=== PATIENT | male | born 1950 | race Caucasian/White ===

== ENCOUNTER 2017-12-12 15:02 | Inpatient (IN) | payer MEDICARE, OTHER ==
[2017-12-12] VITALS (9 sets, daily range): BP systolic 92–197; BP diastolic 57–114
[~2017-12-12] VITALS: Ht 180.3 cm; Wt 79.9 kg
[~2017-12-12 15:02] MED LIST: ASP325T; ATN50T; ENLP5T; FLC1T; MULT1TAB63; POTASSIUM; RNT150T
[2017-12-12] MEDS ORDERED: fentaNYL INJECTION 100 MCG/2 ML AMP IVP STA ×3 (15:20→17:08)
--- OUTSIDE RECORDS SUMMARY | 2017-12-12 15:23 | XMS REPORT | Continuity of Care Document ---
Author Author [facility] Organization [facility] Address Unknown Phone Unavailable Allergies There is no data. Medications There is no data. Problems There is no data. Procedures There is no data. Results There is no data. Encounters ACCT No. Visit Date/Time Discharge Status Pt. Type Provider Facility Loc./Unit Complaint [id number] 01/02/2014 08:42:00 01/02/2014 23:59:59 CLS Outpatient
[2017-12-12] MEDS ORDERED: IOHEXOL 350 MG/ML 100 ML (OMNIPAQUE 350) VIAL IV ONE (16:00)
[2017-12-12] MEDS ORDERED: NS 250 ML (IVPB) BAG IV ONE (16:00)
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
[2017-12-12 16:35] LABS: HEMOGLOBIN 11.6 G/DL (13.3-17.7); MEAN PLATELET VOLUME 8.4 FL (7.4-10.4); RED BLOOD COUNT 3.5 10^6/uL (4.35-5.85); RED CELL DISTRIBUTION WIDTH 12.8 % (10.0-14.5); WHITE BLOOD COUNT 8.7 10^3/uL (4.3-11.0)
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
[2017-12-12] MEDS ORDERED: TETANUS,DIPTH,PERTUSS P/F (BOOSTRIX) 0.5 ML VIAL IM ONE (16:45)
[2017-12-12 16:52] LABS: FIBRIN DEGRADATION PRODUCTS 6.09 UG/ML (0.00-0.49); PROTHROMBIN TIME PATIENT 13.4 SEC (12.2-14.7)
[2017-12-12 16:54] LABS: ALANINE AMINOTRANSFERASE 18 U/L (0-55); ALBUMIN 3.8 GM/DL (3.2-4.5); ALKALINE PHOSPHATASE 48 U/L (40-136); BILIRUBIN,DIRECT 0.2 MG/DL (0.0-0.3); BILIRUBIN,INDIRECT 0.3 MG/DL; BILIRUBIN,TOTAL 0.5 MG/DL (0.1-1.0); BUN/CREATININE RATIO 8; CARBON DIOXIDE 25 MMOL/L (21-32); CHLORIDE 105 MMOL/L (98-107); CREATINE KINASE 195 U/L (30-200); CREATININE SERUM 1.32 MG/DL (0.60-1.30); GFR ESTIMATED 54; GLUCOSE 133 MG/DL (70-105); MAGNESIUM 2.2 MG/DL (1.8-2.4); PHOSPHORUS 3.8 MG/DL (2.3-4.7); POTASSIUM 4.6 MMOL/L (3.6-5.0); SODIUM 138 MMOL/L (135-145); TOTAL PROTEIN 6.1 GM/DL (6.4-8.2)
[2017-12-12] MEDS ORDERED: NS IV 1000 ML 1,000 ML ONE (17:44)
[2017-12-12] MEDS ORDERED: NS IV 1000 ML 1,000 ML IV ONE (17:47)
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
[2017-12-12] MEDS ORDERED: SUFENTA 0.6MCG/ML BUPIVA 0.125 100 ML ONE (18:13)
[2017-12-12] MEDS ORDERED: LACTATED RINGERS 1,000 ML IV ONE (18:36)
[2017-12-12] MEDS ORDERED: LIDOCAINE PF 2% 5 ML (XYLOCAINE) VIAL ONE ×2 (18:42)
[2017-12-12] MEDS ORDERED: METOCLOPRAMIDE INJ 10 MG/2 ML (REGLAN) IV PRN (18:45)
[2017-12-12] MEDS ORDERED: diphenhydrAMINE 50 MG/ML INJ (BENADRYL) IV PRN (18:45)
[2017-12-12] MEDS ORDERED: NALOXONE 0.4 MG/ML 1 ML (NARCAN) VIAL IV PRN ×2 (18:45)
[2017-12-12] MEDS: D5 1/2 NS W/KCL 20 MEQ/L 1,000 ML IV SCH (18:54)
[2017-12-12] MEDS ORDERED: CATHETER FLUSH 10 ML SYR IV PRN (19:00)
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
[2017-12-12] MEDS ORDERED: LIDOCAINE UROJET 2% GEL 10 ML PKG ONE (21:04)
[2017-12-12] MEDS: RT-ALBUTEROL SULF 2.5 MG/3 ML PRE-MIX VIAL INH SCH (21:15)
[2017-12-12] MEDS: MUPIROCIN 2% OINT 22 GM (BACTROBAN) TUBE TOP SCH (21:15)
[2017-12-12] MEDS ORDERED: NS IV 1000 ML 1,000 ML IV SCH (22:00)
[2017-12-13] VITALS (15 sets, daily range): BP systolic 128–176; BP diastolic 68–103
[2017-12-13] MEDS: RT-ALBUTEROL SULF 2.5 MG/3 ML PRE-MIX VIAL INH SCH ×6 (01:44→21:37)
[2017-12-13] MEDS ORDERED: HYDROcodone/APAP 5 MG/325 MG (LORTAB) TAB ONE (01:59)
[2017-12-13] MEDS: D5 1/2 NS W/KCL 20 MEQ/L 1,000 ML IV SCH ×2 (02:06→15:35)
[2017-12-13] MEDS: fentaNYL INJECTION 100 MCG/2 ML AMP IV PRN ×3 (02:08→21:49)
[2017-12-13] MEDS: HYDROcodone/APAP 5 MG/325 MG (LORTAB) TAB PO PRN ×4 (02:08→21:44)
[2017-12-13] MEDS: EPIDURAL (SUFENTA 0.6MCG/ML BUPIVA 0.125%) 100 ML BAG EPI PRN ×3 (04:02→21:22)
[2017-12-13 04:12] LABS: BASOPHILS % (AUTO) 0 % (0-10); EOSINOPHILS # (AUTO) 0.1 10^3/uL (0.0-0.3); EOSINOPHILS % (AUTO) 1 % (0-10); HEMATOCRIT 33 % (40-54); HEMOGLOBIN 11.1 G/DL (13.3-17.7); LYMPHOCYTES # (AUTO) 2.1 X 10^3 (1.0-4.0); LYMPHOCYTES % (AUTO) 22 % (12-44); MEAN CORPUSCULAR HEMOGLOBIN 33 PG (25-34); MEAN CORPUSCULAR HGB CONC 34 G/DL (32-36); MEAN CORPUSCULAR VOLUME 97 FL (80-99); MEAN PLATELET VOLUME 7.5 FL (7.4-10.4); MONOCYTES # (AUTO) 0.9 X 10^3 (0.0-1.0); MONOCYTES % (AUTO) 10 % (0-12); NEUTROPHILS # (AUTO) 6.3 X 10^3 (1.8-7.8); NEUTROPHILS % (AUTO) 67 % (42-75); PLATELET COUNT 272 10^3/uL (130-400); RED CELL DISTRIBUTION WIDTH 13.1 % (10.0-14.5); WHITE BLOOD COUNT 9.5 10^3/uL (4.3-11.0)
[2017-12-13 04:38] LABS: BUN/CREATININE RATIO 10; CALCIUM 8.5 MG/DL (8.5-10.1); CARBON DIOXIDE 22 MMOL/L (21-32); CHLORIDE 110 MMOL/L (98-107); CREATININE SERUM 0.79 MG/DL (0.60-1.30); GFR ESTIMATED > 60; GLUCOSE 116 MG/DL (70-105); MAGNESIUM 2.2 MG/DL (1.8-2.4); PHOSPHORUS 2.7 MG/DL (2.3-4.7); SODIUM 139 MMOL/L (135-145)
[2017-12-13] MEDS: KCL 20 MEQ TAB (K-DUR) PO SCH (05:30)
[2017-12-13] MEDS: POTASSIUM CL 10MEQ/50ML IVPB 50 ML IV SCH (05:30)
[2017-12-13] MEDS: MAGNESIUM 1 GM/100 ML IVPB 100 ML IV SCH (05:30)
[2017-12-13] MEDS ORDERED: FLU QUADRIvalent (5+ YOA) 2018-2019 (AFLURIA) 0.5 ML IM ONE (07:15)
--- NOTE | 2017-12-13 07:58 | Diagnostic Imaging Report ---
INDICATION: Followup rib fractures. COMPARISON: CT chest from 12/12/2017. FINDINGS: The left fourth through ninth rib fractures reported on CT scan are not visualized on the current portable chest. Both lungs are well-aerated. No pneumothorax or pleural effusions have developed. Heart is mildly enlarged. Median sternotomy changes are noted. No evidence of pulmonary edema. IMPRESSION: Noted left rib fractures on CT scan not visualized on the current portable chest. No evidence of associated complication with lungs well-aerated and clear. Dictated by: Dictated on workstation # [id number]
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
[2017-12-13] MEDS: MUPIROCIN 2% OINT 22 GM (BACTROBAN) TUBE TOP SCH ×2 (09:18→21:23)
[2017-12-13] MEDS ORDERED: CYCL10TA9 PO (10:52)
[2017-12-13] MEDS ORDERED: MULT1TAB69 PO (10:52)
[2017-12-13] MEDS ORDERED: ASPI-983 PO (10:52)
[2017-12-13] MEDS ORDERED: LOSA50TA7 PO (10:52)
[2017-12-13] MEDS ORDERED: SIMV40TA4 PO (11:28)
[2017-12-13] MEDS ORDERED: TAMS0.4C98 PO (11:28)
[2017-12-13] MEDS ORDERED: GABA-488 PO (11:28)
[2017-12-13] MEDS ORDERED: RT-ALBUINH IH (11:28)
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
[2017-12-13] MEDS: ONDANSETRON 4 MG/2 ML (SDV) Z0FRAN IV PRN (19:56)
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
[2017-12-14] VITALS (24 sets, daily range): BP systolic 87–177; BP diastolic 63–106
[2017-12-14] MEDS: RT-ALBUTEROL SULF 2.5 MG/3 ML PRE-MIX VIAL INH SCH ×6 (02:34→22:09)
[2017-12-14] MEDS: HYDROcodone/APAP 5 MG/325 MG (LORTAB) TAB PO PRN ×5 (02:49→23:56)
[2017-12-14] MEDS: fentaNYL INJECTION 100 MCG/2 ML AMP IV PRN ×10 (02:50→23:56)
[2017-12-14 04:16] LABS: BASOPHILS % (AUTO) 0 % (0-10); EOSINOPHILS # (AUTO) 0.4 10^3/uL (0.0-0.3); EOSINOPHILS % (AUTO) 4 % (0-10); HEMATOCRIT 32 % (40-54); HEMOGLOBIN 10.9 G/DL (13.3-17.7); LYMPHOCYTES # (AUTO) 2.2 X 10^3 (1.0-4.0); LYMPHOCYTES % (AUTO) 22 % (12-44); MEAN CORPUSCULAR HEMOGLOBIN 33 PG (25-34); MEAN CORPUSCULAR HGB CONC 34 G/DL (32-36); MEAN CORPUSCULAR VOLUME 98 FL (80-99); MEAN PLATELET VOLUME 8.1 FL (7.4-10.4); MONOCYTES % (AUTO) 10 % (0-12); NEUTROPHILS # (AUTO) 6.5 X 10^3 (1.8-7.8); NEUTROPHILS % (AUTO) 64 % (42-75); PLATELET COUNT 243 10^3/uL (130-400); RED BLOOD COUNT 3.26 10^6/uL (4.35-5.85); WHITE BLOOD COUNT 10.3 10^3/uL (4.3-11.0)
[2017-12-14 04:35] LABS: BUN/CREATININE RATIO 9; CALCIUM 8.3 MG/DL (8.5-10.1); CARBON DIOXIDE 22 MMOL/L (21-32); CHLORIDE 106 MMOL/L (98-107); GFR ESTIMATED > 60; GLUCOSE 108 MG/DL (70-105); MAGNESIUM 1.9 MG/DL (1.8-2.4); PHOSPHORUS 2.7 MG/DL (2.3-4.7); POTASSIUM 3.8 MMOL/L (3.6-5.0); SODIUM 136 MMOL/L (135-145)
[2017-12-14] MEDS: D5 1/2 NS W/KCL 20 MEQ/L 1,000 ML IV SCH (05:06)
[2017-12-14] MEDS: EPIDURAL (SUFENTA 0.6MCG/ML BUPIVA 0.125%) 100 ML BAG EPI PRN ×3 (06:27→23:57)
[2017-12-14] MEDS: MAGNESIUM 1 GM/100 ML IVPB 100 ML IV SCH (06:35)
[2017-12-14] MEDS: POTASSIUM CL 10MEQ/50ML IVPB 50 ML IV SCH (06:35)
[2017-12-14] MEDS: KCL 20 MEQ TAB (K-DUR) PO SCH (06:36)
--- NOTE | 2017-12-14 07:52 | Diagnostic Imaging Report ---
INDICATION: Rib fractures. FINDINGS: The lungs are clear. The heart and vascularity are normal. Sternal wires midline. Old deformity to the right clavicle, chronic. No effusion or pneumothorax. No free air beneath the diaphragm. IMPRESSION: No acute appearing abnormality. Dictated by: Dictated on workstation # [id number]
[2017-12-14] MEDS: MUPIROCIN 2% OINT 22 GM (BACTROBAN) TUBE TOP SCH ×2 (08:08→22:28)
--- NOTE | 2017-12-14 08:35 | Anesthesia Pain Mgmt-Epidural ---
Anesthesia-Pain Mgmnt Epidural Pre-Procedure Indication: Analgesia Chart Review and Risk/Benefits/Options Discussed Procedure Epidural: Continuous Block: Continuous Conditon: Good pain control Catheter Removed: Site clean Date of Service: Dec 14, 2017 Time of Service: 08:35 TIMA ZAMORA CRNA Dec 14, 2017 08:35
--- NOTE | 2017-12-14 09:41 | Physical Therapy Daily Note ---
PT Daily Note-Current Subjective Per RN, patient is not to perform OOB activity due to epidural. Patient agrees to exercises. Pain Numeric Pain Scale: 5-Moderate Pain Location: Right, Left Location Body Site: Side Pain Description: Pressure, Acute Mental Status Patient Orientation: Normal For Age Attachments: Oxygen, IV Transfers Functional [place] Measure 0=Not Assessed/NA 4=Minimal Assistance 1=Total Assistance 5=Supervision or Setup 2=Maximal Assistance 6=Modified [place] 3=Moderate Assistance 7=Complete IndependenceIRFPAI Quality Coding Scale 6 Independent with activity with or without an assistive device 5 Patient requires set up or clean up by helper. Patient completes activity by themselves 4 Supervision or touching assist (CGA). Dike provide cues , steadying assist 3 The helper provides less than half the effort to complete the activity 2 The helper provides more than half the effort to complete the activity 1 Dependent. The helper does all the effort to complete an activity 7 Patient refused to complete or attempt activity 9 The patient did not perform the activity before the current illness or injury 88 Not attempted due to Medical conditions or safety concerns Transfers (B, C, W/C) (FIM): 2 Scootin patient did assist with bed mobility to reposition. Exercises Supine Ex: Ankle pumps, Quad Set, Glut sets, Heel Slides, Straight leg raise, Hip abd/add Supine Reps: 15 (bilaterally) Assessment Patient was on RA upon PT arrival. SAO2 decreased to 85% on RA with exercises. PT placed O2 3L NC on patient with recovery to 95% after 1.5 min. RN notified. PT Short Term Goals Short Term Goals Time Frame: Dec 20, 2017 Transfers (B,C,W/C) (FIM): 5 Gait (FIM): 5 Gait Distance Comment: 150' Gait Level of Assist: 5 Gait Assistive Device: None PT Plan Treatment/Plan Treatment Plan: Continue Plan of Care Treatment Plan: Bed Mobility, Education, Functional Activity Yoanna, Functional Strength, Gait, Safety, Therapeutic Exercise, Transfers Treatment Duration: Dec 20, 2017 Frequency: 6 times per week Estimated Hrs Per Day: .25 hour per day (15-30') Patient and/or Family Agrees t: Yes Time/GCodes Time In: 841 Time Out: 906 Total Billed Treatment Time: 15 Total Billed Treatment 1 visit EX x 2 25 min KALLIE TOMLINSON PT Dec 14, 2017 09:40
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
[2017-12-14] MEDS ORDERED: LIDOCAINE PF 2% 5 ML (XYLOCAINE) VIAL ONE (14:24)
--- NOTE | 2017-12-14 14:54 | Progress Note-Standard ---
Standard Progress Note Progress Notes/Assess & Plan Date Seen by a Provider: Dec 14, 2017 Time Seen by a Provider: 14:42 Final Diagnosis Pt complaining of break thru pain. Dosed TEA cath with 10ml of 2% lidocaine. Parrish well. Report to RN. Focused Exam Lactate Level 12/12/17 15:10: Lactic Acid Level 0.86 TIMA ZAMORA CRNA Dec 14, 2017 14:54
[2017-12-14] MEDS ORDERED: NS IV 500 ML 500 ML ONE (14:56)
[2017-12-14] MEDS ORDERED: NS IV 1000 ML 500 ML IV ONE (15:00)
[2017-12-14] MEDS: ONDANSETRON 4 MG/2 ML (SDV) Z0FRAN IV PRN (15:03)
[2017-12-14] MEDS: CALCIUM CARBONATE 500 MG (TUMS) TAB.CHEW PO PRN (19:30)
[2017-12-14] MEDS ORDERED: HYDROmorphone 2 MG/ML VIAL (DILAUDID) IV PRN (21:45)
[2017-12-14] MEDS ORDERED: ALPRAZolam 0.5 MG (XANAX) TAB PO ONE (21:45)
[2017-12-14] MEDS: CYCLOBENZAPRINE 10 MG (FLEXERIL) TAB PO SCH (22:27)
[2017-12-15] VITALS (18 sets, daily range): BP systolic 104–182; BP diastolic 63–102
[2017-12-15] MEDS: CALCIUM CARBONATE 500 MG (TUMS) TAB.CHEW PO PRN (00:21)
[2017-12-15] MEDS ORDERED: PANTOPRAZOLE 40 MG (PROTONIX) TAB PO ONE (00:55)
[2017-12-15] MEDS: fentaNYL INJECTION 100 MCG/2 ML AMP IV PRN ×8 (01:04→23:52)
[2017-12-15] MEDS: RT-ALBUTEROL SULF 2.5 MG/3 ML PRE-MIX VIAL INH SCH ×6 (02:22→20:52)
[2017-12-15 03:24] LABS: BASOPHILS % (AUTO) 0 % (0-10); EOSINOPHILS # (AUTO) 0.5 10^3/uL (0.0-0.3); EOSINOPHILS % (AUTO) 6 % (0-10); HEMATOCRIT 33 % (40-54); LYMPHOCYTES # (AUTO) 2.1 X 10^3 (1.0-4.0); LYMPHOCYTES % (AUTO) 22 % (12-44); MEAN CORPUSCULAR HEMOGLOBIN 33 PG (25-34); MEAN CORPUSCULAR HGB CONC 33 G/DL (32-36); MEAN CORPUSCULAR VOLUME 99 FL (80-99); MONOCYTES % (AUTO) 11 % (0-12); NEUTROPHILS # (AUTO) 5.7 X 10^3 (1.8-7.8); NEUTROPHILS % (AUTO) 61 % (42-75); PLATELET COUNT 244 10^3/uL (130-400); RED BLOOD COUNT 3.38 10^6/uL (4.35-5.85); RED CELL DISTRIBUTION WIDTH 13.2 % (10.0-14.5); WHITE BLOOD COUNT 9.3 10^3/uL (4.3-11.0)
[2017-12-15] MEDS: HYDROcodone/APAP 5 MG/325 MG (LORTAB) TAB PO PRN ×2 (03:24→19:44)
[2017-12-15] MEDS: PANTOPRAZOLE 40 MG (PROTONIX) TAB PO SCH ×2 (03:25→21:47)
[2017-12-15 04:00] LABS: BUN/CREATININE RATIO 9; CALCIUM 8.8 MG/DL (8.5-10.1); CARBON DIOXIDE 26 MMOL/L (21-32); CHLORIDE 101 MMOL/L (98-107); CREATININE SERUM 0.68 MG/DL (0.60-1.30); GFR ESTIMATED > 60; GLUCOSE 117 MG/DL (70-105); MAGNESIUM 1.9 MG/DL (1.8-2.4); PHOSPHORUS 2.7 MG/DL (2.3-4.7); POTASSIUM 4.4 MMOL/L (3.6-5.0); SODIUM 133 MMOL/L (135-145)
[2017-12-15] MEDS: CYCLOBENZAPRINE 10 MG (FLEXERIL) TAB PO SCH ×3 (06:17→21:47)
[2017-12-15] MEDS: D5 1/2 NS W/KCL 20 MEQ/L 1,000 ML IV SCH ×3 (06:18→21:54)
[2017-12-15] MEDS: POTASSIUM CL 10MEQ/50ML IVPB 50 ML IV SCH ×2 (06:27→23:45)
[2017-12-15] MEDS: MAGNESIUM 1 GM/100 ML IVPB 100 ML IV SCH ×2 (06:28→23:45)
[2017-12-15] MEDS: KCL 20 MEQ TAB (K-DUR) PO SCH (06:28)
--- NOTE | 2017-12-15 07:08 | Diagnostic Imaging Report ---
INDICATION: Dyspnea. COMPARISON: 12/14/2017 FINDINGS: Single frontal view of the chest demonstrates normal heart size and pulmonary vascularity. The lungs are well aerated and clear. No large pleural effusion or pneumothorax is seen. The visualized osseous structures show no acute abnormalities. Sternotomy wires are again noted. IMPRESSION: 1. No acute cardiopulmonary process. Dictated by: Dictated on workstation # [id number]
[2017-12-15] MEDS: MUPIROCIN 2% OINT 22 GM (BACTROBAN) TUBE TOP SCH ×2 (08:00→21:48)
[2017-12-15] MEDS: EPIDURAL (SUFENTA 0.6MCG/ML BUPIVA 0.125%) 100 ML BAG EPI PRN (08:39)
--- NOTE | 2017-12-15 09:27 | Physical Therapy Daily Note ---
PT Daily Note-Current Subjective Patient agrees to PT. Continues to c/o acid reflux. PT issued a Coke which, per patient, helped. Pain Numeric Pain Scale: 5-Moderate Pain Location: Left Location Body Site: Side Pain Description: Acute Mental Status Patient Orientation: Normal For Age Attachments: Oxygen, Myers Catheter, IV Transfers Functional [place] Measure 0=Not Assessed/NA 4=Minimal Assistance 1=Total Assistance 5=Supervision or Setup 2=Maximal Assistance 6=Modified [place] 3=Moderate Assistance 7=Complete IndependenceIRFPAI Quality Coding Scale 6 Independent with activity with or without an assistive device 5 Patient requires set up or clean up by helper. Patient completes activity by themselves 4 Supervision or touching assist (CGA). Steger provide cues , steadying assist 3 The helper provides less than half the effort to complete the activity 2 The helper provides more than half the effort to complete the activity 1 Dependent. The helper does all the effort to complete an activity 7 Patient refused to complete or attempt activity 9 The patient did not perform the activity before the current illness or injury 88 Not attempted due to Medical conditions or safety concerns Transfers (B, C, W/C) (FIM): 5 Scootin Rollin Supine to/from Sit: 5 Sit to/from Stand: 5 Bed to/from Chair: 5 sit to stand x 4 sets all SBA with mobility Gait Training Gait (FIM): 1 Distance (FIM): 1=up to 49 ft Distance: 10' Gait Level of Assist: 5 Gait Assistive Device: FWW slow, steady, functional Exercises Seated Therapy Exercises: Ankle pumps, Long arc quads Seated Reps: 15 Assessment PT educated patient on utilizing a pillow hug to cough to increase SAO2 . PT did have to increase O2 to 3L to maintain 90% SAO2 with activity. PT Short Term Goals Short Term Goals Time Frame: Dec 20, 2017 Transfers (B,C,W/C) (FIM): 5 Gait (FIM): 5 Gait Distance Comment: 150' Gait Level of Assist: 5 Gait Assistive Device: None PT Plan Treatment/Plan Treatment Plan: Continue Plan of Care Treatment Plan: Bed Mobility, Education, Functional Activity Yoanna, Functional Strength, Gait, Safety, Therapeutic Exercise, Transfers Treatment Duration: Dec 20, 2017 Frequency: 6 times per week Estimated Hrs Per Day: .25 hour per day (15-30') Patient and/or Family Agrees t: Yes Time/GCodes Time In: 825 Time Out: 853 Total Billed Treatment Time: 28 Total Billed Treatment 1 visit FA x 2 28 min KALLIE TOMLINSON PT Dec 15, 2017 09:27
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
[2017-12-15] MEDS ORDERED: RT-ALBUTEROL SULF 2.5 MG/3 ML PRE-MIX VIAL INH PRN (12:00)
[2017-12-15] MEDS: DOCUSATE SODIUM 100 MG (COLACE) CAP PO SCH ×2 (12:39→21:47)
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
--- NOTE | 2017-12-15 16:27 | Progress Note-Standard ---
Standard Progress Note Progress Notes/Assess & Plan Date Seen by a Provider: Dec 15, 2017 Time Seen by a Provider: 15:05 Progress/Assessment & Plan Epidural Catheter removed without difficulty, Tip intact. DARIUS BENITEZ CRNA Dec 15, 2017 16:27
[2017-12-15] MEDS: POLYETHYLENE GLYCOL 17 GM (MIRALAX) PACK PO SCH (21:48)
[2017-12-16] VITALS (7 sets, daily range): BP systolic 145–196; BP diastolic 83–94
[2017-12-16] MEDS: RT-ALBUTEROL SULF 2.5 MG/3 ML PRE-MIX VIAL INH SCH ×6 (01:03→22:28)
[2017-12-16] MEDS ORDERED: morphine INJ 4 MG/ML 1 ML (VIAL/SYRINGE) ONE (01:27)
[2017-12-16] MEDS: morphine INJ 4 MG/ML 1 ML (VIAL/SYRINGE) IVP PRN ×3 (01:34→09:19)
[2017-12-16] MEDS: HYDROcodone/APAP 5 MG/325 MG (LORTAB) TAB PO PRN ×4 (03:45→20:36)
[2017-12-16 03:56] LABS: BASOPHILS % (AUTO) 0 % (0-10); EOSINOPHILS # (AUTO) 0.5 10^3/uL (0.0-0.3); EOSINOPHILS % (AUTO) 5 % (0-10); HEMATOCRIT 32 % (40-54); HEMOGLOBIN 11.2 G/DL (13.3-17.7); LYMPHOCYTES # (AUTO) 1.4 X 10^3 (1.0-4.0); LYMPHOCYTES % (AUTO) 17 % (12-44); MEAN CORPUSCULAR HEMOGLOBIN 34 PG (25-34); MEAN CORPUSCULAR HGB CONC 35 G/DL (32-36); MEAN CORPUSCULAR VOLUME 97 FL (80-99); MEAN PLATELET VOLUME 8.6 FL (7.4-10.4); MONOCYTES # (AUTO) 0.9 X 10^3 (0.0-1.0); MONOCYTES % (AUTO) 10 % (0-12); NEUTROPHILS # (AUTO) 5.6 X 10^3 (1.8-7.8); NEUTROPHILS % (AUTO) 67 % (42-75); PLATELET COUNT 234 10^3/uL (130-400); RED CELL DISTRIBUTION WIDTH 12.7 % (10.0-14.5); WHITE BLOOD COUNT 8.4 10^3/uL (4.3-11.0)
[2017-12-16 04:19] LABS: BUN/CREATININE RATIO 11; CALCIUM 8.7 MG/DL (8.5-10.1); CARBON DIOXIDE 25 MMOL/L (21-32); CHLORIDE 98 MMOL/L (98-107); CREATININE SERUM 0.63 MG/DL (0.60-1.30); GFR ESTIMATED > 60; GLUCOSE 116 MG/DL (70-105); MAGNESIUM 1.8 MG/DL (1.8-2.4); PHOSPHORUS 3.4 MG/DL (2.3-4.7); POTASSIUM 4.3 MMOL/L (3.6-5.0); SODIUM 132 MMOL/L (135-145)
[2017-12-16] MEDS: KCL 20 MEQ TAB (K-DUR) PO SCH (06:35)
[2017-12-16] MEDS: CYCLOBENZAPRINE 10 MG (FLEXERIL) TAB PO SCH ×3 (06:44→20:35)
--- NOTE | 2017-12-16 08:06 | Diagnostic Imaging Report ---
EXAM: CHEST 1 VIEW, AP/PA ONLY INDICATION: Dyspnea. COMPARISON: Chest radiograph 12/15/2017. FINDINGS: Normal heart size and central pulmonary vascularity. No dense consolidation, pleural effusion or pneumothorax. Calcified aorta. Sternotomy. No acute osseous findings. IMPRESSION: No acute cardiopulmonary findings. Dictated by: Dictated on workstation # [id number]
--- NOTE | 2017-12-16 08:57 | Physical Therapy Daily Note ---
PT Daily Note-Current Subjective States that he is feeling okay. Pain Numeric Pain Scale: 1 Transfers Functional [place] Measure 0=Not Assessed/NA 4=Minimal Assistance 1=Total Assistance 5=Supervision or Setup 2=Maximal Assistance 6=Modified [place] 3=Moderate Assistance 7=Complete IndependenceIRFPAI Quality Coding Scale 6 Independent with activity with or without an assistive device 5 Patient requires set up or clean up by helper. Patient completes activity by themselves 4 Supervision or touching assist (CGA). [place] provide cues , steadying assist 3 The helper provides less than half the effort to complete the activity 2 The helper provides more than half the effort to complete the activity 1 Dependent. The helper does all the effort to complete an activity 7 Patient refused to complete or attempt activity 9 The patient did not perform the activity before the current illness or injury 88 Not attempted due to Medical conditions or safety concerns Transfers (B, C, W/C) (FIM): 5 Scootin Rollin Supine to/from Sit: 5 Sit to/from Stand: 5 Gait Training Gait (FIM): 5 Distance (FIM): 6=296-84 ft Distance: 50' Gait Level of Assist: 5 Gait Persons Needed: 1 Gait Assistive Device: FWW Assessment Current Status: Good Progress Patient had increased pain and increased SOB during gait. PT Short Term Goals Short Term Goals Time Frame: Dec 20, 2017 Transfers (B,C,W/C) (FIM): 5 Gait (FIM): 5 Gait Distance Comment: 150' Gait Level of Assist: 5 Gait Assistive Device: None PT Plan Treatment/Plan Treatment Plan: Continue Plan of Care Treatment Plan: Bed Mobility, Education, Functional Activity Yoanna, Functional Strength, Gait, Safety, Therapeutic Exercise, Transfers Treatment Duration: Dec 20, 2017 Frequency: 6 times per week Estimated Hrs Per Day: .25 hour per day (15-30') Patient and/or Family Agrees t: Yes Time/GCodes Time In: 0825 Time Out: 0850 Total Billed Treatment Time: 25 Total Billed Treatment 1, GT x 15', FA x 10' G Codes Necessary: JONATHON Huertas PT Dec 16, 2017 08:57
[2017-12-16] MEDS: MUPIROCIN 2% OINT 22 GM (BACTROBAN) TUBE TOP SCH ×2 (09:15→20:38)
[2017-12-16] MEDS: POLYETHYLENE GLYCOL 17 GM (MIRALAX) PACK PO SCH ×2 (09:16→20:37)
[2017-12-16] MEDS: PANTOPRAZOLE 40 MG (PROTONIX) TAB PO SCH ×2 (09:16→20:35)
[2017-12-16] MEDS: DOCUSATE SODIUM 100 MG (COLACE) CAP PO SCH ×2 (09:16→20:35)
[2017-12-16] MEDS: D5 1/2 NS W/KCL 20 MEQ/L 1,000 ML IV SCH (11:10)
[2017-12-16] MEDS ORDERED: CYCLOBENZAPRINE 10 MG (FLEXERIL) TAB PO PRN (11:15)
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
[2017-12-16] MEDS: CALCIUM CARBONATE 500 MG (TUMS) TAB.CHEW PO PRN (11:29)
[2017-12-16] MEDS: ALPRAZolam 0.25 MG (XANAX) TAB PO PRN (12:58)
[2017-12-16] MEDS ORDERED: KETOROLAC 30 MG/ML VIAL IVP ONE (17:00)
[2017-12-17] MEDS: D5 1/2 NS W/KCL 20 MEQ/L 1,000 ML IV SCH (00:39)
[2017-12-17 00:59] VITALS: BP 144/91
[2017-12-17] MEDS: HYDROcodone/APAP 5 MG/325 MG (LORTAB) TAB PO PRN ×2 (02:40→09:34)
[2017-12-17] MEDS: RT-ALBUTEROL SULF 2.5 MG/3 ML PRE-MIX VIAL INH SCH ×3 (02:43→10:55)
[2017-12-17 04:17] VITALS: BP 164/88
[2017-12-17] MEDS: ALPRAZolam 0.25 MG (XANAX) TAB PO PRN (05:23)
[2017-12-17] MEDS: CYCLOBENZAPRINE 10 MG (FLEXERIL) TAB PO SCH (05:23)
--- NOTE | 2017-12-17 06:52 | Diagnostic Imaging Report ---
INDICATION: Dyspnea. COMPARISON: 12/16/2017 FINDINGS: Single frontal radiographic view of the chest was obtained and shows normal cardiac silhouette and pulmonary vasculature. There is calcified aortic atherosclerosis. Sternotomy wires are noted. Lateral right lung base is not entirely included on this exam, but included portions of the lungs are clear. There is no focal consolidation, large effusion, nor pneumothorax. Bony structures show no gross abnormalities. IMPRESSION: 1. No acute cardiopulmonary process. Dictated by: Dictated on workstation # [id number]
[2017-12-17 08:00] VITALS: BP 169/92
[2017-12-17] MEDS: DOCUSATE SODIUM 100 MG (COLACE) CAP PO SCH (08:34)
[2017-12-17] MEDS: PANTOPRAZOLE 40 MG (PROTONIX) TAB PO SCH (08:35)
[2017-12-17] MEDS: POLYETHYLENE GLYCOL 17 GM (MIRALAX) PACK PO SCH (08:35)
[2017-12-17] MEDS: MUPIROCIN 2% OINT 22 GM (BACTROBAN) TUBE TOP SCH (08:40)
[2017-12-17] MEDS ORDERED: ACHD5005 PO (10:13)
[2017-12-17] MEDS ORDERED: DOCU-143 PO (10:13)
[2017-12-17] MEDS ORDERED: CYCL10TA9 PO (10:13)
--- NOTE | 2017-12-17 10:16 | Discharge Inst-Simple/Standard ---
Discharge Inst-Standard Discharge Medications New, Converted or Re-Newed RX: RX on Chart Patient Instructions/Follow Up Plan of Care/Instructions/FU: 2 weeks Nohemi Activity as Tolerated: No Discharge Diet: Regular Diet Other Inst to Patient Follow up Appt: Make appointment for 2 week. Instructions: No lifting greater than 10 pounds. No strenuous activity. May shower. Use incentive spirometer at home as directed. No Smoking Symptoms to Report: Appetite Changes, Extremity Discoloration, Numbness/Tingling, Swelling Increased , Bleeding Excessive, Eyesight Changes, Pain Increased, Urine Color Change, Constipation(Persistent), Fever over 101 degree F, Pain/Pressure in chest, Urinating Difficulty, Cough Up/Vomit Blood, Heart Beat Irreg/Pounding, Pain/ Pressure in jaw, Vaginal Bleeding Increase, Cramps in feet or legs, Lightheadedness, Pain/Pressure in shoulder, Diarrhea(Persistent), Memory Changes Suddenly, Questions/Concerns, Weight gain consecutive days, Dizziness/ Fainting, Nausea/Vomiting, Shortness of Breath, Weight gain over 2 pounds If questions or concerns contact your physician Or seek help at emergency department. Planned Outpatient Orders/Ref. Pneu Vac Indicated: Yes PEPITO PIERRE DO Dec 17, 2017 10:16
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
[2017-12-17 12:00] VITALS: BP 174/98
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
== END 2017-12-17 12:15 | disposition home or self-care (01) | DRG 185 ==
LOC: ER 15:03 → EDUNIT# 15:18 → ER 15:20 → ICU 17:00 → 4TH 12-15 15:10
PROVIDERS: ADMIT Surgery; ATTEND Surgery
PROC: 00HU33Z Insertion of Infusion Device into Spinal Canal, Percutaneous Approach (ICD-10-PCS; principal; 2017-12-14)
DX: S22.42XA Multiple fractures of ribs, left side, initial encounter for closed fracture (principal); S01.312A Laceration without foreign body of left ear, initial encounter; S00.81XA Abrasion of other part of head, initial encounter; S39.012A Strain of muscle, fascia and tendon of lower back, initial encounter; S16.1XXA Strain of muscle, fascia and tendon at neck level, initial encounter; S29.002A Unspecified injury of muscle and tendon of back wall of thorax, initial encounter; S00.83XA Contusion of other part of head, initial encounter; Z23 Encounter for immunization; J43.9 Emphysema, unspecified; R40.2412 Glasgow coma scale score 13-15, at arrival to emergency department; I25.10 Atherosclerotic heart disease of native coronary artery without angina pectoris; I10 Essential (primary) hypertension; E78.00 Pure hypercholesterolemia, unspecified; M54.2 Cervicalgia; K21.9 Gastro-esophageal reflux disease without esophagitis; K58.9 Irritable bowel syndrome, unspecified; F41.9 Anxiety disorder, unspecified; F32.9 Major depressive disorder, single episode, unspecified; V44.5XXA Car driver injured in collision with heavy transport vehicle or bus in traffic accident, initial encounter; Z87.891 Personal history of nicotine dependence; Z95.1 Presence of aortocoronary bypass graft
CPT/HCPCS: 36415; 70450; 70486; 71045; 71260; 72125; 72128; 72131; 72170; 74177; 80048; 80076; 80320; 82550; 83605; 83735; 84100; 84484; 85025; 85027; 85379; 85384; 85610; 85730; 86850; 86900; 86901; 86920; 90471; 90715; 93005; 93041; 94640; 94664; 94760; 96361; 96374; 96376

== ENCOUNTER → 2018-08-01 | Outpatient (CLI) | payer MEDICARE, OTHER ==
[~2018-08-01] MED LIST changes: +ACHD5005 PO; +ASPI-983 PO; +CYCL10TA9 PO; +DOCU-143 PO; +GABA-488 PO; +LOSA50TA63 PO; +MULT1TAB69 PO; +RT-ALBUINH IH; +SIMV40TA4 PO; +TAMS0.4C98 PO
== END ==
LOC: ORTHO 10:19
PROVIDERS: ATTEND Orthopaedic Surgery
DX: M50.31 Other cervical disc degeneration, high cervical region (principal)
CPT/HCPCS: 99203

== ENCOUNTER 2019-08-16 02:35 | Inpatient (IN) | payer MEDICARE ==
[~2019-08-16] VITALS: Ht 180.3 cm; Wt 79.1 kg
[2019-08-16] VITALS (13 sets, daily range): BP systolic 138–200; BP diastolic 85–104
[~2019-08-16 02:35] MED LIST changes: +SIMV40TA25 PO; -SIMV40TA4 PO; -TAMS0.4C98 PO; +TMSL.4C PO
--- NOTE | 2019-08-16 02:35 | NUR ---
pt brought in by [facility] ems c/o chest pain waking him up from sleep. pt reports taking 3 sl ntg prior to ems arrival without improvement. ems gave pt 3 doses sl ntg en route with pain decreasing from 8 to 3. asa administered by ems.
--- NOTE | 2019-08-16 02:40 | NUR ---
pt reports intermittant chest pain x1 week resolving with ntg. denies seeking care for episodes prior to tonight.
[2019-08-16] MEDS ORDERED: SILD20TA14 PO (02:47)
[2019-08-16] MEDS ORDERED: SILD25TA9 PO (02:47)
[2019-08-16 02:53] LABS: BASOPHILS # (AUTO) 0.1 10^3/uL (0.0-0.1); BASOPHILS % (AUTO) 1 % (0-10); EOSINOPHILS # (AUTO) 0.3 10^3/uL (0.0-0.3); EOSINOPHILS % (AUTO) 5 % (0-10); HEMATOCRIT 34 % (40-54); HEMOGLOBIN 11.6 G/DL (13.3-17.7); LYMPHOCYTES # (AUTO) 3.2 X 10^3 (1.0-4.0); LYMPHOCYTES % (AUTO) 48 % (12-44); MEAN CORPUSCULAR HEMOGLOBIN 33 PG (25-34); MEAN CORPUSCULAR HGB CONC 34 G/DL (32-36); MEAN CORPUSCULAR VOLUME 97 FL (80-99); MONOCYTES # (AUTO) 0.7 X 10^3 (0.0-1.0); MONOCYTES % (AUTO) 11 % (0-12); NEUTROPHILS # (AUTO) 2.4 X 10^3 (1.8-7.8); NEUTROPHILS % (AUTO) 36 % (42-75); PLATELET COUNT 297 10^3/uL (130-400); RED CELL DISTRIBUTION WIDTH 12.4 % (10.0-14.5); WHITE BLOOD COUNT 6.8 10^3/uL (4.3-11.0)
[2019-08-16 03:00] LABS: ALBUMIN 3.9 GM/DL (3.2-4.5); CHLORIDE 103 MMOL/L (98-107); POTASSIUM 3.8 MMOL/L (3.6-5.0); PROTHROMBIN TIME PATIENT 13.4 SEC (12.2-14.7); SODIUM 137 MMOL/L (135-145)
[2019-08-16 03:01] LABS: CALCIUM 8.7 MG/DL (8.5-10.1)
[2019-08-16 03:02] LABS: GLUCOSE 108 MG/DL (70-105)
[2019-08-16 03:03] LABS: CARBON DIOXIDE 24 MMOL/L (21-32)
[2019-08-16 03:04] LABS: BILIRUBIN,TOTAL 0.4 MG/DL (0.1-1.0)
[2019-08-16 03:06] LABS: ALKALINE PHOSPHATASE 51 U/L (40-136); CREATININE SERUM 0.81 MG/DL (0.60-1.30); GFR ESTIMATED > 60
[2019-08-16 03:07] LABS: BUN/CREATININE RATIO 11
--- NOTE | 2019-08-16 03:07 | ED Chest Pain ---
General Chief Complaint: Chest Pain Stated Complaint: CP Nursing Triage Note: BROUGHT IN BY [facility] C/O CHEST PAIN. PT REPORTS INTERMITTANT CHEST PAIN X 7 DAYS. STATES PAIN WOKE HIM UP FROM SLEEP TONIGHT. Nursing Sepsis Screen: No Definite Risk Source: patient Exam Limitations: no limitations History of Present Illness Date Seen by Provider: Aug 16, 2019 Time Seen by Provider: 02:38 Initial Comments This 68-year-old gentleman presents to the emergency room with pain in his shoulders, upper back, and neck that woke him from sleep. He took 3 nitroglycerin at home with minimal improvement. Does nitroglycerin were several years old. EMS administered nitroglycerin which dropped his pain from 8/10 down to 3/10. Aspirin 324 mg was also administered. Patient reports intermittent chest pain in recent days for which he has been taking nitroglycerin without benefit. He has history of coronary artery disease status post CABG in 2005. His primary care providers Dr. Orr in [place]. He does not follow with a informatics pharmacist. He presents from home via [facility]. Allergies and Home Medications Allergies Coded Allergies: No Known Drug Allergies (Unverified , 12/12/17) Home Medications Albuterol Sulfate 1 Puff Puff, 2 PUFF IH BID PRN for SHORTNESS OF BREATH, (Reported) 1 PUFF = 90 MCG Aspirin 81 Mg Tablet.dr, 81 MG PO DAILY, (Reported) Cyclobenzaprine HCl 10 Mg Tablet, 10 MG PO Q8HR Prescribed by: PEPITO PIERRE on 12/17/17 1013 Docusate Sodium 100 Mg Capsule, 100 MG PO BID Prescribed by: PEPITO PIERRE on 12/17/17 1013 Gabapentin 300 Mg Capsule, 1,500 MG PO HS, (Reported) TAKES 5 (300MG) CAPSULES Hydrocodone Bit/Acetaminophen 1 Tab Tab, 1-2 TAB PO Q6HR PRN for PAIN-MODERATE Prescribed by: PEPITO PIERRE on 12/17/17 1013 Losartan Potassium 50 Mg Tablet, 50 MG PO DAILY, (Reported) Multivitamin 1 Each Tablet, 1 TAB PO DAILY, (Reported) Simvastatin 40 Mg Tablet, 20 MG PO HS, (Reported) TAKES 1/2 (40MG) TABLET Tamsulosin HCl 0.4 Mg Cap, 0.4 MG PO HS, (Reported) Patient Home Medication List Home Medication List Reviewed: Yes Review of Systems Review of Systems Constitutional: no symptoms reported EENTM: No Symptoms Reported Respiratory: No Symptoms Reported Cardiovascular: See HPI Gastrointestinal: No Symptoms Reported Genitourinary: No Symptoms Reported Musculoskeletal: see HPI Skin: no symptoms reported Psychiatric/Neurological: No Symptoms Reported Endocrine: No Symptoms Reported Hematologic/Lymphatic: No Symptoms Reported Past Dtlkydo-Emvrue-Ypwuow Hx Past Med/Social Hx: Reviewed Nursing Past Med/Soc Hx Patient Social History Alcohol Use: Denies Use Recreational Drug Use: No Drug of Choice: denies Smoking Status: Former Smoker Type Used: Cigarettes Former Smoker, Quit: Dec 13, 2016 2nd Hand Smoke Exposure: No Recent Foreign Travel: No Contact w/Someone Who Travel: No Recent Infectious Disease Expo: No Recent Hopitalizations: No Physical Abuse: No Sexual Abuse: No Mistreated: No Fear: No Immunizations Up To Date Tetanus Booster (TDap): Unknown Seasonal Allergies Seasonal Allergies: No Past Medical History Surgeries: Yes (CABG,PANCREAS SURGERY,VASECTOMY, STENTS) Abdominal, Cardiac, CABG, Vasectomy Respiratory: Yes COPD, Emphysema Currently Using CPAP: No Currently Using BIPAP: No Cardiac: Yes Coronary Artery Disease, Heart Attack, High Cholesterol, Hypertension Neurological: No Reproductive Disorders: No Genitourinary: No Gastrointestinal: Yes Gastroesophageal Reflux, Esophageal Varices, Irritable Bowel Musculoskeletal: Yes (CHRONIC NECK AND BACK PAIN ) Degenerate Disk Disease, Chronic Back Pain, Fractures Endocrine: No HEENT: Yes Loss of Vision: Denies Hearing Impairment: Denies Cancer: No Psychosocial: Yes Anxiety, Depression Integumentary: No Blood Disorders: No Family Medical History Reviewed Nursing Family Hx No Pertinent Family Hx Physical Exam Vital Signs Vital Signs - First Documented Capillary Refill : Less Than 3 Seconds Height, Weight, BMI Height: 5'11.00" Weight: 176lbs. 1.6oz. [id number]; 24.00 BMI Method: General Appearance: No Apparent Distress, WD/WN HEENT: PERRL/EOMI, Normal ENT Inspection Neck: Normal Inspection Respiratory: Chest Non Tender, Lungs Clear, Normal Breath Sounds, No Accessory Muscle Use, No Respiratory Distress, Other (CABG scar across the chest) Cardiovascular: Regular Rate, Rhythm, No Edema, No Murmur, Normal Peripheral Pulses Gastrointestinal: Normal Bowel Sounds, Non Tender, Soft Extremity: Normal Inspection, Non Tender, No Calf Tenderness, No Pedal Edema Neurologic/Psychiatric: Alert, Oriented x3, No Motor/Sensory Deficits, Normal Mood/Affect, 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 Norm as Tested Skin: Normal Color, Warm/Dry Progress/Results/Core Measures Results/Orders Lab Results Laboratory Tests Test 08/16/19 02:43 Range/Units White Blood Count 6.8 4.3-11.0 10^3/uL Red Blood Count 3.47 L 4.35-5.85 10^6/uL Hemoglobin 11.6 L 13.3-17.7 G/DL Hematocrit 34 L 40-54 % Mean Corpuscular Volume 97 80-99 FL Mean Corpuscular Hemoglobin 33 25-34 PG Mean Corpuscular Hemoglobin Concent 34 32-36 G/DL Red Cell Distribution Width 12.4 10.0-14.5 % Platelet Count 297 130-400 10^3/uL Mean Platelet Volume 8.0 7.4-10.4 FL Neutrophils (%) (Auto) 36 L 42-75 % Lymphocytes (%) (Auto) 48 H 12-44 % Monocytes (%) (Auto) 11 0-12 % Eosinophils (%) (Auto) 5 0-10 % Basophils (%) (Auto) 1 0-10 % Neutrophils # (Auto) 2.4 1.8-7.8 X 10^3 Lymphocytes # (Auto) 3.2 1.0-4.0 X 10^3 Monocytes # (Auto) 0.7 0.0-1.0 X 10^3 Eosinophils # (Auto) 0.3 0.0-0.3 10^3/uL Basophils # (Auto) 0.1 0.0-0.1 10^3/uL Prothrombin Time 13.4 12.2-14.7 SEC INR Comment 1.0 0.8-1.4 Activated Partial Thromboplast Time 23 L 24-35 SEC Sodium Level 137 135-145 MMOL/L Potassium Level 3.8 3.6-5.0 MMOL/L Chloride Level 103 98-107 MMOL/L Carbon Dioxide Level 24 21-32 MMOL/L Anion Gap 10 5-14 MMOL/L Blood Urea Nitrogen 9 7-18 MG/DL Creatinine 0.81 0.60-1.30 MG/DL Estimat Glomerular Filtration Rate > 60 BUN/Creatinine Ratio 11 Glucose Level 108 H 70-105 MG/DL Calcium Level 8.7 8.5-10.1 MG/DL Corrected Calcium 8.8 8.5-10.1 MG/DL Magnesium Level 1.9 1.6-2.4 MG/DL Total Bilirubin 0.4 0.1-1.0 MG/DL Aspartate Amino Transf (AST/SGOT) 15 5-34 U/L Alanine Aminotransferase (ALT/SGPT) 10 0-55 U/L Alkaline Phosphatase 51 40-136 U/L Myoglobin 63.5 10.0-92.0 NG/ML Troponin I 0.067 H <0.028 NG/ML Total Protein 6.0 L 6.4-8.2 GM/DL Albumin 3.9 3.2-4.5 GM/DL My Orders Orders - DIPESH MARCANO MD Cbc With Automated Diff (08/16/19 02:47) Magnesium (08/16/19 02:47) Chest 1 View, Ap/Pa Only (08/16/19 02:47) Ekg Tracing (08/16/19 02:47) Comprehensive Metabolic Panel (08/16/19 02:47) Myoglobin Serum (08/16/19 02:47) Protime With Inr (08/16/19 02:47) Partial Thromboplastin Time (08/16/19 02:47) O2 (08/16/19 02:47) Monitor-Rhythm Ecg Trace Only (08/16/19 02:47) Lipid Panel (08/17/19 06:00) Ed Iv/Invasive Line Start (08/16/19 02:47) Troponin I (08/16/19 02:47) Nitroglycerin Ointment (Nitrobid Ointme (08/16/19 03:30) Morphine Injection (Morphine Injection (08/16/19 03:29) Medications Given in ED Current Medications Medications Dose Ordered Sig/[place] Route Start Time Stop Time Status Last Admin Dose Admin Nitroglycerin 1 inch ONCE ONCE TOP 08/16/19 03:30 08/16/19 03:31 DC 08/16/19 03:35 1 INCH Vital Signs/I&O 08/16/19 08/16/19 08/16/19 02:35 02:35 02:35 Temp 36.5 Pulse 64 Resp 16 B/P (MAP) 154/96 (115) Pulse Ox 100 100 O2 Delivery Nasal Cannula Nasal Cannula Nasal Cannula O2 Flow Rate 3.0 3.0 3.00 Blood Pressure Mean: 115 Progress Progress Note #1: Time: 03:08 Progress Note Patient seen and examined. EKG unremarkable. Chest x-ray unchanged from prior. Pain minimal at this time. Progress Note #2: Time: 03:37 Progress Note Troponin returned slightly elevated. Patient is still having some mild pain rated as 2/10. Blood pressure is still significantly elevated. Nitro paste was ordered along with morphine [address] De La Garza accepts admission to the ICU. Dr. York notified. Initial ECG Impression Date: Aug 16, 2019 Initial ECG Impression Time: 02:36 Initial ECG Rate: 55 Initial ECG Rhythm: Normal Sinus Initial ECG Intervals: Normal Initial ECG Impression: Normal Comment Normal sinus rhythm with no ST elevation or depression. No abnormal intervals or axis deviation. Low voltage and extremity leads. Diagnostic Imaging Diagonstic Imaging: Xray Plain Films/CT/US/NM/MRI: chest Comments Chest x-ray viewed by me and compared with prior. No acute changes appreciated. Report not yet available. Departure Communication (Admissions) Time/Spoke to Admitting Phy: 03:30 Dr. De La Garza Time/Spoke to Consulting Phy: 03:25 Dr. York Impression Primary Impression: NSTEMI (non-ST elevated myocardial infarction) Additional Impression: CAD (coronary artery disease) Qualified Codes: I25.10 - Atherosclerotic heart disease of [place] coronary artery without angina pectoris Disposition: 09 ADMITTED INPATIENT Condition: Improved Admissions Decision to Admit Reason: Admit from ER (General) Decision to Admit/Date: Aug 16, 2019 Time/Decision to Admit Time: 03:20 Departure-Patient Inst. Referrals: NO,LOCAL PHYSICIAN (PCP/Family) Primary Care Physician DIPESH MARCANO MD Aug 16, 2019 03:07
[2019-08-16 03:09] LABS: ALANINE AMINOTRANSFERASE 10 U/L (0-55); MAGNESIUM 1.9 MG/DL (1.6-2.4)
[2019-08-16] MEDS ORDERED: morphine INJ 10 MG/ML 1ML (SYR OR VIAL) IVP STA ×2 (03:29→05:04)
[2019-08-16] MEDS ORDERED: NITROGLYCERIN 2% OINT 1 GM UNIT DOSE PACKET TOP ONE (03:30)
--- NOTE | 2019-08-16 03:39 | NUR ---
agricultural chemist unable to take report at this time.
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
--- OUTSIDE RECORDS SUMMARY | 2019-08-16 03:52 | XMS REPORT | Encounter Summary ---
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 This section includes the names of all active insurance providers for the jagruti infante Insurance Provider Type of Coverage Plan Name Start of Policy Co verage End of Policy Coverage Group Number Member ID Insurance Provider's Telephone N umber Policy Hernandez's Name Patient's Relationship to Policy Hernandez MEDICARE (WNR) MEDICARE (M) PART B Apr 13, 2007 PART B [id number] [phone] JUAN MANUEL MARTIN PATIENT MEDICARE (WNR) MEDICARE (M) PART B Apr 13, 2007 PART B [id number] [phone] JUAN MANUEL MARTIN PATIENT MEDICARE (WNR) MEDICARE (M) PART A Sep 10, 2005 PART A [id number] [phone] JUAN MANUEL MARTIN PATIENT MEDICARE (WNR) MEDICARE (M) PART A Sep 10, 2005 PART A [id number] JUAN MANUEL MARTIN PATIENT MEDICARE (WNR) MEDICARE (M) PART A Sep 10, 2005 PART A [id number] MARTINJUAN MANUEL PATIENT Selected Encounter This section includes the information on record at NE for the Encounter. Date/Time Encounter Type Encounter Description Reason Provider Source Feb 08, 2019 10:43 AM Outpatient Encounter PRIMARY CARE/MEDICINE [facility] IHE Encounter Template Text not used by VA Assessments - Encounter Diagnoses No Data Provided for This Section Plan of Treatment: Future Appointments (+ 6 months) and Future Tests (+/- 45 day s) No Data Provided for This Section Surgical Procedures: All associated to the encounter No Data Provided for This Section Lab Results: +/- 30 days of the encounter This section includes the Chemistry and Hematology Lab R esults on record with VA for the patient. Radiology Reports and Pathology Report s are provided separately, in subsequent sections. Lab Results This section contains the Chemistry/Hematology Results kenyatta t were resulted 30 days before or 30 days after the date of the Encounter. Date/Time Source Result Type Result - Unit Interpretation Reference Range Comment Jan 23, 2019 09:15 AM [facility] IRON/TIBC Specimen Type: SERUM No comment entered. TOTAL IRON BINDING CAPACITY 285 ug/dL 25 0-450 TRANSFERRIN 228 mg/dL 163-344 IRON SAT.CALC 60 % IRON-TOTAL 172 ug/dL 65-175 Jan 23, 2019 09:15 AM [facility] FERRITIN Specimen Type: SERUM No comment entered. FERRITIN 182.4 ng/mL 22-275 Jan 23, 2019 09:15 AM [facility] VITAMIN B12 Specimen Type: SERUM No comment entered. VITAMIN B12 310 pg/mL 213-816 Jan 23, 2019 09:15 AM [facility] FOLATE Specimen Type: SERUM No comment entered. FOLATE 18.5 ng/mL 7.0-20.0 Jan 15, 2019 09:32 AM [facility] OCCULT BLOOD FIT X1 SCREEN Specimen Type: FECES No comment entered. OCCULT BLOOD (FIT) #1 OF 1 POSITIVE HH Neg ative Vital Signs: All taken on the encounter date No Data Provided for This Section Immunizations: All administered on the encounter date No Data Provided for This Section Social History: Smoking Status (Most current) and Tobacco Use (All prior to enco unter date) This section includes the most current, and the historical, smoking and tobacco- related health factors from the NE facility where the Encounter took place. Current Smoking Status This section includes the most current smoking, or tobacco -related health factor, from the NE facility where the Encounter took place. Date/Time Current Smoking Status Comment Facility Jan 02, 2019 08:20 AM NON-TOBACCO USER [facility] Tobacco Use History This section includes a history of the smoking, or tobacco -related health factors, that were collected on or before the date of the Encoun ter. The data comes from the NE facility where the Encounter took place. Date/Time Smoking Status/Tobacco Use Comment Leanna barbosa May 28, 2018 11:45 AM VA-TOBACCO FORMER USER [facility] May 28, 2018 11:45 AM VA-TOBACCO QUIT 15 YRS OR MORE JEVON NS [facility] Dec 25, 2017 02:23 PM NON-TOBACCO USER [facility] Jan 25, 2017 09:53 AM NON-TOBACCO USER [facility] Dec 22, 2015 09:45 AM NON-TOBACCO USER KO [facility] Advance Directives: All historical and current Section Date Range: From patient's date of to the date document was create d. This section includes ALL of a patient's completed or amen ded VA Advance and Rescinded Directives. The entries below indicate that a direc tive exists for the patient, but an actual copy is not included with this docume nt. The data comes from all [place] facilities. Date Advance Directives Provider Source Jan 02, 2018 ADVANCE DIRECTIVE DISCUSSION FLO KRUEGER [facility] Oct 17, 2000 ADVANCE DIRECTIVE EUNICE RODRIGUEZ [facility], VISN 15 Allergies and Adverse Reactions (ADRs): All historical and current Section Date Range: From patient's date of to the date document was create d. This section includes Allergies and Adverse Reactions (ADR s) on record with VA for the patient. The data comes from a ll NE treatment facilities. It does not list Allergies/ADRs that were removed or entered in error. Some allergies/ADRs may be reported in t he Immunization section. Allergen Event Date Event Type Reaction(s) Severity Source No Known Allergies [facility] No Allergy Assessment on File [facility] Medications: VA dispensed (-15 months) and Non-VA Documented (Obtained Outside V A) Section Date Range: 1) prescriptions processed by a VA pharmacy in the last 15 m ont, and 2) all medications recorded in the NE medical record as "non-VA medic ations". Pharmacy terms refer to NE pharmacy's work on prescriptions. VA patient s are advised to take their medications as instructed by their health care team. The data comes from all NE treatment facilities. Glossary of Pharmacy Terms:Active = A prescription that can be filled at the local NE pharmacy.Active: On Hold = An active prescription that will not be filled until pharmacy resolves the issue.Active: Susp = An active prescription that is not scheduled to be filled yet.Clinic Order = A medication received during a visit to a NE clinic or emergency department (currently not available).Discontinued = A prescription stopped by a NE provider. It is no longer available to be filled. = A prescription which is too old to fill. This does not refer to the expiration date of the medication in the container. Non-VA = A medication that came from someplace other than a VA pharmacy. This may be a prescription from either the NE or other providers that was filled outside the NE. Or, it may be an over the counter (OTC), herbal, dietary supplement or sample medication.Pending = This prescription order has been sent to the Pharmacy for review and is not ready yet. Medication Name and Strength Pharmacy Term Instructions Quantity Or dered Prescription Expires Prescription Number Last Dispense Date Ordering Provider Facility ALBUTEROL SO4 0.083% INHL,3ML Active USE 3 MLS IN NEBULIZER FOR INHALATION TWO TIMES A DAY NEEDED 180 Jan 09, 2020 [id number] Apr 10, 2019 MAK VILLEDA [facility] ALBUTEROL SO4 0.083% INHL,3ML Discontinued USE 3 MLS IN NEBULIZER FOR INHALATION TWO TIMES A DAY NEEDED 180 Jan 27, 2019 [id number] Nov 01, 2018 BRITTANEY VENEGAS [facility] ALBUTEROL SO4 90MCG/ACTUAT (CFC-F) INHL,ORAL,6.7GM Active INHALE 2 PUFFS BY ORAL INHALATION TWO TIMES A DAY NEEDED - RINSE MOUTHPIECE FREQUENTLY TO PREVENT CLOGGING 2 Aug 30, 2019 [id number] Mar 18, 2019 BRITTANEY VILLEDA [facility] ALBUTEROL SO4 90MCG/ACTUAT (CFC-F) INHL,ORAL,6.7GM Discontin ued INHALE 2 PUFFS BY ORAL INHALATION TWO TIMES A DAY NEEDED - RINSE MOUTHPIECE FREQUENTLY TO PREVENT CLOGGING 2 Mar 27, 2019 [id number] Aug 30, 2018 BRITTANEY VILLEDA BUDESONIDE 80MCG/FORMOTEROL FUM 4.5MCG/SPRAY INHL,ORAL,10.2G M Active INHALE 2 PUFFS BY ORAL INHALATION TWO TIMES A DAY FOR BREATHING. SHAKE WELL. RINSE MOUTH AND SPIT AFTER EACH USE. 3 Jun 24, 2020 [id number] Jun 24, 2019 BRITTANEY VILLEDA BUDESONIDE 80MCG/FORMOTEROL FUM 4.5MCG/SPRAY INHL,ORAL,10.2G M Discontinued INHALE 2 PUFFS BY ORAL INHALATION TWO TIMES A DAY FOR BREATHING. SHAKE WELL. RINSE MOUTH AND SPIT AFTER EACH USE. 3 Dec 07, 2019 [id number] Mar 18, 2019 BRITTANEY VILLEAD FERROUS SO4 324MG TAB,EC Active TAKE ONE TABLET BY MOUTH TWO TIMES A DAY FOR IRON SUPPLEMENTATION. MAY TAKE WITH FOOD IF NOT TOLERATED ON EMPTY STOMACH 200 Jan 09, 2020 [id number] Apr 23, 2019 BRITTANEY VILLEDA FERROUS SO4 324MG TAB,EC Discontinued TAKE ONE TABLET BY MOUTH TWO TIMES A DAY FOR IRON SUPPLEMENTATION. MAY TAKE WITH FOOD IF NOT TOLERATED ON EMPTY STOMACH 200 May 02, 2019 [id number] Nov 14, 2018 BRITTANEY VILLEDA C FOLIC ACID 1MG TAB Active TAKE ONE TABLET BY MOUTH ONCE A DAY 90 Nov 22, 2019 [id number] Mar 18, 2019 BRITTANEY VILLEDA FOLIC ACID 1MG TAB Discontinued TAKE ONE TABLET BY MOUTH ONCE A DAY 90 May 02, 2019 [id number] Sep 26, 2018 BRITTANEY VILLEDA GABAPENTIN 300MG CAP Discontinued TAKE 2 CAPSULES BY MOUTH FOUR TITO ES A DAY 720 Jan 27, 2019 [id number] Nov 14, 2018 BRITTANEY VILLEDA GABAPENTIN 400MG CAP Active TAKE 1 CAPSULE BY MOUTH THREE TITO ES A DAY 270 Dec 07, 2019 [id number] Mar 18, 2019 BRITTANEY VILLEDA HYDROCODONE 10MG/ACETAMINOPHEN 325MG TAB Non-VA TAKE ONE TABLET BY MOUTH FOUR TIMES A DAY Non-VA Documented by: RAMY TRENT nted at: STEFANI SPAIN LISINOPRIL 10MG TAB Discontinued TAKE ONE-HALF TABLET BY MOUTH EVERY MORNING FOR HEART OR HIGH BLOOD PRESSURE 15 Jun 01, 2019 [id number] Jun 02, 2018 BRITTANEY VILLEDA [facility] LOSARTAN 25MG TAB Active TAKE ONE TABLET BY MOUTH ONCE A DAY FOR BLOOD PRESSURE 90 Jan 09, 2020 [id number] Apr 23, 2019 BRITTANEY VILLEDA C LOSARTAN 25MG TAB Discontinued TAKE ONE TABLET BY M OUTH ONCE A DAY FOR BLOOD PRESSURE 90 July 13, 2019 [id number] Nov 14, 2018 TIERRA KWONG [facility] MELOXICAM 15MG TAB TAKE ONE TABLET BY M OUTH ONCE A DAY FOR PAIN OR INFLAMMATION. 90 Jun 01, 2019 [id number] Mar 18, 2019 BRITTANEY VILLEDA METOPROLOL TARTRATE 25MG TAB Active TAKE ONE-SMITH LF TABLET BY MOUTH TWO TIMES A DAY FOR HEART/BLOOD PRESSURE. TAKE WITH OR IMMEDIATELY FOLLOWING FOOD. 90 Jan 09, 2020 [id number] Apr 23, 2019 BRITTANEY VILLEDA METOPROLOL TARTRATE 25MG TAB Discontinued TAKE ONE-SMITH LF TABLET BY MOUTH TWO TIMES A DAY FOR HEART/BLOOD PRESSURE. TAKE WITH OR IMMEDIATELY FOLLOWING FOOD. 90 July 13, 2019 [id number] Nov 14, 2018 [facility] SIMVASTATIN 40MG TAB Active TAKE ONE-HALF TABLE T BY MOUTH AT BEDTIME FOR CHOLESTEROL - REPORT ANY UNEXPLAINED MUSCLE PAIN OR WEAKNESS TO YOUR PROVIDER 45 Sep 27, 2019 [id number] Jun 24, 2019 BRITTANEY VILLEDA C SIMVASTATIN 40MG TAB Discontinued TAKE ONE-HALF TABLE T BY MOUTH AT BEDTIME FOR CHOLESTEROL - REPORT ANY UNEXPLAINED MUSCLE PAIN OR WEAKNESS TO YOUR PROVIDER 45 Sep 23, 2018 [id number] Jul 05, 2018 BRITTANEY VILLEDA C TAMSULOSIN HCL 0.4MG CAP Discontinued TAKE ONE CAPSUL E BY MOUTH ONCE A DAY FOR PROSTATE. TAKE AT THE SAME TIME EACH DAY WITH FOOD. Jun 17 9 [id number] Jun 14, 2018 BRITTANEY VILLEDA TAMSULOSIN HCL 0.4MG CAP TAKE ONE CAPSUL E BY MOUTH ONCE A DAY FOR PROSTATE. TAKE AT THE SAME TIME EACH DAY WITH FOOD. August 01 0 [id number] Jun 24, 2019 BRITTANEY VILLEDA TIOTROPIUM 2.5MCG/ACTUAT INHL,ORAL,60D,4GM Active INHALE 2 PUFFS BY ORAL INHALATION ONCE A DAY FOR BREATHING. DON'T USE WITH IPRATROPIUM - REPLACES ADVAIR. 3 Jun 24, 2020 [id number] Jun 24, 2019 BRITTANEY VILLEDA ONS CB TIOTROPIUM 2.5MCG/ACTUAT INHL,ORAL,60D,4GM Discontinued INHALE 2 PUFFS BY ORAL INHALATION ONCE A DAY FOR BREATHING. DON'T USE WITH IPRATROPIUM - REPLACES ADVAIR. 3 Oct 13, 2019 [id number] Mar 18, 2019 BRITTANEY VILLEDA [facility] Problems (Conditions): All historical and current Section Date Range: From patient's date of to the date document was create d. This section includes a list of Problems (Conditions) know n to [facility] for the patient. It includes both active and inacti ve problems (conditions). The data comes from all [place] treatment facilities. Problem Status Problem Code Date of Onset Date of Resolution Comm ent(s) Provider Source Actinic keratosis (SNOMED CT 342523720) Active 702.0 BRITTANEY VILLEDA [facility] Alcohol Dependence * (ICD-9-CM 303.90/303.91) Active 303.90 ALEXANDRA KWONG [facility] Anemia Active 285.9 [facility] ANGINA PECTORIS NEC/NOS 413.9 Active 413.9 W ALEXANDRA DE JESUS [facility] Anxiety Disorder Active 300.00 AURELIANO LINCOLN MD [facility] Benign Neoplasm Skin Head, Neck, Scalp Active 216.4 RENALDO DACOSTA [facility] CABG Active 799.9 Oct 05, 2006 E ntered By: SATHISH SCOTT Comment: feb, 4-vessel [facility] Chest discomfort (SNOMED CT 077666121) Active 786.59 [address] [address] [facility] Chronic airway obstruction, Not Elsewhere Classified Active 496. AURELIANO LINCOLN MD [facility] Chronic Low Back Pain Active 724.2 AURELIANO LINCOLN MD [facility] COPD * (ICD-9-CM 496.) Active 496. Robin SCOTT [facility] Coronary Artery Disease * (ICD-9-CM 414.9) Active 414.9 [facility]DRA KWONG [facility] Coronary Atherosclerosis of Lime Coronary Vessel Active 414.01 August 03, 2010 Entered By: AURELIANO LINCOLN MD Comment: Bypass surgery AURELIANO LINCOLN MD [facility] Disorder of shoulder (SNOMED CT 012655600) Active 719.91 [facility]ILLED[facility] Essential Hypertension Active 401.9 AURELIANO LINCOLN MD [facility] Hyperlipidemia Active 272.4 [facility]ISH SCOTT [facility] HYPERTENSION NOS 401.9 Active 401.9 ALEXANDRA KWONG [facility] Impotence (SNOMED CT 616950756) Active 302.72 [facility] VILLEDA 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 AURELIANO LIU MD [facility] Marijuana Dependence unspecified Active 304.30 AURELIANO LINCOLN MD [facility] Microscopic Hematuria (ICD-9-CM 599.72) Active 599.72 [facility] Other and unspecified hyperlipidemia Active 272.4 AURELIANO LINCOLN MD [facility] Other, mixed, or unspecified drug abuse, continuous use Active 30 5.91 Jan 30, 2009 Entered By: SATHISH SCOTT Comment: urine drug screen positive for opitates and marijuannaMay 2009 Entered By: SATHISH SCOTT Comment: buying hydrocodone "off the street" SATHISH SCOTT [facility] Pain in joint involving ankle and foot (ICD-9-CM 719.47) Active 719 .47 [facility] SCOTT [facility] Papular eruption (SNOMED CT 717945553) Active 709.8 [facility]ILLED[facility] Personal History of Noncompliance with M edical Treatment, Presenting Hazards to Active V15.81 SATHISH SCOTT [facility] Tobacco dependence syndrome (SNOMED CT 48177491) Active [id number] July 24, 2009 Entered By: SATHISH SCOTT Comment: one ppd AVILA,YUMI H YUMI [facility] Transient Ischemic Attack * (ICD-9-CM 435.9) Active 435.9 SATHISH SCOTT [facility] ANIETY STAT NOS 300.00 Inactive 300.00 Jan 05, 2005 ALEXANDRA FLOREZ [facility] Bronchitis * (ICD-9-CM 490.) Inactive 490. Jan 05, 2005 [facility] Postsurgical Aortocoronary Bypass Status (ICD-9-CM V45.81) Inactive V45.81 Oct 05, 2006 SATHISH SCOTT [facility] Radiology Reports: +/- 30 days of the encounter No Data Provided for This Section Pathology Reports: +/- 30 days of the encounter No Data Provided for This Section Encounter Notes: All associated encounter notes This section contains the clinical notes associated to the Encounter. Date/Time Encounter Note(s) Provider Source Feb 08, 2019 10:44 AM ADMINISTRATIVE NOTE: LOCAL TITLE: ND-ADMINISTRATIVE NOTE (BP,O) STANDARD TITLE: ADMINISTRATIVE NOTE DATE OF NOTE: FEB 08, 2019@10:44 ENTRY DATE: FEB 08, 2019@10:44:06 AUTHOR: BRITTANEY VILLEDA EXP COSIGNER: URGENCY: STATUS: COMPLETED reviewed recent lab- lab done for GI clinic prior to colonoscopy is normal, please call or send letter, thank you /nuno/ BRITTANEY VILLEDA [facility]3] Signed: 02/08/2019 10:45 Receipt Acknowledged By: * AWAITING SIGNATURE * RAMY TRENT MICHAEL B [facility]
--- OUTSIDE RECORDS SUMMARY | 2019-08-16 03:52 | XMS REPORT | Encounter Summary ---
Author [facility] Organization [facility] Address [address] [place] [id number] Phone Unavailable Care Team Providers Care Dispatch Supervisor Name Role Phone BRITTANEY VILLEDA PCP Unavailable [...] PART B Apr 13, 2007 PART B [id number] [phone] JUAN MANUEL MARTIN PATIENT MEDICARE (WNR) MEDICARE (M) PART B Apr 13, 2007 PART B [id number] [phone] JUAN MANUEL MARTIN PATIENT MEDICARE (WNR) MEDICARE (M) PART A Sep 10, 2005 PART A [id number] [phone] JUAN MANUEL MARTIN PATIENT MEDICARE (WNR) MEDICARE (M) PART A Sep 10, 2005 PART A [id number] [phone] JUAN MANUEL MARTIN PATIENT MEDICARE (WNR) MEDICARE (M) PART A Sep 10, 2005 PART A [id number] VERONICAJUAN MANUEL PATIENT Selected Encounter This section includes the information on record at [place] for the Encounter. Date/Time Encounter Type Encounter Description Reason Provider Source Dec 06, 2018 11:02 AM Outpatient Encounter ADMIN PAT ACTIVTIES (MELANIE CUADRA) [facility] IHE Encounter Template Text not used by [facility] Assessments - Encounter Diagnoses No Data Provided for This Section Plan of Treatment: Future Appointments (+ 6 months) and Future Tests (+/- 45 day s) The Plan of Treatment section includes future care activities for the patient fr om all [place] treatment facilities. This section includes future appointments and fu ture orders which are active, pending or scheduled. Future Appointments This section includes appointments that were scheduled t o occur 6 months from the date of the Encounter, up to a maximum of 20 appointme nts. The data comes from all [place] treatment facilities. Appointment Date/Time Appointment Type Appointment Facili ty Name Jan 02, 2019 08:30 AM AMBULATORY - NONE [facility] Jan 08, 2019 09:00 AM AMBULATORY - MEDICINE [facility] Jan 23, 2019 09:15 AM AMBULATORY - NONE [facility] Surgical Procedures: All associated to the encounter No Data Provided for This Section Lab Results: +/- 30 days of the encounter This section includes the Chemistry and Hematology Lab R esults on record with [place] for the patient. Radiology Reports and Pathology Report s are provided separately, in subsequent sections. Lab Results This section contains the Chemistry/Hematology Results kenyatta t were resulted 30 days before or 30 days after the date of the Encounter. Date/Time Source Result Type Result - Unit Interpretation Reference Range Comment Jan 02, 2019 08:29 AM [facility] CBC & DIFF Specimen Type: BLOOD No comment entered. WBC 6.7 K/cmm 3.60-11.20 RBC 3.85 M/ul L 4.1-5.7 HGB 12.7 g/dl L 13.1-16.8 HCT 37.5 % L 38.2-48.4 MCV 97.4 fl 80.1-98.5 MCH 33.0 pg 27.0-34.0 MCHC 33.9 g/dl 33.0-36.0 PLATELET COUNT 282 K/cmm 150-400 MPV 9.0 fl 7.5-11.2 RDW 12.2 % 11.8-15.1 LYMPHOCYTES, AUTO% 29.7 % NEUTROPHILS, AUTO % 54.0 % MONOCYTES, AUTO% 10.3 % MONOCYTES, ABSOLUTE 0.7 K/cmm 0.19-0.80 NEUTROPHILS, ABSOLUTE 3.6 K/cmm 2.10-8.0 0 EOSINOPHILS, ABSOLUTE 0.3 K/cmm 0.00-0.6 0 BASOPHILS, ABSOLUTE 0.0 K/cmm 0.00-0.20 EOSINOPHILS, AUTO% 4.8 % BASOPHILS, AUTO% 0.6 % LYMPHOCYTES, ABSOLUTE 2.0 K/cmm 0.77-4.5 0 IMMATURE GRANS, ABSOLUTE 0.04 K/cmm 0.00 -0.05 IMMATURE GRANS, AUTO % 0.6 % Vital Signs: All taken on the encounter date No Data Provided for This Section Immunizations: All administered on the encounter date No Data Provided for This Section Social History: Smoking Status (Most current) and Tobacco Use (All prior to enco unter date) This section includes the most current, and the historical, smoking and tobacco- related health factors from the [place] facility where the Encounter took place. Current Smoking Status This section includes the most current smoking, or tobacco -related health factor, from the [place] facility where the Encounter took place. Date/Time Current Smoking Status Comment Facility May 28, 2018 11:45 AM [place]-TOBACCO FORMER USER [facility] Tobacco Use History This section includes a history of the smoking, or tobacco -related health factors, that were collected on or before the date of the Encoun ter. The data comes from the [place] facility where the Encounter took place. Date/Time Smoking Status/Tobacco Use Comment [facility] May 28, 2018 11:45 AM VA-TOBACCO QUIT 15 YRS OR MORE [place] [facility] Dec 25, 2017 02:23 PM NON-TOBACCO USER KO [facility] Jan 25, 2017 09:53 AM NON-TOBACCO USER KO [facility] Dec 22, 2015 09:45 AM NON-TOBACCO USER [facility] Advance Directives: All historical and [...] docume nt. The data comes from all [place] facilities. Date Advance Directives Provider Source Jan 02, 2018 ADVANCE DIRECTIVE DISCUSSION FLO KRUEGER [facility] Oct 17, 2000 ADVANCE DIRECTIVE EUNICE RODRIGUEZ [facility] 15 Allergies and Adverse Reactions (ADRs): All historical and current Section Date Range: From patient's date of to the date document was create d. This section includes Allergies and Adverse Reactions (ADR s) on record with [place] for the patient. The data comes from a ll [place] treatment facilities. It does not list Allergies/ADRs that were removed or entered in error. Some allergies/ADRs may be reported in t he Immunization section. Allergen Event Date Event Type Reaction(s) Severity Source No Known Allergies [facility] No Allergy Assessment on File TAVOVALENTINO MORGAN Medications: VA dispensed (-15 months) and Non-VA Documented (Obtained Outside V A) Section Date Range: 1) prescriptions processed by a VA pharmacy in the last 15 m ont, and 2) all medications recorded in the [place] medical record as "non-VA medic ations". Pharmacy terms refer to [place] pharmacy's work on prescriptions. VA patient s are advised to take their medications as instructed by their health care team. The data comes from all [place] treatment facilities. Glossary of Pharmacy Terms:Active = A prescription that can be filled at the local [place] pharmacy.Active: On Hold = An active prescription that will not be filled until pharmacy resolves the issue.Active: Susp = An active prescription that is not scheduled to be filled yet.Clinic Order = A medication received during a visit to a [place] clinic or emergency department (currently not available).Discontinued = A prescription stopped by a VA provider. It is no longer available to be filled. = A prescription which is too old to fill. This does not refer to the expiration date of the medication in the container. Non-VA = A medication that came from someplace other than a VA pharmacy. This may be a prescription from either the VA or other providers that was filled outside the VA. Or, it may be an over the [...] A DAY NEEDED 180 Jan 09, 2020 [id number] Apr 10, 2019 MAK VILLEDA ALBUTEROL SO4 0.083% INHL,3ML Discontinued USE 3 MLS IN NEBULIZER FOR INHALATION TWO TIMES A DAY NEEDED 180 Jan 27, 2019 [id number] Nov 01, 2018 BRITTANEY VENEGAS ALBUTEROL SO4 90MCG/ACTUAT (CFC-F) INHL,ORAL,6.7GM Active INHALE 2 PUFFS BY ORAL INHALATION TWO TIMES A DAY NEEDED - RINSE MOUTHPIECE FREQUENTLY TO PREVENT CLOGGING 2 Aug 30, 2019 [id number] Mar 18, 2019 BRITTANEY VILLEDA ALBUTEROL SO4 90MCG/ACTUAT (CFC-F) INHL,ORAL,6.7GM Discontin ued INHALE 2 PUFFS BY ORAL INHALATION TWO TIMES A DAY NEEDED - RINSE MOUTHPIECE FREQUENTLY TO PREVENT CLOGGING 2 Mar 27, 2019 [id number] Aug 30, 2018 BRITTANEY VILLEDA BUDESONIDE 80MCG/FORMOTEROL FUM 4.5MCG/SPRAY INHL,ORAL,10.2G M Active INHALE 2 PUFFS BY ORAL INHALATION TWO TIMES A DAY FOR BREATHING. SHAKE WELL. RINSE MOUTH AND SPIT AFTER EACH USE. 3 Jun 24, 2020 [id number] Jun 24, 2019 BRITTANEY VILLEDA BUDESONIDE 80MCG/FORMOTEROL FUM 4.5MCG/SPRAY INHL,ORAL,10.2G M Discontinued INHALE 2 PUFFS BY ORAL INHALATION TWO TIMES A DAY FOR BREATHING. SHAKE WELL. RINSE MOUTH AND SPIT AFTER EACH USE. 3 Dec 07, 2019 [id number] Mar 18, 2019 BRITTANEY VILLEDA [facility] FERROUS SO4 324MG TAB,EC Active TAKE ONE TABLET BY MOUTH TWO TIMES A DAY FOR IRON SUPPLEMENTATION. MAY TAKE WITH FOOD IF NOT TOLERATED ON EMPTY STOMACH 200 Jan 09, 2020 [id number] Apr 23, 2019 BRITTANEY VILLEDA [facility] FERROUS SO4 324MG TAB,EC Discontinued TAKE ONE TABLET BY MOUTH TWO TIMES A DAY FOR IRON SUPPLEMENTATION. MAY TAKE WITH FOOD IF NOT TOLERATED ON EMPTY STOMACH 200 May 02, 2019 [id number] Nov 14, 2018 BRITTANEY VILLEDA [facility] FOLIC ACID 1MG TAB Active TAKE ONE TABLET BY MOUTH ONCE A DAY 90 Nov 22, 2019 [id number] Mar 18, 2019 BRITTANEY VILLEDA FOLIC ACID 1MG TAB Discontinued TAKE ONE TABLET BY MOUTH ONCE A DAY 90 May 02, 2019 [id number] Sep 26, 2018 BRITTANEY VILLEDA GABAPENTIN 300MG CAP Discontinued TAKE 2 CAPSULES BY MOUTH FOUR TITO ES A DAY 720 Jan 27, 2019 [id number] Nov 14, 2018 BRITTANEY VILLEDA GABAPENTIN 400MG CAP Active TAKE 1 CAPSULE BY MOUTH THREE TITO ES A DAY 270 Dec 07, 2019 [id number] Mar 18, 2019 BRITTANEY VILLEDA HYDROCODONE 10MG/ACETAMINOPHEN 325MG TAB Non-VA TAKE ONE TABLET BY MOUTH FOUR TIMES A DAY Non-VA Documented by: RAMY TRENT nted at: STEFANI SPAIN LISINOPRIL 10MG TAB Discontinued TAKE ONE-HALF TABLET BY MOUTH EVERY MORNING FOR HEART OR HIGH BLOOD PRESSURE 15 Jun 01, 2019 [id number] Jun 02, 2018 BRITTANEY VILLEDA [facility] LOSARTAN 25MG TAB Active TAKE ONE TABLET BY MOUTH ONCE A DAY FOR BLOOD PRESSURE 90 Jan 09, 2020 [id number] Apr 23, 2019 BRITTANEY VILLEDA CBO C LOSARTAN 25MG TAB Discontinued TAKE ONE TABLET BY M OUTH ONCE A DAY FOR BLOOD PRESSURE July 13, 2019 [id number] Nov 14, 2018 TIERRA KWONG [facility] MELOXICAM 15MG TAB TAKE ONE TABLET BY M OUTH ONCE A DAY FOR PAIN OR INFLAMMATION. 90 Jun 01, 2019 [id number] Mar 18, 2019 BRITTANEY VILLEDA METOPROLOL TARTRATE 25MG TAB Active TAKE ONE-SMITH LF TABLET BY MOUTH TWO TIMES A DAY FOR HEART/BLOOD PRESSURE. TAKE WITH OR IMMEDIATELY FOLLOWING FOOD. 90 Jan 09, 2020 [id number] Apr 23, 2019 BRITTANEY VILLEDA METOPROLOL TARTRATE 25MG TAB Discontinued TAKE ONE-SMITH LF TABLET BY MOUTH TWO TIMES A DAY FOR HEART/BLOOD PRESSURE. TAKE WITH OR IMMEDIATELY FOLLOWING FOOD. 90 July 13, 2019 [id number] Nov 14, 2018 TIERRA KWONG [facility] SIMVASTATIN 40MG TAB Active TAKE ONE-HALF TABLE T BY MOUTH AT BEDTIME FOR CHOLESTEROL - REPORT ANY UNEXPLAINED MUSCLE PAIN OR WEAKNESS TO YOUR PROVIDER 45 Sep 27, 2019 [id number] Jun 24, 2019 BRITTANEY VILLEDA [facility] SIMVASTATIN 40MG TAB Discontinued TAKE ONE-HALF TABLE T BY MOUTH AT BEDTIME FOR CHOLESTEROL - REPORT ANY UNEXPLAINED MUSCLE PAIN OR WEAKNESS TO YOUR PROVIDER 45 Sep 23, 2018 [id number] Jul 05, 2018 BRITTANEY VILLEDA [facility] TAMSULOSIN HCL 0.4MG CAP Discontinued TAKE ONE CAPSUL E BY MOUTH ONCE A DAY FOR PROSTATE. TAKE AT THE SAME TIME EACH DAY WITH FOOD. 90 Jun 17 9 [id number] Jun 14, 2018 BRITTANEY VILLEDA [facility] TAMSULOSIN HCL 0.4MG CAP TAKE ONE CAPSUL E BY MOUTH ONCE A DAY FOR PROSTATE. TAKE AT THE SAME TIME EACH DAY WITH FOOD. 90 August 01 0 [id number] Jun 24, 2019 BRITTANEY VILLEDA TIOTROPIUM 2.5MCG/ACTUAT INHL,ORAL,60D,4GM Active INHALE 2 PUFFS BY ORAL INHALATION ONCE A DAY FOR BREATHING. DON'T USE WITH IPRATROPIUM - REPLACES ADVAIR. 3 Jun 24, 2020 [id number] Jun 24, 2019 BRITTANEY VILLEDA [facility] TIOTROPIUM 2.5MCG/ACTUAT INHL,ORAL,60D,4GM Discontinued INHALE 2 PUFFS BY ORAL INHALATION ONCE A DAY FOR BREATHING. DON'T USE WITH IPRATROPIUM - REPLACES ADVAIR. 3 Oct 13, 2019 [id number] Mar 18, 2019 BRITTANEY VILLEDA [facility] Problems (Conditions): All historical and current Section Date Range: From patient's date of to the date document was create d. This section includes a list of Problems (Conditions) know n to [place] for the patient. It includes both active and inacti ve problems (conditions). The data comes from all [place] treatment facilities. Problem Status Problem Code Date of Onset Date of Resolution Comm ent(s) Provider Source Actinic keratosis (SNOMED CT 830925116) Active 702.0 BRITTANEY VILLEDA [facility] Alcohol Dependence * (ICD-9-CM 303.90/303.91) Active 303.90 ALEXANDRA KWONG [facility] Anemia Active 285.9 SATHISH SCOTT [facility] ANGINA PECTORIS NEC/NOS 413.9 Active 413.9 [facility] Anxiety Disorder Active 300.00 AURELIANO LINCOLN MD [facility] Benign Neoplasm Skin Head, Neck, Scalp Active 216.4 RENALDO DACOSTA YUMI [facility] CABG Active 799.9 Oct 05, 2006 E ntered By: SATHISH SCOTT Comment: feb, 4-vessel SATHISH SCOTT [facility] Chest discomfort (SNOMED CT 896495451) Active 786.59 BRITTANEY VILLEDA [facility] Chronic airway obstruction, Not Elsewhere Classified Active 496. AURELIANO LINCOLN MD [facility] Chronic Low Back Pain Active 724.2 AURELIANO LINCOLN MD [facility] COPD * (ICD-9-CM 496.) Active 496. Robin SCOTT [facility] Coronary Artery Disease * (ICD-9-CM 414.9) Active 414.9 ALEXANDRA KWONG [facility] Coronary Atherosclerosis of [place] Coronary Vessel Active 414.01 August 03, 2010 Entered By: AURELIANO LINCOLN MD Comment: Bypass surgery AURELIANO LINCOLN MD [facility] Disorder of shoulder (SNOMED CT 214668461) Active 719.91 [facility]ILLEDA [facility] Essential Hypertension Active 401.9 AURELIANO LINCOLN MD [facility] Hyperlipidemia Active 272.4 SATHISH SCOTT [facility] HYPERTENSION NOS 401.9 Active 401.9 ALEXANDRA KWONG [facility] Impotence (SNOMED CT 291454685) Active 302.72 [facility] 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 AURELIANO LIU MD [facility] Marijuana Dependence unspecified Active 304.30 AURELIANO LINCOLN MD [facility] Microscopic Hematuria (ICD-9-CM 599.72) Active 599.72 BEVERLY SALINAS [facility] Other and unspecified hyperlipidemia Active 272.4 AURELIANO LINCOLN MD [facility] Other, mixed, or unspecified drug abuse, continuous use Active 30 5.91 Jan 30, 2009 Entered By: SATHISH SCOTT Comment: urine drug screen positive for opitates and marijuannaMay 2009 Entered By: SATHISH SCOTT Comment: buying hydrocodone "off the street" SATHISH SCOTT [facility] Pain in joint involving ankle and foot (ICD-9-CM 719.47) Active 719 .47 SATHISH SCOTT [facility] Papular eruption (SNOMED CT 598976253) Active 709.8 BRITTANEY VILLEDA [facility] Personal History of Noncompliance with M edical Treatment, Presenting Hazards to Active V15.81 SATHISH SCOTT [facility] Tobacco dependence syndrome (SNOMED CT 47329168) Active [id number] July 24, 2009 Entered By: SATHISH SCOTT Comment: one ppd YUMI AVILA [facility] Transient Ischemic Attack * (ICD-9-CM 435.9) Active 435.9 SATHISH SCOTT [facility] ANIETY STAT NOS 300.00 Inactive 300.00 Jan 05, 2005 ALEXANDRA FLOREZ [facility] Bronchitis * (ICD-9-CM 490.) Inactive 490. Jan 05, 2005 BRITTANEY VILLEDA [facility] Postsurgical Aortocoronary Bypass Status (ICD-9-CM V45.81) Inactive V45.81 Oct 05, 2006 SATHISH SCOTT [facility] Radiology Reports: +/- 30 days of the encounter No Data Provided for This Section Pathology Reports: +/- 30 days of the encounter No Data Provided for This Section Encounter Notes: All associated encounter notes This section contains the clinical notes associated to the Encounter. Date/Time Encounter Note(s) Provider Source Dec 06, 2018 11:02 AM ADMINISTRATIVE NOTE: LOCAL TITLE: [place]-ADMIN MSA STANDARD TITLE: ADMINISTRATIVE NOTE DATE OF NOTE: DEC 06, 2018@11:02 ENTRY DATE: DEC 06, 2018@11:02:52 AUTHOR: WEN,DARCY J EXP COSIGNER: URGENCY: STATUS: COMPLETED MSA Administrative Note: RECORDS RECEIVED TODAY by: Fax Nature of report:rx for fluticasone and gabapentin Date(s) of record(s):12/06/2018 Sending republican:[facility] /nuno/ DARCY KO Signed: 12/06/2018 11:03 DARCY WEN [facility]
--- OUTSIDE RECORDS SUMMARY | 2019-08-16 03:52 | XMS REPORT | Continuity of Care Document ---
Author [facility] Organization [facility] Address Unknown Phone Unavailable Care Team Providers Care Biology Professor Name Role Phone [facility] Unavailable Unavailable Problems Combined list of all problems from all Department of Defense and [facility] facilities. It does not include entries that were removed or entered in error. Problem Status Onset Date Problem Type Date of Resolution Comments Source Actinic keratosis (SNOMED CT 081941066) Active Condition [facility] Alcohol Dependence * (ICD-9-CM 303.90/303.91) Active Condition [facility] Anemia Active Condition [facility] ANGINA PECTORIS NEC/NOS 413.9 Active Condition [facility] Anxiety Disorder Active Condition [facility] Benign Neoplasm Skin Head, Neck, Scalp Active Condition [facility] CABG Active Condition Oct 05, 2006 Entered By: SATHISH SCOTT Comment: feb, 4-vessel [facility] Chest discomfort (SNOMED CT 087816065) Active Condition [facility] Chronic airway obstruction, Not Elsewhere Classified Active Condition [facility] Chronic Low Back Pain Active Condition [facility] COPD * (ICD-9-CM 496.) Active Condition [facility] Coronary Artery Disease * (ICD-9-CM 414.9) Active Condition [facility] Coronary Atherosclerosis of [place] Coronary Vessel Active Condition August 03, 2010 Entered By: AURELIANO LINCOLN MD Comment: Bypass surgery [facility] Disorder of shoulder (SNOMED CT 067683885) Active Condition [facility] Essential Hypertension Active Condition [facility] Hyperlipidemia Active Condition [facility] HYPERTENSION NOS 401.9 Active Condition [facility] Impotence (SNOMED CT 527927891) Active Condition [facility] Impotence of organic origin Active Condition [facility] Marijuana Dependence unspecified Active Condition [facility] Microscopic Hematuria (ICD-9-CM 599.72) Active Condition [facility] Other and unspecified hyperlipidemia Active Condition [facility] Other, mixed, or unspecified drug abuse, continuous us e Active Condition Jan 30, 2009 Entered By: SATHISH SCOTT Comment: urine drug screen positive for opitates and marijuanna July 24, 2009 Entered By: SATHISH SCOTT Comment: buying hydrocodone "off the street" [facility] Pain in joint involving ankle and foot (ICD-9-CM 719.4 7) Active Condition [facility] Papular eruption (SNOMED CT 832674431) Active Condition [facility] Personal History of Noncompliance with M edical Treatment, Presenting Hazards to Active Condition [facility] Tobacco dependence syndrome (SNOMED CT 11707091) Active Condition July 24, 2009 Entered By: SATHISH SCOTT Comment: one ppd [facility] Transient Ischemic Attack * (ICD-9-CM 435.9) Active Condition [facility] ANIETY STAT NOS 300.00 Inactive Condition 01/05/2005 [facility] Bronchitis * (ICD-9-CM 490.) Inactive Condition 01/05/2005 [facility] Postsurgical Aortocoronary Bypass Status (ICD-9-CM V45 .81) Inactive Condition 10/05/2006 [facility] ICD-10-CM I10. Essential (primary) hyper tension with Provider Comments: Essential (Primary) Hypertension active Diagnosis [facility] ICD-10-CM Z71.2 Person consulting for ex planation of exam or test findings with Provider Comments: Explanation of Exam or Test Finding active Diagnosis [facility] ICD-10-CM M54.5 Low back pain with Provi burton Comments: Low Back Pain active Diagnosis [facility] Medications Combined list of all outpatient medications recorded within the last 15 months b y all Department of Defense and Veterans Affairs facilities, and also all patien t-reported medications. Medication Details Route Status Patient Instructions Prescription Expires Prescript ion Number Last Dispense Date Ordering Pr ovider Order Date Source ALBUTEROL SO4 0.083% INHL,3ML USE 3 MLS IN NEBULIZER FOR INHALATION TWO TIMES A DAY NEEDED ACTIVE 12/12 [id number] 04/10/2019 BRITTANEY VILLEDA 01/20/2019 STEFANI SPAIN ALBUTEROL SO4 0.083% INHL,3ML USE 3 MLS IN NEBULIZER FOR INHALATION TWO TIMES A DAY NEEDED DISCONTINUE 01/27/2019 [id number] 11/01/2018 BRITTANEY VILLEDA 01/28/2018 STEFANI SPAIN ALBUTEROL SO4 90MCG/ACTUAT (CFC-F) INHL,ORAL,6.7GM INHALE 2 PUFFS BY ORAL INHALATION TWO TIMES A DAY NEEDED - RINSE MOUTHPIECE FREQUENTLY TO PREVENT CLOGGING ACTIVE 08/30/2019 [id number] 03/18/2019 BRITTANEY VILLEDA 11/28/2018 STEFANI SPAIN ALBUTEROL SO4 90MCG/ACTUAT (CFC-F) INHL,ORAL,6.7GM INHALE 2 PUFFS BY ORAL INHALATION TWO TIMES A DAY NEEDED - RINSE MOUTHPIECE FREQUENTLY TO PREVENT CLOGGING DISCONTINUE 03/27/2019 [id number] 08/30/2018 BRITTANEY VILLEDA 06/11/2018 STEFANI SPAIN BUDESONIDE 80MCG/FORMOTEROL FUM 4.5MCG/S PRAY INHL,ORAL,10.2GM INHALE 2 PUFFS BY ORAL INHALATION TWO TI MES A DAY FOR BREATHING. SHAKE WELL. RINSE MOUTH AND SPIT AFTER EACH USE. ACTIVE 06/11 [id number] 06/24/2019 BRITTANEY VILLEDA 06/24/2019 [facility] BUDESONIDE 80MCG/FORMOTEROL FUM 4.5MCG/S PRAY INHL,ORAL,10.2GM INHALE 2 PUFFS BY ORAL INHALATION TWO TI MES A DAY FOR BREATHING. SHAKE WELL. RINSE MOUTH AND SPIT AFTER EACH USE. DISCONTINUE 12/07/2019 [id number] 03/18/2019 BRITTANEY VILLEDA 12/11/2018 STEFANI SPAIN FERROUS SO4 324MG TAB,EC TAKE ONE TABLET BY MOUTH TWO TIMES A DAY FOR IRON SUPPLEMENTATION. MAY TAKE WITH FOOD IF NOT TOLERATED ON EMPTY STOMACH ACTIVE 01/09/2020 [id number] 04/23/2019 BRITTANEY VILLEDA 02/02/2019 [facility] FERROUS SO4 324MG TAB,EC TAKE ONE TABLET BY MOUTH TWO TIMES A DAY FOR IRON SUPPLEMENTATION. MAY TAKE WITH FOOD IF NOT TOLERATED ON EMPTY STOMACH DISCONTINUE 05/02/2019 [id number] 11/14/2018 BRITTANEY VILLEDA 05/06/2018 [facility] FOLIC ACID 1MG TAB TAKE ONE TA BLET BY MOUTH ONCE A DAY ACTIVE 11/22/2019 [id number] 03/18/2019 BRITTANEY VILLEDA 12/15/2018 [facility] FOLIC ACID 1MG TAB TAKE ONE TA BLET BY MOUTH ONCE A DAY DISCONTINUE 05/02/2019 [id number] 09/26/2018 BRITTANEY VILLEDA 05/06/2018 [facility] GABAPENTIN 300MG CAP TAKE 2 CA PSULES BY MOUTH FOUR TIMES A DAY DISCONTINUED 01/27/2019 [id number] 11/14/2018 BRITTANEY VILLEDA 01/28/2018 [facility] GABAPENTIN 400MG CAP TAKE 1 CA PSULE BY MOUTH THREE TIMES A DAY ACTIVE 12/07/2019 [id number] 03/18/2019 BRITTANEY VILLEDA 12/11/2018 [facility] HYDROCODONE 10MG/ACETAMINOPHEN 325MG TAB TAKE ONE TABLET BY MOUTH FOUR TIMES A DAY ACTIVE OSTERAMY DON S 09/30/2013 [facility] LISINOPRIL 10MG TAB TAKE ONE-H FCI TABLET BY MOUTH EVERY MORNING FOR HEART OR HIGH BLOOD PRESSURE DISCONTINUED 06/01/2019 [id number] 06/02/2018 BRITTANEY VILLEDA 06/02/2018 [facility] LOSARTAN 25MG TAB TAKE ONE TAB LET BY MOUTH ONCE A DAY FOR BLOOD PRESSURE ACTIVE 01/09/2020 [id number] 04/23/2019 BRITTANEY VILLEDA 02/02/2019 [facility] LOSARTAN 25MG TAB TAKE ONE TAB LET BY MOUTH ONCE A DAY FOR BLOOD PRESSURE DISCONTINUE 07/13/2019 [id number] 11/14/2018 TIERRA KWONG 07/13/2018 YUMI BROWN [facility] MELOXICAM 15MG TAB TAKE ONE TA BLET BY MOUTH ONCE A DAY FOR PAIN OR INFLAMMATION. 06/01/2019 [id number] 03/18/2019 BRITTANEY VILLEDA 06/02/2018 [facility] METOPROLOL TARTRATE 25MG TAB T CRESENCIO ONE-HALF TABLET BY MOUTH TWO TIMES A DAY FOR HEART/BLOOD PRESSURE. TAKE WITH OR IMMEDIATELY FOLLOWING FOOD. ACTIVE 01/09/2020 [id number] 04/23/2019 BRITTANEY VILLEDA 02/02/2019 STEFANI SPAIN METOPROLOL TARTRATE 25MG TAB T CRESENCIO ONE-HALF TABLET BY MOUTH TWO TIMES A DAY FOR HEART/BLOOD PRESSURE. TAKE WITH OR IMMEDIATELY FOLLOWING FOOD. DISCONTINUE 07/13/2019 [id number] 11/14/2018 TIERRA KWONG 07/13/2018 YUMI BROWN [facility] SIMVASTATIN 40MG TAB TAKE ONE- HALF TABLET BY MOUTH AT BEDTIME FOR CHOLESTEROL - REPORT ANY UNEXPLAINED MUSCLE PAIN OR WEAKNESS TO YOUR PROVIDER ACTIVE 09/27/2019 [id number] 06/24/2019 BRITTANEY VILLEDA 09/26/2018 STEFANI SPAIN SIMVASTATIN 40MG TAB TAKE ONE- HALF TABLET BY MOUTH AT BEDTIME FOR CHOLESTEROL - REPORT ANY UNEXPLAINED MUSCLE PAIN OR WEAKNESS TO YOUR PROVIDER DISCONTINUE 09/23/2018 [id number] 07/05/2018 BRITTANEY VILLEDA 10/07/2017 STEFANI SPAIN TAMSULOSIN HCL 0.4MG CAP TAKE ONE CAPSULE BY MOUTH ONCE A DAY FOR PROSTATE. TAKE AT THE SAME TIME EACH DAY WITH FOOD. DISCONTINUE 06/17/2018 [id number] 06/14/2018 BRITTANEY VILLEDA 08/19/2017 STEFANI SPAIN TAMSULOSIN HCL 0.4MG CAP TAKE ONE CAPSULE BY MOUTH ONCE A DAY FOR PROSTATE. TAKE AT THE SAME TIME EACH DAY WITH FOOD. 08/02/2019 [id number] 06/24/2019 BRITTANEY VILLEDA 09/02/2018 STEFANI SPAIN TIOTROPIUM 2.5MCG/ACTUAT INHL,ORAL,60D,4GM INHALE 2 PUFFS BY ORAL INHALATION ONCE A DAY FOR BREATHING. DON'T USE WITH IPRATROPIUM - REPLACES ADVAIR. ACTIVE 06/24/2020 [id number] 06/24/2019 BRITTANEY VILLEDA 06/24/2019 STEFANI SPAIN TIOTROPIUM 2.5MCG/ACTUAT INHL,ORAL,60D,4GM INHALE 2 PUFFS BY ORAL INHALATION ONCE A DAY FOR BREATHING. DON'T USE WITH IPRATROPIUM - REPLACES ADVAIR. DISCONTINUE 10/13/2019 [id number] 03/18/2019 BRITTANEY VILLEDA 10/13/2018 STEFANI SPAIN Allergies, Adverse Reactions, Alerts No Known Medication Allergies Immunizations Combined list of: 1) all immunizations on record at all [facility] ies, and 2) all available immunizations on record at Department of Defense (Do D) facilities. Some immunizations on record at [facility] may not be included. Immunization Series Date Given Administered By Site Reaction Lot Number CVX Code [facility] [place] Department Manager Status Comments Source INFLUENZA, TRIVALENT, ADJUVANTED 01/08/2019 168 completed [facility] INFLUENZA, TRIVALENT, ADJUVANTED 01/02/2018 168 completed [facility] INFLUENZA, INJECTABLE, QUADRIVALENT, PRESERVATIVE FREE 01/25/2017 150 completed [facility] INFLUENZA, HIGH DOSE SEASONAL 12/22/2015 135 completed [facility] PNEUMOCOCCAL CONJUGATE PCV 13 12/22/2015 133 completed [facility] PNEUMOCOCCAL POLYSACCHARIDE [id number] 11/20/2014 33 completed [facility] INFLUENZA (HISTORICAL) 01/29/2014 88 completed [facility] INFLUENZA, SEASONAL, INJECTABLE, PRESERVATIVE FREE 01/29/2014 140 completed [facility] INFLUENZA (HISTORICAL) 12/06/2012 88 completed [facility] PNEUMOCOCCAL, UNSPECIFIED FORMULATION 03/13/2010 109 completed [facility] TDAP 2009 115 completed [facility] INFLUENZA, UNSPECIFIED FORMULATION 01/28/2009 88 completed [facility] NOVEL [id number], ALL FORMULATIONS 01/28/2009 128 completed [facility] INFLUENZA, UNSPECIFIED FORMULATION 01/28/2008 88 completed [facility] PNEUM[facility], UNSPECIFIED FORMULATION 01/28/2008 109 completed [facility] INFLUEN[facility], UNSPECIFIED FORMULATION 02/28/2006 88 completed [facility] [place]NEUMOC[place]CCAL, UNSPECIFIED FORMULATION 02/17/2006 109 completed [facility] [place] INFLUENZA, UNSPECIFIED FORMULATION 01/05/2005 88 completed [facility] Results Combined list of recent chemistry, hematology and other laboratory results going back no more than 15 months from the Department of Defense and Veterans Affairs facilities. Order Name Results Value Reference Range Date Interpretation Specimen Comments Source IRON/TIBC IRON BINDING CAPACIT Y [MASS/VOLUME] IN SERUM OR PLASMA 285 ug/dL 250 - 450 01/23/2019 Specimen Type: SERUM No comment entered. [facility] IRON/TIBC TRANSFERRIN [MASS/VOLUME] IN SERUM OR PLASMA 228 mg/dL 163 - 344 01/23/2019 Specimen Type: SERUM No comment entered. [facility] IRON/TIBC IRON SATURATION [MAS S FRACTION] IN SERUM OR PLASMA 60 % 2018 Specimen T ype: SERUM No comment entered. [facility] IRON/TIBC IRON [MASS/VOLUME] IN SERU M OR PLASMA 172 ug/dL 65 - 175 01/23/2019 Specimen Type: SERUM No comment entered. [facility] FERRITIN FERRITIN [MASS/VOLUME] IN S ERNIE OR PLASMA 182.4 ng/mL 22 - 275 01/23/2019 Specimen Type: SERUM No comment entered. [facility] VITAMIN B12 COBALAMIN (VITAMIN B12) [MASS/VOLUME] IN SERUM OR PLASMA 310 pg/mL 213 - 816 01/23/2019 Specimen Type: SERUM No comment entered. [facility] FOLATE FOLATE [MASS/VOLUME] IN SERUM OR PLASMA 18.5 ng/mL 7.0 - 20.0 01/23/2019 Specimen Type: SERUM No comment entered. [facility] OCCULT BLOOD FIT X1 SCREEN HEMOGLOBIN.GASTROINTESTINAL.LOWER [PRESENCE] IN STOOL BY IMMUNOASSAY --1ST SPECIMEN POSITIVE 1 03/17/2018 HH Specimen Type: FECES No comment entered. [facility] CBC & DIFF LEUKOCYTES [#/VOLUM E] IN BLOOD BY AUTOMATED COUNT 8.3 K/cmm 3.60 - 11.20 01/08/2019 Specimen Type: BLOOD No comment entered. [facility] CBC & DIFF ERYTHROCYTES [#/VOL UME] IN BLOOD BY AUTOMATED COUNT 3.94 M/ul 4.1 - 5.7 01/08/2019 L Specimen Type: BLOOD No comment entered. [facility] CBC & DIFF HEMOGLOBIN [MASS/VOLUME] IN BLOOD 13.1 g/dl 13.1 - 16.8 01/08/2019 Specimen T ype: BLOOD No comment entered. [facility] CBC & DIFF HEMATOCRIT [VOLUME FRACTION] OF BLOOD BY AUTOMATED COUNT 38.6 % 38.2 - 48.4 01/08/2019 Specimen Type: BLOOD No comment entered. [facility] CBC & DIFF MCV [ENTITIC VOLUME] BY A UTOMATED COUNT 98.0 fl 80.1 - 98.5 01/08/2019 Specimen Type: BLOOD No comment entered. [facility] CBC & DIFF MCH [ENTITIC MASS] BY AUT OMATED COUNT 33.2 pg 27.0 - 34.0 01/08/2019 Specimen T ype: BLOOD No comment entered. [facility] CBC & DIFF MCHC [MASS/VOLUME] BY AUT OMATED COUNT 33.9 g/dl 33.0 - 36.0 01/08/2019 Specimen Type: BLOOD No comment entered. [facility] CBC & DIFF PLATELETS [#/VOLUME ] IN BLOOD BY AUTOMATED COUNT 329 K/cmm 150 - 400 01/08/2019 Specimen Type: BLOOD No comment entered. [facility] CBC & DIFF PLATELET MEAN VOLUM E [ENTITIC VOLUME] IN BLOOD BY AUTOMATED COUNT 9.0 fl 7.5 - 11.2 01/08/2019 Specimen Type: BLOOD No comment entered. [facility] CBC & DIFF ERYTHROCYTE DISTRIB UTION WIDTH [RATIO] BY AUTOMATED COUNT 12.5 % 11.8 - 15.1 01/08/2019 Specimen Type: BLOOD No comment entered. [facility] CBC & DIFF LYMPHOCYTES/100 MARCELINA KOCYTES IN BLOOD BY AUTOMATED COUNT 31.9 % 01/08/2019 Specimen Type: BLOOD No comment entered. [facility] CBC & DIFF NEUTROPHILS/100 MARCELINA KOCYTES IN BLOOD BY AUTOMATED COUNT 52.2 % 01/08/2019 Specimen Type: BLOOD No comment entered. [facility] CBC & DIFF MONOCYTES/100 LEUKO CYTES IN BLOOD BY AUTOMATED COUNT 10.2 % 01/08/2019 Specimen Type: BLOOD No comment entered. [facility] CBC & DIFF MONOCYTES [#/VOLUME ] IN BLOOD BY AUTOMATED COUNT 0.9 K/cmm 0.19 - 0.80 01/08/2019 H Specimen Type: BLOOD No comment entered. [facility] CBC & DIFF NEUTROPHILS [#/VOLU ME] IN BLOOD BY AUTOMATED COUNT 4.3 K/cmm 2.10 - 8.00 01/08/2019 Specimen Type: BLOOD No comment entered. [facility] CBC & DIFF EOSINOPHILS [#/VOLU ME] IN BLOOD BY AUTOMATED COUNT 0.4 K/cmm 0.00 - 0.60 01/08/2019 Specimen Type: BLOOD No comment entered. [facility] CBC & DIFF BASOPHILS [#/VOLUME ] IN BLOOD BY AUTOMATED COUNT 0.1 K/cmm 0.00 - 0.20 01/08/2019 Specimen Type: BLOOD No comment entered. [facility] CBC & DIFF EOSINOPHILS/100 MARCELINA KOCYTES IN BLOOD BY AUTOMATED COUNT 4.3 % 01/08/2019 Specimen Type: BLOOD No comment entered. [facility] CBC & DIFF BASOPHILS/100 LEUKO CYTES IN BLOOD BY AUTOMATED COUNT 0.7 % 01/08/2019 Specimen Type: BLOOD No comment entered. [facility] CBC & DIFF LYMPHOCYTES [#/VOLU ME] IN BLOOD BY AUTOMATED COUNT 2.7 K/cmm 0.77 - 4.50 01/08/2019 Specimen Type: BLOOD No comment entered. [facility] CBC & DIFF IMMATURE GRANULOCYT ES [#/VOLUME] IN BLOOD BY AUTOMATED COUNT 0.06 K/cmm 0.00 - 0.05 01/08/2019 H Specimen Type: BLOOD No comment entered. [facility] CBC & DIFF IMMATURE GRANULOCYT ES/100 LEUKOCYTES IN BLOOD BY AUTOMATED COUNT 0.7 % 01/08/2019 Specimen Type: BLOOD No comment entered. [employer] COMPREHENSIVE METABOLIC PANEL CREATININE [MASS/VOLUME] IN SERUM OR PLASMA 0.83 mg/dL 0.7 - 1.3 01/08/2019 Specimen Type: PLASMA Comment: For eGFR: eGFR results >60 are imprecise. Many variables affect the calculated result. Interpretation of eGFR results >60 must be monitored over time. [employer] COMPREHENSIVE METABOLIC PANEL UREA NITROGEN [MASS/VOLUME] IN SERUM OR PLASMA 7 mg/dL 9 - 25 01/08/2019 L Specimen Type: PLASMA Comment: For eGFR: eGFR results >60 are imprecise. Many variables affect the calculated result. Interpretation of eGFR results >60 must be monitored over time. [employer] COMPREHENSIVE METABOLIC PANEL GLUCOSE [MASS/VOLUME] IN SERUM OR PLASMA 99 mg/dL 72 - 99 01/08/2019 Specimen Type: PLASMA Comment: For eGFR: eGFR results >60 are imprecise. Many variables affect the calculated result. Interpretation of eGFR results >60 must be monitored over time. [employer] COMPREHENSIVE METABOLIC PANEL SODIUM [MOLES/VOLUME] IN SERUM OR PLASMA 138 mEq/L 136 - 145 01/08/2019 Specimen Type: PLASMA Comment: For eGFR: eGFR results >60 are imprecise. Many variables affect the calculated result. Interpretation of eGFR results >60 must be monitored over time. [employer] COMPREHENSIVE METABOLIC PANEL POTASSIUM [MOLES/VOLUME] IN SERUM OR PLASMA 4.5 mEq/L 3.5 - 5.0 01/08/2019 Specimen Type: PLASMA Comment: For eGFR: eGFR results >60 are imprecise. Many variables affect the calculated result. Interpretation of eGFR results >60 must be monitored over time. [employer] COMPREHENSIVE METABOLIC PANEL CALCIUM [MASS/VOLUME] IN SERUM OR PLASMA 8.8 mg/dL 8.4 - 10.4 01/08/2019 Specimen Type: PLASMA Comment: For eGFR: eGFR results >60 are imprecise. Many variables affect the calculated result. Interpretation of eGFR results >60 must be monitored over time. [employer] COMPREHENSIVE METABOLIC PANEL PROTEIN [MASS/VOLUME] IN SERUM OR PLASMA 6.8 g/dL 6.0 - 8.6 01/08/2019 Specimen Type: PLASMA Comment: For eGFR: eGFR results >60 are imprecise. Many variables affect the calculated result. Interpretation of eGFR results >60 must be monitored over time. [employer] COMPREHENSIVE METABOLIC PANEL ALBUMIN [MASS/VOLUME] IN SERUM OR PLASMA 4.3 g/dl 3.4 - 5.0 01/08/2019 Specimen Type: PLASMA Comment: For eGFR: eGFR results >60 are imprecise. Many variables affect the calculated result. Interpretation of eGFR results >60 must be monitored over time. [employer] COMPREHENSIVE METABOLIC PANEL BILIRUBIN.TOTAL [MASS/VOLUME] IN SERUM OR PLASMA 0.5 mg/dL 0.2 - 1.2 01/08/2019 Specimen Type: PLASMA Comment: For eGFR: eGFR results >60 are imprecise. Many variables affect the calculated result. Interpretation of eGFR results >60 must be monitored over time. [employer] COMPREHENSIVE METABOLIC PANEL ASPARTATE AMINOTRANSFERASE [ENZYMATIC ACTIVITY/VOLUME] IN SERUM OR PLASMA 15 U/L 5 - 34 01/08/2019 Specimen Type: PLASMA Comment: For eGFR: eGFR results >60 are imprecise. Many variables affect the calculated result. Interpretation of eGFR results >60 must be monitored over time. [employer] COMPREHENSIVE METABOLIC PANEL ALANINE AMINOTRANSFERASE [ENZYMATIC ACTIVITY/VOLUME] IN SERUM OR PLASMA 12 U/L 8 - 40 01/08/2019 Specimen Type: PLASMA Comment: For eGFR: eGFR results >60 are imprecise. Many variables affect the calculated result. Interpretation of eGFR results >60 must be monitored over time. [employer] COMPREHENSIVE METABOLIC PANEL ANION GAP IN SERUM OR PLASMA 8.2 2018 Specimen T ype: PLASMA Comment: For eGFR: eGFR results >60 are imprecise. Many variables affect the calculated result. Interpretation of eGFR results >60 must be monitored over time. [facility] COMPREHENSIVE METABOLIC PANEL CHLORIDE [MOLES/VOLUME] IN SERUM OR PLASMA 102 mEq/L 98 - 107 01/08/2019 Specimen Type: PLASMA Comment: For eGFR: eGFR results >60 are imprecise. Many variables affect the calculated result. Interpretation of eGFR results >60 must be monitored over time. [facility] COMPREHENSIVE METABOLIC PANEL "CARBON DIOXIDE, TOTAL [MOLES/VOLUME] IN SERUM OR PLASMA" 27.8 mEq/L 22 - 31 01/08/2019 Specimen Type: PLASMA Comment: For eGFR: eGFR results >60 are imprecise. Many variables affect the calculated result. Interpretation of eGFR results >60 must be monitored over time. [facility] COMPREHENSIVE METABOLIC PANEL ALKALINE PHOSPHATASE [ENZYMATIC ACTIVITY/VOLUME] IN SERUM OR PLASMA 63 U/L 40 - 150 01/08/2019 Specimen Type: PLASMA Comment: For eGFR: eGFR results >60 are imprecise. Many variables affect the calculated result. Interpretation of eGFR results >60 must be monitored over time. [facility] COMPREHENSIVE METABOLIC PANEL GLOMERULAR FILTRATION RATE/1.73 SQ M.PREDICTED [VOLUME RATE/AREA] IN SERUM OR PLASMA BY CREATININE- BASED FORMULA (MDRD) >60 01/08/2019 Specimen Type: PLASMA Comment: For eGFR: eGFR results >60 are imprecise. Many variables affect the calculated result. Interpretation of eGFR results >60 must be monitored over time. [facility] LIPID PROFILE(HDL,TRIG,CHOL,LDL) CHOLESTEROL [MASS/VOLUME] IN SERUM OR PLASMA 145 mg/dL 0 - 200 01/08/2019 Specimen Type: PLASMA Comment: For eGFR: eGFR results >60 are imprecise. Many variables affect the calculated result. Interpretation of eGFR results >60 must be monitored over time. [facility] LIPID PROFILE(HDL,TRIG,CHOL,LDL) TRIGLYCERIDE [MASS/VOLUME] IN SERUM OR PLASMA 74 mg/dL 0 - 150 01/08/2019 Specimen Type: PLASMA Comment: For eGFR: eGFR results >60 are imprecise. Many variables affect the calculated result. Interpretation of eGFR results >60 must be monitored over time. [facility] LIPID PROFILE(HDL,TRIG,CHOL,LDL) CHOLESTEROL IN HDL [MASS/VOLUME] IN SERUM OR PLASMA 62 mg/dL 01/08/2019 Specimen Type: PLASMA Comment: For eGFR: eGFR results >60 are imprecise. Many variables affect the calculated result. Interpretation of eGFR results >60 must be monitored over time. [facility] LIPID PROFILE(HDL,TRIG,CHOL,LDL) CHOLESTEROL IN LDL [MASS/VOLUME] IN SERUM OR PLASMA BY CALCULATION 68 mg/dL 0 - 99.9 01/08/2019 Specimen Type: PLASMA Comment: For eGFR: eGFR results >60 are imprecise. Many variables affect the calculated result. Interpretation of eGFR results >60 must be monitored over time. [facility] TSH THYROTROPIN [UNITS/VOLUME] IN SE RUM OR PLASMA 1.90 uIU/mL 0.47 - 5.00 01/08/2019 Specimen Type: SERUM No comment entered. [facility] PROSTATIC SPECIFIC ANTIGEN(TOTAL) PROSTATE SPECIFIC AG [MASS/VOLUME] IN SERUM OR PLASMA 1.1 ng/mL 0 - 4 01/08/2019 Specimen Type: SERUM No comment entered. [facility] Vital Signs Combined list of inpatient and outpatient Vital Signs from all Department of [facility] and/or Veterans Affairs medical facilities within the last 15 months. The included entries comply with the patient's data sharing authorizations. Vital Sign Value Date Comments Source PAIN 0 01/08 08:55:00 [facility] Encounters Combined list of encounters at Department of Defense and/or Veterans Affairs ([place] ) for the last 15 months. Not all VA inpatient encounters are included. The incl uded entries comply with the patient's data sharing authorizations. Location Location Details Encounter Type Encounter Number Reason For Visit Attending Provider ADM Date DC Date Status Disposition Source Outpatient Encounter [id number] _MAPID:[id number] 05/01/2018 [facility] Outpatient Encounter [id number] _MAPID:[id number] 05/02/2018 [facility] OFFICE/OUT PAT[place] VIS[place] EST [id number] ICD-10 -CM M54.5 Low back pain with Provider Comments: Low Back Pain CHOUDHURYBELLA 05/31/2018 [facility] Outpatient Encounter [id number] _MAPID:[id number] 06/05/2018 [place] [address] Outpatient Encounter [id number] _MAPID:[id number] 07/02/2018 [facility] Outpatient Encounter [id number] _MAPID:[id number] 07/02/2018 [place] Out[place] Encounter [id number] _MAPID:[id number] 07/02/2018 [facility] Outpatient Encounter [id number] _MAPID:[id number] 07/12/2018 [facility] Outpatient Encounter [id number] _MAPID:[id number] 07/18/2018 [facility] Outpatient Encounter [id number] _MAPID:[id number] 07/25/2018 [facility] Outpatient Encounter [id number] _MAPID:e [id number] 08/01/2018 [facility] 15 Outpatient Encounter [id number] _MAPID:e [id number] 08/07/2018 [facility] 15 Outpatient Encounter [id number] _MAPID:[id number] 08/07/2018 [facility] Outpatient Encounter [id number] _MAPID:[id number] 08/10/2018 [facility] Out[facility] Encounter [id number] ICD-10 -CM Z71.2 Person consulting for explanation of exam or test findings with Provider Comments: Explanation of Exam or Test Finding BELLA CHOUDHURY 08/15/2018 [facility] Outpatient Encounter [id number] _MAPID:e [id number] 08/28/2018 [facility] 15 Outpatient Encounter [id number] _MAPID:e [id number] 09/07/2018 [facility] 15 Outpatient Encounter [id number] _MAPID:[id number] 10/03/2018 [facility] Outpatient Encounter [id number] _MAPID:[id number] 10/04/2018 [facility] Outpatient Encounter [id number] _MAPID:[id number] 10/10/2018 [facility] Outpatient Encounter [id number] _MAPID:[id number] 10/16/2018 [facility] Outpatient Encounter [id number] _MAPID:e [id number] 10/22/2018 [facility] 15 Outpatient Encounter [id number] _MAPID:e [id number] 10/29/2018 [facility] 15 Outpatient Encounter [id number] _MAPID:e [id number] 11/02/[facility] En[facility] [id number] _MAPID:[id number] 11/02/2018 YUMI BROWN [facility] Outpatient Encounter [id number] _MAPID:e [id number] 11/09/2018 [facility] 15 Outpatient Encounter [id number] _MAPID:e [id number] 11/23/2018 [facility] 15 Outpatient Encounter [id number] _MAPID:[id number] 12/06/2018 [facility] Outpatient Encounter [id number] _MAPID:e [id number] 01/08/2019 [facility] 15 OFFICE/OUT PATIENT VISIT EST [id number] ICD-10 -CM I10. Essential (primary) hypertension with Provider Comments: Essential (Primary) Hypertension RAMY TRENT 01/08/2019 [facility] Outpatient Encounter [id number] _MAPID:e [id number] 01/25/2019 [facility] 15 Outpatient Encounter [id number] _MAPID:e ndReason9 01/27/2019 [facility] 15 Outpatient Encounter [id number] _MAPID:e ndReason7 01/28/2019 [facility] 15 Outpatient Encounter [id number] _MAPID:e ndReason8 01/28/2019 [facility] 15 Outpatient Encounter [id number] _MAPID:e ndReason6 02/04/2019 [facility] 15 Outpatient Encounter [id number] _MAPID :endReason5 02/08/2019 [facility] Outpatient Encounter [id number] _MAPID :endReason4 02/08/2019 [facility] Outpatient Encounter [id number] _MAPID :endReason3 02/11/2019 [facility] Outpatient Encounter [id number] _MAPID:e ndReason2 05/08/2019 [facility] 15 Outpatient Encounter [id number] _MAPID :endReason1 05/08/2019 YUMI BROWN [facility] Procedures No Data Provided for This Section Social History Combined list of available smoking, tobacco, and other social history on record at Department of Defense and/or Veterans Affairs facilities. The included entrie s comply with the patient's data sharing authorizations. Social History Type Response Date Comment Source Tobacco smoking status NHIS NON-TOBACCO USER 01/02/2019 [facility] History of tobacco use VA-TO BACCO FORMER USER 05/28/2018 [facility] History of tobacco use VA-TO BACCO QUIT 15 YRS OR MORE 05/28/2018 [facility] History of tobacco use NON-T OBACCO USER 12/25/2017 [facility] History of tobacco use NON-T OBACCO USER 01/25/2017 [facility] History of tobacco use NON-T OBACCO USER 12/22/2015 [facility] History of tobacco use TOBAC CO SCREEN COMPLETED 09/22/2011 [facility] History of tobacco use QUIT TOBACCO IN THE LAST 12 MONTHS 09/22/2011 [facility] History of tobacco use TOBAC CO MEDICATION INTERVENTION 10/28/2010 [facility] History of tobacco use TOBAC CO MEDICATION REFERRAL 08/03/2010 Dr. Lincoln [facility] History of tobacco use CURRE NT TOBACCO USER 08/03/2010 [facility] Assessment and Plan No Data Provided for This Section Plan of Care Date/Time Care Activity Care Activity Detail Facility 01/09/2020 AMBULATORY - MEDICI NE AMBULATORY - MEDICINE [facility] Family History No Data Provided for This Section Advance Directives List of completed, amended, or rescinded Advance Directives on record at [facility]. An actual copy of the Directive is not included. Date Advance Directive Provider Source 01/02/2018 ADVANCE DIRECTIVE D ISCFLO LYNN [facility] 10/17/2000 ADVANCE DIRECTIVE EUNICE RODRIGUEZ [facility], [place] 15 Functional Status No Data Provided for This Section
--- OUTSIDE RECORDS SUMMARY | 2019-08-16 03:53 | XMS REPORT | Encounter Summary ---
Author Author Department [facility] Organization [facility] Address [address] [place] [phone] Phone Unavailable Care Team Providers Care Surveyor Instrument Assistant Name Role Phone BRITTANEY VILLEDA PCP Unavailable [...] PART B Apr 13, 2007 PART B [id number] [phone] JUAN MANUEL MARTIN PATIENT MEDICARE (WNR) MEDICARE (M) PART B Apr 13, 2007 PART B [id number] JUAN MANUEL MARTIN PATIENT MEDICARE (WNR) MEDICARE (M) PART A Sep 10, 2005 PART A [id number] JUAN MANUEL MARTIN PATIENT MEDICARE (WNR) MEDICARE (M) PART A Sep 10, 2005 PART A [id number] JUAN MANUEL MARTIN PATIENT MEDICARE (WNR) MEDICARE (M) PART A Sep 10, 2005 PART A [id number] VERONICAJUAN MANUEL PATIENT Selected Encounter This section includes the information on record at [place] for the Encounter. Date/Time Encounter Type Encounter Description Reason Provider Source Feb 11, 2019 11:36 AM Outpatient Encounter ADMIN PAT ACTIVTIES (MELANIE CUADRA) [facility] IHE Encounter Template Text not [...] Hematology Lab R esults on record with [place] for the patient. Radiology Reports and Pathology [...] and tobacco- related health factors from the [place] facility where the Encounter took place. Current Smoking Status This section includes the most current smoking, or tobacco -related health factor, from the [place] facility where the Encounter took place. Date/Time Current Smoking Status Comment Facility Jan 02, 2019 08:20 AM NON-TOBACCO USER [facility] Tobacco Use History This section includes a history of the smoking, or tobacco -related health factors, that were collected on or before the date of the Encoun ter. The data comes from the [place] facility where the Encounter took place. Date/Time Smoking Status/Tobacco Use Comment Leanna barbosa May 28, 2018 11:45 AM VA-TOBACCO FORMER USER [facility] May 28, 2018 11:45 AM VA-TOBACCO QUIT 15 YRS OR MORE [facility] Dec 25, 2017 02:23 PM NON-TOBACCO USER [facility] Jan 25, 2017 09:53 AM NON-TOBACCO USER [facility] Dec 22, 2015 09:45 AM NON-TOBACCO USER [facility] Advance Directives: All historical and current Section [...] docume nt. The data comes from all [place] facilities. Date Advance Directives Provider Source Jan 02, 2018 ADVANCE DIRECTIVE DISCUSSION FLO KRUEGER [facility] Oct 17, 2000 ADVANCE DIRECTIVE EUNICE RODRGIUEZ [facility], [facility] 15 Allergies and Adverse Reactions (ADRs): All historical and current Section Date Range: From patient's date of to the date document was create d. This section includes Allergies and Adverse Reactions (ADR s) on record with VA for the patient. The data comes from a ll [place] treatment facilities. It does not list Allergies/ADRs that were removed or entered in error. Some allergies/ADRs may be reported in t he Immunization section. Allergen Event Date Event Type Reaction(s) Severity Source No Known Allergies [facility] No Allergy Assessment on File [facility] Medications: VA dispensed (-15 months) and Non-VA Documented (Obtained Outside V A) Section Date Range: 1) prescriptions processed by a [place] pharmacy in the last 15 m ont, and 2) all medications recorded in the [place] medical record as "non-VA medic ations". Pharmacy terms refer to [place] pharmacy's work on prescriptions. VA patient s are advised to take their medications as instructed by their health care team. The data comes from all [place] treatment facilities. Glossary of Pharmacy Terms:Active = A prescription that can be filled at the local [place] pharmacy.Active: On Hold = An active prescription that will not be filled until pharmacy resolves the issue.Active: Susp = An active prescription that is not scheduled to be filled yet.Clinic Order = A medication received during a visit to a [place] clinic or emergency department (currently not available).Discontinued [...] may be a prescription from either the [place] or other providers that was filled outside the [place]. Or, it may be an over the [...] A DAY NEEDED 180 Jan 09, 2020 [id number] Apr 10, 2019 MAK VILLEDA [facility] ALBUTEROL SO4 0.083% INHL,3ML Discontinued USE 3 MLS IN NEBULIZER FOR INHALATION TWO TIMES A DAY NEEDED 180 Jan 27, 2019 [id number] Nov 01, 2018 BRITTANEY VENEGAS ALBUTEROL SO4 90MCG/ACTUAT (CFC-F) INHL,ORAL,6.7GM Active INHALE 2 PUFFS BY ORAL INHALATION TWO TIMES A DAY NEEDED - RINSE MOUTHPIECE FREQUENTLY TO PREVENT CLOGGING 2 Aug 30, 2019 [id number] Mar 18, 2019 BRITTANEY VILLEDA ALBUTEROL SO4 90MCG/ACTUAT (CFC-F) INHL,ORAL,6.7GM Discontin ued INHALE 2 PUFFS BY ORAL INHALATION TWO TIMES A DAY NEEDED - RINSE MOUTHPIECE FREQUENTLY TO PREVENT CLOGGING 2 Mar 27, 2019 [id number] Aug 30, 2018 BRITTANEY VILLEDA CBTER[facility]ENCE BUDESONIDE 80MCG/FORMOTEROL FUM 4.5MCG/SPRAY INHL,ORAL,10.2G M Active INHALE 2 PUFFS BY ORAL INHALATION TWO TIMES A DAY FOR BREATHING. SHAKE WELL. RINSE MOUTH AND SPIT AFTER EACH USE. 3 Jun 24, 2020 [id number] Jun 24, 2019 BRITTANEY VILLEDA BUDESONIDE 80MCG/FORMOTEROL FUM 4.5MCG/SPRAY INHL,ORAL,10.2G M Discontinued INHALE 2 PUFFS BY ORAL INHALATION TWO TIMES A DAY FOR BREATHING. SHAKE WELL. RINSE MOUTH AND SPIT AFTER EACH USE. 3 Dec 07, 2019 [id number] Mar 18, 2019 BRITTANEY VILLEDA FERROUS SO4 324MG TAB,EC Active TAKE ONE TABLET BY MOUTH TWO TIMES A DAY FOR IRON SUPPLEMENTATION. MAY TAKE WITH FOOD IF NOT TOLERATED ON EMPTY STOMACH 200 Jan 09, 2020 [id number] Apr 23, 2019 BRITTANEY VILLEDA FERROUS SO4 324MG TAB,EC Discontinued TAKE ONE TABLET BY MOUTH TWO TIMES A DAY FOR IRON SUPPLEMENTATION. MAY TAKE WITH FOOD IF NOT TOLERATED ON EMPTY STOMACH 200 May 02, 2019 [id number] Nov 14, 2018 BRITTANEY VILLEDA C FOLIC ACID 1MG TAB Active TAKE ONE TABLET BY MOUTH ONCE A DAY 90 Nov 22, 2019 [id number] Mar 18, 2019 BRITTANEY VILLEDA FOLIC ACID 1MG TAB Discontinued TAKE ONE TABLET BY MOUTH ONCE A DAY 90 May 02, 2019 [id number] Sep 26, 2018 BRITTANEY VILLEDA GABAPENTIN 300MG CAP Discontinued TAKE 2 CAPSULES BY MOUTH FOUR TITO ES A DAY 720 Jan 27, 2019 [id number] Nov 14, 2018 BRITTANEY VILLEDA GABAPENTIN 400MG CAP Active TAKE 1 CAPSULE BY MOUTH THREE TITO ES A DAY 270 Dec 07, 2019 [id number] Mar 18, 2019 BRITTANEY VILLEDA HYDROCODONE 10MG/ACETAMINOPHEN 325MG TAB Non-VA TAKE ONE TABLET BY MOUTH FOUR TIMES A DAY Non-VA Documented by: RAMY TRENT nted at: [facility] LISINOPRIL 10MG TAB Discontinued TAKE ONE-HALF TABLET BY MOUTH EVERY MORNING FOR HEART OR HIGH BLOOD PRESSURE 15 Jun 01, 2019 [id number] Jun 02, 2018 BRITTANEY VILLEDA LOSARTAN 25MG TAB Active TAKE ONE TABLET BY MOUTH ONCE A DAY FOR BLOOD PRESSURE 90 Jan 09, 2020 [id number] Apr 23, 2019 BRITTANEY VILLEDA C LOSARTAN 25MG TAB Discontinued TAKE ONE TABLET BY M OUTH ONCE A DAY FOR BLOOD PRESSURE 90 July 13, 2019 [id number] Nov 14, 2018 TIERRA KWONG [facility] MELOXICAM 15MG TAB TAKE ONE TABLET BY M OUTH ONCE A DAY FOR PAIN OR INFLAMMATION. 90 Jun 01, 2019 [id number] Mar 18, 2019 BRITTANEY VILLEDA METOPROLOL TARTRATE 25MG TAB Active TAKE ONE-SMITH LF TABLET BY MOUTH TWO TIMES A DAY FOR HEART/BLOOD PRESSURE. TAKE WITH OR IMMEDIATELY FOLLOWING FOOD. 90 Jan 09, 2020 [id number] Apr 23, 2019 BRITTANEY VILLEDA METOPROLOL TARTRATE 25MG TAB Discontinued TAKE ONE-SMITH LF TABLET BY MOUTH TWO TIMES A DAY FOR HEART/BLOOD PRESSURE. TAKE WITH OR IMMEDIATELY FOLLOWING FOOD. July 13, 2019 [id number] Nov 14, 2018 [facility] SIMVASTATIN 40MG TAB Active TAKE ONE-HALF TABLE T BY MOUTH AT BEDTIME FOR CHOLESTEROL - REPORT ANY UNEXPLAINED MUSCLE PAIN OR WEAKNESS TO YOUR PROVIDER 45 Sep 27, 2019 [id number] Jun 24, 2019 BRITTANEY VILLEDA C SIMVASTATIN 40MG TAB Discontinued TAKE ONE-HALF TABLE T BY MOUTH AT BEDTIME FOR CHOLESTEROL - REPORT ANY UNEXPLAINED MUSCLE PAIN OR WEAKNESS TO YOUR PROVIDER 45 Sep 23, 2018 [id number] Jul 05, 2018 BRITTANEY VILLEDA C TAMSULOSIN HCL 0.4MG CAP Discontinued TAKE ONE CAPSUL E BY MOUTH ONCE A DAY FOR PROSTATE. TAKE AT THE SAME TIME EACH DAY WITH FOOD. 90 Jun 17 9 [id number] Jun 14, 2018 BRITTANEY VILLEDA TAMSULOSIN HCL 0.4MG CAP TAKE ONE CAPSUL E BY MOUTH ONCE A DAY FOR PROSTATE. TAKE AT THE SAME TIME EACH DAY WITH FOOD. 90 August 01 0 [id number] Jun 24, 2019 BRITTANEY VILLDEA TIOTROPIUM 2.5MCG/ACTUAT INHL,ORAL,60D,4GM Active INHALE 2 PUFFS BY ORAL INHALATION ONCE A DAY FOR BREATHING. DON'T USE WITH IPRATROPIUM - REPLACES ADVAIR. 3 Jun 24, 2020 [id number] Jun 24, 2019 BRITTANEY VILLEDA [facility] TIOTROPIUM 2.5MCG/ACTUAT INHL,ORAL,60D,4GM Discontinued INHALE 2 PUFFS BY ORAL INHALATION ONCE A DAY FOR BREATHING. DON'T USE WITH IPRATROPIUM - REPLACES ADVAIR. 3 Oct 13, 2019 [id number] Mar 18, 2019 BRITTANEY VILLEDA [facility] Problems (Conditions): All historical and current Section Date Range: From patient's date of to the date document was create d. This section includes a list of Problems (Conditions) know n to [place] for the patient. It includes both active and inacti ve problems (conditions). The data comes from all [place] treatment facilities. Problem Status Problem Code Date of Onset Date of Resolution Comm ent(s) Provider Source Actinic keratosis (SNOMED CT 604453674) Active 702.0 BRITTANEY VILLEDA [facility] Alcohol Dependence * (ICD-9-CM 303.90/303.91) Active 303.90 ALEXANDRA KWONG [facility] Anemia Active 285.9 SATHISH SCOTT [facility] ANGINA PECTORIS NEC/NOS 413.9 Active 413.9 [facility] Anxiety Disorder Active 300.[address] [facility] Benign Neoplasm Skin Head, Neck, Scalp Active 216.4 RENALDO DACOSTA [facility] CABG Active 799.9 Oct 05, 2006 E ntered By: SATHISH SCOTT Comment: feb, 4-vessel SATHISH SCOTT [facility] Chest discomfort (SNOMED CT 873145694) Active 786.59 BRITTANEY VILLEDA [facility] Chronic airway obstruction, Not Elsewhere Classified Active 496. AURELIANO LINCOLN MD [facility] Chronic Low Back Pain Active 724.[address] [facility] COPD * (ICD-9-CM 496.) Active 496. SCOTT,[facility] Coronary Artery Disease * (ICD-9-CM 414.9) Active 414.9 ALEXANDRA KWONG [facility] Coronary Atherosclerosis of [place] Coronary Vessel Active 414.01 August 03, 2010 Entered By: AURELIANO LINCOLN MD Comment: Bypass surgery AURELIANO LINCOLN MD [facility] Disorder of shoulder (SNOMED CT 088718614) Active 719.91 [facility]ED[facility] Essential Hypertension Active 401.[address] [facility] Hyperlipidemia Active 272.4 [facility]ISH SCOTT [facility] HYPERTENSION NOS 401.9 Active 401.9 ALEXANDRA KWONG [facility] Impotence (SNOMED CT 706506512) Active 302.72 [facility] 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 [facility] Marijuana Dependence unspecified Active 304.[address] [facility] Microscopic Hematuria (ICD-9-CM 599.72) Active 599.72 [facility] Other and unspecified hyperlipidemia Active 272.[address] [facility] Other, mixed, or unspecified drug abuse, continuous use Active 30 5.91 Jan 30, 2009 Entered By: SATHISH SCOTT Comment: urine drug screen positive for opitates and marijuannaMay 2009 Entered By: SATHISH SCOTT Comment: buying hydrocodone "off the street" [facility]ATHISH SCOTT [facility] Pain in joint involving ankle and foot (ICD-9-CM 719.47) Active 719 .47 SATHISH SCOTT [facility] Papular eruption (SNOMED CT 086986365) Active 709.8 [facility]ITTANEY VILLEDA [facility] Personal History of Noncompliance with M edical Treatment, Presenting Hazards to Active V15.81 SATHISH SCOTT [facility] Tobacco dependence syndrome (SNOMED CT 23603501) Active [id number] July 24, 2009 Entered By: SATHISH SCOTT Comment: one ppd AUSTINYUMI Aleta YUMI Osuna [facility] Transient Ischemic Attack * (ICD-9-CM 435.9) Active 435.9 SATHISH SCOTT [facility] ANIETY STAT NOS 300.00 Inactive 300.00 Jan 05, 2005 [facility]DR[facility] FLOREZ [facility] Bronchitis * (ICD-9-CM 490.) Inactive 490. Jan 05, 2005 BRITTANEY VILLEDA [facility] Postsurgical Aortocoronary Bypass Status (ICD-9-CM V45.81) Inactive V45.81 Oct 05, 2006 SATHISH SCOTT Can [facility] Radiology Reports: +/- 30 days of the encounter No Data Provided for This Section Pathology Reports: +/- 30 days of the encounter No Data Provided for This Section Encounter Notes: All associated encounter notes This section contains the clinical notes associated to the Encounter. Date/Time Encounter Note(s) Provider Source Feb 11, 2019 11:36 AM ADMINISTRATIVE NOTE: LOCAL TITLE: [place]-ADMIN [facility] STANDARD TITLE: ADMINISTRATIVE NOTE DATE OF NOTE: FEB 11, 2019@11:36 ENTRY DATE: FEB 11, 2019@11:36:18 AUTHOR: DARCY WEN EXP COSIGNER: URGENCY: STATUS: COMPLETED [facility] Administrative Note: RECORDS RECEIVED TODAY by: Fax Nature of report:History & Physical/Operation report Date(s) of record(s):01/28/2019 & 02/01/2019 Sending constitution party:[facility]/Brittaney Cody MD FACS /es/ DARCY KO Signed: 02/11/2019 11:37 DARCY WEN OC
--- OUTSIDE RECORDS SUMMARY | 2019-08-16 03:53 | XMS REPORT | Encounter Summary ---
Author Author Department [facility] Address [address] [place] [address] Phone Unavailable Care Team Providers Care Test Operator Name Role Phone BRITTANEY VILLEDA PCP Unavailable [...] PART B Apr 13, 2007 PART B [id number] [phone] JUAN MANUEL MARTIN PATIENT MEDICARE (WNR) MEDICARE (M) PART B Apr 13, 2007 PART B [id number] JUAN MANUEL MARTIN PATIENT MEDICARE (WNR) MEDICARE (M) PART A Sep 10, 2005 PART A [id number] MARTIN,GARY PATIENT MEDICARE (WNR) MEDICARE (M) PART A Sep 10, 2005 PART A [id number] [phone] JUAN MANUEL MARTIN PATIENT MEDICARE (WNR) MEDICARE (M) PART A Sep 10, 2005 PART A [id number] JUAN MANUEL MARTIN PATIENT Selected Encounter This section includes the information on record at [place] for the Encounter. Date/Time Encounter Type Encounter Description Reason Provider Source Feb 08, 2019 01:08 PM Outpatient Encounter ADMIN PAT ACTIVTIES (MELANIE CAUDRA) [facility] IHE Encounter Template Text not [...] Hematology Lab R esults on record with [place] for the patient. Radiology Reports and Pathology [...] and tobacco- related health factors from the [place] facility where the Encounter took place. Current Smoking Status This section includes the most current smoking, or tobacco -related health factor, from the [place] facility where the Encounter took place. Date/Time Current Smoking Status Comment Facility Jan 02, 2019 08:20 AM NON-TOBACCO USER [facility] Tobacco Use History This section includes a history of the smoking, or tobacco -related health factors, that were collected on or before the date of the Encoun ter. The data comes from the [place] facility where the Encounter took place. Date/Time [...] docume nt. The data comes from all [place] facilities. Date Advance Directives Provider Source Jan 02, 2018 ADVANCE DIRECTIVE DISCUSSION FLO KRUEGER [facility] Oct 17, 2000 ADVANCE DIRECTIVE EUNICE RODRIGUEZ [facility], [facility] 15 Allergies and Adverse Reactions (ADRs): All historical and current Section Date Range: From patient's date of to the date document was create d. This section includes Allergies and Adverse Reactions (ADR s) [facility] record with [facility] for [facility]. The data comes from a ll [place] treatment facilities. It does not list Allergies/ADRs that were removed or entered in error. Some allergies/ADRs may be reported in t he Immunization section. Allergen Event Date Event Type Reaction(s) Severity Source No Known Allergies [facility] No Allergy Assessment on File [facility] Medications: VA dispensed (-15 months) and Non-VA Documented (Obtained Outside V A) Section Date Range: 1) prescriptions processed by a [place] pharmacy in the last 15 m ont, and 2) all medications recorded in the [place] medical record as "non-VA medic ations". Pharmacy terms refer to [place] pharmacy's work on prescriptions. [facility] patient s are advised to take their medications as instructed by their health care team. The data comes from all [place] treatment facilities. Glossary of Pharmacy Terms:Active = A prescription that can be filled at the local [place] pharmacy.Active: On Hold = An active prescription that will not be filled until pharmacy resolves the issue.Active: Susp = An active prescription that is not scheduled to be filled yet.Clinic Order = A medication received during a visit to a [place] clinic or emergency department (currently not available).Discontinued [...] may be a prescription from either the [place] or other providers that was filled outside the [place]. Or, it may be an over the [...] A DAY NEEDED 180 Jan 09, 2020 [id number] Apr 10, 2019 MAK VILLEDA CBTERRENCE ALBUTEROL SO4 0.083% INHL,3ML Discontinued USE 3 MLS IN NEBULIZER FOR INHALATION TWO TIMES A DAY NEEDED 180 Jan 27, 2019 [id number] Nov 01, 2018 BRITTANEY VENEGAS ALBUTEROL SO4 90MCG/ACTUAT (CFC-F) INHL,ORAL,6.7GM Active INHALE 2 PUFFS BY ORAL INHALATION TWO TIMES A DAY NEEDED - RINSE MOUTHPIECE FREQUENTLY TO PREVENT CLOGGING 2 Aug 30, 2019 [id number] Mar 18, 2019 BRITTANEY VILLEDA ALBUTEROL SO4 90MCG/ACTUAT (CFC-F) INHL,ORAL,6.7GM Discontin ued INHALE 2 PUFFS BY ORAL INHALATION TWO TIMES A DAY NEEDED - RINSE MOUTHPIECE FREQUENTLY TO PREVENT CLOGGING 2 Mar 27, 2019 [id number] Aug 30, 2018 BRITTANEY VILLEDA CBTERRENCE BUDESONIDE 80MCG/FORMOTEROL FUM 4.5MCG/SPRAY INHL,ORAL,10.2G M Active INHALE 2 PUFFS BY ORAL INHALATION TWO TIMES A DAY FOR BREATHING. SHAKE WELL. RINSE MOUTH AND SPIT AFTER EACH USE. 3 Jun 24, 2020 [id number] Jun 24, 2019 BRITTANEY VILLEDA BUDESONIDE 80MCG/FORMOTEROL FUM 4.5MCG/SPRAY INHL,ORAL,10.2G M Discontinued INHALE 2 PUFFS BY ORAL INHALATION TWO TIMES A DAY FOR BREATHING. SHAKE WELL. RINSE MOUTH AND SPIT AFTER EACH USE. 3 Dec 07, 2019 [id number] Mar 18, 2019 BRITTANEY VILLEDA FERROUS SO4 324MG TAB,EC Active TAKE ONE TABLET BY MOUTH TWO TIMES A DAY FOR IRON SUPPLEMENTATION. MAY TAKE WITH FOOD IF NOT TOLERATED ON EMPTY STOMACH 200 Jan 09, 2020 [id number] Apr 23, 2019 BRITTANEY VILLEDA FERROUS SO4 324MG TAB,EC Discontinued TAKE ONE TABLET BY MOUTH TWO TIMES A DAY FOR IRON SUPPLEMENTATION. MAY TAKE WITH FOOD IF NOT TOLERATED ON EMPTY STOMACH 200 May 02, 2019 [id number] Nov 14, 2018 BRITTANEY VILLEDA C FOLIC ACID 1MG TAB Active TAKE ONE TABLET BY MOUTH ONCE A DAY 90 Nov 22, 2019 [id number] Mar 18, 2019 BRITTANEY VILLEDA FOLIC ACID 1MG TAB Discontinued TAKE ONE TABLET BY MOUTH ONCE A DAY 90 May 02, 2019 [id number] Sep 26, 2018 BRITTANEY VILLEDA GABAPENTIN 300MG CAP Discontinued TAKE 2 CAPSULES BY MOUTH FOUR TITO ES A DAY 720 Jan 27, 2019 [id number] Nov 14, 2018 BRITTANEY VILLEDA GABAPENTIN 400MG CAP Active TAKE 1 CAPSULE BY MOUTH THREE TITO ES A DAY 270 Dec 07, 2019 [id number] Mar 18, 2019 BRITTANEY VILLEDA HYDROCODONE 10MG/ACETAMINOPHEN 325MG TAB Non-VA TAKE ONE TABLET BY MOUTH FOUR TIMES A DAY Non-VA Documented by: RAMY TRENT nted at: STEF[facility] SPAIN LISINOPRIL 10MG TAB Discontinued TAKE ONE-HALF TABLET BY MOUTH EVERY MORNING FOR HEART OR HIGH BLOOD PRESSURE 15 Jun 01, 2019 [id number] Jun 02, 2018 BRITTANEY VILLEDA [place]ARTAN 25MG TAB Active TAKE ONE TABLET BY MOUTH ONCE A DAY FOR BLOOD PRESSURE 90 Jan 09, 2020 [id number] Apr 23, 2019 BRITTANEY VILLEDA C LOSARTAN 25MG TAB Discontinued TAKE ONE TABLET BY M OUTH ONCE A DAY FOR BLOOD PRESSURE 90 July 13, 2019 [id number] Nov 14, 2018 TIERRA KWONG [facility] MELOXICAM 15MG TAB TAKE ONE TABLET BY M OUTH ONCE A DAY FOR PAIN OR INFLAMMATION. 90 Jun 01, 2019 [id number] Mar 18, 2019 BRITTANEY VILLEDA METOPROLOL TARTRATE 25MG TAB Active TAKE ONE-SMITH LF TABLET BY MOUTH TWO TIMES A DAY FOR HEART/BLOOD PRESSURE. TAKE WITH OR IMMEDIATELY FOLLOWING FOOD. 90 Jan 09, 2020 [id number] Apr 23, 2019 BRITTANEY VILLEDA METOPROLOL TARTRATE 25MG TAB Discontinued TAKE ONE-SMITH LF TABLET BY MOUTH TWO TIMES A DAY FOR HEART/BLOOD PRESSURE. TAKE WITH OR IMMEDIATELY FOLLOWING FOOD. July 13, 2019 [id number] Nov 14, 2018 [facility] SIMVASTAT[facility] 40MG TAB Active TAKE ONE-HALF TABLE T BY MOUTH AT BEDTIME FOR CHOLESTEROL - REPORT ANY UNEXPLAINED MUSCLE PAIN OR WEAKNESS TO YOUR PROVIDER 45 Sep 27, 2019 [id number] Jun 24, 2019 BRITTANEY VILLEDA C SIMVASTATIN 40MG TAB Discontinued TAKE ONE-HALF TABLE T BY MOUTH AT BEDTIME FOR CHOLESTEROL - REPORT ANY UNEXPLAINED MUSCLE PAIN OR WEAKNESS TO YOUR PROVIDER 45 Sep 23, 2018 [id number] Jul 05, 2018 BRITTANEY VILLEDA C TAMSULOSIN HCL 0.4MG CAP Discontinued TAKE ONE CAPSUL E BY MOUTH ONCE A DAY FOR PROSTATE. TAKE AT THE SAME TIME EACH DAY WITH FOOD. 90 Jun 17 9 [id number] Jun 14, 2018 BRITTANEY VILLEDA TAMSULOSIN HCL 0.4MG CAP TAKE ONE CAPSUL E BY MOUTH ONCE A DAY FOR PROSTATE. TAKE AT THE SAME TIME EACH DAY WITH FOOD. 90 August 01 0 [id number] Jun 24, 2019 BRITTANEY VILLEDA TIOTROPIUM 2.5MCG/ACTUAT INHL,ORAL,60D,4GM Active INHALE 2 PUFFS BY ORAL INHALATION ONCE A DAY FOR BREATHING. DON'T USE WITH IPRATROPIUM - REPLACES ADVAIR. 3 Jun 24, 2020 [id number] Jun 24, 2019 BRITTANEY VILLEDA [facility] TIOTROPIUM 2.5MCG/ACTUAT INHL,ORAL,60D,4GM Discontinued INHALE 2 PUFFS BY ORAL INHALATION ONCE A DAY FOR BREATHING. DON'T USE WITH IPRATROPIUM - REPLACES ADVAIR. 3 Oct 13, 2019 [id number] Mar 18, 2019 BRITTANEY VILLEDA [facility] Problems (Conditions): All historical and current Section Date Range: From patient's date of to the date document was create d. This section includes a list of Problems (Conditions) know n to [place] for the patient. It includes both active and inacti ve problems (conditions). The data comes from all [place] treatment facilities. Problem Status Problem Code Date of Onset Date of Resolution Comm ent(s) Provider Source Actinic keratosis (SNOMED CT 872811142) Active 702.0 BRITTANEY VILLEDA [facility] Alcohol Dependence * (ICD-9-CM 303.90/303.91) Active 303.90 ALEXANDRA KWONG [facility] Anemia Active 285.9 SATHISH SCOTT [facility] ANGINA PECTORIS NEC/NOS 413.9 [facility] 413.9 [facility] Anxiety Disorder Active 300.00 AURELIANO LINCOLN MD [facility] Benign Neoplasm Skin Head, Neck, Scalp Active 216.4 RENALDO DACOSTA [facility] CABG Active 799.9 Oct 05, 2006 E ntered By: SATHISH SCOTT Comment: feb, 4-vessel SATHISH SCOTT [facility] Chest discomfort (SNOMED CT 170834918) Active 786.59 BRITTANEY VILLEDA [facility] Chronic airway obstruction, Not Elsewhere Classified Active 496. AURELIANO LINCOLN MD [facility] Chronic Low Back Pain Active 724.2 AURELIANO LINCOLN MD [facility] COPD * (ICD-9-CM 496.) Active 496. [facility] Coron[facility] Artery Disease * (ICD-9-CM 414.9) Active 414.9 ALEXANDRA KWONG [facility] Coronary Atherosclerosis of [place] Coronary Vessel Active 414.01 August 03, 2010 Entered By: AURELIANO LINCOLN MD Comment: Bypass surgery AURELIANO LINCOLN MD [facility] Disorder of shoulder (SNOMED CT 662515742) Active 719.91 [facility]ILLED[facility] Essential Hypertension Active 401.9 AURELIANO LINCOLN MD [facility] Hyperlipidemia Active 272.4 [facility]ISH SCOTT [facility] HYPERTENSION NOS 401.9 Active 401.9 ALEXANDRA KWONG [facility] Impotence (SNOMED CT 199019881) Active 302.72 [facility] 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 AURELIANO LIU MD [facility] Marijuana Dependence unspecified Active 304.30 AURELIANO LINCOLN MD [facility] Microscopic Hematuria (ICD-9-CM 599.72) Active 599.72 [facility] Other and unspecified hyperlipidemia Active 272.4 AURELIANO LINCOLN MD [facility] Other, mixed, or unspecified drug abuse, continuous use Active 30 5.91 Jan 30, 2009 Entered By: SATHISH SCOTT Comment: urine drug screen positive for opitates and marijuannaMay 2009 Entered By: SATHISH SCOTT Comment: buying hydrocodone "off the street" [facility]ATHISH SCOTT [facility] Pain in joint involving ankle and foot (ICD-9-CM 719.47) Active 719 .47 SATHISH SCOTT [facility] Papular eruption (SNOMED CT 840023756) Active 709.8 [facility]ITTANEY VILLEDA [facility] Personal History of Noncompliance with M edical Treatment, Presenting Hazards to Active V15.81 SATHISH SCOTT [facility] Tobacco dependence syndrome (SNOMED CT 89106551) Active [id number] July 24, 2009 Entered By: SATHISH SCOTT Comment: one ppd YUMI AVILA [facility] Transient Ischemic Attack * (ICD-9-CM 435.9) Active 435.9 SATHISH SCOTT [facility] ANIETY STAT NOS 300.00 Inactive 300.00 Jan 05, 2005 ALEXANDRA FLOREZ [facility] Bronchitis * (ICD-9-CM 490.) Inactive 490. Jan 05, 2005 BRITTANEY VILLEDA [facility] Postsurgical Aortocoronary Bypass Status (ICD-9-CM V45.81) Inactive V45.81 Oct 05, 2006 SATHISH SCOTT [facility] Radiology Reports: +/- 30 days of the encounter No Data Provided for This Section Pathology Reports: +/- 30 days of the encounter No Data Provided for This Section Encounter Notes: All associated encounter notes This section contains the clinical notes associated to the Encounter. Date/Time Encounter Note(s) Provider Source Feb 08, 2019 01:08 PM DIAGNOSTIC STUDY REPORT: LOCAL TITLE: WI-FORM LETTER DIAGNOSTIC RESULTS STANDARD TITLE: DIAGNOSTIC STUDY REPORT DATE OF NOTE: FEB 08, 2019@13:08 ENTRY DATE: FEB 08, 2019@13:09:06 AUTHOR: RAMY TRENT EXP COSIGNER: URGENCY: STATUS: COMPLETED Department [facility] Yumi Osuna [facility] [address] [place] [address] JUAN MANUEL MARTIN [address] [place] [address], [address] Jan Dear JUAN MANUEL MARTIN, The purpose of this letter is to inform you of your test results done recently at the [facility],[place], [place]. LABORATORY Comments: Your iron levels and folate level is normal. LILLY Carrillo [facility] RAMY TRENT [facility]
--- OUTSIDE RECORDS SUMMARY | 2019-08-16 03:53 | XMS REPORT | Encounter Summary ---
Author Author Department [facility] JUAN MANUEL posey Organization Department of [facility] Address [address] [place] [id number] Phone Unavailable Care Team Providers Care Director Of Physical Security Name Role Phone BRITTANEY VILLEDA PCP Unavailable [...] PART B Apr 13, 2007 PART B [id number] [phone] JUAN MANUEL MARTIN PATIENT MEDICARE (WNR) MEDICARE (M) PART B Apr 13, 2007 PART B [id number] JUAN MANUEL MARTIN PATIENT MEDICARE (WNR) MEDICARE (M) PART A Sep 10, 2005 PART A [id number] [phone] JUAN MANUEL MARTIN PATIENT MEDICARE (WNR) MEDICARE (M) PART A Sep 10, 2005 PART A [id number] [phone] JUAN MANUEL MARTIN PATIENT MEDICARE (WNR) MEDICARE (M) PART A Sep 10, 2005 PART A [id number] [phone] JUAN MANUEL MARTIN PATIENT Selected Encounter This section includes the information on record at [place] for the Encounter. Date/Time Encounter Type Encounter Description Reason Provider Source May 08, 2019 03:27 PM Outpatient Encounter ADMIN PAT ACTIVTIES (MELANIE CUADRA) YUMI BROWN [facility] IHE Encounter Template Text not used by VA Assessments - Encounter Diagnoses No Data Provided for This Section Plan of Treatment: Future Appointments (+ 6 months) and Future Tests (+/- 45 day s) No Data Provided for This Section Surgical Procedures: All associated to the encounter No Data Provided for This Section Lab Results: +/- 30 days of the encounter No Data Provided for This Section Vital Signs: All taken on the encounter date No Data Provided for This Section Immunizations: All administered on the encounter date No Data Provided for This Section Social History: Smoking Status (Most current) and Tobacco Use (All prior to enco unter date) No Data Provided for This Section Advance Directives: All historical and current Section [...] docume nt. The data comes from all [place] facilities. Date Advance Directives Provider Source Jan 02, 2018 ADVANCE DIRECTIVE DISCUSSION FLO KRUEGER CB Oct 17, 2000 ADVANCE DIRECTIVE EUNICE RODRIGUEZ [facility], VISN 15 Allergies and Adverse Reactions (ADRs): All historical and current Section Date Range: From patient's date of to the date document was create d. This section includes Allergies and Adverse Reactions (ADR s) on record with VA for the patient. The data comes from a ll [place] treatment facilities. It does not list Allergies/ADRs that were removed or entered in error. Some allergies/ADRs may be reported in t he Immunization section. Allergen Event Date Event Type Reaction(s) Severity Source No Known Allergies [facility] No Allergy Assessment on File JEOVANNY MORGAN Medications: VA dispensed (-15 months) and Non-VA Documented (Obtained Outside A) Section Date Range: 1) prescriptions processed by a [place] pharmacy in the last 15 m ont, and 2) all medications recorded in the [place] medical record as "non-VA medic ations". Pharmacy terms refer to [place] pharmacy's work on prescriptions. VA patient s are advised to take their medications as instructed by their health care team. The data comes from all [place] treatment facilities. Glossary of Pharmacy Terms:Active = A prescription that can be filled at the local [place] pharmacy.Active: On Hold = An active prescription that will not be filled until pharmacy resolves the issue.Active: Susp = An active prescription that is not scheduled to be filled yet.Clinic Order = A medication received during a visit to a [place] clinic or emergency department (currently not available).Discontinued [...] may be a prescription from either the [place] or other providers that was filled outside the [place]. Or, it may be an over the [...] A DAY NEEDED 180 Jan 09, 2020 [id number] Apr 10, 2019 [facility] ALBUTEROL SO4 0.083% INHL,3ML Discontinued USE 3 MLS IN NEBULIZER FOR INHALATION TWO TIMES A DAY NEEDED 180 Jan 27, 2019 [id number] Nov 01, 2018 BRITTANEY VENEGAS [facility] ALBUTEROL SO4 90MCG/ACTUAT (CFC-F) INHL,ORAL,6.7GM Active INHALE 2 PUFFS BY ORAL INHALATION TWO TIMES A DAY NEEDED - RINSE MOUTHPIECE FREQUENTLY TO PREVENT CLOGGING 2 Aug 30, 2019 [id number] Mar 18, 2019 BRITTANEY VILLEDA [facility] ALBUTEROL SO4 90MCG/ACTUAT (CFC-F) INHL,ORAL,6.7GM Discontin ued INHALE 2 PUFFS BY ORAL INHALATION TWO TIMES A DAY NEEDED - RINSE MOUTHPIECE FREQUENTLY TO PREVENT CLOGGING 2 Mar 27, 2019 [id number] Aug 30, 2018 BRITTANEY VILLEDA BUDESONIDE 80MCG/FORMOTEROL FUM 4.5MCG/SPRAY INHL,ORAL,10.2G M Active INHALE 2 PUFFS BY ORAL INHALATION TWO TIMES A DAY FOR BREATHING. SHAKE WELL. RINSE MOUTH AND SPIT AFTER EACH USE. 3 Jun 24, 2020 [id number] Jun 24, 2019 BRITTANEY VILLEDA BUDESONIDE 80MCG/FORMOTEROL FUM 4.5MCG/SPRAY INHL,ORAL,10.2G M Discontinued INHALE 2 PUFFS BY ORAL INHALATION TWO TIMES A DAY FOR BREATHING. SHAKE WELL. RINSE MOUTH AND SPIT AFTER EACH USE. 3 Dec 07, 2019 [id number] Mar 18, 2019 BRITTANEY VILLEDA [facility] FERROUS SO4 324MG TAB,EC Active TAKE ONE TABLET BY MOUTH TWO TIMES A DAY FOR IRON SUPPLEMENTATION. MAY TAKE WITH FOOD IF NOT TOLERATED ON EMPTY STOMACH 200 Jan 09, 2020 [id number] Apr 23, 2019 BRITTANEY VILLEDA FERROUS SO4 324MG TAB,EC Discontinued TAKE ONE TABLET BY MOUTH TWO TIMES A DAY FOR IRON SUPPLEMENTATION. MAY TAKE WITH FOOD IF NOT TOLERATED ON EMPTY STOMACH 200 May 02, 2019 [id number] Nov 14, 2018 BRITTANEY VILLEDA [facility] FOLIC ACID 1MG TAB Active TAKE ONE TABLET BY MOUTH ONCE A DAY 90 Nov 22, 2019 [id number] Mar 18, 2019 BRITTANEY VILLEDA FOLIC ACID 1MG TAB Discontinued TAKE ONE TABLET BY MOUTH ONCE A DAY 90 May 02, 2019 [id number] Sep 26, 2018 BRITTANEY VILLEDA GABAPENTIN 300MG CAP Discontinued TAKE 2 CAPSULES BY MOUTH FOUR TITO ES A DAY 720 Jan 27, 2019 [id number] Nov 14, 2018 BRITTANEY VILLEDA CBTERRENCE GABAPENTIN 400MG CAP Active TAKE 1 CAPSULE BY MOUTH THREE TITO ES A DAY 270 Dec 07, 2019 [id number] Mar 18, 2019 BRITTANEY VILLEDA HYDROCODONE 10MG/ACETAMINOPHEN 325MG TAB Non-VA TAKE ONE TABLET BY MOUTH FOUR TIMES A DAY Non-VA Documented by: RAMY TRENT nted at: STEFANI SPAIN LISINOPRIL 10MG TAB Discontinued TAKE ONE-HALF TABLET BY MOUTH EVERY MORNING FOR HEART OR HIGH BLOOD PRESSURE 15 Jun 01, 2019 [id number] Jun 02, 2018 BRITTANEY VILLEDA LOSARTAN 25MG TAB Active TAKE ONE TABLET BY MOUTH ONCE A DAY FOR BLOOD PRESSURE 90 Jan 09, 2020 [id number] Apr 23, 2019 BRITTANEY VILLEDA CBO C LOSARTAN 25MG TAB Discontinued TAKE ONE TABLET BY M OUTH ONCE A DAY FOR BLOOD PRESSURE 90 July 13, 2019 [id number] Nov 14, 2018 [facility] MELOXICAM 15MG TAB TAKE ONE TABLET BY M OUTH ONCE A DAY FOR PAIN OR INFLAMMATION. 90 Jun 01, 2019 [id number] Mar 18, 2019 BRITTANEY VILLEDA METOPROLOL TARTRATE 25MG TAB Active TAKE ONE-SMITH LF TABLET BY MOUTH TWO TIMES A DAY FOR HEART/BLOOD PRESSURE. TAKE WITH OR IMMEDIATELY FOLLOWING FOOD. 90 Jan 09, 2020 [id number] Apr 23, 2019 BRITTANEY VILLEDA METOPROLOL TARTRATE 25MG TAB Discontinued TAKE ONE-SMITH LF TABLET BY MOUTH TWO TIMES A DAY FOR HEART/BLOOD PRESSURE. TAKE WITH OR IMMEDIATELY FOLLOWING FOOD. 90 July 13, 2019 [id number] Nov 14, 2018 TI[facility]RA KWONG [facility] SIMVASTATIN 40MG TAB Active TAKE ONE-HALF TABLE T BY MOUTH AT BEDTIME FOR CHOLESTEROL - REPORT ANY UNEXPLAINED MUSCLE PAIN OR WEAKNESS TO YOUR PROVIDER 45 Sep 27, 2019 [id number] Jun 24, 2019 BRITTANEY VILLEDA [facility] SIMVASTATIN 40MG TAB Discontinued TAKE ONE-HALF TABLE T BY MOUTH AT BEDTIME FOR CHOLESTEROL - REPORT ANY UNEXPLAINED MUSCLE PAIN OR WEAKNESS TO YOUR PROVIDER 45 Sep 23, 2018 [id number] Jul 05, 2018 BRITTANEY VILLEDA [facility] TAMSULOSIN HCL 0.4MG CAP Discontinued TAKE ONE CAPSUL E BY MOUTH ONCE A DAY FOR PROSTATE. TAKE AT THE SAME TIME EACH DAY WITH FOOD. 90 Jun 17 9 [id number] Jun 14, 2018 BRITTANEY VILLEDA TAMSULOSIN HCL 0.4MG CAP TAKE ONE CAPSUL E BY MOUTH ONCE A DAY FOR PROSTATE. TAKE AT THE SAME TIME EACH DAY WITH FOOD. 90 August 01 0 [id number] Jun 24, 2019 BRITTANEY VILLEDA TIOTROPIUM 2.5MCG/ACTUAT INHL,ORAL,60D,4GM Active INHALE 2 PUFFS BY ORAL INHALATION ONCE A DAY FOR BREATHING. DON'T USE WITH IPRATROPIUM - REPLACES ADVAIR. 3 Jun 24, 2020 [id number] Jun 24, 2019 BRITTANEY VILLEDA [facility] TIOTROPIUM 2.5MCG/ACTUAT INHL,ORAL,60D,4GM Discontinued INHALE 2 PUFFS BY ORAL INHALATION ONCE A DAY FOR BREATHING. DON'T USE WITH IPRATROPIUM - REPLACES ADVAIR. 3 Oct 13, 2019 [id number] Mar 18, 2019 BRITTANEY VILLEDA [facility] Problems (Conditions): All historical and current Section Date Range: From patient's date of to the date document was create d. This section includes a list of Problems (Conditions) know n to [facility] for the patient. It includes both active and inacti ve problems (conditions). The data comes from all [place] treatment facilities. Problem Status Problem Code Date of Onset Date of Resolution Comm ent(s) Provider Source Actinic keratosis (SNOMED CT 856714386) Active 702.0 BRITTANEY VILLEDA [facility] Alcohol Dependence * (ICD-9-CM 303.90/303.91) Active 303.90 ALEXANDRA KWONG [facility] Anemia Active 285.9 SATHISH SCOTT [facility] ANGINA PECTORIS NEC/NOS 413.9 Active 413.9 W ALEXANDRA DE JESUS [facility] Anxiety Disorder Active 300.00 AURELIANO LINCOLN MD [facility] Benign Neoplasm Skin Head, Neck, Scalp Active 216.4 RENALDO DACOSTA [facility] CABG Active 799.9 Oct 05, 2006 E ntered By: SATHISH SCOTT Comment: feb, 4-vessel SATHISH SCOTT [facility] Chest discomfort (SNOMED CT 242749430) Active 786.59 BRITTANEY VILLEDA [facility] Chronic airway obstruction, Not Elsewhere Classified Active 496. AURELIANO LINCOLN MD [facility] Chronic Low Back Pain Active 724.2 AURELIANO LINCOLN MD [facility] COPD * (ICD-9-CM 496.) Active 496. Robin SCOTT [facility] Coronary Artery Disease * (ICD-9-CM 414.9) Active 414.9 ALEXANDRA KWONG [facility] Coronary Atherosclerosis of [place] Coronary Vessel Active 414.01 August 03, 2010 Entered By: AURELIANO LINCOLN MD Comment: Bypass surgery AURELIANO LINCOLN MD [facility] Disorder of shoulder (SNOMED CT 355266552) Active 719.91 [facility]ITT[facility]Y [facility]ILLED[facility] Essential Hypertension Active 401.9 AURELIANO LINCOLN MD [facility] Hyperlipidemia Active 272.4 SATHISH SCOTT [facility] HYPERTENSION NOS 401.9 Active 401.9 ALEXANDRA KWONG Can [facility] Impotence (SNOMED CT 873005066) Active 302.72 [facility] 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 AURELIANO LIU MD [facility] Marijuana Dependence unspecified Active 304.30 AURELIANO LINCOLN MD [facility] Microscopic Hematuria (ICD-9-CM 599.72) Active 599.72 BEVERLY SALINAS [facility] Other and unspecified hyperlipidemia Active 272.4 AURELIANO LINCOLN MD [facility] Other, mixed, or unspecified drug abuse, continuous use Active 30 5.91 Jan 30, 2009 Entered By: SATHISH SCOTT Comment: urine drug screen positive for opitates and marijuannaMay 2009 Entered By: SATHISH SCOTT Comment: buying hydrocodone "off the street" SATHISH SCOTT [facility] Pain in joint involving ankle and foot (ICD-9-CM 719.47) Active 719 .47 SATHISH SCTOT [facility] Papular eruption (SNOMED CT 573987945) Active 709.8 BRITTANEY VILLEDA [facility] Personal History of Noncompliance with M edical Treatment, Presenting Hazards to Active V15.81 SATHISH SCOTT [facility] Tobacco dependence syndrome (SNOMED CT 13996057) Active [id number] July 24, 2009 Entered By: SATHISH SCOTT Comment: one YUMI Gibbons [facility] Transient Ischemic Attack * (ICD-9-CM 435.9) Active 435.9 [facility] ANIETY STAT NOS 300.00 Inactive 300.00 Jan 05, 2005 ALEXANDRA FLOREZ [facility] Bronchitis * (ICD-9-CM 490.) Inactive 490. Jan 05, 2005 RONALBRITTANEY [facility] Postsurgical Aortocoronary Bypass Status (ICD-9-CM V45.81) Inactive V45.81 Oct 05, 2006 SATHISH SCOTT [facility] Radiology Reports: +/- 30 days of the encounter No Data Provided for This Section Pathology Reports: +/- 30 days of the encounter No Data Provided for This Section Encounter Notes: All associated encounter notes This section contains the clinical notes associated to the Encounter. Date/Time Encounter Note(s) Provider Source May 08, 2019 03:28 PM ADMINISTRATIVE NOTE: LOCAL TITLE: WI-ADMINISTRATIVE NOTE (BP,O) STANDARD TITLE: ADMINISTRATIVE NOTE DATE OF NOTE: MAY 08, 2019@15:28 ENTRY DATE: MAY 08, 2019@15:28:20 AUTHOR: LOVE FRYE EXP COSIGNER: URGENCY: STATUS: COMPLETED noted to be due for diagnostic colonoscopy. Community Care consult DC'd, [place] used private insurance to go out in the community to f/u on +FIT. Colonoscopy consult date was 02/01/2019, colonoscopy procedure on 02/04/2019 and follow-up visit on 02/13/[address] Cody. Per there were no specimens and was instructed by Dr. Cody to follow-up in 10 years. Diagnostic Colonoscopy: (+) FIT/FOBT identified. A diagnostic Colonoscopy is due based on information available to this reminder. Prior/outside colonoscopy results: Normal colonoscopy done by Dr. Cody-recommendations to f/u in 10 years. Date: February 04, 2019 Colonoscopy reminder set 10 years from MAY 08, 2019. /nuno/ LOVE FRYE MSN, RN Signed: 05/08/2019 15:31 LOVE FRYE [facility]
--- OUTSIDE RECORDS SUMMARY | 2019-08-16 03:54 | XMS REPORT | Encounter Summary ---
Author Author Department [facility] JUAN MANUEL posey Organization Department of [facility] Address [address] [place] [phone] Phone Unavailable Care Team Providers Care Business Center Manager Name Role Phone BRITTANEY VILLEDA PCP Unavailable [...] PART B Apr 13, 2007 PART B [id number] [phone] MARTIN,GARY PATIENT MEDICARE (WNR) MEDICARE (M) PART B Apr 13, 2007 PART B [id number] JUAN MANUEL MARTIN PATIENT MEDICARE (WNR) MEDICARE (M) PART A Sep 10, 2005 PART A [id number] MARTIN,JUAN MANUEL PATIENT MEDICARE (WNR) MEDICARE (M) PART A Sep 10, 2005 PART A [id number] [phone] JUAN MANUEL MARTIN PATIENT MEDICARE (WNR) MEDICARE (M) PART A Sep 10, 2005 PART A [id number] JUAN MANUEL MARTIN PATIENT Selected Encounter This section includes the information on record at [place] for the Encounter. Date/Time Encounter Type Encounter Description Reason Provider Source Feb 04, 2019 12:00 AM Outpatient Encounter EVENT (HISTORICAL) [facility], [facility] 15 IHE Encounter Template Text not used by [place] Assessments - Encounter Diagnoses No Data Provided [...] Hematology Lab R esults on record with [place] for the patient. Radiology Reports and Pathology [...] #1 OF 1 POSITIVE HH Neg ative Jan 08, 2019 08:20 AM KO [facility] CBC & DIFF Specimen Type: BLOOD No comment entered. WBC 8.3 K/cmm 3.60-11.20 RBC 3.94 M/ul L 4.1-5.7 HGB 13.1 g/dl 13.1-16.8 HCT 38.6 % 38.2-48.4 MCV 98.0 fl 80.1-98.5 MCH 33.2 pg 27.0-34.0 MCHC 33.9 g/dl 33.0-36.0 PLATELET COUNT 329 K/cmm 150-400 MPV 9.0 fl 7.5-11.2 RDW 12.5 % 11.8-15.1 LYMPHOCYTES, AUTO% 31.9 % NEUTROPHILS, AUTO % 52.2 % MONOCYTES, AUTO% 10.2 % MONOCYTES, ABSOLUTE 0.9 K/cmm H 0.19-0.80 NEUTROPHILS, ABSOLUTE 4.3 K/cmm 2.10-8.0 0 EOSINOPHILS, ABSOLUTE 0.4 K/cmm 0.00-0.6 0 BASOPHILS, ABSOLUTE 0.1 K/cmm 0.00-0.20 EOSINOPHILS, AUTO% 4.3 % BASOPHILS, AUTO% 0.7 % LYMPHOCYTES, ABSOLUTE 2.7 K/cmm 0.77-4.5 0 IMMATURE GRANS, ABSOLUTE 0.06 K/cmm H 0.00 -0.05 IMMATURE GRANS, AUTO % 0.7 % Jan 08, 2019 08:20 AM KO [facility] COMPREHENSIVE METABOLIC PA SUNI Specimen Type: PLASMA Comment: For eGFR: eGFR results >60 are imprecise. Many variables affect the calculated result. Interpretation of eGFR results >60 must be monitored over time. *CREATININE 0.83 mg/dL 0.7-1.3 UREA NITROGEN mg/dL 7 mg/dL L 9-25 GLUCOSE 99 mg/dL 72-99 SODIUM 138 mEq/L 136-145 POTASSIUM 4.5 mEq/L 3.5-5.0 CALCIUM (mg/dL) 8.8 mg/dL 8.4-10.4 PROTEIN,TOTAL 6.8 g/dL 6.0-8.6 ALBUMIN 4.3 g/dl 3.4-5.0 TOTAL BILIRUBIN 0.5 mg/dL 0.2-1.2 ASPARTATE TRANSAMINASE 15 U/L 5-34 ALANINE AMINOTRANSFERASE 12 U/L 8-40 ANION GAP 8.2 8-16 CHLORIDE 102 mEq/L 98-107 CO2 27.8 mEq/L 22-31 ALKALINE PHOSPHATASE 63 U/L 40-150 EGFR >60 Jan 08, 2019 08:20 AM [facility] LIPID PROFILE(HDL,TRIG,CHO L,LDL) Specimen Type: PLASMA Comment: For eGFR: eGFR results >60 are imprecise. Many variables affect the calculated result. Interpretation of eGFR results >60 must be monitored over time. CHOLESTEROL 145 mg/dL 0-200 TRIGS 74 mg/dL 0-150 HDL-CHOLESTEROL 62 mg/dL >40 LDL (CALC) 68 mg/dL 0-99.9 Jan 08, 2019 08:20 AM [facility] TSH Specimen Type: SERUM No comment entered. TSH 1.90 uIU/mL 0.47-5.00 Jan 08, 2019 08:20 AM KO CB PROSTATIC SPECIFIC ANTIGEN (TOTAL) Specimen Type: SERUM No comment entered. PROSTATIC SPECIFIC ANTIGEN(TOTAL) 1.1 ng/mL 0-4 Vital Signs: All taken on the encounter [...] docume nt. The data comes from all [place] facilities. Date Advance Directives Provider Source Jan 02, 2018 ADVANCE DIRECTIVE DISCUSSION FLO KRUEGER [facility] Oct 17, 2000 ADVANCE DIRECTIVE EUNICE RODRIGUEZ [facility], [facility] 15 Allergies and Adverse Reactions (ADRs): All historical and current Section Date Range: From patient's date of to the date document was create d. This section includes Allergies and Adverse Reactions (ADR s) on record with [facility] for the [facility]. The data comes from a ll [place] treatment facilities. It does not list Allergies/ADRs that were removed or entered in error. Some allergies/ADRs may be reported in t Immunization section. Allergen Event Date Event Type Reaction(s) Severity Source No Known Allergies [facility] No Allergy Assessment on File JEOVANNY MORGAN Medications: [facility] dispensed (-15 months) and Non-VA Documented (Obtained Outside [facility] Hospital) Section Date Range: 1) prescriptions processed by a VA pharmacy in the last 15 m ont, and 2) all medications recorded in the [place] medical record as "non-VA medic ations". Pharmacy terms refer to [place] pharmacy's work on prescriptions. [facility] patient s are advised to take their medications as instructed by their health care team. The data comes from all [place] treatment facilities. Glossary of Pharmacy Terms:Active = A prescription that can be filled at the local [place] pharmacy.Active: On Hold = An active prescription that will not be filled until pharmacy resolves the issue.Active: Susp = An active prescription that is not scheduled to be filled yet.Clinic Order = A medication received during a visit to a [place] clinic or emergency department (currently not available).Discontinued [...] may be a prescription from either the [place] or other providers that was filled outside the [place]. Or, it may be an over the [...] A DAY NEEDED 180 Jan 09, 2020 [id number] Apr 10, 2019 MAK VILLEDA CBTERRENCE ALBUTEROL SO4 0.083% INHL,3ML Discontinued USE 3 MLS IN NEBULIZER FOR INHALATION TWO TIMES A DAY NEEDED 180 Jan 27, 2019 [id number] Nov 01, 2018 BRITTANEY VENEGAS ALBUTEROL SO4 90MCG/ACTUAT (CFC-F) INHL,ORAL,6.7GM Active INHALE 2 PUFFS BY ORAL INHALATION TWO TIMES A DAY NEEDED - RINSE MOUTHPIECE FREQUENTLY TO PREVENT CLOGGING 2 Aug 30, 2019 [id number] Mar 18, 2019 BRITTANEY VILLEDA ALBUTEROL SO4 90MCG/ACTUAT (CFC-F) INHL,ORAL,6.7GM Discontin ued INHALE 2 PUFFS BY ORAL INHALATION TWO TIMES A DAY NEEDED - RINSE MOUTHPIECE FREQUENTLY TO PREVENT CLOGGING 2 Mar 27, 2019 [id number] Aug 30, 2018 BRITTANEY VILLEDA CBTERRENCE BUDESONIDE 80MCG/FORMOTEROL FUM 4.5MCG/SPRAY INHL,ORAL,10.2G M Active INHALE 2 PUFFS BY ORAL INHALATION TWO TIMES A DAY FOR BREATHING. SHAKE WELL. RINSE MOUTH AND SPIT AFTER EACH USE. 3 Jun 24, 2020 [id number] Jun 24, 2019 BRITTANEY VILLEDA BUDESONIDE 80MCG/FORMOTEROL FUM 4.5MCG/SPRAY INHL,ORAL,10.2G M Discontinued INHALE 2 PUFFS BY ORAL INHALATION TWO TIMES A DAY FOR BREATHING. SHAKE WELL. RINSE MOUTH AND SPIT AFTER EACH USE. 3 Dec 07, 2019 [id number] Mar 18, 2019 BRITTANEY VILLEDA FERROUS SO4 324MG TAB,EC Active TAKE ONE TABLET BY MOUTH TWO TIMES A DAY FOR IRON SUPPLEMENTATION. MAY TAKE WITH FOOD IF NOT TOLERATED ON EMPTY STOMACH 200 Jan 09, 2020 [id number] Apr 23, 2019 BRITTANEY VILLEDA FERROUS SO4 324MG TAB,EC Discontinued TAKE ONE TABLET BY MOUTH TWO TIMES A DAY FOR IRON SUPPLEMENTATION. MAY TAKE WITH FOOD IF NOT TOLERATED ON EMPTY STOMACH 200 May 02, 2019 [id number] Nov 14, 2018 BRITTANEY VILLEDA C FOLIC ACID 1MG TAB Active TAKE ONE TABLET BY MOUTH ONCE A DAY 90 Nov 22, 2019 [id number] Mar 18, 2019 BRITTANEY VILLEDA FOLIC ACID 1MG TAB Discontinued TAKE ONE TABLET BY MOUTH ONCE A DAY 90 May 02, 2019 [id number] Sep 26, 2018 BRITTANEY VILLEDA GABAPENTIN 300MG CAP Discontinued TAKE 2 CAPSULES BY MOUTH FOUR TITO ES A DAY 720 Jan 27, 2019 [id number] Nov 14, 2018 BRITTANEY VILLEDA GABAPENTIN 400MG CAP Active TAKE 1 CAPSULE BY MOUTH THREE TITO ES A DAY 270 Dec 07, 2019 [id number] Mar 18, 2019 BRITTANEY VILLEDA HYDROCODONE 10MG/ACETAMINOPHEN 325MG TAB Non-VA TAKE ONE TABLET BY MOUTH FOUR TIMES A DAY Non-VA Documented by: RAMY TRENT nted at: STEFANI SPAIN LISINOPRIL 10MG TAB Discontinued TAKE ONE-HALF TABLET BY MOUTH EVERY MORNING FOR HEART OR HIGH BLOOD PRESSURE 15 Jun 01, 2019 [id number] Jun 02, 2018 BRITTANEY VILLEDA LOSARTAN 25MG TAB Active TAKE ONE TABLET BY MOUTH ONCE A DAY FOR BLOOD PRESSURE 90 Jan 09, 2020 [id number] Apr 23, 2019 BRITTANEY VILLEDA C LOSARTAN 25MG TAB Discontinued TAKE ONE TABLET BY M OUTH ONCE A DAY FOR BLOOD PRESSURE 90 July 13, 2019 [id number] Nov 14, 2018 TIERRA KWONG [facility] MELOXICAM 15MG TAB TAKE ONE TABLET BY M OUTH ONCE A DAY FOR PAIN OR INFLAMMATION. 90 Jun 01, 2019 [id number] Mar 18, 2019 BRITTANEY VILLEDA METOPROLOL TARTRATE 25MG TAB Active TAKE ONE-SMITH LF TABLET BY MOUTH TWO TIMES A DAY FOR HEART/BLOOD PRESSURE. TAKE WITH OR IMMEDIATELY FOLLOWING FOOD. 90 Jan 09, 2020 [id number] Apr 23, 2019 BRITTANEY VILLEDA METOPROLOL TARTRATE 25MG TAB Discontinued TAKE ONE-SMITH LF TABLET BY MOUTH TWO TIMES A DAY FOR HEART/BLOOD PRESSURE. TAKE WITH OR IMMEDIATELY FOLLOWING FOOD. July 13, 2019 [id number] Nov 14, 2018 TIERRA KOWNG [facility] SIMVASTATIN 40MG TAB Active TAKE ONE-HALF TABLE T BY MOUTH AT BEDTIME FOR CHOLESTEROL - REPORT ANY UNEXPLAINED MUSCLE PAIN OR WEAKNESS TO YOUR PROVIDER 45 Sep 27, 2019 [id number] Jun 24, 2019 BRITTANEY VILLEDA C SIMVASTATIN 40MG TAB Discontinued TAKE ONE-HALF TABLE T BY MOUTH AT BEDTIME FOR CHOLESTEROL - REPORT ANY UNEXPLAINED MUSCLE PAIN OR WEAKNESS TO YOUR PROVIDER 45 Sep 23, 2018 [id number] Jul 05, 2018 BRITTANEY VILLEDA C TAMSULOSIN HCL 0.4MG CAP Discontinued TAKE ONE CAPSUL E BY MOUTH ONCE A DAY FOR PROSTATE. TAKE AT THE SAME TIME EACH DAY WITH FOOD. Jun 17 9 [id number] Jun 14, 2018 BRITTANEY VILLEDA TAMSULOSIN HCL 0.4MG CAP TAKE ONE CAPSUL E BY MOUTH ONCE A DAY FOR PROSTATE. TAKE AT THE SAME TIME EACH DAY WITH FOOD. August 01 0 [id number] Jun 24, 2019 BRITTANEY VILLEDA TIOTROPIUM 2.5MCG/ACTUAT INHL,ORAL,60D,4GM Active INHALE 2 PUFFS BY ORAL INHALATION ONCE A DAY FOR BREATHING. DON'T USE WITH IPRATROPIUM - REPLACES ADVAIR. 3 Jun 24, 2020 [id number] Jun 24, 2019 BRITTANEY VILLEDA [facility] TIOTROPIUM 2.5MCG/ACTUAT INHL,ORAL,60D,4GM Discontinued INHALE 2 PUFFS BY ORAL INHALATION ONCE A DAY FOR BREATHING. DON'T USE WITH IPRATROPIUM - REPLACES ADVAIR. 3 Oct 13, 2019 [id number] Mar 18, 2019 BRITTANEY VILLEDA [facility] Problems (Conditions): All historical and current Section Date Range: From patient's date of to the date document was create d. This section includes a list of Problems (Conditions) know n to [facility] for the patient. It includes both active and inacti ve problems (conditions). The data comes from all [place] treatment facilities. Problem Status Problem Code Date of Onset Date of Resolution Comm ent(s) Provider Source Actinic keratosis (SNOMED CT 532572830) Active 702.0 BRITTANEY VILLEDA [facility] Alcohol Dependence * (ICD-9-CM 303.90/303.91) Active 303.90 ALEXANDRA KWONG [facility] Anemia Active 285.9 SATHISH SCOTT [facility] ANGINA PECTORIS NEC/NOS 413.9 Active 413.9 W ALEXANDRA DE JESUS [facility] Anxiety Disorder Active 300.00 AURELIANO LINCOLN MD [facility] Benign Neoplasm Skin Head, Neck, Scalp Active 216.4 RENALDO DACOSTA [facility] CABG Active 799.9 Oct 05, 2006 E ntered By: SATHISH SCOTT Comment: feb, 4-vessel SATHISH SCOTT [facility] Chest discomfort (SNOMED CT 716366532) Active 786.59 BRITTANEY VILLEDA [facility] Chronic airway obstruction, Not Elsewhere Classified Active 496. AURELIANO LINCOLN MD [facility] Chronic Low Back Pain Active 724.2 AURELIANO LINCOLN MD [facility] COPD * (ICD-9-CM 496.) Active 496. SCOTTRobin [facility] Coronary Artery Disease * (ICD-9-CM 414.9) Active 414.9 ALEXANDRA KWONG [facility] Coronary Atherosclerosis of [place] Coronary Vessel Active 414.01 August 03, 2010 Entered By: AURELIANO LINCOLN MD Comment: Bypass surgery AURELIANO LINCOLN MD [facility] Disorder of shoulder (SNOMED CT [id number]) Active 719.91 BRITTANEY VILLEDA [facility] Essential Hypertension Active 401.9 AURELIANO LINCOLN MD [facility] Hyperlipidemia Active 272.4 SATHISH SCOTT [facility] HYPERTENSION NOS 401.9 Active 401.9 ALEXANDRA KWONG Can [facility] Impotence (SNOMED CT 381046516) Active 302.72 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 AURELIANO LIU MD [facility] Marijuana Dependence unspecified Active 304.30 AURELIANO LINCOLN MD [facility] Microscopic Hematuria (ICD-9-CM 599.72) Active 599.72 [facility] Other and unspecified hyperlipidemia Active 272.4 AURELIANO LINCOLN MD [facility] Other, mixed, or unspecified drug abuse, continuous use Active 30 5.91 Jan 30, 2009 Entered By: SATHISH SCOTT Comment: urine drug screen positive for opitates and marijuannaMay 2009 Entered By: SATHISH SCOTT Comment: buying hydrocodone "off the street" SATHISH SCOTT [facility] Pain in joint involving ankle and foot (ICD-9-CM 719.47) Active 719 .47 SATHISH SCOTT [facility] Papular eruption (SNOMED CT 807282745) Active 709.8 BRITTANEY VILLEDA [facility] Personal History of Noncompliance with M edical Treatment, Presenting Hazards to Active V15.81 SATHISH SCOTT [facility] Tobacco dependence syndrome (SNOMED CT 53376141) Active [id number] July 24, 2009 Entered By: SATHISH SCOTT Comment: one ppd YUMI AVILA [facility] Transient Ischemic Attack * (ICD-9-CM 435.9) Active 435.9 SATHISH SCOTT [facility] ANIETY STAT NOS 300.00 Inactive 300.00 Jan 05, 2005 ALEXANDRA FLOREZ [facility] Bronchitis * (ICD-9-CM 490.) Inactive 490. Jan 05, 2005 BRITTANEY VILLEDA [facility] Postsurgical Aortocoronary Bypass Status (ICD-9-CM V45.81) Inactive V45.81 Oct 05, 2006 SATHISH SCOTT [facility] Radiology Reports: +/- 30 days of the encounter No Data Provided for This Section Pathology Reports: +/- 30 days of the encounter No Data Provided for This Section Encounter Notes: All associated encounter notes No Data Provided for This Section
--- OUTSIDE RECORDS SUMMARY | 2019-08-16 03:54 | XMS REPORT | Encounter Summary ---
Author Author [facility] JUAN MANUEL posey Organization [facility] Address [address] [place] [phone] Phone Unavailable Care Team Providers Care Floor Refinisher Name Role Phone BRITTANEY VILLEDA PCP Unavailable [...] PART B Apr 13, 2007 PART B [id number] [phone] MARTIN,GARY PATIENT MEDICARE (WNR) MEDICARE (M) PART B Apr 13, 2007 PART B [id number] JUAN MANUEL MARTIN PATIENT MEDICARE (WNR) MEDICARE (M) PART A Sep 10, 2005 PART A [id number] [phone] MARTINJUAN MANUEL PATIENT MEDICARE (WNR) MEDICARE (M) PART A Sep 10, 2005 PART A [id number] MARTIN,GARY PATIENT MEDICARE (WNR) MEDICARE (M) PART A Sep 10, 2005 PART A [id number] JUAN MANUEL MARTIN PATIENT Selected Encounter This section includes the information on record at [place] for the Encounter. Date/Time Encounter Type Encounter Description Reason Provider Source May 08, 2019 12:00 AM Outpatient Encounter EVENT (HISTORICAL) [facility], [facility] 15 IHE Encounter Template Text not used by [place] Assessments - Encounter Diagnoses No Data Provided [...] docume nt. The data comes from all [place] facilities. Date Advance Directives Provider Source Jan 02, 2018 ADVANCE DIRECTIVE DISCUSSION FLO KRUEGER [facility] Oct 17, 2000 ADVANCE DIRECTIVE EUNICE RODRIGUEZ [facility], [facility] 15 Allergies and Adverse Reactions (ADRs): All historical and current Section Date Range: From patient's date of to the date document was create d. This section includes Allergies and Adverse Reactions (ADR s) on record with [facility] for the patient. The data comes from a ll [place] treatment facilities. It does not list Allergies/ADRs that were removed or entered in error. Some allergies/ADRs may be reported in t he Immunization section. Allergen Event Date Event Type Reaction(s) Severity Source No Known Allergies [facility] No Allergy Assessment on File [facility] Medications: VA dispensed (-15 months) and Non-VA Documented (Obtained Outside V A) Section Date Range: 1) prescriptions processed by a [place] pharmacy in the last 15 m ont, and 2) all medications recorded in the [place] medical record as "non-VA medic ations". Pharmacy terms refer to [place] pharmacy's work on prescriptions. [facility] patient s are advised to take their medications as instructed by their health care team. The data comes from all [place] treatment facilities. Glossary of Pharmacy Terms:Active = A prescription that can be filled at the local [place] pharmacy.Active: On Hold = An active prescription that will not be filled until pharmacy resolves the issue.Active: Susp = An active prescription that is not scheduled to be filled yet.Clinic Order = A medication received during a visit to a [place] clinic or emergency department (currently not available).Discontinued [...] may be a prescription from either the [place] or other providers that was filled outside the [place]. Or, it may be an over the [...] A DAY NEEDED 180 Jan 09, 2020 [id number] Apr 10, 2019 MAK VILLEDA ALBUTEROL SO4 0.083% INHL,3ML Discontinued USE 3 MLS IN NEBULIZER FOR INHALATION TWO TIMES A DAY NEEDED 180 Jan 27, 2019 [id number] Nov 01, 2018 BRITTANEY VENEGAS [facility] ALBUTEROL SO4 90MCG/ACTUAT (CFC-F) INHL,ORAL,6.7GM Active INHALE 2 PUFFS BY ORAL INHALATION TWO TIMES A DAY NEEDED - RINSE MOUTHPIECE FREQUENTLY TO PREVENT CLOGGING 2 Aug 30, 2019 [id number] Mar 18, 2019 BRITTANEY VILLEDA ALBUTEROL SO4 90MCG/ACTUAT (CFC-F) INHL,ORAL,6.7GM Discontin ued INHALE 2 PUFFS BY ORAL INHALATION TWO TIMES A DAY NEEDED - RINSE MOUTHPIECE FREQUENTLY TO PREVENT CLOGGING 2 Mar 27, 2019 [id number] Aug 30, 2018 BRITTANEY VILLEDA BUDESONIDE 80MCG/FORMOTEROL FUM 4.5MCG/SPRAY INHL,ORAL,10.2G M Active INHALE 2 PUFFS BY ORAL INHALATION TWO TIMES A DAY FOR BREATHING. SHAKE WELL. RINSE MOUTH AND SPIT AFTER EACH USE. 3 Jun 24, 2020 [id number] Jun 24, 2019 BRITTANEY VILLEDA BUDESONIDE 80MCG/FORMOTEROL FUM 4.5MCG/SPRAY INHL,ORAL,10.2G M Discontinued INHALE 2 PUFFS BY ORAL INHALATION TWO TIMES A DAY FOR BREATHING. SHAKE WELL. RINSE MOUTH AND SPIT AFTER EACH USE. 3 Dec 07, 2019 [id number] Mar 18, 2019 BRITTANEY VILLEDA [facility] FERROUS SO4 324MG TAB,EC Active TAKE ONE TABLET BY MOUTH TWO TIMES A DAY FOR IRON SUPPLEMENTATION. MAY TAKE WITH FOOD IF NOT TOLERATED ON EMPTY STOMACH 200 Jan 09, 2020 [id number] Apr 23, 2019 BRITTANEY VILLEDA [facility] FERROUS SO4 324MG TAB,EC Discontinued TAKE ONE TABLET BY MOUTH TWO TIMES A DAY FOR IRON SUPPLEMENTATION. MAY TAKE WITH FOOD IF NOT TOLERATED ON EMPTY STOMACH 200 May 02, 2019 [id number] Nov 14, 2018 BRITTANEY VILLEDA C FOLIC ACID 1MG TAB Active TAKE ONE TABLET BY MOUTH ONCE A DAY 90 Nov 22, 2019 [id number] Mar 18, 2019 BRITTANEY VILLEDA FOLIC ACID 1MG TAB Discontinued TAKE ONE TABLET BY MOUTH ONCE A DAY 90 May 02, 2019 [id number] Sep 26, 2018 BRITTANEY VILLEDA GABAPENTIN 300MG CAP Discontinued TAKE 2 CAPSULES BY MOUTH FOUR TITO ES A DAY 720 Jan 27, 2019 [id number] Nov 14, 2018 BRITTANEY VILLEDA [facility] GABAPENTIN 400MG CAP Active TAKE 1 CAPSULE BY MOUTH THREE TITO ES A DAY 270 Dec 07, 2019 [id number] Mar 18, 2019 BRITTANEY VILLEDA HYDROCODONE 10MG/ACETAMINOPHEN 325MG TAB Non-VA TAKE ONE TABLET BY MOUTH FOUR TIMES A DAY Non-VA Documented by: RAMY TRENT nted at: STEF[facility] SPAIN LISINOPRIL 10MG TAB Discontinued TAKE ONE-HALF TABLET BY MOUTH EVERY MORNING FOR HEART OR HIGH BLOOD PRESSURE 15 Jun 01, 2019 [id number] Jun 02, 2018 BRITTANEY VILLEDA [facility] LOSARTAN 25MG TAB Active TAKE ONE TABLET BY MOUTH ONCE A DAY FOR BLOOD PRESSURE 90 Jan 09, 2020 [id number] Apr 23, 2019 BRITTANEY VILLEDA CBO C LOSARTAN 25MG TAB Discontinued TAKE ONE TABLET BY M OUTH ONCE A DAY FOR BLOOD PRESSURE 90 July 13, 2019 [id number] Nov 14, 2018 TIERRA KWONG [facility] MELOXICAM 15MG TAB TAKE ONE TABLET BY M OUTH ONCE A DAY FOR PAIN OR INFLAMMATION. 90 Jun 01, 2019 [id number] Mar 18, 2019 BRITTANEY VILLEDA CBTERRENCE METOPROLOL TARTRATE 25MG TAB Active TAKE ONE-SMITH LF TABLET BY MOUTH TWO TIMES A DAY FOR HEART/BLOOD PRESSURE. TAKE WITH OR IMMEDIATELY FOLLOWING FOOD. 90 Jan 09, 2020 [id number] Apr 23, 2019 BRITTANEY VILLEDA [facility] METOPROLOL TARTRATE 25MG TAB Discontinued TAKE ONE-SMITH LF TABLET BY MOUTH TWO TIMES A DAY FOR HEART/BLOOD PRESSURE. TAKE WITH OR IMMEDIATELY FOLLOWING FOOD. 90 July 13, 2019 [id number] Nov 14, 2018 TIERRA KWONG [facility] SIMVASTATIN 40MG TAB Active TAKE ONE-HALF TABLE T BY MOUTH AT BEDTIME FOR CHOLESTEROL - REPORT ANY UNEXPLAINED MUSCLE PAIN OR WEAKNESS TO YOUR PROVIDER 45 Sep 27, 2019 [id number] Jun 24, 2019 BRITTANEY VILLEDA CBO C SIMVASTATIN 40MG TAB Discontinued TAKE ONE-HALF TABLE T BY MOUTH AT BEDTIME FOR CHOLESTEROL - REPORT ANY UNEXPLAINED MUSCLE PAIN OR WEAKNESS TO YOUR PROVIDER 45 Sep 23, 2018 [id number] Jul 05, 2018 BRITTANEY VILLEDA [facility] TAMSULOSIN HCL 0.4MG CAP Discontinued TAKE ONE CAPSUL E BY MOUTH ONCE A DAY FOR PROSTATE. TAKE AT THE SAME TIME EACH DAY WITH FOOD. 90 Jun 17 9 [id number] Jun 14, 2018 BRITTANEY VILLEDA TAMSULOSIN HCL 0.4MG CAP TAKE ONE CAPSUL E BY MOUTH ONCE A DAY FOR PROSTATE. TAKE AT THE SAME TIME EACH DAY WITH FOOD. 90 August 01 0 [id number] Jun 24, 2019 BRITTANEY VILLEDA TIOTROPIUM 2.5MCG/ACTUAT INHL,ORAL,60D,4GM Active INHALE 2 PUFFS BY ORAL INHALATION ONCE A DAY FOR BREATHING. DON'T USE WITH IPRATROPIUM - REPLACES ADVAIR. 3 Jun 24, 2020 [id number] Jun 24, 2019 BRITTANEY VILLEDA ONS CB TIOTROPIUM 2.5MCG/ACTUAT INHL,ORAL,60D,4GM Discontinued INHALE 2 PUFFS BY ORAL INHALATION ONCE A DAY FOR BREATHING. DON'T USE WITH IPRATROPIUM - REPLACES ADVAIR. 3 Oct 13, 2019 [id number] Mar 18, 2019 BRITTANEY VILLEDA CB Problems (Conditions): All historical and current Section Date Range: From patient's date of to the date document was create d. This section includes a list of Problems (Conditions) know n to [facility] for the patient. It includes both active and inacti ve problems (conditions). The data comes from all [place] treatment facilities. Problem Status Problem Code Date of Onset Date of Resolution Comm ent(s) Provider Source Actinic keratosis (SNOMED CT 774066183) Active 702.0 BRITTANEY VILLEDA [facility] Alcohol Dependence * (ICD-9-CM 303.90/303.91) Active 303.90 ALEXANDRA KWONG [facility] Anemia Active 285.9 SATHISH SCOTT [facility] ANGINA PECTORIS NEC/NOS 413.9 Active 413.9 W ALEXANDRA DE JESUS [facility] Anxiety Disorder Active 300.00 AURELIANO LINCOLN MD [facility] Benign Neoplasm Skin Head, Neck, Scalp Active 216.4 RENALDO DACOSTA [facility] CABG Active 799.9 Oct 05, 2006 E ntered By: SATHISH SCOTT Comment: feb, 4-vessel SATHISH SCOTT [facility] Chest discomfort (SNOMED CT 343738697) Active 786.59 BRITTANEY VILLEDA [facility] Chronic airway obstruction, Not Elsewhere Classified Active 496. AURELIANO LINCOLN MD [facility] Chronic Low Back Pain Active 724.2 AURELIANO LINCOLN MD [facility] COPD * (ICD-9-CM 496.) Active 496. [facility] Coronary Artery Disease * (ICD-9-CM 414.9) Active 414.9 ALEXANDRA KWONG [facility] Coronary Atherosclerosis of Hoh Coronary Vessel Active 414.01 August 03, 2010 Entered By: AURELIANO LINCOLN MD Comment: Bypass surgery AURELIANO LINCOLN MD [facility] Disorder of shoulder (SNOMED CT 246440504) Active 719.91 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 AURELIANO LIU MD [facility] Marijuana Dependence unspecified Active 304.30 AURELIANO LINCOLN MD [facility] Microscopic Hematuria (ICD-9-CM 599.72) Active 599.72 BEVERLY SALINAS [facility] Other and unspecified hyperlipidemia Active 272.4 AURELIANO LINCOLN MD [facility] Other, mixed, or unspecified drug abuse, continuous use Active 30 5.91 Jan 30, 2009 Entered By: SATHISH SCOTT Comment: urine drug screen positive for opitates and marijuannaMay 2009 Entered By: SATHISH SCOTT Comment: buying hydrocodone "off the street" SATHISH SCOTT [facility] Pain in joint involving ankle and foot (ICD-9-CM 719.47) Active 719 .47 SATHISH SCOTT [facility] Papular eruption (SNOMED CT 061552763) Active 709.8 [facility] Personal History of Noncompliance with M edical Treatment, Presenting Hazards to Active V15.81 SATHISH SCOTT [facility] Tobacco dependence syndrome (SNOMED CT 35051012) Active [id number] July 24, 2009 Entered By: SATHISH SCOTT Comment: one ppd YUMI AVILA [facility] Transient Ischemic Attack * (ICD-9-CM 435.9) Active 435.9 [facility] ANIETY STAT NOS 300.00 Inactive 300.00 Jan 05, 2005 ALEXANDRA FLOREZ [facility] Bronchitis * (ICD-9-CM 490.) Inactive 490. Jan 05, 2005 BRITTANEY VILLEDA [facility] Postsurgical Aortocoronary Bypass Status (ICD-9-CM V45.81) Inactive V45.81 Oct 05, 2006 SATHISH SCOTT [facility] Radiology Reports: +/- 30 days of the encounter No Data Provided for This Section Pathology Reports: +/- 30 days of the encounter No Data Provided for This Section Encounter Notes: All associated encounter notes No Data Provided for This Section
--- OUTSIDE RECORDS SUMMARY | 2019-08-16 03:54 | XMS REPORT | Encounter Summary ---
Author Author Department [facility] JUAN MANUEL posey Organization Department of [facility] Address [address] [place] [id number] Phone Unavailable Care Team Providers Care Derrick Boat Operator Name Role Phone BRITTANEY VILLEDA PCP [...] PART B Apr 13, 2007 PART B [id number] [phone] JUAN MANUEL MARTIN PATIENT MEDICARE (WNR) MEDICARE (M) PART B Apr 13, 2007 PART B [id number] [phone] JUAN MANUEL MARTIN PATIENT MEDICARE (WNR) MEDICARE (M) PART A Sep 10, 2005 PART A [id number] [phone] JUAN MANUEL MARTIN PATIENT MEDICARE (WNR) MEDICARE (M) PART A Sep 10, 2005 PART A [id number] [phone] JUAN MANUEL MARTIN PATIENT MEDICARE (WNR) MEDICARE (M) PART A Sep 10, 2005 PART A [id number] JUAN MANUEL MARTIN PATIENT Selected Encounter This section includes the information on record at NH for the Encounter. Date/Time Encounter Type Encounter Description Reason Provider Source Jan 28, 2019 12:00 AM Outpatient Encounter EVENT (HISTORICAL) [facility], [facility] 15 IHE Encounter Template Text not used by NH Assessments - Encounter Diagnoses No Data Provided [...] Hematology Lab R esults on record with NH for the patient. Radiology Reports and Pathology Report s are provided separately, in subsequent sections. Lab Results This section contains the Chemistry/Hematology Results kenyatta t were resulted 30 days before or 30 days after the date of the Encounter. Date/Time Source Result Type Result - Unit Interpretation Reference Range Comment Jan 23, 2019 09:15 AM [facility] IRON/TIBC Specimen Type: SERUM No comment [...] % Jan 08, 2019 08:20 AM [facility] COMPREHENSIVE METABOLIC PA SUNI Specimen Type: PLASMA [...] EGFR >60 Jan 08, 2019 08:20 AM [facility] LIPID PROFILE(HDL,TRIG,CHO L,LDL) Specimen Type: PLASMA Comment: For eGFR: eGFR results >60 are imprecise. Many variables affect the calculated result. Interpretation of eGFR results >60 must be monitored over time. CHOLESTEROL 145 mg/dL 0-200 TRIGS 74 mg/dL 0-150 HDL-CHOLESTEROL 62 mg/dL >40 LDL (CALC) 68 mg/dL 0-99.9 Jan 08, 2019 08:20 AM [facility] TSH Specimen Type: SERUM No comment entered. TSH 1.90 uIU/mL 0.47-5.00 Jan 08, 2019 08:20 AM [facility] PROSTATIC SPECIFIC ANTIGEN (TOTAL) Specimen Type: SERUM No comment entered. PROSTATIC SPECIFIC ANTIGEN(TOTAL) 1.1 ng/mL 0-4 Jan 02, 2019 08:29 AM [facility] CBC & DIFF Specimen [...] docume nt. The data comes from all [place] facilities. Date Advance Directives Provider Source Jan 02, 2018 ADVANCE DIRECTIVE DISCUSSION FLO KRUEGER CB Oct 17, 2000 ADVANCE DIRECTIVE EUNICE RODRIGUEZ [facility], [facility] 15 Allergies and Adverse Reactions (ADRs): All historical and current Section Date Range: From patient's date of to the date document was create d. This section includes Allergies and Adverse Reactions (ADR s) on record with [facility] for the patient. The data comes from a ll [place] treatment facilities. It does not list Allergies/ADRs that were removed or entered in error. Some allergies/ADRs may be reported in t he Immunization section. Allergen Event Date Event Type Reaction(s) Severity Source No Known Allergies [facility] No Allergy Assessment on File JEOVANNY MORGAN Medications: [facility] dispensed (-15 months) and Non-VA Documented (Obtained Outside A) Section Date Range: 1) prescriptions processed by a [facility] pharmacy in the last 15 m [facility], and 2) all medications recorded in the [place] medical record as "non-VA medic ations". Pharmacy terms refer to NH pharmacy's work on prescriptions. [facility] patient s are advised to take their medications as instructed by their health care team. The data comes from all [place] treatment facilities. Glossary of Pharmacy Terms:Active = A prescription that can be filled at the local [place] pharmacy.Active: On Hold = An active prescription that will not be filled until pharmacy resolves the issue.Active: Susp = An active prescription that is not scheduled to be filled yet.Clinic Order = A medication received during a visit to a [place] clinic or emergency department (currently not available).Discontinued [...] A DAY NEEDED 180 Jan 09, 2020 [id number] Apr 10, 2019 MAK VILLEDA [facility] ALBUTEROL SO4 0.083% INHL,3ML Discontinued USE 3 MLS IN NEBULIZER FOR INHALATION TWO TIMES A DAY NEEDED 180 Jan 27, 2019 [id number] Nov 01, 2018 BRITTANEY VENEGAS ALBUTEROL SO4 90MCG/ACTUAT (CFC-F) INHL,ORAL,6.7GM Active INHALE 2 PUFFS BY ORAL INHALATION TWO TIMES A DAY NEEDED - RINSE MOUTHPIECE FREQUENTLY TO PREVENT CLOGGING 2 Aug 30, 2019 [id number] Mar 18, 2019 BRITTANEY VILLEDA CBTERRENCE ALBUTEROL SO4 90MCG/ACTUAT (CFC-F) INHL,ORAL,6.7GM Discontin ued INHALE 2 PUFFS BY ORAL INHALATION TWO TIMES A DAY NEEDED - RINSE MOUTHPIECE FREQUENTLY TO PREVENT CLOGGING 2 Mar 27, 2019 [id number] Aug 30, 2018 BRITTANEY VILLEDA BUDESONIDE 80MCG/FORMOTEROL FUM 4.5MCG/SPRAY INHL,ORAL,10.2G M Active INHALE 2 PUFFS BY ORAL INHALATION TWO TIMES A DAY FOR BREATHING. SHAKE WELL. RINSE MOUTH AND SPIT AFTER EACH USE. 3 Jun 24, 2020 [id number] Jun 24, 2019 BRITTANEY VILLEDA BUDESONIDE 80MCG/FORMOTEROL FUM 4.5MCG/SPRAY INHL,ORAL,10.2G M Discontinued INHALE 2 PUFFS BY ORAL INHALATION TWO TIMES A DAY FOR BREATHING. SHAKE WELL. RINSE MOUTH AND SPIT AFTER EACH USE. 3 Dec 07, 2019 [id number] Mar 18, 2019 BRITTANEY VILLEDA FERROUS SO4 324MG TAB,EC Active TAKE ONE TABLET BY MOUTH TWO TIMES A DAY FOR IRON SUPPLEMENTATION. MAY TAKE WITH FOOD IF NOT TOLERATED ON EMPTY STOMACH 200 Jan 09, 2020 [id number] Apr 23, 2019 BRITTANEY VILLEDA FERROUS SO4 324MG TAB,EC Discontinued TAKE ONE TABLET BY MOUTH TWO TIMES A DAY FOR IRON SUPPLEMENTATION. MAY TAKE WITH FOOD IF NOT TOLERATED ON EMPTY STOMACH 200 May 02, 2019 [id number] Nov 14, 2018 BRITTANEY VILLEDA C FOLIC ACID 1MG TAB Active TAKE ONE TABLET BY MOUTH ONCE A DAY 90 Nov 22, 2019 [id number] Mar 18, 2019 BRITTANEY VILLEDA FOLIC ACID 1MG TAB Discontinued TAKE ONE TABLET BY MOUTH ONCE A DAY 90 May 02, 2019 [id number] Sep 26, 2018 BRITTANEY VILLEDA GABAPENTIN 300MG CAP Discontinued TAKE 2 CAPSULES BY MOUTH FOUR TITO ES A DAY 720 Jan 27, 2019 [id number] Nov 14, 2018 BRITTANEY VILLEDA GABAPENTIN 400MG CAP Active TAKE 1 CAPSULE BY MOUTH THREE TITO ES A DAY 270 Dec 07, 2019 [id number] Mar 18, 2019 BRITTANEY VILLEDA HYDROCODONE 10MG/ACETAMINOPHEN 325MG TAB Non-VA TAKE ONE TABLET BY MOUTH FOUR TIMES A DAY Non-VA Documented by: RAMY TRENT nted at: STEFANI SPAIN LISINOPRIL 10MG TAB Discontinued TAKE ONE-HALF TABLET BY MOUTH EVERY MORNING FOR HEART OR HIGH BLOOD PRESSURE 15 Jun 01, 2019 [id number] Jun 02, 2018 BRITTANEY VILLEDA [facility] LOSARTAN 25MG TAB Active TAKE ONE TABLET BY MOUTH ONCE A DAY FOR BLOOD PRESSURE 90 Jan 09, 2020 [id number] Apr 23, 2019 BRITTANEY VILLEDA C LOSARTAN 25MG TAB Discontinued TAKE ONE TABLET BY M OUTH ONCE A DAY FOR BLOOD PRESSURE 90 July 13, 2019 [id number] Nov 14, 2018 TIERRA KWONG [facility] MELOXICAM 15MG TAB TAKE ONE TABLET BY M OUTH ONCE A DAY FOR PAIN OR INFLAMMATION. 90 Jun 01, 2019 [id number] Mar 18, 2019 BRITTANEY VILLEDA METOPROLOL TARTRATE 25MG TAB Active TAKE ONE-SMITH LF TABLET BY MOUTH TWO TIMES A DAY FOR HEART/BLOOD PRESSURE. TAKE WITH OR IMMEDIATELY FOLLOWING FOOD. 90 Jan 09, 2020 [id number] Apr 23, 2019 BRITTANEY VILLEDA METOPROLOL TARTRATE 25MG TAB Discontinued TAKE ONE-SMITH LF TABLET BY MOUTH TWO TIMES A DAY FOR HEART/BLOOD PRESSURE. TAKE WITH OR IMMEDIATELY FOLLOWING FOOD. 90 July 13, 2019 [id number] Nov 14, 2018 TIERRA KWONG Enrrique BROWN [facility] SIMVASTATIN 40MG TAB Active TAKE ONE-HALF TABLE T BY MOUTH AT BEDTIME FOR CHOLESTEROL - REPORT ANY UNEXPLAINED MUSCLE PAIN OR WEAKNESS TO YOUR PROVIDER 45 Sep 27, 2019 [id number] Jun 24, 2019 BRITTANEY VILLEDA C SIMVASTATIN 40MG TAB Discontinued TAKE ONE-HALF TABLE T BY MOUTH AT BEDTIME FOR CHOLESTEROL - REPORT ANY UNEXPLAINED MUSCLE PAIN OR WEAKNESS TO YOUR PROVIDER 45 Sep 23, 2018 [id number] Jul 05, 2018 BRITTANEY VILLEDA CBO C TAMSULOSIN HCL 0.4MG CAP Discontinued TAKE ONE CAPSUL E BY MOUTH ONCE A DAY FOR PROSTATE. TAKE AT THE SAME TIME EACH DAY WITH FOOD. 90 Jun 17 9 [id number] Jun 14, 2018 BRITTANEY VILLEDA TAMSULOSIN HCL 0.4MG CAP TAKE ONE CAPSUL E BY MOUTH ONCE A DAY FOR PROSTATE. TAKE AT THE SAME TIME EACH DAY WITH FOOD. 90 August 01 0 [id number] Jun 24, 2019 BRITTANEY VILLEDA TIOTROPIUM 2.5MCG/ACTUAT INHL,ORAL,60D,4GM Active INHALE 2 PUFFS BY ORAL INHALATION ONCE A DAY FOR BREATHING. DON'T USE WITH IPRATROPIUM - REPLACES ADVAIR. 3 Jun 24, 2020 [id number] Jun 24, 2019 BRITTANEY VILLEDA TIOTROPIUM 2.5MCG/ACTUAT INHL,ORAL,60D,4GM Discontinued INHALE 2 PUFFS BY ORAL INHALATION ONCE A DAY FOR BREATHING. DON'T USE WITH IPRATROPIUM - REPLACES ADVAIR. 3 Oct 13, 2019 [id number] Mar 18, 2019 BRITTANEY VILLEDA Problems (Conditions): All historical and current Section Date Range: From patient's date of to the date document was create d. This section includes a list of Problems (Conditions) know n to NH for the patient. It includes both active and inacti ve problems (conditions). The data comes from all [place] treatment facilities. Problem Status Problem Code Date of Onset Date of Resolution Comm ent(s) Provider Source Actinic keratosis (SNOMED CT 639084071) Active 702.0 [facility]Y [facility] Alcohol Dependence * (ICD-9-CM 303.90/303.91) Active 303.90 [facility] Anemia Active 285.9 SATHISH SCOTT [facility] ANGINA PECTORIS NEC/NOS 413.9 Active 413.9 W [facility]ARD[facility] Anxiety Disorder Active 300.00 AURELIANO LINCOLN MD [facility] Benign Neoplasm Skin Head, Neck, Scalp Active 216.4 RENALDO DACOSTA [facility] CABG Active 799.9 Oct 05, 2006 E ntered By: SATHISH SCOTT Comment: feb, 4-vessel SATHISH SCOTT [facility] Chest discomfort (SNOMED CT 489863414) Active 786.59 BRITTANEY VILLEDA [facility] Chronic airway obstruction, Not Elsewhere Classified Active 496. AURELIANO LINCOLN MD [facility] Chronic Low Back Pain Active 724.2 AURELIANO LINCOLN MD [facility] COPD * (ICD-9-CM 496.) Active 496. Robin SCOTT [facility] Coronary Artery Disease * (ICD-9-CM 414.9) Active 414.9 ALEXANDRA KWNOG [facility] Coronary Atherosclerosis of [place] Coronary Vessel Active 414.01 August 03, 2010 Entered By: AURELIANO LINCOLN MD Comment: Bypass surgery AURELIANO LINCOLN MD [facility] Disorder of shoulder (SNOMED CT 363713047) Active 719.91 [facility] Essential Hypertension Active 401.9 AURELIANO LINCOLN MD [facility] Hyperlipidemia Active 272.4 SATHISH SCOTT [facility] HYPERTENSION NOS 401.9 Active 401.9 ALEXANDRA [facility] Impotence (SNOMED CT 436827887) Active 302.72 BRITTANEY VILLEDA [facility] 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 Other and unspecified hyperlipidemia Active 272.4 AURELIANO LINCOLN MD [facility] Other, mixed, or unspecified drug abuse, continuous use Active 30 5.91 Jan 30, 2009 Entered By: SATHISH SCOTT Comment: urine drug screen positive for opitates and marijuannaMay 2009 Entered By: SATHISH SCOTT Comment: buying hydrocodone "off the street" SATHISH SCOTT [facility] Pain in joint involving ankle and foot (ICD-9-CM 719.47) Active 719 .47 [facility] Papular eruption (SNOMED CT 629019581) Active 709.8 [facility] Personal History of Noncompliance with M edical Treatment, Presenting Hazards to Active V15.81 [facility]ISH [facility]OTT [facility] Tobacco dependence syndrome (SNOMED CT 19149762) Active [id number] July 24, 2009 Entered By: SATHISH SCOTT Comment: one YUMI Gibbons [facility] Transient Ischemic Attack * (ICD-9-CM 435.9) Active 435.9 SATHISH SCOTT [facility] ANIETY STAT NOS 300.00 Inactive 300.00 Jan 05, 2005 [facility] FL[facility] Bronchitis * (ICD-9-CM 490.) Inactive 490. Jan 05, 2005 [facility] Postsurgical Aortocoronary Bypass Status (ICD-9-CM V45.81) Inactive V45.81 Oct 05, 2006 [facility]OTT [facility] Radiology Reports: +/- 30 days of the encounter No Data Provided for This Section Pathology Reports: +/- 30 days of the encounter No Data Provided for This Section Encounter Notes: All associated encounter notes No Data Provided for This Section
--- OUTSIDE RECORDS SUMMARY | 2019-08-16 03:55 | XMS REPORT | Encounter Summary ---
Author Author [facility] JUAN MANUEL posey Organization Department of [facility] Address [address] [place] [id number] Phone Unavailable Care Team Providers Care Dance Hall Hostess Name Role Phone BRITTANEY VILLEDA PCP Unavailable [...] PART B Apr 13, 2007 PART B [id number] [phone] MARTIN,GARY PATIENT MEDICARE (WNR) MEDICARE (M) PART B Apr 13, 2007 PART B [id number] JUAN MANUEL MARTIN PATIENT MEDICARE (WNR) MEDICARE (M) PART A Sep 10, 2005 PART A [id number] [phone] MARTINJUAN MANUEL PATIENT MEDICARE (WNR) MEDICARE (M) PART A Sep 10, 2005 PART A [id number] [phone] MARTIN,GARY PATIENT MEDICARE (WNR) MEDICARE (M) PART A Sep 10, 2005 PART A [id number] JUAN MANUEL MARTIN PATIENT Selected Encounter This section includes the information on record at [place] for the Encounter. Date/Time Encounter Type Encounter Description Reason Provider Source Jan 27, 2019 12:00 AM Outpatient Encounter EVENT (HISTORICAL) [facility], [facility] 15 IHE Encounter Template Text not used by [place] Assessments - Encounter Diagnoses No Data Provided [...] % Jan 08, 2019 08:20 AM [facility] COMPREHENSIVE METABOLIC PA SUNI Specimen [...] EGFR >60 Jan 08, 2019 08:20 AM KO [facility] LIPID PROFILE(HDL,TRIG,CHO L,LDL) Specimen Type: [...] of a patient's completed or amen ded [place] Advance and Rescinded Directives. The entries below indicate that a direc tive exists for the patient, but an actual copy is not included with this docume nt. The data comes from all [place] facilities. Date Advance Directives Provider Source Jan 02, 2018 ADVANCE DIRECTIVE DISCUSSION FLO KRUEGER [facility] Oct 17, 2000 ADVANCE DIRECTIVE EUNICE RODRIGUEZ [facility], [facility] 15 Allergies and Adverse Reactions (ADRs): All historical and current Section Date Range: From patient's date of to the date document was create d. This section includes Allergies and Adverse Reactions (ADR s) on record with [facility] for the patient. The data comes from a ll [place] treatment facilities. It does not list Allergies/ADRs that were removed or entered in error. Some allergies/ADRs may be reported in t he Immunization section. Allergen Event Date Event Type Reaction(s) Severity Source No Known Allergies [facility] No Allergy Assessment on File [facility] Medications: [facility] dispensed (-15 months) and Non-VA Documented (Obtained Outside V A) Section Date Range: 1) prescriptions processed by a [facility] pharmacy in the last 15 m ont, and 2) all medications recorded in the [place] medical record as "non-VA medic ations". Pharmacy terms refer to [place] pharmacy's work on prescriptions. [facility] patient s are advised to take their medications as instructed by their health care team. The data comes from all [place] treatment facilities. Glossary of Pharmacy Terms:Active = A prescription that can be filled at the local [place] pharmacy.Active: On Hold = An active prescription that will not be filled until pharmacy resolves the issue.Active: Susp = An active prescription that is not scheduled to be filled yet.Clinic Order = A medication received during a visit to a [place] clinic or emergency department (currently not available).Discontinued [...] A DAY NEEDED 180 Jan 09, 2020 [id number] Apr 10, 2019 MAK VILLEDA CBTERRENCE ALBUTEROL SO4 0.083% INHL,3ML Discontinued USE 3 MLS IN NEBULIZER FOR INHALATION TWO TIMES A DAY NEEDED 180 Jan 27, 2019 [id number] Nov 01, 2018 BRITTANEY VENEGAS ALBUTEROL SO4 90MCG/ACTUAT (CFC-F) INHL,ORAL,6.7GM Active INHALE 2 PUFFS BY ORAL INHALATION TWO TIMES A DAY NEEDED - RINSE MOUTHPIECE FREQUENTLY TO PREVENT CLOGGING 2 Aug 30, 2019 [id number] Mar 18, 2019 BRITTANEY VILLEDA ALBUTEROL SO4 90MCG/ACTUAT (CFC-F) INHL,ORAL,6.7GM Discontin ued INHALE 2 PUFFS BY ORAL INHALATION TWO TIMES A DAY NEEDED - RINSE MOUTHPIECE FREQUENTLY TO PREVENT CLOGGING 2 Mar 27, 2019 [id number] Aug 30, 2018 BRITTANEY VILLEDA BUDESONIDE 80MCG/FORMOTEROL FUM 4.5MCG/SPRAY INHL,ORAL,10.2G M Active INHALE 2 PUFFS BY ORAL INHALATION TWO TIMES A DAY FOR BREATHING. SHAKE WELL. RINSE MOUTH AND SPIT AFTER EACH USE. 3 Jun 24, 2020 [id number] Jun 24, 2019 BRITTANEY VILLEDA BUDESONIDE 80MCG/FORMOTEROL FUM 4.5MCG/SPRAY INHL,ORAL,10.2G M Discontinued INHALE 2 PUFFS BY ORAL INHALATION TWO TIMES A DAY FOR BREATHING. SHAKE WELL. RINSE MOUTH AND SPIT AFTER EACH USE. 3 Dec 07, 2019 [id number] Mar 18, 2019 BRITTANEY VILLEDA FERROUS SO4 324MG TAB,EC Active TAKE ONE TABLET BY MOUTH TWO TIMES A DAY FOR IRON SUPPLEMENTATION. MAY TAKE WITH FOOD IF NOT TOLERATED ON EMPTY STOMACH 200 Jan 09, 2020 [id number] Apr 23, 2019 BRITTANEY VILLEDA FERROUS SO4 324MG TAB,EC Discontinued TAKE ONE TABLET BY MOUTH TWO TIMES A DAY FOR IRON SUPPLEMENTATION. MAY TAKE WITH FOOD IF NOT TOLERATED ON EMPTY STOMACH 200 May 02, 2019 [id number] Nov 14, 2018 BIRTTANEY VILLEDA C FOLIC ACID 1MG TAB Active TAKE ONE TABLET BY MOUTH ONCE A DAY 90 Nov 22, 2019 [id number] Mar 18, 2019 BRITTANEY VILLEDA FOLIC ACID 1MG TAB Discontinued TAKE ONE TABLET BY MOUTH ONCE A DAY 90 May 02, 2019 [id number] Sep 26, 2018 BRITTANEY VILLEDA GABAPENTIN 300MG CAP Discontinued TAKE 2 CAPSULES BY MOUTH FOUR TITO ES A DAY 720 Jan 27, 2019 [id number] Nov 14, 2018 BRITTANEY VILLEDA GABAPENTIN 400MG CAP Active TAKE 1 CAPSULE BY MOUTH THREE TITO ES A DAY 270 Dec 07, 2019 [id number] Mar 18, 2019 BRITTANEY VILLEDA HYDROCODONE 10MG/ACETAMINOPHEN 325MG TAB Non-VA TAKE ONE TABLET BY MOUTH FOUR TIMES A DAY Non-VA Documented by: RAMY TRENT nted at: STEFANI SPAIN LISINOPRIL 10MG TAB Discontinued TAKE ONE-HALF TABLET BY MOUTH EVERY MORNING FOR HEART OR HIGH BLOOD PRESSURE 15 Jun 01, 2019 [id number] Jun 02, 2018 BRITTANEY VILLEDA LOSARTAN 25MG TAB Active TAKE ONE TABLET BY MOUTH ONCE A DAY FOR BLOOD PRESSURE 90 Jan 09, 2020 [id number] Apr 23, 2019 BRITTANEY VILLEDA C LOSARTAN 25MG TAB Discontinued TAKE ONE TABLET BY M OUTH ONCE A DAY FOR BLOOD PRESSURE 90 July 13, 2019 [id number] Nov 14, 2018 TIERRA KWONG [facility] MELOXICAM 15MG TAB TAKE ONE TABLET BY M OUTH ONCE A DAY FOR PAIN OR INFLAMMATION. 90 Jun 01, 2019 [id number] Mar 18, 2019 BRITTANEY VILLEDA METOPROLOL TARTRATE 25MG TAB Active TAKE ONE-SMITH LF TABLET BY MOUTH TWO TIMES A DAY FOR HEART/BLOOD PRESSURE. TAKE WITH OR IMMEDIATELY FOLLOWING FOOD. 90 Jan 09, 2020 [id number] Apr 23, 2019 BRITTANEY VILLEDA METOPROLOL TARTRATE 25MG TAB Discontinued TAKE ONE-SMITH LF TABLET BY MOUTH TWO TIMES A DAY FOR HEART/BLOOD PRESSURE. TAKE WITH OR IMMEDIATELY FOLLOWING FOOD. 90 July 13, 2019 [id number] Nov 14, 2018 TIERRA KWONG PREETHI BROWN [facility] SIMVASTATIN 40MG TAB Active TAKE ONE-HALF TABLE T BY MOUTH AT BEDTIME FOR CHOLESTEROL - REPORT ANY UNEXPLAINED MUSCLE PAIN OR WEAKNESS TO YOUR PROVIDER 45 Sep 27, 2019 [id number] Jun 24, 2019 BRITTANEY VILLEDA C SIMVASTATIN 40MG TAB Discontinued TAKE ONE-HALF TABLE T BY MOUTH AT BEDTIME FOR CHOLESTEROL - REPORT ANY UNEXPLAINED MUSCLE PAIN OR WEAKNESS TO YOUR PROVIDER 45 Sep 23, 2018 [id number] Jul 05, 2018 BRITTANEY VILLEDA C TAMSULOSIN HCL 0.4MG CAP Discontinued TAKE ONE CAPSUL E BY MOUTH ONCE A DAY FOR PROSTATE. TAKE AT THE SAME TIME EACH DAY WITH FOOD. 90 Jun 17 9 [id number] Jun 14, 2018 BRITTANEY VILLEDA TAMSULOSIN HCL 0.4MG CAP TAKE ONE CAPSUL E BY MOUTH ONCE A DAY FOR PROSTATE. TAKE AT THE SAME TIME EACH DAY WITH FOOD. 90 August 01 0 [id number] Jun 24, 2019 BRITTANEY VILLEDA TIOTROPIUM 2.5MCG/ACTUAT INHL,ORAL,60D,4GM Active INHALE 2 PUFFS BY ORAL INHALATION ONCE A DAY FOR BREATHING. DON'T USE WITH IPRATROPIUM - REPLACES ADVAIR. 3 Jun 24, 2020 [id number] Jun 24, 2019 BRITTANEY VILLEDA TIOTROPIUM 2.5MCG/ACTUAT INHL,ORAL,60D,4GM Discontinued INHALE 2 PUFFS BY ORAL INHALATION ONCE A DAY FOR BREATHING. DON'T USE WITH IPRATROPIUM - REPLACES ADVAIR. 3 Oct 13, 2019 [id number] Mar 18, 2019 BRITTANEY VILLEDA Problems (Conditions): All historical and current Section Date Range: From patient's date of to the date document was create d. This section includes a list of Problems (Conditions) know n to [place] for the patient. It includes both active and inacti ve problems (conditions). The data comes from all [place] treatment facilities. Problem Status Problem Code Date of Onset Date of Resolution Comm ent(s) Provider Source Actinic keratosis (SNOMED CT 778448997) Active 702.0 BRITTANEY VILLEDA [facility] Alcohol Dependence * (ICD-9-CM 303.90/303.91) Active 303.90 ALEXANDRA KWONG [facility] Anemia Active 285.9 SATHISH SCOTT [facility] ANGINA PECTORIS NEC/NOS 413.9 Active 413.9 W ALEXANDRA DE JESUS [facility] Anxiety Disorder Active 300.00 AURELIANO LINCOLN MD [facility] Benign Neoplasm Skin Head, Neck, Scalp Active 216.4 RENALDO DACOSTA [facility] CABG Active 799.9 Oct 05, 2006 E ntered By: SATHISH SCOTT Comment: feb, 4-vessel SATHISH SCOTT [facility] Chest discomfort (SNOMED CT 078027793) Active 786.59 BRITTANEY VILLEDA [facility] Chronic airway obstruction, Not Elsewhere Classified Active 496. AURELIANO LINCOLN MD [facility] Chronic Low Back Pain Active 724.2 AURELIANO LINCOLN MD [facility] COPD * (ICD-9-CM 496.) Active 496. Robin SCOTT [facility] Coronary Artery Disease * (ICD-9-CM 414.9) Active 414.9 ALEXANDRA KWONG [facility] Coronary Atherosclerosis of [place] Coronary Vessel Active 414.01 August 03, 2010 Entered By: AURELIANO LINCOLN MD Comment: Bypass surgery AURELIANO LINCOLN MD [facility] Disorder of shoulder (SNOMED CT 731565656) [facility] 719.91 [facility] Essential Hypertension Active 401.9 AURELIANO LINCOLN MD [facility] Hyperlipidemia Active 272.4 SATHISH SCOTT [facility] HYPERTENSION NOS 401.9 Active 401.9 ALEXANDRA KWONG [facility] Impotence (SNOMED CT 940338266) Active 302.72 BRITTANEY VILLEDA [facility] 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 AURELIANO LIU MD [facility] Marijuana Dependence unspecified Active 304.30 AURELIANO LINCOLN MD [facility] Microscopic Hematuria (ICD-9-CM 599.72) Active 599.72 BEVERLY SALINAS [facility] Other and unspecified hyperlipidemia Active 272.4 AURELIANO LINCOLN MD [facility] Other, mixed, or unspecified drug abuse, continuous use Active 30 5.91 Jan 30, 2009 Entered By: SATHISH SCOTT Comment: urine drug screen positive for opitates and marijuannaMay 2009 Entered By: SATHISH SCOTT Comment: buying hydrocodone "off the street" SATHISH SCOTT [facility] Pain in joint involving ankle and foot (ICD-9-CM 719.47) Active 719 .[address] Papular eruption (SNOMED CT 217393286) Active 709.[address] [facility] Personal History of Noncompliance with M edical Treatment, Presenting Hazards to Active V15.81 SATHISH SCOTT [facility] Tobacco dependence syndrome (SNOMED CT 41038927) Active [id number] July 24, 2009 Entered By: SATHISH SCOTT Comment: one ppd YUMI AVILA [facility] Transient Ischemic Attack * (ICD-9-CM 435.9) Active 435.9 STAHISH SCOTT [facility] ANIETY STAT NOS 300.00 Inactive 300.00 Jan 05, [address] [facility] Bronchitis * (ICD-9-CM 490.) Inactive 490. Jan 05, [address] [facility] Postsurgical Aortocoronary Bypass Status (ICD-9-CM V45.81) Inactive V45.81 Oct 05, 2006 SATHISH SCOTT [facility] Radiology Reports: +/- 30 days of the encounter No Data Provided for This Section Pathology Reports: +/- 30 days of the encounter No Data Provided for This Section Encounter Notes: All associated encounter notes No Data Provided for This Section
--- OUTSIDE RECORDS SUMMARY | 2019-08-16 03:55 | XMS REPORT ---
Author Author [facility] JUAN MANUEL posey Organization Department of [facility] Address [address] [place] [id number] Phone Unavailable Care Team Providers Care School Inspector Name Role Phone BIRTTANEY VILLEDA PCP Unavailable Insurance Providers: All historical [...] PART B Apr 13, 2007 PART B [id number] [phone] MARTIN,GARY PATIENT MEDICARE (WNR) MEDICARE (M) PART B Apr 13, 2007 PART B [id number] [phone] JUAN MANUEL MARTIN PATIENT MEDICARE (WNR) MEDICARE (M) PART A Sep 10, 2005 PART A [id number] [id number] MARTIN,JUAN MANUEL PATIENT MEDICARE (WNR) MEDICARE (M) PART A Sep 10, 2005 PART A [id number] [phone] JUAN MANUEL MARTIN PATIENT MEDICARE (WNR) MEDICARE (M) PART A Sep 10, 2005 PART A [id number] JUAN MANUEL MARTIN PATIENT Selected Encounter This section includes the information on record at AL for the Encounter. Date/Time Encounter Type Encounter Description Reason Provider Source Jan 28, 2019 12:00 AM Outpatient Encounter ADMIN PAT ACTIVTIES (MELANIE CUADRA) [facility] Encounter Template Text not used by AL Assessments - Encounter Diagnoses No Data Provided [...] Hematology Lab R esults on record with AL for the patient. Radiology Reports and Pathology [...] % Jan 08, 2019 08:20 AM KO [facility] COMPREHENSIVE METABOLIC PA SUNI Specimen Type: [...] EGFR >60 Jan 08, 2019 08:20 AM [employer] LIPID PROFILE(HDL,TRIG,CHO L,LDL) Specimen Type: PLASMA Comment: [...] docume nt. The data comes from all AL facilities. Date Advance Directives Provider Source Jan 02, 2018 ADVANCE DIRECTIVE DISCUSSION FLO KRUEGER CB Oct 17, 2000 ADVANCE DIRECTIVE EUNICE RODRIGUEZ [facility], [facility] 15 Allergies and Adverse Reactions (ADRs): All historical and current Section Date Range: From patient's date of to the date document was create d. This section includes Allergies and Adverse Reactions (ADR s) on record with [facility] for the patient. The data comes from a ll AL treatment facilities. It does not list Allergies/ADRs that were removed or entered in error. Some allergies/ADRs may be reported in t he Immunization section. Allergen Event Date Event Type Reaction(s) Severity Source No Known Allergies [facility] No Allergy Assessment on File [facility] Medications: VA dispensed (-15 months) and Non-VA Documented (Obtained Outside A) Section Date Range: 1) prescriptions processed by a VA pharmacy in the last 15 m ont, and 2) all medications recorded in the AL medical record as "non-VA medic ations". Pharmacy terms refer to AL pharmacy's work on prescriptions. VA patient s are advised to take their medications as instructed by their health care team. The data comes from all AL treatment facilities. Glossary of Pharmacy Terms:Active = A prescription that can be filled at the local AL pharmacy.Active: On Hold = An active prescription that will not be filled until pharmacy resolves the issue.Active: Susp = An active prescription that is not scheduled to be filled yet.Clinic Order = A medication received during a visit to a AL clinic or emergency department (currently not available).Discontinued [...] A DAY NEEDED 180 Jan 09, 2020 [id number] Apr 10, 2019 MAK VILLEDA CBTERRENCE ALBUTEROL SO4 0.083% INHL,3ML Discontinued USE 3 MLS IN NEBULIZER FOR INHALATION TWO TIMES A DAY NEEDED 180 Jan 27, 2019 [id number] Nov 01, 2018 BRITTANEY VENEGAS ALBUTEROL SO4 90MCG/ACTUAT (CFC-F) INHL,ORAL,6.7GM Active INHALE 2 PUFFS BY ORAL INHALATION TWO TIMES A DAY NEEDED - RINSE MOUTHPIECE FREQUENTLY TO PREVENT CLOGGING 2 Aug 30, 2019 [id number] Mar 18, 2019 BRITTANEY VILLEDA ALBUTEROL SO4 90MCG/ACTUAT (CFC-F) INHL,ORAL,6.7GM Discontin ued INHALE 2 PUFFS BY ORAL INHALATION TWO TIMES A DAY NEEDED - RINSE MOUTHPIECE FREQUENTLY TO PREVENT CLOGGING 2 Mar 27, 2019 [id number] Aug 30, 2018 BRITTANEY VILLEDA BUDESONIDE 80MCG/FORMOTEROL FUM 4.5MCG/SPRAY INHL,ORAL,10.2G M Active INHALE 2 PUFFS BY ORAL INHALATION TWO TIMES A DAY FOR BREATHING. SHAKE WELL. RINSE MOUTH AND SPIT AFTER EACH USE. 3 Jun 24, 2020 [id number] Jun 24, 2019 BRITTANEY VILLEDA BUDESONIDE 80MCG/FORMOTEROL FUM 4.5MCG/SPRAY INHL,ORAL,10.2G M Discontinued INHALE 2 PUFFS BY ORAL INHALATION TWO TIMES A DAY FOR BREATHING. SHAKE WELL. RINSE MOUTH AND SPIT AFTER EACH USE. 3 Dec 07, 2019 [id number] Mar 18, 2019 BRITTANEY VILLEDA FERROUS SO4 324MG TAB,EC Active TAKE ONE TABLET BY MOUTH TWO TIMES A DAY FOR IRON SUPPLEMENTATION. MAY TAKE WITH FOOD IF NOT TOLERATED ON EMPTY STOMACH 200 Jan 09, 2020 [id number] Apr 23, 2019 BRITTANEY VILLEDA FERROUS SO4 324MG TAB,EC Discontinued TAKE ONE TABLET BY MOUTH TWO TIMES A DAY FOR IRON SUPPLEMENTATION. MAY TAKE WITH FOOD IF NOT TOLERATED ON EMPTY STOMACH 200 May 02, 2019 [id number] Nov 14, 2018 BRITTANEY VILLEDA C FOLIC ACID 1MG TAB Active TAKE ONE TABLET BY MOUTH ONCE A DAY 90 Nov 22, 2019 [id number] Mar 18, 2019 BRITTANEY VILLEDA FOLIC ACID 1MG TAB Discontinued TAKE ONE TABLET BY MOUTH ONCE A DAY 90 May 02, 2019 [id number] Sep 26, 2018 BRITTANEY VILLEDA GABAPENTIN 300MG CAP Discontinued TAKE 2 CAPSULES BY MOUTH FOUR TITO ES A DAY 720 Jan 27, 2019 [id number] Nov 14, 2018 BRITTANEY VILLEDA GABAPENTIN 400MG CAP Active TAKE 1 CAPSULE BY MOUTH THREE TITO ES A DAY 270 Dec 07, 2019 [id number] Mar 18, 2019 BRITTANEY VILLEDA HYDROCODONE 10MG/ACETAMINOPHEN 325MG TAB Non-VA TAKE ONE TABLET BY MOUTH FOUR TIMES A DAY Non-VA Documented by: RAMY TRENT nted at: STEFANI SPAIN LISINOPRIL 10MG TAB Discontinued TAKE ONE-HALF TABLET BY MOUTH EVERY MORNING FOR HEART OR HIGH BLOOD PRESSURE 15 Jun 01, 2019 [id number] Jun 02, 2018 BRITTANEY VILLEDA LOSARTAN 25MG TAB Active TAKE ONE TABLET BY MOUTH ONCE A DAY FOR BLOOD PRESSURE 90 Jan 09, 2020 [id number] Apr 23, 2019 BRITTANEY VILLEDA C LOSARTAN 25MG TAB Discontinued TAKE ONE TABLET BY M OUTH ONCE A DAY FOR BLOOD PRESSURE 90 July 13, 2019 [id number] Nov 14, 2018 TIERRA KWONG [facility] MELOXICAM 15MG TAB TAKE ONE TABLET BY M OUTH ONCE A DAY FOR PAIN OR INFLAMMATION. 90 Jun 01, 2019 [id number] Mar 18, 2019 BRITTANEY VILLEDA METOPROLOL TARTRATE 25MG TAB Active TAKE ONE-SMITH LF TABLET BY MOUTH TWO TIMES A DAY FOR HEART/BLOOD PRESSURE. TAKE WITH OR IMMEDIATELY FOLLOWING FOOD. 90 Jan 09, 2020 [id number] Apr 23, 2019 BRITTANEY VILLEDA METOPROLOL TARTRATE 25MG TAB Discontinued TAKE ONE-SMITH LF TABLET BY MOUTH TWO TIMES A DAY FOR HEART/BLOOD PRESSURE. TAKE WITH OR IMMEDIATELY FOLLOWING FOOD. 90 July 13, 2019 [id number] Nov 14, 2018 TIERRA KWONG ROSA BROWN [facility] SIMVASTATIN 40MG TAB Active TAKE ONE-HALF TABLE T BY MOUTH AT BEDTIME FOR CHOLESTEROL - REPORT ANY UNEXPLAINED MUSCLE PAIN OR WEAKNESS TO YOUR PROVIDER 45 Sep 27, 2019 [id number] Jun 24, 2019 BRITTANEY VILLEDA CBO C SIMVASTATIN 40MG TAB Discontinued TAKE ONE-HALF TABLE T BY MOUTH AT BEDTIME FOR CHOLESTEROL - REPORT ANY UNEXPLAINED MUSCLE PAIN OR WEAKNESS TO YOUR PROVIDER 45 Sep 23, 2018 [id number] Jul 05, 2018 BRITTANEY VILLEDA CBO C TAMSULOSIN HCL 0.4MG CAP Discontinued TAKE ONE CAPSUL E BY MOUTH ONCE A DAY FOR PROSTATE. TAKE AT THE SAME TIME EACH DAY WITH FOOD. 90 Jun 17 9 [id number] Jun 14, 2018 BRITTANEY VILLEDA TAMSULOSIN HCL 0.4MG CAP TAKE ONE CAPSUL E BY MOUTH ONCE A DAY FOR PROSTATE. TAKE AT THE SAME TIME EACH DAY WITH FOOD. 90 August 01 0 [id number] Jun 24, 2019 BRITTANEY VILLEDA TIOTROPIUM 2.5MCG/ACTUAT INHL,ORAL,60D,4GM Active INHALE 2 PUFFS BY ORAL INHALATION ONCE A DAY FOR BREATHING. DON'T USE WITH IPRATROPIUM - REPLACES ADVAIR. 3 Jun 24, 2020 [id number] Jun 24, 2019 BRITTANEY VILLEDA TIOTROPIUM 2.5MCG/ACTUAT INHL,ORAL,60D,4GM Discontinued INHALE 2 PUFFS BY ORAL INHALATION ONCE A DAY FOR BREATHING. DON'T USE WITH IPRATROPIUM - REPLACES ADVAIR. 3 Oct 13, 2019 [id number] Mar 18, 2019 BRITTANEY VILLEDA [facility] Problems (Conditions): All historical and current Section Date Range: From patient's date of to the date document was create d. This section includes a list of Problems (Conditions) know n to AL for the patient. It includes both active and inacti ve problems (conditions). The data comes from all [place] treatment facilities. Problem Status Problem Code Date of Onset Date of Resolution Comm ent(s) Provider Source Actinic keratosis (SNOMED CT 222745937) Active 702.0 BRITTANEY VILLEDA [facility] Alcohol Dependence * (ICD-9-CM 303.90/303.91) Active 303.90 ALEXANDRA KWONG [facility] Anemia Active 285.9 [facility] ANGINA PECTORIS NEC/NOS 413.9 Active 413.9 W ALEXANDRA DE JESUS [facility] Anxiety Disorder Active 300.00 AURELIANO LINCOLN MD [facility] Benign Neoplasm Skin Head, Neck, Scalp Active 216.4 RENALDO DACOSTA [facility] CABG Active 799.9 Oct 05, 2006 E ntered By: SATHISH SCOTT Comment: feb, 4-vessel SATHISH SCOTT [facility] Chest discomfort (SNOMED CT 098936174) Active 786.59 BRITTANEY VILLEDA [facility] Chronic airway obstruction, Not Elsewhere Classified Active 496. AURELIANO LINCOLN MD [facility] Chronic Low Back Pain Active 724.2 AURELIANO LINCOLN MD [facility] COPD * (ICD-9-CM 496.) Active 496. Robin [facility] Coronary Artery Disease * (ICD-9-CM 414.9) Active 414.9 ALEXANDRA KWONG [facility] Coronary Atherosclerosis of [place] Coronary Vessel Active 414.01 August 03, 2010 Entered By: AURELIANO LINCOLN MD Comment: Bypass surgery AURELIANO LINCOLN MD [facility] Disorder of shoulder (SNOMED CT 252539418) Active 719.91 [facility] Essential Hypertension Active 401.9 AURELIANO LINCOLN MD [facility] Hyperlipidemia Active 272.[address] 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 AURELIANO LIU MD [facility] Marijuana Dependence unspecified Active 304.30 AURELIANO LINCOLN MD [facility] Microscopic Hematuria (ICD-9-CM 599.72) Active 599.72 BEVERLY SALINAS [facility] Other and unspecified hyperlipidemia Active 272.4 AURELIANO LINCOLN MD [facility] Other, mixed, or unspecified drug abuse, continuous use Active 30 5.91 Jan 30, 2009 Entered By: SATHISH SCOTT Comment: urine drug screen positive for opitates and marijuannaMay 2009 Entered By: SATHISH SCOTT Comment: buying hydrocodone "off the street" SATHISH SCOTT [facility] Pain in joint involving ankle and foot (ICD-9-CM 719.47) Active 719 .47 SATHISH SCOTT [facility] Papular eruption (SNOMED CT 618548484) Active 709.8 BRITTANEY VILLEDA [facility] Personal History of Noncompliance with M edical Treatment, Presenting Hazards to Active V15.81 SATHISH SCOTT [facility] Tobacco dependence syndrome (SNOMED CT 79346279) Active [id number] July 24, 2009 Entered By: SATHISH SCOTT Comment: one ppd YUMI AVILA [facility] Transient Ischemic Attack * (ICD-9-CM 435.9) Active 435.9 SATHISH SCOTT [facility] ANIETY STAT NOS 300.00 Inactive 300.00 Jan 05, 2005 ALEXANDRA FLOREZ [facility] Bronchitis * (ICD-9-CM 490.) Inactive 490. Jan 05, 2005 BRITTANEY VILLEDA [facility] Postsurgical Aortocoronary Bypass Status (ICD-9-CM V45.81) Inactive V45.81 Oct 05, 2006 SATHISH SCOTT [facility] Radiology Reports: +/- 30 days of the encounter No Data Provided for This Section Pathology Reports: +/- 30 days of the encounter No Data Provided for This Section Encounter Notes: All associated encounter notes This section contains the clinical notes associated to the Encounter. Date/Time Encounter Note(s) Provider Source Jan 28, 2019 12:00 AM NONVA NOTE: LOCAL TITLE: CT-NON-VA CARE (IDP) STANDARD TITLE: NONVA NOTE DATE OF NOTE: JAN 28, 2019 ENTRY DATE: FEB 27, 2019@14:05:06 AUTHOR: LEILANI MENDEZ EXP COSIGNER: URGENCY: STATUS: COMPLETED VistA Imaging - Scanned Document /es/ LEILANI MENDEZ [employer] TRAVEL COUNSELOR Signed: 02/27/2019 14:[address] [facility]
--- OUTSIDE RECORDS SUMMARY | 2019-08-16 03:56 | XMS REPORT | Encounter Summary ---
Author Author Department [facility] JUAN MANUEL posey Organization Department of [facility] Address [address] [place] [phone] Phone Unavailable Care Team Providers Care Dental Technician Name Role Phone BRITTANEY VILLEDA PCP Unavailable [...] PART B Apr 13, 2007 PART B [id number] [id number] JUAN MANUEL MARTIN PATIENT MEDICARE (WNR) MEDICARE (M) PART B Apr 13, 2007 PART B [id number] JUAN MANUEL MARTIN PATIENT MEDICARE (WNR) MEDICARE (M) PART A Sep 10, 2005 PART A [id number] JUAN MANUEL MARTIN PATIENT MEDICARE (WNR) MEDICARE (M) PART A Sep 10, 2005 PART A [id number] [phone] JUAN MANUEL MARTIN PATIENT MEDICARE (WNR) MEDICARE (M) PART A Sep 10, 2005 PART A [id number] MARTINJUAN MANUEL PATIENT Selected Encounter This section includes the information on record at [place] for the Encounter. Date/Time Encounter Type Encounter Description Reason Provider Source Jan 08, 2019 09:00 AM OFFICE/OUTPATIENT VISIT EST PRIMARY CARE/M EDICINE ICD-10-CM I10. Essential (primary) hypertension with Provider Comments: Essential (Primary) Hypertension RAMY TRENT [facility] IHE Encounter Template Text not used by VA Assessments - Encounter Diagnoses This section includes the primary and secondary diag noses documented for the Encounter. Date/Time Primary/Secondary Diagnosis Diagnosis Name Provider Source Jan 17, 2019 12:35 PM PRIMARY Essential (primary) hypertension [facility] Jan 17, 2019 12:35 PM SECONDARY Anemia, unspecified [facility]ATEO [facility] Jan 17, 2019 12:35 PM SECONDARY Encounter for immunization GRIFFIN ANDREW [facility] Plan of Treatment: Future Appointments (+ 6 months) and Future Tests (+/- 45 day s) The Plan of Treatment section includes future care activities for the patient fr om all [place] treatment facilities. This section includes future appointments and fu ture orders which are active, pending or scheduled. Future Appointments This section includes appointments that were scheduled t o occur 6 months from the date of the Encounter, up to a maximum of 20 appointme nts. The data comes from all [place] treatment facilities. Appointment Date/Time Appointment Type Appointment Facili ty Name Jan 23, 2019 09:15 AM AMBULATORY - NONE [facility] Surgical Procedures: All associated to the encounter [...] pg/mL [id number] Jan 23, 2019 09:15 AM [facility] [employer] FOLATE Specimen Type: SERUM No comment entered. FOLATE 18.5 ng/mL 7.0-20.0 Jan 15, 2019 09:32 AM [facility] [employer] OCCULT BLOOD FIT X1 SCREEN Specimen Type: FECES No comment entered. OCCULT BLOOD (FIT) #1 OF 1 POSITIVE HH Neg ative Jan 08, 2019 08:20 AM [facility] CBC & DIFF Specimen Type: BLOOD No [...] 0.7 % Jan 08, 2019 08:20 AM [employer] [facility] COMPREHENSIVE METABOLIC PA SUNI Specimen Type: [...] EGFR >60 Jan 08, 2019 08:20 AM [facility] LIPID PROFILE(HDL,TRIG,CHO L,LDL) Specimen Type: PLASMA Comment: [...] Signs: All taken on the encounter date This section contains inpatient and outpatient Vital Signs collected on the date of the Encounter. Date/Time Temperature Pulse Blood Pressure Respiratory Rate SP02 Pa in Height Weight Body Mass Index Source Jan 08, 2019 08:55 AM 0 [facility] Jan 08, 2019 08:36 AM 188/94 mm[Hg] [facility] Jan 08, 2019 08:30 AM 3 [facility] Jan 08, 2019 08:26 AM 98 F 58 /min 195/104 mm[Hg] 18 /min 98 % 181.5 lb 25 [facility] Immunizations: All administered on the encounter date This section contains immunizations associated to the Encounter. Immunization Series Date Issued Reaction Comments INFLUENZA, TRIVALENT, ADJUVANTED Jan 08, 2019 Social History: Smoking Status (Most current) and Tobacco Use (All prior to enco unter date) This section includes the most current, and the historical, smoking and tobacco- related health factors from the [place] facility where the Encounter took place. Current Smoking Status This section includes the most current smoking, or tobacco -related health factor, from the [place] facility where the Encounter took place. Date/Time Current Smoking Status Comment [facility] Jan 02, 2019 08:20 AM NON-TOBACCO USER [facility] Tobacco Use History This section includes a history of the smoking, or tobacco -related health factors, that were collected on or before the date of the Encoun ter. The data comes from the [place] facility where the Encounter took place. Date/Time Smoking Status/Tobacco Use Comment [facility] May 28, 2018 11:45 AM VA-TOBACCO FORMER USER [facility] May 28, 2018 11:45 AM VA-TOBACCO QUIT 15 YRS OR MORE [facility] Dec 25, 2017 02:23 PM NON-TOBACCO USER [facility] Jan 25, 2017 09:53 AM NON-TOBACCO USER [facility] Dec 22, 2015 09:45 AM NON-TOBACCO USER [facility] Advance Directives: All historical and current Section [...] docume nt. The data comes from all [place] facilities. Date Advance Directives Provider Source Jan 02, 2018 ADVANCE DIRECTIVE DISCUSSION FLO [facility] Oct 17, 2000 ADVANCE DIRECTIVE EUNICE RODRIGUEZ [facility], VISN 15 Allergies and Adverse Reactions (ADRs): All historical and current Section Date Range: From patient's date of to the date document was create d. This section includes Allergies and Adverse Reactions (ADR s) on record with VA for the patient. The data comes from a ll [place] treatment facilities. It does not list Allergies/ADRs that were removed or entered in error. Some allergies/ADRs may be reported in t he Immunization section. Allergen Event Date Event Type Reaction(s) Severity Source No Known Allergies [facility] No Allergy Assessment on File [facility] Medications: VA dispensed (-15 months) and Non-VA Documented (Obtained Outside V A) Section Date Range: 1) prescriptions processed by a [place] pharmacy in the last 15 m ont, and 2) all medications recorded in the [place] medical record as "non-VA medic ations". Pharmacy terms refer to [place] pharmacy's work on prescriptions. VA patient s are advised to take their medications as instructed by their health care team. The data comes from all [place] treatment facilities. Glossary of Pharmacy Terms:Active = A prescription that can be filled at the local [place] pharmacy.Active: On Hold = An active prescription that will not be filled until pharmacy resolves the issue.Active: Susp = An active prescription that is not scheduled to be filled yet.Clinic Order = A medication received during a visit to a [place] clinic or emergency department (currently not available).Discontinued [...] may be a prescription from either the [place] or other providers that was filled outside the [place]. Or, it may be an over the [...] A DAY NEEDED 180 Jan 09, 2020 [id number] Apr 10, 2019 MAK VILLEDA CBTERRENCE ALBUTEROL SO4 0.083% INHL,3ML Discontinued USE 3 MLS IN NEBULIZER FOR INHALATION TWO TIMES A DAY NEEDED 180 Jan 27, 2019 [id number] Nov 01, 2018 BRITTANEY VILLEDA ALBUTEROL SO4 90MCG/ACTUAT (CFC-F) INHL,ORAL,6.7GM Active INHALE 2 PUFFS BY ORAL INHALATION TWO TIMES A DAY NEEDED - RINSE MOUTHPIECE FREQUENTLY TO PREVENT CLOGGING 2 Aug 30, 2019 [id number] Mar 18, 2019 BRITTANEY VILLEDA ALBUTEROL SO4 90MCG/ACTUAT (CFC-F) INHL,ORAL,6.7GM Discontin ued INHALE 2 PUFFS BY ORAL INHALATION TWO TIMES A DAY NEEDED - RINSE MOUTHPIECE FREQUENTLY TO PREVENT CLOGGING 2 Mar 27, 2019 [id number] Aug 30, 2018 BRITTANEY VILLEDA BUDESONIDE 80MCG/FORMOTEROL FUM 4.5MCG/SPRAY INHL,ORAL,10.2G M Active INHALE 2 PUFFS BY ORAL INHALATION TWO TIMES A DAY FOR BREATHING. SHAKE WELL. RINSE MOUTH AND SPIT AFTER EACH USE. 3 Jun 24, 2020 [id number] Jun 24, 2019 BRITTANEY VILLEDA BUDESONIDE 80MCG/FORMOTEROL FUM 4.5MCG/SPRAY INHL,ORAL,10.2G M Discontinued INHALE 2 PUFFS BY ORAL INHALATION TWO TIMES A DAY FOR BREATHING. SHAKE WELL. RINSE MOUTH AND SPIT AFTER EACH USE. 3 Dec 07, 2019 [id number] Mar 18, 2019 BRITTANEY VILLEDA [facility] FERROUS SO4 324MG TAB,EC Active TAKE ONE TABLET BY MOUTH TWO TIMES A DAY FOR IRON SUPPLEMENTATION. MAY TAKE WITH FOOD IF NOT TOLERATED ON EMPTY STOMACH 200 Jan 09, 2020 [id number] Apr 23, 2019 BRITTANEY VILLEDA [facility] FERROUS SO4 324MG TAB,EC Discontinued TAKE ONE TABLET BY MOUTH TWO TIMES A DAY FOR IRON SUPPLEMENTATION. MAY TAKE WITH FOOD IF NOT TOLERATED ON EMPTY STOMACH 200 May 02, 2019 [id number] Nov 14, 2018 BRITTANEY VILLEDA [facility] FOLIC ACID 1MG TAB Active TAKE ONE TABLET BY MOUTH ONCE A DAY 90 Nov 22, 2019 [id number] Mar 18, 2019 BRITTANEY VILLEDA FOLIC ACID 1MG TAB Discontinued TAKE ONE TABLET BY MOUTH ONCE A DAY 90 May 02, 2019 [id number] Sep 26, 2018 BRITTANEY VILLEDA [facility] GABAPENTIN 300MG CAP Discontinued TAKE 2 CAPSULES BY MOUTH FOUR TITO ES A DAY 720 Jan 27, 2019 [id number] Nov 14, 2018 BRITTANEY VILLEDA [facility] GABAPENTIN 400MG CAP Active TAKE 1 CAPSULE BY MOUTH THREE TITO ES A DAY 270 Dec 07, 2019 [id number] Mar 18, 2019 BRITTANEY VILLEDA [facility] HYDROCODONE 10MG/ACETAMINOPHEN 325MG TAB Non-VA TAKE ONE TABLET BY MOUTH FOUR TIMES A DAY Non-VA Documented by: RAMY TRENT nted at: [facility] LISINOPRIL 10MG TAB Discontinued TAKE ONE-HALF TABLET BY MOUTH EVERY MORNING FOR HEART OR HIGH BLOOD PRESSURE 15 Jun 01, 2019 [id number] Jun 02 9 BRITTANEY VILLEDA [facility] LOSARTAN 25MG TAB Active TAKE ONE TABLET BY MOUTH ONCE A DAY FOR BLOOD PRESSURE 90 Jan 09, 2020 [id number] Apr 23, 2019 BRITTANEY VILLEDA CBO C LOSARTAN 25MG TAB Discontinued TAKE ONE TABLET BY M OUTH ONCE A DAY FOR BLOOD PRESSURE 90 July 13, 2019 [id number] Nov 14, 2018 TIERRA KWONG [facility] MELOXICAM 15MG TAB TAKE ONE TABLET BY M OUTH ONCE A DAY FOR PAIN OR INFLAMMATION. 90 Jun 01, 2019 [id number] Mar 18, 2019 BRITTANEY VILLEDA METOPROLOL TARTRATE 25MG TAB Active TAKE ONE-SMITH LF TABLET BY MOUTH TWO TIMES A DAY FOR HEART/BLOOD PRESSURE. TAKE WITH OR IMMEDIATELY FOLLOWING FOOD. 90 Jan 09, 2020 [id number] Apr 23, 2019 BRITTANEY VILLEDA METOPROLOL TARTRATE 25MG TAB Discontinued TAKE ONE-SMITH LF TABLET BY MOUTH TWO TIMES A DAY FOR HEART/BLOOD PRESSURE. TAKE WITH OR IMMEDIATELY FOLLOWING FOOD. 90 July 13, 2019 [id number] Nov 14, 2018 TIERRA KWONG [facility] SIMVASTATIN 40MG TAB Active TAKE ONE-HALF TABLE T BY MOUTH AT BEDTIME FOR CHOLESTEROL - REPORT ANY UNEXPLAINED MUSCLE PAIN OR WEAKNESS TO YOUR PROVIDER 45 Sep 27, 2019 [id number] Jun 24, 2019 BRITTANEY VILLEDA C[facility] C SIMVASTATIN 40MG TAB Discontinued TAKE ONE-HALF TABLE T BY MOUTH AT BEDTIME FOR CHOLESTEROL - REPORT ANY UNEXPLAINED MUSCLE PAIN OR WEAKNESS TO YOUR PROVIDER 45 Sep 23, 2018 [id number] Jul 05, 2018 BRITTANEY VILLEDA C TAMSULOSIN HCL 0.4MG CAP Discontinued TAKE ONE CAPSUL E BY MOUTH ONCE A DAY FOR PROSTATE. TAKE AT THE SAME TIME EACH DAY WITH FOOD. 90 Jun 17 9 [id number] Jun 14, 2018 BRITTANEY VILLEDA TAMSULOSIN HCL 0.4MG CAP TAKE ONE CAPSUL E BY MOUTH ONCE A DAY FOR PROSTATE. TAKE AT THE SAME TIME EACH DAY WITH FOOD. 90 August 01 0 [id number] Jun 24, 2019 BRITTANEY VILLEDA TIOTROPIUM 2.5MCG/ACTUAT INHL,ORAL,60D,4GM Active INHALE 2 PUFFS BY ORAL INHALATION ONCE A DAY FOR BREATHING. DON'T USE WITH IPRATROPIUM - REPLACES ADVAIR. 3 Jun 24, 2020 [id number] Jun 24, 2019 BRITTANEY VILLEDA TIOTROPIUM 2.5MCG/ACTUAT INHL,ORAL,60D,4GM Discontinued INHALE 2 PUFFS BY ORAL INHALATION ONCE A DAY FOR BREATHING. DON'T USE WITH IPRATROPIUM - REPLACES ADVAIR. 3 Oct 13, 2019 [id number] Mar 18, 2019 RONAL,BRITTANEY B [facility] Problems (Conditions): All historical and current Section Date Range: From patient's date of to the date document was create d. This section includes a list of Problems (Conditions) know n to VA for the patient. It includes both active and inacti ve problems (conditions). The data comes from all [place] treatment facilities. Problem Status Problem Code Date of Onset Date of Resolution Comm ent(s) Provider Source Actinic keratosis (SNOMED CT 277232028) Active 702.0 BRITTANEY VILLEDA [facility] Alcohol Dependence * (ICD-9-CM 303.90/303.91) Active 303.90 ALEXANDRA KWONG [facility] Anemia Active 285.9 SATHISH SCOTT [facility] ANGINA PECTORIS NEC/NOS 413.9 Active 413.9 [facility] Anxiety Disorder Active 300.00 AURELIANO LINCOLN MD [facility] Benign Neoplasm Skin Head, Neck, Scalp Active 216.4 RENALDO DACOSTA [facility] CABG Active 799.9 Oct 05, 2006 E ntered By: SATHISH SCOTT Comment: feb, 4-vessel SATHISH SCOTT [facility] Chest discomfort (SNOMED CT 501756379) Active 786.59 BRITTANEY VILLEDA [facility] Chronic airway obstruction, Not Elsewhere Classified Active 496. AURELIANO LINCOLN MD [facility] Chronic Low Back Pain Active 724.2 AURELIANO LINCOLN MD [facility] COPD * (ICD-9-CM 496.) Active 496. Robin SCOTT [facility] Coronary Artery Disease * (ICD-9-CM 414.9) Active 414.9 ALEXANDRA KWONG [facility] Coronary Atherosclerosis of [place] Coronary Vessel Active 414.01 August 03, 2010 Entered By: AURELIANO LINCOLN MD Comment: Bypass surgery AURELIANO LINCOLN MD [facility] Disorder of shoulder (SNOMED CT 299074093) Active 719.91 [facility]ANEY [facility]ED[facility] Essential Hypertension Active 401.9 AURELIANO LINCOLN MD [facility] Hyperlipidemia Active 272.4 SATHISH SCOTT [facility] HYPERTENSION NOS 401.9 Active 401.9 ALEXANDRA KWONG [facility] Impotence (SNOMED CT 829482581) Active 302.72 BRITTANEY VILLEDA [facility] 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 AURELIANO LIU MD [facility] Marijuana Dependence unspecified Active 304.30 AURELIANO LINCOLN MD [facility] Microscopic Hematuria (ICD-9-CM 599.72) [facility] 599.72 [facility] Other and unspecified hyperlipidemia Active 272.4 AURELIANO LINCOLN MD [facility] Other, mixed, or unspecified drug [...] [facility] Papular eruption (SNOMED CT 643923914) Active 709.8 BRITTANEY VILLEDA [facility] Personal History of Noncompliance with M edical Treatment, Presenting Hazards to Active V15.81 SATHISH SCOTT [facility] Tobacco dependence syndrome (SNOMED CT 89550261) Active [id number] July 24, 2009 Entered By: SATHISH SCOTT [...] Encounter. Date/Time Encounter Note(s) Provider Source Jan 17, 2019 09:35 AM ADMINISTRATIVE NOTE: LOCAL TITLE: WI-ADMINISTRATIVE NOTE (BP,O) STANDARD TITLE: ADMINISTRATIVE NOTE DATE OF NOTE: JAN 17, 2019@09:35 ENTRY DATE: JAN 17, 2019@09:35:47 AUTHOR: BRITTANEY VILLEDA EXP COSIGNER: URGENCY: STATUS: COMPLETED WI-ADMINISTRATIVE NOTE (BP,O) Has ADDENDA reviewed recent lab- FIT is positive, pt. will need a colonoscopy and probable additional lab, will order additional lab for iron studies, cbc is normal, cont. with folic acid and ferrous sulfte as directed chem 19 is normal, please call and inform pt., thank you /nuno/ BRITTANEY OAKLEY Signed: 01/17/2019 09:39 Receipt Acknowledged By: 01/17/2019 12:32 /nuno/ BELLA MURPHY ACE, LPN 01/17/2019 ADDENDUM STATUS: COMPLETED WI-DIAG RESULT (PERSON OR PHONE): LABORATORY Other results were abnormal. Comments: Results were communicated by phone to patient. Patient verbalized understanding. FIT is positive, Vet will need a colonoscopy and probably additional lab, will order additional lab for iron studies, cbc is normal, continue with folic acid and ferrous sulfate as directed. chem 19 is normal, Vet said that he would like non VA colonoscopy but was worried about the $200 up front. Staff suggested he speak with billing about any outside charges. /nuno/ BELLA CHOUDHURY LPN Signed: 01/17/2019 12:35 Receipt Acknowledged By: 01/22/2019 12:28 /nuno/ BRITTANEY OAKLEY 01/26/2019 ADDENDUM STATUS: COMPLETED Diagnostic Colonoscopy reminder will need to be completed reflecting patient choice for nonva colonoscopy noted above. /nuno/ Charisse Watkins Physician [employer] Head Signed: 01/26/2019 19:04 Receipt Acknowledged By: 01/28/2019 14:07 /nuno/ BRITTANEY SCHILLING [facility]- 01/28/2019 14:21 /es/ RAMY LAI STAFF NURSE 01/28/2019 ADDENDUM STATUS: COMPLETED Diagnostic Colonoscopy: (+) FIT/FOBT identified. A diagnostic Colonoscopy is due based on information available to this reminder. A colonoscopy is currently scheduled or in process of being scheduled. /nuno/ RAMY TRENT STAFF NURSE Signed: 01/28/2019 14:20 BRITTANEY VILLEDA [facility] Jan 08, 2019 09:06 AM MEDICATION MGT NOTE: LOCAL TITLE: WI-MEDICATION RECONCILIATION (BP,O) STANDARD TITLE: MEDICATION MGT NOTE DATE OF NOTE: JAN 08, 2019@09:06 ENTRY DATE: JAN 08, 2019@09:06:19 AUTHOR: BRITTANEY VILLEDA EXP COSIGNER: URGENCY: STATUS: COMPLETED MEDICATION RECONCILIATION Allergies: Patient has answered NKA Allergies reviewed, edited in CPRS as appropriate and confirmed by patient: Yes Active Outpatient Medications (including Supplies): Outpatient Medications Status = 1) ALBUTEROL 90MCG (CFC-F) 200D ORAL INHL INHALE 2 PUFFS ACTIVE BY ORAL INHALATION TWO TIMES A DAY NEEDED - RINSE MOUTHPIECE FREQUENTLY TO PREVENT CLOGGING 2) ALBUTEROL SO4 0.083% INHL 3ML USE 3 MLS IN NEBULIZER ACTIVE FOR INHALATION TWO TIMES A DAY NEEDED 3) BUDESONIDE 80/FORMOTER 4.5MCG 120D INH INHALE 2 PUFFS ACTIVE BY ORAL INHALATION TWO TIMES A DAY FOR BREATHING. SHAKE WELL. RINSE MOUTH AND SPIT AFTER EACH USE. 4) FERROUS SULFATE 324MG EC TAB TAKE ONE TABLET BY MOUTH ACTIVE TWO TIMES A DAY FOR IRON SUPPLEMENTATION. MAY TAKE WITH FOOD IF NOT TOLERATED ON EMPTY STOMACH 5) FOLIC ACID 1MG TAB TAKE ONE TABLET BY MOUTH ONCE A ACTIVE DAY 6) GABAPENTIN 400MG CAP TAKE ONE CAPSULE BY MOUTH THREE ACTIVE TIMES A DAY 7) LISINOPRIL 10MG TAB TAKE ONE-HALF TABLET BY MOUTH ACTIVE EVERY MORNING FOR HEART OR HIGH BLOOD PRESSURE 8) LOSARTAN 25MG TAB TAKE ONE TABLET BY MOUTH ONCE A DAY ACTIVE FOR BLOOD PRESSURE 9) MELOXICAM 15MG TAB TAKE ONE TABLET BY MOUTH ONCE A ACTIVE DAY FOR PAIN OR INFLAMMATION. 10) METOPROLOL TARTRATE 25MG TAB TAKE ONE-HALF TABLET BY ACTIVE MOUTH TWO TIMES A DAY FOR HEART/BLOOD PRESSURE. TAKE WITH OR IMMEDIATELY FOLLOWING FOOD. 11) SIMVASTATIN 40MG TAB TAKE ONE-HALF TABLET BY MOUTH AT ACTIVE BEDTIME FOR CHOLESTEROL - REPORT ANY UNEXPLAINED MUSCLE PAIN OR WEAKNESS TO YOUR PROVIDER 12) TAMSULOSIN HCL 0.4MG CAP TAKE ONE CAPSULE BY MOUTH ACTIVE ONCE A DAY FOR PROSTATE. TAKE AT THE SAME TIME EACH DAY WITH FOOD. 13) TIOTROPIUM 2.5MCG/ACTUAT 60D ORAL INHL INHALE 2 PUFFS ACTIVE BY ORAL INHALATION ONCE A DAY FOR BREATHING. DON'T USE WITH IPRATROPIUM - REPLACES ADVAIR. Non-VA Medications Status = 1) Non-VA HYDROCODONE 10/ACETAMINOPHEN 325MG TAB 1 ACTIVE TABLET MOUTH FOUR TIMES A DAY 14 Total Medications Compared newly ordered medications and medication changes to active medications and non-VA medications, and then reviewed medications with patient and/or caregiver. All discrepancies noted and reconciled. Patients, or caregivers, was provided with reconciled medications list and advised to provide to all non VA providers. Potential adverse reactions of new medications were discussed with the patient. Patient/family/caregiver educated and evaluated for understanding on Medications. The list was reviewed with and given to the patient/family/caregiver who were also educated on importance of sharing medication list with all VA providers and non-VA providers. For questions, please call your team nurse. Pertinent lab reviewed: Yes. Level of Understanding: Good Comments: /nuno/ BRITTANEY GRACEP-BC Signed: 01/08/2019 09:06 BRITTANEY VILLEDA [facility] Jan 08, 2019 08:44 AM PRIMARY CARE PHYSICIAN OUTPA RANJAN NOTE: LOCAL TITLE: WI-GENERAL/PRIMARY CARE STANDARD TITLE: PRIMARY CARE PHYSICIAN OUTPATIENT NOTE DATE OF NOTE: JAN 08, 2019@08:44 ENTRY DATE: JAN 08, 2019@08:44:53 AUTHOR: BRITTANEY VILLEDA EXP COSIGNER: URGENCY: STATUS: COMPLETED WI-GENERAL/PRIMARY CARE Has ADDENDA WI-P: HTN BP > 139/89: the above measurement was obtained manually The patient is being evaluated for resistant or secondary causes for hypertension. WI-PAIN: Pain Reassessment-Patient's updated pain score after intervention is: PAIN Score 0 Pain Documentation: Pain level 3 or less. Avg Risk Colorectal Cancer Screen: AVERAGE RISK colorectal cancer screening is due based on information available to this clinical reminder FOBT/FIT (Fecal Immunochemical Testing) has been ordered. See order tab for details. Depression Screening: The patient declines to answer any of the questions for depression screening. s. pt. [facility] cont[facility] medical care, he voices no c/o, BP sl. elevated today in clinic, pt. states his BP is normal when he takes it at home and he is taking BP meds. as directed, vs stable, BP sl. elevated today in clinic, hx. change with sl. elevated BP, pt. denies any symptoms, fasting lab today, to review and update meds. o. affect=pleasant skin=w/d, afebrile general appearance is good, no acute distress no edema noted lower ext. bilat. neuro grossly intact assessment/plan: htn, cont. with losartan and toprol as directed anemia, cont. with folic acid and ferrous sulfate as directed fasting lab today, meds. reviwed, updated rtc 12 months for annual exam and fasting lab /nuno/ BRITTANEY VILLEDA [facility] Signed: 01/08/2019 09:06 01/28/2019 ADDENDUM STATUS: COMPLETED Diagnostic Colonoscopy: (+) FIT/FOBT identified. A diagnostic Colonoscopy is due based on information available to this reminder. Colonoscopy consult has been ordered. See orders tab for details. /nuno/ BRITTANEY VILLEDA [facility] Signed: 01/28/2019 14:08 BRITTANEY VILLEDA [facility] Jan 08, 2019 08:28 AM NURSING OUTPATIENT NOTE: LOCAL TITLE: [place]-NURSE/[facility] STANDARD TITLE: NURSING OUTPATIENT NOTE DATE OF NOTE: JAN 08, 2019@08:28 ENTRY DATE: JAN 08, 2019@08:28:51 AUTHOR: RAMY TRENT COSIGNER: URGENCY: STATUS: COMPLETED WI-NURSE/[facility] Has ADDENDA Reason for appointment: PCP Appointment Reason for appointment: Other: annual Is the patient diabetic? No - patient is not a diabetic What is your goal for today's visit? *Required Is there anything in your life that worries or stresses you that we may assist you with today? *Required No Are you registered for [employer] ([place])? No - Are you interested in registering? No If 'yes' please hand [place] [employer] brochure. WI-LATEX REVIEW: Latex review for allergy: ...Patient denies latex allergy. WI-TOBACCO SCREENING/COUNSELING: Tobacco Screening/Counseling: Prior screening history- --STATUS-- --DUE DATE-- --LAST DONE-- P:Tobacco Cessation Intervention DUE NOW DUE NOW unknown Frequency: Due every 1 year for all ages. Patient states he/she is a non-user of tobacco products for the last 30 days and advised to continue with abstinence. Tobacco Cessation Consult Offered:*(Required) Patient has not used tobacco products in the last 12 months. WI-DIAG RESULT (PERSON OR PHONE): Results will be mailed or phoned to patient when available. WI-LEARNING ASSESSMENT: Patient Learning Assessment Learning Needs Assessment ...Patient Readiness to Learn (Check if individual ready to learn): ...Patient is ready to learn. Will Patient Have Difficulty Understanding Information: ...No Educational Needs: Do you need further information with: Safe & effective use of medications? ...No Safe & effective use of equipment? (Home O2, prosthetics, Rehab Medicine) ...No Potential food/drug interaction? ...No Modified diet? (If referral -- to Dietitian) ...No Rehabilitation techniques or help with independent function? (If referral -- to Rehab Medicine) ...No Patient taught on rehabilitation techniques today. Community resources (If referral -- to [facility] ...No When/how to obtain further treatment? ...No Patient responsibilities in the treatment process? (Booklet) ...No Hygiene? (If taught - Handout/PHE given that includes grooming, bathing, oral health, hair and nail care and use of toilet.) ...No Information about disease process? (If taught - appropriate handout given) ...No Advanced directives? (Booklet) ...No WI-PAIN: Pain Reassessment-Patient's updated pain score after intervention is: PAIN Score 3 Pain Documentation: Pain level 3 or less. WI-FALL RISK OP: BLANCAS FALL SCALE The Blancas Fall scale was performed and score was 0. This is indicative of low risk of falls. History of falling in past 3 months? No Secondary diagnosis: No Ambulatory aid: None/bedrest/nurse assist Intravenous therapy/Heparin lock: No Gait/Transferring: Normal/bed rest/immobile Mental Status: Oriented to own ability/knows own limitations OTHER RISK FACTORS No history of falls and no secondary diagnosis. Patient risk for falling: Low Risk pamphlet given to patient/family Is patient at risk for falling? Patient is NOT at risk for falling Is the patient 75 years of age or older? No Depression Screening: PHQ-2+I9 Depression Screening Score: 0 The score on this administration is 0, which indicates a negative screen on the Depression Scale over the past two weeks. Suicide Screening Score: 0 The results of this administration indicates a NEGATIVE primary screen for Risk of Suicide over the last 2 weeks. Over the past two weeks, how often have you been bothered by the following problems? 1. Little interest or pleasure in doing things Not at all 2. Feeling down, depressed, or hopeless Not at all 3. Thoughts that you would be better off or of hurting yourself in some way Not at all PTSD Screening: PC-PTSD-5+I9 PTSD Screening Score: 0 The score for this administration is 0, which indicates a NEGATIVE screen for PTSD in the past month. Suicide Screening Score: 0 The results of this administration revealed no suicidal ideation over the last 2 weeks, which indicates a NEGATIVE primary screen for Risk of Suicide. Questions 1-5 reference a time frame of the past month Sometimes things happen to people that are unusually or especially frightening, horrible or traumatic. Have you ever experienced this kind of event? YES 1. Had nightmares about the event(s) or thought about the event(s) when you did not want to? NO 2. Tried hard not to think about the event(s) or went out of your way to avoid situations that reminded you of the event(s)? NO 3. Been constantly on guard, watchful, or easily startled? NO 4. [place] numb or detached from people, activities, or your surroundings? NO 5. [place] guilty or unable to stop blaming yourself or others for the event(s) or any problems the event(s) may have caused? NO 6. Over the last 2 weeks, how often have you been bothered by thoughts that you would be better off or of hurting yourself in some way? Not at All Alcohol Use Screen (AUDIT-C): Alcohol Screen: SCREEN FOR ALCOHOL (AUDIT-C) An alcohol screening test (AUDIT-C) was negative (score=0). 1. How often did you have a drink containing alcohol in the past year? Never 2. How many drinks containing alcohol did you have on a typical day when you were drinking in the past year? Response not required due to responses to other questions. 3. How often did you have six or more drinks on one occasion in the past year? Response not required due to responses to other questions. VISN 15-INFLUENZA IMMUNIZATION : [id number] INFLUENZA IMMUNIZATION V1.0 Fluad (Adjuvanted) >/= 65 yrs Influenza Vaccine given Patient given Influenza Vaccination 0.5 cc I.M. during this visit. 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: [address]-20 Left Deltoid Patient tolerated injection well during this visit with no adverse effects. [facility] Vaccination Information Sheet (VIS) dated October 25, 2018 was given to patient. The patient's verbal consent was obtained prior to vaccination. The patient denies having a fever or is afebrile. The patient denies allergy to flu vaccine, Thimerosal, Neomycin, Polymyxin, eggs or any other component of Flu vaccine. The patient denies history of Guillain [place] Syndrome The patient denies moderate/severe illness. /nuno/ RAMY CHRISTIANSONVero STAFF NURSE Signed: 01/08/2019 08:34 01/08/2019 ADDENDUM STATUS: COMPLETED Avg Risk Colorectal Cancer Screen: AVERAGE RISK colorectal cancer screening is due based on information available to this clinical reminder FOBT/FIT (Fecal Immunochemical Testing) has been ordered. See order tab for details. /nuno/ RAMY TRENT STAFF NURSE Signed: 01/08/2019 08:35 RAMY TRENT CBOC
--- OUTSIDE RECORDS SUMMARY | 2019-08-16 03:56 | XMS REPORT | Encounter Summary ---
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 Name Role Phone BRITTANEY VILLEDA PCP Unavailable [...] PART B Apr 13, 2007 PART B [id number] [phone] MARTIN,GARY PATIENT MEDICARE (WNR) MEDICARE (M) PART B Apr 13, 2007 PART B [id number] JUAN MANUEL MARTIN PATIENT MEDICARE (WNR) MEDICARE (M) PART A Sep 10, 2005 PART A [id number] MARTINJUAN MANUEL PATIENT MEDICARE (WNR) MEDICARE (M) PART A Sep 10, 2005 PART A [id number] [phone] JUAN MANUEL MARTIN PATIENT MEDICARE (WNR) MEDICARE (M) PART A Sep 10, 2005 PART A [id number] JUAN MANUEL MARTIN PATIENT Selected Encounter This section includes the information on record at OR for the Encounter. Date/Time Encounter Type Encounter Description Reason Provider Source Jan 25, 2019 08:12 AM Outpatient Encounter COMMUNITY CARE CONSULT [facility], [facility] 15 IHE Encounter Template Text not [...] % Jan 08, 2019 08:20 AM KO [facility] COMPREHENSIVE METABOLIC PA SUNI Specimen Type: [...] >60 Jan 08, 2019 08:20 AM KO [facility] LIPID PROFILE(HDL,TRIG,CHO L,LDL) Specimen Type: PLASMA [...] docume nt. The data comes from all OR facilities. Date Advance Directives Provider Source Jan 02, 2018 ADVANCE DIRECTIVE DISCUSSION FLO KRUEGER [facility] Oct 17, 2000 ADVANCE DIRECTIVE EUNICE RODRIGUEZ [facility], V[facility] 15 Allergies and Adverse Reactions (ADRs): All historical and current Section Date Range: From patient's date of to the date document was create d. This section includes Allergies and Adverse Reactions (ADR s) on record with VA for the patient. The data comes from a ll OR treatment facilities. It does not list Allergies/ADRs that were removed or entered in error. Some allergies/ADRs may be reported in t he Immunization section. Allergen Event Date Event Type Reaction(s) Severity Source No Known Allergies [facility] No Allergy Assessment on File JEOVANNY MORGAN Medications: VA dispensed (-15 months) and Non-VA Documented (Obtained Outside [facility]) Section Date Range: 1) prescriptions processed by a VA pharmacy in the last 15 m [facility], and 2) all medications recorded in the OR medical record as "non-VA medic ations". Pharmacy terms refer to VA pharmacy's work on prescriptions. VA patient s are advised to take their medications as instructed by their health care team. The data comes from all [place] treatment facilities. Glossary of Pharmacy Terms:Active = A prescription that can be filled at the local [place] pharmacy.Active: On Hold = An active prescription that will not be filled until pharmacy resolves the issue.Active: Susp = An active prescription that is not scheduled to be filled yet.Clinic Order = A medication received during a visit to a OR clinic or emergency department (currently not available).Discontinued [...] A DAY NEEDED 180 Jan 09, 2020 [id number] Apr 10, 2019 MAK VILLEDA CBTERRENCE ALBUTEROL SO4 0.083% INHL,3ML Discontinued USE 3 MLS IN NEBULIZER FOR INHALATION TWO TIMES A DAY NEEDED 180 Jan 27, 2019 [id number] Nov 01, 2018 BRITTANEY VENEGAS ALBUTEROL SO4 90MCG/ACTUAT (CFC-F) INHL,ORAL,6.7GM Active INHALE 2 PUFFS BY ORAL INHALATION TWO TIMES A DAY NEEDED - RINSE MOUTHPIECE FREQUENTLY TO PREVENT CLOGGING 2 Aug 30, 2019 [id number] Mar 18, 2019 BRITTANEY VILLEDA ALBUTEROL SO4 90MCG/ACTUAT (CFC-F) INHL,ORAL,6.7GM Discontin ued INHALE 2 PUFFS BY ORAL INHALATION TWO TIMES A DAY NEEDED - RINSE MOUTHPIECE FREQUENTLY TO PREVENT CLOGGING 2 Mar 27, 2019 [id number] Aug 30, 2018 BRITTANEY VILLEDA BUDESONIDE 80MCG/FORMOTEROL FUM 4.5MCG/SPRAY INHL,ORAL,10.2G M Active INHALE 2 PUFFS BY ORAL INHALATION TWO TIMES A DAY FOR BREATHING. SHAKE WELL. RINSE MOUTH AND SPIT AFTER EACH USE. 3 Jun 24, 2020 [id number] Jun 24, 2019 BRITTANEY VILLEDA BUDESONIDE 80MCG/FORMOTEROL FUM 4.5MCG/SPRAY INHL,ORAL,10.2G M Discontinued INHALE 2 PUFFS BY ORAL INHALATION TWO TIMES A DAY FOR BREATHING. SHAKE WELL. RINSE MOUTH AND SPIT AFTER EACH USE. 3 Dec 07, 2019 [id number] Mar 18, 2019 BRITTANEY VILLEDA FERROUS SO4 324MG TAB,EC Active TAKE ONE TABLET BY MOUTH TWO TIMES A DAY FOR IRON SUPPLEMENTATION. MAY TAKE WITH FOOD IF NOT TOLERATED ON EMPTY STOMACH 200 Jan 09, 2020 [id number] Apr 23, 2019 BRITTANEY VILLEDA FERROUS SO4 324MG TAB,EC Discontinued TAKE ONE TABLET BY MOUTH TWO TIMES A DAY FOR IRON SUPPLEMENTATION. MAY TAKE WITH FOOD IF NOT TOLERATED ON EMPTY STOMACH 200 May 02, 2019 [id number] Nov 14, 2018 BRITTANEY VILLEDA C FOLIC ACID 1MG TAB Active TAKE ONE TABLET BY MOUTH ONCE A DAY 90 Nov 22, 2019 [id number] Mar 18, 2019 BRITTANEY VILLEDA FOLIC ACID 1MG TAB Discontinued TAKE ONE TABLET BY MOUTH ONCE A DAY 90 May 02, 2019 [id number] Sep 26, 2018 BRITTANEY VILLEDA GABAPENTIN 300MG CAP Discontinued TAKE 2 CAPSULES BY MOUTH FOUR TITO ES A DAY 720 Jan 27, 2019 [id number] Nov 14, 2018 BRITTANEY VILLEDA GABAPENTIN 400MG CAP Active TAKE 1 CAPSULE BY MOUTH THREE TITO ES A DAY 270 Dec 07, 2019 [id number] Mar 18, 2019 BRITTANEY VILLEDA HYDROCODONE 10MG/ACETAMINOPHEN 325MG TAB Non-VA TAKE ONE TABLET BY MOUTH FOUR TIMES A DAY Non-VA Documented by: RAMY TRENT nted at: STEFANI SPAIN LISINOPRIL 10MG TAB Discontinued TAKE ONE-HALF TABLET BY MOUTH EVERY MORNING FOR HEART OR HIGH BLOOD PRESSURE 15 Jun 01, 2019 [id number] Jun 02, 2018 BRITTANEY VILLEDA [facility] [place]AN 25MG TAB Active TAKE ONE TABLET BY MOUTH ONCE A DAY FOR BLOOD PRESSURE 90 Jan 09, 2020 [id number] Apr 23, 2019 BRITTANEY VILLEDA C LOSARTAN 25MG TAB Discontinued TAKE ONE TABLET BY M OUTH ONCE A DAY FOR BLOOD PRESSURE 90 July 13, 2019 [id number] Nov 14, 2018 TIERRA KWONG [facility] MELOXICAM 15MG TAB TAKE ONE TABLET BY M OUTH ONCE A DAY FOR PAIN OR INFLAMMATION. 90 Jun 01, 2019 [id number] Mar 18, 2019 BRITTANEY VILLEDA METOPROLOL TARTRATE 25MG TAB Active TAKE ONE-SMITH LF TABLET BY MOUTH TWO TIMES A DAY FOR HEART/BLOOD PRESSURE. TAKE WITH OR IMMEDIATELY FOLLOWING FOOD. 90 Jan 09, 2020 [id number] Apr 23, 2019 BRITTANEY VILLEDA METOPROLOL TARTRATE 25MG TAB Discontinued TAKE ONE-SMITH LF TABLET BY MOUTH TWO TIMES A DAY FOR HEART/BLOOD PRESSURE. TAKE WITH OR IMMEDIATELY FOLLOWING FOOD. 90 July 13, 2019 [id number] Nov 14, 2018 TIERRA KWONG Enrrique BROWN [facility] SIMVASTATIN 40MG TAB Active TAKE ONE-HALF TABLE T BY MOUTH AT BEDTIME FOR CHOLESTEROL - REPORT ANY UNEXPLAINED MUSCLE PAIN OR WEAKNESS TO YOUR PROVIDER 45 Sep 27, 2019 [id number] Jun 24, 2019 BRITTANEY VILLEDA CBO C SIMVASTATIN 40MG TAB Discontinued TAKE ONE-HALF TABLE T BY MOUTH AT BEDTIME FOR CHOLESTEROL - REPORT ANY UNEXPLAINED MUSCLE PAIN OR WEAKNESS TO YOUR PROVIDER 45 Sep 23, 2018 [id number] Jul 05, 2018 BRITTANEY VILLEDA CBO C TAMSULOSIN HCL 0.4MG CAP Discontinued TAKE ONE CAPSUL E BY MOUTH ONCE A DAY FOR PROSTATE. TAKE AT THE SAME TIME EACH DAY WITH FOOD. 90 Jun 17 9 [id number] Jun 14, 2018 BRITTANEY VILLEDA TAMSULOSIN HCL 0.4MG CAP TAKE ONE CAPSUL E BY MOUTH ONCE A DAY FOR PROSTATE. TAKE AT THE SAME TIME EACH DAY WITH FOOD. 90 August 01 0 [id number] Jun 24, 2019 BRITTANEY VILLEDA TIOTROPIUM 2.5MCG/ACTUAT INHL,ORAL,60D,4GM Active INHALE 2 PUFFS BY ORAL INHALATION ONCE A DAY FOR BREATHING. DON'T USE WITH IPRATROPIUM - REPLACES ADVAIR. 3 Jun 24, 2020 [id number] Jun 24, 2019 BRITTANEY VILLEDA TIOTROPIUM 2.5MCG/ACTUAT INHL,ORAL,60D,4GM Discontinued INHALE 2 PUFFS BY ORAL INHALATION ONCE A DAY FOR BREATHING. DON'T USE WITH IPRATROPIUM - REPLACES ADVAIR. 3 Oct 13, 2019 [id number] Mar 18, 2019 BRITTANEY VILLEDA Problems (Conditions): All historical and current Section Date Range: From patient's date of to the date document was create d. This section includes a list of Problems (Conditions) know n to OR for the patient. It includes both active and inacti ve problems (conditions). The data comes from all [place] treatment facilities. Problem Status Problem Code Date of Onset Date of Resolution Comm ent(s) Provider Source Actinic keratosis (SNOMED CT 793609968) Active 702.0 BRITTANEY VILLEDA [facility] Alcohol Dependence * (ICD-9-CM 303.90/303.91) Active 303.90 [facility] Anemia Active 285.9 SATHISH SCOTT [facility] ANGINA PECTORIS NEC/NOS 413.9 Active 413.9 W ALEXANDRA DE JESUS [facility] Anxiety Disorder Active 300.[address] [facility] Benign Neoplasm Skin Head, Neck, Scalp Active 216.4 RENALDO DACOSTA [facility] CABG Active 799.9 Oct 05, 2006 E ntered By: SATHISH SCOTT Comment: feb, 4-vessel SATHISH SCOTT [facility] Chest discomfort (SNOMED CT 698786226) Active 786.59 BRITTANEY VILLEDA [facility] Chronic airway obstruction, Not Elsewhere Classified Active 496. AURELIANO LINCOLN MD [facility] Chronic Low Back Pain Active 724.[address] [facility] COPD * (ICD-9-CM 496.) Active 496. Robin SOCTT [facility] Coronary Artery Disease * (ICD-9-CM 414.9) Active 414.9 ALEXANDRA KWONG [facility] Coronary Atherosclerosis of [place] Coronary Vessel Active 414.01 August 03, 2010 Entered By: AURELIANO LINCOLN MD Comment: Bypass surgery AURELIANO LINCOLN MD [facility] Disorder of shoulder (SNOMED CT 316393062) Active 719.91 [facility] Essential Hypertension Active 401.[address] [facility] Hyperlipidemia Active 272.4 [facility] SCOTT [facility] HYPERTENSION NOS 401.9 Active 401.9 ALEXANDRA KWONG [facility] Impotence (SNOMED CT 182835798) Active 302.72 BRITTANEY VILLEDA [facility] 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 [facility] Marijuana Dependence unspecified Active 304.[address] [facility] Microscopic Hematuria (ICD-9-CM 599.72) Active 599.72 BEVERLY SALINAS [facility] Other and unspecified hyperlipidemia Active 272.[address] [facility] Other, mixed, or unspecified drug abuse, continuous use Active 30 5.91 Jan 30, 2009 Entered By: SATHISH SCOTT Comment: urine drug screen positive for opitates and marijuannaMay 2009 Entered By: SATHISH SCOTT Comment: buying hydrocodone "off the street" [facility]ISH SCOTT [facility] Pain in joint involving ankle and foot (ICD-9-CM 719.47) Active 719 .47 [facility] Papular eruption (SNOMED CT 615979729) Active 709.8 [facility]ILLEDA [facility] Personal History of Noncompliance with M edical Treatment, Presenting Hazards to Active V15.81 [facility]ISH SCOTT [facility] Tobacco dependence syndrome (SNOMED CT 27695024) Active [id number] July 24, 2009 Entered By: SATHISH SCOTT Comment: one ppd [facility]UMI AVILA [facility] Transient Ischemic Attack * (ICD-9-CM 435.9) Active 435.9 SATHISH SCOTT [facility] ANIETY STAT NOS 300.00 Inactive 300.00 Jan 05, 2005 [facility]DRA [facility] Bronchitis * (ICD-9-CM 490.) Inactive 490. Jan 05, 2005 [facility]ILLEDA [facility] Postsurgical Aortocoronary Bypass Status (ICD-9-CM V45.81) Inactive V45.81 Oct 05, 2006 [facility]ISH SCOTT [facility] Radiology Reports: +/- 30 days of the encounter No Data Provided for This Section Pathology Reports: +/- 30 days of the encounter No Data Provided for This Section Encounter Notes: All associated encounter notes This section contains the clinical notes associated to the Encounter. Date/Time Encounter Note(s) Provider Source Jan 25, 2019 08:12 AM NONVA CONSULT: LOCAL TITLE: COMMUNITY CARE CONSULT RESULTS NOTE WI STANDARD TITLE: NONVA CONSULT DATE OF NOTE: JAN 25, 2019@08:12 ENTRY DATE: JAN 25, 2019@08:12:45 AUTHOR: STEPHAN ROBLES EXP COSIGNER: URGENCY: STATUS: COMPLETED COMMUNITY CARE-[facility]/11/02/18 /es/ STEPHAN ROBLES MSA Signed: 01/25/2019 08:12 [facility]PHAN ROBLES [facility]
--- OUTSIDE RECORDS SUMMARY | 2019-08-16 03:56 | XMS REPORT | Encounter Summary ---
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 Phone BRITTANEY VILLEDA PCP Unavailable [...] PART B Apr 13, 2007 PART B [id number] [phone] MARTINJUAN MANUEL PATIENT MEDICARE (WNR) MEDICARE (M) PART B Apr 13, 2007 PART B [id number] [phone] JUAN MANUEL MARTIN PATIENT MEDICARE (WNR) MEDICARE (M) PART A Sep 10, 2005 PART A [id number] MARTIN,JUAN MANUEL PATIENT MEDICARE (WNR) MEDICARE (M) PART A Sep 10, 2005 PART A [id number] [phone] JUAN MANUEL MARTIN PATIENT MEDICARE (WNR) MEDICARE (M) PART A Sep 10, 2005 PART A [id number] [phone] JUAN MANUEL MARTIN PATIENT Selected Encounter This section includes the information on record at [place] for the Encounter. Date/Time Encounter Type Encounter Description Reason Provider Source Nov 23, 2018 12:47 PM Outpatient Encounter COMMUNITY CARE CONSULT [facility], [facility] IHE Encounter Template Text not used by [place] Assessments - Encounter Diagnoses No Data Provided for This Section Plan of Treatment: Future Appointments (+ 6 months) and Future Tests (+/- 45 day s) The Plan of Treatment section includes future care activities for the patient fr om all [place] treatment facilities. This section includes future appointments and fu ture orders which are active, pending or scheduled. Future Appointments This section includes appointments that were scheduled t o occur 6 months from the date of the Encounter, up to a maximum of 20 appointme nts. The data comes from all [facility] facilities. Appointment Date/Time Appointment Type Appointment Facili ty Name Jan 02, 2019 08:30 AM AMBULATORY - NONE [facility] Jan 08, 2019 09:00 AM AMBULATORY - MEDICINE [facility] Jan 23, 2019 09:15 AM AMBULATORY - NONE [facility] Surgical Procedures: All associated to the [...] of a patient's completed or amen ded [place] Advance and Rescinded Directives. The entries below indicate that a direc tive exists for the patient, but an actual copy is not included with this docume nt. The data comes from all [place] facilities. Date Advance Directives Provider Source Jan 02, 2018 ADVANCE DIRECTIVE DISCUSSION FLO KRUEGER [facility] Oct 17, 2000 ADVANCE DIRECTIVE EUNICE RODRIGUEZ [facility], [facility] 15 Allergies and Adverse Reactions (ADRs): All historical and current Section Date Range: From patient's date of to the date document was create d. This section includes Allergies and Adverse Reactions (ADR s) on record with [facility] for the patient. The data comes from a ll [place] treatment facilities. It does not list Allergies/ADRs that were removed or entered in error. Some allergies/ADRs may be reported in t he Immunization section. Allergen Event Date Event Type Reaction(s) Severity Source No Known Allergies [facility] No Allergy Assessment on File [facility] Medications: VA dispensed (-15 months) and Non-VA Documented (Obtained Outside V A) Section Date Range: 1) prescriptions processed by a [place] pharmacy in the last 15 m ont, and 2) all medications recorded in the [place] medical record as "non-VA medic ations". Pharmacy terms refer to [place] pharmacy's work on prescriptions. [facility] patient s are advised to take their medications as instructed by their health care team. The data comes from all [place] treatment facilities. Glossary of Pharmacy Terms:Active = A prescription that can be filled at the local [place] pharmacy.Active: On Hold = An active prescription that will not be filled until pharmacy resolves the issue.Active: Susp = An active prescription that is not scheduled to be filled yet.Clinic Order = A medication received during a visit to a [place] clinic or emergency department (currently not available).Discontinued [...] may be a prescription from either the [place] or other providers that was filled outside the [place]. Or, it may be an over the [...] A DAY NEEDED 180 Jan 09, 2020 [id number] Apr 10, 2019 MAK VILLEDA ALBUTEROL SO4 0.083% INHL,3ML Discontinued USE 3 MLS IN NEBULIZER FOR INHALATION TWO TIMES A DAY NEEDED 180 Jan 27, 2019 [id number] Nov 01, 2018 BRITTANEY VENEGAS ALBUTEROL SO4 90MCG/ACTUAT (CFC-F) INHL,ORAL,6.7GM Active INHALE 2 PUFFS BY ORAL INHALATION TWO TIMES A DAY NEEDED - RINSE MOUTHPIECE FREQUENTLY TO PREVENT CLOGGING 2 Aug 30, 2019 [id number] Mar 18, 2019 BRITTANEY VILLEDA ALBUTEROL SO4 90MCG/ACTUAT (CFC-F) INHL,ORAL,6.7GM Discontin ued INHALE 2 PUFFS BY ORAL INHALATION TWO TIMES A DAY NEEDED - RINSE MOUTHPIECE FREQUENTLY TO PREVENT CLOGGING 2 Mar 27, 2019 [id number] Aug 30, 2018 BRITTANEY VILLEDA BUDESONIDE 80MCG/FORMOTEROL FUM 4.5MCG/SPRAY INHL,ORAL,10.2G M Active INHALE 2 PUFFS BY ORAL INHALATION TWO TIMES A DAY FOR BREATHING. SHAKE WELL. RINSE MOUTH AND SPIT AFTER EACH USE. 3 Jun 24, 2020 [id number] Jun 24, 2019 BRITTANEY VILLEDA BUDESONIDE 80MCG/FORMOTEROL FUM 4.5MCG/SPRAY INHL,ORAL,10.2G M Discontinued INHALE 2 PUFFS BY ORAL INHALATION TWO TIMES A DAY FOR BREATHING. SHAKE WELL. RINSE MOUTH AND SPIT AFTER EACH USE. 3 Dec 07, 2019 [id number] Mar 18, 2019 BRITTANEY VILLEDA FERROUS SO4 324MG TAB,EC Active TAKE ONE TABLET BY MOUTH TWO TIMES A DAY FOR IRON SUPPLEMENTATION. MAY TAKE WITH FOOD IF NOT TOLERATED ON EMPTY STOMACH 200 Jan 09, 2020 [id number] Apr 23, 2019 BRITTANEY VILLEDA FERROUS SO4 324MG TAB,EC Discontinued TAKE ONE TABLET BY MOUTH TWO TIMES A DAY FOR IRON SUPPLEMENTATION. MAY TAKE WITH FOOD IF NOT TOLERATED ON EMPTY STOMACH 200 May 02, 2019 [id number] Nov 14, 2018 BRITTANEY VILLEDA CBO C FOLIC ACID 1MG TAB Active TAKE ONE TABLET BY MOUTH ONCE A DAY 90 Nov 22, 2019 [id number] Mar 18, 2019 BRITTANEY VILLEDA FOLIC ACID 1MG TAB Discontinued TAKE ONE TABLET BY MOUTH ONCE A DAY 90 May 02, 2019 [id number] Sep 26, 2018 BRITTANEY VILLEDA GABAPENTIN 300MG CAP Discontinued TAKE 2 CAPSULES BY MOUTH FOUR TITO ES A DAY 720 Jan 27, 2019 [id number] Nov 14, 2018 BRITTANEY VILLEDA GABAPENTIN 400MG CAP Active TAKE 1 CAPSULE BY MOUTH THREE TITO ES A DAY 270 Dec 07, 2019 [id number] Mar 18, 2019 BRITTANEY VILLEDA HYDROCODONE 10MG/ACETAMINOPHEN 325MG TAB Non-VA TAKE ONE TABLET BY MOUTH FOUR TIMES A DAY Non-VA Documented by: RAMY TRENT nted at: STEF[facility] SPAIN LISINOPRIL 10MG TAB Discontinued TAKE ONE-HALF TABLET BY MOUTH EVERY MORNING FOR HEART OR HIGH BLOOD PRESSURE 15 Jun 01, 2019 [id number] Jun 02, 2018 BRITTANEY VILLEDA [facility] [place]AN 25MG TAB Active TAKE ONE TABLET BY MOUTH ONCE A DAY FOR BLOOD PRESSURE 90 Jan 09, 2020 [id number] Apr 23, 2019 BRITTANEY VILLEDA C LOSARTAN 25MG TAB Discontinued TAKE ONE TABLET BY M OUTH ONCE A DAY FOR BLOOD PRESSURE 90 July 13, 2019 [id number] Nov 14, 2018 [facility] MELOXICAM 15MG TAB TAKE ONE TABLET BY M OUTH ONCE A DAY FOR PAIN OR INFLAMMATION. 90 Jun 01, 2019 [id number] Mar 18, 2019 BRITTANEY VILLEDA METOPROLOL TARTRATE 25MG TAB Active TAKE ONE-SMITH LF TABLET BY MOUTH TWO TIMES A DAY FOR HEART/BLOOD PRESSURE. TAKE WITH OR IMMEDIATELY FOLLOWING FOOD. 90 Jan 09, 2020 [id number] Apr 23, 2019 BRITTANEY VILLEDA METOPROLOL TARTRATE 25MG TAB Discontinued TAKE ONE-SMITH LF TABLET BY MOUTH TWO TIMES A DAY FOR HEART/BLOOD PRESSURE. TAKE WITH OR IMMEDIATELY FOLLOWING FOOD. 90 July 13, 2019 [id number] Nov 14, 2018 TIERRA KWONG [facility] SIMVASTATIN 40MG TAB Active TAKE ONE-HALF TABLE T BY MOUTH AT BEDTIME FOR CHOLESTEROL - REPORT ANY UNEXPLAINED MUSCLE PAIN OR WEAKNESS TO YOUR PROVIDER 45 Sep 27, 2019 [id number] Jun 24, 2019 BRITTANEY VILLEDA C SIMVASTATIN 40MG TAB Discontinued TAKE ONE-HALF TABLE T BY MOUTH AT BEDTIME FOR CHOLESTEROL - REPORT ANY UNEXPLAINED MUSCLE PAIN OR WEAKNESS TO YOUR PROVIDER 45 Sep 23, 2018 [id number] Jul 05, 2018 RONAL,BRITTANEY B KO CBO C TAMSULOSIN HCL 0.4MG CAP Discontinued TAKE ONE CAPSUL E BY MOUTH ONCE A DAY FOR PROSTATE. TAKE AT THE SAME TIME EACH DAY WITH FOOD. 90 Jun 17, 9 [id number] Jun 14, 2018 BRITTANEY VILLEDA TAMSULOSIN HCL 0.4MG CAP TAKE ONE CAPSUL E BY MOUTH ONCE A DAY FOR PROSTATE. TAKE AT THE SAME TIME EACH DAY WITH FOOD. 90 August 01 0 [id number] Jun 24, 2019 BRITTANEY VILLEDA TIOTROPIUM 2.5MCG/ACTUAT INHL,ORAL,60D,4GM Active INHALE 2 PUFFS BY ORAL INHALATION ONCE A DAY FOR BREATHING. DON'T USE WITH IPRATROPIUM - REPLACES ADVAIR. 3 Jun 24, 2020 [id number] Jun 24, 2019 BRITTANEY VILLEDA CBTERRENCE TIOTROPIUM 2.5MCG/ACTUAT INHL,ORAL,60D,4GM Discontinued INHALE 2 PUFFS BY ORAL INHALATION ONCE A DAY FOR BREATHING. DON'T USE WITH IPRATROPIUM - REPLACES ADVAIR. 3 Oct 13, 2019 [id number] Mar 18, 2019 BRITTANEY VILLEDA [facility] Problems (Conditions): All historical and current Section Date Range: From patient's date of to the date document was create d. This section includes a list of Problems (Conditions) know n to [facility] for the patient. It includes both active and inacti ve problems (conditions). The data comes from all [place] treatment facilities. Problem Status Problem Code Date of Onset Date of Resolution Comm ent(s) Provider Source Actinic keratosis (SNOMED CT 416752284) Active 702.0 BRITTANEY VILLEDA [facility] Alcohol Dependence * (ICD-9-CM 303.90/303.91) Active 303.90 ALEXANDRA KWONG [facility] Anemia Active 285.9 SATHISH SCOTT [facility] ANGINA PECTORIS NEC/NOS 413.9 Active 413.9 ALEXANDRA RUELAS [facility] Anxiety Disorder Active 300.00 AURELIANO LINCOLN MD [facility] Benign Neoplasm Skin Head, Neck, Scalp Active 216.4 RENALDO DACOSTA [facility] CABG Active 799.9 Oct 05, 2006 E ntered By: SATHISH SCOTT Comment: feb, 4-vessel [facility]ISH [facility]OTT [facility] Chest discomfort (SNOMED CT 924991608) Active 786.59 BRITTANEY VILLEDA [facility] Chronic airway obstruction, Not Elsewhere Classified Active 496. AURELIANO LINCOLN MD [facility] Chronic Low Back Pain Active 724.2 AURELIANO LINCOLN MD [facility] COPD * (ICD-9-CM 496.) Active 496. Robin SCOTT [facility] Coronary Artery Disease * (ICD-9-CM 414.9) Active 414.9 ALEXANDRA KWONG [facility] Coronary Atherosclerosis of [place] Coronary Vessel Active 414.01 August 03, 2010 Entered By: AURELIANO LINCOLN MD Comment: Bypass surgery AURELIANO LINCOLN MD [facility] Disorder of shoulder (SNOMED CT 646265631) Active 719.91 BRITTANEY VILLEDA [facility] Essential Hypertension Active 401.9 AURELIANO LINCOLN MD [facility] Hyperlipidemia Active 272.4 SATHISH SCOTT PREETHI ROSA [facility] HYPERTENSION NOS 401.9 Active 401.9 ALEXANDRA KWONG [facility] Impotence (SNOMED CT 267346646) Active 302.72 BRITTANEY VILLEDA [facility] 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 AURELIANO LIU MD [facility] Marijuana Dependence unspecified Active 304.30 AURELIANO LINCOLN MD [facility] Microscopic Hematuria (ICD-9-CM 599.72) Active 599.72 BEVERLY SALINAS [facility] Other and unspecified hyperlipidemia Active 272.4 AURELIANO LINCOLN MD [facility] Other, mixed, or unspecified drug abuse, continuous use Active 30 5.91 Jan 30, 2009 Entered By: SATHISH SCOTT Comment: urine drug screen positive for opitates and marijuannaMay 2009 Entered By: SATHISH SCOTT Comment: buying hydrocodone "off the street" SATHISH SCOTT [facility] Pain in joint involving ankle and foot (ICD-9-CM 719.47) Active 719 .47 [facility] SC[facility] Papular eruption (SNOMED CT 182379484) Active 709.8 BRITTANEY VILLEDA [facility] Personal History of Noncompliance with M edical Treatment, Presenting Hazards to Active V15.81 [facility]ISH SCOTT [facility] Tobacco dependence syndrome (SNOMED CT 28138812) Active [id number] July 24, 2009 Entered By: SATHISH SCOTT Comment: one ppd YUMI AVILA [facility] Transient Ischemic Attack * (ICD-9-CM 435.9) Active 435.9 [facility]ATHISH SCOTT [facility] ANIETY STAT NOS 300.00 Inactive 300.00 Jan 05, 2005 ALEXANDRA FLOREZ [facility] Bronchitis * (ICD-9-CM 490.) Inactive 490. Jan 05, 2005 BRITTANEY VILLEDA [facility] Postsurgical Aortocoronary Bypass Status (ICD-9-CM V45.81) Inactive V45.81 Oct 05, 2006 SATHISH SCOTT [facility] Radiology Reports: +/- 30 days of the encounter No Data Provided for This Section Pathology Reports: +/- 30 days of the encounter No Data Provided for This Section Encounter Notes: All associated encounter notes This section contains the clinical notes associated to the Encounter. Date/Time Encounter Note(s) Provider Source Nov 23, 2018 12:47 PM NONVA CONSULT: LOCAL TITLE: COMMUNITY CARE CONSULT RESULTS NOTE WI STANDARD TITLE: NONVA CONSULT DATE OF NOTE: NOV 23, 2018@12:47 ENTRY DATE: NOV 23, 2018@12:48:01 AUTHOR: SULMA PLEITEZ EXP COSIGNER: URGENCY: STATUS: COMPLETED COMMUNITY CARE-PULMONARY REHAB/[facility]/11/02/18 /nuno/ SULMA PLEITEZ Signed: 11/23/2018 12:48 SULMA PLEITEZ [facility]
--- OUTSIDE RECORDS SUMMARY | 2019-08-16 03:56 | XMS REPORT | Encounter Summary ---
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 Role Phone BRITTANEY VILLEDA PCP Unavailable [...] PART B Apr 13, 2007 PART B [id number] [phone] MARTIN,GARY PATIENT MEDICARE (WNR) MEDICARE (M) PART B Apr 13, 2007 PART B [id number] JUAN MANUEL MARTIN PATIENT MEDICARE (WNR) MEDICARE (M) PART A Sep 10, 2005 PART A [id number] [phone] MARTINJUAN MANUEL PATIENT MEDICARE (WNR) MEDICARE (M) PART A Sep 10, 2005 PART A [id number] MARTIN,GARY PATIENT MEDICARE (WNR) MEDICARE (M) PART A Sep 10, 2005 PART A [id number] JUAN MANUEL MARTIN PATIENT Selected Encounter This section includes the information on record at [place] for the Encounter. Date/Time Encounter Type Encounter Description Reason Provider Source Jan 08, 2019 12:00 AM Outpatient En[facility] IHE Encounter Template Text not used by [place] Assessments - Encounter Diagnoses No Data Provided [...] 2019 09:15 AM AMBULATORY - NONE [facility] Surgical Procedures: All associated to the encounter No Data Provided for This Section Lab Results: +/- 30 days of the encounter This section includes the Chemistry and Hematology Lab R esults on record with [place] for the patient. Radiology Reports and Pathology Report s are provided separately, in subsequent sections. Lab Results This section contains the Chemistry/Hematology Results kneyatta t were resulted 30 days before or [...] 0.7 % Jan 08, 2019 08:20 AM STEFANI [facility] SUNI Specimen Type: PLASMA [...] >60 Jan 08, 2019 08:20 AM [facility] LIPID PROFILE(HDL,TRIG,CHO L,LDL) Specimen Type: PLASMA Comment: [...] Oct 17, 2000 ADVANCE DIRECTIVE EUNICE RODRIGUEZ [facility] Allergies and Adverse Reactions [...] Type Reaction(s) Severity Source No Known Allergies [facility] No Allergy Assessment on File [facility] Medications: [facility] dispensed (-15 [...] A DAY NEEDED 180 Jan 09, 2020 [id number] Apr 10, 2019 MAK VILLEDA CBTERRENCE ALBUTEROL SO4 0.083% INHL,3ML Discontinued USE 3 MLS IN NEBULIZER FOR INHALATION TWO TIMES A DAY NEEDED 180 Jan 27, 2019 [id number] Nov 01, 2018 BRITTANEY VENEGAS ALBUTEROL SO4 90MCG/ACTUAT (CFC-F) INHL,ORAL,6.7GM Active INHALE 2 PUFFS BY ORAL INHALATION TWO TIMES A DAY NEEDED - RINSE MOUTHPIECE FREQUENTLY TO PREVENT CLOGGING 2 Aug 30, 2019 [id number] Mar 18, 2019 BRITTANEY VILLEDA [facility] ALBUTEROL SO4 90MCG/ACTUAT (CFC-F) INHL,ORAL,6.7GM Discontin ued INHALE 2 PUFFS BY ORAL INHALATION TWO TIMES A DAY NEEDED - RINSE MOUTHPIECE FREQUENTLY TO PREVENT CLOGGING 2 Mar 27, 2019 [id number] Aug 30, 2018 BRITTANEY VILLEDA BUDESONIDE 80MCG/FORMOTEROL FUM 4.5MCG/SPRAY INHL,ORAL,10.2G M Active INHALE 2 PUFFS BY ORAL INHALATION TWO TIMES A DAY FOR BREATHING. SHAKE WELL. RINSE MOUTH AND SPIT AFTER EACH USE. 3 Jun 24, 2020 [id number] Jun 24, 2019 BRITTANEY VILLEDA [facility] BUDESONIDE 80MCG/FORMOTEROL FUM 4.5MCG/SPRAY INHL,ORAL,10.2G M Discontinued INHALE 2 PUFFS BY ORAL INHALATION TWO TIMES A DAY FOR BREATHING. SHAKE WELL. RINSE MOUTH AND SPIT AFTER EACH USE. 3 Dec 07, 2019 [id number] Mar 18, 2019 BRITTANEY VILLEDA [facility] FERROUS SO4 324MG TAB,EC Active TAKE ONE TABLET BY MOUTH TWO TIMES A DAY FOR IRON SUPPLEMENTATION. MAY TAKE WITH FOOD IF NOT TOLERATED ON EMPTY STOMACH 200 Jan 09, 2020 [id number] Apr 23, 2019 BRITTANEY VILLEDA [facility] FERROUS SO4 324MG TAB,EC Discontinued TAKE ONE TABLET BY MOUTH TWO TIMES A DAY FOR IRON SUPPLEMENTATION. MAY TAKE WITH FOOD IF NOT TOLERATED ON EMPTY STOMACH 200 May 02, 2019 [id number] Nov 14, 2018 BRITTANEY VILLEDA C FOLIC ACID 1MG TAB Active TAKE ONE TABLET BY MOUTH ONCE A DAY 90 Nov 22, 2019 [id number] Mar 18, 2019 BRITTANEY VILLEDA FOLIC ACID 1MG TAB Discontinued TAKE ONE TABLET BY MOUTH ONCE A DAY 90 May 02, 2019 [id number] Sep 26, 2018 BRITTANEY VILLEDA GABAPENTIN 300MG CAP Discontinued TAKE 2 CAPSULES BY MOUTH FOUR TITO ES A DAY 720 Jan 27, 2019 [id number] Nov 14, 2018 BRITTANEY VILLEDA GABAPENTIN 400MG CAP Active TAKE 1 CAPSULE BY MOUTH THREE TITO ES A DAY 270 Dec 07, 2019 [id number] Mar 18, 2019 BRITTANEY VILLEDA HYDROCODONE 10MG/ACETAMINOPHEN 325MG TAB Non-VA TAKE ONE TABLET BY MOUTH FOUR TIMES A DAY Non-VA Documented by: RAMY TRENT nted at: STEFANI SPAIN LISINOPRIL 10MG TAB Discontinued TAKE ONE-HALF TABLET BY MOUTH EVERY MORNING FOR HEART OR HIGH BLOOD PRESSURE 15 Jun 01, 2019 [id number] Jun 02, 2018 BRITTANEY VILLEDA [facility] LOSARTAN 25MG TAB Active TAKE ONE TABLET BY MOUTH ONCE A DAY FOR BLOOD PRESSURE 90 Jan 09, 2020 [id number] Apr 23, 2019 BRITTANEY VILLEDA CBO C LOSARTAN 25MG TAB Discontinued TAKE ONE TABLET BY M OUTH ONCE A DAY FOR BLOOD PRESSURE 90 July 13, 2019 [id number] Nov 14, 2018 TIERRA KWONG [facility] MELOXICAM 15MG TAB TAKE ONE TABLET BY M OUTH ONCE A DAY FOR PAIN OR INFLAMMATION. 90 Jun 01, 2019 [id number] Mar 18, 2019 BRITTANEY VILLEDA CBTERRENCE METOPROLOL TARTRATE 25MG TAB Active TAKE ONE-SMITH LF TABLET BY MOUTH TWO TIMES A DAY FOR HEART/BLOOD PRESSURE. TAKE WITH OR IMMEDIATELY FOLLOWING FOOD. 90 Jan 09, 2020 [id number] Apr 23, 2019 BRITTANEY VILLEDA [facility] METOPROLOL TARTRATE 25MG TAB Discontinued TAKE ONE-SMITH LF TABLET BY MOUTH TWO TIMES A DAY FOR HEART/BLOOD PRESSURE. TAKE WITH OR IMMEDIATELY FOLLOWING FOOD. 90 July 13, 2019 [id number] Nov 14, 2018 TIERRA KWONG [facility] SIMVASTATIN 40MG TAB Active TAKE ONE-HALF TABLE T BY MOUTH AT BEDTIME FOR CHOLESTEROL - REPORT ANY UNEXPLAINED MUSCLE PAIN OR WEAKNESS TO YOUR PROVIDER 45 Sep 27, 2019 [id number] Jun 24, 2019 BRITTANEY VILLEDA CBO C SIMVASTATIN 40MG TAB Discontinued TAKE ONE-HALF TABLE T BY MOUTH AT BEDTIME FOR CHOLESTEROL - REPORT ANY UNEXPLAINED MUSCLE PAIN OR WEAKNESS TO YOUR PROVIDER 45 Sep 23, 2018 [id number] Jul 05, 2018 BRITTANEY VILLEDA CBO C TAMSULOSIN HCL 0.4MG CAP Discontinued TAKE ONE CAPSUL E BY MOUTH ONCE A DAY FOR PROSTATE. TAKE AT THE SAME TIME EACH DAY WITH FOOD. 90 Jun 17 9 [id number] Jun 14, 2018 BRITTANEY VILLEDA CBTERRENCE TAMSULOSIN HCL 0.4MG CAP TAKE ONE CAPSUL E BY MOUTH ONCE A DAY FOR PROSTATE. TAKE AT THE SAME TIME EACH DAY WITH FOOD. 90 August 01 0 [id number] Jun 24, 2019 BRITTANEY VILLEDA TIOTROPIUM 2.5MCG/ACTUAT INHL,ORAL,60D,4GM Active INHALE 2 PUFFS BY ORAL INHALATION ONCE A DAY FOR BREATHING. DON'T USE WITH IPRATROPIUM - REPLACES ADVAIR. 3 Jun 24, 2020 [id number] Jun 24, 2019 BRITTANEY VILLEDA [facility] TIOTROPIUM 2.5MCG/ACTUAT INHL,ORAL,60D,4GM Discontinued INHALE 2 PUFFS BY ORAL INHALATION ONCE A DAY FOR BREATHING. DON'T USE WITH IPRATROPIUM - REPLACES ADVAIR. 3 Oct 13, 2019 [id number] Mar 18, 2019 BRITTANEY VILLEDA PARS [facility]NS [facility] Problems (Conditions): All historical [...] ent(s) Provider Source Actinic keratosis (SNOMED CT 688578826) Active 702.0 BRITTANEY VILLEDA [facility] Alcohol Dependence * (ICD-9-CM 303.90/303.91) Active 303.90 ALEXANDRA KWONG [facility] Anemia Active 285.9 SATHISH SCOTT [facility] ANGINA PECTORIS NEC/NOS 413.9 Active 413.9 W ALEXANDRA DE JESUS [facility] Anxiety Disorder Active 300.00 AURELIANO LINCOLN MD [facility] Benign Neoplasm Skin Head, Neck, Scalp Active 216.4 RENALDO DACOSTA [facility] CABG Active 799.9 Oct 05, 2006 E ntered By: SATHISH SCOTT Comment: feb, 4-vessel SATHISH SCOTT [facility] Chest discomfort (SNOMED CT 026538964) Active 786.59 BRITTANEY VILLEDA [facility] Chronic airway obstruction, Not Elsewhere Classified Active 496. AURELIANO LINCOLN MD [facility] Chronic Low Back Pain Active 724.2 AURELIANO LINCOLN MD [facility] COPD * (ICD-9-CM 496.) Active 496. Robin SCOTT [facility] Coronary Artery Disease * (ICD-9-CM 414.9) Active 414.9 ALEXANDRA KWONG [facility] Coronary Atherosclerosis of [place] Coronary Vessel Active 414.01 August 03, 2010 Entered By: AURELIANO LINCOLN MD Comment: Bypass surgery AURELIANO LINCOLN MD [facility] Disorder of shoulder (SNOMED CT 872784397) Active 719.91 BRITTANEY VILLEDA [facility] Essential Hypertension Active 401.9 AURELIANO LINCOLN MD [facility] Hyperlipidemia Active 272.4 SATHISH SCOTT [facility] HYPERTENSION NOS 401.9 Active 401.9 ALEXANDRA KWOGN [facility] Impotence (SNOMED CT 072432362) Active 302.72 BRITTANEY VILLEDA [facility] 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 Other and unspecified hyperlipidemia Active 272.4 AURELIANO LINCOLN MD [facility] Other, mixed, or unspecified drug abuse, continuous use Active 30 5.91 Jan 30, 2009 Entered By: SATHISH SCOTT Comment: urine drug screen positive for opitates and marijuannaMay 2009 Entered By: SATHISH SCOTT Comment: buying hydrocodone "off the street" SATHISH SCOTT [facility] Pain in joint involving ankle and foot (ICD-9-CM 719.47) Active 719 .47 SATHISH SCOTT [facility] Papular eruption (SNOMED CT 441481919) Active 709.8 BRITTANEY VILLEDA [facility] Personal History of Noncompliance with M edical Treatment, Presenting Hazards to Active V15.81 SATHISH SCOTT [facility] Tobacco dependence syndrome (SNOMED CT 57133325) Active [id number] July 24, 2009 Entered By: SATHISH SCOTT Comment: one YUMI Gibbons [facility] Transient Ischemic Attack * (ICD-9-CM 435.9) Active 435.9 SATHISH SCOTT [facility] ANIETY STAT NOS 300.00 Inactive 300.00 Jan 05, 2005 ALEXANDRA FLOREZ STEPHANIE [facility] Bronchitis * (ICD-9-CM 490.) Inactive 490. Jan 05, 2005 BRITTANEY VILLEDA [facility] Postsurgical Aortocoronary Bypass Status (ICD-9-CM V45.81) Inactive V45.81 Oct 05, 2006 SATHISH SCOTT [facility] Radiology Reports: +/- 30 days of the encounter No Data Provided for This Section Pathology Reports: +/- 30 days of the encounter No Data Provided for This Section Encounter Notes: All associated encounter notes No Data Provided for This Section
--- OUTSIDE RECORDS SUMMARY | 2019-08-16 03:57 | XMS REPORT | Encounter Summary ---
Author Author [facility] JUAN MANUEL posey Organization Department of [facility] Address [address] [place] [phone] Phone Unavailable Care Team Providers Care [employer] Applier Name Role Phone BRITTANEY VILLEDA PCP Unavailable [...] PART B Apr 13, 2007 PART B [id number] [phone] MARTINJUAN MANUEL PATIENT MEDICARE (WNR) MEDICARE (M) PART B Apr 13, 2007 PART B [id number] JUAN MANUEL MARTIN PATIENT MEDICARE (WNR) MEDICARE (M) PART A Sep 10, 2005 PART A [id number] MARTIN,JUAN MANUEL PATIENT MEDICARE (WNR) MEDICARE (M) PART A Sep 10, 2005 PART A [id number] [phone] JUAN MANUEL MARTIN PATIENT MEDICARE (WNR) MEDICARE (M) PART A Sep 10, 2005 PART A [id number] JUAN MANUEL MARTIN PATIENT Selected Encounter This section includes the information on record at [place] for the Encounter. Date/Time Encounter Type Encounter Description Reason Provider Source Nov 09, 2018 03:38 PM Outpatient Encounter COMMUNITY CARE CONSULT [facility], [facility] IHE Encounter Template Text not used by [place] Assessments - Encounter Diagnoses No Data Provided for This Section Plan of Treatment: Future Appointments (+ 6 months) and Future Tests (+/- 45 day s) The Plan of Treatment section includes future care activities for the patient fr om all [place] treatment facilities. This section includes future appointments and fu ture orders which are active, pending or scheduled. Future Appointments This section includes appointments that were scheduled t o occur 6 months from the date of the Encounter, up to a maximum of 20 appointme nts. The data comes from all [facility] facilities. Appointment Date/Time Appointment Type Appointment Facili ty Name Jan 02, 2019 08:30 AM AMBULATORY - NONE [facility] Jan 08, 2019 09:00 AM AMBULATORY - MEDICINE [facility] Jan 23, 2019 09:15 AM AMBULATORY - NONE [facility] Surgical Procedures: All associated to the [...] of a patient's completed or amen ded [place] Advance and Rescinded Directives. The entries below indicate that a direc tive exists for the patient, but an actual copy is not included with this docume nt. The data comes from all [place] facilities. Date Advance Directives Provider Source Jan 02, 2018 ADVANCE DIRECTIVE DISCUSSION FLO KRUEGER [facility] Oct 17, 2000 ADVANCE DIRECTIVE EUNICE RODRIGUEZ [facility], [facility] 15 Allergies and Adverse Reactions (ADRs): All historical and current Section Date Range: From patient's date of to the date document was create d. This section includes Allergies and Adverse Reactions (ADR s) on record with [facility] for the patient. The data comes from a ll [place] treatment facilities. It does not list Allergies/ADRs that were removed or entered in error. Some allergies/ADRs may be reported in t he Immunization section. Allergen Event Date Event Type Reaction(s) Severity Source No Known Allergies [facility] No Allergy Assessment on File [facility] Medications: VA dispensed (-15 months) and Non-VA Documented (Obtained Outside V A) Section Date Range: 1) prescriptions processed by a [place] pharmacy in the last 15 m ont, and 2) all medications recorded in the [place] medical record as "non-VA medic ations". Pharmacy terms refer to [place] pharmacy's work on prescriptions. VA patient s are advised to take their medications as instructed by their health care team. The data comes from all [place] treatment facilities. Glossary of Pharmacy Terms:Active = A prescription that can be filled at the local [place] pharmacy.Active: On Hold = An active prescription that will not be filled until pharmacy resolves the issue.Active: Susp = An active prescription that is not scheduled to be filled yet.Clinic Order = A medication received during a visit to a [place] clinic or emergency department (currently not available).Discontinued [...] may be a prescription from either the [place] or other providers that was filled outside the [place]. Or, it may be an over the [...] A DAY NEEDED 180 Jan 09, 2020 [id number] Apr 10, 2019 MAK VILLEDA ALBUTEROL SO4 0.083% INHL,3ML Discontinued USE 3 MLS IN NEBULIZER FOR INHALATION TWO TIMES A DAY NEEDED 180 Jan 27, 2019 [id number] Nov 01, 2018 BRITTANEY VENEGAS ALBUTEROL SO4 90MCG/ACTUAT (CFC-F) INHL,ORAL,6.7GM Active INHALE 2 PUFFS BY ORAL INHALATION TWO TIMES A DAY NEEDED - RINSE MOUTHPIECE FREQUENTLY TO PREVENT CLOGGING 2 Aug 30, 2019 [id number] Mar 18, 2019 BRITTANEY VILLEDA ALBUTEROL SO4 90MCG/ACTUAT (CFC-F) INHL,ORAL,6.7GM Discontin ued INHALE 2 PUFFS BY ORAL INHALATION TWO TIMES A DAY NEEDED - RINSE MOUTHPIECE FREQUENTLY TO PREVENT CLOGGING 2 Mar 27, 2019 [id number] Aug 30, 2018 BRITTANEY VILLEDA BUDESONIDE 80MCG/FORMOTEROL FUM 4.5MCG/SPRAY INHL,ORAL,10.2G M Active INHALE 2 PUFFS BY ORAL INHALATION TWO TIMES A DAY FOR BREATHING. SHAKE WELL. RINSE MOUTH AND SPIT AFTER EACH USE. 3 Jun 24, 2020 [id number] Jun 24, 2019 BRITTANEY VILLEDA BUDESONIDE 80MCG/FORMOTEROL FUM 4.5MCG/SPRAY INHL,ORAL,10.2G M Discontinued INHALE 2 PUFFS BY ORAL INHALATION TWO TIMES A DAY FOR BREATHING. SHAKE WELL. RINSE MOUTH AND SPIT AFTER EACH USE. 3 Dec 07, 2019 [id number] Mar 18, 2019 BRITTANEY VILLEDA FERROUS SO4 324MG TAB,EC Active TAKE ONE TABLET BY MOUTH TWO TIMES A DAY FOR IRON SUPPLEMENTATION. MAY TAKE WITH FOOD IF NOT TOLERATED ON EMPTY STOMACH 200 Jan 09, 2020 [id number] Apr 23, 2019 BRITTANEY VILLEDA FERROUS SO4 324MG TAB,EC Discontinued TAKE ONE TABLET BY MOUTH TWO TIMES A DAY FOR IRON SUPPLEMENTATION. MAY TAKE WITH FOOD IF NOT TOLERATED ON EMPTY STOMACH 200 May 02, 2019 [id number] Nov 14, 2018 BRITTANEY VILLEDA CBO C FOLIC ACID 1MG TAB Active TAKE ONE TABLET BY MOUTH ONCE A DAY 90 Nov 22, 2019 [id number] Mar 18, 2019 BRITTANEY VILLEDA FOLIC ACID 1MG TAB Discontinued TAKE ONE TABLET BY MOUTH ONCE A DAY 90 May 02, 2019 [id number] Sep 26, 2018 BRITTANEY VILLEDA GABAPENTIN 300MG CAP Discontinued TAKE 2 CAPSULES BY MOUTH FOUR TITO ES A DAY 720 Jan 27, 2019 [id number] Nov 14, 2018 BRITTANEY VILLEDA GABAPENTIN 400MG CAP Active TAKE 1 CAPSULE BY MOUTH THREE TITO ES A DAY 270 Dec 07, 2019 [id number] Mar 18, 2019 BRITTANEY VILLEDA HYDROCODONE 10MG/ACETAMINOPHEN 325MG TAB Non-VA TAKE ONE TABLET BY MOUTH FOUR TIMES A DAY Non-VA Documented by: RAMY TRENT nted at: STEFANI SPAIN LISINOPRIL 10MG TAB Discontinued TAKE ONE-HALF TABLET BY MOUTH EVERY MORNING FOR HEART OR HIGH BLOOD PRESSURE 15 Jun 01, 2019 [id number] Jun 02, 2018 BRITTANEY VILLEDA [facility]OC [place]AN 25MG TAB Active TAKE ONE TABLET BY MOUTH ONCE A DAY FOR BLOOD PRESSURE 90 Jan 09, 2020 [id number] Apr 23, 2019 BRITTANEY VILLEDA C LOSARTAN 25MG TAB Discontinued TAKE ONE TABLET BY M OUTH ONCE A DAY FOR BLOOD PRESSURE 90 July 13, 2019 [id number] Nov 14, 2018 [facility] MELOXICAM 15MG TAB TAKE ONE TABLET BY M OUTH ONCE A DAY FOR PAIN OR INFLAMMATION. 90 Jun 01, 2019 [id number] Mar 18, 2019 BRITTANEY VILLEDA METOPROLOL TARTRATE 25MG TAB Active TAKE ONE-SMITH LF TABLET BY MOUTH TWO TIMES A DAY FOR HEART/BLOOD PRESSURE. TAKE WITH OR IMMEDIATELY FOLLOWING FOOD. 90 Jan 09, 2020 [id number] Apr 23, 2019 BRITTANEY VILLEDA METOPROLOL TARTRATE 25MG TAB Discontinued TAKE ONE-SMITH LF TABLET BY MOUTH TWO TIMES A DAY FOR HEART/BLOOD PRESSURE. TAKE WITH OR IMMEDIATELY FOLLOWING FOOD. 90 July 13, 2019 [id number] Nov 14, 2018 TIERRA KWONG [facility] SIMVASTATIN 40MG TAB Active TAKE ONE-HALF TABLE T BY MOUTH AT BEDTIME FOR CHOLESTEROL - REPORT ANY UNEXPLAINED MUSCLE PAIN OR WEAKNESS TO YOUR PROVIDER 45 Sep 27, 2019 [id number] Jun 24, 2019 BRITTANEY VILLEDA C SIMVASTATIN 40MG TAB Discontinued TAKE ONE-HALF TABLE T BY MOUTH AT BEDTIME FOR CHOLESTEROL - REPORT ANY UNEXPLAINED MUSCLE PAIN OR WEAKNESS TO YOUR PROVIDER 45 Sep 23, 2018 [id number] Jul 05, 2018 RONAL,BRITTANEY B KO CBO C TAMSULOSIN HCL 0.4MG CAP Discontinued TAKE ONE CAPSUL E BY MOUTH ONCE A DAY FOR PROSTATE. TAKE AT THE SAME TIME EACH DAY WITH FOOD. 90 Jun 17, 9 [id number] Jun 14, 2018 BRITTANEY VILLEDA TAMSULOSIN HCL 0.4MG CAP TAKE ONE CAPSUL E BY MOUTH ONCE A DAY FOR PROSTATE. TAKE AT THE SAME TIME EACH DAY WITH FOOD. 90 August 01 0 [id number] Jun 24, 2019 BRITTANEY VILLEDA TIOTROPIUM 2.5MCG/ACTUAT INHL,ORAL,60D,4GM Active INHALE 2 PUFFS BY ORAL INHALATION ONCE A DAY FOR BREATHING. DON'T USE WITH IPRATROPIUM - REPLACES ADVAIR. 3 Jun 24, 2020 [id number] Jun 24, 2019 BRITTANEY VILLEDA CBTERRENCE TIOTROPIUM 2.5MCG/ACTUAT INHL,ORAL,60D,4GM Discontinued INHALE 2 PUFFS BY ORAL INHALATION ONCE A DAY FOR BREATHING. DON'T USE WITH IPRATROPIUM - REPLACES ADVAIR. 3 Oct 13, 2019 [id number] Mar 18, 2019 BRITTANEY VILLEDA [facility] Problems (Conditions): All historical and current Section Date Range: From patient's date of to the date document was create d. This section includes a list of Problems (Conditions) know n to [facility] for the patient. It includes both active and inacti ve problems (conditions). The data comes from all [place] treatment facilities. Problem Status Problem Code Date of Onset Date of Resolution Comm ent(s) Provider Source Actinic keratosis (SNOMED CT 560999992) Active 702.0 BRITTANEY VILLEDA [facility] Alcohol Dependence * (ICD-9-CM 303.90/303.91) Active 303.90 ALEXANDRA KWONG [facility] Anemia Active 285.9 SATHISH SCOTT [facility] ANGINA PECTORIS NEC/NOS 413.9 Active 413.9 ALEXANDRA RUELAS [facility] Anxiety Disorder Active 300.00 AURELIANO LINCOLN MD [facility] Benign Neoplasm Skin Head, Neck, Scalp Active 216.4 RE[facility]O [facility]OST[facility] CABG Active 799.9 Oct 05, 2006 E ntered By: SATHISH SCOTT Comment: feb, 4-vessel [facility] Chest discomfort (SNOMED CT 336825617) Active 786.59 BRITTANEY VILLEDA [facility] Chronic airway obstruction, Not Elsewhere Classified Active 496. AURELIANO LINCOLN MD [facility] Chronic Low Back Pain Active 724.2 AURELIANO LINCOLN MD [facility] COPD * (ICD-9-CM 496.) Active 496. Robin SCOTT [facility] Coronary Artery Disease * (ICD-9-CM 414.9) Active 414.9 ALEXANDRA KWONG [facility] Coronary Atherosclerosis of [place] Coronary Vessel Active 414.01 August 03, 2010 Entered By: AURELIANO LINCOLN MD Comment: Bypass surgery AURELIANO LINCOLN MD [facility] Disorder of shoulder (SNOMED CT 819204024) Active 719.91 BRITTANEY VILLEDA [facility] Essential Hypertension Active 401.9 AURELIANO LINCOLN MD [facility] Hyperlipidemia Active 272.4 SATHISH SCOTT PREETHI ROSA [facility] HYPERTENSION NOS 401.9 Active 401.9 ALEXANDRA KWONG [facility] Impotence (SNOMED CT 047958818) Active 302.72 BRITTANEY VILLEDA [facility] 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 AURELIANO LIU MD [facility] Marijuana Dependence unspecified Active 304.30 AURELIANO LINCOLN MD [facility] Microscopic Hematuria (ICD-9-CM 599.72) Active 599.72 [facility] Other and unspecified hyperlipidemia Active 272.4 AURELIANO LINCOLN MD [facility] Other, mixed, or unspecified drug abuse, continuous use Active 30 5.91 Jan 30, 2009 Entered By: SATHISH SCOTT Comment: urine drug screen positive for opitates and marijuannaMay 2009 Entered By: SATHISH SCOTT Comment: buying hydrocodone "off the street" SATHISH SCOTT [facility] Pain in joint involving ankle and foot (ICD-9-CM 719.47) Active 719 .47 [facility] Papular eruption (SNOMED CT 251328621) Active 709.8 BRITTANEY VILLEDA [facility] Personal History of Noncompliance with M edical Treatment, Presenting Hazards to Active V15.[address] Tobacco dependence syndrome (SNOMED CT 31608618) Active [id number] July 24, 2009 Entered By: SATHISH SCOTT Comment: one ppd YUMI AVILA [facility] Transient Ischemic Attack * (ICD-9-CM 435.9) Active 435.[address] [facility] ANIETY STAT NOS 300.00 Inactive 300.00 Jan 05, 2005 ALEXANDRA FLOREZ [facility] Bronchitis * (ICD-9-CM 490.) Inactive 490. Jan 05, 2005 BRITTANEY VILLEDA [facility] Postsurgical Aortocoronary Bypass Status (ICD-9-CM V45.81) Inactive V45.81 Oct 05, 2006 SATHISH SCOTT [facility] Radiology Reports: +/- 30 days of the encounter No Data Provided for This Section Pathology Reports: +/- 30 days of the encounter No Data Provided for This Section Encounter Notes: All associated encounter notes This section contains the clinical notes associated to the Encounter. Date/Time Encounter Note(s) Provider Source Nov 09, 2018 03:38 PM NONVA CONSULT: LOCAL TITLE: COMMUNITY CARE CONSULT RESULTS NOTE WI STANDARD TITLE: NONVA CONSULT DATE OF NOTE: NOV 09, 2018@15:38 ENTRY DATE: NOV 09, 2018@15:38:28 AUTHOR: ANAMARIA CEVALLOS EXP COSIGNER: URGENCY: STATUS: COMPLETED The following Non VA Care consult has been completed. See scanned document for report. NON VA Care Consult Results Orthopedics Comment: COMMUNITY CARE-ORTHO GENERAL/VIA HERIBERTO/08/01/2018 /nuno/ ANAMARIA CEVALLOS AMSA Signed: 11/09/2018 15:38 ANAMARIA CEVALLOS [facility]
--- OUTSIDE RECORDS SUMMARY | 2019-08-16 03:57 | XMS REPORT | Encounter Summary ---
Author Author Department [facility] JUAN MANUEL posey Organization Department of [facility] Address [address] [place] [id number] Phone Unavailable Care Team Providers Care Distribution Center Supervisor Name Role Phone BRITTANEY VILLEDA PCP [...] PART B Apr 13, 2007 PART B [id number] [phone] JUAN MANUEL MARTIN PATIENT MEDICARE (WNR) MEDICARE (M) PART B Apr 13, 2007 PART B [id number] [phone] JUAN MANUEL MARTIN PATIENT MEDICARE (WNR) MEDICARE (M) PART A Sep 10, 2005 PART A [id number] [id number] JUAN MANUEL MARTIN PATIENT MEDICARE (WNR) MEDICARE (M) PART A Sep 10, 2005 PART A [id number] JUAN MANUEL MARTIN PATIENT MEDICARE (WNR) MEDICARE (M) PART A Sep 10, 2005 PART A [id number] MARTIN,JUAN MANUEL PATIENT Selected Encounter This section includes the information on record at [place] for the Encounter. Date/Time Encounter Type Encounter Description Reason Provider Source Nov 02, 2018 09:00 AM Outpatient Encounter COMMUNITY CARE CONSULT [facility] IHE Encounter Template Text not used by [facility] Assessments - Encounter Diagnoses No Data Provided for This Section Plan of Treatment: Future Appointments (+ 6 months) and Future Tests (+/- 45 day s) The Plan of Treatment section includes future care activities for the patient fr om all [place] treatment facilities. This section includes future appointments and fu ture orders which are active, pending or scheduled. Future Appointments This section includes appointments that were scheduled t o occur 6 months from the date of the Encounter, up to a maximum of 20 appointme nts. The data comes from all [place] treatment facilities. Appointment Date/Time Appointment Type Appointment Facili ty Name Jan 02, 2019 08:30 AM AMBULATORY - NONE [facility] Jan 08, 2019 09:00 AM AMBULATORY - MEDICINE [facility] Jan 23, 2019 09:15 AM AMBULATORY - NONE [facility] Surgical Procedures: All associated to the [...] 02, 2018 ADVANCE DIRECTIVE DISCUSSION FLO KRUEGER [facility] Oct 17, 2000 ADVANCE DIRECTIVE EUNICE RODRIGUEZ [facility] VISN 15 Allergies and Adverse Reactions (ADRs): [...] Type Reaction(s) Severity Source No Known Allergies [facility] No Allergy Assessment on File [facility] Medications: VA dispensed (-15 months) and Non-VA Documented (Obtained Outside V A) Section Date Range: 1) prescriptions processed by a [place] pharmacy in the last 15 m ont, [...] may be a prescription from either the [place] or other providers that was filled outside the [place]. Or, it may be an over the [...] A DAY NEEDED 180 Jan 09, 2020 [id number] Apr 10, 2019 MAK VILLEDA ALBUTEROL SO4 0.083% INHL,3ML Discontinued USE 3 MLS IN NEBULIZER FOR INHALATION TWO TIMES A DAY NEEDED 180 Jan 27, 2019 [id number] Nov 01, 2018 BRITTANEY VENEGAS ALBUTEROL SO4 90MCG/ACTUAT (CFC-F) INHL,ORAL,6.7GM Active INHALE 2 PUFFS BY ORAL INHALATION TWO TIMES A DAY NEEDED - RINSE MOUTHPIECE FREQUENTLY TO PREVENT CLOGGING 2 Aug 30, 2019 [id number] Mar 18, 2019 BRITTANEY VILLEDA ALBUTEROL SO4 90MCG/ACTUAT (CFC-F) INHL,ORAL,6.7GM Discontin ued INHALE 2 PUFFS BY ORAL INHALATION TWO TIMES A DAY NEEDED - RINSE MOUTHPIECE FREQUENTLY TO PREVENT CLOGGING 2 Mar 27, 2019 [id number] Aug 30, 2018 BRITTANEY VILLEDA BUDESONIDE 80MCG/FORMOTEROL FUM 4.5MCG/SPRAY INHL,ORAL,10.2G M Active INHALE 2 PUFFS BY ORAL INHALATION TWO TIMES A DAY FOR BREATHING. SHAKE WELL. RINSE MOUTH AND SPIT AFTER EACH USE. 3 Jun 24, 2020 [id number] Jun 24, 2019 BRITTANEY VILLEDA BUDESONIDE 80MCG/FORMOTEROL FUM 4.5MCG/SPRAY INHL,ORAL,10.2G M Discontinued INHALE 2 PUFFS BY ORAL INHALATION TWO TIMES A DAY FOR BREATHING. SHAKE WELL. RINSE MOUTH AND SPIT AFTER EACH USE. 3 Dec 07, 2019 [id number] Mar 18, 2019 BRITTANEY VILLEDA FERROUS SO4 324MG TAB,EC Active TAKE ONE TABLET BY MOUTH TWO TIMES A DAY FOR IRON SUPPLEMENTATION. MAY TAKE WITH FOOD IF NOT TOLERATED ON EMPTY STOMACH 200 Jan 09, 2020 [id number] Apr 23, 2019 BRITTANEY VILLEDA FERROUS SO4 324MG TAB,EC Discontinued TAKE ONE TABLET BY MOUTH TWO TIMES A DAY FOR IRON SUPPLEMENTATION. MAY TAKE WITH FOOD IF NOT TOLERATED ON EMPTY STOMACH 200 May 02, 2019 [id number] Nov 14, 2018 BRITTANEY VILLEDA CBO C FOLIC ACID 1MG TAB Active TAKE ONE TABLET BY MOUTH ONCE A DAY 90 Nov 22, 2019 [id number] Mar 18, 2019 BRITTANEY VILLEDA FOLIC ACID 1MG TAB Discontinued TAKE ONE TABLET BY MOUTH ONCE A DAY 90 May 02, 2019 [id number] Sep 26, 2018 BRITTANEY VILLEDA [facility] GABAPENTIN 300MG CAP Discontinued TAKE 2 CAPSULES BY MOUTH FOUR TITO ES A DAY 720 Jan 27, 2019 [id number] Nov 14, 2018 BRITTANEY VILLEDA GABAPENTIN 400MG CAP Active TAKE 1 CAPSULE BY MOUTH THREE TITO ES A DAY 270 Dec 07, 2019 [id number] Mar 18, 2019 BRITTANEY VILLEDA HYDROCODONE 10MG/ACETAMINOPHEN 325MG TAB Non-VA TAKE ONE TABLET BY MOUTH FOUR TIMES A DAY Non-VA Documented by: RAMY TRENT nted at: STEFANI SPAIN LISINOPRIL 10MG TAB Discontinued TAKE ONE-HALF TABLET BY MOUTH EVERY MORNING FOR HEART OR HIGH BLOOD PRESSURE 15 Jun 01, 2019 [id number] Jun 02, 2018 BRITTANEY VILLEDA LOSARTAN 25MG TAB Active TAKE ONE TABLET BY MOUTH ONCE A DAY FOR BLOOD PRESSURE 90 Jan 09, 2020 [id number] Apr 23, 2019 BRITTANEY VILLEDA C LOSARTAN 25MG TAB Discontinued TAKE ONE TABLET BY M OUTH ONCE A DAY FOR BLOOD PRESSURE 90 July 13, 2019 [id number] Nov 14, 2018 TIERRA KWONG [facility] MELOXICAM 15MG TAB TAKE ONE TABLET BY M OUTH ONCE A DAY FOR PAIN OR INFLAMMATION. 90 Jun 01, 2019 [id number] Mar 18, 2019 BRITTANEY VILLEDA METOPROLOL TARTRATE 25MG TAB Active TAKE ONE-SMITH LF TABLET BY MOUTH TWO TIMES A DAY FOR HEART/BLOOD PRESSURE. TAKE WITH OR IMMEDIATELY FOLLOWING FOOD. 90 Jan 09, 2020 [id number] Apr 23, 2019 BRITTANEY VILLEDA METOPROLOL TARTRATE 25MG TAB Discontinued TAKE ONE-SMITH LF TABLET BY MOUTH TWO TIMES A DAY FOR HEART/BLOOD PRESSURE. TAKE WITH OR IMMEDIATELY FOLLOWING FOOD. 90 July 13, 2019 [id number] Nov 14, 2018 TIERRA KWONG [facility] SIMVASTATIN 40MG TAB Active TAKE ONE-HALF TABLE T BY MOUTH AT BEDTIME FOR CHOLESTEROL - REPORT ANY UNEXPLAINED MUSCLE PAIN OR WEAKNESS TO YOUR PROVIDER 45 Sep 27, 2019 [id number] Jun 24, 2019 BRITTANEY VILLEDA SIMVASTATIN 40MG TAB Discontinued TAKE ONE-HALF TABLE T BY MOUTH AT BEDTIME FOR CHOLESTEROL - REPORT ANY UNEXPLAINED MUSCLE PAIN OR WEAKNESS TO YOUR PROVIDER 45 Sep 23, 2018 [id number] Jul 05, 2018 RONAL,BRITTANEY B KO CBO C TAMSULOSIN HCL 0.4MG CAP Discontinued TAKE ONE CAPSUL E BY MOUTH ONCE A DAY FOR PROSTATE. TAKE AT THE SAME TIME EACH DAY WITH FOOD. 90 Jun 17 9 [id number] Jun 14, 2018 BRITTANEY VILLEDA TAMSULOSIN HCL 0.4MG CAP TAKE ONE CAPSUL E BY MOUTH ONCE A DAY FOR PROSTATE. TAKE AT THE SAME TIME EACH DAY WITH FOOD. 90 August 01 0 [id number] Jun 24, 2019 BRITTANEY VILLEDA TIOTROPIUM 2.5MCG/ACTUAT INHL,ORAL,60D,4GM Active INHALE 2 PUFFS BY ORAL INHALATION ONCE A DAY FOR BREATHING. DON'T USE WITH IPRATROPIUM - REPLACES ADVAIR. 3 Jun 24, 2020 [id number] Jun 24, 2019 BRITTANEY VILLEDA [facility] TIOTROPIUM 2.5MCG/ACTUAT INHL,ORAL,60D,4GM Discontinued INHALE 2 PUFFS BY ORAL INHALATION ONCE A DAY FOR BREATHING. DON'T USE WITH IPRATROPIUM - REPLACES ADVAIR. 3 Oct 13, 2019 [id number] Mar 18, 2019 BRITTANEY VILLEDA [facility] Problems [...] ent(s) Provider Source Actinic keratosis (SNOMED CT 271322674) Active 702.0 BRITTANEY VILLEDA [facility] Alcohol Dependence * (ICD-9-CM 303.90/303.91) Active 303.[address] [facility] Anemia Active 285.[address] [facility] ANGINA PECTORIS NEC/NOS 413.9 Active 413.9 ALEXANDRA RUELAS [facility] Anxiety Disorder Active 300.00 AURELIANO LINCOLN MD [facility] Benign Neoplasm Skin Head, Neck, Scalp Active 216.[address] [facility] CABG Active 799.9 Oct 05, 2006 E ntered By: SATHISH SCOTT Comment: feb, 4-vessel [facility] Chest discomfort (SNOMED CT 850926721) Active 786.59 BRITTANEY VILLEDA [facility] Chronic airway obstruction, Not Elsewhere Classified Active 496. AURELIANO LINCOLN MD [facility] Chronic Low Back Pain Active 724.2 AURELIANO LINCOLN MD [facility] COPD * (ICD-9-CM 496.) Active 496. Robin SCOTT [facility] Coronary Artery Disease * (ICD-9-CM 414.9) Active 414.9 ALEXANDRA KWONG [facility] Coronary Atherosclerosis of [place] Coronary Vessel Active 414.01 August 03, 2010 Entered By: AURELIANO LINCOLN MD Comment: Bypass surgery AURELIANO LINCOLN MD [facility] Disorder of shoulder (SNOMED CT 397577877) Active 719.91 BRITTANEY VILLEDA [facility] Essential Hypertension Active 401.9 AURELIANO LINCOLN MD [facility] Hyperlipidemia Active 272.4 SATHISH SCOTT [facility] HYPERTENSION NOS 401.9 Active 401.9 ALEXANDRA KWONG [facility] Impotence (SNOMED CT 976592511) Active 302.72 BRITTANEY VILLEDA [facility] 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 AURELIANO LIU MD [facility] Marijuana Dependence unspecified Active 304.30 AURELIANO LINCOLN MD [facility] Microscopic Hematuria (ICD-9-CM 599.72) Active 599.72 B[facility]LY SALINAS [facility] Other and unspecified hyperlipidemia Active 272.4 AURELIANO LINCOLN MD [facility] Other, mixed, or unspecified drug abuse, continuous use Active 30 5.91 Jan 30, 2009 Entered By: SATHISH SCOTT Comment: urine drug screen positive for opitates and marijuannaMay 2009 Entered By: SATHISH SCOTT Comment: buying hydrocodone "off the street" [facility] Pain in joint involving ankle and foot (ICD-9-CM 719.47) Active 719 .47 [facility] Papular eruption (SNOMED CT 319317169) Active 709.8 BRITTANEY VILLEDA [facility] Personal History of Noncompliance with M edical Treatment, Presenting Hazards to Active V15.81 SATHISH SCOTT [facility] Tobacco dependence syndrome (SNOMED CT 42532294) Active [id number] July 24, 2009 Entered By: SATHISH SCOTT Comment: one ppd YUMI AVILA [facility] Transient Ischemic Attack * (ICD-9-CM 435.9) Active 435.9 SATHISH SCOTT [facility] ANIETY STAT NOS 300.00 Inactive 300.00 Jan 05, 2005 ALEXANDRA FLOREZ [facility] Bronchitis * (ICD-9-CM 490.) Inactive 490. Jan 05, 2005 BRITTANEY VILLEDA [facility] Postsurgical Aortocoronary Bypass Status (ICD-9-CM V45.81) Inactive V45.81 Oct 05, 2006 SATHISH SCOTT [facility] Radiology Reports: +/- 30 days of the encounter No Data Provided for This Section Pathology Reports: +/- 30 days of the encounter No Data Provided for This Section Encounter Notes: All associated encounter notes No Data Provided for This Section
--- OUTSIDE RECORDS SUMMARY | 2019-08-16 03:57 | XMS REPORT | Encounter Summary ---
Author Author [facility] JUAN MANUEL posey Organization Department of [facility] Address [address] [place] [id number] Phone Unavailable Care Team Providers Care Funeral Director/Embalmer Name Role Phone BRITTANEY VILLEDA PCP Unavailable [...] PART B Apr 13, 2007 PART B [id number] [phone] MARTIN,GARY PATIENT MEDICARE (WNR) MEDICARE (M) PART B Apr 13, 2007 PART B [id number] JUAN MANUEL MARTIN PATIENT MEDICARE (WNR) MEDICARE (M) PART A Sep 10, 2005 PART A [id number] [phone] MARTIN,JUAN MANUEL PATIENT MEDICARE (WNR) MEDICARE (M) PART A Sep 10, 2005 PART A [id number] MARTIN,GARY PATIENT MEDICARE (WNR) MEDICARE (M) PART A Sep 10, 2005 PART A [id number] [phone] JUAN MANUEL MARTIN PATIENT Selected Encounter This section includes the information on record at [place] for the Encounter. Date/Time Encounter Type Encounter Description Reason Provider Source Nov 02, 2018 12:00 AM Outpatient Encounter COMMUNITY CARE CONSULT [facility], VISN 15 IHE Encounter Template Text [...] 02, 2019 08:30 AM AMBULATORY [facility] NONE [facility] Jan 08, 2019 09:00 AM AMBULATORY - MEDICINE [facility] Jan 23, 2019 09:15 AM AMBULATORY - NONE [facility] Surgical Procedures: All associated to the [...] 02, 2018 ADVANCE DIRECTIVE DISCUSSION FLO KRUEGER [facility] Oct 17, 2000 ADVANCE DIRECTIVE EUNICE RODRIGUEZ [facility], VISN 15 Allergies and Adverse Reactions [...] Type Reaction(s) Severity Source No Known Allergies [facility] No Allergy Assessment on File [facility] Medications: VA dispensed (-15 months) [...] A DAY NEEDED 180 Jan 09, 2020 [id number] Apr 10, 2019 MAK VILLEDA ALBUTEROL SO4 0.083% INHL,3ML Discontinued USE 3 MLS IN NEBULIZER FOR INHALATION TWO TIMES A DAY NEEDED 180 Jan 27, 2019 [id number] Nov 01, 2018 BRITTANEY VENEGAS ALBUTEROL SO4 90MCG/ACTUAT (CFC-F) INHL,ORAL,6.7GM Active INHALE 2 PUFFS BY ORAL INHALATION TWO TIMES A DAY NEEDED - RINSE MOUTHPIECE FREQUENTLY TO PREVENT CLOGGING 2 Aug 30, 2019 [id number] Mar 18, 2019 BRITTANEY VILLEDA ALBUTEROL SO4 90MCG/ACTUAT (CFC-F) INHL,ORAL,6.7GM Discontin ued INHALE 2 PUFFS BY ORAL INHALATION TWO TIMES A DAY NEEDED - RINSE MOUTHPIECE FREQUENTLY TO PREVENT CLOGGING 2 Mar 27, 2019 [id number] Aug 30, 2018 BRITTANEY VILLEDA BUDESONIDE 80MCG/FORMOTEROL FUM 4.5MCG/SPRAY INHL,ORAL,10.2G M Active INHALE 2 PUFFS BY ORAL INHALATION TWO TIMES A DAY FOR BREATHING. SHAKE WELL. RINSE MOUTH AND SPIT AFTER EACH USE. 3 Jun 24, 2020 [id number] Jun 24, 2019 BRITTANEY VILLEDA BUDESONIDE 80MCG/FORMOTEROL FUM 4.5MCG/SPRAY INHL,ORAL,10.2G M Discontinued INHALE 2 PUFFS BY ORAL INHALATION TWO TIMES A DAY FOR BREATHING. SHAKE WELL. RINSE MOUTH AND SPIT AFTER EACH USE. 3 Dec 07, 2019 [id number] Mar 18, 2019 BRITTANEY VILLEDA FERROUS SO4 324MG TAB,EC Active TAKE ONE TABLET BY MOUTH TWO TIMES A DAY FOR IRON SUPPLEMENTATION. MAY TAKE WITH FOOD IF NOT TOLERATED ON EMPTY STOMACH 200 Jan 09, 2020 [id number] Apr 23, 2019 BRITTANEY VILLEDA FERROUS SO4 324MG TAB,EC Discontinued TAKE ONE TABLET BY MOUTH TWO TIMES A DAY FOR IRON SUPPLEMENTATION. MAY TAKE WITH FOOD IF NOT TOLERATED ON EMPTY STOMACH 200 May 02, 2019 [id number] Nov 14, 2018 BRITTANEY VILLEDA CBO C FOLIC ACID 1MG TAB Active TAKE ONE TABLET BY MOUTH ONCE A DAY 90 Nov 22, 2019 [id number] Mar 18, 2019 BRITTANEY VILLEDA FOLIC ACID 1MG TAB Discontinued TAKE ONE TABLET BY MOUTH ONCE A DAY 90 May 02, 2019 [id number] Sep 26, 2018 BRITTANEY VILLEDA GABAPENTIN 300MG CAP Discontinued TAKE 2 CAPSULES BY MOUTH FOUR TITO ES A DAY 720 Jan 27, 2019 [id number] Nov 14, 2018 BRITTANEY VILLEDA GABAPENTIN 400MG CAP Active TAKE 1 CAPSULE BY MOUTH THREE TITO ES A DAY 270 Dec 07, 2019 [id number] Mar 18, 2019 BRITTANEY VILLEDA HYDROCODONE 10MG/ACETAMINOPHEN 325MG TAB Non-VA TAKE ONE TABLET BY MOUTH FOUR TIMES A DAY Non-VA Documented by: RAMY TRENT nted at: STEFANI SPAIN LISINOPRIL 10MG TAB Discontinued TAKE ONE-HALF TABLET BY MOUTH EVERY MORNING FOR HEART OR HIGH BLOOD PRESSURE 15 Jun 01, 2019 [id number] Jun 02, 2018 BRITTANEY VILLEDA [facility] LOSARTAN 25MG TAB Active TAKE ONE TABLET BY MOUTH ONCE A DAY FOR BLOOD PRESSURE 90 Jan 09, 2020 [id number] Apr 23, 2019 BRITTANEY VILLEDA C LOSARTAN 25MG TAB Discontinued TAKE ONE TABLET BY M OUTH ONCE A DAY FOR BLOOD PRESSURE 90 July 13, 2019 [id number] Nov 14, 2018 [facility] MELOXICAM 15MG TAB TAKE ONE TABLET BY M OUTH ONCE A DAY FOR PAIN OR INFLAMMATION. 90 Jun 01, 2019 [id number] Mar 18, 2019 BRITTANEY VILLEDA METOPROLOL TARTRATE 25MG TAB Active TAKE ONE-SMITH LF TABLET BY MOUTH TWO TIMES A DAY FOR HEART/BLOOD PRESSURE. TAKE WITH OR IMMEDIATELY FOLLOWING FOOD. 90 Jan 09, 2020 [id number] Apr 23, 2019 BRITTANEY VILLEDA METOPROLOL TARTRATE 25MG TAB Discontinued TAKE ONE-SMITH LF TABLET BY MOUTH TWO TIMES A DAY FOR HEART/BLOOD PRESSURE. TAKE WITH OR IMMEDIATELY FOLLOWING FOOD. 90 July 13, 2019 [id number] Nov 14, 2018 TIERRA KWONG [facility] SIMVASTATIN 40MG TAB Active TAKE ONE-HALF TABLE T BY MOUTH AT BEDTIME FOR CHOLESTEROL - REPORT ANY UNEXPLAINED MUSCLE PAIN OR WEAKNESS TO YOUR PROVIDER 45 Sep 27, 2019 [id number] Jun 24, 2019 BRITTANEY VILLEDA C SIMVASTATIN 40MG TAB Discontinued TAKE ONE-HALF TABLE T BY MOUTH AT BEDTIME FOR CHOLESTEROL - REPORT ANY UNEXPLAINED MUSCLE PAIN OR WEAKNESS TO YOUR PROVIDER 45 Sep 23, 2018 [id number] Jul 05, 2018 RONAL,BRITTANEY B KO CBO C TAMSULOSIN HCL 0.4MG CAP Discontinued TAKE ONE CAPSUL E BY MOUTH ONCE A DAY FOR PROSTATE. TAKE AT THE SAME TIME EACH DAY WITH FOOD. 90 Jun 17, 9 [id number] Jun 14, 2018 BRITTANEY VILLEDA TAMSULOSIN HCL 0.4MG CAP TAKE ONE CAPSUL E BY MOUTH ONCE A DAY FOR PROSTATE. TAKE AT THE SAME TIME EACH DAY WITH FOOD. 90 August 01 0 [id number] Jun 24, 2019 BRITTANEY VILLEDA TIOTROPIUM 2.5MCG/ACTUAT INHL,ORAL,60D,4GM Active INHALE 2 PUFFS BY ORAL INHALATION ONCE A DAY FOR BREATHING. DON'T USE WITH IPRATROPIUM - REPLACES ADVAIR. 3 Jun 24, 2020 [id number] Jun 24, 2019 BRITTANEY VILLEDA CBTERRENCE TIOTROPIUM 2.5MCG/ACTUAT INHL,ORAL,60D,4GM Discontinued INHALE 2 PUFFS BY ORAL INHALATION ONCE A DAY FOR BREATHING. DON'T USE WITH IPRATROPIUM - REPLACES ADVAIR. 3 Oct 13, 2019 [id number] Mar 18, 2019 BRITTANEY VILLEDA [facility] Problems [...] ent(s) Provider Source Actinic keratosis (SNOMED CT 905000019) Active 702.0 BRITTANEY VILLEDA [facility] Alcohol Dependence * (ICD-9-CM 303.90/303.91) Active 303.90 ALEXANDRA KWONG [facility] Anemia Active 285.9 SATHISH SCOTT [facility] ANGINA PECTORIS NEC/NOS 413.9 Active 413.9 ALEXANDRA RUELAS [facility] Anxiety Disorder Active 300.00 AURELIANO LINCOLN MD [facility] Benign Neoplasm Skin Head, Neck, Scalp Active 216.4 RENALDO DACOSTA [facility] CABG Active 799.9 Oct 05, 2006 E ntered By: SATHISH SCOTT Comment: feb, 4-vessel SATHISH SCOTT [facility] Chest discomfort (SNOMED CT 997834858) Active 786.59 BRITTANEY VILLEDA [facility] Chronic airway obstruction, Not Elsewhere Classified Active 496. AURELIANO LINCOLN MD [facility] Chronic Low Back Pain Active 724.2 AURELIANO LINCOLN MD [facility] COPD * (ICD-9-CM 496.) Active 496. Robin SCOTT [facility] Coronary Artery Disease * (ICD-9-CM 414.9) Active 414.9 ALEXANDRA KWONG [facility] Coronary Atherosclerosis of [place] Coronary Vessel Active 414.01 August 03, 2010 Entered By: AURELIANO LINCOLN MD Comment: Bypass surgery AURELIANO LINCOLN MD [facility] Disorder of shoulder (SNOMED CT 599270307) Active 719.91 BRITTANEY VILLEDA [facility] Essential Hypertension Active 401.9 AURELIANO LINCOLN MD [facility] Hyperlipidemia Active 272.4 SATHISH SCOTT PREETHI ROSA [facility] HYPERTENSION NOS 401.9 Active 401.9 ALEXANDRA KWONG [facility] Impotence (SNOMED CT 156969740) Active 302.72 BRITTANEY VILLEDA [facility] 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 AURELIANO LIU MD [facility] Marijuana Dependence unspecified Active 304.30 AURELIANO LINCOLN MD [facility] Microscopic Hematuria (ICD-9-CM 599.72) Active 599.72 BEVERLY SALINAS [facility] Other and unspecified hyperlipidemia Active 272.4 AURELIANO LINCOLN MD [facility] Other, mixed, or unspecified drug abuse, continuous use Active 30 5.91 Jan 30, 2009 Entered By: SATHISH SCOTT Comment: urine drug screen positive for opitates and marijuannaMay 2009 Entered By: SATHISH SCOTT Comment: buying hydrocodone "off the street" SATHISH SCOTT [facility] Pain in joint involving ankle and foot (ICD-9-CM 719.47) Active 719 .47 [facility] Papular eruption (SNOMED CT 301513135) Active 709.8 BRITTANEY VILLEDA [facility] Personal History of Noncompliance with M edical Treatment, Presenting Hazards to Active V15.81 [facility]ISH SCOTT [facility] Tobacco dependence syndrome (SNOMED CT 36396553) Active [id number] July 24, 2009 Entered By: SATHISH SCOTT Comment: one YUMI Gibbons [facility] Transient Ischemic Attack * (ICD-9-CM 435.9) Active 435.9 SATHISH SCOTT [facility] ANIETY STAT NOS 300.00 Inactive 300.00 Jan 05, 2005 ALEXANDRA FLOREZ [facility] Bronchitis * (ICD-9-CM 490.) Inactive 490. Jan 05, 2005 BRITTANEY VILLEDA [facility] Postsurgical Aortocoronary Bypass Status (ICD-9-CM V45.81) Inactive V45.81 Oct 05, 2006 SATHISH SCOTT [facility] Radiology Reports: +/- 30 days of the encounter No Data Provided for This Section Pathology Reports: +/- 30 days of the encounter No Data Provided for This Section Encounter Notes: All associated encounter notes This section contains the clinical notes associated to the Encounter. Date/Time Encounter Note(s) Provider Source Nov 02, 2018 12:00 AM SCANNED REPORT: LOCAL TITLE: [place]-SCANNED FEE CONSULT STANDARD TITLE: SCANNED REPORT DATE OF NOTE: NOV 02, 2018 ENTRY DATE: NOV 23, 2018@12:47:24 AUTHOR: SULMA PLEITEZ EXP COSIGNER: URGENCY: STATUS: COMPLETED COMMUNITY CARE-[facility]UL[facility] REHAB/[facility]/11/02/18 Scanned document attached to this note /nuno/ SULMA PLEITEZ Signed: 11/23/2018 12:47 SULMA PLEITEZ [facility] Nov 02, 2018 12:00 AM SCANNED REPORT: LOCAL TITLE: [place]-SCANNED FEE CONSULT STANDARD TITLE: SCANNED REPORT DATE OF NOTE: NOV 02, 2018 ENTRY DATE: JAN 25, 2019@08:12:08 AUTHOR: STEPHAN ROBLES EXP COSIGNER: URGENCY: STATUS: [facility]/11/02/18 Scanned document attached to this note /es/ STEPHAN ROBLES [facility] Signed: 01/25/2019 08:12 STEPHAN ROBLES [facility]
--- OUTSIDE RECORDS SUMMARY | 2019-08-16 03:58 | XMS REPORT | Encounter Summary ---
Author Author [facility] JUAN MANUEL posey Organization Department of [facility] Address [address] [place] [phone] Phone Unavailable Care Team Providers Care Chief Substation Operator Name Role Phone BRITTANEY VILLEDA PCP [...] PART B Apr 13, 2007 PART B [id number] [phone] MARTIN,GARY PATIENT MEDICARE (WNR) MEDICARE (M) PART B Apr 13, 2007 PART B [id number] [phone] JUAN MANUEL MARTIN PATIENT MEDICARE (WNR) MEDICARE (M) PART A Sep 10, 2005 PART A [id number] [phone] MARTINJUAN MANUEL PATIENT MEDICARE (WNR) MEDICARE (M) PART A Sep 10, 2005 PART A [id number] JUAN MANUEL MARTIN PATIENT MEDICARE (WNR) MEDICARE (M) PART A Sep 10, 2005 PART A [id number] JUAN MANUEL MARTIN PATIENT Selected Encounter This section includes the information on record at [place] for the Encounter. Date/Time Encounter Type Encounter Description Reason Provider Source Oct 22, 2018 02:32 PM Outpatient Encounter COMMUNITY CARE CONSULT [facility] 15 IHE Encounter Template Text not used by [place] Assessments - Encounter Diagnoses No Data Provided for This Section Plan of Treatment: Future Appointments (+ 6 months) and Future Tests (+/- 45 day s) The Plan of Treatment section includes future care activities for the patient fr om all [place] treatment facilities. This section includes future appointments and fu ture orders which are active, pending or scheduled. Future Appointments This section includes appointments that were scheduled t o occur 6 months from the date of the Encounter, up to a maximum of 20 appointme nts. The data comes from all [place] treatment facilities. Appointment Date/Time Appointment Type Appointment Facili ty Name Nov 02, 2018 09:00 AM AMBULATORY - MEDICINE [facility] Jan 02, 2019 08:30 AM AMBULATORY - NONE [facility] Jan 08, 2019 09:00 AM AMBULATORY - MEDICINE [facility] Jan 23, 2019 09:15 AM AMBULATORY - NONE [facility] Surgical Procedures: All associated to the [...] of a patient's completed or amen ded [place] Advance and Rescinded Directives. The entries below indicate that a direc tive exists for the patient, but an actual copy is not included with this docume nt. The data comes from all [place] facilities. Date Advance Directives Provider Source Jan 02, 2018 ADVANCE DIRECTIVE DISCUSSION FLO KRUEGER [facility] Oct 17, 2000 ADVANCE DIRECTIVE EUNICE RODRIGUEZ [facility] 15 Allergies and Adverse Reactions (ADRs): All historical and current Section Date Range: From patient's date of to the date document was create d. This section includes Allergies and Adverse Reactions (ADR s) on record with [facility] for the patient. The data comes from a ll [place] treatment facilities. It does not list Allergies/ADRs that were removed or entered in error. Some allergies/ADRs may be reported in t he Immunization section. Allergen Event Date Event Type Reaction(s) Severity Source No Known Allergies [facility] No Allergy Assessment on File JEOVANNY MORGAN Medications: VA dispensed (-15 months) and Non-VA Documented (Obtained Outside V A) Section Date Range: 1) prescriptions processed by a VA pharmacy in the last 15 m ont, and 2) all medications recorded in the [place] medical record as "non-VA medic ations". Pharmacy terms refer to [place] pharmacy's work on prescriptions. [place] patient s are advised to take their medications as instructed by their health care team. The data comes from all [place] treatment facilities. Glossary of Pharmacy Terms:Active = A prescription that can be filled at the local [place] pharmacy.Active: On Hold = An active prescription that will not be filled until pharmacy resolves the issue.Active: Susp = An active prescription that is not scheduled to be filled yet.Clinic Order = A medication received during a visit to a [place] clinic or emergency department (currently not available).Discontinued [...] may be a prescription from either the [place] or other providers that was filled outside the [place]. Or, it may be an over the [...] A DAY NEEDED 180 Jan 09, 2020 [id number] Apr 10, 2019 MAK VILLEDA ALBUTEROL SO4 0.083% INHL,3ML Discontinued USE 3 MLS IN NEBULIZER FOR INHALATION TWO TIMES A DAY NEEDED 180 Jan 27, 2019 [id number] Nov 01, 2018 BRITTANEY VENEGAS ALBUTEROL SO4 90MCG/ACTUAT (CFC-F) INHL,ORAL,6.7GM Active INHALE 2 PUFFS BY ORAL INHALATION TWO TIMES A DAY NEEDED - RINSE MOUTHPIECE FREQUENTLY TO PREVENT CLOGGING 2 Aug 30, 2019 [id number] Mar 18, 2019 BRITTANEY VILLEDA ALBUTEROL SO4 90MCG/ACTUAT (CFC-F) INHL,ORAL,6.7GM Discontin ued INHALE 2 PUFFS BY ORAL INHALATION TWO TIMES A DAY NEEDED - RINSE MOUTHPIECE FREQUENTLY TO PREVENT CLOGGING 2 Mar 27, 2019 [id number] Aug 30, 2018 BRITTANEY VILLEDA BUDESONIDE 80MCG/FORMOTEROL FUM 4.5MCG/SPRAY INHL,ORAL,10.2G M Active INHALE 2 PUFFS BY ORAL INHALATION TWO TIMES A DAY FOR BREATHING. SHAKE WELL. RINSE MOUTH AND SPIT AFTER EACH USE. 3 Jun 24, 2020 [id number] Jun 24, 2019 BRITTANEY VILLEDA BUDESONIDE 80MCG/FORMOTEROL FUM 4.5MCG/SPRAY INHL,ORAL,10.2G M Discontinued INHALE 2 PUFFS BY ORAL INHALATION TWO TIMES A DAY FOR BREATHING. SHAKE WELL. RINSE MOUTH AND SPIT AFTER EACH USE. 3 Dec 07, 2019 [id number] Mar 18, 2019 BRITTANEY VILLEDA FERROUS SO4 324MG TAB,EC Active TAKE ONE TABLET BY MOUTH TWO TIMES A DAY FOR IRON SUPPLEMENTATION. MAY TAKE WITH FOOD IF NOT TOLERATED ON EMPTY STOMACH 200 Jan 09, 2020 [id number] Apr 23, 2019 BRITTANEY VILLEDA FERROUS SO4 324MG TAB,EC Discontinued TAKE ONE TABLET BY MOUTH TWO TIMES A DAY FOR IRON SUPPLEMENTATION. MAY TAKE WITH FOOD IF NOT TOLERATED ON EMPTY STOMACH 200 May 02, 2019 [id number] Nov 14, 2018 BRITTANEY VILLEDA CBO C FOLIC ACID 1MG TAB Active TAKE ONE TABLET BY MOUTH ONCE A DAY 90 Nov 22, 2019 [id number] Mar 18, 2019 BRITTANEY VILLEDA FOLIC ACID 1MG TAB Discontinued TAKE ONE TABLET BY MOUTH ONCE A DAY 90 May 02, 2019 [id number] Sep 26, 2018 BRITTANEY VILLEDA GABAPENTIN 300MG CAP Discontinued TAKE 2 CAPSULES BY MOUTH FOUR TITO ES A DAY 720 Jan 27, 2019 [id number] Nov 14, 2018 BRITTANEY VILLEDA GABAPENTIN 400MG CAP Active TAKE 1 CAPSULE BY MOUTH THREE TITO ES A DAY 270 Dec 07, 2019 [id number] Mar 18, 2019 BRITTANEY VILLEDA HYDROCODONE 10MG/ACETAMINOPHEN 325MG TAB Non-VA TAKE ONE TABLET BY MOUTH FOUR TIMES A DAY Non-VA Documented by: RAMY TRENT nted at: STEFANI SPAIN LISINOPRIL 10MG TAB Discontinued TAKE ONE-HALF TABLET BY MOUTH EVERY MORNING FOR HEART OR HIGH BLOOD PRESSURE 15 Jun 01, 2019 [id number] Jun 02, 2018 BRITTANEY VILLEDA LOSARTAN 25MG TAB Active TAKE ONE TABLET BY MOUTH ONCE A DAY FOR BLOOD PRESSURE 90 Jan 09, 2020 [id number] Apr 23, 2019 BRITTANEY VILLEDA C LOSARTAN 25MG TAB Discontinued TAKE ONE TABLET BY M OUTH ONCE A DAY FOR BLOOD PRESSURE 90 July 13, 2019 [id number] Nov 14, 2018 TIERRA KWONG [facility] MELOXICAM 15MG TAB TAKE ONE TABLET BY M OUTH ONCE A DAY FOR PAIN OR INFLAMMATION. 90 Jun 01, 2019 [id number] Mar 18, 2019 BRITTANEY VILLEDA METOPROLOL TARTRATE 25MG TAB Active TAKE ONE-SMITH LF TABLET BY MOUTH TWO TIMES A DAY FOR HEART/BLOOD PRESSURE. TAKE WITH OR IMMEDIATELY FOLLOWING FOOD. 90 Jan 09, 2020 [id number] Apr 23, 2019 BRITTANEY VILLEDA METOPROLOL TARTRATE 25MG TAB Discontinued TAKE ONE-SMITH LF TABLET BY MOUTH TWO TIMES A DAY FOR HEART/BLOOD PRESSURE. TAKE WITH OR IMMEDIATELY FOLLOWING FOOD. 90 July 13, 2019 [id number] Nov 14, 2018 TIERRA KWONG [facility] SIMVASTATIN 40MG TAB Active TAKE ONE-HALF TABLE T BY MOUTH AT BEDTIME FOR CHOLESTEROL - REPORT ANY UNEXPLAINED MUSCLE PAIN OR WEAKNESS TO YOUR PROVIDER 45 Sep 27, 2019 [id number] Jun 24, 2019 BRITTANEY VILLEDA C SIMVASTATIN 40MG TAB Discontinued TAKE ONE-HALF TABLE T BY MOUTH AT BEDTIME FOR CHOLESTEROL - REPORT ANY UNEXPLAINED MUSCLE PAIN OR WEAKNESS TO YOUR PROVIDER 45 Sep 23, 2018 [id number] Jul 05, 2018 BRITTANEY VILLEDAONS [facility] TAMSULOSIN HCL 0.4MG CAP Discontinued TAKE ONE CAPSUL E BY MOUTH ONCE A DAY FOR PROSTATE. TAKE AT THE SAME TIME EACH DAY WITH FOOD. 90 Jun 17 9 [id number] Jun 14, 2018 [facility] TAMSULOSIN HCL 0.4MG CAP TAKE ONE CAPSUL E BY MOUTH ONCE A DAY FOR PROSTATE. TAKE AT THE SAME TIME EACH DAY WITH FOOD. 90 August 01 0 [id number] Jun 24, 2019 BRITTANEY VILLEDA [facility] TIOTROPIUM 2.5MCG/ACTUAT INHL,ORAL,60D,4GM Active INHALE 2 PUFFS BY ORAL INHALATION ONCE A DAY FOR BREATHING. DON'T USE WITH IPRATROPIUM - REPLACES ADVAIR. 3 Jun 24, 2020 [id number] Jun 24, 2019 BRITTANEY VILLEDA [facility] TIOTROPIUM 2.5MCG/ACTUAT INHL,ORAL,60D,4GM Discontinued INHALE 2 PUFFS BY ORAL INHALATION ONCE A DAY FOR BREATHING. DON'T USE WITH IPRATROPIUM - REPLACES ADVAIR. 3 Oct 13, 2019 [id number] Mar 18, 2019 BRITTANEY VILLEDA PARS [facility] Problems (Conditions): All historical and current Section Date Range: From patient's date of to the date document was create d. This section includes a list of Problems (Conditions) know n to [place] for the patient. It includes both active and inacti ve problems (conditions). The data comes from all [place] treatment facilities. Problem Status Problem Code Date of Onset Date of Resolution Comm ent(s) Provider Source Actinic keratosis (SNOMED CT 547451078) Active 702.0 BRITTANEY VILLEDA [facility] Alcohol Dependence * (ICD-9-CM 303.90/303.91) Active 303.90 ALEXANDRA KWONG [facility] Anemia Active 285.9 [facility] ANGINA PECTORIS NEC/NOS 413.9 Active 413.9 ALEXANDRA RUELAS [facility] Anxiety Disorder Active 300.00 AURELIANO LINCOLN MD [facility] Benign Neoplasm Skin Head, Neck, Scalp Active 216.4 [facility] CABG Active 799.9 Oct 05, 2006 E ntered By: SATHISH SCOTT Comment: feb, 4-vessel [facility] Chest discomfort (SNOMED CT 277036812) Active 786.59 BRITTANEY VILLEDA [facility] Chronic airway obstruction, Not Elsewhere Classified Active 496. AURELIANO LINCOLN MD [facility] Chronic Low Back Pain Active 724.2 AURELIANO LINCOLN MD [facility] COPD * (ICD-9-CM 496.) Active 496. Robin [facility] Coronary Artery Disease * (ICD-9-CM 414.9) Active 414.9 ALEXANDRA KWONG [facility] Coronary Atherosclerosis of [place] Coronary Vessel Active 414.01 August 03, 2010 Entered By: AURELIANO LINCOLN MD Comment: Bypass surgery AURELIANO LINCOLN MD [facility] Disorder of shoulder (SNOMED CT 217042111) Active 719.91 BRITTANEY VILLEDA [facility] Essential Hypertension Active 401.9 AURELIANO LINCOLN MD [facility] Hyperlipidemia Active 272.4 SATHISH SCOTT [facility] HYPERTENSION NOS 401.9 Active 401.9 ALEXANDRA KWONG [facility] Impotence (SNOMED CT 573769057) Active 302.72 BRITTANEY VILLEDA [facility] 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 AURELIANO LIU MD [facility] Marijuana Dependence unspecified Active 304.30 AURELIANO LINCOLN MD [facility] Microscopic Hematuria (ICD-9-CM 599.72) Active 599.72 [facility] Other and unspecified hyperlipidemia Active 272.4 AURELIANO LINCOLN MD [facility] Other, mixed, or unspecified drug abuse, continuous use Active 30 5.91 Jan 30, 2009 Entered By: SATHISH SCOTT Comment: urine drug screen positive for opitates and marijuannaMay 2009 Entered By: SATHISH SCOTT Comment: buying hydrocodone "off the street" [facility] Pain in joint involving ankle and foot (ICD-9-CM 719.47) Active 719 .47 [facility] Papular eruption (SNOMED CT 926440273) Active 709.8 BRITTANEY VILLEDA [facility] Personal History of Noncompliance with M edical Treatment, Presenting Hazards to Active V15.81 [facility]ISH SCOTT [facility] Tobacco dependence syndrome (SNOMED CT 62294758) Active [id number] July 24, 2009 Entered By: SATHISH SCOTT Comment: [facility] YUMI AVILA [facility] Transient Ischemic Attack * (ICD-9-CM 435.9) Active 435.9 [facility]ISH SCOTT [facility] ANIETY STAT NOS 300.00 Inactive 300.00 Jan 05, 2005 ALEXANDRA FLOREZ [facility] Bronchitis * (ICD-9-CM 490.) Inactive 490. Jan 05, 2005 BRITTANEY VILLEDA [facility] Postsurgical Aortocoronary Bypass Status (ICD-9-CM V45.81) Inactive V45.81 Oct 05, 2006 SATHISH SCOTT [facility] Radiology Reports: +/- 30 days of the encounter No Data Provided for This Section Pathology Reports: +/- 30 days of the encounter No Data Provided for This Section Encounter Notes: All associated encounter notes This section contains the clinical notes associated to the Encounter. Date/Time Encounter Note(s) Provider Source Oct 22, 2018 02:32 PM NONVA NOTE: LOCAL TITLE: COMMUNITY CARE-SCHEDULING STANDARD TITLE: NONVA NOTE DATE OF NOTE: OCT 22, 2018@14:32 ENTRY DATE: OCT 22, 2018@14:32:24 AUTHOR: SULMA PLEITEZ EXP COSIGNER: URGENCY: STATUS: COMPLETED [facility] Community Care ([facility]) Program Department of [facility] Choice Approval for Medical Care VA-Form [phone] Certain protected health information (PHI) may be enclosed; specifically information related to Drug Abuse, Alcoholism or Alcohol Abuse, Sickle Cell Anemia, and Human Immunodeficiency Virus (HIV). This specific PHI may NOT be re-disclosed or used by the recipient person or office for any purpose other than that for which the disclosure was made. [Ref. 38 [facility] 7332(b)(2)(H)(ii)] The information is b eing disclosed by [place] only for the treatment and care of the named patient in the health record. Accounting of disclosure must be maintained when required. Referral Urgency: Routine Indicate time frame for appointment: Clinically Indicated Date (DEBORA): Oct Category of Care/Type of Specialty: PULMONARY REHAB Type of Specialist: PULMONARY REHAB Type of Service/Procedure: Chronic Obstructive Pulmonary Disease, unspecified(ICD-10-CM J44.9) Type of Service: Evaluation and Treatment Chief Complaint: yo request for pulmonary rehab., dx. copd. Number of Visits, Frequency, and Duration: Duration: 180 days or [facility] Preferred Provider Name and Contact Information: Eligibility Verification: As the authorized [place] herbicide service sales representative, I hereby confirm that the is eligible for Community Care services. The 's basic eligibility was verified on . Contact the Facility Community Care Office first to provide information to the [place] or to reach a [place] ordering provider. All contact from the contractor will be documented in the [place]'s record by the [facility] community Care and the VA provider will be notified for awareness. Report all Critical Findings related to this authorization to the issuing office below. All other questions regarding this authorization should be directed to: [facility] [phone] Facility: [facility] Office of Community Care (OCC) Contact: Local [place] Office of Community Care (OCC) Pest Management Supervisor or Equivalent: Name: Paul Manning Title: Nurse Pest Management Supervisor [facility] Contact Number (Normal Business Hours): [phone] AOD/Emergency Contact After Hours Number: [phone] From Station Number: [id number] Facility Name: Yumi Taylor [facility] Street Address: [address] [place] [address] City: [place] State: [place] Zip: [address] Information: Name: JUAN MANUEL MARTIN : Nov SSN: [id number] Address: [address] [place] [address] In accordance with 38 CFR 17.7913-8216, [place] will pay for non-VA hospital care and medical services that are authorized by [place] for Veterans who are determined by [place] to meet the Veterans Choice Program eligibility criteria set forth by section 101 of the Act and 38 CFR 17.1510 and any other eligibility standards that may apply to particular services (such as health care for newborns of Veterans under 38 CFR 17.38(a)(xiv) and dental benefits under 17.160-17.169). /nuno/ SULMA PLEITEZ Signed: 10/22/2018 14:34 SULMA PLEITEZ [facility]
--- OUTSIDE RECORDS SUMMARY | 2019-08-16 03:58 | XMS REPORT | Encounter Summary ---
Author Author [facility] JUAN MANUEL posey Organization Department of [facility] Address [address] [place] [phone] Phone Unavailable Care Team Providers Care Tenter Name Role Phone BRITTANEY VILLEDA PCP Unavailable [...] PART B Apr 13, 2007 PART B [id number] [phone] MARTINJUAN MANUEL PATIENT MEDICARE (WNR) MEDICARE (M) PART B Apr 13, 2007 PART B [id number] [phone] JUAN MANUEL MARTIN PATIENT MEDICARE (WNR) MEDICARE (M) PART A Sep 10, 2005 PART A [id number] MARTIN,JUAN MANUEL PATIENT MEDICARE (WNR) MEDICARE (M) PART A Sep 10, 2005 PART A [id number] [phone] JUAN MANUEL MARTIN PATIENT MEDICARE (WNR) MEDICARE (M) PART A Sep 10, 2005 PART A [id number] [phone] JUAN MANUEL MARTIN PATIENT Selected Encounter This section includes the information on record at DC for the Encounter. Date/Time Encounter Type Encounter Description Reason Provider Source Oct 29, 2018 03:38 PM Outpatient Encounter COMMUNITY CARE CONSULT [facility], [facility] IHE Encounter Template Text not used by DC Assessments - Encounter Diagnoses No Data Provided for This Section Plan of Treatment: Future Appointments (+ 6 months) and Future Tests (+/- 45 day s) The Plan of Treatment section includes future care activities for the patient fr om all DC treatment facilities. This section includes future appointments and fu ture orders which are active, pending or scheduled. Future Appointments This section includes appointments that were scheduled t o occur 6 months from the date of the Encounter, up to a maximum of 20 appointme nts. The data comes from all DC treatment facilities. Appointment Date/Time Appointment Type Appointment Facili ty Name Nov 02, 2018 09:00 AM AMBULATORY - MEDICINE [facility] Jan 02, 2019 08:30 AM AMBULATORY - NONE [facility] Jan 08, 2019 09:00 AM AMBUL[facility]ORY - MEDICINE [facility] Jan 23, 2019 09:15 AM AMBULATORY - NONE [facility] Surgical Procedures: All associated to the encounter [...] of a patient's completed or amen ded DC Advance and Rescinded Directives. The entries below indicate that a direc tive exists for the patient, but an actual copy is not included with this docume nt. The data comes from all [place] facilities. Date Advance Directives Provider Source Jan 02, 2018 ADVANCE DIRECTIVE DISCUSSION FLO KRUEGER [facility] Oct 17, 2000 ADVANCE DIRECTIVE EUNICE RODRIGUEZ [facility], [facility] 15 Allergies and Adverse Reactions (ADRs): All historical and current Section Date Range: From patient's date of to the date document was create d. This section includes Allergies and Adverse Reactions (ADR s) on record with DC for the patient. The data comes from a ll DC treatment facilities. It does not list Allergies/ADRs that were removed or entered in error. Some allergies/ADRs may be reported in t he Immunization section. Allergen Event Date Event Type Reaction(s) Severity Source No Known Allergies [facility] No Allergy Assessment on File [facility] Medications: VA dispensed (-15 months) and Non-VA Documented (Obtained Outside V A) Section Date Range: 1) prescriptions processed by a DC pharmacy in the last 15 m ont, and 2) all medications recorded in the DC medical record as "non-VA medic ations". Pharmacy terms refer to DC pharmacy's work on prescriptions. VA patient s are advised to take their medications as instructed by their health care team. The data comes from all [place] treatment facilities. Glossary of Pharmacy Terms:Active = A prescription that can be filled at the local DC pharmacy.Active: On Hold = An active prescription that will not be filled until pharmacy resolves the issue.Active: Susp = An active prescription that is not scheduled to be filled yet.Clinic Order = A medication received during a visit to a DC clinic or emergency department (currently not available).Discontinued [...] may be a prescription from either the DC or other providers that was filled outside the DC. Or, it may be an over the [...] A DAY NEEDED 180 Jan 09, 2020 [id number] Apr 10, 2019 MAK VILLEDA ALBUTEROL SO4 0.083% INHL,3ML Discontinued USE 3 MLS IN NEBULIZER FOR INHALATION TWO TIMES A DAY NEEDED 180 Jan 27, 2019 [id number] Nov 01, 2018 BRITTANEY VENEGAS ALBUTEROL SO4 90MCG/ACTUAT (CFC-F) INHL,ORAL,6.7GM Active INHALE 2 PUFFS BY ORAL INHALATION TWO TIMES A DAY NEEDED - RINSE MOUTHPIECE FREQUENTLY TO PREVENT CLOGGING 2 Aug 30, 2019 [id number] Mar 18, 2019 BRITTANEY VILLEDA ALBUTEROL SO4 90MCG/ACTUAT (CFC-F) INHL,ORAL,6.7GM Discontin ued INHALE 2 PUFFS BY ORAL INHALATION TWO TIMES A DAY NEEDED - RINSE MOUTHPIECE FREQUENTLY TO PREVENT CLOGGING 2 Mar 27, 2019 [id number] Aug 30, 2018 BRITTANEY VILLEDA BUDESONIDE 80MCG/FORMOTEROL FUM 4.5MCG/SPRAY INHL,ORAL,10.2G M Active INHALE 2 PUFFS BY ORAL INHALATION TWO TIMES A DAY FOR BREATHING. SHAKE WELL. RINSE MOUTH AND SPIT AFTER EACH USE. 3 Jun 24, 2020 [id number] Jun 24, 2019 BRITTANEY VLILEDA BUDESONIDE 80MCG/FORMOTEROL FUM 4.5MCG/SPRAY INHL,ORAL,10.2G M Discontinued INHALE 2 PUFFS BY ORAL INHALATION TWO TIMES A DAY FOR BREATHING. SHAKE WELL. RINSE MOUTH AND SPIT AFTER EACH USE. 3 Dec 07, 2019 [id number] Mar 18, 2019 BRITTANEY VILLEDA FERROUS SO4 324MG TAB,EC Active TAKE ONE TABLET BY MOUTH TWO TIMES A DAY FOR IRON SUPPLEMENTATION. MAY TAKE WITH FOOD IF NOT TOLERATED ON EMPTY STOMACH 200 Jan 09, 2020 [id number] Apr 23, 2019 BRITTANEY VILLEDA FERROUS SO4 324MG TAB,EC Discontinued TAKE ONE TABLET BY MOUTH TWO TIMES A DAY FOR IRON SUPPLEMENTATION. MAY TAKE WITH FOOD IF NOT TOLERATED ON EMPTY STOMACH 200 May 02, 2019 [id number] Nov 14, 2018 BRITTANEY VILLEDA CBO C FOLIC ACID 1MG TAB Active TAKE ONE TABLET BY MOUTH ONCE A DAY 90 Nov 22, 2019 [id number] Mar 18, 2019 BRITTANEY VILLEDA FOLIC ACID 1MG TAB Discontinued TAKE ONE TABLET BY MOUTH ONCE A DAY 90 May 02, 2019 [id number] Sep 26, 2018 BRITTANEY VILLEDA [facility] GABAPENTIN 300MG CAP Discontinued TAKE 2 CAPSULES BY MOUTH FOUR TITO ES A DAY 720 Jan 27, 2019 [id number] Nov 14, 2018 BRITTANEY VILLEDA GABAPENTIN 400MG CAP Active TAKE 1 CAPSULE BY MOUTH THREE TITO ES A DAY 270 Dec 07, 2019 [id number] Mar 18, 2019 BRITTANEY VILLEDA HYDROCODONE 10MG/ACETAMINOPHEN 325MG TAB Non-VA TAKE ONE TABLET BY MOUTH FOUR TIMES A DAY Non-VA Documented by: RAMY TRENT nted at: STEFANI SPAIN LISINOPRIL 10MG TAB Discontinued TAKE ONE-HALF TABLET BY MOUTH EVERY MORNING FOR HEART OR HIGH BLOOD PRESSURE 15 Jun 01, 2019 [id number] Jun 02, 2018 BRITTANEY VILLEDA [facility] LOSARTAN 25MG TAB Active TAKE ONE TABLET BY MOUTH ONCE A DAY FOR BLOOD PRESSURE 90 Jan 09, 2020 [id number] Apr 23, 2019 BRITTANEY VILLEDA C LOSARTAN 25MG TAB Discontinued TAKE ONE TABLET BY M OUTH ONCE A DAY FOR BLOOD PRESSURE 90 July 13, 2019 [id number] Nov 14, 2018 [facility] MELOX[facility] 15MG TAB TAKE ONE TABLET BY M OUTH ONCE A DAY FOR PAIN OR INFLAMMATION. 90 Jun 01, 2019 [id number] Mar 18, 2019 BRITTANEY VILLEDA METOPROLOL TARTRATE 25MG TAB Active TAKE ONE-SMITH LF TABLET BY MOUTH TWO TIMES A DAY FOR HEART/BLOOD PRESSURE. TAKE WITH OR IMMEDIATELY FOLLOWING FOOD. 90 Jan 09, 2020 [id number] Apr 23, 2019 BRITTANEY VILLEDA METOPROLOL TARTRATE 25MG TAB Discontinued TAKE ONE-SMITH LF TABLET BY MOUTH TWO TIMES A DAY FOR HEART/BLOOD PRESSURE. TAKE WITH OR IMMEDIATELY FOLLOWING FOOD. 90 July 13, 2019 [id number] Nov 14, 2018 [facility] SIMVASTATIN 40MG TAB Active TAKE ONE-HALF TABLE T BY MOUTH AT BEDTIME FOR CHOLESTEROL - REPORT ANY UNEXPLAINED MUSCLE PAIN OR WEAKNESS TO YOUR PROVIDER 45 Sep 27, 2019 [id number] Jun 24, 2019 BRITTANEY VILLEDA CBO C SIMVASTATIN 40MG TAB Discontinued TAKE ONE-HALF TABLE T BY MOUTH AT BEDTIME FOR CHOLESTEROL - REPORT ANY UNEXPLAINED MUSCLE PAIN OR WEAKNESS TO YOUR PROVIDER 45 Sep 23, 2018 [id number] Jul 05, 2018 BRITTANEY VILLEDA CBO C TAMSULOSIN HCL 0.4MG CAP Discontinued TAKE ONE CAPSUL E BY MOUTH ONCE A DAY FOR PROSTATE. TAKE AT THE SAME TIME EACH DAY WITH FOOD. 90 Jun 17, 9 [id number] Jun 14, 2018 BRITTANEY VILLEDA [facility] TAMSULOSIN HCL 0.4MG CAP TAKE ONE CAPSUL E BY MOUTH ONCE A DAY FOR PROSTATE. TAKE AT THE SAME TIME EACH DAY WITH FOOD. 90 August 01 0 [id number] Jun 24, 2019 BRITTANEY VILLEDA [facility] TIOTROPIUM 2.5MCG/ACTUAT INHL,ORAL,60D,4GM Active INHALE 2 PUFFS BY ORAL INHALATION ONCE A DAY FOR BREATHING. DON'T USE WITH IPRATROPIUM - REPLACES ADVAIR. 3 Jun 24, 2020 [id number] Jun 24, 2019 BRITTANEY VILLEDA [facility] TIOTROPIUM 2.5MCG/ACTUAT INHL,ORAL,60D,4GM Discontinued INHALE 2 PUFFS BY ORAL INHALATION ONCE A DAY FOR BREATHING. DON'T USE WITH IPRATROPIUM - REPLACES ADVAIR. 3 Oct 13, 2019 [id number] Mar 18, 2019 BRITTANEY VILLEDA [facility] Problems (Conditions): All historical and current Section Date Range: From patient's date of to the date document was create d. This section includes a list of Problems (Conditions) know n to [facility] for the patient. It includes both active and inacti ve problems (conditions). The data comes from all [place] treatment facilities. Problem Status Problem Code Date of Onset Date of Resolution Comm ent(s) Provider Source Actinic keratosis (SNOMED CT 133747785) Active 702.0 BRITTANEY VILLEDA [facility] Alcohol Dependence * (ICD-9-CM 303.90/303.91) Active 303.90 ALEXANDRA KWONG [facility] Anemia Active 285.9 [facility] ANGINA PECTORIS NEC/NOS 413.9 Active 413.9 ALEXANDRA RUELAS [facility] Anxiety Disorder Active 300.00 AURELIANO LINCOLN MD [facility] Benign Neoplasm Skin Head, Neck, Scalp Active 216.4 SANTOSCOY,RENALDO Marcel [facility] CABG Active 799.9 Oct 05, 2006 E ntered By: SATHISH SCOTT Comment: feb, 4-vessel [facility] Chest discomfort (SNOMED CT 855305324) Active 786.59 BRITTANEY VILLEDA [facility] Chronic airway obstruction, Not Elsewhere Classified Active 496. AURELIANO LINOCLN MD [facility] Chronic Low Back Pain Active 724.2 AURELIANO LINCOLN MD [facility] COPD * (ICD-9-CM 496.) Active 496. Robin [facility] Coronary Artery Disease * (ICD-9-CM 414.9) Active 414.9 ALEXANDRA KWONG [facility] Coronary Atherosclerosis of [place] Coronary Vessel Active 414.01 August 03, 2010 Entered By: AURELIANO LINCOLN MD Comment: Bypass surgery AURELIANO LINCOLN MD [facility] Disorder of shoulder (SNOMED CT 459944457) Active 719.91 BRITTANEY VILLEDA [facility] Essential Hypertension Active 401.9 AURELIANO LINCOLN MD [facility] Hyperlipidemia Active 272.4 SATHISH SCOTT [facility] HYPERTENSION NOS 401.9 Active 401.9 ALEXANDRA KWONG [facility] Impotence (SNOMED CT 851244230) Active 302.72 BRITTANEY VILLEDA [facility] 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 AURELIANO LIU MD [facility] Marijuana Dependence unspecified Active 304.30 AURELIANO LINCOLN MD [facility] Microscopic Hematuria (ICD-9-CM 599.72) Active 599.72 [facility] Other and unspecified hyperlipidemia Active 272.4 AURELIANO LINCOLN MD [facility] Other, mixed, or unspecified drug abuse, continuous use Active 30 5.91 Jan 30, 2009 Entered By: SATHISH SCOTT Comment: urine drug screen positive for opitates and marijuannaMay 14, 2010 Entered By: SATHISH SCOTT Comment: buying hydrocodone "off the street" SATHISH SCOTT [facility] Pain in joint involving ankle and foot (ICD-9-CM 719.47) Active 719 .47 [facility] Papular eruption (SNOMED CT 890328236) Active 709.8 BRITTANEY VILLEDA [facility] Personal History of Noncompliance with M edical Treatment, Presenting Hazards to Active V15.81 SATHISH SCOTT [facility] Tobacco dependence syndrome (SNOMED CT 46548727) Active [id number] July 24, 2009 Entered By: SATHISH SCOTT Comment: one YUMI Gibbons [facility] Transient Ischemic Attack * (ICD-9-CM 435.9) Active 435.9 SATHISH SCOTT [facility] ANIETY STAT NOS 300.00 Inactive 300.00 Jan 05, 2005 ALEXANDRA FLOREZ [facility] Bronchitis * (ICD-9-CM 490.) Inactive 490. Jan 05, 2005 BRITTANEY VILLEDA [facility] Postsurgical Aortocoronary Bypass Status (ICD-9-CM V45.81) Inactive V45.81 Oct 05, 2006 SATHISH SCOTT [facility] Radiology Reports: +/- 30 days of the encounter No Data Provided for This Section Pathology Reports: +/- 30 days of the encounter No Data Provided for This Section Encounter Notes: All associated encounter notes This section contains the clinical notes associated to the Encounter. Date/Time Encounter Note(s) Provider Source Oct 29, 2018 03:38 PM NONVA CONSULT: LOCAL TITLE: COMMUNITY CARE CONSULT RESULTS NOTE WI STANDARD TITLE: NONVA CONSULT DATE OF NOTE: OCT 29, 2018@15:38 ENTRY DATE: OCT 29, 2018@15:39 AUTHOR: ANAMARIA CEVALLOS EXP COSIGNER: URGENCY: STATUS: COMPLETED The following Non VA Care consult has been completed. See scanned document for report. NON VA Care Consult Results Orthopedics Comment: COMMUNITY CARE-ORTHO GEN/[facility] [place]/08/01-08/03/2018 /nuno/ ANAMARIA CH Signed: 10/29/2018 15:39 ANAMARIA CEVALLOS [facility]
--- OUTSIDE RECORDS SUMMARY | 2019-08-16 03:59 | XMS REPORT | Encounter Summary ---
Author Author Department [facility] Organization [facility] Address [address] [place] [id number] Phone Unavailable Care Team Providers Care Manager Recovery Name Role Phone BRITTANEY VILLEDA PCP Unavailable [...] PART B Apr 13, 2007 PART B [id number] [phone] JUAN MANUEL MARTIN PATIENT MEDICARE (WNR) MEDICARE (M) PART B Apr 13, 2007 PART B [id number] [phone] JUAN MANUEL MARTIN PATIENT MEDICARE (WNR) MEDICARE (M) PART A Sep 10, 2005 PART A [id number] [id number] JUAN MANUEL MARTIN PATIENT MEDICARE (WNR) MEDICARE (M) PART A Sep 10, 2005 PART A [id number] [phone] JUAN MANUEL MARTIN PATIENT MEDICARE (WNR) MEDICARE (M) PART A Sep 10, 2005 PART A [id number] VERONICAJUAN MANUEL PATIENT Selected Encounter This section includes the information on record at [place] for the Encounter. Date/Time Encounter Type Encounter Description Reason Provider Source Oct 10, 2018 03:22 PM Outpatient Encounter ADMIN PAT ACTIVTIES (MELANIE CUADRA) [facility] IHE Encounter Template Text not used by [place] Assessments - Encounter Diagnoses No Data Provided for This Section Plan of Treatment: Future Appointments (+ 6 months) and Future Tests (+/- 45 day s) The Plan of Treatment section includes future care activities for the patient fr om all [place] treatment facilities. This section includes future appointments and fu ture orders which are active, pending or scheduled. Future Appointments This section includes appointments that were scheduled t o occur 6 months from the date of the Encounter, up to a maximum of 20 appointme nts. The data comes from all [place] treatment facilities. Appointment Date/Time Appointment Type Appointment Facili ty Name Nov 02, 2018 09:00 AM AMBULATORY - MEDICINE [facility] Jan 02, 2019 08:30 AM AMBULATORY - NONE [facility] Jan 08, 2019 09:00 AM AMBULATORY - MEDICINE [facility] Jan 23, 2019 09:15 AM AMBULATORY - NONE [facility] Surgical Procedures: All associated to [...] and tobacco- related health factors from the [place] facility where the Encounter took place. Current Smoking Status This section includes the most current smoking, or tobacco -related health factor, from the SD facility where the Encounter took place. Date/Time Current Smoking Status Comment Facility May 28, 2018 11:45 AM VA-TOBACCO FORMER USER [facility] Tobacco Use History This section includes a history of the smoking, or tobacco -related health factors, that were collected on or before the date of the Encoun ter. The data comes from the [place] facility where the Encounter took place. Date/Time Smoking Status/Tobacco Use Comment [facility] May 28, 2018 11:45 AM VA-TOBACCO QUIT 15 YRS OR MORE [facility] Dec 25, 2017 02:23 PM NON-TOBACCO USER KO [facility] Jan 25, 2017 09:53 AM NON-TOBACCO USER KO [facility] Dec 22, 2015 09:45 AM NON-TOBACCO USER STEFANI [facility] Advance Directives: All historical and current Section [...] docume nt. The data comes from all [place] facilities. Date Advance Directives Provider Source Jan 02, 2018 ADVANCE DIRECTIVE DISCUSSION FLO KRUEGER [facility] Oct 17, 2000 ADVANCE DIRECTIVE EUNICE RODRIGUEZ [facility], [facility] 15 Allergies and Adverse Reactions (ADRs): All historical and current Section Date Range: From patient's date of to the date document was create d. This section includes Allergies and Adverse Reactions (ADR s) on record with [facility] for the patient. The data comes from a ll [place] treatment facilities. It does not list Allergies/ADRs that were removed or entered in error. Some allergies/ADRs may be reported in t he Immunization section. Allergen Event Date Event Type Reaction(s) Severity Source No Known Allergies [facility] No Allergy Assessment on File [facility] Medications: VA dispensed (-15 months) and Non-VA Documented (Obtained Outside V A) Section Date Range: 1) prescriptions processed by a SD pharmacy in the last 15 m ont, and 2) all medications recorded in the [place] medical record as "non-VA medic ations". Pharmacy terms refer to SD pharmacy's work on prescriptions. VA patient s are advised to take their medications as instructed by their health care team. The data comes from all [place] treatment facilities. Glossary of Pharmacy Terms:Active = A prescription that can be filled at the local [place] pharmacy.Active: On Hold = An active prescription that will not be filled until pharmacy resolves the issue.Active: Susp = An active prescription that is not scheduled to be filled yet.Clinic Order = A medication received during a visit to a [place] clinic or emergency department (currently not available).Discontinued [...] may be a prescription from either the [place] or other providers that was filled outside the [place]. Or, it may be an over the [...] A DAY NEEDED 180 Jan 09, 2020 [id number] Apr 10, 2019 MAK VILLEDA CBTERRENCE ALBUTEROL SO4 0.083% INHL,3ML Discontinued USE 3 MLS IN NEBULIZER FOR INHALATION TWO TIMES A DAY NEEDED 180 Jan 27, 2019 [id number] Nov 01, 2018 BRITTANEY VENEGAS ALBUTEROL SO4 90MCG/ACTUAT (CFC-F) INHL,ORAL,6.7GM Active INHALE 2 PUFFS BY ORAL INHALATION TWO TIMES A DAY NEEDED - RINSE MOUTHPIECE FREQUENTLY TO PREVENT CLOGGING 2 Aug 30, 2019 [id number] Mar 18, 2019 BRITTANEY VILLEDA ALBUTEROL SO4 90MCG/ACTUAT (CFC-F) INHL,ORAL,6.7GM Discontin ued INHALE 2 PUFFS BY ORAL INHALATION TWO TIMES A DAY NEEDED - RINSE MOUTHPIECE FREQUENTLY TO PREVENT CLOGGING 2 Mar 27, 2019 [id number] Aug 30, 2018 BRITTANEY VILLEDA BUDESONIDE 80MCG/FORMOTEROL FUM 4.5MCG/SPRAY INHL,ORAL,10.2G M Active INHALE 2 PUFFS BY ORAL INHALATION TWO TIMES A DAY FOR BREATHING. SHAKE WELL. RINSE MOUTH AND SPIT AFTER EACH USE. 3 Jun 24, 2020 [id number] Jun 24, 2019 BRITTANYE VILLEDA BUDESONIDE 80MCG/FORMOTEROL FUM 4.5MCG/SPRAY INHL,ORAL,10.2G M Discontinued INHALE 2 PUFFS BY ORAL INHALATION TWO TIMES A DAY FOR BREATHING. SHAKE WELL. RINSE MOUTH AND SPIT AFTER EACH USE. 3 Dec 07, 2019 [id number] Mar 18, 2019 BRITTANEY VILLEDA FERROUS SO4 324MG TAB,EC Active TAKE ONE TABLET BY MOUTH TWO TIMES A DAY FOR IRON SUPPLEMENTATION. MAY TAKE WITH FOOD IF NOT TOLERATED ON EMPTY STOMACH 200 Jan 09, 2020 [id number] Apr 23, 2019 BRITTANEY VILLEDA FERROUS SO4 324MG TAB,EC Discontinued TAKE ONE TABLET BY MOUTH TWO TIMES A DAY FOR IRON SUPPLEMENTATION. MAY TAKE WITH FOOD IF NOT TOLERATED ON EMPTY STOMACH 200 May 02, 2019 [id number] Nov 14, 2018 BRITTANEY VILLEDA C FOLIC ACID 1MG TAB Active TAKE ONE TABLET BY MOUTH ONCE A DAY 90 Nov 22, 2019 [id number] Mar 18, 2019 BRITTANEY VILLEDA FOLIC ACID 1MG TAB Discontinued TAKE ONE TABLET BY MOUTH ONCE A DAY 90 May 02, 2019 [id number] Sep 26, 2018 BRITTANEY VILLEDA GABAPENTIN 300MG CAP Discontinued TAKE 2 CAPSULES BY MOUTH FOUR TITO ES A DAY 720 Jan 27, 2019 [id number] Nov 14, 2018 BRITTANEY VILLEDA GABAPENTIN 400MG CAP Active TAKE 1 CAPSULE BY MOUTH THREE TITO ES A DAY 270 Dec 07, 2019 [id number] Mar 18, 2019 BRITTANEY VILLEDA HYDROCODONE 10MG/ACETAMINOPHEN 325MG TAB Non-VA TAKE ONE TABLET BY MOUTH FOUR TIMES A DAY Non-VA Documented by: RAMY TRENT nted at: STEF[facility] LISINOPRIL 10MG TAB Discontinued TAKE ONE-HALF TABLET BY MOUTH EVERY MORNING FOR HEART OR HIGH BLOOD PRESSURE 15 Jun 01, 2019 [id number] Jun 02, 2018 BRITTANEY VILLEDA [facility] [place] 25MG TAB Active TAKE ONE TABLET BY MOUTH ONCE A DAY FOR BLOOD PRESSURE 90 Jan 09, 2020 [id number] Apr 23, 2019 BRITTANEY VILLEDA C [place]AN 25MG TAB Discontinued TAKE ONE TABLET BY M OUTH ONCE A DAY FOR BLOOD PRESSURE 90 July 13, 2019 [id number] Nov 14, 2018 TIERRA KWONG [facility] MELOXICAM 15MG TAB TAKE ONE TABLET BY M OUTH ONCE A DAY FOR PAIN OR INFLAMMATION. 90 Jun 01, 2019 [id number] Mar 18, 2019 BRITTANEY VILLEDA METOPROLOL TARTRATE 25MG TAB Active TAKE ONE-SMITH LF TABLET BY MOUTH TWO TIMES A DAY FOR HEART/BLOOD PRESSURE. TAKE WITH OR IMMEDIATELY FOLLOWING FOOD. 90 Jan 09, 2020 [id number] Apr 23, 2019 BRITTANEY VILLEDA METOPROLOL TARTRATE 25MG TAB Discontinued TAKE ONE-SMITH LF TABLET BY MOUTH TWO TIMES A DAY FOR HEART/BLOOD PRESSURE. TAKE WITH OR IMMEDIATELY FOLLOWING FOOD. 90 July 13, 2019 [id number] Nov 14, 2018 TIERRA KWONG [facility] SIMVASTATIN 40MG TAB Active TAKE ONE-HALF TABLE T BY MOUTH AT BEDTIME FOR CHOLESTEROL - REPORT ANY UNEXPLAINED MUSCLE PAIN OR WEAKNESS TO YOUR PROVIDER 45 Sep 27, 2019 [id number] Jun 24, 2019 BRITTANEY VILLEDA CBO C SIMVASTATIN 40MG TAB Discontinued TAKE ONE-HALF TABLE T BY MOUTH AT BEDTIME FOR CHOLESTEROL - REPORT ANY UNEXPLAINED MUSCLE PAIN OR WEAKNESS TO YOUR PROVIDER 45 Sep 23, 2018 [id number] Jul 05, 2018 BRITTANEY VILLEDA CBO C TAMSULOSIN HCL 0.4MG CAP Discontinued TAKE ONE CAPSUL E BY MOUTH ONCE A DAY FOR PROSTATE. TAKE AT THE SAME TIME EACH DAY WITH FOOD. 90 Jun 17, 9 [id number] Jun 14, 2018 BRITTANEY VILLEDA TAMSULOSIN HCL 0.4MG CAP TAKE ONE CAPSUL E BY MOUTH ONCE A DAY FOR PROSTATE. TAKE AT THE SAME TIME EACH DAY WITH FOOD. 90 August 01 0 [id number] Jun 24, 2019 BRITTANEY VILLEDA TIOTROPIUM 2.5MCG/ACTUAT INHL,ORAL,60D,4GM Active INHALE 2 PUFFS BY ORAL INHALATION ONCE A DAY FOR BREATHING. DON'T USE WITH IPRATROPIUM - REPLACES ADVAIR. 3 Jun 24, 2020 [id number] Jun 24, 2019 BRITTANEY VILLEDA TIOTROPIUM 2.5MCG/ACTUAT INHL,ORAL,60D,4GM Discontinued INHALE 2 PUFFS BY ORAL INHALATION ONCE A DAY FOR BREATHING. DON'T USE WITH IPRATROPIUM - REPLACES ADVAIR. 3 Oct 13, 2019 [id number] Mar 18, 2019 BRITTANEY VILLEDA [facility] Problems (Conditions): All historical and current Section Date Range: From patient's date of to the date document was create d. This section includes a list of Problems (Conditions) know n to [place] for the patient. It includes both active and inacti ve problems (conditions). The data comes from all [place] treatment facilities. Problem Status Problem Code Date of Onset Date of Resolution Comm ent(s) Provider Source Actinic keratosis (SNOMED CT 342606293) Active 702.0 BRITTANEY VILLEDA [facility] Alcohol Dependence * (ICD-9-CM 303.90/303.91) Active 303.90 ALEXANDRA KWONG [facility] Anemia Active 285.9 [facility] ANGINA PECTORIS NEC/NOS 413.9 Active 413.9 W ALEXANDRA DE JESUS [facility] Anxiety Disorder Active 300.00 AURELIANO LINCOLN MD [facility] Benign Neoplasm Skin Head, Neck, Scalp Active 216.4 RENALDO DACOSTA [facility] CABG Active 799.9 Oct 05, 2006 E ntered By: SATHISH SCOTT Comment: feb, 4-vessel SATHISH SCOTT [facility] Chest discomfort (SNOMED CT 892998736) Active 786.59 BRITTANEY VILLEDA [facility] Chronic airway obstruction, Not Elsewhere Classified Active 496. AURELIANO LINCOLN MD [facility] Chronic Low Back Pain Active 724.2 AURELIANO LINOCLN MD [facility] COPD * (ICD-9-CM 496.) Active 496. Robin SCOTT [facility] Coronary Artery Disease * (ICD-9-CM 414.9) Active 414.9 ALEXANDRA KWONG [facility] Coronary Atherosclerosis of [place] Coronary Vessel Active 414.01 August 03, 2010 Entered By: AURELIANO LINCOLN MD Comment: Bypass surgery AURELIANO LINCOLN MD [facility] Disorder of shoulder (SNOMED CT 418210997) Active 719.91 BRITTANEY VILLEDA [facility] Essential Hypertension Active 401.9 AURELIANO LINCOLN MD [facility] Hyperlipidemia Active 272.4 SATHISH SCOTT [facility] HYPERTENSION NOS 401.9 Active 401.9 ALEXANDRA KWONG [facility] Impotence (SNOMED CT 564730567) Active 302.72 BRITTANEY VILLEDA [facility] 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 AURELIANO LIU MD [facility] Marijuana Dependence unspecified Active 304.30 AURELIANO LINCOLN MD [facility] Microscopic Hematuria (ICD-9-CM 599.72) Active 599.72 BEVERLY SALINAS [facility] Other and unspecified hyperlipidemia Active 272.4 AURELIANO LINCOLN MD [facility] Other, mixed, or unspecified drug abuse, continuous use Active 30 5.91 Jan 30, 2009 Entered By: SATHISH SCOTT Comment: urine drug screen positive for opitates and marijuannaMay 2009 Entered By: SATHISH SCOTT Comment: buying hydrocodone "off the street" [facility] Pain in joint involving ankle and foot (ICD-9-CM 719.47) Active 719 .47 [facility]ISH SCOTT [facility] Papular eruption (SNOMED CT 434183866) Active 709.8 [facility]ILLEDA [facility] Personal History of Noncompliance with M edical Treatment, Presenting Hazards to Active V15.81 [facility]ISH SCOTT [facility] Tobacco dependence syndrome (SNOMED CT 00057552) Active [id number] July 24, 2009 Entered By: SATHISH SCOTT Comment: one ppd YUMI AVILA [facility] Transient Ischemic Attack * (ICD-9-CM 435.9) Active 435.9 [facility]ISH SCOTT [facility] ANIETY STAT NOS 300.00 Inactive 300.00 Jan 05, 2005 [facility]DRA [facility] Bronchitis * (ICD-9-CM 490.) Inactive 490. Jan 05, 2005 [facility]ANEY [facility]ILLEDA [facility] Postsurgical Aortocoronary Bypass Status (ICD-9-CM V45.81) Inactive V45.81 Oct 05, 2006 SATHISH SCOTT [facility] Radiology Reports: +/- 30 days of the encounter No Data Provided for This Section Pathology Reports: +/- 30 days of the encounter No Data Provided for This Section Encounter Notes: All associated encounter notes This section contains the clinical notes associated to the Encounter. Date/Time Encounter Note(s) Provider Source Oct 10, 2018 03:22 PM ADMINISTRATIVE NOTE: LOCAL TITLE: WI-ADMIN MSA STANDARD TITLE: ADMINISTRATIVE NOTE DATE OF NOTE: OCT 10, 2018@15:22 ENTRY DATE: OCT 10, 2018@15:22:19 AUTHOR: DARCY WEN EXP COSIGNER: URGENCY: STATUS: COMPLETED MSA Administrative Note: RECORDS RECEIVED TODAY by: Fax Nature of report:rx for fluticasone propion Date(s) of record(s):10/10/2018 Sending constitution party:[facility] /nuno/ DARCY KO Signed: 10/10/2018 15:23 DARCY WEN OC
--- OUTSIDE RECORDS SUMMARY | 2019-08-16 03:59 | XMS REPORT | Encounter Summary ---
Author Author Department [facility] Organization Department of [facility] Address [address] [place] [id number] Phone Unavailable Care Team Providers Care Talent Assistant Name Role Phone BRITTANEY VILLEDA PCP [...] PART B Apr 13, 2007 PART B [id number] [phone] JUAN MANUEL MARTIN PATIENT MEDICARE (WNR) MEDICARE (M) PART B Apr 13, 2007 PART B [id number] [phone] JUAN MANUEL MARTIN PATIENT MEDICARE (WNR) MEDICARE (M) PART A Sep 10, 2005 PART A [id number] [phone] JUAN MANUEL MARTIN PATIENT MEDICARE (WNR) MEDICARE (M) PART A Sep 10, 2005 PART A [id number] JUAN MANUEL MARTIN PATIENT MEDICARE (WNR) MEDICARE (M) PART A Sep 10, 2005 PART A [id number] MARTINJUAN MANUEL PATIENT Selected Encounter This section includes the information on record at [place] for the Encounter. Date/Time Encounter Type Encounter Description Reason Provider Source Oct 16, 2018 01:03 PM Outpatient Encounter ADMIN PAT ACTIVTIES (MELANIE CUADRA) [facility] IHE Encounter Template Text not used by [place] Assessments - Encounter Diagnoses No Data Provided for This Section Plan of Treatment: Future Appointments (+ 6 months) and Future Tests (+/- 45 day s) The Plan of Treatment section includes future care activities for the patient fr om all [place] treatment facilities. This section includes future appointments and fu ture orders which are active, pending or scheduled. Future Appointments This section includes appointments that were scheduled t o occur 6 months from the date of the Encounter, up to a maximum of 20 appointme nts. The data comes from all [place] treatment facilities. Appointment Date/Time Appointment Type Appointment Facili ty Name Nov 02, 2018 09:00 AM AMBULATORY - MEDICINE [facility] Jan 02, 2019 08:30 AM AMBULATORY - NONE [facility] Jan 08, 2019 09:00 AM AMBULATORY - MEDICINE [facility] Jan 23, 2019 09:15 AM AMBULATORY - NONE [facility] Surgical Procedures: All associated to the [...] and tobacco- related health factors from the [place] facility where the Encounter took place. Current Smoking Status This section includes the most current smoking, or tobacco -related health factor, from the [place] facility where the Encounter took place. Date/Time Current Smoking Status Comment Facility May 28, 2018 11:45 AM VA-TOBACCO FORMER USER [facility] Tobacco Use History This section includes a history of the smoking, or tobacco -related health factors, that were collected on or before the date of the Encoun ter. The data comes from the [place] facility where the Encounter took place. Date/Time Smoking Status/Tobacco Use Comment [facility] May 28, 2018 11:45 AM VA-TOBACCO QUIT 15 YRS OR MORE [place] [facility] Dec 25, 2017 02:23 PM NON-TOBACCO USER KO [facility] Jan 25, 2017 09:53 AM NON-TOBACCO USER KO [facility] Dec 22, 2015 09:45 AM NON-TOBACCO USER KO [facility] Advance Directives: All historical and current Section [...] docume nt. The data comes from all [place] facilities. Date Advance Directives Provider Source Jan 02, 2018 ADVANCE DIRECTIVE DISCUSSION FLO KRUEGER CB Oct 17, 2000 ADVANCE DIRECTIVE EUNICE RODRIGUEZ [facility], VISN 15 Allergies and Adverse Reactions (ADRs): All historical and current Section Date Range: From patient's date of to the date document was create d. This section includes Allergies and Adverse Reactions (ADR s) on record with [facility] for the patient. The data comes from a ll [place] treatment facilities. It does not list Allergies/ADRs that were removed or entered in error. Some allergies/ADRs may be reported in t he Immunization section. Allergen Event Date Event Type Reaction(s) Severity Source No Known Allergies KIT [facility] No Allergy Assessment on File JEOVANNY MORGAN Medications: VA dispensed (-15 months) and Non-VA Documented (Obtained Outside V A) Section Date Range: 1) prescriptions processed by a VA pharmacy in the last 15 m ont, and 2) all medications recorded in the [place] medical record as "non-VA medic ations". Pharmacy terms refer to [place] pharmacy's work on prescriptions. [facility] patient s are advised to take their medications as instructed by their health care team. The data comes from all [place] treatment facilities. Glossary of Pharmacy Terms:Active = A prescription that can be filled at the local [place] pharmacy.Active: On Hold = An active prescription that will not be filled until pharmacy resolves the issue.Active: Susp = An active prescription that is not scheduled to be filled yet.Clinic Order = A medication received during a visit to a [place] clinic or emergency department (currently not available).Discontinued [...] may be a prescription from either the [place] or other providers that was filled outside the [place]. Or, it may be an over the [...] A DAY NEEDED 180 Jan 09, 2020 [id number] Apr 10, 2019 MAK VILLEDA CBTERRENCE ALBUTEROL SO4 0.083% INHL,3ML Discontinued USE 3 MLS IN NEBULIZER FOR INHALATION TWO TIMES A DAY NEEDED 180 Jan 27, 2019 [id number] Nov 01, 2018 BRITTANEY VENEGAS ALBUTEROL SO4 90MCG/ACTUAT (CFC-F) INHL,ORAL,6.7GM Active INHALE 2 PUFFS BY ORAL INHALATION TWO TIMES A DAY NEEDED - RINSE MOUTHPIECE FREQUENTLY TO PREVENT CLOGGING 2 Aug 30, 2019 [id number] Mar 18, 2019 BRITTANEY VILLEDA CBTERRENCE ALBUTEROL SO4 90MCG/ACTUAT (CFC-F) INHL,ORAL,6.7GM Discontin ued INHALE 2 PUFFS BY ORAL INHALATION TWO TIMES A DAY NEEDED - RINSE MOUTHPIECE FREQUENTLY TO PREVENT CLOGGING 2 Mar 27, 2019 [id number] Aug 30, 2018 BRITTANEY VILLEDA BUDESONIDE 80MCG/FORMOTEROL FUM 4.5MCG/SPRAY INHL,ORAL,10.2G M Active INHALE 2 PUFFS BY ORAL INHALATION TWO TIMES A DAY FOR BREATHING. SHAKE WELL. RINSE MOUTH AND SPIT AFTER EACH USE. 3 Jun 24, 2020 [id number] Jun 24, 2019 BRITTANEY VILLEDA BUDESONIDE 80MCG/FORMOTEROL FUM 4.5MCG/SPRAY INHL,ORAL,10.2G M Discontinued INHALE 2 PUFFS BY ORAL INHALATION TWO TIMES A DAY FOR BREATHING. SHAKE WELL. RINSE MOUTH AND SPIT AFTER EACH USE. 3 Dec 07, 2019 [id number] Mar 18, 2019 BRITTANEY VILLEDA FERROUS SO4 324MG TAB,EC Active TAKE ONE TABLET BY MOUTH TWO TIMES A DAY FOR IRON SUPPLEMENTATION. MAY TAKE WITH FOOD IF NOT TOLERATED ON EMPTY STOMACH 200 Jan 09, 2020 [id number] Apr 23, 2019 BRITTANEY VILLEDA [facility] FERROUS SO4 324MG TAB,EC Discontinued TAKE ONE TABLET BY MOUTH TWO TIMES A DAY FOR IRON SUPPLEMENTATION. MAY TAKE WITH FOOD IF NOT TOLERATED ON EMPTY STOMACH 200 May 02, 2019 [id number] Nov 14, 2018 BRITTANEY VILLEDA C FOLIC ACID 1MG TAB Active TAKE ONE TABLET BY MOUTH ONCE A DAY 90 Nov 22, 2019 [id number] Mar 18, 2019 BRITTANEY VILLEDA FOLIC ACID 1MG TAB Discontinued TAKE ONE TABLET BY MOUTH ONCE A DAY 90 May 02, 2019 [id number] Sep 26, 2018 BRITTANEY VILLEDA GABAPENTIN 300MG CAP Discontinued TAKE 2 CAPSULES BY MOUTH FOUR TITO ES A DAY 720 Jan 27, 2019 [id number] Nov 14, 2018 BRITTANEY VILLEDA GABAPENTIN 400MG CAP Active TAKE 1 CAPSULE BY MOUTH THREE TITO ES A DAY 270 Dec 07, 2019 [id number] Mar 18, 2019 BRITTANEY VILLEDA HYDROCODONE 10MG/ACETAMINOPHEN 325MG TAB Non-VA TAKE ONE TABLET BY MOUTH FOUR TIMES A DAY Non-VA Documented by: RAMY TRENT nted at: STEFANI SPAIN LISINOPRIL 10MG TAB Discontinued TAKE ONE-HALF TABLET BY MOUTH EVERY MORNING FOR HEART OR HIGH BLOOD PRESSURE 15 Jun 01, 2019 [id number] Jun 02, 2018 BRITTANEY VILLEDA [facility] LOSARTAN 25MG TAB Active TAKE ONE TABLET BY MOUTH ONCE A DAY FOR BLOOD PRESSURE 90 Jan 09, 2020 [id number] Apr 23, 2019 BRITTANEY VILLEDA C LOSARTAN 25MG TAB Discontinued TAKE ONE TABLET BY M OUTH ONCE A DAY FOR BLOOD PRESSURE 90 July 13, 2019 [id number] Nov 14, 2018 TIERRA KWONG [facility] MELOXICAM 15MG TAB TAKE ONE TABLET BY M OUTH ONCE A DAY FOR PAIN OR INFLAMMATION. 90 Jun 01, 2019 [id number] Mar 18, 2019 RONAL,BRITTANEY B P [facility] METOPROLOL TARTRATE 25MG TAB Active TAKE ONE-SMITH LF TABLET BY MOUTH TWO TIMES A DAY FOR HEART/BLOOD PRESSURE. TAKE WITH OR IMMEDIATELY FOLLOWING FOOD. 90 Jan 09, 2020 [id number] Apr 23, 2019 BRITTANEY VILLEDA METOPROLOL TARTRATE 25MG TAB Discontinued TAKE ONE-SMITH LF TABLET BY MOUTH TWO TIMES A DAY FOR HEART/BLOOD PRESSURE. TAKE WITH OR IMMEDIATELY FOLLOWING FOOD. 90 July 13, 2019 [id number] Nov 14, 2018 TIERRA KWONG [facility] SIMVASTATIN 40MG TAB Active TAKE ONE-HALF TABLE T BY MOUTH AT BEDTIME FOR CHOLESTEROL - REPORT ANY UNEXPLAINED MUSCLE PAIN OR WEAKNESS TO YOUR PROVIDER 45 Sep 27, 2019 [id number] Jun 24, 2019 BRITTANEY VILLEDA CBO C SIMVASTATIN 40MG TAB Discontinued TAKE ONE-HALF TABLE T BY MOUTH AT BEDTIME FOR CHOLESTEROL - REPORT ANY UNEXPLAINED MUSCLE PAIN OR WEAKNESS TO YOUR PROVIDER 45 Sep 23, 2018 [id number] Jul 05, 2018 BRITTANEY VILLEDA [facility] TAMSULOSIN HCL 0.4MG CAP Discontinued TAKE ONE CAPSUL E BY MOUTH ONCE A DAY FOR PROSTATE. TAKE AT THE SAME TIME EACH DAY WITH FOOD. 90 Jun 17 9 [id number] Jun 14, 2018 BRITTANEY VILLEDA TAMSULOSIN HCL 0.4MG CAP TAKE ONE CAPSUL E BY MOUTH ONCE A DAY FOR PROSTATE. TAKE AT THE SAME TIME EACH DAY WITH FOOD. 90 August 01 0 [id number] Jun 24, 2019 BRITTANEY VILLEDA [facility] TIOTROPIUM 2.5MCG/ACTUAT INHL,ORAL,60D,4GM Active INHALE 2 PUFFS BY ORAL INHALATION ONCE A DAY FOR BREATHING. DON'T USE WITH IPRATROPIUM - REPLACES ADVAIR. 3 Jun 24, 2020 [id number] Jun 24, 2019 BRITTANEY VILLEDA TIOTROPIUM 2.5MCG/ACTUAT INHL,ORAL,60D,4GM Discontinued INHALE 2 PUFFS BY ORAL INHALATION ONCE A DAY FOR BREATHING. DON'T USE WITH IPRATROPIUM - REPLACES ADVAIR. 3 Oct 13, 2019 [id number] Mar 18, 2019 BRITTANEY VILLEDA [facility] Problems (Conditions): All historical and current Section Date Range: From patient's date of to the date document was create d. This section includes a list of Problems (Conditions) know n to [place] for the patient. It includes both active and inacti ve problems (conditions). The data comes from all [place] treatment facilities. Problem Status Problem Code Date of Onset Date of Resolution Comm ent(s) Provider Source Actinic keratosis (SNOMED CT 077362841) Active 702.0 BRITTANEY VILLEDA [facility] Alcohol Dependence * (ICD-9-CM 303.90/303.91) Active 303.90 ALEXANDRA KWONG [facility] Anemia Active 285.9 SATHISH SCOTT [facility] ANGINA PECTORIS NEC/NOS 413.9 Active 413.9 W ALEXANDRA DE JESUS [facility] Anxiety Disorder Active 300.00 AURELIANO LINCOLN MD [facility] Benign Neoplasm Skin Head, Neck, Scalp Active 216.4 RENALDO DACOSTA [facility] CABG Active 799.9 Oct 05, 2006 E ntered By: SATHISH SCOTT Comment: feb, 4-vessel SATHISH SCOTT [facility] Chest discomfort (SNOMED CT 172782390) Active 786.59 BRITTANEY VILLEDA [facility] Chronic airway obstruction, Not Elsewhere Classified Active 496. AURELIANO LINCOLN MD [facility] Chronic Low Back Pain Active 724.2 AUREILANO LINCOLN MD [facility] COPD * (ICD-9-CM 496.) Active 496. Robin SCOTT [facility] Coronary Artery Disease * (ICD-9-CM 414.9) Active 414.9 ALEXANDRA KWONG [facility] Coronary Atherosclerosis of [place] Coronary Vessel Active 414.01 August 03, 2010 Entered By: AURELIANO LINCOLN MD Comment: Bypass surgery AURELIANO LINCOLN MD [facility] Disorder of shoulder (SNOMED CT 339834655) Active 719.91 BRITTANEY VILLEDA [facility] Essential Hypertension Active 401.9 AURELIANO LINCOLN MD [facility] Hyperlipidemia Active 272.4 SATHISH SCOTT [facility] HYPERTENSION NOS 401.9 Active 401.9 ALEXANDRA KWONG [facility] Impotence (SNOMED CT 074772108) Active 302.72 BRITTANEY VILLEDA [facility] 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 AURELIANO LIU MD [facility] Marijuana Dependence unspecified Active 304.30 AURELIANO LINCOLN MD [facility] Microscopic Hematuria (ICD-9-CM 599.72) Active 599.72 BEVERLY SALINAS KIT [facility] Other and unspecified hyperlipidemia Active 272.4 AURELIANO LINCOLN MD [facility] Other, mixed, or unspecified drug abuse, continuous use Active 30 5.91 Jan 30, 2009 Entered By: SATHISH SCOTT Comment: urine drug screen positive for opitates and marijuannaMay 2009 Entered By: SATHISH SCOTT Comment: buying hydrocodone "off the street" [facility] SCOTT [facility] Pain in joint involving ankle and foot (ICD-9-CM 719.47) Active 719 .47 SATHISH SCOTT [facility] Papular eruption (SNOMED CT 975924819) Active 709.8 [facility]ITTANEY VILLEDA [facility] Personal History of Noncompliance with M edical Treatment, Presenting Hazards to Active V15.81 SATHISH SCOTT [facility] Tobacco dependence syndrome (SNOMED CT 42632449) Active [id number] July 24, 2009 Entered By: SATHISH SCOTT Comment: one ppd YUMI AVILA [facility] Transient Ischemic Attack * (ICD-9-CM 435.9) Active 435.9 SATHISH SCOTT [facility] ANIETY STAT NOS 300.00 Inactive 300.00 Jan 05, 2005 [facility]DRA FLOREZ [facility] Bronchitis * (ICD-9-CM 490.) Inactive 490. Jan 05, 2005 [facility]ANE[facility]ILLEDA [facility] Postsurgical Aortocoronary Bypass Status (ICD-9-CM V45.81) Inactive V45.81 Oct 05, 2006 SATHISH SCOTT [facility] Radiology Reports: +/- 30 days of the encounter No Data Provided for This Section Pathology Reports: +/- 30 days of the encounter No Data Provided for This Section Encounter Notes: All associated encounter notes This section contains the clinical notes associated to the Encounter. Date/Time Encounter Note(s) Provider Source Oct 16, 2018 01:03 PM ADMINISTRATIVE NOTE: LOCAL TITLE: [place] STANDARD TITLE: ADMINISTRATIVE NOTE DATE OF NOTE: OCT 16, 2018@13:03 ENTRY DATE: OCT 16, 2018@13:03:13 AUTHOR: GRIFFIN WELLS EXP COSIGNER: URGENCY: STATUS: COMPLETED MSA Administrative Note: RECORDS RECEIVED TODAY by: Fax Nature of report:Secondary Authorization Req for Pulmonary Rehab Date(s) of record(s):10/16/28 Sending libertarian:BRANDON Nazario /nuno/ GRIFFIN WELLS MSA Signed: 10/16/2018 13:04 GRIFFIN WELLS [facility]
--- OUTSIDE RECORDS SUMMARY | 2019-08-16 03:59 | XMS REPORT | Encounter Summary ---
Author [facility] Organization [facility] Address [address] [place] [phone] Phone Unavailable Care Team Providers Care Insurance Sales Executive Name Role Phone BRITTANEY VILLEDA PCP [...] PART B Apr 13, 2007 PART B [id number] [phone] JUAN MANUEL MARTIN PATIENT MEDICARE (WNR) MEDICARE (M) PART B Apr 13, 2007 PART B [id number] [phone] JUAN MANUEL MARTIN PATIENT MEDICARE (WNR) MEDICARE (M) PART A Sep 10, 2005 PART A [id number] JUAN MANUEL MARTIN PATIENT MEDICARE (WNR) MEDICARE (M) PART A Sep 10, 2005 PART A [id number] JUAN MANUEL MARTIN PATIENT MEDICARE (WNR) MEDICARE (M) PART A Sep 10, 2005 PART A [id number] VERONICAJUAN MANUEL PATIENT Selected Encounter This section includes the information on record at DC for the Encounter. Date/Time Encounter Type Encounter Description Reason Provider Source Oct 04, 2018 10:01 AM Outpatient Encounter ADMIN PAT ACTIVTIES (MELANIE CUADRA) [facility] IHE Encounter Template Text not used [...] 02, 2019 08:30 AM AMBULATORY - NONE [facility] Jan 08, 2019 09:00 AM AMBULATORY - MEDICINE [facility] Jan 23, 2019 09:15 AM AMBULATORY - NONE [facility] Surgical Procedures: All associated to the [...] and tobacco- related health factors from the [place] facility where the Encounter took place. Current Smoking Status This section includes the most current smoking, or tobacco -related health factor, from the [place] facility where the Encounter took place. Date/Time Current Smoking Status Comment Facility May 28, 2018 11:45 AM VA-TOBACCO FORMER USER [facility] Tobacco Use History This section includes a history of the smoking, or tobacco -related health factors, that were collected on or before the date of the Encoun ter. The data comes from the [place] facility where the Encounter took place. Date/Time Smoking Status/Tobacco Use Comment [facility] May 28, 2018 11:45 AM VA-TOBACCO QUIT 15 YRS OR MORE [place] [facility] Dec 25, 2017 02:23 PM NON-TOBACCO USER [facility] Jan 25, 2017 09:53 AM NON-TOBACCO USER [facility] Dec 22, 2015 09:45 AM NON-TOBACCO USER [facility] Advance Directives: All historical and current Section [...] Oct 17, 2000 ADVANCE DIRECTIVE EUNICE RODRIGUEZ [facility], [facility] 15 Allergies and Adverse [...] [facility] No Allergy Assessment on File JEOVANNY [...] A DAY NEEDED 180 Jan 09, 2020 [id number] Apr 10, 2019 MAK VILLEDA CBTERRENCE ALBUTEROL SO4 0.083% INHL,3ML Discontinued USE 3 MLS IN NEBULIZER FOR INHALATION TWO TIMES A DAY NEEDED 180 Jan 27, 2019 [id number] Nov 01, 2018 BRITTANEY VENEGAS ALBUTEROL SO4 90MCG/ACTUAT (CFC-F) INHL,ORAL,6.7GM Active INHALE 2 PUFFS BY ORAL INHALATION TWO TIMES A DAY NEEDED - RINSE MOUTHPIECE FREQUENTLY TO PREVENT CLOGGING 2 Aug 30, 2019 [id number] Mar 18, 2019 BRITTANEY VILLEDA CBTERRENCE ALBUTEROL SO4 90MCG/ACTUAT (CFC-F) INHL,ORAL,6.7GM Discontin ued INHALE 2 PUFFS BY ORAL INHALATION TWO TIMES A DAY NEEDED - RINSE MOUTHPIECE FREQUENTLY TO PREVENT CLOGGING 2 Mar 27, 2019 [id number] Aug 30, 2018 BRITTANEY VILLEDA BUDESONIDE 80MCG/FORMOTEROL FUM 4.5MCG/SPRAY INHL,ORAL,10.2G M Active INHALE 2 PUFFS BY ORAL INHALATION TWO TIMES A DAY FOR BREATHING. SHAKE WELL. RINSE MOUTH AND SPIT AFTER EACH USE. 3 Jun 24, 2020 [id number] Jun 24, 2019 BRITTANEY VILLEDA BUDESONIDE 80MCG/FORMOTEROL FUM 4.5MCG/SPRAY INHL,ORAL,10.2G M Discontinued INHALE 2 PUFFS BY ORAL INHALATION TWO TIMES A DAY FOR BREATHING. SHAKE WELL. RINSE MOUTH AND SPIT AFTER EACH USE. 3 Dec 07, 2019 [id number] Mar 18, 2019 BRITTANEY VILLEDA FERROUS SO4 324MG TAB,EC Active TAKE ONE TABLET BY MOUTH TWO TIMES A DAY FOR IRON SUPPLEMENTATION. MAY TAKE WITH FOOD IF NOT TOLERATED ON EMPTY STOMACH 200 Jan 09, 2020 [id number] Apr 23, 2019 BRITTANEY VILLEDA [facility] FERROUS SO4 324MG TAB,EC Discontinued TAKE ONE TABLET BY MOUTH TWO TIMES A DAY FOR IRON SUPPLEMENTATION. MAY TAKE WITH FOOD IF NOT TOLERATED ON EMPTY STOMACH 200 May 02, 2019 [id number] Nov 14, 2018 BRITTANEY VILLEDA C FOLIC ACID 1MG TAB Active TAKE ONE TABLET BY MOUTH ONCE A DAY 90 Nov 22, 2019 [id number] Mar 18, 2019 BRITTANEY VILLEDA FOLIC ACID 1MG TAB Discontinued TAKE ONE TABLET BY MOUTH ONCE A DAY 90 May 02, 2019 [id number] Sep 26, 2018 BRITTANEY VILLEDA GABAPENTIN 300MG CAP Discontinued TAKE 2 CAPSULES BY MOUTH FOUR TITO ES A DAY 720 Jan 27, 2019 [id number] Nov 14, 2018 BRITTANEY VILLEDA GABAPENTIN 400MG CAP Active TAKE 1 CAPSULE BY MOUTH THREE TITO ES A DAY 270 Dec 07, 2019 [id number] Mar 18, 2019 BRITTANEY VILLEDA HYDROCODONE 10MG/ACETAMINOPHEN 325MG TAB Non-VA TAKE ONE TABLET BY MOUTH FOUR TIMES A DAY Non-VA Documented by: RAMY TRENT nted at: [facility]EF[facility] SPAIN LISINOPRIL 10MG TAB Discontinued TAKE ONE-HALF TABLET BY MOUTH EVERY MORNING FOR HEART OR HIGH BLOOD PRESSURE 15 Jun 01, 2019 [id number] Jun 02, 2018 BRITTANEY VILLEDA [facility] LOSARTAN 25MG TAB Active TAKE ONE TABLET BY MOUTH ONCE A DAY FOR BLOOD PRESSURE 90 Jan 09, 2020 [id number] Apr 23, 2019 BRITTANEY VILLEDA C LOSARTAN 25MG TAB Discontinued TAKE ONE TABLET BY M OUTH ONCE A DAY FOR BLOOD PRESSURE 90 July 13, 2019 [id number] Nov 14, 2018 TIERRA KWONG [facility] MELOXICAM 15MG TAB TAKE ONE TABLET BY M OUTH ONCE A DAY FOR PAIN OR INFLAMMATION. 90 Jun 01, 2019 [id number] Mar 18, 2019 RONAL,BRITTANEY B P [facility] METOPROLOL TARTRATE 25MG TAB Active TAKE ONE-SMITH LF TABLET BY MOUTH TWO TIMES A DAY FOR HEART/BLOOD PRESSURE. TAKE WITH OR IMMEDIATELY FOLLOWING FOOD. 90 Jan 09, 2020 [id number] Apr 23, 2019 BRITTANEY VILLEDA METOPROLOL TARTRATE 25MG TAB Discontinued TAKE ONE-SMITH LF TABLET BY MOUTH TWO TIMES A DAY FOR HEART/BLOOD PRESSURE. TAKE WITH OR IMMEDIATELY FOLLOWING FOOD. 90 July 13, 2019 [id number] Nov 14, 2018 TIERRA KWONG [facility] SIMVASTATIN 40MG TAB Active TAKE ONE-HALF TABLE T BY MOUTH AT BEDTIME FOR CHOLESTEROL - REPORT ANY UNEXPLAINED MUSCLE PAIN OR WEAKNESS TO YOUR PROVIDER 45 Sep 27, 2019 [id number] Jun 24, 2019 BRITTANEY VILLEDA C[facility] C SIMVASTATIN 40MG TAB Discontinued TAKE ONE-HALF TABLE T BY MOUTH AT BEDTIME FOR CHOLESTEROL - REPORT ANY UNEXPLAINED MUSCLE PAIN OR WEAKNESS TO YOUR PROVIDER 45 Sep 23, 2018 [id number] Jul 05, 2018 BRITTANEY VILLEDA [facility] TAMSULOSIN HCL 0.4MG CAP Discontinued TAKE ONE CAPSUL E BY MOUTH ONCE A DAY FOR PROSTATE. TAKE AT THE SAME TIME EACH DAY WITH FOOD. 90 Jun 17 9 [id number] Jun 14, 2018 BRITTANEY VILLEDA TAMSULOSIN HCL 0.4MG CAP TAKE ONE CAPSUL E BY MOUTH ONCE A DAY FOR PROSTATE. TAKE AT THE SAME TIME EACH DAY WITH FOOD. 90 August 01 0 [id number] Jun 24, 2019 BRITTANEY VILLEDA [facility] TIOTROPIUM 2.5MCG/ACTUAT INHL,ORAL,60D,4GM Active INHALE 2 PUFFS BY ORAL INHALATION ONCE A DAY FOR BREATHING. DON'T USE WITH IPRATROPIUM - REPLACES ADVAIR. 3 Jun 24, 2020 [id number] Jun 24, 2019 BRITTANEY VILLEDA TIOTROPIUM 2.5MCG/ACTUAT INHL,ORAL,60D,4GM Discontinued INHALE 2 PUFFS BY ORAL INHALATION ONCE A DAY FOR BREATHING. DON'T USE WITH IPRATROPIUM - REPLACES ADVAIR. 3 Oct 13, 2019 [id number] Mar 18, 2019 BRITTANEY VILLEDA [facility] Problems (Conditions): All historical and current Section Date Range: From patient's date of to the date document was create d. This section includes a list of Problems (Conditions) know n to DC for the patient. It includes both active and inacti ve problems (conditions). The data comes from all [place] treatment facilities. 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 AURELIANO LINCOLN MD [facility] Chronic Low Back Pain Active 724.2 AURELIANO LINCOLN MD [facility] COPD * (ICD-9-CM 496.) Active 496. Robin SCOTT [facility] Coronary Artery Disease * (ICD-9-CM 414.9) Active 414.9 ALEXANDRA KWONG [facility] Coronary Atherosclerosis of [place] Coronary Vessel Active 414.01 August 03, 2010 Entered By: AURELIANO LINCOLN MD Comment: Bypass surgery AURELIANO LINCOLN MD [facility] Disorder of shoulder (SNOMED CT 213185084) Active 719.91 BRITTANEY VILLEDA [facility] Essential Hypertension Active 401.9 AURELIANO LINCOLN MD [facility] Hyperlipidemia Active 272.4 SATHISH SCOTT [facility] HYPERTENSION NOS 401.9 Active 401.9 ALEXANDRA KWONG [facility] Impotence (SNOMED CT 675632692) Active 302.72 BRITTANEY VILLEDA [facility] 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 [...] buying hydrocodone "off the street" [facility] Pain in joint involving ankle and foot (ICD-9-CM 719.47) Active 719 .47 [facility] Papular eruption (SNOMED CT 320760821) Active 709.8 [facility] Personal History of Noncompliance with M edical Treatment, Presenting Hazards to Active V15.81 [facility] Tobacco dependence syndrome (SNOMED CT 89241105) Active [id number] July 24, 2009 Entered By: SATHISH SCOTT Comment: one ppd YUMI AVILA [facility] Transient Ischemic Attack * (ICD-9-CM 435.9) Active 435.9 SAHTISH SCOTT [facility] ANIETY STAT NOS 300.00 Inactive 300.00 Jan 05, 2005 [facility]DRA FLORE[facility] Bronchitis * (ICD-9-CM 490.) Inactive 490. Jan 05, 2005 [facility]ED[facility] Postsurgical Aortocoronary Bypass Status (ICD-9-CM V45.81) Inactive V45.81 Oct 05, 2006 SATHISH SCOTT [facility] Radiology Reports: +/- 30 days of the encounter No Data Provided for This Section Pathology Reports: +/- 30 days of the encounter No Data Provided for This Section Encounter Notes: All associated encounter notes This section contains the clinical notes associated to the Encounter. Date/Time Encounter Note(s) Provider Source Oct 04, 2018 10:04 AM DIAGNOSTIC STUDY REPORT: LOCAL TITLE: WI-FORM LETTER DIAGNOSTIC RESULTS STANDARD TITLE: DIAGNOSTIC STUDY REPORT DATE OF NOTE: OCT 04, 2018@10:04 ENTRY DATE: OCT 04, 2018@10:04:50 AUTHOR: BELLA CHOUDHURY COSIGNER: URGENCY: STATUS: COMPLETED [facility] [address] [place] [address] JUAN MANUEL MARTIN [address] [place] [address], [id number] Sep Dear JUAN MANUEL MARTIN, The purpose of this letter is to inform you of your test results done recently at the [facility],[place], [place]. LABORATORY results were abnormal Comments: Hemoglobin slightly low at 12.3, stable RTC slightly low at 3.76 stable no change since mar 2018 Continue with folic acid and ferrous sulfate as directed. Return to clinic in 3 mos for cbc with differential These test results are reported to you to keep you informed and involved in your health care. If you have any question about these results, please contact your health care provider at or . Option #2. Thank you! Your Primary Care Team. BELLA CHOUDHURY OC
--- OUTSIDE RECORDS SUMMARY | 2019-08-16 04:00 | XMS REPORT | Encounter Summary ---
Author Author Department [facility] Organization Department of [facility] Address [address] [place] [phone] Phone Unavailable Care Team Providers Care Software Manager Name Role Phone BRITTANEY VILLEDA PCP [...] PART B Apr 13, 2007 PART B [id number] [phone] JUAN MANUEL MARTIN PATIENT MEDICARE (WNR) MEDICARE (M) PART B Apr 13, 2007 PART B [id number] [phone] JUAN MANUEL MARTIN PATIENT MEDICARE (WNR) MEDICARE (M) PART A Sep 10, 2005 PART A [id number] [phone] JUAN MANUEL MARTIN PATIENT MEDICARE (WNR) MEDICARE (M) PART A Sep 10, 2005 PART A [id number] [phone] JUAN MANUEL MARTIN PATIENT MEDICARE (WNR) MEDICARE (M) PART A Sep 10, 2005 PART A [id number] [phone] MARTINJUAN MANUEL PATIENT Selected Encounter This section includes the information on record at [place] for the Encounter. Date/Time Encounter Type Encounter Description Reason Provider Source Aug 15, 2018 02:31 PM Outpatient Encounter TELEPHONE PRIMARY CAR E ICD-10-CM Z71.2 Person consulting for explanation of exam or test findings with Provider Comments: Explanation of Exam or Test Finding BELLA CHOUDHURY [facility] IHE Encounter Template Text not used by [place] Assessments - Encounter Diagnoses This section includes the primary and secondary diag noses documented for the Encounter. Date/Time Primary/Secondary Diagnosis Diagnosis Name Provider Source Aug 15, 2018 02:31 PM PRIMARY Person consulting for explanation of exam or test findings BELLA CHOUDHURY [facility] Plan of Treatment: Future Appointments (+ [...] appointme nts. The data comes from all [facility]. Appointment Date/Time Appointment Type Appointment Facili ty Name Nov 02, 2018 09:00 AM AMBULATORY - MEDICINE [facility] Jan 02, 2019 08:30 AM AMBULATORY - NONE [facility] Jan 08, 2019 09:00 AM AMBULATORY - MEDICINE [facility] Jan 23, 2019 09:15 AM AMBULATORY - NONE [facility] Active, Pending, and Scheduled Orders This section includes a listing of several types of activ e, pending, and scheduled orders, including clinic medications orders, diagnosti c test orders, procedure orders and consult orders; where the start date of th e order is 45 days before the date of the Encounter or 45 days after the date o f the Encounter. The data comes from all [facility]. Test Date/Time Test Type Test Details Facility Name Jul 02, 2018 02:42 PM Consult Order REPLACED BY [id number] Cons In Room Dining Server's Choice KO [facility] Surgical Procedures: All associated to the encounter No Data Provided for This Section Lab Results: +/- 30 days of the encounter This section includes the Chemistry and Hematology Lab R esults on record with [place] for the patient. Radiology Reports and Pathology Report s are provided separately, in subsequent sections. Lab Results This section contains the Chemistry/Hematology Results kenyatta t were resulted 30 days before or 30 days after the date of the Encounter. Date/Time Source Result Type Result - Unit Interpretation Reference Range Comment Aug 15, 2018 08:45 AM [facility] CBC & DIFF Specimen Type: BLOOD No comment entered. WBC 8.5 K/cmm 3.60-11.20 RBC 3.76 M/ul L 4.1-5.7 HGB 12.3 g/dl L 13.1-16.8 HCT 36.7 % L 38.2-48.4 MCV 97.6 fl 80.1-98.5 MCH 32.7 pg 27.0-34.0 MCHC 33.5 g/dl 33.0-36.0 PLATELET COUNT 304 K/cmm 150-400 MPV 9.3 fl 7.5-11.2 RDW 12.3 % 11.8-15.1 LYMPHOCYTES, AUTO% 26.0 % NEUTROPHILS, AUTO % 63.7 % MONOCYTES, AUTO% 6.7 % MONOCYTES, ABSOLUTE 0.6 K/cmm 0.19-0.80 NEUTROPHILS, ABSOLUTE 5.4 K/cmm 2.10-8.0 0 EOSINOPHILS, ABSOLUTE 0.2 K/cmm 0.00-0.6 0 BASOPHILS, ABSOLUTE 0.1 K/cmm 0.00-0.20 EOSINOPHILS, AUTO% 2.5 % BASOPHILS, AUTO% 0.6 % LYMPHOCYTES, ABSOLUTE 2.2 K/cmm 0.77-4.5 0 IMMATURE GRANS, ABSOLUTE 0.04 K/cmm 0.00 -0.05 IMMATURE GRANS, AUTO % 0.5 % Vital Signs: All taken on the encounter date No Data Provided for This Section Immunizations: All administered on the encounter date No Data Provided for This Section Social History: Smoking Status (Most current) and Tobacco Use (All prior to enco unter date) This section includes the most current, and the historical, smoking and tobacco- related health factors from the [place] facility where the Encounter took place. Current Smoking Status This section includes the most current smoking, or tobacco -related health factor, from the [place] facility where the Encounter took place. Date/Time Current Smoking Status Comment Facility May 28, 2018 11:45 AM [place]-TOBACCO FORMER USER [facility] Tobacco Use History This section includes a history of the smoking, or tobacco -related health factors, that were collected on or before the date of the Encoun ter. The data comes from the [place] facility where the Encounter took place. Date/Time Smoking Status/Tobacco Use Comment Leanna barbosa May 28, 2018 11:45 AM [facility]-TOBACCO QUIT 15 YRS OR MORE [facility] Dec 25, 2017 02:23 PM NON-TOBACCO [...] ADVANCE DIRECTIVE DISCUSSION FLO KRUEGER [facility] Oct 17, 2000 ADVANCE DIRECTIVE EUNICE RODRIGUEZ [facility], [facility] 15 Allergies and Adverse Reactions [...] Type Reaction(s) Severity Source No Known Allergies [facility] No Allergy Assessment on File [facility] Medications: VA dispensed (-15 months) and Non-VA Documented (Obtained Outside A) Section Date Range: 1) prescriptions processed by a VA pharmacy in the last 15 m [facility], and 2) all medications recorded in [...] medication received during a visit to a VA clinic or emergency department (currently not available).Discontinued = A prescription stopped by a VA provider. It is no longer available to be filled. = A prescription which is too old to fill. This does not refer to the expiration date of the medication in the container. Non-VA = A medication that came from someplace other than a [place] pharmacy. This may be a prescription from [...] A DAY NEEDED 180 Jan 09, 2020 [id number] Apr 10, 2019 MAK VILLEDA CBTERRENCE ALBUTEROL SO4 0.083% INHL,3ML Discontinued USE 3 MLS IN NEBULIZER FOR INHALATION TWO TIMES A DAY NEEDED 180 Jan 27, 2019 [id number] Nov 01, 2018 BRITTANEY VENEGAS ALBUTEROL SO4 90MCG/ACTUAT (CFC-F) INHL,ORAL,6.7GM Active INHALE 2 PUFFS BY ORAL INHALATION TWO TIMES A DAY NEEDED - RINSE MOUTHPIECE FREQUENTLY TO PREVENT CLOGGING 2 Aug 30, 2019 [id number] Mar 18, 2019 BRITTANEY VILLEDA CBOC ALBUTEROL SO4 90MCG/ACTUAT (CFC-F) INHL,ORAL,6.7GM Discontin ued INHALE 2 PUFFS BY ORAL INHALATION TWO TIMES A DAY NEEDED - RINSE MOUTHPIECE FREQUENTLY TO PREVENT CLOGGING 2 Mar 27, 2019 [id number] Aug 30, 2018 BRITTANEY VILLEDA BUDESONIDE 80MCG/FORMOTEROL FUM 4.5MCG/SPRAY INHL,ORAL,10.2G M Active INHALE 2 PUFFS BY ORAL INHALATION TWO TIMES A DAY FOR BREATHING. SHAKE WELL. RINSE MOUTH AND SPIT AFTER EACH USE. 3 Jun 24, 2020 [id number] Jun 24, 2019 BRITTANEY VILLEDA BUDESONIDE 80MCG/FORMOTEROL FUM 4.5MCG/SPRAY INHL,ORAL,10.2G M Discontinued INHALE 2 PUFFS BY ORAL INHALATION TWO TIMES A DAY FOR BREATHING. SHAKE WELL. RINSE MOUTH AND SPIT AFTER EACH USE. 3 Dec 07, 2019 [id number] Mar 18, 2019 BRITTANEY VILLEDA FERROUS SO4 324MG TAB,EC Active TAKE ONE TABLET BY MOUTH TWO TIMES A DAY FOR IRON SUPPLEMENTATION. MAY TAKE WITH FOOD IF NOT TOLERATED ON EMPTY STOMACH 200 Jan 09, 2020 [id number] Apr 23, 2019 BRITTANEY VILLEDA FERROUS SO4 324MG TAB,EC Discontinued TAKE ONE TABLET BY MOUTH TWO TIMES A DAY FOR IRON SUPPLEMENTATION. MAY TAKE WITH FOOD IF NOT TOLERATED ON EMPTY STOMACH 200 May 02, 2019 [id number] Nov 14, 2018 BRITTANEY VILLEDA C FOLIC ACID 1MG TAB Active TAKE ONE TABLET BY MOUTH ONCE A DAY 90 Nov 22, 2019 [id number] Mar 18, 2019 BRITTANEY VILLEDA FOLIC ACID 1MG TAB Discontinued TAKE ONE TABLET BY MOUTH ONCE A DAY 90 May 02, 2019 [id number] Sep 26, 2018 BRITTANEY VILLEDA GABAPENTIN 300MG CAP Discontinued TAKE 2 CAPSULES BY MOUTH FOUR TITO ES A DAY 720 Jan 27, 2019 [id number] Nov 14, 2018 BRITTANEY VILLEDA GABAPENTIN 400MG CAP Active TAKE 1 CAPSULE BY MOUTH THREE TITO ES A DAY 270 Dec 07, 2019 [id number] Mar 18, 2019 BRITTANEY VILLEDA HYDROCODONE 10MG/ACETAMINOPHEN 325MG TAB Non-VA TAKE ONE TABLET BY MOUTH FOUR TIMES A DAY Non-VA Documented by: RAMY TRENT nted at: STEFANI SPAIN LISINOPRIL 10MG TAB Discontinued TAKE ONE-HALF TABLET BY MOUTH EVERY MORNING FOR HEART OR HIGH BLOOD PRESSURE 15 Jun 01, 2019 [id number] Jun 02, 2018 BRITTANEY VILLEDA LOSARTAN 25MG TAB Active TAKE ONE TABLET BY MOUTH ONCE A DAY FOR BLOOD PRESSURE 90 Jan 09, 2020 [id number] Apr 23, 2019 BRITTANEY VILLEDA C LOSARTAN 25MG TAB Discontinued TAKE ONE TABLET BY M OUTH ONCE A DAY FOR BLOOD PRESSURE 90 July 13, 2019 [id number] Nov 14, 2018 TIERRA KWONG [facility] MELOXICAM 15MG TAB TAKE ONE TABLET BY M OUTH ONCE A DAY FOR PAIN OR INFLAMMATION. 90 Jun 01, 2019 [id number] Mar 18, 2019 BRITTANEY VILLEDA CBTERRENCE METOPROLOL TARTRATE 25MG TAB Active TAKE ONE-SMITH LF TABLET BY MOUTH TWO TIMES A DAY FOR HEART/BLOOD PRESSURE. TAKE WITH OR IMMEDIATELY FOLLOWING FOOD. 90 Jan 09, 2020 [id number] Apr 23, 2019 BRITTANEY VILLEDA CBOC METOPROLOL TARTRATE 25MG TAB Discontinued TAKE ONE-SMITH LF TABLET BY MOUTH TWO TIMES A DAY FOR HEART/BLOOD PRESSURE. TAKE WITH OR IMMEDIATELY FOLLOWING FOOD. 90 July 13, 2019 [id number] Nov 14, 2018 TIERRA KWONG [facility] SIMVASTATIN 40MG TAB Active TAKE ONE-HALF TABLE T BY MOUTH AT BEDTIME FOR CHOLESTEROL - REPORT ANY UNEXPLAINED MUSCLE PAIN OR WEAKNESS TO YOUR PROVIDER 45 Sep 27, 2019 [id number] Jun 24, 2019 BRITTANEY VILLEDA CBO C SIMVASTATIN 40MG TAB Discontinued TAKE ONE-HALF TABLE T BY MOUTH AT BEDTIME FOR CHOLESTEROL - REPORT ANY UNEXPLAINED MUSCLE PAIN OR WEAKNESS TO YOUR PROVIDER 45 Sep 23, 2018 [id number] Jul 05, 2018 BRITTANEY VILLEDA CBO C TAMSULOSIN HCL 0.4MG CAP Discontinued TAKE ONE CAPSUL E BY MOUTH ONCE A DAY FOR PROSTATE. TAKE AT THE SAME TIME EACH DAY WITH FOOD. 90 Jun 17 9 [id number] Jun 14, 2018 BRITTANEY VILLEDA TAMSULOSIN HCL 0.4MG CAP TAKE ONE CAPSUL E BY MOUTH ONCE A DAY FOR PROSTATE. TAKE AT THE SAME TIME EACH DAY WITH FOOD. 90 August 01 0 [id number] Jun 24, 2019 BRITTANEY VILLEDA TIOTROPIUM 2.5MCG/ACTUAT INHL,ORAL,60D,4GM Active INHALE 2 PUFFS BY ORAL INHALATION ONCE A DAY FOR BREATHING. DON'T USE WITH IPRATROPIUM - REPLACES ADVAIR. 3 Jun 24, 2020 [id number] Jun 24, 2019 BRITTANEY VILLEDA TIOTROPIUM 2.5MCG/ACTUAT INHL,ORAL,60D,4GM Discontinued INHALE 2 PUFFS BY ORAL INHALATION ONCE A DAY FOR BREATHING. DON'T USE WITH IPRATROPIUM - REPLACES ADVAIR. 3 Oct 13, 2019 [id number] Mar 18, 2019 BRITTANEY VILLEDA PARS ONS [facility] Problems (Conditions): All historical and current [...] ent(s) Provider Source Actinic keratosis (SNOMED CT 398000172) Active 702.0 BRITTANEY VILLEDA [facility] Alcohol Dependence * (ICD-9-CM 303.90/303.91) Active 303.90 ALEXANDRA KWONG [facility] Anemia Active 285.9 SATHISH SCOTT [facility] ANGINA PECTORIS NEC/NOS 413.9 Active 413.9 [facility] Anxiety Disorder Active 300.00 AURELIANO LINCOLN MD [facility] Benign Neoplasm Skin Head, Neck, Scalp Active 216.4 RENALDO DACOSTA [facility] CABG Active 799.9 Oct 05, 2006 E ntered By: SATHISH SCOTT Comment: feb, 4-vessel SATHISH SCOTT [facility] Chest discomfort (SNOMED CT 459317756) Active 786.59 BRITTANEY VILLEDA [facility] Chronic airway obstruction, Not Elsewhere Classified Active 496. AURELIANO LINCOLN MD [facility] Chronic Low Back Pain Active 724.2 AURELIANO LINCOLN MD [facility] COPD * (ICD-9-CM 496.) Active 496. Robin SCOTT [facility] Coronary Artery Disease * (ICD-9-CM 414.9) Active 414.9 ALEXANDRA KWONG [facility] Coronary Atherosclerosis of [place] Coronary Vessel Active 414.01 August 03, 2010 Entered By: AURELIANO LINCOLN MD Comment: Bypass surgery AURELIANO LINCOLN MD [facility] Disorder of shoulder (SNOMED CT [id number]) Active 719.91 [facility] Essential Hypertension Active 401.9 AURELIANO LINCOLN MD [facility] Hyperlipidemia Active 272.4 SATHISH SCOTT [facility] HYPERTENSION NOS 401.9 Active 401.9 ALEXANDRA KWONG [facility] Impotence (SNOMED CT 047556928) Active 302.72 [facility] 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 AURELIANO LIU MD [facility] Marijuana Dependence unspecified Active 304.30 AURELIANO LINCOLN MD [facility] Microscopic Hematuria (ICD-9-CM 599.72) Active 599.72 [facility] Other and unspecified hyperlipidemia Active 272.4 AURELIANO LINCOLN MD [facility] Other, mixed, or unspecified drug abuse, continuous use Active 30 5.91 Jan 30, 2009 Entered By: SATHISH SCOTT Comment: urine drug screen positive for opitates and marijuannaMay 2009 Entered By: SATHISH SCOTT Comment: buying hydrocodone "off the street" SATHISH SCOTT [facility] Pain in joint involving ankle and foot (ICD-9-CM 719.47) Active 719 .47 SATHISH SCOTT [facility] Papular eruption (SNOMED CT 231982324) Active 709.8 BRITTANEY VILLEDA [facility] Personal History of Noncompliance with M edical Treatment, Presenting Hazards to Active V15.81 SATHISH SCOTT [facility] Tobacco dependence syndrome (SNOMED CT 09981000) Active [id number] July 24, 2009 Entered By: SATHISH SCOTT Comment: one ppd YUMI AVILA [facility] Transient Ischemic Attack * (ICD-9-CM 435.9) Active 435.9 SATHISH SCOTT [facility] ANIETY STAT NOS 300.00 Inactive 300.00 Jan 05, 2005 ALEXANDRA FLOREZ YUMI Osuna [facility] Bronchitis * (ICD-9-CM 490.) Inactive 490. Jan 05, 2005 BRITTANEY VILLEDA [facility] Postsurgical Aortocoronary Bypass Status (ICD-9-CM V45.81) Inactive V45.81 Oct 05, 2006 SATHISH SCOTT [facility] Radiology Reports: +/- 30 days of the encounter Radiology Reports For cases when an order for radiology services may have bee n completed prior to the date of the Encounter, the report list includes the Rad iology Reports that were completed up to 30 days before date of the Encounter. F or cases when an order for radiology services may have been completed after the date of the Encounter, the report list also includes the Radiology Reports that were completed up to 30 days after date of the Encounter. The data comes from [facility] treatment facilities. Date/Time Radiology Report Provider Source August 07, 2018 02:11 PM MRI CERVICAL SPINE W/O: JUAN MANUEL MARTIN [id number] -[id number] Ex Date: AUGUST 07, 2018@14:11 Req Phys: BRITTANEY VILLEDA Pat Loc: [place] MRI-X (Req'g Loc) Img Loc: OUTSIDE [place]-MRI Service: Unknown (Case [id number] COMPLETE) MRI CERVICAL SPINE W/O (MRI Detailed) CPT:91993 Contrast Media : unspecified contrast media Reason for Study: Outside images/exam. Clinical History: Outside images/exam. Report Status: Electronically Filed Date Reported: Report: Impression: Scanned Document/Radiology Procedure: This verification is for administrative purposes only. This exam was not performed or interpreted by a [place] Physician. MRI report dated 08/07/18 is located in Imaging Display in [employer]. (Go to tools, click imaging display, click on date of report, click on report.) MRI images are available in [employer] and [employer]. VERIFIED BY: / *ELECTRONICALLY FILED* [facility] Pathology Reports: +/- 30 days of the encounter No Data Provided for This Section Encounter Notes: All associated encounter notes No Data Provided for This Section
--- OUTSIDE RECORDS SUMMARY | 2019-08-16 04:00 | XMS REPORT | Encounter Summary ---
Author Author Department 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 Role Phone BRITTANEY VILLEDA PCP [...] PART B Apr 13, 2007 PART B [id number] [phone] JUAN MANUEL MARTIN PATIENT MEDICARE (WNR) MEDICARE (M) PART B Apr 13, 2007 PART B [id number] JUAN MANUEL MARTIN PATIENT MEDICARE (WNR) MEDICARE (M) PART A Sep 10, 2005 PART A [id number] JUAN MANUEL MARTIN PATIENT MEDICARE (WNR) MEDICARE (M) PART A Sep 10, 2005 PART A [id number] [phone] JUAN MANUEL MARTIN PATIENT MEDICARE (WNR) MEDICARE (M) PART A Sep 10, 2005 PART A [id number] MARTINJUAN MANUEL PATIENT Selected Encounter This section includes the information on record at [place] for the Encounter. Date/Time Encounter Type Encounter Description Reason Provider Source Oct 03, 2018 03:43 PM Outpatient Encounter PRIMARY CARE/MEDICINE [facility] IHE Encounter Template Text not used by [place] Assessments - Encounter Diagnoses No Data Provided for This Section Plan of Treatment: Future Appointments (+ 6 months) and Future Tests (+/- 45 day s) The Plan of Treatment section includes future care activities for the patient fr om all [place] treatment facilities. This section includes future appointments and fu ture orders which are active, pending or scheduled. Future Appointments This section includes appointments that were scheduled t o occur 6 months from the date of the Encounter, up to a maximum of 20 appointme nts. The data comes from all [place] treatment facilities. Appointment Date/Time Appointment Type Appointment Facili ty Name Nov 02, 2018 09:00 AM AMBULATORY - MEDICINE [facility] Jan 02, 2019 08:30 AM AMBULATORY - NONE [facility] Jan 08, 2019 09:00 AM AMBULATORY - MEDICINE [facility] Jan 23, 2019 09:15 AM AMBULATORY - NONE [facility] Surgical Procedures: All associated to the [...] and tobacco- related health factors from the [place] facility where the Encounter took place. Current Smoking Status This section includes the most current smoking, or tobacco -related health factor, from the [place] facility where the Encounter took place. Date/Time Current Smoking Status Comment Facility May 28, 2018 11:45 AM VA-TOBACCO FORMER USER [facility] Tobacco Use History This section includes a history of the smoking, or tobacco -related health factors, that were collected on or before the date of the Encoun ter. The data comes from the [place] facility where the Encounter took place. Date/Time Smoking Status/Tobacco Use Comment Facil it May 28, 2018 11:45 AM VA-TOBACCO QUIT 15 YRS OR MORE [place] [facility] Dec 25, 2017 02:23 PM NON-TOBACCO USER [facility] Jan 25, 2017 09:53 AM NON-TOBACCO USER [facility] Dec 22, 2015 09:45 AM NON-TOBACCO USER [facility] Advance Directives: All historical and current [...] docume nt. The data comes from all [place] facilities. Date Advance Directives Provider Source Jan 02, 2018 ADVANCE DIRECTIVE DISCUSSION FLO KRUEGER [facility] Oct 17, 2000 ADVANCE DIRECTIVE EUNICE RODRIGUEZ [facility], [facility] 15 Allergies and Adverse Reactions (ADRs): All historical and current Section Date Range: From patient's date of to the date document was create d. This section includes Allergies and Adverse Reactions (ADR s) on record with [facility] for the patient. The data comes from a ll [place] treatment facilities. It does not list Allergies/ADRs that were removed or entered in error. Some allergies/ADRs may be reported in t he Immunization section. Allergen Event Date Event Type Reaction(s) Severity Source No Known Allergies [facility] No Allergy Assessment on File JEOVANNY MORGAN Medications: VA dispensed (-15 months) and Non-VA Documented (Obtained Outside A) Section Date Range: 1) prescriptions processed by a VA pharmacy in the last 15 m ont, and 2) all medications recorded in the [place] medical record as "non-VA medic ations". Pharmacy terms refer to [place] pharmacy's work on prescriptions. VA patient s are advised to take their medications as instructed by their health care team. The data comes from all [place] treatment facilities. Glossary of Pharmacy Terms:Active = A prescription that can be filled at the local [place] pharmacy.Active: On Hold = An active prescription that will not be filled until pharmacy resolves the issue.Active: Susp = An active prescription that is not scheduled to be filled yet.Clinic Order = A medication received during a visit to a [place] clinic or emergency department (currently not available).Discontinued [...] may be a prescription from either the [place] or other providers that was filled outside the [place]. Or, it may be an over the [...] A DAY NEEDED 180 Jan 09, 2020 [id number] Apr 10, 2019 MAK VILLEDA CBTERRENCE ALBUTEROL SO4 0.083% INHL,3ML Discontinued USE 3 MLS IN NEBULIZER FOR INHALATION TWO TIMES A DAY NEEDED 180 Jan 27, 2019 [id number] Nov 01, 2018 BRITTANEY VENEGAS ALBUTEROL SO4 90MCG/ACTUAT (CFC-F) INHL,ORAL,6.7GM Active INHALE 2 PUFFS BY ORAL INHALATION TWO TIMES A DAY NEEDED - RINSE MOUTHPIECE FREQUENTLY TO PREVENT CLOGGING 2 Aug 30, 2019 [id number] Mar 18, 2019 BRITTANEY VILLEDA ALBUTEROL SO4 90MCG/ACTUAT (CFC-F) INHL,ORAL,6.7GM Discontin ued INHALE 2 PUFFS BY ORAL INHALATION TWO TIMES A DAY NEEDED - RINSE MOUTHPIECE FREQUENTLY TO PREVENT CLOGGING 2 Mar 27, 2019 [id number] Aug 30, 2018 BRITTANEY VILLEDA BUDESONIDE 80MCG/FORMOTEROL FUM 4.5MCG/SPRAY INHL,ORAL,10.2G M Active INHALE 2 PUFFS BY ORAL INHALATION TWO TIMES A DAY FOR BREATHING. SHAKE WELL. RINSE MOUTH AND SPIT AFTER EACH USE. 3 Jun 24, 2020 [id number] Jun 24, 2019 BRITTANEY VLILEDA BUDESONIDE 80MCG/FORMOTEROL FUM 4.5MCG/SPRAY INHL,ORAL,10.2G M Discontinued INHALE 2 PUFFS BY ORAL INHALATION TWO TIMES A DAY FOR BREATHING. SHAKE WELL. RINSE MOUTH AND SPIT AFTER EACH USE. 3 Dec 07, 2019 [id number] Mar 18, 2019 BRITTANEY VILLEDA FERROUS SO4 324MG TAB,EC Active TAKE ONE TABLET BY MOUTH TWO TIMES A DAY FOR IRON SUPPLEMENTATION. MAY TAKE WITH FOOD IF NOT TOLERATED ON EMPTY STOMACH 200 Jan 09, 2020 [id number] Apr 23, 2019 BRITTANEY VILLEDA FERROUS SO4 324MG TAB,EC Discontinued TAKE ONE TABLET BY MOUTH TWO TIMES A DAY FOR IRON SUPPLEMENTATION. MAY TAKE WITH FOOD IF NOT TOLERATED ON EMPTY STOMACH 200 May 02, 2019 [id number] Nov 14, 2018 BRITTANEY VILLEDA C FOLIC ACID 1MG TAB Active TAKE ONE TABLET BY MOUTH ONCE A DAY 90 Nov 22, 2019 [id number] Mar 18, 2019 BRITTANEY VILLEDA FOLIC ACID 1MG TAB Discontinued TAKE ONE TABLET BY MOUTH ONCE A DAY 90 May 02, 2019 [id number] Sep 26, 2018 BRITTANEY VILLEDA [facility] GABAPENTIN 300MG CAP Discontinued TAKE 2 CAPSULES BY MOUTH FOUR TITO ES A DAY 720 Jan 27, 2019 [id number] Nov 14, 2018 BRITTANEY VILLEDA GABAPENTIN 400MG CAP Active TAKE 1 CAPSULE BY MOUTH THREE TITO ES A DAY 270 Dec 07, 2019 [id number] Mar 18, 2019 BRITTANEY VILLEDA HYDROCODONE 10MG/ACETAMINOPHEN 325MG TAB Non-VA TAKE ONE TABLET BY MOUTH FOUR TIMES A DAY Non-VA Documented by: RAMY TRENT nted at: STEFANI BRANCHOC LISINOPRIL 10MG TAB Discontinued TAKE ONE-HALF TABLET BY MOUTH EVERY MORNING FOR HEART OR HIGH BLOOD PRESSURE 15 Jun 01, 2019 [id number] Jun 02, 2018 BRITTAENY VILLEDA [facility] LOSARTAN 25MG TAB Active TAKE ONE TABLET BY MOUTH ONCE A DAY FOR BLOOD PRESSURE 90 Jan 09, 2020 [id number] Apr 23, 2019 BRITTANEY VILLEDA CBO C LOSARTAN 25MG TAB Discontinued TAKE ONE TABLET BY M OUTH ONCE A DAY FOR BLOOD PRESSURE 90 July 13, 2019 [id number] Nov 14, 2018 TIERRA KWONG [facility] MELOXICAM 15MG TAB TAKE ONE TABLET BY M OUTH ONCE A DAY FOR PAIN OR INFLAMMATION. 90 Jun 01, 2019 [id number] Mar 18, 2019 BRITTANEY VILLEDA METOPROLOL TARTRATE 25MG TAB Active TAKE ONE-SMITH LF TABLET BY MOUTH TWO TIMES A DAY FOR HEART/BLOOD PRESSURE. TAKE WITH OR IMMEDIATELY FOLLOWING FOOD. 90 Jan 09, 2020 [id number] Apr 23, 2019 BRITTANEY VILLEDA [facility] METOPROLOL TARTRATE 25MG TAB Discontinued TAKE ONE-SMITH LF TABLET BY MOUTH TWO TIMES A DAY FOR HEART/BLOOD PRESSURE. TAKE WITH OR IMMEDIATELY FOLLOWING FOOD. 90 July 13, 2019 [id number] Nov 14, 2018 TIERRA KWONG [facility] SIMVASTATIN 40MG TAB Active TAKE ONE-HALF TABLE T BY MOUTH AT BEDTIME FOR CHOLESTEROL - REPORT ANY UNEXPLAINED MUSCLE PAIN OR WEAKNESS TO YOUR PROVIDER 45 Sep 27, 2019 [id number] Jun 24, 2019 BRITTANEY VILLEDA CBO C SIMVASTATIN 40MG TAB Discontinued TAKE ONE-HALF TABLE T BY MOUTH AT BEDTIME FOR CHOLESTEROL - REPORT ANY UNEXPLAINED MUSCLE PAIN OR WEAKNESS TO YOUR PROVIDER 45 Sep 23, 2018 [id number] Jul 05, 2018 BRITTANEY VILLEDA [facility]BO C TAMSULOSIN HCL 0.4MG CAP Discontinued TAKE ONE CAPSUL E BY MOUTH ONCE A DAY FOR PROSTATE. TAKE AT THE SAME TIME EACH DAY WITH FOOD. 90 Jun 17 9 [id number] Jun 14, 2018 BRITTANEY VILLEDA TAMSULOSIN HCL 0.4MG CAP TAKE ONE CAPSUL E BY MOUTH ONCE A DAY FOR PROSTATE. TAKE AT THE SAME TIME EACH DAY WITH FOOD. 90 August 01 0 [id number] Jun 24, 2019 BRITTANEY VILLEDA TIOTROPIUM 2.5MCG/ACTUAT INHL,ORAL,60D,4GM Active INHALE 2 PUFFS BY ORAL INHALATION ONCE A DAY FOR BREATHING. DON'T USE WITH IPRATROPIUM - REPLACES ADVAIR. 3 Jun 24, 2020 [id number] Jun 24, 2019 BRITTANEY VILLEDA [facility] TIOTROPIUM 2.5MCG/ACTUAT INHL,ORAL,60D,4GM Discontinued INHALE 2 PUFFS BY ORAL INHALATION ONCE A DAY FOR BREATHING. DON'T USE WITH IPRATROPIUM - REPLACES ADVAIR. 3 Oct 13, 2019 [id number] Mar 18, 2019 BRITTANEY VILLEDA [facility] Problems (Conditions): All historical and current Section Date Range: From patient's date of to the date document was create d. This section includes a list of Problems (Conditions) know n to [place] for the patient. It includes both active and inacti ve problems (conditions). The data comes from all [place] treatment facilities. Problem Status Problem Code Date of Onset Date of Resolution Comm ent(s) Provider Source Actinic keratosis (SNOMED CT 761098684) Active 702.0 BRITTANEY VILLEDA [facility] Alcohol Dependence * (ICD-9-CM 303.90/303.91) Active 303.90 ALEXANDRA KWONG [facility] Anemia Active 285.9 [facility] ANGINA PECTORIS NEC/NOS 413.9 Active 413.9 W ALEXANDRA DE JESUS [facility] Anxiety Disorder Active 300.00 AURELIANO LINCOLN MD [facility] Benign Neoplasm Skin Head, Neck, Scalp Active 216.4 RENALDO DACOSTA [facility] CABG Active 799.9 Oct 05, 2006 E ntered By: SATHISH SCOTT Comment: feb, 4-vessel SATHISH SCOTT [facility] Chest discomfort (SNOMED CT 880455041) Active 786.59 BRITTANEY VILLEDA [facility] Chronic airway obstruction, Not Elsewhere Classified Active 496. AURELIANO [facility] Chronic Low Back Pain Active 724.2 AURELIANO LINCOLN MD [facility] COPD * (ICD-9-CM 496.) Active 496. Robin SCOTT [facility] Coronary Artery Disease * (ICD-9-CM 414.9) Active 414.9 ALEXANDRA KWONG [facility] Coronary Atherosclerosis of [place] Coronary Vessel Active 414.01 August 03, 2010 Entered By: AURELIANO LINCOLN MD Comment: Bypass surgery AURELIANO LINCOLN MD [facility] Disorder of shoulder (SNOMED CT 021519053) Active 719.91 [facility] Essential Hypertension Active 401.9 AURELIANO LINCOLN [facility] Hyperlipidemia Active 272.4 SATHISH SCOTT [facility] HYPERTENSION NOS 401.9 Active 401.9 [facility] Impotence (SNOMED CT 202863064) Active 302.72 [facility] 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 AURELIANO LIU [facility] Marijuana Dependence unspecified Active 304.30 AURELIANO LINCOLN MD [facility] Microscopic Hematuria (ICD-9-CM 599.72) Active 599.72 [facility] Other and unspecified hyperlipidemia Active 272.4 AURELIANO LINCOLN MD [facility] Other, mixed, or unspecified drug abuse, continuous use Active 30 5.91 Jan 30, 2009 Entered By: SATHISH SCOTT Comment: urine drug screen positive for opitates and marijuannaMay 2009 Entered By: SATHISH SCOTT Comment: buying hydrocodone "off the street" [facility] Pain in joint involving ankle and foot (ICD-9-CM 719.47) Active 719 .47 SATHISH SCOTT Can [facility] Papular eruption (SNOMED CT 210806523) Active 709.8 [facility] Personal History of Noncompliance with M edical Treatment, Presenting Hazards to Active V15.81 SATHISH SCOTT [facility] Tobacco dependence syndrome (SNOMED CT 61648207) Active [id number] July 24, 2009 Entered By: SATHISH SCOTT Comment: one ppd [facility]I [facility] Transient Ischemic Attack * (ICD-9-CM 435.9) Active 435.9 SATHISH SCOTT [facility] ANIETY STAT NOS 300.00 Inactive 300.00 Jan 05, 2005 [facility]DRA [facility] Bronchitis * (ICD-9-CM 490.) Inactive 490. Jan 05, 2005 [facility]ED[facility] Postsurgical Aortocoronary Bypass Status (ICD-9-CM V45.81) Inactive V45.81 Oct 05, 2006 SATHISH SCOTT [facility] Radiology Reports: +/- 30 days of the encounter No Data Provided for This Section Pathology Reports: +/- 30 days of the encounter No Data Provided for This Section Encounter Notes: All associated encounter notes This section contains the clinical notes associated to the Encounter. Date/Time Encounter Note(s) Provider Source Oct 03, 2018 03:43 PM ADMINISTRATIVE NOTE: LOCAL TITLE: WI-ADMINISTRATIVE NOTE (BP,O) STANDARD TITLE: ADMINISTRATIVE NOTE DATE OF NOTE: OCT 03, 2018@15:43 ENTRY DATE: OCT 03, 2018@15:43:33 AUTHOR: BRITTANEY VILLEDA EXP COSIGNER: URGENCY: STATUS: COMPLETED reviewed recent lab- hgb sl. low at 12.3, stable, rtc sl. low at 3.76, stable, no change since 2018, cont. with folic acid and ferrous sulfate as directed, rtc 3 months for cbc with diff., please call and inform pt., thank you /nuno/ BRITTANEY VILLEDA [employer]FRASTRUCTURE TECH-BC Signed: 10/03/2018 15:45 Receipt Acknowledged By: 10/04/2018 10:01 /nuno/ BRITTANEY MILIAN ACE, LPN [facility]
--- OUTSIDE RECORDS SUMMARY | 2019-08-16 04:00 | XMS REPORT | Encounter Summary ---
Author Author [facility] JUAN MANUEL posey Organization Department of [facility] Address [address] [place] [phone] Phone Unavailable Care Team Providers Care Dehydrator Tender Name Role Phone BRITTANEY VILLEDA PCP Unavailable [...] PART B Apr 13, 2007 PART B [id number] [phone] MARTIN,JUAN MANUEL PATIENT MEDICARE (WNR) MEDICARE (M) PART B Apr 13, 2007 PART B [id number] JUAN MANUEL MARTIN PATIENT MEDICARE (WNR) MEDICARE (M) PART A Sep 10, 2005 PART A [id number] [phone] VERONICAJUAN MANUEL PATIENT MEDICARE (WNR) MEDICARE (M) PART A Sep 10, 2005 PART A [id number] [phone] JUAN MANUEL MARTIN PATIENT MEDICARE (WNR) MEDICARE (M) PART A Sep 10, 2005 PART A [id number] [phone] JUAN MANUEL MARTIN PATIENT Selected Encounter This section includes the information on record at PA for the Encounter. Date/Time Encounter Type Encounter Description Reason Provider Source Aug 28, 2018 03:17 PM Outpatient Encounter COMMUNITY CARE CONSULT [facility] IHE Encounter Template Text not used by VA Assessments - Encounter Diagnoses No Data Provided for This Section Plan of Treatment: Future Appointments (+ 6 months) and Future Tests (+/- 45 day s) The Plan of Treatment section includes future care activities for the patient fr om all PA treatment facilities. This section includes future appointments and fu ture orders which are active, pending or scheduled. Future Appointments This section includes appointments that were scheduled t o occur 6 months from the date of the Encounter, up to a maximum of 20 appointme nts. The data comes from all PA treatment facilities. Appointment Date/Time Appointment Type Appointment Facili ty Name Nov 02, 2018 09:00 AM AMBULATORY - MEDICINE [facility] Jan 02, 2019 08:30 AM AMBULATORY - NONE [facility] Jan 08, 2019 09:00 AM [facility]ORY [facility] MEDICINE [facility] Jan 23, 2019 09:15 AM AMBULATORY - NONE [facility] Surgical Procedures: All associated to the encounter No Data Provided for This Section Lab Results: +/- 30 days of the encounter This section includes the Chemistry and Hematology Lab R esults on record with PA for the patient. Radiology Reports and Pathology Report s are provided separately, in subsequent sections. Lab Results This section contains the Chemistry/Hematology Results kenyatta t were resulted 30 days before or 30 days after the date of the Encounter. Date/Time Source Result Type Result - Unit Interpretation Reference Range Comment Aug 15, 2018 08:45 AM KO [facility] CBC & DIFF Specimen Type: BLOOD No [...] docume nt. The data comes from all PA facilities. Date Advance Directives Provider Source Jan 02, 2018 ADVANCE DIRECTIVE DISCUSSION FLO KRUEGER [facility] Oct 17, 2000 ADVANCE DIRECTIVE EUNICE RODRIGUEZ [facility] Allergies and Adverse Reactions (ADRs): All historical and current Section Date Range: From patient's date of to the date document was create d. This section includes Allergies and Adverse Reactions (ADR s) on record with VA for the patient. The data comes from a ll PA treatment facilities. It does not list Allergies/ADRs that were removed or entered in error. Some allergies/ADRs may be reported in t he Immunization section. Allergen Event Date Event Type Reaction(s) Severity Source No Known Allergies [facility] No Allergy Assessment on File [facility] Medications: VA dispensed (-15 months) and Non-VA Documented (Obtained Outside A) Section Date Range: 1) prescriptions processed by a PA pharmacy in the last 15 m ont, and 2) all medications recorded in the PA medical record as "non-VA medic ations". Pharmacy terms refer to VA pharmacy's work on prescriptions. VA patient s are advised to take their medications as instructed by their health care team. The data comes from all PA treatment facilities. Glossary of Pharmacy Terms:Active = A prescription that can be filled at the local VA pharmacy.Active: On Hold = An active prescription that will not be filled until pharmacy resolves the issue.Active: Susp = An active prescription that is not scheduled to be filled yet.Clinic Order = A medication received during a visit to a PA clinic or emergency department (currently not available).Discontinued [...] may be a prescription from either the PA or other providers that was filled outside the PA. Or, it may be an over the [...] A DAY NEEDED 180 Jan 09, 2020 [id number] Apr 10, 2019 MAK VILLEDA [facility] ALBUTEROL SO4 0.083% INHL,3ML Discontinued USE 3 MLS IN NEBULIZER FOR INHALATION TWO TIMES A DAY NEEDED 180 Jan 27, 2019 [id number] Nov 01, 2018 BRITTANEY VENEGAS [facility] ALBUTEROL SO4 90MCG/ACTUAT (CFC-F) INHL,ORAL,6.7GM Active INHALE 2 PUFFS BY ORAL INHALATION TWO TIMES A DAY NEEDED - RINSE MOUTHPIECE FREQUENTLY TO PREVENT CLOGGING 2 Aug 30, 2019 [id number] Mar 18, 2019 BRITTANEY VILLEDA [facility] ALBUTEROL SO4 90MCG/ACTUAT (CFC-F) INHL,ORAL,6.7GM Discontin ued INHALE 2 PUFFS BY ORAL INHALATION TWO TIMES A DAY NEEDED - RINSE MOUTHPIECE FREQUENTLY TO PREVENT CLOGGING 2 Mar 27, 2019 [id number] Aug 30, 2018 BRITTANEY VILLEDA BUDESONIDE 80MCG/FORMOTEROL FUM 4.5MCG/SPRAY INHL,ORAL,10.2G M Active INHALE 2 PUFFS BY ORAL INHALATION TWO TIMES A DAY FOR BREATHING. SHAKE WELL. RINSE MOUTH AND SPIT AFTER EACH USE. 3 Jun 24, 2020 [id number] Jun 24, 2019 BRITTANEY VILLEDA BUDESONIDE 80MCG/FORMOTEROL FUM 4.5MCG/SPRAY INHL,ORAL,10.2G M Discontinued INHALE 2 PUFFS BY ORAL INHALATION TWO TIMES A DAY FOR BREATHING. SHAKE WELL. RINSE MOUTH AND SPIT AFTER EACH USE. 3 Dec 07, 2019 [id number] Mar 18, 2019 BRITTANEY VILLEDA FERROUS SO4 324MG TAB,EC Active TAKE ONE TABLET BY MOUTH TWO TIMES A DAY FOR IRON SUPPLEMENTATION. MAY TAKE WITH FOOD IF NOT TOLERATED ON EMPTY STOMACH 200 Jan 09, 2020 [id number] Apr 23, 2019 BRITTANEY VILLEDA FERROUS SO4 324MG TAB,EC Discontinued TAKE ONE TABLET BY MOUTH TWO TIMES A DAY FOR IRON SUPPLEMENTATION. MAY TAKE WITH FOOD IF NOT TOLERATED ON EMPTY STOMACH 200 May 02, 2019 [id number] Nov 14, 2018 BRITTANEY VILLEDA C FOLIC ACID 1MG TAB Active TAKE ONE TABLET BY MOUTH ONCE A DAY 90 Nov 22, 2019 [id number] Mar 18, 2019 BRITTANEY VILLEDA FOLIC ACID 1MG TAB Discontinued TAKE ONE TABLET BY MOUTH ONCE A DAY 90 May 02, 2019 [id number] Sep 26, 2018 BRITTANEY VILLEDA GABAPENTIN 300MG CAP Discontinued TAKE 2 CAPSULES BY MOUTH FOUR TITO ES A DAY 720 Jan 27, 2019 [id number] Nov 14, 2018 BRITTANEY VILLEDA GABAPENTIN 400MG CAP Active TAKE 1 CAPSULE BY MOUTH THREE TITO ES A DAY 270 Dec 07, 2019 [id number] Mar 18, 2019 BRITTANEY VILLEDA HYDROCODONE 10MG/ACETAMINOPHEN 325MG TAB Non-VA TAKE ONE TABLET BY MOUTH FOUR TIMES A DAY Non-VA Documented by: RAMY TRENTume nted at: [facility] LISINOPRIL 10MG TAB Discontinued TAKE ONE-HALF TABLET BY MOUTH EVERY MORNING FOR HEART OR HIGH BLOOD PRESSURE 15 Jun 01, 2019 [id number] Jun 02, 2018 BRITTANEY VILLEDA [facility] LOSARTAN 25MG TAB Active TAKE ONE TABLET BY MOUTH ONCE A DAY FOR BLOOD PRESSURE 90 Jan 09, 2020 [id number] Apr 23, 2019 BRITTANEY VILLEDA CBO C LOSARTAN 25MG TAB Discontinued TAKE ONE TABLET BY M OUTH ONCE A DAY FOR BLOOD PRESSURE 90 July 13, 2019 [id number] Nov 14, 2018 TIERRA KWONG [facility] MELOXICAM 15MG TAB TAKE ONE TABLET BY M OUTH ONCE A DAY FOR PAIN OR INFLAMMATION. 90 Jun 01, 2019 [id number] Mar 18, 2019 BRITTANEY VILLEDA METOPROLOL TARTRATE 25MG TAB Active TAKE ONE-SMITH LF TABLET BY MOUTH TWO TIMES A DAY FOR HEART/BLOOD PRESSURE. TAKE WITH OR IMMEDIATELY FOLLOWING FOOD. 90 Jan 09, 2020 [id number] Apr 23, 2019 BRITTANEY VILLEDA METOPROLOL TARTRATE 25MG TAB Discontinued TAKE ONE-SMITH LF TABLET BY MOUTH TWO TIMES A DAY FOR HEART/BLOOD PRESSURE. TAKE WITH OR IMMEDIATELY FOLLOWING FOOD. 90 July 13, 2019 [id number] Nov 14, 2018 TIERRA KWONG [facility] SIMVASTATIN 40MG TAB Active TAKE ONE-HALF TABLE T BY MOUTH AT BEDTIME FOR CHOLESTEROL - REPORT ANY UNEXPLAINED MUSCLE PAIN OR WEAKNESS TO YOUR PROVIDER 45 Sep 27, 2019 [id number] Jun 24, 2019 BRITTANEY VILLEDA C SIMVASTATIN 40MG TAB Discontinued TAKE ONE-HALF TABLE T BY MOUTH AT BEDTIME FOR CHOLESTEROL - REPORT ANY UNEXPLAINED MUSCLE PAIN OR WEAKNESS TO YOUR PROVIDER 45 Sep 23, 2018 [id number] Jul 05, 2018 BRITTANEY VILLEDA CBO C TAMSULOSIN HCL 0.4MG CAP Discontinued TAKE ONE CAPSUL E BY MOUTH ONCE A DAY FOR PROSTATE. TAKE AT THE SAME TIME EACH DAY WITH FOOD. 90 Jun 17 9 [id number] Jun 14, 2018 BRITTANEY VILLEDA TAMSULOSIN HCL 0.4MG CAP TAKE ONE CAPSUL E BY MOUTH ONCE A DAY FOR PROSTATE. TAKE AT THE SAME TIME EACH DAY WITH FOOD. 90 August 01 0 [id number] Jun 24, 2019 BRITTANEY VILLEDAONS [facility] TIOTROPIUM 2.5MCG/ACTUAT INHL,ORAL,60D,4GM Active INHALE 2 PUFFS BY ORAL INHALATION ONCE A DAY FOR BREATHING. DON'T USE WITH IPRATROPIUM - REPLACES ADVAIR. 3 Jun 24, 2020 [id number] Jun 24, 2019 BRITTANEY VILLEDA [facility] TIOTROPIUM 2.5MCG/ACTUAT INHL,ORAL,60D,4GM Discontinued INHALE 2 PUFFS BY ORAL INHALATION ONCE A DAY FOR BREATHING. DON'T USE WITH IPRATROPIUM - REPLACES ADVAIR. 3 Oct 13, 2019 [id number] Mar 18, 2019 BRITTANEY VILLEDA [facility] Problems (Conditions): All historical and current Section Date Range: From patient's date of to the date document was create d. This section includes a list of Problems (Conditions) know n to VA for the patient. It includes both active and inacti ve problems (conditions). The data comes from all PA treatment facilities. Problem Status Problem Code Date of Onset Date of Resolution Comm ent(s) Provider Source Actinic keratosis (SNOMED CT 076696958) Active 702.0 BRITTANEY VILLEDA [facility] Alcohol Dependence * (ICD-9-CM 303.90/303.91) Active 303.90 ALEXANDRA KWONG [facility] Anemia Active 285.9 SATHISH SCOTT [facility] ANGINA PECTORIS NEC/NOS 413.9 Active 413.9 W ALEXANDRA DE JESUS [facility] Anxiety Disorder Active 300.00 AURELIANO LINCOLN MD [facility] Benign Neoplasm Skin Head, Neck, Scalp Active 216.4 CRISTINAOSCRENALDO [facility] CABG Active 799.9 Oct 05, 2006 E ntered By: SATHISH SCOTT Comment: feb, 4-vessel SATHISH SCOTT [facility] Chest discomfort (SNOMED CT 121542655) Active 786.59 BRITTANEY VILLEDA [facility] Chronic airway obstruction, Not Elsewhere Classified Active 496. AURELIANO LINCOLN MD [facility] Chronic Low Back Pain Active 724.2 AURELIANO LINCOLN MD [facility] COPD * (ICD-9-CM 496.) Active 496. [facility] Coronary Artery Disease * (ICD-9-CM 414.9) Active 414.9 [facility] Coronary Atherosclerosis of [place] Coronary Vessel Active 414.01 August 03, 2010 Entered By: AURELIANO LINCOLN MD Comment: Bypass surgery AURELIANO LINCOLN MD [facility] Disorder of shoulder (SNOMED CT 236775707) Active 719.91 [facility] Essential Hypertension Active 401.9 AURELIANO LINCOLN MD [facility] Hyperlipidemia Active 272.4 [facility] HYPERTENSION NOS 401.9 Active 401.9 ALEX[facility]DRA KWONG [facility] Impotence (SNOMED CT 355094665) Active 302.72 [facility] 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 AURELIANO LIU MD [facility] Marijuana Dependence unspecified Active 304.30 AURELIANO LINCOLN MD [facility] Microscopic Hematuria (ICD-9-CM 599.72) Active 599.72 [facility] Other and unspecified hyperlipidemia Active 272.4 AURELIANO LINCOLN MD [facility] Other, mixed, or unspecified drug abuse, continuous use Active 30 5.91 Jan 30, 2009 Entered By: SATHISH SCOTT Comment: urine drug screen positive for opitates and marijuannaMay 2009 Entered By: SATHISH SCOTT Comment: buying hydrocodone "off the street" SATHISH SCOTT [facility] Pain in joint involving ankle and foot (ICD-9-CM 719.47) Active 719 .47 SATHISH SCOTT [facility] Papular eruption (SNOMED CT 312966647) Active 709.8 [facility] Personal History of Noncompliance with M edical Treatment, Presenting Hazards to Active V15.81 SATHISH SCOTT [facility] Tobacco dependence syndrome (SNOMED CT 21407900) Active [id number] July 24, 2009 Entered By: SATHISH SCOTT Comment: one ramona [facility]UMI AVILA [facility]I [facility] Transient Ischemic Attack * (ICD-9-CM 435.9) Active 435.9 [facility] ANIETY STAT NOS 300.00 Inactive 300.00 Jan 05, 2005 ALEXANDRA FLOREZ [facility] Bronchitis * (ICD-9-CM 490.) Inactive 490. Jan 05, 2005 BRITTANEY VILLEDA [facility] Postsurgical Aortocoronary Bypass Status (ICD-9-CM V45.81) Inactive V45.81 Oct 05, 2006 SATHISH SCOTT [facility] Radiology Reports: +/- 30 days of [...] of the Encounter. The data comes from [facility] treatment facilities. Date/Time Radiology Report Provider Source August 07, 2018 02:11 PM MRI CERVICAL SPINE W/O: JUAN MANUEL MARTIN [id number] -[id number] M Ex Date: AUGUST 07, 2018@14:11 Req Phys: BRITTANEY VILLEDA Pat Loc: [place]-ADMIN MRI-X (Req'g Loc) Img Loc: OUTSIDE [place]-MRI Service: Unknown (Case [id number] COMPLETE) MRI CERVICAL SPINE W/O (MRI Detailed) CPT:85038 Contrast Media : unspecified contrast media Reason for Study: Outside images/exam. Clinical History: Outside images/exam. Report Status: Electronically Filed Date Reported: Report: Impression: Scanned Document/Radiology Procedure: This verification is for administrative purposes only. This exam was not performed or interpreted by a PA Physician. MRI report dated 05/28/19 is located in Imaging Display in [employer]. (Go to tools, click imaging display, click on date of report, click on report.) MRI images are available in [employer] [facility] Display and [employer]. VERIFIED BY: / *ELECTRONICALLY FILED* [facility] Pathology Reports: +/- 30 days of the encounter No Data Provided for This Section Encounter Notes: All associated encounter notes This section contains the clinical notes associated to the Encounter. Date/Time Encounter Note(s) Provider Source Aug 28, 2018 03:17 PM NONVA CONSULT: LOCAL TITLE: COMMUNITY CARE CONSULT RESULTS NOTE WI STANDARD TITLE: NONVA CONSULT DATE OF NOTE: AUG 28, 2018@15:17 ENTRY DATE: AUG 28, 2018@15:18:01 AUTHOR: ROCKY MONDRAGON EXP COSIGNER: URGENCY: STATUS: COMPLETED The following Non VA Care consult has been completed. See scanned document for report. NON VA Care Consult Results Radiology Comment: COMMUNITY CARE-MRI/[facility] MIGUEL AIN/07-02-2018 /nuno/ ROCKY MONDRAGON MSA Signed: 08/28/2018 15:18 ROCKY MONDRAGON [facility]
--- OUTSIDE RECORDS SUMMARY | 2019-08-16 04:00 | XMS REPORT | Encounter Summary ---
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 Railroad Name Role Phone BRITTANEY VILLEDA PCP Unavailable [...] PART B Apr 13, 2007 PART B [id number] [phone] MARTIN,GARY PATIENT MEDICARE (WNR) MEDICARE (M) PART B Apr 13, 2007 PART B [id number] JUAN MANUEL MARTIN PATIENT MEDICARE (WNR) MEDICARE (M) PART A Sep 10, 2005 PART A [id number] [phone] MARTIN,JUAN MANUEL PATIENT MEDICARE (WNR) MEDICARE (M) PART A Sep 10, 2005 PART A [id number] MARTINJUAN MANUEL PATIENT MEDICARE (WNR) MEDICARE (M) PART A Sep 10, 2005 PART A [id number] JUAN MANUEL MARTIN PATIENT Selected Encounter This section includes the information on record at [place] for the Encounter. Date/Time Encounter Type Encounter Description Reason Provider Source Sep 07, 2018 04:23 PM Outpatient Encounter COMMUNITY CARE CONSULT [facility] 15 IHE Encounter Template Text not used by VA Assessments - Encounter Diagnoses No Data Provided for This Section Plan of Treatment: Future Appointments (+ 6 months) and Future Tests (+/- 45 day s) The Plan of Treatment section includes future care activities for the patient fr om all [place] treatment facilities. This section includes future appointments and fu ture orders which are active, pending or scheduled. Future Appointments This section includes appointments that were scheduled t o occur 6 months from the date of the Encounter, up to a maximum of 20 appointme nts. The data comes from all [place] treatment facilities. Appointment Date/Time Appointment Type Appointment Facili ty Name Nov 02, 2018 09:00 AM AMBULATORY - MEDICINE [facility] Jan 02, 2019 08:30 AM AMBULATORY - NONE [facility] Jan 08, 2019 09:00 AM AMBULATORY - MEDICINE [facility] Jan 23, 2019 09:15 AM AMBULATORY - NONE KO [facility] Surgical Procedures: All associated to the encounter No Data Provided for This Section Lab Results: +/- 30 days of the encounter This section includes the Chemistry and Hematology Lab R esults on record with [place] for the patient. Radiology Reports and Pathology Report s are provided separately, in subsequent sections. Lab Results This section contains the Chemistry/Hematology Results kenyatta t were resulted 30 days before or 30 days after the date of the Encounter. Date/Time Source Result Type Result - Unit Interpretation Reference Range Comment Aug 15, 2018 08:45 AM [facility] CBC & DIFF Specimen Type: BLOOD [...] docume nt. The data comes from all [place] facilities. Date Advance Directives Provider Source Jan 02, 2018 ADVANCE DIRECTIVE DISCUSSION FLO KRUEGER [facility] Oct 17, 2000 ADVANCE DIRECTIVE EUNICE RODRIGUEZ [facility], [facility] 15 Allergies and Adverse Reactions (ADRs): All historical and current Section Date Range: From patient's date of to the date document was create d. This section includes Allergies and Adverse Reactions (ADR s) on record with VA for the patient. The data comes from a ll [place] treatment facilities. It does not list Allergies/ADRs that were removed or entered in error. Some allergies/ADRs may be reported in t he Immunization section. Allergen Event Date Event Type Reaction(s) Severity Source No Known Allergies [facility] No Allergy Assessment on File [facility] Medications: VA dispensed (-15 months) and Non-VA Documented (Obtained Outside V A) Section Date Range: 1) prescriptions processed by a [place] pharmacy in the last 15 m ont, and 2) all medications recorded in the [place] medical record as "non-VA medic ations". Pharmacy terms refer to VA pharmacy's work on prescriptions. VA patient s are advised to take their medications as instructed by their health care team. The data comes from all [place] treatment facilities. Glossary of Pharmacy Terms:Active = A prescription that can be filled at the local VA pharmacy.Active: On Hold = An active prescription that will not be filled until pharmacy resolves the issue.Active: Susp = An active prescription that is not scheduled to be filled yet.Clinic Order = A medication received during a visit to a [place] clinic or emergency department (currently not available).Discontinued [...] may be a prescription from either the [place] or other providers that was filled outside the [place]. Or, it may be an over the [...] A DAY NEEDED 180 Jan 09, 2020 [id number] Apr 10, 2019 MAK VILLEDA CBTERRENCE ALBUTEROL SO4 0.083% INHL,3ML Discontinued USE 3 MLS IN NEBULIZER FOR INHALATION TWO TIMES A DAY NEEDED 180 Jan 27, 2019 [id number] Nov 01, 2018 BRITTANEY VENEGAS ALBUTEROL SO4 90MCG/ACTUAT (CFC-F) INHL,ORAL,6.7GM Active INHALE 2 PUFFS BY ORAL INHALATION TWO TIMES A DAY NEEDED - RINSE MOUTHPIECE FREQUENTLY TO PREVENT CLOGGING 2 Aug 30, 2019 [id number] Mar 18, 2019 BRITTANEY VILLEDA [facility] ALBUTEROL SO4 90MCG/ACTUAT (CFC-F) INHL,ORAL,6.7GM Discontin ued INHALE 2 PUFFS BY ORAL INHALATION TWO TIMES A DAY NEEDED - RINSE MOUTHPIECE FREQUENTLY TO PREVENT CLOGGING 2 Mar 27, 2019 [id number] Aug 30, 2018 BRITTANEY VILLEDA BUDESONIDE 80MCG/FORMOTEROL FUM 4.5MCG/SPRAY INHL,ORAL,10.2G M Active INHALE 2 PUFFS BY ORAL INHALATION TWO TIMES A DAY FOR BREATHING. SHAKE WELL. RINSE MOUTH AND SPIT AFTER EACH USE. 3 Jun 24, 2020 [id number] Jun 24, 2019 BRITTANEY VILLEDA BUDESONIDE 80MCG/FORMOTEROL FUM 4.5MCG/SPRAY INHL,ORAL,10.2G M Discontinued INHALE 2 PUFFS BY ORAL INHALATION TWO TIMES A DAY FOR BREATHING. SHAKE WELL. RINSE MOUTH AND SPIT AFTER EACH USE. 3 Dec 07, 2019 [id number] Mar 18, 2019 BRITTANEY VILLEDA FERROUS SO4 324MG TAB,EC Active TAKE ONE TABLET BY MOUTH TWO TIMES A DAY FOR IRON SUPPLEMENTATION. MAY TAKE WITH FOOD IF NOT TOLERATED ON EMPTY STOMACH 200 Jan 09, 2020 [id number] Apr 23, 2019 BRITTANEY VILLEDA FERROUS SO4 324MG TAB,EC Discontinued TAKE ONE TABLET BY MOUTH TWO TIMES A DAY FOR IRON SUPPLEMENTATION. MAY TAKE WITH FOOD IF NOT TOLERATED ON EMPTY STOMACH 200 May 02, 2019 [id number] Nov 14, 2018 BRITTANEY VILLEDA C FOLIC ACID 1MG TAB Active TAKE ONE TABLET BY MOUTH ONCE A DAY 90 Nov 22, 2019 [id number] Mar 18, 2019 BRITTANEY VILLEDA FOLIC ACID 1MG TAB Discontinued TAKE ONE TABLET BY MOUTH ONCE A DAY 90 May 02, 2019 [id number] Sep 26, 2018 BRITTANEY VILLEDA GABAPENTIN 300MG CAP Discontinued TAKE 2 CAPSULES BY MOUTH FOUR TITO ES A DAY 720 Jan 27, 2019 [id number] Nov 14, 2018 BRITTANEY VILLEDA GABAPENTIN 400MG CAP Active TAKE 1 CAPSULE BY MOUTH THREE TITO ES A DAY 270 Dec 07, 2019 [id number] Mar 18, 2019 BRITTANEY VILLEDA HYDROCODONE 10MG/ACETAMINOPHEN 325MG TAB Non-VA TAKE ONE TABLET BY MOUTH FOUR TIMES A DAY Non-VA Documented by: RAMY TRENT nted at: STEFANI SPAIN LISINOPRIL 10MG TAB Discontinued TAKE ONE-HALF TABLET BY MOUTH EVERY MORNING FOR HEART OR HIGH BLOOD PRESSURE 15 Jun 01, 2019 [id number] Jun 02, 2018 BRITTANEY VILLEDA LOSARTAN 25MG TAB Active TAKE ONE TABLET BY MOUTH ONCE A DAY FOR BLOOD PRESSURE 90 Jan 09, 2020 [id number] Apr 23, 2019 BRITTANEY VILLEDA CBO C LOSARTAN 25MG TAB Discontinued TAKE ONE TABLET BY M OUTH ONCE A DAY FOR BLOOD PRESSURE 90 July 13, 2019 [id number] Nov 14, 2018 TIERRA KWONG [facility] MELOXICAM 15MG TAB TAKE ONE TABLET BY M OUTH ONCE A DAY FOR PAIN OR INFLAMMATION. 90 Jun 01, 2019 [id number] Mar 18, 2019 BRITTANEY VILLEDA METOPROLOL TARTRATE 25MG TAB Active TAKE ONE-SMITH LF TABLET BY MOUTH TWO TIMES A DAY FOR HEART/BLOOD PRESSURE. TAKE WITH OR IMMEDIATELY FOLLOWING FOOD. 90 Jan 09, 2020 [id number] Apr 23, 2019 BRITTANEY VILLEDA METOPROLOL TARTRATE 25MG TAB Discontinued TAKE ONE-SMITH LF TABLET BY MOUTH TWO TIMES A DAY FOR HEART/BLOOD PRESSURE. TAKE WITH OR IMMEDIATELY FOLLOWING FOOD. 90 July 13, 2019 [id number] Nov 14, 2018 TIERRA KWONG [facility] SIMVASTATIN 40MG TAB Active TAKE ONE-HALF TABLE T BY MOUTH AT BEDTIME FOR CHOLESTEROL - REPORT ANY UNEXPLAINED MUSCLE PAIN OR WEAKNESS TO YOUR PROVIDER 45 Sep 27, 2019 [id number] Jun 24, 2019 BRITTANEY VILLEDA CBO C SIMVASTATIN 40MG TAB Discontinued TAKE ONE-HALF TABLE T BY MOUTH AT BEDTIME FOR CHOLESTEROL - REPORT ANY UNEXPLAINED MUSCLE PAIN OR WEAKNESS TO YOUR PROVIDER 45 Sep 23, 2018 [id number] Jul 05, 2018 BRITTANEY VILLEDA CBO C TAMSULOSIN HCL 0.4MG CAP Discontinued TAKE ONE CAPSUL E BY MOUTH ONCE A DAY FOR PROSTATE. TAKE AT THE SAME TIME EACH DAY WITH FOOD. 90 Jun 17 9 [id number] Jun 14, 2018 BRITTANEY VILLEDA TAMSULOSIN HCL 0.4MG CAP TAKE ONE CAPSUL E BY MOUTH ONCE A DAY FOR PROSTATE. TAKE AT THE SAME TIME EACH DAY WITH FOOD. 90 August 01 0 [id number] Jun 24, 2019 BRITTANEY VILLEDA [facility] TIOTROPIUM 2.5MCG/ACTUAT INHL,ORAL,60D,4GM Active INHALE 2 PUFFS BY ORAL INHALATION ONCE A DAY FOR BREATHING. DON'T USE WITH IPRATROPIUM - REPLACES ADVAIR. 3 Jun 24, 2020 [id number] Jun 24, 2019 BRITTANEY VILLEDA MARCELLO [facility] TIOTROPIUM 2.5MCG/ACTUAT INHL,ORAL,60D,4GM Discontinued INHALE 2 PUFFS BY ORAL INHALATION ONCE A DAY FOR BREATHING. DON'T USE WITH IPRATROPIUM - REPLACES ADVAIR. 3 Oct 13, 2019 [id number] Mar 18, 2019 BRITTANEY VILLEDA [facility] Problems (Conditions): All historical and current Section Date Range: From patient's date of to the date document was create d. This section includes a list of Problems (Conditions) know n to [facility] for the patient. It includes both active and inacti ve problems (conditions). The data comes from all [place] treatment facilities. Problem Status Problem Code Date of Onset Date of Resolution Comm ent(s) Provider Source Actinic keratosis (SNOMED CT 425389360) Active 702.0 BRITTANEY VILLEDA [facility] Alcohol Dependence * (ICD-9-CM 303.90/303.91) Active 303.90 ALEXANDRA KWONG [facility] Anemia Active 285.9 SATHISH SCOTT [facility] ANGINA PECTORIS NEC/NOS 413.9 Active 413.9 W ALEXANDRA DE JESUS [facility] Anxiety Disorder Active 300.[address] [facility] Benign Neoplasm Skin Head, Neck, Scalp Active 216.4 CRISTINAOSCRENALDO HUNT [facility] CABG Active 799.9 Oct 05, 2006 E ntered By: SATHISH SCOTT Comment: feb, 4-vessel SATHISH SCOTT [facility] Chest discomfort (SNOMED CT 630328914) Active 786.59 BRITTANEY VILLEDA [facility] Chronic airway obstruction, Not Elsewhere Classified Active 496. AURELIANO LINCOLN MD [facility] Chronic Low Back Pain Active 724.[address] [facility] COPD * (ICD-9-CM 496.) Active 496. Robin [facility] Coronary Artery Disease * (ICD-9-CM 414.9) Active 414.9 ALEXANDRA KWONG [facility] Coronary Atherosclerosis of [place] Coronary Vessel Active 414.01 August 03, 2010 Entered By: AURELIANO LINCOLN MD Comment: Bypass surgery AURELIANO LINCOLN MD [facility] Disorder of shoulder (SNOMED CT 556486389) Active 719.91 [facility]ANEY [facility]ILLEDA [facility] Essential Hypertension Active 401.[address] [facility] Hyperlipidemia Active 272.4 [facility]ATHISH SCOTT [facility] HYPERTENSION NOS 401.9 Active 401.9 ALEXANDRA KWONG [facility] Impotence (SNOMED CT 444981535) Active 302.72 [facility] 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 [facility] Marijuana Dependence unspecified Active 304.[address] [facility] Microscopic Hematuria (ICD-9-CM 599.72) Active 599.72 [facility] Other and unspecified hyperlipidemia Active 272.[address] [facility] Other, mixed, or unspecified drug abuse, continuous use Active 30 5.91 Jan 30, 2009 Entered By: SATHISH SCOTT Comment: urine drug screen positive for opitates and marijuannaMay 2009 Entered By: SATHISH SCOTT Comment: buying hydrocodone "off the street" [facility] Pain in joint involving ankle and foot (ICD-9-CM 719.47) Active 719 .47 SATHISH SCOTT [facility] Papular eruption (SNOMED CT 783473172) Active 709.8 BRITTANEY VILLEDA [facility] Personal History of Noncompliance with M edical Treatment, Presenting Hazards to Active V15.81 [facility]ATHISH SCOTT [facility] Tobacco dependence syndrome (SNOMED CT 26428849) Active [id number] July 24, 2009 Entered By: SATHISH SCOTT Comment: one YUMI Gibbons Aleta YUMI Osuna [facility] Transient Ischemic Attack * (ICD-9-CM 435.9) Active 435.9 SATHISH SCOTT [facility] ANIETY STAT NOS 300.00 Inactive 300.00 Jan 05, 2005 MOSHE ALEXANDRA RITTER [facility] Bronchitis * (ICD-9-CM 490.) Inactive 490. Jan 05, 2005 [facility] Postsurgical Aortocoronary Bypass Status (ICD-9-CM V45.81) Inactive V45.81 Oct 05, 2006 SATHISH SCOTT [facility] Radiology Reports: +/- 30 days of the encounter No Data Provided for This Section Pathology Reports: +/- 30 days of the encounter No Data Provided for This Section Encounter Notes: All associated encounter notes This section contains the clinical notes associated to the Encounter. Date/Time Encounter Note(s) Provider Source Sep 07, 2018 04:23 PM NONVA CONSULT: LOCAL TITLE: COMMUNITY CARE CONSULT RESULTS NOTE WI STANDARD TITLE: NONVA CONSULT DATE OF NOTE: SEP 07, 2018@16:23 ENTRY DATE: SEP 07, 2018@16:23:24 AUTHOR: ANDREW QUESADA EXP COSIGNER: URGENCY: STATUS: COMPLETED The following Non VA Care consult has been completed. See scanned document for report. NON VA Care Consult Results Radiology Comment: COMMUNITY CARE - MRI, [facility], 08/07/18 /nuno/ ANDREW QUESADA [facility] Signed: 09/07/2018 16:23 ANDREW QUESADA [facility]
--- OUTSIDE RECORDS SUMMARY | 2019-08-16 04:06 | XMS REPORT ---
Author Author Luis Armando Cody Organization [facility] Address [address] [place], [place] [address] Care Team Providers Care [employer] Sales Consultant Name Role Phone Dong Cody PCP Allergies and Adverse Reactions Name Reaction Notes ibuprofen Plan of Treatment Not available. Medications Active Name Start Date Estimated Completion Date SIG Co mments amlodipine 5 mg oral tablet take 2 tablet s (10 mg) by oral route once daily gabapentin 300 mg oral capsule take 2 cap sules by oral route 4 times a day hydrocodone-acetaminophen 10-325 mg oral tablet take 1 tablet by oral route every 6 hours as needed for pain sildenafil 100 mg oral tablet ta ke 1 tablet (100 mg) by oral route once daily as needed approximately 1 hour before sexual activity simvastatin 40 mg oral tablet ta ke 1 tablet (40 mg) by oral route once daily in the evening tamsulosin 0.4 mg oral capsule t valentino 1 capsule (0.4 mg) by oral route once daily 1/2 hour following the same meal each day Symbicort 160-4.5 mcg/actuation inhalation HFA aerosol inhaler inhale 2 puffs by inhalation route 2 times per day in the morning and evening albuterol sulfate 90 mcg/actuation inhalation HFA aerosol inhale r inhale 1 - 2 puffs (90 - 180 mcg) by inhalation route every 4-6 hours as needed Problem List Description Status Onset Anemia Active Hypertension Active Coronary Artery Disease Active COPD Active Hypercholesteremia Active Vital Signs Date Time BP-Sys(mm[Hg] BP-Eliza(mm[Hg]) HR(bpm) RR(rpm) Temp WT HT HC BMI BSA BMI Percentile O2 Sat(%) 02/11/2019 11:22:00 AM 150 mm[Hg] 70 mm[Hg] 84 {beats}/min 20 rpm 97.9 F 184 lbs 71 in 25.6625 kg/m2 2.0447 m2 97 % 01/28/2019 10:50:00 AM 182 mm[Hg] 90 mm[Hg] 69 {beats}/min 24 rpm 98.1 F 186 lbs 71 in 25.94 kg/m2 2.06 m2 95 % Social History Name Description Comments Tobacco Former smoker History of Procedures Not available. Results Summary Not available. History Of Immunizations Not available. History of Past Illness Name Date of Onset Comments Hypertension Coronary Artery Disease Anemia COPD Hypercholesteremia Colon Cancer Screening Jan 28 2019 11:14AM Slow transit constipation Jan 28 2019 11:14AM Colon, diverticulosis Feb 11 2019 11:23AM Payers Insurance Name Company Name Plan Name Plan Number Policy Number [place] Group Number Start Date Medicare Part B Medicare Of [place] [id number] N/A History of Encounters Visit Date Visit Type Provider 02/11/2019 Office visit Dong Cody MD 02/01/2019 Surgery Dong Cody MD 01/28/2019 Office visit Dong Cody MD
--- OUTSIDE RECORDS SUMMARY | 2019-08-16 04:07 | XMS REPORT ---
Author Author Luis Armando Cody Organization [facility] Address [address] [place], [place] [id number] Care Team Providers Care Director Channel Name Role Phone Dong Cody PCP Allergies [...] Date Medicare Part B Medicare Of [place] [id number] N/A History of Encounters Visit Date Visit Type Provider 02/11/2019 Office visit Dong Cody MD 02/01/2019 Surgery Dong Cody MD 01/28/2019 Office visit Dong Cody MD
--- OUTSIDE RECORDS SUMMARY | 2019-08-16 04:07 | XMS REPORT | Continuity of Care Document ---
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 Ravindra Craft [id number] 11/02/2018 08:50:00 11/02/2018 23:59: 00 DIS Outpatient Ravindra Craft
--- NOTE | 2019-08-16 04:50 | NUR ---
report called, informed admission room dirty. pt updated on anticipated wait time for transfer to icu.
--- NOTE | 2019-08-16 05:48 | Diagnostic Imaging Report ---
EXAMINATION: Portable erect AP chest at 2:58 AM INDICATION: Chest pain The heart size is within normal limits and stable when compared to 12/17/2017. The sternotomy wires and surgical clips noted previously are again evident and no different. There are chronic pulmonary changes evident. These findings seem similar to the prior exam. There is no evidence for failure, pneumonia or for pleural effusion to indicate an acute abnormality. The mediastinum is not widened. The osseous structures are intact. The deformity of the right clavicle seen previously is again evident. IMPRESSION: There is evidence of prior cardiac surgery and chronic pulmonary disease but there is no sign of an acute abnormality. Dictated by: Dictated on workstation # [id number]
[2019-08-16] MEDS ORDERED: NS IV 1000 ML 1,000 ML ONE ×2 (06:12→09:23)
[2019-08-16] MEDS: NS IV 1000 ML 1,000 ML IV SCH ×2 (06:35→09:52)
[2019-08-16] MEDS ORDERED: NITROGLYCERIN 2% OINT 1 GM UNIT DOSE PACKET TOP SCH (06:42)
[2019-08-16] MEDS ORDERED: ONDANSETRON 4 MG/2 ML (SDV) Z0FRAN IV PRN (06:45)
[2019-08-16] MEDS ORDERED: morphine INJ 4 MG/ML 1 ML (VIAL/SYRINGE) IV PRN (06:45)
[2019-08-16] MEDS ORDERED: CATHETER FLUSH 10 ML SYR IV PRN (06:45)
--- NOTE | 2019-08-16 08:47 | History & Physical-Hospitalist ---
History of Present Illness HPI/Chief Complaint Pt is a 68yoCM with a PMH of CAD s/p CABG, and HTN who presented to the ER due to chest pain he states that he was asleep and woke up with chest pain. He at first thought it was form sleeping on his shoulder incorrectly as it was mostly in his left shoulder. He then became clammy, SOB, nauseated, and the pain moved to his back as well. He took three nitro form home without relief so he called EMS. They gave him another nitro which brought his pain from 8/10 to 3/10. He currently has a nitro patch on but states he still has mild chest pain. He is no longer SOB or nauseated though. Source: patient Date Seen 08/16/19 Time Seen by a Provider: 08:43 Attending Physician Leela De La Garza MD PCP No,Local Physician Referring Physician Date of Admission Aug 16, 2019 at 03:31 Home Medications & Allergies Home Medications Reviewed patient Home Medication Reconciliation performed by pharmacy medication reconciliations health information systems technician and/or nursing. Patients Allergies have been reviewed. Allergies Allergies Coded Allergies No Known Drug Allergies (Oylvfnqbwh30/2/18) Past Vcdtxne-Vgcbdj-Btykpu Hx Past Med/Social Hx: Reviewed Nursing Past Med/Soc Hx Patient Social History Alcohol Use: Denies Use Recreational Drug Use: No Drug of Choice: denies Smoking Status: Former Smoker Former Smoker, Quit: Dec 13, 2016 Type Used: Cigarettes 2nd Hand Smoke Exposure: No Recent Foreign Travel: No Contact w/other who traveled: No Recent Hopitalizations: No Recent Infectious Disease Expo: No Immunizations Up To Date Tetanus Booster (TDap): Unknown Date of Pneumonia Vaccine: Aug 15, 2016 Seasonal Allergies Seasonal Allergies: No Past Medical History Surgeries: Abdominal, Cardiac, CABG, Vasectomy Currently Using CPAP: No Currently Using BIPAP: No Cardiac: Coronary Artery Disease, Heart Attack, High Cholesterol, Hypertension Reproductive: No Gastrointestinal: Gastroesophageal Reflux, Esophageal Varices, Irritable Bowel Musculoskeletal: Degenerate Disk Disease, Chronic Back Pain, Fractures Loss of Vision: Denies Hearing Impairment: Denies Psychosocial: Anxiety, Depression History of Blood Disorders: No Family History Reviewed Nursing Family Hx No Pertinent Family Hx Review of Systems Constitutional: No chills; diaphoresis; No fever EENTM: no symptoms reported Respiratory: see HPI, short of breath Cardiovascular: see HPI, chest pain; No edema; Hx of Intervention; No palpitations, No syncope Gastrointestinal: No abdominal pain; nausea; No vomiting Genitourinary: no symptoms reported Musculoskeletal: joint pain (left shoulder pain) Skin: no symptoms reported Psychiatric/Neurological: No Symptoms Reported Physical Exam Physical Exam Vital Signs Vital Signs - First Documented Capillary Refill : Less Than 3 Seconds Height, Weight, BMI Height: 5'11.00" Weight: 176lbs. 1.6oz. [id number]; 24.33 BMI Method: General Appearance: No Apparent Distress, WD/WN HEENT: PERRL/EOMI, Moist Mucous Membranes; No Scleral Icterus (L), No Scleral Icterus (R) Neck: Normal Inspection, Supple Respiratory: Lungs Clear, No Accessory Muscle Use, No Respiratory Distress Cardiovascular: Regular Rate, Rhythm, No Murmur Gastrointestinal: Normal Bowel Sounds, Non Tender, Soft Extremity: Normal Inspection, No Calf Tenderness, No Pedal Edema Neurologic/Psychiatric: Alert, Oriented x3, Normal Mood/Affect Skin: Normal Color, Warm/Dry Results Results/Procedures Labs Laboratory Tests 08/16/19 02:43 Patient resulted labs reviewed. Imaging: Reviewed Imaging Report Imaging Date of Exam:08/16/19 CHEST 1 VIEW, AP/PA ONLY EXAMINATION: Portable erect AP chest at 2:58 AM INDICATION: Chest pain The heart size is within normal limits and stable when compared to 12/17/2017. The sternotomy wires and surgical clips noted previously are again evident and no different. There are chronic pulmonary changes evident. These findings seem similar to the prior exam. There is no evidence for failure, pneumonia or for pleural effusion to indicate an acute abnormality. The mediastinum is not widened. The osseous structures are intact. The deformity of the right clavicle seen previously is again evident. IMPRESSION: There is evidence of prior cardiac surgery and chronic pulmonary disease but there is no sign of an acute abnormality. Assessment/Plan Admission Diagnosis Unstable angina Admission Status: Inpatient Order (span 2 midnights) Reason for Inpatient Admission: NSTEMI Assessment and Plan Unstable angina CAD s/p CABG HTN troponin elevated on arrival Symptoms improved with morphine and nitro Cardiology consulted, plan for cath today Echo ordered neuropathy Continue gabapentin HLD Continue statin Clinical Quality Measures AMI/AHF: ASA po Prior to arrival: Yes (324) DVT/VTE Risk/Contraindication: Risk Factor Score Per Nursin RFS Level Per Nursing on Admit: 4+=Very High ANTONI SHERMAN MD Aug 16, 2019 08:47
--- NOTE | 2019-08-16 09:01 | Consultation-Cardiology ---
HPI-Cardiology Cardiology Consultation Date of Consultation 08/16/19 Date of Admission Time Seen by Provider: 08:58 Indication: chest pain HPI 68-year-old gentleman with history of coronary artery disease, CABG 3 done in 2003, hypertension hyperlipidemia. Was in his usual state of health until the last week when she noticed some chest tightness on exertion waxing and waning. Woke up last night with stabbing pain in his back radiating to his chest. Took some nitroglycerin at home which helped his pain, came into the emergency room for evaluation. Noted to have mild elevation in troponin, currently laying down in bed, no active chest pain. Denied any palpitation. No syncope. Home Medications & Allergies Allergies: Coded Allergies: No Known Drug Allergies (Unverified , 12/12/17) Home Medication List Reviewed: Yes BKZ-Xvsnkh-Xriecs Hx Patient Social History Alcohol Use: Denies Use Recreational Drug Use: No Drug of Choice: denies Smoking Status: Former Smoker Type Used: Cigarettes 2nd Hand Smoke Exposure: No Recent Foreign Travel: No Recent Infectious Disease Expo: No Recent Hopitalizations: No Immunizations Up To Date Tetanus Booster (TDap): Unknown Date of Pneumonia Vaccine: Aug 15, 2016 Past Medical History Discussed below Family Medical History Significant Family History: No Pertinent Family Hx Family Medical Hx Noncontributory Review of Systems-General Review of Systems Constitutional: see HPI; No chills; diaphoresis; No fever EENTM: see HPI, no symptoms reported Respiratory: see HPI; No cough, No dyspnea on exertion, No hemoptysis, No orthopnea, No phlegm; short of breath; No stridor, No wheezing, No other Cardiovascular: see HPI, chest pain; No edema; Hx of Intervention; No palpitations, No syncope, No vascular heart diseas, No other Gastrointestinal: see HPI; No abdominal pain; nausea; No vomiting Genitourinary: no symptoms reported, see HPI Musculoskeletal: see HPI, joint pain (left shoulder pain) Skin: no symptoms reported, see HPI Psychiatric/Neurological: No Symptoms Reported Reviewed Test Results Reviewed Test Results Lab Laboratory Tests Test 08/16/19 02:43 08/16/19 05:00 Range/Units White Blood Count 6.8 4.3-11.0 10^3/uL Red Blood Count 3.47 L 4.35-5.85 10^6/uL Hemoglobin 11.6 L 13.3-17.7 G/DL Hematocrit 34 L 40-54 % Mean Corpuscular Volume 97 80-99 FL Mean Corpuscular Hemoglobin 33 25-34 PG Mean Corpuscular Hemoglobin Concent 34 32-36 G/DL Red Cell Distribution Width 12.4 10.0-14.5 % Platelet Count 297 130-400 10^3/uL Mean Platelet Volume 8.0 7.4-10.4 FL Neutrophils (%) (Auto) 36 L 42-75 % Lymphocytes (%) (Auto) 48 H 12-44 % Monocytes (%) (Auto) 11 0-12 % Eosinophils (%) (Auto) 5 0-10 % Basophils (%) (Auto) 1 0-10 % Neutrophils # (Auto) 2.4 1.8-7.8 X 10^3 Lymphocytes # (Auto) 3.2 1.0-4.0 X 10^3 Monocytes # (Auto) 0.7 0.0-1.0 X 10^3 Eosinophils # (Auto) 0.3 0.0-0.3 10^3/uL Basophils # (Auto) 0.1 0.0-0.1 10^3/uL Prothrombin Time 13.4 12.2-14.7 SEC INR Comment 1.0 0.8-1.4 Activated Partial Thromboplast Time 23 L 24-35 SEC Sodium Level 137 135-145 MMOL/L Potassium Level 3.8 3.6-5.0 MMOL/L Chloride Level 103 98-107 MMOL/L Carbon Dioxide Level 24 21-32 MMOL/L Anion Gap 10 5-14 MMOL/L Blood Urea Nitrogen 9 7-18 MG/DL Creatinine 0.81 0.60-1.30 MG/DL Estimat Glomerular Filtration Rate > 60 BUN/Creatinine Ratio 11 Glucose Level 108 H 70-105 MG/DL Calcium Level 8.7 8.5-10.1 MG/DL Corrected Calcium 8.8 8.5-10.1 MG/DL Magnesium Level 1.9 1.6-2.4 MG/DL Total Bilirubin 0.4 0.1-1.0 MG/DL Aspartate Amino Transf (AST/SGOT) 15 5-34 U/L Alanine Aminotransferase (ALT/SGPT) 10 0-55 U/L Alkaline Phosphatase 51 40-136 U/L Myoglobin 63.5 10.0-92.0 NG/ML Troponin I 0.067 H 0.090 H <0.028 NG/ML Total Protein 6.0 L 6.4-8.2 GM/DL Albumin 3.9 3.2-4.5 GM/DL Triglycerides Level 57 <150 MG/DL Cholesterol Level 135 < 200 MG/DL LDL Cholesterol Direct 79 1-129 MG/DL VLDL Cholesterol 11 5-40 MG/DL HDL Cholesterol 50 40-60 MG/DL Physical Exam Physical Exam Vital Signs Vital Signs - First Documented Capillary Refill : Less Than 3 Seconds Height, Weight, BMI Height: 5'11.00" Weight: 176lbs. 1.6oz. 79.739305en; 24.33 BMI Method: General Appearance: No Apparent Distress, WD/WN HEENT: PERRL/EOMI, Moist Mucous Membranes; No Scleral Icterus (L), No Scleral Icterus (R) Neck: Normal Inspection, Supple Respiratory: Lungs Clear, No Accessory Muscle Use, No Respiratory Distress Cardiovascular: Regular Rate, Rhythm, Systolic Murmur Gastrointestinal: Normal Bowel Sounds, Non Tender, Soft Extremity: Normal Inspection, No Calf Tenderness, No Pedal Edema Neurologic/Psychiatric: Alert, Oriented x3, Normal Mood/Affect Skin: Normal Color, Warm/Dry A/P-Cardiology Admission Diagnosis Non-ST elevation myocardial infarction Coronary artery disease Hypertension Hyperlipidemia Assessment/Plan Non-ST elevation myocardial infarction, mild elevation in troponin, no acute EKG changes, chest pain responded to nitroglycerin, planning to proceed with cardiac catheterization possible PTCA. Coronary artery disease, history of CABG 3 done in 2003 in [place]. No recent cardiac workup, planning to proceed with cardiac catheterization Hypertension, restart home medication monitor blood pressure Hyperlipidemia, evaluate lipids. Tobaccoism, chewing tobacco, educated on avoiding tobacco products. Clinical Quality Measures AMI/AHF: ASA po Prior to arrival: Yes (324) DVT/VTE Risk/Contraindication: Risk Factor Score Per Nursin RFS Level Per Nursing on Admit: 4+=Very High TOM BULL MD Aug 16, 2019 09:01
--- NOTE | 2019-08-16 09:01 | Cardiac Procedure Note-CS/ASA ---
Pre-Procedure Note Pre-Op Procedure Note H&P Reviewed The H&P was reviewed, patient examined and no changes noted. Date H&P Reviewed: Aug 16, 2019 Time H&P Reviewed: 09:01 Conscious Sedation Pre-Proced Time 09:01 ASA Score 3 For ASA 3 and 4: Consider anesthesia and medical clearance. Also, for patients with a history of failed moderate sedation consider anesthesia. Airway Lungs Heart ASA score ASA 1: a normal healthy patient ASA 2: a patient with a mild systemic disease (mid diabetes, controlled hypertension, obesity x ASA 3: a patient with a severe systemic disease that limits activity (angina, COPD, prior Myocardial infarction) ASA 4: a patient with an incapacitating disease that is a constant threat to life (CHF, renal failure) ASA 5: a moribund patient not expected to survive 24 hrs. (ruptured aneurysm) ASA 6: a declared brain- patient whose organs are being harvested. For emergent operations, add the letter E after the classification Mallampati Classification Grade 3 Sedation Plan Analgesia, Amnesia, Plan communicated to team members, Discussed options with patient/fam, Discussed risks with patient/fam The patient is an appropriate candidate to undergo the planned procedure, sedation, and anesthesia. The patient immediately re-assessed prior to indication. TOM BULL MD Aug 16, 2019 09:01
--- NOTE | 2019-08-16 09:25 | NUR ---
PT TO [facility] AT 0915.
[2019-08-16] MEDS ORDERED: LIDOCAINE 1% INJ 20 ML 20 ML VIAL ONE (09:53)
[2019-08-16] MEDS: ASPIRIN E.C. 81 MG (ECOTRIN) TAB PO SCH ×2 (10:23→11:46)
[2019-08-16] MEDS ORDERED: NS IV 1000 ML 1,000 ML IV SCH (10:26)
[2019-08-16] MEDS ORDERED: HEParin (CATH LAB) 2,000 ML IV ONE (10:27)
[2019-08-16] MEDS ORDERED: CLOPIDOGREL 75 MG (PLAVIX) TABLET PO SCH (10:30)
[2019-08-16] MEDS ORDERED: PATIENT MAY USE OWN MEDS, ALL PO SCH (10:30)
--- NOTE | 2019-08-16 10:36 | Cardiac Cath Report ---
Cardiac Cath Report Physician (s)/Elementary School Teacher (s) Physician TOM BULL MD Pre-Procedure Diagnosis Pre-Procedure Diagnosis: non-ST TN Post-Procedure Note Procedure Start Date: Aug 16, 2019 Name of Procedure: Left heart catheterization Vein graft angiogram Left subclavian angiogram Abdominal aortogram Findings/Procedure Note PROCEDURE NOTE: 68-year-old gentleman with history of coronary artery disease, CABG done in 2003, admitted with one episode of chest pain and mild elevation in troponin, decided to proceed with cardiac catheterization. After explaining the procedure to the patient, all pros and cons were explained, all questions were answered. The patient signed the consent and then he was placed on the cardiac catheterization laboratory. Groin was prepped SL fashion local anesthesia was used. Sheath placed in the right femoral artery. Albert right and left catheter were used to access the coronary system.Vein Graft evaluated. I try to advance JR catheter to the subclavian artery, noticed some atherosclerotic plaque I did angiogram then exchanged the catheter into pigtail catheter placed in the abdominal aorta and abdominal aortogram was done due to difficulty advancing the wire during the procedure Left ventriculogram was not done At the end of the procedure the sheath was removed. Closure device was used FINDINGS: Hemodynamics LV 135/10, end-diastolic pressure of 10 Aorta 122/54 mean of 81 ANATOMY: Left Main has severe distal stenosis Left Anterior Descending is occluded proximally, vein graft to the mid LAD is patent filling D1 and D2 then the distal LAD is occluded Left Circumflex has severe ostial stenosis, the vein graft to the circumflex is occluded Right Coronory Artery is dominant artery, occluded proximally with patent vein graft HANCOCK was not evaluated directly, subclavian angiogram showed atherosclerotic plaque in the subclavian artery, no HANCCOK was not identified Vein Graft evaluation done, markers of 3 vein grafts were noted Vein graft to the right coronary artery is patent with good flow distally Vein graft to the mid LAD is patent, D1 and D2 are patent and the LAD is occluded distally Vein graft to the circumflex artery is occluded Abdominal aortogram was done showed atherosclerotic plaques in the abdominal aorta, right renal artery appeared to have moderate to severe stenosis, left renal artery has mild to moderate stenosis, diffuse plaque were noted in the iliac artery. Superior and inferior mesenteric arteries were normal CONCLUSION: 1. Occlusion of the vein graft to the circumflex artery with severe ostial circumflex artery and severe distal left main artery 2. Patent vein graft to the mid LAD with occluded distal LAD 3. Patent vein graft to the right coronary artery 4. Severe three affiliated coronary artery disease 5. Moderate stenosis in the left subclavian artery, HANCOCK was not visualized 6. Moderate to severe stenosis in the right renal artery 7. Mild to moderate stenosis in the left renal artery 8. Atherosclerotic plaques in the abdominal aorta and iliac arteries DISCUSSION AND RECOMMENDATION: Maximizing medical therapy, consideration for high risk intervention to the left main and circumflex artery with the assistance of Rotablator Anesthesia Type: Conscious Sedation Estimated blood loss (mL): 30 ml Contrast Amount: 90 ml Total Radiation Dose: 247 mGy Post-Procedure Diagnosis Post-operative diagnosis: Non-ST elevation myocardial infarction Coronary artery disease Hypertension Hyperlipidemia TOM BULL MD Aug 16, 2019 10:36 am
[2019-08-16] MEDS ORDERED: fentaNYL INJECTION 100 MCG/2 ML AMP ONE (11:47)
[2019-08-16] MEDS ORDERED: MIDAZOLAM 5 MG/5 ML (VERSED) VIAL ONE (11:47)
[2019-08-16] MEDS ORDERED: meTOprolol 5 MG/5 ML (LOPRESSOR) VIAL IV ONE (12:15)
[2019-08-16] MEDS ORDERED: amLODIPine 10 MG (NORVASC) TAB PO ONE (12:15)
--- NOTE | 2019-08-16 12:26 | NUR ---
PT REPORT CALLED TO [facility]. [phone]. PT GOING TO ROOM 212.
[2019-08-16] MEDS ORDERED: CATHETER FLUSH 10 ML SYR IV SCH (14:00)
== END 2019-08-16 12:45 | disposition short-term general hospital (02) | DRG 282 ==
LOC: EDUNIT# 02:35 → ER 02:38 → ICU 03:31
PROVIDERS: ADMIT Internal Medicine; ATTEND Internal Medicine
PROC: 4A023N7 Measurement of Cardiac Sampling and Pressure, Left Heart, Percutaneous Approach (ICD-10-PCS; principal; 2019-08-16)
PROC: B2111ZZ Fluoroscopy of Multiple Coronary Arteries using Low Osmolar Contrast (ICD-10-PCS; 2019-08-16)
PROC: B2131ZZ Fluoroscopy of Multiple Coronary Artery Bypass Grafts using Low Osmolar Contrast (ICD-10-PCS; 2019-08-16)
PROC: B3121ZZ Fluoroscopy of Left Subclavian Artery using Low Osmolar Contrast (ICD-10-PCS; 2019-08-16)
PROC: B4101ZZ Fluoroscopy of Abdominal Aorta using Low Osmolar Contrast (ICD-10-PCS; 2019-08-16)
PROC: B4181ZZ Fluoroscopy of Bilateral Renal Arteries using Low Osmolar Contrast (ICD-10-PCS; 2019-08-16)
PROC: B41B1ZZ Fluoroscopy of Other Intra-Abdominal Arteries using Low Osmolar Contrast (ICD-10-PCS; 2019-08-16)
DX: I21.4 Non-ST elevation (NSTEMI) myocardial infarction (principal); I25.710 Atherosclerosis of autologous vein coronary artery bypass graft(s) with unstable angina pectoris; I25.110 Atherosclerotic heart disease of native coronary artery with unstable angina pectoris; I70.0 Atherosclerosis of aorta; I70.1 Atherosclerosis of renal artery; I70.8 Atherosclerosis of other arteries; J43.9 Emphysema, unspecified; G62.9 Polyneuropathy, unspecified; E78.5 Hyperlipidemia, unspecified; I10 Essential (primary) hypertension; K21.9 Gastro-esophageal reflux disease without esophagitis; F41.9 Anxiety disorder, unspecified; F32.9 Major depressive disorder, single episode, unspecified; Z95.1 Presence of aortocoronary bypass graft
CPT/HCPCS: 36415; 71045; 75625; 80053; 80061; 83735; 83874; 84484; 85025; 85610; 85730; 87081; 93005; 93041; 93306; 93459; 96374; 96376

== ENCOUNTER 2019-08-19 20:55 | Emergency (ER) | payer MEDICARE ==
[~2019-08-19] VITALS: Ht 180.3 cm; Wt 77.1 kg
[~2019-08-19 20:55] MED LIST changes: +SILD20TA14 PO; +SILD25TA9 PO
--- NOTE | 2019-08-19 21:09 | ED Cardiac General ---
History of Present Illness General Stated Complaint: SKIN ISSUES Source: patient Exam Limitations: no limitations History of Present Illness Date Seen by Provider: Aug 19, 2019 Time Seen by Provider: 20:52 Initial Comments Patient presents ER by EMS from [facility] with chief complaint that he noticed some increased swelling in his right thigh were 2 days ago he had Angiocath at [place] by unknown cleaning handyman. He was seen here by Dr. York and had a cardiac catheterization but he was told he had transfer back to [place] for intervention. They put 2 stents in his heart Monday morning, 2 days ago. We put him on Brilinta and carvedilol which are new drugs to him. He took his first dose yesterday morning and he said when he took the carvedilol it made him very lightheaded when he would stand up so he has not taken it again today. He knows the swelling this evening and his right thigh and increasing shortness of breath so he decided to come to the ER but when he stood up to walk he said he nearly passed out. He said his blood pressure measured 70 systolic so he called an ambulance instead. He denies any chest pain. He has chronic emphysema and relies on 3 L by nasal cannula. No fevers chills cough. History of coronary disease with CABG in 2003. Coronary angiogram 08/16/[address] York: 1. Occlusion of the vein graft to the circumflex artery with severe ostial circumflex artery and severe distal left main artery 2. Patent vein graft to the mid LAD with occluded distal LAD 3. Patent vein graft to the right coronary artery 4. Severe [place] coronary artery disease 5. Moderate stenosis in the left subclavian artery, HANC[place] was not visualized 6. Moderate to severe stenosis in the right renal artery 7. Mild to moderate stenosis in the left renal artery 8. Atherosclerotic plaques in the abdominal aorta and iliac arteries Recommended maximizing medical therapy and considering high risk intervention to the left main and circumflex artery with the assistance of a Rotablator. Echocardiogram by Dr. York 08/16/2019: EF 55-65% with grade 2 diastolic dysfunction. Allergies and Home Medications Allergies Coded Allergies: No Known Drug Allergies (Unverified , 12/12/17) Home Medications Albuterol Sulfate 1 Puff Puff, 2 PUFF IH BID PRN for SHORTNESS OF BREATH, (Reported) 1 PUFF = 90 MCG Aspirin 81 Mg Tablet., 81 MG PO DAILY, (Reported) Cyclobenzaprine HCl 10 Mg Tablet, 10 MG PO Q8HR Prescribed by: PEPITO PIERRE on 12/17/17 1013 Docusate Sodium 100 Mg Capsule, 100 MG PO BID Prescribed by: PEPITO PIERRE on 12/17/17 1013 Gabapentin 300 Mg Capsule, 1,500 MG PO HS, (Reported) TAKES 5 (300MG) CAPSULES Hydrocodone Bit/Acetaminophen 1 Tab Tab, 1-2 TAB PO Q6HR PRN for PAIN-MODERATE Prescribed by: PEPITO PIERRE on 12/17/17 1013 Losartan Potassium 50 Mg Tablet, 50 MG PO DAILY, (Reported) Multivitamin 1 Each Tablet, 1 TAB PO DAILY, (Reported) Simvastatin 40 Mg Tablet, 20 MG PO HS, (Reported) TAKES 1/2 (40MG) TABLET Tamsulosin HCl 0.4 Mg Cap, 0.4 MG PO HS, (Reported) Patient Home Medication List Home Medication List Reviewed: Yes Review of Systems Review of Systems Constitutional: No chills, No diaphoresis EENTM: No Blurred Vision, No Double Vision Respiratory: Denies Cough; Shortness of Air, SOA With Exertion Cardiovascular: Denies Chest Pain, Denies Edema Gastrointestinal: Denies Constipated, Denies Diarrhea, Denies Nausea Genitourinary: Denies Burning, Denies Discharge, Denies Drainage Musculoskeletal: No back pain, No joint pain Skin: see HPI, change in color Psychiatric/Neurological: Denies Anxiety, Denies Depressed All Other Systems Reviewed Negative Unless Noted: Yes Past Eprueds-Afjuqp-Irprac Hx Patient Social History Alcohol Use: Denies Use Recreational Drug Use: No Drug of Choice: denies Smoking Status: Former Smoker Type Used: Cigarettes Former Smoker, Quit: Dec 13, 2016 2nd Hand Smoke Exposure: No Recent Hopitalizations: No Immunizations Up To Date Tetanus Booster (TDap): Unknown Date of Pneumonia Vaccine: Aug 15, 2016 Seasonal Allergies Seasonal Allergies: No Past Medical History Surgeries: Yes (CABG,PANCREAS SURGERY,VASECTOMY, STENTS) Abdominal, Cardiac, CABG, Vasectomy Respiratory: Yes COPD, Emphysema Currently Using CPAP: No Currently Using BIPAP: No Cardiac: Yes Coronary Artery Disease, Heart Attack, High Cholesterol, Hypertension Neurological: No Reproductive Disorders: No Genitourinary: No Gastrointestinal: Yes Gastroesophageal Reflux, Esophageal Varices, Irritable Bowel Musculoskeletal: Yes (CHRONIC NECK AND BACK PAIN ) Degenerate Disk Disease, Chronic Back Pain, Fractures Endocrine: No HEENT: Yes Loss of Vision: Denies Hearing Impairment: Denies Cancer: No Psychosocial: Yes Anxiety, Depression Integumentary: No Blood Disorders: No Family Medical History No Pertinent Family Hx Physical Exam Vital Signs Vital Signs - First Documented 08/19/19 20:55 Temp 37.2 Pulse 74 Resp 18 B/P (MAP) 213/98 (136) Pulse Ox 99 O2 Delivery Nasal Cannula O2 Flow Rate 3.00 Capillary Refill : Height, Weight, BMI Height: 5'11.00" Weight: 176lbs. 1.6oz. [id number]; 24.33 BMI Method: General Appearance: No Apparent Distress, WD/WN HEENT: PERRL/EOMI, Normal ENT Inspection, Pharynx Normal, Moist Mucous Membranes Neck: Full Range of Motion, Normal Inspection, Non Tender Respiratory: Chest Non Tender, No Accessory Muscle Use, No Respiratory Distress, Expiration, Wheezing, Other (96% on 2 L by nasal cannula) Cardiovascular: Regular Rate, Rhythm, No Edema, Normal Peripheral Pulses Gastrointestinal: Normal Bowel Sounds, Non Tender, Soft Extremity: Normal Capillary Refill, Other (right groin has increased swelling and ecchymoses and mild erythema. No induration or pointing.) Neurologic/Psychiatric: Alert, Oriented x3, No Motor/Sensory Deficits Skin: Warm/Dry, Ecchymosis (right groin) Progress/Results/Core Measures Results/Orders Lab Results Laboratory Tests Test 08/19/19 21:00 Range/Units White Blood Count 8.5 4.3-11.0 10^3/uL Red Blood Count 3.64 L 4.35-5.85 10^6/uL Hemoglobin 12.1 L 13.3-17.7 G/DL Hematocrit 36 L 40-54 % Mean Corpuscular Volume 99 80-99 FL Mean Corpuscular Hemoglobin 33 25-34 PG Mean Corpuscular Hemoglobin Concent 34 32-36 G/DL Red Cell Distribution Width 12.4 10.0-14.5 % Platelet Count 285 130-400 10^3/uL Mean Platelet Volume 8.2 7.4-10.4 FL Neutrophils (%) (Auto) 48 42-75 % Lymphocytes (%) (Auto) 34 12-44 % Monocytes (%) (Auto) 12 0-12 % Eosinophils (%) (Auto) 5 0-10 % Basophils (%) (Auto) 1 0-10 % Neutrophils # (Auto) 4.1 1.8-7.8 X 10^3 Lymphocytes # (Auto) 2.9 1.0-4.0 X 10^3 Monocytes # (Auto) 1.0 0.0-1.0 X 10^3 Eosinophils # (Auto) 0.5 H 0.0-0.3 10^3/uL Basophils # (Auto) 0.1 0.0-0.1 10^3/uL Prothrombin Time 12.6 12.2-14.7 SEC INR Comment 0.9 0.8-1.4 Activated Partial Thromboplast Time 27 24-35 SEC Sodium Level 137 135-145 MMOL/L Potassium Level 3.4 L 3.6-5.0 MMOL/L Chloride Level 103 98-107 MMOL/L Carbon Dioxide Level 23 21-32 MMOL/L Anion Gap 11 5-14 MMOL/L Blood Urea Nitrogen 8 7-18 MG/DL Creatinine 0.82 0.60-1.30 MG/DL Estimat Glomerular Filtration Rate > 60 BUN/Creatinine Ratio 10 Glucose Level 133 H 70-105 MG/DL Calcium Level 8.8 8.5-10.1 MG/DL Corrected Calcium 8.8 8.5-10.1 MG/DL Total Bilirubin 0.4 0.1-1.0 MG/DL Aspartate Amino Transf (AST/SGOT) 16 5-34 U/L Alanine Aminotransferase (ALT/SGPT) 12 0-55 U/L Alkaline Phosphatase 59 40-136 U/L Total Protein 6.7 6.4-8.2 GM/DL Albumin 4.0 3.2-4.5 GM/DL My Orders Orders - FARHAT,GRZEGORZ J Chest 1 View, Ap/Pa Only (08/19/19 21:02) Cbc With Automated Diff (08/19/19 21:02) Comprehensive Metabolic Panel (08/19/19 21:02) Continuous Ekg Monitoring (08/19/19 21:02) Ekg Tracing (08/19/19 21:02) Albuterol/Ipra Inhalation Soln (Duoneb I (08/19/19 21:30) Svn Small Volume Nebulizer (08/19/19 21:27) Protime With Inr (08/19/19 21:29) Partial Thromboplastin Time (08/19/19 21:29) Ed Iv/Invasive Line Start (08/19/19 21:33) Ns Iv 1000 Ml (Sodium Chloride 0.9%) (08/19/19 21:33) Medications Given in ED Current Medications Medications Dose Ordered Sig/Talon Route Start Time Stop Time Status Last Admin Dose Admin Albuterol/ Ipratropium 3 ml ONCE ONCE INH 08/19/19 21:30 08/19/19 21:31 DC 08/19/19 21:31 3 ML Vital Signs/I&O 08/19/19 08/19/19 20:55 21:32 Temp 37.2 Pulse 74 Resp 18 B/P (MAP) 213/98 (136) Pulse Ox 99 96 O2 Delivery Nasal Cannula Nasal Cannula O2 Flow Rate 3.00 3.00 Progress Progress Note #1: Time: 21:08 Progress Note Suspect an insertional site bleed/hematoma. We'll get labs, EKG chest x-ray. He is only on 2 L per cannula and satting well. We will give him a DuoNeb for his wheezing. Ultrasound is not available tonight. We'll talk to cardiology. Progress Note #2: Time: 22:02 Progress Note Patient has declined to complete his IV fluids. We'll allow him to follow-up with Dr. York in the morning. Initial ECG Impression Date: Aug 19, 2019 Initial ECG Impression Time: 21:01 Initial ECG Rate: 75 Initial ECG Rhythm: Normal Sinus Initial ECG Intervals: Normal Initial ECG Impression: Normal, Nonspecific Changes Initial ECG Comparisson: Unchanged Comment Normal sinus rhythm with one half box ST depression in the anterior lateral leads V3, V4, V5 and V6. No ST elevation TX. Unchanged from previous EKG. Diagnostic Imaging Diagonstic Imaging: Xray Plain Films/CT/US/NM/MRI: chest (1 view) Reviewed: Reviewed by Me Consults : Consulting Physician: TOM YORK MD Consults Notes Discussed the case, orthostasis, medications and he says it's okay to hold the carvedilol for now and give him some fluids for his orthostasis. He will be happy to see the patient in the clinic and do an ultrasound of his leg in the morning if the patient will give a call ahead of time. We discussed the hemoglobin being normal 12 and he would highly recommend the patient continue taking the Brilinta. Departure Impression Primary Impression: Hematoma of groin Qualified Codes: S30.1XXA - Contusion of abdominal wall, initial encounter Additional Impression: Orthostasis Disposition: 01 HOME, SELF-CARE Condition: Stable Departure-Patient Inst. Decision time for Depature: 22:02 Referrals: TOM YORK MD NO,LOCAL PHYSICIAN (PCP) Primary Care Physician Patient Instructions: HEMATOMA, Orthostatic Hypotension (DC) Add. Discharge Instructions: Please return to the ER promptly. Experience chest pain or worsening shortness of air. Continue taking the Brilinta. Discontinue taking the carvedilol/Coreg. Tomorrow morning call Dr. York at his clinic and request follow-up same day for your hematoma of the leg. GRZEGORZ DOUGHERTY Aug 19, 2019 21:09
[2019-08-19 21:25] LABS: BASOPHILS # (AUTO) 0.1 10^3/uL (0.0-0.1); BASOPHILS % (AUTO) 1 % (0-10); EOSINOPHILS # (AUTO) 0.5 10^3/uL (0.0-0.3); EOSINOPHILS % (AUTO) 5 % (0-10); HEMATOCRIT 36 % (40-54); HEMOGLOBIN 12.1 G/DL (13.3-17.7); LYMPHOCYTES # (AUTO) 2.9 X 10^3 (1.0-4.0); LYMPHOCYTES % (AUTO) 34 % (12-44); MEAN CORPUSCULAR HEMOGLOBIN 33 PG (25-34); MEAN CORPUSCULAR HGB CONC 34 G/DL (32-36); MEAN CORPUSCULAR VOLUME 99 FL (80-99); MEAN PLATELET VOLUME 8.2 FL (7.4-10.4); MONOCYTES % (AUTO) 12 % (0-12); NEUTROPHILS # (AUTO) 4.1 X 10^3 (1.8-7.8); NEUTROPHILS % (AUTO) 48 % (42-75); PLATELET COUNT 285 10^3/uL (130-400); RED CELL DISTRIBUTION WIDTH 12.4 % (10.0-14.5); WHITE BLOOD COUNT 8.5 10^3/uL (4.3-11.0)
[2019-08-19] MEDS ORDERED: RT-ALBUTEROL/IPRATROPIUM 3 ML (DUONEB) VIAL INH ONE (21:30)
[2019-08-19 21:33] LABS: ALANINE AMINOTRANSFERASE 12 U/L (0-55); ALKALINE PHOSPHATASE 59 U/L (40-136); BILIRUBIN,TOTAL 0.4 MG/DL (0.1-1.0); BUN/CREATININE RATIO 10; CALCIUM 8.8 MG/DL (8.5-10.1); CARBON DIOXIDE 23 MMOL/L (21-32); CHLORIDE 103 MMOL/L (98-107); CREATININE SERUM 0.82 MG/DL (0.60-1.30); GFR ESTIMATED > 60; GLUCOSE 133 MG/DL (70-105); POTASSIUM 3.4 MMOL/L (3.6-5.0); SODIUM 137 MMOL/L (135-145); TOTAL PROTEIN 6.7 GM/DL (6.4-8.2)
[2019-08-19] MEDS ORDERED: NS IV 1000 ML 1,000 ML IV SCH (21:33)
[2019-08-19 21:40] LABS: INR 0.9 (0.8-1.4); PROTHROMBIN TIME PATIENT 12.6 SEC (12.2-14.7)
--- NOTE | 2019-08-19 22:00 | Diagnostic Imaging Report ---
INDICATION: Short of air and cough. A single view of the chest shows normal heart size and vascularity. The lungs are clear. There is no effusion or pneumothorax. There are changes of prior median sternotomy. IMPRESSION: No acute abnormality is seen with no change from 08/16/2019. Dictated by: Dictated on workstation # [id number]
[2019-08-19 23:00] VITALS: BP 182/96
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
--- OUTSIDE RECORDS SUMMARY | 2019-08-20 00:51 | XMS REPORT | Encounter Summary ---
Author Author Department [facility]UEL Organization Department of [facility] Address [address] [place] [address] Phone Unavailable Care Team Providers Care [place] Management Professor Name Role Phone BRITTANEY VILLEDA PCP Unavailable [...] PART B Apr 13, 2007 PART B [id number] [phone] JUAN MANUEL MARTIN PATIENT MEDICARE (WNR) MEDICARE (M) PART B Apr 13, 2007 PART B [id number] [phone] JUAN MANUEL MARTIN PATIENT MEDICARE (WNR) MEDICARE (M) PART A Sep 10, 2005 PART A [id number] MARTIN,GARY PATIENT MEDICARE (WNR) MEDICARE (M) PART A Sep 10, 2005 PART A [id number] [phone] JUAN MANUEL MARTIN PATIENT MEDICARE (WNR) MEDICARE (M) PART A Sep 10, 2005 PART A [id number] VERONICAJUAN MANUEL PATIENT Selected Encounter This section includes the information on record at [place] for the Encounter. Date/Time Encounter Type Encounter Description Reason Provider Source Dec 06, 2018 11:02 AM Outpatient Encounter ADMIN PAT ACTIVTIES (MELANIE CUADRA) [facility] IHE Encounter Template Text [...] 02, 2019 08:30 AM AMBULATORY - NONE [facility] Jan 08, 2019 09:00 AM AMBULATORY - MEDICINE [facility] Jan 23, 2019 09:15 AM AMBULATORY - NONE [facility] Surgical Procedures: All associated [...] Range Comment Jan 02, 2019 08:29 AM [facility] CBC & DIFF Specimen [...] Comment Facility May 28, 2018 11:45 AM [place]-TOBACCO FORMER USER [facility] Tobacco Use History This section includes a history of the smoking, or tobacco -related health factors, that were collected on or before the date of the Encoun ter. The data comes from the [place] facility where the Encounter took place. Date/Time Smoking Status/Tobacco Use Comment [facility] May 28, 2018 11:45 AM VA-TOBACCO QUIT 15 YRS OR MORE [place] [facility] Dec 25, 2017 02:23 PM NON-TOBACCO USER KO [facility] Jan 25, 2017 09:53 AM NON-TOBACCO USER KO [facility] Dec 22, 2015 09:45 AM NON-TOBACCO USER [facility] Advance Directives: All historical [...] 02, 2018 ADVANCE DIRECTIVE DISCUSSION FLO KRUEGER [facility] Oct 17, 2000 ADVANCE DIRECTIVE EUNICE RODRIGUEZ [facility], VISN 15 Allergies and Adverse Reactions (ADRs): All historical and current Section Date Range: From patient's date of to the date document was create d. This section includes Allergies and Adverse Reactions (ADR s) on record with [place] for the patient. The data comes from a ll [place] treatment facilities. It does not list Allergies/ADRs that were removed or entered in error. Some allergies/ADRs may be reported in t he Immunization section. Allergen Event Date Event Type Reaction(s) Severity Source No Known Allergies [facility] No Allergy Assessment on File [facility] Medications: VA dispensed (-15 months) and Non-VA Documented (Obtained Outside A) Section Date Range: 1) prescriptions processed by a [place] pharmacy in the last 15 m ont, and 2) all medications recorded in the [place] medical record as "non-VA medic ations". Pharmacy terms refer to [place] pharmacy's work on prescriptions. [place] patient s are advised to take their [...] A DAY NEEDED 180 Jan 09, 2020 [id number] Apr 10, 2019 MAK VILLEDA ALBUTEROL SO4 0.083% INHL,3ML Discontinued USE 3 MLS IN NEBULIZER FOR INHALATION TWO TIMES A DAY NEEDED 180 Jan 27, 2019 [id number] Nov 01, 2018 BRITTANEY VENEGAS ALBUTEROL SO4 90MCG/ACTUAT (CFC-F) INHL,ORAL,6.7GM Active INHALE 2 PUFFS BY ORAL INHALATION TWO TIMES A DAY NEEDED - RINSE MOUTHPIECE FREQUENTLY TO PREVENT CLOGGING 2 Aug 30, 2019 [id number] Mar 18, 2019 BRITTANEY VILLEDA [facility] ALBUTEROL SO4 90MCG/ACTUAT (CFC-F) INHL,ORAL,6.7GM Discontin ued INHALE 2 PUFFS BY ORAL INHALATION TWO TIMES A DAY NEEDED - RINSE MOUTHPIECE FREQUENTLY TO PREVENT CLOGGING 2 Mar 27, 2019 [id number] Aug 30, 2018 BRITTANEY VILLEDA [facility] BUDESONIDE 80MCG/FORMOTEROL FUM 4.5MCG/SPRAY INHL,ORAL,10.2G M Active INHALE 2 PUFFS BY ORAL INHALATION TWO TIMES A DAY FOR BREATHING. SHAKE WELL. RINSE MOUTH AND SPIT AFTER EACH USE. 3 Jun 24, 2020 [id number] Jun 24, 2019 BRITTANEY VILLEDA BUDESONIDE 80MCG/FORMOTEROL FUM 4.5MCG/SPRAY INHL,ORAL,10.2G M Discontinued INHALE 2 PUFFS BY ORAL INHALATION TWO TIMES A DAY FOR BREATHING. SHAKE WELL. RINSE MOUTH AND SPIT AFTER EACH USE. 3 Dec 07, 2019 [id number] Mar 18, 2019 BRITTANEY VILLEDA [facility] FERROUS SO4 324MG TAB,EC Active TAKE ONE TABLET BY MOUTH TWO TIMES A DAY FOR IRON SUPPLEMENTATION. MAY TAKE WITH FOOD IF NOT TOLERATED ON EMPTY STOMACH 200 Jan 09, 2020 [id number] Apr 23, 2019 BRITTANEY VILLEDA [facility] FERROUS SO4 324MG TAB,EC Discontinued TAKE ONE TABLET BY MOUTH TWO TIMES A DAY FOR IRON SUPPLEMENTATION. MAY TAKE WITH FOOD IF NOT TOLERATED ON EMPTY STOMACH 200 May 02, 2019 [id number] Nov 14, 2018 BRITTANEY VILLEDA [facility] FOLIC ACID 1MG TAB Active TAKE ONE TABLET BY MOUTH ONCE A DAY 90 Nov 22, 2019 [id number] Mar 18, 2019 BRITTANEY VILLEDA FOLIC ACID 1MG TAB Discontinued TAKE ONE TABLET BY MOUTH ONCE A DAY 90 May 02, 2019 [id number] Sep 26, 2018 BRITTANEY VILLEDA GABAPENTIN 300MG CAP Discontinued TAKE 2 CAPSULES BY MOUTH FOUR TITO ES A DAY 720 Jan 27, 2019 [id number] Nov 14, 2018 BRITTANEY VILLEDA GABAPENTIN 400MG CAP Active TAKE 1 CAPSULE BY MOUTH THREE TITO ES A DAY 270 Dec 07, 2019 [id number] Mar 18, 2019 BRITTANEY VILLEDA HYDROCODONE 10MG/ACETAMINOPHEN 325MG TAB Non-VA TAKE ONE TABLET BY MOUTH FOUR TIMES A DAY Non-VA Documented by: RAMY TRENT nted at: STEFANI SPAIN LISINOPRIL 10MG TAB Discontinued TAKE ONE-HALF TABLET BY MOUTH EVERY MORNING FOR HEART OR HIGH BLOOD PRESSURE 15 Jun 01, 2019 [id number] Jun 02, 2018 BRITTANEY VILLEDA [facility] LOSARTAN 25MG TAB Active TAKE ONE TABLET BY MOUTH ONCE A DAY FOR BLOOD PRESSURE 90 Jan 09, 2020 [id number] Apr 23, 2019 BRITTANEY VILLEDA CBO C LOSARTAN 25MG TAB Discontinued TAKE ONE TABLET BY M OUTH ONCE A DAY FOR BLOOD PRESSURE 90 July 13, 2019 [id number] Nov 14, 2018 [facility] MELOX[facility] 15MG TAB TAKE ONE TABLET BY M OUTH ONCE A DAY FOR PAIN OR INFLAMMATION. 90 Jun 01, 2019 [id number] Mar 18, 2019 BRITTANEY VILLEDA METOPROLOL TARTRATE 25MG TAB Active TAKE ONE-SMITH LF TABLET BY MOUTH TWO TIMES A DAY FOR HEART/BLOOD PRESSURE. TAKE WITH OR IMMEDIATELY FOLLOWING FOOD. 90 Jan 09, 2020 [id number] Apr 23, 2019 BRITTANEY VILLEDA METOPROLOL TARTRATE 25MG TAB Discontinued TAKE ONE-SMITH LF TABLET BY MOUTH TWO TIMES A DAY FOR HEART/BLOOD PRESSURE. TAKE WITH OR IMMEDIATELY FOLLOWING FOOD. 90 July 13, 2019 [id number] Nov 14, 2018 TIERRA KWONG [facility] [address] SIMVASTATIN 40MG TAB Active TAKE ONE-HALF TABLE T BY MOUTH AT BEDTIME FOR CHOLESTEROL - REPORT ANY UNEXPLAINED MUSCLE PAIN OR WEAKNESS TO YOUR PROVIDER 45 Sep 27, 2019 [id number] Jun 24, 2019 BRITTANEY VILLEDA SIMVASTATIN 40MG TAB Discontinued TAKE ONE-HALF TABLE T BY MOUTH AT BEDTIME FOR CHOLESTEROL - REPORT ANY UNEXPLAINED MUSCLE PAIN OR WEAKNESS TO YOUR PROVIDER 45 Sep 23, 2018 [id number] Jul 05, 2018 BRITTANEY VILLEDA [facility] TAMSULOSIN HCL 0.4MG CAP Discontinued TAKE ONE CAPSUL E BY MOUTH ONCE A DAY FOR PROSTATE. TAKE AT THE SAME TIME EACH DAY WITH FOOD. 90 Jun 17 9 [id number] Jun 14, 2018 BRITTANEY VILLEDA [facility] TAMSULOSIN HCL 0.4MG CAP TAKE ONE CAPSUL E BY MOUTH ONCE A DAY FOR PROSTATE. TAKE AT THE SAME TIME EACH DAY WITH FOOD. 90 August 01 0 [id number] Jun 24, 2019 BRITTANEY VILLEDA TIOTROPIUM 2.5MCG/ACTUAT INHL,ORAL,60D,4GM Active INHALE 2 PUFFS BY ORAL INHALATION ONCE A DAY FOR BREATHING. DON'T USE WITH IPRATROPIUM - REPLACES ADVAIR. 3 Jun 24, 2020 [id number] Jun 24, 2019 BRITTANEY VILLEDA [facility] TIOTROPIUM 2.5MCG/ACTUAT INHL,ORAL,60D,4GM Discontinued INHALE 2 PUFFS BY ORAL INHALATION ONCE A DAY FOR BREATHING. DON'T USE WITH IPRATROPIUM - REPLACES ADVAIR. 3 Oct 13, 2019 [id number] Mar 18, 2019 BRITTANEY VILLEDA [facility] Problems [...] ent(s) Provider Source Actinic keratosis (SNOMED CT 713000451) Active 702.0 BRITTANEY VILLEDA [facility] Alcohol Dependence * (ICD-9-CM 303.90/303.91) Active 303.90 ALEXANDRA KWONG [facility] Anemia Active 285.9 [facility]ISH SCOTT [facility] ANGINA PECTORIS NEC/NOS 413.9 Active 413.9 W [facility] Anxiety Disorder Active 300.00 AURELIANO LINCOLN MD [facility] Benign Neoplasm Skin Head, Neck, Scalp Active 216.4 RENALDO DACOSTA YUMI [facility] CABG Active 799.9 Oct 05, 2006 E ntered By: SATHISH SCOTT Comment: feb, 4-vessel [facility]ISH SCOTT [facility] Chest discomfort (SNOMED CT 968444217) Active 786.59 BRITTANEY VILLEDA [facility] Chronic airway obstruction, Not Elsewhere Classified Active 496. AURELIANO LINCOLN MD [facility] Chronic Low Back Pain Active 724.2 AURELIANO LINCOLN MD [facility] COPD * (ICD-9-CM 496.) Active 496. Robin [facility] Coronary Artery Disease * (ICD-9-CM 414.9) Active 414.9 ALEXANDRA KWONG [facility] Coronary Atherosclerosis of [place] Coronary Vessel Active 414.01 August 03, 2010 Entered By: AURELIANO LINCOLN MD Comment: Bypass surgery AURELIANO LINCOLN MD [facility] Disorder of shoulder (SNOMED CT 957629989) Active 719.91 [facility]ITTANEY VILLEDA [facility] Essential Hypertension Active 401.9 AURELIANO LINCOLN MD [facility] Hyperlipidemia Active 272.4 SATHISH SCOTT [facility] [address] HYPERTENSION NOS 401.9 Active 401.9 ALEXANDRA KWONG [facility] Impotence (SNOMED CT 837062060) Active 302.72 [facility]ITTANEY VILLEDA [facility] 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 AURELIANO LIU MD [facility] Marijuana Dependence unspecified Active 304.30 AURELIANO LINCOLN MD [facility] Microscopic Hematuria (ICD-9-CM 599.72) Active 599.72 BEVERLY SALINAS [facility] Other and unspecified hyperlipidemia Active 272.4 AURELIANO LINCOLN MD [facility] Other, mixed, or unspecified drug abuse, continuous use Active 30 5.91 Jan 30, 2009 Entered By: SATHISH SCOTT Comment: urine drug screen positive for opitates and marijuannaMay 2009 Entered By: SATHISH SCOTT Comment: buying hydrocodone "off the street" SATHISH SCOTT [facility] Pain in joint involving ankle and foot (ICD-9-CM 719.47) Active 719 .47 [facility] SCOTT [facility] Papular eruption (SNOMED CT 978334597) Active 709.8 BRITTANEY VILLEDA [facility] Personal History of Noncompliance with M edical Treatment, Presenting Hazards to Active V15.81 [facility]ISH SCOTT [facility] Tobacco dependence syndrome (SNOMED CT 62159592) Active [id number] July 24, 2009 Entered By: SATHISH SCOTT Comment: one ppd YUMI AVILA [facility] Transient Ischemic Attack * (ICD-9-CM 435.9) Active 435.9 SATHISH SCOTT [facility] ANIETY STAT NOS 300.00 Inactive 300.00 Jan 05, 2005 ALEXANDRA FLOREZ [facility] Bronchitis * (ICD-9-CM 490.) Inactive 490. Jan 05, 2005 BRITTANEY VILLEDA [facility] Postsurgical Aortocoronary Bypass Status (ICD-9-CM V45.81) Inactive V45.81 Oct 05, 2006 SATHISH SCOTT [facility] Radiology Reports: +/- 30 days [...] 2018@11:02 ENTRY DATE: DEC 06, 2018@11:02:52 AUTHOR: DARCY WEN EXP COSIGNER: URGENCY: STATUS: COMPLETED MSA Administrative Note: RECORDS RECEIVED TODAY by: Fax Nature of report:rx for fluticasone and gabapentin Date(s) of record(s):12/06/2018 Sending republican:[facility] /es/ DARCY KO Signed: 12/06/2018 11:03 DARCY WEN [facility]
--- OUTSIDE RECORDS SUMMARY | 2019-08-20 00:51 | XMS REPORT | Encounter Summary ---
Author Author Department [facility] Organization Department of [facility] Address [address] [place] [address] Phone Unavailable Care Team Providers Care Logistic Specialist Name Role Phone BRITTANEY VILLEDA PCP Unavailable [...] PART B Apr 13, 2007 PART B [id number] [phone] JUAN MANUEL MARTIN PATIENT MEDICARE (WNR) MEDICARE (M) PART B Apr 13, 2007 PART B [id number] JUAN MANUEL MARTIN PATIENT MEDICARE (WNR) MEDICARE (M) PART A Sep 10, 2005 PART A [id number] [phone] MARTIN,GARY PATIENT MEDICARE (WNR) MEDICARE (M) PART A Sep 10, 2005 PART A [id number] [phone] JUAN MANUEL MARTIN PATIENT MEDICARE (WNR) MEDICARE (M) PART A Sep 10, 2005 PART A [id number] VERONICAJUAN MANUEL PATIENT Selected Encounter This section [...] Hematology Lab R esults on record with [place] for the patient. Radiology Reports and Pathology [...] Oct 17, 2000 ADVANCE DIRECTIVE EUNICE RODRIGUEZ [facility], VISN 15 Allergies and Adverse [...] Reaction(s) Severity Source No Known Allergies [facility] No Allergy Assessment on File [facility] Medications: [place] dispensed [...] A DAY NEEDED 180 Jan 09, 2020 [id number] Apr 10, 2019 MAK VILLEDA CBTERRENCE ALBUTEROL SO4 0.083% INHL,3ML Discontinued USE 3 MLS IN NEBULIZER FOR INHALATION TWO TIMES A DAY NEEDED 180 Jan 27, 2019 [id number] Nov 01, 2018 BRITTANEY VENEGAS ALBUTEROL SO4 90MCG/ACTUAT (CFC-F) INHL,ORAL,6.7GM Active INHALE 2 PUFFS BY ORAL INHALATION TWO TIMES A DAY NEEDED - RINSE MOUTHPIECE FREQUENTLY TO PREVENT CLOGGING 2 Aug 30, 2019 [id number] Mar 18, 2019 BRITTANEY VILLEDA ALBUTEROL SO4 90MCG/ACTUAT (CFC-F) INHL,ORAL,6.7GM Discontin ued INHALE 2 PUFFS BY ORAL INHALATION TWO TIMES A DAY NEEDED - RINSE MOUTHPIECE FREQUENTLY TO PREVENT CLOGGING 2 Mar 27, 2019 [id number] Aug 30, 2018 BRITTANEY VILLEDA CBTERRENCE BUDESONIDE 80MCG/FORMOTEROL FUM 4.5MCG/SPRAY INHL,ORAL,10.2G M Active INHALE 2 PUFFS BY ORAL INHALATION TWO TIMES A DAY FOR BREATHING. SHAKE WELL. RINSE MOUTH AND SPIT AFTER EACH USE. 3 Jun 24, 2020 [id number] Jun 24, 2019 BRITTANEY VILLEDA BUDESONIDE 80MCG/FORMOTEROL FUM 4.5MCG/SPRAY INHL,ORAL,10.2G M Discontinued INHALE 2 PUFFS BY ORAL INHALATION TWO TIMES A DAY FOR BREATHING. SHAKE WELL. RINSE MOUTH AND SPIT AFTER EACH USE. 3 Dec 07, 2019 [id number] Mar 18, 2019 BRITTANEY VILLEDA FERROUS SO4 324MG TAB,EC Active TAKE ONE TABLET BY MOUTH TWO TIMES A DAY FOR IRON SUPPLEMENTATION. MAY TAKE WITH FOOD IF NOT TOLERATED ON EMPTY STOMACH 200 Jan 09, 2020 [id number] Apr 23, 2019 BRITTANEY VILLEDA FERROUS SO4 324MG TAB,EC Discontinued TAKE ONE TABLET BY MOUTH TWO TIMES A DAY FOR IRON SUPPLEMENTATION. MAY TAKE WITH FOOD IF NOT TOLERATED ON EMPTY STOMACH 200 May 02, 2019 [id number] Nov 14, 2018 BRITTANEY VILLEDA C FOLIC ACID 1MG TAB Active TAKE ONE TABLET BY MOUTH ONCE A DAY 90 Nov 22, 2019 [id number] Mar 18, 2019 BRITTANEY VILLEDA FOLIC ACID 1MG TAB Discontinued TAKE ONE TABLET BY MOUTH ONCE A DAY 90 May 02, 2019 [id number] Sep 26, 2018 BRITTANEY VILLEDA GABAPENTIN 300MG CAP Discontinued TAKE 2 CAPSULES BY MOUTH FOUR TITO ES A DAY 720 Jan 27, 2019 [id number] Nov 14, 2018 BRITTANEY VILLEDA GABAPENTIN 400MG CAP Active TAKE 1 CAPSULE BY MOUTH THREE TITO ES A DAY 270 Dec 07, 2019 [id number] Mar 18, 2019 BRITTANEY VILLEDA HYDROCODONE 10MG/ACETAMINOPHEN 325MG TAB Non-VA TAKE ONE TABLET BY MOUTH FOUR TIMES A DAY Non-VA Documented by: RAMY TRENT nted at: STEFANI SPAIN LISINOPRIL 10MG TAB Discontinued TAKE ONE-HALF TABLET BY MOUTH EVERY MORNING FOR HEART OR HIGH BLOOD PRESSURE 15 Jun 01, 2019 [id number] Jun 02, 2018 BRITTANEY VILLEDA LOSARTAN 25MG TAB Active TAKE ONE TABLET BY MOUTH ONCE A DAY FOR BLOOD PRESSURE 90 Jan 09, 2020 [id number] Apr 23, 2019 BRITTANEY VILLEDA C LOSARTAN 25MG TAB Discontinued TAKE ONE TABLET BY M OUTH ONCE A DAY FOR BLOOD PRESSURE 90 July 13, 2019 [id number] Nov 14, 2018 TIERRA KWONG [facility] MELOXICAM 15MG TAB TAKE ONE TABLET BY M OUTH ONCE A DAY FOR PAIN OR INFLAMMATION. 90 Jun 01, 2019 [id number] Mar 18, 2019 BRITTANEY VILLEDA METOPROLOL TARTRATE 25MG TAB Active TAKE ONE-SMITH LF TABLET BY MOUTH TWO TIMES A DAY FOR HEART/BLOOD PRESSURE. TAKE WITH OR IMMEDIATELY FOLLOWING FOOD. 90 Jan 09, 2020 [id number] Apr 23, 2019 BRITTANEY VILLEDA METOPROLOL TARTRATE 25MG TAB Discontinued TAKE ONE-SMITH LF TABLET BY MOUTH TWO TIMES A DAY FOR HEART/BLOOD PRESSURE. TAKE WITH OR IMMEDIATELY FOLLOWING FOOD. July 13, 2019 [id number] Nov 14, 2018 [facility] SIMVASTATIN 40MG TAB Active TAKE ONE-HALF TABLE T BY MOUTH AT BEDTIME FOR CHOLESTEROL - REPORT ANY UNEXPLAINED MUSCLE PAIN OR WEAKNESS TO YOUR PROVIDER 45 Sep 27, 2019 [id number] Jun 24, 2019 BRITTANEY VILLEDA C SIMVASTATIN 40MG TAB Discontinued TAKE ONE-HALF TABLE T BY MOUTH AT BEDTIME FOR CHOLESTEROL - REPORT ANY UNEXPLAINED MUSCLE PAIN OR WEAKNESS TO YOUR PROVIDER 45 Sep 23, 2018 [id number] Jul 05, 2018 BRITTANEY VILLEDA C TAMSULOSIN HCL 0.4MG CAP Discontinued TAKE ONE CAPSUL E BY MOUTH ONCE A DAY FOR PROSTATE. TAKE AT THE SAME TIME EACH DAY WITH FOOD. 90 Jun 17 9 [id number] Jun 14, 2018 BRITTANEY VILLEDA TAMSULOSIN HCL 0.4MG CAP TAKE ONE CAPSUL E BY MOUTH ONCE A DAY FOR PROSTATE. TAKE AT THE SAME TIME EACH DAY WITH FOOD. 90 August 01 0 [id number] Jun 24, 2019 BRITTANEY VILLEDA TIOTROPIUM 2.5MCG/ACTUAT INHL,ORAL,60D,4GM Active INHALE 2 PUFFS BY ORAL INHALATION ONCE A DAY FOR BREATHING. DON'T USE WITH IPRATROPIUM - REPLACES ADVAIR. 3 Jun 24, 2020 [id number] Jun 24, 2019 BRITTANEY VILLEDA [facility] TIOTROPIUM 2.5MCG/ACTUAT INHL,ORAL,60D,4GM Discontinued INHALE 2 PUFFS BY ORAL INHALATION ONCE A DAY FOR BREATHING. DON'T USE WITH IPRATROPIUM - REPLACES ADVAIR. 3 Oct 13, 2019 [id number] Mar 18, 2019 BRITTANEY VILLEDA [facility] Problems (Conditions): All historical and current Section [...] ent(s) Provider Source Actinic keratosis (SNOMED CT 815308283) Active 702.0 BRITTANEY VILLEDA [facility] Alcohol Dependence * (ICD-9-CM 303.90/303.91) Active 303.90 ALEXANDRA KWONG [facility] Anemia Active 285.9 SATHISH SCOTT [facility] ANGINA PECTORIS NEC/NOS 413.9 Active 413.9 [facility] Anxiety Disorder Active 300.00 AURELIANO LINCOLN MD [facility] Benign Neoplasm Skin Head, Neck, Scalp Active 216.4 RENALDO DACOSTA [facility] CABG Active 799.9 Oct 05, 2006 E ntered By: SATHISH SCOTT Comment: feb, 4-vessel SATHISH SCOTT [facility] Chest discomfort (SNOMED CT 264019450) Active 786.59 BRITTANEY VILLEDA [facility] Chronic airway obstruction, Not Elsewhere Classified Active 496. AURELIANO LINCOLN MD [facility] Chronic Low Back Pain Active 724.2 AURELIANO LINCOLN MD [facility] COPD * (ICD-9-CM 496.) Active 496. SCOTT,J AY J [facility] Coronary Artery Disease * (ICD-9-CM 414.9) Active 414.9 ALEXANDRA KWONG [facility] Coronary Atherosclerosis of [place] Coronary Vessel Active 414.01 August 03, 2010 Entered By: AURELIANO LINCOLN MD Comment: Bypass surgery AURELIANO LINCOLN MD [facility] Disorder of shoulder (SNOMED CT 139836697) Active 719.91 BRITTANEY VILLEDA [facility] Essential Hypertension Active 401.9 AURELIANO LINCOLN MD [facility] Hyperlipidemia Active 272.4 SATHISH SCOTT [facility] HYPERTENSION NOS 401.9 Active 401.9 ALEXANDRA KWONG [facility] Impotence (SNOMED CT 767372498) Active 302.72 BRITTANEY VILLEDAST. 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 AURELIANO LIU MD [facility] Marijuana Dependence unspecified Active 304.30 AURELIANO LINCOLN MD [facility] Microscopic Hematuria (ICD-9-CM 599.72) Active 599.72 [facility] Other and unspecified hyperlipidemia Active 272.4 AURELIANO LINCOLN MD [facility] Other, mixed, or unspecified drug abuse, continuous use Active 30 5.91 Jan 30, 2009 Entered By: SATHISH SCOTT Comment: urine drug screen positive for opitates and marijuannaMay 2009 Entered By: SATHISH SCOTT Comment: buying hydrocodone "off the street" SATHISH SCOTT [facility] Pain in joint involving ankle and foot (ICD-9-CM 719.47) Active 719 .47 SATHISH SCOTT [facility] Papular eruption (SNOMED CT 777652341) Active 709.8 BRITTANEY VILLEDA [facility] Personal History of Noncompliance with M edical Treatment, Presenting Hazards to Active V15.81 SATHISH SCOTT [facility] Tobacco dependence syndrome (SNOMED CT 28637025) Active [id number] July 24, 2009 Entered By: SATHISH SCOTT Comment: one ppd YUMI AVILA [facility] Transient Ischemic Attack * (ICD-9-CM 435.9) Active 435.9 SATHISH SCOTT [facility] ANIETY STAT NOS 300.00 Inactive 300.00 Jan 05, 2005 ALEXANDRA FLOREZ [facility] Bronchitis * (ICD-9-CM 490.) Inactive 490. Jan 05, 2005 BRITTANEY VILLEDA [facility] Postsurgical Aortocoronary Bypass Status (ICD-9-CM V45.81) Inactive V45.81 Oct 05, 2006 SATHISH SCOTT [facility] Radiology Reports: +/- 30 days of the [...] TRENT EXP COSIGNER: URGENCY: STATUS: COMPLETED Department [facility] Yumi Osuna [facility] [address] [place] [address] JUAN MANUEL MARTIN [address] [place] [address], [id number] Jan Dear JUAN MANUEL MARTIN, The purpose of this letter is to inform you of your test results done recently at the [facility],[place], [place]. LABORATORY Comments: Your iron levels and folate level is normal. LILLY Carrillo [facility] RAMY TRENT [facility]
--- OUTSIDE RECORDS SUMMARY | 2019-08-20 00:51 | XMS REPORT | Encounter Summary ---
Author Author Department [facility] Organization Department of [facility] Address [address] [place] [address] Phone Unavailable Care Team Providers Care Vise Hand Name Role Phone BRITTANEY VILLEDA PCP Unavailable [...] PART B Apr 13, 2007 PART B [id number] [phone] JUAN MANUEL MARTIN PATIENT MEDICARE (WNR) MEDICARE (M) PART B Apr 13, 2007 PART B [id number] JUAN MANUEL MARTIN PATIENT MEDICARE (WNR) MEDICARE (M) PART A Sep 10, 2005 PART A [id number] MARTIN,GARY PATIENT MEDICARE (WNR) MEDICARE (M) PART A Sep 10, 2005 PART A [id number] [phone] JUAN MANUEL MARTIN PATIENT MEDICARE (WNR) MEDICARE (M) PART A Sep 10, 2005 PART A [id number] [phone] VERONICAJUAN MANUEL PATIENT Selected Encounter This section [...] Hematology Lab R [place] with [place] for [place] patient. Radiology Reports and Pathology [...] and tobacco- related health factors from the [place] facility where the Encounter took place. Current Smoking Status This section includes the most current smoking, or tobacco -related health factor, from the [place] facility where the Encounter took place. Date/Time Current Smoking Status Comment Facility Jan 02, 2019 08:20 AM NON-TOBACCO USER KO [facility] Tobacco Use History This section includes a history of the smoking, or tobacco -related health factors, that were collected on or before the date of the Encoun ter. The data comes from the [place] facility where the Encounter took place. Date/Time [...] 02, 2018 ADVANCE DIRECTIVE DISCUSSION FLO KRUEGER [facility] Oct 17, 2000 ADVANCE DIRECTIVE EUNICE RODRIGUEZ [facility], [place]ISN 15 Allergies [...] Type Reaction(s) Severity Source No Known Allergies [facility] No Allergy Assessment on File [facility] Medications: [place] dispensed (-15 [...] A DAY NEEDED 180 Jan 09, 2020 [id number] Apr 10, 2019 MAK VILLEDA CBTERRENCE ALBUTEROL SO4 0.083% INHL,3ML Discontinued USE 3 MLS IN NEBULIZER FOR INHALATION TWO TIMES A DAY NEEDED 180 Jan 27, 2019 [id number] Nov 01, 2018 BRITTANEY VENEGAS ALBUTEROL SO4 90MCG/ACTUAT (CFC-F) INHL,ORAL,6.7GM Active INHALE 2 PUFFS BY ORAL INHALATION TWO TIMES A DAY NEEDED - RINSE MOUTHPIECE FREQUENTLY TO PREVENT CLOGGING 2 Aug 30, 2019 [id number] Mar 18, 2019 BRITTANEY VILLEDA ALBUTEROL SO4 90MCG/ACTUAT (CFC-F) INHL,ORAL,6.7GM Discontin ued INHALE 2 PUFFS BY ORAL INHALATION TWO TIMES A DAY NEEDED - RINSE MOUTHPIECE FREQUENTLY TO PREVENT CLOGGING 2 Mar 27, 2019 [id number] Aug 30, 2018 BRITTANEY VILLEDA CBTERRENCE BUDESONIDE 80MCG/FORMOTEROL FUM 4.5MCG/SPRAY INHL,ORAL,10.2G M Active INHALE 2 PUFFS BY ORAL INHALATION TWO TIMES A DAY FOR BREATHING. SHAKE WELL. RINSE MOUTH AND SPIT AFTER EACH USE. 3 Jun 24, 2020 [id number] Jun 24, 2019 BRITTANEY VILLEDA BUDESONIDE 80MCG/FORMOTEROL FUM 4.5MCG/SPRAY INHL,ORAL,10.2G M Discontinued INHALE 2 PUFFS BY ORAL INHALATION TWO TIMES A DAY FOR BREATHING. SHAKE WELL. RINSE MOUTH AND SPIT AFTER EACH USE. 3 Dec 07, 2019 [id number] Mar 18, 2019 BRITTANEY VILLEDA FERROUS SO4 324MG TAB,EC Active TAKE ONE TABLET BY MOUTH TWO TIMES A DAY FOR IRON SUPPLEMENTATION. MAY TAKE WITH FOOD IF NOT TOLERATED ON EMPTY STOMACH 200 Jan 09, 2020 [id number] Apr 23, 2019 BRITTANEY VILLEDA FERROUS SO4 324MG TAB,EC Discontinued TAKE ONE TABLET BY MOUTH TWO TIMES A DAY FOR IRON SUPPLEMENTATION. MAY TAKE WITH FOOD IF NOT TOLERATED ON EMPTY STOMACH 200 May 02, 2019 [id number] Nov 14, 2018 BRITTANEY VILLEDA C FOLIC ACID 1MG TAB Active TAKE ONE TABLET BY MOUTH ONCE A DAY 90 Nov 22, 2019 [id number] Mar 18, 2019 BRITTANEY VILLEDA FOLIC ACID 1MG TAB Discontinued TAKE ONE TABLET BY MOUTH ONCE A DAY 90 May 02, 2019 [id number] Sep 26, 2018 BRITTANEY VILLEDA GABAPENTIN 300MG CAP Discontinued TAKE 2 CAPSULES BY MOUTH FOUR TITO ES A DAY 720 Jan 27, 2019 [id number] Nov 14, 2018 BRITTANEY VILLEDA GABAPENTIN 400MG CAP Active TAKE 1 CAPSULE BY MOUTH THREE TITO ES A DAY 270 Dec 07, 2019 [id number] Mar 18, 2019 BRITTANEY VILLEDA HYDROCODONE 10MG/ACETAMINOPHEN 325MG TAB Non-VA TAKE ONE TABLET BY MOUTH FOUR TIMES A DAY Non-VA Documented by: RAMY TRENT nted at: STEFANI SPAIN LISINOPRIL 10MG TAB Discontinued TAKE ONE-HALF TABLET BY MOUTH EVERY MORNING FOR HEART OR HIGH BLOOD PRESSURE 15 Jun 01, 2019 [id number] Jun 02, 2018 BRITTANEY VILLEDA LOSARTAN 25MG TAB Active TAKE ONE TABLET BY MOUTH ONCE A DAY FOR BLOOD PRESSURE 90 Jan 09, 2020 [id number] Apr 23, 2019 BRITTANEY VILLEDA C LOSARTAN 25MG TAB Discontinued TAKE ONE TABLET BY M OUTH ONCE A DAY FOR BLOOD PRESSURE 90 July 13, 2019 [id number] Nov 14, 2018 TIERRA KWONG [facility] MELOXICAM 15MG TAB TAKE ONE TABLET BY M OUTH ONCE A DAY FOR PAIN OR INFLAMMATION. 90 Jun 01, 2019 [id number] Mar 18, 2019 BRITTANEY VILLEDA METOPROLOL TARTRATE 25MG TAB Active TAKE ONE-SMITH LF TABLET BY MOUTH TWO TIMES A DAY FOR HEART/BLOOD PRESSURE. TAKE WITH OR IMMEDIATELY FOLLOWING FOOD. 90 Jan 09, 2020 [id number] Apr 23, 2019 BRITTANEY VILLEDA METOPROLOL TARTRATE 25MG TAB Discontinued TAKE ONE-SMITH LF TABLET BY MOUTH TWO TIMES A DAY FOR HEART/BLOOD PRESSURE. TAKE WITH OR IMMEDIATELY FOLLOWING FOOD. July 13, 2019 [id number] Nov 14, 2018 [facility] SIMVA[facility]IN 40MG TAB Active TAKE ONE-HALF TABLE T BY MOUTH AT BEDTIME FOR CHOLESTEROL - REPORT ANY UNEXPLAINED MUSCLE PAIN OR WEAKNESS TO YOUR PROVIDER 45 Sep 27, 2019 [id number] Jun 24, 2019 BRITTANEY VILLEDA C SIMVASTATIN 40MG TAB Discontinued TAKE ONE-HALF TABLE T BY MOUTH AT BEDTIME FOR CHOLESTEROL - REPORT ANY UNEXPLAINED MUSCLE PAIN OR WEAKNESS TO YOUR PROVIDER 45 Sep 23, 2018 [id number] Jul 05, 2018 BRITTANEY VILLEDA C TAMSULOSIN HCL 0.4MG CAP Discontinued TAKE ONE CAPSUL E BY MOUTH ONCE A DAY FOR PROSTATE. TAKE AT THE SAME TIME EACH DAY WITH FOOD. 90 Jun 17 9 [id number] Jun 14, 2018 BRITTANEY VILLEDA TAMSULOSIN HCL 0.4MG CAP TAKE ONE CAPSUL E BY MOUTH ONCE A DAY FOR PROSTATE. TAKE AT THE SAME TIME EACH DAY WITH FOOD. 90 August 01 0 [id number] Jun 24, 2019 BRITTANEY VILLEDA TIOTROPIUM 2.5MCG/ACTUAT INHL,ORAL,60D,4GM Active INHALE 2 PUFFS BY ORAL INHALATION ONCE A DAY FOR BREATHING. DON'T USE WITH IPRATROPIUM - REPLACES ADVAIR. 3 Jun 24, 2020 [id number] Jun 24, 2019 BRITTANEY VILLEDA [facility] TIOTROPIUM 2.5MCG/ACTUAT INHL,ORAL,60D,4GM Discontinued INHALE 2 PUFFS BY ORAL INHALATION ONCE A DAY FOR BREATHING. DON'T USE WITH IPRATROPIUM - REPLACES ADVAIR. 3 Oct 13, 2019 [id number] Mar 18, 2019 BRITTANEY VILLEDA [facility] Problems (Conditions): All historical and current Section Date Range: From patient's date of to the date document was create d. This section includes a list of Problems (Conditions) know n to [place] for the patient. It includes both active and inacti ve problems (conditions). The data comes from all [place] treatment facilities. Problem Status Problem Code Date of Onset Date of Resolution Comm ent(s) Provider Source Actinic keratosis (SNOMED CT 053873018) Active 702.0 BRITTANEY VILLEDA [facility] Alcohol Dependence * (ICD-9-CM 303.90/303.91) Active 303.90 ALEXANDRA KWONG [facility] Anemia Active 285.9 SATHISH SCOTT [facility] ANGINA PECTORIS NEC/NOS 413.9 Active 413.9 [facility] Anxiety Disorder Active 300.00 AURELIANO LINCOLN MD [facility] Benign Neoplasm Skin Head, Neck, Scalp Active 216.4 RENALDO DACOSTA [facility] CABG Active 799.9 Oct 05, 2006 E ntered By: SATHISH SCOTT Comment: feb, 4-vessel SATHISH SCOTT [facility] Chest discomfort (SNOMED CT 508743913) Active 786.59 BRITTANEY VILLEDA [facility] Chronic airway obstruction, Not Elsewhere Classified Active 496. AURELIANO LINCOLN MD [facility] Chronic Low Back Pain Active 724.2 AURELIANO LINCOLN MD [facility] COPD * (ICD-9-CM 496.) Active 496. SCOTT,J [facility] J [facility] Coronary Artery Disease * (ICD-9-CM 414.9) Active 414.[address] [facility] Coronary Atherosclerosis of [place] Coronary Vessel Active 414.01 August 03, 2010 Entered By: AURELIANO LINCOLN MD Comment: Bypass surgery AURELIANO LINCOLN MD [facility] Disorder of shoulder (SNOMED CT 825722746) Active 719.91 BRITTANEY VILLEDA [facility] Essential Hypertension Active 401.9 AURELIANO LINCOLN MD [facility] Hyperlipidemia Active 272.4 SATHISH SCOTT [facility] HYPERTENSION NOS 401.9 Active 401.[address] 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 AURELIANO LIU MD [facility] Marijuana Dependence unspecified Active 304.30 AURELIANO LINCOLN MD [facility] Microscopic Hematuria (ICD-9-CM 599.72) Active 599.72 [facility] Other and unspecified hyperlipidemia Active 272.4 AURELIANO LINCOLN MD [facility] Other, mixed, or unspecified drug abuse, continuous use Active 30 5.91 Jan 30, 2009 Entered By: SATHISH SCOTT Comment: urine drug screen positive for opitates and marijuannaMay 2009 Entered By: SATHISH SCOTT Comment: buying hydrocodone "off the street" SATHISH SCOTT [facility] Pain in joint involving ankle and foot (ICD-9-CM 719.47) Active 719 .47 SATHISH SCOTT [facility] Papular eruption (SNOMED CT 787144216) Active 709.8 BRITTANEY VILLEDA [facility] Personal History of Noncompliance with M edical Treatment, Presenting Hazards to Active V15.81 SATHISH SCOTT [facility] Tobacco dependence syndrome (SNOMED CT 10681798) Active [id number] July 24, 2009 Entered By: SATHISH SCOTT Comment: one ppd AUSTINYUMI Aleta YUMI Osuna [facility] Transient Ischemic Attack * (ICD-9-CM 435.9) Active 435.9 SATHISH SCOTT [facility] ANIETY STAT NOS 300.00 Inactive 300.00 Jan 05, 2005 [facility]LEXANDRA FLOREZ [facility] Bronchitis * (ICD-9-CM 490.) Inactive 490. Jan 05, 2005 BRITTANEY VILLEDA [facility] Postsurgical Aortocoronary Bypass Status (ICD-9-CM V45.81) Inactive V45.81 Oct 05, 2006 SATHISH SCOTT Can [facility] Radiology Reports: +/- 30 days of the encounter No Data Provided for This Section Pathology Reports: +/- 30 days of the encounter No Data Provided for This Section Encounter Notes: All associated encounter notes This section contains the clinical notes associated to the Encounter. Date/Time Encounter Note(s) Provider Source Feb 11, 2019 11:36 AM ADMINISTRATIVE NOTE: LOCAL TITLE: [place] STANDARD TITLE: ADMINISTRATIVE NOTE DATE OF NOTE: FEB 11, 2019@11:36 ENTRY DATE: FEB 11, 2019@11:36:18 AUTHOR: DARCY WEN EXP COSIGNER: URGENCY: STATUS: COMPLETED [facility] Administrative Note: RECORDS RECEIVED TODAY by: Fax Nature of report:History & Physical/Operation report Date(s) of record(s):01/28/2019 & 02/01/2019 Sending libertarian:[facility]/Brittaney Cody MD FACS /es/ DARCY KO Signed: 02/11/2019 11:37 DARCY WEN OC
--- OUTSIDE RECORDS SUMMARY | 2019-08-20 00:51 | XMS REPORT | Encounter Summary ---
Author Author Department [facility] Organization Department of [facility] Address [address] [place] [phone] Phone Unavailable Care Team Providers Care Butt Maker Name Role Phone BRITTANEY VILLEDA PCP Unavailable [...] PART B Apr 13, 2007 PART B [id number] [phone] JUAN MANUEL MARTIN PATIENT MEDICARE (WNR) MEDICARE (M) PART B Apr 13, 2007 PART B [id number] JUAN MANUEL MARTIN PATIENT MEDICARE (WNR) MEDICARE (M) PART A Sep 10, 2005 PART A [id number] JUAN MANUEL MARTIN PATIENT MEDICARE (WNR) MEDICARE (M) PART A Sep 10, 2005 PART A [id number] [phone] JUAN MANUEL MARTIN PATIENT MEDICARE (WNR) MEDICARE (M) PART A Sep 10, 2005 PART A [id number] MARTIN,GARY PATIENT Selected Encounter This section includes the [...] and tobacco- related health factors from the [place] facility where the Encounter took place. Current Smoking Status This section includes the most current smoking, or tobacco -related health factor, from the [place] facility where the Encounter took place. Date/Time Current Smoking Status Comment Facility Jan 02, 2019 08:20 AM NON-TOBACCO USER [facility] Tobacco Use History This section includes a history of the smoking, or tobacco -related health factors, that were collected on or before the date of the Encoun ter. The data comes from the [place] facility where the Encounter took place. Date/Time Smoking Status/Tobacco Use Comment Leanna barbosa May 28, 2018 11:45 AM VA-TOBACCO FORMER USER [facility] May 28, 2018 11:45 AM VA-TOBACCO QUIT 15 YRS OR MORE JEVON NS [facility] Dec 25, 2017 02:23 PM NON-TOBACCO USER KO CB Jan 25, 2017 09:53 AM NON-TOBACCO USER KO CB Dec 22, 2015 09:45 AM NON-TOBACCO USER KO [facility] Advance Directives: All historical and current Section [...] 02, 2018 ADVANCE DIRECTIVE DISCUSSION FLO KRUEGER [facility] Oct 17, 2000 ADVANCE DIRECTIVE EUNICE ORDRIGUEZ [facility], [facility] 15 Allergies and Adverse Reactions [...] Type Reaction(s) Severity Source No Known Allergies [facility] No Allergy Assessment on File [facility] Medications: [facility] dispensed (-15 [...] available).Discontinued = A prescription stopped by a [place] provider. It is no longer available to [...] A DAY NEEDED 180 Jan 09, 2020 [id number] Apr 10, 2019 MAK VILLEDA [facility] ALBUTEROL SO4 0.083% INHL,3ML Discontinued USE 3 MLS IN NEBULIZER FOR INHALATION TWO TIMES A DAY NEEDED 180 Jan 27, 2019 [id number] Nov 01, 2018 BRITTANEY VENEGAS [facility] ALBUTEROL SO4 90MCG/ACTUAT (CFC-F) INHL,ORAL,6.7GM Active INHALE 2 PUFFS BY ORAL INHALATION TWO TIMES A DAY NEEDED - RINSE MOUTHPIECE FREQUENTLY TO PREVENT CLOGGING 2 Aug 30, 2019 [id number] Mar 18, 2019 BRITTANEY VILLEDA CBTERRENCE ALBUTEROL SO4 90MCG/ACTUAT (CFC-F) INHL,ORAL,6.7GM Discontin ued INHALE 2 PUFFS BY ORAL INHALATION TWO TIMES A DAY NEEDED - RINSE MOUTHPIECE FREQUENTLY TO PREVENT CLOGGING 2 Mar 27, 2019 [id number] Aug 30, 2018 BRITTANEY VILLEDA BUDESONIDE 80MCG/FORMOTEROL FUM 4.5MCG/SPRAY INHL,ORAL,10.2G M Active INHALE 2 PUFFS BY ORAL INHALATION TWO TIMES A DAY FOR BREATHING. SHAKE WELL. RINSE MOUTH AND SPIT AFTER EACH USE. 3 Jun 24, 2020 [id number] Jun 24, 2019 BRITTANEY VILLEDA BUDESONIDE 80MCG/FORMOTEROL FUM 4.5MCG/SPRAY INHL,ORAL,10.2G M Discontinued INHALE 2 PUFFS BY ORAL INHALATION TWO TIMES A DAY FOR BREATHING. SHAKE WELL. RINSE MOUTH AND SPIT AFTER EACH USE. 3 Dec 07, 2019 [id number] Mar 18, 2019 BRITTANEY VILLEDA FERROUS SO4 324MG TAB,EC Active TAKE ONE TABLET BY MOUTH TWO TIMES A DAY FOR IRON SUPPLEMENTATION. MAY TAKE WITH FOOD IF NOT TOLERATED ON EMPTY STOMACH 200 Jan 09, 2020 [id number] Apr 23, 2019 BRITTANEY VILLEDA FERROUS SO4 324MG TAB,EC Discontinued TAKE ONE TABLET BY MOUTH TWO TIMES A DAY FOR IRON SUPPLEMENTATION. MAY TAKE WITH FOOD IF NOT TOLERATED ON EMPTY STOMACH 200 May 02, 2019 [id number] Nov 14, 2018 BRITTANEY VILLEDA C FOLIC ACID 1MG TAB Active TAKE ONE TABLET BY MOUTH ONCE A DAY 90 Nov 22, 2019 [id number] Mar 18, 2019 BRITTANEY VILLEDA FOLIC ACID 1MG TAB Discontinued TAKE ONE TABLET BY MOUTH ONCE A DAY 90 May 02, 2019 [id number] Sep 26, 2018 BRITTANEY VILLEDA GABAPENTIN 300MG CAP Discontinued TAKE 2 CAPSULES BY MOUTH FOUR TITO ES A DAY 720 Jan 27, 2019 [id number] Nov 14, 2018 BRITTANEY VILLEDA GABAPENTIN 400MG CAP Active TAKE 1 CAPSULE BY MOUTH THREE TITO ES A DAY 270 Dec 07, 2019 [id number] Mar 18, 2019 BRITTANEY VILLEDA HYDROCODONE 10MG/ACETAMINOPHEN 325MG TAB Non-VA TAKE ONE TABLET BY MOUTH FOUR TIMES A DAY Non-VA Documented by: RAMY TRENT nted at: STEFANI SPAIN LISINOPRIL 10MG TAB Discontinued TAKE ONE-HALF TABLET BY MOUTH EVERY MORNING FOR HEART OR HIGH BLOOD PRESSURE 15 Jun 01, 2019 [id number] Jun 02, 2018 BRITTANEY VILLEDA [facility] [place]ARTAN 25MG TAB Active TAKE ONE TABLET BY MOUTH ONCE A DAY FOR BLOOD PRESSURE 90 Jan 09, 2020 [id number] Apr 23, 2019 BRITTANEY VILLEDA C LOSARTAN 25MG TAB Discontinued TAKE ONE TABLET BY M OUTH ONCE A DAY FOR BLOOD PRESSURE 90 July 13, 2019 [id number] Nov 14, 2018 TIERRA KWONG Can [facility] MELOXICAM 15MG TAB TAKE ONE TABLET BY M OUTH ONCE A DAY FOR PAIN OR INFLAMMATION. 90 Jun 01, 2019 [id number] Mar 18, 2019 BRITTANEY VILLEDA METOPROLOL TARTRATE 25MG TAB Active TAKE ONE-SMITH LF TABLET BY MOUTH TWO TIMES A DAY FOR HEART/BLOOD PRESSURE. TAKE WITH OR IMMEDIATELY FOLLOWING FOOD. 90 Jan 09, 2020 [id number] Apr 23, 2019 BRITTANEY VILLEDA METOPROLOL TARTRATE 25MG TAB Discontinued TAKE ONE-SMITH LF TABLET BY MOUTH TWO TIMES A DAY FOR HEART/BLOOD PRESSURE. TAKE WITH OR IMMEDIATELY FOLLOWING FOOD. 90 July 13, 2019 [id number] Nov 14, 2018 [facility] KW[facility] SIMVASTATIN 40MG TAB Active TAKE ONE-HALF TABLE T BY MOUTH AT BEDTIME FOR CHOLESTEROL - REPORT ANY UNEXPLAINED MUSCLE PAIN OR WEAKNESS TO YOUR PROVIDER 45 Sep 27, 2019 [id number] Jun 24, 2019 BRITTANEY VILLEDA C SIMVASTATIN 40MG TAB Discontinued TAKE ONE-HALF TABLE T BY MOUTH AT BEDTIME FOR CHOLESTEROL - REPORT ANY UNEXPLAINED MUSCLE PAIN OR WEAKNESS TO YOUR PROVIDER 45 Sep 23, 2018 [id number] Jul 05, 2018 BRITTANEY VILLEDA C TAMSULOSIN HCL 0.4MG CAP Discontinued TAKE ONE CAPSUL E BY MOUTH ONCE A DAY FOR PROSTATE. TAKE AT THE SAME TIME EACH DAY WITH FOOD. Jun 17 9 [id number] Jun 14, 2018 BRITTANEY VILLEDA TAMSULOSIN HCL 0.4MG CAP TAKE ONE CAPSUL E BY MOUTH ONCE A DAY FOR PROSTATE. TAKE AT THE SAME TIME EACH DAY WITH FOOD. August 01 0 [id number] Jun 24, 2019 BRITTANEY VILLEDA TIOTROPIUM 2.5MCG/ACTUAT INHL,ORAL,60D,4GM Active INHALE 2 PUFFS BY ORAL INHALATION ONCE A DAY FOR BREATHING. DON'T USE WITH IPRATROPIUM - REPLACES ADVAIR. 3 Jun 24, 2020 [id number] Jun 24, 2019 BRITTANEY VILLEDA ONS CB TIOTROPIUM 2.5MCG/ACTUAT INHL,ORAL,60D,4GM Discontinued INHALE 2 PUFFS BY ORAL INHALATION ONCE A DAY FOR BREATHING. DON'T USE WITH IPRATROPIUM - REPLACES ADVAIR. 3 Oct 13, 2019 [id number] Mar 18, 2019 BRITTANEY VILLEDA ONS CBOC [...] ent(s) Provider Source Actinic keratosis (SNOMED CT 323317815) Active 702.0 BRITTANEY VILLEDA [facility] Alcohol Dependence * (ICD-9-CM 303.90/303.91) Active 303.90 ALEXANDRA KWONG [facility] Anemia Active 285.9 SATHISH SCOTT [facility] ANGINA PECTORIS NEC/NOS 413.9 Active 413.9 W ALEXANDRA DE JESUS [facility] Anxiety Disorder Active 300.00 AURELIANO LINCOLN MD [facility] Benign Neoplasm Skin Head, Neck, Scalp Active 216.4 RENALDO DACOSTA [facility] CABG Active 799.9 Oct 05, 2006 E ntered By: SATHISH SCOTT Comment: feb, 4-vessel [facility]ATHISH SCOTT [facility] Chest discomfort (SNOMED CT 923637000) Active 786.59 BRITTANEY VILLEDA [facility] Chronic airway obstruction, Not Elsewhere Classified Active 496. AURELIANO LINCOLN MD [facility] Chronic Low Back Pain Active 724.2 AURELIANO LINCOLN MD [facility] COPD * (ICD-9-CM 496.) Active 496. Robin SCOTT [facility] Coronary Artery Disease * (ICD-9-CM 414.9) Active 414.9 ALEXANDRA KWONG [facility] Coronary Atherosclerosis of [place] Coronary Vessel Active 414.01 August 03, 2010 Entered By: AURELIANO LINCOLN MD Comment: Bypass surgery AURELIANO LINCOLN MD [facility] Disorder of shoulder (SNOMED CT 267466539) Active 719.91 BRITTANEY VILLEDA [facility] Essential Hypertension Active 401.9 AURELIANO LINCOLN MD [facility] Hyperlipidemia Active 272.4 SATHISH SCOTT [facility] HYPERTENSION NOS 401.9 Active 401.9 ALEXANDRA KWONG Can [facility] Impotence (SNOMED CT 938826065) Active 302.72 BRITTANEY VILLEDA [facility] 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 AURELIANO LIU MD [facility] Marijuana Dependence unspecified Active 304.30 AURELIANO LINCOLN MD [facility] Microscopic Hematuria (ICD-9-CM 599.72) Active 599.72 [facility] Other and unspecified hyperlipidemia Active 272.4 AURELIANO LINCOLN MD [facility] Other, mixed, or unspecified drug abuse, continuous use Active 30 5.91 Jan 30, 2009 Entered By: SATHISH SCOTT Comment: urine drug screen positive for opitates and marijuannaMay 2009 Entered By: SATHISH SCOTT Comment: buying hydrocodone "off the street" SATHISH SCOTT [facility] Pain in joint involving ankle and foot (ICD-9-CM 719.47) Active 719 .47 SATHISH SCOTT [facility] Papular eruption (SNOMED CT 817667485) Active 709.8 BRITTANEY VILLEDA [facility] Personal History of Noncompliance with M edical Treatment, Presenting Hazards to Active V15.81 SATHISH SCOTT [facility] Tobacco dependence syndrome (SNOMED CT 29012413) Active [id number] July 24, 2009 Entered By: SATHISH SCOTT Comment: one ppd AVILA,YUMI H YUMI [facility] Transient Ischemic Attack * (ICD-9-CM 435.9) Active 435.9 SATHISH SCOTT [facility] ANIETY STAT NOS 300.00 Inactive 300.00 Jan 05, 2005 ALEXANDRA FLOREZ [facility] Bronchitis * (ICD-9-CM 490.) Inactive 490. Jan 05, 2005 [facility] Postsurgical Aortocoronary Bypass Status (ICD-9-CM V45.81) Inactive V45.81 Oct 05, 2006 SATHISH SCOTT [facility] Radiology Reports: +/- 30 days of the encounter No Data Provided for This Section Pathology Reports: +/- 30 days of the encounter No Data Provided for This Section Encounter Notes: All associated encounter notes This section contains the clinical notes associated to the Encounter. Date/Time Encounter Note(s) Provider Source Feb 08, 2019 10:44 AM ADMINISTRATIVE NOTE: LOCAL TITLE: IN-ADMINISTRATIVE NOTE (BP,O) STANDARD TITLE: ADMINISTRATIVE NOTE DATE OF NOTE: FEB 08, 2019@10:44 ENTRY DATE: FEB 08, 2019@10:44:06 AUTHOR: BRITTANEY VILLEDA EXP COSIGNER: URGENCY: STATUS: COMPLETED reviewed recent lab- lab done for GI clinic prior to colonoscopy is normal, please call or send letter, thank you /nuno/ BRITTANEY VILLEDA [facility] Signed: 02/08/2019 10:45 Receipt Acknowledged By: * AWAITING SIGNATURE * RAMY TRENT [facility]HAEL [facility]
--- OUTSIDE RECORDS SUMMARY | 2019-08-20 00:51 | XMS REPORT | Continuity of Care Document ---
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 It does not include entries that were removed or entered in error. Problem Status Onset Date Problem Type Date of Resolution Comments Source Actinic keratosis (SNOMED CT 164917444) Active Condition [facility] Alcohol Dependence * (ICD-9-CM 303.90/303.91) Active Condition [facility] Anemia Active Condition [facility] ANGINA PECTORIS NEC/NOS 413.9 Active Condition [facility] Anxiety Disorder Active Condition [facility] Benign Neoplasm Skin Head, Neck, Scalp Active Condition [facility] CABG Active Condition Oct 05, 2006 Entered By: SATHISH SCOTT Comment: feb, 4-vessel [facility] Chest discomfort (SNOMED CT 477379307) Active Condition [facility] Chronic airway obstruction, Not Elsewhere Classified Active Condition [facility] Chronic Low Back Pain Active Condition [facility] COPD * (ICD-9-CM 496.) Active Condition [facility] Coronary Artery Disease * (ICD-9-CM 414.9) Active Condition [facility] Coronary Atherosclerosis of [place] Coronary Vessel Active Condition August 03, 2010 Entered By: AURELIANO LINCOLN MD Comment: Bypass surgery [facility] Disorder of shoulder (SNOMED CT 536434192) Active Condition [facility] Essential Hypertension Active Condition [facility] Hyperlipidemia Active Condition [facility] HYPERTENSION NOS 401.9 Active Condition [facility] Impotence (SNOMED CT 346983403) Active Condition [facility] Impotence of organic origin Active Condition [facility] Marijuana Dependence unspecified Active Condition [facility] Microscopic Hematuria (ICD-9-CM 599.72) Active Condition [facility] Other and unspecified hyperlipidemia Active Condition [facility] Other, mixed, or unspecified drug abuse, continuous us e Active Condition Jan 30, 2009 Entered By: SATHISH SCOTT Comment: urine drug screen positive for opitates and marijuanna July 24, 2009 Entered By: SATHISH SCOTT Comment: buying hydrocodone "off the street" [facility] Pain in joint involving ankle and foot (ICD-9-CM 719.4 7) Active Condition [facility] Papular eruption (SNOMED CT 300644418) Active Condition [facility] Personal History of Noncompliance with M edical Treatment, Presenting Hazards to Active Condition [facility] Tobacco dependence syndrome (SNOMED CT 09163583) Active Condition July 24, 2009 Entered By: SATHISH SOCTT Comment: one ppd [facility] Transient Ischemic Attack * (ICD-9-CM 435.9) Active Condition [facility] ANIETY STAT NOS 300.00 Inactive Condition 01/05/2005 [facility] Bronchitis * (ICD-9-CM 490.) Inactive Condition 01/05/2005 [facility] Postsurgical Aortocoronary Bypass Status (ICD-9-CM V45 .81) Inactive Condition 10/05/2006 [facility] ICD-10-CM I10. Essential (primary) hyper tension with [...] TWO TIMES A DAY NEEDED ACTIVE 12/12 [id number] 04/10/2019 BRITTANEY VILLEDA 01/20/2019 STEFANI SPAIN ALBUTEROL SO4 0.083% INHL,3ML USE 3 MLS IN NEBULIZER FOR INHALATION TWO TIMES A DAY NEEDED DISCONTINUE 01/27/2019 [id number] 11/01/2018 BRITTANEY VILLEDA 01/28/2018 STEFANI SPAIN ALBUTEROL SO4 90MCG/ACTUAT (CFC-F) INHL,ORAL,6.7GM INHALE 2 PUFFS BY ORAL INHALATION TWO TIMES A DAY NEEDED - RINSE MOUTHPIECE FREQUENTLY TO PREVENT CLOGGING ACTIVE 08/30/2019 [id number] 03/18/2019 BRITTANEY VILLEDA 11/28/2018 STEFANI SPAIN ALBUTEROL SO4 90MCG/ACTUAT (CFC-F) INHL,ORAL,6.7GM INHALE 2 PUFFS BY ORAL INHALATION TWO TIMES A DAY NEEDED - RINSE MOUTHPIECE FREQUENTLY TO PREVENT CLOGGING DISCONTINUE 03/27/2019 [id number] 08/30/2018 BRITTANEY VILLEDA 06/11/2018 STEFANI SPAIN BUDESONIDE 80MCG/FORMOTEROL FUM 4.5MCG/S PRAY INHL,ORAL,10.2GM INHALE 2 PUFFS BY ORAL INHALATION TWO TI MES A DAY FOR BREATHING. SHAKE WELL. RINSE MOUTH AND SPIT AFTER EACH USE. ACTIVE 06/11 [id number] 06/24/2019 BRITTANEY VILLEDA 06/24/2019 [facility] BUDESONIDE 80MCG/FORMOTEROL FUM 4.5MCG/S PRAY INHL,ORAL,10.2GM INHALE 2 PUFFS BY ORAL INHALATION TWO TI MES A DAY FOR BREATHING. SHAKE WELL. RINSE MOUTH AND SPIT AFTER EACH USE. DISCONTINUE 12/07/2019 [id number] 03/18/2019 BRITTANEY VILLEDA 12/11/2018 STEFANI SPAIN FERROUS SO4 324MG TAB,EC TAKE ONE TABLET BY MOUTH TWO TIMES A DAY FOR IRON SUPPLEMENTATION. MAY TAKE WITH FOOD IF NOT TOLERATED ON EMPTY STOMACH ACTIVE 01/09/2020 [id number] 04/23/2019 BRITTANEY VILLEDA 02/02/2019 [facility] FERROUS SO4 324MG TAB,EC TAKE ONE TABLET BY MOUTH TWO TIMES A DAY FOR IRON SUPPLEMENTATION. MAY TAKE WITH FOOD IF NOT TOLERATED ON EMPTY STOMACH DISCONTINUE 05/02/2019 [id number] 11/14/2018 BRITTANEY VILLEDA 05/06/2018 [facility] FOLIC ACID 1MG TAB TAKE ONE TA BLET BY MOUTH ONCE A DAY ACTIVE 11/22/2019 [id number] 03/18/2019 BRITTANEY VILLEDA 12/15/2018 [facility] FOLIC ACID 1MG TAB TAKE ONE TA BLET BY MOUTH ONCE A DAY DISCONTINUE 05/02/2019 [id number] 09/26/2018 BRITTANEY VILLEDA 05/06/2018 [facility] GABAPENTIN 300MG CAP TAKE 2 CA PSULES BY MOUTH FOUR TIMES A DAY DISCONTINUED 01/27/2019 [id number] 11/14/2018 BRITTANEY VILLEDA 01/28/2018 [facility] GABAPENTIN 400MG CAP TAKE 1 CA PSULE BY MOUTH THREE TIMES A DAY ACTIVE 12/07/2019 [id number] 03/18/2019 BRITTANEY VILLEDA 12/11/2018 [facility] HYDROCODONE 10MG/ACETAMINOPHEN 325MG TAB TAKE ONE TABLET BY MOUTH FOUR TIMES A DAY ACTIVE OSTERAMY DON S 09/30/2013 [facility] LISINOPRIL 10MG TAB TAKE ONE-H LONG-TERM TABLET BY MOUTH EVERY MORNING FOR HEART OR HIGH BLOOD PRESSURE DISCONTINUED 06/01/2019 [id number] 06/02/2018 BRITTANEY VILLEDA 06/02/2018 [facility] LOSARTAN 25MG TAB TAKE ONE TAB LET BY MOUTH ONCE A DAY FOR BLOOD PRESSURE ACTIVE 01/09/2020 [id number] 04/23/2019 BRITTANEY VILLEDA 02/02/2019 [facility] LOSARTAN 25MG TAB TAKE ONE TAB LET BY MOUTH ONCE A DAY FOR BLOOD PRESSURE DISCONTINUE 07/13/2019 [id number] 11/14/2018 TIERRA KWONG 07/13/2018 [facility] MELOXICAM 15MG TAB TAKE ONE TA BLET BY MOUTH ONCE A DAY FOR PAIN OR INFLAMMATION. 06/01/2019 [id number] 03/18/2019 BRITTANEY VILLEDA 06/02/2018 [facility] METOPROLOL TARTRATE 25MG TAB T CRESENCIO ONE-HALF TABLET BY MOUTH TWO TIMES A DAY FOR HEART/BLOOD PRESSURE. TAKE WITH OR IMMEDIATELY FOLLOWING FOOD. ACTIVE 01/09/2020 [id number] 04/23/2019 BRITTANEY VILLEDA 02/02/2019 STEFANI SPAIN METOPROLOL TARTRATE 25MG TAB T CRESENCIO ONE-HALF TABLET BY MOUTH TWO TIMES A DAY FOR HEART/BLOOD PRESSURE. TAKE WITH OR IMMEDIATELY FOLLOWING FOOD. DISCONTINUE 07/13/2019 [id number] 11/14/2018 TIERRA KWONG 07/13/2018 YUM[facility] SIMVASTATIN 40MG TAB TAKE ONE- HALF TABLET BY MOUTH AT BEDTIME FOR CHOLESTEROL - REPORT ANY UNEXPLAINED MUSCLE PAIN OR WEAKNESS TO YOUR PROVIDER ACTIVE 09/27/2019 [id number] 06/24/2019 BRITTANEY VILLEDA 09/26/2018 STEFANI SPAIN SIMVASTATIN 40MG TAB TAKE ONE- HALF TABLET BY MOUTH AT BEDTIME FOR CHOLESTEROL - REPORT ANY UNEXPLAINED MUSCLE PAIN OR WEAKNESS TO YOUR PROVIDER DISCONTINUE 09/23/2018 [id number] 07/05/2018 BRITTANEY VILLEDA 10/07/2017 STEFANI SPAIN TAMSULOSIN HCL 0.4MG CAP TAKE ONE CAPSULE BY MOUTH ONCE A DAY FOR PROSTATE. TAKE AT THE SAME TIME EACH DAY WITH FOOD. DISCONTINUE 06/17/2018 [id number] 06/14/2018 BRITTANEY VILLEDA 08/19/2017 STEFANI SPAIN TAMSULOSIN HCL 0.4MG CAP TAKE ONE CAPSULE BY MOUTH ONCE A DAY FOR PROSTATE. TAKE AT THE SAME TIME EACH DAY WITH FOOD. 08/02/2019 [id number] 06/24/2019 BRITTANEY VILLEDA 09/02/2018 STEFANI SPAIN TIOTROPIUM 2.5MCG/ACTUAT INHL,ORAL,60D,4GM INHALE 2 PUFFS BY ORAL INHALATION ONCE A DAY FOR BREATHING. DON'T USE WITH IPRATROPIUM - REPLACES ADVAIR. ACTIVE 06/24/2020 [id number] 06/24/2019 BRITTANEY VILLEDA 06/24/2019 STEFANI SPAIN TIOTROPIUM 2.5MCG/ACTUAT INHL,ORAL,60D,4GM INHALE 2 PUFFS BY ORAL INHALATION ONCE A DAY FOR BREATHING. DON'T USE WITH IPRATROPIUM - REPLACES ADVAIR. DISCONTINUE 10/13/2019 [id number] 03/18/2019 BRITTANEY VILLEDA 10/13/2018 [facility] Allergies, Adverse Reactions, Alerts No Known Medication Allergies Immunizations Combined list of: 1) all immunizations on record at all [facility] ies, and 2) all available immunizations on record at Department of Defense (Do D) facilities. Some immunizations on record at [facility] may not be included. Immunization Series Date Given Administered By Site Reaction Lot Number CVX Code Drug Ed Tech Status Comments Source INFLUENZA, TRIVALENT, ADJUVANTED 01/08/2019 168 completed [facility] INFLUENZA, TRIVALENT, ADJUVANTED 01/02/2018 168 completed [facility] INFLUENZA, INJECTABLE, QUADRIVALENT, PRESERVATIVE FREE 01/25/2017 150 completed [facility] INFLUENZA, HIGH DOSE SEASONAL 12/22/2015 135 completed [facility] PNEUMOCOCCAL CONJUGATE PCV 13 12/22/2015 133 completed [facility] PNEUMOCOCCAL POLYSACCHARIDE [id number] 11/20/2014 33 completed [facility] INFLUENZA (HISTORICAL) 01/29/2014 88 completed [facility] INFLUENZA, SEASONAL, INJECTABLE, PRESERVATIVE FREE 01/29/2014 140 completed [facility] INFLUENZA (HISTORICAL) 12/06/2012 88 completed [facility] PNEUMOCOCCAL, UNSPECIFIED FORMULATION 03/13/2010 109 completed [facility] TDAP 2009 115 completed [facility] INFLUENZA, UNSPECIFIED FORMULATION 01/28/2009 88 completed [facility] NOVEL [id number], ALL FORMULATIONS 01/28/2009 128 completed [facility] INFLUENZA, UNSPECIFIED FORMULATION 01/28/2008 88 completed [facility] PNEUMOCOCCAL, UNSPECIFIED FORMULATION 01/28/2008 109 completed [facility] INFLUENZA, UNSPECIFIED FORMULATION 02/28/2006 88 completed [facility] PNEUMOCOCCAL, UNSPECIFIED FORMULATION 02/17/2006 109 completed [facility] INFLUENZA, UNSPECIFIED FORMULATION 01/05/2005 88 completed [facility] Results Combined list of recent chemistry, hematology and other laboratory results going back no more than 15 months from the Department of Defense and Veterans Affairs facilities. Order Name Results Value Reference Range Date Interpretation Specimen Comments Source FERRITIN FERRITIN [MASS/VOLUME] IN S ERNIE OR PLASMA 182.4 ng/mL 22 - 275 01/23/2019 Specimen Type: SERUM No comment entered. [facility] FOLATE FOLATE [MASS/VOLUME] IN SERUM OR PLASMA 18.5 ng/mL 7.0 - 20.0 01/23/2019 Specimen Type: SERUM No comment entered. [facility] IRON/TIBC IRON BINDING CAPACIT Y [MASS/VOLUME] IN [...] BY IMMUNOASSAY --1ST SPECIMEN POSITIVE 1 03/17/2018 Specimen Type: FECES No comment entered. KO [...] 01/08/2019 Specimen Type: BLOOD No comment entered. [facility] CBC & DIFF MONOCYTES/100 LEUKO CYTES [...] 01/08/2019 Specimen Type: BLOOD No comment entered. [employer] COMPREHENSIVE METABOLIC PANEL CREATININE [MASS/VOLUME] IN SERUM OR PLASMA 0.83 mg/dL 0.7 - 1.3 01/08/2019 Specimen Type: PLASMA Comment: For eGFR: eGFR results >60 are imprecise. Many variables affect the calculated result. Interpretation of eGFR results >60 must be monitored over time. [employer] COMPREHENSIVE METABOLIC PANEL UREA NITROGEN [MASS/VOLUME] IN SERUM OR PLASMA 7 mg/dL 9 - 25 01/08/2019 L Specimen Type: PLASMA Comment: For eGFR: eGFR results >60 are imprecise. Many variables affect the calculated result. Interpretation of eGFR results >60 must be monitored over time. [employer] COMPREHENSIVE METABOLIC PANEL GLUCOSE [MASS/VOLUME] IN SERUM OR PLASMA 99 mg/dL 72 - 99 01/08/2019 Specimen Type: PLASMA Comment: For eGFR: eGFR results >60 are imprecise. Many variables affect the calculated result. Interpretation of eGFR results >60 must be monitored over time. [employer] COMPREHENSIVE METABOLIC PANEL SODIUM [MOLES/VOLUME] IN SERUM OR PLASMA 138 mEq/L 136 - 145 01/08/2019 Specimen Type: PLASMA Comment: For eGFR: eGFR results >60 are imprecise. Many variables affect the calculated result. Interpretation of eGFR results >60 must be monitored over time. [employer] COMPREHENSIVE METABOLIC PANEL POTASSIUM [MOLES/VOLUME] IN SERUM OR PLASMA 4.5 mEq/L 3.5 - 5.0 01/08/2019 Specimen Type: PLASMA Comment: For eGFR: eGFR results >60 are imprecise. Many variables affect the calculated result. Interpretation of eGFR results >60 must be monitored over time. [employer] COMPREHENSIVE METABOLIC PANEL CALCIUM [MASS/VOLUME] IN SERUM OR PLASMA 8.8 mg/dL 8.4 - 10.4 01/08/2019 Specimen Type: PLASMA Comment: For eGFR: eGFR results >60 are imprecise. Many variables affect the calculated result. Interpretation of eGFR results >60 must be monitored over time. [employer] COMPREHENSIVE METABOLIC PANEL PROTEIN [MASS/VOLUME] IN SERUM OR PLASMA 6.8 g/dL 6.0 - 8.6 01/08/2019 Specimen Type: PLASMA Comment: For eGFR: eGFR results >60 are imprecise. Many variables affect the calculated result. Interpretation of eGFR results >60 must be monitored over time. [employer] COMPREHENSIVE METABOLIC PANEL ALBUMIN [MASS/VOLUME] IN SERUM OR PLASMA 4.3 g/dl 3.4 - 5.0 01/08/2019 Specimen Type: PLASMA Comment: For eGFR: eGFR results >60 are imprecise. Many variables affect the calculated result. Interpretation of eGFR results >60 must be monitored over time. [employer] COMPREHENSIVE METABOLIC PANEL BILIRUBIN.TOTAL [MASS/VOLUME] IN SERUM OR PLASMA 0.5 mg/dL 0.2 - 1.2 01/08/2019 Specimen Type: PLASMA Comment: For eGFR: eGFR results >60 are imprecise. Many variables affect the calculated result. Interpretation of eGFR results >60 must be monitored over time. [employer] COMPREHENSIVE METABOLIC PANEL ASPARTATE AMINOTRANSFERASE [ENZYMATIC ACTIVITY/VOLUME] IN SERUM OR PLASMA 15 U/L 5 - 34 01/08/2019 Specimen Type: PLASMA Comment: For eGFR: eGFR results >60 are imprecise. Many variables affect the calculated result. Interpretation of eGFR results >60 must be monitored over time. [employer] COMPREHENSIVE METABOLIC PANEL ALANINE AMINOTRANSFERASE [ENZYMATIC ACTIVITY/VOLUME] IN SERUM OR PLASMA 12 U/L 8 - 40 01/08/2019 Specimen Type: PLASMA Comment: For eGFR: eGFR results >60 are imprecise. Many variables affect the calculated result. Interpretation of eGFR results >60 must be monitored over time. [employer] COMPREHENSIVE METABOLIC PANEL ANION GAP IN SERUM OR PLASMA 8.2 2018 Specimen T ype: PLASMA Comment: For eGFR: eGFR results >60 are imprecise. Many variables affect the calculated result. Interpretation of eGFR results >60 must be monitored over time. [facility] COMPREHENSIVE METABOLIC PANEL CHLORIDE [MOLES/VOLUME] IN SERUM OR PLASMA 102 mEq/L 98 - 107 01/08/2019 Specimen Type: PLASMA Comment: For eGFR: eGFR results >60 are imprecise. Many variables affect the calculated result. Interpretation of eGFR results >60 must be monitored over time. [facility] COMPREHENSIVE METABOLIC PANEL "CARBON DIOXIDE, TOTAL [MOLES/VOLUME] IN SERUM OR PLASMA" 27.8 mEq/L 22 - 31 01/08/2019 Specimen Type: PLASMA Comment: For eGFR: eGFR results >60 are imprecise. Many variables affect the calculated result. Interpretation of eGFR results >60 must be monitored over time. [facility] COMPREHENSIVE METABOLIC PANEL ALKALINE PHOSPHATASE [ENZYMATIC ACTIVITY/VOLUME] IN SERUM OR PLASMA 63 U/L 40 - 150 01/08/2019 Specimen Type: PLASMA Comment: For eGFR: eGFR results >60 are imprecise. Many variables affect the calculated result. Interpretation of eGFR results >60 must be monitored over time. [facility] COMPREHENSIVE METABOLIC PANEL GLOMERULAR FILTRATION RATE/1.73 SQ M.PREDICTED [VOLUME RATE/AREA] IN SERUM OR PLASMA BY CREATININE- BASED FORMULA (MDRD) >60 01/08/2019 Specimen Type: PLASMA Comment: For eGFR: eGFR results >60 are imprecise. Many variables affect the calculated result. Interpretation of eGFR results >60 must be monitored over time. [facility] LIPID PROFILE(HDL,TRIG,CHOL,LDL) CHOLESTEROL [MASS/VOLUME] IN SERUM OR PLASMA 145 mg/dL 0 - 200 01/08/2019 Specimen Type: PLASMA Comment: For eGFR: eGFR results >60 are imprecise. Many variables affect the calculated result. Interpretation of eGFR results >60 must be monitored over time. [facility] LIPID PROFILE(HDL,TRIG,CHOL,LDL) TRIGLYCERIDE [MASS/VOLUME] IN SERUM OR PLASMA 74 mg/dL 0 - 150 01/08/2019 Specimen Type: PLASMA Comment: For eGFR: eGFR results >60 are imprecise. Many variables affect the calculated result. Interpretation of eGFR results >60 must be monitored over time. [facility] LIPID PROFILE(HDL,TRIG,CHOL,LDL) CHOLESTEROL IN HDL [MASS/VOLUME] IN SERUM OR PLASMA 62 mg/dL 01/08/2019 Specimen Type: PLASMA Comment: For eGFR: eGFR results >60 are imprecise. Many variables affect the calculated result. Interpretation of eGFR results >60 must be monitored over time. [facility] LIPID PROFILE(HDL,TRIG,CHOL,LDL) CHOLESTEROL IN LDL [MASS/VOLUME] IN SERUM OR PLASMA BY CALCULATION 68 mg/dL 0 - 99.9 01/08/2019 Specimen Type: PLASMA Comment: For eGFR: eGFR results >60 are imprecise. Many variables affect the calculated result. Interpretation of eGFR results >60 must be monitored over time. [facility] PROSTATIC SPECIFIC ANTIGEN(TOTAL) PROSTATE SPECIFIC AG [MASS/VOLUME] IN SERUM OR PLASMA 1.1 ng/mL 0 - 4 01/08/2019 Specimen Type: SERUM No comment entered. [facility] TSH THYROTROPIN [UNITS/VOLUME] IN SE RUM OR PLASMA 1.90 uIU/mL 0.47 - 5.00 01/08/2019 Specimen Type: SERUM No comment entered. [facility] Vital Signs Combined list of inpatient and outpatient Vital Signs from all Department of [facility] and/or Veterans Affairs medical facilities within the last 15 months. The included entries comply with the patient's data sharing authorizations. Vital Sign Value Date Comments Source PAIN 0 01/08 08:55:00 [facility] Encounters Combined list of encounters at Department of Defense and/or [facility] Affairs ([place] ) for the last 15 months. Not all VA inpatient encounters are included. The incl uded entries comply with the patient's data sharing authorizations. Location Location Details Encounter Type Encounter Number Reason For Visit Attending Provider ADM Date DC Date Status Disposition Source Outpatient Encounter [id number] _MAPID:[id number] 05/01/2018 [facility] Outpatient Encounter [id number] _MAPID:[id number] 05/02/2018 [facility] OFFICE/OUT PATIENT VISIT EST [id number] ICD-10 -CM M54.5 Low back pain with Provider Comments: Low Back Pain CHOUDHURYBELLA 05/31/2018 [facility] Outpatient Encounter [id number] _MAPID:e [id number] 06/05/2018 [place] [address] Outpatient Encounter [id number] _MAPID:e [id number] 07/02/2018 [facility] Outpatient Encounter [id number] _MAPID:en [id number] 07/02/2018 [facility] Outpatient Encounter [id number] _MAPID:[id number] 07/02/2018 [facility] Outpatient Encounter [id number] _MAPID:e [id number] 07/12/2018 [facility] Outpatient Encounter [id number] _MAPID:[id number] 07/18/2018 [facility] Outpatient Encounter [id number] _MAPID:e amZuomuh94 07/25/2018 [facility] En[facility] [id number] _MAPID:e [id number] 08/01/2018 [facility] En[facility] [id number] _MAPID:e sdZgyoat36 08/07/2018 [facility] Outpatient Encounter [id number] _MAPID:[id number] 08/07/2018 [facility] Outpatient Encounter [id number] _MAPID:[id number] 08/10/2018 [facility] Outpatient Encounter [id number] ICD-10 -CM Z71.2 Person consulting for explanation of exam or test findings with Provider Comments: Explanation of Exam or Test Finding BELLA CHOUDHURY 08/15/2018 [facility] Outpatient Encounter [id number] _MAPID:e [id number] 08/28/2018 [facility] Encounter [id number] _MAPID:e [id number] 09/07/2018 [facility] Encounter [id number] _MAPID:[id number] 10/03/2018 [facility] Outpatient Encounter [id number] _MAPID:[id number] 10/04/2018 [facility] Outpatient Encounter [id number] _MAPID:tovYeukmr13 10/10/2018 [facility] Outpatient Encounter [id number] _MAPID:[id number] 10/16/2018 [facility] Outpatient Encounter [id number] _MAPID:e ngSyopuk79 10/22/2018 [facility] Outpatient Encounter [id number] _MAPID:e qyEwgzdo60 10/29/2018 [facility] Encounter [id number] _MAPID:e arVuodgu31 11/02/2018 [facility] Encounter [id number] _MAPID:[id number] 11/02/2018 [facility]UMI [facility] Outpatient Encounter [id number] _MAPID:e wyWnqlqk85 11/09/2018 [facility] Out[facility] Encounter [id number] _MAPID:e nyCblqqr43 11/23/2018 [facility] Out[facility] Encounter [id number] _MAPID:[id number] 12/06/2018 [facility] Outpatient Encounter [id number] _MAPID:e [id number] 01/08/2019 [facility] OFFICE/OUT PATIENT VISIT EST [id number] ICD-10 -CM I10. Essential (primary) hypertension with Provider Comments: Essential (Primary) Hypertension RAMY TRENT 01/08/2019 [facility] Outpatient Encounter [id number] _MAPID:e [id number] 01/25/2019 [facility] Outpatient Encounter [id number] _MAPID:e wyZtnsif13 01/27/2019 [facility] Outpatient Encounter [id number] _MAPID:e ndReason8 01/28/2019 [facility] Outpatient Encounter [id number] _MAPID:e ndReason9 01/28/2019 [facility] Outpatient Encounter [id number] _MAPID:e ndReason7 02/04/2019 [facility] Outpatient Encounter [id number] _MAPID :endReason6 02/08/2019 [facility] Outpatient Encounter [id number] _MAPID :endReason5 02/08/2019 [facility] Outpatient Encounter [id number] _MAPID :endReason4 02/11/2019 [facility] Outpatient Encounter [id number] _MAPID:e ndReason3 05/08/2019 [facility] Outpatient Encounter [id number] _MAPID :endReason2 05/08/2019 [facility] Outpatient Encounter [id number] _MAPID:en dRekenroy1 BAR KWONG 08/19/2019 JEOVANNY [facility] Procedures No Data Provided for This [...] of tobacco use NON-T OBACCO USER 12/25/2017 [facility] History of tobacco use NON-T OBACCO USER 01/25/2017 [facility] History of tobacco use NON-T OBACCO USER 12/22/2015 [facility] History of tobacco use TOBAC CO SCREEN COMPLETED 09/22/2011 [facility] History of tobacco use QUIT TOBACCO IN THE LAST 12 MONTHS 09/22/2011 [facility] History of tobacco use TOBAC CO MEDICATION INTERVENTION 10/28/2010 [facility] History of tobacco use TOBAC CO MEDICATION REFERRAL 08/03/2010 Dr. Lincoln [facility] History of tobacco use CURRE NT TOBACCO USER 08/03/2010 [facility] Assessment and Plan No Data Provided for This Section Plan of Care Date/Time Care Activity Care Activity Detail Facility 01/09/2020 AMBULATORY - MEDICI NE AMBULATORY - MEDICINE [facility] 08/19/2019 Consult Order COMMUNITY CARE-EMERGENCY TREATMENT APPROVED Cons Bedside [facility] [facility] Family History No Data Provided for This Section Advance Directives List of completed, amended, or rescinded Advance Directives on record at [facility]. An actual copy of the Directive is not included. Date Advance Directive Provider Source 01/02/2018 ADVANCE DIRECTIVE D FLO H[facility] 10/17/2000 ADVANCE DIRECTIVE EUNICE RODRIGUEZ [facility], [place] 15 Functional Status No Data Provided for This Section
--- OUTSIDE RECORDS SUMMARY | 2019-08-20 00:52 | XMS REPORT | Encounter Summary ---
Author Author Department [facility] JUAN MANUEL posey Organization Department of [facility] Address [address] [place] [phone] Phone Unavailable Care Team Providers Care Informatics Pharmacist Name Role Phone BRITTANEY VILLEDA PCP Unavailable [...] PART B Apr 13, 2007 PART B [id number] [phone] JUAN MANUEL MARTIN PATIENT MEDICARE (WNR) MEDICARE (M) PART B Apr 13, 2007 PART B [id number] JUAN MANUEL MARTIN PATIENT MEDICARE (WNR) MEDICARE (M) PART A Sep 10, 2005 PART A [id number] MARTIN,GARY PATIENT MEDICARE (WNR) MEDICARE (M) PART A Sep 10, 2005 PART A [id number] JUAN MANUEL MARTIN PATIENT MEDICARE (WNR) MEDICARE (M) PART A Sep 10, 2005 PART A [id number] JUAN MANUEL MARTIN PATIENT Selected Encounter This section includes the information on record at [place] for the Encounter. Date/Time Encounter Type Encounter Description Reason Provider Source May 08, 2019 03:27 PM Outpatient Encounter ADMIN PAT ACTIVTIES (MELANIE CUADRA) YUMI BROWN [facility] IHE Encounter Template Text not used [...] docume nt. The data comes from all [place] facilities. Date Advance Directives Provider Source Jan 02, 2018 ADVANCE DIRECTIVE DISCUSSION FLO KRUEGER [facility] Oct 17, 2000 ADVANCE DIRECTIVE EUNICE RODRIGUEZ [facility], [place] 15 Allergies and Adverse Reactions (ADRs): All historical and current Section Date Range: From patient's date of to the date document was create d. This section includes Allergies and Adverse Reactions (ADR s) on record with VA for the patient. The data comes from a ll [place] treatment facilities. It does not list Allergies/ADRs that were removed or entered in error. Some allergies/ADRs may be reported in t he Immunization section. Allergen Event Date Event Type Reaction(s) Severity Source No Known Allergies [facility] No Allergy Assessment on File JEOVANNY MORGAN Medications: VA dispensed (-15 months) and Non-VA Documented (Obtained Outside A) Section Date Range: 1) prescriptions processed by a [place] pharmacy in the last 15 m ont, and 2) all medications recorded in the [place] medical record as "non-VA medic ations". Pharmacy terms refer to [place] pharmacy's work on prescriptions. VA patient s are advised to take their medications as instructed by their health care team. The data comes from all [place] treatment facilities. Glossary of Pharmacy Terms:Active = A prescription that can be filled at the local [place] pharmacy.Active: On Hold = An active prescription that will not be filled until pharmacy resolves the issue.Active: Susp = An active prescription that is not scheduled to be filled yet.Clinic Order = A medication received during a visit to a [place] clinic or emergency department (currently not available).Discontinued [...] may be a prescription from either the CO or other providers that was filled outside the [place]. Or, it may be an over the [...] A DAY NEEDED 180 Jan 09, 2020 [id number] Apr 10, 2019 MAK VILLEDA [facility] ALBUTEROL SO4 0.083% INHL,3ML Discontinued USE 3 MLS IN NEBULIZER FOR INHALATION TWO TIMES A DAY NEEDED 180 Jan 27, 2019 [id number] Nov 01, 2018 BRITTANEY VENEGAS [facility] ALBUTEROL SO4 90MCG/ACTUAT (CFC-F) INHL,ORAL,6.7GM Active INHALE 2 PUFFS BY ORAL INHALATION TWO TIMES A DAY NEEDED - RINSE MOUTHPIECE FREQUENTLY TO PREVENT CLOGGING 2 Aug 30, 2019 [id number] Mar 18, 2019 BRITTANEY VILLEDA [facility] ALBUTEROL SO4 90MCG/ACTUAT (CFC-F) INHL,ORAL,6.7GM Discontin ued INHALE 2 PUFFS BY ORAL INHALATION TWO TIMES A DAY NEEDED - RINSE MOUTHPIECE FREQUENTLY TO PREVENT CLOGGING 2 Mar 27, 2019 [id number] Aug 30, 2018 BRITTANEY VILLEDA BUDESONIDE 80MCG/FORMOTEROL FUM 4.5MCG/SPRAY INHL,ORAL,10.2G M Active INHALE 2 PUFFS BY ORAL INHALATION TWO TIMES A DAY FOR BREATHING. SHAKE WELL. RINSE MOUTH AND SPIT AFTER EACH USE. 3 Jun 24, 2020 [id number] Jun 24, 2019 BRITTANEY VILLEDA BUDESONIDE 80MCG/FORMOTEROL FUM 4.5MCG/SPRAY INHL,ORAL,10.2G M Discontinued INHALE 2 PUFFS BY ORAL INHALATION TWO TIMES A DAY FOR BREATHING. SHAKE WELL. RINSE MOUTH AND SPIT AFTER EACH USE. 3 Dec 07, 2019 [id number] Mar 18, 2019 BRITTANEY VILLEDA [facility] FERROUS SO4 324MG TAB,EC Active TAKE ONE TABLET BY MOUTH TWO TIMES A DAY FOR IRON SUPPLEMENTATION. MAY TAKE WITH FOOD IF NOT TOLERATED ON EMPTY STOMACH 200 Jan 09, 2020 [id number] Apr 23, 2019 BRITTANEY VILLEDA FERROUS SO4 324MG TAB,EC Discontinued TAKE ONE TABLET BY MOUTH TWO TIMES A DAY FOR IRON SUPPLEMENTATION. MAY TAKE WITH FOOD IF NOT TOLERATED ON EMPTY STOMACH 200 May 02, 2019 [id number] Nov 14, 2018 BRITTANEY VILLEDA CBO C FOLIC ACID 1MG TAB Active TAKE ONE TABLET BY MOUTH ONCE A DAY 90 Nov 22, 2019 [id number] Mar 18, 2019 BRITTANEY VILLEDA FOLIC ACID 1MG TAB Discontinued TAKE ONE TABLET BY MOUTH ONCE A DAY 90 May 02, 2019 [id number] Sep 26, 2018 BRITTANEY VILLEDA GABAPENTIN 300MG CAP Discontinued TAKE 2 CAPSULES BY MOUTH FOUR TITO ES A DAY 720 Jan 27, 2019 [id number] Nov 14, 2018 BRITTANEY VILLEDA CBTERRENCE GABAPENTIN 400MG CAP Active TAKE 1 CAPSULE BY MOUTH THREE TITO ES A DAY 270 Dec 07, 2019 [id number] Mar 18, 2019 BRITTANEY VILLEDA HYDROCODONE 10MG/ACETAMINOPHEN 325MG TAB Non-VA TAKE ONE TABLET BY MOUTH FOUR TIMES A DAY Non-VA Documented by: RAMY TRENT nted at: STEFANI SPAIN LISINOPRIL 10MG TAB Discontinued TAKE ONE-HALF TABLET BY MOUTH EVERY MORNING FOR HEART OR HIGH BLOOD PRESSURE 15 Jun 01, 2019 [id number] Jun 02, 2018 BRITTANEY VILLEDA LOSARTAN 25MG TAB Active TAKE ONE TABLET BY MOUTH ONCE A DAY FOR BLOOD PRESSURE 90 Jan 09, 2020 [id number] Apr 23, 2019 BRITTANEY VILLEDA CBO C LOSARTAN 25MG TAB Discontinued TAKE ONE TABLET BY M OUTH ONCE A DAY FOR BLOOD PRESSURE 90 July 13, 2019 [id number] Nov 14, 2018 [facility] MELOXICAM 15MG TAB TAKE ONE TABLET BY M OUTH ONCE A DAY FOR PAIN OR INFLAMMATION. 90 Jun 01, 2019 [id number] Mar 18, 2019 BRITTANEY VILLEDA METOPROLOL TARTRATE 25MG TAB Active TAKE ONE-SMITH LF TABLET BY MOUTH TWO TIMES A DAY FOR HEART/BLOOD PRESSURE. TAKE WITH OR IMMEDIATELY FOLLOWING FOOD. 90 Jan 09, 2020 [id number] Apr 23, 2019 BRITTANEY VILLEDA METOPROLOL TARTRATE 25MG TAB Discontinued TAKE ONE-SMITH LF TABLET BY MOUTH TWO TIMES A DAY FOR HEART/BLOOD PRESSURE. TAKE WITH OR IMMEDIATELY FOLLOWING FOOD. 90 July 13, 2019 [id number] Nov 14, 2018 [facility] SIMVASTATIN 40MG TAB Active TAKE ONE-HALF TABLE T BY MOUTH AT BEDTIME FOR CHOLESTEROL - REPORT ANY UNEXPLAINED MUSCLE PAIN OR WEAKNESS TO YOUR PROVIDER 45 Sep 27, 2019 [id number] Jun 24, 2019 BRITTANEY VILLEDA CBO C SIMVASTATIN 40MG TAB Discontinued TAKE ONE-HALF TABLE T BY MOUTH AT BEDTIME FOR CHOLESTEROL - REPORT ANY UNEXPLAINED MUSCLE PAIN OR WEAKNESS TO YOUR PROVIDER 45 Sep 23, 2018 [id number] Jul 05, 2018 BRITTANEY VILLEDA [facility] TAMSULOSIN HCL 0.4MG CAP Discontinued TAKE ONE CAPSUL E BY MOUTH ONCE A DAY FOR PROSTATE. TAKE AT THE SAME TIME EACH DAY WITH FOOD. 90 Jun 17 9 [id number] Jun 14, 2018 BRITTANEY VILLEDA TAMSULOSIN HCL 0.4MG CAP TAKE ONE CAPSUL E BY MOUTH ONCE A DAY FOR PROSTATE. TAKE AT THE SAME TIME EACH DAY WITH FOOD. 90 August 01 0 [id number] Jun 24, 2019 BRITTANEY VILLEDA TIOTROPIUM 2.5MCG/ACTUAT INHL,ORAL,60D,4GM Active INHALE 2 PUFFS BY ORAL INHALATION ONCE A DAY FOR BREATHING. DON'T USE WITH IPRATROPIUM - REPLACES ADVAIR. 3 Jun 24, 2020 [id number] Jun 24, 2019 BRITTANEY VILLEDA [facility] TIOTROPIUM 2.5MCG/ACTUAT INHL,ORAL,60D,4GM Discontinued INHALE 2 PUFFS BY ORAL INHALATION ONCE A DAY FOR BREATHING. DON'T USE WITH IPRATROPIUM - REPLACES ADVAIR. 3 Oct 13, 2019 [id number] Mar 18, 2019 BRITTANEY VILLEDA [facility] Problems (Conditions): All historical and current Section Date Range: From patient's date of to the date document was create d. This section includes a list of Problems (Conditions) know n to [facility] for the patient. It includes both active and inacti ve problems (conditions). The data comes from all [place] treatment facilities. Problem Status Problem Code Date of Onset Date of Resolution Comm ent(s) Provider Source Actinic keratosis (SNOMED CT 993273589) Active 702.0 BRITTANEY VILLEDA [facility] Alcohol Dependence * (ICD-9-CM 303.90/303.91) Active 303.90 ALEXANDRA KWONG [facility] Anemia Active 285.9 SATHISH SCOTT [facility] ANGINA PECTORIS NEC/NOS 413.9 Active 413.9 W ALEXANDRA DE JESUS [facility] Anxiety Disorder Active 300.00 AURELIANO LINCOLN MD [facility] Benign Neoplasm Skin Head, Neck, Scalp Active 216.4 RENALDO DACOSTA [facility] CABG Active 799.9 Oct 05, 2006 E ntered By: SATHISH SCOTT Comment: feb, 4-vessel SATHISH SCOTT [facility] Chest discomfort (SNOMED CT 338690331) Active 786.59 BRITTANEY VILLEDA [facility] Chronic airway obstruction, Not Elsewhere Classified Active 496. AURELIANO LINCOLN MD [facility] Chronic Low Back Pain Active 724.2 AURELIANO LINCOLN MD [facility] COPD * (ICD-9-CM 496.) Active 496. Robin [facility] Coronary Artery Disease * (ICD-9-CM 414.9) Active 414.9 ALEXANDRA KWONG [facility] Coronary Atherosclerosis of [place] Coronary Vessel Active 414.01 August 03, 2010 Entered By: AURELIANO LINCOLN MD Comment: Bypass surgery AURELIANO LINCOLN MD [facility] Disorder of shoulder (SNOMED CT 922137980) Active 719.91 [facility]ITTANEY [facility]ILLEDA [facility] Essential Hypertension Active 401.9 AURELIANO LINCOLN MD [facility] Hyperlipidemia Active 272.4 SATHISH SCOTT [facility] HYPERTENSION NOS 401.9 Active 401.9 ALEXANDRA KWONG Can [facility] Impotence (SNOMED CT 222624954) Active 302.72 [facility] 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 AURELIANO LIU MD [facility] Marijuana Dependence unspecified Active 304.30 AURELIANO LINCOLN MD [facility] Microscopic Hematuria (ICD-9-CM 599.72) Active 599.72 BEVERLY SALINAS [facility] Other and unspecified hyperlipidemia Active 272.4 AURELIANO LINCOLN MD [facility] Other, mixed, or unspecified drug abuse, continuous use Active 30 5.91 Jan 30, 2009 Entered By: SATHISH SCOTT Comment: urine drug screen positive for opitates and marijuannaMay 2009 Entered By: SATHISH SCOTT Comment: buying hydrocodone "off the street" SATHISH SCOTT [facility] Pain in joint involving ankle and foot (ICD-9-CM 719.47) Active 719 .47 SATHISH SCOTT [facility] Papular eruption (SNOMED CT 205462920) Active 709.8 BRITTANEY [facility]ILLEDA [facility] Personal History of Noncompliance with M edical Treatment, Presenting Hazards to Active V15.81 SATHISH SCOTT [facility] Tobacco dependence syndrome (SNOMED CT 49953139) Active [id number] July 24, 2009 Entered By: SATHISH SCOTT Comment: one YUMI Gibbons [facility] Transient Ischemic Attack * (ICD-9-CM 435.9) Active 435.9 [facility] ANIETY STAT NOS 300.00 Inactive 300.00 Jan 05, 2005 ALEXANDRA FLOREZ [facility] Bronchitis * (ICD-9-CM 490.) Inactive 490. Jan 05, 2005 RONALBRITTANEY [facility] Postsurgical Aortocoronary Bypass Status (ICD-9-CM V45.81) Inactive V45.81 Oct 05, 2006 [facility]ISH SCOTT [facility] Radiology Reports: +/- 30 days of [...] for diagnostic colonoscopy. Community [facility] consult DC'd, [place] used private insurance to go out in [...] MSN, RN Signed: 05/08/2019 15:31 LOVE FRYE [facility]
--- OUTSIDE RECORDS SUMMARY | 2019-08-20 00:52 | XMS REPORT | Encounter Summary ---
Author Author Department [facility] JUAN MANUEL posey Organization Department of [facility] Address [address] [place] [phone] Phone Unavailable Care Team Providers Care Boiler Shop Supervisor Name Role Phone BRITTANEY VILLEDA PCP [...] PART B Apr 13, 2007 PART B [id number] [phone] MARTIN,GARY PATIENT MEDICARE (WNR) MEDICARE (M) PART B Apr 13, 2007 PART B [id number] JUAN MANUEL MARTIN PATIENT MEDICARE (WNR) MEDICARE (M) PART A Sep 10, 2005 PART A [id number] MARTIN,JUAN MANUEL PATIENT MEDICARE (WNR) MEDICARE (M) PART A Sep 10, 2005 PART A [id number] [phone] JUAN MANUEL MARTIN PATIENT MEDICARE (WNR) MEDICARE (M) PART A Sep 10, 2005 PART A [id number] JUAN MANUEL MARTIN PATIENT Selected Encounter This section includes the information on record at [place] for the Encounter. Date/Time Encounter Type Encounter Description Reason Provider Source May 08, 2019 12:00 AM Outpatient Encounter EVENT (HISTORICAL) [facility] 15 IHE Encounter Template Text not [...] 2018 ADVANCE DIRECTIVE DISCUSSION FLO KRUEGER [facility] Oct 17, 2000 ADVANCE DIRECTIVE EUNICE RODRIGUEZ [facility], [facility] 15 Allergies and Adverse Reactions (ADRs): [...] Reaction(s) Severity Source No Known Allergies [facility] No Allergy Assessment on File JEOVANNY [...] A DAY NEEDED 180 Jan 09, 2020 [id number] Apr 10, 2019 MAK VILLEDA ALBUTEROL SO4 0.083% INHL,3ML Discontinued USE 3 MLS IN NEBULIZER FOR INHALATION TWO TIMES A DAY NEEDED 180 Jan 27, 2019 [id number] Nov 01, 2018 BRITTANEY VENEGAS [facility] ALBUTEROL SO4 90MCG/ACTUAT (CFC-F) INHL,ORAL,6.7GM Active INHALE 2 PUFFS BY ORAL INHALATION TWO TIMES A DAY NEEDED - RINSE MOUTHPIECE FREQUENTLY TO PREVENT CLOGGING 2 Aug 30, 2019 [id number] Mar 18, 2019 BRITTANEY VILLEDA CBTERRENCE ALBUTEROL SO4 90MCG/ACTUAT (CFC-F) INHL,ORAL,6.7GM Discontin ued INHALE 2 PUFFS BY ORAL INHALATION TWO TIMES A DAY NEEDED - RINSE MOUTHPIECE FREQUENTLY TO PREVENT CLOGGING 2 Mar 27, 2019 [id number] Aug 30, 2018 BRITTANEY VILLEDA BUDESONIDE 80MCG/FORMOTEROL FUM 4.5MCG/SPRAY INHL,ORAL,10.2G M Active INHALE 2 PUFFS BY ORAL INHALATION TWO TIMES A DAY FOR BREATHING. SHAKE WELL. RINSE MOUTH AND SPIT AFTER EACH USE. 3 Jun 24, 2020 [id number] Jun 24, 2019 BRITTANEY VILLEDA BUDESONIDE 80MCG/FORMOTEROL FUM 4.5MCG/SPRAY INHL,ORAL,10.2G M Discontinued INHALE 2 PUFFS BY ORAL INHALATION TWO TIMES A DAY FOR BREATHING. SHAKE WELL. RINSE MOUTH AND SPIT AFTER EACH USE. 3 Dec 07, 2019 [id number] Mar 18, 2019 BRITTANEY VILLEDA [facility] FERROUS SO4 324MG TAB,EC Active TAKE ONE TABLET BY MOUTH TWO TIMES A DAY FOR IRON SUPPLEMENTATION. MAY TAKE WITH FOOD IF NOT TOLERATED ON EMPTY STOMACH 200 Jan 09, 2020 [id number] Apr 23, 2019 BRITTANEY VILLEDA FERROUS SO4 324MG TAB,EC Discontinued TAKE ONE TABLET BY MOUTH TWO TIMES A DAY FOR IRON SUPPLEMENTATION. MAY TAKE WITH FOOD IF NOT TOLERATED ON EMPTY STOMACH 200 May 02, 2019 [id number] Nov 14, 2018 BRITTANEY VILLEDA C FOLIC ACID 1MG TAB Active TAKE ONE TABLET BY MOUTH ONCE A DAY 90 Nov 22, 2019 [id number] Mar 18, 2019 BRITTANEY VILLEDA FOLIC ACID 1MG TAB Discontinued TAKE ONE TABLET BY MOUTH ONCE A DAY 90 May 02, 2019 [id number] Sep 26, 2018 BRITTANEY VILLEDA GABAPENTIN 300MG CAP Discontinued TAKE 2 CAPSULES BY MOUTH FOUR TITO ES A DAY 720 Jan 27, 2019 [id number] Nov 14, 2018 BRITTANEY VILLEDA GABAPENTIN 400MG CAP Active TAKE 1 CAPSULE BY MOUTH THREE TITO ES A DAY 270 Dec 07, 2019 [id number] Mar 18, 2019 BRITTANEY VILLEDA HYDROCODONE 10MG/ACETAMINOPHEN 325MG TAB Non-VA TAKE ONE TABLET BY MOUTH FOUR TIMES A DAY Non-VA Documented by: RAMY TRENTed at: STEFANI SPAIN LISINOPRIL 10MG TAB Discontinued TAKE ONE-HALF TABLET BY MOUTH EVERY MORNING FOR HEART OR HIGH BLOOD PRESSURE 15 Jun 01, 2019 [id number] Jun 02, 2018 BRITTANEY VILLEDA LOSARTAN 25MG TAB Active TAKE ONE TABLET BY MOUTH ONCE A DAY FOR BLOOD PRESSURE 90 Jan 09, 2020 [id number] Apr 23, 2019 BRITTANEY VILLEDA CBO C LOSARTAN 25MG TAB Discontinued TAKE ONE TABLET BY M OUTH ONCE A DAY FOR BLOOD PRESSURE 90 July 13, 2019 [id number] Nov 14, 2018 [facility] MELOXICAM 15MG TAB TAKE ONE TABLET BY M OUTH ONCE A DAY FOR PAIN OR INFLAMMATION. 90 Jun 01, 2019 [id number] Mar 18, 2019 BRITTANEY VILLEDA CBTERRENCE METOPROLOL TARTRATE 25MG TAB Active TAKE ONE-SMITH LF TABLET BY MOUTH TWO TIMES A DAY FOR HEART/BLOOD PRESSURE. TAKE WITH OR IMMEDIATELY FOLLOWING FOOD. 90 Jan 09, 2020 [id number] Apr 23, 2019 BRITTANEY VILLEDA [facility] METOPROLOL TARTRATE 25MG TAB Discontinued TAKE ONE-SMITH LF TABLET BY MOUTH TWO TIMES A DAY FOR HEART/BLOOD PRESSURE. TAKE WITH OR IMMEDIATELY FOLLOWING FOOD. 90 July 13, 2019 [id number] Nov 14, 2018 TIERRA KWONG [facility] SIMVASTATIN 40MG TAB Active TAKE ONE-HALF TABLE T BY MOUTH AT BEDTIME FOR CHOLESTEROL - REPORT ANY UNEXPLAINED MUSCLE PAIN OR WEAKNESS TO YOUR PROVIDER 45 Sep 27, 2019 [id number] Jun 24, 2019 BRITTANEY VILLEDA CBO C SIMVASTATIN 40MG TAB Discontinued TAKE ONE-HALF TABLE T BY MOUTH AT BEDTIME FOR CHOLESTEROL - REPORT ANY UNEXPLAINED MUSCLE PAIN OR WEAKNESS TO YOUR PROVIDER 45 Sep 23, 2018 [id number] Jul 05, 2018 BRITTANEY VILLEDA CBO C TAMSULOSIN HCL 0.4MG CAP Discontinued TAKE ONE CAPSUL E BY MOUTH ONCE A DAY FOR PROSTATE. TAKE AT THE SAME TIME EACH DAY WITH FOOD. 90 Jun 17 9 [id number] Jun 14, 2018 BRITTANEY VILLEDA TAMSULOSIN HCL 0.4MG CAP TAKE ONE CAPSUL E BY MOUTH ONCE A DAY FOR PROSTATE. TAKE AT THE SAME TIME EACH DAY WITH FOOD. 90 August 01 0 [id number] Jun 24, 2019 BRITTANEY VILLEDA TIOTROPIUM 2.5MCG/ACTUAT INHL,ORAL,60D,4GM Active INHALE 2 PUFFS BY ORAL INHALATION ONCE A DAY FOR BREATHING. DON'T USE WITH IPRATROPIUM - REPLACES ADVAIR. 3 Jun 24, 2020 [id number] Jun 24, 2019 BRITTANEY VILLEDA CB TIOTROPIUM 2.5MCG/ACTUAT INHL,ORAL,60D,4GM Discontinued INHALE 2 PUFFS BY ORAL INHALATION ONCE A DAY FOR BREATHING. DON'T USE WITH IPRATROPIUM - REPLACES ADVAIR. 3 Oct 13, 2019 [id number] Mar 18, 2019 BRITTANEY VILLEDA CB Problems [...] ent(s) Provider Source Actinic keratosis (SNOMED CT 886402477) Active 702.0 BRITTANEY VILLEDA [facility] Alcohol Dependence * (ICD-9-CM 303.90/303.91) Active 303.90 ALEXANDRA KWONG [facility] Anemia Active 285.9 SATHIHS SCOTT [facility] ANGINA PECTORIS NEC/NOS 413.9 Active 413.9 W ALEXANDRA DE JESUS [facility] Anxiety Disorder Active 300.00 AURELIANO LINCOLN MD [facility] Benign Neoplasm Skin Head, Neck, Scalp Active 216.4 RENALDO DACOSTA [facility] CABG Active 799.9 Oct 05, 2006 E ntered By: SATHISH SCOTT Comment: feb, 4-vessel SATHISH SCOTT [facility] Chest discomfort (SNOMED CT 486130986) Active 786.59 BRITTANEY VILLEDA [facility] Chronic airway obstruction, Not Elsewhere Classified Active 496. AURELIANO LINCOLN MD [facility] Chronic Low Back Pain Active 724.2 AURELIANO LINCOLN MD [facility] COPD * (ICD-9-CM 496.) Active 496. Robin [facility] Coronary Artery Disease * (ICD-9-CM 414.9) Active 414.9 [facility] K[facility] Coronary Atherosclerosis of [place] Coronary Vessel Active 414.01 August 03, 2010 Entered By: AURELIANO LINCOLN MD Comment: Bypass surgery AURELIANO LINCOLN MD [facility] Disorder of shoulder (SNOMED CT 570932205) Active 719.91 [facility]ITTANEY [facility]ILLEDA [facility] Essential Hypertension Active 401.9 AURELIANO LINCOLN MD [facility] Hyperlipidemia Active 272.4 SATHISH SCOTT [facility] HYPERTENSION NOS 401.9 Active 401.9 ALEX[facility]DRA KWONG [facility] Impotence (SNOMED CT 853445917) Active 302.72 [facility] 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 Other and unspecified hyperlipidemia Active 272.4 AURELIANO LINCOLN MD [facility] Other, mixed, or unspecified drug abuse, continuous use Active 30 5.91 Jan 30, 2009 Entered By: SATHISH SCOTT Comment: urine drug screen positive for opitates and marijuannaMay 2009 Entered By: SATHISH SCOTT Comment: buying hydrocodone "off the street" SATHISH SCOTT [facility] Pain in joint involving ankle and foot (ICD-9-CM 719.47) Active 719 .47 SATHISH SCOTT [facility] Papular eruption (SNOMED CT 679404717) Active 709.8 BRITTANEY VILLEDA [facility] Personal History of Noncompliance with M edical Treatment, Presenting Hazards to Active V15.81 SATHISH SCOTT [facility] Tobacco dependence syndrome (SNOMED CT 68334280) Active 82029735 July 24, 2009 Entered By: SATHISH SCOTT Comment: [facility] pp[facility] Transient Ischemic Attack * (ICD-9-CM 435.9) Active 435.9 [facility]ISH SCOTT [facility] ANIETY STAT NOS 300.00 Inactive 300.00 Jan 05, 2005 ALEXANDRA FLOREZ [facility] Bronchitis * (ICD-9-CM 490.) Inactive 490. Jan 05, 2005 [facility] Postsurgical Aortocoronary Bypass Status (ICD-9-CM V45.81) Inactive V45.81 Oct 05, 2006 SATHISH SCOTT [facility] Radiology Reports: +/- 30 days of the encounter No Data Provided for This Section Pathology Reports: +/- 30 days of the encounter No Data Provided for This Section Encounter Notes: All associated encounter notes No Data Provided for This Section
--- OUTSIDE RECORDS SUMMARY | 2019-08-20 00:52 | XMS REPORT | Encounter Summary ---
Author Author [facility] JUAN MANUEL posey Organization Department of [facility] Address [address] [place] [id number] Phone Unavailable Care Team Providers Care Rug Dyer Helper Name Role Phone BRITTANEY VILLEDA PCP Unavailable [...] PART B Apr 13, 2007 PART B [id number] [phone] MARTIN,GARY PATIENT MEDICARE (WNR) MEDICARE (M) PART B Apr 13, 2007 PART B [id number] JUAN MANUEL MARTIN PATIENT MEDICARE (WNR) MEDICARE (M) PART A Sep 10, 2005 PART A [id number] MARTIN,JUAN MANUEL PATIENT MEDICARE (WNR) MEDICARE (M) PART A Sep 10, 2005 PART A [id number] [phone] JUAN MANUEL MARTIN PATIENT MEDICARE (WNR) MEDICARE (M) PART A Sep 10, 2005 PART A [id number] JUAN MANUEL MARTIN PATIENT Selected Encounter This section includes the information on record at [place] for the Encounter. Date/Time Encounter Type Encounter Description Reason Provider Source Jan 28, 2019 12:00 AM Outpatient Encounter ADMIN PAT ACTIVTIES (MELANIE CUADRA) [facility] 15 [facility] Encounter Template Text not used by [place] Assessments - Encounter Diagnoses No Data Provided [...] Hematology Lab R esults on record with [place] for the patient. Radiology Reports and Pathology [...] % Jan 08, 2019 08:20 AM KO [facility] COMPREHENSIVE METABOLIC PA SUNI Specimen Type: [...] EGFR >60 Jan 08, 2019 08:20 AM [facility] LIPID PROFILE(HDL,TRIG,CHO L,LDL) Specimen Type: PLASMA Comment: [...] docume nt. The data comes from all [place] facilities. Date Advance Directives Provider Source Jan 02, 2018 ADVANCE DIRECTIVE DISCUSSION FLO KRUEGER CB Oct 17, 2000 ADVANCE DIRECTIVE EUNICE RODRIGUEZ [facility], [facility] 15 Allergies and Adverse Reactions (ADRs): All historical and current Section Date Range: From patient's date of to the date document was create d. This section includes Allergies and Adverse Reactions (ADR s) [facility] record with [facility] for the patient. The data comes from a ll [place] treatment facilities. It does not list Allergies/ADRs that were removed or entered in error. Some allergies/ADRs may be reported in t he Immunization section. Allergen Event Date Event Type Reaction(s) Severity Source No Known Allergies [facility] No Allergy Assessment on File [facility] Medications: [facility] dispensed (-15 months) and Non-VA Documented (Obtained Outside A) Section Date Range: 1) prescriptions processed by a VA pharmacy in the last 15 m ont, and 2) all medications recorded in the [place] medical record as "non-VA medic ations". Pharmacy terms refer to [place] pharmacy's work on prescriptions. [facility] patient s are advised to take their medications as instructed by their health care team. The data comes from all [place] treatment facilities. Glossary of Pharmacy Terms:Active = A prescription that can be filled at the local [place] pharmacy.Active: On Hold = An active prescription that will not be filled until pharmacy resolves the issue.Active: Susp = An active prescription that is not scheduled to be filled yet.Clinic Order = A medication received during a visit to a [place] clinic or emergency department (currently not available).Discontinued [...] A DAY NEEDED 180 Jan 09, 2020 [id number] Apr 10, 2019 MAK VILLEDA CBTERRENCE ALBUTEROL SO4 0.083% INHL,3ML Discontinued USE 3 MLS IN NEBULIZER FOR INHALATION TWO TIMES A DAY NEEDED 180 Jan 27, 2019 [id number] Nov 01, 2018 BRITTANEY VENEGAS ALBUTEROL SO4 90MCG/ACTUAT (CFC-F) INHL,ORAL,6.7GM Active INHALE 2 PUFFS BY ORAL INHALATION TWO TIMES A DAY NEEDED - RINSE MOUTHPIECE FREQUENTLY TO PREVENT CLOGGING 2 Aug 30, 2019 [id number] Mar 18, 2019 BRITTANEY VILLEDA ALBUTEROL SO4 90MCG/ACTUAT (CFC-F) INHL,ORAL,6.7GM Discontin ued INHALE 2 PUFFS BY ORAL INHALATION TWO TIMES A DAY NEEDED - RINSE MOUTHPIECE FREQUENTLY TO PREVENT CLOGGING 2 Mar 27, 2019 [id number] Aug 30, 2018 BRITTANEY VILLEDA BUDESONIDE 80MCG/FORMOTEROL FUM 4.5MCG/SPRAY INHL,ORAL,10.2G M Active INHALE 2 PUFFS BY ORAL INHALATION TWO TIMES A DAY FOR BREATHING. SHAKE WELL. RINSE MOUTH AND SPIT AFTER EACH USE. 3 Jun 24, 2020 [id number] Jun 24, 2019 BRITTANEY VILLEDA BUDESONIDE 80MCG/FORMOTEROL FUM 4.5MCG/SPRAY INHL,ORAL,10.2G M Discontinued INHALE 2 PUFFS BY ORAL INHALATION TWO TIMES A DAY FOR BREATHING. SHAKE WELL. RINSE MOUTH AND SPIT AFTER EACH USE. 3 Dec 07, 2019 [id number] Mar 18, 2019 BRITTANEY VILLEDA FERROUS SO4 324MG TAB,EC Active TAKE ONE TABLET BY MOUTH TWO TIMES A DAY FOR IRON SUPPLEMENTATION. MAY TAKE WITH FOOD IF NOT TOLERATED ON EMPTY STOMACH 200 Jan 09, 2020 [id number] Apr 23, 2019 BRITTANEY VILLEDA FERROUS SO4 324MG TAB,EC Discontinued TAKE ONE TABLET BY MOUTH TWO TIMES A DAY FOR IRON SUPPLEMENTATION. MAY TAKE WITH FOOD IF NOT TOLERATED ON EMPTY STOMACH 200 May 02, 2019 [id number] Nov 14, 2018 BRITTANEY VILLEDA C FOLIC ACID 1MG TAB Active TAKE ONE TABLET BY MOUTH ONCE A DAY 90 Nov 22, 2019 [id number] Mar 18, 2019 BRITTANEY VILLEDA FOLIC ACID 1MG TAB Discontinued TAKE ONE TABLET BY MOUTH ONCE A DAY 90 May 02, 2019 [id number] Sep 26, 2018 BRITTANEY VILLEDA GABAPENTIN 300MG CAP Discontinued TAKE 2 CAPSULES BY MOUTH FOUR TITO ES A DAY 720 Jan 27, 2019 [id number] Nov 14, 2018 BRITTANEY VILLEDA GABAPENTIN 400MG CAP Active TAKE 1 CAPSULE BY MOUTH THREE TITO ES A DAY 270 Dec 07, 2019 [id number] Mar 18, 2019 BRITTANEY VILLEDA HYDROCODONE 10MG/ACETAMINOPHEN 325MG TAB Non-VA TAKE ONE TABLET BY MOUTH FOUR TIMES A DAY Non-VA Documented by: RAMY TRENT nted at: STEFANI SPAIN LISINOPRIL 10MG TAB Discontinued TAKE ONE-HALF TABLET BY MOUTH EVERY MORNING FOR HEART OR HIGH BLOOD PRESSURE 15 Jun 01, 2019 [id number] Jun 02, 2018 BRITTANEY VILLEDA LOSARTAN 25MG TAB Active TAKE ONE TABLET BY MOUTH ONCE A DAY FOR BLOOD PRESSURE 90 Jan 09, 2020 [id number] Apr 23, 2019 BRITTANEY VILLEDA C LOSARTAN 25MG TAB Discontinued TAKE ONE TABLET BY M OUTH ONCE A DAY FOR BLOOD PRESSURE 90 July 13, 2019 [id number] Nov 14, 2018 TIERRA KWONG [facility] MELOXICAM 15MG TAB TAKE ONE TABLET BY M OUTH ONCE A DAY FOR PAIN OR INFLAMMATION. 90 Jun 01, 2019 [id number] Mar 18, 2019 BRITTANEY VILLEDA METOPROLOL TARTRATE 25MG TAB Active TAKE ONE-SMITH LF TABLET BY MOUTH TWO TIMES A DAY FOR HEART/BLOOD PRESSURE. TAKE WITH OR IMMEDIATELY FOLLOWING FOOD. 90 Jan 09, 2020 [id number] Apr 23, 2019 BRITTANEY VILLEDA METOPROLOL TARTRATE 25MG TAB Discontinued TAKE ONE-SMITH LF TABLET BY MOUTH TWO TIMES A DAY FOR HEART/BLOOD PRESSURE. TAKE WITH OR IMMEDIATELY FOLLOWING FOOD. 90 July 13, 2019 [id number] Nov 14, 2018 TIERRA KWONG ROSA BROWN [facility] SIMVASTATIN 40MG TAB Active TAKE ONE-HALF TABLE T BY MOUTH AT BEDTIME FOR CHOLESTEROL - REPORT ANY UNEXPLAINED MUSCLE PAIN OR WEAKNESS TO YOUR PROVIDER 45 Sep 27, 2019 [id number] Jun 24, 2019 BRITTANEY VILLEDA CBO C SIMVASTATIN 40MG TAB Discontinued TAKE ONE-HALF TABLE T BY MOUTH AT BEDTIME FOR CHOLESTEROL - REPORT ANY UNEXPLAINED MUSCLE PAIN OR WEAKNESS TO YOUR PROVIDER 45 Sep 23, 2018 [id number] Jul 05, 2018 BRITTANEY VILLEDA CBO C TAMSULOSIN HCL 0.4MG CAP Discontinued TAKE ONE CAPSUL E BY MOUTH ONCE A DAY FOR PROSTATE. TAKE AT THE SAME TIME EACH DAY WITH FOOD. 90 Jun 17 9 [id number] Jun 14, 2018 BRITTANEY VILLEDA TAMSULOSIN HCL 0.4MG CAP TAKE ONE CAPSUL E BY MOUTH ONCE A DAY FOR PROSTATE. TAKE AT THE SAME TIME EACH DAY WITH FOOD. 90 August 01 0 [id number] Jun 24, 2019 BRITTANEY VILLEDA TIOTROPIUM 2.5MCG/ACTUAT INHL,ORAL,60D,4GM Active INHALE 2 PUFFS BY ORAL INHALATION ONCE A DAY FOR BREATHING. DON'T USE WITH IPRATROPIUM - REPLACES ADVAIR. 3 Jun 24, 2020 [id number] Jun 24, 2019 BRITTANEY VILLEDA TIOTROPIUM 2.5MCG/ACTUAT INHL,ORAL,60D,4GM Discontinued INHALE 2 PUFFS BY ORAL INHALATION ONCE A DAY FOR BREATHING. DON'T USE WITH IPRATROPIUM - REPLACES ADVAIR. 3 Oct 13, 2019 [id number] Mar 18, 2019 BRITTANEY VILLEDA [facility] Problems (Conditions): All historical and current Section Date Range: From patient's date of to the date document was create d. This section includes a list of Problems (Conditions) know n to [place] for the patient. It includes both active and inacti ve problems (conditions). The data comes from all [place] treatment facilities. Problem Status Problem Code Date of Onset Date of Resolution Comm ent(s) Provider Source Actinic keratosis (SNOMED CT 350334804) Active 702.0 [facility] Alcohol Dependence * (ICD-9-CM 303.90/303.91) Active 303.90 ALEXANDRA KWONG [facility] Anemia Active 285.9 [facility] ANGINA PECTORIS NEC/NOS 413.9 Active 413.9 W ALEXANDRA DE JESUS [facility] Anxiety Disorder Active 300.00 AURELIANO LINCOLN MD [facility] Benign Neoplasm Skin Head, Neck, Scalp Active 216.4 RENALDO DACOSTA [facility] CABG Active 799.9 Oct 05, 2006 E ntered By: SATHISH SCOTT Comment: feb, 4-vessel SATHISH SCOTT [facility] Chest discomfort (SNOMED CT 105133107) Active 786.59 BRITTANEY VILLEDA [facility] Chronic airway obstruction, Not Elsewhere Classified Active 496. AURELIANO LINCOLN MD [facility] Chronic Low Back Pain Active 724.2 AURELIANO LINCOLN MD [facility] COPD * (ICD-9-CM 496.) Active 496. Robin SCOTT [facility] Coronary Artery Disease * (ICD-9-CM 414.9) Active 414.9 ALEXANDRA KWONG [facility] Coronary Atherosclerosis of [place] Coronary Vessel Active 414.01 August 03, 2010 Entered By: AURELIANO LINCOLN MD Comment: Bypass surgery AURELIANO LINCOLN MD [facility] Disorder of shoulder (SNOMED CT 584687394) Active 719.91 [facility] Essential Hypertension Active 401.9 AURELIANO LINCOLN MD [facility] Hyperlipidemia Active 272.4 SATHISH SCOTT [facility] HYPERTENSION NOS 401.9 Active 401.9 ALEXANDRA KWONG [facility] Impotence (SNOMED CT 216463585) Active 302.72 BRITTANEY VILLEDA [facility] 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 AURELIANO LIU MD [facility] Marijuana Dependence unspecified Active 304.30 AURELIANO LINCOLN MD [facility] Microscopic Hematuria (ICD-9-CM 599.72) Active 599.72 BEVERLY SALINAS [facility] Other and unspecified hyperlipidemia Active 272.4 AURELIANO LINCOLN MD [facility] Other, mixed, or unspecified drug abuse, continuous use Active 30 5.91 Jan 30, 2009 Entered By: SATHISH SCOTT Comment: urine drug screen positive for opitates and marijuannaMay 2009 Entered By: SATHISH SCOTT Comment: buying hydrocodone "off the street" SATHISH SCOTT [facility] Pain in joint involving ankle and foot (ICD-9-CM 719.47) Active 719 .47 SATHISH SCOTT [facility] Papular eruption (SNOMED CT 865130871) Active 709.8 BRITTANEY VILLEDA [facility] Personal History of Noncompliance with M edical Treatment, Presenting Hazards to Active V15.81 SATHISH SCOTT [facility] Tobacco dependence syndrome (SNOMED CT 57413217) Active [id number] July 24, 2009 Entered By: SATHISH SCOTT Comment: one ppd YUMI AVILA [facility] Transient Ischemic Attack * (ICD-9-CM 435.9) Active 435.9 SATHISH SCOTT [facility] ANIETY STAT NOS 300.00 Inactive 300.00 Jan 05, 2005 ALEXANDRA FLOREZ [facility] Bronchitis * (ICD-9-CM 490.) Inactive 490. Jan 05, 2005 BRITTANEY VILLEDA [facility] Postsurgical Aortocoronary Bypass Status (ICD-9-CM V45.81) Inactive V45.81 Oct 05, 2006 SATHISH SCOTT [facility] Radiology Reports: +/- 30 days of the encounter No Data Provided for This Section Pathology Reports: +/- 30 days of the encounter No Data Provided for This Section Encounter Notes: All associated encounter notes This section contains the clinical notes associated to the Encounter. Date/Time Encounter Note(s) Provider Source Jan 28, 2019 12:00 AM NONVA NOTE: LOCAL TITLE: [place]-NON-VA CARE (IDP) STANDARD TITLE: NONVA NOTE DATE OF NOTE: JAN 28, 2019 ENTRY DATE: FEB 27, 2019@14:05:06 AUTHOR: LEILANI MENDEZ EXP COSIGNER: URGENCY: STATUS: COMPLETED VistA Imaging - Scanned Document /es/ LEILANI MENDEZ [employer] Signed: 02/27/2019 14:05 LEILANI MENDEZ [facility]
--- OUTSIDE RECORDS SUMMARY | 2019-08-20 00:52 | XMS REPORT | Encounter Summary ---
Author Author Department [facility] JUAN MANUEL posey Organization [facility] Address [address] [place] [phone] Phone Unavailable Care Team Providers Care Warp Spooler Name Role Phone BRITTANEY VILLEDA PCP Unavailable [...] PART B Apr 13, 2007 PART B [id number] [phone] MARTIN,GARY PATIENT MEDICARE (WNR) MEDICARE (M) PART B Apr 13, 2007 PART B [id number] [phone] JUAN MANUEL MARTIN PATIENT MEDICARE (WNR) MEDICARE (M) PART A Sep 10, 2005 PART A [id number] MARTIN,JUAN MANUEL PATIENT MEDICARE (WNR) MEDICARE (M) PART A Sep 10, 2005 PART A [id number] [phone] JUAN MANUEL MARTIN PATIENT MEDICARE (WNR) MEDICARE (M) PART A Sep 10, 2005 PART A [id number] [phone] JUAN MANUEL MARTIN PATIENT Selected Encounter This section includes the information on record at [place] for the Encounter. Date/Time Encounter Type Encounter Description Reason Provider Source Jan 28, 2019 12:00 AM Outpatient Encounter EVENT (HISTORICAL) [facility], [facility] 15 IHE Encounter Template Text not used by [place] Assessments - Encounter Diagnoses No Data Provided [...] Hematology Lab R esults on record with [place] for the patient. Radiology Reports and Pathology [...] % Jan 08, 2019 08:20 AM KO [facility] COMPREHENSIVE METABOLIC PA SUNI Specimen Type: PLASMA [...] EGFR >60 Jan 08, 2019 08:20 AM [facility] LIPID PROFILE(HDL,TRIG,CHO L,LDL) Specimen Type: PLASMA Comment: [...] docume nt. The data comes from all [place] facilities. Date Advance Directives Provider Source Jan 02, 2018 ADVANCE DIRECTIVE DISCUSSION FLO KRUEGER CB Oct 17, 2000 ADVANCE DIRECTIVE EUNICE RODRIGUEZ [facility], [facility] 15 Allergies and Adverse Reactions (ADRs): All historical and current Section Date Range: From patient's date of to the date document was create d. This section includes Allergies and Adverse Reactions (ADR s) on record with [facility] for the patient. The data comes from a ll [place] treatment facilities. It does not list Allergies/ADRs that were removed or entered in error. Some allergies/ADRs may be reported in t he Immunization section. Allergen Event Date Event Type Reaction(s) Severity Source No Known Allergies [facility] No Allergy Assessment on File JEOVANNY MORGAN Medications: VA dispensed (-15 months) and Non-VA Documented (Obtained Outside A) Section Date Range: 1) prescriptions processed by a VA pharmacy in the last 15 m [facility], and 2) all medications recorded in the [place] medical record as "non-VA medic ations". Pharmacy terms refer to [place] pharmacy's work on prescriptions. [facility] patient s are advised to take their medications as instructed by their health care team. The data comes from all [place] treatment facilities. Glossary of Pharmacy Terms:Active = A prescription that can be filled at the local [place] pharmacy.Active: On Hold = An active prescription that will not be filled until pharmacy resolves the issue.Active: Susp = An active prescription that is not scheduled to be filled yet.Clinic Order = A medication received during a visit to a [place] clinic or emergency department (currently not available).Discontinued [...] A DAY NEEDED 180 Jan 09, 2020 [id number] Apr 10, 2019 MAK VILLEDA [facility] ALBUTEROL SO4 0.083% INHL,3ML Discontinued USE 3 MLS IN NEBULIZER FOR INHALATION TWO TIMES A DAY NEEDED 180 Jan 27, 2019 [id number] Nov 01, 2018 BRITTANEY VENEGAS ALBUTEROL SO4 90MCG/ACTUAT (CFC-F) INHL,ORAL,6.7GM Active INHALE 2 PUFFS BY ORAL INHALATION TWO TIMES A DAY NEEDED - RINSE MOUTHPIECE FREQUENTLY TO PREVENT CLOGGING 2 Aug 30, 2019 [id number] Mar 18, 2019 BRITTANEY VILLEDA CBTERRENCE ALBUTEROL SO4 90MCG/ACTUAT (CFC-F) INHL,ORAL,6.7GM Discontin ued INHALE 2 PUFFS BY ORAL INHALATION TWO TIMES A DAY NEEDED - RINSE MOUTHPIECE FREQUENTLY TO PREVENT CLOGGING 2 Mar 27, 2019 [id number] Aug 30, 2018 BRITTANEY VILLEDA BUDESONIDE 80MCG/FORMOTEROL FUM 4.5MCG/SPRAY INHL,ORAL,10.2G M Active INHALE 2 PUFFS BY ORAL INHALATION TWO TIMES A DAY FOR BREATHING. SHAKE WELL. RINSE MOUTH AND SPIT AFTER EACH USE. 3 Jun 24, 2020 [id number] Jun 24, 2019 BRITTANEY VILLEDA BUDESONIDE 80MCG/FORMOTEROL FUM 4.5MCG/SPRAY INHL,ORAL,10.2G M Discontinued INHALE 2 PUFFS BY ORAL INHALATION TWO TIMES A DAY FOR BREATHING. SHAKE WELL. RINSE MOUTH AND SPIT AFTER EACH USE. 3 Dec 07, 2019 [id number] Mar 18, 2019 BRITTANEY VILLEDA FERROUS SO4 324MG TAB,EC Active TAKE ONE TABLET BY MOUTH TWO TIMES A DAY FOR IRON SUPPLEMENTATION. MAY TAKE WITH FOOD IF NOT TOLERATED ON EMPTY STOMACH 200 Jan 09, 2020 [id number] Apr 23, 2019 BRITTANEY VILLEDA FERROUS SO4 324MG TAB,EC Discontinued TAKE ONE TABLET BY MOUTH TWO TIMES A DAY FOR IRON SUPPLEMENTATION. MAY TAKE WITH FOOD IF NOT TOLERATED ON EMPTY STOMACH 200 May 02, 2019 [id number] Nov 14, 2018 BRITTANEY VILLEDA C FOLIC ACID 1MG TAB Active TAKE ONE TABLET BY MOUTH ONCE A DAY 90 Nov 22, 2019 [id number] Mar 18, 2019 BRITTANEY VILLEDA FOLIC ACID 1MG TAB Discontinued TAKE ONE TABLET BY MOUTH ONCE A DAY 90 May 02, 2019 [id number] Sep 26, 2018 BRITTANEY VILLEDA GABAPENTIN 300MG CAP Discontinued TAKE 2 CAPSULES BY MOUTH FOUR TITO ES A DAY 720 Jan 27, 2019 [id number] Nov 14, 2018 BRITTANEY VILLEDA GABAPENTIN 400MG CAP Active TAKE 1 CAPSULE BY MOUTH THREE TITO ES A DAY 270 Dec 07, 2019 [id number] Mar 18, 2019 BRITTANEY VILLEDA HYDROCODONE 10MG/ACETAMINOPHEN 325MG TAB Non-VA TAKE ONE TABLET BY MOUTH FOUR TIMES A DAY Non-VA Documented by: RAMY TRENT nted at: STEFANI SPAIN LISINOPRIL 10MG TAB Discontinued TAKE ONE-HALF TABLET BY MOUTH EVERY MORNING FOR HEART OR HIGH BLOOD PRESSURE 15 Jun 01, 2019 [id number] Jun 02, 2018 BRITTANEY VILLEDA CBOC LOSARTAN 25MG TAB Active TAKE ONE TABLET BY MOUTH ONCE A DAY FOR BLOOD PRESSURE 90 Jan 09, 2020 [id number] Apr 23, 2019 BRITTANEY VILLEDA C LOSARTAN 25MG TAB Discontinued TAKE ONE TABLET BY M OUTH ONCE A DAY FOR BLOOD PRESSURE 90 July 13, 2019 [id number] Nov 14, 2018 TIERRA KWONG [facility] MELOXICAM 15MG TAB TAKE ONE TABLET BY M OUTH ONCE A DAY FOR PAIN OR INFLAMMATION. 90 Jun 01, 2019 [id number] Mar 18, 2019 BRITTANEY VILLEDA METOPROLOL TARTRATE 25MG TAB Active TAKE ONE-SMITH LF TABLET BY MOUTH TWO TIMES A DAY FOR HEART/BLOOD PRESSURE. TAKE WITH OR IMMEDIATELY FOLLOWING FOOD. 90 Jan 09, 2020 [id number] Apr 23, 2019 BRITTANEY VILLEDA METOPROLOL TARTRATE 25MG TAB Discontinued TAKE ONE-SMITH LF TABLET BY MOUTH TWO TIMES A DAY FOR HEART/BLOOD PRESSURE. TAKE WITH OR IMMEDIATELY FOLLOWING FOOD. 90 July 13, 2019 [id number] Nov 14, 2018 TIERRA KWONG Enrrique BROWN [facility] SIMVASTATIN 40MG TAB Active TAKE ONE-HALF TABLE T BY MOUTH AT BEDTIME FOR CHOLESTEROL - REPORT ANY UNEXPLAINED MUSCLE PAIN OR WEAKNESS TO YOUR PROVIDER 45 Sep 27, 2019 [id number] Jun 24, 2019 BRITTANEY VILLEDA C SIMVASTATIN 40MG TAB Discontinued TAKE ONE-HALF TABLE T BY MOUTH AT BEDTIME FOR CHOLESTEROL - REPORT ANY UNEXPLAINED MUSCLE PAIN OR WEAKNESS TO YOUR PROVIDER 45 Sep 23, 2018 [id number] Jul 05, 2018 BRITTANEY VILLEDA CBO C TAMSULOSIN HCL 0.4MG CAP Discontinued TAKE ONE CAPSUL E BY MOUTH ONCE A DAY FOR PROSTATE. TAKE AT THE SAME TIME EACH DAY WITH FOOD. 90 Jun 17 9 [id number] Jun 14, 2018 BRITTANEY VILLEDA TAMSULOSIN HCL 0.4MG CAP TAKE ONE CAPSUL E BY MOUTH ONCE A DAY FOR PROSTATE. TAKE AT THE SAME TIME EACH DAY WITH FOOD. 90 August 01 0 [id number] Jun 24, 2019 BRITTANEY VILLEDA TIOTROPIUM 2.5MCG/ACTUAT INHL,ORAL,60D,4GM Active INHALE 2 PUFFS BY ORAL INHALATION ONCE A DAY FOR BREATHING. DON'T USE WITH IPRATROPIUM - REPLACES ADVAIR. 3 Jun 24, 2020 [id number] Jun 24, 2019 BRITTANEY VILLEDA TIOTROPIUM 2.5MCG/ACTUAT INHL,ORAL,60D,4GM Discontinued INHALE 2 PUFFS BY ORAL INHALATION ONCE A DAY FOR BREATHING. DON'T USE WITH IPRATROPIUM - REPLACES ADVAIR. 3 Oct 13, 2019 [id number] Mar 18, 2019 BRITTANEY VILLEDA Problems (Conditions): All historical and current Section Date Range: From patient's date of to the date document was create d. This section includes a list of Problems (Conditions) know n to [place] for the patient. It includes both active and inacti ve problems (conditions). The data comes from all [place] treatment facilities. Problem Status Problem Code Date of Onset Date of Resolution Comm ent(s) Provider Source Actinic keratosis (SNOMED CT 280946527) Active 702.0 BRITTANEY VILLEDA [facility] Alcohol Dependence * (ICD-9-CM 303.90/303.91) Active 303.90 [facility] Anemia Active 285.9 SATHISH SCOTT [facility] ANGINA PECTORIS NEC/NOS 413.9 Active 413.9 W SOHEILABERNARDALEXANDRA DESOUZA [facility] Anxiety Disorder Active 300.00 AURELIANO LINCOLN MD [facility] Benign Neoplasm Skin Head, Neck, Scalp Active 216.4 RENALDO DACOSTA [facility] CABG Active 799.9 Oct 05, 2006 E ntered By: SATHISH SCOTT Comment: feb, 4-vessel SATHISH SCOTT [facility] Chest discomfort (SNOMED CT 968310910) Active 786.59 BRITTANEY VILLEDA [facility] Chronic airway obstruction, Not Elsewhere Classified Active 496. AURELIANO LINCOLN MD [facility] Chronic Low Back Pain Active 724.2 AUERLIANO LINCOLN MD [facility] COPD * (ICD-9-CM 496.) Active 496. Robin SCOTT [facility] Coronary Artery Disease * (ICD-9-CM 414.9) Active 414.9 ALEXANDRA KWONG [facility] Coronary Atherosclerosis of [place] Coronary Vessel Active 414.01 August 03, 2010 Entered By: AURELIANO LINCOLN MD Comment: Bypass surgery AURELIANO LINCOLN MD [facility] Disorder of shoulder (SNOMED CT 240269778) Active 719.91 [facility] Essential Hypertension Active 401.9 AURELIANO LINCOLN MD [facility] Hyperlipidemia Active 272.4 SATHISH SCOTT [facility] HYPERTENSION NOS 401.9 Active 401.9 ALEXANDRA KWONG [facility] Impotence (SNOMED CT 032213034) Active 302.72 BRITTANEY VILLEDA [facility] 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 AURELIANO LIU MD [facility] Marijuana Dependence unspecified Active 304.30 AURELIANO LINCOLN MD [facility] Microscopic Hematuria (ICD-9-CM 599.72) Active 599.72 BEVERLY SALINAS [facility] Other and unspecified hyperlipidemia Active 272.4 AURELIANO LINCOLN MD [facility] Other, mixed, or unspecified drug abuse, continuous use Active 30 5.91 Jan 30, 2009 Entered By: SATHISH SCOTT Comment: urine drug screen positive for opitates and marijuannaMay 2009 Entered By: SATHISH SCOTT Comment: buying hydrocodone "off the street" SATHISH SCOTT [facility] Pain in joint involving ankle and foot (ICD-9-CM 719.47) Active 719 .47 [facility]OTT [facility] Papular eruption (SNOMED CT 765516125) Active 709.8 BRITTANEY [facility]ILLEDA [facility] Personal History of Noncompliance with M edical Treatment, Presenting Hazards to Active V15.81 SATHISH SCOTT [facility] Tobacco dependence syndrome (SNOMED CT 36002610) Active [id number] July 24, 2009 Entered By: SATHISH SCOTT Comment: one YUMI Gibbons [facility] Transient Ischemic Attack * (ICD-9-CM 435.9) Active 435.9 SATHISH SCOTT [facility] ANIETY STAT NOS 300.00 Inactive 300.00 Jan 05, 2005 ALEXANDRA FLOREZ [facility] Bronchitis * (ICD-9-CM 490.) Inactive 490. Jan 05, 2005 BRITTANEY [facility]ILLEDA [facility] Postsurgical Aortocoronary Bypass Status (ICD-9-CM V45.81) Inactive V45.81 Oct 05, 2006 SATHISH SCOTT [facility] Radiology Reports: +/- 30 days of the encounter No Data Provided for This Section Pathology Reports: +/- 30 days of the encounter No Data Provided for This Section Encounter Notes: All associated encounter notes No Data Provided for This Section
--- OUTSIDE RECORDS SUMMARY | 2019-08-20 00:52 | XMS REPORT | Encounter Summary ---
Author Author [facility] JUAN MANUEL posey Organization [facility] Address [address] [place] [phone] Phone Unavailable Care Team Providers Care Retail Wireless Sales Consultant Name Role Phone BRITTANEY VILLEDA PCP Unavailable [...] PART B Apr 13, 2007 PART B [id number] [phone] MARTINJUAN MANUEL PATIENT MEDICARE (WNR) MEDICARE (M) PART B Apr 13, 2007 PART B [id number] JUAN MANUEL MARTIN PATIENT MEDICARE (WNR) MEDICARE (M) PART A Sep 10, 2005 PART A [id number] MARTIN,JUAN MANUEL PATIENT MEDICARE (WNR) MEDICARE (M) PART A Sep 10, 2005 PART A [id number] [phone] JUAN MANUEL MARTIN PATIENT MEDICARE (WNR) MEDICARE (M) PART A Sep 10, 2005 PART A [id number] JUAN MANUEL MARTIN PATIENT Selected Encounter This section includes the information on record at [place] for the Encounter. Date/Time Encounter Type Encounter Description Reason Provider Source Feb 04, 2019 12:00 AM Outpatient Encounter EVENT (HISTORICAL) [facility], [facility] 15 IHE Encounter Template Text not [...] % Jan 08, 2019 08:20 AM KO [facility] COMPREHENSIVE METABOLIC PA SUNI Specimen Type: [...] >60 Jan 08, 2019 08:20 AM KO [facility] LIPID PROFILE(HDL,TRIG,CHO L,LDL) Specimen Type: PLASMA Comment: For eGFR: eGFR results >60 are imprecise. Many variables affect the calculated result. Interpretation of eGFR results >60 must be monitored over time. CHOLESTEROL 145 mg/dL 0-200 TRIGS 74 mg/dL 0-150 HDL-CHOLESTEROL 62 mg/dL >40 LDL (CALC) 68 mg/dL 0-99.9 Jan 08, 2019 08:[address] [facility] TSH Specimen Type: SERUM No comment entered. TSH 1.90 uIU/mL 0.47-5.00 Jan 08, 2019 08:[address] [facility] PROSTATIC SPECIFIC ANTIGEN (TOTAL) Specimen Type: SERUM [...] ADVANCE DIRECTIVE DISCUSSION FLO KRUEGER [facility] Oct 17, 2000 ADVANCE DIRECTIVE EUNICE RODRIGUEZ [facility], [facility] 15 Allergies and Adverse [...] Type Reaction(s) Severity Source No Known Allergies [facility] No Allergy Assessment on File [facility] Medications: VA dispensed [...] A DAY NEEDED 180 Jan 09, 2020 [id number] Apr 10, 2019 MAK VILLEDA CBTERRENCE ALBUTEROL SO4 0.083% INHL,3ML Discontinued USE 3 MLS IN NEBULIZER FOR INHALATION TWO TIMES A DAY NEEDED 180 Jan 27, 2019 [id number] Nov 01, 2018 BRITTANEY VENEGAS CBTERRENCE ALBUTEROL SO4 90MCG/ACTUAT (CFC-F) INHL,ORAL,6.7GM Active INHALE 2 PUFFS BY ORAL INHALATION TWO TIMES A DAY NEEDED - RINSE MOUTHPIECE FREQUENTLY TO PREVENT CLOGGING 2 Aug 30, 2019 [id number] Mar 18, 2019 BRITTANEY VILLEDA ALBUTEROL SO4 90MCG/ACTUAT (CFC-F) INHL,ORAL,6.7GM Discontin ued INHALE 2 PUFFS BY ORAL INHALATION TWO TIMES A DAY NEEDED - RINSE MOUTHPIECE FREQUENTLY TO PREVENT CLOGGING 2 Mar 27, 2019 [id number] Aug 30, 2018 BRITTANEY VILLEDA CBTERRENCE BUDESONIDE 80MCG/FORMOTEROL FUM 4.5MCG/SPRAY INHL,ORAL,10.2G M Active INHALE 2 PUFFS BY ORAL INHALATION TWO TIMES A DAY FOR BREATHING. SHAKE WELL. RINSE MOUTH AND SPIT AFTER EACH USE. 3 Jun 24, 2020 [id number] Jun 24, 2019 BRITTANEY VILLEDA BUDESONIDE 80MCG/FORMOTEROL FUM 4.5MCG/SPRAY INHL,ORAL,10.2G M Discontinued INHALE 2 PUFFS BY ORAL INHALATION TWO TIMES A DAY FOR BREATHING. SHAKE WELL. RINSE MOUTH AND SPIT AFTER EACH USE. 3 Dec 07, 2019 [id number] Mar 18, 2019 BRITTANEY VILLEDA FERROUS SO4 324MG TAB,EC Active TAKE ONE TABLET BY MOUTH TWO TIMES A DAY FOR IRON SUPPLEMENTATION. MAY TAKE WITH FOOD IF NOT TOLERATED ON EMPTY STOMACH 200 Jan 09, 2020 [id number] Apr 23, 2019 BRITTANEY VILLEDA FERROUS SO4 324MG TAB,EC Discontinued TAKE ONE TABLET BY MOUTH TWO TIMES A DAY FOR IRON SUPPLEMENTATION. MAY TAKE WITH FOOD IF NOT TOLERATED ON EMPTY STOMACH 200 May 02, 2019 [id number] Nov 14, 2018 BRITTANEY VILLEDA CBO C FOLIC ACID 1MG TAB Active TAKE ONE TABLET BY MOUTH ONCE A DAY 90 Nov 22, 2019 [id number] Mar 18, 2019 BRITTANEY VILLEDA FOLIC ACID 1MG TAB Discontinued TAKE ONE TABLET BY MOUTH ONCE A DAY 90 May 02, 2019 [id number] Sep 26, 2018 BRITTANEY VILLEDA GABAPENTIN 300MG CAP Discontinued TAKE 2 CAPSULES BY MOUTH FOUR TITO ES A DAY 720 Jan 27, 2019 [id number] Nov 14, 2018 BRITTANEY VILLEDA [facility] GABAPENTIN 400MG CAP Active TAKE 1 CAPSULE BY MOUTH THREE TITO ES A DAY 270 Dec 07, 2019 [id number] Mar 18, 2019 BRITTANEY VILLEDA HYDROCODONE 10MG/ACETAMINOPHEN 325MG TAB Non-VA TAKE ONE TABLET BY MOUTH FOUR TIMES A DAY Non-VA Documented by: RAMY TRENT nted at: STEFANI SPAIN LISINOPRIL 10MG TAB Discontinued TAKE ONE-HALF TABLET BY MOUTH EVERY MORNING FOR HEART OR HIGH BLOOD PRESSURE 15 Jun 01, 2019 [id number] Jun 02, 2018 BRITTANEY VILLEDA LOSARTAN 25MG TAB Active TAKE ONE TABLET BY MOUTH ONCE A DAY FOR BLOOD PRESSURE 90 Jan 09, 2020 [id number] Apr 23, 2019 BRITTANEY VILLEDA CBO C LOSARTAN 25MG TAB Discontinued TAKE ONE TABLET BY M OUTH ONCE A DAY FOR BLOOD PRESSURE 90 July 13, 2019 [id number] Nov 14, 2018 TIERRA KWONG [facility] MELOXICAM 15MG TAB TAKE ONE TABLET BY M OUTH ONCE A DAY FOR PAIN OR INFLAMMATION. 90 Jun 01, 2019 [id number] Mar 18, 2019 BRITTANEY VILLEDA METOPROLOL TARTRATE 25MG TAB Active TAKE ONE-SMITH LF TABLET BY MOUTH TWO TIMES A DAY FOR HEART/BLOOD PRESSURE. TAKE WITH OR IMMEDIATELY FOLLOWING FOOD. 90 Jan 09, 2020 [id number] Apr 23, 2019 BRITTANEY VILLEDA METOPROLOL TARTRATE 25MG TAB Discontinued TAKE ONE-SMIHT LF TABLET BY MOUTH TWO TIMES A DAY FOR HEART/BLOOD PRESSURE. TAKE WITH OR IMMEDIATELY FOLLOWING FOOD. 90 July 13, 2019 [id number] Nov 14, 2018 [facility] SIMVA[facility] 40MG TAB Active TAKE ONE-HALF TABLE T BY MOUTH AT BEDTIME FOR CHOLESTEROL - REPORT ANY UNEXPLAINED MUSCLE PAIN OR WEAKNESS TO YOUR PROVIDER 45 Sep 27, 2019 [id number] Jun 24, 2019 BRITTANEY VILLEDA CBO C SIMVASTATIN 40MG TAB Discontinued TAKE ONE-HALF TABLE T BY MOUTH AT BEDTIME FOR CHOLESTEROL - REPORT ANY UNEXPLAINED MUSCLE PAIN OR WEAKNESS TO YOUR PROVIDER 45 Sep 23, 2018 [id number] Jul 05, 2018 BRITTANEY VILLEDA C TAMSULOSIN HCL 0.4MG CAP Discontinued TAKE ONE CAPSUL E BY MOUTH ONCE A DAY FOR PROSTATE. TAKE AT THE SAME TIME EACH DAY WITH FOOD. 90 Jun 17 9 [id number] Jun 14, 2018 BRITTANEY VILLEDA TAMSULOSIN HCL 0.4MG CAP TAKE ONE CAPSUL E BY MOUTH ONCE A DAY FOR PROSTATE. TAKE AT THE SAME TIME EACH DAY WITH FOOD. 90 August 01 0 [id number] Jun 24, 2019 BRITTANEY VILLEDA TIOTROPIUM 2.5MCG/ACTUAT INHL,ORAL,60D,4GM Active INHALE 2 PUFFS BY ORAL INHALATION ONCE A DAY FOR BREATHING. DON'T USE WITH IPRATROPIUM - REPLACES ADVAIR. 3 Jun 24, 2020 [id number] Jun 24, 2019 BRITTANEY VILLEDA [facility] TIOTROPIUM 2.5MCG/ACTUAT INHL,ORAL,60D,4GM Discontinued INHALE 2 PUFFS BY ORAL INHALATION ONCE A DAY FOR BREATHING. DON'T USE WITH IPRATROPIUM - REPLACES ADVAIR. 3 Oct 13, 2019 [id number] Mar 18, 2019 BRITTANEY VILLEDA [facility] Problems (Conditions): All historical and current [...] ent(s) Provider Source Actinic keratosis (SNOMED CT 084241511) Active 702.0 BRITTANEY VILLEDA [facility] Alcohol Dependence * (ICD-9-CM 303.90/303.91) Active 303.90 ALEXANDRA KWONG [facility] Anemia Active 285.9 [facility] ANGINA PECTORIS NEC/NOS 413.9 Active 413.9 [facility] Anxiety Disorder Active 300.00 AURELIANO LINCOLN MD [facility] Benign Neoplasm Skin Head, Neck, Scalp Active 216.4 RENALDO DACOSTA [facility] CABG Active 799.9 Oct 05, 2006 E ntered By: SATHISH SCOTT Comment: feb, 4-vessel SATHISH SCOTT [facility] Chest discomfort (SNOMED CT 958948392) Active 786.59 BRITTANEY VILLEDA [facility] Chronic airway obstruction, Not Elsewhere Classified Active 496. AURELIANO LINCOLN MD [facility] Chronic Low Back Pain Active 724.2 AURELIANO LINCOLN MD [facility] COPD * (ICD-9-CM 496.) Active 496. Robin SC[facility] Coronary Artery Disease * (ICD-9-CM 414.9) Active 414.9 [facility]DRA KWONG [facility] Coronary Atherosclerosis of [place] Coronary Vessel Active 414.01 August 03, 2010 Entered By: AURELIANO LINCOLN MD Comment: Bypass surgery AURELIANO LINCOLN MD [facility] Disorder of shoulder (SNOMED CT 579758017) Active 719.91 BRITTANEY VILLEDA [facility] Essential Hypertension Active 401.9 AURELIANO LINCOLN MD 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 Marijuana Dependence unspecified Active 304.30 AURELIANO LINCOLN MD [facility] Microscopic Hematuria (ICD-9-CM 599.72) Active 599.72 [facility] Other and unspecified hyperlipidemia Active 272.4 AURELIANO LINCOLN MD [facility] Other, mixed, or unspecified drug abuse, continuous use Active 30 5.91 Jan 30, 2009 Entered By: SATHISH SCOTT Comment: urine drug screen positive for opitates and marijuannaMay 2009 Entered By: SATHISH SCOTT Comment: buying hydrocodone "off the street" SATHISH SCOTT [facility] Pain in joint involving ankle and foot (ICD-9-CM 719.47) Active 719 .47 SATHISH SCOTT [facility] Papular eruption (SNOMED CT 793934780) Active 709.8 BRITTANEY VILLEDA [facility] Personal History of Noncompliance with M edical Treatment, Presenting Hazards to Active V15.81 SATHISH SCOTT [facility] Tobacco dependence syndrome (SNOMED CT 06971914) Active [id number] July 24, 2009 Entered By: SATHISH SCOTT Comment: one ppd YUMI AVILA [facility] Transient Ischemic Attack * (ICD-9-CM 435.9) Active 435.9 SATHISH SCOTT [facility] ANIETY STAT NOS 300.00 Inactive 300.00 Jan 05, 2005 ALEXANDRA FLOREZ [facility] Bronchitis * (ICD-9-CM 490.) Inactive 490. Jan 05, 2005 BRITTANEY VILLEDA [facility] Postsurgical Aortocoronary Bypass Status (ICD-9-CM V45.81) Inactive V45.81 Oct 05, 2006 SATHISH SCOTT Can [facility] Radiology Reports: +/- 30 days of the encounter No Data Provided for This Section Pathology Reports: +/- 30 days of the encounter No Data Provided for This Section Encounter Notes: All associated encounter notes No Data Provided for This Section
--- OUTSIDE RECORDS SUMMARY | 2019-08-20 00:52 | XMS REPORT | Encounter Summary ---
Author Author [facility] JUAN MANUEL posey Organization Department of [facility] Address [address] [place] [id number] Phone Unavailable Care Team Providers Care Checkman Name Role Phone BRITTANEY VILLEDA PCP Unavailable [...] PART B Apr 13, 2007 PART B [id number] [phone] MARTINJUAN MANUEL PATIENT MEDICARE (WNR) MEDICARE (M) PART B Apr 13, 2007 PART B [id number] JUAN MANUEL MARTIN PATIENT MEDICARE (WNR) MEDICARE (M) PART A Sep 10, 2005 PART A [id number] MARTIN,JUAN MANUEL PATIENT MEDICARE (WNR) MEDICARE (M) PART A Sep 10, 2005 PART A [id number] [phone] JUAN MANUEL MARTIN PATIENT MEDICARE (WNR) MEDICARE (M) PART A Sep 10, 2005 PART A [id number] JUAN MANUEL MARTIN PATIENT Selected Encounter This section includes the information on record at [place] for the Encounter. Date/Time Encounter Type Encounter Description Reason Provider Source Jan 27, 2019 12:00 AM Outpatient Encounter EVENT (HISTORICAL) [facility] 15 IHE Encounter Template Text not used by [place] Assessments - Encounter Diagnoses No Data Provided [...] Jan 08, 2019 08:20 AM KO [facility] COMPREHENSIVE METABOLIC PA SUNI Specimen Type: [...] >60 Jan 08, 2019 08:20 AM KO [facility] LIPID PROFILE(HDL,TRIG,CHO L,LDL) Specimen Type: PLASMA [...] of a patient's completed or amen ded [place] Advance and Rescinded Directives. The entries below indicate that a direc tive exists for the patient, but an actual copy is not included with this docume nt. The data comes from all [place] facilities. Date Advance Directives Provider Source Jan 02, 2018 ADVANCE DIRECTIVE DISCUSSION FLO KRUEGER [facility] Oct 17, 2000 ADVANCE DIRECTIVE EUNICE RODRIGUEZ [facility], [facility] 15 Allergies and Adverse Reactions (ADRs): All historical and current Section Date Range: From patient's date of to the date document was create d. This section includes Allergies and Adverse Reactions (ADR s) on record with VA for the patient. The data comes from a ll [place] treatment facilities. It does not list Allergies/ADRs that were removed or entered in error. Some allergies/ADRs may be reported in t he Immunization section. Allergen Event Date Event Type Reaction(s) Severity Source No Known Allergies [facility] No Allergy Assessment on File [facility] Medications: VA dispensed (-15 months) and Non-VA Documented (Obtained Outside V A) Section Date Range: 1) prescriptions processed by a VA pharmacy in the last 15 m ont, and 2) all medications recorded in the [place] medical record as "non-VA medic ations". Pharmacy terms refer to [place] pharmacy's work on prescriptions. VA patient s are advised to take their medications as instructed by their health care team. The data comes from all [place] treatment facilities. Glossary of Pharmacy Terms:Active = A prescription that can be filled at the local [place] pharmacy.Active: On Hold = An active prescription that will not be filled until pharmacy resolves the issue.Active: Susp = An active prescription that is not scheduled to be filled yet.Clinic Order = A medication received during a visit to a [place] clinic or emergency department (currently not available).Discontinued [...] A DAY NEEDED 180 Jan 09, 2020 [id number] Apr 10, 2019 MAK VILLEDA CBTERRENCE ALBUTEROL SO4 0.083% INHL,3ML Discontinued USE 3 MLS IN NEBULIZER FOR INHALATION TWO TIMES A DAY NEEDED 180 Jan 27, 2019 [id number] Nov 01, 2018 BRITTANEY VENEGAS ALBUTEROL SO4 90MCG/ACTUAT (CFC-F) INHL,ORAL,6.7GM Active INHALE 2 PUFFS BY ORAL INHALATION TWO TIMES A DAY NEEDED - RINSE MOUTHPIECE FREQUENTLY TO PREVENT CLOGGING 2 Aug 30, 2019 [id number] Mar 18, 2019 BRITTANEY VILLEDA ALBUTEROL SO4 90MCG/ACTUAT (CFC-F) INHL,ORAL,6.7GM Discontin ued INHALE 2 PUFFS BY ORAL INHALATION TWO TIMES A DAY NEEDED - RINSE MOUTHPIECE FREQUENTLY TO PREVENT CLOGGING 2 Mar 27, 2019 [id number] Aug 30, 2018 BRITTANEY VILLEDA BUDESONIDE 80MCG/FORMOTEROL FUM 4.5MCG/SPRAY INHL,ORAL,10.2G M Active INHALE 2 PUFFS BY ORAL INHALATION TWO TIMES A DAY FOR BREATHING. SHAKE WELL. RINSE MOUTH AND SPIT AFTER EACH USE. 3 Jun 24, 2020 [id number] Jun 24, 2019 BRITTANEY VILLEDA BUDESONIDE 80MCG/FORMOTEROL FUM 4.5MCG/SPRAY INHL,ORAL,10.2G M Discontinued INHALE 2 PUFFS BY ORAL INHALATION TWO TIMES A DAY FOR BREATHING. SHAKE WELL. RINSE MOUTH AND SPIT AFTER EACH USE. 3 Dec 07, 2019 [id number] Mar 18, 2019 BRITTANEY VILLEDA FERROUS SO4 324MG TAB,EC Active TAKE ONE TABLET BY MOUTH TWO TIMES A DAY FOR IRON SUPPLEMENTATION. MAY TAKE WITH FOOD IF NOT TOLERATED ON EMPTY STOMACH 200 Jan 09, 2020 [id number] Apr 23, 2019 BRITTANEY VILLEDA FERROUS SO4 324MG TAB,EC Discontinued TAKE ONE TABLET BY MOUTH TWO TIMES A DAY FOR IRON SUPPLEMENTATION. MAY TAKE WITH FOOD IF NOT TOLERATED ON EMPTY STOMACH 200 May 02, 2019 [id number] Nov 14, 2018 BRITTANEY VILLEDA C FOLIC ACID 1MG TAB Active TAKE ONE TABLET BY MOUTH ONCE A DAY 90 Nov 22, 2019 [id number] Mar 18, 2019 BRITTANEY VILLEDA FOLIC ACID 1MG TAB Discontinued TAKE ONE TABLET BY MOUTH ONCE A DAY 90 May 02, 2019 [id number] Sep 26, 2018 BRITTANEY VILLEDA GABAPENTIN 300MG CAP Discontinued TAKE 2 CAPSULES BY MOUTH FOUR TITO ES A DAY 720 Jan 27, 2019 [id number] Nov 14, 2018 BRITTANEY VILLEDA GABAPENTIN 400MG CAP Active TAKE 1 CAPSULE BY MOUTH THREE TITO ES A DAY 270 Dec 07, 2019 [id number] Mar 18, 2019 BRITTANEY VILLEDA HYDROCODONE 10MG/ACETAMINOPHEN 325MG TAB Non-VA TAKE ONE TABLET BY MOUTH FOUR TIMES A DAY Non-VA Documented by: RAMY TRENT nted at: STEFANI SPAIN LISINOPRIL 10MG TAB Discontinued TAKE ONE-HALF TABLET BY MOUTH EVERY MORNING FOR HEART OR HIGH BLOOD PRESSURE 15 Jun 01, 2019 [id number] Jun 02, 2018 BRITTANEY VILLEDA LOSARTAN 25MG TAB Active TAKE ONE TABLET BY MOUTH ONCE A DAY FOR BLOOD PRESSURE 90 Jan 09, 2020 [id number] Apr 23, 2019 BRITTANEY VILLEDA C LOSARTAN 25MG TAB Discontinued TAKE ONE TABLET BY M OUTH ONCE A DAY FOR BLOOD PRESSURE 90 July 13, 2019 [id number] Nov 14, 2018 TIERRA KWONG [facility] MELOXICAM 15MG TAB TAKE ONE TABLET BY M OUTH ONCE A DAY FOR PAIN OR INFLAMMATION. 90 Jun 01, 2019 [id number] Mar 18, 2019 BRITTANEY VILLEDA METOPROLOL TARTRATE 25MG TAB Active TAKE ONE-SMITH LF TABLET BY MOUTH TWO TIMES A DAY FOR HEART/BLOOD PRESSURE. TAKE WITH OR IMMEDIATELY FOLLOWING FOOD. 90 Jan 09, 2020 [id number] Apr 23, 2019 BRITTANEY VILLEDA METOPROLOL TARTRATE 25MG TAB Discontinued TAKE ONE-SMITH LF TABLET BY MOUTH TWO TIMES A DAY FOR HEART/BLOOD PRESSURE. TAKE WITH OR IMMEDIATELY FOLLOWING FOOD. 90 July 13, 2019 [id number] Nov 14, 2018 TIERRA KWONG PREETHI BROWN [facility] SIMVASTATIN 40MG TAB Active TAKE ONE-HALF TABLE T BY MOUTH AT BEDTIME FOR CHOLESTEROL - REPORT ANY UNEXPLAINED MUSCLE PAIN OR WEAKNESS TO YOUR PROVIDER 45 Sep 27, 2019 [id number] Jun 24, 2019 BRITTANEY VILLEDA C SIMVASTATIN 40MG TAB Discontinued TAKE ONE-HALF TABLE T BY MOUTH AT BEDTIME FOR CHOLESTEROL - REPORT ANY UNEXPLAINED MUSCLE PAIN OR WEAKNESS TO YOUR PROVIDER 45 Sep 23, 2018 [id number] Jul 05, 2018 BRITTANEY VILLEDA C TAMSULOSIN HCL 0.4MG CAP Discontinued TAKE ONE CAPSUL E BY MOUTH ONCE A DAY FOR PROSTATE. TAKE AT THE SAME TIME EACH DAY WITH FOOD. 90 Jun 17 9 [id number] Jun 14, 2018 BRITTANEY VILLEDA TAMSULOSIN HCL 0.4MG CAP TAKE ONE CAPSUL E BY MOUTH ONCE A DAY FOR PROSTATE. TAKE AT THE SAME TIME EACH DAY WITH FOOD. 90 August 01 0 [id number] Jun 24, 2019 BRITTANEY VILLEDA TIOTROPIUM 2.5MCG/ACTUAT INHL,ORAL,60D,4GM Active INHALE 2 PUFFS BY ORAL INHALATION ONCE A DAY FOR BREATHING. DON'T USE WITH IPRATROPIUM - REPLACES ADVAIR. 3 Jun 24, 2020 [id number] Jun 24, 2019 BRITTANEY VILLEDA TIOTROPIUM 2.5MCG/ACTUAT INHL,ORAL,60D,4GM Discontinued INHALE 2 PUFFS BY ORAL INHALATION ONCE A DAY FOR BREATHING. DON'T USE WITH IPRATROPIUM - REPLACES ADVAIR. 3 Oct 13, 2019 [id number] Mar 18, 2019 BRITTANEY VILLEDA Problems (Conditions): All historical and current Section Date Range: From patient's date of to the date document was create d. This section includes a list of Problems (Conditions) know n to [place] for the patient. It includes both active and inacti ve problems (conditions). The data comes from all [place] treatment facilities. Problem Status Problem Code Date of Onset Date of Resolution Comm ent(s) Provider Source Actinic keratosis (SNOMED CT 367201209) Active 702.0 BRITTANEY VILLEDA [facility] Alcohol Dependence * (ICD-9-CM 303.90/303.91) Active 303.90 ALEXANDRA KWONG [facility] Anemia Active 285.9 [facility] ANGINA PECTORIS NEC/NOS 413.9 Active 413.9 W ALEXANDRA DE JESUS [facility] Anxiety Disorder Active 300.00 AURELIANO LINCOLN MD [facility] Benign Neoplasm Skin Head, Neck, Scalp Active 216.4 RENALDO DACOSTA [facility] CABG Active 799.9 Oct 05, 2006 E ntered By: SATHISH SCOTT Comment: feb, 4-vessel SATHISH SCOTT [facility] Chest discomfort (SNOMED CT 845585994) Active 786.59 BRITTANEY VILLEDA [facility] Chronic airway obstruction, Not Elsewhere Classified Active 496. AURELIANO LINCOLN MD [facility] Chronic Low Back Pain Active 724.2 AURELIANO LINCOLN MD [facility] COPD * (ICD-9-CM 496.) Active 496. Robin SCOTT [facility] Coronary Artery Disease * (ICD-9-CM 414.9) Active 414.9 ALEXANDRA KWONG [facility] Coronary Atherosclerosis of [place] Coronary Vessel Active 414.01 August 03, 2010 Entered By: AURELIANO LINCOLN MD Comment: Bypass surgery AURELIANO LINCOLN MD [facility] Disorder of shoulder (SNOMED CT 502552252) Active 719.91 [facility] Essential Hypertension Active 401.9 AURELIANO LINCOLN MD [facility] Hyperlipidemia Active 272.4 SATHISH SCOTT [facility] HYPERTENSION NOS 401.9 Active 401.9 ALEXANDRA KWONG [facility] Impotence (SNOMED CT 561985354) Active 302.72 BRITTANEY VILLEDA [facility] 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 Other and unspecified hyperlipidemia Active 272.4 AURELIANO LINCOLN MD [facility] Other, mixed, or unspecified drug abuse, continuous use Active 30 5.91 Jan 30, 2009 Entered By: SATHISH SCOTT Comment: urine drug screen positive for opitates and marijuannaMay 2009 Entered By: SATHISH SCOTT Comment: buying hydrocodone "off the street" SATHISH SCOTT [facility] Pain in joint involving ankle and foot (ICD-9-CM 719.47) Active 719 .[address] Papular eruption (SNOMED CT 719155771) Active 709.[address] Personal History of Noncompliance with M edical Treatment, Presenting Hazards to Active V15.81 SATHISH SCOTT [facility] Tobacco dependence syndrome (SNOMED CT 31872500) Active [id number] July 24, 2009 Entered By: SATHISH SCOTT Comment: one ppd YUMI AVILA [facility] Transient Ischemic Attack * (ICD-9-CM 435.9) Active 435.9 SATHISH SCOTT [facility] ANIETY STAT NOS 300.00 Inactive 300.00 Jan 05, [address] [facility] Bronchitis * (ICD-9-CM 490.) Inactive 490. Jan 05, [address] [facility] Postsurgical Aortocoronary Bypass Status (ICD-9-CM V45.81) Inactive V45.81 Oct 05, 2006 SATHISH SCOTT [facility] Radiology Reports: +/- 30 days of the encounter No Data Provided for This Section Pathology Reports: +/- 30 days of the encounter No Data Provided for This Section Encounter Notes: All associated encounter notes No Data Provided for This Section
--- OUTSIDE RECORDS SUMMARY | 2019-08-20 00:53 | XMS REPORT | Encounter Summary ---
Author Author [facility] JUAN MANUEL posey Organization Department of [facility] Address [address] [place] [phone] Phone Unavailable Care Team Providers Care Astrobiologist Name Role Phone BRITTANEY VILLEDA PCP Unavailable [...] PART B Apr 13, 2007 PART B [id number] [phone] MARTIN,JUAN MANUEL PATIENT MEDICARE (WNR) MEDICARE (M) PART B Apr 13, 2007 PART B [id number] JUAN MANUEL MARTIN PATIENT MEDICARE (WNR) MEDICARE (M) PART A Sep 10, 2005 PART A [id number] VERONICAJUAN MANUEL PATIENT MEDICARE (WNR) MEDICARE (M) PART A Sep 10, 2005 PART A [id number] [phone] JUAN MANUEL MARTIN PATIENT MEDICARE (WNR) MEDICARE (M) PART A Sep 10, 2005 PART A [id number] [phone] JUAN MANUEL MARITN PATIENT Selected Encounter This section includes the information on record at [place] for the Encounter. Date/Time Encounter Type Encounter Description Reason Provider Source Jan 25, 2019 08:12 AM Outpatient Encounter COMMUNITY CARE CONSULT [facility] 15 IHE Encounter Template Text [...] % Jan 08, 2019 08:20 AM KO [facility] COMPREHENSIVE METABOLIC PA SUNI Specimen Type: [...] >60 Jan 08, 2019 08:20 AM KO [facility] LIPID PROFILE(HDL,TRIG,CHO L,LDL) Specimen Type: PLASMA [...] docume nt. The data comes from all [place] facilities. Date Advance Directives Provider Source Jan 02, 2018 ADVANCE DIRECTIVE DISCUSSION FLO KRUEGER [facility] Oct 17, 2000 ADVANCE DIRECTIVE EUNICE RODRIGUEZ [facility], [facility] 15 Allergies and Adverse Reactions (ADRs): All historical and current Section Date Range: From patient's date of to the date document was create d. This section includes Allergies and Adverse Reactions (ADR s) on record with VA for the patient. The data comes from a ll [place] treatment facilities. It does not list Allergies/ADRs that were removed or entered in error. Some allergies/ADRs may be reported in t he Immunization section. Allergen Event Date Event Type Reaction(s) Severity Source No Known Allergies [facility] No Allergy Assessment on File [facility] Medications: VA dispensed (-15 months) and Non-VA Documented (Obtained Outside A) Section Date Range: 1) prescriptions processed by a VA pharmacy in the last 15 m [facility], and 2) all medications recorded in the [place] medical record as "non-VA medic ations". Pharmacy terms refer to [place] pharmacy's work on prescriptions. VA patient s are advised to take their medications as instructed by their health care team. The data comes from all [place] treatment facilities. Glossary of Pharmacy Terms:Active = A prescription that can be filled at the local [place] pharmacy.Active: On Hold = An active prescription that will not be filled until pharmacy resolves the issue.Active: Susp = An active prescription that is not scheduled to be filled yet.Clinic Order = A medication received during a visit to a [place] clinic or emergency department (currently not available).Discontinued [...] A DAY NEEDED 180 Jan 09, 2020 [id number] Apr 10, 2019 MAK VILLEDA CBTERRENCE ALBUTEROL SO4 0.083% INHL,3ML Discontinued USE 3 MLS IN NEBULIZER FOR INHALATION TWO TIMES A DAY NEEDED 180 Jan 27, 2019 [id number] Nov 01, 2018 BRITTANEY VENEGAS ALBUTEROL SO4 90MCG/ACTUAT (CFC-F) INHL,ORAL,6.7GM Active INHALE 2 PUFFS BY ORAL INHALATION TWO TIMES A DAY NEEDED - RINSE MOUTHPIECE FREQUENTLY TO PREVENT CLOGGING 2 Aug 30, 2019 [id number] Mar 18, 2019 BRITTANEY VILLEDA ALBUTEROL SO4 90MCG/ACTUAT (CFC-F) INHL,ORAL,6.7GM Discontin ued INHALE 2 PUFFS BY ORAL INHALATION TWO TIMES A DAY NEEDED - RINSE MOUTHPIECE FREQUENTLY TO PREVENT CLOGGING 2 Mar 27, 2019 [id number] Aug 30, 2018 BRITTANEY VILLEDA BUDESONIDE 80MCG/FORMOTEROL FUM 4.5MCG/SPRAY INHL,ORAL,10.2G M Active INHALE 2 PUFFS BY ORAL INHALATION TWO TIMES A DAY FOR BREATHING. SHAKE WELL. RINSE MOUTH AND SPIT AFTER EACH USE. 3 Jun 24, 2020 [id number] Jun 24, 2019 BRITTANEY VILLEDA BUDESONIDE 80MCG/FORMOTEROL FUM 4.5MCG/SPRAY INHL,ORAL,10.2G M Discontinued INHALE 2 PUFFS BY ORAL INHALATION TWO TIMES A DAY FOR BREATHING. SHAKE WELL. RINSE MOUTH AND SPIT AFTER EACH USE. 3 Dec 07, 2019 [id number] Mar 18, 2019 BRITTANEY VILLEDA FERROUS SO4 324MG TAB,EC Active TAKE ONE TABLET BY MOUTH TWO TIMES A DAY FOR IRON SUPPLEMENTATION. MAY TAKE WITH FOOD IF NOT TOLERATED ON EMPTY STOMACH 200 Jan 09, 2020 [id number] Apr 23, 2019 BRITTANEY VILLEDA FERROUS SO4 324MG TAB,EC Discontinued TAKE ONE TABLET BY MOUTH TWO TIMES A DAY FOR IRON SUPPLEMENTATION. MAY TAKE WITH FOOD IF NOT TOLERATED ON EMPTY STOMACH 200 May 02, 2019 [id number] Nov 14, 2018 BRITTANEY VILLEDA C FOLIC ACID 1MG TAB Active TAKE ONE TABLET BY MOUTH ONCE A DAY 90 Nov 22, 2019 [id number] Mar 18, 2019 BRITTANEY VILLEDA FOLIC ACID 1MG TAB Discontinued TAKE ONE TABLET BY MOUTH ONCE A DAY 90 May 02, 2019 [id number] Sep 26, 2018 BRITTANEY VILLEDA GABAPENTIN 300MG CAP Discontinued TAKE 2 CAPSULES BY MOUTH FOUR TITO ES A DAY 720 Jan 27, 2019 [id number] Nov 14, 2018 BRITTANEY VILLEDA CBTERRENCE GABAPENTIN 400MG CAP Active TAKE 1 CAPSULE BY MOUTH THREE TITO ES A DAY 270 Dec 07, 2019 [id number] Mar 18, 2019 BRITTANEY VILLEDA HYDROCODONE 10MG/ACETAMINOPHEN 325MG TAB Non-VA TAKE ONE TABLET BY MOUTH FOUR TIMES A DAY Non-VA Documented by: RAMY TRENT nted at: STEFANI SPAIN LISINOPRIL 10MG TAB Discontinued TAKE ONE-HALF TABLET BY MOUTH EVERY MORNING FOR HEART OR HIGH BLOOD PRESSURE 15 Jun 01, 2019 [id number] Jun 02, 2018 BRITTANEY VILLEDA [facility] LOSARTAN 25MG TAB Active TAKE ONE TABLET BY MOUTH ONCE A DAY FOR BLOOD PRESSURE 90 Jan 09, 2020 [id number] Apr 23, 2019 BRITTANEY VILLEDA C LOSARTAN 25MG TAB Discontinued TAKE ONE TABLET BY M OUTH ONCE A DAY FOR BLOOD PRESSURE 90 July 13, 2019 [id number] Nov 14, 2018 TIERRA KWONG [facility] MELOXICAM 15MG TAB TAKE ONE TABLET BY M OUTH ONCE A DAY FOR PAIN OR INFLAMMATION. 90 Jun 01, 2019 [id number] Mar 18, 2019 BRITTANEY VILLEDA METOPROLOL TARTRATE 25MG TAB Active TAKE ONE-SMITH LF TABLET BY MOUTH TWO TIMES A DAY FOR HEART/BLOOD PRESSURE. TAKE WITH OR IMMEDIATELY FOLLOWING FOOD. 90 Jan 09, 2020 [id number] Apr 23, 2019 BRITTANEY VILLEDA METOPROLOL TARTRATE 25MG TAB Discontinued TAKE ONE-SMITH LF TABLET BY MOUTH TWO TIMES A DAY FOR HEART/BLOOD PRESSURE. TAKE WITH OR IMMEDIATELY FOLLOWING FOOD. 90 July 13, 2019 [id number] Nov 14, 2018 TIERRA KWONG ROSA BROWN [facility] SIMVASTATIN 40MG TAB Active TAKE ONE-HALF TABLE T BY MOUTH AT BEDTIME FOR CHOLESTEROL - REPORT ANY UNEXPLAINED MUSCLE PAIN OR WEAKNESS TO YOUR PROVIDER 45 Sep 27, 2019 [id number] Jun 24, 2019 BRITTANEY VILLEDA C SIMVASTATIN 40MG TAB Discontinued TAKE ONE-HALF TABLE T BY MOUTH AT BEDTIME FOR CHOLESTEROL - REPORT ANY UNEXPLAINED MUSCLE PAIN OR WEAKNESS TO YOUR PROVIDER 45 Sep 23, 2018 [id number] Jul 05, 2018 BRITTANEY VILLEDA C TAMSULOSIN HCL 0.4MG CAP Discontinued TAKE ONE CAPSUL E BY MOUTH ONCE A DAY FOR PROSTATE. TAKE AT THE SAME TIME EACH DAY WITH FOOD. 90 Jun 17 9 [id number] Jun 14, 2018 BRITTANEY VILLEDA TAMSULOSIN HCL 0.4MG CAP TAKE ONE CAPSUL E BY MOUTH ONCE A DAY FOR PROSTATE. TAKE AT THE SAME TIME EACH DAY WITH FOOD. 90 August 01 0 [id number] Jun 24, 2019 BRITTANEY VILLEDA TIOTROPIUM 2.5MCG/ACTUAT INHL,ORAL,60D,4GM Active INHALE 2 PUFFS BY ORAL INHALATION ONCE A DAY FOR BREATHING. DON'T USE WITH IPRATROPIUM - REPLACES ADVAIR. 3 Jun 24, 2020 [id number] Jun 24, 2019 BRITTANEY VILLEDA TIOTROPIUM 2.5MCG/ACTUAT INHL,ORAL,60D,4GM Discontinued INHALE 2 PUFFS BY ORAL INHALATION ONCE A DAY FOR BREATHING. DON'T USE WITH IPRATROPIUM - REPLACES ADVAIR. 3 Oct 13, 2019 [id number] Mar 18, 2019 BRITTANEY VILLEDA Problems (Conditions): All historical and current Section Date Range: From patient's date of to the date document was create d. This section includes a list of Problems (Conditions) know n to [place] for the patient. It includes both active and inacti ve problems (conditions). The data comes from all [place] treatment facilities. Problem Status Problem Code Date of Onset Date of Resolution Comm ent(s) Provider Source Actinic keratosis (SNOMED CT 436138200) Active 702.0 BRITTANEY VILLEDA [facility] Alcohol Dependence * (ICD-9-CM 303.90/303.91) Active 303.90 ALEXANDRA KWONG [facility] Anemia Active 285.9 [facility]ISH [facility]OTT [facility] ANGINA PECTORIS NEC/NOS 413.9 Active 413.9 W ALEXANDRA DE JESUS [facility] Anxiety Disorder Active 300.00 AURELIANO LINCOLN MD [facility] Benign Neoplasm Skin Head, Neck, Scalp Active 216.4 RENALDO DACOSTA [facility] CABG Active 799.9 Oct 05, 2006 E ntered By: SATHISH SCOTT Comment: feb, 4-vessel SATHISH SCOTT [facility] Chest discomfort (SNOMED CT 787807735) Active 786.59 BRITTANEY VILLEDA [facility] Chronic airway obstruction, Not Elsewhere Classified Active 496. AURELIANO LINCOLN MD [facility] Chronic Low Back Pain Active 724.2 AURELIANO LINCOLN MD [facility] COPD * (ICD-9-CM 496.) Active 496. Robin SCOTT [facility] Coronary Artery Disease * (ICD-9-CM 414.9) Active 414.9 ALEXANDRA KWONG [facility] Coronary Atherosclerosis of [place] Coronary Vessel Active 414.01 August 03, 2010 Entered By: AURELIANO LINCOLN MD Comment: Bypass surgery AURELIANO LINCOLN MD [facility] Disorder of shoulder (SNOMED CT 170040993) Active 719.91 BRITTANEY VILLEDA [facility] Essential Hypertension Active 401.9 AURELIANO LINCOLN MD [facility] Hyperlipidemia Active 272.4 SATHISH SCOTT [facility] HYPERTENSION NOS 401.9 Active 401.9 ALEXANDRA KWONG [facility] Impotence (SNOMED CT 148401402) Active 302.72 BRITTANEY VILLEDA [facility] 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 AURELIANO LIU MD [facility] Marijuana Dependence unspecified Active 304.30 AURELIANO LINCOLN MD [facility] Microscopic Hematuria (ICD-9-CM 599.72) Active 599.72 BEVERLY SALINAS [facility] Other and unspecified hyperlipidemia Active 272.4 AURELIANO LINCOLN MD [facility] Other, mixed, or unspecified drug abuse, continuous use Active 30 5.91 Jan 30, 2009 Entered By: SATHISH SCOTT Comment: urine drug screen positive for opitates and marijuannaMay 2009 Entered By: SATHISH SCOTT Comment: buying hydrocodone "off the street" SATHISH SCOTT [facility] Pain in joint involving ankle and foot (ICD-9-CM 719.47) Active 719 .47 SATHISH SCOTT [facility] Papular eruption (SNOMED CT 624998860) Active 709.8 [facility]ED[facility] Personal History of Noncompliance with M edical Treatment, Presenting Hazards to Active V15.81 SATHISH SCOTT [facility] Tobacco dependence syndrome (SNOMED CT 49719177) Active 11979866 July 24, 2009 Entered By: SATHISH SCOTT Comment: one ppd YUMI AVILA [facility] Transient Ischemic Attack * (ICD-9-CM 435.9) Active 435.9 SATHISH SCOTT [facility] ANIETY STAT NOS 300.00 Inactive 300.00 Jan 05, 2005 ALEXANDRA FLOREZ [facility] Bronchitis * (ICD-9-CM 490.) Inactive 490. Jan 05, 2005 BRITT[facility]Y [facility]ILLED[facility] Postsurgical Aortocoronary Bypass Status (ICD-9-CM V45.81) Inactive V45.81 Oct 05, 2006 SATHISH SCOTT [facility] Radiology Reports: +/- 30 days of [...] EXP COSIGNER: URGENCY: STATUS: COMPLETED COMMUNITY CARE-[facility]/11/02/18 /nuno/ STEPHAN ROBLES MSA Signed: 01/25/2019 08:12 STEPHAN ROBLES [facility]
--- OUTSIDE RECORDS SUMMARY | 2019-08-20 00:53 | XMS REPORT | Encounter Summary ---
Author Author [facility] JUAN MANUEL posey Organization Department of [facility] Address [address] [place] [address] Phone Unavailable Care Team Providers Care Manager Net Name Role Phone BRITTANEY VILLEDA PCP Unavailable [...] PART B Apr 13, 2007 PART B [id number] [phone] MARTINJUAN MANUEL PATIENT MEDICARE (WNR) MEDICARE (M) PART B Apr 13, 2007 PART B [id number] JUAN MANUEL MARTIN PATIENT MEDICARE (WNR) MEDICARE (M) PART A Sep 10, 2005 PART A [id number] MARTIN,JUAN MANUEL PATIENT MEDICARE (WNR) MEDICARE (M) PART A Sep 10, 2005 PART A [id number] [phone] JUAN MANUEL MARTIN PATIENT MEDICARE (WNR) MEDICARE (M) PART A Sep 10, 2005 PART A [id number] [phone] JUAN MANUEL MARTIN PATIENT Selected Encounter This section includes the information on record at [place] for the Encounter. Date/Time Encounter Type Encounter Description Reason Provider Source Nov 23, 2018 12:47 PM Outpatient Encounter COMMUNITY CARE CONSULT [facility], [facility] IHE Encounter Template Text not used by [place] Assessments - Encounter Diagnoses No Data Provided for This Section Plan of Treatment: Future Appointments (+ 6 months) and Future Tests (+/- 45 day s) The Plan of Treatment section includes future care activities for the patient fr om all [place] treatment facilities. This section includes future appointments and fu ture orders which are active, pending or scheduled. Future Appointments This section includes appointments that were scheduled t o occur 6 months from the date of the Encounter, up to a maximum of 20 appointme nts. The data comes from all [facility] facilities. Appointment Date/Time Appointment Type [...] of a patient's completed or amen ded [place] Advance and Rescinded Directives. The entries below indicate that a direc tive exists for the patient, but an actual copy is not included with this docume nt. The data comes from all [place] facilities. Date Advance Directives Provider Source Jan 02, 2018 ADVANCE DIRECTIVE DISCUSSION FLO KRUEGER [facility] Oct 17, 2000 ADVANCE DIRECTIVE EUNICE RODRIGUEZ [facility], [facility] Allergies and Adverse Reactions (ADRs): All historical and current Section Date Range: From patient's date of to the date document was create d. This section includes Allergies and Adverse Reactions (ADR s) on record with [facility] for the patient. The data comes from a ll [place] treatment facilities. It does not list Allergies/ADRs that were removed or entered in error. Some allergies/ADRs may be reported in t he Immunization section. Allergen Event Date Event Type Reaction(s) Severity Source No Known Allergies [facility] No Allergy Assessment on File [facility] Medications: VA dispensed (-15 months) and Non-VA Documented (Obtained Outside V A) Section Date Range: 1) prescriptions processed by a [place] pharmacy in the last 15 m ont, and 2) all medications recorded in the [place] medical record as "non-VA medic ations". Pharmacy terms refer to [place] pharmacy's work on prescriptions. VA patient s are advised to take their medications as instructed by their health care team. The data comes from all [place] treatment facilities. Glossary of Pharmacy Terms:Active = A prescription that can be filled at the local [place] pharmacy.Active: On Hold = An active prescription that will not be filled until pharmacy resolves the issue.Active: Susp = An active prescription that is not scheduled to be filled yet.Clinic Order = A medication received during a visit to a [place] clinic or emergency department (currently not available).Discontinued [...] may be a prescription from either the [place] or other providers that was filled outside the [place]. Or, it may be an over the [...] A DAY NEEDED 180 Jan 09, 2020 [id number] Apr 10, 2019 MAK VILLEDA ALBUTEROL SO4 0.083% INHL,3ML Discontinued USE 3 MLS IN NEBULIZER FOR INHALATION TWO TIMES A DAY NEEDED 180 Jan 27, 2019 [id number] Nov 01, 2018 BRITTANEY VENEGAS ALBUTEROL SO4 90MCG/ACTUAT (CFC-F) INHL,ORAL,6.7GM Active INHALE 2 PUFFS BY ORAL INHALATION TWO TIMES A DAY NEEDED - RINSE MOUTHPIECE FREQUENTLY TO PREVENT CLOGGING 2 Aug 30, 2019 [id number] Mar 18, 2019 BRITTANEY VILLEDA ALBUTEROL SO4 90MCG/ACTUAT (CFC-F) INHL,ORAL,6.7GM Discontin ued INHALE 2 PUFFS BY ORAL INHALATION TWO TIMES A DAY NEEDED - RINSE MOUTHPIECE FREQUENTLY TO PREVENT CLOGGING 2 Mar 27, 2019 [id number] Aug 30, 2018 BRITTANEY VILLEDA BUDESONIDE 80MCG/FORMOTEROL FUM 4.5MCG/SPRAY INHL,ORAL,10.2G M Active INHALE 2 PUFFS BY ORAL INHALATION TWO TIMES A DAY FOR BREATHING. SHAKE WELL. RINSE MOUTH AND SPIT AFTER EACH USE. 3 Jun 24, 2020 [id number] Jun 24, 2019 BRITTANEY VILLEDA BUDESONIDE 80MCG/FORMOTEROL FUM 4.5MCG/SPRAY INHL,ORAL,10.2G M Discontinued INHALE 2 PUFFS BY ORAL INHALATION TWO TIMES A DAY FOR BREATHING. SHAKE WELL. RINSE MOUTH AND SPIT AFTER EACH USE. 3 Dec 07, 2019 [id number] Mar 18, 2019 BRITTANEY VILLEDA FERROUS SO4 324MG TAB,EC Active TAKE ONE TABLET BY MOUTH TWO TIMES A DAY FOR IRON SUPPLEMENTATION. MAY TAKE WITH FOOD IF NOT TOLERATED ON EMPTY STOMACH 200 Jan 09, 2020 [id number] Apr 23, 2019 BRITTANEY VILLEDA FERROUS SO4 324MG TAB,EC Discontinued TAKE ONE TABLET BY MOUTH TWO TIMES A DAY FOR IRON SUPPLEMENTATION. MAY TAKE WITH FOOD IF NOT TOLERATED ON EMPTY STOMACH 200 May 02, 2019 [id number] Nov 14, 2018 BRITTANEY VILLEDA CBO C FOLIC ACID 1MG TAB Active TAKE ONE TABLET BY MOUTH ONCE A DAY 90 Nov 22, 2019 [id number] Mar 18, 2019 BRITTANEY VILLEDA FOLIC ACID 1MG TAB Discontinued TAKE ONE TABLET BY MOUTH ONCE A DAY 90 May 02, 2019 [id number] Sep 26, 2018 BRITTANEY VILLEDA GABAPENTIN 300MG CAP Discontinued TAKE 2 CAPSULES BY MOUTH FOUR TITO ES A DAY 720 Jan 27, 2019 [id number] Nov 14, 2018 BRITTANEY VILLEDA GABAPENTIN 400MG CAP Active TAKE 1 CAPSULE BY MOUTH THREE TITO ES A DAY 270 Dec 07, 2019 [id number] Mar 18, 2019 BRITTANEY VILLEDA HYDROCODONE 10MG/ACETAMINOPHEN 325MG TAB Non-VA TAKE ONE TABLET BY MOUTH FOUR TIMES A DAY Non-VA Documented by: RAMY TRENT nted at: STEFANI SPAIN LISINOPRIL 10MG TAB Discontinued TAKE ONE-HALF TABLET BY MOUTH EVERY MORNING FOR HEART OR HIGH BLOOD PRESSURE 15 Jun 01, 2019 [id number] Jun 02, 2018 BRITTANEY VILLEDA [facility]OC LOSARTAN 25MG TAB Active TAKE ONE TABLET BY MOUTH ONCE A DAY FOR BLOOD PRESSURE 90 Jan 09, 2020 [id number] Apr 23, 2019 BRITTANEY VILLEDA C LOSARTAN 25MG TAB Discontinued TAKE ONE TABLET BY M OUTH ONCE A DAY FOR BLOOD PRESSURE 90 July 13, 2019 [id number] Nov 14, 2018 [facility] MELOXICAM 15MG TAB TAKE ONE TABLET BY M OUTH ONCE A DAY FOR PAIN OR INFLAMMATION. 90 Jun 01, 2019 [id number] Mar 18, 2019 BRITTANEY VILLEDA METOPROLOL TARTRATE 25MG TAB Active TAKE ONE-SMITH LF TABLET BY MOUTH TWO TIMES A DAY FOR HEART/BLOOD PRESSURE. TAKE WITH OR IMMEDIATELY FOLLOWING FOOD. 90 Jan 09, 2020 [id number] Apr 23, 2019 BRITTANEY VILLEDA METOPROLOL TARTRATE 25MG TAB Discontinued TAKE ONE-SMITH LF TABLET BY MOUTH TWO TIMES A DAY FOR HEART/BLOOD PRESSURE. TAKE WITH OR IMMEDIATELY FOLLOWING FOOD. 90 July 13, 2019 [id number] Nov 14, 2018 TIERRA KWONG [facility] SIMVASTATIN 40MG TAB Active TAKE ONE-HALF TABLE T BY MOUTH AT BEDTIME FOR CHOLESTEROL - REPORT ANY UNEXPLAINED MUSCLE PAIN OR WEAKNESS TO YOUR PROVIDER 45 Sep 27, 2019 [id number] Jun 24, 2019 BRITTANEY VILLEDA C SIMVASTATIN 40MG TAB Discontinued TAKE ONE-HALF TABLE T BY MOUTH AT BEDTIME FOR CHOLESTEROL - REPORT ANY UNEXPLAINED MUSCLE PAIN OR WEAKNESS TO YOUR PROVIDER 45 Sep 23, 2018 [id number] Jul 05, 2018 RONAL,BRITTANEY B KO CBO C TAMSULOSIN HCL 0.4MG CAP Discontinued TAKE ONE CAPSUL E BY MOUTH ONCE A DAY FOR PROSTATE. TAKE AT THE SAME TIME EACH DAY WITH FOOD. 90 Jun 17, 9 [id number] Jun 14, 2018 BRITTANEY VILLEDA TAMSULOSIN HCL 0.4MG CAP TAKE ONE CAPSUL E BY MOUTH ONCE A DAY FOR PROSTATE. TAKE AT THE SAME TIME EACH DAY WITH FOOD. 90 August 01 0 [id number] Jun 24, 2019 BRITTANEY VILLEDA TIOTROPIUM 2.5MCG/ACTUAT INHL,ORAL,60D,4GM Active INHALE 2 PUFFS BY ORAL INHALATION ONCE A DAY FOR BREATHING. DON'T USE WITH IPRATROPIUM - REPLACES ADVAIR. 3 Jun 24, 2020 [id number] Jun 24, 2019 BRITTANEY VILLEDA CBTERRENCE TIOTROPIUM 2.5MCG/ACTUAT INHL,ORAL,60D,4GM Discontinued INHALE 2 PUFFS BY ORAL INHALATION ONCE A DAY FOR BREATHING. DON'T USE WITH IPRATROPIUM - REPLACES ADVAIR. 3 Oct 13, 2019 [id number] Mar 18, 2019 BRITTANEY VILLEDA [facility] Problems (Conditions): All historical and current Section Date Range: From patient's date of to the date document was create d. This section includes a list of Problems (Conditions) know n to [facility] for the patient. It includes both active and inacti ve problems (conditions). The data comes from all [place] treatment facilities. Problem Status Problem Code Date of Onset Date of Resolution Comm ent(s) Provider Source Actinic keratosis (SNOMED CT 532093426) Active 702.0 BRITTANEY VILLEDA [facility] Alcohol Dependence * (ICD-9-CM 303.90/303.91) Active 303.90 ALEXANDRA KWONG [facility] Anemia Active 285.9 SATHISH SCOTT [facility] ANGINA PECTORIS NEC/NOS 413.9 Active 413.9 ALEXANDRA RUELAS [facility] Anxiety Disorder Active 300.00 AURELIANO LINCOLN MD [facility] Benign Neoplasm Skin Head, Neck, Scalp Active 216.4 [facility] CABG Active 799.9 Oct 05, 2006 E ntered By: SATHISH SCOTT Comment: feb, 4-vessel SATHISH SCOTT [facility] Chest discomfort (SNOMED CT 926728549) Active 786.59 BRITTANEY VILLEDA [facility] Chronic airway obstruction, Not Elsewhere Classified Active 496. AURELIANO LINCOLN MD [facility] Chronic Low Back Pain Active 724.2 AURELIANO LINCOLN MD [facility] COPD * (ICD-9-CM 496.) Active 496. Robin SCOTT [facility] Coronary Artery Disease * (ICD-9-CM 414.9) Active 414.9 ALEXANDRA KWONG [facility] Coronary Atherosclerosis of [place] Coronary Vessel Active 414.01 August 03, 2010 Entered By: AURELIANO LINCOLN MD Comment: Bypass surgery AURELIANO LINCOLN MD [facility] Disorder of shoulder (SNOMED CT 631820946) Active 719.91 BRITTANEY VILLEDA [facility] Essential Hypertension Active 401.9 AURELIANO LINCOLN MD [facility] Hyperlipidemia Active 272.4 SATHISH SCOTT PREETHI ROSA [facility] HYPERTENSION NOS 401.9 Active 401.9 ALEXANDRA KWONG [facility] Impotence (SNOMED CT 156229805) Active 302.72 BRITTANEY VILLEDA [facility] 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 AURELIANO LIU MD [facility] Marijuana Dependence unspecified Active 304.30 AURELIANO LINCOLN MD [facility] Microscopic Hematuria (ICD-9-CM 599.72) Active 599.72 BEVERLY SALINAS [facility] Other and unspecified hyperlipidemia Active 272.4 AURELIANO LINCOLN MD [facility] Other, mixed, or unspecified drug abuse, continuous use Active 30 5.91 Jan 30, 2009 Entered By: SATHISH SCOTT Comment: urine drug screen positive for opitates and marijuannaMay 2009 Entered By: SATHISH SCOTT Comment: buying hydrocodone "off the street" SATHISH SCOTT [facility] Pain in joint involving ankle and foot (ICD-9-CM 719.47) Active 719 .47 [facility]ISH SCOTT [facility] Papular eruption (SNOMED CT 080201013) Active 709.8 BRITTANEY VILLEDA [facility] Personal History of Noncompliance with M edical Treatment, Presenting Hazards to Active V15.81 SATHISH SCOTT [facility] Tobacco dependence syndrome (SNOMED CT 18127738) Active [id number] July 24, 2009 Entered By: SATHISH SCOTT Comment: one ppd YUMI AVILA [facility] Transient Ischemic Attack * (ICD-9-CM 435.9) Active 435.9 SATHISH SCOTT [facility] ANIETY STAT NOS 300.00 Inactive 300.00 Jan 05, 2005 ALEXANDRA FLOREZ [facility] Bronchitis * (ICD-9-CM 490.) Inactive 490. Jan 05, 2005 BRITTANEY VILLEDA [facility] Postsurgical Aortocoronary Bypass Status (ICD-9-CM V45.81) Inactive V45.81 Oct 05, 2006 SATHISH SCOTT [facility] Radiology Reports: +/- 30 days [...] EXP COSIGNER: URGENCY: STATUS: COMPLETED COMMUNITY CARE-PULMONARY REHAB/[facility]/11/02/18 /nuno/ SULMA PLEITEZ Signed: 11/23/2018 12:48 SULMA PLEITEZ [facility]
--- OUTSIDE RECORDS SUMMARY | 2019-08-20 00:53 | XMS REPORT | Encounter Summary ---
Author Author [facility] JUAN MANUEL posey Organization Department of [facility] Address [address] [place] [address] Phone Unavailable Care Team Providers Care Network Admin Name Role Phone BRITTANEY VILLEDA PCP Unavailable [...] PART B Apr 13, 2007 PART B [id number] [phone] MARTINJUAN MANUEL PATIENT MEDICARE (WNR) MEDICARE (M) PART B Apr 13, 2007 PART B [id number] [phone] JUAN MANUEL MARTIN PATIENT MEDICARE (WNR) MEDICARE (M) PART A Sep 10, 2005 PART A [id number] MARTIN,JUAN MANUEL PATIENT MEDICARE (WNR) MEDICARE (M) PART A Sep 10, 2005 PART A [id number] [phone] JUAN MANUEL MARTIN PATIENT MEDICARE (WNR) MEDICARE (M) PART A Sep 10, 2005 PART A [id number] JUAN MANUEL MARTIN PATIENT Selected Encounter This section includes the information on record at [place] for the Encounter. Date/Time Encounter Type Encounter Description Reason Provider Source Jan 08, 2019 12:00 AM Outpatient Encounter EVENT (HISTORICAL) [facility] 15 IHE Encounter Template Text not [...] % Jan 08, 2019 08:20 AM STEFANI [facility] COMPREHENSIVE METABOLIC PA SUNI Specimen Type: [...] Oct 17, 2000 ADVANCE DIRECTIVE EUNICE RODRIGUEZ [facility], [facility] 15 Allergies and Adverse [...] Severity Source No Known Allergies [facility] No Allergy Assessment on File [facility] Medications: VA dispensed (-15 months) and Non-VA Documented (Obtained Outside V A) Section Date Range: 1) prescriptions processed by a [place] pharmacy in the last 15 m ont, [...] A DAY NEEDED 180 Jan 09, 2020 [id number] Apr 10, 2019 MAK VILLEDA CBTERRENCE ALBUTEROL SO4 0.083% INHL,3ML Discontinued USE 3 MLS IN NEBULIZER FOR INHALATION TWO TIMES A DAY NEEDED 180 Jan 27, 2019 [id number] Nov 01, 2018 BRITTANEY VENEGAS ALBUTEROL SO4 90MCG/ACTUAT (CFC-F) INHL,ORAL,6.7GM Active INHALE 2 PUFFS BY ORAL INHALATION TWO TIMES A DAY NEEDED - RINSE MOUTHPIECE FREQUENTLY TO PREVENT CLOGGING 2 Aug 30, 2019 [id number] Mar 18, 2019 BRITTANEY VILLEDA CBOC ALBUTEROL SO4 90MCG/ACTUAT (CFC-F) INHL,ORAL,6.7GM Discontin ued INHALE 2 PUFFS BY ORAL INHALATION TWO TIMES A DAY NEEDED - RINSE MOUTHPIECE FREQUENTLY TO PREVENT CLOGGING 2 Mar 27, 2019 [id number] Aug 30, 2018 BRITTANEY VILLEDA BUDESONIDE 80MCG/FORMOTEROL FUM 4.5MCG/SPRAY INHL,ORAL,10.2G M Active INHALE 2 PUFFS BY ORAL INHALATION TWO TIMES A DAY FOR BREATHING. SHAKE WELL. RINSE MOUTH AND SPIT AFTER EACH USE. 3 Jun 24, 2020 [id number] Jun 24, 2019 BRITTANEY VILLEDA [facility] BUDESONIDE 80MCG/FORMOTEROL FUM 4.5MCG/SPRAY INHL,ORAL,10.2G M Discontinued INHALE 2 PUFFS BY ORAL INHALATION TWO TIMES A DAY FOR BREATHING. SHAKE WELL. RINSE MOUTH AND SPIT AFTER EACH USE. 3 Dec 07, 2019 [id number] Mar 18, 2019 BRITTANEY VILLEDA [facility] FERROUS SO4 324MG TAB,EC Active TAKE ONE TABLET BY MOUTH TWO TIMES A DAY FOR IRON SUPPLEMENTATION. MAY TAKE WITH FOOD IF NOT TOLERATED ON EMPTY STOMACH 200 Jan 09, 2020 [id number] Apr 23, 2019 BRITTANEY VILLEDA [facility] FERROUS SO4 324MG TAB,EC Discontinued TAKE ONE TABLET BY MOUTH TWO TIMES A DAY FOR IRON SUPPLEMENTATION. MAY TAKE WITH FOOD IF NOT TOLERATED ON EMPTY STOMACH 200 May 02, 2019 [id number] Nov 14, 2018 BRITTANEY VILLEDA C FOLIC ACID 1MG TAB Active TAKE ONE TABLET BY MOUTH ONCE A DAY 90 Nov 22, 2019 [id number] Mar 18, 2019 BRITTANEY VILLEDA FOLIC ACID 1MG TAB Discontinued TAKE ONE TABLET BY MOUTH ONCE A DAY 90 May 02, 2019 [id number] Sep 26, 2018 BRITTANEY VILLEDA GABAPENTIN 300MG CAP Discontinued TAKE 2 CAPSULES BY MOUTH FOUR TTIO ES A DAY 720 Jan 27, 2019 [id number] Nov 14, 2018 BRITTANEY VILLEDA GABAPENTIN 400MG CAP Active TAKE 1 CAPSULE BY MOUTH THREE TITO ES A DAY 270 Dec 07, 2019 [id number] Mar 18, 2019 BRITTANEY VILLEDA HYDROCODONE 10MG/ACETAMINOPHEN 325MG TAB Non-VA TAKE ONE TABLET BY MOUTH FOUR TIMES A DAY Non-VA Documented by: RAMY TRENT nted at: STEFANI SPAIN LISINOPRIL 10MG TAB Discontinued TAKE ONE-HALF TABLET BY MOUTH EVERY MORNING FOR HEART OR HIGH BLOOD PRESSURE 15 Jun 01, 2019 [id number] Jun 02, 2018 BRITTANEY VILLEDA CBOC LOSARTAN 25MG TAB Active TAKE ONE TABLET BY MOUTH ONCE A DAY FOR BLOOD PRESSURE 90 Jan 09, 2020 [id number] Apr 23, 2019 BRITTANEY VILLEDA CBO C LOSARTAN 25MG TAB Discontinued TAKE ONE TABLET BY M OUTH ONCE A DAY FOR BLOOD PRESSURE 90 July 13, 2019 [id number] Nov 14, 2018 TIERRA KWONG [facility] MELOXICAM 15MG TAB TAKE ONE TABLET BY M OUTH ONCE A DAY FOR PAIN OR INFLAMMATION. 90 Jun 01, 2019 [id number] Mar 18, 2019 BRITTANEY VILLEDA CBTERRENCE METOPROLOL TARTRATE 25MG TAB Active TAKE ONE-SMITH LF TABLET BY MOUTH TWO TIMES A DAY FOR HEART/BLOOD PRESSURE. TAKE WITH OR IMMEDIATELY FOLLOWING FOOD. 90 Jan 09, 2020 [id number] Apr 23, 2019 BRITTANEY VILLEDA [facility] METOPROLOL TARTRATE 25MG TAB Discontinued TAKE ONE-SMITH LF TABLET BY MOUTH TWO TIMES A DAY FOR HEART/BLOOD PRESSURE. TAKE WITH OR IMMEDIATELY FOLLOWING FOOD. 90 July 13, 2019 [id number] Nov 14, 2018 TIERRA KWONG [facility] SIMVASTATIN 40MG TAB Active TAKE ONE-HALF TABLE T BY MOUTH AT BEDTIME FOR CHOLESTEROL - REPORT ANY UNEXPLAINED MUSCLE PAIN OR WEAKNESS TO YOUR PROVIDER 45 Sep 27, 2019 [id number] Jun 24, 2019 BRITTANEY VILLEDA CBO C SIMVASTATIN 40MG TAB Discontinued TAKE ONE-HALF TABLE T BY MOUTH AT BEDTIME FOR CHOLESTEROL - REPORT ANY UNEXPLAINED MUSCLE PAIN OR WEAKNESS TO YOUR PROVIDER 45 Sep 23, 2018 [id number] Jul 05, 2018 BRITTANEY VILLEDA CBO C TAMSULOSIN HCL 0.4MG CAP Discontinued TAKE ONE CAPSUL E BY MOUTH ONCE A DAY FOR PROSTATE. TAKE AT THE SAME TIME EACH DAY WITH FOOD. 90 Jun 17 9 [id number] Jun 14, 2018 BRITTANEY VILLEDA CBTERRENCE TAMSULOSIN HCL 0.4MG CAP TAKE ONE CAPSUL E BY MOUTH ONCE A DAY FOR PROSTATE. TAKE AT THE SAME TIME EACH DAY WITH FOOD. 90 August 01 0 [id number] Jun 24, 2019 BRITTANEY VILLEDA TIOTROPIUM 2.5MCG/ACTUAT INHL,ORAL,60D,4GM Active INHALE 2 PUFFS BY ORAL INHALATION ONCE A DAY FOR BREATHING. DON'T USE WITH IPRATROPIUM - REPLACES ADVAIR. 3 Jun 24, 2020 [id number] Jun 24, 2019 BRITTANEY VILLEDA CBOC TIOTROPIUM 2.5MCG/ACTUAT INHL,ORAL,60D,4GM Discontinued INHALE 2 PUFFS BY ORAL INHALATION ONCE A DAY FOR BREATHING. DON'T USE WITH IPRATROPIUM - REPLACES ADVAIR. 3 Oct 13, 2019 [id number] Mar 18, 2019 BRITTANEY VILLEDA PARS ONS [...] ent(s) Provider Source Actinic keratosis (SNOMED CT 612817807) Active 702.0 BRITTANEY VILLEDA [facility] Alcohol Dependence * (ICD-9-CM 303.90/303.91) Active 303.90 ALEXANDRA KWONG [facility] Anemia Active 285.9 SATHISH SCOTT [facility] ANGINA PECTORIS NEC/NOS 413.9 Active 413.9 W ALEXANDRA DE JESUS [facility] Anxiety Disorder Active 300.00 AURELIANO LINCOLN MD [facility] Benign Neoplasm Skin Head, Neck, Scalp Active 216.4 RENALDO DACOSTA [facility] CABG Active 799.9 Oct 05, 2006 E ntered By: SATHISH SCOTT Comment: feb, 4-vessel SATHISH SCOTT [facility] Chest discomfort (SNOMED CT 802658099) Active 786.59 BRITTANEY VILLEDA [facility] Chronic airway obstruction, Not Elsewhere Classified Active 496. AURELIANO LINCOLN MD [facility] Chronic Low Back Pain Active 724.2 AURELIANO LINCOLN MD [facility] COPD * (ICD-9-CM 496.) Active 496. Robin SCOTT [facility] Coronary Artery Disease * (ICD-9-CM 414.9) Active 414.9 ALEXANDRA KWONG [facility] Coronary Atherosclerosis of [place] Coronary Vessel Active 414.01 August 03, 2010 Entered By: AURELIANO LINCOLN MD Comment: Bypass surgery AURELIANO LINCOLN MD [facility] Disorder of shoulder (SNOMED CT 590570237) Active 719.91 BRITTANEY VILLEDA [facility] Essential Hypertension Active 401.9 AURELIANO LINCOLN MD [facility] Hyperlipidemia Active 272.4 SATHISH SCOTT [facility] HYPERTENSION NOS 401.9 Active 401.9 ALEXANDRA KWONG [facility] Impotence (SNOMED CT 070648866) Active 302.72 [facility] 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 AURELIANO LIU MD [facility] Marijuana Dependence unspecified Active 304.30 AURELIANO LINCOLN MD [facility] Microscopic Hematuria (ICD-9-CM 599.72) Active 599.72 BEVERLY SALINAS [facility] Other and unspecified hyperlipidemia Active 272.4 AURELIANO LINCOLN MD [facility] Other, mixed, or unspecified drug abuse, continuous use Active 30 5.91 Jan 30, 2009 Entered By: SATHISH SCOTT Comment: urine drug screen positive for opitates and marijuannaMay 2009 Entered By: SATHISH SCOTT Comment: buying hydrocodone "off the street" SATHISH SCOTT [facility] Pain in joint involving ankle and foot (ICD-9-CM 719.47) Active 719 .47 SATHISH SCOTT [facility] Papular eruption (SNOMED CT 873744690) Active 709.8 [facility] Personal History of Noncompliance with M edical Treatment, Presenting Hazards to Active V15.81 SATHISH SCOTT [facility] Tobacco dependence syndrome (SNOMED CT 95234662) Active [id number] July 24, 2009 Entered By: SATHISH SCOTT Comment: one YUMI Gibbons [facility] Transient Ischemic Attack * (ICD-9-CM 435.9) Active 435.9 SATHISH SCOTT [facility] ANIETY STAT NOS 300.00 Inactive 300.00 Jan 05, 2005 ALEXANDRA FLOREZ STEPHANIE [facility] Bronchitis * (ICD-9-CM 490.) Inactive 490. Jan 05, 2005 BRITTANEY VILLEDA [facility] Postsurgical Aortocoronary Bypass Status (ICD-9-CM V45.81) Inactive V45.81 Oct 05, 2006 SATHISH SCOTT [facility] Radiology Reports: +/- 30 days of the encounter No Data Provided for This Section Pathology Reports: +/- 30 days of the encounter No Data Provided for This Section Encounter Notes: All associated encounter notes No Data Provided for This Section
--- OUTSIDE RECORDS SUMMARY | 2019-08-20 00:53 | XMS REPORT | Encounter Summary ---
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 Name Role Phone BRITTANEY VILLEDA PCP Unavailable [...] PART B Apr 13, 2007 PART B [id number] [phone] JUAN MANUEL MARTIN PATIENT MEDICARE (WNR) MEDICARE (M) PART B Apr 13, 2007 PART B [id number] JUAN MANUEL MARTIN PATIENT MEDICARE (WNR) MEDICARE (M) PART A Sep 10, 2005 PART A [id number] JUAN MANUEL MARTIN PATIENT MEDICARE (WNR) MEDICARE (M) PART A Sep 10, 2005 PART A [id number] [phone] JUAN MANUEL MARTIN PATIENT MEDICARE (WNR) MEDICARE (M) PART A Sep 10, 2005 PART A [id number] MARTINJUAN MANUEL PATIENT Selected Encounter This section includes the information on record at [place] for the Encounter. Date/Time Encounter Type Encounter Description Reason Provider Source Jan 08, 2019 09:00 AM OFFICE/OUTPATIENT VISIT EST PRIMARY CARE/M EDICINE ICD-10-CM I10. Essential (primary) hypertension with Provider Comments: Essential (Primary) Hypertension RAMY TRENT KO [facility] IHE Encounter Template Text not used by [facility] Assessments - Encounter Diagnoses This section includes the primary and secondary diag noses documented for the Encounter. Date/Time Primary/Secondary Diagnosis Diagnosis Name Provider Source Jan 17, 2019 12:35 PM PRIMARY Essential (primary) hypertension [facility]IN WE[facility]S [facility] Jan 17, 2019 12:35 PM SECONDARY Anemia, unspecified MATEO WELLS [facility] Jan 17, 2019 12:35 PM SECONDARY Encounter for immunization GRIFFIN ANDREW KO [facility] Plan of Treatment: Future Appointments (+ 6 months) and Future Tests (+/- 45 day s) The Plan of Treatment section includes future care activities for the patient fr om all [place] treatment facilities. This section includes future appointments and fu ture orders which are active, pending or scheduled. Future Appointments This section includes appointments that were scheduled t o occur 6 months from the date of the Encounter, up to a maximum of 20 appointme nts. The data comes from all [place] treatment facilities. Appointment Date/Time Appointment Type Appointment Facili ty Name Jan 23, 2019 09:15 AM AMBULATORY - NONE KO [facility] Surgical Procedures: All associated to the encounter [...] pg/mL [id number] Jan 23, 2019 09:15 AM [facility] FOLATE Specimen Type: SERUM No comment entered. FOLATE 18.5 ng/mL 7.0-20.0 Jan 15, 2019 09:32 AM [facility] OCCULT BLOOD FIT X1 SCREEN Specimen Type: FECES No comment entered. OCCULT BLOOD (FIT) #1 OF 1 POSITIVE HH Neg ative Jan 08, 2019 08:20 AM [facility] CBC & DIFF Specimen Type: BLOOD No [...] 0.7 % Jan 08, 2019 08:20 AM [employer] [facility] COMPREHENSIVE METABOLIC PA SUNI Specimen Type: PLASMA [...] EGFR >60 Jan 08, 2019 08:20 AM [facility] ([facility])OC LIPID PROFILE(HDL,TRIG,CHO L,LDL) Specimen Type: PLASMA Comment: [...] ng/mL 0-4 Jan 02, 2019 08:29 AM [facility]OC CBC & DIFF Specimen Type: BLOOD No [...] Source Jan 08, 2019 08:55 AM 0 [facility] Jan 08, 2019 08:36 AM 188/94 mm[Hg] [facility] Jan 08, 2019 08:30 AM 3 [facility] Jan 08, 2019 08:26 AM 98 F 58 /min 195/104 mm[Hg] 18 /min 98 % 181.5 lb 25 [facility] Immunizations: All administered on the encounter date This section contains immunizations associated to the Encounter. Immunization Series Date Issued Reaction Comments INFLUENZA, TRIVALENT, ADJUVANTED Jan 08, 2019 Social History: Smoking Status (Most current) and Tobacco Use (All prior to enco unter date) This section includes the most current, and the historical, smoking and tobacco- related health factors from the [place] facility where the Encounter took place. Current Smoking Status This section includes the most current smoking, or tobacco -related health factor, from the [place] facility where the Encounter took place. Date/Time Current Smoking Status Comment [facility] Jan 02, 2019 08:20 AM NON-TOBACCO USER [facility] Tobacco Use History This section includes a history of the smoking, or tobacco -related health factors, that were collected on or before the date of the Encoun ter. The data comes from the [place] facility where the Encounter took place. Date/Time Smoking Status/Tobacco Use Comment [facility] May 28, 2018 11:45 AM VA-TOBACCO FORMER USER [facility] May 28, 2018 11:45 AM VA-TOBACCO QUIT 15 YRS OR MORE [facility] Dec 25, 2017 02:23 PM NON-TOBACCO USER KO [facility] Jan 25, 2017 09:53 AM NON-TOBACCO USER [...] docume nt. The data comes from all [place] facilities. Date Advance Directives Provider Source Jan 02, 2018 ADVANCE DIRECTIVE DISCUSSION FLO [facility] Oct 17, 2000 ADVANCE DIRECTIVE EUNICE RODRIGUEZ [facility], VISN 15 Allergies and Adverse Reactions (ADRs): All historical and current Section Date Range: From patient's date of to the date document was create d. This section includes Allergies and Adverse Reactions (ADR s) on record with [facility] for the patient. The data comes from a ll [place] treatment facilities. It does not list Allergies/ADRs that were removed or entered in error. Some allergies/ADRs may be reported in t he Immunization section. Allergen Event Date Event Type Reaction(s) Severity Source No Known Allergies [facility] No Allergy Assessment on File JEOVANNY MORGAN Medications: VA dispensed (-15 months) and Non-VA Documented (Obtained Outside A) Section Date Range: 1) prescriptions processed by a [place] pharmacy in the last 15 m ont, and 2) all medications recorded in the [place] medical record as "non-VA medic ations". Pharmacy terms refer to [place] pharmacy's work on prescriptions. VA patient s are advised to take their medications as instructed by their health care team. The data comes from all [place] treatment facilities. Glossary of Pharmacy Terms:Active = A prescription that can be filled at the local [place] pharmacy.Active: On Hold = An active prescription that will not be filled until pharmacy resolves the issue.Active: Susp = An active prescription that is not scheduled to be filled yet.Clinic Order = A medication received during a visit to a [place] clinic or emergency department (currently not available).Discontinued = A prescription stopped by a [place] provider. It is no longer available to be filled. = A prescription which is too old to fill. This does not refer to the expiration date of the medication in the container. Non-VA = A medication that came from someplace other than a [facility] pharmacy. This may be a prescription from either the [place] or other providers that was filled outside the [place]. Or, it may be an over the [...] A DAY NEEDED 180 Jan 09, 2020 [id number] Apr 10, 2019 MAK VILLEDA ALBUTEROL SO4 0.083% INHL,3ML Discontinued USE 3 MLS IN NEBULIZER FOR INHALATION TWO TIMES A DAY NEEDED 180 Jan 27, 2019 [id number] Nov 01, 2018 BRITTANEY VILLEDA ALBUTEROL SO4 90MCG/ACTUAT (CFC-F) INHL,ORAL,6.7GM Active INHALE 2 PUFFS BY ORAL INHALATION TWO TIMES A DAY NEEDED - RINSE MOUTHPIECE FREQUENTLY TO PREVENT CLOGGING 2 Aug 30, 2019 [id number] Mar 18, 2019 BRITTANEY VILLEDA ALBUTEROL SO4 90MCG/ACTUAT (CFC-F) INHL,ORAL,6.7GM Discontin ued INHALE 2 PUFFS BY ORAL INHALATION TWO TIMES A DAY NEEDED - RINSE MOUTHPIECE FREQUENTLY TO PREVENT CLOGGING 2 Mar 27, 2019 [id number] Aug 30, 2018 BRITTANEY VILLEDA BUDESONIDE 80MCG/FORMOTEROL FUM 4.5MCG/SPRAY INHL,ORAL,10.2G M Active INHALE 2 PUFFS BY ORAL INHALATION TWO TIMES A DAY FOR BREATHING. SHAKE WELL. RINSE MOUTH AND SPIT AFTER EACH USE. 3 Jun 24, 2020 [id number] Jun 24, 2019 BRITTANEY VILLEDA BUDESONIDE 80MCG/FORMOTEROL FUM 4.5MCG/SPRAY INHL,ORAL,10.2G M Discontinued INHALE 2 PUFFS BY ORAL INHALATION TWO TIMES A DAY FOR BREATHING. SHAKE WELL. RINSE MOUTH AND SPIT AFTER EACH USE. 3 Dec 07, 2019 [id number] Mar 18, 2019 BRITTANEY VILLEDA [facility] FERROUS SO4 324MG TAB,EC Active TAKE ONE TABLET BY MOUTH TWO TIMES A DAY FOR IRON SUPPLEMENTATION. MAY TAKE WITH FOOD IF NOT TOLERATED ON EMPTY STOMACH 200 Jan 09, 2020 [id number] Apr 23, 2019 BRITTANEY VILLEDA [facility] FERROUS SO4 324MG TAB,EC Discontinued TAKE ONE TABLET BY MOUTH TWO TIMES A DAY FOR IRON SUPPLEMENTATION. MAY TAKE WITH FOOD IF NOT TOLERATED ON EMPTY STOMACH 200 May 02, 2019 [id number] Nov 14, 2018 BRITTANEY VILLEDA C FOLIC ACID 1MG TAB Active TAKE ONE TABLET BY MOUTH ONCE A DAY 90 Nov 22, 2019 [id number] Mar 18, 2019 BRITTANEY VILLEDA FOLIC ACID 1MG TAB Discontinued TAKE ONE TABLET BY MOUTH ONCE A DAY 90 May 02, 2019 [id number] Sep 26, 2018 BRITTANEY VILLEDA [facility] GABAPENTIN 300MG CAP Discontinued TAKE 2 CAPSULES BY MOUTH FOUR TITO ES A DAY 720 Jan 27, 2019 [id number] Nov 14, 2018 BRITTANEY VILLEDA [facility] GABAPENTIN 400MG CAP Active TAKE 1 CAPSULE BY MOUTH THREE TITO ES A DAY 270 Dec 07, 2019 [id number] Mar 18, 2019 BRITTANEY VILLEDA [facility] HYDROCODONE 10MG/ACETAMINOPHEN 325MG TAB Non-VA TAKE ONE TABLET BY MOUTH FOUR TIMES A DAY Non-VA Documented by: RAMY TRENT nted at: [facility] LISINOPRIL 10MG TAB Discontinued TAKE ONE-HALF TABLET BY MOUTH EVERY MORNING FOR HEART OR HIGH BLOOD PRESSURE Jun 01, 2019 [id number] Jun 02 9 BRITTANEY VILLEDA [facility] LOSARTAN 25MG TAB Active TAKE ONE TABLET BY MOUTH ONCE A DAY FOR BLOOD PRESSURE 90 Jan 09, 2020 [id number] Apr 23, 2019 BRITTANEY VILLEDA CBO C LOSARTAN 25MG TAB Discontinued TAKE ONE TABLET BY M OUTH ONCE A DAY FOR BLOOD PRESSURE 90 July 13, 2019 [id number] Nov 14, 2018 TIERRA KWONG [facility] MELOXICAM 15MG TAB TAKE ONE TABLET BY M OUTH ONCE A DAY FOR PAIN OR INFLAMMATION. 90 Jun 01, 2019 [id number] Mar 18, 2019 BRITTANEY VILLEDA METOPROLOL TARTRATE 25MG TAB Active TAKE ONE-SMITH LF TABLET BY MOUTH TWO TIMES A DAY FOR HEART/BLOOD PRESSURE. TAKE WITH OR IMMEDIATELY FOLLOWING FOOD. 90 Jan 09, 2020 [id number] Apr 23, 2019 BRITTANEY VILLEDA METOPROLOL TARTRATE 25MG TAB Discontinued TAKE ONE-SMITH LF TABLET BY MOUTH TWO TIMES A DAY FOR HEART/BLOOD PRESSURE. TAKE WITH OR IMMEDIATELY FOLLOWING FOOD. 90 July 13, 2019 [id number] Nov 14, 2018 TIERRA KWONG [facility] SIMVASTATIN 40MG TAB Active TAKE ONE-HALF TABLE T BY MOUTH AT BEDTIME FOR CHOLESTEROL - REPORT ANY UNEXPLAINED MUSCLE PAIN OR WEAKNESS TO YOUR PROVIDER 45 Sep 27, 2019 [id number] Jun 24, 2019 BRITTANEY VILLEDA CBO C SIMVASTATIN 40MG TAB Discontinued TAKE ONE-HALF TABLE T BY MOUTH AT BEDTIME FOR CHOLESTEROL - REPORT ANY UNEXPLAINED MUSCLE PAIN OR WEAKNESS TO YOUR PROVIDER 45 Sep 23, 2018 [id number] Jul 05, 2018 BRITTANEY VILLEDA C TAMSULOSIN HCL 0.4MG CAP Discontinued TAKE ONE CAPSUL E BY MOUTH ONCE A DAY FOR PROSTATE. TAKE AT THE SAME TIME EACH DAY WITH FOOD. 90 Jun 17 9 [id number] Jun 14, 2018 BRITTANEY VILLEDA TAMSULOSIN HCL 0.4MG CAP TAKE ONE CAPSUL E BY MOUTH ONCE A DAY FOR PROSTATE. TAKE AT THE SAME TIME EACH DAY WITH FOOD. 90 August 01 0 [id number] Jun 24, 2019 BRITTANEY VILLEDA TIOTROPIUM 2.5MCG/ACTUAT INHL,ORAL,60D,4GM Active INHALE 2 PUFFS BY ORAL INHALATION ONCE A DAY FOR BREATHING. DON'T USE WITH IPRATROPIUM - REPLACES ADVAIR. 3 Jun 24, 2020 [id number] Jun 24, 2019 BRITTANEY VILLEDA TIOTROPIUM 2.5MCG/ACTUAT INHL,ORAL,60D,4GM Discontinued INHALE 2 PUFFS BY ORAL INHALATION ONCE A DAY FOR BREATHING. DON'T USE WITH IPRATROPIUM - REPLACES ADVAIR. 3 Oct 13, 2019 [id number] Mar 18, 2019 RONAL,BRITTANEY B [facility] Problems (Conditions): All historical and current Section Date Range: From patient's date of to the date document was create d. This section includes a list of Problems (Conditions) know n to [place] for the patient. It includes both active and inacti ve problems (conditions). The data comes from all [place] treatment facilities. Problem Status Problem Code Date of Onset Date of Resolution Comm ent(s) Provider Source Actinic keratosis (SNOMED CT 413076450) Active 702.0 BRITTANEY VILLEDA [facility] Alcohol Dependence * (ICD-9-CM 303.90/303.91) Active 303.90 ALEXANDRA KWONG [facility] Anemia Active 285.9 [facility] ANGINA PECTORIS NEC/NOS 413.9 Active 413.9 W ALEXANDRA DE JESUS [facility] Anxiety Disorder Active 300.00 AURELIANO LINCOLN MD [facility] Benign Neoplasm Skin Head, Neck, Scalp Active 216.4 RENALDO DACOSTA [facility] CABG Active 799.9 Oct 05, 2006 E ntered By: SATHISH SCOTT Comment: feb, 4-vessel SATHISH SCOTT [facility] Chest discomfort (SNOMED CT 382722688) Active 786.59 BRITTANEY VILLEDA [facility] Chronic airway obstruction, Not Elsewhere Classified Active 496. AURELIANO LINCOLN MD [facility] Chronic Low Back Pain Active 724.2 AURELIANO LINCOLN MD [facility] COPD * (ICD-9-CM 496.) Active 496. Robin SCOTT [facility] Coronary Artery Disease * (ICD-9-CM 414.9) Active 414.9 ALEXANDRA KWONG [facility] Coronary Atherosclerosis of [place] Coronary Vessel Active 414.01 August 03, 2010 Entered By: AURELIANO LINCOLN MD Comment: Bypass surgery AURELIANO LINCOLN MD [facility] Disorder of shoulder (SNOMED CT 051165467) Active 719.91 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 AURELIANO LIU MD [facility] Marijuana Dependence unspecified Active 304.30 AURELIANO LINCOLN MD [facility] Microscopic Hematuria (ICD-9-CM 599.72) Active 599.72 BRAD[facility]EVERLY [facility] Other and unspecified hyperlipidemia Active 272.4 AURELIANO LINCOLN MD [facility] Other, mixed, or unspecified drug abuse, continuous use Active 30 5.91 Jan 30, 2009 Entered By: SATHISH SCOTT Comment: urine drug screen positive for opitates and marijuannaMay 2009 Entered By: SATHISH SCOTT Comment: buying hydrocodone "off the street" SATHISH SCOTT [facility] Pain in joint involving ankle and foot (ICD-9-CM 719.47) Active 719 .47 SATHISH SCOTT [facility] Papular eruption (SNOMED CT 657218207) Active 709.8 BRITTANEY VILLEDA [facility] Personal History of Noncompliance with M edical Treatment, Presenting Hazards to Active V15.81 SATHISH SCOTT [facility] Tobacco dependence syndrome (SNOMED CT 27659622) Active [id number] July 24, 2009 Entered By: SATHISH SCOTT Comment: one ppd YUMI AVILA [facility] Transient Ischemic Attack * (ICD-9-CM 435.9) Active 435.9 SATHISH SCOTT [facility] ANIETY STAT NOS 300.00 Inactive 300.00 Jan 05, 2005 ALEXANDRA FLOREZ [facility] Bronchitis * (ICD-9-CM 490.) Inactive 490. Jan 05, 2005 BRITTANEY VILLEDA [facility] Postsurgical Aortocoronary Bypass Status (ICD-9-CM V45.81) Inactive V45.81 Oct 05, 2006 SATHISH SCOTT [facility] Radiology Reports: +/- 30 days of [...] inform pt., thank you /nuno/ BRITTANEY VILLEDA [facility] Signed: 01/17/2019 09:39 Receipt Acknowledged By: 01/17/2019 [...] colonoscopy noted above. /nuno/ Charisse Watkins Physician [employer] Pol[employer] Signed: 01/26/2019 19:04 Receipt Acknowledged By: 01/28/2019 14:07 /es [facility] 01/28/2019 14:21 /es/ RAMY LAI STAFF NURSE 01/28/2019 ADDENDUM STATUS: COMPLETED Diagnostic Colonoscopy: (+) FIT/FOBT identified. A diagnostic Colonoscopy is due based on information available to this reminder. A colonoscopy is currently scheduled or in process of being scheduled. /nuno/ RAMY TRENT STAFF NURSE Signed: 01/28/2019 14:20 BRITTANEY VILLEDA [facility] Jan 08, 2019 09:06 AM MEDICATION MGT [...] Level of Understanding: Good Comments: /nuno/ BRITTANEY CARR-BC Signed: 01/08/2019 09:06 BRITTANEY VILLEDA [facility] Jan 08, 2019 08:44 AM PRIMARY CARE PHYSICIAN OUTPA RANJAN NOTE: LOCAL TITLE: [place]-GENERAL/PRIMARY CARE STANDARD TITLE: PRIMARY CARE PHYSICIAN OUTPATIENT [...] for depression screening. s. pt. presents to [facility] for cont. medical care, he voices no [...] exam and fasting lab /nuno/ BRITTANEY VILLEDA [facility] Signed: 01/08/2019 09:06 01/28/2019 ADDENDUM STATUS: COMPLETED Diagnostic Colonoscopy: (+) FIT/FOBT identified. A diagnostic Colonoscopy is due based on information available to this reminder. Colonoscopy consult has been ordered. See orders tab for details. /nuno/ BRITTANEY OAKLEY Signed: 01/28/2019 14:08 BRITTANEY VILLEDA [facility] Jan 08, 2019 08:28 AM NURSING OUTPATIENT NOTE: LOCAL TITLE: [place]-NURSE/[facility] STANDARD TITLE: NURSING OUTPATIENT NOTE DATE OF [...] today? *Required No Are you registered for [employer])? No - Are you interested in registering? No If 'yes' please hand [employer] brochure. [place]-LATEX REVIEW: Latex review for allergy: [...] today. Community resources (If referral -- to [facility]/) ...No When/how to obtain further treatment? [...] guard, watchful, or easily startled? NO 4. [place] numb or detached from people, activities, or your surroundings? NO 5. [place] guilty or unable to stop blaming yourself [...] to other questions. VISN 15-INFLUENZA IMMUNIZATION : [id number] INFLUENZA IMMUNIZATION V1.0 Fluad (Adjuvanted) >/= 65 yrs Influenza Vaccine given Patient given Influenza Vaccination 0.5 cc I.M. during this visit. Influenza Lot and Emission Specialist: Lot#: [id number], Expiration Date: August 11, 2019, FLUAD (Seqirus) PFS 0.5ml 15mcg, [facility]: [address]-59 Left Deltoid Patient tolerated injection well during this visit with no adverse effects. [facility] Vaccination Information Sheet (VIS) dated October 25, 2018 was given to patient. The patient's verbal consent was obtained prior to vaccination. The patient denies having a fever or is afebrile. The patient denies allergy to flu vaccine, Thimerosal, Neomycin, Polymyxin, eggs or any other component of Flu vaccine. The patient denies history of Guillain [place] Syndrome The patient denies moderate/severe illness. /nuno/ [...]
--- OUTSIDE RECORDS SUMMARY | 2019-08-20 00:54 | XMS REPORT | Encounter Summary ---
Author Author Department [facility] JUAN MANUEL posey Organization Department of [facility] Address [address] [place] [address] Phone Unavailable Care Team Providers Care Millstone Cleaner Name Role Phone BRITTANEY VILLEDA PCP Unavailable [...] PART B Apr 13, 2007 PART B [id number] [phone] JUAN MANUEL MARTIN PATIENT MEDICARE (WNR) MEDICARE (M) PART B Apr 13, 2007 PART B [id number] JUAN MANUEL MARTIN PATIENT MEDICARE (WNR) MEDICARE (M) PART A Sep 10, 2005 PART A [id number] JUAN MANUEL MARTIN PATIENT MEDICARE (WNR) MEDICARE (M) PART A Sep 10, 2005 PART A [id number] [phone] JUAN MANUEL MARTIN PATIENT MEDICARE (WNR) MEDICARE (M) PART A Sep 10, 2005 PART A [id number] MARTIN,JUAN MANUEL PATIENT Selected Encounter This section includes the information on record at [place] for the Encounter. Date/Time Encounter Type Encounter Description Reason Provider Source Nov 02, 2018 09:00 AM Outpatient Encounter COMMUNITY CARE CONSULT YUMI BROWN [facility] IHE Encounter Template Text not used by [...] 02, 2019 08:30 AM [facility] Jan 08, 2019 09:00 AM AMBULATORY - MEDICINE [facility] Jan 23, 2019 09:15 AM AMBULATORY - NONE [facility] Surgical Procedures: All associated to [...] 02, 2018 ADVANCE DIRECTIVE DISCUSSION FLO KRUEGER [facility] Oct 17, 2000 ADVANCE DIRECTIVE EUNICE RODRIGUEZ [facility], [facility]IS[facility] 15 Allergies and Adverse [...] Type Reaction(s) Severity Source No Known Allergies [facility] No Allergy Assessment on File JEOVANNY CATHY Medications: VA dispensed (-15 months) and Non-VA [...] A DAY NEEDED 180 Jan 09, 2020 [id number] Apr 10, 2019 MAK VILLEDA ALBUTEROL SO4 0.083% INHL,3ML Discontinued USE 3 MLS IN NEBULIZER FOR INHALATION TWO TIMES A DAY NEEDED 180 Jan 27, 2019 [id number] Nov 01, 2018 BRITTANEY VENEGAS ALBUTEROL SO4 90MCG/ACTUAT (CFC-F) INHL,ORAL,6.7GM Active INHALE 2 PUFFS BY ORAL INHALATION TWO TIMES A DAY NEEDED - RINSE MOUTHPIECE FREQUENTLY TO PREVENT CLOGGING 2 Aug 30, 2019 [id number] Mar 18, 2019 BRITTANEY VILLEDA ALBUTEROL SO4 90MCG/ACTUAT (CFC-F) INHL,ORAL,6.7GM Discontin ued INHALE 2 PUFFS BY ORAL INHALATION TWO TIMES A DAY NEEDED - RINSE MOUTHPIECE FREQUENTLY TO PREVENT CLOGGING 2 Mar 27, 2019 [id number] Aug 30, 2018 BRITTANEY VILLEDA BUDESONIDE 80MCG/FORMOTEROL FUM 4.5MCG/SPRAY INHL,ORAL,10.2G M Active INHALE 2 PUFFS BY ORAL INHALATION TWO TIMES A DAY FOR BREATHING. SHAKE WELL. RINSE MOUTH AND SPIT AFTER EACH USE. 3 Jun 24, 2020 [id number] Jun 24, 2019 BRITTANEY VILLEDA BUDESONIDE 80MCG/FORMOTEROL FUM 4.5MCG/SPRAY INHL,ORAL,10.2G M Discontinued INHALE 2 PUFFS BY ORAL INHALATION TWO TIMES A DAY FOR BREATHING. SHAKE WELL. RINSE MOUTH AND SPIT AFTER EACH USE. 3 Dec 07, 2019 [id number] Mar 18, 2019 BRITTANEY VILLEDA FERROUS SO4 324MG TAB,EC Active TAKE ONE TABLET BY MOUTH TWO TIMES A DAY FOR IRON SUPPLEMENTATION. MAY TAKE WITH FOOD IF NOT TOLERATED ON EMPTY STOMACH 200 Jan 09, 2020 [id number] Apr 23, 2019 BRITTANEY VILLEDA FERROUS SO4 324MG TAB,EC Discontinued TAKE ONE TABLET BY MOUTH TWO TIMES A DAY FOR IRON SUPPLEMENTATION. MAY TAKE WITH FOOD IF NOT TOLERATED ON EMPTY STOMACH 200 May 02, 2019 [id number] Nov 14, 2018 BRITTANEY VILLEDA CBO C FOLIC ACID 1MG TAB Active TAKE ONE TABLET BY MOUTH ONCE A DAY 90 Nov 22, 2019 [id number] Mar 18, 2019 BRITTANEY VILLEDA FOLIC ACID 1MG TAB Discontinued TAKE ONE TABLET BY MOUTH ONCE A DAY 90 May 02, 2019 [id number] Sep 26, 2018 BRITTANEY VILLEDA GABAPENTIN 300MG CAP Discontinued TAKE 2 CAPSULES BY MOUTH FOUR TITO ES A DAY 720 Jan 27, 2019 [id number] Nov 14, 2018 BRITTANEY VILLEDA GABAPENTIN 400MG CAP Active TAKE 1 CAPSULE BY MOUTH THREE TITO ES A DAY 270 Dec 07, 2019 [id number] Mar 18, 2019 BRITTANEY VILLEDA HYDROCODONE 10MG/ACETAMINOPHEN 325MG TAB Non-VA TAKE ONE TABLET BY MOUTH FOUR TIMES A DAY Non-VA Documented by: RAMY TRENT nted at: STEFANI SPAIN LISINOPRIL 10MG TAB Discontinued TAKE ONE-HALF TABLET BY MOUTH EVERY MORNING FOR HEART OR HIGH BLOOD PRESSURE 15 Jun 01, 2019 [id number] Jun 02, 2018 BRITTANEY VILLEDA LOSARTAN 25MG TAB Active TAKE ONE TABLET BY MOUTH ONCE A DAY FOR BLOOD PRESSURE 90 Jan 09, 2020 [id number] Apr 23, 2019 BRITTANEY VILLEDA C LOSARTAN 25MG TAB Discontinued TAKE ONE TABLET BY M OUTH ONCE A DAY FOR BLOOD PRESSURE 90 July 13, 2019 [id number] Nov 14, 2018 TIERRA KWONG [facility] MELOXICAM 15MG TAB TAKE ONE TABLET BY M OUTH ONCE A DAY FOR PAIN OR INFLAMMATION. 90 Jun 01, 2019 [id number] Mar 18, 2019 BRITTANEY VILLEDA METOPROLOL TARTRATE 25MG TAB Active TAKE ONE-SMITH LF TABLET BY MOUTH TWO TIMES A DAY FOR HEART/BLOOD PRESSURE. TAKE WITH OR IMMEDIATELY FOLLOWING FOOD. 90 Jan 09, 2020 [id number] Apr 23, 2019 BRITTANEY VILLEDA METOPROLOL TARTRATE 25MG TAB Discontinued TAKE ONE-SMITH LF TABLET BY MOUTH TWO TIMES A DAY FOR HEART/BLOOD PRESSURE. TAKE WITH OR IMMEDIATELY FOLLOWING FOOD. 90 July 13, 2019 [id number] Nov 14, 2018 TIERRA KWONG [facility] SIMVASTATIN 40MG TAB Active TAKE ONE-HALF TABLE T BY MOUTH AT BEDTIME FOR CHOLESTEROL - REPORT ANY UNEXPLAINED MUSCLE PAIN OR WEAKNESS TO YOUR PROVIDER 45 Sep 27, 2019 [id number] Jun 24, 2019 BRITTANEY VILLEDA SIMVASTATIN 40MG TAB Discontinued TAKE ONE-HALF TABLE T BY MOUTH AT BEDTIME FOR CHOLESTEROL - REPORT ANY UNEXPLAINED MUSCLE PAIN OR WEAKNESS TO YOUR PROVIDER 45 Sep 23, 2018 [id number] Jul 05, 2018 BRITTANEY VILLEDA C TAMSULOSIN HCL 0.4MG CAP Discontinued TAKE ONE CAPSUL E BY MOUTH ONCE A DAY FOR PROSTATE. TAKE AT THE SAME TIME EACH DAY WITH FOOD. 90 Jun 17 9 [id number] Jun 14, 2018 BRITTANEY VILLEDA TAMSULOSIN HCL 0.4MG CAP TAKE ONE CAPSUL E BY MOUTH ONCE A DAY FOR PROSTATE. TAKE AT THE SAME TIME EACH DAY WITH FOOD. 90 August 01 0 [id number] Jun 24, 2019 BRITTANEY VILLEDA TIOTROPIUM 2.5MCG/ACTUAT INHL,ORAL,60D,4GM Active INHALE 2 PUFFS BY ORAL INHALATION ONCE A DAY FOR BREATHING. DON'T USE WITH IPRATROPIUM - REPLACES ADVAIR. 3 Jun 24, 2020 [id number] Jun 24, 2019 BRITTANEY VILLEDA TIOTROPIUM 2.5MCG/ACTUAT INHL,ORAL,60D,4GM Discontinued INHALE 2 PUFFS BY ORAL INHALATION ONCE A DAY FOR BREATHING. DON'T USE WITH IPRATROPIUM - REPLACES ADVAIR. 3 Oct 13, 2019 [id number] Mar 18, 2019 BRITTANEY VILLEDA [facility] Problems [...] ent(s) Provider Source Actinic keratosis (SNOMED CT 153515204) Active 702.[address] [facility] Alcohol Dependence * (ICD-9-CM 303.90/303.91) Active 303.[address] [facility] Anemia Active 285.9 SATHISH SCOTT [facility] ANGINA PECTORIS NEC/NOS 413.9 Active 413[address] [facility] Anxiety Disorder Active 300.00 AURELIANO LINCOLN MD [facility] Benign Neoplasm Skin Head, Neck, Scalp Active 216.4 RENALDO DACOSTA Can [facility] CABG Active 799.9 Oct 05, 2006 E ntered By: SATHISH SCOTT Comment: feb, 4-vessel [facility] Chest discomfort (SNOMED CT 292626950) Active 786.59 BRITTANEY VILLEDA [facility] Chronic airway obstruction, Not Elsewhere Classified Active 496. AURELIANO LINCOLN MD [facility] Chronic Low Back Pain Active 724.2 AURELIANO LINCOLN MD [facility] COPD * (ICD-9-CM 496.) Active 496. Robin SCOTT [facility] Coronary Artery Disease * (ICD-9-CM 414.9) Active 414.9 ALEXANDRA KWONG [facility] Coronary Atherosclerosis of [place] Coronary Vessel Active 414.01 August 03, 2010 Entered By: AURELIANO LINCOLN MD Comment: Bypass surgery AURELIANO LINCOLN MD [facility] Disorder of shoulder (SNOMED CT 268618161) Active 719.91 BRITTANEY VILLEDA [facility] Essential Hypertension Active 401.9 AURELIANO LINCOLN MD [facility] Hyperlipidemia Active 272.4 [facility] H[facility] NOS 401.9 Active 401.9 ALEXANDRA KWONG [facility] Impotence (SNOMED CT 342677028) Active 302.72 BRITTANEY VILLEDA [facility] 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 AURELIANO LIU MD [facility] Marijuana Dependence unspecified Active 304.30 AURELIANO LINCOLN MD [facility] Microscopic Hematuria (ICD-9-CM 599.72) Active 599.72 BEVERLY SALINAS [facility] Other and unspecified hyperlipidemia Active 272.4 AURELIANO LINCOLN MD [facility] Other, mixed, or unspecified drug abuse, continuous use Active 30 5.91 Jan 30, 2009 Entered By: SATHISH SCOTT Comment: urine drug screen positive for opitates and marijuannaMay 2009 Entered By: SATHISH SCOTT Comment: buying hydrocodone "off the street" [facility] Pain in joint involving ankle and foot (ICD-9-CM 719.47) Active 719 .47 [facility] Papular eruption (SNOMED CT 380260691) Active 709.8 BRITTANEY VILLEDA [facility] Personal History of Noncompliance with M edical Treatment, Presenting Hazards to Active V15.81 [facility]ISH SCOTT [facility] Tobacco dependence syndrome (SNOMED CT 83810973) Active [id number] July 24, 2009 Entered By: SATHISH SCOTT Comment: one ppd YUMI AVILA [facility] Transient Ischemic Attack * (ICD-9-CM 435.9) Active 435.[address] [facility] ANIETY STAT NOS 300.00 Inactive 300.00 Jan 05, 2005 ALEXANDRA FLOREZ [facility] Bronchitis * (ICD-9-CM 490.) Inactive 490. Jan 05, 2005 BRITTANEY VILLEDA [facility] Postsurgical Aortocoronary Bypass Status (ICD-9-CM V45.81) Inactive V45.81 Oct 05, 2006 SATHISH SCOTT [facility] Radiology Reports: +/- 30 days of the encounter No Data Provided for This Section Pathology Reports: +/- 30 days of the encounter No Data Provided for This Section Encounter Notes: All associated encounter notes No Data Provided for This Section
--- OUTSIDE RECORDS SUMMARY | 2019-08-20 00:54 | XMS REPORT | Encounter Summary ---
Author Author [facility] JUAN MANUEL posey Organization Department of [facility] Address [address] [place] [id number] Phone Unavailable Care Team Providers Care Assistant Director Of Public Works Name Role Phone BRITTANEY VILLEDA PCP Unavailable [...] PART B Apr 13, 2007 PART B [id number] [phone] MARTINJUAN MANUEL PATIENT MEDICARE (WNR) MEDICARE (M) PART B Apr 13, 2007 PART B [id number] JUAN MANUEL MARTIN PATIENT MEDICARE (WNR) MEDICARE (M) PART A Sep 10, 2005 PART A [id number] MARTIN,JUAN MANUEL PATIENT MEDICARE (WNR) MEDICARE (M) PART A Sep 10, 2005 PART A [id number] [phone] JUAN MANUEL MARTIN PATIENT MEDICARE (WNR) MEDICARE (M) PART A Sep 10, 2005 PART A [id number] [phone] JUAN MANUEL MARTIN PATIENT Selected Encounter This section includes the information on record at [place] for the Encounter. Date/Time Encounter Type Encounter Description Reason Provider Source Nov 09, 2018 03:38 PM Outpatient Encounter COMMUNITY CARE CONSULT [facility], [place] 15 IHE Encounter Template Text not used by [place] Assessments - Encounter Diagnoses No Data Provided for This Section Plan of Treatment: Future Appointments (+ 6 months) and Future Tests (+/- 45 day s) The Plan of Treatment section includes future care activities for the patient fr om all [place] treatment facilities. This section includes future appointments and fu ture orders which are active, pending or scheduled. Future Appointments This section includes appointments that were scheduled t o occur 6 months from the date of the Encounter, up to a maximum of 20 appointme nts. The data comes from all [facility] facilities. Appointment Date/Time Appointment Type Appointment Facili [...] of a patient's completed or amen ded [place] Advance and Rescinded Directives. The entries below indicate that a direc tive exists for the patient, but an actual copy is not included with this docume nt. The data comes from all [place] facilities. Date Advance Directives Provider Source Jan 02, 2018 ADVANCE DIRECTIVE DISCUSSION FLO KRUEGER [facility] Oct 17, 2000 ADVANCE DIRECTIVE EUNICE RODRIGUEZ [facility], [place] 15 Allergies and Adverse Reactions [...] Reaction(s) Severity Source No Known Allergies [facility] No Allergy Assessment on File [facility] Medications: VA dispensed (-15 months) and Non-VA Documented (Obtained Outside [place] A) Section Date Range: 1) prescriptions processed by a [place] pharmacy in the last 15 m ont, [...] may be a prescription from either the [place] or other providers that was filled outside the [place]. Or, it may be an over the [...] A DAY NEEDED 180 Jan 09, 2020 [id number] Apr 10, 2019 MAK VILLEDA ALBUTEROL SO4 0.083% INHL,3ML Discontinued USE 3 MLS IN NEBULIZER FOR INHALATION TWO TIMES A DAY NEEDED 180 Jan 27, 2019 [id number] Nov 01, 2018 BRITTANEY VENEGAS ALBUTEROL SO4 90MCG/ACTUAT (CFC-F) INHL,ORAL,6.7GM Active INHALE 2 PUFFS BY ORAL INHALATION TWO TIMES A DAY NEEDED - RINSE MOUTHPIECE FREQUENTLY TO PREVENT CLOGGING 2 Aug 30, 2019 [id number] Mar 18, 2019 BRITTANEY VILLEDA ALBUTEROL SO4 90MCG/ACTUAT (CFC-F) INHL,ORAL,6.7GM Discontin ued INHALE 2 PUFFS BY ORAL INHALATION TWO TIMES A DAY NEEDED - RINSE MOUTHPIECE FREQUENTLY TO PREVENT CLOGGING 2 Mar 27, 2019 [id number] Aug 30, 2018 BRITTANEY VILLEDA BUDESONIDE 80MCG/FORMOTEROL FUM 4.5MCG/SPRAY INHL,ORAL,10.2G M Active INHALE 2 PUFFS BY ORAL INHALATION TWO TIMES A DAY FOR BREATHING. SHAKE WELL. RINSE MOUTH AND SPIT AFTER EACH USE. 3 Jun 24, 2020 [id number] Jun 24, 2019 BRITTANEY VILLEDA BUDESONIDE 80MCG/FORMOTEROL FUM 4.5MCG/SPRAY INHL,ORAL,10.2G M Discontinued INHALE 2 PUFFS BY ORAL INHALATION TWO TIMES A DAY FOR BREATHING. SHAKE WELL. RINSE MOUTH AND SPIT AFTER EACH USE. 3 Dec 07, 2019 [id number] Mar 18, 2019 BRITTANEY VILLEDA FERROUS SO4 324MG TAB,EC Active TAKE ONE TABLET BY MOUTH TWO TIMES A DAY FOR IRON SUPPLEMENTATION. MAY TAKE WITH FOOD IF NOT TOLERATED ON EMPTY STOMACH 200 Jan 09, 2020 [id number] Apr 23, 2019 BRITTANEY VILLEDA FERROUS SO4 324MG TAB,EC Discontinued TAKE ONE TABLET BY MOUTH TWO TIMES A DAY FOR IRON SUPPLEMENTATION. MAY TAKE WITH FOOD IF NOT TOLERATED ON EMPTY STOMACH 200 May 02, 2019 [id number] Nov 14, 2018 BRITTANEY VILLEDA CBO C FOLIC ACID 1MG TAB Active TAKE ONE TABLET BY MOUTH ONCE A DAY 90 Nov 22, 2019 [id number] Mar 18, 2019 BRITTANEY VILLEDA FOLIC ACID 1MG TAB Discontinued TAKE ONE TABLET BY MOUTH ONCE A DAY 90 May 02, 2019 [id number] Sep 26, 2018 BRITTANEY VILLEDA GABAPENTIN 300MG CAP Discontinued TAKE 2 CAPSULES BY MOUTH FOUR TITO ES A DAY 720 Jan 27, 2019 [id number] Nov 14, 2018 BRITTANEY VILLEDA GABAPENTIN 400MG CAP Active TAKE 1 CAPSULE BY MOUTH THREE TITO ES A DAY 270 Dec 07, 2019 [id number] Mar 18, 2019 BRITTANEY VILLEDA HYDROCODONE 10MG/ACETAMINOPHEN 325MG TAB Non-VA TAKE ONE TABLET BY MOUTH FOUR TIMES A DAY Non-VA Documented by: RAMY TRENT nted at: STEFANI SPAIN LISINOPRIL 10MG TAB Discontinued TAKE ONE-HALF TABLET BY MOUTH EVERY MORNING FOR HEART OR HIGH BLOOD PRESSURE 15 Jun 01, 2019 [id number] Jun 02, 2018 BRITTANEY VILLEDA [facility] LOSARTAN 25MG TAB Active TAKE ONE TABLET BY MOUTH ONCE A DAY FOR BLOOD PRESSURE 90 Jan 09, 2020 [id number] Apr 23, 2019 BRITTANEY VILLEDA C LOSARTAN 25MG TAB Discontinued TAKE ONE TABLET BY M OUTH ONCE A DAY FOR BLOOD PRESSURE 90 July 13, 2019 [id number] Nov 14, 2018 [facility] MELOXICAM 15MG TAB TAKE ONE TABLET BY M OUTH ONCE A DAY FOR PAIN OR INFLAMMATION. 90 Jun 01, 2019 [id number] Mar 18, 2019 BRITTANEY VILLEDA METOPROLOL TARTRATE 25MG TAB Active TAKE ONE-SMITH LF TABLET BY MOUTH TWO TIMES A DAY FOR HEART/BLOOD PRESSURE. TAKE WITH OR IMMEDIATELY FOLLOWING FOOD. 90 Jan 09, 2020 [id number] Apr 23, 2019 BRITTANEY VILLEDA METOPROLOL TARTRATE 25MG TAB Discontinued TAKE ONE-SMITH LF TABLET BY MOUTH TWO TIMES A DAY FOR HEART/BLOOD PRESSURE. TAKE WITH OR IMMEDIATELY FOLLOWING FOOD. 90 July 13, 2019 [id number] Nov 14, 2018 TIERRA KWONG [facility] SIMVASTATIN 40MG TAB Active TAKE ONE-HALF TABLE T BY MOUTH AT BEDTIME FOR CHOLESTEROL - REPORT ANY UNEXPLAINED MUSCLE PAIN OR WEAKNESS TO YOUR PROVIDER 45 Sep 27, 2019 [id number] Jun 24, 2019 BRITTANEY VILLEDA C SIMVASTATIN 40MG TAB Discontinued TAKE ONE-HALF TABLE T BY MOUTH AT BEDTIME FOR CHOLESTEROL - REPORT ANY UNEXPLAINED MUSCLE PAIN OR WEAKNESS TO YOUR PROVIDER 45 Sep 23, 2018 [id number] Jul 05, 2018 RONAL,BRITTANEY B KO CBO C TAMSULOSIN HCL 0.4MG CAP Discontinued TAKE ONE CAPSUL E BY MOUTH ONCE A DAY FOR PROSTATE. TAKE AT THE SAME TIME EACH DAY WITH FOOD. 90 Jun 17, 9 [id number] Jun 14, 2018 BRITTANEY VILLEDA TAMSULOSIN HCL 0.4MG CAP TAKE ONE CAPSUL E BY MOUTH ONCE A DAY FOR PROSTATE. TAKE AT THE SAME TIME EACH DAY WITH FOOD. 90 August 01 0 [id number] Jun 24, 2019 BRITTANEY VILLEDA TIOTROPIUM 2.5MCG/ACTUAT INHL,ORAL,60D,4GM Active INHALE 2 PUFFS BY ORAL INHALATION ONCE A DAY FOR BREATHING. DON'T USE WITH IPRATROPIUM - REPLACES ADVAIR. 3 Jun 24, 2020 [id number] Jun 24, 2019 BRITTANEY VILLEDA CBTER[facility] TIOTROPIUM 2.5MCG/ACTUAT INHL,ORAL,60D,4GM Discontinued INHALE 2 PUFFS BY ORAL INHALATION ONCE A DAY FOR BREATHING. DON'T USE WITH IPRATROPIUM - REPLACES ADVAIR. 3 Oct 13, 2019 [id number] Mar 18, 2019 BRITTANEY VILLEDA [facility] Problems [...] ent(s) Provider Source Actinic keratosis (SNOMED CT 236666540) Active 702.0 BRITTANEY VILLEDA [facility] Alcohol Dependence * (ICD-9-CM 303.90/303.91) Active 303.90 ALEXANDRA KWONG [facility] Anemia Active 285.9 SATHISH SCOTT [facility] ANGINA PECTORIS NEC/NOS 413.9 Active 413.9 ALEXANDRA RUELAS [facility] Anxiety Disorder Active 300.00 AURELIANO LINCOLN MD [facility] Benign Neoplasm Skin Head, Neck, Scalp Active 216.4 RENALDO DACOSTA [facility] CABG Active 799.9 Oct 05, 2006 E ntered By: SATHISH SCOTT Comment: feb, 4-vessel SATHISH SCOTT [facility] Chest discomfort (SNOMED CT 164502043) Active 786.59 BRITTANEY VILLEDA [facility] Chronic airway obstruction, Not Elsewhere Classified Active 496. AURELIANO LINCOLN MD [facility] Chronic Low Back Pain Active 724.2 AURELIANO LINCOLN MD [facility] COPD * (ICD-9-CM 496.) Active 496. Robin SCOTT [facility] Coronary Artery Disease * (ICD-9-CM 414.9) Active 414.9 ALEXANDRA KWONG [facility] Coronary Atherosclerosis of [place] Coronary Vessel Active 414.01 August 03, 2010 Entered By: AURELIANO LINCOLN MD Comment: Bypass surgery AURELIANO LINCOLN MD [facility] Disorder of shoulder (SNOMED CT 512586847) Active 719.91 BRITTANEY VILLEDA [facility] Essential Hypertension Active 401.9 AURELIANO LINCOLN MD 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 Marijuana Dependence unspecified Active 304.30 AURELIANO LINCOLN MD [facility] Microscopic Hematuria (ICD-9-CM 599.72) Active 599.[address] [facility] Other and unspecified hyperlipidemia Active 272.4 AURELIANO LINCOLN MD [facility] Other, mixed, or unspecified drug abuse, continuous use Active 30 5.91 Jan 30, 2009 Entered By: SATHISH SCOTT Comment: urine drug screen positive for opitates and marijuannaMay 2009 Entered By: SATHISH SCOTT Comment: buying hydrocodone "off the street" SATHISH SCOTT [facility] Pain in joint involving ankle and foot (ICD-9-CM 719.47) Active 719 .47 [facility] Papular eruption (SNOMED CT 681581039) Active 709.8 BRITTANEY VILLEDA [facility] Personal History of Noncompliance with M edical Treatment, Presenting Hazards to Active V15.81 SATHISH SCOTT [facility] Tobacco dependence syndrome (SNOMED CT 01068755) Active 20186192 July 24, 2009 Entered By: SATHISH SCOTT Comment: one ppd YUMI AVILA [facility] Transient Ischemic Attack * (ICD-9-CM 435.9) Active 435.9 SATHISH SCOTT [facility] ANIETY STAT NOS 300.00 Inactive 300.00 Jan 05, 2005 ALEXANDRA FLOREZ [facility] Bronchitis * (ICD-9-CM 490.) Inactive 490. Jan 05, 2005 BRITTANEY VILLEDA [facility] Postsurgical Aortocoronary Bypass Status (ICD-9-CM V45.81) Inactive V45.81 Oct 05, 2006 SATHISH SCOTT [facility] Radiology Reports: +/- 30 days [...] CEVALLOS AMSA Signed: 11/09/2018 15:38 ANAMARIA CEVALLOS [facility]
--- OUTSIDE RECORDS SUMMARY | 2019-08-20 00:54 | XMS REPORT | Encounter Summary ---
Author Author Department [facility] Organization [facility] Address [address] [place] [address] Phone Unavailable Care Team Providers Care Insulator Apprentice Name Role Phone BRITTANEY VILLEDA PCP Unavailable [...] PART B Apr 13, 2007 PART B [id number] [phone] JUAN MANUEL MARTIN PATIENT MEDICARE (WNR) MEDICARE (M) PART B Apr 13, 2007 PART B [id number] JUAN MANUEL MARTIN PATIENT MEDICARE (WNR) MEDICARE (M) PART A Sep 10, 2005 PART A [id number] MARTIN,GARY PATIENT MEDICARE (WNR) MEDICARE (M) PART A Sep 10, 2005 PART A [id number] [phone] JUAN MANUEL MARTIN PATIENT MEDICARE (WNR) MEDICARE (M) PART A Sep 10, 2005 PART A [id number] VERONICAJUAN MANUEL PATIENT Selected Encounter This section includes the information on record at [place] for the Encounter. Date/Time Encounter Type Encounter Description Reason Provider Source Oct 10, 2018 03:22 PM Outpatient Encounter ADMIN PAT ACTIVTIES (MELANIE CUADRA) [facility] IHE Encounter Template Text not used by AR Assessments - Encounter Diagnoses No Data Provided for This Section Plan of Treatment: Future Appointments (+ 6 months) and Future Tests (+/- 45 day s) The Plan of Treatment section includes future care activities for the patient fr om all AR treatment facilities. This section includes future appointments and fu ture orders which are active, pending or scheduled. Future Appointments This section includes appointments that were scheduled t o occur 6 months from the date of the Encounter, up to a maximum of 20 appointme nts. The data comes from all AR treatment facilities. Appointment Date/Time Appointment Type Appointment Facili ty Name Nov 02, 2018 09:00 AM AMBULATORY - MEDICINE [facility] Jan 02, 2019 08:30 AM AMBULATORY - NONE [facility] Jan 08, 2019 09:00 AM AMBULATORY - MEDICINE [facility] Jan 23, 2019 09:15 AM AMBULATORY - NONE [facility] Surgical Procedures: All associated to [...] and tobacco- related health factors from the AR facility where the Encounter took place. Current Smoking Status This section includes the most current smoking, or tobacco -related health factor, from the AR facility where the Encounter took place. Date/Time Current Smoking Status Comment Facility May 28, 2018 11:45 AM VA-TOBACCO FORMER USER [facility] Tobacco Use History This section includes a history of the smoking, or tobacco -related health factors, that were collected on or before the date of the Encoun ter. The data comes from the AR facility where the Encounter took place. Date/Time Smoking Status/Tobacco Use Comment [facility] May 28, 2018 11:45 AM VA-TOBACCO QUIT 15 YRS OR MORE [place] [facility] Dec 25, 2017 02:23 PM NON-TOBACCO USER KO [facility] Jan 25, 2017 09:53 AM NON-TOBACCO USER KO [facility] Dec 22, 2015 09:45 AM NON-TOBACCO USER STEFANI [facility] Advance Directives: All historical and current [...] docume nt. The data comes from all AR facilities. Date Advance Directives Provider Source Jan 02, 2018 ADVANCE DIRECTIVE DISCUSSION FLO KRUEGER [facility] Oct 17, 2000 ADVANCE DIRECTIVE EUNICE RODRIGUEZ [facility], [place] 15 Allergies and Adverse Reactions (ADRs): All historical and current Section Date Range: From patient's date of to the date document was create d. This section includes Allergies and Adverse Reactions (ADR s) on record with VA for the patient. The data comes from a ll AR treatment facilities. It does not list Allergies/ADRs that were removed or entered in error. Some allergies/ADRs may be reported in t he Immunization section. Allergen Event Date Event Type Reaction(s) Severity Source No Known Allergies [facility] No Allergy Assessment on File [facility] Medications: VA dispensed (-15 months) and Non-VA Documented (Obtained Outside V A) Section Date Range: 1) prescriptions processed by a AR pharmacy in the last 15 m ont, and 2) all medications recorded in the AR medical record as "non-VA medic ations". Pharmacy terms refer to AR pharmacy's work on prescriptions. VA patient s are advised to take their medications as instructed by their health care team. The data comes from all AR treatment facilities. Glossary of Pharmacy Terms:Active = A prescription that can be filled at the local AR pharmacy.Active: On Hold = An active prescription that will not be filled until pharmacy resolves the issue.Active: Susp = An active prescription that is not scheduled to be filled yet.Clinic Order = A medication received during a visit to a AR clinic or emergency department (currently not available).Discontinued [...] may be a prescription from either the AR or other providers that was filled outside the AR. Or, it may be an over the [...] A DAY NEEDED 180 Jan 09, 2020 [id number] Apr 10, 2019 MAK VILLEDA CBTERRENCE ALBUTEROL SO4 0.083% INHL,3ML Discontinued USE 3 MLS IN NEBULIZER FOR INHALATION TWO TIMES A DAY NEEDED 180 Jan 27, 2019 [id number] Nov 01, 2018 BRITTANEY VENEGAS ALBUTEROL SO4 90MCG/ACTUAT (CFC-F) INHL,ORAL,6.7GM Active INHALE 2 PUFFS BY ORAL INHALATION TWO TIMES A DAY NEEDED - RINSE MOUTHPIECE FREQUENTLY TO PREVENT CLOGGING 2 Aug 30, 2019 [id number] Mar 18, 2019 BRITTANEY VILLEDA ALBUTEROL SO4 90MCG/ACTUAT (CFC-F) INHL,ORAL,6.7GM Discontin ued INHALE 2 PUFFS BY ORAL INHALATION TWO TIMES A DAY NEEDED - RINSE MOUTHPIECE FREQUENTLY TO PREVENT CLOGGING 2 Mar 27, 2019 [id number] Aug 30, 2018 BRITTANEY VILLEDA BUDESONIDE 80MCG/FORMOTEROL FUM 4.5MCG/SPRAY INHL,ORAL,10.2G M Active INHALE 2 PUFFS BY ORAL INHALATION TWO TIMES A DAY FOR BREATHING. SHAKE WELL. RINSE MOUTH AND SPIT AFTER EACH USE. 3 Jun 24, 2020 [id number] Jun 24, 2019 BRITTANEY VILLEDA BUDESONIDE 80MCG/FORMOTEROL FUM 4.5MCG/SPRAY INHL,ORAL,10.2G M Discontinued INHALE 2 PUFFS BY ORAL INHALATION TWO TIMES A DAY FOR BREATHING. SHAKE WELL. RINSE MOUTH AND SPIT AFTER EACH USE. 3 Dec 07, 2019 [id number] Mar 18, 2019 BRITTANEY VILLEDA FERROUS SO4 324MG TAB,EC Active TAKE ONE TABLET BY MOUTH TWO TIMES A DAY FOR IRON SUPPLEMENTATION. MAY TAKE WITH FOOD IF NOT TOLERATED ON EMPTY STOMACH 200 Jan 09, 2020 [id number] Apr 23, 2019 BRITTANEY VILLEDA FERROUS SO4 324MG TAB,EC Discontinued TAKE ONE TABLET BY MOUTH TWO TIMES A DAY FOR IRON SUPPLEMENTATION. MAY TAKE WITH FOOD IF NOT TOLERATED ON EMPTY STOMACH 200 May 02, 2019 [id number] Nov 14, 2018 BRITTANEY VILLEDA C FOLIC ACID 1MG TAB Active TAKE ONE TABLET BY MOUTH ONCE A DAY 90 Nov 22, 2019 [id number] Mar 18, 2019 BRITTANEY VILLEDA FOLIC ACID 1MG TAB Discontinued TAKE ONE TABLET BY MOUTH ONCE A DAY 90 May 02, 2019 [id number] Sep 26, 2018 BRITTANEY VILLEDA GABAPENTIN 300MG CAP Discontinued TAKE 2 CAPSULES BY MOUTH FOUR TITO ES A DAY 720 Jan 27, 2019 [id number] Nov 14, 2018 BRITTANEY VILLEDA GABAPENTIN 400MG CAP Active TAKE 1 CAPSULE BY MOUTH THREE TITO ES A DAY 270 Dec 07, 2019 [id number] Mar 18, 2019 BRITTANEY VILLEDA HYDROCODONE 10MG/ACETAMINOPHEN 325MG TAB Non-VA TAKE ONE TABLET BY MOUTH FOUR TIMES A DAY Non-VA Documented by: RAMY TRENT nted at: STEFANI [facility] LISINOPRIL 10MG TAB Discontinued TAKE ONE-HALF TABLET BY MOUTH EVERY MORNING FOR HEART OR HIGH BLOOD PRESSURE 15 Jun 01, 2019 [id number] Jun 02, 2018 BRITTANEY VILLEDA [facility] [place] 25MG TAB Active TAKE ONE TABLET BY MOUTH ONCE A DAY FOR BLOOD PRESSURE 90 Jan 09, 2020 [id number] Apr 23, 2019 BRITTANEY VILLEDA C [place]ARTAN 25MG TAB Discontinued TAKE ONE TABLET BY M OUTH ONCE A DAY FOR BLOOD PRESSURE 90 July 13, 2019 [id number] Nov 14, 2018 TIERRA KWONG [facility] MELOXICAM 15MG TAB TAKE ONE TABLET BY M OUTH ONCE A DAY FOR PAIN OR INFLAMMATION. 90 Jun 01, 2019 [id number] Mar 18, 2019 BRITTANEY VLILEDA METOPROLOL TARTRATE 25MG TAB Active TAKE ONE-SMITH LF TABLET BY MOUTH TWO TIMES A DAY FOR HEART/BLOOD PRESSURE. TAKE WITH OR IMMEDIATELY FOLLOWING FOOD. 90 Jan 09, 2020 [id number] Apr 23, 2019 BRITTANEY VILLEDA METOPROLOL TARTRATE 25MG TAB Discontinued TAKE ONE-SMITH LF TABLET BY MOUTH TWO TIMES A DAY FOR HEART/BLOOD PRESSURE. TAKE WITH OR IMMEDIATELY FOLLOWING FOOD. 90 July 13, 2019 [id number] Nov 14, 2018 TIERRA KWONG [facility] SIMVASTATIN 40MG TAB Active TAKE ONE-HALF TABLE T BY MOUTH AT BEDTIME FOR CHOLESTEROL - REPORT ANY UNEXPLAINED MUSCLE PAIN OR WEAKNESS TO YOUR PROVIDER 45 Sep 27, 2019 [id number] Jun 24, 2019 BRITTANEY VILLEDA CBO C SIMVASTATIN 40MG TAB Discontinued TAKE ONE-HALF TABLE T BY MOUTH AT BEDTIME FOR CHOLESTEROL - REPORT ANY UNEXPLAINED MUSCLE PAIN OR WEAKNESS TO YOUR PROVIDER 45 Sep 23, 2018 [id number] Jul 05, 2018 BRITTANEY VILLEDA CBO C TAMSULOSIN HCL 0.4MG CAP Discontinued TAKE ONE CAPSUL E BY MOUTH ONCE A DAY FOR PROSTATE. TAKE AT THE SAME TIME EACH DAY WITH FOOD. 90 Jun 17, 9 [id number] Jun 14, 2018 BRITTANEY VILLEDA TAMSULOSIN HCL 0.4MG CAP TAKE ONE CAPSUL E BY MOUTH ONCE A DAY FOR PROSTATE. TAKE AT THE SAME TIME EACH DAY WITH FOOD. 90 August 01 0 [id number] Jun 24, 2019 BRITTANEY VILLEDA TIOTROPIUM 2.5MCG/ACTUAT INHL,ORAL,60D,4GM Active INHALE 2 PUFFS BY ORAL INHALATION ONCE A DAY FOR BREATHING. DON'T USE WITH IPRATROPIUM - REPLACES ADVAIR. 3 Jun 24, 2020 [id number] Jun 24, 2019 BRITTANEY VILLEDA TIOTROPIUM 2.5MCG/ACTUAT INHL,ORAL,60D,4GM Discontinued INHALE 2 PUFFS BY ORAL INHALATION ONCE A DAY FOR BREATHING. DON'T USE WITH IPRATROPIUM - REPLACES ADVAIR. 3 Oct 13, 2019 [id number] Mar 18, 2019 BRITTANEY VILLEDA [facility] Problems (Conditions): All historical and current Section Date Range: From patient's date of to the date document was create d. This section includes a list of Problems (Conditions) know n to AR for the patient. It includes both active and inacti ve problems (conditions). The data comes from all [place] treatment facilities. Problem Status Problem Code Date of Onset Date of Resolution Comm ent(s) Provider Source Actinic keratosis (SNOMED CT 868940127) Active 702.0 BRITTANEY VILLDEA [facility] Alcohol Dependence * (ICD-9-CM 303.90/303.91) Active 303.90 ALEXANDRA KWONG [facility] Anemia Active 285.9 [facility] ANGINA PECTORIS NEC/NOS 413.9 Active 413.9 W ALEXANDRA DE JESUS [facility] Anxiety Disorder Active 300.00 AURELIANO LINCOLN MD [facility] Benign Neoplasm Skin Head, Neck, Scalp Active 216.4 RENALDO DACOSTA [facility] CABG Active 799.9 Oct 05, 2006 E ntered By: SATHISH SCOTT Comment: feb, 4-vessel SATHISH SCOTT [facility] Chest discomfort (SNOMED CT 947887088) Active 786.59 BRITTANEY VILLEDA [facility] Chronic airway obstruction, Not Elsewhere Classified Active 496. AURELIANO LINCOLN MD [facility] Chronic Low Back Pain Active 724.2 AURELIANO LINCOLN MD [facility] COPD * (ICD-9-CM 496.) Active 496. Robin SCOTT [facility] Coronary Artery Disease * (ICD-9-CM 414.9) Active 414.9 ALEXANDRA KWONG [facility] Coronary Atherosclerosis of [place] Coronary Vessel Active 414.01 August 03, 2010 Entered By: AURELIANO LINCOLN MD Comment: Bypass surgery AURELIANO LINCOLN MD [facility] Disorder of shoulder (SNOMED CT 905363477) Active 719.91 BRITTANEY VILLEDA [facility] Essential Hypertension Active 401.9 AURELIANO LINCOLN MD [facility] Hyperlipidemia Active 272.4 SATHISH SCOTT [facility] HYPERTENSION NOS 401.9 Active 401.9 ALEXANDRA KWONG [facility] Impotence (SNOMED CT 608745356) Active 302.72 BRITTANEY VILLEDA [facility] 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 AURELIANO LIU MD [facility] Marijuana Dependence unspecified Active 304.30 AURELIANO LINCOLN MD [facility] Microscopic Hematuria (ICD-9-CM 599.72) Active 599.72 BEVERLY SALINAS [facility] Other and unspecified hyperlipidemia Active 272.4 AURELIANO LINCOLN MD [facility] Other, mixed, or unspecified drug abuse, continuous use Active 30 5.91 Jan 30, 2009 Entered By: SATHISH SCOTT Comment: urine drug screen positive for opitates and marijuannaMay 2009 Entered By: SATHISH SCOTT Comment: buying hydrocodone "off the street" [facility] Pain in joint involving ankle and foot (ICD-9-CM 719.47) Active 719 .47 [facility] Papular eruption (SNOMED CT 746371821) Active 709.8 [facility] Personal History of Noncompliance with M edical Treatment, Presenting Hazards to Active V15.81 [facility]ISH SCOTT [facility] Tobacco dependence syndrome (SNOMED CT 87131466) Active [id number] July 24, 2009 Entered By: SATHISH SCOTT Comment: one ppd YUMI AVILA [facility] Transient Ischemic Attack * (ICD-9-CM 435.9) Active 435.9 [facility] ANIETY STAT NOS 300.00 Inactive 300.00 Jan 05, 2005 [facility] Bronchitis * (ICD-9-CM 490.) Inactive 490. Jan 05, 2005 [facility] Postsurgical Aortocoronary Bypass Status (ICD-9-CM V45.81) Inactive V45.81 Oct 05, 2006 SATHISH SCOTT [facility] Radiology Reports: +/- 30 days of [...] for fluticasone propion Date(s) of record(s):10/10/2018 Sending democrat:[facility] /nuno/ DARCY KO Signed: 10/10/2018 15:23 DARCY WEN OC
--- OUTSIDE RECORDS SUMMARY | 2019-08-20 00:54 | XMS REPORT | Encounter Summary ---
Author Author [facility] JUAN MANUEL posey Organization Department of [facility] Address [address] [place] [phone] Phone Unavailable Care Team Providers Care Locomotive Engineer Name Role Phone BRITTANEY VILLEDA PCP Unavailable [...] PART B Apr 13, 2007 PART B [id number] [phone] MARTINJUAN MANUEL PATIENT MEDICARE (WNR) MEDICARE (M) PART B Apr 13, 2007 PART B [id number] [id number] JUAN MANUEL MARTIN PATIENT MEDICARE (WNR) MEDICARE (M) PART A Sep 10, 2005 PART A [id number] MARTIN,JUAN MANUEL PATIENT MEDICARE (WNR) MEDICARE (M) PART A Sep 10, 2005 PART A [id number] [phone] JUAN MANUEL MARTIN PATIENT MEDICARE (WNR) MEDICARE (M) PART A Sep 10, 2005 PART A [id number] JUAN MANUEL MARTIN PATIENT Selected Encounter This section includes the information on record at [place] for the Encounter. Date/Time Encounter Type Encounter Description Reason Provider Source Oct 22, 2018 02:32 PM Outpatient Encounter COMMUNITY CARE CONSULT [facility], VISN 15 IHE Encounter Template Text not used by [place] Assessments - Encounter Diagnoses No Data Provided [...] 2019 08:30 AM AMBULATORY - NONE [facility] Jan 08, 2019 09:00 AM AMBULATORY - MEDICINE [facility] Jan 23, 2019 09:15 AM AMBULATORY - NONE [facility] Surgical Procedures: All associated to the encounter [...] of a patient's completed or amen ded [place] Advance and Rescinded Directives. The entries below indicate that a direc tive exists for the patient, but an actual copy is not included with this docume nt. The data comes from all [place] facilities. Date Advance Directives Provider Source Jan 02, 2018 ADVANCE DIRECTIVE DISCUSSION FLO KRUEGER [facility] Oct 17, 2000 ADVANCE DIRECTIVE [...] MEDICAL CENTER No Allergy Assessment on File JEOVANNY MORGAN [...] may be a prescription from either the [place] or other providers that was filled outside the [place]. Or, it may be an over the [...] A DAY NEEDED 180 Jan 09, 2020 [id number] Apr 10, 2019 MAK VILLEDA ALBUTEROL SO4 0.083% INHL,3ML Discontinued USE 3 MLS IN NEBULIZER FOR INHALATION TWO TIMES A DAY NEEDED 180 Jan 27, 2019 [id number] Nov 01, 2018 BRITTANEY VENEGAS ALBUTEROL SO4 90MCG/ACTUAT (CFC-F) INHL,ORAL,6.7GM Active INHALE 2 PUFFS BY ORAL INHALATION TWO TIMES A DAY NEEDED - RINSE MOUTHPIECE FREQUENTLY TO PREVENT CLOGGING 2 Aug 30, 2019 [id number] Mar 18, 2019 BRITTANEY VILLEDA ALBUTEROL SO4 90MCG/ACTUAT (CFC-F) INHL,ORAL,6.7GM Discontin ued INHALE 2 PUFFS BY ORAL INHALATION TWO TIMES A DAY NEEDED - RINSE MOUTHPIECE FREQUENTLY TO PREVENT CLOGGING 2 Mar 27, 2019 [id number] Aug 30, 2018 BRITTANEY VILLEDA BUDESONIDE 80MCG/FORMOTEROL FUM 4.5MCG/SPRAY INHL,ORAL,10.2G M Active INHALE 2 PUFFS BY ORAL INHALATION TWO TIMES A DAY FOR BREATHING. SHAKE WELL. RINSE MOUTH AND SPIT AFTER EACH USE. 3 Jun 24, 2020 [id number] Jun 24, 2019 BRITTANEY VILLEDA BUDESONIDE 80MCG/FORMOTEROL FUM 4.5MCG/SPRAY INHL,ORAL,10.2G M Discontinued INHALE 2 PUFFS BY ORAL INHALATION TWO TIMES A DAY FOR BREATHING. SHAKE WELL. RINSE MOUTH AND SPIT AFTER EACH USE. 3 Dec 07, 2019 [id number] Mar 18, 2019 BRITTANEY VILLEDA FERROUS SO4 324MG TAB,EC Active TAKE ONE TABLET BY MOUTH TWO TIMES A DAY FOR IRON SUPPLEMENTATION. MAY TAKE WITH FOOD IF NOT TOLERATED ON EMPTY STOMACH 200 Jan 09, 2020 [id number] Apr 23, 2019 BRITTANEY VILLEDA FERROUS SO4 324MG TAB,EC Discontinued TAKE ONE TABLET BY MOUTH TWO TIMES A DAY FOR IRON SUPPLEMENTATION. MAY TAKE WITH FOOD IF NOT TOLERATED ON EMPTY STOMACH 200 May 02, 2019 [id number] Nov 14, 2018 BRITTANEY VILLEDA CBO C FOLIC ACID 1MG TAB Active TAKE ONE TABLET BY MOUTH ONCE A DAY 90 Nov 22, 2019 [id number] Mar 18, 2019 BRITTANEY VILLEDA FOLIC ACID 1MG TAB Discontinued TAKE ONE TABLET BY MOUTH ONCE A DAY 90 May 02, 2019 [id number] Sep 26, 2018 BRITTANEY VILLEDA GABAPENTIN 300MG CAP Discontinued TAKE 2 CAPSULES BY MOUTH FOUR TITO ES A DAY 720 Jan 27, 2019 [id number] Nov 14, 2018 BRITTANEY VILLEDA GABAPENTIN 400MG CAP Active TAKE 1 CAPSULE BY MOUTH THREE TITO ES A DAY 270 Dec 07, 2019 [id number] Mar 18, 2019 BRITTANEY VILLEDA HYDROCODONE 10MG/ACETAMINOPHEN 325MG TAB Non-VA TAKE ONE TABLET BY MOUTH FOUR TIMES A DAY Non-[place] Documented by: RAMY TRENT nted at: STEFANI SPAIN LISINOPRIL 10MG TAB Discontinued TAKE ONE-HALF TABLET BY MOUTH EVERY MORNING FOR HEART OR HIGH BLOOD PRESSURE 15 Jun 01, 2019 [id number] Jun 02, 2018 BRITTANEY VILLEDA LOSARTAN 25MG TAB Active TAKE ONE TABLET BY MOUTH ONCE A DAY FOR BLOOD PRESSURE 90 Jan 09, 2020 [id number] Apr 23, 2019 BRITTANEY VILLEDA C LOSARTAN 25MG TAB Discontinued TAKE ONE TABLET BY M OUTH ONCE A DAY FOR BLOOD PRESSURE 90 July 13, 2019 [id number] Nov 14, 2018 TIERRA KWONG [facility] MELOXICAM 15MG TAB TAKE ONE TABLET BY M OUTH ONCE A DAY FOR PAIN OR INFLAMMATION. 90 Jun 01, 2019 [id number] Mar 18, 2019 BRITTANEY VILLEDA METOPROLOL TARTRATE 25MG TAB Active TAKE ONE-SMITH LF TABLET BY MOUTH TWO TIMES A DAY FOR HEART/BLOOD PRESSURE. TAKE WITH OR IMMEDIATELY FOLLOWING FOOD. 90 Jan 09, 2020 [id number] Apr 23, 2019 BRITTANEY VILLEDA METOPROLOL TARTRATE 25MG TAB Discontinued TAKE ONE-SMITH LF TABLET BY MOUTH TWO TIMES A DAY FOR HEART/BLOOD PRESSURE. TAKE WITH OR IMMEDIATELY FOLLOWING FOOD. 90 July 13, 2019 [id number] Nov 14, 2018 TIERRA KWONG [facility] SIMVASTATIN 40MG TAB Active TAKE ONE-HALF TABLE T BY MOUTH AT BEDTIME FOR CHOLESTEROL - REPORT ANY UNEXPLAINED MUSCLE PAIN OR WEAKNESS TO YOUR PROVIDER 45 Sep 27, 2019 [id number] Jun 24, 2019 BRITTANEY VILLEDA C SIMVASTATIN 40MG TAB Discontinued TAKE ONE-HALF TABLE T BY MOUTH AT BEDTIME FOR CHOLESTEROL - REPORT ANY UNEXPLAINED MUSCLE PAIN OR WEAKNESS TO YOUR PROVIDER 45 Sep 23, 2018 [id number] Jul 05, 2018 BRITTANEY VILLEDAONS CBO C TAMSULOSIN HCL 0.4MG CAP Discontinued TAKE ONE CAPSUL E BY MOUTH ONCE A DAY FOR PROSTATE. TAKE AT THE SAME TIME EACH DAY WITH FOOD. 90 Jun 17 9 [id number] Jun 14, 2018 BRITTANEY VILLEDAONS [facility] TAMSULOSIN HCL 0.4MG CAP TAKE ONE CAPSUL E BY MOUTH ONCE A DAY FOR PROSTATE. TAKE AT THE SAME TIME EACH DAY WITH FOOD. 90 August 01 0 [id number] Jun 24, 2019 BRITTANEY VILLEDA [facility] TIOTROPIUM 2.5MCG/ACTUAT INHL,ORAL,60D,4GM Active INHALE 2 PUFFS BY ORAL INHALATION ONCE A DAY FOR BREATHING. DON'T USE WITH IPRATROPIUM - REPLACES ADVAIR. 3 Jun 24, 2020 [id number] Jun 24, 2019 BRITTANEY VILLEDA ONS [facility] TIOTROPIUM 2.5MCG/ACTUAT INHL,ORAL,60D,4GM Discontinued INHALE 2 PUFFS BY ORAL INHALATION ONCE A DAY FOR BREATHING. DON'T USE WITH IPRATROPIUM - REPLACES ADVAIR. 3 Oct 13, 2019 [id number] Mar 18, 2019 BRITTANEY VILLEDA PARS ONS [...] ent(s) Provider Source Actinic keratosis (SNOMED CT 271695778) Active 702.0 BRITTANEY VILLEDA [facility] Alcohol Dependence * (ICD-9-CM 303.90/303.91) Active 303.90 ALEXANDRA KWONG [facility] Anemia Active 285.[address] [facility] ANGINA PECTORIS NEC/NOS 413.9 Active 413.9 ALEXANDRA RUELAS [facility] Anxiety Disorder Active 300.00 AURELIANO LINCOLN MD [facility] Benign Neoplasm Skin Head, Neck, Scalp Active 216.4 SANTOSCRENALDO HUNT YUMI [facility] CABG Active 799.9 Oct 05, 2006 E ntered By: SATHISH SCOTT Comment: feb, 4-vessel [facility] Chest discomfort (SNOMED CT 374853160) Active 786.59 BRITTANEY VILLEDA [facility] Chronic airway obstruction, Not Elsewhere Classified Active 496. AURELIANO LINCOLN MD [facility] Chronic Low Back Pain Active 724.2 AURELIANO LINCOLN MD [facility] COPD * (ICD-9-CM 496.) Active 496. Robin SCOTT [facility] Coronary Artery Disease * (ICD-9-CM 414.9) Active 414.9 ALEXANDRA KWONG [facility] Coronary Atherosclerosis of [place] Coronary Vessel Active 414.01 August 03, 2010 Entered By: AURELIANO LINCOLN MD Comment: Bypass surgery AURELIANO LINCOLN MD [facility] Disorder of shoulder (SNOMED CT 912501024) Active 719.91 BRITTANEY VILLEDA [facility] Essential Hypertension Active 401.9 AURELIANO LINCOLN MD [facility] Hyperlipidemia Active 272.4 SATHISH SCOTT [facility] HYPERTENSION NOS 401.9 Active 401.9 ALEXANDRA KWONG [facility] Impotence (SNOMED CT 306473196) Active 302.72 BRITTANEY VILLEDA [facility] 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 AURELIANO LIU MD [facility] Marijuana Dependence unspecified Active 304.30 AURELIANO LINCOLN MD [facility] Microscopic Hematuria (ICD-9-CM 599.72) Active 599.72 [facility] Other and unspecified hyperlipidemia Active 272.4 AURELIANO LINCOLN MD [facility] Other, mixed, or unspecified drug abuse, continuous use Active 30 5.91 Jan 30, 2009 Entered By: SATHISH SCOTT Comment: urine drug screen positive for opitates and marijuannaMay 2009 Entered By: SATHISH SCOTT Comment: buying hydrocodone "off the street" [facility] Pain in joint involving ankle and foot (ICD-9-CM 719.47) Active 719 .47 SATHISH SCOTT [facility] Papular eruption (SNOMED CT 889691470) Active 709.8 BRITTANEY VILLEDA [facility] Personal History of Noncompliance with M edical Treatment, Presenting Hazards to Active V15.81 SATHISH SCOTT [facility] Tobacco dependence syndrome (SNOMED CT 90624948) Active [id number] July 24, 2009 Entered By: SATHISH SCOTT Comment: [facility] YUMI AVILA [facility] Transient Ischemic Attack * (ICD-9-CM 435.9) Active 435.9 SATHISH SCOTT [facility] ANIETY STAT NOS 300.00 Inactive 300.00 Jan 05, 2005 ALEXANDRA FLOREZ [facility] Bronchitis * (ICD-9-CM 490.) Inactive 490. Jan 05, 2005 BRITTANEY VILLEDA [facility] Postsurgical Aortocoronary Bypass Status (ICD-9-CM V45.81) Inactive V45.81 Oct 05, 2006 SATHISH SCOTT [facility] Radiology Reports: +/- 30 days [...] SULMA PLEITEZ EXP COSIGNER: URGENCY: STATUS: COMPLETED [facility] Community Care ([facility]) Program Department of [facility] Choice Approval for Medical Care VA-Form [id number] Certain protected health information (PHI) may be enclosed; specifically information related to Drug Abuse, Alcoholism or Alcohol Abuse, Sickle Cell Anemia, and Human Immunodeficiency Virus (HIV). This specific PHI may NOT be re-disclosed or used by the recipient person or office for any purpose other than that for which the disclosure was made. [Ref. 38 [facility] 7332(b)(2)(H)(ii)] The information is b eing disclosed by [place] only for the treatment and care of [...] Frequency, and Duration: Duration: 180 days or [facility] Preferred Provider Name and Contact Information: Eligibility Verification: As the authorized [place] apprenticeship training representative, I hereby confirm that the is eligible for Community Care services. The 's basic eligibility was verified on . Contact the Facility Community Care Office first to provide information to the VA or to reach a [place] ordering provider. All contact from the contractor will be documented in the [place]'s record by the [facility] community Care and the VA provider will be notified for awareness. Report all Critical Findings related to this authorization to the issuing office below. All other questions regarding this authorization should be directed to: [facility] [phone] Facility: [facility] Office of Community Care (OCC) Contact: Local [place] Office of Community Care (OCC) Transportation Dispatch Manager or Equivalent: Name: Paul Manning Title: Nurse Transportation Dispatch Manager [facility] Contact Number (Normal Business Hours): [phone] AOD/Emergency Contact After Hours Number: [phone] From Station Number: [id number] Facility Name: Yumi Taylor [facility] [address] Address: [address] [place] [address] City: [place] State: [place] Zip: [address] Information: Name: JUAN MANUEL MARTIN : Nov SSN: [id number] Address: [address] [place] [address] In accordance with 38 CFR 17.5638-2815, [place] will pay for non-VA hospital care and medical services that are authorized by [place] for Veterans who are determined by [place] to meet the Veterans Choice Program eligibility criteria set forth by section 101 of the Act and 38 CFR 17.1510 and any other eligibility standards that may apply to particular services (such as health care for newborns of Veterans under 38 CFR 17.38(a)(xiv) and dental benefits under 17.160-17.169). /nuno/ SULMA PLEITEZ Signed: 10/22/2018 14:34 SULMA PLEITEZ [facility]
--- OUTSIDE RECORDS SUMMARY | 2019-08-20 00:54 | XMS REPORT | Encounter Summary ---
Author Author [facility] JUAN MANUEL posey Organization Department of [facility] Address [address] [place] [id number] Phone Unavailable Care Team Providers Care Farm Operator Name Role Phone BRITTANEY VILLEDA PCP [...] PART B Apr 13, 2007 PART B [id number] [phone] MARTIN,JUAN MANUEL PATIENT MEDICARE (WNR) MEDICARE (M) PART B Apr 13, 2007 PART B [id number] JUAN MANUEL MARTIN PATIENT MEDICARE (WNR) MEDICARE (M) PART A Sep 10, 2005 PART A [id number] [phone] VERONICAJUAN MANUEL PATIENT MEDICARE (WNR) MEDICARE (M) PART A Sep 10, 2005 PART A [id number] [phone] JUAN MANUEL MARTIN PATIENT MEDICARE (WNR) MEDICARE (M) PART A Sep 10, 2005 PART A [id number] [phone] JUAN MANUEL MARTIN PATIENT Selected Encounter This section includes the information on record at [place] for the Encounter. Date/Time Encounter Type Encounter Description Reason Provider Source Oct 29, 2018 03:38 PM Outpatient Encounter COMMUNITY CARE CONSULT [facility] 15 IHE Encounter Template Text not used by [place] Assessments - Encounter Diagnoses No Data Provided for This Section Plan of Treatment: Future Appointments (+ 6 months) and Future Tests (+/- 45 day s) The Plan of Treatment section includes future care activities for the patient fr om all [place] treatment facilities. This section includes future appointments and fu ture orders which are active, pending or scheduled. Future Appointments This section includes appointments that were scheduled t o occur 6 months from the date of the Encounter, up to a maximum of 20 appointme nts. The data comes from all [place] treatment facilities. Appointment Date/Time Appointment Type Appointment Facili ty Name Nov 02, 2018 09:00 AM [facility]ATORY - MEDICINE [facility] Jan 02, 2019 08:30 AM AMBULATORY - NONE [facility] Jan 08, 2019 09:00 AM AMBULATORY - MEDICINE [facility] Jan 23, 2019 09:15 AM AMBULATORY - NONE [facility] Surgical Procedures: All associated to the [...] of a patient's completed or amen ded [place] Advance and Rescinded Directives. The entries below indicate that a direc tive exists for the patient, but an actual copy is not included with this docume nt. The data comes from all [place] facilities. Date Advance Directives Provider Source Jan 02, 2018 ADVANCE DIRECTIVE DISCUSSION FLO KRUEGER [facility] Oct 17, 2000 ADVANCE DIRECTIVE EUNICE RODRIGUEZ [...] [facility] No Allergy Assessment on File JEOVANNY MORGAN [...] A DAY NEEDED 180 Jan 09, 2020 [id number] Apr 10, 2019 MAK VILLEDA ALBUTEROL SO4 0.083% INHL,3ML Discontinued USE 3 MLS IN NEBULIZER FOR INHALATION TWO TIMES A DAY NEEDED 180 Jan 27, 2019 [id number] Nov 01, 2018 BRITTANEY VENEGAS ALBUTEROL SO4 90MCG/ACTUAT (CFC-F) INHL,ORAL,6.7GM Active INHALE 2 PUFFS BY ORAL INHALATION TWO TIMES A DAY NEEDED - RINSE MOUTHPIECE FREQUENTLY TO PREVENT CLOGGING 2 Aug 30, 2019 [id number] Mar 18, 2019 BRITTANEY VILLEDA ALBUTEROL SO4 90MCG/ACTUAT (CFC-F) INHL,ORAL,6.7GM Discontin ued INHALE 2 PUFFS BY ORAL INHALATION TWO TIMES A DAY NEEDED - RINSE MOUTHPIECE FREQUENTLY TO PREVENT CLOGGING 2 Mar 27, 2019 [id number] Aug 30, 2018 BRITTANEY VILLEDA BUDESONIDE 80MCG/FORMOTEROL FUM 4.5MCG/SPRAY INHL,ORAL,10.2G M Active INHALE 2 PUFFS BY ORAL INHALATION TWO TIMES A DAY FOR BREATHING. SHAKE WELL. RINSE MOUTH AND SPIT AFTER EACH USE. 3 Jun 24, 2020 [id number] Jun 24, 2019 BRITTANEY VILLEDA BUDESONIDE 80MCG/FORMOTEROL FUM 4.5MCG/SPRAY INHL,ORAL,10.2G M Discontinued INHALE 2 PUFFS BY ORAL INHALATION TWO TIMES A DAY FOR BREATHING. SHAKE WELL. RINSE MOUTH AND SPIT AFTER EACH USE. 3 Dec 07, 2019 [id number] Mar 18, 2019 BRITTANEY VILLEDA FERROUS SO4 324MG TAB,EC Active TAKE ONE TABLET BY MOUTH TWO TIMES A DAY FOR IRON SUPPLEMENTATION. MAY TAKE WITH FOOD IF NOT TOLERATED ON EMPTY STOMACH 200 Jan 09, 2020 [id number] Apr 23, 2019 BRITTANEY VILLEDA FERROUS SO4 324MG TAB,EC Discontinued TAKE ONE TABLET BY MOUTH TWO TIMES A DAY FOR IRON SUPPLEMENTATION. MAY TAKE WITH FOOD IF NOT TOLERATED ON EMPTY STOMACH 200 May 02, 2019 [id number] Nov 14, 2018 BRITTANEY VILLEDA CBO C FOLIC ACID 1MG TAB Active TAKE ONE TABLET BY MOUTH ONCE A DAY 90 Nov 22, 2019 [id number] Mar 18, 2019 BRITTANEY VILLEDA FOLIC ACID 1MG TAB Discontinued TAKE ONE TABLET BY MOUTH ONCE A DAY 90 May 02, 2019 [id number] Sep 26, 2018 BRITTANEY VILLEDA GABAPENTIN 300MG CAP Discontinued TAKE 2 CAPSULES BY MOUTH FOUR TITO ES A DAY 720 Jan 27, 2019 [id number] Nov 14, 2018 BRITTANEY VILLEDA GABAPENTIN 400MG CAP Active TAKE 1 CAPSULE BY MOUTH THREE TITO ES A DAY 270 Dec 07, 2019 [id number] Mar 18, 2019 BRITTANEY VILLEDA HYDROCODONE 10MG/ACETAMINOPHEN 325MG TAB Non-VA TAKE ONE TABLET BY MOUTH FOUR TIMES A DAY Non-VA Documented by: RAMY TRENT nted at: STEF[facility] SPAIN LISINOPRIL 10MG TAB Discontinued TAKE ONE-HALF TABLET BY MOUTH EVERY MORNING FOR HEART OR HIGH BLOOD PRESSURE 15 Jun 01, 2019 [id number] Jun 02, 2018 BRITTANEY VILLEDA LOSARTAN 25MG TAB Active TAKE ONE TABLET BY MOUTH ONCE A DAY FOR BLOOD PRESSURE 90 Jan 09, 2020 [id number] Apr 23, 2019 BRITTANEY VILLEDA C LOSARTAN 25MG TAB Discontinued TAKE ONE TABLET BY M OUTH ONCE A DAY FOR BLOOD PRESSURE 90 July 13, 2019 [id number] Nov 14, 2018 TIERRA KWONG [facility] MELOXICAM 15MG TAB TAKE ONE TABLET BY M OUTH ONCE A DAY FOR PAIN OR INFLAMMATION. 90 Jun 01, 2019 [id number] Mar 18, 2019 BRITTANEY VILLEDA METOPROLOL TARTRATE 25MG TAB Active TAKE ONE-SMITH LF TABLET BY MOUTH TWO TIMES A DAY FOR HEART/BLOOD PRESSURE. TAKE WITH OR IMMEDIATELY FOLLOWING FOOD. 90 Jan 09, 2020 [id number] Apr 23, 2019 BRITTANEY VILLEDA METOPROLOL TARTRATE 25MG TAB Discontinued TAKE ONE-SMITH LF TABLET BY MOUTH TWO TIMES A DAY FOR HEART/BLOOD PRESSURE. TAKE WITH OR IMMEDIATELY FOLLOWING FOOD. 90 July 13, 2019 [id number] Nov 14, 2018 TIERRA KWONG [facility] SIMVASTATIN 40MG TAB Active TAKE ONE-HALF TABLE T BY MOUTH AT BEDTIME FOR CHOLESTEROL - REPORT ANY UNEXPLAINED MUSCLE PAIN OR WEAKNESS TO YOUR PROVIDER 45 Sep 27, 2019 [id number] Jun 24, 2019 BRITTANEY VILLEDA C SIMVASTATIN 40MG TAB Discontinued TAKE ONE-HALF TABLE T BY MOUTH AT BEDTIME FOR CHOLESTEROL - REPORT ANY UNEXPLAINED MUSCLE PAIN OR WEAKNESS TO YOUR PROVIDER 45 Sep 23, 2018 [id number] Jul 05, 2018 BRITTANEY VILLEDAONS [facility] TAMSULOSIN HCL 0.4MG CAP Discontinued TAKE ONE CAPSUL E BY MOUTH ONCE A DAY FOR PROSTATE. TAKE AT THE SAME TIME EACH DAY WITH FOOD. 90 Jun 17 9 [id number] Jun 14, 2018 [facility]ANEY [facility]EDA[facility] TAMSULOSIN HCL 0.4MG CAP TAKE ONE CAPSUL E BY MOUTH ONCE A DAY FOR PROSTATE. TAKE AT THE SAME TIME EACH DAY WITH FOOD. 90 August 01 0 [id number] Jun 24, 2019 BRITTANEY VILLEDA [facility] TIOTROPIUM 2.5MCG/ACTUAT INHL,ORAL,60D,4GM Active INHALE 2 PUFFS BY ORAL INHALATION ONCE A DAY FOR BREATHING. DON'T USE WITH IPRATROPIUM - REPLACES ADVAIR. 3 Jun 24, 2020 [id number] Jun 24, 2019 BRITTANEY VILLEDA [facility] TIOTROPIUM 2.5MCG/ACTUAT INHL,ORAL,60D,4GM Discontinued INHALE 2 PUFFS BY ORAL INHALATION ONCE A DAY FOR BREATHING. DON'T USE WITH IPRATROPIUM - REPLACES ADVAIR. 3 Oct 13, 2019 [id number] Mar 18, 2019 BRITTANEY VILLEDA PARS ONS [...] ent(s) Provider Source Actinic keratosis (SNOMED CT 530676741) Active 702.0 BRITTANEY VILLEDA [facility] Alcohol Dependence * (ICD-9-CM 303.90/303.91) Active 303.90 ALEXANDRA KWONG [facility] Anemia Active 285.9 [facility] ANGINA PECTORIS NEC/NOS 413.9 Active 413.9 ALEXANDRA RUELAS [facility] Anxiety Disorder Active 300.00 AURELIANO LINCOLN MD [facility] Benign Neoplasm Skin Head, Neck, Scalp Active 216.4 [facility] CABG Active 799.9 Oct 05, 2006 E ntered By: SATHISH SCOTT Comment: feb, 4-vessel [facility] Chest discomfort (SNOMED CT 750770627) Active 786.59 BRITTANEY VILLEDA [facility] Chronic airway obstruction, Not Elsewhere Classified Active 496. AURELIANO LINCOLN MD [facility] Chronic Low Back Pain Active 724.2 AURELIANO LINCOLN MD [facility] COPD * (ICD-9-CM 496.) Active 496. Robin SCOTT [facility] Coronary Artery Disease * (ICD-9-CM 414.9) Active 414.9 ALEXANDRA KWONG [facility] Coronary Atherosclerosis of [place] Coronary Vessel Active 414.01 August 03, 2010 Entered By: AURELIANO LINCOLN MD Comment: Bypass surgery AURELIANO LINCOLN MD [facility] Disorder of shoulder (SNOMED CT 039150694) Active 719.91 BRITTANEY VILLEDA [facility] Essential Hypertension Active 401.9 AURELIANO LINCOLN MD [facility] Hyperlipidemia Active 272.4 SATHISH SCOTT [facility] HYPERTENSION NOS 401.9 Active 401.9 ALEXANDRA KWONG [facility] Impotence (SNOMED CT 120942327) Active 302.72 BRITTANEY VILLEDA [facility] 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 AURELIANO LIU MD [facility] Marijuana Dependence unspecified Active 304.30 AURELIANO LINCOLN MD [facility] Microscopic Hematuria (ICD-9-CM 599.72) [facility] 599.72 [facility] Other and unspecified hyperlipidemia Active 272.4 AURELIANO LINCOLN MD [facility] Other, mixed, or unspecified drug abuse, continuous use Active 30 5.91 Jan 30, 2009 Entered By: SATHISH SCOTT Comment: urine drug screen positive for opitates and marijuannaMay 2009 Entered By: SATHISH SCOTT Comment: buying hydrocodone "off the street" SATHISH SCOTT [facility] Pain in joint involving ankle and foot (ICD-9-CM 719.47) Active 719 .47 [facility] Papular eruption (SNOMED CT 615648287) Active 709.8 BRITTANEY VILLEDA [facility] Personal History of Noncompliance with M edical Treatment, Presenting Hazards to Active V15.81 [facility]ISH [facility]OTT [facility] Tobacco dependence syndrome (SNOMED CT 37030703) Active [id number] July 24, 2009 Entered By: SATHISH SCOTT Comment: one [facility] Transient Ischemic Attack * (ICD-9-CM 435.9) Active 435.9 SATHISH SCOTT [facility] ANIETY STAT NOS 300.00 Inactive 300.00 Jan 05, 2005 ALEXANDRA FLOREZ [facility] Bronchitis * (ICD-9-CM 490.) Inactive 490. Jan 05, 2005 BRITTANEY VILLEDA [facility] Postsurgical Aortocoronary Bypass Status (ICD-9-CM V45.81) Inactive V45.81 Oct 05, 2006 SATHISH SCOTT [facility] Radiology Reports: +/- 30 days of the [...] Consult Results Orthopedics Comment: COMMUNITY CARE-ORTHO GEN/VC RANDOLPH/08/01-08/03/2018 /nuno/ ANAMARIA CEVALLOS AMSA Signed: 10/29/2018 15:39 ANAMARIA CEVALLOS [facility]
--- OUTSIDE RECORDS SUMMARY | 2019-08-20 00:54 | XMS REPORT | Encounter Summary ---
Author Author Department [facility] Organization Department of [facility] Address [address] [place] [address] Phone Unavailable Care Team Providers Care Child Daycare Worker Name Role Phone BRITTANEY VILLEDA PCP Unavailable [...] PART B Apr 13, 2007 PART B [id number] [phone] JUAN MANUEL MARTIN PATIENT MEDICARE (WNR) MEDICARE (M) PART B Apr 13, 2007 PART B [id number] JUAN MANUEL MARTIN PATIENT MEDICARE (WNR) MEDICARE (M) PART A Sep 10, 2005 PART A [id number] MARTIN,GARY PATIENT MEDICARE (WNR) MEDICARE (M) PART A Sep 10, 2005 PART A [id number] [phone] JUAN MANUEL MARTIN PATIENT MEDICARE (WNR) MEDICARE (M) PART A Sep 10, 2005 PART A [id number] VERONICAJUAN MANUEL PATIENT Selected Encounter This section includes the information on record at [place] for the Encounter. Date/Time Encounter Type Encounter Description Reason Provider Source Oct 16, 2018 01:03 PM Outpatient Encounter ADMIN PAT ACTIVTIES (MELANIE CUADRA) [facility] IHE Encounter Template Text not used by PR Assessments - Encounter Diagnoses No Data Provided for This Section Plan of Treatment: Future Appointments (+ 6 months) and Future Tests (+/- 45 day s) The Plan of Treatment section includes future care activities for the patient fr om all [place] treatment facilities. This section includes future appointments and fu ture orders which are active, pending or scheduled. Future Appointments This section includes appointments that were scheduled t o occur 6 months from the date of the Encounter, up to a maximum of 20 appointme nts. The data comes from all [place] treatment facilities. Appointment Date/Time Appointment Type Appointment Facili ty Name Nov 02, 2018 09:00 AM AMBULATORY - MEDICINE [facility] Jan 02, 2019 08:30 AM AMBULATORY - NONE [facility] Jan 08, 2019 09:00 AM AMBULATORY - MEDICINE [facility] Jan 23, 2019 09:15 AM AMBULATORY - NONE [facility] Surgical Procedures: All associated [...] and tobacco- related health factors from the PR facility where the Encounter took place. Current Smoking Status This section includes the most current smoking, or tobacco -related health factor, from the PR facility where the Encounter took place. Date/Time Current Smoking Status Comment Facility May 28, 2018 11:45 AM VA-TOBACCO FORMER USER [facility] Tobacco Use History This section includes a history of the smoking, or tobacco -related health factors, that were collected on or before the date of the Encoun ter. The data comes from the PR facility where the Encounter took place. Date/Time Smoking Status/Tobacco Use Comment [facility] May 28, 2018 11:45 AM VA-TOBACCO QUIT 15 YRS OR MORE [facility] Dec 25, 2017 02:23 PM NON-TOBACCO USER [facility] Jan 25, 2017 09:53 AM NON-TOBACCO USER [facility] Dec 22, 2015 09:45 AM NON-TOBACCO USER [facility] Advance Directives: All historical and current [...] docume nt. The data comes from all [place] facilities. Date Advance Directives Provider Source Jan [...] patient. The data comes from a ll [place] treatment facilities. It does not list Allergies/ADRs that were removed or entered in error. Some allergies/ADRs may be reported in t he Immunization section. Allergen Event Date Event Type Reaction(s) Severity Source No Known Allergies [facility] No Allergy Assessment on File [facility] Medications: VA dispensed (-15 months) and Non-VA Documented (Obtained Outside V A) Section Date Range: 1) prescriptions processed by a PR pharmacy in the last 15 m ont, and 2) all medications recorded in the PR medical record as "non-VA medic ations". Pharmacy terms refer to PR pharmacy's work on prescriptions. VA patient s are advised to take their medications as instructed by their health care team. The data comes from all [place] treatment facilities. Glossary of Pharmacy Terms:Active = A prescription that can be filled at the local [place] pharmacy.Active: On Hold = An active prescription that will not be filled until pharmacy resolves the issue.Active: Susp = An active prescription that is not scheduled to be filled yet.Clinic Order = A medication received during a visit to a PR clinic or emergency department (currently not available).Discontinued [...] may be a prescription from either the [place] or other providers that was filled outside the [place]. Or, it may be an over the [...] A DAY NEEDED 180 Jan 09, 2020 [id number] Apr 10, 2019 MAK VILLEDA CBTERRENCE ALBUTEROL SO4 0.083% INHL,3ML Discontinued USE 3 MLS IN NEBULIZER FOR INHALATION TWO TIMES A DAY NEEDED 180 Jan 27, 2019 [id number] Nov 01, 2018 BRITTANEY VENEGAS ALBUTEROL SO4 90MCG/ACTUAT (CFC-F) INHL,ORAL,6.7GM Active INHALE 2 PUFFS BY ORAL INHALATION TWO TIMES A DAY NEEDED - RINSE MOUTHPIECE FREQUENTLY TO PREVENT CLOGGING 2 Aug 30, 2019 [id number] Mar 18, 2019 BRITTANEY VILLEDA ALBUTEROL SO4 90MCG/ACTUAT (CFC-F) INHL,ORAL,6.7GM Discontin ued INHALE 2 PUFFS BY ORAL INHALATION TWO TIMES A DAY NEEDED - RINSE MOUTHPIECE FREQUENTLY TO PREVENT CLOGGING 2 Mar 27, 2019 [id number] Aug 30, 2018 BRITTANEY VILLEDA BUDESONIDE 80MCG/FORMOTEROL FUM 4.5MCG/SPRAY INHL,ORAL,10.2G M Active INHALE 2 PUFFS BY ORAL INHALATION TWO TIMES A DAY FOR BREATHING. SHAKE WELL. RINSE MOUTH AND SPIT AFTER EACH USE. 3 Jun 24, 2020 [id number] Jun 24, 2019 BRITTANEY VILLEDA BUDESONIDE 80MCG/FORMOTEROL FUM 4.5MCG/SPRAY INHL,ORAL,10.2G M Discontinued INHALE 2 PUFFS BY ORAL INHALATION TWO TIMES A DAY FOR BREATHING. SHAKE WELL. RINSE MOUTH AND SPIT AFTER EACH USE. 3 Dec 07, 2019 [id number] Mar 18, 2019 BRITTANEY VILLEDA FERROUS SO4 324MG TAB,EC Active TAKE ONE TABLET BY MOUTH TWO TIMES A DAY FOR IRON SUPPLEMENTATION. MAY TAKE WITH FOOD IF NOT TOLERATED ON EMPTY STOMACH 200 Jan 09, 2020 [id number] Apr 23, 2019 BRITTANEY VILLEDA FERROUS SO4 324MG TAB,EC Discontinued TAKE ONE TABLET BY MOUTH TWO TIMES A DAY FOR IRON SUPPLEMENTATION. MAY TAKE WITH FOOD IF NOT TOLERATED ON EMPTY STOMACH 200 May 02, 2019 [id number] Nov 14, 2018 BRITTANEY VILLEDA C FOLIC ACID 1MG TAB Active TAKE ONE TABLET BY MOUTH ONCE A DAY 90 Nov 22, 2019 [id number] Mar 18, 2019 BRITTANEY VILLEDA FOLIC ACID 1MG TAB Discontinued TAKE ONE TABLET BY MOUTH ONCE A DAY 90 May 02, 2019 [id number] Sep 26, 2018 BRITTANEY VILLEDA GABAPENTIN 300MG CAP Discontinued TAKE 2 CAPSULES BY MOUTH FOUR TITO ES A DAY 720 Jan 27, 2019 [id number] Nov 14, 2018 BRITTANEY VILLEDA GABAPENTIN 400MG CAP Active TAKE 1 CAPSULE BY MOUTH THREE TITO ES A DAY 270 Dec 07, 2019 [id number] Mar 18, 2019 BRITTANEY VILLEDA HYDROCODONE 10MG/ACETAMINOPHEN 325MG TAB Non-VA TAKE ONE TABLET BY MOUTH FOUR TIMES A DAY Non-VA Documented by: RAMY TRENT nted at: [facility] LISINOPRIL 10MG TAB Discontinued TAKE ONE-HALF TABLET BY MOUTH EVERY MORNING FOR HEART OR HIGH BLOOD PRESSURE 15 Jun 01, 2019 [id number] Jun 02, 2018 BRITTANEY VILLEDA [facility] [place] 25MG TAB Active TAKE ONE TABLET BY MOUTH ONCE A DAY FOR BLOOD PRESSURE 90 Jan 09, 2020 [id number] Apr 23, 2019 BRITTANEY VILLEDA C LOSARTAN 25MG TAB Discontinued TAKE ONE TABLET BY M OUTH ONCE A DAY FOR BLOOD PRESSURE 90 July 13, 2019 [id number] Nov 14, 2018 TIERRA KWONG [facility] MELOXICAM 15MG TAB TAKE ONE TABLET BY M OUTH ONCE A DAY FOR PAIN OR INFLAMMATION. 90 Jun 01, 2019 [id number] Mar 18, 2019 BRITTANEY VILLEDA METOPROLOL TARTRATE 25MG TAB Active TAKE ONE-SMITH LF TABLET BY MOUTH TWO TIMES A DAY FOR HEART/BLOOD PRESSURE. TAKE WITH OR IMMEDIATELY FOLLOWING FOOD. 90 Jan 09, 2020 [id number] Apr 23, 2019 BRITTANEY VILLEDA METOPROLOL TARTRATE 25MG TAB Discontinued TAKE ONE-SMITH LF TABLET BY MOUTH TWO TIMES A DAY FOR HEART/BLOOD PRESSURE. TAKE WITH OR IMMEDIATELY FOLLOWING FOOD. 90 July 13, 2019 [id number] Nov 14, 2018 TIERRA KWOGN [facility] SIMVASTATIN 40MG TAB Active TAKE ONE-HALF TABLE T BY MOUTH AT BEDTIME FOR CHOLESTEROL - REPORT ANY UNEXPLAINED MUSCLE PAIN OR WEAKNESS TO YOUR PROVIDER 45 Sep 27, 2019 [id number] Jun 24, 2019 BRITTANEY VILLEDA CBO C SIMVASTATIN 40MG TAB Discontinued TAKE ONE-HALF TABLE T BY MOUTH AT BEDTIME FOR CHOLESTEROL - REPORT ANY UNEXPLAINED MUSCLE PAIN OR WEAKNESS TO YOUR PROVIDER 45 Sep 23, 2018 [id number] Jul 05, 2018 BRITTANEY VILLEDA CBO C TAMSULOSIN HCL 0.4MG CAP Discontinued TAKE ONE CAPSUL E BY MOUTH ONCE A DAY FOR PROSTATE. TAKE AT THE SAME TIME EACH DAY WITH FOOD. 90 Jun 17, 9 [id number] Jun 14, 2018 BRITTANEY VILLEDA TAMSULOSIN HCL 0.4MG CAP TAKE ONE CAPSUL E BY MOUTH ONCE A DAY FOR PROSTATE. TAKE AT THE SAME TIME EACH DAY WITH FOOD. 90 August 01 0 [id number] Jun 24, 2019 BRITTANEY VILLEDA TIOTROPIUM 2.5MCG/ACTUAT INHL,ORAL,60D,4GM Active INHALE 2 PUFFS BY ORAL INHALATION ONCE A DAY FOR BREATHING. DON'T USE WITH IPRATROPIUM - REPLACES ADVAIR. 3 Jun 24, 2020 [id number] Jun 24, 2019 BRITTANEY VILLEDA TIOTROPIUM 2.5MCG/ACTUAT INHL,ORAL,60D,4GM Discontinued INHALE 2 PUFFS BY ORAL INHALATION ONCE A DAY FOR BREATHING. DON'T USE WITH IPRATROPIUM - REPLACES ADVAIR. 3 Oct 13, 2019 [id number] Mar 18, 2019 BRITTANEY VILLEDA [facility] Problems (Conditions): All historical and current Section Date Range: From patient's date of to the date document was create d. This section includes a list of Problems (Conditions) know n to [place] for the patient. It includes both active and inacti ve problems (conditions). The data comes from all [place] treatment facilities. Problem Status Problem Code Date of Onset Date of Resolution Comm ent(s) Provider Source Actinic keratosis (SNOMED CT 554821001) Active 702.0 BRITTANEY VILLEDA [facility] Alcohol Dependence * (ICD-9-CM 303.90/303.91) Active 303.90 ALEXANDRA KWONG [facility] Anemia Active 285.9 [facility] ANGINA PECTORIS NEC/NOS 413.9 Active 413.9 W ALEXANDRA DE JESUS [facility] Anxiety Disorder Active 300.00 AURELIANO LNICOLN MD [facility] Benign Neoplasm Skin Head, Neck, Scalp Active 216.4 RENALDO DACOSTA [facility] CABG Active 799.9 Oct 05, 2006 E ntered By: SATHISH SCOTT Comment: feb, 4-vessel SATHISH SCOTT [facility] Chest discomfort (SNOMED CT 971305817) Active 786.59 BRITTANEY VILLEDA [facility] Chronic airway obstruction, Not Elsewhere Classified Active 496. AURELIANO LINCOLN MD [facility] Chronic Low Back Pain Active 724.2 AURELIANO LINCOLN MD [facility] COPD * (ICD-9-CM 496.) Active 496. Robin SCOTT [facility] Coronary Artery Disease * (ICD-9-CM 414.9) Active 414.9 ALEXANDRA KWONG [facility] Coronary Atherosclerosis of [facility] Coronary Vessel Active 414.01 August 03, 2010 Entered By: AURELIANO LINCOLN MD Comment: Bypass surgery AURELIANO LINCOLN MD [facility] Disorder of shoulder (SNOMED CT 596098324) Active 719.91 BRITTANEY VILLEDA [facility] Essential Hypertension Active 401.9 AURELIANO LINCOLN MD [facility] Hyperlipidemia Active 272.4 SATHISH SCOTT [facility] HYPERTENSION NOS 401.9 Active 401.9 ALEXANDRA KWONG [facility] Impotence (SNOMED CT 679681758) Active 302.72 BRITTANEY VILLEDA [facility] 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 AURELIANO LIU MD [facility] Marijuana Dependence unspecified Active 304.30 AURELIANO LINCOLN MD [facility] Microscopic Hematuria (ICD-9-CM 599.72) Active 599.72 [facility] SAL[facility] Other and unspecified hyperlipidemia Active 272.4 AURELIANO LINCOLN MD [facility] Other, mixed, or unspecified drug abuse, continuous use Active 30 5.91 Jan 30, 2009 Entered By: SATHISH SCOTT Comment: urine drug screen positive for opitates and marijuannaMay 2009 Entered By: SATHISH SCOTT Comment: buying hydrocodone "off the street" [facility] Pain in joint involving ankle and foot (ICD-9-CM 719.47) Active 719 .47 [facility] Papular eruption (SNOMED CT 555116550) Active 709.8 [facility] Personal History of Noncompliance with M edical Treatment, Presenting Hazards to Active V15.81 [facility]OTT [facility] Tobacco dependence syndrome (SNOMED CT 93527434) Active [id number] July 24, 2009 Entered By: SATHISH SCOTT Comment: one ppd YUMI AVILA [facility] Transient Ischemic Attack * (ICD-9-CM 435.9) Active 435.9 [facility] ANIETY STAT NOS 300.00 Inactive 300.00 Jan 05, 2005 [facility] Bronchitis * (ICD-9-CM 490.) Inactive 490. Jan 05, 2005 [facility] Postsurgical Aortocoronary Bypass Status (ICD-9-CM V45.81) Inactive V45.81 Oct 05, 2006 SATHISH SCOTT [facility] Radiology Reports: +/- 30 days of the encounter No Data Provided for This Section Pathology Reports: +/- 30 days of the encounter No Data Provided for This Section Encounter Notes: All associated encounter notes This section contains the clinical notes associated to the Encounter. Date/Time Encounter Note(s) Provider Source Oct 16, 2018 01:03 PM ADMINISTRATIVE NOTE: LOCAL TITLE: [place] STANDARD TITLE: ADMINISTRATIVE NOTE DATE OF NOTE: OCT 16, 2018@13:03 ENTRY DATE: OCT 16, 2018@13:03:13 AUTHOR: GRIFFIN WELLS EXP COSIGNER: URGENCY: STATUS: COMPLETED MSA Administrative Note: RECORDS RECEIVED TODAY by: Fax Nature of report:Secondary Authorization Req for Pulmonary Rehab Date(s) of record(s):10/16/28 Sending alliance party:BRANDON Nazario /nuno/ GRIFFIN WELLS MSA Signed: 10/16/2018 13:04 GRIFFIN WELLS [facility]
--- OUTSIDE RECORDS SUMMARY | 2019-08-20 00:54 | XMS REPORT | Encounter Summary ---
Author [facility] JUAN MANUEL posey Organization Department of [facility] Address [address] [place] [id number] Phone Unavailable Care Team Providers Care Legal Recruiter Name Role Phone BRITTANEY VILLEDA PCP Unavailable [...] ID Insurance Provider's Telephone N umber Policy Hernnadez's Name Patient's Relationship to Policy Hernandez MEDICARE (WNR) MEDICARE (M) PART B Apr 13, 2007 PART B [id number] [phone] MARTINJUAN MANUEL PATIENT MEDICARE (WNR) MEDICARE (M) PART B Apr 13, 2007 PART B [id number] JUAN MANUEL MARTIN PATIENT MEDICARE (WNR) MEDICARE (M) PART A Sep 10, 2005 PART A [id number] MARTIN,JUAN MANUEL PATIENT MEDICARE (WNR) MEDICARE (M) PART A Sep 10, 2005 PART A [id number] [phone] JUAN MANUEL MARTIN PATIENT MEDICARE (WNR) MEDICARE (M) PART A Sep 10, 2005 PART A [id number] JUAN MANUEL MARTIN PATIENT Selected Encounter This section includes the information on record at PA for the Encounter. Date/Time Encounter Type Encounter Description Reason Provider Source Nov 02, 2018 12:00 AM Outpatient Encounter COMMUNITY CARE CONSULT [facility] 15 IHE Encounter Template Text not used by PA Assessments - Encounter Diagnoses No Data Provided [...] 02, 2019 08:30 AM AMBULATORY - NONE [facility] Jan 08, 2019 09:00 AM AMBULATORY - MEDICINE [facility] Jan 23, 2019 09:15 AM AMBULATORY - NONE [facility] Surgical Procedures: All associated to the [...] of a patient's completed or amen ded PA Advance and Rescinded Directives. The entries below indicate that a direc tive exists for the patient, but an actual copy is not included with this docume nt. The data comes from all PA facilities. Date Advance Directives Provider Source Jan 02, 2018 ADVANCE DIRECTIVE DISCUSSION FLO KRUEGER [facility] Oct 17, 2000 ADVANCE DIRECTIVE [...] [facility] No Allergy Assessment on File [facility] Medications: VA dispensed (-15 months) and Non-VA Documented (Obtained Outside V A) Section Date Range: 1) prescriptions processed by a PA pharmacy in the last 15 m ont, and 2) all medications recorded in the PA medical record as "non-VA medic ations". Pharmacy terms refer to PA pharmacy's work on prescriptions. VA patient s are advised to take their medications as instructed by their health care team. The data comes from all PA treatment facilities. Glossary of Pharmacy Terms:Active = A prescription that can be filled at the local PA pharmacy.Active: On Hold = An active prescription [...] A DAY NEEDED 180 Jan 09, 2020 [id number] Apr 10, 2019 MAK VILLEDA ALBUTEROL SO4 0.083% INHL,3ML Discontinued USE 3 MLS IN NEBULIZER FOR INHALATION TWO TIMES A DAY NEEDED 180 Jan 27, 2019 [id number] Nov 01, 2018 BRITTANEY VENEGAS ALBUTEROL SO4 90MCG/ACTUAT (CFC-F) INHL,ORAL,6.7GM Active INHALE 2 PUFFS BY ORAL INHALATION TWO TIMES A DAY NEEDED - RINSE MOUTHPIECE FREQUENTLY TO PREVENT CLOGGING 2 Aug 30, 2019 [id number] Mar 18, 2019 BRITTANEY VILLEDA ALBUTEROL SO4 90MCG/ACTUAT (CFC-F) INHL,ORAL,6.7GM Discontin ued INHALE 2 PUFFS BY ORAL INHALATION TWO TIMES A DAY NEEDED - RINSE MOUTHPIECE FREQUENTLY TO PREVENT CLOGGING 2 Mar 27, 2019 [id number] Aug 30, 2018 BRITTANEY VILLEDA BUDESONIDE 80MCG/FORMOTEROL FUM 4.5MCG/SPRAY INHL,ORAL,10.2G M Active INHALE 2 PUFFS BY ORAL INHALATION TWO TIMES A DAY FOR BREATHING. SHAKE WELL. RINSE MOUTH AND SPIT AFTER EACH USE. 3 Jun 24, 2020 [id number] Jun 24, 2019 BRITTANEY VILLEDA BUDESONIDE 80MCG/FORMOTEROL FUM 4.5MCG/SPRAY INHL,ORAL,10.2G M Discontinued INHALE 2 PUFFS BY ORAL INHALATION TWO TIMES A DAY FOR BREATHING. SHAKE WELL. RINSE MOUTH AND SPIT AFTER EACH USE. 3 Dec 07, 2019 [id number] Mar 18, 2019 BRITTANEY VILLEDA FERROUS SO4 324MG TAB,EC Active TAKE ONE TABLET BY MOUTH TWO TIMES A DAY FOR IRON SUPPLEMENTATION. MAY TAKE WITH FOOD IF NOT TOLERATED ON EMPTY STOMACH 200 Jan 09, 2020 [id number] Apr 23, 2019 BRITTANEY VILLEDA FERROUS SO4 324MG TAB,EC Discontinued TAKE ONE TABLET BY MOUTH TWO TIMES A DAY FOR IRON SUPPLEMENTATION. MAY TAKE WITH FOOD IF NOT TOLERATED ON EMPTY STOMACH 200 May 02, 2019 [id number] Nov 14, 2018 BRITTANEY VILLEDA CBO C FOLIC ACID 1MG TAB Active TAKE ONE TABLET BY MOUTH ONCE A DAY 90 Nov 22, 2019 [id number] Mar 18, 2019 BRITTANEY VILLEDA FOLIC ACID 1MG TAB Discontinued TAKE ONE TABLET BY MOUTH ONCE A DAY 90 May 02, 2019 [id number] Sep 26, 2018 BRITTANEY VILLEDA GABAPENTIN 300MG CAP Discontinued TAKE 2 CAPSULES BY MOUTH FOUR TITO ES A DAY 720 Jan 27, 2019 [id number] Nov 14, 2018 BRITTANEY VILLEDA GABAPENTIN 400MG CAP Active TAKE 1 CAPSULE BY MOUTH THREE TITO ES A DAY 270 Dec 07, 2019 [id number] Mar 18, 2019 BRITTANEY VILLEDA HYDROCODONE 10MG/ACETAMINOPHEN 325MG TAB Non-VA TAKE ONE TABLET BY MOUTH FOUR TIMES A DAY Non-VA Documented by: RAMY TRENT nted at: STEFANI SPAIN LISINOPRIL 10MG TAB Discontinued TAKE ONE-HALF TABLET BY MOUTH EVERY MORNING FOR HEART OR HIGH BLOOD PRESSURE 15 Jun 01, 2019 [id number] Jun 02, 2018 BRITTANEY VILLEDA [facility] [place]AN 25MG TAB Active TAKE ONE TABLET BY MOUTH ONCE A DAY FOR BLOOD PRESSURE 90 Jan 09, 2020 [id number] Apr 23, 2019 BRITTANEY VILLEDA C LOSARTAN 25MG TAB Discontinued TAKE ONE TABLET BY M OUTH ONCE A DAY FOR BLOOD PRESSURE 90 July 13, 2019 [id number] Nov 14, 2018 [facility] MELOXICAM 15MG TAB TAKE ONE TABLET BY M OUTH ONCE A DAY FOR PAIN OR INFLAMMATION. 90 Jun 01, 2019 [id number] Mar 18, 2019 BRITTANEY VILLEDA METOPROLOL TARTRATE 25MG TAB Active TAKE ONE-SMITH LF TABLET BY MOUTH TWO TIMES A DAY FOR HEART/BLOOD PRESSURE. TAKE WITH OR IMMEDIATELY FOLLOWING FOOD. 90 Jan 09, 2020 [id number] Apr 23, 2019 BRITTANEY VILLEDA METOPROLOL TARTRATE 25MG TAB Discontinued TAKE ONE-SMITH LF TABLET BY MOUTH TWO TIMES A DAY FOR HEART/BLOOD PRESSURE. TAKE WITH OR IMMEDIATELY FOLLOWING FOOD. 90 July 13, 2019 [id number] Nov 14, 2018 TIERRA KWONG [facility] SIMVASTATIN 40MG TAB Active TAKE ONE-HALF TABLE T BY MOUTH AT BEDTIME FOR CHOLESTEROL - REPORT ANY UNEXPLAINED MUSCLE PAIN OR WEAKNESS TO YOUR PROVIDER 45 Sep 27, 2019 [id number] Jun 24, 2019 BRITTANEY VILLEDA C SIMVASTATIN 40MG TAB Discontinued TAKE ONE-HALF TABLE T BY MOUTH AT BEDTIME FOR CHOLESTEROL - REPORT ANY UNEXPLAINED MUSCLE PAIN OR WEAKNESS TO YOUR PROVIDER 45 Sep 23, 2018 [id number] Jul 05, 2018 RONAL,BRITTANEY B KO CBO C TAMSULOSIN HCL 0.4MG CAP Discontinued TAKE ONE CAPSUL E BY MOUTH ONCE A DAY FOR PROSTATE. TAKE AT THE SAME TIME EACH DAY WITH FOOD. 90 Jun 17, 9 [id number] Jun 14, 2018 BRITTANEY VILLEDA TAMSULOSIN HCL 0.4MG CAP TAKE ONE CAPSUL E BY MOUTH ONCE A DAY FOR PROSTATE. TAKE AT THE SAME TIME EACH DAY WITH FOOD. 90 August 01 0 [id number] Jun 24, 2019 BRITTANEY VILLEDA TIOTROPIUM 2.5MCG/ACTUAT INHL,ORAL,60D,4GM Active INHALE 2 PUFFS BY ORAL INHALATION ONCE A DAY FOR BREATHING. DON'T USE WITH IPRATROPIUM - REPLACES ADVAIR. 3 Jun 24, 2020 [id number] Jun 24, 2019 BRITTANEY VILLEDA CBTERRENCE TIOTROPIUM 2.5MCG/ACTUAT INHL,ORAL,60D,4GM Discontinued INHALE 2 PUFFS BY ORAL INHALATION ONCE A DAY FOR BREATHING. DON'T USE WITH IPRATROPIUM - REPLACES ADVAIR. 3 Oct 13, 2019 [id number] Mar 18, 2019 BRITTANEY VILLEDA [facility] Problems [...] ent(s) Provider Source Actinic keratosis (SNOMED CT 509801897) Active 702.0 BRITTANEY VILLEDA [facility] Alcohol Dependence * (ICD-9-CM 303.90/303.91) Active 303.90 ALEXANDRA KWONG [facility] Anemia Active 285.9 SATHISH SCOTT [facility] ANGINA PECTORIS NEC/NOS 413.9 Active 413.9 ALEXANDRA RUELAS [facility] Anxiety Disorder Active 300.00 AURELIANO LINCOLN MD [facility] Benign Neoplasm Skin Head, Neck, Scalp Active 216.4 RENALDO DACOSTA [facility] CABG Active 799.9 Oct 05, 2006 E ntered By: SATHISH SCOTT Comment: feb, 4-vessel [facility] Chest discomfort (SNOMED CT 799184936) Active 786.59 BRITTANEY VILLEDA [facility] Chronic airway obstruction, Not Elsewhere Classified Active 496. AURELIANO LINCOLN MD [facility] Chronic Low Back Pain Active 724.2 AURELIANO LINCOLN MD [facility] COPD * (ICD-9-CM 496.) Active 496. Robin SCOTT [facility] Coronary Artery Disease * (ICD-9-CM 414.9) Active 414.9 ALEXANDRA KWONG [facility] Coronary Atherosclerosis of [place] Coronary Vessel Active 414.01 August 03, 2010 Entered By: AURELIANO LINCOLN MD Comment: Bypass surgery AURELIANO LINCOLN MD [facility] Disorder of shoulder (SNOMED CT 348419441) Active 719.91 BRITTANEY VILLEDA [facility] Essential Hypertension Active 401.9 AURELIANO LINCOLN MD [facility] Hyperlipidemia Active 272.4 SATHISH SCOTT PREETHI ROSA [facility] HYPERTENSION NOS 401.9 Active 401.9 ALEXANDRA KWONG [facility] Impotence (SNOMED CT 484230028) Active 302.72 BRITTANEY VILLEDA [facility] 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 AURELIANO LIU MD [facility] Marijuana Dependence unspecified Active 304.30 AURELIANO LINCOLN MD [facility] Microscopic Hematuria (ICD-9-CM 599.72) Active 599.72 BEVERLY SALINAS [facility] Other and unspecified hyperlipidemia Active 272.4 AURELIANO LINCOLN MD [facility] Other, mixed, or unspecified drug abuse, continuous use Active 30 5.91 Jan 30, 2009 Entered By: SATHISH SCOTT Comment: urine drug screen positive for opitates and marijuannaMay 2009 Entered By: SATHISH SCOTT Comment: buying hydrocodone "off the street" SATHISH SCOTT [facility] Pain in joint involving ankle and foot (ICD-9-CM 719.47) Active 719 .47 [facility]ISH SC[facility] Papular eruption (SNOMED CT 756718278) Active 709.8 BRITTANEY VILLEDA [facility] Personal History of Noncompliance with M edical Treatment, Presenting Hazards to Active V15.81 SATHISH SCOTT [facility] Tobacco dependence syndrome (SNOMED CT 03201604) Active [id number] July 24, 2009 Entered By: SATHISH SCOTT Comment: one YUMI Gibbons [facility] Transient Ischemic Attack * (ICD-9-CM 435.9) Active 435.9 SATHISH SCOTT [facility] ANIETY STAT NOS 300.00 Inactive 300.00 Jan 05, 2005 ALEXANDRA FLOREZ [facility] Bronchitis * (ICD-9-CM 490.) Inactive 490. Jan 05, 2005 BRITTANEY VILLEDA [facility] Postsurgical Aortocoronary Bypass Status (ICD-9-CM V45.81) Inactive V45.81 Oct 05, 2006 SATHISH SCOTT [facility] Radiology Reports: +/- 30 days of [...] EXP COSIGNER: URGENCY: STATUS: COMPLETED COMMUNITY CARE-PULMONARY REHAB/[facility]/11/02/18 Scanned document attached to this note /nuno/ SULMA PLEITEZ Signed: 11/23/2018 12:47 SULMA PLEITEZ [facility] Nov 02, 2018 12:00 AM SCANNED REPORT: LOCAL TITLE: [place]-SCANNED FEE CONSULT STANDARD TITLE: SCANNED REPORT DATE OF NOTE: NOV 02, 2018 ENTRY DATE: JAN 25, 2019@08:12:08 AUTHOR: STEPHAN ROBLES EXP COSIGNER: URGENCY: STATUS: [facility]/11/02/18 Scanned document attached to this note /es/ STEPHAN ROBLES [facility] Signed: 01/25/2019 08:12 STEPHAN ROBLES [facility]
--- OUTSIDE RECORDS SUMMARY | 2019-08-20 00:55 | XMS REPORT | Encounter Summary ---
Author Author Department [facility] Organization [facility] of 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 Name Role Phone BRITTANEY VILLEDA PCP Unavailable [...] PART B Apr 13, 2007 PART B [id number] [phone] JUAN MANUEL MARTIN PATIENT MEDICARE (WNR) MEDICARE (M) PART B Apr 13, 2007 PART B [id number] JUAN MANUEL MARTIN PATIENT MEDICARE (WNR) MEDICARE (M) PART A Sep 10, 2005 PART A [id number] JUAN MANUEL MARTIN PATIENT MEDICARE (WNR) MEDICARE (M) PART A Sep 10, 2005 PART A [id number] [phone] JUAN MANUEL MARTIN PATIENT MEDICARE (WNR) MEDICARE (M) PART A Sep 10, 2005 PART A [id number] MARTINJUAN MANUEL PATIENT Selected Encounter This section includes the information on record at [place] for the Encounter. Date/Time Encounter Type Encounter Description Reason Provider Source Oct 03, 2018 03:43 PM Outpatient Encounter PRIMARY CARE/MEDICINE [facility] IHE Encounter Template Text not used by [place] Assessments - Encounter Diagnoses No Data Provided for This Section Plan of Treatment: Future Appointments (+ 6 months) and Future Tests (+/- 45 day s) The Plan of Treatment section includes future care activities for the patient fr om all [place] treatment facilities. This section includes future appointments and fu ture orders which are active, pending or scheduled. Future Appointments This section includes appointments that were scheduled t o occur 6 months from the date of the Encounter, up to a maximum of 20 appointme nts. The data comes from all [place] treatment facilities. Appointment Date/Time Appointment Type Appointment Facili ty Name Nov 02, 2018 09:00 AM AMBULATORY - MEDICINE [facility] Jan 02, 2019 08:30 AM AMBULATORY - NONE [facility] Jan 08, 2019 09:00 AM AMBULATORY - MEDICINE [facility] Jan 23, 2019 09:15 AM AMBULATORY - NONE [facility] Surgical Procedures: All associated to [...] and tobacco- related health factors from the [place] facility where the Encounter took place. Current Smoking Status This section includes the most current smoking, or tobacco -related health factor, from the [place] facility where the Encounter took place. Date/Time Current Smoking Status Comment Facility May 28, 2018 11:45 AM VA-TOBACCO FORMER USER [facility] Tobacco Use History This section includes a history of the smoking, or tobacco -related health factors, that were collected on or before the date of the Encoun ter. The data comes from the [place] facility where the Encounter took place. Date/Time Smoking Status/Tobacco Use Comment [facility] May 28, 2018 11:45 AM VA-TOBACCO QUIT 15 YRS OR MORE [place] [facility] Dec 25, 2017 02:23 PM NON-TOBACCO USER KO [facility] Jan 25, 2017 09:53 AM NON-TOBACCO USER KO [facility] Dec 22, 2015 09:45 AM NON-TOBACCO USER [facility] Advance Directives: All historical and current [...] docume nt. The data comes from all [place] facilities. Date Advance Directives Provider Source Jan 02, 2018 ADVANCE DIRECTIVE DISCUSSION FLO KRUEGER [facility] Oct 17, 2000 ADVANCE DIRECTIVE EUNICE RODRIGUEZ [facility], VISN 15 Allergies and Adverse Reactions (ADRs): All historical and current Section Date Range: From patient's date of to the date document was create d. This section includes Allergies and Adverse Reactions (ADR s) on record with VA for the patient. The data comes from a ll [place] treatment facilities. It does not list Allergies/ADRs that were removed or entered in error. Some allergies/ADRs may be reported in t he Immunization section. Allergen Event Date Event Type Reaction(s) Severity Source No Known Allergies [facility] No Allergy Assessment on File [facility] Medications: VA dispensed (-15 months) and Non-VA Documented (Obtained Outside V A) Section Date Range: 1) prescriptions processed by a [place] pharmacy in the last 15 m ont, and 2) all medications recorded in the [place] medical record as "non-VA medic ations". Pharmacy terms refer to [place] pharmacy's work on prescriptions. VA patient s are advised to take their medications as instructed by their health care team. The data comes from all [place] treatment facilities. Glossary of Pharmacy Terms:Active = A prescription that can be filled at the local [place] pharmacy.Active: On Hold = An active prescription that will not be filled until pharmacy resolves the issue.Active: Susp = An active prescription that is not scheduled to be filled yet.Clinic Order = A medication received during a visit to a [place] clinic or emergency department (currently not available).Discontinued [...] may be a prescription from either the [place] or other providers that was filled outside the [place]. Or, it may be an over the [...] A DAY NEEDED 180 Jan 09, 2020 [id number] Apr 10, 2019 MAK VILLEDA CBTERRENCE ALBUTEROL SO4 0.083% INHL,3ML Discontinued USE 3 MLS IN NEBULIZER FOR INHALATION TWO TIMES A DAY NEEDED 180 Jan 27, 2019 [id number] Nov 01, 2018 BRITTANEY VENEGAS ALBUTEROL SO4 90MCG/ACTUAT (CFC-F) INHL,ORAL,6.7GM Active INHALE 2 PUFFS BY ORAL INHALATION TWO TIMES A DAY NEEDED - RINSE MOUTHPIECE FREQUENTLY TO PREVENT CLOGGING 2 Aug 30, 2019 [id number] Mar 18, 2019 BRITTANEY VILLEDA ALBUTEROL SO4 90MCG/ACTUAT (CFC-F) INHL,ORAL,6.7GM Discontin ued INHALE 2 PUFFS BY ORAL INHALATION TWO TIMES A DAY NEEDED - RINSE MOUTHPIECE FREQUENTLY TO PREVENT CLOGGING 2 Mar 27, 2019 [id number] Aug 30, 2018 BRITTANEY VILLEDA BUDESONIDE 80MCG/FORMOTEROL FUM 4.5MCG/SPRAY INHL,ORAL,10.2G M Active INHALE 2 PUFFS BY ORAL INHALATION TWO TIMES A DAY FOR BREATHING. SHAKE WELL. RINSE MOUTH AND SPIT AFTER EACH USE. 3 Jun 24, 2020 [id number] Jun 24, 2019 BRITTANEY VILLEDA BUDESONIDE 80MCG/FORMOTEROL FUM 4.5MCG/SPRAY INHL,ORAL,10.2G M Discontinued INHALE 2 PUFFS BY ORAL INHALATION TWO TIMES A DAY FOR BREATHING. SHAKE WELL. RINSE MOUTH AND SPIT AFTER EACH USE. 3 Dec 07, 2019 [id number] Mar 18, 2019 RONAL,BRITTNAEY B KO [facility] FERROUS SO4 324MG TAB,EC Active TAKE ONE TABLET BY MOUTH TWO TIMES A DAY FOR IRON SUPPLEMENTATION. MAY TAKE WITH FOOD IF NOT TOLERATED ON EMPTY STOMACH 200 Jan 09, 2020 [id number] Apr 23, 2019 BRITTANEY VILLEDA [facility] FERROUS SO4 324MG TAB,EC Discontinued TAKE ONE TABLET BY MOUTH TWO TIMES A DAY FOR IRON SUPPLEMENTATION. MAY TAKE WITH FOOD IF NOT TOLERATED ON EMPTY STOMACH 200 May 02, 2019 [id number] Nov 14, 2018 BRITTANEY VILLEDA [facility] FOLIC ACID 1MG TAB Active TAKE ONE TABLET BY MOUTH ONCE A DAY 90 Nov 22, 2019 [id number] Mar 18, 2019 BRITTANEY VILLEDA FOLIC ACID 1MG TAB Discontinued TAKE ONE TABLET BY MOUTH ONCE A DAY 90 May 02, 2019 [id number] Sep 26, 2018 BRITTANEY VILLEDA GABAPENTIN 300MG CAP Discontinued TAKE 2 CAPSULES BY MOUTH FOUR TITO ES A DAY 720 Jan 27, 2019 [id number] Nov 14, 2018 BRITTANEY VILLEDA GABAPENTIN 400MG CAP Active TAKE 1 CAPSULE BY MOUTH THREE TITO ES A DAY 270 Dec 07, 2019 [id number] Mar 18, 2019 BRITTANEY VILLEDA [facility] HYDROCODONE 10MG/ACETAMINOPHEN 325MG TAB Non-VA TAKE ONE TABLET BY MOUTH FOUR TIMES A DAY Non-VA Documented by: RAMY TRENT nted at: [facility] LISINOPRIL 10MG TAB Discontinued TAKE ONE-HALF TABLET BY MOUTH EVERY MORNING FOR HEART OR HIGH BLOOD PRESSURE 15 Jun 01, 2019 [id number] Jun 02, 2018 BRITTANEY VILLEDA [facility] LOSARTAN 25MG TAB Active TAKE ONE TABLET BY MOUTH ONCE A DAY FOR BLOOD PRESSURE 90 Jan 09, 2020 [id number] Apr 23, 2019 BRITTANEY VILLEDA CBO C LOSARTAN 25MG TAB Discontinued TAKE ONE TABLET BY M OUTH ONCE A DAY FOR BLOOD PRESSURE 90 July 13, 2019 [id number] Nov 14, 2018 TIERRA KWONG [facility] MELOXICAM 15MG TAB TAKE ONE TABLET BY M OUTH ONCE A DAY FOR PAIN OR INFLAMMATION. 90 Jun 01, 2019 [id number] Mar 18, 2019 BRITTANEY VILLEDA CBTRERENCE METOPROLOL TARTRATE 25MG TAB Active TAKE ONE-SMITH LF TABLET BY MOUTH TWO TIMES A DAY FOR HEART/BLOOD PRESSURE. TAKE WITH OR IMMEDIATELY FOLLOWING FOOD. 90 Jan 09, 2020 [id number] Apr 23, 2019 BRITTANEY VILLEDA METOPROLOL TARTRATE 25MG TAB Discontinued TAKE ONE-SMITH LF TABLET BY MOUTH TWO TIMES A DAY FOR HEART/BLOOD PRESSURE. TAKE WITH OR IMMEDIATELY FOLLOWING FOOD. 90 July 13, 2019 [id number] Nov 14, 2018 TIERRA KWONG [facility] SIMVASTATIN 40MG TAB Active TAKE ONE-HALF TABLE T BY MOUTH AT BEDTIME FOR CHOLESTEROL - REPORT ANY UNEXPLAINED MUSCLE PAIN OR WEAKNESS TO YOUR PROVIDER 45 Sep 27, 2019 [id number] Jun 24, 2019 BRITTANEY VILLEDA [facility] SIMVASTATIN 40MG TAB Discontinued TAKE ONE-HALF TABLE T BY MOUTH AT BEDTIME FOR CHOLESTEROL - REPORT ANY UNEXPLAINED MUSCLE PAIN OR WEAKNESS TO YOUR PROVIDER 45 Sep 23, 2018 [id number] Jul 05, 2018 BRITTANEY VILLEDA [facility] TAMSULOSIN HCL 0.4MG CAP Discontinued TAKE ONE CAPSUL E BY MOUTH ONCE A DAY FOR PROSTATE. TAKE AT THE SAME TIME EACH DAY WITH FOOD. 90 Jun 17 9 [id number] Jun 14, 2018 BRITTANEY VILLEDA TAMSULOSIN HCL 0.4MG CAP TAKE ONE CAPSUL E BY MOUTH ONCE A DAY FOR PROSTATE. TAKE AT THE SAME TIME EACH DAY WITH FOOD. 90 August 01 0 [id number] Jun 24, 2019 BRITTANEY VILLEDA TIOTROPIUM 2.5MCG/ACTUAT INHL,ORAL,60D,4GM Active INHALE 2 PUFFS BY ORAL INHALATION ONCE A DAY FOR BREATHING. DON'T USE WITH IPRATROPIUM - REPLACES ADVAIR. 3 Jun 24, 2020 [id number] Jun 24, 2019 BRITTANEY VILLEDA [facility] TIOTROPIUM 2.5MCG/ACTUAT INHL,ORAL,60D,4GM Discontinued INHALE 2 PUFFS BY ORAL INHALATION ONCE A DAY FOR BREATHING. DON'T USE WITH IPRATROPIUM - REPLACES ADVAIR. 3 Oct 13, 2019 [id number] Mar 18, 2019 BRITTANEY VILLEDA [facility] Problems (Conditions): All historical and current Section Date Range: From patient's date of to the date document was create d. This section includes a list of Problems (Conditions) know n to [place] for the patient. It includes both active and inacti ve problems (conditions). The data comes from all [place] treatment facilities. Problem Status Problem Code Date of Onset Date of Resolution Comm ent(s) Provider Source Actinic keratosis (SNOMED CT 291878182) Active 702.0 BRITTANEY VILLEDA [facility] Alcohol Dependence * (ICD-9-CM 303.90/303.91) Active 303.90 ALEXANDRA KWONG [facility] Anemia Active 285.9 [facility] ANGINA PECTORIS NEC/NOS 413.9 Active 413.9 W ALEXANDRA DE JESUS [facility] Anxiety Disorder Active 300.00 AURELIANO LINCOLN [facility] Benign Neoplasm Skin Head, Neck, Scalp Active 216.4 RENALDO DACOSTA [facility] CABG Active 799.9 Oct 05, 2006 E ntered By: SATHISH SCOTT Comment: feb, 4-vessel SATHISH SCOTT [facility] Chest discomfort (SNOMED CT 832133965) Active 786.59 BRITTANEY VILLEDA [facility] Chronic airway obstruction, Not Elsewhere Classified Active 496. AURELIANO LINCOLN MD [facility] Chronic Low Back Pain Active 724.2 AURELIANO LINCOLN MD [facility] COPD * (ICD-9-CM 496.) Active 496. Robin SCOTT [facility] Coronary Artery Disease * (ICD-9-CM 414.9) Active 414.9 ALEXANDRA KWONG [facility] Coronary Atherosclerosis of [place] Coronary Vessel Active 414.01 August 03, 2010 Entered By: AURELIANO LINCOLN MD Comment: Bypass surgery AURELIANO LINCOLN [facility] Disorder of shoulder (SNOMED CT 924297778) Active 719.91 BRITTANEY VILLEDA [facility] Essential Hypertension Active 401.9 AURELIANO LINCOLN [facility] Hyperlipidemia Active 272.4 SATHISH SCOTT [facility] HYPERTENSION NOS 401.9 Active 401.9 [facility] Impotence (SNOMED CT 232756461) Active 302.72 BRITTANEY VILLEDA [facility] 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 AURELIANO LIU MD [facility] Marijuana Dependence unspecified Active 304.30 AURELIANO LINCOLN MD [facility] Microscopic Hematuria (ICD-9-CM 599.72) Active 599.72 [facility] SALINAS [facility] Other and unspecified hyperlipidemia Active 272.4 AURELIANO LINCOLN MD [facility] Other, mixed, or unspecified drug abuse, continuous use Active 30 5.91 Jan 30, 2009 Entered By: SATHISH SCOTT Comment: urine drug screen positive for opitates and marijuannaMay 2009 Entered By: SATHISH SCOTT Comment: buying hydrocodone "off the street" [facility]ISH SCOTT [facility] Pain in joint involving ankle and foot (ICD-9-CM 719.47) Active 719 .47 SATHISH SCOTT [facility] Papular eruption (SNOMED CT 841607798) Active 709.8 [facility]ILLEDA [facility] Personal History of Noncompliance with M edical Treatment, Presenting Hazards to Active V15.81 [facility]ATHISH SCOTT [facility] Tobacco dependence syndrome (SNOMED CT 57045753) Active [id number] July 24, 2009 Entered By: SATHISH SCOTT Comment: one ppd [facility]I AVILA [facility] Transient Ischemic Attack * (ICD-9-CM 435.9) Active 435.9 SATHISH SCOTT [facility] ANIETY STAT NOS 300.00 Inactive 300.00 Jan 05, 2005 [facility]DR[facility] FLOREZ [facility] Bronchitis * (ICD-9-CM 490.) Inactive 490. Jan 05, 2005 [facility]ILLED[facility] Postsurgical Aortocoronary Bypass Status (ICD-9-CM V45.81) Inactive V45.81 Oct 05, 2006 SATHISH SCOTT [facility] Radiology Reports: +/- 30 days of [...] inform pt., thank you /nuno/ BRITTANEY VILLEDA [employer] Signed: 10/03/2018 15:45 Receipt Acknowledged By: 10/04/2018 10:01 /nuno/ BRITTANEY MILIAN ACE, LPN [facility]
--- OUTSIDE RECORDS SUMMARY | 2019-08-20 00:55 | XMS REPORT | Encounter Summary ---
Author Author Department 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 Role Phone BRITTANEY VILLEDA PCP Unavailable [...] PART B Apr 13, 2007 PART B [id number] [phone] JUAN MANUEL MARTIN PATIENT MEDICARE (WNR) MEDICARE (M) PART B Apr 13, 2007 PART B [id number] [phone] JUAN MANUEL MARTIN PATIENT MEDICARE (WNR) MEDICARE (M) PART A Sep 10, 2005 PART A [id number] MARTIN,GARY PATIENT MEDICARE (WNR) MEDICARE (M) PART A Sep 10, 2005 PART A [id number] [phone] JUAN MANUEL MARTIN PATIENT MEDICARE (WNR) MEDICARE (M) PART A Sep 10, 2005 PART A [id number] VERONICAJUAN MANUEL PATIENT Selected Encounter This section includes the information on record at [place] for the Encounter. Date/Time Encounter Type Encounter Description Reason Provider Source Oct 04, 2018 10:01 AM Outpatient Encounter ADMIN PAT ACTIVTIES (MELANIE CUADRA) [facility] I[facility] Encounter Template Text not used by CO Assessments - Encounter Diagnoses No Data Provided for This Section Plan of Treatment: Future Appointments (+ 6 months) and Future Tests (+/- 45 day s) The Plan of Treatment section includes future care activities for the patient fr om all [place] treatment facilities. This section includes future appointments and fu ture orders which are active, pending or scheduled. Future Appointments This section includes appointments that were scheduled t o occur 6 months from the date of the Encounter, up to a maximum of 20 appointme nts. The data comes from all [place] treatment facilities. Appointment Date/Time Appointment Type Appointment Facili ty Name Nov 02, 2018 09:00 AM AMBULATORY - MEDICINE [facility] Jan 02, 2019 08:30 AM AMBULATORY - NONE [facility] Jan 08, 2019 09:00 AM AMBULATORY - MEDICINE [facility] Jan 23, 2019 09:15 AM AMBULATORY - NONE [facility] Surgical Procedures: All associated to [...] and tobacco- related health factors from the CO facility where the Encounter took place. Current Smoking Status This section includes the most current smoking, or tobacco -related health factor, from the CO facility where the Encounter took place. Date/Time Current Smoking Status Comment Facility May 28, 2018 11:45 AM VA-TOBACCO FORMER USER [facility] Tobacco Use History This section includes a history of the smoking, or tobacco -related health factors, that were collected on or before the date of the Encoun ter. The data comes from the CO facility where the Encounter took place. Date/Time Smoking Status/Tobacco Use Comment [facility] May 28, 2018 11:45 AM VA-TOBACCO QUIT 15 YRS OR MORE [place] [facility] Dec 25, 2017 02:23 PM NON-TOBACCO USER KO [facility] Jan 25, 2017 09:53 AM NON-TOBACCO USER KO [facility] Dec 22, 2015 09:45 AM NON-TOBACCO USER KO [facility] Advance Directives: All historical and current [...] Oct 17, 2000 ADVANCE DIRECTIVE EUNICE RODRIGUEZ [facility], [place] 15 Allergies and Adverse Reactions [...] Reaction(s) Severity Source No Known Allergies [facility] ([place], [place]) No Allergy Assessment on File JEOVANNY MORGAN [...] A DAY NEEDED 180 Jan 09, 2020 [id number] Apr 10, 2019 MAK VILLEDA CBTERRENCE ALBUTEROL SO4 0.083% INHL,3ML Discontinued USE 3 MLS IN NEBULIZER FOR INHALATION TWO TIMES A DAY NEEDED 180 Jan 27, 2019 [id number] Nov 01, 2018 BRITTANEY VENEGAS ALBUTEROL SO4 90MCG/ACTUAT (CFC-F) INHL,ORAL,6.7GM Active INHALE 2 PUFFS BY ORAL INHALATION TWO TIMES A DAY NEEDED - RINSE MOUTHPIECE FREQUENTLY TO PREVENT CLOGGING 2 Aug 30, 2019 [id number] Mar 18, 2019 BRITTANEY VILLEDA CBTERRENCE ALBUTEROL SO4 90MCG/ACTUAT (CFC-F) INHL,ORAL,6.7GM Discontin ued INHALE 2 PUFFS BY ORAL INHALATION TWO TIMES A DAY NEEDED - RINSE MOUTHPIECE FREQUENTLY TO PREVENT CLOGGING 2 Mar 27, 2019 [id number] Aug 30, 2018 BRITTANEY VILLEDA BUDESONIDE 80MCG/FORMOTEROL FUM 4.5MCG/SPRAY INHL,ORAL,10.2G M Active INHALE 2 PUFFS BY ORAL INHALATION TWO TIMES A DAY FOR BREATHING. SHAKE WELL. RINSE MOUTH AND SPIT AFTER EACH USE. 3 Jun 24, 2020 [id number] Jun 24, 2019 BRITTANEY VILLEDA BUDESONIDE 80MCG/FORMOTEROL FUM 4.5MCG/SPRAY INHL,ORAL,10.2G M Discontinued INHALE 2 PUFFS BY ORAL INHALATION TWO TIMES A DAY FOR BREATHING. SHAKE WELL. RINSE MOUTH AND SPIT AFTER EACH USE. 3 Dec 07, 2019 [id number] Mar 18, 2019 BRITTANEY VILLEDA FERROUS SO4 324MG TAB,EC Active TAKE ONE TABLET BY MOUTH TWO TIMES A DAY FOR IRON SUPPLEMENTATION. MAY TAKE WITH FOOD IF NOT TOLERATED ON EMPTY STOMACH 200 Jan 09, 2020 [id number] Apr 23, 2019 BRITTANEY VILLEDA [facility] FERROUS SO4 324MG TAB,EC Discontinued TAKE ONE TABLET BY MOUTH TWO TIMES A DAY FOR IRON SUPPLEMENTATION. MAY TAKE WITH FOOD IF NOT TOLERATED ON EMPTY STOMACH 200 May 02, 2019 [id number] Nov 14, 2018 BRITTANEY VILLEDA C FOLIC ACID 1MG TAB Active TAKE ONE TABLET BY MOUTH ONCE A DAY 90 Nov 22, 2019 [id number] Mar 18, 2019 BRITTANEY VILLEDA FOLIC ACID 1MG TAB Discontinued TAKE ONE TABLET BY MOUTH ONCE A DAY 90 May 02, 2019 [id number] Sep 26, 2018 BRITTANEY VILLEDA GABAPENTIN 300MG CAP Discontinued TAKE 2 CAPSULES BY MOUTH FOUR TITO ES A DAY 720 Jan 27, 2019 [id number] Nov 14, 2018 BRITTANEY VILLEDA GABAPENTIN 400MG CAP Active TAKE 1 CAPSULE BY MOUTH THREE TITO ES A DAY 270 Dec 07, 2019 [id number] Mar 18, 2019 BRITTANEY VILLEDA HYDROCODONE 10MG/ACETAMINOPHEN 325MG TAB Non-VA TAKE ONE TABLET BY MOUTH FOUR TIMES A DAY Non-VA Documented by: RAMY TRENT nted at: STEFANI SPAIN LISINOPRIL 10MG TAB Discontinued TAKE ONE-HALF TABLET BY MOUTH EVERY MORNING FOR HEART OR HIGH BLOOD PRESSURE 15 Jun 01, 2019 [id number] Jun 02, 2018 BRITTANEY VILLEDA [facility] LOSARTAN 25MG TAB Active TAKE ONE TABLET BY MOUTH ONCE A DAY FOR BLOOD PRESSURE 90 Jan 09, 2020 [id number] Apr 23, 2019 BRITTANEY VILLEDA C LOSARTAN 25MG TAB Discontinued TAKE ONE TABLET BY M OUTH ONCE A DAY FOR BLOOD PRESSURE 90 July 13, 2019 [id number] Nov 14, 2018 TIERRA KWONG [facility] MELOXICAM 15MG TAB TAKE ONE TABLET BY M OUTH ONCE A DAY FOR PAIN OR INFLAMMATION. 90 Jun 01, 2019 [id number] Mar 18, 2019 RONAL,BRITTANEY B P [facility] METOPROLOL TARTRATE 25MG TAB Active TAKE ONE-SMITH LF TABLET BY MOUTH TWO TIMES A DAY FOR HEART/BLOOD PRESSURE. TAKE WITH OR IMMEDIATELY FOLLOWING FOOD. 90 Jan 09, 2020 [id number] Apr 23, 2019 BRITTANEY VILLEDA METOPROLOL TARTRATE 25MG TAB Discontinued TAKE ONE-SMITH LF TABLET BY MOUTH TWO TIMES A DAY FOR HEART/BLOOD PRESSURE. TAKE WITH OR IMMEDIATELY FOLLOWING FOOD. 90 July 13, 2019 [id number] Nov 14, 2018 TIERRA KWONG [facility] SIMVASTATIN 40MG TAB Active TAKE ONE-HALF TABLE T BY MOUTH AT BEDTIME FOR CHOLESTEROL - REPORT ANY UNEXPLAINED MUSCLE PAIN OR WEAKNESS TO YOUR PROVIDER 45 Sep 27, 2019 [id number] Jun 24, 2019 BRITTANEY VILLEDA [facility] SIMVASTATIN 40MG TAB Discontinued TAKE ONE-HALF TABLE T BY MOUTH AT BEDTIME FOR CHOLESTEROL - REPORT ANY UNEXPLAINED MUSCLE PAIN OR WEAKNESS TO YOUR PROVIDER 45 Sep 23, 2018 [id number] Jul 05, 2018 BRITTANEY VILLEDA [facility] TAMSULOSIN HCL 0.4MG CAP Discontinued TAKE ONE CAPSUL E BY MOUTH ONCE A DAY FOR PROSTATE. TAKE AT THE SAME TIME EACH DAY WITH FOOD. 90 Jun 17 9 [id number] Jun 14, 2018 BRITTANEY VILLEDA TAMSULOSIN HCL 0.4MG CAP TAKE ONE CAPSUL E BY MOUTH ONCE A DAY FOR PROSTATE. TAKE AT THE SAME TIME EACH DAY WITH FOOD. 90 August 01 0 [id number] Jun 24, 2019 BRITTANEY VILLEDA [facility] TIOTROPIUM 2.5MCG/ACTUAT INHL,ORAL,60D,4GM Active INHALE 2 PUFFS BY ORAL INHALATION ONCE A DAY FOR BREATHING. DON'T USE WITH IPRATROPIUM - REPLACES ADVAIR. 3 Jun 24, 2020 [id number] Jun 24, 2019 BRITTANEY VILLEDA TIOTROPIUM 2.5MCG/ACTUAT INHL,ORAL,60D,4GM Discontinued INHALE 2 PUFFS BY ORAL INHALATION ONCE A DAY FOR BREATHING. DON'T USE WITH IPRATROPIUM - REPLACES ADVAIR. 3 Oct 13, 2019 [id number] Mar 18, 2019 BRITTANEY VILLEDA [facility] Problems (Conditions): All historical and current Section Date Range: From patient's date of to the date document was create d. This section includes a list of Problems (Conditions) know n to CO for the patient. It includes both active and inacti ve problems (conditions). The data comes from all [place] treatment facilities. Problem Status Problem Code Date of Onset Date of Resolution Comm ent(s) Provider Source Actinic keratosis (SNOMED CT 333431970) Active 702.0 BRITTANEY VILLEDA [facility] Alcohol Dependence * (ICD-9-CM 303.90/303.91) Active 303.90 ALEXANDRA KWONG [facility] Anemia Active 285.9 [facility] ANGINA PECTORIS NEC/NOS 413.9 Active 413.9 W ALEXANDRA DE JESUS [facility] Anxiety Disorder Active 300.00 AURELIANO LINCOLN MD [facility] Benign Neoplasm Skin Head, Neck, Scalp Active 216.4 RENALDO DACOSTA [facility] CABG Active 799.9 Oct 05, 2006 E ntered By: SATHISH SCTOT Comment: feb, 4-vessel SATHISH SCOTT [facility] Chest discomfort (SNOMED CT 526249268) Active 786.59 BRITTANEY VILLEDA [facility] Chronic airway obstruction, Not Elsewhere Classified Active 496. AURELIANO LINCOLN MD [facility] Chronic Low Back Pain Active 724.2 AURELIANO LINCOLN MD [facility] COPD * (ICD-9-CM 496.) Active 496. Robin SCOTT [facility] Coronary Artery Disease * (ICD-9-CM 414.9) Active 414.9 ALEXANDRA KWONG [facility] Coronary Atherosclerosis of [place] Coronary Vessel Active 414.01 August 03, 2010 Entered By: AURELIANO LINCOLN MD Comment: Bypass surgery AURELIANO LINCOLN MD [facility] Disorder of shoulder (SNOMED CT 803114273) Active 719.91 BRITTANEY VILELDA [facility] Essential Hypertension Active 401.9 AURELIANO LINCOLN MD [facility] Hyperlipidemia Active 272.4 SATHISH SCOTT [facility] HYPERTENSION NOS 401.9 Active 401.9 ALEXANDRA KWONG [facility] Impotence (SNOMED CT 099110436) Active 302.72 BRITTANEY VILLEDA [facility] 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 AURELIANO LIU MD [facility] Marijuana Dependence unspecified Active 304.30 AURELIANO LINCOLN MD [facility] Microscopic Hematuria (ICD-9-CM 599.72) Active 599.[address] [facility] ([place] [place]) Other and unspecified hyperlipidemia Active 272.4 AURELIANO LINCOLN MD [facility] Other, mixed, or unspecified drug abuse, continuous use Active 30 5.91 Jan 30, 2009 Entered By: SATHISH SCOTT Comment: urine drug screen positive for opitates and marijuannaMay 2009 Entered By: SATHISH SCOTT Comment: buying hydrocodone "off the street" [facility] Pain in joint involving ankle and foot (ICD-9-CM 719.47) Active 719 .47 [facility] Papular eruption (SNOMED CT 280138419) Active 709.8 [facility] Personal History of Noncompliance with M edical Treatment, Presenting Hazards to Active V15.81 [facility] Tobacco dependence syndrome (SNOMED CT 35362206) Active [id number] July 24, 2009 Entered By: SATHISH SCOTT Comment: one ppd YUMI AVILA [facility] Transient Ischemic Attack * (ICD-9-CM 435.9) Active 435.9 SATHISH SCOTT [facility] ANIETY STAT NOS 300.00 Inactive 300.00 Jan 05, 2005 [facility]DR[facility] Bronchitis * (ICD-9-CM 490.) Inactive 490. Jan 05, 2005 [facility] Postsurgical Aortocoronary Bypass Status (ICD-9-CM V45.81) Inactive V45.81 Oct 05, 2006 SATHISH SCOTT [facility] Radiology Reports: +/- 30 days [...] AUTHOR: BELLA CHOUDHURY COSIGNER: URGENCY: STATUS: COMPLETED [facility] [address] [place] [address] JUAN MANUEL MARTIN [address] [place] [address], [id number] Sep Dear JUAN MANUEL MARTIN, The purpose of this letter is to inform you of your test results done recently at the [facility],[place], [place]. LABORATORY results were abnormal Comments: Hemoglobin [...]
--- OUTSIDE RECORDS SUMMARY | 2019-08-20 00:55 | XMS REPORT | Encounter Summary ---
Author Author [facility] JUAN MANUEL posey Organization Department of [facility] Address [address] [place] [id number] Phone Unavailable Care Team Providers Care Tassel Maker Name Role Phone BRITTANEY VILLEDA PCP [...] PART B Apr 13, 2007 PART B [id number] [phone] MARTINJUAN MANUEL PATIENT MEDICARE (WNR) MEDICARE (M) PART B Apr 13, 2007 PART B [id number] [phone] JUAN MANUEL MARTIN PATIENT MEDICARE (WNR) MEDICARE (M) PART A Sep 10, 2005 PART A [id number] [phone] MARTIN,JUAN MANUEL PATIENT MEDICARE (WNR) MEDICARE (M) PART A Sep 10, 2005 PART A [id number] [phone] JUAN MANUEL MARTIN PATIENT MEDICARE (WNR) MEDICARE (M) PART A Sep 10, 2005 PART A [id number] JUAN MANUEL MARTIN PATIENT Selected Encounter This section includes the information on record at [place] for the Encounter. Date/Time Encounter Type Encounter Description Reason Provider Source Aug 28, 2018 03:17 PM Outpatient Encounter COMMUNITY CARE CONSULT [facility] I[facility] Encounter Template Text not used by VA Assessments - Encounter Diagnoses No Data Provided for This Section Plan of Treatment: Future Appointments (+ 6 months) and Future Tests (+/- 45 day s) The Plan of Treatment section includes future care activities for the patient fr om all [place] treatment facilities. This section includes future appointments and fu ture orders which are active, pending or scheduled. Future Appointments This section includes appointments that were scheduled t o occur 6 months from the date of the Encounter, up to a maximum of 20 appointme nts. The data comes from all [place] treatment facilities. Appointment Date/Time Appointment Type Appointment Facili ty Name Nov 02, 2018 09:00 AM AMBULATORY - MEDICINE [facility] Jan 02, 2019 08:30 AM AMBULATORY - NONE [facility] Jan 08, 2019 09:00 AM [facility]INE [facility] Jan 23, 2019 09:15 AM AMBULATORY - NONE [facility] Surgical Procedures: All associated to the encounter No Data Provided for This Section Lab Results: +/- 30 days of the encounter This section includes the Chemistry and Hematology Lab R esults on record with [place] for the patient. Radiology Reports and Pathology Report s are provided separately, in subsequent sections. Lab Results This section contains the Chemistry/Hematology Results kenyatta t were resulted 30 days before or 30 days after the date of the Encounter. Date/Time Source Result Type Result - Unit Interpretation Reference Range Comment Aug 15, 2018 08:45 AM [facility] CBC & DIFF Specimen Type: BLOOD [...] docume nt. The data comes from all [place] facilities. Date Advance Directives Provider Source Jan 02, 2018 ADVANCE DIRECTIVE DISCUSSION FLO KRUEGER [facility] Oct 17, 2000 ADVANCE DIRECTIVE EUNICE RODRIGUEZ [facility] Allergies and Adverse Reactions (ADRs): All historical and current Section Date Range: From patient's date of to the date document was create d. This section includes Allergies and Adverse Reactions (ADR s) on record with [facility] for the patient. The data comes from a ll [place] treatment facilities. It does not list Allergies/ADRs that were removed or entered in error. Some allergies/ADRs may be reported in t he Immunization section. Allergen Event Date Event Type Reaction(s) Severity Source No Known Allergies [facility] No Allergy Assessment on File JEOVANNY MORGAN Medications: VA dispensed (-15 months) and Non-VA Documented (Obtained Outside V A) Section Date Range: 1) prescriptions processed by a VA pharmacy in the last 15 m ont, and 2) all medications recorded in the [place] medical record as "non-VA medic ations". Pharmacy terms refer to VA pharmacy's work on prescriptions. VA patient s are advised to take their medications as instructed by their health care team. The data comes from all [place] treatment facilities. Glossary of Pharmacy Terms:Active = A prescription that can be filled at the local [place] pharmacy.Active: On Hold = An active prescription that will not be filled until pharmacy resolves the issue.Active: Susp = An active prescription that is not scheduled to be filled yet.Clinic Order = A medication received during a visit to a [place] clinic or emergency department (currently not available).Discontinued [...] may be a prescription from either the [place] or other providers that was filled outside the [place]. Or, it may be an over the [...] A DAY NEEDED 180 Jan 09, 2020 [id number] Apr 10, 2019 MAK VILLEDA [facility] ALBUTEROL SO4 0.083% INHL,3ML Discontinued USE 3 MLS IN NEBULIZER FOR INHALATION TWO TIMES A DAY NEEDED 180 Jan 27, 2019 [id number] Nov 01, 2018 BRITTANEY VENEGAS [facility] ALBUTEROL SO4 90MCG/ACTUAT (CFC-F) INHL,ORAL,6.7GM Active INHALE 2 PUFFS BY ORAL INHALATION TWO TIMES A DAY NEEDED - RINSE MOUTHPIECE FREQUENTLY TO PREVENT CLOGGING 2 Aug 30, 2019 [id number] Mar 18, 2019 BRITTANEY VILLEDA [facility] ALBUTEROL SO4 90MCG/ACTUAT (CFC-F) INHL,ORAL,6.7GM Discontin ued INHALE 2 PUFFS BY ORAL INHALATION TWO TIMES A DAY NEEDED - RINSE MOUTHPIECE FREQUENTLY TO PREVENT CLOGGING 2 Mar 27, 2019 [id number] Aug 30, 2018 BRITTANEY VILLEDA BUDESONIDE 80MCG/FORMOTEROL FUM 4.5MCG/SPRAY INHL,ORAL,10.2G M Active INHALE 2 PUFFS BY ORAL INHALATION TWO TIMES A DAY FOR BREATHING. SHAKE WELL. RINSE MOUTH AND SPIT AFTER EACH USE. 3 Jun 24, 2020 [id number] Jun 24, 2019 BRITTANEY VILLEDA BUDESONIDE 80MCG/FORMOTEROL FUM 4.5MCG/SPRAY INHL,ORAL,10.2G M Discontinued INHALE 2 PUFFS BY ORAL INHALATION TWO TIMES A DAY FOR BREATHING. SHAKE WELL. RINSE MOUTH AND SPIT AFTER EACH USE. 3 Dec 07, 2019 [id number] Mar 18, 2019 BRITTANEY VILLEDA FERROUS SO4 324MG TAB,EC Active TAKE ONE TABLET BY MOUTH TWO TIMES A DAY FOR IRON SUPPLEMENTATION. MAY TAKE WITH FOOD IF NOT TOLERATED ON EMPTY STOMACH 200 Jan 09, 2020 [id number] Apr 23, 2019 BRITTANEY VILLEDA FERROUS SO4 324MG TAB,EC Discontinued TAKE ONE TABLET BY MOUTH TWO TIMES A DAY FOR IRON SUPPLEMENTATION. MAY TAKE WITH FOOD IF NOT TOLERATED ON EMPTY STOMACH 200 May 02, 2019 [id number] Nov 14, 2018 BRITTANEY VILLEDA C FOLIC ACID 1MG TAB Active TAKE ONE TABLET BY MOUTH ONCE A DAY 90 Nov 22, 2019 [id number] Mar 18, 2019 BRITTANEY VILLEDA FOLIC ACID 1MG TAB Discontinued TAKE ONE TABLET BY MOUTH ONCE A DAY 90 May 02, 2019 [id number] Sep 26, 2018 BRITTANEY VILLEDA GABAPENTIN 300MG CAP Discontinued TAKE 2 CAPSULES BY MOUTH FOUR TITO ES A DAY 720 Jan 27, 2019 [id number] Nov 14, 2018 BRITTANEY VILLEDA GABAPENTIN 400MG CAP Active TAKE 1 CAPSULE BY MOUTH THREE TITO ES A DAY 270 Dec 07, 2019 [id number] Mar 18, 2019 BRITTANEY VILLEDA HYDROCODONE 10MG/ACETAMINOPHEN 325MG TAB Non-VA TAKE ONE TABLET BY MOUTH FOUR TIMES A DAY Non-VA Documented by: RAMY TRENT nted at: STEFANI SPAIN LISINOPRIL 10MG TAB Discontinued TAKE ONE-HALF TABLET BY MOUTH EVERY MORNING FOR HEART OR HIGH BLOOD PRESSURE 15 Jun 01, 2019 [id number] Jun 02, 2018 BRITTANEY VILLEDA LOSARTAN 25MG TAB Active TAKE ONE TABLET BY MOUTH ONCE A DAY FOR BLOOD PRESSURE 90 Jan 09, 2020 [id number] Apr 23, 2019 BRITTANEY VILLEDA CBO C LOSARTAN 25MG TAB Discontinued TAKE ONE TABLET BY M OUTH ONCE A DAY FOR BLOOD PRESSURE 90 July 13, 2019 [id number] Nov 14, 2018 TIERRA KWONG [facility] MELOXICAM 15MG TAB TAKE ONE TABLET BY M OUTH ONCE A DAY FOR PAIN OR INFLAMMATION. 90 Jun 01, 2019 [id number] Mar 18, 2019 BRITTANEY VILLEDA [facility] METOPROLOL TARTRATE 25MG TAB Active TAKE ONE-SMITH LF TABLET BY MOUTH TWO TIMES A DAY FOR HEART/BLOOD PRESSURE. TAKE WITH OR IMMEDIATELY FOLLOWING FOOD. 90 Jan 09, 2020 [id number] Apr 23, 2019 BRITTANEY VILLEDA [facility] METOPROLOL TARTRATE 25MG TAB Discontinued TAKE ONE-SMITH LF TABLET BY MOUTH TWO TIMES A DAY FOR HEART/BLOOD PRESSURE. TAKE WITH OR IMMEDIATELY FOLLOWING FOOD. 90 July 13, 2019 [id number] Nov 14, 2018 [facility] SIMVASTATIN 40MG TAB Active TAKE ONE-HALF TABLE T BY MOUTH AT BEDTIME FOR CHOLESTEROL - REPORT ANY UNEXPLAINED MUSCLE PAIN OR WEAKNESS TO YOUR PROVIDER 45 Sep 27, 2019 [id number] Jun 24, 2019 BRITTANEY VILLEDA C SIMVASTATIN 40MG TAB Discontinued TAKE ONE-HALF TABLE T BY MOUTH AT BEDTIME FOR CHOLESTEROL - REPORT ANY UNEXPLAINED MUSCLE PAIN OR WEAKNESS TO YOUR PROVIDER 45 Sep 23, 2018 [id number] Jul 05, 2018 BRITTANEY VILLEDA CBO C TAMSULOSIN HCL 0.4MG CAP Discontinued TAKE ONE CAPSUL E BY MOUTH ONCE A DAY FOR PROSTATE. TAKE AT THE SAME TIME EACH DAY WITH FOOD. 90 Jun 17 9 [id number] Jun 14, 2018 BRITTANEY VILLEDA TAMSULOSIN HCL 0.4MG CAP TAKE ONE CAPSUL E BY MOUTH ONCE A DAY FOR PROSTATE. TAKE AT THE SAME TIME EACH DAY WITH FOOD. 90 August 01 0 [id number] Jun 24, 2019 BRITTANEY VILLEDA [facility] TIOTROPIUM 2.5MCG/ACTUAT INHL,ORAL,60D,4GM Active INHALE 2 PUFFS BY ORAL INHALATION ONCE A DAY FOR BREATHING. DON'T USE WITH IPRATROPIUM - REPLACES ADVAIR. 3 Jun 24, 2020 [id number] Jun 24, 2019 RONALBRITTANEY Pura [facility] TIOTROPIUM 2.5MCG/ACTUAT INHL,ORAL,60D,4GM Discontinued INHALE 2 PUFFS BY ORAL INHALATION ONCE A DAY FOR BREATHING. DON'T USE WITH IPRATROPIUM - REPLACES ADVAIR. 3 Oct 13, 2019 [id number] Mar 18, 2019 BRITTANEY VILLEDA [facility] Problems (Conditions): All historical and current Section Date Range: From patient's date of to the date document was create d. This section includes a list of Problems (Conditions) know n to [facility] for the patient. It includes both active and inacti ve problems (conditions). The data comes from all [place] treatment facilities. Problem Status Problem Code Date of Onset Date of Resolution Comm ent(s) Provider Source Actinic keratosis (SNOMED CT 788044279) Active 702.0 BRITTANEY VILLEDA [facility] Alcohol Dependence * (ICD-9-CM 303.90/303.91) Active 303.90 [facility]LEXANDRA KWONG [facility] Anemia Active 285.9 SATHISH SCOTT [facility] ANGINA PECTORIS NEC/NOS 413.9 Active 413.9 W ALEXANDRA DE JESUS [facility] Anxiety Disorder Active 300.00 AURELIANO LINCOLN MD [facility] Benign Neoplasm Skin Head, Neck, Scalp Active 216.4 SANTOSCRENALDO HUNT [facility] CABG Active 799.9 Oct 05, 2006 E ntered By: SATHISH SCOTT Comment: feb, 4-vessel SATHISH SCOTT [facility] Chest discomfort (SNOMED CT 544080710) Active 786.59 BRITTANEY VILLEDA [facility] Chronic airway obstruction, Not Elsewhere Classified Active 496. AURELIANO LINCOLN MD [facility] Chronic Low Back Pain Active 724.2 AURELIANO LINCOLN MD [facility] COPD * (ICD-9-CM 496.) Active 496. [facility] Coronary Artery Disease * (ICD-9-CM 414.9) Active 414.9 [facility] Coronary Atherosclerosis of [place] Coronary Vessel Active 414.01 August 03, 2010 Entered By: AURELIANO LINCOLN MD Comment: Bypass surgery AURELIANO LINCOLN MD [facility] Disorder of shoulder (SNOMED CT 595282171) Active 719.91 [facility] Essential Hypertension Active 401.9 AURELIANO LINCOLN MD [facility] Hyperlipidemia Active 272.4 [facility]ISH SCOTT [facility] HYPERTENSION NOS 401.9 Active 401.9 ALEXANDRA KWONG [facility] Impotence (SNOMED CT 883470403) Active 302.72 [facility] 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 AURELIANO LIU MD [facility] Marijuana Dependence unspecified Active 304.30 AURELIANO LINCOLN MD [facility] Microscopic Hematuria (ICD-9-CM 599.72) Active 599.72 [facility] Other and unspecified hyperlipidemia Active 272.4 AURELIANO LINCOLN MD [facility] Other, mixed, or unspecified drug abuse, continuous use Active 30 5.91 Jan 30, 2009 Entered By: SATHISH SCOTT Comment: urine drug screen positive for opitates and marijuannaMay 2009 Entered By: SATHISH SCOTT Comment: buying hydrocodone "off the street" [facility] Pain in joint involving ankle and foot (ICD-9-CM 719.47) Active 719 .47 SATHISH SCOTT [facility] Papular eruption (SNOMED CT 328679709) Active 709.8 BRITTANEY VILLEDA [facility] Personal History of Noncompliance with M edical Treatment, Presenting Hazards to Active V15.81 SATHISH SCOTT [facility] Tobacco dependence syndrome (SNOMED CT 50142895) Active [id number] July 24, 2009 Entered By: SATHISH SCOTT Comment: one ramona [facility] Transient Ischemic Attack * (ICD-9-CM 435.9) Active 435.9 SATHISH SCOTT [facility] ANIETY STAT NOS 300.00 Inactive 300.00 Jan 05, 2005 ALEXANDRA FLOREZ [facility]I [facility] Bronchitis * (ICD-9-CM 490.) Inactive 490. Jan 05, 2005 BR[facility]ILLEDA [facility] Postsurgical Aortocoronary Bypass Status (ICD-9-CM V45.81) Inactive V45.81 Oct 05, 2006 SATHISH SCOTT [facility] Radiology Reports: +/- 30 days [...] of the Encounter. The data comes from [facility] treatment facilities. Date/Time Radiology Report Provider Source August 07, 2018 02:11 PM MRI CERVICAL SPINE W/O: JUAN MANUEL MARTIN [id number] -[id number] M Ex Date: AUGUST 07, 2018@14:11 Req Phys: BRITTANEY VILLEDA Pat Loc: [place] MRI-X (Req'g Loc) Img Loc: OUTSIDE [place]-[facility] Service: Unknown (Case [id number] COMPLETE) MRI CERVICAL SPINE W/O (MRI Detailed) CPT:76342 Contrast Media : unspecified contrast media Reason for Study: Outside images/exam. Clinical History: Outside images/exam. Report Status: Electronically Filed Date Reported: Report: Impression: Scanned Document/Radiology Procedure: This verification is for administrative purposes only. This exam was not performed or interpreted by a [place] Physician. MRI report dated 08/07/18 is located in Imaging Display in [employer]. (Go to tools, click imaging display, click on date of report, click on report.) MRI images are available in [employer] Imaging Display and [employer]. VERIFIED BY: / *ELECTRONICALLY FILED* [facility] Pathology Reports: +/- 30 days [...] [facility] Care Consult Results Radiology Comment: [facility] PEREZ/07-02-2018 /nuno/ ROCKY MONDRAGON MSA Signed: 08/28/2018 15:18 ROCKY MONDRAGON [facility]
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
--- OUTSIDE RECORDS SUMMARY | 2019-08-20 00:58 | XMS REPORT | Encounter Summary ---
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 Role Phone BRITTANEY VILLEDA PCP Unavailable [...] PART B Apr 13, 2007 PART B [id number] [phone] MARTIN,GARY PATIENT MEDICARE (WNR) MEDICARE (M) PART B Apr 13, 2007 PART B [id number] JUAN MANUEL MARTIN PATIENT MEDICARE (WNR) MEDICARE (M) PART A Sep 10, 2005 PART A [id number] MARTIN,GARY PATIENT MEDICARE (WNR) MEDICARE (M) PART A Sep 10, 2005 PART A [id number] [phone] JUAN MANUEL MARTIN PATIENT MEDICARE (WNR) MEDICARE (M) PART A Sep 10, 2005 PART A [id number] JUAN MANUEL MARTIN PATIENT Selected Encounter This section includes the information on record at MD for the Encounter. Date/Time Encounter Type Encounter Description Reason Provider Source Aug 19, 2019 01:01 PM Outpatient Encounter COMMUNITY CARE CONSULT BAR KOWNG [facility] IHE Encounter Template Text not used by MD Assessments - Encounter Diagnoses No Data Provided [...] Appointment Type Appointment Facili ty Name Jan 09, 2020 09:00 AM AMBULATORY - MEDICINE [facility] Active, Pending, and Scheduled Orders This section [...] the Encounter. The data comes from all [facility]. Test Date/Time Test Type Test Details Facility Name Aug 19, 2019 01:06 PM Consult Order COMMUNITY CARE-CATHLEEN RGENCY TREATMENT APPROVED Cons Bedside JEOVANNY [facility] Surgical Procedures: All associated to [...] 02, 2018 ADVANCE DIRECTIVE DISCUSSION FLO KRUEGER Oct 17, 2000 ADVANCE DIRECTIVE EUNICE RODRIGUEZ [facility], VISN 15 Allergies and Adverse Reactions (ADRs): All historical and current Section Date Range: From patient's date of to the date document was create d. This section includes Allergies and Adverse Reactions (ADR s) on record with MD for the patient. The data comes from [...] "non-VA medic ations". Pharmacy terms refer to MD pharmacy's work on prescriptions. VA patient s [...] A DAY NEEDED 180 Jan 09, 2020 [id number] Apr 10, 2019 MAK VILLEDAGRACIA Pura [place] ALBUTEROL SO4 0.083% INHL,3ML Discontinued USE 3 MLS IN NEBULIZER FOR INHALATION TWO TIMES A DAY NEEDED 180 Jan 27, 2019 [id number] Nov 01, 2018 BRITTANEY VENEGAS ALBUTEROL SO4 90MCG/ACTUAT (CFC-F) INHL,ORAL,6.7GM Active INHALE 2 PUFFS BY ORAL INHALATION TWO TIMES A DAY NEEDED - RINSE MOUTHPIECE FREQUENTLY TO PREVENT CLOGGING 2 Aug 30, 2019 [id number] Mar 18, 2019 BRITTANEY VILLEDA [facility] ALBUTEROL SO4 90MCG/ACTUAT (CFC-F) INHL,ORAL,6.7GM Discontin ued INHALE 2 PUFFS BY ORAL INHALATION TWO TIMES A DAY NEEDED - RINSE MOUTHPIECE FREQUENTLY TO PREVENT CLOGGING 2 Mar 27, 2019 [id number] Aug 30, 2018 BRITTANEY VILLEDA [facility] BUDESONIDE 80MCG/FORMOTEROL FUM 4.5MCG/SPRAY INHL,ORAL,10.2G M Active INHALE 2 PUFFS BY ORAL INHALATION TWO TIMES A DAY FOR BREATHING. SHAKE WELL. RINSE MOUTH AND SPIT AFTER EACH USE. 3 Jun 24, 2020 [id number] Jun 24, 2019 BRITTANEY VILLEDA BUDESONIDE 80MCG/FORMOTEROL FUM 4.5MCG/SPRAY INHL,ORAL,10.2G M Discontinued INHALE 2 PUFFS BY ORAL INHALATION TWO TIMES A DAY FOR BREATHING. SHAKE WELL. RINSE MOUTH AND SPIT AFTER EACH USE. 3 Dec 07, 2019 [id number] Mar 18, 2019 BRITTANEY VILLEDA [facility] FERROUS SO4 324MG TAB,EC Active TAKE ONE TABLET BY MOUTH TWO TIMES A DAY FOR IRON SUPPLEMENTATION. MAY TAKE WITH FOOD IF NOT TOLERATED ON EMPTY STOMACH 200 Jan 09, 2020 [id number] Apr 23, 2019 BRITTANEY VILLEDA [facility] FERROUS SO4 324MG TAB,EC Discontinued TAKE ONE TABLET BY MOUTH TWO TIMES A DAY FOR IRON SUPPLEMENTATION. MAY TAKE WITH FOOD IF NOT TOLERATED ON EMPTY STOMACH 200 May 02, 2019 [id number] Nov 14, 2018 BRITTANEY VILLEDA [facility] C FOLIC ACID 1MG TAB Active TAKE ONE TABLET BY MOUTH ONCE A DAY 90 Nov 22, 2019 [id number] Mar 18, 2019 BRITTANEY VILLEDA FOLIC ACID 1MG TAB Discontinued TAKE ONE TABLET BY MOUTH ONCE A DAY 90 May 02, 2019 [id number] Sep 26, 2018 BRITTANEY VILLEDA [facility] GABAPENTIN 300MG CAP Discontinued TAKE 2 CAPSULES BY MOUTH FOUR TITO ES A DAY 720 Jan 27, 2019 [id number] Nov 14, 2018 BRITTANEY VILLEDA [facility] GABAPENTIN 400MG CAP Active TAKE 1 CAPSULE BY MOUTH THREE TITO ES A DAY 270 Dec 07, 2019 [id number] Mar 18, 2019 BRITTANEY VILLEDA [facility] HYDROCODONE 10MG/ACETAMINOPHEN 325MG TAB Non-VA TAKE ONE TABLET BY MOUTH FOUR TIMES A DAY Non-VA Documented by: RAMY TRENT nted at: STEFANI SPAIN LISINOPRIL 10MG TAB Discontinued TAKE ONE-HALF TABLET BY MOUTH EVERY MORNING FOR HEART OR HIGH BLOOD PRESSURE 15 Jun 01, 2019 [id number] Jun 02, 2018 BRITTANEY VILLEDA [facility] LOSARTAN 25MG TAB Active TAKE ONE TABLET BY MOUTH ONCE A DAY FOR BLOOD PRESSURE 90 Jan 09, 2020 [id number] Apr 23, 2019 BRITTANEY VILLEDA CBO C LOSARTAN 25MG TAB Discontinued TAKE ONE TABLET BY M OUTH ONCE A DAY FOR BLOOD PRESSURE July 13, 2019 [id number] Nov 14, 2018 TIERRA KWONG [facility] MELOXICAM 15MG TAB TAKE ONE TABLET BY M OUTH ONCE A DAY FOR PAIN OR INFLAMMATION. 90 Jun 01, 2019 [id number] Mar 18, 2019 BRITTANEY VILLEDA METOPROLOL TARTRATE 25MG TAB Active TAKE ONE-SMITH LF TABLET BY MOUTH TWO TIMES A DAY FOR HEART/BLOOD PRESSURE. TAKE WITH OR IMMEDIATELY FOLLOWING FOOD. 90 Jan 09, 2020 [id number] Apr 23, 2019 BRITTANEY VILLEDA [facility] METOPROLOL TARTRATE 25MG TAB Discontinued TAKE ONE-SMITH LF TABLET BY MOUTH TWO TIMES A DAY FOR HEART/BLOOD PRESSURE. TAKE WITH OR IMMEDIATELY FOLLOWING FOOD. 90 July 13, 2019 [id number] Nov 14, 2018 TIERRA KWONG [facility] SIMVASTATIN 40MG TAB Active TAKE ONE-HALF TABLE T BY MOUTH AT BEDTIME FOR CHOLESTEROL - REPORT ANY UNEXPLAINED MUSCLE PAIN OR WEAKNESS TO YOUR PROVIDER 45 Sep 27, 2019 [id number] Jun 24, 2019 BRITTANEY VILLEDA CBO C SIMVASTATIN 40MG TAB Discontinued TAKE ONE-HALF TABLE T BY MOUTH AT BEDTIME FOR CHOLESTEROL - REPORT ANY UNEXPLAINED MUSCLE PAIN OR WEAKNESS TO YOUR PROVIDER 45 Sep 23, 2018 [id number] Jul 05, 2018 BRITTANEY VILLEDA [facility] TAMSULOSIN HCL 0.4MG CAP Discontinued TAKE ONE CAPSUL E BY MOUTH ONCE A DAY FOR PROSTATE. TAKE AT THE SAME TIME EACH DAY WITH FOOD. 90 Jun 17 9 [id number] Jun 14, 2018 BRITTANEY VILLEDA [facility] TAMSULOSIN HCL 0.4MG CAP TAKE ONE CAPSUL E BY MOUTH ONCE A DAY FOR PROSTATE. TAKE AT THE SAME TIME EACH DAY WITH FOOD. 90 August 01 0 [id number] Jun 24, 2019 BRITTANEY VILLEDA TIOTROPIUM 2.5MCG/ACTUAT INHL,ORAL,60D,4GM Active INHALE 2 PUFFS BY ORAL INHALATION ONCE A DAY FOR BREATHING. DON'T USE WITH IPRATROPIUM - REPLACES ADVAIR. 3 Jun 24, 2020 [id number] Jun 24, 2019 BRITTANEY VILLEDA CBTERRENCE TIOTROPIUM 2.5MCG/ACTUAT INHL,ORAL,60D,4GM Discontinued INHALE 2 PUFFS BY ORAL INHALATION ONCE A DAY FOR BREATHING. DON'T USE WITH IPRATROPIUM - REPLACES ADVAIR. 3 Oct 13, 2019 [id number] Mar 18, 2019 BRITTANEY VILLEDA [facility] Problems [...] ent(s) Provider Source Actinic keratosis (SNOMED CT 379219800) Active 702.0 BRITTANEY VILLEDA [facility] Alcohol Dependence * (ICD-9-CM 303.90/303.91) Active 303.90 ALEXANDRA KWONG [facility] Anemia Active 285.9 [facility]ISH SCOTT [facility] ANGINA PECTORIS NEC/NOS 413.9 Active 413.9 ALEXANDRA RUELAS [facility] Anxiety Disorder Active 300.[address] [facility] Benign Neoplasm Skin Head, Neck, Scalp Active 216.4 RENALDO DACOSTA YUMI Osuna [facility] CABG Active 799.9 Oct 05, 2006 E ntered By: SATHISH SCOTT Comment: feb, 4-vessel [facility] Chest discomfort (SNOMED CT 453616275) Active 786.59 [facility]ITTANE[facility]ILLEDA [facility] Chronic airway obstruction, Not Elsewhere Classified Active 496. AURELIANO LINCOLN [facility] Chronic Low Back Pain Active 724.[address] [facility] COPD * (ICD-9-CM 496.) Active 496. [facility] Coronary Artery Disease * (ICD-9-CM 414.9) Active 414.9 ALEXANDRA KWONG [facility] Coronary Atherosclerosis of [place] Coronary Vessel Active 414.01 August 03, 2010 Entered By: AURELIANO LINCOLN MD Comment: Bypass surgery AURELIANO LINCOLN [facility] Disorder of shoulder (SNOMED CT 150629722) Active 719.91 BRITTANEY VILLEDA [facility] Essential Hypertension Active 401.[address] [facility] Hyperlipidemia Active 272.4 SATHISH SCOTT [facility] HYPERTENSION NOS 401.9 Active 401.9 ALEXANDRA KWONG [facility] Impotence (SNOMED CT 450850110) Active 302.72 BRITTANEY VILLEDA [facility] 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 [facility] Marijuana Dependence unspecified Active 304.[address] [facility] Microscopic Hematuria (ICD-9-CM 599.72) Active 599.72 BRAD,[facility] Other and unspecified hyperlipidemia Active 272.[address] [facility] Other, mixed, or unspecified drug abuse, continuous use Active 30 5.91 Jan 30, 2009 Entered By: SATHISH SCOTT Comment: urine drug screen positive for opitates and marijuannaMay 2009 Entered By: SATHISH SCOTT Comment: buying hydrocodone "off the street" SATHISH SCOTT [facility] Pain in joint involving ankle and foot (ICD-9-CM 719.47) Active 719 .47 SATHISH SCOTT [facility] Papular eruption (SNOMED CT 474455660) Active 709.8 BRITTANEY VILLEDA [facility] Personal History of Noncompliance with M edical Treatment, Presenting Hazards to Active V15.81 [facility]ISH SCOTT [facility] Tobacco dependence syndrome (SNOMED CT 92943111) Active [id number] July 24, 2009 Entered By: SATHISH SCOTT Comment: one ppd YUMI AVILA [facility] Transient Ischemic Attack * (ICD-9-CM 435.9) Active 435.9 SATHISH SCOTT [facility] ANIETY STAT NOS 300.00 Inactive 300.00 Jan 05, 2005 ALEXANDRA FLOREZ [facility] Bronchitis * (ICD-9-CM 490.) Inactive 490. Jan 05, 2005 BRITTANEY VILLEDA [facility] Postsurgical Aortocoronary Bypass Status (ICD-9-CM [...] Encounter. Date/Time Encounter Note(s) Provider Source Aug 19, 2019 01:01 PM NONVA NOTE: LOCAL TITLE: COMMUNITY CARE EMERGENCY TREATMENT STANDARD TITLE: NONVA NOTE DATE OF NOTE: AUG 19, 2019@13:01 ENTRY DATE: AUG 19, 2019@13:01:10 AUTHOR: BAR KWONG EXP COSIGNER: URGENCY: STATUS: COMPLETED COMMUNITY CARE FACILITY - INTAKE SECTION: Facility: Hospital Notification Date: Aug@15:50 Method of Contact: Fax Point of Contact Name: Noman Samaniego Point of Contact Dept: Point of Contact Phone #: [phone] Point of Contact Fax #: [facility] Name: Hospital: [place] Address: City: [place] State: [place] Zip Code: Phone : Date Presenting to the Facility: Aug Chief Complaint: Non-Stemi Patient Admitted? Yes Date/Time: Admission Diagnosis: Attending-Treating MD: Type of Bed: requesting transfer? Unknown [facility] HE[facility] CARE ELIGIBILITY WITH DETERMINATION Date/Time of Review: Aug@13:03 Service Connected Disabilities: DS - Disabilities Eligibility: NSC, VA PENSION VERIFIED [facility] Health Care Eligibility: Were services rendered in your local geographical area? Care was rendered within local geographical area. Clinical Review Was the VA timely notified within 72 hours of treatment? Yes Is care provided by an in-network provider? Yes Is enrolled or exempt from enrollment? Yes Meets Prudent Layperson definition of an emergency: Yes VA feasibly available: No Approved for 38 CFR 17.4020(c). Date/Time Approved: Aug@13:03 Communicate decision and send approval letter with authorization. Continue following the [place] during inpatient stay until transferred, discharge or refuses. IP stay, OCC UR RN doesn't issue approval/disapproval or send letters (UR AMSA responsibility), [facility] UR RN to follow stay, faxed request for ED notes/signed H&P/progress & procedure notes/DC plan/signed DC summary when DCd to OS UR/CM. Also notified OS UR that DAILY clinical updates were required and [place] may be placed at point of stability by [facility] if clinicals not received timely. Per supervisor mails, documentation of daily clinical requests is not required. Determined to be low risk for readmission. OCC UR RN interventions include: Notification of PCP of admit (if assigned)and need for hospital f/u and consults as needed when DCd. Request signed H&P and DC summary. Daily clinical requests will not be requested/documented unless become aware of change in clinical condition or anticipated LOS is exceeded. /nuno/ STEVE CRAVEN, RN OCC Utilization Review Nurse Signed: 08/19/2019 13:11 BAR KWONG [facility]
== END 2019-08-19 23:08 | disposition home or self-care (01) ==
LOC: EDUNIT# 20:55 → ER 20:56
DX: S30.1XXA Contusion of abdominal wall, initial encounter (principal); I95.1 Orthostatic hypotension; I10 Essential (primary) hypertension; I25.2 Old myocardial infarction; J43.9 Emphysema, unspecified; E78.00 Pure hypercholesterolemia, unspecified; I25.10 Atherosclerotic heart disease of native coronary artery without angina pectoris; Z95.5 Presence of coronary angioplasty implant and graft; Z99.81 Dependence on supplemental oxygen; Z79.82 Long term (current) use of aspirin; Z87.891 Personal history of nicotine dependence; Z95.1 Presence of aortocoronary bypass graft; X58.XXXA Exposure to other specified factors, initial encounter
CPT/HCPCS: 36415; 71045; 80053; 85025; 85610; 85730; 93005; 94640

== ENCOUNTER → 2019-10-17 | Outpatient (CLI) | payer MEDICARE ==
[~2019-10-17] MED LIST changes: +HOLD METFORMIN - RECEIVED CONTRAST 20 ML VIAL IV SCH; +IOHEXOL 350 MG/ML 100 ML (OMNIPAQUE 350) VIAL IV ONE; +MULT-567 PO; -MULT1TAB69 PO; +NS 100 ML (IVPB) BAG IV ONE; +RT-ALBUTEROL SULF 2.5 MG/3 ML PRE-MIX VIAL INH ONE
[2019-10-17 08:05] LABS: BUN/CREATININE RATIO 8; CREATININE SERUM 0.83 MG/DL (0.60-1.30); GFR ESTIMATED > 60
--- NOTE | 2019-10-17 08:30 | NUR ---
PT DECLINED 6 MIN WALK TEST AT THIS TIME; DUE TO COVID PROTOCOLS, ALL PTS ARE REQUIRED TO KAUFFMAN FACE MASK IN [facility] [place]. PT STATED HE COULD NOT PERFORM WALK AT THIS TIME, IN HOSPITAL, DUE TO FACE MASK. HE STATES IT IS TOO DIFFICULT FOR HIM TO TRY TO TAKE DEEP BREATHS WITH MASK ON WHILE WALKING. PT HAD TO BE ESCORTED TO TEST TODAY WITH WHEEL CHAIR DUE TO SOA. PT DIRECTED TO FOLLOW UP WITH PHYSICIAN ABOUT WALK TEST, HE STATED HE WOULD. HE DID PERFORM PFT AND ESCORTED TO CT AFTER TEST TO COMPLETE CT TESTING.
--- NOTE | 2019-10-17 09:40 | Diagnostic Imaging Report ---
PROCEDURE: CT chest with contrast only. TECHNIQUE: Multiple contiguous axial images were obtained through the chest after administration of intravenous contrast. Auto Exposure Controls were utilized during the CT exam to meet ALARA standards for radiation dose reduction. INDICATION: Cough, COPD. COMPARISON: 12/12/2017 FINDINGS: Postsurgical changes of a CABG. No significant adenopathy within the chest. Moderate narrowing of the origin and proximal aspect of the left subclavian artery. No aneurysmal dilatation of the thoracic aorta. The heart is within normal limits in size. No pericardial effusion. No pleural effusion. No pneumothorax. Mild background centrilobular emphysematous changes. The lungs are clear of focal pulmonary nodule or opacity. The trachea is clear. No saddle pulmonary embolus. Calcified lymph nodes are noted within the partially visualized upper abdomen. Narrowing of the origins of the celiac artery and superior mesenteric artery with narrowing of the origins of the bilateral renal arteries. Chronic left-sided rib fractures. No acute osseous abnormality with scattered osseous degenerative changes. IMPRESSION: Mild background emphysematous changes without suspicious pulmonary opacity. Scattered vascular calcifications with resulting stenosis involving the origin of the left subclavian artery, celiac artery, and superior mesenteric artery, and bilateral renal arteries. Additional postsurgical and chronic findings as above. Dictated by: Dictated on workstation # [id number]
== END ==
LOC: RT 07:30
PROVIDERS: ATTEND Nurse Practitioner Family
DX: J44.9 Chronic obstructive pulmonary disease, unspecified (principal); F17.211 Nicotine dependence, cigarettes, in remission
CPT/HCPCS: 36415; 71260; 82565; 84520; 94060; 94726; 94729

== ENCOUNTER 2020-08-19 07:55 | Emergency (ER) | payer MEDICARE ==
[~2020-08-19] VITALS: Ht 180 cm; Wt 77.0 kg
[~2020-08-19 07:55] MED LIST changes: +ASPI-1238 PO; -ASPI-983 PO; -HOLD METFORMIN - RECEIVED CONTRAST 20 ML VIAL IV SCH; -IOHEXOL 350 MG/ML 100 ML (OMNIPAQUE 350) VIAL IV ONE; -NS 100 ML (IVPB) BAG IV ONE; -RT-ALBUTEROL SULF 2.5 MG/3 ML PRE-MIX VIAL INH ONE
--- NOTE | 2020-08-19 08:15 | ED Respiratory ---
General Chief Complaint: Respiratory Problems Stated Complaint: CONGESTION,COUGH, Nursing Triage Note: ARRIVED VIA AMB TO ROOM 05 WITH INCREASED SOA OVER LAST COUPLE OF DAYS. PT IS SOA AND HAVING DIFFICULTY BREATHING AT THIS TIME. Source: patient Exam Limitations: no limitations History of Present Illness Date Seen by Provider: Aug 19, 2020 Time Seen by Provider: 07:55 Initial Comments Patient is a 69-year-old male who presents to the emergency department with a chief complaint of shortness of breath over the last 24 hours. Patient states he has been using his albuterol inhaler as well as his nebulizer at home and cannot get the shortness of breath to improve. Patient states he has a history of COPD. He is on oxygen on presentation at 5 L per nasal cannula. Patient is actively struggling. He is not wheezing. Patient states that he has had a cough over the last 24 hours that is nonproductive. No reported fevers or chills. He does complain of "congestion". He denies any pain, chest pain abdominal pain, nausea, vomiting. All other review of systems reviewed and negative except as stated above. Timing/Duration: yesterday Severity: moderate Prior Episodes/Possible Cause: occasional episodes Modifying Factors: Improves With Albuterol Inhaler, Improves With Albuterol Nebulizer Associated Symptoms: cough Allergies and Home Medications Allergies Coded Allergies: No Known Drug Allergies (Unverified , 12/12/17) Home Medications Albuterol Sulfate 1 Puff Puff, 2 PUFF IH BID PRN for SHORTNESS OF BREATH, (Reported) 1 PUFF = 90 MCG Aspirin 81 Mg Tablet.dr, 81 MG PO DAILY, (Reported) Cyclobenzaprine HCl 10 Mg Tablet, 10 MG PO Q8HR Prescribed by: PEPITO PIERRE on 12/17/17 1013 Docusate Sodium 100 Mg Capsule, 100 MG PO BID Prescribed by: PEPITO PIERRE on 12/17/17 1013 Gabapentin 300 Mg Capsule, 1,500 MG PO HS, (Reported) TAKES 5 (300MG) CAPSULES Hydrocodone Bit/Acetaminophen 1 Tab Tab, 1-2 TAB PO Q6HR PRN for PAIN-MODERATE Prescribed by: PEPITO PIERRE on 12/17/17 1013 Losartan Potassium 50 Mg Tablet, 50 MG PO DAILY, (Reported) Multivitamin 1 Each Tablet, 1 TAB PO DAILY, (Reported) Prednisone 50 Mg Tab, 50 MG PO DAILY Prescribed by: CRISTO HARVEY on 08/19/20 0933 Simvastatin 40 Mg Tablet, 20 MG PO HS, (Reported) TAKES 1/2 (40MG) TABLET Tamsulosin HCl 0.4 Mg Cap, 0.4 MG PO HS, (Reported) Patient Home Medication List Home Medication List Reviewed: Yes Review of Systems Review of Systems Constitutional: see HPI EENTM: no symptoms reported Respiratory: cough, dyspnea on exertion; No phlegm; short of breath Cardiovascular: see HPI Gastrointestinal: no symptoms reported Genitourinary: no symptoms reported Musculoskeletal: no symptoms reported Skin: no symptoms reported All Other Systems Reviewed Negative Unless Noted: Yes Past Qtikmio-Desfzd-Alpdmz Hx Patient Social History Drug of Choice: denies Type Used: Cigarettes Former Smoker, Quit: Dec 13, 2016 2nd Hand Smoke Exposure: No Recent Infectious Disease Expo: No Recent Hopitalizations: No Immunizations Up To Date Tetanus Booster (TDap): Unknown Date of Pneumonia Vaccine: Aug 15, 2016 Seasonal Allergies Seasonal Allergies: No Past Medical History Surgeries: Yes (CABG,PANCREAS SURGERY,VASECTOMY, STENTS) Abdominal, Cardiac, CABG, Coronary Stent, Vasectomy Respiratory: Yes COPD, Emphysema Currently Using CPAP: No Currently Using BIPAP: No Cardiac: Yes Coronary Artery Disease, Heart Attack, High Cholesterol, Hypertension Neurological: No Reproductive Disorders: No Genitourinary: No Gastrointestinal: Yes Gastroesophageal Reflux, Esophageal Varices, Irritable Bowel Musculoskeletal: Yes (CHRONIC NECK AND BACK PAIN ) Degenerate Disk Disease, Chronic Back Pain, Fractures Endocrine: No HEENT: Yes Loss of Vision: Denies Hearing Impairment: Denies Cancer: No Psychosocial: Yes Anxiety, Depression Integumentary: No Blood Disorders: No Family Medical History No Pertinent Family Hx Physical Exam Vital Signs - First Documented 08/19/20 07:58 Temp 36.2 Pulse 85 Resp 16 B/P (MAP) 164/143 (150) Pulse Ox 98 O2 Delivery Nasal Cannula O2 Flow Rate 5.00 Capillary Refill : Less Than 3 Seconds Height: 5'11.00" Weight: 176lbs. 1.6oz. [id number]; 23.00 BMI Method: General Appearance: WD/WN, mild distress Eyes: Bilateral Eye Normal Inspection, Bilateral Eye PERRL, Bilateral Eye EOMI Neck: normal inspection Respiratory: decreased breath sounds, accessory muscle use, other (Very tight chest, poor overall air movement. No active wheezing is noted) Cardiovascular: regular rate, rhythm Gastrointestinal: non tender, soft Progress/Results/Core Measures Suspected Sepsis Recent Fever Within 48 Hours: No Infection Criteria Present: Suspected New Infection New/Unexplained Altered Menta: No Sepsis Screen: No Definite Risk SIRS Temperature: Pulse: 85 Respiratory Rate: 16 Laboratory Tests 08/19/20 08:07: White Blood Count 6.9 Blood Pressure 164 /143 Mean: 150 Laboratory Tests 08/19/20 08:07: Creatinine 0.71, Platelet Count 246 Results/Orders Lab Results Laboratory Tests Test 08/19/20 08:07 Range/Units White Blood Count 6.9 4.3-11.0 10^3/uL Red Blood Count 3.88 L 4.30-5.52 10^6/uL Hemoglobin 13.8 13.3-17.7 g/dL Hematocrit 41 40-54 % Mean Corpuscular Volume 105 H 80-99 fL Mean Corpuscular Hemoglobin 36 H 25-34 pg Mean Corpuscular Hemoglobin Concent 34 32-36 g/dL Red Cell Distribution Width 12.5 10.0-14.5 % Platelet Count 246 130-400 10^3/uL Mean Platelet Volume 8.4 L 9.0-12.2 fL Immature Granulocyte % (Auto) 0 % Neutrophils (%) (Auto) 59 42-75 % Lymphocytes (%) (Auto) 21 12-44 % Monocytes (%) (Auto) 14 H 0-12 % Eosinophils (%) (Auto) 5 0-10 % Basophils (%) (Auto) 1 0-10 % Neutrophils # (Auto) 4.0 1.8-7.8 10^3/uL Lymphocytes # (Auto) 1.5 1.0-4.0 10^3/uL Monocytes # (Auto) 1.0 0.0-1.0 10^3/uL Eosinophils # (Auto) 0.3 0.0-0.3 10^3/uL Basophils # (Auto) 0.1 0.0-0.1 10^3/uL Immature Granulocyte # (Auto) 0.0 0.0-0.1 10^3/uL Sodium Level 138 135-145 MMOL/L Potassium Level 4.5 3.6-5.0 MMOL/L Chloride Level 96 L 98-107 MMOL/L Carbon Dioxide Level 29 21-32 MMOL/L Anion Gap 13 5-14 MMOL/L Blood Urea Nitrogen 9 7-18 MG/DL Creatinine 0.71 0.60-1.30 MG/DL Estimat Glomerular Filtration Rate > 60 BUN/Creatinine Ratio 13 Glucose Level 105 70-105 MG/DL Calcium Level 9.8 8.5-10.1 MG/DL My Orders Orders - CRISTO HARVEY MD Albuterol/Ipra Inhalation Soln (Duoneb I (08/19/20 08:30) Svn Small Volume Nebulizer (08/19/20 08:24) Methylprednisolone Sod Succ (Solu-Medrol (08/19/20 08:30) Cbc With Automated Diff (08/19/20 08:24) Basic Metabolic Panel (08/19/20 08:24) Chest 1 View, Ap/Pa Only (08/19/20 08:24) Ekg Tracing (08/19/20 08:24) Medications Given in ED Current Medications Medications Dose Ordered Sig/Talon Route Start Time Stop Time Status Last Admin Dose Admin Albuterol/ Ipratropium 3 ml ONCE ONCE INH 08/19/20 08:30 08/19/20 08:35 DC 08/19/20 08:33 3 ML Methylprednisolone Sodium Succinate 125 mg ONCE ONCE IVP 08/19/20 08:30 08/19/20 08:35 DC 08/19/20 08:46 125 MG Vital Signs/I&O 08/19/20 08/19/20 07:58 09:43 Temp 36.2 Pulse 85 Resp 16 B/P (MAP) 164/143 (150) Pulse Ox 98 100 O2 Delivery Nasal Cannula Nasal Cannula O2 Flow Rate 5.00 2.00 Capillary Refill : Less Than 3 Seconds Blood Pressure Mean: 150 Progress Note : Time: 09:31 Progress Note Reevaluated patient and his labs look good. He states he is feeling better he is down to his 3 L per nasal cannula which he normally wears. He is satting in the mid 90s. He states that he feels better. He still has diminished breath sounds throughout, a very slight wheeze noted on the right. Patient will be started on prednisone 50 mg x 5 days. He will be advised to take Mucinex [id number] to help loosen up his congestion. His chest x-ray is normal, no evidence of pneumonia. I anticipate will discharge him within the hour. 1018 Patient is feeling much better and desirous of discharge. ECG Initial ECG Impression Date: Aug 19, 2020 Initial ECG Impression Time: 08:45 Initial ECG Rate: 79 Initial ECG Rhythm: Normal Sinus Initial ECG Intervals GA 143 QRS 103 QTC 433 Initial ECG Impression: Normal Diagnostic Imaging Diagonstic Imaging: Xray Plain Films/CT/US/NM/MRI: chest Comments [facility] [place], [place] NAME: JUAN MANUEL [facility] REC#: [id number] PT STATUS: REG ER : 1950 PHYSICIAN: CRISTO HARVEY MD ADMIT DATE: 08/19/20/ER Signed Date of Exam:08/19/20 CHEST 1 VIEW, AP/PA ONLY INDICATION: Shortness of breath. Comparison is made with prior examination from 08/19/2019. FINDINGS: The heart size is normal. There has been a previous median sternotomy and coronary artery bypass graft. There is air trapping compatible with COPD. There is no pleural effusion or pneumothorax. The mediastinum is unremarkable. IMPRESSION: No acute cardiopulmonary abnormality COPD Dictated by: Dictated on workstation # [id number] Dict: 08/19/20 0842 Trans: 08/19/20 0847 DEANNE [id number] Interpreted by: KEISHA HAQ MD Electronically signed by: KEISHA HAQ MD 08/19/20 0847 Departure Impression Primary Impression: Acute exacerbation of chronic obstructive pulmonary disease (COPD) Disposition: 01 HOME, SELF-CARE Condition: Improved Departure-Patient Inst. Decision time for Depature: 09:33 Referrals: NO,LOCAL PHYSICIAN (PCP/Family) Primary Care Physician Patient Instructions: Chronic Obstructive Pulmonary Disease (COPD), Including Emphysema Add. Discharge Instructions: Continue to use your nebulizer breathing treatments every 6 hours at home. You can use your inhaler as needed in between treatments. Start taking the steroids tomorrow, prednisone 50 mg daily for 5 days. If you run fever have increasing shortness of breath cough and congestion please come back to the emergency room for reevaluation. Start taking some Mucinex, [id number] today to help loosen your congestion. Follow-up with your primary care provider as needed. Scripts Prednisone (Prednisone) 50 Mg Tab 50 MG PO DAILY for 5 Days, #5 TAB Prov: CRISTO HARVEY MD 08/19/20 CRISTO HARVEY MD Aug 19, 2020 08:15
[2020-08-19] MEDS ORDERED: methylPREDNISolone 125 MG (Solu-MEDROL) VIAL IVP ONE (08:30)
[2020-08-19] MEDS ORDERED: RT-ALBUTEROL/IPRATROPIUM 3 ML (DUONEB) VIAL INH ONE (08:30)
[2020-08-19 08:31] LABS: BASOPHILS # (AUTO) 0.1 10^3/uL (0.0-0.1); BASOPHILS % (AUTO) 1 % (0-10); EOSINOPHILS # (AUTO) 0.3 10^3/uL (0.0-0.3); EOSINOPHILS % (AUTO) 5 % (0-10); HEMATOCRIT 41 % (40-54); HEMOGLOBIN 13.8 g/dL (13.3-17.7); LYMPHOCYTES # (AUTO) 1.5 10^3/uL (1.0-4.0); LYMPHOCYTES % (AUTO) 21 % (12-44); MEAN CORPUSCULAR HEMOGLOBIN 36 pg (25-34); MEAN CORPUSCULAR HGB CONC 34 g/dL (32-36); MEAN CORPUSCULAR VOLUME 105 fL (80-99); MEAN PLATELET VOLUME 8.4 fL (9.0-12.2); MONOCYTES % (AUTO) 14 % (0-12); NEUTROPHILS % (AUTO) 59 % (42-75); PLATELET COUNT 246 10^3/uL (130-400); WHITE BLOOD COUNT 6.9 10^3/uL (4.3-11.0)
[2020-08-19 08:34] LABS: CHLORIDE 96 MMOL/L (98-107)
[2020-08-19 08:35] LABS: POTASSIUM 4.5 MMOL/L (3.6-5.0); SODIUM 138 MMOL/L (135-145)
[2020-08-19 08:36] LABS: CALCIUM 9.8 MG/DL (8.5-10.1); GLUCOSE 105 MG/DL (70-105)
[2020-08-19 08:38] LABS: CARBON DIOXIDE 29 MMOL/L (21-32)
[2020-08-19 08:40] LABS: CREATININE SERUM 0.71 MG/DL (0.60-1.30); GFR ESTIMATED > 60
[2020-08-19 08:41] LABS: BUN/CREATININE RATIO 13
--- NOTE | 2020-08-19 08:44 | Diagnostic Imaging Report ---
INDICATION: Shortness of breath. Comparison is made with prior examination from 08/19/2019. FINDINGS: The heart size is normal. There has been a previous median sternotomy and coronary artery bypass graft. There is air trapping compatible with COPD. There is no pleural effusion or pneumothorax. The mediastinum is unremarkable. IMPRESSION: No acute cardiopulmonary abnormality COPD Dictated by: Dictated on workstation # [id number]
[2020-08-19] MEDS ORDERED: PRD50T PO ×2 (09:33→10:28)
[2020-08-19 10:27] VITALS: BP 153/93
== END 2020-08-19 10:27 | disposition home or self-care (01) ==
LOC: EDUNIT# 07:55 → ER 07:57
DX: J44.1 Chronic obstructive pulmonary disease with (acute) exacerbation (principal); I25.2 Old myocardial infarction; I10 Essential (primary) hypertension; E78.00 Pure hypercholesterolemia, unspecified; I25.10 Atherosclerotic heart disease of native coronary artery without angina pectoris; G89.29 Other chronic pain; M54.9 Dorsalgia, unspecified; Z87.891 Personal history of nicotine dependence; Z79.82 Long term (current) use of aspirin; Z79.899 Other long term (current) drug therapy; Z79.52 Long term (current) use of systemic steroids; Z79.891 Long term (current) use of opiate analgesic
CPT/HCPCS: 36415; 71045; 80048; 85025; 93005; 94640

== ENCOUNTER 2021-09-06 07:50 | Inpatient (IN) | payer MEDICARE ==
[~2021-09-06] VITALS: Ht 180 cm; Wt 82.2 kg
[~2021-09-06 07:50] MED LIST changes: +CYCL10TA25 PO; -CYCL10TA9 PO; +PRD50T PO
[2021-09-06 08:19] LABS: BASOPHILS # (AUTO) 0.1 10^3/uL (0.0-0.1); BASOPHILS % (AUTO) 1 % (0-10); EOSINOPHILS # (AUTO) 0.4 10^3/uL (0.0-0.3); EOSINOPHILS % (AUTO) 3 % (0-10); HEMATOCRIT 36 % (40-54); HEMOGLOBIN 12.3 g/dL (13.3-17.7); LYMPHOCYTES # (AUTO) 1.6 10^3/uL (1.0-4.0); LYMPHOCYTES % (AUTO) 15 % (12-44); MEAN CORPUSCULAR HEMOGLOBIN 36 pg (25-34); MEAN CORPUSCULAR HGB CONC 34 g/dL (32-36); MEAN CORPUSCULAR VOLUME 106 fL (80-99); MEAN PLATELET VOLUME 9.2 fL (9.0-12.2); MONOCYTES # (AUTO) 1.6 10^3/uL (0.0-1.0); MONOCYTES % (AUTO) 15 % (0-12); NEUTROPHILS % (AUTO) 66 % (42-75); PLATELET COUNT 211 10^3/uL (130-400); WHITE BLOOD COUNT 10.6 10^3/uL (4.3-11.0)
--- NOTE | 2021-09-06 08:29 | ED Cardiac General ---
History of Present Illness General Chief Complaint: Chest Pain Stated Complaint: CHEST PAIN Nursing Triage Note: PT ARRIVED PER EMS, PT CO OF CHEST PAIN 8/10 STARTED APPROX 1 HOUR AGO. PT HAS HAD TOTAL OF 3 NITRO, 25MG CARDIZEM IV, 325 ASA, AND 100MCG FENTANYL PER EMS. PT RATES PAIN 4/10 AT THIS X. PT HAS SL IN L WRIST #22 BY EMS, PT WEARS O2 AT HOME. PT IS A CURRENT 8-15BEER DRINKER/DAY. PT STATES FELL 2 DAYS AGO AND HAS SWOLLEN L ELBOW AND ABRASIONS AND BRUISING ON L SIDE OF FACE. Source: patient (POOR / LIMITED HISTORIAN), EMS History of Present Illness Date Seen by Provider: Sep 06, 2021 Time Seen by Provider: 07:51 Initial Comments PT ARRIVES VIA [facility] FROM HOME STATES ABOUT AN HOUR AGO, CHEST PAIN WOKE HIM UP. Allergies and Home Medications Allergies Coded Allergies: No Known Drug Allergies (Unverified , 12/12/17) Patient Home Medication List Albuterol Sulfate (Proair Hfa) 1 Puff Puff, 2 PUFF IH BID PRN for SHORTNESS OF BREATH, (Reported) Entered as Reported by: RAMON HATCH on 12/13/17 1128 Aspirin (Aspirin EC) 81 Mg Tablet.dr, 81 MG PO DAILY, (Reported) Entered as Reported by: RAMON HATCH on 12/13/17 1052 Cyclobenzaprine HCl (Cyclobenzaprine HCl) 10 Mg Tablet, 10 MG PO Q8HR Prescribed by: PEPITO PIERRE on 12/17/17 1013 Docusate Sodium (Colace) 100 Mg Capsule, 100 MG PO BID Prescribed by: PEPITO PIERRE on 12/17/17 1013 Gabapentin (Gabapentin) 300 Mg Capsule, 1,500 MG PO HS, (Reported) Entered as Reported by: RAMON HATCH on 12/13/17 1128 Hydrocodone Bit/Acetaminophen (Lortab 5 Mg Tablet) 1 Tab Tab, 1-2 TAB PO Q6HR PRN for PAIN-MODERATE Prescribed by: PEPITO PIERRE on 12/17/17 1013 Losartan Potassium (Losartan Potassium) 50 Mg Tablet, 50 MG PO DAILY, (Reported) Entered as Reported by: RAMON HATCH on 12/13/17 1052 Multivitamin (Multivitamins) 1 Each Tablet, 1 TAB PO DAILY, (Reported) Entered as Reported by: RAMON HATCH on 12/13/17 1052 Prednisone (Prednisone) 50 Mg Tab, 50 MG PO DAILY Prescribed by: CRISTO HARVEY on 08/19/20 1028 Sildenafil Citrate (Sildenafil) 20 Mg Tablet, 20 MG PO, (Reported) Entered as Reported by: FLORECITA ARAGON on 08/16/19 0247 Sildenafil Citrate (Sildenafil Citrate) 25 Mg Tablet, Unknown Dose PO, (Reported) Entered as Reported by: FLORECITA ARAGON on 08/16/19 0247 Simvastatin (Simvastatin) 40 Mg Tablet, 20 MG PO HS, (Reported) Entered as Reported by: RAMON HATCH on 12/13/17 1128 Tamsulosin HCl (Flomax) 0.4 Mg Cap, 0.4 MG PO HS, (Reported) Entered as Reported by: RAMON HATCH on 12/13/17 1128 Past Nwbtadb-Ppnvzw-Zydjrz Hx Immunizations Up To Date Tetanus Booster (TDap): Unknown Seasonal Allergies Seasonal Allergies: No Past Medical History Surgeries: Yes (CABG,PANCREAS SURGERY,VASECTOMY, STENTS) Abdominal, Cardiac, CABG, Coronary Stent, Vasectomy Respiratory: Yes COPD, Emphysema Currently Using CPAP: No Currently Using BIPAP: No Cardiac: Yes Coronary Artery Disease, Heart Attack, High Cholesterol, Hypertension Neurological: No Reproductive Disorders: No Genitourinary: No Gastrointestinal: Yes Gastroesophageal Reflux, Esophageal Varices, Irritable Bowel Musculoskeletal: Yes (CHRONIC NECK AND BACK PAIN ) Degenerate Disk Disease, Chronic Back Pain, Fractures Endocrine: No HEENT: Yes Loss of Vision: Denies Hearing Impairment: Denies Cancer: No Psychosocial: Yes Anxiety, Depression Integumentary: No Blood Disorders: No Family Medical History No Pertinent Family Hx Physical Exam Vital Signs Vital Signs - First Documented 09/06/21 07:50 Temp 36.1 Pulse 111 Resp 20 B/P (MAP) 138/85 (102) Pulse Ox 94 O2 Delivery Nasal Cannula O2 Flow Rate 2.00 Capillary Refill : Less Than 3 Seconds Height, Weight, BMI Height: 5'11.00" Weight: 176lbs. 1.6oz. 79.248875do; 32.00 BMI Method: Focused Exam Lactate Level 09/06/21 08:04: Lactic Acid Level 2.45*H Lactic Acid Level Laboratory Tests Test 09/06/21 08:04 Lactic Acid Level 2.45 MMOL/L (0.50-2.00) *H Progress/Results/Core Measures Results/Orders Lab Results Laboratory Tests Test 09/06/21 08:04 Range/Units White Blood Count 10.6 4.3-11.0 10^3/uL Red Blood Count 3.40 L 4.30-5.52 10^6/uL Hemoglobin 12.3 L 13.3-17.7 g/dL Hematocrit 36 L 40-54 % Mean Corpuscular Volume 106 H 80-99 fL Mean Corpuscular Hemoglobin 36 H 25-34 pg Mean Corpuscular Hemoglobin Concent 34 32-36 g/dL Red Cell Distribution Width 13.2 10.0-14.5 % Platelet Count 211 130-400 10^3/uL Mean Platelet Volume 9.2 9.0-12.2 fL Immature Granulocyte % (Auto) 1 % Neutrophils (%) (Auto) 66 42-75 % Lymphocytes (%) (Auto) 15 12-44 % Monocytes (%) (Auto) 15 H 0-12 % Eosinophils (%) (Auto) 3 0-10 % Basophils (%) (Auto) 1 0-10 % Neutrophils # (Auto) 7.0 1.8-7.8 10^3/uL Lymphocytes # (Auto) 1.6 1.0-4.0 10^3/uL Monocytes # (Auto) 1.6 H 0.0-1.0 10^3/uL Eosinophils # (Auto) 0.4 H 0.0-0.3 10^3/uL Basophils # (Auto) 0.1 0.0-0.1 10^3/uL Immature Granulocyte # (Auto) 0.1 0.0-0.1 10^3/uL Erythrocyte Sedimentation Rate 48 H 0-30 MM/HR Prothrombin Time 12.4 12.2-14.7 SEC INR Comment 0.9 0.8-1.4 Activated Partial Thromboplast Time 27 24-35 SEC D-Dimer 1.58 H 0.00-0.49 UG/ML Sodium Level 134 L 135-145 MMOL/L Potassium Level 3.3 L 3.6-5.0 MMOL/L Chloride Level 93 L 98-107 MMOL/L Carbon Dioxide Level 25 21-32 MMOL/L Anion Gap 16 H 5-14 MMOL/L Blood Urea Nitrogen 6 L 7-18 MG/DL Creatinine 0.71 0.60-1.30 MG/DL Estimat Glomerular Filtration Rate 99 BUN/Creatinine Ratio 8 Glucose Level 111 H 70-105 MG/DL Lactic Acid Level 2.45 *H 0.50-2.00 MMOL/L Calcium Level 8.9 8.5-10.1 MG/DL Corrected Calcium 9.2 8.5-10.1 MG/DL Magnesium Level 2.0 1.6-2.4 MG/DL Total Bilirubin 0.6 0.1-1.0 MG/DL Aspartate Amino Transf (AST/SGOT) 23 5-34 U/L Alanine Aminotransferase (ALT/SGPT) 28 0-55 U/L Alkaline Phosphatase 72 40-136 U/L Total Creatine Kinase 109 30-200 U/L Creatine Kinase MB 4.2 <6.6 NG/ML Myoglobin 145.7 H 10.0-92.0 NG/ML Troponin I < 0.028 <0.028 NG/ML C-Reactive Protein High Sensitivity 8.29 H 0.00-0.50 MG/DL B-Type Natriuretic Peptide 282.5 H <100.0 PG/ML Total Protein 6.7 6.4-8.2 GM/DL Albumin 3.6 3.2-4.5 GM/DL Amylase Level 26 25-125 U/L Lipase 10 8-78 U/L Procalcitonin 0.38 H <0.10 NG/ML TSH [place] Testing 5.56 H 0.35-4.94 UIU/ML Serum Alcohol 75 H <10 MG/DL Influenza Type A (RT-PCR) Not Detected Not Detecte Influenza Type B (RT-PCR) Not Detected Not Detecte SARS-CoV-2 RNA (RT-PCR) Not Detected Not Detecte My Orders Orders - MICHELLE MACHADO DO Ed Iv/Invasive Line Start (09/06/21 07:58) Ekg Tracing (09/06/21 07:58) O2 (09/06/21 07:58) Monitor-Rhythm Ecg Trace Only (09/06/21 07:58) Alcohol (09/06/21 07:58) Amylase (09/06/21 07:58) Bnp Cleo (09/06/21 07:58) Cbc With Automated Diff (09/06/21 07:58) Comprehensive Metabolic Panel (09/06/21 07:58) Creatine Kinase (09/06/21 07:58) Creatine Kinase Mb (09/06/21 07:58) Hs C Reactive Protein (09/06/21 07:58) Fibrin Degradation Products (09/06/21 07:58) Drug Screen Stat (Urine) (09/06/21 07:58) Lipase (09/06/21 07:58) Magnesium (09/06/21 07:58) Protime With Inr (09/06/21 07:58) Partial Thromboplastin Time (09/06/21 07:58) Thyroid Analyzer (09/06/21 07:58) Ua Culture If Indicated (09/06/21 07:58) Erythrocyte Sedimentation Rate (09/06/21 07:58) Myoglobin Serum (09/06/21 07:58) Troponin I Cleo (09/06/21 07:58) Chest 1 View, Ap/Pa Only (09/06/21 07:58) Covid 19 Inhouse Test (09/06/21 07:58) Influenza A And B By Pcr (09/06/21 07:58) Isolation Central Supply Req (09/06/21 07:58) Elbow, Left, 3 Views (09/06/21 07:58) Lactic Acid Analyzer (09/06/21 07:58) Procalcitonin (Pct) (09/06/21 07:58) Ct Head/Cervical Spine Wo (09/06/21 08:04) Ed Iv/Invasive Line Start (09/06/21 08:54) Ns Iv 1000 Ml (Sodium Chloride 0.9%) (09/06/21 09:00) Cefazolin Injection (Ancef Injection) (09/06/21 09:00) Ct Angio Chest W (09/06/21 08:55) Iohexol Injection (Omnipaque 350 Mg/Ml 1 (09/06/21 09:00) Received Contrast (Hold Metformin- Contr (09/06/21 09:00) Sodium Chloride Flush (Catheter Flush Sy (09/06/21 09:00) Ns (Ivpb) (Sodium Chloride 0.9% Ivpb Bag (09/06/21 09:00) Free T4 (Free Thyroxine) (09/06/21 08:04) Fentanyl Inj (Sublimaze Injection) (09/06/21 09:30) Blood Culture (09/06/21 09:27) Medications Given in ED Current Medications Medications Dose Ordered Sig/Talon Route Start Time Stop Time Status Last Admin Dose Admin Cefazolin Sodium 1000 mg/Sodium Chloride 50 ml @ 100 mls/hr ONCE ONCE IV 09/06/21 09:00 09/06/21 09:29 DC 09/06/21 09:36 100 MLS/HR Fentanyl Citrate 50 mcg ONCE ONCE IVP 09/06/21 09:30 09/06/21 09:31 DC 09/06/21 09:34 50 MCG Iohexol 100 ml ONCE ONCE IV 09/06/21 09:00 09/06/21 09:01 DC 09/06/21 09:25 69 ML Sodium Chloride 10 ml NEEDED PRN IV 09/06/21 09:00 09/06/21 09:25 10 ML Sodium Chloride 100 ml ONCE ONCE IV 09/06/21 09:00 09/06/21 09:01 DC 09/06/21 09:25 80 ML Vital Signs/I&O 09/06/21 09/06/21 07:50 07:50 Temp 36.1 Pulse 111 Resp 20 B/P (MAP) 138/85 (102) Pulse Ox 94 96 O2 Delivery Nasal Cannula Nasal Cannula O2 Flow Rate 2.00 2.00 Blood Pressure Mean: 102 Diagnostic Imaging Comments XRAYS--PER RADIOLOGIST REPORTS AT 0853 CXR: FINDINGS: Surgical findings again noted in the mediastinum with old right clavicle fracture. There is air trapping and mildly prominent interstitial markings. There is no evidence of pneumothorax, consolidation or definite pleural fluid. IMPRESSION: Chronic findings of background emphysema. Otherwise, no definite acute abnormality or adverse change is identified. LEFT ELBOW: FINDINGS AND IMPRESSION: 1: There is no acute fracture or dislocation seen on exam. There is slight elevation of the anterior fat pad which may represent a small elbow effusion. If there is continued clinical concern for fracture, follow-up imaging in 10-14 days is suggested. 2: There is soft tissue swelling posterior to the olecranon process. This may be related to swelling if there is history of recent trauma. If this finding is chronic, then bursitis may be considered. 3: There are degenerative spurs involving the medial elbow joint region and proximal radial head region. CT HEAD/CERVICAL SPINE--PER RADIOLOGIST REPORT AT 0934 CT HEAD: The ventricles and sulci are prominent consistent with cerebral volume loss. No sulcal effacement or midline shift is identified. No acute intra-axial or extra-axial hemorrhage is detected. 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 Cisterns are patent. Visualized paranasal sinuses are clear. IMPRESSION: Chronic changes. No acute intracranial process is detected. CT CERVICAL SPINE: Curvature and alignment of the cervical spine is normal. There is multilevel degenerative disc disease with variable disc space narrowing and marginal spurring. No fractures are identified. Prevertebral tissues are within normal limits. Odontoid is intact. IMPRESSION: Cervical spondylosis. No acute bony abnormality is detected. CT CHEST ANGIOGRAM--PER RADIOLOGIST REPORT AT 1003: FINDINGS: No abnormal intraluminal filling defects are seen within the pulmonary arteries to the 1st subsegmental division. Thoracic aorta is suboptimally evaluated due to suboptimal opacification by contrast bolus. Note is made of aneurysmal dilatation of the ascending thoracic aortic, as it measures 4.1 cm in diameter. There is also mild scattered calcified aortic atherosclerosis. By NASCET criteria, there is no convincing evidence of focal significant stenosis. Dissection is difficult to exclude. Heart size is within normal limits. There is no large pericardial effusion. Extensive calcified coronary atherosclerosis is present. No pathologically enlarged or morphologically abnormal adenopathy is seen within the mediastinum, ted, nor axilla. Lungs are clear. There is mild scarring and/or atelectasis within the posterior left base. Note is also made of background moderate centrilobular emphysematous changes. No large effusion or pneumothorax is seen. No suspicious pulmonary nodule or mass is identified. Osseous structures show age-related degenerative changes. No acute bony abnormality is seen. Sternotomy wires are noted. Included portions of the upper abdomen show colonic diverticulosis, but no additional acute abnormalities. IMPRESSION: 1. No pulmonary embolus. 2. Mild aneurysmal dilatation of the thoracic aorta. Otherwise, aorta is suboptimally evaluated due to poor opacification by the contrast bolus. 3. No other acute cardiopulmonary process. 4. Advanced calcified coronary atherosclerosis. 5. Moderate emphysematous changes. Reviewed: Reviewed by Me Departure Impression Primary Impression: Chest pain Additional Impressions: HX OF CAD WITH CABG AND STENTS Alcoholism Cellulitis of left elbow Departure-Patient Inst. Referrals: NO,LOCAL PHYSICIAN (PCP/Family) Primary Care Physician MICHELLE MACHADO DO Sep 06, 2021 08:29
[2021-09-06 08:40] LABS: ALBUMIN 3.6 GM/DL (3.2-4.5); CHLORIDE 93 MMOL/L (98-107); POTASSIUM 3.3 MMOL/L (3.6-5.0); SODIUM 134 MMOL/L (135-145)
[2021-09-06 08:41] LABS: AMYLASE 26 U/L (25-125); CALCIUM 8.9 MG/DL (8.5-10.1)
[2021-09-06 08:42] LABS: GLUCOSE 111 MG/DL (70-105); TOTAL PROTEIN 6.7 GM/DL (6.4-8.2)
[2021-09-06 08:43] LABS: CARBON DIOXIDE 25 MMOL/L (21-32)
[2021-09-06 08:44] LABS: BILIRUBIN,TOTAL 0.6 MG/DL (0.1-1.0)
[2021-09-06 08:46] LABS: ALKALINE PHOSPHATASE 72 U/L (40-136); CREATININE SERUM 0.71 MG/DL (0.60-1.30); GFR ESTIMATED 99
[2021-09-06 08:47] LABS: BUN/CREATININE RATIO 8
[2021-09-06 08:49] LABS: ALANINE AMINOTRANSFERASE 28 U/L (0-55)
--- NOTE | 2021-09-06 08:49 | Diagnostic Imaging Report ---
INDICATION: Chest pain. Single AP view of the chest is obtained with comparison made study of 08/19/2020. FINDINGS: Surgical findings again noted in the mediastinum with old right clavicle fracture. There is air trapping and mildly prominent interstitial markings. There is no evidence of pneumothorax, consolidation or definite pleural fluid. IMPRESSION: Chronic findings of background emphysema. Otherwise, no definite acute abnormality or adverse change is identified. Dictated by: Dictated on workstation # [id number]
[2021-09-06 08:50] LABS: CREATINE KINASE 109 U/L (30-200); LIPASE 10 U/L (8-78)
--- NOTE | 2021-09-06 08:51 | Diagnostic Imaging Report ---
CLINICAL INDICATION: Patient with elbow pain. EXAM: X-ray of the left elbow, 3 views. COMPARISON: None. FINDINGS AND IMPRESSION: 1: There is no acute fracture or dislocation seen on exam. There is slight elevation of the anterior fat pad which may represent a small elbow effusion. If there is continued clinical concern for fracture, follow-up imaging in 10-14 days is suggested. 2: There is soft tissue swelling posterior to the olecranon process. This may be related to swelling if there is history of recent trauma. If this finding is chronic, then bursitis may be considered. 3: There are degenerative spurs involving the medial elbow joint region and proximal radial head region. Dictated by: Dictated on workstation # [id number]
[2021-09-06 08:52] LABS: FIBRIN DEGRADATION PRODUCTS 1.58 UG/ML (0.00-0.49); INR 0.9 (0.8-1.4); PROTHROMBIN TIME PATIENT 12.4 SEC (12.2-14.7)
[2021-09-06 08:53] LABS: ERYTHROCYTE SEDIMENTATION RATE 48 MM/HR (0-30)
[2021-09-06 08:57] LABS: CREATINE KINASE MB 4.2 NG/ML (<6.6)
[2021-09-06] MEDS ORDERED: CATHETER FLUSH 10 ML SYR IV PRN (09:00)
[2021-09-06] MEDS ORDERED: IOHEXOL 350 MG/ML 100 ML (OMNIPAQUE 350) VIAL IV ONE (09:00)
[2021-09-06] MEDS ORDERED: ceFAZolin INJECTION 1,000 MG in NS (IVPB) 50 ML IV ONE (09:00)
[2021-09-06] MEDS ORDERED: HOLD METFORMIN - RECEIVED CONTRAST 20 ML VIAL IV SCH (09:00)
[2021-09-06] MEDS ORDERED: NS 100 ML (IVPB) BAG IV ONE (09:00)
[2021-09-06 09:10] LABS: TSH (THYROID ANALYZER) 5.56 UIU/ML (0.35-4.94)
[2021-09-06] MEDS: NS IV 1000 ML 1,000 ML IV SCH ×3 (09:28→20:30)
[2021-09-06] MEDS ORDERED: fentaNYL INJ 100 MCG/2 ML AMP IVP ONE (09:30)
--- NOTE | 2021-09-06 09:32 | Diagnostic Imaging Report ---
PROCEDURE: CT head and CT cervical spine without contrast. TECHNIQUE: Multiple contiguous axial images were obtained through the brain and cervical spine without the use of intravenous contrast. Sagittal and coronal reformations through the cervical spine were then performed. Auto Exposure Controls were utilized during the CT exam to meet ALARA standards for radiation dose reduction. INDICATION: Fall with head and neck injury. Comparison is made with prior CT from 12/12/2017. CT HEAD: The ventricles and sulci are prominent consistent with cerebral volume loss. No sulcal effacement or midline shift is identified. No acute intra-axial or extra-axial hemorrhage is detected. 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 Cisterns are patent. Visualized paranasal sinuses are clear. IMPRESSION: Chronic changes. No acute intracranial process is detected. CT CERVICAL SPINE: Curvature and alignment of the cervical spine is normal. There is multilevel degenerative disc disease with variable disc space narrowing and marginal spurring. No fractures are identified. Prevertebral tissues are within normal limits. Odontoid is intact. IMPRESSION: Cervical spondylosis. No acute bony abnormality is detected. Dictated by: Dictated on workstation # [id number]
--- NOTE | 2021-09-06 09:46 | Diagnostic Imaging Report ---
PROCEDURE: CT angiography of the chest with contrast. TECHNIQUE: Multiple contiguous axial images were obtained through the chest after uneventful bolus administration of intravenous contrast. 3D reconstructed CTA MIP acquisitions were also performed. Auto Exposure Controls were utilized during the CT exam to meet ALARA standards for radiation dose reduction. INDICATION: Recent fall. Chest pain. Bruising. COMPARISON: CT chest dated 10/17/2019. FINDINGS: No abnormal intraluminal filling defects are seen within the pulmonary arteries to the 1st subsegmental division. Thoracic aorta is suboptimally evaluated due to suboptimal opacification by contrast bolus. Note is made of aneurysmal dilatation of the ascending thoracic aortic, as it measures 4.1 cm in diameter. There is also mild scattered calcified aortic atherosclerosis. By NASCET criteria, there is no convincing evidence of focal significant stenosis. Dissection is difficult to exclude. Heart size is within normal limits. There is no large pericardial effusion. Extensive calcified coronary atherosclerosis is present. No pathologically enlarged or morphologically abnormal adenopathy is seen within the mediastinum, ted, nor axilla. Lungs are clear. There is mild scarring and/or atelectasis within the posterior left base. Note is also made of background moderate centrilobular emphysematous changes. No large effusion or pneumothorax is seen. No suspicious pulmonary nodule or mass is identified. Osseous structures show age-related degenerative changes. No acute bony abnormality is seen. Sternotomy wires are noted. Included portions of the upper abdomen show colonic diverticulosis, but no additional acute abnormalities. IMPRESSION: 1. No pulmonary embolus. 2. Mild aneurysmal dilatation of the thoracic aorta. Otherwise, aorta is suboptimally evaluated due to poor opacification by the contrast bolus. 3. No other acute cardiopulmonary process. 4. Advanced calcified coronary atherosclerosis. 5. Moderate emphysematous changes. Dictated by: Dictated on workstation # [id number]
[2021-09-06] MEDS ORDERED: fentaNYL INJ 100 MCG/2 ML AMP IVP STA ×2 (10:04→15:10)
[2021-09-06] MEDS ORDERED: NITROGLYCERIN 2% OINT 1 GM UNIT DOSE PACKET TOP STA (10:08)
[2021-09-06] MEDS ORDERED: ENOXAPARIN 80 MG/0.8 ML (LOVENOX) SYR SC ONE (10:15)
[2021-09-06] MEDS ORDERED: dilTIAZem DRIP PRE-MIX 125 ML IV SCH (10:15)
[2021-09-06] MEDS ORDERED: LORazepam INJ 2 MG/ML (ATIVAN) VIAL IVP ONE (10:30)
[2021-09-06] MEDS ORDERED: D5 1/2 NS W/KCL 20 MEQ/L 1,000 ML IV SCH (10:30)
--- NOTE | 2021-09-06 10:55 | Diagnostic Imaging Report ---
INDICATION: Pain. Three views were obtained. FINDINGS: The left humerus is intact. There is no fracture or dislocation. There are some degenerative changes in the shoulder. Left lung is clear. IMPRESSION: Degenerative changes in the shoulder, however, no acute fracture. Dictated by: Dictated on workstation # [id number]
--- NOTE | 2021-09-06 10:55 | Diagnostic Imaging Report ---
INDICATION: Shoulder pain. 3 views were obtained. FINDINGS: The alignment is normal. There are mild degenerative changes. No fracture or dislocation. Left lung is clear. IMPRESSION: Mild degenerative changes, otherwise unremarkable. Dictated by: Dictated on workstation # [id number]
[2021-09-06] MEDS: ASPIRIN E.C. 81 MG (ECOTRIN) TAB PO SCH (10:59)
[2021-09-06] MEDS ORDERED: KCL 20 MEQ TAB (K-DUR) PO NR ×2 (11:00→17:30)
[2021-09-06] MEDS ORDERED: THIAMINE INJECTION 100 MG, FOLIC ACID INJECTION 1 MG, VITAMIN MULTI INJECTION 10 ML, MA... IV SCH ×5 (11:15)
[2021-09-06] MEDS ORDERED: meTOprolol 5 MG/5 ML (LOPRESSOR) VIAL ONE (11:19)
[2021-09-06] MEDS ORDERED: meTOprolol 5 MG/5 ML (LOPRESSOR) VIAL IV ONE (11:30)
--- NOTE | 2021-09-06 11:46 | Consultation-Cardiology ---
HPI-Cardiology Cardiology Consultation Date of Consultation 09/06/21 Date of Admission Time Seen by Provider: 10:50 Indication: Chest pain HPI Patient is a 70 y/o male with history of CAD, HTN, HLP. Presented to the ER with complaints of intermitted chest pain for the past 2 days. Associated dyspnea and dizziness. Patient reports he had cardiac stenting done approx 1-2 months ago. Noted to be in Afib with RVR on arrival. Denies any previous history of afib. Patient states he started drinking again recently and been drinking approx 12 beers daily for the past month. Home Medications & Allergies Allergies: Coded Allergies: No Known Drug Allergies (Unverified , 12/12/17) Home Medication List Reviewed: Yes OGR-Nxkasw-Dtocab Hx Patient Social History Marital Status: single Drug of Choice: denies Smoking Status: Former Smoker Type Used: Cigarettes 2nd Hand Smoke Exposure: No Recent Hopitalizations: No Have you traveled recently?: No Alcohol Use?: Yes Substance type: Marijuana Immunizations Up To Date Tetanus Booster (TDap): Unknown Date of Pneumonia Vaccine: Aug 15, 2016 Past Medical History CAD, HTN, HLP Family Medical History Significant Family History: No Pertinent Family Hx Review of Systems-General Review of Systems Constitutional: see HPI, dizziness; No fever; malaise; No weakness EENTM: see HPI, no symptoms reported; No blurred vision, No double vision Respiratory: see HPI; No cough; dyspnea on exertion, short of breath Cardiovascular: see HPI, chest pain, edema, Hx of Intervention, palpitations; No syncope; vascular heart diseas Gastrointestinal: no symptoms reported; No abdominal pain Genitourinary: no symptoms reported Skin: see HPI Reviewed Test Results Reviewed Test Results Lab Laboratory Tests 09/06/21 08:04: White Blood Count 10.6, Red Blood Count 3.40L, Hemoglobin 12.3L, Hematocrit 36L, Mean Corpuscular Volume 106H, Mean Corpuscular Hemoglobin 36H, Mean Corpuscular Hemoglobin Concent 34, Red Cell Distribution Width 13.2, Platelet Count 211, Mean Platelet Volume 9.2, Immature Granulocyte % (Auto) 1, Neutrophils (%) (Auto) 66, Lymphocytes (%) (Auto) 15, Monocytes (%) (Auto) 15H, Eosinophils (%) (Auto) 3, Basophils (%) (Auto) 1, Neutrophils # (Auto) 7.0, Lymphocytes # (Auto) 1.6, Monocytes # (Auto) 1.6H, Eosinophils # (Auto) 0.4H, Basophils # (Auto) 0.1, Immature Granulocyte # (Auto) 0.1, Erythrocyte Sedimentation Rate 48H, Prothrombin Time 12.4, INR Comment 0.9, Activated Partial Thromboplast Time 27, D-Dimer 1.58H, Sodium Level 134L, Potassium Level 3.3L, Chloride Level 93L, Carbon Dioxide Level 25, Anion Gap 16H, Blood Urea Nitrogen 6L, Creatinine 0.71, Estimat Glomerular Filtration Rate 99, BUN/Creatinine Ratio 8, Glucose Level 111H, Lactic Acid Level 2.45*H, Calcium Level 8.9, Corrected Calcium 9.2, Magnesium Level 2.0, Total Bilirubin 0.6, Aspartate Amino Transf (AST/SGOT) 23, Alanine Aminotransferase (ALT/SGPT) 28, Alkaline Phosphatase 72, Total Creatine Kinase 109, Creatine Kinase MB 4.2, Myoglobin 145.7H, Troponin I < 0.028, C- Reactive Protein High Sensitivity 8.29H, B-Type Natriuretic Peptide 282.5H, Total Protein 6.7, Albumin 3.6, Amylase Level 26, Lipase 10, Procalcitonin 0.38H , Free Thyroxine 1.00, TSH [place] Testing 5.56H, Serum Alcohol 75H, Influenza Type A (RT-PCR) Not Detected, Influenza Type B (RT-PCR) Not Detected, SARS-CoV-2 RNA (RT-PCR) Not Detected 09/06/21 11:42: ECG Impression ECG Initial ECG Impression: Atrial Fibrillation w/RVR Physical Exam Physical Exam Vital Signs Vital Signs - First Documented 09/06/21 07:50 Temp 36.1 Pulse 111 Resp 20 B/P (MAP) 138/85 (102) Pulse Ox 94 O2 Delivery Nasal Cannula O2 Flow Rate 2.00 Capillary Refill : Less Than 3 Seconds Height, Weight, BMI Height: 5'11.00" Weight: 176lbs. 1.6oz. 79.956724oo; 24.00 BMI Method: General Appearance: No Apparent Distress, WD/WN HEENT: PERRL/EOMI, Normal ENT Inspection Neck: Non Tender, Supple Respiratory: Chest Non Tender, Lungs Clear, No Respiratory Distress Cardiovascular: Irregularly Irregular, Tachycardia Gastrointestinal: Non Tender, Soft Back: No CVA Tenderness Extremity: Pedal Edema Neurologic/Psychiatric: Alert, Oriented x3, juice bar team member II-XII Norm as Tested A/P-Cardiology Admission Diagnosis Chest pain NSTEMI CAD AFib with RVR Assessment/Plan Chest pain, Non-ST elevation myocardial infarction, mild elevation in troponin, likely type II [place], will continue with serial troponin, continue to monitor. Continue to monitor for now, monitor trend. Patient reporting that he had a stent placed recently. Restart aspirin and Plavix Afib with RVR-started on Cardizem gtt, Lopressor, Eliquis. Continue on telemetry, evaluate 2D Echo. 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 [id number] score 4, currently on Lovenox, planning to switch him to Eliquis and monitor tolerance and response Coronary artery disease, history of CABG 3 done in 2003 in [place]. Reports underwent recent LHC and stenting approx 2 months ago. I will restart ASA and Plavix. Hypertension, restart home medication monitor blood pressure Hyperlipidemia, evaluate lipids. Hypokalemia, replace and continue to monitor. Hypothyroidism COPD ExTobaccoism, chewing tobacco ETOH use, reports he recently starting drinking again. Drinks approx 12 beers daily for the last month. Recent fall 2 days ago with left arm/shoulder pain, no acute fracture. Thank you for allowing us to participate in the management of Mr. Fairbanks. This is Nia Cannon PA-C, as a scribe for Dr. York. Patient was seen and evaluated with Nia, I interviewed and examined the patient myself. Discussed the management plan with Nia and agree with the current scribed note. Patient was laying down in bed, having left arm pain due to the trauma to his left arm, there is some swelling and erythema. He is in atrial fibrillation with rate is better controlled I am planning to switch him to oral Cardizem and metoprolol, continue on aspirin and Plavix Will need to be on oral anticoagulation Monitor blood pressure and lipids Alcohol withdrawal precaution Clinical Quality Measures AMI/AHF: ASA po Prior to arrival: Yes NIA FORD Sep 06, 2021 11:46 TOM YORK MD Sep 06, 2021 12:17
[2021-09-06 11:47] LABS: BILIRUBIN,URINE NEGATIVE (NEGATIVE); CLARITY,URINE SL CLOUDY; COLOR,URINE YELLOW; GLUCOSE, URINE (UA) NEGATIVE (NEGATIVE); KETONES,URINE TRACE (NEGATIVE); LEUKOCYTE ESTERASE ,URINE NEGATIVE (NEGATIVE); NITRITE,URINE NEGATIVE (NEGATIVE); PH,URINE 7.5 (5-9); PROTEIN,URINE NEGATIVE (NEGATIVE)
[2021-09-06 11:59] LABS: AMPHETAMINE SCREEN, URINE NEGATIVE (NEGATIVE); BARBITURATE SCREEN URINE NEGATIVE (NEGATIVE); BENZODIAZEPINES SCREEN URINE NEGATIVE (NEGATIVE); CANNABINOID SCREEN, URINE NEGATIVE (NEGATIVE); COCAINE SCREEN URINE NEGATIVE (NEGATIVE); METHADONE STAT NEGATIVE (NEGATIVE); OPIATE SCREEN URINE POSITIVE (NEGATIVE); OXYCODONE STAT NEGATIVE (NEGATIVE); PROPOXYPHENE STAT NEGATIVE (NEGATIVE); TRICYCLIC ANTIDEPRESSANTS SCRE NEGATIVE (NEGATIVE)
[2021-09-06] MEDS: THIAMINE INJECTION 100 MG, FOLIC ACID INJECTION 1 MG, VITAMIN MULTI INJECTION 10 ML, MA... IV SCH ×5 (11:59)
[2021-09-06] MEDS ORDERED: ENOXAPARIN 100 MG/1 ML (LOVENOX) SYR SC SCH (12:00)
[2021-09-06] MEDS ORDERED: ceFAZolin INJECTION 1,000 MG VIAL IV ONE (12:00)
[2021-09-06] MEDS ORDERED: ENOXAPARIN 80 MG/0.8 ML (LOVENOX) SYR SC SCH ×2 (12:00→22:00)
[2021-09-06] MEDS: meTOprolol TARTRATE 25 MG (LOPRESSOR) TABLET PO SCH (12:11)
[2021-09-06 12:12] LABS: BACTERIA,URINE NEGATIVE /HPF
[2021-09-06] MEDS: CLOPIDOGREL 75 MG (PLAVIX) TABLET PO SCH (15:07)
[2021-09-06] MEDS ORDERED: RT-ALBUTEROL/IPRATROPIUM 3 ML (DUONEB) VIAL INH ONE (15:15)
--- NOTE | 2021-09-06 15:34 | History & Physical-Hospitalist ---
History of Present Illness HPI/Chief Complaint Patient is a 70-year-old male with past medical history of coronary artery disease status post CABG and subsequent stenting who presented to the emergency department due to acute onset chest pain. He states the chest pain woke him from sleep and he was diaphoretic and short of breath with this. He had shoulder pain but attributed it to a fall yesterday. He tried to wait it out to see if it got better but it continued to worsen prompting him to call EMS for evaluation. He was given nitro without any relief. The emergency department he was found to be in new onset atrial fibrillation with rapid ventr icular rate. He was given Cardizem and his rate improved. He does endorse a history of alcohol use drinking roughly 12 beers a day with his last drink being this morning. Source: patient Date Seen 09/06/21 Time Seen by a Provider: 15:22 Attending Physician No,Local Physician PCP Admitting Physician: Antoni Peraza MD Attending Physician: Antoni Peraza MD Referring Physician Date of Admission Sep 06, 2021 at 10:25 Home Medications & Allergies Home Medications Reviewed patient Home Medication Reconciliation performed by pharmacy medication reconciliations bioprocessing manufacturing technician and/or nursing. Patients Allergies have been reviewed. Allergies Allergies Coded Allergies No Known Drug Allergies ([id number]/2/18) Past Rgjizre-Pbvfbg-Dnvodv Hx Patient Social History Marrital Status: single Tobacco Use?: No Smoking Status: Former Smoker Substance use?: Yes Substance type: Marijuana Additional substance use comme: HX Alcohol Use?: Yes Alcohol type: Beer Additional alcohol type: BEER Alcohol Frequency: Daily Additional Alcohol Comments: 10/25DAILY Pt feels they are or have been: No Immunizations Up To Date First/Initial COVID19 Vaccinat: ONE DOSE Tetanus Booster (TDap): Unknown Date of Pneumonia Vaccine: Aug 15, 2016 Seasonal Allergies Seasonal Allergies: No Current Status Advance Directives: No Communicates: Verbally Primary Language: Qatari Preferred Spoken Language: Qatari Is interpretation needed?: No Implanted or Applied Medical D: Stents Past Medical History Surgeries: Abdominal, Cardiac, CABG, Coronary Stent, Vasectomy COPD, Emphysema Currently Using CPAP: No Currently Using BIPAP: No Coronary Artery Disease, Heart Attack, High Cholesterol, Hypertension Gastroesophageal Reflux, Esophageal Varices, Irritable Bowel Degenerate Disk Disease, Chronic Back Pain, Fractures Loss of Vision: Denies Hearing Impairment: Denies Anxiety, Depression Blood Disorders: No Family Medical History Reviewed Nursing Family Hx No Pertinent Family Hx Review of Systems Constitutional: No chills; diaphoresis; No fever EENTM: no symptoms reported Respiratory: No cough; short of breath Cardiovascular: chest pain Gastrointestinal: No abdominal pain, No constipation, No nausea, No vomiting Genitourinary: no symptoms reported Musculoskeletal: no symptoms reported Skin: no symptoms reported Psychiatric/Neurological: No Symptoms Reported Physical Exam Physical Exam Vital Signs Vital Signs - First Documented 09/06/21 07:50 Temp 36.1 Pulse 111 Resp 20 B/P (MAP) 138/85 (102) Pulse Ox 94 O2 Delivery Nasal Cannula O2 Flow Rate 2.00 Capillary Refill : Less Than 3 Seconds Height, Weight, BMI Height: 5'11.00" Weight: 176lbs. 1.6oz. 79.064207iu; 24.00 BMI Method: General Appearance: No Apparent Distress, WD/WN HEENT: PERRL/EOMI, Moist Mucous Membranes; No Scleral Icterus (L), No Scleral Icterus (R) Respiratory: Lungs Clear, No Accessory Muscle Use, No Respiratory Distress Cardiovascular: Regular Rate, Rhythm, No JVD, No Murmur Gastrointestinal: Normal Bowel Sounds, Non Tender, Soft Extremity: No Calf Tenderness, No Pedal Edema, Other (erythema and edema on left elbow with erythema wrapping circumferentailly around arm) Neurologic/Psychiatric: Alert, Oriented x3, Normal Mood/Affect Results Results/Procedures Labs Laboratory Tests 09/06/21 08:04 Patient resulted labs reviewed. Assessment/Plan Admission Diagnosis A fib wRVR Admission Status: Inpatient Order (span 2 midnights) Reason for Inpatient Admission: see below Assessment and Plan A fib w RVR CAD s/p CABG HTN HLD Admit to ICU for cardizem gtt Cardiology consulted, appreciate recs Echo Lovenox for stroke prophylaxix Cellulitis Falls No evidence of sepsis Continue abx PT/OT Alcohol abuse Previously quit 15 years ago but started drinking again 6 months ago Drinks 12 beers per day with last beer this AM High risk for alcohol withdrawal Clinical Quality Measures AMI/AHF: ASA po Prior to arrival: Yes ANTONI PERAZA MD Sep 06, 2021 15:34
[2021-09-06] MEDS ORDERED: CALCIUM CARBONATE 500 MG (TUMS) TAB.CHEW PO PRN (15:45)
[2021-09-06] MEDS ORDERED: ONDANSETRON 4 MG/2 ML (SDV) Z0FRAN IV PRN (15:45)
[2021-09-06] MEDS ORDERED: polyethylene glycoL POWDER 17 GM (MIRALAX) PACK PO PRN (15:45)
[2021-09-06] MEDS ORDERED: ANTACID SUSP 30 ML UDC (MYLANTA) PO PRN (15:45)
[2021-09-06] MEDS ORDERED: NS IV 1000 ML 1,000 ML IV SCH (15:45)
[2021-09-06] MEDS ORDERED: ACETAMINOPHEN 325 MG TABLET PO PRN (15:45)
[2021-09-06] MEDS: inSUlin ASPART (NovoLOG) 1 UNIT/0.01 ML (CHARGE PER UNIT) SC SCH ×2 (17:00→20:13)
--- NOTE | 2021-09-06 17:25 | Tele-ICU Consult ---
History of Present Illness History of Present Illness Date Seen by Provider: Sep 06, 2021 Time Seen by Provider: 17:25 Date of Admission (Tele-ICU Physician , consultation) Available chart/ vitals / labs / Images reviewed H&P is from ER notes Patient's information available about PMH, Shx, Fhx allergy reviewed in EMR. ROS as per chart and RN report Now in ICU, hemodynamically stable Video assessment done using teleICU camera, rest of exam as per RN Discussed with RN. Consultants: reji Hospital course: (09/06) 70y/o M admitted with chest pain, AFib & cellulitis of L elbow A/P A fib RVR - new onset - CTA neg for PE - cardizem grr as per cards -AC with lovenox now -replace K CAD , s/p CABG , and s/p with recent stents - ASA , lavix - cards follow COPD ( chronic hypoxic resp failure) emphysema on CT chest - reported on 2 l O2 at home - monitor , no sterods ( based on bedside RN exam - as per PCP Cellulitis of L elbow - cont ABX ETOH use - recently starting drinking - CIWA vitamins Lines : (Central Line Necessity Reviewed) Myers: OG: Nutrition: Analgesia: Anxiety/ delirium VTE Prophylaxis: tyree 4- Stress Ulcer Prophylaxis: Plans in collaboration with bedside consultants and IM MDs. Discussed with RN to reach out if any questions or concerns A total of 31 minutes of critical care time was devoted to this patient today, required to treat and/or prevent further deterioration of critical care condition ( as above ) . Reason for Visit: Chest pain Allergies and Home Medications Allergies Coded Allergies: No Known Drug Allergies (Unverified , 12/12/17) Home Medications Albuterol Sulfate 1 Puff Puff, 2 PUFF IH BID PRN for SHORTNESS OF BREATH, (Reported) 1 PUFF = 90 MCG Aspirin 81 Mg Tablet.dr, 81 MG PO DAILY, (Reported) Cyclobenzaprine HCl 10 Mg Tablet, 10 MG PO Q8HR Prescribed by: PEPITO PIERRE on 12/17/17 1013 Docusate Sodium 100 Mg Capsule, 100 MG PO BID Prescribed by: PEPITO PIERRE on 12/17/17 1013 Gabapentin 300 Mg Capsule, 1,500 MG PO HS, (Reported) TAKES 5 (300MG) CAPSULES Hydrocodone Bit/Acetaminophen 1 Tab Tab, 1-2 TAB PO Q6HR PRN for PAIN-MODERATE Prescribed by: PEPITO PIERRE on 12/17/17 1013 Losartan Potassium 50 Mg Tablet, 50 MG PO DAILY, (Reported) Multivitamin 1 Each Tablet, 1 TAB PO DAILY, (Reported) Prednisone 50 Mg Tab, 50 MG PO DAILY Prescribed by: CRISTO HARVEY on 08/19/20 1028 Simvastatin 40 Mg Tablet, 20 MG PO HS, (Reported) TAKES 1/2 (40MG) TABLET Tamsulosin HCl 0.4 Mg Cap, 0.4 MG PO HS, (Reported) Past Medical/Social/Family Hx Patient Social History Marrital Status: single Tobacco Use?: No Smoking Status: Former Smoker Use of E-Cig and/or Vaping dev: No Substance use?: No Substance type: Marijuana HX Alcohol Use?: No Alcohol type: Beer Additional alcohol type: BEER Alcohol Frequency: Daily 10/25DAILY Pt stated abuse/neglect: No Immunizations Up To Date First/Initial COVID19 Vaccinat: ONE DOSE Second COVID19 Vaccination Joseph: ONE DOSE Tetanus Booster (TDap): Unknown Date of Pneumonia Vaccine: Aug 15, 2016 Current Status Advance Directives: No Communicates: Verbally Primary Language: Beninese Preferred Spoken Language: Beninese Is interpretation needed?: No Implanted or Applied Medical D: Stents Review of Systems Constitutional: see HPI Focused Exam Lactate Level 09/06/21 08:04: Lactic Acid Level 2.45*H 09/06/21 16:30: Lactic Acid Level 1.19 Height, Weight, BMI Height: 5'11.00" Weight: 176lbs. 1.6oz. 79.532452gf; 24.07 BMI Method: Lactic Acid Level Laboratory Tests Test 09/06/21 16:30 Lactic Acid Level 1.19 MMOL/L (0.50-2.00) Exam Exam Patient acknowledged, consented, and participated in this virtual visit which was conducted using real time audio/video Vital Signs Date Time Temp Pulse Resp B/P (MAP) Pulse Ox O2 Delivery O2 Flow Rate FiO2 09/06/21 16:00 92 09/06/21 16:00 36.6 09/06/21 15:49 79 20 113/85 97 Nasal Cannula 2.00 2.00 09/06/21 15:28 98 Nasal Cannula 2.00 09/06/21 07:50 36.1 111 20 138/85 (102) 96 Nasal Cannula 2.00 09/06/21 07:50 94 Nasal Cannula 2.00 Height & Weight Height: 5'11.00" Weight: 176lbs. 1.6oz. 79.979864dj; 24.07 BMI Method: General Appearance: No Apparent Distress, WD/WN HEENT: PERRL/EOMI, Moist Mucous Membranes; No Scleral Icterus (L), No Scleral Icterus (R) Neck: Non Tender, Supple Respiratory: Lungs Clear, No Accessory Muscle Use, No Respiratory Distress Cardiovascular: Regular Rate, Rhythm, No JVD, No Murmur Capillary Refill: Less Than 3 Seconds Extremity: No Calf Tenderness, No Pedal Edema, Other (erythema and edema on left elbow with erythema wrapping circumferentailly around arm) Neurologic/Psychiatric: Alert, Oriented x3, Normal Mood/Affect Results Lab Laboratory Tests 09/06/21 08:04 Assessment/Plan Assessment/Plan 1 ROSE SU MD Sep 06, 2021 17:25
[2021-09-06] MEDS ORDERED: LORazepam INJ 2 MG/ML (ATIVAN) VIAL IV PRN (17:45)
[2021-09-06] MEDS ORDERED: LORazepam INJ 2 MG/ML (ATIVAN) VIAL IM/IV PRN (17:45)
[2021-09-06] MEDS: MELATONIN 3 MG TABLET PO PRN (20:29)
[2021-09-06] MEDS: ceFAZolin INJECTION 500 MG in NS (IVPB) 50 ML IV SCH (21:19)
[2021-09-06] MEDS ORDERED: HYDROcodone/APAP 5 MG/325 MG (LORTAB) TAB ONE (21:25)
[2021-09-06] MEDS: HYDROcodone/APAP 5 MG/325 MG (LORTAB) TAB PO PRN (21:26)
[2021-09-07] MEDS: HYDROcodone/APAP 5 MG/325 MG (LORTAB) TAB PO PRN ×6 (02:14→20:24)
[2021-09-07 05:16] LABS: HEMATOCRIT 30 % (40-54); HEMOGLOBIN 10.3 g/dL (13.3-17.7); MEAN CORPUSCULAR HEMOGLOBIN 36 pg (25-34); MEAN CORPUSCULAR HGB CONC 34 g/dL (32-36); MEAN CORPUSCULAR VOLUME 106 fL (80-99); MEAN PLATELET VOLUME 9.3 fL (9.0-12.2); PLATELET COUNT 204 10^3/uL (130-400); WHITE BLOOD COUNT 7.1 10^3/uL (4.3-11.0)
[2021-09-07 05:42] LABS: CALCIUM 8.3 MG/DL (8.5-10.1)
[2021-09-07 05:46] LABS: PHOSPHORUS 3.1 MG/DL (2.3-4.7)
[2021-09-07 05:47] LABS: CREATININE SERUM 0.65 MG/DL (0.60-1.30)
[2021-09-07] MEDS: POTASSIUM CL 10MEQ/50ML IVPB 50 ML IV SCH (05:48)
[2021-09-07 05:49] LABS: MAGNESIUM 2.3 MG/DL (1.6-2.4)
[2021-09-07] MEDS: KCL 20 MEQ TAB (K-DUR) PO SCH (05:49)
[2021-09-07] MEDS: inSUlin ASPART (NovoLOG) 1 UNIT/0.01 ML (CHARGE PER UNIT) SC SCH ×4 (05:49→20:10)
[2021-09-07] MEDS: MAGNESIUM 1 GM/100 ML IVPB 100 ML IV SCH (06:46)
[2021-09-07] MEDS: NS IV 1000 ML 1,000 ML IV SCH ×3 (06:48→23:30)
[2021-09-07] MEDS: ceFAZolin INJECTION 500 MG in NS (IVPB) 50 ML IV SCH ×3 (06:48→20:25)
[2021-09-07 07:28] VITALS: BP 151/86
[2021-09-07] MEDS: CLOPIDOGREL 75 MG (PLAVIX) TABLET PO SCH (08:00)
[2021-09-07] MEDS: meTOprolol TARTRATE 25 MG (LOPRESSOR) TABLET PO SCH ×2 (08:01→20:23)
[2021-09-07] MEDS: ASPIRIN E.C. 81 MG (ECOTRIN) TAB PO SCH (08:01)
[2021-09-07] MEDS: guaiFENesin (MUCINEX) 600 MG TAB PO SCH ×2 (08:01→20:23)
--- NOTE | 2021-09-07 08:15 | Tele-ICU Progress Note ---
Subjective Date Seen by a Provider: Sep 07, 2021 Time Seen by a Provider: 08:14 Subjective/Events-last exam Available chart/vitals/labs/images reviewed. Video assessment done using telemetry ICU camera, rest of exam as per RN. Discussion with the RN, exam as per RN. Hospital course Patient today denies any chest pain. Heart rate is controlled and his Cardizem IV discontinued currently he is on Lopressor on oral Cardizem which he is tolerating so far. No chest pain. Resting comfortably. Review of Systems pe per rn Sepsis Event Evaluation Height, Weight, BMI Height: 5'11.00" Weight: 176lbs. 1.6oz. 79.807978cq; 24.13 BMI Method: Focused Exam Lactate Level 09/06/21 08:04: Lactic Acid Level 2.45*H 09/06/21 16:30: Lactic Acid Level 1.19 Exam Exam Patient acknowledged, consented, and participated in this virtual visit which was conducted using real time audio/video Vital Signs Date Time Temp Pulse Resp B/P (MAP) Pulse Ox O2 Delivery O2 Flow Rate FiO2 09/07/21 06:28 68 09/07/21 06:00 67 153/84 99 Nasal Cannula 2.00 09/07/21 05:00 66 150/98 98 Nasal Cannula 2.00 09/07/21 04:00 36.1 09/07/21 04:00 66 141/89 98 Nasal Cannula 2.00 09/07/21 04:00 98 Nasal Cannula 2.00 09/07/21 03:00 68 148/86 97 Nasal Cannula 2.00 09/07/21 02:00 75 155/87 98 Nasal Cannula 2.00 09/07/21 01:00 64 09/07/21 01:00 64 130/83 97 Nasal Cannula 2.00 09/07/21 00:31 68 09/07/21 00:00 82 134/83 97 Nasal Cannula 2.00 09/06/21 23:59 99 Nasal Cannula 2.00 09/06/21 23:44 36.5 09/06/21 23:00 85 139/76 97 Nasal Cannula 2.00 09/06/21 22:44 93 121/75 96 Nasal Cannula 2.00 09/06/21 21:00 79 98 Nasal Cannula 2.00 09/06/21 20:00 95 97 Nasal Cannula 2.00 09/06/21 20:00 36.7 09/06/21 20:00 99 Nasal Cannula 2.00 09/06/21 19:37 79 115/76 96 Nasal Cannula 2.00 09/06/21 19:00 72 09/06/21 18:00 80 21 96/76 99 Nasal Cannula 2.00 09/06/21 17:00 80 21 96/76 99 Nasal Cannula 2.00 09/06/21 16:45 Nasal Cannula 2.00 09/06/21 16:00 92 09/06/21 16:00 106 20 113/85 98 Nasal Cannula 2.00 09/06/21 16:00 36.6 09/06/21 15:49 79 20 113/85 97 Nasal Cannula 2.00 2.00 09/06/21 15:28 98 Nasal Cannula 2.00 I & O 09/07/21 07:00 Intake Total 2540.2 ml Output Total 1050 ml Balance 1490.2 ml Height & Weight Height: 5'11.00" Weight: 176lbs. 1.6oz. 79.552492sr; 24.13 BMI Method: General Appearance: No Apparent Distress, WD/WN HEENT: PERRL/EOMI, Moist Mucous Membranes; No Scleral Icterus (L), No Scleral Icterus (R) Neck: Non Tender, Supple Respiratory: Lungs Clear, No Accessory Muscle Use, No Respiratory Distress Cardiovascular: Regular Rate, Rhythm, No JVD, No Murmur Capillary Refill: Less Than 3 Seconds Extremity: No Calf Tenderness, No Pedal Edema, Other (erythema and edema on left elbow with erythema wrapping circumferentailly around arm) Neurologic/Psychiatric: Alert, Oriented x3, Normal Mood/Affect Results Lab Laboratory Tests 09/06/21 08:04 09/07/21 04:09 09/07/21 04:23 Assessment/Plan Assessment/Plan 1. A. fib with RVR converted to sinus rhythm on Cardizem drip. Currently he is on oral Cardizem and Lopressor. 2. Non-ST segment elevation myocardial infarction. Likely type II [place]. 3. History of coronary artery disease status post CABG x3 in 2003. 4. Hypertension stable 5. Hypothyroidism 6. COPD Recommendations 1. A. fib management and non-ST elevation myocardial infarction per cardiology 2. Advised him to quit smoking and drinking 3. DVT prophylaxis and ulcer prophylaxis 4. Physical therapy. 5. If he continues to do well on oral medication this afternoon he may be transferred to stepdown unit from critical care point of view Critical Care: Critically Ill Patient Time spent with patient (mins): 20 BLANK ROBERTSON MD Sep 07, 2021 08:15
[2021-09-07] MEDS ORDERED: RT-ALBUTEROL/IPRATROPIUM 3 ML (DUONEB) VIAL INH PRN (08:30)
--- NOTE | 2021-09-07 08:33 | Cardiology Progress Note ---
Subjective Date Seen by Provider: Sep 07, 2021 Time Seen by Provider: 08:30 Subjective/Events-last exam Patient was seen at bedside, laying down comfortably Had an episode of chest pain earlier this morning. Back in sinus rhythm. Review of Systems General: No Chills, No Night Sweats; Fatigue, Malaise; No Appetite, No Other HEENT: No Head Aches, No Visual Changes, No Eye Pain, No Ear Pain, No Dysphasia, No Sinus Congestion, No Post Nasal Drip, No Sore Throat, No Other Pulmonary: Dyspnea; No Cough, No Pleuritic Chest Pain, No Other Cardiovascular: Chest Pain; No: Palpitations, Orthopnea, Paroxysmal Noc. Dyspnea, Edema, Lt Headedness, Other Focused Exam Lactate Level 09/06/21 08:04: Lactic Acid Level 2.45*H 09/06/21 16:30: Lactic Acid Level 1.19 Objective-Cardiology Exam Last Set of Vital Signs Vital Signs 09/06/21 09/07/21 09/07/21 18:00 06:00 07:28 Temp 36.1 Pulse 66 Resp 21 B/P (MAP) 153/84 Pulse Ox 97 O2 Delivery Nasal Cannula O2 Flow Rate 2.00 FiO2 28 I&O Intake and Output 09/07/21 00:00 Intake Total 2540.2 ml Output Total 500 ml Balance 2040.2 ml Intake Oral 420 ml IV Total 2120.2 ml Output Urine Total 500 ml Daily Weight Change No General: Alert, Oriented X3, Cooperative HEENT: Atraumatic, PERRLA Neck: Supple, No JVD, No Thyromegaly Lungs: Clear to Auscultation, Normal Air Movement Heart: Regular Rate, Normal S1, Normal S2, No Murmurs Abdomen: Normal Bowel Sounds, Soft, No Tenderness, No Hepatosplenomegaly, No Masses Extremities: No Clubbing, No Cyanosis, No Edema, Normal Pulses, No Tenderness/Swelling Skin: No Rashes, No Breakdown, No Significant Lesion Neuro: Normal Gait, Normal Speech, Strength at 5/5 X4 Ext, Normal Tone, Sensation Intact Psych/Mental Status: Mental Status NL, Mood NL Results Lab Laboratory Tests 09/07/21 04:09 09/07/21 04:23 A/P-Cardiology Admission Diagnosis Chest pain NSTEMI CAD AFib with RVR Assessment/Plan Chest pain, Non-ST elevation myocardial infarction, mild elevation in troponin, likely type II MO Conservative management is recommended. Currently no active chest pain. I will add isosorbide and continue to monitor Afib with RVR, converted to sinus rhythm on Cardizem drip Became bradycardic and the drip was stopped, tolerating Lopressor and Cardizem oral Continue on current medications and monitor-started on Cardizem gtt, Lopressor, Eliquis. Continue on telemetry, evaluate 2D Echo. [id number] score 4, currently on Lovenox, planning to switch him to Eliquis and monitor tolerance and response Coronary artery disease, history of CABG 3 done in 2003 in [place]. Reports underwent recent LHC and stenting approx 2 months ago. I will restart ASA and Plavix. Hypertension, restart home medication monitor blood pressure Hyperlipidemia, evaluate lipids. Hypokalemia, replace and continue to monitor. Hypothyroidism COPD ExTobaccoism, chewing tobacco ETOH use, reports he recently starting drinking again. Drinks approx 12 beers daily for the last month. Recent fall 2 days ago with left arm/shoulder pain, no acute fracture. TOM BULL MD Sep 07, 2021 08:33
[2021-09-07] MEDS: RT-ALBUTEROL/IPRATROPIUM 3 ML (DUONEB) VIAL INH SCH ×3 (08:53→21:47)
[2021-09-07] MEDS ORDERED: THIAMINE INJECTION 100 MG, FOLIC ACID INJECTION 1 MG, VITAMIN MULTI INJECTION 10 ML, MA... IV SCH ×5 (09:00)
--- NOTE | 2021-09-07 09:07 | Occupational Therapy Eval ---
OT Evaluation-General/PLF Medical Diagnosis Admission Date Sep 06, 2021 at 10:25 Medical Diagnosis: A-fib with RVR Onset Date: Sep 06, 2021 Therapy Diagnosis Therapy Diagnosis: reduced adl status Height/Weight Height (Feet): 5 Height (Inches): 11.00 Weight (Pounds): 176 Weight (Ounces): 1.6 Precautions Precautions/Isolations: Fall Prevention, Standard Precautions Referral Referral Reason: Evaluation/Treatment Medical History Pertinent Medical History: Atrial Fib, CABG, CAD, COPD, GERD, HTN Additional Medical History ETOH use, DDD, HLD Current History Pt presents to hospital with complaints of chest pain, SOB, and shoulder pain (from recent fall). X-ray at shoulder reveals no acute fracture or dislocation. Elbow x-ray does exhibit swelling (related to possible trauma). Per patient, he lives in a single story home with his . He was indep with adls but "with difficulty." His manages all of the household tasks. He was not using any AD at baseline but states that he only walks very short distances within the home; sedentary lifestyle. He uses oxygen at baseline, 2L at rest and 3L with activity. Reviewed History: Yes Social History Home: Single Level Current Living Status: Spouse ADL-Prior Level of Function SCALE: Activities may be completed with or without assistive devices. 8-Jwuhfibxvf-ewxgmix completes the activity by him/herself with no assistance from a helper. 5-Set-up or Clean-up Assistance-helper sets up or cleans up; patient completes activity. [place] assists only prior to or following the activity. 4-Supervision or Touching Assistance-helper provides verbal cues and/or touching/steadying and/or contact guard assistance as patient completes activity. Assistance may be provided throughout the activity or intermittently. 3-Partial/Moderate Assistance-helper does LESS THAN HALF the effort. [place] lifts, holds or supports trunk or limbs, but provides less than half the effort. 2-Substantial/Maximal Assistance-helper does MORE THAN HALF the effort. [place] lifts or holds trunk or limbs and provides more than half the effort. 4-Jkkclqmta-kugrur does ALL the effort. Patient does none of the effort to complete the activity. Or, the assistance of 2 or more helpers is required for the patient to complete the activity. If activity was not attempted, code reason: 7-Patient Refused. 9-Not Applicable-not attempted and the patient did not perform the activity before the current illness, exacerbation or injury. 10-Not Attempted due to Environmental Limitations-(lack of equipment, weather restraints, etc.). 88-Not Attempted due to Medical Conditions or Safety Concerns. Self Care: Independent Functional Cognition: Unknown DME/Equipment: Bath Chair, Tub/Shower Drive Self: Yes OT Current Status Subjective Pt reports pain in L shoulder, swelling notable at distal humerus/olecranon region. RN in room and is aware of pain. Appearance Pt left sitting in recliner, all needs within reach, RT and RN in room at OT departure. Mental Status/Objective Patient Orientation: Person, Place, Time Attachments: IV, Oxygen, Telemetry Current Hand Dominance: Right Upper Extremity ROM RUE: WNL L shoulder: ~150 degrees (limited by pain) L elbow-distally: WNL Bilateral tremors notable, possibly related to detoxing? Upper Extremity Strength RUE: 4/5 LUE not tested secondary to pain, L spinneret cleaner: fair ADL-Treatment Eating (QC): 5 On/Off Footwear (QC): 2 Pt sitting in chair at OT arrival. With extra effort, he was able to doff bilateral socks by bringing his foot onto the edge of the chair. Significant effort and SOA exhibited when attempting to re-don despite having good flexibility. Bilateral tremors notable, possibly related to detoxing? Desats to 79%, increased time to recover post visual/verbal cues for PLB. RT enters room and pt politely requesting to end OT eval in order to receive breathing treatment. Education OT Patient Education: Correct positioning, Purpose of tx/functional activities, Safety issues Teaching Recipient: Patient Teaching Methods: Demonstration, Discussion Response to Teaching: Verbalize Understanding, Return Demonstration, Reinforcement Needed OT Senior Care Goals Indian Trader Goals Time Frame: Sep 21, 2021 Oral Hygiene (QC): 5 Toileting Hygiene (QC): 4 Shower/Bathe Self (QC): 4 Upper Body Dressing (QC): 4 Lower Body Dressing (QC): 4 On/Off Footwear (QC): 4 1=Demonstrate adherence to instructed precautions during ADL tasks. 2=Patient will verbalize/demonstrate understanding of assistive devices/modifications for ADL. 3=Patient will improve strength/tolerance for activity to enable patient to perform ADL's. OT Education/Plan Problem List/Assessment Assessment: Decreased Activ Tolerance, Decreased Safety Aware, Decreased UE Strength, Impaired Funct Balance, Impaired Self-Care Skills, Restricted Funct UE ROM Discharge Recommendations Plan/Recommendations: Continue POC Therapy Discharge Recommendati: Post Acute OT Treatment Plan/Plan of Care Treatment,Training & Education: Yes Patient would benefit from OT for education, treatment and training to promote independence in ADL's, mobility, safety and/or upper extremity function for ADL's. Plan of Care: ADL Retraining, Cognitive Retraining, Functional Mobility, Group Exercise/Act as Ind, UE Funct Exercise/Act Treatment Duration: Sep 21, 2021 Frequency: 3 times per week (3-5x/week) Estimated Hrs Per Day: .25 hour per day Agreement: Yes Time/GCodes Start Time: 08:44 Stop Time: 08:55 Total Time Billed (hr/min): 11 Billed Treatment Time 1 visit Kiley Resendiz OT Sep 07, 2021 09:07
--- NOTE | 2021-09-07 09:24 | Progress Note - Hospitalist ---
Subjective HPI/CC On Admission Date Seen by Provider: Sep 07, 2021 Patient is a 70-year-old male with past medical history of coronary artery disease status post CABG and subsequent stenting who presented to the emergency department due to acute onset chest pain. He states the chest pain woke him from sleep and he was diaphoretic and short of breath with this. He had shoulder pain but attributed it to a fall yesterday. He tried to wait it out to see if it got better but it continued to worsen prompting him to call EMS for evaluation. He was given nitro without any relief. The emergency department he was found to be in new onset atrial fibrillation with rapid ventricular rate. He was given Cardizem and his rate improved. He does endorse a history of alcohol use drinking roughly 12 beers a day with his last drink being this morning. Subjective/Events-last exam Pt reports feeling better today. Only complaint is that he didn't get much sleep. Discussed improved heart rate. He declines any further cardiac work up. Focused Exam Lactate Level 09/06/21 08:04: Lactic Acid Level 2.45*H 09/06/21 16:30: Lactic Acid Level 1.19 Objective Exam Vital Signs Vital Signs Date Time Temp Pulse Resp B/P (MAP) Pulse Ox O2 Delivery O2 Flow Rate FiO2 09/07/21 09:00 66 40 144/108 100 Nasal Cannula 2.00 09/07/21 08:00 36.0 09/07/21 07:28 28 Capillary Refill : Less Than 3 Seconds General Appearance: No Apparent Distress, Chronically ill Respiratory: Lungs Clear, No Respiratory Distress Cardiovascular: Regular Rate, Rhythm, No Murmur Gastrointestinal: Normal Bowel Sounds, Non Tender, Soft Neurologic/Psychiatric: Alert, Oriented x3 Results/Procedures Lab Laboratory Tests 09/07/21 04:09 09/07/21 04:23 Patient resulted labs reviewed. Assessment/Plan Assessment and Plan Assess & Plan/Chief Complaint A fib w RVR CAD s/p CABG HTN HLD Converted, now in sinus and rate controlled Cardiology consulted, appreciate recs - discussed with Dr York, no further cardiac workup needed Echo with reserved EF and no valvular abnormalities Eliquis Cellulitis Falls No evidence of sepsis Erythema much improved Continue abx PT/OT Alcohol abuse Previously quit 15 years ago but started drinking again 6 months ago Drinks 12 beers per day with last beer this AM High risk for alcohol withdrawal DVT ppx: Eliquis Clinical Quality Measures AMI/AHF: ASA po Prior to arrival: Yes ANTONI SHERMAN MD Sep 07, 2021 09:24
[2021-09-07] MEDS: dilTIAZem120 MG (CARDIZEM CD) CAP PO SCH (09:37)
[2021-09-07] MEDS: ISOSORBIDE MONONITRATE 30 MG (IMDUR) TAB PO SCH (09:37)
[2021-09-07] MEDS: THIAMINE INJECTION 100 MG, FOLIC ACID INJECTION 1 MG, VITAMIN MULTI INJECTION 10 ML, MA... IV SCH ×5 (09:37)
[2021-09-07] MEDS: APIXABAN 5 MG (ELIQUIS) TABLET PO SCH ×2 (09:37→20:24)
--- NOTE | 2021-09-07 09:54 | Physical Therapy Evaluation ---
PT Evaluation-General Medical Diagnosis Admission Date Sep 06, 2021 at 10:25 Medical Diagnosis: A-fib with RVR Onset Date: Sep 06, 2021 Therapy Diagnosis Therapy Diagnosis: debility/weakness Height/Weight Height (Feet): 5 Height (Inches): 11.00 Weight (Pounds): 176 Weight (Ounces): 1.6 Precautions Precautions/Isolations: Fall Prevention, Standard Precautions Referral Physician: Stu Reason for Referral: Evaluation/Treatment Medical History Pertinent Medical History: Atrial Fib, Alcoholism, CABG, CAD, COPD (2L), GERD, HTN, MT Current History EMS secondary to CP and s/o fall ~ 2 days prior Reviewed History: Yes Social History Home: Single Level Current Living Status: Spouse Entry Into Home: Stairs With Railing PT Steps Into Home: 3 Prior Prior Level of Function SCALE: Activities may be completed with or without assistive devices. 0-Zgupyhpfum-ebwgewt completes the activity by him/herself with no assistance from a helper. 5-Set-up or Clean-up Assistance-helper sets up or cleans up; patient completes activity. [place] assists only prior to or following the activity. 4-Supervision or Touching Assistance-helper provides verbal cues and/or touching/steadying and/or contact guard assistance as patient completes activity. Assistance may be provided throughout the activity or intermittently. 3-Partial/Moderate Assistance-helper does LESS THAN HALF the effort. [place] lifts, holds or supports trunk or limbs, but provides less than half the effort. 2-Substantial/Maximal Assistance-helper does MORE THAN HALF the effort. [place] lifts or holds trunk or limbs and provides more than half the effort. 9-Oulmysxls-zyoazz does ALL the effort. Patient does none of the effort to complete the activity. Or, the assistance of 2 or more helpers is required for the patient to complete the activity. If activity was not attempted, code reason: 7-Patient Refused. 9-Not Applicable-not attempted and the patient did not perform the activity before the current illness, exacerbation or injury. 10-Not Attempted due to Environmental Limitations-(lack of equipment, weather restraints, etc.). 88-Not Attempted due to Medical Conditions or Safety Concerns. Bed Mobility: 6 Transfers (B,C,W/C): 6 Gait: 6 Stairs: 6 Indoor Mobility (Ambulation): Independent Stairs: Independent Prior Devices Use: None PT Evaluation-Current Subjective Patient agrees to PT. He reports he doesn't walk much at home due to his breathing. Objective Patient Orientation: Normal For Age Attachments: Oxygen, IV ROM/Strength ROM Lower Extremities bilateral LE WFL Strength Lower Extremities 4-/5 grossly bilateral LE Integumentary/Posture Integumentary refer to nursing notes Bowel Incontinence: No Bladder Incontinence: No Posture WFL Neuromuscular (Tone, Coordination, Reflexes) noted tremors bilateral LE Sensory Vision: Wears Glasses Hearing: Functional Hand Dominance: Right Transfers Lying to Sitting/Side of Bed(Q: 6 Sit to Stand (QC): 4 Chair/Wgf-va-Nsiqm Xfer(QC): 4 Gait Walk 10 feet (QC): 4 Distance: 10' Gait Assistive Device: None Comments/Gait Description slightly unsteady Balance Sitting Static: Normal Sitting Dynamic: Normal Standing Static: Fair Standing Dynamic: Fair Assessment/Needs Patient requires time due to increase SOA with minimal activity. Patient requires seated recovery periods due to increase SOA. SAO2 remains >92% with activity. Rehab Potential: Guarded (COPD) PT Alf Goals Alf Goals PT Alf Goals Time Frame: Sep 18, 2021 Roll Left & Right (QC): 6 Sit to Lying (QC): 6 Lying-Sitting on Side/Bed(QC): 6 Sit to Stand (QC): 6 Chair/Lqr-vj-Qpvav Xfer(QC): 6 Toilet Transfer (QC): 6 Walk 10 feet (QC): 6 Walk 50ft with 2 Turns (QC): 6 Walk 150 ft (QC): 6 PT Plan Problem List Problem List: Activity Tolerance, Functional Strength, Safety, Balance, Gait, Transfer Treatment/Plan Treatment Plan: Continue Plan of Care Treatment Plan: Bed Mobility, Education, Functional Activity Yoanna, Functional Strength, Gait, Safety, Therapeutic Exercise, Transfers Treatment Duration: Sep 18, 2021 Frequency: 6 times per week Estimated Hrs Per Day: .25 hour per day Patient and/or Family Agrees t: Yes Time/GCodes Time In: 745 Time Out: 757 Total Billed Treatment Time: 13 Total Billed Treatment 1 visit EVModC 13 min KALLIE TOMLINSON PT Sep 07, 2021 09:54
[2021-09-07] MEDS ORDERED: RT-ALBUINH IH (15:04)
[2021-09-07] MEDS ORDERED: GABA-490 PO (15:04)
[2021-09-07] MEDS ORDERED: ALB0.5V INH (15:04)
[2021-09-07] MEDS: LORazepam 1 MG (ATIVAN) TAB PO PRN ×3 (16:48→22:17)
[2021-09-07] MEDS ORDERED: PATIENT MAY USE OWN MED,SINGLE MED PO SCH (18:00)
[2021-09-07 19:10] VITALS: BP 136/78
[2021-09-07] MEDS: MELATONIN 3 MG TABLET PO PRN (20:23)
[2021-09-07] MEDS: GABAPENTIN 400 MG (NEURONTIN) CAP PO SCH (20:24)
[2021-09-07 23:35] VITALS: BP 150/84
[2021-09-08] MEDS: LORazepam 1 MG (ATIVAN) TAB PO PRN (03:12)
[2021-09-08 03:23] VITALS: BP 132/81
[2021-09-08] MEDS: inSUlin ASPART (NovoLOG) 1 UNIT/0.01 ML (CHARGE PER UNIT) SC SCH ×2 (05:30→10:20)
[2021-09-08] MEDS: ceFAZolin INJECTION 500 MG in NS (IVPB) 50 ML IV SCH ×2 (05:36→13:08)
[2021-09-08] MEDS: POTASSIUM CL 10MEQ/50ML IVPB 50 ML IV SCH (06:00)
[2021-09-08] MEDS: MAGNESIUM 1 GM/100 ML IVPB 100 ML IV SCH (06:00)
[2021-09-08] MEDS: KCL 20 MEQ TAB (K-DUR) PO SCH (06:00)
[2021-09-08 06:27] LABS: HEMATOCRIT 30 % (40-54); HEMOGLOBIN 9.8 g/dL (13.3-17.7); MEAN CORPUSCULAR HEMOGLOBIN 35 pg (25-34); MEAN CORPUSCULAR HGB CONC 33 g/dL (32-36); MEAN CORPUSCULAR VOLUME 109 fL (80-99); MEAN PLATELET VOLUME 9.2 fL (9.0-12.2); PLATELET COUNT 210 10^3/uL (130-400); WHITE BLOOD COUNT 7.3 10^3/uL (4.3-11.0)
[2021-09-08 06:33] LABS: POTASSIUM 3.8 MMOL/L (3.6-5.0)
[2021-09-08 06:34] LABS: CALCIUM 8.2 MG/DL (8.5-10.1)
[2021-09-08 06:39] LABS: CREATININE SERUM 0.64 MG/DL (0.60-1.30)
[2021-09-08 06:42] LABS: MAGNESIUM 2.1 MG/DL (1.6-2.4)
[2021-09-08] MEDS: RT-ALBUTEROL/IPRATROPIUM 3 ML (DUONEB) VIAL INH SCH ×3 (07:44→14:56)
[2021-09-08] MEDS ORDERED: TIOTROPIUM BROMIDE (SPIRIVA) 5'S INHALER IH SCH (08:00)
[2021-09-08] MEDS ORDERED: RELABEL FOR HOME USE MC SCH (08:00)
[2021-09-08 08:03] VITALS: BP 150/75
[2021-09-08] MEDS: APIXABAN 5 MG (ELIQUIS) TABLET PO SCH (08:15)
[2021-09-08] MEDS: CLOPIDOGREL 75 MG (PLAVIX) TABLET PO SCH (08:15)
[2021-09-08] MEDS: meTOprolol TARTRATE 25 MG (LOPRESSOR) TABLET PO SCH (08:15)
[2021-09-08] MEDS: GABAPENTIN 400 MG (NEURONTIN) CAP PO SCH ×2 (08:15→13:08)
[2021-09-08] MEDS: dilTIAZem120 MG (CARDIZEM CD) CAP PO SCH (08:15)
[2021-09-08] MEDS: guaiFENesin (MUCINEX) 600 MG TAB PO SCH (08:15)
[2021-09-08] MEDS: ISOSORBIDE MONONITRATE 30 MG (IMDUR) TAB PO SCH (08:15)
[2021-09-08] MEDS: ASPIRIN E.C. 81 MG (ECOTRIN) TAB PO SCH (08:15)
[2021-09-08] MEDS: NS IV 1000 ML 1,000 ML IV SCH (08:16)
--- NOTE | 2021-09-08 08:58 | Physical Therapy Daily Note ---
PT Daily Note-Current Subjective Patient in bed pre tx, very drowsy, hard to wake, nurse in room, eventually patient agrees to get up, patient doesn't seem to have any complaints of pain although it is hard to tell because his speech is so garbled. Appearance Patient in recliner post tx with nurse call, phone, tray, all needs met, chair alarm on. Mental Status Patient Orientation: Person, Confused, Unable to Assess, [place] Attachments: Oxygen, IV Transfers SCALE: Activities may be completed with or without assistive devices. 0-Dlxtxdiopg-rbeyctx completes the activity by him/herself with no assistance from a helper. 5-Set-up or Clean-up Assistance-helper sets up or cleans up; patient completes activity. [place] assists only prior to or following the activity. 4-Supervision or Touching Assistance-helper provides verbal cues and/or touching/steadying and/or contact guard assistance as patient completes activity. Assistance may be provided throughout the activity or intermittently. 3-Partial/Moderate Assistance-helper does LESS THAN HALF the effort. [place] lifts, holds or supports trunk or limbs, but provides less than half the effort. 2-Substantial/Maximal Assistance-helper does MORE THAN HALF the effort. [place] lifts or holds trunk or limbs and provides more than half the effort. 0-Lvkxpqdeh-fxyydo does ALL the effort. Patient does none of the effort to com plete the activity. Or, the assistance of 2 or more helpers is required for the patient to complete the activity. If activity was not attempted, code reason: 7-Patient Refused. 9-Not Applicable-not attempted and the patient did not perform the activity before the current illness, exacerbation or injury. 10-Not Attempted due to Environmental Limitations-(lack of equipment, weather restraints, etc.). 88-Not Attempted due to Medical Conditions or Safety Concerns. Roll Left & Right (QC): 3 Lying to Sitting/Side of Bed(Q: 3 Sit to Stand (QC): 3 Chair/Sxd-zm-Hdowa Xfer(QC): 3 Min assist for supine to sit and sit to stand Gait Training Distance: 10-15' Walk 10 feet (QC): 4 Gait Persons Needed: 1 Gait Assistive Device: FWW patient starts to ambulate impulsively without regard for his IV and O2 lines, he is directed back to his recliner, ambulates for a total of about 10-15' with CGA Exercises Seated Therapy Exercises: Ankle pumps, Long arc quads Seated Reps: 20 Treatments bed mobility and transfers, ambulation, LE exercise Assessment Current Status: Poor Progress Patient very lethargic, speech is unintelligible. PT Siding Installer Goals Retirement Goals PT Retirement Goals Time Frame: Sep 18, 2021 Roll Left & Right (QC): 6 Sit to Lying (QC): 6 Lying-Sitting on Side/Bed(QC): 6 Sit to Stand (QC): 6 Chair/Vvp-iu-Ltnjk Xfer(QC): 6 Toilet Transfer (QC): 6 Walk 10 feet (QC): 6 Walk 50ft with 2 Turns (QC): 6 Walk 150 ft (QC): 6 PT Plan Problem List Problem List: Activity Tolerance, Functional Strength, Safety, Balance, Gait, Transfer, Bed Mobility, ROM Treatment/Plan Treatment Plan: Continue Plan of Care Treatment Plan: Bed Mobility, Education, Functional Activity Yoanna, Functional Strength, Gait, Safety, Therapeutic Exercise, Transfers Treatment Duration: Sep 18, 2021 Frequency: 6 times per week Estimated Hrs Per Day: .25 hour per day Patient and/or Family Agrees t: Yes Safety Risks/Education Patient Education: Gait Training, Transfer Techniques, Correct Positioning, Safety Issues Teaching Recipient: Patient Teaching Methods: Demonstration, Discussion Response to Teaching: Reinforcement Needed Time/GCodes Time In: 819 Time Out: 08 Total Billed Treatment Time: 12 Total Billed Treatment 1 visit FA 12' KEN TOLENTINO PT Sep 08, 2021 08:58
[2021-09-08] MEDS: THIAMINE INJECTION 100 MG, FOLIC ACID INJECTION 1 MG, VITAMIN MULTI INJECTION 10 ML, MA... IV SCH ×5 (09:34)
--- NOTE | 2021-09-08 10:22 | Cardiology Progress Note ---
Subjective Date Seen by Provider: Sep 08, 2021 Time Seen by Provider: 10:17 Subjective/Events-last exam Patient was seen at bedside, laying down comfortably. No new complaint. Review of Systems General: No Chills, No Night Sweats; Fatigue; No Malaise, No Appetite, No Other HEENT: No Head Aches, No Visual Changes, No Eye Pain, No Ear Pain, No Dysphasia, No Sinus Congestion, No Post Nasal Drip, No Sore Throat, No Other Pulmonary: Dyspnea; No Cough, No Pleuritic Chest Pain, No Other Cardiovascular: No: Chest Pain, Palpitations, Orthopnea, Paroxysmal Noc. Dyspnea, Edema, Lt Headedness, Other Focused Exam Lactate Level 09/06/21 08:04: Lactic Acid Level 2.45*H 09/06/21 16:30: Lactic Acid Level 1.19 Objective-Cardiology Exam Last Set of Vital Signs Vital Signs 09/07/21 09/08/21 09/08/21 07:28 08:03 09:58 Temp 37.0 Pulse 70 Resp 18 B/P (MAP) 150/75 (100) Pulse Ox 95 O2 Delivery Nasal Cannula O2 Flow Rate 2.00 FiO2 28 I&O Intake and Output 09/08/21 00:00 Intake Total 2445 ml Output Total 1360 ml Balance 1085 ml Intake Oral 1340 ml IV Total 1105 ml Output Urine Total 1360 ml General: Alert, Oriented X3, Cooperative HEENT: Atraumatic, PERRLA Neck: Supple, No JVD, No Thyromegaly Lungs: Clear to Auscultation, Normal Air Movement Heart: Regular Rate, Normal S1, Normal S2, No Murmurs Abdomen: Normal Bowel Sounds, Soft, No Tenderness, No Hepatosplenomegaly, No Masses Extremities: No Clubbing, No Cyanosis, No Edema, Normal Pulses, No Tenderness/Swelling Skin: No Rashes, No Breakdown, No Significant Lesion Neuro: Normal Gait, Normal Speech, Strength at 5/5 X4 Ext, Normal Tone, Sensation Intact Psych/Mental Status: Mental Status NL, Mood NL Results Lab Laboratory Tests 09/08/21 05:37 A/P-Cardiology Admission Diagnosis Chest pain NSTEMI CAD AFib with RVR Assessment/Plan Chest pain, Non-ST elevation myocardial infarction, mild elevation in troponin, likely type II NE Conservative management is recommended. Patient is feeling better. No further episodes of chest pain Tolerating isosorbide well. Afib with RVR, converted to sinus rhythm on Cardizem drip Became bradycardic and the drip was stopped, tolerating Lopressor and Cardizem oral Continue on current medications and monitor-started on Cardizem gtt, Lopressor, Eliquis. [id number] score 4, currently on Lovenox, planning to switch him to Eliquis and monitor tolerance and response Coronary artery disease, history of CABG 3 done in 2003 in [place]. Reports underwent recent LHC and stenting approx 2 months ago. Continue on aspirin and plavix Hypertension, monitor blood pressure Hyperlipidemia, evaluate lipids. Hypothyroidism COPD ExTobaccoism, chewing tobacco ETOH use, reports he recently starting drinking again. Drinks approx 12 beers daily for the last month. Recent fall 2 days ago with left arm/shoulder pain, no acute fracture. TOM BULL MD Sep 08, 2021 10:22
--- NOTE | 2021-09-08 10:51 | Occupational Ther Daily Note ---
OT Current Status-Daily Note Subjective "I was so confused when I woke up this morning. I wasn't sure if I was in longterm or a hospital, but I finally figured it out." Appearance Pt left sitting in recliner, all needs within reach. Mental Status/Objective Patient Orientation: Person, Mumbles Attachments: IV, Oxygen, Telemetry ADL-Treatment Therapy Code Descriptions/Definitions Functional [place] Measure: 0=Not Assessed/NA 4=Minimal Assistance 1=Total Assistance 5=Supervision or Setup 2=Maximal Assistance 6=Modified [place] 3=Moderate Assistance 7=Complete IndependenceSCALE: Activities may be completed with or without assistive devices. 9-Rpbwgzqhum-ylgzocp completes the activity by him/herself with no assistance from a helper. 5-Set-up or Clean-up Assistance-helper sets up or cleans up; patient completes activity. [place] assists only prior to or following the activity. 4-Supervision or Touching Assistance-helper provides verbal cues and/or touching/steadying and/or contact guard assistance as patient completes activity. Assistance may be provided throughout the activity or intermittently. 3-Partial/Moderate Assistance-helper does LESS THAN HALF the effort. [place] lifts, holds or supports trunk or limbs, but provides less than half the effort. 2-Substantial/Maximal Assistance-helper does MORE THAN HALF the effort. [place] lifts or holds trunk or limbs and provides more than half the effort. 2-Gmrxoqqew-pktfub does ALL the effort. Patient does none of the effort to complete the activity. Or, the assistance of 2 or more helpers is required for the patient to complete the activity. If activity was not attempted, code reason: 7-Patient Refused. 9-Not Applicable-not attempted and the patient did not perform the activity before the current illness, exacerbation or injury. 10-Not Attempted due to Environmental Limitations-(lack of equipment, weather restraints, etc.). 88-Not Attempted due to Medical Conditions or Safety Concerns. Oral Hygiene (QC): 5 Pt sitting in recliner at OT arrival. Garbled speech, needs cues for repetition at times. Less swelling notable in L elbow. Pt able to demonstrate full range in shoulder this date, but does verbalize minor pain with movement. He was agreeable to oral care. Extra time for set up of task secondary to BUE tremors. OT educated pt on compensatory methods and reducing degrees of freedom in order to have more stability in proximal joints. Pt brushed dentures without physical assistance, only needing extra time. He declined all other adls, reports possibility of discharge later today. Education OT Patient Education: Correct positioning, Modified ADL techniques, Progress toward Goal/Update tx plan, Purpose of tx/functional activities, Safety issues, Transfer techniques Teaching Recipient: Patient Teaching Methods: Demonstration, Discussion Response to Teaching: Verbalize Understanding, Return Demonstration, Reinforcement Needed OT Merry Go Round Operator Goals Merry Go Round Operator Goals Time Frame: Sep 21, 2021 Oral Hygiene (QC): 5 Toileting Hygiene (QC): 4 Shower/Bathe Self (QC): 4 Upper Body Dressing (QC): 4 Lower Body Dressing (QC): 4 On/Off Footwear (QC): 4 1=Demonstrate adherence to instructed precautions during ADL tasks. 2=Patient will verbalize/demonstrate understanding of assistive devices/modifications for ADL. 3=Patient will improve strength/tolerance for activity to enable patient to perform ADL's. OT Education/Plan Problem List/Assessment Assessment: Decreased Activ Tolerance, Decreased Safety Aware, Decreased UE Strength, Edema, Impaired Cognition, Impaired Coordination, Impaired Funct Balance, Impaired Self-Care Skills Discharge Recommendations Plan/Recommendations: Continue POC Treatment Plan/Plan of Care Treatment,Training & Education: Yes Patient would benefit from OT for education, treatment and training to promote independence in ADL's, mobility, safety and/or upper extremity function for ADL's. Plan of Care: ADL Retraining, Cognitive Retraining, Functional Mobility, Group Exercise/Act as Ind, UE Funct Exercise/Act Treatment Duration: Sep 21, 2021 Frequency: 3 times per week (3-5x/week) Estimated Hrs Per Day: .25 hour per day Agreement: Yes Rehab Potential: Guarded (COPD) Time/GCodes Start Time: 10:30 Stop Time: 10:44 Total Time Billed (hr/min): 14 Billed Treatment Time 1 visit ADL Kiley Pena OT Sep 08, 2021 10:51
[2021-09-08 11:26] VITALS: BP 145/73
[2021-09-08] MEDS ORDERED: METO-333 PO (11:58)
[2021-09-08] MEDS ORDERED: APIX5TAB PO (11:58)
[2021-09-08] MEDS ORDERED: ISOS30TA82 PO (11:58)
[2021-09-08] MEDS ORDERED: CEPH500T PO (11:58)
[2021-09-08] MEDS ORDERED: DILT-27 PO (11:58)
[2021-09-08] MEDS ORDERED: CLOP75TA28 PO (11:58)
--- NOTE | 2021-09-08 14:08 | Discharge Inst-Simple/Standard ---
Discharge Inst-Standard Discharge Medications New, Converted or Re-Newed RX: Transmitted to Pharmacy Patient Instructions/Follow Up Plan of Care/Instructions/FU: Please continue to take your medications as written. Please follow up with your primary care doctor to follow up this hospital stay. Activity as Tolerated: Yes Discharge Diet: Cardiac Diet Return to The Hospital For: Chest pain, rapid heart rate, falls, shortness of breath, fever, weakness, if you feel you are getting worse. ANTONI SHERMAN MD Sep 08, 2021 14:08
[2021-09-08 16:31] VITALS: BP 145/73
--- NOTE | 2021-09-08 20:15 | Physician Query Clarification ---
Physician Query-General Query to Physician: The medical record reflects the following clinical scenario: The patient, in the setting of History/Risk factors, CAD with CABG and coronary stents, [place], At. Fib with RVR Clinical Findings Chest Pain, troponin less than 0.028, did increase to 0.031, only two troponins drawn, Chest pain resolved, At. Fib converted to SR Treatment Aspirin, enoxaparin, nitroglycerin ointment, diltiazem drip, Cardiology consult recommending conservative Management, Added Imdur, Question: Do you agree with the impression of NSTEMI/Type II [place] per Dr. Gregory York? 1. Yes; will document NSTEMI, present on admission in the Progress Notes 2. No; will continue current documentation in the Progress Notes 3. Other; will document explanation of clinical findings 4. Clinically undetermined; no explanation for clinical findings Please clarify and document your clinical opinion in the Progress Notes and Discharge Summary including the definitive and/or presumptive diagnosis, (suspected or probable), related to the above clinical findings. Please include clinical findings supporting your diagnosis. In responding to this query, please exercise your independent professional judgment. The purpose of this communication is to more accurately reflect the complexity of your patients condition. The fact that a question is asked does not imply that any particular answer is desired or expected. Thank you for timely response to this clarification. Maria T Alicea MSN, RN Clinical Load Dispatcher [phone] [email or web address] PHYSICIAN RESPONSE: Based on the clinical findings in the record, please respond to the query above on this document as an addendum. Physician Response: Physician Response 2 If you have questions please contact: Manager Reading: Ext: Thank you for your time and cooperation. Clinical Load Dispatcher/Manager Reading This is a permanent part of the medical record MARIA T ALICEA Sep 08, 2021 20:15 ANTONI SHERMAN MD Sep 12, 2021 12:16
== END 2021-09-08 16:25 | disposition home or self-care (01) | DRG 309 ==
LOC: EDUNIT# 07:51 → ER 07:53 → ICU 10:25 → 4TH 09-07 18:51
PROVIDERS: ADMIT Family Medicine; ATTEND Family Medicine
DX: I48.91 Unspecified atrial fibrillation (principal); L03.114 Cellulitis of left upper limb; J43.9 Emphysema, unspecified; F10.20 Alcohol dependence, uncomplicated; Y90.3 Blood alcohol level of 60-79 mg/100 ml; I10 Essential (primary) hypertension; E78.00 Pure hypercholesterolemia, unspecified; I25.10 Atherosclerotic heart disease of native coronary artery without angina pectoris; Z20.822 Contact with and (suspected) exposure to COVID-19; K21.9 Gastro-esophageal reflux disease without esophagitis; F41.9 Anxiety disorder, unspecified; F32.A Depression, unspecified; E87.6 Hypokalemia; E03.9 Hypothyroidism, unspecified; Z99.81 Dependence on supplemental oxygen; Z87.891 Personal history of nicotine dependence; Z79.82 Long term (current) use of aspirin; Z79.52 Long term (current) use of systemic steroids; Z95.1 Presence of aortocoronary bypass graft; Z95.5 Presence of coronary angioplasty implant and graft; I25.2 Old myocardial infarction; Z91.81 History of falling; W19.XXXA Unspecified fall, initial encounter
CPT/HCPCS: 36415; 70450; 71045; 71275; 72125; 73030; 73060; 73080; 80048; 80053; 80306; 80320; 81000; 82150; 82550; 82553; 82947; 83605; 83690; 83735; 83874; 83880; 84100; 84145; 84439; 84443; 84484; 85025; 85027; 85379; 85610; 85652; 85730; 86141; 87040; 87081; 87636; 93005; 93041; 93306; 94640; 94664; 94760; 96361; 96372; 96374; 96375; 96376

== ENCOUNTER 2021-09-24 17:23 | Inpatient (IN) | payer MEDICARE ==
[~2021-09-24] VITALS: Ht 180 cm; Wt 85.3 kg
[~2021-09-24 17:23] MED LIST changes: +ALB0.5V INH; +APIX5TAB PO; +CEPH500T PO; +CLOP75TA28 PO; +DILT-27 PO; +GABA-490 PO; +ISOS30TA82 PO; +METO-333 PO
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
[2021-09-24] MEDS ORDERED: LIDOCAINE UROJET 2% GEL 10 ML PKG TOP ONE ×3 (17:45→20:00)
[2021-09-24] MEDS ORDERED: NS IV 1000 ML 1,000 ML IV SCH (17:45)
[2021-09-24] MEDS ORDERED: fentaNYL INJ 100 MCG/2 ML AMP IVP ONE ×2 (17:45→18:30)
[2021-09-24 17:49] LABS: HEMATOCRIT 39 % (40-54); HEMOGLOBIN 13.7 g/dL (13.3-17.7); MEAN CORPUSCULAR HEMOGLOBIN 36 pg (25-34); MEAN CORPUSCULAR HGB CONC 35 g/dL (32-36); MEAN CORPUSCULAR VOLUME 102 fL (80-99); MEAN PLATELET VOLUME 8.2 fL (9.0-12.2); PLATELET COUNT 224 10^3/uL (130-400); WHITE BLOOD COUNT 6.7 10^3/uL (4.3-11.0)
[2021-09-24 18:08] LABS: POTASSIUM 4.1 MMOL/L (3.6-5.0)
[2021-09-24 18:10] LABS: TOTAL PROTEIN 7.3 GM/DL (6.4-8.2)
[2021-09-24 18:12] LABS: BILIRUBIN,TOTAL 0.5 MG/DL (0.1-1.0)
[2021-09-24 18:14] LABS: CREATININE SERUM 0.69 MG/DL (0.60-1.30)
[2021-09-24] MEDS ORDERED: NS 100 ML (IVPB) BAG IV ONE (18:15)
[2021-09-24] MEDS ORDERED: IOHEXOL 350 MG/ML 100 ML (OMNIPAQUE 350) VIAL IV ONE (18:15)
[2021-09-24 18:16] LABS: BILIRUBIN,DIRECT 0.2 MG/DL (0.0-0.3); BILIRUBIN,INDIRECT 0.3 MG/DL
[2021-09-24] MEDS ORDERED: fentaNYL INJ 100 MCG/2 ML AMP ONE (18:18)
--- NOTE | 2021-09-24 18:20 | Diagnostic Imaging Report ---
PROCEDURE: CT head and CT cervical spine without contrast. TECHNIQUE: Multiple contiguous axial images were obtained through the brain and cervical spine without the use of intravenous contrast. Sagittal and coronal reformations through the cervical spine were then performed. Auto Exposure Controls were utilized during the CT exam to meet ALARA standards for radiation dose reduction. INDICATION: 70-year-old male, fall, does not remember accident. CORRELATION STUDY: CT head and cervical spines 09/06/2021. FINDINGS: CT HEAD: Generalized atrophic changes. Scattered areas of decreased attenuation likely owing to chronic small vessel ischemic disease. No appreciable midline shift or mass effect. Findings do suggest probable multi-lacunar infarcts in the left thalamus and basal ganglia. No new areas of decreased attenuation to suggest edema. No intracranial hemorrhage. Bony calvarium is intact. Findings compatible with prominent intracranial vascular calcifications. Old nasal bone fracture deformities. CT CERVICAL SPINE: Motion artifact. Alignment, however, appears to be anatomic. Vertebral body heights are maintained. There is no suggestion for acute fracture. Odontoid is intact. Posterior elements are intact and in normal alignment. Various degrees of vsvf-rh-xhzdfugu disc space narrowing. Slightly more prominent C3-C4 and C5-C6 levels. Prominent osteophytes, particularly anteriorly. However, there is mild osteophyte formation at C3-C4 and C5-C6 levels, which does result in mild narrowing of the foramina. Rather prominent calcification in the carotid bifurcations. IMPRESSION: CT HEAD: 1. Negative for acute traumatic intracranial abnormality. CT CERVICAL SPINE: 1. Negative for acute fracture or traumatic subluxation. Prominent multilevel cervical spondylosis. Dictated by: Dictated on workstation # [id number]
[2021-09-24] MEDS: fentaNYL INJ 100 MCG/2 ML AMP IVP PRN ×2 (18:22→20:31)
--- NOTE | 2021-09-24 18:35 | Diagnostic Imaging Report ---
PROCEDURE: CT chest, abdomen, and pelvis with contrast. TECHNIQUE: Multiple contiguous axial images were obtained through the chest, abdomen, and pelvis after the administration of intravenous contrast. Auto Exposure Controls were utilized during the CT exam to meet ALARA standards for radiation dose reduction. INDICATION: Fall, left chest and right leg bruising and pain. COMPARISON: Exam is correlated with CT angiogram of the chest 09/06/2021. FINDINGS: CHEST: No lung contusion, pneumothorax, or hemothorax. Chronic COPD noted. There is atherosclerotic vascular disease of the nonaneurysmal and nonacute aorta. There are heavy coronary artery atherosclerotic vascular calcifications. There is no pleural or pericardial effusion. There is no mediastinal hematoma. There is previous sternotomy without dehiscence. No chest wall fracture deformity apparent. No chest wall hematoma. No contrast extravasation. No lung mass or thoracic adenopathy. ABDOMEN AND PELVIS: There is no abdominopelvic free fluid or hemoperitoneum. There is no free air. Liver, spleen, adrenals, and pancreas are nonacute. The gallbladder is unremarkable. There are extensive aortoiliac atherosclerotic vascular calcifications, nonacute. There is noninflamed sigmoid diverticulosis. There are no findings of mesenteric or bowel wall hematoma. There is no viscus perforation. There is varus angulation associated with intertrochanteric right femoral fractures. The femoral heads and acetabula bilaterally appeared intact. Superior and inferior pubic rami are intact. There was no symphyseal or SI joint diastasis. No sacral injury. There are degenerative changes to the spine, but no spinal fracture apparent. IMPRESSION: CHEST: No thoracic injury or acute appearing abnormality identified. ABDOMEN AND PELVIS: Varus angulation associated with intertrochanteric right hip fracture without contrast extravasation or acetabular involvement. No other osseous injury, and no findings of soft tissue injury or hemoperitoneum. Dictated by: Dictated on workstation # [id number]
--- NOTE | 2021-09-24 18:36 | Diagnostic Imaging Report ---
INDICATION: Injury with pain. FINDINGS: There is comminuted intertrochanteric right hip fracture with moderate varus angulation. There are extensive atherosclerotic vascular calcifications. Radiographically, the bones appeared demineralized and likely reflect osteoporosis versus osteopenia. No mid shaft or distal injury identified. IMPRESSION: Comminuted angulated intertrochanteric right hip fracture without dislocation in an osteopenic or osteoporotic patient with extensive atherosclerosis. Dictated by: Dictated on workstation # [id number]
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
--- NOTE | 2021-09-24 18:39 | Diagnostic Imaging Report ---
INDICATION: Trauma, fall, left-sided chest pain and bruising. TECHNIQUE: Single-view chest at 06:19 p.m. CORRELATION STUDY: 09/06/2021. FINDINGS: Post sternotomy and coronary artery bypass. Heart size, mediastinum, and vasculature are overall within normal limits. Hyperinflated, emphysematous changes about the lung parenchyma. No evidence for infiltrate, effusion and/or pneumothorax. No findings to suggest acute displaced fracture. IMPRESSION: 1. Negative for acute traumatic abnormality of the chest. Dictated by: Dictated on workstation # [id number]
[2021-09-24] MEDS ORDERED: LACTATED RINGERS 1,000 ML IV ONE ×2 (18:45→19:00)
[2021-09-24 18:49] LABS: BILIRUBIN,URINE NEGATIVE (NEGATIVE); CLARITY,URINE CLEAR; COLOR,URINE YELLOW; GLUCOSE, URINE (UA) NEGATIVE (NEGATIVE); KETONES,URINE NEGATIVE (NEGATIVE); LEUKOCYTE ESTERASE ,URINE NEGATIVE (NEGATIVE); NITRITE,URINE NEGATIVE (NEGATIVE); PROTEIN,URINE NEGATIVE (NEGATIVE)
[2021-09-24 18:56] LABS: AMYLASE 39 U/L (25-125)
[2021-09-24 18:58] LABS: INR 0.9 (0.8-1.4); PROTHROMBIN TIME PATIENT 12.5 SEC (12.2-14.7)
[2021-09-24 18:59] LABS: BACTERIA,URINE TRACE /HPF; RBC,URINE RARE /HPF; SQUAMOUS EPITHELIAL CELL,UR RARE /HPF
[2021-09-24 19:02] LABS: AMPHETAMINE SCREEN, URINE NEGATIVE (NEGATIVE); BARBITURATE SCREEN URINE NEGATIVE (NEGATIVE); BENZODIAZEPINES SCREEN URINE NEGATIVE (NEGATIVE); CANNABINOID SCREEN, URINE NEGATIVE (NEGATIVE); COCAINE SCREEN URINE NEGATIVE (NEGATIVE); METHADONE STAT NEGATIVE (NEGATIVE); OPIATE SCREEN URINE NEGATIVE (NEGATIVE); OXYCODONE STAT NEGATIVE (NEGATIVE); PROPOXYPHENE STAT NEGATIVE (NEGATIVE); TRICYCLIC ANTIDEPRESSANTS SCRE NEGATIVE (NEGATIVE)
[2021-09-24 19:05] LABS: LIPASE 25 U/L (8-78)
[2021-09-24] MEDS ORDERED: ONDANSETRON 4 MG/2 ML (SDV) Z0FRAN IV PRN (20:00)
[2021-09-24] MEDS ORDERED: ACETAMINOPHEN 325 MG TABLET PO PRN (20:00)
[2021-09-24] MEDS ORDERED: CALCIUM CARBONATE 500 MG (TUMS) TAB.CHEW PO PRN (20:00)
[2021-09-24] MEDS ORDERED: 1/2 NS IV SOLUTION 1,000 ML IV PRN (20:00)
[2021-09-24] MEDS ORDERED: D5 1/2 NS 1000 ML IV SOLUTION 1,000 ML IV PRN (20:00)
[2021-09-24] MEDS ORDERED: BISACODYL 10 MG SUPP (DULCOLAX) PR PRN (20:00)
[2021-09-24] MEDS ORDERED: MILK OF MAGNESIA 400 MG/5 ML 30 ML UDC PO PRN (20:00)
[2021-09-24] MEDS ORDERED: ONDANSETRON 4 MG (ZOFRAN) ORAL DISSOLVE TAB SL PRN (20:00)
[2021-09-24] MEDS ORDERED: diphenhydrAMINE 25 MG TAB (BENADRYL) PO PRN (20:00)
[2021-09-24] MEDS ORDERED: diphenhydrAMINE 50 MG/ML INJ (BENADRYL) IVP PRN (20:00)
[2021-09-24] MEDS ORDERED: MELATONIN 3 MG TABLET PO PRN (20:00)
[2021-09-24] MEDS ORDERED: ANTACID SUSP 30 ML UDC (MYLANTA) PO PRN ×2 (20:00)
[2021-09-24] MEDS ORDERED: ONDANSETRON 4 MG (ZOFRAN) ORAL DISSOLVE TAB PO PRN (20:00)
[2021-09-24] MEDS ORDERED: LACTULOSE SYRUP 10GM/15ML (ENULOSE) 30ML UDC PO PRN (20:00)
[2021-09-24] MEDS ORDERED: polyethylene glycoL POWDER 17 GM (MIRALAX) PACK PO PRN (20:00)
[2021-09-24] MEDS ORDERED: SENNA W/DOCUSATE (SENOKOT S) TABLET PO PRN (20:00)
[2021-09-24] MEDS ORDERED: NS IV 1000 ML 1,000 ML ONE (20:29)
[2021-09-24] MEDS: NS IV 1000 ML 1,000 ML IV SCH (20:30)
[2021-09-24] MEDS: SENNOSIDES 8.6 MG (SENOKOT) TAB PO SCH (21:00)
[2021-09-24] MEDS: DOCUSATE SODIUM 100 MG (COLACE) CAP PO SCH (21:00)
[2021-09-24 21:40] LABS: BASOPHILS % (AUTO) 0 % (0-10); EOSINOPHILS % (AUTO) 0 % (0-10); HEMATOCRIT 35 % (40-54); HEMOGLOBIN 11.7 g/dL (13.3-17.7); LYMPHOCYTES # (AUTO) 0.6 10^3/uL (1.0-4.0); LYMPHOCYTES % (AUTO) 7 % (12-44); MEAN CORPUSCULAR HEMOGLOBIN 35 pg (25-34); MEAN CORPUSCULAR HGB CONC 34 g/dL (32-36); MEAN CORPUSCULAR VOLUME 104 fL (80-99); MEAN PLATELET VOLUME 8.5 fL (9.0-12.2); MONOCYTES # (AUTO) 0.5 10^3/uL (0.0-1.0); MONOCYTES % (AUTO) 6 % (0-12); NEUTROPHILS # (AUTO) 7.3 10^3/uL (1.8-7.8); NEUTROPHILS % (AUTO) 87 % (42-75); PLATELET COUNT 213 10^3/uL (130-400); WHITE BLOOD COUNT 8.5 10^3/uL (4.3-11.0)
[2021-09-24] MEDS: morphine INJ 4 MG/ML 1 ML (VIAL/SYRINGE) IV PRN (21:40)
[2021-09-24] MEDS: ONDANSETRON 4 MG/2 ML (SDV) Z0FRAN IV PRN (21:44)
[2021-09-24] MEDS: LORazepam 1 MG (ATIVAN) TAB PO PRN (21:47)
[2021-09-24] MEDS: MAGNESIUM OXIDE (MAG-OX)400 MG TAB PO SCH (21:48)
[2021-09-24 22:16] LABS: LYMPHOCYTES % (MANUAL) 9 %; MONOCYTES % (MANUAL) 5 %; NEUTROPHILS % (MANUAL) 86 %; RBC MORPH NORMAL
[2021-09-24] MEDS: DIAZEPAM INJ 10 MG/2 ML (VALIUM) SYR IVP PRN (22:29)
[2021-09-25] VITALS (8 sets, daily range): BP systolic 152–195; BP diastolic 98–121
[2021-09-25] MEDS: NS IV 1000 ML 1,000 ML IV SCH ×2 (02:37→17:09)
[2021-09-25] MEDS: morphine INJ 4 MG/ML 1 ML (VIAL/SYRINGE) IV PRN ×6 (02:37→21:15)
[2021-09-25] MEDS: DIAZEPAM INJ 10 MG/2 ML (VALIUM) SYR IVP PRN ×2 (05:01→19:37)
[2021-09-25 05:41] LABS: BASOPHILS % (AUTO) 0 % (0-10); EOSINOPHILS % (AUTO) 0 % (0-10); HEMATOCRIT 34 % (40-54); HEMOGLOBIN 11.2 g/dL (13.3-17.7); LYMPHOCYTES # (AUTO) 0.9 10^3/uL (1.0-4.0); LYMPHOCYTES % (AUTO) 12 % (12-44); MEAN CORPUSCULAR HEMOGLOBIN 36 pg (25-34); MEAN CORPUSCULAR HGB CONC 33 g/dL (32-36); MEAN CORPUSCULAR VOLUME 107 fL (80-99); MEAN PLATELET VOLUME 8.5 fL (9.0-12.2); MONOCYTES # (AUTO) 0.8 10^3/uL (0.0-1.0); MONOCYTES % (AUTO) 11 % (0-12); NEUTROPHILS # (AUTO) 5.6 10^3/uL (1.8-7.8); NEUTROPHILS % (AUTO) 77 % (42-75); PLATELET COUNT 189 10^3/uL (130-400); WHITE BLOOD COUNT 7.3 10^3/uL (4.3-11.0)
[2021-09-25 05:56] LABS: ALBUMIN 3.5 GM/DL (3.2-4.5); POTASSIUM 4.3 MMOL/L (3.6-5.0)
[2021-09-25 05:58] LABS: CALCIUM 8.4 MG/DL (8.5-10.1)
[2021-09-25 05:59] LABS: TOTAL PROTEIN 6.3 GM/DL (6.4-8.2)
[2021-09-25 06:01] LABS: BILIRUBIN,TOTAL 0.7 MG/DL (0.1-1.0)
[2021-09-25 06:02] LABS: CREATININE SERUM 0.68 MG/DL (0.60-1.30); PHOSPHORUS 4.2 MG/DL (2.3-4.7)
[2021-09-25 06:05] LABS: MAGNESIUM 1.8 MG/DL (1.6-2.4)
[2021-09-25] MEDS: POTASSIUM CL 10MEQ/50ML IVPB 50 ML IV SCH (06:10)
[2021-09-25] MEDS: KCL 20 MEQ TAB (K-DUR) PO SCH (06:10)
[2021-09-25] MEDS: MAGNESIUM 1 GM/100 ML IVPB 100 ML IV SCH (06:10)
[2021-09-25] MEDS: THIAMINE 100 MG (VITAMIN B-1) TAB PO SCH (06:11)
[2021-09-25] MEDS: MULTIVIT W/MINERALS TAB (THERAGRAN M) PO SCH (06:11)
[2021-09-25] MEDS ORDERED: LIDOCAINE PF 2% 5 ML (XYLOCAINE) VIAL ONE (07:58)
[2021-09-25] MEDS ORDERED: SUCCINYLCHOLINE INJ 100 MG/5 ML SYR/VIAL ONE (07:58)
[2021-09-25] MEDS ORDERED: proPOfol 200 MG/20 ML (DIPRIVAN) VIAL IV ONE (07:58)
[2021-09-25] MEDS ORDERED: MIDAZOLAM 2 MG/2 ML (VERSED) VIAL ONE (07:59)
[2021-09-25] MEDS ORDERED: fentaNYL INJ 100 MCG/2 ML AMP ONE ×2 (07:59→10:19)
[2021-09-25] MEDS ORDERED: LACTATED RINGERS 1,000 ML IV PRN (08:00)
[2021-09-25] MEDS ORDERED: ceFAZolin INJECTION 1,000 MG VIAL IV ONE (08:15)
--- NOTE | 2021-09-25 08:17 | Consultation - Ortho ---
Consult - Ortho Subjective Date of Exam 09/25/21 Chief Complaint Right Hip Pain HPI/Events since last exam Fall yesterday, found down by , seen in ER, found to have comminuted, displaced right hip fracture, intoxicated Medical, Surgical History Surgery/Hospitalization HX: BY-PASS, 9 STENTS, ABD SURG, Surgeries: Yes (CABG,PANCREAS SURGERY,VASECTOMY, STENTS) Abdominal, Cardiac, CABG, Coronary Stent, Vasectomy Respiratory: Yes COPD, Emphysema Currently Using CPAP: No Currently Using BIPAP: No Cardiac: Yes Coronary Artery Disease, Heart Attack, High Cholesterol, Hypertension Neurological: No Reproductive Disorders: No Genitourinary: No Gastrointestinal: Yes Gastroesophageal Reflux, Esophageal Varices, Irritable Bowel Musculoskeletal: Yes (CHRONIC NECK AND BACK PAIN ) Degenerate Disk Disease, Chronic Back Pain, Fractures Endocrine: No HEENT: Yes Loss of Vision: Denies Hearing Impairment: Denies Cancer: No Psychosocial: Yes Anxiety, Depression Integumentary: No Blood Disorders: No Social History + alcohol Family History noncontributory Review of Systems - Allergies: Coded Allergies: No Known Drug Allergies (Unverified , 12/12/17) Home Meds Active Scripts Cephalexin (Cephalexin) 500 Mg Tablet, 500 MG PO BID, #10 TAB Prov:ANTONI SHERMAN MD 09/08/21 Metoprolol Tartrate (Metoprolol Tartrate) 25 Mg Tablet, 25 MG PO BID, #60 TAB Prov:ANTONI SHERMAN MD 09/08/21 Isosorbide Mononitrate (Isosorbide Mononitrate ER) 30 Mg Tab.er.24h, 30 MG PO DAILY, #30 TAB Prov:ANTONI SHERMAN MD 09/08/21 Clopidogrel Bisulfate (Clopidogrel) 75 Mg Tablet, 75 MG PO DAILY, #30 TAB Prov:ANTONI SHERMAN MD 09/08/21 Diltiazem HCl (Diltiazem 24Hr ER) 120 Mg Cap.er.24h, 120 MG PO DAILY, #30 CAP Prov:ANTONI SHERMAN MD 09/08/21 Apixaban (Eliquis) 5 Mg Tablet, 5 MG PO BID, #60 TAB Prov:ANTONI SHERMAN MD 09/08/21 Reported Medications Albuterol Sulfate (Albuterol Sulfate) 2.5 Mg/0.5 Ml Vial.neb, 2.5 MG INH Q6H PRN for SHORTNESS OF BREATH, EACH 09/07/21 Albuterol Sulfate (PROAIR HFA) 1 Puff Puff, 2 PUFF IH Q4H PRN for SHORTNESS OF BREATH, EA 09/07/21 Objective Exam Right Leg: some swelling, some shortening, positive DF of ankle, distal pulses palpable, sensation grossly intact to light touch Vital Signs Vital Signs Date Time Temp Pulse Resp B/P (MAP) Pulse Ox O2 Delivery O2 Flow Rate FiO2 09/25/21 08:00 92 15 152/114 97 Nasal Cannula 3.00 09/25/21 07:59 36.4 09/25/21 07:00 89 15 144/99 97 Nasal Cannula 3.00 09/25/21 07:00 90 09/25/21 06:00 90 15 165/101 96 Nasal Cannula 3.00 09/25/21 05:00 90 16 148/89 97 Nasal Cannula 3.00 09/25/21 04:00 88 19 148/86 97 Nasal Cannula 3.00 09/25/21 03:20 36.6 Nasal Cannula 09/25/21 03:13 98 Nasal Cannula 2.00 09/25/21 03:00 86 17 136/94 97 Nasal Cannula 3.00 09/25/21 02:00 87 16 137/91 97 Nasal Cannula 3.00 09/25/21 01:00 90 13 125/81 99 Nasal Cannula 3.00 09/25/21 01:00 91 09/25/21 00:00 90 17 125/75 99 Nasal Cannula 3.00 09/24/21 23:12 98 Nasal Cannula 2.00 09/24/21 23:11 36.8 Nasal Cannula 3.00 09/24/21 23:00 95 20 129/74 98 Nasal Cannula 3.00 09/24/21 21:45 96 16 130/87 100 Nasal Cannula 3.00 09/24/21 21:15 92 16 129/86 99 Nasal Cannula 3.00 09/24/21 20:45 92 26 143/78 99 Nasal Cannula 3.00 09/24/21 20:30 92 17 105/71 100 Nasal Cannula 3.00 09/24/21 20:21 90 09/24/21 20:15 96 23 110/91 100 Nasal Cannula 3.00 09/24/21 20:00 96 23 105/61 100 Nasal Cannula 3.00 09/24/21 19:58 98 Nasal Cannula 2.00 09/24/21 19:58 36.2 09/24/21 19:42 96 20 113/79 95 Nasal Cannula 2.00 09/24/21 19:07 36.8 09/24/21 18:22 36.8 09/24/21 17:47 36.8 09/24/21 17:33 36.8 111 28 146/118 (127) 99 Nasal Cannula 3.00 09/24/21 17:30 99 Nasal Cannula 3.00 I & O 09/25/21 07:00 Intake Total 3030 ml Output Total 900 ml Balance 2130 ml Lab Results Laboratory Tests 09/24/21 17:41: White Blood Count 6.7, Red Blood Count 3.83L, Hemoglobin 13.7, Hematocrit 39L, Mean Corpuscular Volume 102H, Mean Corpuscular Hemoglobin 36H, Mean Corpuscular Hemoglobin Concent 35, Red Cell Distribution Width 13.1, Platelet Count 224, Mean Platelet Volume 8.2L, Prothrombin Time 12.5, INR Comment 0.9, Activated Partial Thromboplast Time 27, Sodium Level 136, Potassium Level 4.1, Chloride Level 97L, Carbon Dioxide Level 24, Anion Gap 15H, Blood Urea Nitrogen 6L, Creatinine 0.69, Estimat Glomerular Filtration Rate 100, BUN/Creatinine Ratio 9, Glucose Level 104, Calcium Level 9.0, Total Bilirubin 0.5, Direct Bilirubin 0.2, Indirect Bilirubin 0.3, Aspartate Amino Transf (AST/SGOT) 36H, Alanine Aminotransferase (ALT/SGPT) 22, Alkaline Phosphatase 77, Total Protein 7.3, Albumin 4.0, Amylase Level 39, Lipase 25, Serum Alcohol 352*H 09/24/21 18:28: Influenza Type A (RT-PCR) Not Detected, Influenza Type B (RT-PCR) Not Detected, SARS-CoV-2 RNA (RT-PCR) Not Detected 09/24/21 18:40: Urine Color YELLOW, Urine Clarity CLEAR, Urine pH 7.0, Urine Specific [place] <=1.005, Urine Protein NEGATIVE, Urine Glucose (UA) NEGATIVE, Urine Ketones NEGATIVE, Urine Nitrite NEGATIVE, Urine Bilirubin NEGATIVE, Urine Urobilinogen 0.2, Urine Leukocyte Esterase NEGATIVE, Urine RBC (Auto) TRACE-IH, Urine RBC RARE, Urine WBC NONE, Urine Squamous Epithelial Cells RARE, Urine Crystals NONE, Urine Bacteria TRACE, Urine Casts NONE, Urine Mucus NEGATIVE, Urine Culture Indicated NO, Urine Opiates Screen NEGATIVE, Urine Oxycodone Screen NEGATIVE, Urine Methadone Screen NEGATIVE, Urine Propoxyphene Screen NEGATIVE, Urine Barbiturates Screen NEGATIVE, Ur Tricyclic Antidepressants Screen NEGATIVE, Urine Phencyclidine Screen NEGATIVE, Urine Amphetamines Screen NEGATIVE, Urine Methamphetamines Screen NEGATIVE, Urine Benzodiazepines Screen NEGATIVE, Urine Cocaine Screen NEGATIVE, Urine Cannabinoids Screen NEGATIVE 09/24/21 21:30: White Blood Count 8.5, Red Blood Count 3.32L, Hemoglobin 11.7L, Hematocrit 35L, Mean Corpuscular Volume 104H, Mean Corpuscular Hemoglobin 35H, Mean Corpuscular Hemoglobin Concent 34, Red Cell Distribution Width 13.2, Platelet Count 213, Mean Platelet Volume 8.5L, Immature Granulocyte % (Auto) 1, Neutrophils (%) (Auto) 87H, Lymphocytes (%) (Auto) 7L, Monocytes (%) (Auto) 6, Eosinophils (%) (Auto) 0, Basophils (%) (Auto) 0, Neutrophils # (Auto) 7.3, Lymphocytes # (Auto) 0.6L, Monocytes # (Auto) 0.5, Eosinophils # (Auto) 0.0, Basophils # (Auto) 0.0, Immature Granulocyte # (Auto) 0.1, Neutrophils % (Manual) 86, Lymphocytes % (Manual) 9, Monocytes % (Manual) 5, Clumped Platelets , Blood Morphology Comment NORMAL 09/24/21 23:17: Glucometer 108 09/25/21 05:25: White Blood Count 7.3, Red Blood Count 3.15L, Hemoglobin 11.2L, Hematocrit 34L, Mean Corpuscular Volume 107H, Mean Corpuscular Hemoglobin 36H, Mean Corpuscular Hemoglobin Concent 33, Red Cell Distribution Width 13.3, Platelet Count 189, Mean Platelet Volume 8.5L, Immature Granulocyte % (Auto) 1, Neutrophils (%) (Auto) 77H, Lymphocytes (%) (Auto) 12, Monocytes (%) (Auto) 11, Eosinophils (%) (Auto) 0, Basophils (%) (Auto) 0, Neutrophils # (Auto) 5.6, Lymphocytes # (Auto) 0.9L, Monocytes # (Auto) 0.8, Eosinophils # (Auto) 0.0, Basophils # (Auto) 0.0, Immature Granulocyte # (Auto) 0.0, Sodium Level 140, Potassium Level 4.3, Chloride Level 103, Carbon Dioxide Level 19L, Anion Gap 18H, Blood Urea Nitrogen 8, Creatinine 0.68, Estimat Glomerular Filtration Rate 100, BUN/Creatinine Ratio 12, Glucose Level 104, Calcium Level 8.4L, Corrected Calcium 8.8, Phosphorus Level 4.2, Magnesium Level 1.8, Total Bilirubin 0.7, Aspartate Amino Transf (AST/SGOT) 31, Alanine Aminotransferase (ALT/SGPT) 20, Alkaline Phosphatase 71, Total Protein 6.3L, Albumin 3.5 Imaging Views of the right femur and the pelvis were reviewed from PACS and demonstrated a comminuted, displaced right intertrochanteric femur fracture Assessment and Plan Assessment Right Intertrochanteric Femur Fracture Problem List Right Intertrochanteric Femur Fracture Plan I have recommend reduction and fixation of the right hip fracture. Nature of the procedure and the postoperative course were discussed. Risks and benefits were discussed. Will plan to proceed this AM. Final Diagonsis Right Intertrochanteric Femur Fracture Level of the visit: Level 3 (preop) DARIUS MARROQUIN MD Sep 25, 2021 08:17
[2021-09-25] MEDS: FOLIC ACID 1 MG TAB PO SCH (09:00)
[2021-09-25] MEDS: SENNOSIDES 8.6 MG (SENOKOT) TAB PO SCH ×2 (09:00→20:02)
[2021-09-25] MEDS: MAGNESIUM OXIDE (MAG-OX)400 MG TAB PO SCH ×2 (09:00→20:02)
[2021-09-25] MEDS: DOCUSATE SODIUM 100 MG (COLACE) CAP PO SCH ×2 (09:00→20:02)
[2021-09-25] MEDS ORDERED: meTOprolol 5 MG/5 ML (LOPRESSOR) VIAL ONE (09:10)
[2021-09-25] MEDS ORDERED: ONDANSETRON 4 MG/2 ML (SDV) Z0FRAN ONE (09:30)
[2021-09-25] MEDS ORDERED: PHENYLEPHRINE 100 MCG/ML 10 ML (ANESTHESIA) SYR ONE (09:31)
[2021-09-25] MEDS ORDERED: SEVOFLURANE (ULTANE) 15 ML INHAL SOLN ONE (09:31)
--- NOTE | 2021-09-25 10:03 | Operative Report - Ortho ---
Operative Report Surgeon (s)/Manufactured Buildings Repairer (s) Surgeon DARIUS MARROQUIN MD Manufactured Buildings Repairer n/a Pre-Operative Diagnosis Right Intertrochanteric Femur Fracture Post-Operative Diagnosis same Operative Report Date of Procedure: Sep 25, 2021 Name of Procedure Performed: Intramedullary Nailing of Right Intertrochanteric Femur Fracture Description & Findings After obtaining informed consent and marking the patient in the preoperative holding area, the patient was administered IV antibiotics and taken to the operating room. Anesthesia was induced. Patient was transferred to the fracture table. Surgical timeout was taken. The right lower extremity was placed in the traction spar and the left was placed in the well leg odell. Reduction was performed using traction and rotation. The right lower extremity was prepped and draped in the usual sterile fashion. Incision was made just proximal to the greater trochanter. Blunt dissection was performed down to the tip of the trochanter. A guide wire was placed through a trochanteric entry point. Position of the wire was confirmed using C-arm. An entry reamer was then placed over the guidewire and reamed to the level of the lesser trochanter. A trochanteric gamma nail with a 125 degree neck angle was selected and assembled on the back table. Nail was inserted through the trochanteric entry point and seated by hand. Position of the nail was confirmed using C-arm. A guide wire was placed for the cephalomedullary screw. Version of the wire was obtained on the lateral. Measurement was taken and the reamer was set to 110 mm. Reamer was used over the guidewire and then the cephalomedullary screw was placed. Position of the cephalomedullary screw was confirmed on C-arm. Set screw was then tightened onto the cephalomedullary screw and then backed off 1/8 turn. Attention was then turned to the distal screw and using the provided guides, a 40 mm screw was placed through the static portion of the distal slot. Final C arm images were obtained, demonstrated appropriate placement of hardware with adequate reduction, and were transferred to PACS. Incision sites were irrigated with normal saline. Closed subcutaneously with 2- 0 vicryl and skin was closed with petty. Dressed with xeroform, 4x4s, ABD, and tape. Patient tolerated the procedure well and was stable to the recovery room. Estimated Blood Loss 150 mL Specimen(s) collected/removed None DARIUS MARROQUIN MD Sep 25, 2021 10:03
[2021-09-25] MEDS ORDERED: fentaNYL INJ 100 MCG/2 ML AMP IVP ONE (10:15)
[2021-09-25] MEDS ORDERED: ONDANSETRON 4 MG/2 ML (SDV) Z0FRAN IVP PRN (10:15)
--- NOTE | 2021-09-25 10:18 | Anesthesia-General Post-Op ---
General Patient Condition Mental Status/LOC: Same as Preop Cardiovascular: Satisfactory Nausea/Vomiting: Absent Respiratory: Satisfactory Pain: Controlled Complications: Absent Post Op Complications Complications None Follow Up Care/Instructions Patient Instructions None needed. Anesthesia/Patient Condition Patient Condition Patient is doing well, no complaints, stable vital signs, no apparent adverse anesthesia problems. No complications reported per nursing. MICHELINE ALICEA CRNA Sep 25, 2021 10:18
--- NOTE | 2021-09-25 11:12 | Tele-ICU Progress Note ---
Subjective Date Seen by a Provider: Sep 25, 2021 Time Seen by a Provider: 11:07 Subjective/Events-last exam Available chart/vitals/labs/images reviewed. Video assessment done using telemetry ICU camera, rest of exam as per RN. Discussion with the RN, exam as per RN. Hospital course He is a 70-year-old male with past medical history of alcohol abuse found on the floor by his after he drank 12 pack of beer. Apparently he was not able to get up. Initially he was unconscious and he could not tell exactly what happened when he became conscious. He was brought to the emergency room and further evaluation with various x-rays revealed that he has a right hip fracture. His alcohol level is found to be 352. I have video visited him nearly at today but at that time he already left for operating room. I have visited him by a video postoperatively at which time he is in moderate pain unable to communicate he is stumbling in his words. He has a history of quadruple bypass in the remote past. There is no Tele icu consult but have made a video surveillance per protocol. Review of Systems ROS PER RN Sepsis Event Evaluation Height, Weight, BMI Height: 5'" Weight: 176lbs. 1.6oz. 79.518477uq; 24.38 BMI Method: Exam Exam Patient acknowledged, consented, and participated in this virtual visit which was conducted using real time audio/video Vital Signs Date Time Temp Pulse Resp B/P (MAP) Pulse Ox O2 Delivery O2 Flow Rate FiO2 09/25/21 10:50 36.4 18 171/116 (134) 96 Nasal Cannula 2.00 09/25/21 10:50 Nasal Cannula 2.00 09/25/21 10:43 Room Air 09/25/21 10:40 18 191/110 (137) 93 Room Air 09/25/21 10:36 Room Air 09/25/21 10:33 OxyMask 2.00 09/25/21 10:30 18 195/109 (137) 98 OxyMask 2.00 09/25/21 10:28 OxyMask 4.00 09/25/21 10:20 20 189/114 (139) 100 OxyMask 4.00 09/25/21 10:20 OxyMask 4.00 09/25/21 10:15 OxyMask 4.00 09/25/21 10:10 20 181/121 (141) 100 OxyMask 6.00 09/25/21 10:06 20 170/104 (126) 100 OxyMask 6.00 09/25/21 10:00 OxyMask 6.00 09/25/21 09:58 36.2 20 173/109 (130) 100 OxyMask 6.00 09/25/21 09:58 OxyMask 6.00 09/25/21 08:01 Nasal Cannula 3.00 09/25/21 08:00 97 Nasal Cannula 2.00 09/25/21 08:00 92 15 152/114 97 Nasal Cannula 3.00 09/25/21 07:59 36.4 09/25/21 07:00 89 15 144/99 97 Nasal Cannula 3.00 09/25/21 07:00 90 09/25/21 06:00 90 15 165/101 96 Nasal Cannula 3.00 09/25/21 05:00 90 16 148/89 97 Nasal Cannula 3.00 09/25/21 04:00 88 19 148/86 97 Nasal Cannula 3.00 09/25/21 03:20 36.6 Nasal Cannula 09/25/21 03:13 98 Nasal Cannula 2.00 09/25/21 03:00 86 17 136/94 97 Nasal Cannula 3.00 09/25/21 02:00 87 16 137/91 97 Nasal Cannula 3.00 09/25/21 01:00 90 13 125/81 99 Nasal Cannula 3.00 09/25/21 01:00 91 09/25/21 00:00 90 17 125/75 99 Nasal Cannula 3.00 09/24/21 23:12 98 Nasal Cannula 2.00 09/24/21 23:11 36.8 Nasal Cannula 3.00 09/24/21 23:00 95 20 129/74 98 Nasal Cannula 3.00 09/24/21 21:45 96 16 130/87 100 Nasal Cannula 3.00 09/24/21 21:15 92 16 129/86 99 Nasal Cannula 3.00 09/24/21 20:45 92 26 143/78 99 Nasal Cannula 3.00 09/24/21 20:30 92 17 105/71 100 Nasal Cannula 3.00 09/24/21 20:21 90 09/24/21 20:15 96 23 110/91 100 Nasal Cannula 3.00 09/24/21 20:00 96 23 105/61 100 Nasal Cannula 3.00 09/24/21 19:58 98 Nasal Cannula 2.00 09/24/21 19:58 36.2 09/24/21 19:42 96 20 113/79 95 Nasal Cannula 2.00 09/24/21 19:07 36.8 09/24/21 18:22 36.8 09/24/21 17:47 36.8 09/24/21 17:33 36.8 111 28 146/118 (127) 99 Nasal Cannula 3.00 09/24/21 17:30 99 Nasal Cannula 3.00 I & O 09/25/21 07:00 Intake Total 3030 ml Output Total 900 ml Balance 2130 ml Height & Weight Height: 5'11.00" Weight: 176lbs. 1.6oz. 79.780995zb; 24.38 BMI Method: General Appearance: Mild Distress Capillary Refill: Less Than 3 Seconds Other comments PE PER RN Results Lab Laboratory Tests 09/24/21 17:41 09/24/21 21:30 09/25/21 05:25 Assessment/Plan Assessment/Plan 1. Alcohol intoxication and a fall 2. Right hip fracture secondary to fall 3. Alcohol abuse disorder. 4. History of coronary artery disease. 5. hypertension uncontrolled Recommendations 1. Patient already had IM nailing through the neck of the femur. 2. DVT prophylaxis and ulcer prophylaxis. 3. Monitor for any alcohol withdrawal syndrome. 4. We will give thiamine and folic acid 5. Perioperative pain management with iv morphine 6. iv labetalol for hypertension Critical Care: Critically Ill Patient Time spent with patient (mins): 20 BLANK ROBERTSON MD Sep 25, 2021 11:12
--- NOTE | 2021-09-25 11:28 | Diagnostic Imaging Report ---
INDICATION: Hip fracture. Intraoperative pinning. EXAMINATION: Fluoroscopic evaluation of the right hip from 09/25/2021 FINDINGS: Multiple fluoroscopic images of the right hip are provided with an intramedullary carlo and intervening screws in place. Fracture is in good anatomic alignment. A tiny screw is seen inferior to the ischial tuberosity. This is not present on the previous radiographs from 09/24/2021 90.5 seconds fluoroscopy time used. IMPRESSION: 1. Intraoperative findings as described above with a small nonspecific screw just inferior to the right ischial tuberosity. Correlate clinically. Please see separate surgical report. Dictated by: Dictated on workstation # [id number]
--- NOTE | 2021-09-25 11:40 | History & Physical-Hospitalist ---
History of Present Illness HPI/Chief Complaint CC: Right hip fracture with alcohol intoxication HPI: This is a 70yoWM known alcoholic with recent h/o new AF who presented to the ER following a fall while intoxicated and was found to have a right hip fracture which has been repaired by Dr Johns this morning. Alcohol withdrawal protocol maintained. Patient reports pain. Dr Whitehead consulted. Source: patient, RN/MD Exam Limitations: no limitations Date Seen 09/25/21 Time Seen by a Provider: 11:40 Attending Physician Gayle Orr MD PCP Admitting Physician: Hafsa Judge DO Attending Physician: Hafsa Judge DO Referring Physician Date of Admission Sep 24, 2021 at 18:53 Home Medications & Allergies Home Medications Reviewed patient Home Medication Reconciliation performed by pharmacy medication reconciliations electrical design technician and/or nursing. Patients Allergies have been reviewed. Allergies Allergies Coded Allergies No Known Drug Allergies ([place]04/2/18) Past Arfeuwr-[id number]-Aeivhh Hx Patient Social History Marrital Status: Employed/Student: retired Tobacco Use?: No Smoking Status: Former Smoker Substance use?: No Alcohol Use?: Yes Alcohol type: Beer Alcohol Frequency: Daily Immunizations Up To Date Second COVID19 Vaccination Joseph: TWO SHOTS Tetanus Booster (TDap): Unknown Date of Pneumonia Vaccine: Aug 15, 2016 Seasonal Allergies Seasonal Allergies: No Current Status Advance Directives: No Primary Language: Ukrainian Preferred Spoken Language: Ukrainian Implanted or Applied Medical D: Stents Past Medical History Surgeries: Abdominal, Cardiac, CABG, Coronary Stent, Vasectomy COPD, Emphysema Currently Using CPAP: No Currently Using BIPAP: No Coronary Artery Disease, Heart Attack, High Cholesterol, Hypertension Gastroesophageal Reflux, Esophageal Varices, Irritable Bowel Degenerate Disk Disease, Chronic Back Pain, Fractures Loss of Vision: Denies Hearing Impairment: Denies Anxiety, Depression Blood Disorders: No Family Medical History No Pertinent Family Hx Review of Systems Constitutional: see HPI, malaise, weakness EENTM: no symptoms reported Respiratory: no symptoms reported Cardiovascular: no symptoms reported Gastrointestinal: no symptoms reported Genitourinary: no symptoms reported Musculoskeletal: joint pain Skin: no symptoms reported Psychiatric/Neurological: No Symptoms Reported All Other Systems Reviewed Negative Unless Noted: Yes Physical Exam Physical Exam Vital Signs Vital Signs - First Documented 09/24/21 09/24/21 09/25/21 17:30 17:33 14:27 Temp 36.8 Pulse 111 Resp 28 B/P (MAP) 146/118 (127) Pulse Ox 99 O2 Delivery Nasal Cannula O2 Flow Rate 3.00 FiO2 32 Capillary Refill : Less Than 3 SecondsLess Than 3 Seconds Height, Weight, BMI Height: 5'11.00" Weight: 176lbs. 1.6oz. 79.203092nq; 24.38 BMI Method: General Appearance: No Apparent Distress, Chronically ill Eyes: Right Eye Normal Inspection, Right Eye PERRL HEENT: PERRL/EOMI, Normal ENT Inspection, Pharynx Normal, Moist Mucous Membranes Neck: Full Range of Motion, Normal Inspection, Non Tender Respiratory: Chest Non Tender, Lungs Clear, Normal Breath Sounds, No Accessory Muscle Use, No Respiratory Distress Cardiovascular: No Edema, No Gallop, No JVD, No Murmur, Normal Peripheral Pulses, Irregularly Irregular Gastrointestinal: Normal Bowel Sounds, No Organomegaly, No Pulsatile Mass, Non Tender, Soft Back: Normal Inspection, No CVA Tenderness, No Vertebral Tenderness Extremity: Normal Capillary Refill, Normal Inspection, Normal Range of Motion, Non Tender, No Calf Tenderness, No Pedal Edema Neurologic/Psychiatric: Alert, Oriented x3, No Motor/Sensory Deficits, general store manager II- XII Norm as Tested, Depressed Affect, Motor Weakness (right leg) Skin: Normal Color, Warm/Dry Lymphatic: No Adenopathy Results Results/Procedures Labs Laboratory Tests 09/24/21 17:41 09/24/21 21:30 09/25/21 05:25 Patient resulted labs reviewed. Assessment/Plan Admission Diagnosis Assessment: Right hip fracture Fall Alcoholism AF CAD CABG hx HTN HLP Former smoker Plan: Pain control ETOH withdrawal protocol Admission Status: Inpatient Order (span 2 midnights) Reason for Inpatient Admission: hip fx Diagnosis/Problems Diagnosis/Problems (1) Closed right hip fracture (2) Alcohol intoxication in active alcoholic (3) Atrial fibrillation with RVR (4) CAD (coronary artery disease) Status: Chronic (5) Alcoholism Status: Acute Clinical Quality Measures DVT/VTE Risk/Contraindication: Contraindications-Pharm: Other *list below* Other: surg HAFSA JUDGE DO Sep 25, 2021 11:40
[2021-09-25] MEDS: LABETALOL HCL 20 MG/4 ML VIAL IV PRN ×4 (12:03→19:43)
[2021-09-25] MEDS: THIAMINE INJECTION 100 MG, FOLIC ACID INJECTION 1 MG, MAGNESIUM SULFATE 2 GM, VITAMIN M... IV SCH ×5 (12:07)
--- NOTE | 2021-09-25 12:28 | Physical Therapy Progress Note ---
Therapy Progress Note PT evaluation attempted. Patient was in pain and had just returned to room from surgery. Patient will be seen in the morning for evaluation. JONATHON ASENCIO PT Sep 25, 2021 12:28
[2021-09-25] MEDS: ONDANSETRON 4 MG/2 ML (SDV) Z0FRAN IV PRN ×2 (14:28→19:37)
[2021-09-25] MEDS: RT-ALBUTEROL/IPRATROPIUM 3 ML (DUONEB) VIAL INH SCH ×2 (15:14→20:41)
--- NOTE | 2021-09-25 16:35 | Consultation-Cardiology ---
HPI-Cardiology Cardiology Consultation: Date of Consultation 09/25/21 Time Seen by a Provider: 13:45 Date of Admission Attending Physician Gayle Orr MD Admitting Physician Admitting Physician: Hafsa Key DO Attending Physician: Hafsa Key DO Consulting Physician FLORENCE HO MD, MA, FACP, FACC, [facility], CCDS Physician requesting consult: Dr Key HPI: Chief Complaint: Reason for Card consult: CAD 70 yo man who was found lying in the kitchen by his after having drunk a large amount of alcohol. He was found to have R hip fracture for which he underwent nailing. He was admitted to Dr Key's service to the ICU on 09/24/21. Dr Key has asked us to see him because of a h/o CAD. He does not report cp. He denies shortness of breath or swelling or palp. He does not recall events of yesterday. Review of Systems-Cardiology Review of Systems Constitutional: malaise; No weight loss, No weight gain Eyes: No vision change Ears/Nose/Throat: No nasal drainage, No recent hearing loss Respiratory: As described under HPI Cardiovascular: As described under HPI Gastrointestinal: No nausea, No vomiting Genitourinary: No dysuria, No hematuria Musculoskeletal: back pain (chronic) Skin: rash, ulcerations Psychiatric/Neurological: No seizure, No focal weakness Hematologic: No bleeding abnormalities EPS-Dhpitj-Adajyf Hx Patient Social History Smoking Status: Former Smoker 2nd Hand Smoke Exposure: No Have you traveled recently?: No Alcohol Use?: Yes Immunizations Up To Date Tetanus Booster (TDap): Unknown Date of Pneumonia Vaccine: Aug 15, 2016 Past Medical History PMH As described under Assessment. Family Medical History Family Medical History: He does not report fam h/o early CAD Allergies and Home Medications Allergies Coded Allergies: No Known Drug Allergies (Unverified , 12/12/17) Patient Home Medication List Home Medication List Reviewed: Yes Albuterol Sulfate (Proair Hfa) 1 Puff Puff, 2 PUFF IH Q4H PRN for SHORTNESS OF BREATH, (Reported) Entered as Reported by: SUJATA COBOS on 09/07/21 1504 Albuterol Sulfate (Albuterol Sulfate) 2.5 Mg/0.5 Ml Vial.neb, 2.5 MG INH Q6H PRN for SHORTNESS OF BREATH, (Reported) Entered as Reported by: SUJATA COBOS on 09/07/21 1504 Apixaban (Eliquis) 5 Mg Tablet, 5 MG PO BID Prescribed by: ANTONI SHERMAN on 09/08/21 1158 Cephalexin (Cephalexin) 500 Mg Tablet, 500 MG PO BID Prescribed by: ANTONI SHERMAN on 09/08/21 1158 Clopidogrel Bisulfate (Clopidogrel) 75 Mg Tablet, 75 MG PO DAILY Prescribed by: ANTONI SHERMAN on 09/08/21 1158 Diltiazem HCl (Diltiazem 24Hr ER) 120 Mg Cap.er.24h, 120 MG PO DAILY Prescribed by: ANTONI SHERMAN on 09/08/21 1158 Isosorbide Mononitrate (Isosorbide Mononitrate ER) 30 Mg Tab.er.24h, 30 MG PO DA CHARLIE Prescribed by: ANTONI SHERMAN on 09/08/21 1158 Metoprolol Tartrate (Metoprolol Tartrate) 25 Mg Tablet, 25 MG PO BID Prescribed by: ANTONI SHERMAN on 09/08/21 1158 Physical Exam-Cardiology Physical Exam Vital Signs/I&O 09/25/21 09/25/21 09/25/21 09/25/21 05:00 06:00 07:00 07:00 Pulse 90 90 90 89 Resp 16 15 15 B/P (MAP) 148/89 165/101 144/99 Pulse Ox 97 96 97 O2 Delivery Nasal Cannula Nasal Cannula Nasal Cannula O2 Flow Rate 3.00 3.00 3.00 09/25/21 09/25/21 09/25/21 09/25/21 07:59 08:00 08:00 08:01 Temp 36.4 Pulse 92 Resp 15 B/P (MAP) 152/114 Pulse Ox 97 97 O2 Delivery Nasal Cannula Nasal Cannula Nasal Cannula O2 Flow Rate 3.00 2.00 3.00 09/25/21 09/25/21 09/25/21 09/25/21 09:58 09:58 10:00 10:00 Temp 36.2 Pulse 86 Resp 20 18 B/P (MAP) 173/109 (130) 176/118 Pulse Ox 100 100 O2 Delivery OxyMask OxyMask OxyMask Nasal Cannula O2 Flow Rate 6.00 6.00 6.00 3.00 09/25/21 09/25/21 09/25/21 09/25/21 10:06 10:10 10:15 10:20 Resp 20 20 B/P (MAP) 170/104 (126) 181/121 (141) Pulse Ox 100 100 O2 Delivery OxyMask OxyMask OxyMask OxyMask O2 Flow Rate 6.00 6.00 4.00 4.00 09/25/21 09/25/21 09/25/21 09/25/21 10:20 10:28 10:30 10:33 Resp 20 18 B/P (MAP) 189/114 (139) 195/109 (137) Pulse Ox 100 98 O2 Delivery OxyMask OxyMask OxyMask OxyMask O2 Flow Rate 4.00 4.00 2.00 2.00 09/25/21 09/25/21 09/25/21 09/25/21 10:36 10:40 10:43 10:50 Resp 18 B/P (MAP) 191/110 (137) Pulse Ox 93 O2 Delivery Room Air Room Air Room Air Nasal Cannula O2 Flow Rate 2.00 09/25/21 09/25/21 09/25/21 09/25/21 10:50 11:00 12:00 12:00 Temp 36.4 36.2 Pulse 90 91 Resp 18 30 B/P (MAP) 171/116 (134) 166/111 158/113 Pulse Ox 96 98 98 O2 Delivery Nasal Cannula Nasal Cannula Nasal Cannula O2 Flow Rate 2.00 3.00 3.00 09/25/21 09/25/21 09/25/21 09/25/21 12:00 13:00 13:00 14:00 Pulse 78 91 74 Resp 23 B/P (MAP) 152/98 121/94 Pulse Ox 99 98 98 O2 Delivery Nasal Cannula Nasal Cannula Nasal Cannula O2 Flow Rate 2.00 3.00 3.00 09/25/21 09/25/21 09/25/21 09/25/21 14:27 15:00 15:14 16:00 Temp 36.2 Pulse 91 76 82 Resp 16 20 B/P (MAP) 148/95 149/92 Pulse Ox 98 98 98 97 O2 Delivery Nasal Cannula Nasal Cannula Nasal Cannula O2 Flow Rate 3.00 2.00 3.00 FiO2 32 09/25/21 16:15 Pulse Ox 99 O2 Delivery Nasal Cannula O2 Flow Rate 2.00 09/25/21 00:00 Intake Total 2030 ml Output Total 250 ml Balance 1780 ml Capillary Refill : Less Than 3 SecondsLess Than 3 Seconds Constitutional: other (mildly confused at times, but appropriately responsive to most questions) HEENT: PERRL, EOMI; No xanthelasmas are seen Neck: carotid pulses are 2 + bilaterally, with good upstrokes Respiratory: No accessory muscle use; other (fair to good, bilateral air entry) Cardiovascular: regular rate-rhythm, S1 and S2, systolic murmur (soft LISA at card base) Gastrointestinal: No tender; soft; No guarding, No rebound; audible bowel sounds Extremities: No clubbing, No cyanosis, No significant edema Neurologic/Psychiatric: other (moves all limbs) Skin: normal color, warm/dry; No rash on exposed areas; other (healed scar of sternotomy) Data Review Labs Laboratory Tests 09/24/21 17:41: White Blood Count 6.7, Red Blood Count 3.83L, Hemoglobin 13.7, Hematocrit 39L, Mean Corpuscular Volume 102H, Mean Corpuscular Hemoglobin 36H, Mean Corpuscular Hemoglobin Concent 35, Red Cell Distribution Width 13.1, Platelet Count 224, Mean Platelet Volume 8.2L, Prothrombin Time 12.5, INR Comment 0.9, Activated Partial Thromboplast Time 27, Sodium Level 136, Potassium Level 4.1, Chloride Level 97L, Carbon Dioxide Level 24, Anion Gap 15H, Blood Urea Nitrogen 6L, Creatinine 0.69, Estimat Glomerular Filtration Rate 100, BUN/Creatinine Ratio 9, Glucose Level 104, Calcium Level 9.0, Total Bilirubin 0.5, Direct Bilirubin 0.2, Indirect Bilirubin 0.3, Aspartate Amino Transf (AST/SGOT) 36H, Alanine Aminotransferase (ALT/SGPT) 22, Alkaline Phosphatase 77, Total Protein 7.3, Albumin 4.0, Amylase Level 39, Lipase 25, Serum Alcohol 352*H 09/24/21 18:28: Influenza Type A (RT-PCR) Not Detected, Influenza Type B (RT-PCR) Not Detected, SARS-CoV-2 RNA (RT-PCR) Not Detected 09/24/21 18:40: Urine Color YELLOW, Urine Clarity CLEAR, Urine pH 7.0, Urine Specific [place] <=1.005, Urine Protein NEGATIVE, Urine Glucose (UA) NEGATIVE, Urine Ketones NEGATIVE, Urine Nitrite NEGATIVE, Urine Bilirubin NEGATIVE, Urine Urobilinogen 0.2, Urine Leukocyte Esterase NEGATIVE, Urine RBC (Auto) TRACE-IH, Urine RBC RARE, Urine WBC NONE, Urine Squamous Epithelial Cells RARE, Urine Crystals NONE, Urine Bacteria TRACE, Urine Casts NONE, Urine Mucus NEGATIVE, Urine Culture Indicated NO, Urine Opiates Screen NEGATIVE, Urine Oxycodone Screen NEGATIVE, Urine Methadone Screen NEGATIVE, Urine Propoxyphene Screen NEGATIVE, Urine Barbiturates Screen NEGATIVE, Ur Tricyclic Antidepressants Screen NEGATIVE, Urine Phencyclidine Screen NEGATIVE, Urine Amphetamines Screen NEGATIVE, Urine Methamphetamines Screen NEGATIVE, Urine Benzodiazepines Screen NEGATIVE, Urine Cocaine Screen NEGATIVE, Urine Cannabinoids Screen NEGATIVE 09/24/21 21:30: White Blood Count 8.5, Red Blood Count 3.32L, Hemoglobin 11.7L, Hematocrit 35L, Mean Corpuscular Volume 104H, Mean Corpuscular Hemoglobin 35H, Mean Corpuscular Hemoglobin Concent 34, Red Cell Distribution Width 13.2, Platelet Count 213, M zeenat Platelet Volume 8.5L, Immature Granulocyte % (Auto) 1, Neutrophils (%) (Aut o) 87H, Lymphocytes (%) (Auto) 7L, Monocytes (%) (Auto) 6, Eosinophils (%) (Auto) 0, Basophils (%) (Auto) 0, Neutrophils # (Auto) 7.3, Lymphocytes # (Auto) 0.6L, Monocytes # (Auto) 0.5, Eosinophils # (Auto) 0.0, Basophils # (Auto) 0.0, Immature Granulocyte # (Auto) 0.1, Neutrophils % (Manual) 86, Lymphocytes % (Manual) 9, Monocytes % (Manual) 5, Clumped Platelets , Blood Morphology Comment NORMAL 09/24/21 23:17: Glucometer 108 09/25/21 05:25: White Blood Count 7.3, Red Blood Count 3.15L, Hemoglobin 11.2L, Hematocrit 34L, Mean Corpuscular Volume 107H, Mean Corpuscular Hemoglobin 36H, Mean Corpuscular Hemoglobin Concent 33, Red Cell Distribution Width 13.3, Platelet Count 189, Mean Platelet Volume 8.5L, Immature Granulocyte % (Auto) 1, Neutrophils (%) (Auto) 77H, Lymphocytes (%) (Auto) 12, Monocytes (%) (Auto) 11, Eosinophils (%) (Auto) 0, Basophils (%) (Auto) 0, Neutrophils # (Auto) 5.6, Lymphocytes # (Auto) 0.9L, Monocytes # (Auto) 0.8, Eosinophils # (Auto) 0.0, Basophils # (Auto) 0.0, Immature Granulocyte # (Auto) 0.0, Sodium Level 140, Potassium Level 4.3, Chloride Level 103, Carbon Dioxide Level 19L, Anion Gap 18H, Blood Urea Nitrogen 8, Creatinine 0.68, Estimat Glomerular Filtration Rate 100, BUN/Creatinine Ratio 12, Glucose Level 104, Calcium Level 8.4L, Corrected Calcium 8.8, Phosphorus Level 4.2, Magnesium Level 1.8, Total Bilirubin 0.7, Aspartate Amino Transf (AST/SGOT) 31, Alanine Aminotransferase (ALT/SGPT) 20, Alkaline Phosphatase 71, Total Protein 6.3L, Albumin 3.5 09/25/21 12:04: Glucometer 110 Laboratory Tests 09/24/21 17:41 09/24/21 21:30 09/25/21 05:25 A/P-Cardiology Assessment/Admission Diagnosis CAD - reports h/o CABG several years ago in [place] - reports coronary intervention about 8 weeks ago in [place] On chronic OAC - presumably for PAF (pt does not recall reason) Ac alcohol intoxication R hip fracture following alcohol-related fall - s/p R hip surg on 09/25/21 Discussion and Recomendations * Please resume daily Plavix beginning today (if approved by Dr Key) due to h/o recent cor stenting * Obtain report of cor stenting from [place] where pt reports he had it done * Please resume Eliquis JOSE (if approved by Dr Key) because he is reported to have been on OAC chronically * Echo * Monitor labs closely Clinical Quality Measures DVT/VTE Risk/Contraindication: Contraindications-Pharm: Other *list below* Other: surg FLORENCE HO MD FACP [facility] Sep 25, 2021 16:35
[2021-09-25] MEDS ORDERED: CLOPIDOGREL 75 MG (PLAVIX) TABLET PO ONE (16:45)
[2021-09-25] MEDS: LORazepam 1 MG (ATIVAN) TAB PO PRN ×3 (17:30→21:15)
[2021-09-26] MEDS: LORazepam 1 MG (ATIVAN) TAB PO PRN ×4 (02:10→12:00)
[2021-09-26] MEDS: RT-ALBUTEROL/IPRATROPIUM 3 ML (DUONEB) VIAL INH SCH ×4 (03:01→22:34)
[2021-09-26] MEDS: LABETALOL HCL 20 MG/4 ML VIAL IV PRN ×2 (04:15→09:44)
[2021-09-26] MEDS: NS IV 1000 ML 1,000 ML IV SCH ×3 (05:10→21:27)
[2021-09-26] MEDS: morphine INJ 4 MG/ML 1 ML (VIAL/SYRINGE) IV PRN ×4 (05:56→19:38)
[2021-09-26 06:04] LABS: BASOPHILS % (AUTO) 0 % (0-10); EOSINOPHILS % (AUTO) 0 % (0-10); HEMATOCRIT 26 % (40-54); HEMOGLOBIN 8.5 g/dL (13.3-17.7); LYMPHOCYTES # (AUTO) 0.6 10^3/uL (1.0-4.0); LYMPHOCYTES % (AUTO) 6 % (12-44); MEAN CORPUSCULAR HEMOGLOBIN 36 pg (25-34); MEAN CORPUSCULAR HGB CONC 33 g/dL (32-36); MEAN CORPUSCULAR VOLUME 108 fL (80-99); MEAN PLATELET VOLUME 9.5 fL (9.0-12.2); MONOCYTES % (AUTO) 9 % (0-12); NEUTROPHILS # (AUTO) 8.9 10^3/uL (1.8-7.8); NEUTROPHILS % (AUTO) 85 % (42-75); PLATELET COUNT 165 10^3/uL (130-400); WHITE BLOOD COUNT 10.5 10^3/uL (4.3-11.0)
[2021-09-26 06:20] LABS: ALBUMIN 3.4 GM/DL (3.2-4.5)
[2021-09-26 06:21] LABS: CALCIUM 8.5 MG/DL (8.5-10.1)
[2021-09-26 06:22] LABS: TOTAL PROTEIN 6.1 GM/DL (6.4-8.2)
[2021-09-26 06:24] LABS: BILIRUBIN,TOTAL 1.2 MG/DL (0.1-1.0)
[2021-09-26 06:26] LABS: CREATININE SERUM 0.75 MG/DL (0.60-1.30); PHOSPHORUS 2.6 MG/DL (2.3-4.7)
[2021-09-26 06:29] LABS: MAGNESIUM 2.4 MG/DL (1.6-2.4)
--- NOTE | 2021-09-26 06:51 | Progress Note - Hospitalist ---
Subjective HPI/CC On Admission Date Seen by Provider: Sep 26, 2021 Time Seen by Provider: 11:30 CC: Right hip fracture with alcohol intoxication HPI: This is a 70yoWM known alcoholic with recent h/o new AF who presented to the ER following a fall while intoxicated and was found to have a right hip fracture which has been repaired by Dr Johns this morning. Alcohol withdrawal protocol maintained. Patient reports pain. Dr Whitehead consulted. Subjective/Events-last exam Patient complains of pain ATOH withdrawal is a challenge No nausea Review of Systems General: Fatigue Musculoskeletal: leg pain Objective Exam Vital Signs Vital Signs Date Time Temp Pulse Resp B/P (MAP) Pulse Ox O2 Delivery O2 Flow Rate FiO2 09/26/21 17:00 84 15 120/81 98 Nasal Cannula 2.00 09/26/21 15:43 35.2 09/25/21 14:27 32 Capillary Refill : Less Than 3 SecondsLess Than 3 Seconds General Appearance: No Apparent Distress, WD/WN, Chronically ill Respiratory: Lungs Clear, Normal Breath Sounds Cardiovascular: Regular Rate, Rhythm Neurologic/Psychiatric: Alert, Oriented x3 Results/Procedures Lab Laboratory Tests 09/26/21 04:53 Patient resulted labs reviewed. Assessment/Plan Assessment and Plan Assess & Plan/Chief Complaint Assessment: Right hip fracture Fall Alcoholism AF CAD CABG hx HTN HLP Former smoker Plan: Pain control ETOH withdrawal protocol Critical Care Critically Ill Patient Diagnosis/Problems Diagnosis/Problems (1) Closed right hip fracture (2) Alcohol intoxication in active alcoholic (3) Atrial fibrillation with RVR (4) CAD (coronary artery disease) Status: Chronic (5) Alcoholism Status: Acute Clinical Quality Measures DVT/VTE Risk/Contraindication: Contraindications-Pharm: Other *list below* Other: surg ALEXANDRA JUDGE DO Sep 26, 2021 06:51
[2021-09-26] MEDS: KCL 20 MEQ TAB (K-DUR) PO SCH (07:00)
[2021-09-26] MEDS: POTASSIUM CL 10MEQ/50ML IVPB 50 ML IV SCH (07:00)
[2021-09-26] MEDS: MAGNESIUM 1 GM/100 ML IVPB 100 ML IV SCH (07:00)
[2021-09-26] MEDS: SENNOSIDES 8.6 MG (SENOKOT) TAB PO SCH ×2 (07:54→19:38)
[2021-09-26] MEDS: APIXABAN 5 MG (ELIQUIS) TABLET PO SCH ×2 (07:54→19:38)
[2021-09-26] MEDS: MAGNESIUM OXIDE (MAG-OX)400 MG TAB PO SCH ×2 (07:54→19:38)
[2021-09-26] MEDS: FOLIC ACID 1 MG TAB PO SCH (07:54)
[2021-09-26] MEDS: THIAMINE 100 MG (VITAMIN B-1) TAB PO SCH (07:54)
[2021-09-26] MEDS: DOCUSATE SODIUM 100 MG (COLACE) CAP PO SCH ×2 (07:54→19:38)
[2021-09-26] MEDS: MULTIVIT W/MINERALS TAB (THERAGRAN M) PO SCH (07:55)
[2021-09-26] MEDS: CLOPIDOGREL 75 MG (PLAVIX) TABLET PO SCH (07:55)
[2021-09-26] MEDS: ONDANSETRON 4 MG/2 ML (SDV) Z0FRAN IV PRN (08:02)
[2021-09-26] MEDS: THIAMINE INJECTION 100 MG, FOLIC ACID INJECTION 1 MG, MAGNESIUM SULFATE 2 GM, VITAMIN M... IV SCH ×5 (08:30)
--- NOTE | 2021-09-26 08:54 | Progress Note - Ortho ---
Progress Note Subjective Date of Exam 09/26/21 Chief Complaint POD #1 R IT Femur Fx s/p IM Nailing HPI/Events since last exam eating breakfast, appears comfortable, gives short but appropriate responses to questions Review of Systems - Allergies: Coded Allergies: No Known Drug Allergies (Unverified , 12/12/17) Home Meds Active Scripts Cephalexin (Cephalexin) 500 Mg Tablet, 500 MG PO BID, #10 TAB Prov:ANTONI SHERMAN MD 09/08/21 Metoprolol Tartrate (Metoprolol Tartrate) 25 Mg Tablet, 25 MG PO BID, #60 TAB Prov:ANTONI SHERMAN MD 09/08/21 Isosorbide Mononitrate (Isosorbide Mononitrate ER) 30 Mg Tab.er.24h, 30 MG PO DAILY, #30 TAB Prov:ANTONI SHERMAN MD 09/08/21 Clopidogrel Bisulfate (Clopidogrel) 75 Mg Tablet, 75 MG PO DAILY, #30 TAB Prov:ANTONI SHERMAN MD 09/08/21 Diltiazem HCl (Diltiazem 24Hr ER) 120 Mg Cap.er.24h, 120 MG PO DAILY, #30 CAP Prov:ANTONI SHERMAN MD 09/08/21 Apixaban (Eliquis) 5 Mg Tablet, 5 MG PO BID, #60 TAB Prov:ANTONI SHERMAN MD 09/08/21 Reported Medications Albuterol Sulfate (Albuterol Sulfate) 2.5 Mg/0.5 Ml Vial.neb, 2.5 MG INH Q6H PRN for SHORTNESS OF BREATH, EACH 09/07/21 Albuterol Sulfate (PROAIR HFA) 1 Puff Puff, 2 PUFF IH Q4H PRN for SHORTNESS OF BREATH, EA 09/07/21 Objective Exam Right Hip: Dressing C/D/I, +DF of ankle, no s/s of DVT Vital Signs Vital Signs Date Time Temp Pulse Resp B/P (MAP) Pulse Ox O2 Delivery O2 Flow Rate FiO2 09/26/21 08:00 97 Nasal Cannula 2.00 09/26/21 08:00 87 10 158/83 99 Nasal Cannula 2.00 09/26/21 08:00 36.8 09/26/21 07:46 99 Nasal Cannula 2.00 09/26/21 07:00 76 15 149/78 99 Nasal Cannula 2.00 09/26/21 07:00 76 09/26/21 06:00 87 21 146/74 99 Nasal Cannula 2.00 09/26/21 05:00 75 13 136/82 97 Nasal Cannula 2.00 09/26/21 04:00 75 17 138/89 99 Nasal Cannula 2.00 09/26/21 04:00 96 Nasal Cannula 2.00 09/26/21 03:39 99 Nasal Cannula 2.00 09/26/21 03:00 86 17 158/94 99 Nasal Cannula 2.00 09/26/21 02:00 82 26 142/84 98 Nasal Cannula 2.00 09/26/21 01:00 82 22 152/82 97 Nasal Cannula 2.00 09/26/21 01:00 81 09/26/21 00:00 89 18 141/81 98 Nasal Cannula 2.00 09/26/21 00:00 36.5 Nasal Cannula 2.00 09/26/21 00:00 97 Nasal Cannula 2.00 09/25/21 23:36 96 Nasal Cannula 2.00 09/25/21 23:00 80 26 139/88 97 Nasal Cannula 2.00 09/25/21 22:00 81 20 133/83 97 Nasal Cannula 2.00 09/25/21 21:00 80 22 128/89 97 Nasal Cannula 2.00 09/25/21 20:41 98 Nasal Cannula 2.00 09/25/21 20:00 82 22 130/93 97 Nasal Cannula 2.00 09/25/21 20:00 99 Nasal Cannula 2.00 09/25/21 19:00 80 09/25/21 19:00 76 18 135/86 98 Nasal Cannula 2.00 09/25/21 18:44 36.0 88 28 141/87 98 Nasal Cannula 2.00 09/25/21 18:00 79 30 135/88 98 Nasal Cannula 3.00 09/25/21 17:00 80 15 167/96 97 Nasal Cannula 3.00 09/25/21 16:15 99 Nasal Cannula 2.00 09/25/21 16:00 82 20 149/92 97 Nasal Cannula 3.00 09/25/21 15:14 98 Nasal Cannula 2.00 09/25/21 15:00 76 16 148/95 98 Nasal Cannula 3.00 7/16/22 14:27 36.2 91 98 32 09/25/21 14:00 74 23 121/94 98 Nasal Cannula 3.00 09/25/21 13:00 91 09/25/21 13:00 78 21 152/98 98 Nasal Cannula 3.00 09/25/21 12:00 99 Nasal Cannula 2.00 09/25/21 12:00 91 30 158/113 98 Nasal Cannula 3.00 09/25/21 12:00 36.2 09/25/21 11:00 90 21 166/111 98 Nasal Cannula 3.00 09/25/21 10:50 36.4 18 171/116 (134) 96 Nasal Cannula 2.00 09/25/21 10:50 Nasal Cannula 2.00 09/25/21 10:43 Room Air 09/25/21 10:40 18 191/110 (137) 93 Room Air 09/25/21 10:36 Room Air 09/25/21 10:33 OxyMask 2.00 09/25/21 10:30 18 195/109 (137) 98 OxyMask 2.00 09/25/21 10:28 OxyMask 4.00 09/25/21 10:20 20 189/114 (139) 100 OxyMask 4.00 09/25/21 10:20 OxyMask 4.00 09/25/21 10:15 OxyMask 4.00 09/25/21 10:10 20 181/121 (141) 100 OxyMask 6.00 09/25/21 10:06 20 170/104 (126) 100 OxyMask 6.00 09/25/21 10:00 86 18 176/118 100 Nasal Cannula 3.00 09/25/21 10:00 OxyMask 6.00 09/25/21 09:58 36.2 20 173/109 (130) 100 OxyMask 6.00 09/25/21 09:58 OxyMask 6.00 I & O 09/26/21 07:00 Intake Total 1614 ml Output Total 1520 ml Balance 94 ml Lab Results Laboratory Tests 09/25/21 12:04: Glucometer 110 09/25/21 18:09: Glucometer 242H 09/26/21 00:24: Glucometer 200H 09/26/21 04:53: White Blood Count 10.5, Red Blood Count 2.37L, Hemoglobin 8.5#L, Hematocrit 26L, Mean Corpuscular Volume 108H, Mean Corpuscular Hemoglobin 36H, Mean Corpuscular Hemoglobin Concent 33, Red Cell Distribution Width 13.1, Platelet Count 165, Mean Platelet Volume 9.5, Immature Granulocyte % (Auto) 0, Neutrophils (%) (Auto) 85H, Lymphocytes (%) (Auto) 6L, Monocytes (%) (Auto) 9, Eosinophils (%) (Auto) 0, Basophils (%) (Auto) 0, Neutrophils # (Auto) 8.9H, Lymphocytes # (Auto) 0.6L, Monocytes # (Auto) 1.0, Eosinophils # (Auto) 0.0, Basophils # (Auto) 0.0, Immature Granulocyte # (Auto) 0.0, Sodium Level 134L, Potassium Level 5.0, Chloride Level 101, Carbon Dioxide Level 23, Anion Gap 10, Blood Urea Nitrogen 16, Creatinine 0.75, Estimat Glomerular Filtration Rate 97, BUN/Creatinine Ratio 21, Glucose Level 163H, Calcium Level 8.5, Corrected Calcium 9.0, Phosphorus Level 2.6, Magnesium Level 2.4, Total Bilirubin 1.2H, Aspartate Amino Transf (AST/SGOT) 28, Alanine Aminotransferase (ALT/SGPT) 21, Alkaline Phosphatase 58, Total Protein 6.1L, Albumin 3.4 Assessment and Plan Assessment Right Intertrochanteric Femur Fracture s/p Intramedullary Nailing Problem List Right Intertrochanteric Femur Fracture s/p Intramedullary Nailing Plan PT/OT DVT Prophylaxis Final Diagonsis Right Intertrochanteric Femur Fracture s/p Intramedullary Nailing Level of the visit: Level 3 (global) Clinical Quality Measures DVT/VTE Risk/Contraindication: Contraindications-Pharm: Other *list below* Other: surg DARIUS MARROQUIN MD Sep 26, 2021 08:54
--- NOTE | 2021-09-26 09:29 | Tele-ICU Progress Note ---
Subjective Date Seen by a Provider: Sep 26, 2021 Time Seen by a Provider: 08:35 Subjective/Events-last exam This virtual visit was conducted using real time audio/video. Thank you for asking us to see this patient for respiratory insufficiency due to COPD. Admitted w alcohol intoxication, fall R hip #. Recent events: Surgery w IM nail 09/25/21. PE: VSS. O2 sat 96% on 3 LPM. HEENT: No obvious masses, adenopathy or JVD. Chest: clear to auscultation. CV: RRR S1 S2 No murmur or added sounds. Abd: Non-tender. Bowel sounds Y. : Unremarkable. Myers Y. PARTS INTERPRETER/psychiatric: Grossly intact. No obvious focal findings. Extremities: No edema. Capillary refill < 3 seconds. Skin: unremarkable. Results: Elevated BG 163, Na 134. Decreased Hb 8.5. CXR: Hyperinflated w clear mclaughlin. Available chart/ vitals / labs / images reviewed. Video assessment done using teleICU camera, rest of exam as per RN. A/P: Respiratory insufficiency: Continue present management with O@, duonebs. Monitor for increasing oxygenation needs and/or need for intubation. Critical Care: critically ill patient. Cont. IVF, B6, MVI, Folate, Eliquis, PRN narcotics. Discussed with RN Rashmi. Asked RN to reach out to eICU if any questions or concerns later. Time spent with patient/coordination of care with other health professionals (mins): 32 Sepsis Event Evaluation Height, Weight, BMI Height: 5'11.00" Weight: 176lbs. 1.6oz. [id number]; 24.81 BMI Method: Exam Exam Patient acknowledged, consented, and participated in this virtual visit which was conducted using real time audio/video Vital Signs Date Time Temp Pulse Resp B/P (MAP) Pulse Ox O2 Delivery O2 Flow Rate FiO2 09/26/21 08:00 97 Nasal Cannula 2.00 09/26/21 08:00 87 10 158/83 99 Nasal Cannula 2.00 09/26/21 08:00 36.8 09/26/21 07:46 99 Nasal Cannula 2.00 09/26/21 07:00 76 15 149/78 99 Nasal Cannula 2.00 09/26/21 07:00 76 09/26/21 06:00 87 21 146/74 99 Nasal Cannula 2.00 09/26/21 05:00 75 13 136/82 97 Nasal Cannula 2.00 09/26/21 04:00 75 17 138/89 99 Nasal Cannula 2.00 09/26/21 04:00 96 Nasal Cannula 2.00 09/26/21 03:39 99 Nasal Cannula 2.00 09/26/21 03:00 86 17 158/94 99 Nasal Cannula 2.00 09/26/21 02:00 82 26 142/84 98 Nasal Cannula 2.00 09/26/21 01:00 82 22 152/82 97 Nasal Cannula 2.00 09/26/21 01:00 81 09/26/21 00:00 89 18 141/81 98 Nasal Cannula 2.00 09/26/21 00:00 36.5 Nasal Cannula 2.00 09/26/21 00:00 97 Nasal Cannula 2.00 09/25/21 23:36 96 Nasal Cannula 2.00 09/25/21 23:00 80 26 139/88 97 Nasal Cannula 2.00 09/25/21 22:00 81 20 133/83 97 Nasal Cannula 2.00 09/25/21 21:00 80 22 128/89 97 Nasal Cannula 2.00 09/25/21 20:41 98 Nasal Cannula 2.00 09/25/21 20:00 82 22 130/93 97 Nasal Cannula 2.00 09/25/21 20:00 99 Nasal Cannula 2.00 09/25/21 19:00 80 09/25/21 19:00 76 18 135/86 98 Nasal Cannula 2.00 09/25/21 18:44 36.0 88 28 141/87 98 Nasal Cannula 2.00 09/25/21 18:00 79 30 135/88 98 Nasal Cannula 3.00 09/25/21 17:00 80 15 167/96 97 Nasal Cannula 3.00 09/25/21 16:15 99 Nasal Cannula 2.00 09/25/21 16:00 82 20 149/92 97 Nasal Cannula 3.00 09/25/21 15:14 98 Nasal Cannula 2.00 09/25/21 15:00 76 16 148/95 98 Nasal Cannula 3.00 09/25/21 14:27 36.2 91 98 32 09/25/21 14:00 74 23 121/94 98 Nasal Cannula 3.00 7/16/22 13:00 91 09/25/21 13:00 78 21 152/98 98 Nasal Cannula 3.00 09/25/21 12:00 99 Nasal Cannula 2.00 09/25/21 12:00 91 30 158/113 98 Nasal Cannula 3.00 09/25/21 12:00 36.2 09/25/21 11:00 90 21 166/111 98 Nasal Cannula 3.00 09/25/21 10:50 36.4 18 171/116 (134) 96 Nasal Cannula 2.00 09/25/21 10:50 Nasal Cannula 2.00 09/25/21 10:43 Room Air 09/25/21 10:40 18 191/110 (137) 93 Room Air 09/25/21 10:36 Room Air 09/25/21 10:33 OxyMask 2.00 09/25/21 10:30 18 195/109 (137) 98 OxyMask 2.00 09/25/21 10:28 OxyMask 4.00 09/25/21 10:20 20 189/114 (139) 100 OxyMask 4.00 09/25/21 10:20 OxyMask 4.00 09/25/21 10:15 OxyMask 4.00 09/25/21 10:10 20 181/121 (141) 100 OxyMask 6.00 09/25/21 10:06 20 170/104 (126) 100 OxyMask 6.00 09/25/21 10:00 86 18 176/118 100 Nasal Cannula 3.00 09/25/21 10:00 OxyMask 6.00 09/25/21 09:58 36.2 20 173/109 (130) 100 OxyMask 6.00 09/25/21 09:58 OxyMask 6.00 I & O 09/26/21 07:00 Intake Total 1614 ml Output Total 1520 ml Balance 94 ml Height & Weight Height: 5'11.00" Weight: 176lbs. 1.6oz. [id number]; 24.81 BMI Method: General Appearance: No Apparent Distress, Chronically ill HEENT: PERRL/EOMI, Normal ENT Inspection, Pharynx Normal, Moist Mucous Membranes Neck: Full Range of Motion, Normal Inspection, Non Tender Respiratory: Chest Non Tender, Lungs Clear, Normal Breath Sounds, No Accessory Muscle Use, No Respiratory Distress Cardiovascular: No Edema, No Gallop, No JVD, No Murmur, Normal Peripheral Pulses, Irregularly Irregular Capillary Refill: Less Than 3 Seconds Extremity: Normal Capillary Refill, Normal Inspection, Normal Range of Motion, Non Tender, No Calf Tenderness, No Pedal Edema Neurologic/Psychiatric: Alert, Oriented x3, No Motor/Sensory Deficits, sulphate tester II- XII Norm as Tested, Depressed Affect, Motor Weakness (right leg) Skin: Normal Color, Warm/Dry Lymphatic: No Adenopathy Results Lab Laboratory Tests 09/24/21 17:41 09/24/21 21:30 09/25/21 05:25 09/26/21 04:53 Assessment/Plan Assessment/Plan See free text. Critical Care: Critically Ill Patient MONTSE OBREGON MD Sep 26, 2021 09:29
--- NOTE | 2021-09-26 09:42 | Physical Therapy Evaluation ---
PT Evaluation-General Medical Diagnosis Admission Date Sep 24, 2021 at 18:53 Medical Diagnosis: s/p ORIF (R) femur Onset Date: Sep 24, 2021 Therapy Diagnosis Therapy Diagnosis: difficulty with walking Height/Weight Height (Feet): 5 Height (Inches): 11.00 Weight (Pounds): 176 Weight (Ounces): 1.6 Precautions Precautions/Isolations: Fall Prevention, Standard Precautions Weight Bear Status Right Lower Extremity: Right Weight Bearing/Tolerated Left Lower Extremity: Left Full Weight Bearing Referral Physician: Andreas Reason for Referral: Evaluation/Treatment Medical History Pertinent Medical History: Atrial Fib, Alcoholism, CABG, CAD, COPD, GERD, HTN, [place] Social History Home: Single Level Current Living Status: Spouse PT Steps Into Home: 3 Prior Prior Level of Function SCALE: Activities may be completed with or without assistive devices. 6-Yeqvxcqwsb-feebdki completes the activity by him/herself with no assistance from a helper. 5-Set-up or Clean-up Assistance-helper sets up or cleans up; patient completes activity. [place] assists only prior to or following the activity. 4-Supervision or Touching Assistance-helper provides verbal cues and/or touching/steadying and/or contact guard assistance as patient completes activity. Assistance may be provided throughout the activity or intermittently. 3-Partial/Moderate Assistance-helper does LESS THAN HALF the effort. [place] lifts, holds or supports trunk or limbs, but provides less than half the effort. 2-Substantial/Maximal Assistance-helper does MORE THAN HALF the effort. [place] lifts or holds trunk or limbs and provides more than half the effort. 1-Kmstdllwe-sfbrin does ALL the effort. Patient does none of the effort to complete the activity. Or, the assistance of 2 or more helpers is required for the patient to complete the activity. If activity was not attempted, code reason: 7-Patient Refused. 9-Not Applicable-not attempted and the patient did not perform the activity before the current illness, exacerbation or injury. 10-Not Attempted due to Environmental Limitations-(lack of equipment, weather restraints, etc.). 88-Not Attempted due to Medical Conditions or Safety Concerns. Bed Mobility: 6 Transfers (B,C,W/C): 6 Gait: 6 Stairs: 6 Indoor Mobility (Ambulation): Independent Stairs: Independent PT Evaluation-Current Subjective The patient reports that he wants to try to get up. Pain Numeric Pain Scale: 6 Location: Right Location Body Site: Hip Objective Patient Orientation: Person, Place, Time, Situation ROM/Strength ROM Lower Extremities 10 degrees (R) hip flexion and abduction Transfers Roll Left to Right (QC): 3 Sit to Lying (QC): 3 Lying to Sitting/Side of Bed(Q: 3 Sit to Stand (QC): 3 Gait Does the Patient Walk?: No and Walking Goal IS indicated Mode of Locomotion: Walk Anticipated Mode of Locomotion: Walk Walk 10 feet (QC): 88 Walk 50 ft with 2 Turns(QC): 88 Walk 150 ft (QC): 88 Walking 10ft/uneven surface-QC: 88 Distance: 0' Gait Assistive Device: FWW Comments/Gait Description Patient only able to stand and not safely take steps today Balance Sitting Static: Fair Sitting Dynamic: Fair Standing Static: Poor Assessment/Needs S/P (R) femur ORIF with functional mobility limitations. The patient also has alcohol withdrawal which is complicating the situation. Rehab Potential: Good PT Short Term Goals Short Term Goals Time Frame: Oct 03, 2021 Roll Left & Right: 5 Sit to lyin Lying to sitting on side of be: 5 Sit to stand: 5 Chair/utw-jj-pwvvw transfer: 5 Toilet transfer: 5 Car transfer: 5 Walk 10 feet: 5 Walk 50 feet with two turns: 5 Walk 150 feet: 5 Walking 10ft on uneven surface: 5 1 step (curb): 5 4 steps: 5 12 steps: 5 Picking up objects: 5 PT Mailing Machine Helper Goals Senior Care Goals PT Senior Care Goals Time Frame: Oct 10, 2021 Roll Left & Right (QC): 6 Sit to Lying (QC): 6 Lying-Sitting on Side/Bed(QC): 6 Sit to Stand (QC): 6 Chair/Hoi-jt-Yxqtx Xfer(QC): 6 Toilet Transfer (QC): 6 Car Transfer (QC): 6 Does the Patient Walk: Yes Walk 10 feet (QC): 6 Walk 50ft with 2 Turns (QC): 6 Walk 150 ft (QC): 6 Walking 10ft on Uneven Surface: 6 1 Step (curb) (QC): 6 4 Steps (QC): 6 12 Steps (QC): 6 Picking up an Object (QC): 6 PT Plan Problem List Problem List: Activity Tolerance, Functional Strength, Safety, Balance, Gait, Transfer, Bed Mobility, ROM Treatment/Plan Treatment Plan: Continue Plan of Care Treatment Plan: Bed Mobility, Education, Functional Activity Yoanna, Functional Strength, Gait, Safety, Therapeutic Exercise, Transfers Treatment Duration: Oct 10, 2021 Frequency: 11 times per week Estimated Hrs Per Day: 1 hour per day Time/GCodes Time In: 858 Time Out: 923 Total Billed Treatment Time: 25 Total Billed Treatment 1, EV low complexity x 10', FA x 15' JONATHON ASENCIO PT Sep 26, 2021 09:42
--- NOTE | 2021-09-26 14:14 | Progress Note - Cardiology ---
Cardiology SOAP Progress Note Subjective: Reports gen weakness and malaise No cp or shortness of breath at rest No palp Reports anxiety No n/v/d Objective: I&O/Vital Signs 09/26/21 09/26/21 09/26/21 09/26/21 03:00 03:39 04:00 04:00 Pulse 86 75 Resp 17 17 B/P (MAP) 158/94 138/89 Pulse Ox 99 99 96 99 O2 Delivery Nasal Cannula Nasal Cannula Nasal Cannula Nasal Cannula O2 Flow Rate 2.00 2.00 2.00 2.00 09/26/21 09/26/21 09/26/21 09/26/21 05:00 06:00 07:00 07:00 Pulse 75 87 76 76 Resp 13 21 15 B/P (MAP) 136/82 146/74 149/78 Pulse Ox 97 99 99 O2 Delivery Nasal Cannula Nasal Cannula Nasal Cannula O2 Flow Rate 2.00 2.00 2.00 09/26/21 09/26/21 09/26/21 09/26/21 07:46 08:00 08:00 08:00 Temp 36.8 Pulse 87 Resp 10 B/P (MAP) 158/83 Pulse Ox 99 99 97 O2 Delivery Nasal Cannula Nasal Cannula Nasal Cannula O2 Flow Rate 2.00 2.00 2.00 09/26/21 09/26/21 09/26/21 09/26/21 09:00 10:00 11:00 11:36 Temp 36.3 Pulse 87 95 78 Resp 14 22 B/P (MAP) 152/98 126/83 120/76 Pulse Ox 97 97 98 O2 Delivery Nasal Cannula Nasal Cannula Nasal Cannula O2 Flow Rate 2.00 2.00 2.00 09/26/21 09/26/21 09/26/21 09/26/21 12:00 12:00 13:00 13:00 Pulse 63 76 79 Resp 29 18 B/P (MAP) 149/85 136/93 Pulse Ox 97 100 99 O2 Delivery Nasal Cannula Nasal Cannula Nasal Cannula O2 Flow Rate 2.00 2.00 2.00 09/26/21 00:00 Intake Total 1614 ml Output Total 575 ml Balance 1039 ml Weight (Pounds): 176 Weight (Ounces): 1.6 Weight (Calculated Kilograms): 79.944690 Constitutional: other (mildly confused at times, but appropriately responsive to most questions) Respiratory: No accessory muscle use; other (fair to good, bilateral air entry) Cardiovascular: regular rate-rhythm, S1 and S2, systolic murmur (soft LISA at card base) Gastrointestional: No tender; soft; No guarding, No rebound; audible bowel sounds Extremities: No clubbing, No cyanosis, No significant edema Neurologic/Psychiatric: other (moves all limbs) Skin: normal color, warm/dry; No rash on exposed areas; other (healed scar of sternotomy) Results/Procedures: Labs Laboratory Tests 09/25/21 18:09: Glucometer 242H 09/26/21 00:24: Glucometer 200H 09/26/21 04:53: White Blood Count 10.5, Red Blood Count 2.37L, Hemoglobin 8.5#L, Hematocrit 26L, Mean Corpuscular Volume 108H, Mean Corpuscular Hemoglobin 36H, Mean Corpuscular Hemoglobin Concent 33, Red Cell Distribution Width 13.1, Platelet Count 165, Mean Platelet Volume 9.5, Immature Granulocyte % (Auto) 0, Neutrophils (%) (Auto) 85H, Lymphocytes (%) (Auto) 6L, Monocytes (%) (Auto) 9, Eosinophils (%) (Auto) 0, Basophils (%) (Auto) 0, Neutrophils # (Auto) 8.9H, Lymphocytes # (Auto) 0.6L, Monocytes # (Auto) 1.0, Eosinophils # (Auto) 0.0, Basophils # (Auto) 0.0, Immature Granulocyte # (Auto) 0.0, Sodium Level 134L, Potassium Level 5.0, Chloride Level 101, Carbon Dioxide Level 23, Anion Gap 10, Blood Urea Nitrogen 16, Creatinine 0.75, Estimat Glomerular Filtration Rate 97, BUN/Creatinine Ratio 21, Glucose Level 163H, Calcium Level 8.5, Corrected Calcium 9.0, Phosphorus Level 2.6, Magnesium Level 2.4, Total Bilirubin 1.2H, Aspartate Amino Transf (AST/SGOT) 28, Alanine Aminotransferase (ALT/SGPT) 21, Alkaline Phosphatase 58, Total Protein 6.1L, Albumin 3.4 09/26/21 11:46: Glucometer 175H Microbiology 09/24/21 MRSA Screen - Final, Complete MRSA not isolated Laboratory Tests 09/24/21 17:41 09/24/21 21:30 09/25/21 05:25 09/26/21 04:53 A/P: Assessment: CAD - reports h/o CABG in 2003 in [place] - reports coronary intervention about 8 weeks ago in [place], [place] On chronic OAC - Dr York progress note of 09/08/21 documents a h/o PAF Ac alcohol intoxication R hip fracture following alcohol-related fall - s/p R hip surg on 09/25/21 Plan: * Continue clopidogrel for CAD and cor stenting * Continue oral anticoag because of a h/o PAF * We are trying to obtain report of cor stenting from [place], [place] where pt reports he had it done * Echo * Anemia being managed by Dr Key * Monitor labs closely FLORENCE HO MD FACP FAC CCDS Sep 26, 2021 14:14
[2021-09-27] MEDS: RT-ALBUTEROL/IPRATROPIUM 3 ML (DUONEB) VIAL INH SCH ×4 (02:38→21:53)
[2021-09-27] MEDS: morphine INJ 4 MG/ML 1 ML (VIAL/SYRINGE) IV PRN ×3 (05:03→20:24)
[2021-09-27] MEDS: RT-ALBUTEROL/IPRATROPIUM 3 ML (DUONEB) VIAL INH PRN (05:11)
[2021-09-27 05:29] LABS: BASOPHILS % (AUTO) 0 % (0-10); EOSINOPHILS # (AUTO) 0.2 10^3/uL (0.0-0.3); EOSINOPHILS % (AUTO) 2 % (0-10); HEMATOCRIT 24 % (40-54); HEMOGLOBIN 7.9 g/dL (13.3-17.7); LYMPHOCYTES # (AUTO) 1.8 10^3/uL (1.0-4.0); LYMPHOCYTES % (AUTO) 15 % (12-44); MEAN CORPUSCULAR HEMOGLOBIN 36 pg (25-34); MEAN CORPUSCULAR HGB CONC 33 g/dL (32-36); MEAN CORPUSCULAR VOLUME 109 fL (80-99); MEAN PLATELET VOLUME 9.3 fL (9.0-12.2); MONOCYTES # (AUTO) 1.3 10^3/uL (0.0-1.0); MONOCYTES % (AUTO) 11 % (0-12); NEUTROPHILS # (AUTO) 8.7 10^3/uL (1.8-7.8); NEUTROPHILS % (AUTO) 72 % (42-75); PLATELET COUNT 151 10^3/uL (130-400); WHITE BLOOD COUNT 12.1 10^3/uL (4.3-11.0)
[2021-09-27 05:38] LABS: ALBUMIN 3.4 GM/DL (3.2-4.5); POTASSIUM 4.2 MMOL/L (3.6-5.0)
[2021-09-27 05:39] LABS: CALCIUM 8.4 MG/DL (8.5-10.1)
[2021-09-27 05:42] LABS: BILIRUBIN,TOTAL 0.8 MG/DL (0.1-1.0)
[2021-09-27 05:44] LABS: CREATININE SERUM 0.69 MG/DL (0.60-1.30); PHOSPHORUS 2.1 MG/DL (2.3-4.7)
[2021-09-27 05:47] LABS: MAGNESIUM 2.3 MG/DL (1.6-2.4)
[2021-09-27] MEDS: POTASSIUM CL 10MEQ/50ML IVPB 50 ML IV SCH (05:49)
[2021-09-27] MEDS: KCL 20 MEQ TAB (K-DUR) PO SCH (05:50)
[2021-09-27] MEDS: MAGNESIUM 1 GM/100 ML IVPB 100 ML IV SCH (05:50)
[2021-09-27] MEDS: THIAMINE 100 MG (VITAMIN B-1) TAB PO SCH (05:55)
[2021-09-27] MEDS: MULTIVIT W/MINERALS TAB (THERAGRAN M) PO SCH (05:55)
[2021-09-27] MEDS: NS IV 1000 ML 1,000 ML IV SCH (08:38)
[2021-09-27] MEDS: CLOPIDOGREL 75 MG (PLAVIX) TABLET PO SCH (08:41)
[2021-09-27] MEDS: LORazepam 1 MG (ATIVAN) TAB PO PRN ×3 (08:41→21:46)
[2021-09-27] MEDS: APIXABAN 5 MG (ELIQUIS) TABLET PO SCH ×2 (08:41→19:55)
[2021-09-27] MEDS: DOCUSATE SODIUM 100 MG (COLACE) CAP PO SCH ×2 (08:41→19:55)
[2021-09-27] MEDS: MAGNESIUM OXIDE (MAG-OX)400 MG TAB PO SCH (08:41)
[2021-09-27] MEDS: SENNOSIDES 8.6 MG (SENOKOT) TAB PO SCH ×2 (08:42→19:55)
[2021-09-27] MEDS: FOLIC ACID 1 MG TAB PO SCH (08:42)
[2021-09-27] MEDS: THIAMINE INJECTION 100 MG, FOLIC ACID INJECTION 1 MG, MAGNESIUM SULFATE 2 GM, VITAMIN M... IV SCH ×5 (08:54)
--- NOTE | 2021-09-27 09:02 | Progress Note - Ortho ---
Progress Note Subjective Date of Exam 09/27/21 Chief Complaint POD #2 R IT Femur Fx s/p IM nailing HPI/Events since last exam sitting up eating breakfast, some difficulty with pain Review of Systems - Allergies: Coded Allergies: No Known Drug Allergies (Unverified , 12/12/17) Home Meds Active Scripts Cephalexin (Cephalexin) 500 Mg Tablet, 500 MG PO BID, #10 TAB Prov:ANTONI SHERMAN MD 09/08/21 Metoprolol Tartrate (Metoprolol Tartrate) 25 Mg Tablet, 25 MG PO BID, #60 TAB Prov:ANTONI SHERMAN MD 09/08/21 Isosorbide Mononitrate (Isosorbide Mononitrate ER) 30 Mg Tab.er.24h, 30 MG PO DAILY, #30 TAB Prov:ANTONI SHERMAN MD 09/08/21 Clopidogrel Bisulfate (Clopidogrel) 75 Mg Tablet, 75 MG PO DAILY, #30 TAB Prov:ANTONI SHERMAN MD 09/08/21 Diltiazem HCl (Diltiazem 24Hr ER) 120 Mg Cap.er.24h, 120 MG PO DAILY, #30 CAP Prov:ANTONI SHERMAN MD 09/08/21 Apixaban (Eliquis) 5 Mg Tablet, 5 MG PO BID, #60 TAB Prov:ANTONI SHERMAN MD 09/08/21 Reported Medications Albuterol Sulfate (Albuterol Sulfate) 2.5 Mg/0.5 Ml Vial.neb, 2.5 MG INH Q6H PRN for SHORTNESS OF BREATH, EACH 09/07/21 Albuterol Sulfate (PROAIR HFA) 1 Puff Puff, 2 PUFF IH Q4H PRN for SHORTNESS OF BREATH, EA 09/07/21 Objective Exam R Hip: Dressing C/D/I, +DF of ankle, no s/s of DVT Vital Signs Vital Signs Date Time Temp Pulse Resp B/P (MAP) Pulse Ox O2 Delivery O2 Flow Rate FiO2 09/27/21 06:00 102 15 150/89 99 Nasal Cannula 2.00 09/27/21 05:15 Nasal Cannula 2.00 09/27/21 05:11 100 Nasal Cannula 2.00 09/27/21 05:04 112 29 157/92 100 Nasal Cannula 4.00 09/27/21 05:03 Nasal Cannula 4.00 09/27/21 04:20 94 Nasal Cannula 2.00 09/27/21 04:00 93 18 152/95 100 Nasal Cannula 2.00 09/27/21 03:43 36.2 09/27/21 03:00 96 22 156/94 98 Nasal Cannula 2.00 09/27/21 02:38 99 Nasal Cannula 2.00 09/27/21 02:00 94 16 152/87 98 Nasal Cannula 2.00 09/27/21 01:30 94 19 142/91 99 Nasal Cannula 2.00 09/27/21 01:00 90 09/27/21 00:30 89 134/65 99 Nasal Cannula 2.00 09/27/21 00:00 93 23 165/88 97 Nasal Cannula 2.00 09/27/21 00:00 99 Nasal Cannula 2.00 09/27/21 00:00 36.7 09/26/21 23:00 94 18 128/62 98 Nasal Cannula 2.00 09/26/21 22:34 97 Nasal Cannula 2.00 09/26/21 22:00 90 15 124/88 99 Nasal Cannula 2.00 09/26/21 21:00 84 38 129/94 99 Nasal Cannula 2.00 09/26/21 20:00 82 32 144/88 99 Nasal Cannula 2.00 09/26/21 19:33 36.5 09/26/21 19:20 99 Nasal Cannula 2.00 09/26/21 19:00 93 17 136/94 99 Nasal Cannula 2.00 09/26/21 19:00 84 09/26/21 18:00 80 16 151/98 99 Nasal Cannula 2.00 09/26/21 17:00 84 15 120/81 98 Nasal Cannula 2.00 09/26/21 16:00 97 Nasal Cannula 2.00 09/26/21 16:00 85 17 131/92 97 Nasal Cannula 2.00 09/26/21 15:43 35.2 09/26/21 15:41 99 Nasal Cannula 2.00 09/26/21 15:00 83 15 151/93 98 Nasal Cannula 2.00 09/26/21 14:00 80 22 126/94 99 Nasal Cannula 2.00 09/26/21 13:00 79 09/26/21 13:00 76 18 136/93 99 Nasal Cannula 2.00 09/26/21 12:00 63 29 149/85 100 Nasal Cannula 2.00 09/26/21 12:00 97 Nasal Cannula 2.00 09/26/21 11:36 36.3 09/26/21 11:00 78 22 120/76 98 Nasal Cannula 2.00 09/26/21 10:00 95 15 126/83 97 Nasal Cannula 2.00 I & O 09/27/21 07:00 Intake Total 1625 ml Output Total 1410 ml Balance 215 ml Lab Results Laboratory Tests 09/26/21 11:46: Glucometer 175H 09/26/21 17:50: Glucometer 120H 09/26/21 23:06: Glucometer 120H 09/27/21 05:10: Glucometer 89 09/27/21 05:20: White Blood Count 12.1H, Red Blood Count 2.21L, Hemoglobin 7.9L, Hematocrit 24L, Mean Corpuscular Volume 109H, Mean Corpuscular Hemoglobin 36H, Mean Corpuscular Hemoglobin Concent 33, Red Cell Distribution Width 13.2, Platelet Count 151, Mean Platelet Volume 9.3, Immature Granulocyte % (Auto) 1, Neutrophils (%) (Auto) 72, Lymphocytes (%) (Auto) 15, Monocytes (%) (Auto) 11, Eosinophils (%) (Auto) 2, Basophils (%) (Auto) 0, Neutrophils # (Auto) 8.7H, Lymphocytes # (Auto) 1.8, Monocytes # (Auto) 1.3H, Eosinophils # (Auto) 0.2, Basophils # (Auto) 0.0, Immature Granulocyte # (Auto) 0.1, Sodium Level 134L, Potassium Level 4.2, Chloride Level 101, Carbon Dioxide Level 24, Anion Gap 9, Blood Urea Nitrogen 13, Creatinine 0.69, Estimat Glomerular Filtration Rate 100, BUN/Cr eatinine Ratio 19, Glucose Level 100, Calcium Level 8.4L, Corrected Calcium 8.9, Phosphorus Level 2.1L, Magnesium Level 2.3, Total Bilirubin 0.8, Aspartate Amino Transf (AST/SGOT) 34, Alanine Aminotransferase (ALT/SGPT) 23, Alkaline Phosphatase 56, Total Protein 6.0L, Albumin 3.4 Microbiology 09/24/21 MRSA Screen - Final, Complete MRSA not isolated Assessment and Plan Assessment Right Intertrochanteric Femur Fracture s/p Intramedullary Nailing Problem List Right Intertrochanteric Femur Fracture s/p Intramedullary Nailing Plan PT/OT DVT Prophylaxis Final Diagonsis Right Intertrochanteric Femur Fracture s/p Intramedullary Nailing Level of the visit: Level 3 (global) Clinical Quality Measures DVT/VTE Risk/Contraindication: Contraindications-Pharm: Other *list below* Other: surg DARIUS MARROQUIN MD Sep 27, 2021 09:02
--- NOTE | 2021-09-27 10:12 | Physical Therapy Daily Note ---
PT Daily Note-Current Subjective Patient is in bed. Slightly agitated. O2 in place Mental Status Patient Orientation: Confused Attachments: Oxygen, Myers Catheter, IV Transfers SCALE: Activities may be completed with or without assistive devices. 4-Dmhhdxfowu-sfisgac completes the activity by him/herself with no assistance from a helper. 5-Set-up or Clean-up Assistance-helper sets up or cleans up; patient completes activity. [place] assists only prior to or following the activity. 4-Supervision or Touching Assistance-helper provides verbal cues and/or touching/steadying and/or contact guard assistance as patient completes activity . Assistance may be provided throughout the activity or intermittently. 3-Partial/Moderate Assistance-helper does LESS THAN HALF the effort. [place] lifts, holds or supports trunk or limbs, but provides less than half the effort. 2-Substantial/Maximal Assistance-helper does MORE THAN HALF the effort. [place] lifts or holds trunk or limbs and provides more than half the effort. 2-Cnkfqoedm-knutiz does ALL the effort. Patient does none of the effort to complete the activity. Or, the assistance of 2 or more helpers is required for the patient to complete the activity. If activity was not attempted, code reason: 7-Patient Refused. 9-Not Applicable-not attempted and the patient did not perform the activity before the current illness, exacerbation or injury. 10-Not Attempted due to Environmental Limitations-(lack of equipment, weather restraints, etc.). 88-Not Attempted due to Medical Conditions or Safety Concerns. Lying to Sitting/Side of Bed(Q: 2 Sit to Stand (QC): 2 Chair/Vkc-pb-Evwpu Xfer(QC): 2 Weight Bearing Right Lower Extremity: Right Weight Bearing/Tolerated Left Lower Extremity: Left Full Weight Bearing Gait Training Does the Patient Walk?: No and Walking Goal IS indicated Gait Assistive Device: FWW able to take a few small steps to turn to pivot to sit in recliner Exercises Supine Ex: Ankle pumps, Quad Set, Heel Slides Supine Reps: 12 (AAROM) Seated Therapy Exercises: Long arc quads Seated Reps: 15 Assessment Patient is highly agitated with activity. Noted increase SOA with O2 in place with decrease in SAO2 to 70%. RN present. Increase activity as tolerated and allowed by patient. 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 Local Owner Operator Truck Driver Goals PT Halfway Goals Time Frame: Oct 10, 2021 Roll Left & Right (QC): 6 Sit to Lying (QC): 6 Lying-Sitting on Side/Bed(QC): 6 Sit to Stand (QC): 6 Chair/Nul-qm-Lnizl Xfer(QC): 6 Toilet Transfer (QC): 6 Car Transfer (QC): 6 Does the Patient Walk: Yes Walk 10 feet (QC): 6 Walk 50ft with 2 Turns (QC): 6 Walk 150 ft (QC): 6 Walking 10ft on Uneven Surface: 6 1 Step (curb) (QC): 6 4 Steps (QC): 6 12 Steps (QC): 6 Picking up an Object (QC): 6 PT Plan Treatment/Plan Treatment Plan: Continue Plan of Care Treatment Plan: Bed Mobility, Education, Functional Activity Yoanna, Functional Strength, Gait, Safety, Therapeutic Exercise, Transfers Treatment Duration: Oct 10, 2021 Frequency: 11 times per week Estimated Hrs Per Day: 1 hour per day Time/GCodes Time In: 755 Time Out: 820 Total Billed Treatment Time: 25 Total Billed Treatment 1 visit EX 11 min FA 14 min KALLIE TOMLINSON PT Sep 27, 2021 10:12
[2021-09-27] MEDS ORDERED: ISOS30TA82 PO (10:27)
[2021-09-27] MEDS ORDERED: APIX5TAB PO (10:27)
[2021-09-27] MEDS ORDERED: GABA-490 PO (10:27)
[2021-09-27] MEDS ORDERED: DILT-27 PO (10:27)
[2021-09-27] MEDS ORDERED: CLOP75TA28 PO (10:27)
[2021-09-27] MEDS ORDERED: METO-333 PO (10:27)
[2021-09-27] MEDS ORDERED: LORazepam INJ 2 MG/ML (ATIVAN) VIAL IVP NR (11:00)
--- NOTE | 2021-09-27 13:39 | Physical Therapy Progress Note ---
Therapy Progress Note Patient on hold this p.m. due to detox status. Will attempt in a.susan. KALLIE TOMLINSON PT Sep 27, 2021 13:39
--- NOTE | 2021-09-27 14:36 | Occ Therapy Progress Note ---
Therapy Progress Note OT orders received and chart reviewed. Pt on hold at this time per nursing due to agitation when awake. Pt is currently resting. OT will attempt evaluation tomorrow. AMMY NATHAN OT Sep 27, 2021 14:36
--- NOTE | 2021-09-27 14:37 | Tele-ICU Progress Note ---
Subjective Date Seen by a Provider: Sep 27, 2021 Time Seen by a Provider: 14:35 Subjective/Events-last exam (Tele-ICU Physician , Progress Note ) Available chart/ vitals / labs / Images reviewed Video assessment done using teleICU camera, rest of exam as per RN Discussed with RN , EXAM PER RN Events overnight : Afebrile FiO2 - 4l I/O = Drips: ns Pressors: , hemodynamically stable Consultants: Hospital course: (09/24) 70yr R.hip fx , ETOH intox (09/26) s/p right femur fx IM nailing A/P s/p fall - R IT Femur Fx s/p IM nailing 09/25/21 - pain control - as per ortho Hypoxia - home 2 l , now on 4 l - encourage IS - doing poorly - cxr am Anemia - no bleeding , follow on Eliquis Leukocytosis - no fever , will check cxr and PCT tomorrow am CAD - reports h/o CABG in 2003 ,coronary intervention about 8 weeks ago in [place], [place] - as per cards - on chronic OAC - as per cards , back on Eliquis ETON use - ? withdrowal - benso , vitamins Lines : (Central Line Necessity Reviewed) Myers: + OG: Nutrition: po Analgesia: Anxiety/ delirium VTE Prophylaxis: on - eliquis Stress Ulcer Prophylaxis: po Plans in collaboration with bedside consultants and IM MDs. Discussed with RN to reach out if any questions or concerns A total of 25 minutes of critical care time was devoted to this patient today, required to treat and/or prevent further deterioration of critical care condition ( as above) . Sepsis Event Evaluation Height, Weight, BMI Height: 5'11.00" Weight: 176lbs. 1.6oz. 79.713838em; 24.53 BMI Method: Exam Exam Patient acknowledged, consented, and participated in this virtual visit which was conducted using real time audio/video Vital Signs Date Time Temp Pulse Resp B/P (MAP) Pulse Ox O2 Delivery O2 Flow Rate FiO2 09/27/21 12:33 36.6 Nasal Cannula 3.00 09/27/21 12:00 94 Nasal Cannula 3.00 09/27/21 09:59 Nasal Cannula 3.00 09/27/21 08:00 94 Nasal Cannula 4.00 09/27/21 08:00 36.6 Nasal Cannula 4.00 09/27/21 07:00 96 09/27/21 06:00 102 15 150/89 99 Nasal Cannula 2.00 09/27/21 05:15 Nasal Cannula 2.00 09/27/21 05:11 100 Nasal Cannula 2.00 09/27/21 05:04 112 29 157/92 100 Nasal Cannula 4.00 09/27/21 05:03 Nasal Cannula 4.00 09/27/21 04:20 94 Nasal Cannula 2.00 09/27/21 04:00 93 18 152/95 100 Nasal Cannula 2.00 09/27/21 03:43 36.2 09/27/21 03:00 96 22 156/94 98 Nasal Cannula 2.00 09/27/21 02:38 99 Nasal Cannula 2.00 09/27/21 02:00 94 16 152/87 98 Nasal Cannula 2.00 09/27/21 01:30 94 19 142/91 99 Nasal Cannula 2.00 09/27/21 01:00 90 09/27/21 00:30 89 134/65 99 Nasal Cannula 2.00 09/27/21 00:00 93 23 165/88 97 Nasal Cannula 2.00 09/27/21 00:00 99 Nasal Cannula 2.00 09/27/21 00:00 36.7 09/26/21 23:00 94 18 128/62 98 Nasal Cannula 2.00 09/26/21 22:34 97 Nasal Cannula 2.00 09/26/21 22:00 90 15 124/88 99 Nasal Cannula 2.00 09/26/21 21:00 84 38 129/94 99 Nasal Cannula 2.00 09/26/21 20:00 82 32 144/88 99 Nasal Cannula 2.00 09/26/21 19:33 36.5 09/26/21 19:20 99 Nasal Cannula 2.00 09/26/21 19:00 93 17 136/94 99 Nasal Cannula 2.00 09/26/21 19:00 84 09/26/21 18:00 80 16 151/98 99 Nasal Cannula 2.00 09/26/21 17:00 84 15 120/81 98 Nasal Cannula 2.00 09/26/21 16:00 97 Nasal Cannula 2.00 09/26/21 16:00 85 17 131/92 97 Nasal Cannula 2.00 09/26/21 15:43 35.2 09/26/21 15:41 99 Nasal Cannula 2.00 09/26/21 15:00 83 15 151/93 98 Nasal Cannula 2.00 I & O 09/27/21 07:00 Intake Total 1625 ml Output Total 1410 ml Balance 215 ml Height & Weight Height: 5'11.00" Weight: 176lbs. 1.6oz. 79.432468jx; 24.53 BMI Method: General Appearance: No Apparent Distress, WD/WN, Chronically ill HEENT: PERRL/EOMI, Normal ENT Inspection, Pharynx Normal, Moist Mucous Membranes Neck: Full Range of Motion, Normal Inspection, Non Tender Respiratory: Lungs Clear, Normal Breath Sounds Cardiovascular: Regular Rate, Rhythm Capillary Refill: Less Than 3 Seconds Extremity: Normal Capillary Refill, Normal Inspection, Normal Range of Motion, Non Tender, No Calf Tenderness, No Pedal Edema Neurologic/Psychiatric: Alert, Oriented x3 Skin: Normal Color, Warm/Dry Lymphatic: No Adenopathy Results Lab Laboratory Tests 09/26/21 04:53 09/27/21 05:20 Assessment/Plan Assessment/Plan 1 ROSE SU MD Sep 27, 2021 14:37
--- NOTE | 2021-09-27 14:47 | Progress Note - Cardiology ---
Cardiology SOAP Progress Note Subjective: Gen weakness and malaise and anxiety No cp or palp or syncope or shortness of breath No n/v/d Objective: I&O/Vital Signs 09/27/21 09/27/21 09/27/21 09/27/21 03:00 03:43 04:00 04:20 Temp 36.2 Pulse 96 93 Resp 22 18 B/P (MAP) 156/94 152/95 Pulse Ox 98 100 94 O2 Delivery Nasal Cannula Nasal Cannula Nasal Cannula O2 Flow Rate 2.00 2.00 2.00 09/27/21 09/27/21 09/27/21 09/27/21 05:03 05:04 05:11 05:15 Pulse 112 Resp 29 B/P (MAP) 157/92 Pulse Ox 100 100 O2 Delivery Nasal Cannula Nasal Cannula Nasal Cannula Nasal Cannula O2 Flow Rate 4.00 4.00 2.00 2.00 09/27/21 09/27/21 09/27/21 09/27/21 06:00 07:00 08:00 08:00 Temp 36.6 Pulse 102 96 Resp 15 B/P (MAP) 150/89 Pulse Ox 99 94 O2 Delivery Nasal Cannula Nasal Cannula Nasal Cannula O2 Flow Rate 2.00 4.00 4.00 09/27/21 09/27/21 09/27/21 09:59 12:00 12:33 Temp 36.6 B/P (MAP) Pulse Ox 94 O2 Delivery Nasal Cannula Nasal Cannula Nasal Cannula O2 Flow Rate 3.00 3.00 3.00 09/27/21 00:00 Intake Total 1300 ml Output Total 775 ml Balance 525 ml Weight (Pounds): 176 Weight (Ounces): 1.6 Weight (Calculated Kilograms): 79.731628 Constitutional: other (mildly confused at times, but appropriately responsive to most questions) Respiratory: No accessory muscle use; other (fair to good, bilateral air entry) Cardiovascular: regular rate-rhythm, S1 and S2, systolic murmur (soft LISA at card base) Gastrointestional: No tender; soft; No guarding, No rebound; audible bowel sounds Extremities: No clubbing, No cyanosis, No significant edema Neurologic/Psychiatric: other (moves all limbs) Skin: normal color, warm/dry; No rash on exposed areas; other (healed scar of sternotomy) Results/Procedures: Labs Laboratory Tests 09/26/21 17:50: Glucometer 120H 09/26/21 23:06: Glucometer 120H 09/27/21 05:10: Glucometer 89 09/27/21 05:20: White Blood Count 12.1H, Red Blood Count 2.21L, Hemoglobin 7.9L, Hematocrit 24L, Mean Corpuscular Volume 109H, Mean Corpuscular Hemoglobin 36H, Mean Corpuscular Hemoglobin Concent 33, Red Cell Distribution Width 13.2, Platelet Count 151, Mean Platelet Volume 9.3, Immature Granulocyte % (Auto) 1, Neutrophils (%) (Au to) 72, Lymphocytes (%) (Auto) 15, Monocytes (%) (Auto) 11, Eosinophils (%) (Auto) 2, Basophils (%) (Auto) 0, Neutrophils # (Auto) 8.7H, Lymphocytes # (Auto) 1.8, Monocytes # (Auto) 1.3H, Eosinophils # (Auto) 0.2, Basophils # (Auto) 0.0, Immature Granulocyte # (Auto) 0.1, Sodium Level 134L, Potassium Level 4.2, Chloride Level 101, Carbon Dioxide Level 24, Anion Gap 9, Blood Urea Nitrogen 13, Creatinine 0.69, Estimat Glomerular Filtration Rate 100, BUN/Creatinine Ratio 19, Glucose Level 100, Calcium Level 8.4L, Corrected Calcium 8.9, Phosphorus Level 2.1L, Magnesium Level 2.3, Total Bilirubin 0.8, Aspartate Amino Transf (AST/SGOT) 34, Alanine Aminotransferase (ALT/SGPT) 23, Alkaline Phosphatase 56, Total Protein 6.0L, Albumin 3.4 09/27/21 12:22: Glucometer 117H Microbiology 09/24/21 MRSA Screen - Final, Complete MRSA not isolated Laboratory Tests 09/26/21 04:53 09/27/21 05:20 A/P: Assessment: CAD - reports h/o CABG in 2003 in [place] - reports coronary intervention about 8 weeks ago in [facility] [place] - echo 09-26-21: LVEF 55-60%, PASP could not be estimated On chronic OAC - Dr York progress note of 09/08/21 documents a h/o PAF Marked anemia - managed by the Med svce Ac alcohol intoxication R hip fracture following alcohol-related fall - s/p R hip surg on 09/25/21 Plan: * Continue clopidogrel for CAD and cor stenting * Continue oral anticoag because of a h/o PAF * We are trying to obtain report of cor stenting from [facility] where pt reports he had it done * Anemia being managed by Dr Key * Monitor labs closely FLORENCE HO MD FACP F[facility] Sep 27, 2021 14:47
--- NOTE | 2021-09-27 16:47 | Progress Note ---
Subjective Subjective/Events-last exam Patient wincing in pain this AM and grabbing at his R hip. He is very hard to understand, unknown baseline. Up to chair with PT this AM. Review of Systems General: Malaise Pulmonary: Dyspnea Cardiovascular: No: Chest Pain, Palpitations Gastrointestinal: No: Nausea, Vomiting, Abdominal Pain Musculoskeletal: leg pain Neurological: Weakness, Incoordination Objective Exam Last Set of Vital Signs Vital Signs Date Time Temp Pulse Resp B/P (MAP) Pulse Ox O2 Delivery O2 Flow Rate FiO2 09/27/21 16:00 36.3 09/27/21 12:33 Nasal Cannula 3.00 09/27/21 12:00 94 09/27/21 07:00 96 09/27/21 06:00 15 09/25/21 14:27 32 Capillary Refill : Less Than 3 SecondsLess Than 3 Seconds I&O Intake and Output 09/27/21 00:00 Intake Total 1550 ml Output Total 1525 ml Balance 25 ml Intake Oral 550 ml IV Total 1000 ml Output Urine Total 1525 ml General: Other (Awake and answers simple questions, garbled speech) Lungs: Clear to Auscultation, Normal Air Movement Heart: Regular Rate, No Murmurs Abdomen: Normal Bowel Sounds, Soft, No Tenderness Skin: Other (bandages present on right hip) Results/Procedures Lab Laboratory Tests 09/26/21 17:50: Glucometer 120H 09/26/21 23:06: Glucometer 120H 09/27/21 05:10: Glucometer 89 09/27/21 05:20: White Blood Count 12.1H, Red Blood Count 2.21L, Hemoglobin 7.9L, Hematocrit 24L, Mean Corpuscular Volume 109H, Mean Corpuscular Hemoglobin 36H, Mean Corpuscular Hemoglobin Concent 33, Red Cell Distribution Width 13.2, Platelet Count 151, Mean Platelet Volume 9.3, Immature Granulocyte % (Auto) 1, Neutrophils (%) (Auto) 72, Lymphocytes (%) (Auto) 15, Monocytes (%) (Auto) 11, Eosinophils (%) (Auto) 2, Basophils (%) (Auto) 0, Neutrophils # (Auto) 8.7H, Lymphocytes # (Auto) 1.8, Monocytes # (Auto) 1.3H, Eosinophils # (Auto) 0.2, Basophils # (Auto) 0.0, Immature Granulocyte # (Auto) 0.1, Sodium Level 134L, Potassium Level 4.2, Chloride Level 101, Carbon Dioxide Level 24, Anion Gap 9, Blood Urea Nitrogen 13, Creatinine 0.69, Estimat Glomerular Filtration Rate 100, BUN/Creatinine Ratio 19, Glucose Level 100, Calcium Level 8.4L, Corrected Calcium 8.9, Phosphorus Level 2.1L, Magnesium Level 2.3, Total Bilirubin 0.8, Aspartate Amino Transf (AST/SGOT) 34, Alanine Aminotransferase (ALT/SGPT) 23, Alkaline Phosphatase 56, Total Protein 6.0L, Albumin 3.4 09/27/21 12:22: Glucometer 117H Microbiology 09/24/21 MRSA Screen - Final, Complete MRSA not isolated Assessment/Plan Assessment/Plan (1) Closed right hip fracture Status: Acute Assessment & Plan: 09/27: repaired yesterday, continue with PT, maybe IRF can didate after monitored for EtOH withdraw (2) Alcohol intoxication in active alcoholic Status: Acute Assessment & Plan: - CIWS, Folic acid/Thiamine Qualifiers: Qualified Codes: F10.229 - Alcohol dependence with intoxication, unspecified (3) Acute and chronic respiratory failure with hypoxia Status: Acute Assessment & Plan: 09/27: IS, OOB with PT, MAT protocol, will continue to monitor (4) Anemia due to acute blood loss Status: Acute Assessment & Plan: 09/27: Will get Fe Studies, patient on Eliquis (5) HTN (hypertension) Status: Chronic Qualifiers: Qualified Codes: I10 - Essential (primary) hypertension (6) HLD (hyperlipidemia) Status: Chronic Qualifiers: Qualified Codes: E78.5 - Hyperlipidemia, unspecified (7) CAD (coronary artery disease) Status: Chronic Assessment & Plan: - Cardiology consulted Clinical Quality Measures DVT/VTE Risk/Contraindication: Contraindications-Pharm: Other *list below* Other: surg ANAIS HDZ MD Sep 27, 2021 16:47
[2021-09-27] MEDS: ONDANSETRON 4 MG/2 ML (SDV) Z0FRAN IV PRN (21:45)
--- NOTE | 2021-09-27 22:07 | Diagnostic Imaging Report ---
INDICATION: Hypoxia worsening. It is compared with 09/14 FINDINGS: Air trapping and COPD as chronic findings present. No effusion or pneumothorax. The heart size stable. No overt vascular congestion. There is some slight left suprahilar subsegmental atelectasis. No airspace consolidation. Old right clavicular deformity chronic. No acute appearing chest wall pathology. IMPRESSION: Severe COPD. Suprahilar subsegmental atelectasis. No focal consolidation, pleural fluid or pneumothorax. Dictated by: Dictated on workstation # [id number]
[2021-09-27] MEDS ORDERED: LORazepam INJ 2 MG/ML (ATIVAN) VIAL IVP PRN (22:45)
[2021-09-27] MEDS ORDERED: DexMEDEtomidine 250 ML DRIP 250 ML IV ONE (22:47)
[2021-09-27 23:06] LABS: ABG PCO2 46 MMHG (35-45); ABG PH 7.42 (7.37-7.43); ABG TCO2 30.9 MMOL/L (21.0-31.0)
[2021-09-27 23:08] LABS: ABG OXYGEN SATURATION 57 % (94-100)
[2021-09-27 23:10] LABS: ABG PO2 30 MMHG (79-93); ALLENS TEST YES-POS; INSPIRED O2 3L; PATIENT TEMP 36.4; VENTILATOR NO
[2021-09-27] MEDS ORDERED: DexMEDEtomidine 1,000 MCG/250 ML IV SCH (23:15)
[2021-09-27 23:25] LABS: ABG BASE EXCESS 4.6 MMOL/L (-2.5-2.5); ABG OXYGEN SATURATION 99 % (94-100); ABG PCO2 45 MMHG (35-45); ABG PH 7.42 (7.37-7.43); ABG PO2 99 MMHG (79-93); ABG TCO2 30.3 MMOL/L (21.0-31.0)
[2021-09-27 23:26] LABS: ALLENS TEST YES-POS; INSPIRED O2 3L; PATIENT TEMP 36.6; VENTILATOR NO
[2021-09-28] MEDS: NS IV 1000 ML 1,000 ML IV SCH ×3 (01:52→15:20)
[2021-09-28] MEDS: RT-ALBUTEROL/IPRATROPIUM 3 ML (DUONEB) VIAL INH SCH ×4 (02:03→20:04)
[2021-09-28 05:24] LABS: BASOPHILS % (AUTO) 0 % (0-10); EOSINOPHILS # (AUTO) 0.3 10^3/uL (0.0-0.3); EOSINOPHILS % (AUTO) 4 % (0-10); LYMPHOCYTES # (AUTO) 1.2 10^3/uL (1.0-4.0); LYMPHOCYTES % (AUTO) 15 % (12-44); MEAN CORPUSCULAR HEMOGLOBIN 37 pg (25-34); MEAN CORPUSCULAR HGB CONC 34 g/dL (32-36); MEAN CORPUSCULAR VOLUME 109 fL (80-99); MEAN PLATELET VOLUME 9.4 fL (9.0-12.2); MONOCYTES # (AUTO) 1.1 10^3/uL (0.0-1.0); MONOCYTES % (AUTO) 14 % (0-12); NEUTROPHILS % (AUTO) 66 % (42-75); PLATELET COUNT 134 10^3/uL (130-400); WHITE BLOOD COUNT 7.5 10^3/uL (4.3-11.0)
[2021-09-28 05:29] LABS: HEMATOCRIT 20 % (40-54); HEMOGLOBIN 6.7 g/dL (13.3-17.7)
[2021-09-28 05:36] LABS: ALBUMIN 2.9 GM/DL (3.2-4.5); POTASSIUM 3.5 MMOL/L (3.6-5.0)
[2021-09-28 05:37] LABS: CALCIUM 7.9 MG/DL (8.5-10.1)
[2021-09-28 05:38] LABS: TOTAL PROTEIN 5.1 GM/DL (6.4-8.2)
[2021-09-28 05:42] LABS: CREATININE SERUM 0.59 MG/DL (0.60-1.30); PHOSPHORUS 2.1 MG/DL (2.3-4.7)
[2021-09-28 05:45] LABS: MAGNESIUM 2.2 MG/DL (1.6-2.4)
[2021-09-28] MEDS ORDERED: NS IV 500 ML 500 ML IV SCH (05:45)
[2021-09-28] MEDS: MAGNESIUM 1 GM/100 ML IVPB 100 ML IV SCH (05:48)
[2021-09-28] MEDS: POTASSIUM CL 10MEQ/50ML IVPB 50 ML IV SCH ×3 (05:48→08:10)
[2021-09-28] MEDS: KCL 20 MEQ TAB (K-DUR) PO SCH (05:49)
--- NOTE | 2021-09-28 08:53 | Progress Note - Cardiology ---
Cardiology SOAP Progress Note Subjective: Agitated and confused overnight Currently on Precedex. Not able to provide any history Objective: I&O/Vital Signs 09/27/21 09/27/21 09/27/21 09/27/21 21:00 21:53 22:00 23:30 Pulse 103 109 97 Resp 22 20 B/P (MAP) 135/92 167/93 120/84 Pulse Ox 100 93 100 99 O2 Delivery Nasal Cannula Nasal Cannula Nasal Cannula Nasal Cannula O2 Flow Rate 3.00 3.00 3.00 3.00 09/27/21 09/27/21 09/28/21 09/28/21 23:41 23:59 00:00 00:00 Temp 36.5 Pulse 97 89 Resp 30 B/P (MAP) 152/86 124/70 Pulse Ox 99 99 O2 Delivery Nasal Cannula Nasal Cannula O2 Flow Rate 3.00 3.00 09/28/21 09/28/21 09/28/21 09/28/21 01:00 01:00 02:00 02:03 Pulse 73 73 68 Resp B/P (MAP) 105/65 106/69 Pulse Ox 99 100 100 O2 Delivery Nasal Cannula Nasal Cannula Nasal Cannula O2 Flow Rate 3.00 3.00 2.00 09/28/21 09/28/21 09/28/21 09/28/21 03:00 04:00 04:00 04:00 Temp 36.2 Pulse 74 73 Resp B/P (MAP) 120/70 128/85 Pulse Ox 97 97 99 O2 Delivery Nasal Cannula Nasal Cannula Nasal Cannula O2 Flow Rate 3.00 3.00 3.00 09/28/21 09/28/21 09/28/21 09/28/21 05:00 05:30 05:45 06:00 Pulse 70 69 69 64 Resp 21 B/P (MAP) 122/70 120/66 118/68 120/69 Pulse Ox 97 97 98 96 O2 Delivery Nasal Cannula Nasal Cannula Nasal Cannula Nasal Cannula O2 Flow Rate 3.00 3.00 3.00 3.00 09/28/21 09/28/21 09/28/21 09/28/21 06:15 06:30 06:45 07:47 Temp 36.6 Pulse 74 70 71 Resp 22 B/P (MAP) 130/78 146/73 142/87 Pulse Ox 97 99 98 O2 Delivery Nasal Cannula Nasal Cannula Nasal Cannula O2 Flow Rate 3.00 3.00 3.00 09/28/21 08:00 Pulse Ox 100 O2 Delivery Nasal Cannula O2 Flow Rate 4.00 09/28/21 00:00 Intake Total 1765.2 ml Output Total 625 ml Balance 1140.2 ml Weight (Pounds): 176 Weight (Ounces): 1.6 Weight (Calculated Kilograms): 79.654108 Constitutional: other ( on Precedex. Not able to provide any history. Appears to be comfortable) Respiratory: No accessory muscle use; other (fair to good, bilateral air entry) Cardiovascular: regular rate-rhythm, S1 and S2, systolic murmur (soft LISA at card base) Gastrointestional: No tender; soft; No guarding, No rebound; audible bowel sounds Extremities: No clubbing, No cyanosis, No significant edema Neurologic/Psychiatric: other (moves all limbs) Skin: normal color, warm/dry; No rash on exposed areas; other (healed scar of sternotomy) Results/Procedures: Labs Laboratory Tests 09/27/21 12:22: Glucometer 117H 09/27/21 22:50: Blood Gas Puncture Site LEFT RADIAL, Blood Gas Patient Temperature 36.4, Arterial Blood pH 7.42, Arterial Blood Partial Pressure CO2 46H, Arterial Blood Partial Pressure O2 30*L, Arterial Blood HCO3 29H, Arterial Blood Total CO2 30.9, Arterial Blood Oxygen Saturation 57L, Arterial Blood Base Excess 5.0H, Daryl Test YES-POS, Blood Gas Ventilator Setting NO, Blood Gas Inspired Oxygen 3L 09/27/21 23:19: Blood Gas Puncture Site LEFT RADIAL, Blood Gas Patient Temperature 36.6, Arterial Blood pH 7.42, Arterial Blood Partial Pressure CO2 45, Arterial Blood Partial Pressure O2 99H, Arterial Blood HCO3 29H, Arterial Blood Total CO2 30.3, Arterial Blood Oxygen Saturation 99, Arterial Blood Base Excess 4.6H, Daryl Test YES-POS, Blood Gas Ventilator Setting NO, Blood Gas Inspired Oxygen 3L 09/27/21 23:32: Glucometer 117H 09/28/21 05:15: White Blood Count 7.5, Red Blood Count 1.83L, Hemoglobin 6.7*L, Hematocrit 20*L, Mean Corpuscular Volume 109H, Mean Corpuscular Hemoglobin 37H, Mean Corpuscular Hemoglobin Concent 34, Red Cell Distribution Width 12.9, Platelet Count 134, Mean Platelet Volume 9.4, Immature Granulocyte % (Auto) 0, Neutrophils (%) (Auto) 66, Lymphocytes (%) (Auto) 15, Monocytes (%) (Auto) 14H, Eosinophils (%) (Auto) 4, Basophils (%) (Auto) 0, Neutrophils # (Auto) 5.0, Lymphocytes # (Auto) 1.2, Monocytes # (Auto) 1.1H, Eosinophils # (Auto) 0.3, Basophils # (Auto) 0.0, Immature Granulocyte # (Auto) 0.0, Sodium Level 136, Potassium Level 3.5L, Chloride Level 102, Carbon Dioxide Level 24, Anion Gap 10, Blood Urea Nitrogen 9, Creatinine 0.59L, Estimat Glomerular Filtration Rate 104, BUN/Creatinine Ra doc 15, Glucose Level 111H, Calcium Level 7.9L, Corrected Calcium 8.8, Phosphorus Level 2.1L, Magnesium Level 2.2, Total Bilirubin 1.0, Aspartate Amino Transf (AST/SGOT) 30, Alanine Aminotransferase (ALT/SGPT) 20, Alkaline Phosphatase 54, Total Protein 5.1L, Albumin 2.9L, Procalcitonin 0.06 Microbiology 09/24/21 MRSA Screen - Final, Complete MRSA not isolated Laboratory Tests 09/27/21 05:20 09/28/21 05:15 A/P: Assessment: CAD - reports h/o CABG in 2003 in [place] - reports coronary intervention about 8 weeks ago in [place], [place] - echo 09-26-21: LVEF 55-60%, PASP could not be estimated On chronic OAC - Dr York progress note of 09/08/21 documents a h/o PAF Profound anemia - managed by the Med svce - pt getting blood transfusion on 09/28/21 Ac alcohol intoxication R hip fracture following alcohol-related fall - s/p R hip surg on 09/25/21 Plan: * Continue clopidogrel for CAD and cor stenting * Continue oral anticoag because of a h/o PAF * Anemia being managed by Dr Key * Replenish electrolytes as needed * Monitor labs closely FLORENCE HO MD FACP [facility] Sep 28, 2021 08:53
--- NOTE | 2021-09-28 09:22 | Physical Therapy Progress Note ---
Therapy Progress Note Patient on Hold per RN due to critical Hgb and sedation due to detox. PT will continue to monitor patient status and resume treatment when patient is able to actively participate with skilled therapy. KALLIE TOMLINSON PT Sep 28, 2021 09:22
--- NOTE | 2021-09-28 09:27 | Occ Therapy Progress Note ---
Therapy Progress Note Patient on hold this date due to sedation due to detox and critical Hgb. OT will monitor pt and initiate evaluation/tx when pt is more medically stable and able to actively participate in skilled therapy. AMMY NATHAN OT Sep 28, 2021 09:27
[2021-09-28 09:36] VITALS: BP 146/83
[2021-09-28] MEDS: APIXABAN 5 MG (ELIQUIS) TABLET PO SCH ×2 (09:37→20:00)
[2021-09-28] MEDS: MULTIVIT W/MINERALS TAB (THERAGRAN M) PO SCH (09:37)
[2021-09-28] MEDS: SENNOSIDES 8.6 MG (SENOKOT) TAB PO SCH ×2 (09:37→19:59)
[2021-09-28] MEDS: DOCUSATE SODIUM 100 MG (COLACE) CAP PO SCH ×2 (09:37→19:59)
[2021-09-28] MEDS: FOLIC ACID 1 MG TAB PO SCH (09:37)
[2021-09-28] MEDS: CLOPIDOGREL 75 MG (PLAVIX) TABLET PO SCH (09:37)
[2021-09-28 09:51] VITALS: BP 114/65
--- NOTE | 2021-09-28 11:11 | Progress Note ---
Subjective Subjective/Events-last exam Patient sleepy this AM. Started on Precedex overnight. Tolerating PO diet and has been doing well with PT Review of Systems General: Other (drifts off to sleep quickly) Pulmonary: No Dyspnea; Cough Cardiovascular: No: Chest Pain, Palpitations Neurological: Weakness, Incoordination Objective Exam Last Set of Vital Signs Vital Signs Date Time Temp Pulse Resp B/P (MAP) Pulse Ox O2 Delivery O2 Flow Rate FiO2 09/28/21 09:51 36.4 75 20 114/65 95 Nasal Cannula 2.00 09/25/21 14:27 32 Capillary Refill : Less Than 3 SecondsLess Than 3 Seconds I&O Intake and Output 09/28/21 00:00 Intake Total 3040.2 ml Output Total 1285 ml Balance 1755.2 ml Intake Oral 1025 ml IV Total 2015.2 ml Output Urine Total 1285 ml General: Alert, No Acute Distress Lungs: Clear to Auscultation, Normal Air Movement Heart: Regular Rate, No Murmurs Abdomen: Normal Bowel Sounds, Soft, No Tenderness, No Masses Neuro: Other (Hard to understand at times) Results/Procedures Lab Laboratory Tests 09/27/21 12:22: Glucometer 117H 09/27/21 22:50: Blood Gas Puncture Site LEFT RADIAL, Blood Gas Patient Temperature 36.4, Arterial Blood pH 7.42, Arterial Blood Partial Pressure CO2 46H, Arterial Blood Partial Pressure O2 30*L, Arterial Blood HCO3 29H, Arterial Blood Total CO2 30.9, Arterial Blood Oxygen Saturation 57L, Arterial Blood Base Excess 5.0H, Daryl Test YES-POS, Blood Gas Ventilator Setting NO, Blood Gas Inspired Oxygen 3L 09/27/21 23:19: Blood Gas Puncture Site LEFT RADIAL, Blood Gas Patient Temperature 36.6, Arterial Blood pH 7.42, Arterial Blood Partial Pressure CO2 45, Arterial Blood Partial Pressure O2 99H, Arterial Blood HCO3 29H, Arterial Blood Total CO2 30.3, Arterial Blood Oxygen Saturation 99, Arterial Blood Base Excess 4.6H, Daryl Test YES-POS, Blood Gas Ventilator Setting NO, Blood Gas Inspired Oxygen 3L 09/27/21 23:32: Glucometer 117H 09/28/21 05:15: White Blood Count 7.5, Red Blood Count 1.83L, Hemoglobin 6.7*L, Hematocrit 20*L, Mean Corpuscular Volume 109H, Mean Corpuscular Hemoglobin 37H, Mean Corpuscular Hemoglobin Concent 34, Red Cell Distribution Width 12.9, Platelet Count 134, Mean Platelet Volume 9.4, Immature Granulocyte % (Auto) 0, Neutrophils (%) (Auto) 66, Lymphocytes (%) (Auto) 15, Monocytes (%) (Auto) 14H, Eosinophils (%) (Auto) 4, Basophils (%) (Auto) 0, Neutrophils # (Auto) 5.0, Lymphocytes # (Auto) 1.2, Monocytes # (Auto) 1.1H, Eosinophils # (Auto) 0.3, Basophils # (Auto) 0.0, Immature Granulocyte # (Auto) 0.0, Sodium Level 136, Potassium Level 3.5L, Chloride Level 102, Carbon Dioxide Level 24, Anion Gap 10, Blood Urea Nitrogen 9, Creatinine 0.59L, Estimat Glomerular Filtration Rate 104, BUN/Creatinine Ratio 15, Glucose Level 111H, Calcium Level 7.9L, Corrected Calcium 8.8, Phosphorus Level 2.1L, Magnesium Level 2.2, Total Bilirubin 1.0, Aspartate Amino Transf (AST/SGOT) 30, Alanine Aminotransferase (ALT/SGPT) 20, Alkaline Phosphatase 54, Total Protein 5.1L, Albumin 2.9L, Procalcitonin 0.06 Microbiology 09/24/21 MRSA Screen - Final, Complete MRSA not isolated Assessment/Plan Assessment/Plan (1) Closed right hip fracture Status: Acute Assessment & Plan: 09/27: repaired yesterday, continue with PT, maybe IRF candidate after monitored for EtOH withdraw 09/28: Accepted by IRF after medically stable from withdraw (2) Alcohol intoxication in active alcoholic Status: Acute Assessment & Plan: - CIWS, Folic acid/Thiamine 09/28: Started on Precedex overnight due to agitation, titrating today Qualifiers: Qualified Codes: F10.229 - Alcohol dependence with intoxication, unspecified (3) Acute and chronic respiratory failure with hypoxia Status: Acute Assessment & Plan: 09/27: IS, OOB with PT, MAT protocol, will continue to monitor (4) Anemia due to acute blood loss Status: Acute Assessment & Plan: 09/27: Will get Fe Studies, patient on Eliquis 09/28: 1 unit pRBCs this AM, Occult stool pending (5) HTN (hypertension) Status: Chronic Qualifiers: Qualified Codes: I10 - Essential (primary) hypertension (6) HLD (hyperlipidemia) Status: Chronic Qualifiers: Qualified Codes: E78.5 - Hyperlipidemia, unspecified (7) CAD (coronary artery disease) Status: Chronic Assessment & Plan: - Cardiology consulted Qualifiers: Qualified Codes: I25.10 - Atherosclerotic heart disease of [place] coronary artery without angina pectoris Clinical Quality Measures DVT/VTE Risk/Contraindication: Contraindications-Pharm: Other *list below* Other: surg ANAIS HDZ MD Sep 28, 2021 11:11
--- NOTE | 2021-09-28 11:51 | Tele-ICU Progress Note ---
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 , now is very somnolent - off precedex , follow mental status Anemia wotjh HB drop ( on Eliquis and plavix) - no sourse of bleeding , but not receiving agressive hydration - for 1 u transfusion 09/28 - to follow after transfusion - as per PCP and cards to decide if safe to hold Eliquis/plavix s/p fall - R IT Femur Fx s/p IM nailing 09/25/21 - pain control - as per ortho Hypoxia - home 2 l - encourage IS - doing poorly Leukocytosis - no fever , check cxr and PCT unremarkable - follow off abx CAD - reports h/o CABG in 2003 ,coronary intervention about 8 weeks ago in [place], [place] - as per cards - on chronic OAC - as per cards , back on Eliquis ETON use - ? withdrawal - benzo prn , vitamins Lines : (Central Line Necessity Reviewed) Myers: + OG: Nutrition: po Analgesia: Anxiety/ delirium VTE Prophylaxis: on - eliquis Stress Ulcer Prophylaxis: po Plans in collaboration with bedside consultants and IM MDs. Discussed with RN to reach out if any questions or concerns A total of 31 minutes of critical care time was devoted to this patient today, required to treat and/or prevent further deterioration of critical care condition ( as above) . Sepsis Event Evaluation Height, Weight, BMI Height: 5'11.00" Weight: 176lbs. 1.6oz. 79.714301od; 24.53 BMI Method: Exam Exam Patient acknowledged, consented, and participated in this virtual visit which was conducted using real time audio/video Vital Signs Date Time Temp Pulse Resp B/P (MAP) Pulse Ox O2 Delivery O2 Flow Rate FiO2 09/28/21 09:51 36.4 75 20 114/65 95 Nasal Cannula 2.00 09/28/21 09:36 36.0 71 20 146/83 99 Nasal Cannula 2.00 09/28/21 09:00 62 22 138/69 100 Nasal Cannula 1.00 09/28/21 08:00 100 Nasal Cannula 4.00 09/28/21 08:00 63 23 137/73 100 Nasal Cannula 2.00 09/28/21 07:47 36.6 09/28/21 07:00 68 23 137/86 100 Nasal Cannula 2.00 09/28/21 07:00 Nasal Cannula 2.00 09/28/21 06:45 71 22 142/87 98 Nasal Cannula 3.00 09/28/21 06:37 71 09/28/21 06:30 70 21 146/73 99 Nasal Cannula 3.00 09/28/21 06:15 74 27 130/78 97 Nasal Cannula 3.00 09/28/21 06:00 64 21 120/69 96 Nasal Cannula 3.00 09/28/21 05:45 69 24 118/68 98 Nasal Cannula 3.00 09/28/21 05:30 69 23 120/66 97 Nasal Cannula 3.00 09/28/21 05:00 70 21 122/70 97 Nasal Cannula 3.00 09/28/21 04:00 99 Nasal Cannula 3.00 09/28/21 04:00 36.2 09/28/21 04:00 73 21 128/85 97 Nasal Cannula 3.00 09/28/21 03:00 74 22 120/70 97 Nasal Cannula 3.00 09/28/21 02:03 100 Nasal Cannula 2.00 09/28/21 02:00 68 22 106/69 100 Nasal Cannula 3.00 09/28/21 01:00 73 19 105/65 99 Nasal Cannula 3.00 09/28/21 01:00 73 09/28/21 00:00 36.5 09/28/21 00:00 89 30 124/70 99 Nasal Cannula 3.00 09/27/21 23:59 99 Nasal Cannula 3.00 09/27/21 23:41 97 152/86 09/27/21 23:30 97 20 120/84 99 Nasal Cannula 3.00 09/27/21 22:00 109 22 167/93 100 Nasal Cannula 3.00 09/27/21 21:53 93 Nasal Cannula 3.00 09/27/21 21:00 103 26 135/92 100 Nasal Cannula 3.00 09/27/21 20:28 36.3 09/27/21 20:00 104 25 132/78 99 Nasal Cannula 3.00 09/27/21 20:00 99 Nasal Cannula 1.00 09/27/21 19:00 104 29 158/88 100 Nasal Cannula 3.00 09/27/21 19:00 104 09/27/21 18:00 97 20 152/86 97 Nasal Cannula 3.00 09/27/21 17:00 93 20 140/77 99 Nasal Cannula 3.00 09/27/21 16:00 99 Nasal Cannula 2.00 09/27/21 16:00 98 20 154/79 97 Nasal Cannula 3.00 09/27/21 16:00 36.3 09/27/21 15:00 101 25 134/87 96 Nasal Cannula 3.00 09/27/21 14:25 98 Nasal Cannula 1.00 09/27/21 14:00 93 17 138/95 100 Nasal Cannula 3.00 09/27/21 13:00 96 09/27/21 13:00 97 19 107/59 98 Nasal Cannula 3.00 09/27/21 12:33 36.6 Nasal Cannula 3.00 09/27/21 12:00 96 14 143/87 100 Nasal Cannula 3.00 09/27/21 12:00 94 Nasal Cannula 3.00 I & O 09/28/21 07:00 Intake Total 2965.2 ml Output Total 1500 ml Balance 1465.2 ml Height & Weight Height: 5'11.00" Weight: 176lbs. 1.6oz. 79.507597tc; 24.53 BMI Method: General Appearance: No Apparent Distress, WD/WN, Chronically ill HEENT: PERRL/EOMI, Normal ENT Inspection, Pharynx Normal, Moist Mucous Membranes Neck: Full Range of Motion, Normal Inspection, Non Tender Respiratory: Lungs Clear, Normal Breath Sounds Cardiovascular: Regular Rate, Rhythm Capillary Refill: Less Than 3 Seconds Extremity: Normal Capillary Refill, Normal Inspection, Normal Range of Motion, Non Tender, No Calf Tenderness, No Pedal Edema Neurologic/Psychiatric: Alert, Oriented x3 Skin: Normal Color, Warm/Dry Lymphatic: No Adenopathy Results Lab Laboratory Tests 09/27/21 05:20 09/28/21 05:15 Assessment/Plan Assessment/Plan 1 ROSE SU MD Sep 28, 2021 11:51
[2021-09-28 12:00] VITALS: BP 142/71
--- NOTE | 2021-09-28 13:42 | Physical Therapy Daily Note ---
PT Daily Note-Current Subjective Patient is very reluctant to work with PT. Patient reports he is having a hard time breathing. RN present and increases O2 to 4L. NC. Mental Status Patient Orientation: Person, Time, Situation Attachments: Oxygen, Myers Catheter, IV Transfers SCALE: Activities may be completed with or without assistive devices. 0-[place]ermpjppke[place] completes the activity by him/herself with no assistance from a helper. 5-Set-up or Clean-up Assistance-helper sets up or cleans up; patient completes activity. [place] assists only prior to or following the activity. 4-Supervision or Touching Assistance-helper provides verbal cues and/or touching/steadying and/or contact guard assistance as patient completes activity. Assistance may be provided throughout the activity or intermittently. 3-Partial/Moderate Assistance-helper does LESS THAN HALF the effort. [place] li fts, holds or supports trunk or limbs, but provides less than half the effort. 2-Substantial/Maximal Assistance-helper does MORE THAN HALF the effort. [place] lifts or holds trunk or limbs and provides more than half the effort. 2-Jbdrnjupg-ecrnug does ALL the effort. Patient does none of the effort to complete the activity. Or, the assistance of 2 or more helpers is required for the patient to complete the activity. If activity was not attempted, code reason: 7-Patient Refused. 9-Not Applicable-not attempted and the patient did not perform the activity before the current illness, exacerbation or injury. 10-Not Attempted due to Environmental Limitations-(lack of equipment, weather restraints, etc.). 88-Not Attempted due to Medical Conditions or Safety Concerns. Lying to Sitting/Side of Bed(Q: 2 Sit to Stand (QC): 2 Chair/Pzb-xj-Burpu Xfer(QC): 2 Weight Bearing Right Lower Extremity: Right Weight Bearing/Tolerated Left Lower Extremity: Left Full Weight Bearing Gait Training Does the Patient Walk?: No and Walking Goal IS indicated Gait Assistive Device: FWW 3 small steps with minimal weight bearing through right LE due to pain Assessment Patient is agitated with activity due to increase SOA and decrease SAO2 with minimal activity. Patient's SAO2 decreases to 81% on 4L NC with long recovery. Patient not able to tolerate treatment and session ceased. PT Short Term Goals Short Term Goals Time Frame: Oct 03, 2021 Roll Left & Right: 5 Sit to lyin Lying to sitting on side of be: 5 Sit to stand: 5 Chair/hde-lk-nioni transfer: 5 Toilet transfer: 5 Car transfer: 5 Walk 10 feet: 5 Walk 50 feet with two turns: 5 Walk 150 feet: 5 Walking 10ft on uneven surface: 5 1 step (curb): 5 4 steps: 5 12 steps: 5 Picking up objects: 5 PT Retirement Goals Retirement Goals PT R Programmer Goals Time Frame: Oct 10, 2021 Roll Left & Right (QC): 6 Sit to Lying (QC): 6 Lying-Sitting on Side/Bed(QC): 6 Sit to Stand (QC): 6 Chair/Ncx-uy-Cpwen Xfer(QC): 6 Toilet Transfer (QC): 6 Car Transfer (QC): 6 Does the Patient Walk: Yes Walk 10 feet (QC): 6 Walk 50ft with 2 Turns (QC): 6 Walk 150 ft (QC): 6 Walking 10ft on Uneven Surface: 6 1 Step (curb) (QC): 6 4 Steps (QC): 6 12 Steps (QC): 6 Picking up an Object (QC): 6 PT Plan Treatment/Plan Treatment Plan: Continue Plan of Care Treatment Plan: Bed Mobility, Education, Functional Activity Yoanna, Functional Strength, Gait, Safety, Therapeutic Exercise, Transfers Treatment Duration: Oct 10, 2021 Frequency: 11 times per week Estimated Hrs Per Day: 1 hour per day Time/GCodes Time In: 1321 Time Out: 1333 Total Billed Treatment Time: 12 Total Billed Treatment 1 visit FA 12 min KALLIE TOMLINSON PT Sep 28, 2021 13:42
[2021-09-28 15:32] LABS: HEMOGLOBIN 7.9 g/dL (13.3-17.7)
[2021-09-29] MEDS: morphine INJ 4 MG/ML 1 ML (VIAL/SYRINGE) IV PRN ×4 (00:42→08:48)
[2021-09-29] MEDS: RT-ALBUTEROL/IPRATROPIUM 3 ML (DUONEB) VIAL INH SCH ×2 (02:34→09:05)
[2021-09-29] MEDS: NS IV 1000 ML 1,000 ML IV SCH (02:43)
[2021-09-29 06:14] LABS: BASOPHILS % (AUTO) 0 % (0-10); EOSINOPHILS # (AUTO) 0.4 10^3/uL (0.0-0.3); EOSINOPHILS % (AUTO) 4 % (0-10); HEMATOCRIT 22 % (40-54); HEMOGLOBIN 7.5 g/dL (13.3-17.7); LYMPHOCYTES # (AUTO) 1.4 10^3/uL (1.0-4.0); LYMPHOCYTES % (AUTO) 18 % (12-44); MEAN CORPUSCULAR HEMOGLOBIN 35 pg (25-34); MEAN CORPUSCULAR HGB CONC 34 g/dL (32-36); MEAN CORPUSCULAR VOLUME 104 fL (80-99); MEAN PLATELET VOLUME 9.5 fL (9.0-12.2); MONOCYTES # (AUTO) 1.4 10^3/uL (0.0-1.0); MONOCYTES % (AUTO) 17 % (0-12); NEUTROPHILS # (AUTO) 4.8 10^3/uL (1.8-7.8); NEUTROPHILS % (AUTO) 60 % (42-75); PLATELET COUNT 149 10^3/uL (130-400)
[2021-09-29 06:28] LABS: ALBUMIN 2.7 GM/DL (3.2-4.5); POTASSIUM 3.5 MMOL/L (3.6-5.0)
[2021-09-29 06:29] LABS: CALCIUM 7.9 MG/DL (8.5-10.1)
[2021-09-29 06:32] LABS: BILIRUBIN,TOTAL 1.2 MG/DL (0.1-1.0)
[2021-09-29 06:34] LABS: CREATININE SERUM 0.57 MG/DL (0.60-1.30); PHOSPHORUS 2.5 MG/DL (2.3-4.7)
[2021-09-29 06:37] LABS: MAGNESIUM 1.8 MG/DL (1.6-2.4)
[2021-09-29] MEDS: MAGNESIUM 1 GM/100 ML IVPB 100 ML IV SCH (06:49)
[2021-09-29] MEDS: KCL 20 MEQ TAB (K-DUR) PO SCH (06:50)
[2021-09-29] MEDS: POTASSIUM CL 10MEQ/50ML IVPB 50 ML IV SCH ×2 (06:50→07:27)
[2021-09-29] MEDS ORDERED: KCL 10 MEQ TAB (MICRO K) PO ONE (07:30)
[2021-09-29] MEDS: DOCUSATE SODIUM 100 MG (COLACE) CAP PO SCH (08:43)
[2021-09-29] MEDS: MULTIVIT W/MINERALS TAB (THERAGRAN M) PO SCH (08:43)
[2021-09-29] MEDS: SENNOSIDES 8.6 MG (SENOKOT) TAB PO SCH (08:43)
[2021-09-29] MEDS: FOLIC ACID 1 MG TAB PO SCH (08:43)
[2021-09-29] MEDS: CLOPIDOGREL 75 MG (PLAVIX) TABLET PO SCH (08:43)
[2021-09-29] MEDS: APIXABAN 5 MG (ELIQUIS) TABLET PO SCH (08:43)
--- NOTE | 2021-09-29 10:02 | Progress Note - Cardiology ---
Cardiology SOAP Progress Note Subjective: Sitting up in bed States he is slowly feeling better, but feeling discouraged C/O chest "soreness" Feels SOB is getting better Objective: I&O/Vital Signs 09/29/21 09/29/21 09/29/21 09/29/21 05:00 06:00 06:49 07:00 Pulse 77 70 79 71 Resp 19 17 26 B/P (MAP) 147/79 130/72 135/87 Pulse Ox 100 100 100 O2 Delivery Nasal Cannula Nasal Cannula Nasal Cannula O2 Flow Rate 1.00 1.00 1.00 09/29/21 09/29/21 09/29/21 09/29/21 08:00 08:00 08:00 09:00 Temp 36.1 Pulse 87 82 Resp 25 39 B/P (MAP) 154/83 145/88 Pulse Ox 98 100 94 O2 Delivery Nasal Cannula Nasal Cannula Nasal Cannula O2 Flow Rate 1.00 2.00 1.00 09/29/21 09/29/21 09/29/21 09/29/21 09:05 10:00 11:30 11:50 Temp 36.8 Pulse 94 B/P (MAP) 151/88 Pulse Ox 95 94 O2 Delivery Nasal Cannula Nasal Cannula O2 Flow Rate 2.00 1.00 09/29/21 09/29/21 11:52 12:05 Temp 36.8 Pulse 94 Pulse Ox 97 97 O2 Delivery Nasal Cannula O2 Flow Rate 3.00 FiO2 32 09/29/21 00:00 Intake Total 1700 ml Output Total 850 ml Balance 850 ml Weight (Pounds): 176 Weight (Ounces): 1.6 Weight (Calculated Kilograms): 79.886016 Constitutional: other ( on Precedex. Not able to provide any history. Appears to be comfortable) Respiratory: No accessory muscle use; other (coarse, poor inspiratory effort) Cardiovascular: regular rate-rhythm, S1 and S2, systolic murmur (soft LISA at card base) Gastrointestional: No tender; soft; No guarding, No rebound; audible bowel sounds Extremities: No clubbing, No cyanosis; no lower extremity edema bilateral; No significant edema Neurologic/Psychiatric: other (moves all limbs) Skin: warm/dry, pallor; No rash on exposed areas; other (healed scar of sternotomy) Results/Procedures: Labs Laboratory Tests 09/28/21 17:54: Glucometer 94 09/28/21 23:33: Glucometer 106 09/29/21 05:17: White Blood Count 8.0, Red Blood Count 2.14L, Hemoglobin 7.5L, Hematocrit 22L, Mean Corpuscular Volume 104H, Mean Corpuscular Hemoglobin 35H, Mean Corpuscular Hemoglobin Concent 34, Red Cell Distribution Width 16.2H, Platelet Count 149, Mean Platelet Volume 9.5, Immature Granulocyte % (Auto) 1, Neutrophils (%) (Auto) 60, Lymphocytes (%) (Auto) 18, Monocytes (%) (Auto) 17H, Eosinophils (%) (Auto) 4, Basophils (%) (Auto) 0, Neutrophils # (Auto) 4.8, Lymphocytes # (Auto) 1.4, Monocytes # (Auto) 1.4H, Eosinophils # (Auto) 0.4H, Basophils # (Auto) 0.0, Immature Granulocyte # (Auto) 0.1, Sodium Level 132L, Potassium Level 3.5L, Chloride Level 99, Carbon Dioxide Level 25, Anion Gap 8, Blood Urea Nitrogen 6L, Creatinine 0.57L, Estimat Glomerular Filtration Rate 105, BUN/Creatinine Ratio 11, Glucose Level 95, Calcium Level 7.9L, Corrected Calcium 8.9, Phosphorus Level 2.5, Magnesium Level 1.8, Total Bilirubin 1.2H, Aspartate Amino Transf (AST/SGOT) 26, Alanine Aminotransferase (ALT/SGPT) 16, Alkaline Phosphatase 50, Total Protein 5.0L, Albumin 2.7L Microbiology 09/24/21 MRSA Screen - Final, Complete MRSA not isolated Procedures NAME: JUAN MANUEL [facility] REC#: [id number] PT STATUS: ADM IN : 1950 PHYSICIAN: MONTSE OBREGON MD ADMIT DATE: 09/24/21/ICU Signed Date of Exam:09/27/21 CHEST 1 VIEW, AP/PA ONLY INDICATION: Hypoxia worsening. It is compared with 09/14 FINDINGS: Air trapping and COPD as chronic findings present. No effusion or pneumothorax. The heart size stable. No overt vascular congestion. There is some slight left suprahilar subsegmental atelectasis. No airspace consolidation. Old right clavicular deformity chronic. No acute appearing chest wall pathology. IMPRESSION: Severe COPD. Suprahilar subsegmental atelectasis. No focal consolidation, pleural fluid or pneumothorax. Dictated by: Dictated on workstation # [id number] Dict: [id number] Trans: 09/27/212224 [facility] [id number] Interpreted by: VALERIANO SAUCEDA Electronically signed by: VALERIANO SAUCEDA 09/27/212224 A/P: Assessment: CAD - reports h/o CABG in 2003 in [place] - reports coronary intervention about 8 weeks ago in [place] - echo 09-26-21: LVEF 55-60%, PASP could not be estimated On chronic OAC - Dr York progress note of 09/08/21 documents a h/o PAF Profound anemia - managed by the Med svce - pt getting blood transfusion on 09/28/21 Ac alcohol intoxication R hip fracture following alcohol-related fall - s/p R hip surg on 09/25/21 Plan: * Continue clopidogrel for CAD and cor stenting * Continue oral anticoag because of a h/o PAF * Anemia being managed by Dr Key * Replenish electrolytes as needed * Monitor labs closely * Dr. Banda will be covering cardiology care TITA EVANS Sep 29, 2021 10:02
--- NOTE | 2021-09-29 10:21 | Discharge Summary ---
Diagnosis/Chief Complaint Date of Admission Sep 24, 2021 at 18:53 Date of Discharge Discharge Diagnosis Problems/Diagnosis: (1) Closed right hip fracture Assessment & Plan: 09/27: repaired yesterday, continue with PT, maybe IRF candidate after monitored for EtOH withdraw 09/28: Accepted by IRF after medically stable from withdraw Status: Acute (2) Alcohol intoxication in active alcoholic Assessment & Plan: - CIWS, Folic acid/Thiamine 09/28: Started on Precedex overnight due to agitation, titrating today Qualifiers: Qualified Codes: F10.229 - Alcohol dependence with intoxication, unspecified Status: Acute (3) Acute and chronic respiratory failure with hypoxia Assessment & Plan: 09/27: IS, OOB with PT, MAT protocol, will continue to monitor Status: Acute (4) Anemia due to acute blood loss Assessment & Plan: 09/27: Will get Fe Studies, patient on Eliquis 09/28: 1 unit pRBCs this AM, Occult stool pending Status: Acute (5) HTN (hypertension) Qualifiers: Qualified Codes: I10 - Essential (primary) hypertension Status: Chronic (6) HLD (hyperlipidemia) Qualifiers: Qualified Codes: E78.5 - Hyperlipidemia, unspecified Status: Chronic (7) CAD (coronary artery disease) Assessment & Plan: - Cardiology consulted Qualifiers: Qualified Codes: I25.10 - Atherosclerotic heart disease of [place] coronary artery without angina pectoris Status: Chronic Discharge Summary-Simple/Stand Consultations Discharge Physical Examination Allergies: Coded Allergies: No Known Drug Allergies (Unverified , 12/12/17) Vitals & I&Os Vital Sign - Last 12Hours Date Time Temp Pulse Resp B/P (MAP) Pulse Ox O2 Delivery O2 Flow Rate FiO2 09/29/21 09:05 95 Nasal Cannula 2.00 09/29/21 09:00 82 39 145/88 09/29/21 08:00 36.1 09/25/21 14:27 32 Intake and Output 09/29/21 00:00 Intake Total 1700 ml Output Total 850 ml Balance 850 ml Hospital Course See final discharge diagnosis. Discharge Instructions to patient/family Please see electronic discharge instructions given to patient. Discharge Medications Reviewed and agree with Discharge Medication list on patient's Discharge Instruction sheet Clinical Quality Measures DVT/VTE Risk/Contraindication: Contraindications-Pharm: Other *list below* Other: surg ANAIS HDZ MD Sep 29, 2021 10:21
[2021-09-29] MEDS ORDERED: MELA3TAB39 PO (10:25)
[2021-09-29] MEDS ORDERED: MULT-1137 PO (10:25)
--- NOTE | 2021-09-29 10:25 | Discharge Summary ---
Discharge [facility] Patient Instructions Goal/Follow Up Appt: Transfer to IRF ANAIS HDZ MD Sep 29, 2021 10:25
--- NOTE | 2021-09-29 11:24 | Tele-ICU Progress Note ---
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 withdrawal - benzo prn , vitamins Lines : (Central Line Necessity Reviewed) Myers: + OG: Nutrition: po Analgesia: Anxiety/ delirium VTE Prophylaxis: on - eliquis Stress Ulcer Prophylaxis: po Plans in collaboration with bedside consultants and IM MDs. Discussed with RN to reach out if any questions or concerns A total of 10 minutes of critical care time was devoted to this patient today, required to treat and/or prevent further deterioration of critical care condition ( as above) . Sepsis Event Evaluation Height, Weight, BMI Height: 5'11.00" Weight: 176lbs. 1.6oz. [id number]; 26.32 BMI Method: Exam Exam Patient acknowledged, consented, and participated in this virtual visit which was conducted using real time audio/video Vital Signs Date Time Temp Pulse Resp B/P (MAP) Pulse Ox O2 Delivery O2 Flow Rate FiO2 09/29/21 10:00 94 151/88 94 Nasal Cannula 1.00 09/29/21 09:05 95 Nasal Cannula 2.00 09/29/21 09:00 82 39 145/88 94 Nasal Cannula 1.00 09/29/21 08:00 100 Nasal Cannula 2.00 09/29/21 08:00 87 25 154/83 98 Nasal Cannula 1.00 09/29/21 08:00 36.1 09/29/21 07:00 71 26 135/87 100 Nasal Cannula 1.00 09/29/21 06:49 79 09/29/21 06:00 70 17 130/72 100 Nasal Cannula 1.00 09/29/21 05:00 77 19 147/79 100 Nasal Cannula 1.00 09/29/21 04:00 98 Nasal Cannula 2.00 09/29/21 04:00 36.9 09/29/21 04:00 71 18 122/70 100 Nasal Cannula 1.00 09/29/21 03:00 70 14 132/65 100 Nasal Cannula 1.00 09/29/21 02:34 100 Nasal Cannula 2.00 09/29/21 02:00 67 23 116/70 100 Nasal Cannula 1.00 09/29/21 01:00 69 18 120/66 98 Nasal Cannula 1.00 09/29/21 01:00 73 09/29/21 00:07 100 Nasal Cannula 2.00 09/29/21 00:00 71 25 127/73 100 Nasal Cannula 1.00 09/29/21 00:00 36.4 09/28/21 23:00 73 23 135/72 100 Nasal Cannula 1.00 09/28/21 22:00 78 20 139/67 100 Nasal Cannula 1.00 09/28/21 21:00 81 19 122/65 100 Nasal Cannula 1.00 09/28/21 20:12 97 Nasal Cannula 3.00 09/28/21 20:04 99 Nasal Cannula 2.00 09/28/21 20:00 98 32 130/109 91 Nasal Cannula 1.00 09/28/21 19:56 36.8 09/28/21 19:00 80 09/28/21 19:00 78 26 117/77 100 Nasal Cannula 1.00 09/28/21 18:29 131/96 09/28/21 18:00 76 24 83/73 100 Nasal Cannula 1.00 09/28/21 17:00 65 19 134/71 100 Nasal Cannula 1.00 09/28/21 16:00 100 Nasal Cannula 4.00 09/28/21 16:00 74 21 130/69 100 Nasal Cannula 1.00 09/28/21 16:00 36.0 09/28/21 15:12 100 Nasal Cannula 2.00 09/28/21 15:00 83 28 125/75 100 Nasal Cannula 1.00 09/28/21 14:00 149 112/60 94 Nasal Cannula 1.00 09/28/21 13:00 149 112/60 94 Nasal Cannula 1.00 09/28/21 12:55 73 09/28/21 12:34 73 09/28/21 12:02 36.4 09/28/21 12:00 100 Nasal Cannula 4.00 09/28/21 12:00 36.4 70 16 142/71 96 Nasal Cannula 2.00 09/28/21 12:00 64 142/71 99 Nasal Cannula 1.00 I & O 09/29/21 07:00 Intake Total 3650 ml Output Total 2150 ml Balance 1500 ml Height & Weight Height: 5'11.00" Weight: 176lbs. 1.6oz. 79.905848ji; 26.32 BMI Method: General Appearance: No Apparent Distress, WD/WN, Chronically ill HEENT: PERRL/EOMI, Normal ENT Inspection, Pharynx Normal, Moist Mucous Membr anes Neck: Full Range of Motion, Normal Inspection, Non Tender Respiratory: Lungs Clear, Normal Breath Sounds Cardiovascular: Regular Rate, Rhythm Capillary Refill: Less Than 3 Seconds Extremity: Normal Capillary Refill, Normal Inspection, Normal Range of Motion, Non Tender, No Calf Tenderness, No Pedal Edema Neurologic/Psychiatric: Alert, Oriented x3 Skin: Normal Color, Warm/Dry Lymphatic: No Adenopathy Results Lab Laboratory Tests 09/28/21 05:15 09/28/21 15:15 09/29/21 05:17 Assessment/Plan Assessment/Plan 1 ROSE SU MD Sep 29, 2021 11:24
[2021-09-29] MEDS: RT-ALBUTEROL/IPRATROPIUM 3 ML (DUONEB) VIAL INH PRN (11:52)
[2021-09-29 12:05] VITALS: BP 151/88
[2021-09-29] MEDS ORDERED: RT-ALBUTEROL/IPRATROPIUM 3 ML (DUONEB) VIAL INH SCH (14:00)
--- NOTE | 2021-09-29 16:07 | Progress Note - Cardiology ---
Cardiology SOAP Progress Note Subjective: No cp or palp or syncope or shortness of breath Gen weakness and malaise present - improving No n/v/d Objective: I&O/Vital Signs 09/29/21 09/29/21 09/29/21 09/29/21 05:00 06:00 06:49 07:00 Pulse 77 70 79 71 Resp 19 17 26 B/P (MAP) 147/79 130/72 135/87 Pulse Ox 100 100 100 O2 Delivery Nasal Cannula Nasal Cannula Nasal Cannula O2 Flow Rate 1.00 1.00 1.00 09/29/21 09/29/21 09/29/21 09/29/21 08:00 08:00 08:00 09:00 Temp 36.1 Pulse 87 82 Resp 25 39 B/P (MAP) 154/83 145/88 Pulse Ox 98 100 94 O2 Delivery Nasal Cannula Nasal Cannula Nasal Cannula O2 Flow Rate 1.00 2.00 1.00 09/29/21 09/29/21 09/29/21 09/29/21 09:05 10:00 11:30 11:50 Temp 36.8 Pulse 94 B/P (MAP) 151/88 Pulse Ox 95 94 O2 Delivery Nasal Cannula Nasal Cannula O2 Flow Rate 2.00 1.00 09/29/21 09/29/21 11:52 12:05 Temp 36.8 Pulse 94 Pulse Ox 97 97 O2 Delivery Nasal Cannula O2 Flow Rate 3.00 FiO2 32 09/29/21 00:00 Intake Total 1700 ml Output Total 850 ml Balance 850 ml Weight (Pounds): 176 Weight (Ounces): 1.6 Weight (Calculated Kilograms): 79.186271 Constitutional: other ( on Precedex. Not able to provide any history. Appears to be comfortable) Respiratory: No accessory muscle use; other (coarse, poor inspiratory effort) Cardiovascular: regular rate-rhythm, S1 and S2, systolic murmur (soft LISA at card base) Gastrointestional: No tender; soft; No guarding, No rebound; audible bowel sounds Extremities: No clubbing, No cyanosis; no lower extremity edema bilateral; No significant edema Neurologic/Psychiatric: other (moves all limbs) Skin: warm/dry, pallor; No rash on exposed areas; other (healed scar of sternotomy) Results/Procedures: Labs Laboratory Tests 09/28/21 17:54: Glucometer 94 09/28/21 23:33: Glucometer 106 09/29/21 05:17: White Blood Count 8.0, Red Blood Count 2.14L, Hemoglobin 7.5L, Hematocrit 22L, Mean Corpuscular Volume 104H, Mean Corpuscular Hemoglobin 35H, Mean Corpuscular Hemoglobin Concent 34, Red Cell Distribution Width 16.2H, Platelet Count 149, Mean Platelet Volume 9.5, Immature Granulocyte % (Auto) 1, Neutrophils (%) (Auto) 60, Lymphocytes (%) (Auto) 18, Monocytes (%) (Auto) 17H, Eosinophils (%) (Auto) 4, Basophils (%) (Auto) 0, Neutrophils # (Auto) 4.8, Lymphocytes # (Auto) 1.4, Monocytes # (Auto) 1.4H, Eosinophils # (Auto) 0.4H, Basophils # (Auto) 0.0, Immature Granulocyte # (Auto) 0.1, Sodium Level 132L, Potassium Level 3.5L, Chloride Level 99, Carbon Dioxide Level 25, Anion Gap 8, Blood Urea Nitrogen 6L, Creatinine 0.57L, Estimat Glomerular Filtration Rate 105, BUN/Creatinine Ratio 11, Glucose Level 95, Calcium Level 7.9L, Corrected Calcium 8.9, Phosphorus Level 2.5, Magnesium Level 1.8, Total Bilirubin 1.2H, Aspartate Amino Transf (AST/SGOT) 26, Alanine Aminotransferase (ALT/SGPT) 16, Alkaline Phosphatase 50, Total Protein 5.0L, Albumin 2.7L Microbiology 09/24/21 MRSA Screen - Final, Complete MRSA not isolated Laboratory Tests 09/28/21 05:15 09/28/21 15:15 09/29/21 05:17 A/P: Assessment: CAD - reports h/o CABG in 2003 in [place] - reports coronary intervention about 8 weeks ago in [place] - echo 09-26-21: LVEF 55-60%, PASP could not be estimated On chronic OAC - Dr York progress note of 09/08/21 documents a h/o PAF Profound anemia - managed by the Med svce - pt getting blood transfusion on 09/28/21 Ac alcohol intoxication R hip fracture following alcohol-related fall - s/p R hip surg on 09/25/21 Plan: * Continue clopidogrel for CAD and cor stenting * Continue oral anticoag because of a h/o PAF * Anemia being managed by Dr Key * Replenish electrolytes as needed * Monitor labs closely * Dr. Banda will be covering Cardiology FLORENCE HO MD FACP FAC CCDS Sep 29, 2021 16:07
== END 2021-09-29 11:30 | DRG 480 ==
LOC: EDUNIT# 17:23 → ER 17:26 → ICU 18:53
PROVIDERS: ADMIT Internal Medicine; ATTEND Family Medicine
PROC: 0QS636Z Reposition Right Upper Femur with Intramedullary Internal Fixation Device, Percutaneous Approach (ICD-10-PCS; principal; 2021-09-25 08:22)
DX: S72.141A Displaced intertrochanteric fracture of right femur, initial encounter for closed fracture (principal); J96.21 Acute and chronic respiratory failure with hypoxia; F10.239 Alcohol dependence with withdrawal, unspecified; D62 Acute posthemorrhagic anemia; F10.229 Alcohol dependence with intoxication, unspecified; Y90.8 Blood alcohol level of 240 mg/100 ml or more; J43.9 Emphysema, unspecified; I25.10 Atherosclerotic heart disease of native coronary artery without angina pectoris; Z20.822 Contact with and (suspected) exposure to COVID-19; E78.00 Pure hypercholesterolemia, unspecified; I10 Essential (primary) hypertension; K21.9 Gastro-esophageal reflux disease without esophagitis; F41.9 Anxiety disorder, unspecified; F32.A Depression, unspecified; I25.2 Old myocardial infarction; Z95.1 Presence of aortocoronary bypass graft; Z95.5 Presence of coronary angioplasty implant and graft; Z79.01 Long term (current) use of anticoagulants; W18.30XA Fall on same level, unspecified, initial encounter; Y92.000 Kitchen of unspecified non-institutional (private) residence as the place of occurrence of the external cause
CPT/HCPCS: 36415; 51702; 70450; 71045; 71260; 72125; 72170; 73552; 74177; 76000; 80048; 80053; 80076; 80306; 80320; 81000; 82150; 82728; 82805; 82947; 83540; 83550; 83690; 83735; 84100; 84145; 85007; 85014; 85018; 85025; 85027; 85610; 85730; 86850; 86900; 86901; 86920; 87081; 87636; 93005; 93041; 93306; 94640; 94664

== ENCOUNTER 2021-09-29 09:58 | Inpatient (IN) | payer MEDICARE ==
[~2021-09-29] VITALS: Ht 180.3 cm; Wt 81.5 kg
[2021-09-29] MEDS ORDERED: MULT-1137 PO (10:25)
[2021-09-29] MEDS ORDERED: MELA3TAB39 PO (10:25)
--- NOTE | 2021-09-29 10:36 | PM&R Post Admission Assessment ---
PM&R HP Date of Visit: Sep 29, 2021 Time of Visit: 12:00 History of Present Illness CC: Right hip fracture HPI: This is a 70 yr old male with a known history of recent afib. He was found down at home to have a right hip fracture and acute alcohol intoxication. Pt has a history of severe alcoholism. He was placed in the ICU and monitored closely for alcohol withdraw and post-op recovery. He did very well. He is hypoxic we will monitor that closely. Volume overload could be a factor in hypoxia. Patient is mostly sedentary at home and dependent on O2. Anxiolytics ordered. H&P HPI: Luis Armando Fairbanks is a 70yoWM with past medical history significant for CAD, CABG, HTN, HLD, and known alcoholic with recent h/o new AF who presented to the ER following a fall while intoxicated and was found to have a right hip fracture which has been repaired by Dr Johns. He was admitted to the ICU where he stayed for 4 days. Alcohol withdrawal protocol was maintained and pain controlled. He has anemia due to acute blood loss that is being monitored. He has been receiving electrolyte and vitamin supplementation. He is POD#4 and medically stable to work with PT/OT. PMH: CAD CABG HTN HLD GERD Esophageal Varicies Alcohol abuse FH: Unremarkable SH: , Retired, former smoker, every day beer drinker ROS: Negative for SOB, chest pain, N/V, constipation, or diarrhea Positive for weakness and malaise A/P: 1) Right Hip Fracture * POD#4 s/p intramedullary nailing * Pain control * PT/OT 2) Alcohol Abuse * Continue to monitor electrolytes * Watch for signs of withdrawal 3) Anemia * Continue to monitor Hgb * Iron studies pending Past Albymnr-Sapjqj-Vjbure Hx Past Med/Social Hx: Reviewed Nursing Past Med/Soc Hx, Reviewed and Corrections made Patient Social History Marrital Status: Employed/Student: retired Alcohol Use: Regular Use Alcohol Beverage of Choice: Whiskey Recreational Drug Use: No Drug of Choice: denies Smoking Status: Current Everyday Smoker Former Smoker, Quit: Dec 13, 2016 Type Used: Cigarettes 2nd Hand Smoke Exposure: No Recent Hopitalizations: No Immunizations Up To Date Tetanus Booster (TDap): Unknown Date of Pneumonia Vaccine: Aug 15, 2016 Seasonal Allergies Seasonal Allergies: No Past Medical History Surgeries: Abdominal, Cardiac, CABG, Coronary Stent, Vasectomy Currently Using CPAP: No Currently Using BIPAP: No Cardiac: Atrial Fibrillation, Coronary Artery Disease, Heart Attack, High Cholesterol, Hypertension Reproductive: No Gastrointestinal: Gastroesophageal Reflux, Esophageal Varices, Irritable Bowel Musculoskeletal: Degenerate Disk Disease, Chronic Back Pain, Fractures Loss of Vision: Denies Hearing Impairment: Denies Psychosocial: Anxiety, Depression History of Blood Disorders: No Family History No Pertinent Family Hx PM&R Allergy/Meds/Data Review Allergies Coded Allergies: No Known Drug Allergies (Unverified , 12/12/17) Home Medications Scheduled Apixaban (Eliquis), 5 MG PO BID, (Reported) Clopidogrel Bisulfate (Clopidogrel), 75 MG PO DAILY, (Reported) Diltiazem HCl (Diltiazem 24Hr ER), 120 MG PO DAILY, (Reported) Gabapentin (Gabapentin), 400 MG PO TID, (Reported) Metoprolol Tartrate (Metoprolol Tartrate), 25 MG PO BID, (Reported) Multivitamin/Iron/Folic Acid (Tab-A-Andrei Multivit with Iron), 1 EA PO DAILY@0700 Scheduled PRN Albuterol Sulfate (Proair Hfa), 2 PUFF IH Q4H PRN for SHORTNESS OF BREATH, (Reported) Albuterol Sulfate (Albuterol Sulfate), 2.5 MG INH Q6H PRN for SHORTNESS OF BREATH, (Reported) Melatonin (Melatonin), 3 MG PO HS PRN for SLEEP Discontinued Medications Apixaban (Eliquis), 5 MG PO BID Discontinued Reason: No Longer Taking Cephalexin (Cephalexin), 500 MG PO BID Discontinued Reason: No Longer Taking Clopidogrel Bisulfate (Clopidogrel), 75 MG PO DAILY Discontinued Reason: No Longer Taking Diltiazem HCl (Diltiazem 24Hr ER), 120 MG PO DAILY Discontinued Reason: No Longer Taking Isosorbide Mononitrate (Isosorbide Mononitrate ER), 30 MG PO DAILY Discontinued Reason: No Longer Taking Isosorbide Mononitrate (Isosorbide Mononitrate ER), 30 MG PO DAILY, (Reported) Metoprolol Tartrate (Metoprolol Tartrate), 25 MG PO BID Discontinued Reason: No Longer Taking Current Medications Current Medications Reviewed Review of Systems Constitutional: see HPI, dizziness, malaise, weakness EENTM: no symptoms reported Respiratory: dyspnea on exertion, short of breath Cardiovascular: no symptoms reported Gastrointestinal: no symptoms reported Genitourinary: no symptoms reported Musculoskeletal: back pain, joint pain Skin: no symptoms reported Psychiatric/Neurological: Anxiety, Depressed, Weakness All Other Systems Reviewed Negative Unless Noted: Yes Physical Exam Physical Exam Vital Signs Capillary Refill : Height, Weight, BMI Height: 5'11.00" Weight: 176lbs. 1.6oz. [id number]; 26.32 BMI Method: General Appearance: No Apparent Distress, WD/WN, Anxious, Chronically ill Eyes: Bilateral Eye Normal Inspection, Bilateral Eye PERRL HEENT: PERRL/EOMI, Normal ENT Inspection, Pharynx Normal Neck: Full Range of Motion, Normal Inspection, Non Tender, Supple, Carotid Bruit Respiratory: Chest Non Tender, Lungs Clear, No Accessory Muscle Use, No Respiratory Distress, Decreased Breath Sounds Cardiovascular: No Edema, No Gallop, No JVD, No Murmur, Normal Peripheral Pulses, Irregularly Irregular, Tachycardia Gastrointestinal: Normal Bowel Sounds, No Organomegaly, No Pulsatile Mass, Non Tender, Soft Back: Normal Inspection, No CVA Tenderness, No Vertebral Tenderness Extremity: Normal Capillary Refill, Normal Inspection, Normal Range of Motion, Non Tender, No Calf Tenderness, No Pedal Edema Neurologic/Psychiatric: Alert, No Motor/Sensory Deficits, Normal Mood/Affect, Abnormal Gait, Disoriented, Motor Weakness (all extremities) Skin: Normal Color, Warm/Dry Lymphatic: No Adenopathy PM&R Medical Assessment & Plan REHAB/MEDICAL ASSESSMENT AND PLAN: REHAB IMPAIRMENT GROUP: Right hip fracture ETIOLOGIC DIAGNOSIS: Right hip fracture The comorbidities that impact the patients function and/or functional outcome by: alcoholism, recent withdrawal, post op anemia, AF, CAD, smoker REHAB PLAN: The patient is being admitted to our comprehensive inpatient rehabilitation facility and can tolerate the intensity of service consisting of at least: 180 minutes of therapy a day, 5 out of 7 days a week Rehab treatment will consist of: PT OT will need to focus on regaining function along with respiratory stamina and increase strengthening and increase overall stamina in order to return home The patient/family has a good understanding of our discharge process and will benefit from an interdisciplinary inpatient rehabilitation program. The patient has potential to make improvement and is in need of at least two of the following multidisciplinary therapies including but not limited to physical, occupational, speech, and prosthetics and orthotics. Additionally the patient will need services from respiratory, nutritional services, wound care, psychology, etc. (Customize this to each patient). Given the patients complex condition and risk of further medical complications, rehabilitation services cannot be safely or effectively provided at a lower level of care such as a half-way facility. BARRIERS TO DISCHARGE: Alcoholism ESTIMATED LOS: 10 days DISPOSITION: Home RELEVANT CHANGES SINCE PREADMISSION SCREENING: I have compared the patients medical and functional status at the time of the preadmission screening and there are: no changes PROGNOSIS: Fair REHABILITATION GOALS: 1. PT OT will need to focus on regaining function along with respiratory stamina and increase strengthening and increase overall stamina in order to return home All the above goals were reviewed with the patient and he/she is in agreement. By signing this document, I acknowledge that I have personally performed a full physical examination on this patient within 24 hours of admission to this inpatient rehabilitation facility and have determined the patient to be able to tolerate the above course of treatment at an intensive level for a reasonable period of time. I will be completing a detailed individualized Plan of Care for this patient by day #4 of the patients stay based upon the Preadmission Screen, the Post-Admission Evaluation, and the therapy evaluations. Admission Dx/Comorbidities: (1) Closed right hip fracture Status: Acute ICD Codes: S72.001A - Fracture of unspecified part of neck of right femur, initial encounter for closed fracture (2) CAD (coronary artery disease) Status: Chronic ICD Codes: I25.10 - Atherosclerotic heart disease of [place] coronary artery without angina pectoris (3) HLD (hyperlipidemia) Status: Chronic ICD Codes: E78.5 - Hyperlipidemia, unspecified (4) Acute and chronic respiratory failure with hypoxia Status: Acute ICD Codes: J96.21 - Acute and chronic respiratory failure with hypoxia (5) Alcohol intoxication in active alcoholic Status: Acute ICD Codes: F10.129 - Alcohol abuse with intoxication, unspecified (6) HTN (hypertension) Status: Chronic ICD Codes: I10 - Essential (primary) hypertension (7) Anemia due to acute blood loss Status: Acute ICD Codes: D62 - Acute posthemorrhagic anemia (8) Alcoholism Status: Acute ICD Codes: F10.20 - Alcohol dependence, uncomplicated Assessment/Plan Assessment and Plan Assess & Plan/Chief Complaint Assessment: Right hip fracture Alcoholism s/p active withdrawal Smoker AF CAD CABG hx Plan: Monitor closely Louis rios O2 PT OT with rest breaks ALEXANDRA JUDGE DO Sep 29, 2021 10:36
[2021-09-29] MEDS ORDERED: MELATONIN 3 MG TABLET PO PRN (10:45)
[2021-09-29] MEDS ORDERED: guaiFENesin/CODEINE (ROBITUSSIN AC) 10ML UDC PO PRN (10:45)
[2021-09-29] MEDS ORDERED: diphenhydrAMINE 25 MG TAB (BENADRYL) PO PRN (10:45)
[2021-09-29] MEDS ORDERED: CALCIUM CARBONATE 500 MG (TUMS) TAB.CHEW PO PRN (10:45)
[2021-09-29] MEDS ORDERED: LOPERAMIDE 2 MG (IMODIUM) TABLET PO PRN (10:45)
[2021-09-29] MEDS ORDERED: LACTULOSE SYRUP 10GM/15ML (ENULOSE) 30ML UDC PO PRN (10:45)
[2021-09-29] MEDS ORDERED: DOCUSATE SODIUM 100 MG (COLACE) CAP PO PRN (10:45)
[2021-09-29] MEDS ORDERED: BISACODYL 10 MG SUPP (DULCOLAX) PR PRN ×2 (10:45→13:15)
[2021-09-29] MEDS ORDERED: FLEET ENEMA ADULT 1 EA BTL PR PRN (10:45)
[2021-09-29 12:00] VITALS: BP 189/97
--- NOTE | 2021-09-29 12:15 | Physical Therapy Evaluation ---
PT Evaluation-General Medical Diagnosis Admission Date 09-29-21 Medical Diagnosis: Right femur fracture Onset Date: Sep 24, 2021 Therapy Diagnosis Therapy Diagnosis: Gait deficit, strength deficit Height/Weight Height (Feet): 5 Height (Inches): 11.00 Weight (Pounds): 176 Weight (Ounces): 1.6 Precautions Precautions/Isolations: Fall Prevention Weight Bear Status Right Lower Extremity: Right Weight Bearing/Tolerated Left Lower Extremity: Left Full Weight Bearing Referral Physician: Dr. Key Reason for Referral: Evaluation/Treatment Medical History Pertinent Medical History: Atrial Fib, Alcoholism, CABG, CAD, COPD, GERD, HTN, [place] Social History Home: Single Level Current Living Status: Spouse Entry Into Home: Stairs With Railing PT Steps Inside Home: 5 Prior Prior Level of Function SCALE: Activities may be completed with or without assistive devices. 0-Uwkbycjoll-vuchaiq completes the activity by him/herself with no assistance from a helper. 5-Set-up or Clean-up Assistance-helper sets up or cleans up; patient completes activity. [place] assists only prior to or following the activity. 4-Supervision or Touching Assistance-helper provides verbal cues and/or touching/steadying and/or contact guard assistance as patient completes activity. Assistance may be provided throughout the activity or intermittently. 3-Partial/Moderate Assistance-helper does LESS THAN HALF the effort. [place] lifts, holds or supports trunk or limbs, but provides less than half the effort. 2-Substantial/Maximal Assistance-helper does MORE THAN HALF the effort. [place] lifts or holds trunk or limbs and provides more than half the effort. 0-Kncenmclo-wqcmfq does ALL the effort. Patient does none of the effort to complete the activity. Or, the assistance of 2 or more helpers is required for the patient to complete the activity. If activity was not attempted, code reason: 7-Patient Refused. 9-Not Applicable-not attempted and the patient did not perform the activity before the current illness, exacerbation or injury. 10-Not Attempted due to Environmental Limitations-(lack of equipment, weather restraints, etc.). 88-Not Attempted due to Medical Conditions or Safety Concerns. Bed Mobility: 6 Transfers (B,C,W/C): 6 Gait: 6 Stairs: 6 Indoor Mobility (Ambulation): Independent Stairs: Independent Prior Devices Use: Walker PT Evaluation-Current Subjective Patient lying supine in bed upon PT arrival, agreeable to treatment. Patient rates pain at 10/10 in right LE, nurse reported. She states he just had a pain pill 1 hour ago and cannot have one yet. He also reports SOA and requests a breathing treatment. Respiratory Therapy arrives to administer Albuterol treatment. Objective Patient Orientation: Person, Place, Time, Situation Attachments: Oxygen, Myers Catheter, IV ROM/Strength ROM Lower Extremities Right hip limited all planes due to pain, right knee and ankle WFLs. Left LE WFLs all planes Strength Lower Extremities Right N/A due to pain however he is unable to move his right LE to sit at this edge of bed so 3-/5 or less. Left LE 4-/5 all planes. Sensory Vision: Functional Hearing: Functional Sensation Right Lower Extremit: Intact Sensation Left Lower Extremity: Intact Transfers Roll Left & Right (QC): 2 Sit to Lying (QC): 2 Lying to Sitting/Side of Bed(Q: 2 Sit to Stand (QC): 2 Chair/Iyf-pz-Yzgxh Xfer(QC): 2 Toilet Transfer (QC): 2 Car Transfer (QC): 2 Gait Does the Patient Walk?: Yes Mode of Locomotion: Walk Anticipated Mode of Locomotion: Walk Walk 10 feet (QC): 88 Walk 50 ft with 2 Turns(QC): 88 Walk 150 ft (QC): 88 Walking 10ft/uneven surface-QC: 88 Distance: 6 feet Gait Assistive Device: FWW Wheelchair Training Does the Pt Use a Wheelchair?: No Wheel 50 ft with 2 turns (QC): 9 Wheel 150 ft (QC): 9 Stairs 1 Step (curb) (QC): 88 4 Steps (QC): 88 12 Steps (QC): 88 Balance Sitting Static: Fair Sitting Dynamic: Fair Standing Static: Poor Standing Dynamic: Poor Picking up an Object (QC): 88 Assessment/Needs Patient did not tolerate evaluation very well. He constantly reports pain in his right thigh and requests pain medicine and reports SOA, asking for frequent breathing treatments even after just having one. He performs all observed bed mobility and transfers with max A. Patient is able to ambulate 6 feet with FWW, with max A and w/c follow from 2nd person. Patient demonstrates significant antalgic gait pattern with step to gait pattern on the right LE, poor posture and difficulty bearing weight on Right LE. Patient transferred to ARU via transport chair. Patient requires max A fro SPT to the recliner. Patient in recliner with all needs met, nurse in the room and call light in reach. Rehab Potential: Fair PT Assisted Goals Surgical Territory Manager Goals PT Assisted Goals Time Frame: Oct 22, 2021 Roll Left & Right (QC): 4 Sit to Lying (QC): 4 Lying-Sitting on Side/Bed(QC): 4 Sit to Stand (QC): 4 Chair/Jfy-sh-Yhdvo Xfer(QC): 4 Toilet Transfer (QC): 4 Car Transfer (QC): 4 Does the Patient Walk: Yes Walk 10 feet (QC): 4 Walk 50ft with 2 Turns (QC): 4 Walk 150 ft (QC): 3 Walking 10ft on Uneven Surface: 4 1 Step (curb) (QC): 3 4 Steps (QC): 3 12 Steps (QC): 3 Picking up an Object (QC): 4 Does the Pt use WC or Scooter?: No Wheel 50 feet with 2 turns (QC: 9 Wheel 150 feet: 9 PT Plan Problem List Problem List: Activity Tolerance, Functional Strength, Safety, Balance, Gait, Transfer, Bed Mobility, ROM Treatment/Plan Treatment Plan: Continue Plan of Care Treatment Plan: Bed Mobility, Education, Functional Activity Yoanna, Functional Strength, Group Therapy, Gait, Safety, Therapeutic Exercise, Transfers Treatment Duration: Nov 05, 2021 Frequency: At least 5 of 7 days/Wk (IRF) Estimated Hrs Per Day: 1.5 hours per day Patient and/or Family Agrees t: Yes Safety Risks/Education Patient Education: Gait Training, Transfer Techniques, Reviewed Precautions, Safety Issues Teaching Recipient: Patient Teaching Methods: Demonstration, Discussion Response to Teaching: Reinforcement Needed Time/GCodes Time In: 1130 Time Out: 1210 Total Billed Treatment Time: 30 Total Billed Treatment Visit, BROCK Dickens JOHN A PT Sep 29, 2021 12:15
--- NOTE | 2021-09-29 12:53 | ST Cognitive Linguistic Eval ---
Speech Evaluation-General Medical Diagnosis Right Femur Fracture Onset Date: Sep 24, 2021 Therapy Diagnosis Therapy Diagnosis: Impaired Cognitive Linguistic Skills Precautions Precautions: Fall, Pressure Ulcer Precautions/Isolations: Fall Prevention, Standard Precautions, Pressure Ulcer Referral Referring Physician: Dr. Key Reason for Referral: Evaluation/Treatment Medical History Pertinent Medical History: Atrial Fib, Alcoholism, CABG, CAD, COPD, GERD, HTN, [place] Current History Please refer to the patient's medical chart for information pertaining to his current medical history. Reviewed History: Yes Social History Current Living Status: Spouse Speech PLF-Current Status Prior Level of Function The patient was unable to answer questions regarding difficulties or concerns with his speech, language, or cognitive abilities. Subjective The patient was seated upright in a recliner, eyes closed while verbally greeting the clinician. The patient remains with his eyes closed for a majority of the evaluation, however, continues to participate and respond to the clinician's questions. Language Eval: Auditory Comprehends Simple Yes/No Ques: Functional Indent/Objects Multiple [place]: Functional Ident/Pics in Multiple [place]: Functional Follows 1-Step Commands: Functional Language Eval: Verbal Language Completes Spontaneous Greeting: Functional Produces Auto, Serial Info: Functional Imitates Simple Words/Phrases: Functional Word Finding: Moderate Requests Basic Needs: Functional Cognitive Patient Orientation The patient was independently oriented to month, day of the week, and year. Objective Cognitive Domain Attention: Moderate Memory: Moderate Problem Solving: Moderate Composite Severity Rating: Moderate Objective Formal/Standardized Tests [facility] Mental Status Examination (UMS) Results The patient demonstrated a result of +12/30 on the UMS correlating to a score of "dementia." Oral Motor/Speech Production The patient does not display dysarthria or apraxia of speech. Imprecise articulation is present, however, appears secondary to fatigue or reduced effort. The patient remains higher than 80% intelligible in known contexts. Impression The patient demonstrated impaired cognitive linguistic skills, most notably in the areas of problem solving and memory. Speech Patient Assess Expression of Ideas/Wants: Frequently (2) Understanding Verbal Content: Sometimes Understands(2) Brief Interview-Mental Status: Yes Repetition of Three Words: Three (3) Temporal Orientation: Year: Correct (3) Temporal Orientation: Month: Accurate within 5 days(2) Temporal Orientation: Day: Correct (1) Recall : Wear to say "Sock": No, could not recall (0) Recall : Color: No, could not recall (0) Recall : Bed: No, could not recall (0) Memory/Recall Ability: That he or she is in a hsp/hsp unit Speech Short Term Goals Short Term Goals Short Term Goals 1. The patient will demonstrated 75% accuracy with memory exercises with mild clinician verbal and visual cueing. Time Frame-STG: One Week. Speech Car Shunter Goals [facility] Goals 1. The patient will improve his cognitive linguistic skills for safe discharge to the least restrictive environment. Time Frame: Two Weeks. Speech-Plan Treatment Plan Speech Therapy Treatment Plan: Continue Plan of Care Treatment Duration: Oct 13, 2021 Frequency: 4 times per week (Four to five times per week.) Estimated Hrs Per Day: .5 hour per day Rehab Potential: Fair Pt/Family Agrees to Plan: Yes Safety Risks/Education Teaching Recipient: Patient Teaching Methods: Discussion Response to Teaching: Reinforcement Needed Education Topics Provided: Results of QIRA, POC Time Speech Therapy Time In: 12:10 Speech Therapy Time Out: 12:40 Total Billed Time: 30 Billed Treatment Time 1, ROWENA WELLS [facility] ST Sep 29, 2021 12:53
--- NOTE | 2021-09-29 13:10 | Progress Note ---
DAINA THOMAS 09/29/21 1310: Progress Note H&P HPI: Luis Armando Fairbanks is a 70yoWM with past medical history significant for CAD, CABG, HTN, HLD, and known alcoholic with recent h/o new AF who presented to the ER following a fall while intoxicated and was found to have a right hip fracture which has been repaired by Dr Johns. He was admitted to the ICU where he stayed for 4 days. Alcohol withdrawal protocol was maintained and pain controlled. He has anemia due to acute blood loss that is being monitored. He has been receiving electrolyte and vitamin supplementation. He is POD#4 and medically stable to work with PT/OT. PMH: CAD CABG HTN HLD GERD Esophageal Varicies Alcohol abuse FH: Unremarkable SH: , Retired, former smoker, every day beer drinker ROS: Negative for SOB, chest pain, N/V, constipation, or diarrhea Positive for weakness and malaise A/P: 1) Right Hip Fracture * POD#4 s/p intramedullary nailing * Pain control * PT/OT 2) Alcohol Abuse * Continue to monitor electrolytes * Watch for signs of withdrawal 3) Anemia * Continue to monitor Hgb * Iron studies pending HAFSA JUDGE DO 09/29/217: Supervisory-Addendum Brief Verification & Attestation Participated in pt care: history, MDM, physical Personally performed: exam, history, MDM, supervision of care Care discussed with: Medical Student Procedures: n/a Results interpretation: Verified all documentation Verification and Attestation of Medical Student E/M Service A medical student performed and documented this service in my presence. I r eviewed and verified all information documented by the medical student and made modifications to such information, when appropriate. I personally performed the physical exam and medical decision making. Hafsa Judge Sep 29, 2021,21:16 DAINA THOMAS Sep 29, 2021 13:10 HAFSA JUDGE DO Sep 29, 2021 21:17
[2021-09-29] MEDS ORDERED: meTOprolol TARTRATE 25 MG (LOPRESSOR) TABLET PO NR (13:15)
[2021-09-29] MEDS ORDERED: DIAZEPAM INJ 10 MG/2 ML (VALIUM) SYR IVP PRN (13:15)
[2021-09-29] MEDS ORDERED: amLODIPine 5 MG (NORVASC) TAB PO NR (13:15)
[2021-09-29] MEDS ORDERED: ANTACID SUSP 30 ML UDC (MYLANTA) PO PRN (13:15)
--- NOTE | 2021-09-29 13:50 | Occupational Therapy Eval ---
OT Evaluation-General/PLF Medical Diagnosis Admission Date Sep 29, 2021 at 11:30 Medical Diagnosis: Right Femur Fracture Onset Date: Sep 24, 2021 Therapy Diagnosis Therapy Diagnosis: reduced adl status Height/Weight Height (Feet): 5 Height (Inches): 11.00 Weight (Pounds): 176 Weight (Ounces): 1.6 Precautions Precautions/Isolations: Fall Prevention, Standard Precautions, Pressure Ulcer Weight Bear Status Weight Bearing Restriction: Weight Bearing/Tolerated Location Restriction: R LE Referral Physician: Dr. Key Referral Reason: Evaluation/Treatment Medical History Pertinent Medical History: Atrial Fib, Alcoholism, CABG, CAD, COPD, GERD, HTN, PA Additional Medical History ETOH use Current History Pt presents to hospital after experiencing fall (while intoxicated) resulting in R hip fracture. He is now s/p R ORIF. Per patient, he lives in a trailer home with his however believes that his has left him while he has been in the hospital. He was indep with adls but "with difficulty." His manages all of the household tasks. He was not using any AD at baseline but states that he only walks very short distances within the home; sedentary lifestyle. He uses oxygen at baseline, 2L at rest and 3L with activity. Reviewed History: Yes Social History Home: Single Level Current Living Status: Spouse Entry Into Home: Stairs With Railing Steps Into Home: 4 ADL-Prior Level of Function SCALE: Activities may be completed with or without assistive devices. 0-Yoqlnmhqoa-qwduhlx completes the activity by him/herself with no assistance from a helper. 5-Set-up or Clean-up Assistance-helper sets up or cleans up; patient completes activity. [place] assists only prior to or following the activity. 4-Supervision or Touching Assistance-helper provides verbal cues and/or touching/steadying and/or contact guard assistance as patient completes activity. Assistance may be provided throughout the activity or intermittently. 3-Partial/Moderate Assistance-helper does LESS THAN HALF the effort. [place] lifts, holds or supports trunk or limbs, but provides less than half the effort. 2-Substantial/Maximal Assistance-helper does MORE THAN HALF the effort. [place] lifts or holds trunk or limbs and provides more than half the effort. 9-Puukjshxg-yglwcm does ALL the effort. Patient does none of the effort to complete the activity. Or, the assistance of 2 or more helpers is required for the patient to complete the activity. If activity was not attempted, code reason: 7-Patient Refused. 9-Not Applicable-not attempted and the patient did not perform the activity before the current illness, exacerbation or injury. 10-Not Attempted due to Environmental Limitations-(lack of equipment, weather restraints, etc.). 88-Not Attempted due to Medical Conditions or Safety Concerns. Self Care: Needed Some Help Functional Cognition: Unknown DME/Equipment: Bath Chair, Tub/Shower OT Current Status Subjective Patient rates R hip pain at 10/10, nurse notified. RN states pt just had a pain pill ~1 hour prior. He also c/o SOA and requests a breathing treatment. Respiratory Therapy arrives to administer Albuterol treatment. Pt frequently c/o SOA and needing another breathing treatment despite just receiving a breathing treatment. Difficulty redirecting and frequent statements that he cannot have another one until 1400. Appearance Pt left sitting in recliner, all needs within reach at therapy departure. Mental Status/Objective Patient Orientation: Person, Place Attachments: Myers Catheter, IV, Oxygen (3L) Current Glasses/Contacts: No Hearing Aids: No Dentures/Partials: Yes Hand Dominance: Right Upper Extremity ROM RUE WNL L shoulder: ~120 degrees AROM L elbow-distally WNL L elbow edema present Upper Extremity Strength RUE: 3/5 L shoulder: 2+/5 L elbow-civil engineering drafter: 3/5 ADL-Treatment Eating (QC): 4 Oral Hygiene (QC): 7 Shower/Bathe Self (QC): 88 Upper Body Dressing (QC): 10 Lower Body Dressing (QC): 1 On/Off Footwear (QC): 1 Toileting Hygiene (QC): 1 Supine>sit: Max A. Pt c/o pain with all movement and often states that he will refuse to do anything until he gets a pain pill. RN reports patient just received a pain pill ~1 hour prior. Pt was difficult to redirect and does not appear to understand why he cannot have another pain pill. While sitting EOB, pt frequently asked for breathing treatments despite just getting one. He stood with max a, flexed posture and limited weight bearing through R foot noted. Decreased SAO2 with all standing activities; drop into mid 60's. Significant time and cues to recover. When donning socks or LB clothing over feet, pt immediately bends forward at waist. He exhibits increased SOA and extreme d ifficulty with reaching toes to initiate task. Again, desat into 70's. Education on compensatory methods and reducing bending if possible. OT introduced pt to mine foreman. Mod cues and assist needed to thread BLE's into brief. Mod a x1 to stand, heavy reliance on BUE support to maintain balance. Assist of 2nd person to pull clothing up to waist. Due to very poor tolerance and poor oxygen saturations, bathing and full body dressing deferred. Several very lengthy rest breaks needed during treatment as Pt is unable to tolerate intensive therapy at this time. Education OT Patient Education: Correct positioning, Energy conservation, Modified ADL techniques, Purpose of tx/functional activities, Reviewed precautions, Rehab process, Safety issues, Transfer techniques, Use of adapted equipment Teaching Recipient: Patient Teaching Methods: Demonstration, Discussion Response to Teaching: Verbalize Understanding, Reinforcement Needed OT Short Term Goals Short Term Goals Time Frame: Oct 14, 2021 Eatin Oral hygiene: 5 Toileting hygiene: 2 Shower/bathe self: 2 Upper body dressin Lower body dressin Putting on/taking off footwear: 2 OT Desktop Support Engineer Goals Desktop Support Engineer Goals Time Frame: Oct 29, 2021 Eating (QC): 6 Oral Hygiene (QC): 6 Toileting Hygiene (QC): 4 Shower/Bathe Self (QC): 4 Upper Body Dressing (QC): 4 Lower Body Dressing (QC): 4 On/Off Footwear (QC): 4 1=Demonstrate adherence to instructed precautions during ADL tasks. 2=Patient will verbalize/demonstrate understanding of assistive devices/modifications for ADL. 3=Patient will improve strength/tolerance for activity to enable patient to perform ADL's. OT Education/Plan Problem List/Assessment Assessment: Decreased Activ Tolerance, Decreased Safety Aware, Decreased UE Strength, Edema, Impaired Bed Mobility, Impaired Cognition, Impaired Coordination, Impaired Funct Balance, Impaired I ADL's, Impaired Self-Care S kills, Restricted Funct UE ROM Discharge Recommendations Plan/Recommendations: Continue POC Treatment Plan/Plan of Care Treatment,Training & Education: Yes Patient would benefit from OT for education, treatment and training to promote independence in ADL's, mobility, safety and/or upper extremity function for ADL's. Plan of Care: ADL Retraining, Caregiver Training, Functional Mobility, Group Exercise/Act as Ind, UE Funct Exercise/Act, W/C Management Training Treatment Duration: Oct 29, 2021 Frequency: Modified Program (IRF) (24/09) Estimated Hrs Per Day: 1.5 hours per day (75-90 min/day ) Agreement: Yes Rehab Potential: Poor Time/GCodes Start Time: 11:40 (1300) Stop Time: 12:10 (1345) Total Time Billed (hr/min): 75 Billed Treatment Time 1st visit EVH (10 min) FA (20 min) OT eval: [id number] Co-treat: [id number] 2nd visit ADL x2 (30 min) FA (15 min) Co-Treat: 5775-6712 Kiley Pena OT Sep 29, 2021 13:50
--- NOTE | 2021-09-29 14:23 | Physical Therapy Daily Note ---
PT Daily Note-Current Subjective Upon arrival, RN was present with pt. PT and OT co-treat. Pt agrees to PT. Mental Status Patient Orientation: Person Attachments: Oxygen, Myers Catheter, IV (not attached ) Transfers SCALE: Activities may be completed with or without assistive devices. 1-Hzzybxwpgl-rofjwgh completes the activity by him/herself with no assistance from a helper. 5-Set-up or Clean-up Assistance-helper sets up or cleans up; patient completes activity. [place] assists only prior to or following the activity. 4-Supervision or Touching Assistance-helper provides verbal cues and/or touching/steadying and/or contact guard assistance as patient completes activity. Assistance may be provided throughout the activity or intermittently. 3-Partial/Moderate Assistance-helper does LESS THAN HALF the effort. [place] lifts, holds or supports trunk or limbs, but provides less than half the effort. 2-Substantial/Maximal Assistance-helper does MORE THAN HALF the effort. [place] lifts or holds trunk or limbs and provides more than half the effort. 1-Elbvijcih-ghbhen does ALL the effort. Patient does none of the effort to complete the activity. Or, the assistance of 2 or more helpers is required for the patient to complete the activity. If activity was not attempted, code reason: 7-Patient Refused. 9-Not Applicable-not attempted and the patient did not perform the activity before the current illness, exacerbation or injury. 10-Not Attempted due to Environmental Limitations-(lack of equipment, weather restraints, etc.). 88-Not Attempted due to Medical Conditions or Safety Concerns. Sit to Stand (QC): 3 Weight Bearing Right Lower Extremity: Right Non Weight Bearing Left Lower Extremity: Left Non Weight Bearing Gait Training Does the Patient Walk?: No and Walking Goal IS indicated Gait Assistive Device: FWW Treatments Pt was able to stand form recliner with Mod A. OT assisted pt with changing brief, while PT focused on standing balance. Pts SAO2 was 99% at the begging of tx session, once pt stood up, SAO2 dropped to 65%, with a lengthy rest, pts SAO2 went back to the 90s. Pt stood again for RN to change dressing and pt O2 dropped again, and took a lengthy amount of time to get back to normal. PT was unable to Exs with pt due to SAO2 dropping with activity and pt becoming very fatigued. Once tx session was concluded, pt was in recliner with call light and tray in reach and all needs met. Assessment Current Status: Poor Progress Pt would benefit from continued PT to improve on activity tolerance, strength, and balance. PT Electrical Engineering Technician Goals Detention Goals PT Detention Goals Time Frame: Oct 22, 2021 Roll Left & Right (QC): 4 Sit to Lying (QC): 4 Lying-Sitting on Side/Bed(QC): 4 Sit to Stand (QC): 4 Chair/Eew-ur-Rcoap Xfer(QC): 4 Toilet Transfer (QC): 4 Car Transfer (QC): 4 Does the Patient Walk: Yes Walk 10 feet (QC): 4 Walk 50ft with 2 Turns (QC): 4 Walk 150 ft (QC): 3 Walking 10ft on Uneven Surface: 4 1 Step (curb) (QC): 3 4 Steps (QC): 3 12 Steps (QC): 3 Picking up an Object (QC): 4 Does the Pt use WC or Scooter?: No Wheel 50 feet with 2 turns (QC: 9 Wheel 150 feet: 9 PT Plan Problem List Problem List: Activity Tolerance, Functional Strength, Balance Treatment/Plan Treatment Plan: Continue Plan of Care Treatment Plan: Bed Mobility, Education, Functional Activity Yoanna, Functional Strength, Group Therapy, Gait, Safety, Therapeutic Exercise, Transfers Treatment Duration: Nov 05, 2021 Frequency: At least 5 of 7 days/Wk (IRF) Estimated Hrs Per Day: 1.5 hours per day Patient and/or Family Agrees t: Yes Safety Risks/Education Patient Education: Safety Issues Teaching Recipient: Patient Teaching Methods: Discussion Response to Teaching: Verbalize Understanding Time/GCodes Time In: 1300 Time Out: 1345 Total Billed Treatment Time: 45 Total Billed Treatment FA (3) 45 SITA MYERS DRY DIP WORKER Sep 29, 2021 14:23
[2021-09-29] MEDS: RT-ALBUTEROL/IPRATROPIUM 3 ML (DUONEB) VIAL INH SCH ×3 (14:36→22:08)
[2021-09-29 14:57] VITALS: BP 189/97
[2021-09-29] MEDS ORDERED: RT-ALBUTEROL SULF 2.5 MG/3 ML PRE-MIX VIAL INH PRN (16:00)
[2021-09-29] MEDS: LORazepam 1 MG (ATIVAN) TAB PO PRN ×2 (18:40→20:03)
[2021-09-29 19:55] VITALS: BP 119/119
[2021-09-29] MEDS: SENNA W/DOCUSATE (SENOKOT S) TABLET PO SCH (20:04)
[2021-09-29] MEDS: APIXABAN 5 MG (ELIQUIS) TABLET PO SCH (20:04)
[2021-09-29] MEDS: DOCUSATE SODIUM 100 MG (COLACE) CAP PO SCH (20:04)
[2021-09-29] MEDS: meTOprolol TARTRATE 25 MG (LOPRESSOR) TABLET PO SCH (20:05)
[2021-09-29] MEDS: polyethylene glycoL POWDER 17 GM (MIRALAX) PACK PO SCH (20:17)
[2021-09-29] MEDS ORDERED: DOCUSATE SODIUM 100 MG (COLACE) CAP PO SCH (21:00)
[2021-09-29] MEDS ORDERED: WATER (STERILE) FOR INJ 10 ML BTL INJ SCH (21:00)
[2021-09-29] MEDS ORDERED: ZIPRASIDONE 20 MG INJ (GEODON) VIAL IM PRN (21:00)
[2021-09-30] MEDS: RT-ALBUTEROL/IPRATROPIUM 3 ML (DUONEB) VIAL INH SCH ×6 (01:48→23:12)
--- NOTE | 2021-09-30 05:55 | PM&R Progress Note ---
Subjective HPI/CC On Admission Date Seen by Provider: Sep 30, 2021 Time Seen by Provider: 10:30 Subjective/Events-last exam 09/30/2021: Patient settling in well Pain is improved Hypoxia noted Hgb 7.8 and dyspnea noted and cardiac dysfunction noted so will transfuse O2 maintained BM need to move Nebs ordered Review of Systems General: Fatigue, Malaise Pulmonary: Dyspnea, Cough Musculoskeletal: leg pain Neurological: Confusion Objective Exam Vital Signs Vital Signs Date Time Temp Pulse Resp B/P (MAP) Pulse Ox O2 Delivery O2 Flow Rate FiO2 09/30/21 19:50 36.4 88 20 121/74 (90) 93 Nasal Cannula 3.00 09/29/21 14:57 32 Capillary Refill : General Appearance: No Apparent Distress, WD/WN, Anxious, Chronically ill HEENT: PERRL/EOMI, Normal ENT Inspection, Pharynx Normal Neck: Full Range of Motion, Normal Inspection, Non Tender, Supple, Carotid Bruit Respiratory: Chest Non Tender, Lungs Clear, No Accessory Muscle Use, No Respiratory Distress, Decreased Breath Sounds Cardiovascular: No Edema, No Gallop, No JVD, No Murmur, Normal Peripheral Pulses, Irregularly Irregular, Tachycardia Gastrointestinal: Normal Bowel Sounds, No Organomegaly, No Pulsatile Mass, Non Tender, Soft Back: Normal Inspection, No CVA Tenderness, No Vertebral Tenderness Extremity: Normal Capillary Refill, Normal Inspection, Normal Range of Motion, Non Tender, No Calf Tenderness, No Pedal Edema Neurologic/Psychiatric: Alert, No Motor/Sensory Deficits, Normal Mood/Affect, Abnormal Gait, Disoriented, Motor Weakness (all extremities) Skin: Normal Color, Warm/Dry Lymphatic: No Adenopathy Results/Procedures Lab Laboratory Tests 09/30/21 05:55 Patient resulted labs reviewed. FIM Transfers Therapy Code Descriptions/Definitions Functional [place] Measure: 0=Not Assessed/NA 4=Minimal Assistance 1=Total Assistance 5=Supervision or Setup 2=Maximal Assistance 6=Modified [place] 3=Moderate Assistance 7=Complete IndependenceSCALE: Activities may be completed with or without assistive devices. 8-Zowsfzwjra-zhxqyzp completes the activity by him/herself with no assistance from a helper. 5-Set-up or Clean-up Assistance-helper sets up or cleans up; patient completes activity. [place] assists only prior to or following the activity. 4-Supervision or Touching Assistance-helper provides verbal cues and/or touching/steadying and/or contact guard assistance as patient completes activity. Assistance may be provided throughout the activity or intermittently. 3-Partial/Moderate Assistance-helper does LESS THAN HALF the effort. [place] lifts, holds or supports trunk or limbs, but provides less than half the effort. 2-Substantial/Maximal Assistance-helper does MORE THAN HALF the effort. [place] lifts or holds trunk or limbs and provides more than half the effort. 6-Rkembiyad-gzjwao does ALL the effort. Patient does none of the effort to complete the activity. Or, the assistance of 2 or more helpers is required for the patient to complete the activity. If activity was not attempted, code reason: 7-Patient Refused. 9-Not Applicable-not attempted and the patient did not perform the activity before the current illness, exacerbation or injury. 10-Not Attempted due to Environmental Limitations-(lack of equipment, weather restraints, etc.). 88-Not Attempted due to Medical Conditions or Safety Concerns. Roll Left to Right (QC): 2 Sit to Lying (QC): 2 Sit to Stand (QC): 3 Chair/Lug-nf-Eowvj Xfer(QC): 2 Car Transfer (QC): 2 Gait Training Does the Patient Walk?: No and Walking Goal IS indicated Walk 10 feet (QC): 88 Walk 50 ft with 2 Turns(QC): 88 Walk 150 ft (QC): 88 Walking 10ft/uneven surface-QC: 88 Gait Assistive Device: FWW Wheelchair Training Does the Pt Use a Wheelchair?: No Wheel 50 ft with 2 turns (QC): 9 Wheel 150 ft (QC): 9 Stair Training 1 Step (curb) (QC): 88 4 Steps (QC): 88 12 Steps (QC): 88 Balance Picking up an Object (QC): 88 ADL-Treatment Eating (QC): 4 Oral Hygiene (QC): 7 Shower/Bathe Self (QC): 88 Upper Body Dressing (QC): 10 Lower Body Dressing (QC): 1 On/Off Footwear (QC): 1 Toileting Hygiene (QC): 1 Assessment/Plan Assessment and Plan Assess & Plan/Chief Complaint Assessment: Right hip fracture Alcoholism s/p active withdrawal Smoker AF CAD CABG hx Post op anemia from acute blood loss requiring transfusion on 1 unit of blood Plan: Monitor closely Louis PATINO soon O2 PT OT with rest breaks 09/30/2021: Transfuse Monitor pain Monitor O2 (1) Closed right hip fracture Status: Acute (2) CAD (coronary artery disease) Status: Chronic (3) HLD (hyperlipidemia) Status: Chronic (4) Acute and chronic respiratory failure with hypoxia Status: Acute (5) Alcohol intoxication in active alcoholic Status: Acute (6) HTN (hypertension) Status: Chronic (7) Anemia due to acute blood loss Status: Acute (8) Alcoholism Status: Acute ALEXANDRA JUDGE DO Sep 30, 2021 05:55
--- NOTE | 2021-09-30 05:56 | Individualized Plan of Care ---
Individualized Plan of Care Rehab Nursing IPOC Order Admission Date Sep 29, 2021 at 11:30 Current Orders Orders Admission Order(Inpt,Obs,Sdc) (09/29/21 10:32) Vital Signs: Per Unit Policy ( 08,16,00 (09/29/21 10:32) Pedro Duron ,21 (09/29/21 10:32) Sequential Compression Device (09/29/21 10:32) Mud Logger-Inpt Rehab Con (09/29/21 10:32) Rehab Nursing Orders-Ipoc (09/29/21 10:32) Physical Therapy Rehab Orders (09/29/21 10:32) Occupational Therapy Rehab Ord (09/29/21 10:32) Speech Therapy Rehab Orders (09/29/21 10:32) Cbc With Automated Diff (09/30/21 06:00) Comprehensive Metabolic Panel (09/30/21 06:00) Precautions (Aru) (09/29/21 10:32) Weekly Weight WEEK (09/29/21 10:32) Rehab-Intensity Of Therapy (09/29/21 10:32) Initiate Admission Nursing Pro .admission (09/29/21 10:32) Calcium Carbonate Chew Tablet (Antacid C (09/29/21 10:45) Diphenhydramine Tablet (Benadryl Tablet) (09/29/21 10:45) Docusate Sodium Capsule (Colace Capsule) (09/29/21 21:00) Docusate Sodium Capsule (Colace Capsule) (09/29/21 10:45) Bisacodyl Suppository (Dulcolax Supposit (09/29/21 10:45) Lactulose Oral Solution (Enulose Oral So (09/29/21 10:45) Na Phos/Na Biphos Enema (Fleet Enema Hong (09/29/21 10:45) Guaifenesin/Codeine Syrup (Robitussin Ac (09/29/21 10:45) Loperamide Tablet (Imodium Tablet) (09/29/21 10:45) Melatonin Tablet (Melatonin Tablet) (09/29/21 10:45) Polyethylene Glycol Powder Pkt (Miralax (09/29/21 21:00) Ondansetron Oral Dissolve Tab (Zofran (09/29/21 10:45) Senna S Tablet (Senokot S Tablet) (09/29/21 21:00) Acetaminophen Tablet/Caplet (Tylenol T (09/29/21 10:45) Code/Resuscitation (09/29/21 10:32) Initiate Admission Nursing Pro .admission (09/29/21 10:32) Lorazepam Tablet (Ativan Tablet) (09/29/21 10:45) Admission Arrival Bed Request (09/29/21 12:00) Code/Resuscitation (09/29/21 13:11) Catheter(Urinary) Insert & Ass 03,15 (09/29/21 13:11) Ice: Apply To Affected Area (09/29/21 13:11) Incentive Spirometry (Nursing) Q2H (09/29/21 13:11) Oxygen-Administer 07,19 (09/29/21 13:11) Pedro Hose 09,21 (09/29/21 13:11) Weight Bearing As Tolerated (09/29/21 13:11) Weight Bearing Restrictions (09/29/21 13:11) General/Regular (09/29/21 Lunch) Albuterol/Ipra Inhalation Soln (Duoneb I (09/29/21 14:00) Apixaban Tablet (Eliquis Tablet) (09/29/21 21:00) Lorazepam Tablet (Ativan Tablet) (09/29/21 13:15) Clopidogrel Tablet (Plavix Tablet) (09/30/21 09:00) Docusate Sodium Capsule (Colace Capsule) (09/29/21 21:00) Diazepam Injection (Valium Injection) (09/29/21 13:15) Bisacodyl Suppository (Dulcolax Supposit (09/29/21 13:15) Lactulose Oral Solution (Enulose Oral So (09/29/21 13:15) Folic Acid Tablet (Folic Acid Tablet) (09/30/21 09:00) Antacid Suspension (Mylanta Suspension (09/29/21 13:15) Morphine Injection (Morphine Injection (09/29/21 13:15) Oxycodone Immediate Rel Tablet (Oxyir Ta (09/29/21 13:15) Consult Cardiology (09/29/21 13:11) Consult Orthopedic Surgery (09/29/21 13:11) Svn Small Volume Nebulizer (09/29/21 13:11) Iv Convert To Heplock (Order) (09/29/21 13:11) Telemetry (09/29/21 13:11) Telemetry Nursing Assessment ( (09/29/21 13:11) Amlodipine Tablet (Norvasc Tablet) (09/29/21 13:15) Amlodipine Tablet (Norvasc Tablet) (09/30/21 09:00) Metoprolol Tartrate (Ir) Tab (Lopressor (09/29/21 13:15) Metoprolol Tartrate (Ir) Tab (Lopressor (09/29/21 21:00) Patient Visit (09/29/21 ) Pt Eval Moderate Complexity (09/29/21 ) Functional Activities, Ea 15 (09/29/21 ) Patient Visit (09/29/21 ) Speech Sound Lang Comp (09/29/21 ) Treat. Speech/Lang/Voice (09/29/21 ) Mat Initiate Protocol (09/29/21 14:57) Albuterol Pre-Mix Nebs (Rt) (Proventil (09/29/21 16:00) Patient Visit (09/29/21 ) Functional Activities, Ea 15 (09/29/21 ) Telesitter Service Order & Ass Q4HR (09/29/21 17:50) Ziprasidone Injection (Geodon Injection) (09/29/21 21:00) Water (Sterile) For Injection (Sterile W (09/29/21 21:00) Bnp Cleo (09/30/21 05:55) Procalcitonin (Pct) (09/30/21 05:55) Chest 1 View, Ap/Pa Only (09/30/21 07:00) Iron Tibc %Sat & Ferritin (09/30/21 05:56) Vitamin B 12 (09/30/21 05:56) Dressing Order (Intervention) DAILY (09/30/21 08:41) Catheter(Urinary) Discontinue (09/30/21 10:24) Guaifenesin Tablet (Mucinex Tablet) (09/30/21 10:30) Soap Suds Enema Until Clear (09/30/21 10:24) Vital Signs: Special (Order) (09/30/21 10:28) Consent-Obtain Consent For (09/30/21 10:28) Monitor S/S Transfusion Reacti (09/30/21 10:28) Ns Iv 500 Ml (Sodium Chloride 0.9%) (09/30/21 10:30) Furosemide Injection (Lasix Injection) (09/30/21 10:30) Furosemide Injection (Lasix Injection) (09/30/21 10:30) Patient Visit (09/30/21 ) Treat. Speech/Lang/Voice (09/30/21 ) Red Cells Leukocytes Reduced (09/28/21 06:47) Patient Visit (09/30/21 ) Functional Activities, Ea 15 (09/30/21 ) Lipid Panel (09/30/21 18:19) Nursing Communication (Order) (09/30/21 18:35) Rehab Nursing Orders: Ongoing Assess. of Cognitive Status, Ongoing Assess. of Function Status, Bladder Management, Bladder Scan, Bladder Training, Bowel Management, Bowel Training, Disease Management & Educaiton, DVT Prophylaxis, Fall Prevention, Fluid/Electrolyte/Nutrition Mgmt, Infection Prevention, Medication Management & Education, Management of Risks & Complications, Management of Skin Intergrity, Nutrition Management, Pain Management, Patient/Family Support, Safety Management, Weight Bearing Precaution, Wound Management Intensity of Therapy to be met Patient to be seen: Min.3h per day/5 of 7d PT IPOC Problem List: Activity Tolerance, Functional Strength, Balance Treatment Plan: Continue Plan of Care Bed Mobility, Education, Functional Activity Yoanna, Functional Strength, Group Therapy, Gait, Safety, Therapeutic Exercise, Transfers Treatment Duration: Nov 05, 2021 Frequency: At least 5 of 7 days/Wk (IRF) Estimated Hrs Per Day: 1.5 hours per day OT IPOC Problems: Decreased Activ Tolerance, Decreased Safety Aware, Decreased UE Strength, Edema, Impaired Bed Mobility, Impaired Cognition, Impaired Coordination, Impaired Funct Balance, Impaired I ADL's, Impaired Self-Care Skills, Restricted Funct UE ROM OT Treatment, Training and Edu: Yes Plan of Care: ADL Retraining, Caregiver Training, Functional Mobility, Group Exercise/Act as Ind, UE Funct Exercise/Act, W/C Management Training Treatment Duration: Oct 29, 2021 Frequency: Modified Program (IRF) (24/09) Estimated Hrs Per Day: 1.5 hours per day (75-90 min/day ) ST IPOC Speech Therapy Treatment Plan: Continue Plan of Care Treatment Duration: Oct 13, 2021 Frequency: 4 times per week (Four to five times per week.) Estimated Hrs Per Day: .5 hour per day Mud Logger/Case Mgmt Mud Logger/Case Managemen: Discharge Planning Dietitian/Microgrinder Operator Dietitian/Microgrinder Operator to monitor nutritional status and make changes and/or recommendations as needed and work with speech pathology on dietary upgrades as the occur. Physician IPOC Medical Issues being managed closely and that require the 24 hour availability of a physician: Recent right hip fracture with known alcoholism s/p withdrawal requiring ICU and h/o AF and CAD and acute blood anemia requiring transfusion will require close monitoring for decompensation Medical Issues: Bowel/Bladder Function, DVT Prophylaxis, Falls Precautions, Fluid/Electrolyte/Nutrition Balance, Infection Protection, Pain Management, Weight Bearing Precautions, Wound Care Brief Synthesis of Preadmission Screen, Post-Admission Evaluation, and Therapy Evaluations: PT OT will focus on regaining function in order to return to independent living with the use of assistive devices and help in prevention of falls Medical Prognosis: Fair Anticipated Length of Stay: 10 days ALEXANDRA JUDGE DO Sep 30, 2021 05:56
[2021-09-30 06:17] LABS: BASOPHILS % (AUTO) 1 % (0-10); EOSINOPHILS # (AUTO) 0.3 10^3/uL (0.0-0.3); EOSINOPHILS % (AUTO) 4 % (0-10); HEMATOCRIT 23 % (40-54); HEMOGLOBIN 7.8 g/dL (13.3-17.7); LYMPHOCYTES # (AUTO) 1.3 10^3/uL (1.0-4.0); LYMPHOCYTES % (AUTO) 17 % (12-44); MEAN CORPUSCULAR HEMOGLOBIN 35 pg (25-34); MEAN CORPUSCULAR HGB CONC 34 g/dL (32-36); MEAN CORPUSCULAR VOLUME 103 fL (80-99); MEAN PLATELET VOLUME 9.4 fL (9.0-12.2); MONOCYTES # (AUTO) 1.8 10^3/uL (0.0-1.0); MONOCYTES % (AUTO) 22 % (0-12); NEUTROPHILS # (AUTO) 4.3 10^3/uL (1.8-7.8); NEUTROPHILS % (AUTO) 55 % (42-75); PLATELET COUNT 185 10^3/uL (130-400); WHITE BLOOD COUNT 7.9 10^3/uL (4.3-11.0)
[2021-09-30 06:30] LABS: ALBUMIN 2.9 GM/DL (3.2-4.5); POTASSIUM 3.7 MMOL/L (3.6-5.0)
[2021-09-30 06:31] LABS: CALCIUM 8.3 MG/DL (8.5-10.1)
[2021-09-30 06:32] LABS: TOTAL PROTEIN 5.3 GM/DL (6.4-8.2)
[2021-09-30 06:34] LABS: BILIRUBIN,TOTAL 1.3 MG/DL (0.1-1.0)
[2021-09-30 06:36] LABS: CREATININE SERUM 0.59 MG/DL (0.60-1.30)
[2021-09-30] MEDS: FOLIC ACID 1 MG TAB PO SCH (07:36)
[2021-09-30] MEDS: amLODIPine 5 MG (NORVASC) TAB PO SCH (07:36)
[2021-09-30] MEDS: ACETAMINOPHEN 325 MG TABLET PO PRN ×2 (07:36→15:24)
[2021-09-30] MEDS: DOCUSATE SODIUM 100 MG (COLACE) CAP PO SCH ×2 (07:36→19:59)
[2021-09-30] MEDS: SENNA W/DOCUSATE (SENOKOT S) TABLET PO SCH ×2 (07:36→21:40)
[2021-09-30] MEDS: meTOprolol TARTRATE 25 MG (LOPRESSOR) TABLET PO SCH ×2 (07:36→20:00)
[2021-09-30] MEDS: polyethylene glycoL POWDER 17 GM (MIRALAX) PACK PO SCH ×2 (07:37→21:40)
[2021-09-30] MEDS: APIXABAN 5 MG (ELIQUIS) TABLET PO SCH ×2 (07:37→19:59)
[2021-09-30 07:44] VITALS: BP 138/88
--- NOTE | 2021-09-30 08:16 | Diagnostic Imaging Report ---
EXAMINATION: Chest 1 view HISTORY: Cough and congestion COMPARISON: 09/27/2021 FINDINGS: Median sternotomy wires are aligned. There are coronary artery bypass graft markers. Lungs are emphysematous. There are scattered areas of atelectasis or scarring. No edema or pneumonia. No pleural effusion or pneumothorax. Heart size normal. IMPRESSION: 1. Emphysematous lungs with scattered areas of atelectasis or scarring. No pneumonia. Dictated by: Dictated on workstation # [id number]
--- NOTE | 2021-09-30 08:41 | Progress Note - Ortho ---
Progress Note Subjective Date of Exam 09/30/21 Chief Complaint POD #5 IM Nailing of R IT Femur Fx HPI/Events since last exam improving, pain has been less, has been working on improving mobilization Review of Systems - Allergies: Coded Allergies: No Known Drug Allergies (Unverified , 12/12/17) Home Meds Active Scripts Multivitamin/Iron/Folic Acid (Tab-A-Andrei Multivit with Iron) 18 Mg Iron-400 Mcg Tablet, 1 EA PO DAILY@0700, #30 TAB Prov:ANAIS HDZ MD 09/29/21 Melatonin (Melatonin) 3 Mg Tablet, 3 MG PO HS PRN for SLEEP, #30 TAB Prov:ANAIS HDZ MD 09/29/21 Reported Medications Gabapentin (Gabapentin) 400 Mg Capsule, 400 MG PO TID, CAP LAST FILLED 02-23-2021 #270/90 DAY SUPPLY 09/27/21 Metoprolol Tartrate (Metoprolol Tartrate) 25 Mg Tablet, 25 MG PO BID, TAB 09/27/21 Diltiazem HCl (Diltiazem 24Hr ER) 120 Mg Cap.er.24h, 120 MG PO DAILY, CAP 09/27/21 Clopidogrel Bisulfate (Clopidogrel) 75 Mg Tablet, 75 MG PO DAILY, TAB 09/27/21 Apixaban (Eliquis) 5 Mg Tablet, 5 MG PO BID, TAB 09/27/21 Albuterol Sulfate (Albuterol Sulfate) 2.5 Mg/0.5 Ml Vial.neb, 2.5 MG INH Q6H PRN for SHORTNESS OF BREATH, EACH 09/07/21 Albuterol Sulfate (PROAIR HFA) 1 Puff Puff, 2 PUFF IH Q4H PRN for SHORTNESS OF BREATH, EA 09/07/21 Discontinued Reported Medications Isosorbide Mononitrate (Isosorbide Mononitrate ER) 30 Mg Tab.er.24h, 30 MG PO DAILY, TAB 09/27/21 Discontinued Scripts Cephalexin (Cephalexin) 500 Mg Tablet, 500 MG PO BID, #10 TAB Prov:ANTONI SHERMAN MD 09/08/21 Metoprolol Tartrate (Metoprolol Tartrate) 25 Mg Tablet, 25 MG PO BID, #60 TAB Prov:ANTONI SHERMAN MD 09/08/21 Isosorbide Mononitrate (Isosorbide Mononitrate ER) 30 Mg Tab.er.24h, 30 MG PO DAILY, #30 TAB Prov:ANTONI SHERMAN MD 09/08/21 Clopidogrel Bisulfate (Clopidogrel) 75 Mg Tablet, 75 MG PO DAILY, #30 TAB Prov:ANTONI SHERMAN MD 09/08/21 Diltiazem HCl (Diltiazem 24Hr ER) 120 Mg Cap.er.24h, 120 MG PO DAILY, #30 CAP Prov:ANTONI SHERMAN MD 09/08/21 Apixaban (Eliquis) 5 Mg Tablet, 5 MG PO BID, #60 TAB Prov:ANTONI SHERMAN MD 09/08/21 Objective Exam R Hip: Dressing with significant serosanguinous drainage, no erythema, no warmth, thigh with swelling, +DF of ankle, no s/s of DVT Vital Signs Vital Signs Date Time Temp Pulse Resp B/P (MAP) Pulse Ox O2 Delivery O2 Flow Rate FiO2 09/30/21 07:44 35.9 82 22 138/88 (105) 97 Nasal Cannula 3.00 09/30/21 06:46 95 Nasal Cannula 3.00 09/30/21 06:39 82 09/30/21 01:48 95 Nasal Cannula 3.00 09/30/21 00:58 75 09/29/21 22:08 98 Nasal Cannula 3.00 09/29/21 21:00 Nasal Cannula 3.00 09/29/21 19:55 37.1 84 22 119/119 (119) 98 Nasal Cannula 3.00 09/29/21 19:07 80 09/29/21 18:52 94 Nasal Cannula 3.00 09/29/21 15:11 98 Nasal Cannula 3.00 09/29/21 14:57 36.3 113 92 32 09/29/21 14:37 92 Nasal Cannula 3.00 09/29/21 12:00 36.3 113 24 189/97 (127) 99 Nasal Cannula 2.00 I & O 09/30/21 07:00 Intake Total 1300 ml Output Total 1900 ml Balance -600 ml Lab Results Laboratory Tests 09/30/21 05:17: 09/30/21 05:55: White Blood Count 7.9, Red Blood Count 2.25L, Hemoglobin 7.8L, Hematocrit 23L, Mean Corpuscular Volume 103H, Mean Corpuscular Hemoglobin 35H, Mean Corpuscular Hemoglobin Concent 34, Red Cell Distribution Width 15.7H, Platelet Count 185, Mean Platelet Volume 9.4, Immature Granulocyte % (Auto) 1, Neutrophils (%) (Auto) 55, Lymphocytes (%) (Auto) 17, Monocytes (%) (Auto) 22H, Eosinophils (%) (Auto) 4, Basophils (%) (Auto) 1, Neutrophils # (Auto) 4.3, Lymphocytes # (Auto) 1.3, Monocytes # (Auto) 1.8H, Eosinophils # (Auto) 0.3, Basophils # (Auto) 0.0, Immature Granulocyte # (Auto) 0.1, Sodium Level 130L, Potassium Level 3.7, Chloride Level 96L, Carbon Dioxide Level 24, Anion Gap 10, Blood Urea Nitrogen 6L, Creatinine 0.59L, Estimat Glomerular Filtration Rate 104, BUN/Creatinine Ratio 10, Glucose Level 94, Calcium Level 8.3L, Corrected Calcium 9.2, Total Bilirubin 1.3H, Aspartate Amino Transf (AST/SGOT) 21, Alanine Aminotransferase (ALT/SGPT) 15, Alkaline Phosphatase 50, B-Type Natriuretic Peptide 397.8H, Total Protein 5.3L, Albumin 2.9L, Procalcitonin 0.04 Assessment and Plan Assessment Right Intertrochanteric Femur Fracture s/p Intramedullary Nailing Problem List Right Intertrochanteric Femur Fracture s/p Intramedullary Nailing Plan Daily dressing change until drainage decreases Continue PT DVT Prophylaxis Final Diagonsis Right Intertrochanteric Femur Fracture s/p Intramedullary Nailing Level of the visit: Level 3 (postop global) DARIUS MARROQUIN MD Sep 30, 2021 08:41
[2021-09-30] MEDS: LORazepam 1 MG (ATIVAN) TAB PO PRN ×2 (09:04→23:43)
--- NOTE | 2021-09-30 09:07 | Speech Therapy Daily Note ---
Speech Daily Progress Note Subjective Date Seen by Provider: Sep 30, 2021 Time Seen by Provider: 09:00 The patient was seated upright in bed, awake and alert upon entrance to his room by the clinician. The patient greeted the clinician appropriately and was agreeable to participation in the cognitive linguistic treatment session. Objective The patient requires frequent verbal redirection throughout the treatment session to remain on task. - Orientation: The patient was oriented to date, month, year, place, and city. The patient was one day ahead of the prior day of the week. The patient independently scanned the room and located the in-room white board for aid. - The patient's prior cognitive difficulties and concerns were addressed and discussed. Per patient, he does not have current cognitive deficits which were not present at baseline. The patient stated, "It all comes down to the drinking. You can't have a good memory with that." The patient does state he is responsible for organizing his daily medication and does keep a pill box. Regardless of the pill box being present, the patient frequently does not take his daily medication. The patient is unable to state why he does not take his medication if the medication is present and organized. The patient discusses his home life and states he lives in [place] with his . The patient stated his is unable to aid in his care because "she is older, in her 70's and has a bad back." Additionally, the patient stated his home has three stairs with a railing and the doorways are wide enough for a w alker and wheelchair. Assessment Assessment Current Status: Poor Progress Treatment Plan Continue Plan of Care Speech Short Term Goals Short Term Goals Short Term Goals 1. The patient will demonstrated 75% accuracy with memory exercises with mild clinician verbal and visual cueing. Time Frame-STG: One Week. Speech Mcc Goals Mcc Goals 1. The patient will improve his cognitive linguistic skills for safe discharge to the least restrictive environment. Time Frame: Two Weeks. Speech-Plan Treatment Plan Speech Therapy Treatment Plan: Continue Plan of Care Treatment Duration: Oct 13, 2021 Frequency: 4 times per week (Four to five times per week.) Estimated Hrs Per Day: .5 hour per day Rehab Potential: Poor Safety Risks/Education Teaching Recipient: Patient Teaching Methods: Discussion Response to Teaching: Reinforcement Needed Education Topics Provided: Safety in the Home Time Speech Therapy Time In: 09:00 Speech Therapy Time Out: 09:30 Total Billed Time: 30 Billed Treatment Time 1, MAVIS Nunez Sep 30, 2021 09:07
[2021-09-30] MEDS: morphine INJ 4 MG/ML 1 ML (VIAL/SYRINGE) IV PRN (09:53)
[2021-09-30] MEDS: CLOPIDOGREL 75 MG (PLAVIX) TABLET PO SCH (09:59)
[2021-09-30] MEDS ORDERED: NS IV 500 ML 500 ML IV SCH (10:30)
[2021-09-30] MEDS ORDERED: FUROSEMIDE 40 MG/4 ML INJ (LASIX) IVP NR ×2 (10:30)
--- NOTE | 2021-09-30 10:58 | Physical Therapy Daily Note ---
PT Daily Note-Current Subjective Patient in bed pre tx, agrees to PT, has 6-7/10 pain in right leg, nurse is aware and he has already had pain meds. Will be co-treating with OT due to poor patient mobility, severe pain with activity, coordinate UE and LE with activity, safety and reduce risk of falls. Appearance Patient in bed post tx, will continue for a bit with OT Mental Status Patient Orientation: Person, Place, Situation Attachments: Oxygen Transfers SCALE: Activities may be completed with or without assistive devices. 3-Zpefaiekch-vvvobbi completes the activity by him/herself with no assistance from a helper. 5-Set-up or Clean-up Assistance-helper sets up or cleans up; patient completes activity. [place] assists only prior to or following the activity. 4-Supervision or Touching Assistance-helper provides verbal cues and/or touching/steadying and/or contact guard assistance as patient completes activity. Assistance may be provided throughout the activity or intermittently. 3-Partial/Moderate Assistance-helper does LESS THAN HALF the effort. [place] lifts, holds or supports trunk or limbs, but provides less than half the effort. 2-Substantial/Maximal Assistance-helper does MORE THAN HALF the effort. [place] lifts or holds trunk or limbs and provides more than half the effort. 7-Udmqtubkl-vhprgm does ALL the effort. Patient does none of the effort to comp lete the activity. Or, the assistance of 2 or more helpers is required for the patient to complete the activity. If activity was not attempted, code reason: 7-Patient Refused. 9-Not Applicable-not attempted and the patient did not perform the activity before the current illness, exacerbation or injury. 10-Not Attempted due to Environmental Limitations-(lack of equipment, weather restraints, etc.). 88-Not Attempted due to Medical Conditions or Safety Concerns. Roll Left & Right (QC): 3 Sit to Lying (QC): 3 Lying to Sitting/Side of Bed(Q: 3 Sit to Stand (QC): 3 Chair/Vgf-qi-Jmpmh Xfer(QC): 3 Patient sits to the side of the bed with min assist, partially dresses, stands with min assist, finishes dressing, transfers to WC min assist. Patient needs cues for safety and positioning, can be impulsive. Weight Bearing Right Lower Extremity: Right Non Weight Bearing Left Lower Extremity: Left Non Weight Bearing Gait Training Distance: 5'x2 Gait Persons Needed: 1 Gait Assistive Device: Parallel Bars WC follow, very slow, antalgic, but he was able to bear weight on right leg and advance it forward (min assist) Wheelchair Training Does the Pt Use a Wheelchair?: Yes Wheel 50 ft with 2 turns (QC): 4 Type of Wheelchair: Manual 120'x2 Treatments PT performed bed mobility and transfers, ambulation, WC mobility, standing and positioning during dressing, OT performed dressing, UE positioning and safety during activity Assessment Current Status: Fair Progress improved functional mobility but patient needs significant rest breaks due to fatigue and SOB, his O2 drops into the 80's with activity PT German Teacher Goals German Teacher Goals PT [facility] Goals Time Frame: Oct 22, 2021 Roll Left & Right (QC): 4 Sit to Lying (QC): 4 Lying-Sitting on Side/Bed(QC): 4 Sit to Stand (QC): 4 Chair/Mbd-xv-Hhhgp Xfer(QC): 4 Toilet Transfer (QC): 4 Car Transfer (QC): 4 Does the Patient Walk: Yes Walk 10 feet (QC): 4 Walk 50ft with 2 Turns (QC): 4 Walk 150 ft (QC): 3 Walking 10ft on Uneven Surface: 4 1 Step (curb) (QC): 3 4 Steps (QC): 3 12 Steps (QC): 3 Picking up an Object (QC): 4 Does the Pt use WC or Scooter?: No Wheel 50 feet with 2 turns (QC: 9 Wheel 150 feet: 9 PT Plan Problem List Problem List: Activity Tolerance, Functional Strength, Safety, Balance, Gait, Transfer, Bed Mobility, ROM Treatment/Plan Treatment Plan: Continue Plan of Care Treatment Plan: Bed Mobility, Education, Functional Activity Yoanna, Functional Strength, Group Therapy, Gait, Safety, Therapeutic Exercise, Transfers Treatment Duration: Nov 05, 2021 Frequency: At least 5 of 7 days/Wk (IRF) Estimated Hrs Per Day: 1.5 hours per day Patient and/or Family Agrees t: Yes Safety Risks/Education Patient Education: Gait Training, Transfer Techniques, Reviewed Precautions, Correct Positioning, Safety Issues Teaching Recipient: Patient Teaching Methods: Demonstration, Discussion Response to Teaching: Reinforcement Needed Time/GCodes Time In: 1000 Time Out: 1100 Total Billed Treatment Time: 60 Total Billed Treatment 1 visit FA 60' co-treated with OT for 60' KEN TOLENTINO PT Sep 30, 2021 10:58
--- NOTE | 2021-09-30 11:05 | Occupational Ther Daily Note ---
OT Current Status-Daily Note Subjective Pt receiving breathing treatment at therapy arrival. He states pain in R hip as 6/10. RN verbalizes that pain meds were given prior to therapy arrival. Co-treat with PT for part of treatment ([id number]) secondary to poor endurance, high fall risk, high oxygen needs, poor mobility, and need of 2 skilled clinic ians to progress indep and safety with adls and functional mobility. Appearance Pt returned to supine in bed, all needs with reach at therapy departure. Mental Status/Objective Patient Orientation: Person, Place Attachments: Garcia Catheter, IV, Oxygen, Telemetry ADL-Treatment Therapy Code Descriptions/Definitions Functional [place] Measure: 0=Not Assessed/NA 4=Minimal Assistance 1=Total Assistance 5=Supervision or Setup 2=Maximal Assistance 6=Modified [place] 3=Moderate Assistance 7=Complete IndependenceSCALE: Activities may be completed with or without assistive devices. 7-Ztsqqighyz-cqphczs completes the activity by him/herself with no assistance from a helper. 5-Set-up or Clean-up Assistance-helper sets up or cleans up; patient completes activity. [place] assists only prior to or following the activity. 4-Supervision or Touching Assistance-helper provides verbal cues and/or touching/steadying and/or contact guard assistance as patient completes activity. Assistance may be provided throughout the activity or intermittently. 3-Partial/Moderate Assistance-helper does LESS THAN HALF the effort. [place] lifts, holds or supports trunk or limbs, but provides less than half the effort. 2-Substantial/Maximal Assistance-helper does MORE THAN HALF the effort. [place] lifts or holds trunk or limbs and provides more than half the effort. 1-Slsqsplmq-xcbvpn does ALL the effort. Patient does none of the effort to complete the activity. Or, the assistance of 2 or more helpers is required for the patient to complete the activity. If activity was not attempted, code reason: 7-Patient Refused. 9-Not Applicable-not attempted and the patient did not perform the activity before the current illness, exacerbation or injury. 10-Not Attempted due to Environmental Limitations-(lack of equipment, weather restraints, etc.). 88-Not Attempted due to Medical Conditions or Safety Concerns. Upper Body Dressing (QC): 4 Lower Body Dressing (QC): 3 On/Off Footwear: 1 Toileting Hygiene (QC): 1 (garcia catheter) Toilet Transfer (QC): 3 (per clinical judgment) Supine>sit: Mod A, extra time to transition RLE off side of bed. Partial sponge bath and dressing tasks completed at EOB. Pt washed upper body only, fatigues quickly with task. Cues for PLB. C/o dizziness, cues needed to cease activity until dizziness subsides. When given shorts, pt impulsively bends forwards at waist. He refuses use of piping manager despite encouragement and increases SOA when bending. Min a needed to pull completely over foot. Min a to stand and maintain balance as he pulled shorts over hips. Other Treatment Improved sit<>stands this date to min-min a. Extra time for extension of hips and trunk. Poor safety when turning to sit on surface needing cues to ensure chair is directly behind him before sitting. He propelled w/c from room to gym (see PT note for distance) with min a. After propulsion, oxygen drops into mid 70's. Difficult getting accurate HR as it varies from mid 30's to 100 bpm. HR ap pears to slow following activity. RN notified. Pt participated in sit<>stands and gait while in parallel bars. Min a needed for balance during task. Poor standing tolerance secondary to SOA and R hip pain. Several lengthy rest breaks needed for recovery of vitals. Education OT Patient Education: Correct positioning, Energy conservation, Modified ADL techniques, Progress toward Goal/Update tx plan, Purpose of tx/functional activities, Reviewed precautions, Rehab process, Safety issues, Transfer techniques, Use of adapted equipment, W/C management Teaching Recipient: Patient Teaching Methods: Demonstration Response to Teaching: Verbalize Understanding, Return Demonstration, Reinforcement Needed OT Short Term Goals Short Term Goals Time Frame: Oct 14, 2021 Eatin Oral hygiene: 5 Toileting hygiene: 2 Shower/bathe self: 2 Upper body dressin Lower body dressin Putting on/taking off footwear: 2 OT Stone Setter Goals Usp Goals Time Frame: Oct 29, 2021 Eating (QC): 6 Oral Hygiene (QC): 6 Toileting Hygiene (QC): 4 Shower/Bathe Self (QC): 4 Upper Body Dressing (QC): 4 Lower Body Dressing (QC): 4 On/Off Footwear (QC): 4 1=Demonstrate adherence to instructed precautions during ADL tasks. 2=Patient will verbalize/demonstrate understanding of assistive devices/modifications for ADL. 3=Patient will improve strength/tolerance for activity to enable patient to perform ADL's. OT Education/Plan Problem List/Assessment Assessment: Decreased Activ Tolerance, Decreased Safety Aware, Decreased UE Strength, Edema, Impaired Bed Mobility, Impaired Cognition, Impaired Funct Balance, Impaired I ADL's, Impaired Self-Care Skills, Restricted Funct UE ROM Discharge Recommendations Plan/Recommendations: Continue POC Therapy Discharge Recommendati: Post Acute OT Treatment Plan/Plan of Care Treatment,Training & Education: Yes Patient would benefit from OT for education, treatment and training to promote independence in ADL's, mobility, safety and/or upper extremity function for ADL's. Plan of Care: ADL Retraining, Caregiver Training, Functional Mobility, Group Exercise/Act as Ind, UE Funct Exercise/Act, W/C Management Training Treatment Duration: Oct 29, 2021 Frequency: Modified Program (IRF) (24/09) Estimated Hrs Per Day: 1.5 hours per day (75-90 min/day ) Agreement: Yes Rehab Potential: Poor Time/GCodes Start Time: 10:00 Stop Time: 11:15 Total Time Billed (hr/min): 75 Billed Treatment Time 1 visit ADL x2 (35 min) FA x3 (40 min) Kiley Pena OT Sep 30, 2021 11:05
[2021-09-30 12:05] VITALS: BP 140/64
[2021-09-30 12:20] VITALS: BP 137/66
[2021-09-30] MEDS: ONDANSETRON 4 MG (ZOFRAN) ORAL DISSOLVE TAB PO PRN (12:47)
[2021-09-30] MEDS: guaiFENesin (MUCINEX) 600 MG TAB PO SCH ×2 (12:47→19:59)
[2021-09-30 14:10] VITALS: BP 122/79
[2021-09-30] MEDS: LACTULOSE SYRUP 10GM/15ML (ENULOSE) 30ML UDC PO PRN ×2 (15:24→20:00)
--- NOTE | 2021-09-30 15:30 | Physical Therapy Daily Note ---
PT Daily Note-Current Subjective Patient in bed pre tx, agrees to PT, has unrated pain in right leg, patient states he needs to use the commode. Appearance Patient in bed post tx with nurse call, phone, tray, all needs met, bed alarm on. Mental Status Patient Orientation: Person, Confused Attachments: Oxygen, Myers Catheter Transfers SCALE: Activities may be completed with or without assistive devices. 8-Eyspzjqihh-bgikbkf completes the activity by him/herself with no assistance from a helper. 5-Set-up or Clean-up Assistance-helper sets up or cleans up; patient completes activity. [place] assists only prior to or following the activity. 4-Supervision or Touching Assistance-helper provides verbal cues and/or touching/steadying and/or contact guard assistance as patient completes activity. Assistance may be provided throughout the activity or intermittently. 3-Partial/Moderate Assistance-helper does LESS THAN HALF the effort. [place] lifts, holds or supports trunk or limbs, but provides less than half the effort. 2-Substantial/Maximal Assistance-helper does MORE THAN HALF the effort. [place] lifts or holds trunk or limbs and provides more than half the effort. 7-Ehmxicuuz-iywgqp does ALL the effort. Patient does none of the effort to c omplete the activity. Or, the assistance of 2 or more helpers is required for the patient to complete the activity. If activity was not attempted, code reason: 7-Patient Refused. 9-Not Applicable-not attempted and the patient did not perform the activity before the current illness, exacerbation or injury. 10-Not Attempted due to Environmental Limitations-(lack of equipment, weather restraints, etc.). 88-Not Attempted due to Medical Conditions or Safety Concerns. Roll Left & Right (QC): 3 Sit to Lying (QC): 3 Lying to Sitting/Side of Bed(Q: 3 Sit to Stand (QC): 3 Chair/Xmu-zy-Tcyfw Xfer(QC): 4 Patient supine to sit min assist, sit to stand min assist, transfer to commode with CGA, patient needs assist getting his pants down. Patient is confused and concerned about urinating and doesn't seem to understand that he has a urinary catheter and doesn't need to pee in the commode. Patient tries for a while to have a BM but is unsuccessful. Patient stands again with min assist, therapist pulls patients pants up, transfer to bed with CGA, takes a few steps toward the head of the bed and then sits. Mod assist for sit to supine. Weight Bearing Right Lower Extremity: Right Non Weight Bearing Left Lower Extremity: Left Non Weight Bearing Treatments bed mobility and transfers, toileting Assessment Current Status: Fair Progress improved functional mobility from yesterday but continued severe pain PT Aircraft Detail Draftsperson Goals Jail Goals PT Aircraft Detail Draftsperson Goals Time Frame: Oct 22, 2021 Roll Left & Right (QC): 4 Sit to Lying (QC): 4 Lying-Sitting on Side/Bed(QC): 4 Sit to Stand (QC): 4 Chair/Xxv-dz-Lrchm Xfer(QC): 4 Toilet Transfer (QC): 4 Car Transfer (QC): 4 Does the Patient Walk: Yes Walk 10 feet (QC): 4 Walk 50ft with 2 Turns (QC): 4 Walk 150 ft (QC): 3 Walking 10ft on Uneven Surface: 4 1 Step (curb) (QC): 3 4 Steps (QC): 3 12 Steps (QC): 3 Picking up an Object (QC): 4 Does the Pt use WC or Scooter?: No Wheel 50 feet with 2 turns (QC: 9 Wheel 150 feet: 9 PT Plan Problem List Problem List: Activity Tolerance, Functional Strength, Safety, Balance, Gait, Transfer, Bed Mobility, ROM Treatment/Plan Treatment Plan: Continue Plan of Care Treatment Plan: Bed Mobility, Education, Functional Activity Yoanna, Functional Strength, Group Therapy, Gait, Safety, Therapeutic Exercise, Transfers Treatment Duration: Nov 05, 2021 Frequency: At least 5 of 7 days/Wk (IRF) Estimated Hrs Per Day: 1.5 hours per day Patient and/or Family Agrees t: Yes Safety Risks/Education Patient Education: Gait Training, Transfer Techniques, Correct Positioning, Safety Issues Teaching Recipient: Patient Teaching Methods: Demonstration, Discussion Response to Teaching: Reinforcement Needed Time/GCodes Time In: 1505 Time Out: 1520 Total Billed Treatment Time: 15 Total Billed Treatment 1 visit FA KEN PATINO PT Sep 30, 2021 15:30
--- NOTE | 2021-09-30 18:28 | Cardiology Progress Note ---
Progress Note-Cardiology Events since last exam Date Seen by Provider: Sep 30, 2021 Time Seen by Provider: 18:28 Events since last exam We are following him due to his history of coronary artery disease. He was transferred to the inpatient rehabilitation unit earlier today. He is still quite short of breath although he does have significant dyspnea at home as well. He denies chest discomfort, palpitations, syncope, or ankle edema. Certain portions of this document may have been dictated utilizing voice recognition technology. Inherent to this technology, typographical and grammatical errors may exist. As much as I am diligent to identify and correct these mistakes, some errors may remain in the document. Vitals Last set of Vitals Signs Vital Signs 09/29/21 09/30/21 09/30/21 14:57 14:10 14:30 Temp 37.1 Pulse 73 Resp 20 B/P (MAP) 122/79 Pulse Ox 95 O2 Delivery Nasal Cannula O2 Flow Rate 3.00 FiO2 32 Labs Labs Laboratory Tests 09/30/21 05:55 Exam Vital Signs Vital Signs Date Time Temp Pulse Resp B/P (MAP) Pulse Ox O2 Delivery O2 Flow Rate FiO2 09/30/21 14:30 95 Nasal Cannula 3.00 09/30/21 14:10 37.1 73 20 122/79 09/29/21 14:57 32 Physical Exam General: Alert. Mild respiratory distress on nasal cannula oxygen. Eye: No xanthelasma. HENT: Normocephalic. Neck: Jugular venous pressure does not appear elevated. Respiratory: Lungs have diffusely decreased breath sounds. Respirations are non- labored. Breath sounds are equal. Symmetrical chest wall expansion. Cardiovascular: Normal rate. Regular rhythm. Distant S1/S2. No murmur. No gallop. No edema. Gastrointestinal: Soft. Normal bowel sounds. Skin: Warm. Dry. Neurologic: Alert and oriented to person and time but not place. He cannot remember where he lives. Cranial nerves 3-11 grossly intact. Psychiatric: Cooperative. Appropriate mood & affect but with some degree of memory loss. Labs Laboratory Tests Test 09/30/21 05:17 09/30/21 05:55 Range/Units White Blood Count 7.9 4.3-11.0 10^3/uL Red Blood Count 2.25 L 4.30-5.52 10^6/uL Hemoglobin 7.8 L 13.3-17.7 g/dL Hematocrit 23 L 40-54 % Mean Corpuscular Volume 103 H 80-99 fL Mean Corpuscular Hemoglobin 35 H 25-34 pg Mean Corpuscular Hemoglobin Concent 34 32-36 g/dL Red Cell Distribution Width 15.7 H 10.0-14.5 % Platelet Count 185 130-400 10^3/uL Mean Platelet Volume 9.4 9.0-12.2 fL Immature Granulocyte % (Auto) 1 % Neutrophils (%) (Auto) 55 42-75 % Lymphocytes (%) (Auto) 17 12-44 % Monocytes (%) (Auto) 22 H 0-12 % Eosinophils (%) (Auto) 4 0-10 % Basophils (%) (Auto) 1 0-10 % Neutrophils # (Auto) 4.3 1.8-7.8 10^3/uL Lymphocytes # (Auto) 1.3 1.0-4.0 10^3/uL Monocytes # (Auto) 1.8 H 0.0-1.0 10^3/uL Eosinophils # (Auto) 0.3 0.0-0.3 10^3/uL Basophils # (Auto) 0.0 0.0-0.1 10^3/uL Immature Granulocyte # (Auto) 0.1 0.0-0.1 10^3/uL Sodium Level 130 L 135-145 MMOL/L Potassium Level 3.7 3.6-5.0 MMOL/L Chloride Level 96 L 98-107 MMOL/L Carbon Dioxide Level 24 21-32 MMOL/L Anion Gap 10 5-14 MMOL/L Blood Urea Nitrogen 6 L 7-18 MG/DL Creatinine 0.59 L 0.60-1.30 MG/DL Estimat Glomerular Filtration Rate 104 BUN/Creatinine Ratio 10 Glucose Level 94 70-105 MG/DL Calcium Level 8.3 L 8.5-10.1 MG/DL Corrected Calcium 9.2 8.5-10.1 MG/DL Total Bilirubin 1.3 H 0.1-1.0 MG/DL Aspartate Amino Transf (AST/SGOT) 21 5-34 U/L Alanine Aminotransferase (ALT/SGPT) 15 0-55 U/L Alkaline Phosphatase 50 40-136 U/L B-Type Natriuretic Peptide 397.8 H <100.0 PG/ML Total Protein 5.3 L 6.4-8.2 GM/DL Albumin 2.9 L 3.2-4.5 GM/DL Procalcitonin 0.04 <0.10 NG/ML Diagnosis/Problems Diagnosis/Problems (1) Coronary artery disease without angina pectoris Assessment & Plan: He is not having any angina. He reportedly had a coronary stent around August 2021. He is on clopidogrel and beta-subhash. He is not on aspirin since he takes apixaban for atrial fibrillation. Unclear why he is not on statin medication. I have added a lipid panel to previous labs. (2) Paroxysmal atrial fibrillation Assessment & Plan: He has a reported history of paroxysmal atrial fibrillation. His electrocardiogram from admission shows sinus rhythm. He is on beta-subhash for rate control and apixaban for stroke prophylaxis. There is no indication for telemetry monitoring at this point in time. (3) Primary hypertension Assessment & Plan: Blood pressure has been reasonably controlled with the current medication. (4) Mixed hyperlipidemia Assessment & Plan: He has a history of hyperlipidemia but is not currently on a statin medication. I have added a lipid panel to previous labs. (5) Acute on chronic respiratory failure with hypoxemia Assessment & Plan: Most likely due to his severe underlying chronic obstructive pulmonary disease. He should continue with oxygen. STORMY GARZA JR, MD Sep 30, 2021 18:28
[2021-09-30 18:48] LABS: TRIGLYCERIDES 66 MG/DL (<150); VLDL CHOLESTEROL 13 MG/DL (5-40)
[2021-09-30 18:53] LABS: CHOLESTEROL 128 MG/DL (< 200)
[2021-09-30 19:31] LABS: HDL CHOLESTEROL 52 MG/DL (40-60)
[2021-09-30 19:50] VITALS: BP 121/74
[2021-10-01] MEDS: RT-ALBUTEROL/IPRATROPIUM 3 ML (DUONEB) VIAL INH SCH ×6 (02:46→21:29)
--- NOTE | 2021-10-01 06:23 | PM&R Progress Note ---
Subjective HPI/CC On Admission Date Seen by Provider: Oct 01, 2021 Time Seen by Provider: 12:30 Subjective/Events-last exam 10/01/2021: Pt requiring pain medication changes Overall having no significant other issues Morphine extended release and immediate release and discontinue Oxycodone and Morphine IV Soap suds enema will be given since he hasn't had a BM for 6 days 09/30/2021: Patient settling in well Pain is improved Hypoxia noted Hgb 7.8 and dyspnea noted and cardiac dysfunction noted so will transfuse O2 maintained BM need to move Nebs ordered Review of Systems General: Fatigue, Malaise Gastrointestinal: Constipation Objective Exam Vital Signs Vital Signs Date Time Temp Pulse Resp B/P (MAP) Pulse Ox O2 Delivery O2 Flow Rate FiO2 10/01/21 20:02 37.2 83 20 178/79 (112) 99 Nasal Cannula 3.00 09/29/21 14:57 32 Capillary Refill : General Appearance: No Apparent Distress, WD/WN, Anxious, Chronically ill HEENT: PERRL/EOMI, Normal ENT Inspection, Pharynx Normal Neck: Full Range of Motion, Normal Inspection, Non Tender, Supple, Carotid Bruit Respiratory: Chest Non Tender, Lungs Clear, No Accessory Muscle Use, No Respiratory Distress, Decreased Breath Sounds Cardiovascular: No Edema, No Gallop, No JVD, No Murmur, Normal Peripheral Pulses, Irregularly Irregular, Tachycardia Gastrointestinal: Normal Bowel Sounds, No Organomegaly, No Pulsatile Mass, Non Tender, Soft Back: Normal Inspection, No CVA Tenderness, No Vertebral Tenderness Extremity: Normal Capillary Refill, Normal Inspection, Normal Range of Motion, Non Tender, No Calf Tenderness, No Pedal Edema Neurologic/Psychiatric: Alert, No Motor/Sensory Deficits, Normal Mood/Affect, Abnormal Gait, Disoriented, Motor Weakness (all extremities) Skin: Normal Color, Warm/Dry Lymphatic: No Adenopathy Results/Procedures Lab Laboratory Tests 10/01/21 12:50 Patient resulted labs reviewed. FIM Transfers Therapy Code Descriptions/Definitions Functional [place] Measure: 0=Not Assessed/NA 4=Minimal Assistance 1=Total Assistance 5=Supervision or Setup 2=Maximal Assistance 6=Modified [place] 3=Moderate Assistance 7=Complete IndependenceSCALE: Activities may be completed with or without assistive devices. 1-Whqvcbsqoi-wwsbqaq completes the activity by him/herself with no assistance from a helper. 5-Set-up or Clean-up Assistance-helper sets up or cleans up; patient completes activity. [place] assists only prior to or following the activity. 4-Supervision or Touching Assistance-helper provides verbal cues and/or touching/steadying and/or contact guard assistance as patient completes activity. Assistance may be provided throughout the activity or intermittently. 3-Partial/Moderate Assistance-helper does LESS THAN HALF the effort. [place] lifts, holds or supports trunk or limbs, but provides less than half the effort. 2-Substantial/Maximal Assistance-helper does MORE THAN HALF the effort. [place] lifts or holds trunk or limbs and provides more than half the effort. 0-Uaqsoreql-pjcnjj does ALL the effort. Patient does none of the effort to complete the activity. Or, the assistance of 2 or more helpers is required for the patient to complete the activity. If activity was not attempted, code reason: 7-Patient Refused. 9-Not Applicable-not attempted and the patient did not perform the activity before the current illness, exacerbation or injury. 10-Not Attempted due to Environmental Limitations-(lack of equipment, weather restraints, etc.). 88-Not Attempted due to Medical Conditions or Safety Concerns. Roll Left to Right (QC): 3 Sit to Lying (QC): 3 Sit to Stand (QC): 3 Chair/Gxc-fm-Tjgel Xfer(QC): 4 Car Transfer (QC): 2 Gait Training Does the Patient Walk?: No and Walking Goal IS indicated Distance: 5'x2 Walk 10 feet (QC): 88 Walk 50 ft with 2 Turns(QC): 88 Walk 150 ft (QC): 88 Walking 10ft/uneven surface-QC: 88 Gait Persons Needed: 1 Gait Assistive Device: Parallel Bars Wheelchair Training Does the Pt Use a Wheelchair?: Yes Wheel 50 ft with 2 turns (QC): 4 Wheel 150 ft (QC): 9 Type of Wheelchair: Manual Stair Training 1 Step (curb) (QC): 88 4 Steps (QC): 88 12 Steps (QC): 88 Balance Picking up an Object (QC): 88 ADL-Treatment Eating (QC): 4 Oral Hygiene (QC): 7 Shower/Bathe Self (QC): 88 Upper Body Dressing (QC): 4 Lower Body Dressing (QC): 3 On/Off Footwear (QC): 1 Toileting Hygiene (QC): 1 (garcia catheter) Toilet Transfer (QC): 3 (per clinical judgment) Assessment/Plan Assessment and Plan Assess & Plan/Chief Complaint Assessment: Right hip fracture Alcoholism s/p active withdrawal Smoker AF CAD CABG hx Post op anemia from acute blood loss requiring transfusion on 1 unit of blood 09/30/21 Constipation Plan: Monitor closely Garcia DC soon O2 PT OT with rest breaks 09/30/2021: Transfuse Monitor pain Monitor O2 10/01/2021: Enema Pain med transition to PO (1) Coronary artery disease without angina pectoris Assessment & Plan: He is not having any angina. He reportedly had a coronary stent around August 2021. He is on clopidogrel and beta-subhash. He is not on aspirin since he takes apixaban for atrial fibrillation. Unclear why he is not on statin medication. I have added a lipid panel to previous labs. (2) Paroxysmal atrial fibrillation Assessment & Plan: He has a reported history of paroxysmal atrial fibrillation. His electrocardiogram from admission shows sinus rhythm. He is on beta-subhash for rate control and apixaban for stroke prophylaxis. There is no indication for telemetry monitoring at this point in time. (3) Primary hypertension Assessment & Plan: Blood pressure has been reasonably controlled with the current medication. (4) Mixed hyperlipidemia Assessment & Plan: He has a history of hyperlipidemia but is not currently on a statin medication. I have added a lipid panel to previous labs. (5) Acute on chronic respiratory failure with hypoxemia Assessment & Plan: Most likely due to his severe underlying chronic obstructive pulmonary disease. He should continue with oxygen. ALEXANDRA JUDGE DO Oct 01, 2021 06:23
[2021-10-01 08:00] VITALS: BP 134/78
[2021-10-01] MEDS: SENNA W/DOCUSATE (SENOKOT S) TABLET PO SCH ×2 (08:19→20:49)
[2021-10-01] MEDS: APIXABAN 5 MG (ELIQUIS) TABLET PO SCH ×2 (08:19→20:50)
[2021-10-01] MEDS: meTOprolol TARTRATE 25 MG (LOPRESSOR) TABLET PO SCH ×2 (08:19→20:49)
[2021-10-01] MEDS: guaiFENesin (MUCINEX) 600 MG TAB PO SCH ×2 (08:19→20:50)
[2021-10-01] MEDS: DOCUSATE SODIUM 100 MG (COLACE) CAP PO SCH ×2 (08:19→20:49)
[2021-10-01] MEDS: FOLIC ACID 1 MG TAB PO SCH (08:20)
[2021-10-01] MEDS: amLODIPine 5 MG (NORVASC) TAB PO SCH (08:20)
[2021-10-01] MEDS: CLOPIDOGREL 75 MG (PLAVIX) TABLET PO SCH (08:20)
[2021-10-01] MEDS: polyethylene glycoL POWDER 17 GM (MIRALAX) PACK PO SCH ×2 (08:24→19:51)
--- NOTE | 2021-10-01 08:58 | Physical Therapy Daily Note ---
PT Daily Note-Current Subjective Patient in bed pre tx, agrees to PT with encouragement, has 9/10 pain in right leg, nurse gives him pain meds. Appearance Patient in recliner post tx, will continue for a bit with OT Mental Status Patient Orientation: Person, Place, Situation Attachments: Oxygen Transfers SCALE: Activities may be completed with or without assistive devices. 6-Qermapybop-nakusur completes the activity by him/herself with no assistance from a helper. 5-Set-up or Clean-up Assistance-helper sets up or cleans up; patient completes activity. [place] assists only prior to or following the activity. 4-Supervision or Touching Assistance-helper provides verbal cues and/or touching/steadying and/or contact guard assistance as patient completes activity. Assistance may be provided throughout the activity or intermittently. 3-Partial/Moderate Assistance-helper does LESS THAN HALF the effort. [place] lifts, holds or supports trunk or limbs, but provides less than half the effort. 2-Substantial/Maximal Assistance-helper does MORE THAN HALF the effort. [place] lifts or holds trunk or limbs and provides more than half the effort. 5-Thsfiumrw-jdlhmh does ALL the effort. Patient does none of the effort to complete the activity. Or, the assistance of 2 or more helpers is required for the patient to complete the activity. If activity was not attempted, code reason: 7-Patient Refused. 9-Not Applicable-not attempted and the patient did not perform the activity before the current illness, exacerbation or injury. 10-Not Attempted due to Environmental Limitations-(lack of equipment, weather restraints, etc.). 88-Not Attempted due to Medical Conditions or Safety Concerns. Roll Left & Right (QC): 4 Lying to Sitting/Side of Bed(Q: 4 Sit to Stand (QC): 3 Chair/Gwd-qg-Wrenu Xfer(QC): 4 dressing from the wheelchair level and in standing Weight Bearing Right Lower Extremity: Right Non Weight Bearing Left Lower Extremity: Left Non Weight Bearing Gait Training Distance: 20'x2 Walk 10 feet (QC): 4 Gait Persons Needed: 1 Gait Assistive Device: FWW WC follow Wheelchair Training Does the Pt Use a Wheelchair?: Yes Wheel 50 ft with 2 turns (QC): 4 Type of Wheelchair: Manual 120'x2, very slow Treatments PT performed bed mobility and transfers, ambulation, WC mobility, standing and positioning during dressing, OT performed dressing, UE positioning and safety during dressing. Assessment Current Status: Fair Progress improved ambulation, patient complaints of SOB and needs frequent rest breaks, his O2 was at 98%-100% during tx and HR was upper 90's. PT Manager Quality Goals Alf Goals PT Manager Quality Goals Time Frame: Oct 22, 2021 Roll Left & Right (QC): 4 Sit to Lying (QC): 4 Lying-Sitting on Side/Bed(QC): 4 Sit to Stand (QC): 4 Chair/Zww-qf-Psfka Xfer(QC): 4 Toilet Transfer (QC): 4 Car Transfer (QC): 4 Does the Patient Walk: Yes Walk 10 feet (QC): 4 Walk 50ft with 2 Turns (QC): 4 Walk 150 ft (QC): 3 Walking 10ft on Uneven Surface: 4 1 Step (curb) (QC): 3 4 Steps (QC): 3 12 Steps (QC): 3 Picking up an Object (QC): 4 Does the Pt use WC or Scooter?: No Wheel 50 feet with 2 turns (QC: 9 Wheel 150 feet: 9 PT Plan Problem List Problem List: Activity Tolerance, Functional Strength, Safety, Balance, Gait, Transfer, Bed Mobility, ROM Treatment/Plan Treatment Plan: Continue Plan of Care Treatment Plan: Bed Mobility, Education, Functional Activity Yoanna, Functional Strength, Group Therapy, Gait, Safety, Therapeutic Exercise, Transfers Treatment Duration: Nov 05, 2021 Frequency: At least 5 of 7 days/Wk (IRF) Estimated Hrs Per Day: 1.5 hours per day Patient and/or Family Agrees t: Yes Safety Risks/Education Patient Education: Gait Training, Transfer Techniques, Correct Positioning, Safety Issues Teaching Recipient: Patient Teaching Methods: Demonstration, Discussion Response to Teaching: Reinforcement Needed Time/GCodes Time In: 0800 Time Out: 0900 Total Billed Treatment Time: 60 Total Billed Treatment 1 visit FA 60' co-treated from [id number] KEN TOLENTINO PT Oct 01, 2021 08:58
--- NOTE | 2021-10-01 09:00 | Occupational Ther Daily Note ---
OT Current Status-Daily Note Subjective Co-treat with PT for part of treatment ([id number]) secondary to poor endurance, high fall risk, poor safety, mobility, and activity tolerance. Pt reports pain in R hip as 11/20 this date. RN notified. Appearance Pt left sitting in recliner, all needs within reach at OT departure. Mental Status/Objective Patient Orientation: Person, Place Attachments: Oxygen (4L) ADL-Treatment Therapy Code Descriptions/Definitions Functional [place] Measure: 0=Not Assessed/NA 4=Minimal Assistance 1=Total Assistance 5=Supervision or Setup 2=Maximal Assistance 6=Modified [place] 3=Moderate Assistance 7=Complete IndependenceSCALE: Activities may be completed with or without assistive devices. 5-Kyaiitrprb-dpwctch completes the activity by him/herself with no assistance from a helper. 5-Set-up or Clean-up Assistance-helper sets up or cleans up; patient completes activity. [place] assists only prior to or following the activity. 4-Supervision or Touching Assistance-helper provides verbal cues and/or touching/steadying and/or contact guard assistance as patient completes activity. Assistance may be provided throughout the activity or intermittently. 3-Partial/Moderate Assistance-helper does LESS THAN HALF the effort. [place] lifts, holds or supports trunk or limbs, but provides less than half the effort. 2-Substantial/Maximal Assistance-helper does MORE THAN HALF the effort. [place] lifts or holds trunk or limbs and provides more than half the effort. 3-Aswqjnbyf-fadele does ALL the effort. Patient does none of the effort to complete the activity. Or, the assistance of 2 or more helpers is required for the patient to complete the activity. If activity was not attempted, code reason: 7-Patient Refused. 9-Not Applicable-not attempted and the patient did not perform the activity before the current illness, exacerbation or injury. 10-Not Attempted due to Environmental Limitations-(lack of equipment, weather restraints, etc.). 88-Not Attempted due to Medical Conditions or Safety Concerns. Upper Body Dressing (QC): 4 Lower Body Dressing (QC): 2 On/Off Footwear: 1 Pt presents sitting in w/c with physical therapy present. Partial sponge bath and dressing tasks completed at w/c level. Pt washed upper body only, fatigues quickly with task. C/o SOA. Oxygen 100%, HR in 90's. Pt more agreeable to utilize finished hardware erector when threading LE's into pants this date. Very impulsive with task, thus getting foot caught in pocket or incorrect pant leg. Cues for slowing speed and for improved finished hardware erector use. Mod-max a still required to thread morrow feet. He stood with min-mod a. Min a to pull pants over R hip secondary to bulky bandage. Pt also was speedy during UB dressing as he threaded RUE into neck/collar. Able to correct post cues. Other Treatment Due to pain, pt needing extra time and assist to stand this date. He often cries out in pain and will ask for breathing treatments. O2 spot checked throughout treatment as Pt does exhibit labored breathing. Oxygen remains >98% and HR remains in the 90's. Poor safety when turning to sit on surfaces, needing cues to ensure chair is directly behind him before sitting. He propelled w/c from room to gym (see PT note for distance) with SBA. He ambulated ~20 feet x2 with walker and min a. Slow but steady gait. Pt reports that he does not wear oxygen at night (at home). Education provided on importance of wearing oxygen even when sleeping. Education OT Patient Education: Correct positioning, Disease process, Energy conservation, Modified ADL techniques, Progress toward Goal/Update tx plan, Purpose of tx/functional activities, Reviewed precautions, Safety issues, Transfer techniques, Use of adapted equipment, W/C management Teaching Recipient: Patient Teaching Methods: Demonstration, Discussion Response to Teaching: Verbalize Understanding, Return Demonstration, Reinforcement Needed OT Short Term Goals Short Term Goals Time Frame: Oct 14, 2021 Eatin Oral hygiene: 5 Toileting hygiene: 2 Shower/bathe self: 2 Upper body dressin Lower body dressin Putting on/taking off footwear: 2 OT Mcc Goals Stove Fitter Goals Time Frame: Oct 29, 2021 Eating (QC): 6 Oral Hygiene (QC): 6 Toileting Hygiene (QC): 4 Shower/Bathe Self (QC): 4 Upper Body Dressing (QC): 4 Lower Body Dressing (QC): 4 On/Off Footwear (QC): 4 1=Demonstrate adherence to instructed precautions during ADL tasks. 2=Patient will verbalize/demonstrate understanding of assistive devices/modifications for ADL. 3=Patient will improve strength/tolerance for activity to enable patient to perform ADL's. OT Education/Plan Problem List/Assessment Assessment: Decreased Activ Tolerance, Decreased Safety Aware, Decreased UE Strength, Edema, Impaired Cognition, Impaired Funct Balance, Impaired I ADL's, Impaired Self-Care Skills Discharge Recommendations Plan/Recommendations: Continue POC Treatment Plan/Plan of Care Treatment,Training & Education: Yes Patient would benefit from OT for education, treatment and training to promote independence in ADL's, mobility, safety and/or upper extremity function for ADL's. Plan of Care: ADL Retraining, Caregiver Training, Functional Mobility, Group Exercise/Act as Ind, UE Funct Exercise/Act, W/C Management Training Treatment Duration: Oct 29, 2021 Frequency: Modified Program (IRF) (24/09) Estimated Hrs Per Day: 1.5 hours per day (75-90 min/day ) Agreement: Yes Rehab Potential: Poor Time/GCodes Start Time: 08:10 Stop Time: 09:05 Total Time Billed (hr/min): 55 Billed Treatment Time 1 visit ADL x2 (30 min) FA x2 (25 min) Kiley Pena OT Oct 01, 2021 09:00
[2021-10-01] MEDS: morphine INJ 4 MG/ML 1 ML (VIAL/SYRINGE) IV PRN (11:35)
--- NOTE | 2021-10-01 12:05 | Speech Therapy Daily Note ---
Speech Daily Progress Note Subjective Date Seen by Provider: Oct 01, 2021 Time Seen by Provider: 09:30 The patient was seated upright in his recliner, awake and alert upon entrance to his room by the clinician. The patient greeted the clinician appropriately and was agreeable to participation in the cognitive linguistic treatment session. Objective The patient was oriented to year, day of the week, place, and city. The patient was unable to state the date and reported the month was "somewhere around September or October." The patient was redirected to the in-room white board for visual cueing of daily orientation information. The patient and clinician discussed safety options in the home and external memory strategies. The patient stated he has a cellphone and "usually carries it" with him. The patient denied a life alert system and stated he is not interested, he "can call 911 anytime." The patient and clinician discussed the importance of keeping his cellphone on him in case of an emergency. The patient stated, "I can probably do that." Additionally, details regarding the life alert system was provided. The patient and clinician discussed the patient's ability to recall upcoming appointments and important reminders. The patient reported he "use to" carry a small book but doesn't any more. He said, "my can do that for me." The clinician encouraged use of a calendar to keep track of important appointments and reminders. Assessment Assessment Current Status: Poor Progress Treatment Plan Continue Plan of Care Speech Short Term Goals Short Term Goals Short Term Goals 1. The patient will demonstrated 75% accuracy with memory exercises with mild clinician verbal and visual cueing. Time Frame-STG: One Week. Speech Ged Instructor Goals Ged Instructor Goals 1. The patient will improve his cognitive linguistic skills for safe discharge to the least restrictive environment. Time Frame: Two Weeks. Speech-Plan Treatment Plan Speech Therapy Treatment Plan: Continue Plan of Care Treatment Duration: Oct 13, 2021 Frequency: 4 times per week (Four to five times per week.) Estimated Hrs Per Day: .5 hour per day Rehab Potential: Poor Safety Risks/Education Teaching Recipient: Patient Teaching Methods: Discussion Response to Teaching: Reinforcement Needed Education Topics Provided: Safety in the Home, External Memory Strategies Time Speech Therapy Time In: 09:30 Speech Therapy Time Out: 10:00 Total Billed Time: 30 Billed Treatment Time 1ROWENA ELIZABETH [facility] Oct 01, 2021 12:05
[2021-10-01 12:57] LABS: BASOPHILS % (AUTO) 0 % (0-10); EOSINOPHILS # (AUTO) 0.3 10^3/uL (0.0-0.3); EOSINOPHILS % (AUTO) 4 % (0-10); HEMATOCRIT 29 % (40-54); HEMOGLOBIN 9.8 g/dL (13.3-17.7); LYMPHOCYTES # (AUTO) 1.4 10^3/uL (1.0-4.0); LYMPHOCYTES % (AUTO) 16 % (12-44); MEAN CORPUSCULAR HEMOGLOBIN 34 pg (25-34); MEAN CORPUSCULAR HGB CONC 34 g/dL (32-36); MEAN CORPUSCULAR VOLUME 100 fL (80-99); MEAN PLATELET VOLUME 8.9 fL (9.0-12.2); MONOCYTES # (AUTO) 1.7 10^3/uL (0.0-1.0); MONOCYTES % (AUTO) 19 % (0-12); NEUTROPHILS # (AUTO) 5.3 10^3/uL (1.8-7.8); NEUTROPHILS % (AUTO) 59 % (42-75); PLATELET COUNT 229 10^3/uL (130-400)
[2021-10-01 13:21] LABS: ALBUMIN 3.3 GM/DL (3.2-4.5); BILIRUBIN,TOTAL 1.6 MG/DL (0.1-1.0); CREATININE SERUM 0.7 MG/DL (0.60-1.30); POTASSIUM 3.7 MMOL/L (3.6-5.0); TOTAL PROTEIN 6.4 GM/DL (6.4-8.2)
[2021-10-01 13:41] LABS: ANISOCYTOSIS SLIGHT; BASOPHILS % (MANUAL) 0 %; EOSINOPHILS % (MANUAL) 1 %; LYMPHOCYTES % (MANUAL) 19 %; MONOCYTES % (MANUAL) 16 %; NEUTROPHILS % (MANUAL) 64 %
[2021-10-01 13:42] LABS: POLYCHROMASIA SLIGHT
--- NOTE | 2021-10-01 14:36 | Therapy Group Daily Note ---
Therapy Daily Group Note Patient Education Topic Home Safety Exercises LE Seated Exercise, UE Exercise Session Ratio (pt:therapist): 8:2 Goal of Session: Home Safety Strategies, UE/LE Strengthing Goal Met for this Session: Yes Pt Benefit of Group: Contributions to Others, F/U Use of Strategies @Home, Increased Functional Safety, Increased Functional Strength, Improved Cognition, Recognition of Peers, Socialization Other/Notes Pt transported via w/c to therapy gym for OT/PT group. Group consisted of introductions (name, place living, bqlg-j-xiegyfll), socialization, B UE/LE exercises and educational topic of home safety. Pt actively listened to peers and introduced self appropriately. Pt attempted to complete B UE/LE seated exercises though had difficulty due to pain. Pt verbalized understanding of educational topic and gave personal strategies used in home environment. After session, pt sat in recliner with call light/phone in reach. All needs met in room. Start Time: 13:00 Stop Time: 14:10 Total Billed Treatment Time: 70 Total Billed Treatment 1-ATTILA MORALES Oct 01, 2021 14:36
[2021-10-01] MEDS: morphine ER 15 MG (MS CONTIN) TAB PO SCH ×2 (14:45→20:50)
[2021-10-01] MEDS: morphine IMMEDIATE RELEASE 15 MG TABLET PO PRN (16:35)
[2021-10-01] MEDS: LORazepam 0.5 MG (ATIVAN) TABLET PO PRN (18:32)
[2021-10-01 20:02] VITALS: BP 178/79
[2021-10-01] MEDS: LORazepam 1 MG (ATIVAN) TAB PO PRN (20:49)
[2021-10-01] MEDS ORDERED: cloNIDine 0.1 MG (CATAPRES) TAB PO PRN (21:45)
[2021-10-02] MEDS: morphine IMMEDIATE RELEASE 15 MG TABLET PO PRN ×3 (03:06→16:59)
[2021-10-02] MEDS: RT-ALBUTEROL/IPRATROPIUM 3 ML (DUONEB) VIAL INH SCH ×6 (03:17→22:18)
--- NOTE | 2021-10-02 07:14 | PM&R Progress Note ---
Subjective HPI/CC On Admission Date Seen by Provider: Oct 02, 2021 Time Seen by Provider: 12:00 Subjective/Events-last exam 10/02/2021: Doing better Pain is an issue Checked meds and labs 10/01/2021: Pt requiring pain medication changes Overall having no significant other issues Morphine extended release and immediate release and discontinue Oxycodone and Morphine IV Soap suds enema will be given since he hasn't had a BM for 6 days 09/30/2021: Patient settling in well Pain is improved Hypoxia noted Hgb 7.8 and dyspnea noted and cardiac dysfunction noted so will transfuse O2 maintained BM need to move Nebs ordered Review of Systems General: Fatigue, Malaise Objective Exam Vital Signs Vital Signs Date Time Temp Pulse Resp B/P (MAP) Pulse Ox O2 Delivery O2 Flow Rate FiO2 10/02/21 15:07 96 Nasal Cannula 3.00 10/02/21 07:30 37.1 80 20 143/77 (99) 09/29/21 14:57 32 Capillary Refill : General Appearance: No Apparent Distress, WD/WN, Anxious, Chronically ill HEENT: PERRL/EOMI, Normal ENT Inspection, Pharynx Normal Neck: Full Range of Motion, Normal Inspection, Non Tender, Supple, Carotid Bruit Respiratory: Chest Non Tender, Lungs Clear, No Accessory Muscle Use, No Respiratory Distress, Decreased Breath Sounds Cardiovascular: No Edema, No Gallop, No JVD, No Murmur, Normal Peripheral Pulses, Irregularly Irregular, Tachycardia Gastrointestinal: Normal Bowel Sounds, No Organomegaly, No Pulsatile Mass, Non Tender, Soft Back: Normal Inspection, No CVA Tenderness, No Vertebral Tenderness Extremity: Normal Capillary Refill, Normal Inspection, Normal Range of Motion, Non Tender, No Calf Tenderness, No Pedal Edema Neurologic/Psychiatric: Alert, No Motor/Sensory Deficits, Normal Mood/Affect, Abnormal Gait, Disoriented, Motor Weakness (all extremities) Skin: Normal Color, Warm/Dry Lymphatic: No Adenopathy Results/Procedures Lab Patient resulted labs reviewed. FIM Transfers Therapy Code Descriptions/Definitions Functional [place] Measure: 0=Not Assessed/NA 4=Minimal Assistance 1=Total Assistance 5=Supervision or Setup 2=Maximal Assistance 6=Modified [place] 3=Moderate Assistance 7=Complete IndependenceSCALE: Activities may be completed with or without assistive devices. 0-Xebafdwysd-rsgikkb completes the activity by him/herself with no assistance from a helper. 5-Set-up or Clean-up Assistance-helper sets up or cleans up; patient completes activity. [place] assists only prior to or following the activity. 4-Supervision or Touching Assistance-helper provides verbal cues and/or touching/steadying and/or contact guard assistance as patient completes activit y. Assistance may be provided throughout the activity or intermittently. 3-Partial/Moderate Assistance-helper does LESS THAN HALF the effort. [place] lifts, holds or supports trunk or limbs, but provides less than half the effort. 2-Substantial/Maximal Assistance-helper does MORE THAN HALF the effort. [place] lifts or holds trunk or limbs and provides more than half the effort. 7-Cppoyener-xetsfs does ALL the effort. Patient does none of the effort to complete the activity. Or, the assistance of 2 or more helpers is required for the patient to complete the activity. If activity was not attempted, code reason: 7-Patient Refused. 9-Not Applicable-not attempted and the patient did not perform the activity before the current illness, exacerbation or injury. 10-Not Attempted due to Environmental Limitations-(lack of equipment, weather restraints, etc.). 88-Not Attempted due to Medical Conditions or Safety Concerns. Roll Left to Right (QC): 4 Sit to Lying (QC): 3 Sit to Stand (QC): 3 Chair/Erg-oq-Bpnfq Xfer(QC): 4 Car Transfer (QC): 2 Gait Training Does the Patient Walk?: No and Walking Goal IS indicated Distance: 20'x2 Walk 10 feet (QC): 4 Walk 50 ft with 2 Turns(QC): 88 Walk 150 ft (QC): 88 Walking 10ft/uneven surface-QC: 88 Gait Persons Needed: 1 Gait Assistive Device: FWW Wheelchair Training Does the Pt Use a Wheelchair?: Yes Wheel 50 ft with 2 turns (QC): 4 Wheel 150 ft (QC): 9 Type of Wheelchair: Manual Stair Training 1 Step (curb) (QC): 88 4 Steps (QC): 88 12 Steps (QC): 88 Balance Picking up an Object (QC): 88 ADL-Treatment Eating (QC): 4 Oral Hygiene (QC): 7 Shower/Bathe Self (QC): 88 Upper Body Dressing (QC): 4 Lower Body Dressing (QC): 2 On/Off Footwear (QC): 1 Toileting Hygiene (QC): 1 (garcia catheter) Toilet Transfer (QC): 3 (per clinical judgment) Assessment/Plan Assessment and Plan Assess & Plan/Chief Complaint Assessment: Right hip fracture Alcoholism s/p active withdrawal Smoker AF CAD CABG hx Post op anemia from acute blood loss requiring transfusion on 1 unit of blood 09/30/21 Constipation Plan: Monitor closely Garcia DC soon O2 PT OT with rest breaks 09/30/2021: Transfuse Monitor pain Monitor O2 10/01/2021: Enema Pain med transition to PO 10/02/2021: Pain control Monitor closely (1) Coronary artery disease without angina pectoris Assessment & Plan: He is not having any angina. He reportedly had a coronary stent around August 2021. He is on clopidogrel and beta-subhash. He is not on aspirin since he takes apixaban for atrial fibrillation. Unclear why he is not on statin medication. I have added a lipid panel to previous labs. (2) Paroxysmal atrial fibrillation Assessment & Plan: He has a reported history of paroxysmal atrial fibrillation. His electrocardiogram from admission shows sinus rhythm. He is on beta-subhash for rate control and apixaban for stroke prophylaxis. There is no indication for telemetry monitoring at this point in time. (3) Primary hypertension Assessment & Plan: Blood pressure has been reasonably controlled with the current medication. (4) Mixed hyperlipidemia Assessment & Plan: He has a history of hyperlipidemia but is not currently on a statin medication. I have added a lipid panel to previous labs. (5) Acute on chronic respiratory failure with hypoxemia Assessment & Plan: Most likely due to his severe underlying chronic obstructive pulmonary disease. He should continue with oxygen. ALEXANDRA JUDGE DO Oct 02, 2021 07:14
[2021-10-02 07:30] VITALS: BP 143/77
[2021-10-02] MEDS: CLOPIDOGREL 75 MG (PLAVIX) TABLET PO SCH (07:52)
[2021-10-02] MEDS: FOLIC ACID 1 MG TAB PO SCH (07:52)
[2021-10-02] MEDS: morphine ER 15 MG (MS CONTIN) TAB PO SCH ×2 (07:52→20:56)
[2021-10-02] MEDS: DOCUSATE SODIUM 100 MG (COLACE) CAP PO SCH ×2 (07:52→20:01)
[2021-10-02] MEDS: meTOprolol TARTRATE 25 MG (LOPRESSOR) TABLET PO SCH ×2 (07:52→20:00)
[2021-10-02] MEDS: guaiFENesin (MUCINEX) 600 MG TAB PO SCH ×2 (07:52→20:01)
[2021-10-02] MEDS: APIXABAN 5 MG (ELIQUIS) TABLET PO SCH ×2 (07:52→20:01)
[2021-10-02] MEDS: amLODIPine 5 MG (NORVASC) TAB PO SCH (07:52)
[2021-10-02] MEDS: SENNA W/DOCUSATE (SENOKOT S) TABLET PO SCH ×2 (07:52→20:00)
[2021-10-02] MEDS: polyethylene glycoL POWDER 17 GM (MIRALAX) PACK PO SCH ×2 (09:10→20:01)
--- NOTE | 2021-10-02 11:15 | Physical Therapy Daily Note ---
PT Daily Note-Current Subjective Upon arrival, pt was supine in bed. Pt states he slept fine. Pt agrees to PT Mental Status Patient Orientation: Person, Place, Situation, [place] Attachments: Oxygen Transfers SCALE: Activities may be completed with or without assistive devices. 1-Fwagfbknsp-hqhpvfh completes the activity by him/herself with no assistance from a helper. 5-Set-up or Clean-up Assistance-helper sets up or cleans up; patient completes activity. [place] assists only prior to or following the activity. 4-Supervision or Touching Assistance-helper provides verbal cues and/or touching/steadying and/or contact guard assistance as patient completes activity. Assistance may be provided throughout the activity or intermittently. 3-Partial/Moderate Assistance-helper does LESS THAN HALF the effort. [place] lifts, holds or supports trunk or limbs, but provides less than half the effort. 2-Substantial/Maximal Assistance-helper does MORE THAN HALF the effort. [place] lifts or holds trunk or limbs and provides more than half the effort. 5-Jtxluktsq-zyiepk does ALL the effort. Patient does none of the effort to complete the activity. Or, the assistance of 2 or more helpers is required for the patient to complete the activity. If activity was not attempted, code reason: 7-Patient Refused. 9-Not Applicable-not attempted and the patient did not perform the activity before the current illness, exacerbation or injury. 10-Not Attempted due to Environmental Limitations-(lack of equipment, weather restraints, etc.). 88-Not Attempted due to Medical Conditions or Safety Concerns. Weight Bearing Right Lower Extremity: Right Non Weight Bearing Left Lower Extremity: Left Non Weight Bearing Gait Training Does the Patient Walk?: No and Walking Goal IS indicated Wheelchair Training Does the Pt Use a Wheelchair?: No Exercises Supine Ex: Ankle pumps, Heel Slides, Hip abd/add Supine Reps: 10 Treatments Pt performed and completed all Exs listed above. Once PT was concluded, pt was supine in bed with call light and tray in reach and all needs met. Assessment Current Status: Good Progress, Fair Progress Pt required assistance with hip abd, due to pain with movement and weakness. Pt states that he thinks he sees improvement. Pt would benefit from continued PT to improve on strength and activity tolerance. PT Intermediate Goals Forest Scientist Goals PT Forest Scientist Goals Time Frame: Oct 22, 2021 Roll Left & Right (QC): 4 Sit to Lying (QC): 4 Lying-Sitting on Side/Bed(QC): 4 Sit to Stand (QC): 4 Chair/Hno-pz-Nwpjc Xfer(QC): 4 Toilet Transfer (QC): 4 Car Transfer (QC): 4 Does the Patient Walk: Yes Walk 10 feet (QC): 4 Walk 50ft with 2 Turns (QC): 4 Walk 150 ft (QC): 3 Walking 10ft on Uneven Surface: 4 1 Step (curb) (QC): 3 4 Steps (QC): 3 12 Steps (QC): 3 Picking up an Object (QC): 4 Does the Pt use WC or Scooter?: No Wheel 50 feet with 2 turns (QC: 9 Wheel 150 feet: 9 PT Plan Problem List Problem List: Activity Tolerance, Functional Strength Treatment/Plan Treatment Plan: Continue Plan of Care Treatment Plan: Bed Mobility, Education, Functional Activity Yoanna, Functional Strength, Group Therapy, Gait, Safety, Therapeutic Exercise, Transfers Treatment Duration: Nov 05, 2021 Frequency: At least 5 of 7 days/Wk (IRF) Estimated Hrs Per Day: 1.5 hours per day Patient and/or Family Agrees t: Yes Time/GCodes Time In: 1045 Time Out: 1100 Total Billed Treatment Time: 15 Total Billed Treatment 1, Exs 15 SITA MYERS PTA Oct 02, 2021 11:15
[2021-10-02] MEDS: ACETAMINOPHEN 325 MG TABLET PO PRN (19:58)
[2021-10-02 20:00] VITALS: BP 148/69
[2021-10-03] MEDS: RT-ALBUTEROL/IPRATROPIUM 3 ML (DUONEB) VIAL INH SCH ×6 (01:08→21:40)
[2021-10-03] MEDS: morphine IMMEDIATE RELEASE 15 MG TABLET PO PRN ×4 (01:08→17:15)
--- NOTE | 2021-10-03 07:12 | PM&R Progress Note ---
Subjective HPI/CC On Admission Date Seen by Provider: Oct 03, 2021 Time Seen by Provider: 12:00 Subjective/Events-last exam 10/03/2021: Doing much better Lungs remain clear O2 is at 3L/min at home Labs due tomorrow Pain improved 10/02/2021: Doing better Pain is an issue Checked meds and labs 10/01/2021: Pt requiring pain medication changes Overall having no significant other issues Morphine extended release and immediate release and discontinue Oxycodone and Morphine IV Soap suds enema will be given since he hasn't had a BM for 6 days 09/30/2021: Patient settling in well Pain is improved Hypoxia noted Hgb 7.8 and dyspnea noted and cardiac dysfunction noted so will transfuse O2 maintained BM need to move Nebs ordered Review of Systems General: Fatigue, Malaise Objective Exam Vital Signs Vital Signs Date Time Temp Pulse Resp B/P (MAP) Pulse Ox O2 Delivery O2 Flow Rate FiO2 10/04/21 04:32 95 Nasal Cannula 3.00 10/03/21 19:50 36.0 80 20 121/78 (92) 09/29/21 14:57 32 Capillary Refill : General Appearance: No Apparent Distress, WD/WN, Anxious, Chronically ill HEENT: PERRL/EOMI, Normal ENT Inspection, Pharynx Normal Neck: Full Range of Motion, Normal Inspection, Non Tender, Supple, Carotid Bruit Respiratory: Chest Non Tender, Lungs Clear, No Accessory Muscle Use, No Respiratory Distress, Decreased Breath Sounds Cardiovascular: No Edema, No Gallop, No JVD, No Murmur, Normal Peripheral Pulses, Irregularly Irregular, Tachycardia Gastrointestinal: Normal Bowel Sounds, No Organomegaly, No Pulsatile Mass, Non Tender, Soft Back: Normal Inspection, No CVA Tenderness, No Vertebral Tenderness Extremity: Normal Capillary Refill, Normal Inspection, Normal Range of Motion, Non Tender, No Calf Tenderness, No Pedal Edema Neurologic/Psychiatric: Alert, No Motor/Sensory Deficits, Normal Mood/Affect, Abnormal Gait, Disoriented, Motor Weakness Skin: Normal Color, Warm/Dry Lymphatic: No Adenopathy Results/Procedures Lab Patient resulted labs reviewed. FIM Transfers Therapy Code Descriptions/Definitions Functional [place] Measure: 0=Not Assessed/NA 4=Minimal Assistance 1=Total Assistance 5=Supervision or Setup 2=Maximal Assistance 6=Modified [place] 3=Moderate Assistance 7=Complete IndependenceSCALE: Activities may be completed with or without assistive devices. 4-Wnuznjkrtm-dhuvrqn completes the activity by him/herself with no assistance from a helper. 5-Set-up or Clean-up Assistance-helper sets up or cleans up; patient completes activity. [place] assists only prior to or following the activity. 4-Supervision or Touching Assistance-helper provides verbal cues and/or touching/steadying and/or contact guard assistance as patient completes activity. Assistance may be provided throughout the activity or intermittently. 3-Partial/Moderate Assistance-helper does LESS THAN HALF the effort. [place] lifts, holds or supports trunk or limbs, but provides less than half the effort. 2-Substantial/Maximal Assistance-helper does MORE THAN HALF the effort. [place] lifts or holds trunk or limbs and provides more than half the effort. 5-Rnkbwqzgd-etilxg does ALL the effort. Patient does none of the effort to complete the activity. Or, the assistance of 2 or more helpers is required for the patient to complete the activity. If activity was not attempted, code reason: 7-Patient Refused. 9-Not Applicable-not attempted and the patient did not perform the activity before the current illness, exacerbation or injury. 10-Not Attempted due to Environmental Limitations-(lack of equipment, weather restraints, etc.). 88-Not Attempted due to Medical Conditions or Safety Concerns. Roll Left to Right (QC): 4 Sit to Lying (QC): 3 Sit to Stand (QC): 3 Chair/Lyb-xh-Dcbzd Xfer(QC): 4 Car Transfer (QC): 2 Gait Training Does the Patient Walk?: No and Walking Goal IS indicated Distance: 20'x2 Walk 10 feet (QC): 4 Walk 50 ft with 2 Turns(QC): 88 Walk 150 ft (QC): 88 Walking 10ft/uneven surface-QC: 88 Gait Persons Needed: 1 Gait Assistive Device: FWW Wheelchair Training Does the Pt Use a Wheelchair?: No Wheel 50 ft with 2 turns (QC): 4 Wheel 150 ft (QC): 9 Type of Wheelchair: Manual Stair Training 1 Step (curb) (QC): 88 4 Steps (QC): 88 12 Steps (QC): 88 Balance Picking up an Object (QC): 88 ADL-Treatment Eating (QC): 4 Oral Hygiene (QC): 7 Shower/Bathe Self (QC): 88 Upper Body Dressing (QC): 4 Lower Body Dressing (QC): 2 On/Off Footwear (QC): 1 Toileting Hygiene (QC): 1 (garcia catheter) Toilet Transfer (QC): 3 (per clinical judgment) Assessment/Plan Assessment and Plan Assess & Plan/Chief Complaint Assessment: Right hip fracture Alcoholism s/p active withdrawal Smoker AF CAD CABG hx Post op anemia from acute blood loss requiring transfusion on 1 unit of blood 09/30/21 Constipation Plan: Monitor closely Garcia DC soon O2 PT OT with rest breaks 09/30/2021: Transfuse Monitor pain Monitor O2 10/01/2021: Enema Pain med transition to PO 10/02/2021: Pain control Monitor closely 10/03/2021: Monitor hgb Pain control (1) Coronary artery disease without angina pectoris Assessment & Plan: He is not having any angina. He reportedly had a coronary stent around August 2021. He is on clopidogrel and beta-subhash. He is not on aspirin since he takes apixaban for atrial fibrillation. Unclear why he is not on statin medication. I have added a lipid panel to previous labs. (2) Paroxysmal atrial fibrillation Assessment & Plan: He has a reported history of paroxysmal atrial fibrillation. His electrocardiogram from admission shows sinus rhythm. He is on beta-subhash for rate control and apixaban for stroke prophylaxis. There is no indication for telemetry monitoring at this point in time. (3) Primary hypertension Assessment & Plan: Blood pressure has been reasonably controlled with the current medication. (4) Mixed hyperlipidemia Assessment & Plan: He has a history of hyperlipidemia but is not currently on a statin medication. I have added a lipid panel to previous labs. (5) Acute on chronic respiratory failure with hypoxemia Assessment & Plan: Most likely due to his severe underlying chronic obstructive pulmonary disease. He should continue with oxygen. ALEXANDRA JUDGE DO Oct 03, 2021 07:12
[2021-10-03 07:25] VITALS: BP 148/69
[2021-10-03 07:30] VITALS: BP 119/76
[2021-10-03] MEDS: FOLIC ACID 1 MG TAB PO SCH (08:37)
[2021-10-03] MEDS: amLODIPine 5 MG (NORVASC) TAB PO SCH (08:37)
[2021-10-03] MEDS: polyethylene glycoL POWDER 17 GM (MIRALAX) PACK PO SCH ×2 (08:37→19:40)
[2021-10-03] MEDS: CLOPIDOGREL 75 MG (PLAVIX) TABLET PO SCH (08:37)
[2021-10-03] MEDS: meTOprolol TARTRATE 25 MG (LOPRESSOR) TABLET PO SCH ×2 (08:37→20:59)
[2021-10-03] MEDS: SENNA W/DOCUSATE (SENOKOT S) TABLET PO SCH ×2 (08:37→20:59)
[2021-10-03] MEDS: APIXABAN 5 MG (ELIQUIS) TABLET PO SCH ×2 (08:37→21:00)
[2021-10-03] MEDS: morphine ER 15 MG (MS CONTIN) TAB PO SCH ×2 (08:37→21:00)
[2021-10-03] MEDS: guaiFENesin (MUCINEX) 600 MG TAB PO SCH ×2 (08:38→21:00)
[2021-10-03] MEDS: DOCUSATE SODIUM 100 MG (COLACE) CAP PO SCH ×2 (08:38→20:59)
[2021-10-03 19:50] VITALS: BP 121/78
[2021-10-03] MEDS: ACETAMINOPHEN 325 MG TABLET PO PRN (23:55)
[2021-10-04] MEDS: morphine IMMEDIATE RELEASE 15 MG TABLET PO PRN ×6 (01:06→22:23)
[2021-10-04] MEDS: RT-ALBUTEROL/IPRATROPIUM 3 ML (DUONEB) VIAL INH SCH ×6 (04:15→22:01)
--- NOTE | 2021-10-04 06:04 | PM&R Progress Note ---
Subjective HPI/CC On Admission Date Seen by Provider: Oct 04, 2021 Time Seen by Provider: 09:00 Subjective/Events-last exam 10/04/2021: Pt is doing well Hemoglobin is 9.0 Drainage from the incision is less Sodium level is 130 10/03/2021: Doing much better Lungs remain clear O2 is at 3L/min at home Labs due tomorrow Pain improved 10/02/2021: Doing better Pain is an issue Checked meds and labs 10/01/2021: Pt requiring pain medication changes Overall having no significant other issues Morphine extended release and immediate release and discontinue Oxycodone and Morphine IV Soap suds enema will be given since he hasn't had a BM for 6 days 09/30/2021: Patient settling in well Pain is improved Hypoxia noted Hgb 7.8 and dyspnea noted and cardiac dysfunction noted so will transfuse O2 maintained BM need to move Nebs ordered Review of Systems General: Fatigue, Malaise Objective Exam Vital Signs Vital Signs Date Time Temp Pulse Resp B/P (MAP) Pulse Ox O2 Delivery O2 Flow Rate FiO2 10/04/21 19:42 37.2 73 16 125/64 (84) 95 Nasal Cannula 2.00 09/29/21 14:57 32 Capillary Refill : General Appearance: No Apparent Distress, WD/WN, Anxious, Chronically ill HEENT: PERRL/EOMI, Normal ENT Inspection, Pharynx Normal Neck: Full Range of Motion, Normal Inspection, Non Tender, Supple, Carotid Bruit Respiratory: Chest Non Tender, Lungs Clear, No Accessory Muscle Use, No Respiratory Distress, Decreased Breath Sounds Cardiovascular: No Edema, No Gallop, No JVD, No Murmur, Normal Peripheral Pul ses, Irregularly Irregular, Tachycardia Gastrointestinal: Normal Bowel Sounds, No Organomegaly, No Pulsatile Mass, Non Tender, Soft Back: Normal Inspection, No CVA Tenderness, No Vertebral Tenderness Extremity: Normal Capillary Refill, Normal Inspection, Normal Range of Motion, Non Tender, No Calf Tenderness, No Pedal Edema Neurologic/Psychiatric: Alert, No Motor/Sensory Deficits, Normal Mood/Affect, Abnormal Gait, Disoriented, Motor Weakness Skin: Normal Color, Warm/Dry Lymphatic: No Adenopathy Results/Procedures Lab Laboratory Tests 10/04/21 05:35 Patient resulted labs reviewed. FIM Transfers Therapy Code Descriptions/Definitions Functional [place] Measure: 0=Not Assessed/NA 4=Minimal Assistance 1=Total Assistance 5=Supervision or Setup 2=Maximal Assistance 6=Modified [place] 3=Moderate Assistance 7=Complete IndependenceSCALE: Activities may be completed with or without assistive devices. 1-Srqlgjgwxw-nnwznqq completes the activity by him/herself with no assistance from a helper. 5-Set-up or Clean-up Assistance-helper sets up or cleans up; patient completes activity. [place] assists only prior to or following the activity. 4-Supervision or Touching Assistance-helper provides verbal cues and/or touching/steadying and/or contact guard assistance as patient completes activity. Assistance may be provided throughout the activity or intermittently. 3-Partial/Moderate Assistance-helper does LESS THAN HALF the effort. [place] lifts, holds or supports trunk or limbs, but provides less than half the effort. 2-Substantial/Maximal Assistance-helper does MORE THAN HALF the effort. [place] lifts or holds trunk or limbs and provides more than half the effort. 8-Gtabngubx-vprqum does ALL the effort. Patient does none of the effort to complete the activity. Or, the assistance of 2 or more helpers is required for the patient to complete the activity. If activity was not attempted, code reason: 7-Patient Refused. 9-Not Applicable-not attempted and the patient did not perform the activity before the current illness, exacerbation or injury. 10-Not Attempted due to Environmental Limitations-(lack of equipment, weather restraints, etc.). 88-Not Attempted due to Medical Conditions or Safety Concerns. Roll Left to Right (QC): 4 Sit to Lying (QC): 3 Sit to Stand (QC): 3 Chair/Ymj-ng-Qdoik Xfer(QC): 4 Car Transfer (QC): 2 Gait Training Does the Patient Walk?: No and Walking Goal IS indicated Distance: 20'x2 Walk 10 feet (QC): 4 Walk 50 ft with 2 Turns(QC): 88 Walk 150 ft (QC): 88 Walking 10ft/uneven surface-QC: 88 Gait Persons Needed: 1 Gait Assistive Device: FWW Wheelchair Training Does the Pt Use a Wheelchair?: No Wheel 50 ft with 2 turns (QC): 4 Wheel 150 ft (QC): 9 Type of Wheelchair: Manual Stair Training 1 Step (curb) (QC): 88 4 Steps (QC): 88 12 Steps (QC): 88 Balance Picking up an Object (QC): 88 ADL-Treatment Eating (QC): 4 Oral Hygiene (QC): 7 Shower/Bathe Self (QC): 88 Upper Body Dressing (QC): 4 Lower Body Dressing (QC): 2 On/Off Footwear (QC): 1 Toileting Hygiene (QC): 1 (garcia catheter) Toilet Transfer (QC): 3 (per clinical judgment) Assessment/Plan Assessment and Plan Assess & Plan/Chief Complaint Assessment: Right hip fracture Alcoholism s/p active withdrawal Smoker AF CAD CABG hx Post op anemia from acute blood loss requiring transfusion on 1 unit of blood 09/30/21 Constipation Plan: Monitor closely Garcia DC soon O2 PT OT with rest breaks 09/30/2021: Transfuse Monitor pain Monitor O2 10/01/2021: Enema Pain med transition to PO 10/02/2021: Pain control Monitor closely 10/03/2021: Monitor hgb Pain control 10/04/2021: Monitor closely (1) Coronary artery disease without angina pectoris Assessment & Plan: He is not having any angina. He reportedly had a coronary stent around August 2021. He is on clopidogrel and beta-subhash. He is not on aspirin since he takes apixaban for atrial fibrillation. Unclear why he is not on statin medication. I have added a lipid panel to previous labs. (2) Paroxysmal atrial fibrillation Assessment & Plan: He has a reported history of paroxysmal atrial fibrillation. His electrocardiogram from admission shows sinus rhythm. He is on beta-subhash for rate control and apixaban for stroke prophylaxis. There is no indication for telemetry monitoring at this point in time. (3) Primary hypertension Assessment & Plan: Blood pressure has been reasonably controlled with the current medication. (4) Mixed hyperlipidemia Assessment & Plan: He has a history of hyperlipidemia but is not currently on a statin medication. I have added a lipid panel to previous labs. (5) Acute on chronic respiratory failure with hypoxemia Assessment & Plan: Most likely due to his severe underlying chronic obstructive pulmonary disease. He should continue with oxygen. ALEXANDRA JUDGE DO Oct 04, 2021 06:04
[2021-10-04 06:32] LABS: BASOPHILS # (AUTO) 0.1 10^3/uL (0.0-0.1); BASOPHILS % (AUTO) 1 % (0-10); EOSINOPHILS # (AUTO) 0.2 10^3/uL (0.0-0.3); EOSINOPHILS % (AUTO) 3 % (0-10); HEMATOCRIT 28 % (40-54); LYMPHOCYTES # (AUTO) 1.3 10^3/uL (1.0-4.0); LYMPHOCYTES % (AUTO) 19 % (12-44); MEAN CORPUSCULAR HEMOGLOBIN 34 pg (25-34); MEAN CORPUSCULAR HGB CONC 32 g/dL (32-36); MEAN CORPUSCULAR VOLUME 103 fL (80-99); MONOCYTES # (AUTO) 1.2 10^3/uL (0.0-1.0); MONOCYTES % (AUTO) 16 % (0-12); NEUTROPHILS # (AUTO) 4.3 10^3/uL (1.8-7.8); NEUTROPHILS % (AUTO) 59 % (42-75); PLATELET COUNT 349 10^3/uL (130-400); WHITE BLOOD COUNT 7.3 10^3/uL (4.3-11.0)
[2021-10-04 06:45] LABS: ALBUMIN 3.2 GM/DL (3.2-4.5); POTASSIUM 3.8 MMOL/L (3.6-5.0)
[2021-10-04 06:46] LABS: CALCIUM 9.1 MG/DL (8.5-10.1)
[2021-10-04 06:48] LABS: TOTAL PROTEIN 6.2 GM/DL (6.4-8.2)
[2021-10-04 06:49] LABS: BILIRUBIN,TOTAL 1.3 MG/DL (0.1-1.0)
[2021-10-04 06:51] LABS: CREATININE SERUM 0.68 MG/DL (0.60-1.30)
[2021-10-04 07:32] VITALS: BP 123/77
[2021-10-04] MEDS: guaiFENesin (MUCINEX) 600 MG TAB PO SCH ×2 (09:06→20:16)
[2021-10-04] MEDS: CLOPIDOGREL 75 MG (PLAVIX) TABLET PO SCH (09:07)
[2021-10-04] MEDS: amLODIPine 5 MG (NORVASC) TAB PO SCH (09:07)
[2021-10-04] MEDS: meTOprolol TARTRATE 25 MG (LOPRESSOR) TABLET PO SCH ×2 (09:07→20:16)
[2021-10-04] MEDS: APIXABAN 5 MG (ELIQUIS) TABLET PO SCH ×2 (09:07→20:16)
[2021-10-04] MEDS: FOLIC ACID 1 MG TAB PO SCH (09:07)
[2021-10-04] MEDS: morphine ER 15 MG (MS CONTIN) TAB PO SCH ×2 (09:08→20:16)
[2021-10-04] MEDS: SENNA W/DOCUSATE (SENOKOT S) TABLET PO SCH ×2 (09:13→20:17)
[2021-10-04] MEDS: DOCUSATE SODIUM 100 MG (COLACE) CAP PO SCH ×2 (09:13→20:16)
[2021-10-04] MEDS: polyethylene glycoL POWDER 17 GM (MIRALAX) PACK PO SCH ×2 (09:14→20:16)
--- NOTE | 2021-10-04 10:02 | Physical Therapy Daily Note ---
PT Daily Note-Current Subjective Pt laying Supine in bed upon arrival. Pt agrees to PT/OT co-treat. Pain Numeric Pain Scale: 9 Location: Right, Incisional Location Body Site: Hip Pain Description: Tightness, Tingling Comment: Reports feeling like pinched nerve at incisional site. Mental Status Patient Orientation: Person, Place, Situation Attachments: Oxygen (2L) Transfers SCALE: Activities may be completed with or without assistive devices. 4-Ckvkjnkvxr-keptgxk completes the activity by him/herself with no assistance from a helper. 5-Set-up or Clean-up Assistance-helper sets up or cleans up; patient completes activity. [place] assists only prior to or following the activity. 4-Supervision or Touching Assistance-helper provides verbal cues and/or touching/steadying and/or contact guard assistance as patient completes activity. Assistance may be provided throughout the activity or intermittently. 3-Partial/Moderate Assistance-helper does LESS THAN HALF the effort. [place] lifts, holds or supports trunk or limbs, but provides less than half the effort. 2-Substantial/Maximal Assistance-helper does MORE THAN HALF the effort. [place] lifts or holds trunk or limbs and provides more than half the effort. 0-Likeqdfcp-osnwzw does ALL the effort. Patient does none of the effort to complete the activity. Or, the assistance of 2 or more helpers is required for the patient to complete the activity. If activity was not attempted, code reason: 7-Patient Refused. 9-Not Applicable-not attempted and the patient did not perform the activity before the current illness, exacerbation or injury. 10-Not Attempted due to Environmental Limitations-(lack of equipment, weather restraints, etc.). 88-Not Attempted due to Medical Conditions or Safety Concerns. Sit to Stand (QC): 4 Weight Bearing Right Lower Extremity: Right Non Weight Bearing Left Lower Extremity: Left Non Weight Bearing Gait Training Does the Patient Walk?: Yes Distance: 20' x2, 40' Walk 10 feet (QC): 4 Walk 50 ft with 2 Turns(QC): 4 Gait Assistive Device: FWW Reports fatigued and SOA so sits in [facility]. Wheelchair Training Does the Pt Use a Wheelchair?: Yes Type of Wheelchair: Manual Treatments Co-treat with OT for part of treatment ([id number]) secondary to impaired endurance, high oxygen needs, high fall risk, and need of 2 skilled clinicians to progress indep and safety with adls and functional mobility. Co-treat with OT for treatment ([id number]) secondary to impaired endurance, high oxygen needs, high fall risk, and need of 2 skilled clinicians to progress indep and safety with adls and functional mobility. Pt ambulated 3 bouts with walker and SBA- CGA; 20, 20, and 40 feet. Cues for posture and keeping walker on the floor. Distance limited by c/o SOA and hip pain. Assessment Current Status: Good Progress With encouragement pt walked farther on last walk. PT Senior Care Goals Communications Equipment Operator Goals PT Communications Equipment Operator Goals Time Frame: Oct 22, 2021 Roll Left & Right (QC): 4 Sit to Lying (QC): 4 Lying-Sitting on Side/Bed(QC): 4 Sit to Stand (QC): 4 Chair/Ksy-km-Gwgte Xfer(QC): 4 Toilet Transfer (QC): 4 Car Transfer (QC): 4 Does the Patient Walk: Yes Walk 10 feet (QC): 4 Walk 50ft with 2 Turns (QC): 4 Walk 150 ft (QC): 3 Walking 10ft on Uneven Surface: 4 1 Step (curb) (QC): 3 4 Steps (QC): 3 12 Steps (QC): 3 Picking up an Object (QC): 4 Does the Pt use WC or Scooter?: No Wheel 50 feet with 2 turns (QC: 9 Wheel 150 feet: 9 PT Plan Problem List Problem List: Activity Tolerance Treatment/Plan Treatment Plan: Continue Plan of Care Treatment Plan: Bed Mobility, Education, Functional Activity Yoanna, Functional Strength, Group Therapy, Gait, Safety, Therapeutic Exercise, Transfers Treatment Duration: Nov 05, 2021 Frequency: At least 5 of 7 days/Wk (IRF) Estimated Hrs Per Day: 1.5 hours per day Patient and/or Family Agrees t: Yes Safety Risks/Education Patient Education: Gait Training, Correct Positioning Teaching Recipient: Patient Teaching Methods: Discussion Response to Teaching: Verbalize Understanding Time/GCodes Time In: 900 Time Out: 1000 Total Billed Treatment Time: 60 Total Billed Treatment Co-treat for 60m 1, FA x2 (25m) & GT x2 (35m) JOSE DU HAIRSPRING ASSEMBLER Oct 04, 2021 10:02
--- NOTE | 2021-10-04 10:03 | Occupational Ther Daily Note ---
OT Current Status-Daily Note Subjective Pt verbalizes pain in R hip as 9/10. Rn informed and pain meds given. Co-treat with Pt for part of treatment ([id number]) secondary to impaired endurance, high oxygen needs, high fall risk, and need of 2 skilled clinicians to progress indep and safety with adls and functional mobility. Appearance Pt left sitting in recliner, all needs within reach at therapy departure. Chair Alarm set. Mental Status/Objective Patient Orientation: Person ADL-Treatment Therapy Code Descriptions/Definitions Functional [place] Measure: 0=Not Assessed/NA 4=Minimal Assistance 1=Total Assistance 5=Supervision or Setup 2=Maximal Assistance 6=Modified [place] 3=Moderate Assistance 7=Complete IndependenceSCALE: Activities may be completed with or without assistive devices. 9-Jxwwxqiewo-uvkxgmz completes the activity by him/herself with no assistance from a helper. 5-Set-up or Clean-up Assistance-helper sets up or cleans up; patient completes activity. [place] assists only prior to or following the activity. 4-Supervision or Touching Assistance-helper provides verbal cues and/or touching/steadying and/or contact guard assistance as patient completes activity. Assistance may be provided throughout the activity or intermittently. 3-Partial/Moderate Assistance-helper does LESS THAN HALF the effort. [place] lifts, holds or supports trunk or limbs, but provides less than half the effort. 2-Substantial/Maximal Assistance-helper does MORE THAN HALF the effort. [place] lifts or holds trunk or limbs and provides more than half the effort. 8-Lumjbyrce-evihzr does ALL the effort. Patient does none of the effort to complete the activity. Or, the assistance of 2 or more helpers is required for the patient to complete the activity. If activity was not attempted, code reason: 7-Patient Refused. 9-Not Applicable-not attempted and the patient did not perform the activity before the current illness, exacerbation or injury. 10-Not Attempted due to Environmental Limitations-(lack of equipment, weather restraints, etc.). 88-Not Attempted due to Medical Conditions or Safety Concerns. Shower/Bathe Self (QC): 4 Upper Body Dressing (QC): 4 Lower Body Dressing (QC): 3 On/Off Footwear: 3 Toileting Hygiene (QC): 4 Toilet Transfer (QC): 4 Supine>sit: Min a to transition R foot off side of bed. Pt unable to tolerate full shower at this time secondary to pain, SOA with exertion, and poor activity tolerance. Agreeable to complete sponge bath at side of bed. OT introduced and instructed pt on use of LHS for improved energy conservation and pain tolerance when washing LB. Post cues, pt able to wash without assist. Close supervision as he stood to wash tarik area/buttocks with 0-1 UE support on walker. Reminder on use of food service coordinator when threading BLE's into pants. Assist needed to thread LLE after several failed attempts (Pt consistently threading foot into wrong pant leg). He stood with SBA to pull clothing up to waist. Post demonstration from OT, pt was able to don bilateral socks with sock aid and min a. Pt forgetful of when he took last pain pill and time of last breathing treatment. Several reminders on when he can have another treatment/pill. He often initiates several lengthy rest breaks secondary to SOA. Oxygen spot checked several times throughout activity, remains >96%. Currently on 2L. Other Treatment Pt ambulated 3 bouts with walker and SBA-CGA; 20, 20, and 40 feet. Cues for posture and keeping walker on the floor. Distance limited by c/o SOA and hip pain. Education OT Patient Education: Correct positioning, Energy conservation, Modified ADL techniques, Progress toward Goal/Update tx plan, Purpose of tx/functional activities, Reviewed precautions, Rehab process, Safety issues, Transfer techniques, Use of adapted equipment, W/C management Teaching Recipient: Patient Teaching Methods: Demonstration, Discussion Response to Teaching: Verbalize Understanding, Return Demonstration, Reinforcement Needed OT Short Term Goals Short Term Goals Time Frame: Oct 14, 2021 Eatin Oral hygiene: 5 Toileting hygiene: 2 Shower/bathe self: 2 Upper body dressin Lower body dressin Putting on/taking off footwear: 2 OT Five Roll Refiner Batch Mixer Goals Five Roll Refiner Batch Mixer Goals Time Frame: Oct 29, 2021 Eating (QC): 6 Oral Hygiene (QC): 6 Toileting Hygiene (QC): 4 Shower/Bathe Self (QC): 4 Upper Body Dressing (QC): 4 Lower Body Dressing (QC): 4 On/Off Footwear (QC): 4 1=Demonstrate adherence to instructed precautions during ADL tasks. 2=Patient will verbalize/demonstrate understanding of assistive devices/modifications for ADL. 3=Patient will improve strength/tolerance for activity to enable patient to perform ADL's. OT Education/Plan Problem List/Assessment Assessment: Decreased Activ Tolerance, Decreased Safety Aware, Decreased UE Strength, Impaired Bed Mobility, Impaired Cognition, Impaired Funct Balance, Impaired I ADL's, Impaired Self-Care Skills Discharge Recommendations Plan/Recommendations: Continue POC Equpiment Recommendations-D/C: Country Director, Sock Aide Treatment Plan/Plan of Care Treatment,Training & Education: Yes Patient would benefit from OT for education, treatment and training to promote independence in ADL's, mobility, safety and/or upper extremity function for ADL's. Plan of Care: ADL Retraining, Caregiver Training, Functional Mobility, Group Exercise/Act as Ind, UE Funct Exercise/Act, W/C Management Training Treatment Duration: Oct 29, 2021 Frequency: Modified Program (IRF) (24/09) Estimated Hrs Per Day: 1.5 hours per day (75-90 min/day ) Agreement: Yes Rehab Potential: Poor Time/GCodes Start Time: 08:45 Stop Time: 10:00 Total Time Billed (hr/min): 75 Billed Treatment Time 1 visit ADL x3 (50 min) FA x2 (25 min) Kiley Pena OT Oct 04, 2021 10:03
--- NOTE | 2021-10-04 12:01 | Speech Therapy Daily Note ---
Speech Daily Progress Note Subjective Date Seen by Provider: Oct 04, 2021 Time Seen by Provider: 08:00 The patient was seated upright in bed, awake and alert upon entrance to his room by the clinician. The patient greeted the clinician appropriately and was agreeable to participation in the cognitive linguistic treatment session. Objective Orientation: The patient required maximum verbal redirection and cueing to identify accurate orientation information. Independently, the patient stated the month was "five." With maximum visual and verbal cues, the patient was able to read orientation information from the in-room white board. The patient attempted delayed recall of five words. Immediately the patient was able to recall three of five words. Following a five minute delay and the use of repetition, association, and visualization, the patient was able to recall two of five words stating, "My mind was wondering." Category cues did not increase the patient's accuracy. Assessment Assessment Current Status: Poor Progress Treatment Plan Continue Plan of Care Speech Short Term Goals Short Term Goals Short Term Goals 1. The patient will demonstrated 75% accuracy with memory exercises with mild clinician verbal and visual cueing. Time Frame-STG: One Week. Speech Care Home Goals Willow Machine Tender Goals 1. The patient will improve his cognitive linguistic skills for safe discharge to the least restrictive environment. Time Frame: Two Weeks. Speech-Plan Treatment Plan Speech Therapy Treatment Plan: Continue Plan of Care Treatment Duration: Oct 13, 2021 Frequency: 4 times per week (Four to five times per week.) Estimated Hrs Per Day: .5 hour per day Rehab Potential: Poor Safety Risks/Education Teaching Recipient: Patient Teaching Methods: Demonstration, Discussion Response to Teaching: Reinforcement Needed Education Topics Provided: Internal Memory Strategies Time Speech Therapy Time In: 08:30 Speech Therapy Time Out: 09:00 Total Billed Time: 30 Billed Treatment Time ROWENA Georges ELIZABETH Oct 04, 2021 12:00
--- NOTE | 2021-10-04 15:00 | Physical Therapy Daily Note ---
PT Daily Note-Current Subjective Pt sitting up in bed after just finishing lunch. Pt agrees to limited tx as pt reports pain (which he had just received pain medicine) and in need of breathing tx. RT arrived at end of tx. Pain Location: Right, Incisional Location Body Site: Hip Pain Description: Ache Comment: Reported but not rated Mental Status Patient Orientation: Person, Place Attachments: Oxygen Transfers SCALE: Activities may be completed with or without assistive devices. 2-Dtdnmnnxba-pspghmx completes the activity by him/herself with no assistance from a helper. 5-Set-up or Clean-up Assistance-helper sets up or cleans up; patient completes activity. [place] assists only prior to or following the activity. 4-Supervision or Touching Assistance-helper provides verbal cues and/or touching/steadying and/or contact guard assistance as patient completes activity. Assistance may be provided throughout the activity or intermittently. 3-Partial/Moderate Assistance-helper does LESS THAN HALF the effort. [place] lifts, holds or supports trunk or limbs, but provides less than half the effort. 2-Substantial/Maximal Assistance-helper does MORE THAN HALF the effort. [place] lifts or holds trunk or limbs and provides more than half the effort. 7-Ggaghidyn-jwudvw does ALL the effort. Patient does none of the effort to complete the activity. Or, the assistance of 2 or more helpers is required for the patient to complete the activity. If activity was not attempted, code reason: 7-Patient Refused. 9-Not Applicable-not attempted and the patient did not perform the activity before the current illness, exacerbation or injury. 10-Not Attempted due to Environmental Limitations-(lack of equipment, weather restraints, etc.). 88-Not Attempted due to Medical Conditions or Safety Concerns. Weight Bearing Right Lower Extremity: Right Non Weight Bearing Left Lower Extremity: Left Non Weight Bearing Treatments Pt refused standing or transfers as pt is in pain and pain medicine wasn't working yet. Pt is able to scoot up in bed. WETLAND SCIENTIST encourages pt to try to move a little as this will help reduce pain & stiffness. RT arrives at end of tx fr breathing tx. All needs met, call light in hand. Assessment Current Status: Fair Progress Pain and perceived SOA limits participation. RT takes O2 and pt at 95% but reporting SOA. PT Dormitory Maid Goals Fdc Goals PT Dormitory Maid Goals Time Frame: Oct 22, 2021 Roll Left & Right (QC): 4 Sit to Lying (QC): 4 Lying-Sitting on Side/Bed(QC): 4 Sit to Stand (QC): 4 Chair/Ewv-tw-Eqjte Xfer(QC): 4 Toilet Transfer (QC): 4 Car Transfer (QC): 4 Does the Patient Walk: Yes Walk 10 feet (QC): 4 Walk 50ft with 2 Turns (QC): 4 Walk 150 ft (QC): 3 Walking 10ft on Uneven Surface: 4 1 Step (curb) (QC): 3 4 Steps (QC): 3 12 Steps (QC): 3 Picking up an Object (QC): 4 Does the Pt use WC or Scooter?: No Wheel 50 feet with 2 turns (QC: 9 Wheel 150 feet: 9 PT Plan Problem List Problem List: Activity Tolerance Treatment/Plan Treatment Plan: Continue Plan of Care Treatment Plan: Bed Mobility, Education, Functional Activity Yoanna, Functional Strength, Group Therapy, Gait, Safety, Therapeutic Exercise, Transfers Treatment Duration: Nov 05, 2021 Frequency: At least 5 of 7 days/Wk (IRF) Estimated Hrs Per Day: 1.5 hours per day Patient and/or Family Agrees t: Yes Safety Risks/Education Patient Education: Transfer Techniques, Correct Positioning, Safety Issues Teaching Recipient: Patient Teaching Methods: Discussion Response to Teaching: Reinforcement Needed Time/GCodes Time In: 1415 Time Out: 1430 Total Billed Treatment Time: 15 Total Billed Treatment 1, BROCK (15m) JOSE DU PTA Oct 04, 2021 15:00
[2021-10-04 19:42] VITALS: BP 125/64
[2021-10-04] MEDS: LORazepam 1 MG (ATIVAN) TAB PO PRN (21:49)
[2021-10-05] MEDS: RT-ALBUTEROL/IPRATROPIUM 3 ML (DUONEB) VIAL INH SCH ×6 (02:47→21:46)
--- NOTE | 2021-10-05 06:08 | PM&R Progress Note ---
Subjective HPI/CC On Admission Date Seen by Provider: Oct 05, 2021 Time Seen by Provider: 09:00 Subjective/Events-last exam 10/05/2021: Doing better every day Lungs clear BM regimen successful Monitor closely 10/04/2021: Pt is doing well Hemoglobin is 9.0 Drainage from the incision is less Sodium level is 130 10/03/2021: Doing much better Lungs remain clear O2 is at 3L/min at home Labs due tomorrow Pain improved 10/02/2021: Doing better Pain is an issue Checked meds and labs 10/01/2021: Pt requiring pain medication changes Overall having no significant other issues Morphine extended release and immediate release and discontinue Oxycodone and Morphine IV Soap suds enema will be given since he hasn't had a BM for 6 days 09/30/2021: Patient settling in well Pain is improved Hypoxia noted Hgb 7.8 and dyspnea noted and cardiac dysfunction noted so will transfuse O2 maintained BM need to move Nebs ordered Review of Systems General: Fatigue, Malaise Objective Exam Vital Signs Vital Signs Date Time Temp Pulse Resp B/P (MAP) Pulse Ox O2 Delivery O2 Flow Rate FiO2 10/05/21 19:48 36.6 81 24 118/82 (94) 96 Nasal Cannula 2.50 09/29/21 14:57 32 Capillary Refill : General Appearance: No Apparent Distress, WD/WN, Anxious, Chronically ill HEENT: PERRL/EOMI, Normal ENT Inspection, Pharynx Normal Neck: Full Range of Motion, Normal Inspection, Non Tender, Supple, Carotid Bruit Respiratory: Chest Non Tender, Lungs Clear, No Accessory Muscle Use, No Respiratory Distress, Decreased Breath Sounds Cardiovascular: No Edema, No Gallop, No JVD, No Murmur, Normal Peripheral Pulses, Irregularly Irregular, Tachycardia Gastrointestinal: Normal Bowel Sounds, No Organomegaly, No Pulsatile Mass, Non Tender, Soft Back: Normal Inspection, No CVA Tenderness, No Vertebral Tenderness Extremity: Normal Capillary Refill, Normal Inspection, Normal Range of Motion, Non Tender, No Calf Tenderness, No Pedal Edema Neurologic/Psychiatric: Alert, No Motor/Sensory Deficits, Normal Mood/Affect, Abnormal Gait, Disoriented, Motor Weakness Skin: Normal Color, Warm/Dry Lymphatic: No Adenopathy Results/Procedures Lab Patient resulted labs reviewed. FIM Transfers Therapy Code Descriptions/Definitions Functional [place] Measure: 0=Not Assessed/NA 4=Minimal Assistance 1=Total Assistance 5=Supervision or Setup 2=Maximal Assistance 6=Modified [place] 3=Moderate Assistance 7=Complete IndependenceSCALE: Activities may be completed with or without assistive devices. 6-Xzeraisite-cmlpwsd completes the activity by him/herself with no assistance from a helper. 5-Set-up or Clean-up Assistance-helper sets up or cleans up; patient completes activity. [place] assists only prior to or following the activity. 4-Supervision or Touching Assistance-helper provides verbal cues and/or touching/steadying and/or contact guard assistance as patient completes activity. Assistance may be provided throughout the activity or intermittently. 3-Partial/Moderate Assistance-helper does LESS THAN HALF the effort. [place] lifts, holds or supports trunk or limbs, but provides less than half the effort. 2-Substantial/Maximal Assistance-helper does MORE THAN HALF the effort. [place] lifts or holds trunk or limbs and provides more than half the effort. 8-Hzufqtumw-ojcjgl does ALL the effort. Patient does none of the effort to complete the activity. Or, the assistance of 2 or more helpers is required for the patient to complete the activity. If activity was not attempted, code reason: 7-Patient Refused. 9-Not Applicable-not attempted and the patient did not perform the activity before the current illness, exacerbation or injury. 10-Not Attempted due to Environmental Limitations-(lack of equipment, weather restraints, etc.). 88-Not Attempted due to Medical Conditions or Safety Concerns. Roll Left to Right (QC): 4 Sit to Lying (QC): 3 Sit to Stand (QC): 4 Chair/Heg-pn-Hlkkf Xfer(QC): 4 Car Transfer (QC): 2 Gait Training Does the Patient Walk?: Yes Distance: 20' x2, 40' Walk 10 feet (QC): 4 Walk 50 ft with 2 Turns(QC): 4 Walk 150 ft (QC): 88 Walking 10ft/uneven surface-QC: 88 Gait Persons Needed: 1 Gait Assistive Device: FWW Wheelchair Training Does the Pt Use a Wheelchair?: Yes Wheel 50 ft with 2 turns (QC): 4 Wheel 150 ft (QC): 9 Type of Wheelchair: Manual Stair Training 1 Step (curb) (QC): 88 4 Steps (QC): 88 12 Steps (QC): 88 Balance Picking up an Object (QC): 88 ADL-Treatment Eating (QC): 4 Oral Hygiene (QC): 7 Shower/Bathe Self (QC): 4 Upper Body Dressing (QC): 4 Lower Body Dressing (QC): 3 On/Off Footwear (QC): 3 Toileting Hygiene (QC): 4 Toilet Transfer (QC): 4 Assessment/Plan Assessment and Plan Assess & Plan/Chief Complaint Assessment: Right hip fracture Alcoholism s/p active withdrawal Smoker AF CAD CABG hx Post op anemia from acute blood loss requiring transfusion on 1 unit of blood 09/30/21 Constipation Plan: Monitor closely [place] DC soon O2 PT OT with rest breaks 09/30/2021: Transfuse Monitor pain Monitor O2 10/01/2021: Enema Pain med transition to PO 10/02/2021: Pain control Monitor closely 10/03/2021: Monitor hgb Pain control 10/04/2021: Monitor closely 10/05/2021: Monitor BP Fall risk (1) Coronary artery disease without angina pectoris Assessment & Plan: He is not having any angina. He reportedly had a coronary stent around August 2021. He is on clopidogrel and beta-subhash. He is not on aspirin since he takes apixaban for atrial fibrillation. Unclear why he is not on statin medication. I have added a lipid panel to previous labs. (2) Paroxysmal atrial fibrillation Assessment & Plan: He has a reported history of paroxysmal atrial fibrillation. His electrocardiogram from admission shows sinus rhythm. He is on beta-subhash for rate control and apixaban for stroke prophylaxis. There is no indication for telemetry monitoring at this point in time. (3) Primary hypertension Assessment & Plan: Blood pressure has been reasonably controlled with the current medication. (4) Mixed hyperlipidemia Assessment & Plan: He has a history of hyperlipidemia but is not currently on a statin medication. I have added a lipid panel to previous labs. (5) Acute on chronic respiratory failure with hypoxemia Assessment & Plan: Most likely due to his severe underlying chronic obstructive pulmonary disease. He should continue with oxygen. ALEXANDRA JUDGE DO Oct 05, 2021 06:08
[2021-10-05] MEDS: LORazepam 0.5 MG (ATIVAN) TABLET PO PRN (06:25)
[2021-10-05] MEDS: morphine IMMEDIATE RELEASE 15 MG TABLET PO PRN ×3 (06:25→15:31)
[2021-10-05 08:00] VITALS: BP 169/67
[2021-10-05] MEDS: FOLIC ACID 1 MG TAB PO SCH (08:47)
[2021-10-05] MEDS: DOCUSATE SODIUM 100 MG (COLACE) CAP PO SCH ×2 (08:48→21:20)
[2021-10-05] MEDS: CLOPIDOGREL 75 MG (PLAVIX) TABLET PO SCH (08:48)
[2021-10-05] MEDS: amLODIPine 5 MG (NORVASC) TAB PO SCH (08:48)
[2021-10-05] MEDS: APIXABAN 5 MG (ELIQUIS) TABLET PO SCH ×2 (08:48→21:20)
[2021-10-05] MEDS: SENNA W/DOCUSATE (SENOKOT S) TABLET PO SCH ×2 (08:48→21:35)
[2021-10-05] MEDS: guaiFENesin (MUCINEX) 600 MG TAB PO SCH ×2 (08:48→21:20)
[2021-10-05] MEDS: meTOprolol TARTRATE 25 MG (LOPRESSOR) TABLET PO SCH ×2 (08:48→21:20)
[2021-10-05] MEDS: polyethylene glycoL POWDER 17 GM (MIRALAX) PACK PO SCH ×2 (08:48→21:35)
[2021-10-05] MEDS: morphine ER 15 MG (MS CONTIN) TAB PO SCH ×2 (08:49→21:20)
--- NOTE | 2021-10-05 09:59 | Physical Therapy Daily Note ---
PT Daily Note-Current Subjective Pt in bed upon arrival. Pt agrees to PT/OT co-treat. Pt reports feeling "off" when compared to previous date. Consistently asks for a pain pill or breathing treatment. Mental Status Patient Orientation: Person, Place Attachments: Oxygen (2L), IV Transfers SCALE: Activities may be completed with or without assistive devices. 6-Nhdhpasfwa-vonaewg completes the activity by him/herself with no assistance from a helper. 5-Set-up or Clean-up Assistance-helper sets up or cleans up; patient completes activity. [place] assists only prior to or following the activity. 4-Supervision or Touching Assistance-helper provides verbal cues and/or touching/steadying and/or contact guard assistance as patient completes activity. Assistance may be provided throughout the activity or intermittently. 3-Partial/Moderate Assistance-helper does LESS THAN HALF the effort. [place] lifts, holds or supports trunk or limbs, but provides less than half the effort. 2-Substantial/Maximal Assistance-helper does MORE THAN HALF the effort. [place] lifts or holds trunk or limbs and provides more than half the effort. 2-Azrzcassj-fgofeb does ALL the effort. Patient does none of the effort to complete the activity. Or, the assistance of 2 or more helpers is required for the patient to complete the activity. If activity was not attempted, code reason: 7-Patient Refused. 9-Not Applicable-not attempted and the patient did not perform the activity before the current illness, exacerbation or injury. 10-Not Attempted due to Environmental Limitations-(lack of equipment, weather restraints, etc.). 88-Not Attempted due to Medical Conditions or Safety Concerns. Sit to Stand (QC): 4 Weight Bearing Right Lower Extremity: Right Non Weight Bearing Left Lower Extremity: Left Non Weight Bearing Gait Training Does the Patient Walk?: Yes Distance: 30', 75', 60' Walk 10 feet (QC): 4 Walk 50 ft with 2 Turns(QC): 4 Gait Assistive Device: FWW Exercises Seated Therapy Exercises: Sit to stand Treatments Supine>sit: SBA, extra time to transition R foot off side of bed. Clothing donned seated at EOB. Reminder on use of shell worker when threading BLE's into pants . Assist needed to thread LLE after several failed attempts (Pt consistently threading foot into wrong pant leg). On first stand, pt requires increased lifting assist when compared to previous sessions. Unsteady on feet, c/o dizziness. Cued to return to sitting. BP: 182/106. RN informed. After lengthy rest break. He stood a 2nd time. Improved to SBA. Pt denies dizziness and was able to pull clothing up to waist with CGA. Pt forgetful of when he took last pain pill and time of last breathing treatment. Several reminders on when he can have another treatment/pill. He often initiates several lengthy rest breaks secondary to SOA. Oxygen spot checked several times throughout activity, remains >97%. Currently on 2L. Post adls, pt ambulated 3 bouts with walker and SBA-CGA; 30, 75, and 60 feet. Cues for posture and R foot clearance as he often slides foot across floor, especially as fatigue increases. Very slow gait. Pt able to recall cues (from previous date) on keeping walker on the floor. Distance limited by c/o SOA and hip pain. BP following gait was 121/65, no c/o dizziness. RN informed. Pt returns to recliner to rest w/all needs met, call light in hand. Assessment Current Status: Fair Progress Confusion persists, VC for reminders for safety & fatigue. PT Chcf Goals Alarm Adjuster Goals PT Chcf Goals Time Frame: Oct 22, 2021 Roll Left & Right (QC): 4 Sit to Lying (QC): 4 Lying-Sitting on Side/Bed(QC): 4 Sit to Stand (QC): 4 Chair/Vrj-vi-Xumvg Xfer(QC): 4 Toilet Transfer (QC): 4 Car Transfer (QC): 4 Does the Patient Walk: Yes Walk 10 feet (QC): 4 Walk 50ft with 2 Turns (QC): 4 Walk 150 ft (QC): 3 Walking 10ft on Uneven Surface: 4 1 Step (curb) (QC): 3 4 Steps (QC): 3 12 Steps (QC): 3 Picking up an Object (QC): 4 Does the Pt use WC or Scooter?: No Wheel 50 feet with 2 turns (QC: 9 Wheel 150 feet: 9 PT Plan Problem List Problem List: Activity Tolerance, Functional Strength, Safety, Gait Treatment/Plan Treatment Plan: Continue Plan of Care Treatment Plan: Bed Mobility, Education, Functional Activity Yoanna, Functional Strength, Group Therapy, Gait, Safety, Therapeutic Exercise, Transfers Treatment Duration: Nov 05, 2021 Frequency: At least 5 of 7 days/Wk (IRF) Estimated Hrs Per Day: 1.5 hours per day Patient and/or Family Agrees t: Yes Safety Risks/Education Patient Education: Gait Training, Transfer Techniques, Correct Positioning, Safety Issues Teaching Recipient: Patient Teaching Methods: Discussion Response to Teaching: Verbalize Understanding Time/GCodes Time In: 900 Time Out: 1000 Total Billed Treatment Time: 60 Total Billed Treatment Co-treat w/OT for 60m 1, FA x2 (30m) & GT x2 (30m) JOSE DU REPRESENTATIVE Oct 05, 2021 09:59
--- NOTE | 2021-10-05 10:02 | Occupational Ther Daily Note ---
OT Current Status-Daily Note Subjective Pt reports feeling "off" when compared to previous date. Consistently asks for a pain pill or breathing treatment. Appearance Pt left sitting in recliner, all needs within reach. Mental Status/Objective Patient Orientation: Person, Place Attachments: IV, Oxygen (2L) ADL-Treatment Therapy Code Descriptions/Definitions Functional [place] Measure: 0=Not Assessed/NA 4=Minimal Assistance 1=Total Assistance 5=Supervision or Setup 2=Maximal Assistance 6=Modified [place] 3=Moderate Assistance 7=Complete IndependenceSCALE: Activities may be completed with or without assistive devices. 6-Omngjaelch-wxbihzu completes the activity by him/herself with no assistance from a helper. 5-Set-up or Clean-up Assistance-helper sets up or cleans up; patient completes activity. [place] assists only prior to or following the activity. 4-Supervision or Touching Assistance-helper provides verbal cues and/or touching/steadying and/or contact guard assistance as patient completes activity. Assistance may be provided throughout the activity or intermittently. 3-Partial/Moderate Assistance-helper does LESS THAN HALF the effort. [place] l ifts, holds or supports trunk or limbs, but provides less than half the effort. 2-Substantial/Maximal Assistance-helper does MORE THAN HALF the effort. [place] lifts or holds trunk or limbs and provides more than half the effort. 9-Enkatijak-yxtwzp does ALL the effort. Patient does none of the effort to complete the activity. Or, the assistance of 2 or more helpers is required for t he patient to complete the activity. If activity was not attempted, code reason: 7-Patient Refused. 9-Not Applicable-not attempted and the patient did not perform the activity before the current illness, exacerbation or injury. 10-Not Attempted due to Environmental Limitations-(lack of equipment, weather restraints, etc.). 88-Not Attempted due to Medical Conditions or Safety Concerns. Upper Body Dressing (QC): 4 Lower Body Dressing (QC): 3 On/Off Footwear: 3 Toileting Hygiene (QC): 4 Supine>sit: SBA, extra time to transition R foot off side of bed. Clothing donned seated at EOB. Reminder on use of formulator when threading BLE's into pants. Assist needed to thread LLE after several failed attempts (Pt consistently threading foot into wrong pant leg). On first stand, pt requires increased lifting assist when compared to previous sessions. Unsteady on feet, c/o dizziness. Cued to return to sitting. BP: 182/106. RN informed. After lengthy rest break. He stood a 2nd time. Improved to SBA. Pt denies dizziness and was able to pull clothing up to waist with CGA. Pt forgetful of when he took last pain pill and time of last breathing treatment. Several reminders on when he can have another treatment/pill. He often initiates several lengthy rest breaks secondary to SOA. Oxygen spot checked several times throughout activity, remains >97%. Currently on 2L. Post adls, pt ambulated 3 bouts with walker and SBA-CGA; 30, 75, and 60 feet. Cues for posture and R foot clearance as he often slides foot across floor, especially as fatigue increases. Very slow gait. Pt able to recall cues (from previous date) on keeping walker on the floor. Distance limited by c/o SOA and hip pain. BP following gait was 121/65, no c/o dizziness. RN informed. 2nd session: (0452-1387) Pt very drowsy, difficult to keep awake. Earlier in the day, pt requesting to shave during second session. However due to lethargy, pt not safe to shave at this time. Attempt at performing UE exercises with goal to increase strength and endurance needed for functional transfer. Pt only able to complete 2 exercises before dozing off to sleep. Activity terminated. OT brought in [facility] and educated pt on use. Further education will be needed when more alert. Education OT Patient Education: Correct positioning, Energy conservation, Modified ADL techniques, Progress toward Goal/Update tx plan, Purpose of tx/functional activities, Safety issues, Transfer techniques, W/C management Teaching Recipient: Patient, Family Teaching Methods: Demonstration, Discussion Response to Teaching: Verbalize Understanding, Return Demonstration, Reinforcement Needed OT Short Term Goals Short Term Goals Time Frame: Oct 14, 2021 Eatin Oral hygiene: 5 Toileting hygiene: 2 Shower/bathe self: 2 Upper body dressin Lower body dressin Putting on/taking off footwear: 2 OT Mcfp Goals Digester Operator Goals Time Frame: Oct 29, 2021 Eating (QC): 6 Oral Hygiene (QC): 6 Toileting Hygiene (QC): 4 Shower/Bathe Self (QC): 4 Upper Body Dressing (QC): 4 Lower Body Dressing (QC): 4 On/Off Footwear (QC): 4 1=Demonstrate adherence to instructed precautions during ADL tasks. 2=Patient will verbalize/demonstrate understanding of assistive devices/modifications for ADL. 3=Patient will improve strength/tolerance for activity to enable patient to perform ADL's. OT Education/Plan Problem List/Assessment Assessment: Decreased Activ Tolerance, Decreased Safety Aware, Decreased UE Strength, Impaired Cognition, Impaired Funct Balance, Impaired I ADL's, Impaired Self-Care Skills Discharge Recommendations Plan/Recommendations: Continue POC Treatment Plan/Plan of Care Treatment,Training & Education: Yes Patient would benefit from OT for education, treatment and training to promote independence in ADL's, mobility, safety and/or upper extremity function for ADL's. Plan of Care: ADL Retraining, Caregiver Training, Functional Mobility, Group Exercise/Act as Ind, UE Funct Exercise/Act, W/C Management Training Treatment Duration: Oct 29, 2021 Frequency: Modified Program (IRF) (24/09) Estimated Hrs Per Day: 1.5 hours per day (75-90 min/day ) Agreement: Yes Rehab Potential: Poor Time/GCodes Start Time: 09:00 (1133) Stop Time: 10:00 (1148) Total Time Billed (hr/min): 75 Billed Treatment Time 1st visit ADL x2 (35 min) FA x2 (25 min) 2nd visit FA (15 min) Kiley Pena OT Oct 05, 2021 10:02
--- NOTE | 2021-10-05 11:47 | Speech Therapy Daily Note ---
Speech Daily Progress Note Subjective Date Seen by Provider: Oct 05, 2021 Time Seen by Provider: 10:00 The patient was seated upright in his chair, awake and alert upon entrance to his room by the clinician. The patient greeted the clinician and was agreeable to participation in the cognitive linguistic treatment session. Objective Orientation exercises were attempted with the patient during today's treatment session. The patient stated he experienced a period of confusion throughout the evening, feeling it was not in the correct room or location. The patient stated he felt someone had moved all of his belongings, the white board, and his TV tray to a new location and set-up his new room to look identical to his prior room. The patient continued to look out of his window and at his surroundings u ntil "finally, it all was clear and I knew my mind was making it up." The clinician aided the patient with orientation strategies, specifically his room number and the location he would be able to locate orientation information on his white board. The patient required maximum verbal cueing for redirection and participation in orientation exercises and strategies. Assessment Assessment Current Status: Poor Progress Treatment Plan Continue Plan of Care Speech Short Term Goals Short Term Goals Short Term Goals 1. The patient will demonstrated 75% accuracy with memory exercises with mild clinician verbal and visual cueing. Time Frame-STG: One Week. Speech Mcfp Goals Mcfp Goals 1. The patient will improve his cognitive linguistic skills for safe discharge to the least restrictive environment. Time Frame: Two Weeks. Speech-Plan Treatment Plan Speech Therapy Treatment Plan: Continue Plan of Care Treatment Duration: Oct 13, 2021 Frequency: 4 times per week (Four to five times per week.) Estimated Hrs Per Day: .5 hour per day Rehab Potential: Poor Safety Risks/Education Teaching Recipient: Patient Teaching Methods: Demonstration, Discussion Response to Teaching: Reinforcement Needed Education Topics Provided: Orientation Strategies Time Speech Therapy Time In: 10:00 Speech Therapy Time Out: 10:30 Total Billed Time: 30 Billed Treatment Time ROWENA Georges ELIZABEKARLEE SMITH Oct 05, 2021 11:46
--- NOTE | 2021-10-05 15:01 | Physical Therapy Daily Note ---
PT Daily Note-Current Subjective Pt sitting in recliner upon arrival. Pt agrees to PT but reports fatigue and asking when next pain med and breathing tx could be given. Pain Location: Right Location Body Site: Hip Pain Description: Ache Comment: Reports but doesn't rate Mental Status Patient Orientation: Person, Confused, Place Attachments: Oxygen Transfers SCALE: Activities may be completed with or without assistive devices. 3-Ghbjdaotlf-zzgqlqa completes the activity by him/herself with no assistance from a helper. 5-Set-up or Clean-up Assistance-helper sets up or cleans up; patient completes activity. [place] assists only prior to or following the activity. 4-Supervision or Touching Assistance-helper provides verbal cues and/or touching/steadying and/or contact guard assistance as patient completes activity. Assistance may be provided throughout the activity or intermittently. 3-Partial/Moderate Assistance-helper does LESS THAN HALF the effort. [place] lifts, holds or supports trunk or limbs, but provides less than half the effort. 2-Substantial/Maximal Assistance-helper does MORE THAN HALF the effort. [place] lifts or holds trunk or limbs and provides more than half the effort. 8-Kbkvmbxlj-arfnlp does ALL the effort. Patient does none of the effort to com plete the activity. Or, the assistance of 2 or more helpers is required for the patient to complete the activity. If activity was not attempted, code reason: 7-Patient Refused. 9-Not Applicable-not attempted and the patient did not perform the activity before the current illness, exacerbation or injury. 10-Not Attempted due to Environmental Limitations-(lack of equipment, weather restraints, etc.). 88-Not Attempted due to Medical Conditions or Safety Concerns. Weight Bearing Right Lower Extremity: Right Non Weight Bearing Left Lower Extremity: Left Non Weight Bearing Treatments Pt declines need to use BR. SWITCH INSPECTOR assists pt to reposition to comfort as pt asked to stay up in recliner. Nurse to arrive shortly to advise about pain med. All needs mets, call light in hand. Assessment Current Status: Fair Progress Pt is anxious about pain w/movement and perceived SOA. O2 has remained in preferred levels although pt feels SOA. PT Care Home Goals [employer] Goals PT [employer] Goals Time Frame: Oct 22, 2021 Roll Left & Right (QC): 4 Sit to Lying (QC): 4 Lying-Sitting on Side/Bed(QC): 4 Sit to Stand (QC): 4 Chair/Atp-zn-Kbpyc Xfer(QC): 4 Toilet Transfer (QC): 4 Car Transfer (QC): 4 Does the Patient Walk: Yes Walk 10 feet (QC): 4 Walk 50ft with 2 Turns (QC): 4 Walk 150 ft (QC): 3 Walking 10ft on Uneven Surface: 4 1 Step (curb) (QC): 3 4 Steps (QC): 3 12 Steps (QC): 3 Picking up an Object (QC): 4 Does the Pt use WC or Scooter?: No Wheel 50 feet with 2 turns (QC: 9 Wheel 150 feet: 9 PT Plan Problem List Problem List: Activity Tolerance Treatment/Plan Treatment Plan: Continue Plan of Care Treatment Plan: Bed Mobility, Education, Functional Activity Yoanna, Functional Strength, Group Therapy, Gait, Safety, Therapeutic Exercise, Transfers Treatment Duration: Nov 05, 2021 Frequency: At least 5 of 7 days/Wk (IRF) Estimated Hrs Per Day: 1.5 hours per day Patient and/or Family Agrees t: Yes Time/GCodes Time In: 1400 Time Out: 1415 Total Billed Treatment Time: 15 Total Billed Treatment 1, FA (15m) JOSE DU PTA Oct 05, 2021 15:01
[2021-10-05 19:48] VITALS: BP 118/82
[2021-10-05] MEDS: LACTULOSE SYRUP 10GM/15ML (ENULOSE) 30ML UDC PO PRN (21:20)
[2021-10-06] MEDS: LORazepam 0.5 MG (ATIVAN) TABLET PO PRN ×2 (00:38→23:03)
[2021-10-06] MEDS: morphine IMMEDIATE RELEASE 15 MG TABLET PO PRN ×4 (00:38→23:57)
[2021-10-06] MEDS: RT-ALBUTEROL/IPRATROPIUM 3 ML (DUONEB) VIAL INH SCH ×6 (05:12→21:17)
--- NOTE | 2021-10-06 06:32 | PM&R Progress Note ---
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 Pain improved Less pain meds taken overall 10/05/2021: Doing better every day Lungs clear BM regimen successful Monitor closely 10/04/2021: Pt is doing well Hemoglobin is 9.0 Drainage from the incision is less Sodium level is 130 10/03/2021: Doing much better Lungs remain clear O2 is at 3L/min at home Labs due tomorrow Pain improved 10/02/2021: Doing better Pain is an issue Checked meds and labs 10/01/2021: Pt requiring pain medication changes Overall having no significant other issues Morphine extended release and immediate release and discontinue Oxycodone and Morphine IV Soap suds enema will be given since he hasn't had a BM for 6 days 09/30/2021: Patient settling in well Pain is improved Hypoxia noted Hgb 7.8 and dyspnea noted and cardiac dysfunction noted so will transfuse O2 maintained BM need to move Nebs ordered Review of Systems General: Fatigue, Malaise Musculoskeletal: leg pain Objective Exam Vital Signs Vital Signs Date Time Temp Pulse Resp B/P (MAP) Pulse Ox O2 Delivery O2 Flow Rate FiO2 10/07/21 02:24 95 Nasal Cannula 2.50 10/06/21 19:29 37.3 77 22 167/73 (104) Capillary Refill : General Appearance: No Apparent Distress, WD/WN, Anxious, Chronically ill HEENT: PERRL/EOMI, Normal ENT Inspection, Pharynx Normal Neck: Full Range of Motion, Normal Inspection, Non Tender, Supple, Carotid Bruit Respiratory: Chest Non Tender, Lungs Clear, No Accessory Muscle Use, No Respiratory Distress, Decreased Breath Sounds Cardiovascular: No Edema, No Gallop, No JVD, No Murmur, Normal Peripheral Pulses, Irregularly Irregular, Tachycardia Gastrointestinal: Normal Bowel Sounds, No Organomegaly, No Pulsatile Mass, Non Tender, Soft Back: Normal Inspection, No CVA Tenderness, No Vertebral Tenderness Extremity: Normal Capillary Refill, Normal Inspection, Normal Range of Motion, Non Tender, No Calf Tenderness, No Pedal Edema Neurologic/Psychiatric: Alert, No Motor/Sensory Deficits, Normal Mood/Affect, Abnormal Gait, Disoriented, Motor Weakness Skin: Normal Color, Warm/Dry Lymphatic: No Adenopathy Results/Procedures Lab Patient resulted labs reviewed. FIM Transfers Therapy Code Descriptions/Definitions Functional [place] Measure: 0=Not Assessed/NA 4=Minimal Assistance 1=Total Assistance 5=Supervision or Setup 2=Maximal Assistance 6=Modified [place] 3=Moderate Assistance 7=Complete IndependenceSCALE: Activities may be completed with or without assistive devices. 1-Oyishpdzhb-pxqfejj completes the activity by him/herself with no assistance from a helper. 5-Set-up or Clean-up Assistance-helper sets up or cleans up; patient completes activity. [place] assists only prior to or following the activity. 4-Supervision or Touching Assistance-helper provides verbal cues and/or touching/steadying and/or contact guard assistance as patient completes activity. Assistance may be provided throughout the activity or intermittently. 3-Partial/Moderate Assistance-helper does LESS THAN HALF the effort. [place] lifts, holds or supports trunk or limbs, but provides less than half the effort. 2-Substantial/Maximal Assistance-helper does MORE THAN HALF the effort. [place] lifts or holds trunk or limbs and provides more than half the effort. 7-Acdmidrkm-yecdhh does ALL the effort. Patient does none of the effort to complete the activity. Or, the assistance of 2 or more helpers is required for the patient to complete the activity. If activity was not attempted, code reason: 7-Patient Refused. 9-Not Applicable-not attempted and the patient did not perform the activity before the current illness, exacerbation or injury. 10-Not Attempted due to Environmental Limitations-(lack of equipment, weather restraints, etc.). 88-Not Attempted due to Medical Conditions or Safety Concerns. Roll Left to Right (QC): 4 Sit to Lying (QC): 3 Sit to Stand (QC): 4 Chair/Usz-gc-Lfqpo Xfer(QC): 4 Car Transfer (QC): 2 Gait Training Does the Patient Walk?: Yes Distance: 30', 75', 60' Walk 10 feet (QC): 4 Walk 50 ft with 2 Turns(QC): 4 Walk 150 ft (QC): 88 Walking 10ft/uneven surface-QC: 88 Gait Persons Needed: 1 Gait Assistive Device: FWW Wheelchair Training Does the Pt Use a Wheelchair?: Yes Wheel 50 ft with 2 turns (QC): 4 Wheel 150 ft (QC): 9 Type of Wheelchair: Manual Stair Training 1 Step (curb) (QC): 88 4 Steps (QC): 88 12 Steps (QC): 88 Balance Picking up an Object (QC): 88 ADL-Treatment Eating (QC): 4 Oral Hygiene (QC): 7 Shower/Bathe Self (QC): 4 Upper Body Dressing (QC): 4 Lower Body Dressing (QC): 3 On/Off Footwear (QC): 3 Toileting Hygiene (QC): 4 Toilet Transfer (QC): 4 Assessment/Plan Assessment and Plan Assess & Plan/Chief Complaint Assessment: Right hip fracture Alcoholism s/p active withdrawal Smoker AF CAD CABG hx Post op anemia from acute blood loss requiring transfusion on 1 unit of blood 09/30/21 Constipation Plan: Monitor closely [place] DC soon O2 PT OT with rest breaks 09/30/2021: Transfuse Monitor pain Monitor O2 10/01/2021: Enema Pain med transition to PO 10/02/2021: Pain control Monitor closely 10/03/2021: Monitor hgb Pain control 10/04/2021: Monitor closely 10/05/2021: Monitor BP Fall risk 10/06/2021: Improved status (1) Coronary artery disease without angina pectoris Assessment & Plan: He is not having any angina. He reportedly had a coronary stent around August 2021. He is on clopidogrel and beta-subhash. He is not on as pirin since he takes apixaban for atrial fibrillation. Unclear why he is not on statin medication. I have added a lipid panel to previous labs. (2) Paroxysmal atrial fibrillation Assessment & Plan: He has a reported history of paroxysmal atrial fibrillation. His electrocardiogram from admission shows sinus rhythm. He is on beta-subhash for rate control and apixaban for stroke prophylaxis. There is no indication for telemetry monitoring at this point in time. (3) Primary hypertension Assessment & Plan: Blood pressure has been reasonably controlled with the current medication. (4) Mixed hyperlipidemia Assessment & Plan: He has a history of hyperlipidemia but is not currently on a statin medication. I have added a lipid panel to previous labs. (5) Acute on chronic respiratory failure with hypoxemia Assessment & Plan: Most likely due to his severe underlying chronic obstructive pulmonary disease. He should continue with oxygen. ALEXANDRA JUDGE DO Oct 06, 2021 06:32
[2021-10-06 07:24] VITALS: BP 159/112
[2021-10-06] MEDS: morphine ER 15 MG (MS CONTIN) TAB PO SCH ×2 (08:01→19:29)
[2021-10-06] MEDS: polyethylene glycoL POWDER 17 GM (MIRALAX) PACK PO SCH ×2 (08:01→19:29)
[2021-10-06] MEDS: SENNA W/DOCUSATE (SENOKOT S) TABLET PO SCH ×2 (08:01→19:29)
[2021-10-06] MEDS: APIXABAN 5 MG (ELIQUIS) TABLET PO SCH ×2 (08:01→19:29)
[2021-10-06] MEDS: amLODIPine 5 MG (NORVASC) TAB PO SCH (08:01)
[2021-10-06] MEDS: CLOPIDOGREL 75 MG (PLAVIX) TABLET PO SCH (08:01)
[2021-10-06] MEDS: DOCUSATE SODIUM 100 MG (COLACE) CAP PO SCH ×2 (08:01→19:29)
[2021-10-06] MEDS: FOLIC ACID 1 MG TAB PO SCH (08:01)
[2021-10-06] MEDS: meTOprolol TARTRATE 25 MG (LOPRESSOR) TABLET PO SCH ×2 (08:02→19:29)
[2021-10-06] MEDS: guaiFENesin (MUCINEX) 600 MG TAB PO SCH ×2 (08:02→19:29)
[2021-10-06 08:46] VITALS: BP 159/112
--- NOTE | 2021-10-06 09:39 | Speech Therapy Daily Note ---
Speech Daily Progress Note Subjective Date Seen by Provider: Oct 06, 2021 Time Seen by Provider: 08:30 The patient was seated upright in bed, awake and alert upon entrance to his room by the clinician. The patient greeted the clinician appropriately and was agreeable to participation in the cognitive linguistic treatment session. Objective - Orientation: With maximum clinician verbal cueing, the patient used his in room white board to locate accurate orientation information. - The patient participated in memory exercises on this date. The patient was provided three words and asked to answer a question regarding the three words immediately following presentation. The patient displayed 80% accuracy with mild clinician cueing. Assessment Assessment Current Status: Fair Progress Treatment Plan Continue Plan of Care Speech Short Term Goals Short Term Goals Short Term Goals 1. The patient will demonstrated 75% accuracy with memory exercises with mild cl inician verbal and visual cueing. Time Frame-STG: One Week. Speech Power Systems Engineer Goals Mcfp Goals 1. The patient will improve his cognitive linguistic skills for safe discharge to the least restrictive environment. Time Frame: Two Weeks. Speech-Plan Treatment Plan Speech Therapy Treatment Plan: Continue Plan of Care Treatment Duration: Oct 13, 2021 Frequency: 4 times per week (Four to five times per week.) Estimated Hrs Per Day: .5 hour per day Rehab Potential: Poor Safety Risks/Education Teaching Recipient: Patient Teaching Methods: Discussion Response to Teaching: Verbalize Understanding Education Topics Provided: Memory Strategies, Orientation Strategies Time Speech Therapy Time In: 08:30 Speech Therapy Time Out: 09:00 Total Billed Time: 30 Billed Treatment Time ROWENA Georges ELIZABETH ST Oct 06, 2021 09:39
--- NOTE | 2021-10-06 10:18 | Occupational Ther Daily Note ---
OT Current Status-Daily Note Subjective Pt frequently asking for breathing treatment. With encouragement, he was agreeable to shower this date. co-treat with PT secondary to high pain levels, fall risk, poor endurance, incr eased oxygen needs, and need of 2 skilled clinicians to progress indep and safety with adls and functional mobility. Appearance Pt left sitting in recliner, all needs within reach at therapy departure. Mental Status/Objective Patient Orientation: Person, Place, Situation ADL-Treatment Therapy Code Descriptions/Definitions Functional [place] Measure: 0=Not Assessed/NA 4=Minimal Assistance 1=Total Assistance 5=Supervision or Setup 2=Maximal Assistance 6=Modified [place] 3=Moderate Assistance 7=Complete IndependenceSCALE: Activities may be completed with or without assistive devices. 2-Ywfzbormuq-akunhbk completes the activity by him/herself with no assistance from a helper. 5-Set-up or Clean-up Assistance-helper sets up or cleans up; patient completes activity. [place] assists only prior to or following the activity. 4-Supervision or Touching Assistance-helper provides verbal cues and/or touching/steadying and/or contact guard assistance as patient completes activity. Assistance may be provided throughout the activity or intermittently. 3-Partial/Moderate Assistance-helper does LESS THAN HALF the effort. [place] lifts, holds or supports trunk or limbs, but provides less than half the effort. 2-Substantial/Maximal Assistance-helper does MORE THAN HALF the effort. [place] lifts or holds trunk or limbs and provides more than half the effort. 6-[place]-giyzwe does ALL the effort. Patient does none of the effort to complete the activity. Or, the assistance of 2 or more helpers is required for the patient to complete the activity. If activity was not attempted, code reason: 7-Patient Refused. 9-Not Applicable-not attempted and the patient did not perform the activity before the current illness, exacerbation or injury. 10-Not Attempted due to Environmental Limitations-(lack of equipment, weather restraints, etc.). 88-Not Attempted due to Medical Conditions or Safety Concerns. Shower/Bathe Self (QC): 4 Upper Body Dressing (QC): 5 Lower Body Dressing (QC): 4 On/Off Footwear: 3 Toileting Hygiene (QC): 4 Toilet Transfer (QC): 4 R hip covered prior to bathing task. C/D/I post shower. Majority of activity completed in sitting. Pt stood briefly to wash tarik area/buttocks with close SBA-CGA for safety. Reminder to utilize LHS to wash below knees in order to better conserve energy and oxygen. Clothing donned seated in w/c. Extra time to thread BLE's into brief/pants but no physical assistance needed this date. Pt did require min verbal cues for improved director geothermal operations use. CGA for safety as he stood to pull clothing up to waist. Pt will initiate several lengthy rest breaks secondary to c/o SOA. Oxygen continues to remain >90% during adls. Education OT Patient Education: Correct positioning, Energy conservation, Modified ADL techniques, Progress toward Goal/Update tx plan, Purpose of tx/functional activities, Rehab process, Safety issues, Transfer techniques, Use of adapted equipment Teaching Recipient: Patient Teaching Methods: Discussion Response to Teaching: Verbalize Understanding, Return Demonstration, Reinforcement Needed OT Short Term Goals Short Term Goals Time Frame: Oct 14, 2021 Eatin Oral hygiene: 5 Toileting hygiene: 2 Shower/bathe self: 2 Upper body dressin Lower body dressin Putting on/taking off footwear: 2 OT Detention Goals Detention Goals Time Frame: Oct 29, 2021 Eating (QC): 6 Oral Hygiene (QC): 6 Toileting Hygiene (QC): 4 Shower/Bathe Self (QC): 4 Upper Body Dressing (QC): 4 Lower Body Dressing (QC): 4 On/Off Footwear (QC): 4 1=Demonstrate adherence to instructed precautions during ADL tasks. 2=Patient will verbalize/demonstrate understanding of assistive devices/modifications for ADL. 3=Patient will improve strength/tolerance for activity to enable patient to perform ADL's. OT Education/Plan Problem List/Assessment Assessment: Decreased Activ Tolerance, Decreased Safety Aware, Decreased UE Strength, Impaired Cognition, Impaired Funct Balance, Impaired I ADL's, Impaired Self-Care Skills Discharge Recommendations Plan/Recommendations: Continue POC Treatment Plan/Plan of Care Treatment,Training & Education: Yes Patient would benefit from OT for education, treatment and training to promote independence in ADL's, mobility, safety and/or upper extremity function for ADL's. Plan of Care: ADL Retraining, Caregiver Training, Functional Mobility, Group Exercise/Act as Ind, UE Funct Exercise/Act, W/C Management Training Treatment Duration: Oct 29, 2021 Frequency: Modified Program (IRF) (24/09) Estimated Hrs Per Day: 1.5 hours per day (75-90 min/day ) Agreement: Yes Rehab Potential: Poor Time/GCodes Start Time: 09:00 Stop Time: 10:15 Total Time Billed (hr/min): 75 Billed Treatment Time 1 visit ADL x5 Kiley Pena OT Oct 06, 2021 10:18
--- NOTE | 2021-10-06 11:52 | Physical Therapy Daily Note ---
PT Daily Note-Current Subjective Pt frequently asking for breathing treatment. With encouragement, he was agreeable to shower this date. co-treat with PT secondary to high pain levels, fall risk, poor endurance, increased oxygen needs, and need of 2 skilled clinicians to progress indep and safety with adls and functional mobility. Pain Location: Right, Incisional Location Body Site: Hip Pain Description: Ache Mental Status Patient Orientation: Person, Place Attachments: Oxygen (2.5L at rest & 4L during shower, returned to 2.5L at end of tx) Transfers SCALE: Activities may be completed with or without assistive devices. 8-Wrloeeigev-pixmnvn completes the activity by him/herself with no assistance from a helper. 5-Set-up or Clean-up Assistance-helper sets up or cleans up; patient completes activity. [place] assists only prior to or following the activity. 4-Supervision or Touching Assistance-helper provides verbal cues and/or touching/steadying and/or contact guard assistance as patient completes activity. Assistance may be provided throughout the activity or intermittently. 3-Partial/Moderate Assistance-helper does LESS THAN HALF the effort. [place] lifts, holds or supports trunk or limbs, but provides less than half the effort. 2-Substantial/Maximal Assistance-helper does MORE THAN HALF the effort. [place] lifts or holds trunk or limbs and provides more than half the effort. 2-Srjhibfor-xvmrxp does ALL the effort. Patient does none of the effort to complete the activity. Or, the assistance of 2 or more helpers is required for the patient to complete the activity. If activity was not attempted, code reason: 7-Patient Refused. 9-Not Applicable-not attempted and the patient did not perform the activity before the current illness, exacerbation or injury. 10-Not Attempted due to Environmental Limitations-(lack of equipment, weather restraints, etc.). 88-Not Attempted due to Medical Conditions or Safety Concerns. Lying to Sitting/Side of Bed(Q: 4 Sit to Stand (QC): 4 Toilet Transfer (QC): 4 Weight Bearing Right Lower Extremity: Right Non Weight Bearing Left Lower Extremity: Left Non Weight Bearing Gait Training Does the Patient Walk?: Yes Distance: 20' Walk 10 feet (QC): 4 Gait Persons Needed: 1 Gait Assistive Device: FWW Wheelchair Training Does the Pt Use a Wheelchair?: Yes Type of Wheelchair: Manual Treatments R hip covered prior to bathing task. C/D/I post shower. Majority of activity completed in sitting. Pt stood briefly to wash [place] area/buttocks with close SBA-CGA for safety. Reminder to utilize LHS to wash below knees in order to better conserve energy and oxygen. Clothing donned seated in w/c. Extra time to thread BLE's into brief/pants but no physical assistance needed this date. Pt did require min verbal cues for improved social work msw use. CGA for safety as he stood to pull clothing up to waist. Pt will initiate several lengthy rest breaks secondary to c/o SOA. Oxygen continues to remain >90% during adls. Pt returns to recliner to rest at end of tx. All needs met, call light in hand. Assessment Current Status: Fair Progress VC needed for safety during transfers. Pt hyper focused on breathing tx & when pain med can be given next. PT Cranberry Sorter Goals Cranberry Sorter Goals PT Cranberry Sorter Goals Time Frame: Oct 22, 2021 Roll Left & Right (QC): 4 Sit to Lying (QC): 4 Lying-Sitting on Side/Bed(QC): 4 Sit to Stand (QC): 4 Chair/Ifw-ae-Antbk Xfer(QC): 4 Toilet Transfer (QC): 4 Car Transfer (QC): 4 Does the Patient Walk: Yes Walk 10 feet (QC): 4 Walk 50ft with 2 Turns (QC): 4 Walk 150 ft (QC): 3 Walking 10ft on Uneven Surface: 4 1 Step (curb) (QC): 3 4 Steps (QC): 3 12 Steps (QC): 3 Picking up an Object (QC): 4 Does the Pt use WC or Scooter?: No Wheel 50 feet with 2 turns (QC: 9 Wheel 150 feet: 9 PT Plan Problem List Problem List: Activity Tolerance Treatment/Plan Treatment Plan: Continue Plan of Care Treatment Plan: Bed Mobility, Education, Functional Activity Yoanna, Functional Strength, Group Therapy, Gait, Safety, Therapeutic Exercise, Transfers Treatment Duration: Nov 05, 2021 Frequency: At least 5 of 7 days/Wk (IRF) Estimated Hrs Per Day: 1.5 hours per day Patient and/or Family Agrees t: Yes Safety Risks/Education Patient Education: Transfer Techniques, Correct Positioning Teaching Recipient: Patient Teaching Methods: Discussion Response to Teaching: Reinforcement Needed Time/GCodes Time In: 900 Time Out: 1015 Total Billed Treatment Time: 75 Total Billed Treatment Co-treat w/OT for 75m 1, FA x5 (75m) JOSE DU EDUCATION DIRECTOR Oct 06, 2021 11:52
[2021-10-06 19:29] VITALS: BP 167/73
[2021-10-07] MEDS: RT-ALBUTEROL/IPRATROPIUM 3 ML (DUONEB) VIAL INH SCH ×6 (02:24→21:55)
[2021-10-07] MEDS: morphine IMMEDIATE RELEASE 15 MG TABLET PO PRN ×3 (05:35→18:42)
--- NOTE | 2021-10-07 05:54 | PM&R Progress Note ---
Subjective HPI/CC On Admission Date Seen by Provider: Oct 07, 2021 Time Seen by Provider: 12:00 Subjective/Events-last exam 10/07/2021: Doing much better Constantly complaining of pain which is out of proportion to his injury now a week out of surgery Maintained on oxygen 10/06/2021: Doing better 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 Pain improved Less pain meds taken overall 10/05/2021: Doing better every day Lungs clear BM regimen successful Monitor closely 10/04/2021: Pt is doing well Hemoglobin is 9.0 Drainage from the incision is less Sodium level is 130 10/03/2021: Doing much better Lungs remain clear O2 is at 3L/min at home Labs due tomorrow Pain improved 10/02/2021: Doing better Pain is an issue Checked meds and labs 10/01/2021: Pt requiring pain medication changes Overall having no significant other issues Morphine extended release and immediate release and discontinue Oxycodone and Morphine IV Soap suds enema will be given since he hasn't had a BM for 6 days 09/30/2021: Patient settling in well Pain is improved Hypoxia noted Hgb 7.8 and dyspnea noted and cardiac dysfunction noted so will transfuse O2 maintained BM need to move Nebs ordered Review of Systems General: Fatigue, Malaise Pulmonary: Dyspnea, Cough Musculoskeletal: leg pain Objective Exam Vital Signs Vital Signs Date Time Temp Pulse Resp B/P (MAP) Pulse Ox O2 Delivery O2 Flow Rate FiO2 10/07/21 19:41 36.3 77 16 166/80 (108) 100 Nasal Cannula 2.50 Capillary Refill : General Appearance: No Apparent Distress, WD/WN, Anxious, Chronically ill HEENT: PERRL/EOMI, Normal ENT Inspection, Pharynx Normal Neck: Full Range of Motion, Normal Inspection, Non Tender, Supple, Carotid Bruit Respiratory: Chest Non Tender, Lungs Clear, No Accessory Muscle Use, No Respiratory Distress, Decreased Breath Sounds Cardiovascular: No Edema, No Gallop, No JVD, No Murmur, Normal Peripheral Pulses, Irregularly Irregular, Tachycardia Gastrointestinal: Normal Bowel Sounds, No Organomegaly, No Pulsatile Mass, Non Tender, Soft Back: Normal Inspection, No CVA Tenderness, No Vertebral Tenderness Extremity: Normal Capillary Refill, Normal Inspection, Normal Range of Motion, Non Tender, No Calf Tenderness, No Pedal Edema Neurologic/Psychiatric: Alert, No Motor/Sensory Deficits, Normal Mood/Affect, Abnormal Gait, Disoriented, Motor Weakness Skin: Normal Color, Warm/Dry Lymphatic: No Adenopathy Results/Procedures Lab Laboratory Tests 10/07/21 06:25 Patient resulted labs reviewed. FIM Transfers Therapy Code Descriptions/Definitions Functional [place] Measure: 0=Not Assessed/NA 4=Minimal Assistance 1=Total Assistance 5=Supervision or Setup 2=Maximal Assistance 6=Modified [place] 3=Moderate Assistance 7=Complete IndependenceSCALE: Activities may be completed with or without assistive devices. 4-Vyozvvwkho-tavbymf completes the activity by him/herself with no assistance from a helper. 5-Set-up or Clean-up Assistance-helper sets up or cleans up; patient completes activity. [place] assists only prior to or following the activity. 4-Supervision or Touching Assistance-helper provides verbal cues and/or touching/steadying and/or contact guard assistance as patient completes activity. Assistance may be provided throughout the activity or intermittently. 3-Partial/Moderate Assistance-helper does LESS THAN HALF the effort. [place] lifts, holds or supports trunk or limbs, but provides less than half the effort. 2-Substantial/Maximal Assistance-helper does MORE THAN HALF the effort. [place] lifts or holds trunk or limbs and provides more than half the effort. 3-Pjjqsjomr-dclshh does ALL the effort. Patient does none of the effort to complete the activity. Or, the assistance of 2 or more helpers is required for the patient to complete the activity. If activity was not attempted, code reason: 7-Patient Refused. 9-Not Applicable-not attempted and the patient did not perform the activity before the current illness, exacerbation or injury. 10-Not Attempted due to Environmental Limitations-(lack of equipment, weather restraints, etc.). 88-Not Attempted due to Medical Conditions or Safety Concerns. Roll Left to Right (QC): 4 Sit to Lying (QC): 3 Sit to Stand (QC): 4 Chair/Vvt-ez-Tlcgm Xfer(QC): 4 Car Transfer (QC): 2 Gait Training Does the Patient Walk?: Yes Distance: 20' Walk 10 feet (QC): 4 Walk 50 ft with 2 Turns(QC): 4 Walk 150 ft (QC): 88 Walking 10ft/uneven surface-QC: 88 Gait Persons Needed: 1 Gait Assistive Device: FWW Wheelchair Training Does the Pt Use a Wheelchair?: Yes Wheel 50 ft with 2 turns (QC): 4 Wheel 150 ft (QC): 9 Type of Wheelchair: Manual Stair Training 1 Step (curb) (QC): 88 4 Steps (QC): 88 12 Steps (QC): 88 Balance Picking up an Object (QC): 88 ADL-Treatment Eating (QC): 4 Oral Hygiene (QC): 7 Shower/Bathe Self (QC): 4 Upper Body Dressing (QC): 5 Lower Body Dressing (QC): 4 On/Off Footwear (QC): 3 Toileting Hygiene (QC): 4 Toilet Transfer (QC): 4 Assessment/Plan Assessment and Plan Assess & Plan/Chief Complaint Assessment: Right hip fracture Alcoholism s/p active withdrawal Smoker AF CAD CABG hx Post op anemia from acute blood loss requiring transfusion on 1 unit of blood 09/30/21 Constipation Plan: Monitor closely [place] DC soon O2 PT OT with rest breaks 09/30/2021: Transfuse Monitor pain Monitor O2 10/01/2021: Enema Pain med transition to PO 10/02/2021: Pain control Monitor closely 10/03/2021: Monitor hgb Pain control 10/04/2021: Monitor closely 10/05/2021: Monitor BP Fall risk 10/06/2021: Improved status 10/07/2021: Improved status (1) Coronary artery disease without angina pectoris Assessment & Plan: He is not having any angina. He reportedly had a coronary stent around August 2021. He is on clopidogrel and beta-subhash. He is not on aspirin since he takes apixaban for atrial fibrillation. Unclear why he is not on statin medication. I have added a lipid panel to previous labs. (2) Paroxysmal atrial fibrillation Assessment & Plan: He has a reported history of paroxysmal atrial fibrillation. His electrocardiogram from admission shows sinus rhythm. He is on beta-subhash for rate control and apixaban for stroke prophylaxis. There is no indication for telemetry monitoring at this point in time. (3) Primary hypertension Assessment & Plan: Blood pressure has been reasonably controlled with the current medication. (4) Mixed hyperlipidemia Assessment & Plan: He has a history of hyperlipidemia but is not currently on a statin medication. I have added a lipid panel to previous labs. (5) Acute on chronic respiratory failure with hypoxemia Assessment & Plan: Most likely due to his severe underlying chronic obstructive pulmonary disease. He should continue with oxygen. ALEXANDRA JUDGE DO Oct 07, 2021 05:54
[2021-10-07 06:40] LABS: BASOPHILS # (AUTO) 0.1 10^3/uL (0.0-0.1); BASOPHILS % (AUTO) 1 % (0-10); EOSINOPHILS # (AUTO) 0.2 10^3/uL (0.0-0.3); EOSINOPHILS % (AUTO) 2 % (0-10); HEMATOCRIT 28 % (40-54); LYMPHOCYTES # (AUTO) 1.4 10^3/uL (1.0-4.0); LYMPHOCYTES % (AUTO) 13 % (12-44); MEAN CORPUSCULAR HEMOGLOBIN 34 pg (25-34); MEAN CORPUSCULAR HGB CONC 32 g/dL (32-36); MEAN CORPUSCULAR VOLUME 105 fL (80-99); MEAN PLATELET VOLUME 8.6 fL (9.0-12.2); MONOCYTES # (AUTO) 1.1 10^3/uL (0.0-1.0); MONOCYTES % (AUTO) 10 % (0-12); NEUTROPHILS # (AUTO) 7.9 10^3/uL (1.8-7.8); NEUTROPHILS % (AUTO) 73 % (42-75); PLATELET COUNT 417 10^3/uL (130-400); WHITE BLOOD COUNT 10.8 10^3/uL (4.3-11.0)
[2021-10-07 06:53] LABS: ALBUMIN 3.1 GM/DL (3.2-4.5); POTASSIUM 3.9 MMOL/L (3.6-5.0)
[2021-10-07 06:54] LABS: CALCIUM 8.9 MG/DL (8.5-10.1)
[2021-10-07 06:57] LABS: BILIRUBIN,TOTAL 1.3 MG/DL (0.1-1.0)
[2021-10-07 06:59] LABS: CREATININE SERUM 0.68 MG/DL (0.60-1.30)
[2021-10-07 07:33] VITALS: BP 143/81
[2021-10-07] MEDS: meTOprolol TARTRATE 25 MG (LOPRESSOR) TABLET PO SCH ×2 (07:58→20:41)
[2021-10-07] MEDS: SENNA W/DOCUSATE (SENOKOT S) TABLET PO SCH ×2 (07:58→20:41)
[2021-10-07] MEDS: morphine ER 15 MG (MS CONTIN) TAB PO SCH ×2 (07:59→20:41)
[2021-10-07] MEDS: CLOPIDOGREL 75 MG (PLAVIX) TABLET PO SCH (07:59)
[2021-10-07] MEDS: guaiFENesin (MUCINEX) 600 MG TAB PO SCH ×2 (07:59→20:40)
[2021-10-07] MEDS: amLODIPine 5 MG (NORVASC) TAB PO SCH (07:59)
[2021-10-07] MEDS: FOLIC ACID 1 MG TAB PO SCH (07:59)
[2021-10-07] MEDS: APIXABAN 5 MG (ELIQUIS) TABLET PO SCH ×2 (07:59→20:41)
[2021-10-07] MEDS: DOCUSATE SODIUM 100 MG (COLACE) CAP PO SCH ×2 (07:59→20:41)
[2021-10-07] MEDS: polyethylene glycoL POWDER 17 GM (MIRALAX) PACK PO SCH ×2 (08:00→20:42)
--- NOTE | 2021-10-07 08:57 | Physical Therapy Daily Note ---
PT Daily Note-Current Subjective Patient in bed pre tx, agrees to PT, has 7/10 pain in right leg, states he just took pain meds. Will be co-treating with OT due to poor patient mobility, strength, endurance, severe debility, coordinate UE and LE during activity, safety and reduce risk of falls. Appearance Patient in recliner post tx with nurse call, phone, tray, chair alarm on. Mental Status Patient Orientation: Person, Place, Situation Attachments: Oxygen Transfers SCALE: Activities may be completed with or without assistive devices. 3-Dpelgzkpyv-blvtwlm completes the activity by him/herself with no assistance from a helper. 5-Set-up or Clean-up Assistance-helper sets up or cleans up; patient completes activity. [place] assists only prior to or following the activity. 4-Supervision or Touching Assistance-helper provides verbal cues and/or touching/steadying and/or contact guard assistance as patient completes activity. Assistance may be provided throughout the activity or intermittently. 3-Partial/Moderate Assistance-helper does LESS THAN HALF the effort. [place] lifts, holds or supports trunk or limbs, but provides less than half the effort. 2-Substantial/Maximal Assistance-helper does MORE THAN HALF the effort. [place] lifts or holds trunk or limbs and provides more than half the effort. 4-Veanpdkkn-vhsvgj does ALL the effort. Patient does none of the effort to complete the activity. Or, the assistance of 2 or more helpers is required for the patient to complete the activity. If activity was not attempted, code reason: 7-Patient Refused. 9-Not Applicable-not attempted and the patient did not perform the activity before the current illness, exacerbation or injury. 10-Not Attempted due to Environmental Limitations-(lack of equipment, weather restraints, etc.). 88-Not Attempted due to Medical Conditions or Safety Concerns. Roll Left & Right (QC): 4 Lying to Sitting/Side of Bed(Q: 4 Sit to Stand (QC): 4 Chair/Zcv-ea-Sgflq Xfer(QC): 4 Patient sits to the side of the bed, changes shirt, gets off shorts most of the way, stands and pushes them down, sits and uses the urinal, takes shorts off all the way and gets new ones on. Stands again and pulls up shorts and transfers to . Patient needs many rest breaks due to fatigue and SOB. Patient states multiple times that he needs a breathing tx but has already had one. Weight Bearing Right Lower Extremity: Right Non Weight Bearing Left Lower Extremity: Left Non Weight Bearing Gait Training Distance: 80'x3 Walk 10 feet (QC): 4 Walk 50 ft with 2 Turns(QC): 4 Gait Assistive Device: FWW WC follow, very slow, needs long rest breaks between Wheelchair Training Does the Pt Use a Wheelchair?: Yes Wheel 50 ft with 2 turns (QC): 4 Wheel 150 ft (QC): 4 Type of Wheelchair: Manual slow, needs rest breaks Treatments PT performed bed mobility and transfers, ambulation, WC mobility, standing and safety during dressing, OT performed dressing, UE positioning and safety during activity. Assessment Current Status: Fair Progress Patient is making slow progress with functional mobility but needs many long rest breaks due to fatigue and SOB. PT Snf Goals Snf Goals PT Tank Car Loader Goals Time Frame: Oct 22, 2021 Roll Left & Right (QC): 4 Sit to Lying (QC): 4 Lying-Sitting on Side/Bed(QC): 4 Sit to Stand (QC): 4 Chair/Dsr-jv-Lrcfn Xfer(QC): 4 Toilet Transfer (QC): 4 Car Transfer (QC): 4 Does the Patient Walk: Yes Walk 10 feet (QC): 4 Walk 50ft with 2 Turns (QC): 4 Walk 150 ft (QC): 3 Walking 10ft on Uneven Surface: 4 1 Step (curb) (QC): 3 4 Steps (QC): 3 12 Steps (QC): 3 Picking up an Object (QC): 4 Does the Pt use WC or Scooter?: No Wheel 50 feet with 2 turns (QC: 9 Wheel 150 feet: 9 PT Plan Problem List Problem List: Activity Tolerance, Functional Strength, Safety, Balance, Gait, Transfer, Bed Mobility, ROM Treatment/Plan Treatment Plan: Continue Plan of Care Treatment Plan: Bed Mobility, Education, Functional Activity Yoanna, Functional Strength, Group Therapy, Gait, Safety, Therapeutic Exercise, Transfers Treatment Duration: Nov 05, 2021 Frequency: At least 5 of 7 days/Wk (IRF) Estimated Hrs Per Day: 1.5 hours per day Patient and/or Family Agrees t: Yes Safety Risks/Education Patient Education: Gait Training, Transfer Techniques, Correct Positioning, W/C Management, Safety Issues Teaching Recipient: Patient Teaching Methods: Demonstration, Discussion Response to Teaching: Reinforcement Needed Time/GCodes Time In: 0800 Time Out: 0900 Total Billed Treatment Time: 60 Total Billed Treatment 1 visit FA 60' co-treated for 60' KEN TOLENTINO PT Oct 07, 2021 08:57
--- NOTE | 2021-10-07 08:57 | Occupational Ther Daily Note ---
OT Current Status-Daily Note Subjective Pt frequently asking for breathing treatments, despite already receiving one at 0530. Unable to recall time of last treatment/pain pill. co-treat with PT for part of treatment ([id number]) secondary to high pain levels, fall risk, poor endurance, increased oxygen needs, and need of 2 skilled clinicians to progress indep and safety with adls and functional mobility. Appearance Pt left sitting in recliner, all needs within reach at therapy departure. Mental Status/Objective Patient Orientation: Person, Place, Situation Attachments: IV, Oxygen (2L) ADL-Treatment Therapy Code Descriptions/Definitions Functional [place] Measure: 0=Not Assessed/NA 4=Minimal Assistance 1=Total Assistance 5=Supervision or Setup 2=Maximal Assistance 6=Modified [place] 3=Moderate Assistance 7=Complete IndependenceSCALE: Activities may be completed with or without assistive devices. 6-Lyskxzhcvw-onfaqgi completes the activity by him/herself with no assistance from a helper. 5-Set-up or Clean-up Assistance-helper sets up or cleans up; patient completes activity. [place] assists only prior to or following the activity. 4-Supervision or Touching Assistance-helper provides verbal cues and/or touching/steadying and/or contact guard assistance as patient completes activit y. Assistance may be provided throughout the activity or intermittently. 3-Partial/Moderate Assistance-helper does LESS THAN HALF the effort. [place] lifts, holds or supports trunk or limbs, but provides less than half the effort. 2-Substantial/Maximal Assistance-helper does MORE THAN HALF the effort. [place] lifts or holds trunk or limbs and provides more than half the effort. 1-Recfjozjp-xcskkz does ALL the effort. Patient does none of the effort to complete the activity. Or, the assistance of 2 or more helpers is required for the patient to complete the activity. If activity was not attempted, code reason: 7-Patient Refused. 9-Not Applicable-not attempted and the patient did not perform the activity before the current illness, exacerbation or injury. 10-Not Attempted due to Environmental Limitations-(lack of equipment, weather restraints, etc.). 88-Not Attempted due to Medical Conditions or Safety Concerns. Pt reclined in bed eating breakfast at OT arrival. Education on sitting more up right or in a chair while eating. Pt reports small amount of urine incontinence while transferring to side of bed. Clothing doffed and partial sponge bath completed with set up. Pt washed upper body and tarik area only, no physical assistance. Extra time to thread BLE's into brief/pants with use of terra cotta mold maker but no physical assistance or cues needed this date. Close supervision for safety as he stood to pull clothing up to waist. Pt will initiate several lengthy rest breaks secondary to c/o SOA with exertion. Other Treatment Pt ambulated 80 feet x3 with use of walker and SBA. Initially, he requires reminders on keeping walker on the floor; good follow through. Cues for upright posture and taking slightly bigger steps. Very slow but steady gait. Pt with audible labored breathing with all activity. Very lengthy seated rest breaks after each bout. Education OT Patient Education: Correct positioning, Energy conservation, Modified ADL techniques, Progress toward Goal/Update tx plan, Purpose of tx/functional activities, Safety issues, Transfer techniques, W/C management Teaching Recipient: Patient Teaching Methods: Demonstration, Discussion Response to Teaching: Verbalize Understanding, Return Demonstration, Reinforcement Needed OT Short Term Goals Short Term Goals Time Frame: Oct 14, 2021 Eatin Oral hygiene: 5 Toileting hygiene: 2 Shower/bathe self: 2 Upper body dressin Lower body dressin Putting on/taking off footwear: 2 OT Mcfp Goals Mcfp Goals Time Frame: Oct 29, 2021 Eating (QC): 6 Oral Hygiene (QC): 6 Toileting Hygiene (QC): 4 Shower/Bathe Self (QC): 4 Upper Body Dressing (QC): 4 Lower Body Dressing (QC): 4 On/Off Footwear (QC): 4 1=Demonstrate adherence to instructed precautions during ADL tasks. 2=Patient will verbalize/demonstrate understanding of assistive devices/modifications for ADL. 3=Patient will improve strength/tolerance for activity to enable patient to perform ADL's. OT Education/Plan Problem List/Assessment Assessment: Decreased Activ Tolerance, Decreased Safety Aware, Decreased UE Strength, Impaired Cognition, Impaired Funct Balance, Impaired I ADL's, Impaired Self-Care Skills Discharge Recommendations Plan/Recommendations: Continue POC Treatment Plan/Plan of Care Treatment,Training & Education: Yes Patient would benefit from OT for education, treatment and training to promote independence in ADL's, mobility, safety and/or upper extremity function for ADL's. Plan of Care: ADL Retraining, Caregiver Training, Functional Mobility, Group Exercise/Act as Ind, UE Funct Exercise/Act, W/C Management Training Treatment Duration: Oct 29, 2021 Frequency: Modified Program (IRF) (24/09) Estimated Hrs Per Day: 1.5 hours per day (75-90 min/day ) Agreement: Yes Rehab Potential: Poor Time/GCodes Start Time: 07:30 Stop Time: 09:00 Total Time Billed (hr/min): 90 Billed Treatment Time 1 visit ADL x4 (60 min) FA x 2 (30 min) Kiley Pena OT Oct 07, 2021 08:57
--- NOTE | 2021-10-07 10:06 | Speech Therapy Daily Note ---
Speech Daily Progress Note Subjective Date Seen by Provider: Oct 07, 2021 Time Seen by Provider: 09:00 The patient was seated upright in his recliner upon entrance to his room by the clinician. The patient greeted the clinician and was agreeable to participation in the cognitive linguistic treatment session. Objective Following a discussion with physical therapy on the prior date, it appears the patient continuously perseverates on the timing and necessity of his pain medication and breathing treatments. At times, the patient has stated he will not participate in specific activities if the above are not promptly provided. To aid in the redirection and focus of the patient, the clinician attempted to review the medications and internal memory strategies to aid the patient in appropriate recall of each item. The medications were discussed with the RN, who provided clarity for the clinician to timing and use of each medicine. In the RN's experience, placing information on the patient's white board regarding medication may increased his perseveration. The clinician agrees with the RN with this finding. Additionally, the clinician continues to work with the patient towards identification of orientation information on the white board and has been unsuccessful, therefore, placing medication information on the white board may not be the most appropriate method. The clinician discussed the timing of each medication and the rationale for the intervals to improve patient safety. The clinician discussed internal memory strategies to independently track medication. The patient verbalized comprehension, however, full understanding remains questionable. Assessment Assessment Current Status: Fair Progress Treatment Plan Continue Plan of Care Speech Short Term Goals Short Term Goals Short Term Goals 1. The patient will demonstrated 75% accuracy with memory exercises with mild clinician verbal and visual cueing. Time Frame-STG: One Week. Speech Detention Goals Band Saw Operator Goals 1. The patient will improve his cognitive linguistic skills for safe discharge to the least restrictive environment. Time Frame: Two Weeks. Speech-Plan Treatment Plan Speech Therapy Treatment Plan: Continue Plan of Care Treatment Duration: Oct 13, 2021 Frequency: 4 times per week (Four to five times per week.) Estimated Hrs Per Day: .5 hour per day Rehab Potential: Poor Safety Risks/Education Teaching Recipient: Patient Teaching Methods: Discussion Response to Teaching: Reinforcement Needed Education Topics Provided: Internal Memory Strategies Time Speech Therapy Time In: 09:00 Speech Therapy Time Out: 09:30 Total Billed Time: 30 Billed Treatment Time 1ROWENA [facility] Oct 07, 2021 10:06
[2021-10-07] MEDS: LORazepam 0.5 MG (ATIVAN) TABLET PO PRN (17:56)
[2021-10-07 19:41] VITALS: BP 166/80
[2021-10-08] MEDS: morphine IMMEDIATE RELEASE 15 MG TABLET PO PRN ×5 (00:27→18:00)
[2021-10-08] MEDS: LORazepam 0.5 MG (ATIVAN) TABLET PO PRN (00:27)
[2021-10-08] MEDS: RT-ALBUTEROL/IPRATROPIUM 3 ML (DUONEB) VIAL INH SCH ×7 (02:32→21:27)
--- NOTE | 2021-10-08 05:00 | PM&R Progress Note ---
Subjective HPI/CC On Admission Date Seen by Provider: Oct 08, 2021 Subjective/Events-last exam 10/08/2021: Patient doing well No concerns at this point Sleeping well at night 10/07/2021: Doing much better Constantly complaining of pain which is out of proportion to his injury now a week out of surgery Maintained on oxygen 10/06/2021: Doing better 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 Pain improved Less pain meds taken overall 10/05/2021: Doing better every day Lungs clear BM regimen successful Monitor closely 10/04/2021: Pt is doing well Hemoglobin is 9.0 Drainage from the incision is less Sodium level is 130 10/03/2021: Doing much better Lungs remain clear O2 is at 3L/min at home Labs due tomorrow Pain improved 10/02/2021: Doing better Pain is an issue Checked meds and labs 10/01/2021: Pt requiring pain medication changes Overall having no significant other issues Morphine extended release and immediate release and discontinue Oxycodone and Morphine IV Soap suds enema will be given since he hasn't had a BM for 6 days 09/30/2021: Patient settling in well Pain is improved Hypoxia noted Hgb 7.8 and dyspnea noted and cardiac dysfunction noted so will transfuse O2 maintained BM need to move Nebs ordered Review of Systems General: Fatigue, Malaise Objective Exam Vital Signs Vital Signs Date Time Temp Pulse Resp B/P (MAP) Pulse Ox O2 Delivery O2 Flow Rate FiO2 10/08/21 19:27 36.7 83 18 112/63 (79) 99 Nasal Cannula 3.00 Capillary Refill : General Appearance: No Apparent Distress, WD/WN, Anxious, Chronically ill HEENT: PERRL/EOMI, Normal ENT Inspection, Pharynx Normal Neck: Full Range of Motion, Normal Inspection, Non Tender, Supple, Carotid Bruit Respiratory: Chest Non Tender, Lungs Clear, No Accessory Muscle Use, No Respiratory Distress, Decreased Breath Sounds Cardiovascular: No Edema, No Gallop, No JVD, No Murmur, Normal Peripheral Pulses, Irregularly Irregular, Tachycardia Gastrointestinal: Normal Bowel Sounds, No Organomegaly, No Pulsatile Mass, Non Tender, Soft Back: Normal Inspection, No CVA Tenderness, No Vertebral Tenderness Extremity: Normal Capillary Refill, Normal Inspection, Normal Range of Motion, Non Tender, No Calf Tenderness, No Pedal Edema Neurologic/Psychiatric: Alert, No Motor/Sensory Deficits, Normal Mood/Affect, Abnormal Gait, Disoriented, Motor Weakness Skin: Normal Color, Warm/Dry Lymphatic: No Adenopathy Results/Procedures Lab Patient resulted labs reviewed. FIM Transfers Therapy Code Descriptions/Definitions Functional [place] Measure: 0=Not Assessed/NA 4=Minimal Assistance 1=Total Assistance 5=Supervision or Setup 2=Maximal Assistance 6=Modified [place] 3=Moderate Assistance 7=Complete IndependenceSCALE: Activities may be completed with or without assistive devices. 3-Dfanpmwatb-nplckzl completes the activity by him/herself with no assistance from a helper. 5-Set-up or Clean-up Assistance-helper sets up or cleans up; patient completes activity. [place] assists only prior to or following the activity. 4-Supervision or Touching Assistance-helper provides verbal cues and/or touching/steadying and/or contact guard assistance as patient completes activity. Assistance may be provided throughout the activity or intermittently. 3-Partial/Moderate Assistance-helper does LESS THAN HALF the effort. [place] lifts, holds or supports trunk or limbs, but provides less than half the effort. 2-Substantial/Maximal Assistance-helper does MORE THAN HALF the effort. [place] lifts or holds trunk or limbs and provides more than half the effort. 8-Vpgduyqpe-yjtdak does ALL the effort. Patient does none of the effort to complete the activity. Or, the assistance of 2 or more helpers is required for the patient to complete the activity. If activity was not attempted, code reason: 7-Patient Refused. 9-Not Applicable-not attempted and the patient did not perform the activity before the current illness, exacerbation or injury. 10-Not Attempted due to Environmental Limitations-(lack of equipment, weather restraints, etc.). 88-Not Attempted due to Medical Conditions or Safety Concerns. Roll Left to Right (QC): 4 Sit to Lying (QC): 3 Sit to Stand (QC): 4 Chair/Ntp-ce-Oqjzv Xfer(QC): 4 Car Transfer (QC): 2 Gait Training Does the Patient Walk?: Yes Distance: 80'x3 Walk 10 feet (QC): 4 Walk 50 ft with 2 Turns(QC): 4 Walk 150 ft (QC): 88 Walking 10ft/uneven surface-QC: 88 Gait Persons Needed: 1 Gait Assistive Device: FWW Wheelchair Training Does the Pt Use a Wheelchair?: Yes Wheel 50 ft with 2 turns (QC): 4 Wheel 150 ft (QC): 4 Type of Wheelchair: Manual Stair Training 1 Step (curb) (QC): 88 4 Steps (QC): 88 12 Steps (QC): 88 Balance Picking up an Object (QC): 88 ADL-Treatment Eating (QC): 4 Oral Hygiene (QC): 7 Shower/Bathe Self (QC): 4 Upper Body Dressing (QC): 5 Lower Body Dressing (QC): 4 On/Off Footwear (QC): 3 Toileting Hygiene (QC): 4 Toilet Transfer (QC): 4 Assessment/Plan Assessment and Plan Assess & Plan/Chief Complaint Assessment: Right hip fracture Alcoholism s/p active withdrawal Smoker AF CAD CABG hx Post op anemia from acute blood loss requiring transfusion on 1 unit of blood 09/30/21 Constipation Plan: Monitor closely [place] DC soon O2 PT OT with rest breaks 09/30/2021: Transfuse Monitor pain Monitor O2 10/01/2021: Enema Pain med transition to PO 10/02/2021: Pain control Monitor closely 10/03/2021: Monitor hgb Pain control 10/04/2021: Monitor closely 10/05/2021: Monitor BP Fall risk 10/06/2021: Improved status 10/07/2021: Improved status 10/08/2021: Pain control (1) Coronary artery disease without angina pectoris Assessment & Plan: He is not having any angina. He reportedly had a coronary stent around August 2021. He is on clopidogrel and beta-subhash. He is not on aspirin since he takes apixaban for atrial fibrillation. Unclear why he is not on statin medication. I have added a lipid panel to previous labs. (2) Paroxysmal atrial fibrillation Assessment & Plan: He has a reported history of paroxysmal atrial fibrillation. His electrocardiogram from admission shows sinus rhythm. He is on beta-subhash for rate control and apixaban for stroke prophylaxis. There is no indication for telemetry monitoring at this point in time. (3) Primary hypertension Assessment & Plan: Blood pressure has been reasonably controlled with the current medication. (4) Mixed hyperlipidemia Assessment & Plan: He has a history of hyperlipidemia but is not currently on a statin medication. I have added a lipid panel to previous labs. (5) Acute on chronic respiratory failure with hypoxemia Assessment & Plan: Most likely due to his severe underlying chronic obstructive pulmonary disease. He should continue with oxygen. ALEXANDRA JUDGE DO Oct 08, 2021 05:00
[2021-10-08 07:39] VITALS: BP 141/80
[2021-10-08] MEDS: APIXABAN 5 MG (ELIQUIS) TABLET PO SCH ×2 (09:34→20:14)
[2021-10-08] MEDS: guaiFENesin (MUCINEX) 600 MG TAB PO SCH ×2 (09:34→20:14)
[2021-10-08] MEDS: amLODIPine 5 MG (NORVASC) TAB PO SCH (09:34)
[2021-10-08] MEDS: morphine ER 15 MG (MS CONTIN) TAB PO SCH ×2 (09:34→20:14)
[2021-10-08] MEDS: SENNA W/DOCUSATE (SENOKOT S) TABLET PO SCH ×2 (09:34→20:14)
[2021-10-08] MEDS: DOCUSATE SODIUM 100 MG (COLACE) CAP PO SCH ×2 (09:34→20:14)
[2021-10-08] MEDS: meTOprolol TARTRATE 25 MG (LOPRESSOR) TABLET PO SCH ×2 (09:34→20:14)
[2021-10-08] MEDS: FOLIC ACID 1 MG TAB PO SCH (09:34)
[2021-10-08] MEDS: polyethylene glycoL POWDER 17 GM (MIRALAX) PACK PO SCH ×2 (09:35→21:00)
--- NOTE | 2021-10-08 10:28 | Occupational Ther Daily Note ---
OT Current Status-Daily Note Subjective OT initially in room earlier in the morning. Pt refused to eat breakfast or start treatment until breathing treatment was given. OT informed RN. OT came back later in morning, ~ 15 minutes after breathing treatment was given. Co-treat with PT secondary to poor endurance, high pain levels, and need of 2 skilled clinicians to progress indep and safety with adls and functional mobility. Appearance Pt left sitting in recliner at therapy departure, all needs within reach. Mental Status/Objective Patient Orientation: Person, Place, Situation Attachments: IV, Oxygen ADL-Treatment Therapy Code Descriptions/Definitions Functional [place] Measure: 0=Not Assessed/NA 4=Minimal Assistance 1=Total Assistance 5=Supervision or Setup 2=Maximal Assistance 6=Modified [place] 3=Moderate Assistance 7=Complete IndependenceSCALE: Activities may be completed with or without assistive devices. 7-Znylqdocez-tlbbjhs completes the activity by him/herself with no assistance from a helper. 5-Set-up or Clean-up Assistance-helper sets up or cleans up; patient completes activity. [place] assists only prior to or following the activity. 4-Supervision or Touching Assistance-helper provides verbal cues and/or touching/steadying and/or contact guard assistance as patient completes activity. Assistance may be provided throughout the activity or intermittently. 3-Partial/Moderate Assistance-helper does LESS THAN HALF the effort. [place] lifts, holds or supports trunk or limbs, but provides less than half the effort. 2-Substantial/Maximal Assistance-helper does MORE THAN HALF the effort. [place] lifts or holds trunk or limbs and provides more than half the effort. 1-Smdgrjluh-szkftt does ALL the effort. Patient does none of the effort to complete the activity. Or, the assistance of 2 or more helpers is required for the patient to complete the activity. If activity was not attempted, code reason: 7-Patient Refused. 9-Not Applicable-not attempted and the patient did not perform the activity before the current illness, exacerbation or injury. 10-Not Attempted due to Environmental Limitations-(lack of equipment, weather restraints, etc.). 88-Not Attempted due to Medical Conditions or Safety Concerns. Eating (QC): 6 Oral Hygiene (QC): 6 Upper Body Dressing (QC): 5 Lower Body Dressing (QC): 4 Toileting Hygiene (QC): 4 Toilet Transfer (QC): 4 Pt declines full shower due to pain in R hip. Partial sponge bath performed seated at sink. Pt washed upper body and tarik area only, no physical assistance needed. Pt initially declined changing LB clothing, however later in session, he had small incontinence of bowels. Extra time to thread BLE's into brief/pants with use of alarm field technician but no physical assistance or cues needed. Close supervision for safety as he stood to pull clothing up to waist. Pt will initiate several lengthy rest breaks secondary to c/o SOA and pain. Other Treatment Pt ambulated 80 feet x3 with use of walker and SBA. Pt reports unstable RLE however no buckling or unsteadiness observed. Cues for upright posture and taking slightly bigger steps. Very slow but steady gait. Pt with audible labored breathing with all activity. Very lengthy seated rest breaks after each bout. Education OT Patient Education: Correct positioning, Energy conservation, Modified ADL techniques, Progress toward Goal/Update tx plan, Purpose of tx/functional activities, Reviewed precautions, Safety issues, Transfer techniques, W/C management Teaching Recipient: Patient Teaching Methods: Demonstration, Discussion Response to Teaching: Verbalize Understanding, Return Demonstration, Reinforcement Needed OT Short Term Goals Short Term Goals Time Frame: Oct 14, 2021 Eatin Oral hygiene: 5 Toileting hygiene: 2 Shower/bathe self: 2 Upper body dressin Lower body dressin Putting on/taking off footwear: 2 OT Die Engraving Supervisor Goals Senior Care Goals Time Frame: Oct 29, 2021 Eating (QC): 6 Oral Hygiene (QC): 6 Toileting Hygiene (QC): 4 Shower/Bathe Self (QC): 4 Upper Body Dressing (QC): 4 Lower Body Dressing (QC): 4 On/Off Footwear (QC): 4 1=Demonstrate adherence to instructed precautions during ADL tasks. 2=Patient will verbalize/demonstrate understanding of assistive devices/m odifications for ADL. 3=Patient will improve strength/tolerance for activity to enable patient to perform ADL's. OT Education/Plan Problem List/Assessment Assessment: Decreased Activ Tolerance, Decreased Safety Aware, Decreased UE Strength, Impaired Cognition, Impaired Funct Balance, Impaired I ADL's, Impaired Self-Care Skills Discharge Recommendations Plan/Recommendations: Continue POC Treatment Plan/Plan of Care Treatment,Training & Education: Yes Patient would benefit from OT for education, treatment and training to promote independence in ADL's, mobility, safety and/or upper extremity function for ADL's. Plan of Care: ADL Retraining, Caregiver Training, Functional Mobility, Group Exercise/Act as Ind, UE Funct Exercise/Act, W/C Management Training Treatment Duration: Oct 29, 2021 Frequency: Modified Program (IRF) (24/09) Estimated Hrs Per Day: 1.5 hours per day (75-90 min/day ) Agreement: Yes Rehab Potential: Poor Time/GCodes Start Time: 09:15 Stop Time: 10:30 Total Time Billed (hr/min): 75 Billed Treatment Time 1 visit ADL x3 (40 min) FA x2 (35 min) Kiley Pena OT Oct 08, 2021 10:28
--- NOTE | 2021-10-08 10:28 | Physical Therapy Daily Note ---
PT Daily Note-Current Subjective Patient in bed pre tx, agrees to PT reluctantly, has unrated but severe pain in right leg, nurse brings in pain meds during tx. Patient states he is having a harder time breathing today, he has had a breathing tx recently and his O2 stays in mid 90's with activity. Will be co-treating with OT due to poor patient mo bility, strength, endurance, severe debility, coordinate UE and LE with activity, safety and reduce risk of falls. Appearance Patient in recliner post tx with nurse call phone, tray, all needs met. Mental Status Patient Orientation: Person, Place, Situation Attachments: Oxygen Transfers SCALE: Activities may be completed with or without assistive devices. 0-Ubcvlplahr-nnnrpyf completes the activity by him/herself with no assistance from a helper. 5-Set-up or Clean-up Assistance-helper sets up or cleans up; patient completes activity. [place] assists only prior to or following the activity. 4-Supervision or Touching Assistance-helper provides verbal cues and/or touching/steadying and/or contact guard assistance as patient completes activity. Assistance may be provided throughout the activity or intermittently. 3-Partial/Moderate Assistance-helper does LESS THAN HALF the effort. [place] lif ts, holds or supports trunk or limbs, but provides less than half the effort. 2-Substantial/Maximal Assistance-helper does MORE THAN HALF the effort. [place] lifts or holds trunk or limbs and provides more than half the effort. 6-Xhxrycvwm-oocxeh does ALL the effort. Patient does none of the effort to complete the activity. Or, the assistance of 2 or more helpers is required for the patient to complete the activity. If activity was not attempted, code reason: 7-Patient Refused. 9-Not Applicable-not attempted and the patient did not perform the activity before the current illness, exacerbation or injury. 10-Not Attempted due to Environmental Limitations-(lack of equipment, weather restraints, etc.). 88-Not Attempted due to Medical Conditions or Safety Concerns. Roll Left & Right (QC): 4 Lying to Sitting/Side of Bed(Q: 4 Sit to Stand (QC): 4 Chair/Gso-si-Medku Xfer(QC): 4 Toilet Transfer (QC): 4 Patient goes to the restroom to the sink and performs bathing, dressing, ADL's, PT assists patient with standing and positioning and safety. During tx patient has to use the restroom, performs toilet transfers with CGA, OT assists with dressing and cleaning while PT performs transfer and standing and positioning. Weight Bearing Right Lower Extremity: Right Non Weight Bearing Left Lower Extremity: Left Non Weight Bearing Gait Training Distance: 80'x3 Walk 10 feet (QC): 4 Walk 50 ft with 2 Turns(QC): 4 Gait Assistive Device: FWW WC follow, very slow, antalgic Wheelchair Training Does the Pt Use a Wheelchair?: Yes Wheel 50 ft with 2 turns (QC): 4 Type of Wheelchair: Manual 120', patient has difficulty with turning but can do it without assist Treatments PT performed standing and positioning and safety during dressing and bathing and ADL's, bed mobility and transfers, toileting, ambulation, WC mobility, OT performed bathing, dressing, ADL's, toileting, UE positioning and safety during activity. Assessment Current Status: Poor Progress Patient seems to have worsening air hunger which makes participation in therapy more difficult. PT Bar Finish Operator Goals Halfway Goals PT Halfway Goals Time Frame: Oct 22, 2021 Roll Left & Right (QC): 4 Sit to Lying (QC): 4 Lying-Sitting on Side/Bed(QC): 4 Sit to Stand (QC): 4 Chair/Hxv-lq-Cvzmz Xfer(QC): 4 Toilet Transfer (QC): 4 Car Transfer (QC): 4 Does the Patient Walk: Yes Walk 10 feet (QC): 4 Walk 50ft with 2 Turns (QC): 4 Walk 150 ft (QC): 3 Walking 10ft on Uneven Surface: 4 1 Step (curb) (QC): 3 4 Steps (QC): 3 12 Steps (QC): 3 Picking up an Object (QC): 4 Does the Pt use WC or Scooter?: No Wheel 50 feet with 2 turns (QC: 9 Wheel 150 feet: 9 PT Plan Problem List Problem List: Activity Tolerance, Functional Strength, Safety, Balance, Gait, Transfer, Bed Mobility, ROM Treatment/Plan Treatment Plan: Continue Plan of Care Treatment Plan: Bed Mobility, Education, Functional Activity Yoanna, Functional Strength, Group Therapy, Gait, Safety, Therapeutic Exercise, Transfers Treatment Duration: Nov 05, 2021 Frequency: At least 5 of 7 days/Wk (IRF) Estimated Hrs Per Day: 1.5 hours per day Patient and/or Family Agrees t: Yes Safety Risks/Education Patient Education: Gait Training, Transfer Techniques, Correct Positioning, W/C Management, Safety Issues Teaching Recipient: Patient Teaching Methods: Demonstration, Discussion Response to Teaching: Reinforcement Needed Time/GCodes Time In: 15 Time Out: 1030 Total Billed Treatment Time: 75 Total Billed Treatment 1 visit FA 75' co-treated for 75' KEN TOLENTINO PT Oct 08, 2021 10:28
--- NOTE | 2021-10-08 12:16 | Speech Therapy Daily Note ---
Speech Daily Progress Note Subjective Date Seen by Provider: Oct 08, 2021 Time Seen by Provider: 11:00 The patient was seated upright in his recliner, awake and alert upon entrance to his room by the clinician. The patient greeted the clinician appropriately and was agreeable to participation in the cognitive linguistic treatment session. Objective The patient completed frequent and consistent redirection to task on this date. The patient attempted functional recall of morning therapy sessions and functional memory recall of specific safety strategies. The patient provided minimal responses for the tasks attempted, continuing to return to the topic of his breathing treatments and the necessity of his pain medication. The patient continued to request information regarding specific pain medication and the amount his would be provided at discharge. The clinician stated the patient's estimated discharge is not until 10/14/2021 and information will be provided closer to the estimated date. With mild clinician prompting, the patient was able to identify orientation information on the in-room white board, independently, for the first time throughout skilled treatment sessions. Assessment Assessment Current Status: Poor Progress Treatment Plan Continue Plan of Care Speech Short Term Goals Short Term Goals Short Term Goals 1. The patient will demonstrated 75% accuracy with memory exercises with mild clinician verbal and visual cueing. Time Frame-STG: One Week. Speech Public Housing Manager Goals Public Housing Manager Goals 1. The patient will improve his cognitive linguistic skills for safe discharge to the least restrictive environment. Time Frame: Two Weeks. Speech-Plan Treatment Plan Speech Therapy Treatment Plan: Continue Plan of Care Treatment Duration: Oct 13, 2021 Frequency: 4 times per week (Four to five times per week.) Estimated Hrs Per Day: .5 hour per day Rehab Potential: Poor Safety Risks/Education Teaching Recipient: Patient Teaching Methods: Discussion Response to Teaching: Reinforcement Needed Education Topics Provided: Orientation Strategies Time Speech Therapy Time In: 11:00 Speech Therapy Time Out: 11:30 Total Billed Time: 30 Billed Treatment Time 1ROWENA [facility] Oct 08, 2021 12:16
[2021-10-08] MEDS: CLOPIDOGREL 75 MG (PLAVIX) TABLET PO SCH (12:34)
[2021-10-08 19:27] VITALS: BP 112/63
[2021-10-09] MEDS: RT-ALBUTEROL/IPRATROPIUM 3 ML (DUONEB) VIAL INH SCH ×6 (01:54→21:33)
[2021-10-09] MEDS: morphine IMMEDIATE RELEASE 15 MG TABLET PO PRN ×3 (05:20→21:51)
--- NOTE | 2021-10-09 06:18 | PM&R Progress Note ---
Subjective HPI/CC On Admission Date Seen by Provider: Oct 09, 2021 Time Seen by Provider: 06:00 Subjective/Events-last exam 10/09/2021: Patient doing well No pain is reported other than his usual Doing well with incentive spirometer 10/08/2021: Patient doing well No concerns at this point Sleeping well at night 10/07/2021: Doing much better Constantly complaining of pain which is out of proportion to his injury now a week out of surgery Maintained on oxygen 10/06/2021: Doing better 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 Pain improved Less pain meds taken overall 10/05/2021: Doing better every day Lungs clear BM regimen successful Monitor closely 10/04/2021: Pt is doing well Hemoglobin is 9.0 Drainage from the incision is less Sodium level is 130 10/03/2021: Doing much better Lungs remain clear O2 is at 3L/min at home Labs due tomorrow Pain improved 10/02/2021: Doing better Pain is an issue Checked meds and labs 10/01/2021: Pt requiring pain medication changes Overall having no significant other issues Morphine extended release and immediate release and discontinue Oxycodone and Morphine IV Soap suds enema will be given since he hasn't had a BM for 6 days 09/30/2021: Patient settling in well Pain is improved Hypoxia noted Hgb 7.8 and dyspnea noted and cardiac dysfunction noted so will transfuse O2 maintained BM need to move Nebs ordered Review of Systems General: Fatigue, Malaise Pulmonary: Dyspnea Musculoskeletal: leg pain Objective Exam Vital Signs Vital Signs Date Time Temp Pulse Resp B/P (MAP) Pulse Ox O2 Delivery O2 Flow Rate FiO2 10/09/21 18:14 98 Nasal Cannula 3.00 10/09/21 08:21 36.5 77 20 156/73 (100) Capillary Refill : General Appearance: No Apparent Distress, WD/WN, Anxious, Chronically ill HEENT: PERRL/EOMI, Normal ENT Inspection, Pharynx Normal Neck: Full Range of Motion, Normal Inspection, Non Tender, Supple, Carotid Bruit Respiratory: Chest Non Tender, Lungs Clear, No Accessory Muscle Use, No Respiratory Distress, Decreased Breath Sounds Cardiovascular: No Edema, No Gallop, No JVD, No Murmur, Normal Peripheral Pulses, Irregularly Irregular, Tachycardia Gastrointestinal: Normal Bowel Sounds, No Organomegaly, No Pulsatile Mass, Non Tender, Soft Back: Normal Inspection, No CVA Tenderness, No Vertebral Tenderness Extremity: Normal Capillary Refill, Normal Inspection, Normal Range of Motion, Non Tender, No Calf Tenderness, No Pedal Edema Neurologic/Psychiatric: Alert, No Motor/Sensory Deficits, Normal Mood/Affect, Abnormal Gait, Disoriented, Motor Weakness Skin: Normal Color, Warm/Dry Lymphatic: No Adenopathy Results/Procedures Lab Patient resulted labs reviewed. FIM Transfers Therapy Code Descriptions/Definitions Functional [place] Measure: 0=Not Assessed/NA 4=Minimal Assistance 1=Total Assistance 5=Supervision or Setup 2=Maximal Assistance 6=Modified [place] 3=Moderate Assistance 7=Complete IndependenceSCALE: Activities may be completed with or without assistive devices. 6-Jhlrescqeq-jchrbeo completes the activity by him/herself with no assistance from a helper. 5-Set-up or Clean-up Assistance-helper sets up or cleans up; patient completes activity. [place] assists only prior to or following the activity. 4-Supervision or Touching Assistance-helper provides verbal cues and/or touching/steadying and/or contact guard assistance as patient completes activity. Assistance may be provided throughout the activity or intermittently. 3-Partial/Moderate Assistance-helper does LESS THAN HALF the effort. [place] lifts, holds or supports trunk or limbs, but provides less than half the effort. 2-Substantial/Maximal Assistance-helper does MORE THAN HALF the effort. [place] lifts or holds trunk or limbs and provides more than half the effort. 7-Riodkdhhj-qyruaa does ALL the effort. Patient does none of the effort to complete the activity. Or, the assistance of 2 or more helpers is required for the patient to complete the activity. If activity was not attempted, code reason: 7-Patient Refused. 9-Not Applicable-not attempted and the patient did not perform the activity before the current illness, exacerbation or injury. 10-Not Attempted due to Environmental Limitations-(lack of equipment, weather restraints, etc.). 88-Not Attempted due to Medical Conditions or Safety Concerns. Roll Left to Right (QC): 4 Sit to Lying (QC): 3 Sit to Stand (QC): 4 Chair/Wmx-on-Valjf Xfer(QC): 4 Car Transfer (QC): 2 Gait Training Does the Patient Walk?: Yes Distance: 80'x3 Walk 10 feet (QC): 4 Walk 50 ft with 2 Turns(QC): 4 Walk 150 ft (QC): 88 Walking 10ft/uneven surface-QC: 88 Gait Persons Needed: 1 Gait Assistive Device: FWW Wheelchair Training Does the Pt Use a Wheelchair?: Yes Wheel 50 ft with 2 turns (QC): 4 Wheel 150 ft (QC): 4 Type of Wheelchair: Manual Stair Training 1 Step (curb) (QC): 88 4 Steps (QC): 88 12 Steps (QC): 88 Balance Picking up an Object (QC): 88 ADL-Treatment Eating (QC): 6 Oral Hygiene (QC): 6 Shower/Bathe Self (QC): 4 Upper Body Dressing (QC): 5 Lower Body Dressing (QC): 4 On/Off Footwear (QC): 3 Toileting Hygiene (QC): 4 Toilet Transfer (QC): 4 Assessment/Plan Assessment and Plan Assess & Plan/Chief Complaint Assessment: Right hip fracture Alcoholism s/p active withdrawal Smoker AF CAD CABG hx Post op anemia from acute blood loss requiring transfusion on 1 unit of blood 09/30/21 Constipation Plan: Monitor closely [place] DC soon O2 PT OT with rest breaks 09/30/2021: Transfuse Monitor pain Monitor O2 10/01/2021: Enema Pain med transition to PO 10/02/2021: Pain control Monitor closely 10/03/2021: Monitor hgb Pain control 10/04/2021: Monitor closely 10/05/2021: Monitor BP Fall risk 10/06/2021: Improved status 10/07/2021: Improved status 10/08/2021: Pain control 10/09/2021: Continue bowel regimen (1) Coronary artery disease without angina pectoris Assessment & Plan: He is not having any angina. He reportedly had a coronary stent around August 2021. He is on clopidogrel and beta-subhash. He is not on aspirin since he takes apixaban for atrial fibrillation. Unclear why he is not on statin medication. I have added a lipid panel to previous labs. (2) Paroxysmal atrial fibrillation Assessment & Plan: He has a reported history of paroxysmal atrial fibrillation. His electrocardiogram from admission shows sinus rhythm. He is on beta-subhash for rate control and apixaban for stroke prophylaxis. There is no indication for telemetry monitoring at this point in time. (3) Primary hypertension Assessment & Plan: Blood pressure has been reasonably controlled with the current medication. (4) Mixed hyperlipidemia Assessment & Plan: He has a history of hyperlipidemia but is not currently on a statin medication. I have added a lipid panel to previous labs. (5) Acute on chronic respiratory failure with hypoxemia Assessment & Plan: Most likely due to his severe underlying chronic obstructive pulmonary disease. He should continue with oxygen. ALEXANDRA JUDGE DO Oct 09, 2021 06:18
[2021-10-09] MEDS: guaiFENesin (MUCINEX) 600 MG TAB PO SCH ×2 (08:16→20:04)
[2021-10-09] MEDS: CLOPIDOGREL 75 MG (PLAVIX) TABLET PO SCH (08:16)
[2021-10-09] MEDS: amLODIPine 5 MG (NORVASC) TAB PO SCH (08:16)
[2021-10-09] MEDS: APIXABAN 5 MG (ELIQUIS) TABLET PO SCH ×2 (08:16→20:04)
[2021-10-09] MEDS: FOLIC ACID 1 MG TAB PO SCH (08:16)
[2021-10-09] MEDS: meTOprolol TARTRATE 25 MG (LOPRESSOR) TABLET PO SCH ×2 (08:16→20:04)
[2021-10-09] MEDS: morphine ER 15 MG (MS CONTIN) TAB PO SCH ×2 (08:17→20:04)
[2021-10-09] MEDS: DOCUSATE SODIUM 100 MG (COLACE) CAP PO SCH ×2 (08:18→19:42)
[2021-10-09] MEDS: polyethylene glycoL POWDER 17 GM (MIRALAX) PACK PO SCH ×2 (08:18→19:18)
[2021-10-09] MEDS: SENNA W/DOCUSATE (SENOKOT S) TABLET PO SCH ×2 (08:18→19:42)
[2021-10-09 08:21] VITALS: BP 156/73
[2021-10-09] MEDS: LORazepam 0.5 MG (ATIVAN) TABLET PO PRN ×2 (09:19→21:51)
--- NOTE | 2021-10-09 11:54 | Physical Therapy Daily Note ---
PT Daily Note-Current Subjective Pt reports he is very short of breath today and requests breathing treatment prior to treatment. Respiratory therapy administered breathing treatment. Transfers SCALE: Activities may be completed with or without assistive devices. 3-Dmevnzuqbf-tfdclsb completes the activity by him/herself with no assistance from a helper. 5-Set-up or Clean-up Assistance-helper sets up or cleans up; patient completes activity. [place] assists only prior to or following the activity. 4-Supervision or Touching Assistance-helper provides verbal cues and/or touching/steadying and/or contact guard assistance as patient completes activity. Assistance may be provided throughout the activity or intermittently. 3-Partial/Moderate Assistance-helper does LESS THAN HALF the effort. [place] lifts, holds or supports trunk or limbs, but provides less than half the effort. 2-Substantial/Maximal Assistance-helper does MORE THAN HALF the effort. [place] lifts or holds trunk or limbs and provides more than half the effort. 2-Ebpjgyeqe-auntsd does ALL the effort. Patient does none of the effort to complete the activity. Or, the assistance of 2 or more helpers is required for the patient to complete the activity. If activity was not attempted, code reason: 7-Patient Refused. 9-Not Applicable-not attempted and the patient did not perform the activity before the current illness, exacerbation or injury. 10-Not Attempted due to Environmental Limitations-(lack of equipment, weather restraints, etc.). 88-Not Attempted due to Medical Conditions or Safety Concerns. Weight Bearing Right Lower Extremity: Right Non Weight Bearing Left Lower Extremity: Left Non Weight Bearing Gait Training Gait Assistive Device: FWW Ambulate 125ft with FWW and CGA with verbal cues for right wt bearing. Seated rest and repeat. Supplemental oxygen at 3L/min. Assessment Pt very short of air during treatment. Required a 5 min rest between walking trials to regain control of breathing. PT Injection Molding Engineer Goals Jail Goals PT Injection Molding Engineer Goals Time Frame: Oct 22, 2021 Roll Left & Right (QC): 4 Sit to Lying (QC): 4 Lying-Sitting on Side/Bed(QC): 4 Sit to Stand (QC): 4 Chair/Fyn-se-Lgenx Xfer(QC): 4 Toilet Transfer (QC): 4 Car Transfer (QC): 4 Does the Patient Walk: Yes Walk 10 feet (QC): 4 Walk 50ft with 2 Turns (QC): 4 Walk 150 ft (QC): 3 Walking 10ft on Uneven Surface: 4 1 Step (curb) (QC): 3 4 Steps (QC): 3 12 Steps (QC): 3 Picking up an Object (QC): 4 Does the Pt use WC or Scooter?: No Wheel 50 feet with 2 turns (QC: 9 Wheel 150 feet: 9 PT Plan Treatment/Plan Treatment Plan: Continue Plan of Care Treatment Plan: Bed Mobility, Education, Functional Activity Yoanna, Functional Strength, Group Therapy, Gait, Safety, Therapeutic Exercise, Transfers Treatment Duration: Nov 05, 2021 Frequency: At least 5 of 7 days/Wk (IRF) Estimated Hrs Per Day: 1.5 hours per day Patient and/or Family Agrees t: Yes Time/GCodes Time In: 1045 Time Out: 1105 Total Billed Treatment Time: 20 Total Billed Treatment visit, gait 20 min MONIK MARTIN PT Oct 09, 2021 11:54
[2021-10-09 20:02] VITALS: BP 103/70
[2021-10-10] MEDS: RT-ALBUTEROL/IPRATROPIUM 3 ML (DUONEB) VIAL INH SCH ×6 (02:04→21:37)
--- NOTE | 2021-10-10 06:24 | PM&R Progress Note ---
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 Pain improved Less pain meds taken overall 10/05/2021: Doing better every day Lungs clear BM regimen successful Monitor closely 10/04/2021: Pt is doing well Hemoglobin is 9.0 Drainage from the incision is less Sodium level is 130 10/03/2021: Doing much better Lungs remain clear O2 is at 3L/min at home Labs due tomorrow Pain improved 10/02/2021: Doing better Pain is an issue Checked meds and labs 10/01/2021: Pt requiring pain medication changes Overall having no significant other issues Morphine extended release and immediate release and discontinue Oxycodone and Morphine IV Soap suds enema will be given since he hasn't had a BM for 6 days 09/30/2021: Patient settling in well Pain is improved Hypoxia noted Hgb 7.8 and dyspnea noted and cardiac dysfunction noted so will transfuse O2 maintained BM need to move Nebs ordered Review of Systems Musculoskeletal: leg pain Objective Exam Vital Signs Vital Signs Date Time Temp Pulse Resp B/P (MAP) Pulse Ox O2 Delivery O2 Flow Rate FiO2 10/10/21 19:25 26.6 72 18 109/57 (74) 98 Nasal Cannula 3.00 10/10/21 07:08 32 Capillary Refill : General Appearance: No Apparent Distress, WD/WN, Anxious, Chronically ill HEENT: PERRL/EOMI, Normal ENT Inspection, Pharynx Normal Neck: Full Range of Motion, Normal Inspection, Non Tender, Supple, Carotid Bruit Respiratory: Chest Non Tender, Lungs Clear, No Accessory Muscle Use, No Respiratory Distress, Decreased Breath Sounds Cardiovascular: No Edema, No Gallop, No JVD, No Murmur, Normal Peripheral Pulses, Irregularly Irregular, Tachycardia Gastrointestinal: Normal Bowel Sounds, No Organomegaly, No Pulsatile Mass, Non Tender, Soft Back: Normal Inspection, No CVA Tenderness, No Vertebral Tenderness Extremity: Normal Capillary Refill, Normal Inspection, Normal Range of Motion, Non Tender, No Calf Tenderness, No Pedal Edema Neurologic/Psychiatric: Alert, No Motor/Sensory Deficits, Normal Mood/Affect, Abnormal Gait, Disoriented, Motor Weakness Skin: Normal Color, Warm/Dry Lymphatic: No Adenopathy Results/Procedures Lab Patient resulted labs reviewed. FIM Transfers Therapy Code Descriptions/Definitions Functional [place] Measure: 0=Not Assessed/NA 4=Minimal Assistance 1=Total Assistance 5=Supervision or Setup 2=Maximal Assistance 6=Modified [place] 3=Moderate Assistance 7=Complete IndependenceSCALE: Activities may be completed with or without assistive devices. 9-Gumhbawyza-rnwoabh completes the activity by him/herself with no assistance from a helper. 5-Set-up or Clean-up Assistance-helper sets up or cleans up; patient completes activity. [place] assists only prior to or following the activity. 4-Supervision or Touching Assistance-helper provides verbal cues and/or touching/steadying and/or contact guard assistance as patient completes activity. Assistance may be provided throughout the activity or intermittently. 3-Partial/Moderate Assistance-helper does LESS THAN HALF the effort. [place] lifts, holds or supports trunk or limbs, but provides less than half the effort. 2-Substantial/Maximal Assistance-helper does MORE THAN HALF the effort. [place] lifts or holds trunk or limbs and provides more than half the effort. 4-Qbhtvsrtq-nkbflb does ALL the effort. Patient does none of the effort to complete the activity. Or, the assistance of 2 or more helpers is required for the patient to complete the activity. If activity was not attempted, code reason: 7-Patient Refused. 9-Not Applicable-not attempted and the patient did not perform the activity before the current illness, exacerbation or injury. 10-Not Attempted due to Environmental Limitations-(lack of equipment, weather restraints, etc.). 88-Not Attempted due to Medical Conditions or Safety Concerns. Roll Left to Right (QC): 4 Sit to Lying (QC): 3 Sit to Stand (QC): 4 Chair/Uri-pp-Otykw Xfer(QC): 4 Car Transfer (QC): 2 Gait Training Does the Patient Walk?: Yes Distance: 80'x3 Walk 10 feet (QC): 4 Walk 50 ft with 2 Turns(QC): 4 Walk 150 ft (QC): 88 Walking 10ft/uneven surface-QC: 88 Gait Persons Needed: 1 Gait Assistive Device: FWW Wheelchair Training Does the Pt Use a Wheelchair?: Yes Wheel 50 ft with 2 turns (QC): 4 Wheel 150 ft (QC): 4 Type of Wheelchair: Manual Stair Training 1 Step (curb) (QC): 88 4 Steps (QC): 88 12 Steps (QC): 88 Balance Picking up an Object (QC): 88 ADL-Treatment Eating (QC): 6 Oral Hygiene (QC): 6 Shower/Bathe Self (QC): 4 Upper Body Dressing (QC): 5 Lower Body Dressing (QC): 4 On/Off Footwear (QC): 3 Toileting Hygiene (QC): 4 Toilet Transfer (QC): 4 Assessment/Plan Assessment and Plan Assess & Plan/Chief Complaint Assessment: Right hip fracture Alcoholism s/p active withdrawal Smoker AF CAD CABG hx Post op anemia from acute blood loss requiring transfusion on 1 unit of blood 09/30/21 Constipation Plan: Monitor closely [place] DC soon O2 PT OT with rest breaks 09/30/2021: Transfuse Monitor pain Monitor O2 10/01/2021: Enema Pain med transition to PO 10/02/2021: Pain control Monitor closely 10/03/2021: Monitor hgb Pain control 10/04/2021: Monitor closely 10/05/2021: Monitor BP Fall risk 10/06/2021: Improved status 10/07/2021: Improved status 10/08/2021: Pain control 10/09/2021: Continue bowel regimen 10/10/2021: Supportive care (1) Coronary artery disease without angina pectoris Assessment & Plan: He is not having any angina. He reportedly had a coronary stent around August 2021. He is on clopidogrel and beta-subhash. He is not on aspirin since he takes apixaban for atrial fibrillation. Unclear why he is not on statin medication. I have added a lipid panel to previous labs. (2) Paroxysmal atrial fibrillation Assessment & Plan: He has a reported history of paroxysmal atrial fibrillation. His electrocardiogram from admission shows sinus rhythm. He is on beta-subhash for rate control and apixaban for stroke prophylaxis. There is no indication for telemetry monitoring at this point in time. (3) Primary hypertension Assessment & Plan: Blood pressure has been reasonably controlled with the curre nt medication. (4) Mixed hyperlipidemia Assessment & Plan: He has a history of hyperlipidemia but is not currently on a statin medication. I have added a lipid panel to previous labs. (5) Acute on chronic respiratory failure with hypoxemia Assessment & Plan: Most likely due to his severe underlying chronic obstructive pulmonary disease. He should continue with oxygen. ALEXANDRA JUDGE DO Oct 10, 2021 06:24
[2021-10-10 07:03] VITALS: BP 129/67
[2021-10-10 07:08] VITALS: BP 129/67
[2021-10-10] MEDS: guaiFENesin (MUCINEX) 600 MG TAB PO SCH ×2 (08:06→20:11)
[2021-10-10] MEDS: amLODIPine 5 MG (NORVASC) TAB PO SCH (08:07)
[2021-10-10] MEDS: SENNA W/DOCUSATE (SENOKOT S) TABLET PO SCH ×2 (08:07→20:11)
[2021-10-10] MEDS: polyethylene glycoL POWDER 17 GM (MIRALAX) PACK PO SCH ×2 (08:07→21:59)
[2021-10-10] MEDS: APIXABAN 5 MG (ELIQUIS) TABLET PO SCH ×2 (08:07→20:11)
[2021-10-10] MEDS: FOLIC ACID 1 MG TAB PO SCH (08:07)
[2021-10-10] MEDS: DOCUSATE SODIUM 100 MG (COLACE) CAP PO SCH ×2 (08:07→20:11)
[2021-10-10] MEDS: CLOPIDOGREL 75 MG (PLAVIX) TABLET PO SCH (08:07)
[2021-10-10] MEDS: meTOprolol TARTRATE 25 MG (LOPRESSOR) TABLET PO SCH ×2 (08:07→20:11)
[2021-10-10] MEDS: morphine ER 15 MG (MS CONTIN) TAB PO SCH ×2 (08:08→20:11)
[2021-10-10] MEDS: morphine IMMEDIATE RELEASE 15 MG TABLET PO PRN ×2 (14:06→21:52)
[2021-10-10 19:25] VITALS: BP 109/57
[2021-10-10] MEDS: ACETAMINOPHEN 325 MG TABLET PO PRN (21:51)
[2021-10-10] MEDS: ONDANSETRON 4 MG (ZOFRAN) ORAL DISSOLVE TAB PO PRN (22:54)
[2021-10-11] MEDS: RT-ALBUTEROL/IPRATROPIUM 3 ML (DUONEB) VIAL INH SCH ×6 (01:34→21:31)
--- NOTE | 2021-10-11 04:15 | PM&R Progress Note ---
Subjective HPI/CC On Admission Date Seen by Provider: Oct 11, 2021 Subjective/Events-last exam 10/11/2021: Patient doing a lot better Pain is controlled Supportive care continues 2 L of oxygen maintain as his home level 10/10/2021: Doing well Minimal pain medication now Using incentive spirometer No falls 10/09/2021: Patient doing well No pain is reported other than his usual Doing well with incentive spirometer 10/08/2021: Patient doing well No concerns at this point Sleeping well at night 10/07/2021: Doing much better Constantly complaining of pain which is out of proportion to his injury now a week out of surgery Maintained on oxygen 10/06/2021: Doing better 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 Pain improved Less pain meds taken overall 10/05/2021: Doing better every day Lungs clear BM regimen successful Monitor closely 10/04/2021: Pt is doing well Hemoglobin is 9.0 Drainage from the incision is less Sodium level is 130 10/03/2021: Doing much better Lungs remain clear O2 is at 3L/min at home Labs due tomorrow Pain improved 10/02/2021: Doing better Pain is an issue Checked meds and labs 10/01/2021: Pt requiring pain medication changes Overall having no significant other issues Morphine extended release and immediate release and discontinue Oxycodone and Morphine IV Soap suds enema will be given since he hasn't had a BM for 6 days 09/30/2021: Patient settling in well Pain is improved Hypoxia noted Hgb 7.8 and dyspnea noted and cardiac dysfunction noted so will transfuse O2 maintained BM need to move Nebs ordered Review of Systems Musculoskeletal: leg pain Objective Exam Vital Signs Vital Signs Date Time Temp Pulse Resp B/P (MAP) Pulse Ox O2 Delivery O2 Flow Rate FiO2 10/12/21 02:56 97 Nasal Cannula 2.00 10/11/21 20:00 37.2 79 20 122/77 (92) 10/10/21 07:08 32 Capillary Refill : General Appearance: No Apparent Distress, WD/WN, Anxious, Chronically ill HEENT: PERRL/EOMI, Normal ENT Inspection, Pharynx Normal Neck: Full Range of Motion, Normal Inspection, Non Tender, Supple, Carotid Bruit Respiratory: Chest Non Tender, Lungs Clear, No Accessory Muscle Use, No Respiratory Distress, Decreased Breath Sounds Cardiovascular: No Edema, No Gallop, No JVD, No Murmur, Normal Peripheral Pulses, Irregularly Irregular, Tachycardia Gastrointestinal: Normal Bowel Sounds, No Organomegaly, No Pulsatile Mass, Non Tender, Soft Back: Normal Inspection, No CVA Tenderness, No Vertebral Tenderness Extremity: Normal Capillary Refill, Normal Inspection, Normal Range of Motion, Non Tender, No Calf Tenderness, No Pedal Edema Neurologic/Psychiatric: Alert, No Motor/Sensory Deficits, Normal Mood/Affect, Abnormal Gait, Disoriented, Motor Weakness Skin: Normal Color, Warm/Dry Lymphatic: No Adenopathy Results/Procedures Lab Patient resulted labs reviewed. FIM Transfers Therapy Code Descriptions/Definitions Functional [place] Measure: 0=Not Assessed/NA 4=Minimal Assistance 1=Total Assistance 5=Supervision or Setup 2=Maximal Assistance 6=Modified [place] 3=Moderate Assistance 7=Complete IndependenceSCALE: Activities may be completed with or without assistive devices. 4-Oxfcwbemrf-evgtvvr completes the activity by him/herself with no assistance from a helper. 5-Set-up or Clean-up Assistance-helper sets up or cleans up; patient completes activity. [place] assists only prior to or following the activity. 4-Supervision or Touching Assistance-helper provides verbal cues and/or touching/steadying and/or contact guard assistance as patient completes activity. Assistance may be provided throughout the activity or intermittently. 3-Partial/Moderate Assistance-helper does LESS THAN HALF the effort. [place] lifts, holds or supports trunk or limbs, but provides less than half the effort. 2-Substantial/Maximal Assistance-helper does MORE THAN HALF the effort. [place] lifts or holds trunk or limbs and provides more than half the effort. 3-Gvfbazldu-hadmug does ALL the effort. Patient does none of the effort to complete the activity. Or, the assistance of 2 or more helpers is required for the patient to complete the activity. If activity was not attempted, code reason: 7-Patient Refused. 9-Not Applicable-not attempted and the patient did not perform the activity before the current illness, exacerbation or injury. 10-Not Attempted due to Environmental Limitations-(lack of equipment, weather restraints, etc.). 88-Not Attempted due to Medical Conditions or Safety Concerns. Roll Left to Right (QC): 4 Sit to Lying (QC): 3 Sit to Stand (QC): 4 Chair/Jyd-tb-Srovi Xfer(QC): 4 Car Transfer (QC): 2 Gait Training Does the Patient Walk?: Yes Distance: 80'x3 Walk 10 feet (QC): 4 Walk 50 ft with 2 Turns(QC): 4 Walk 150 ft (QC): 88 Walking 10ft/uneven surface-QC: 88 Gait Persons Needed: 1 Gait Assistive Device: FWW Wheelchair Training Does the Pt Use a Wheelchair?: Yes Wheel 50 ft with 2 turns (QC): 4 Wheel 150 ft (QC): 4 Type of Wheelchair: Manual Stair Training 1 Step (curb) (QC): 88 4 Steps (QC): 88 12 Steps (QC): 88 Balance Picking up an Object (QC): 88 ADL-Treatment Eating (QC): 6 Oral Hygiene (QC): 6 Shower/Bathe Self (QC): 4 Upper Body Dressing (QC): 5 Lower Body Dressing (QC): 4 On/Off Footwear (QC): 3 Toileting Hygiene (QC): 4 Toilet Transfer (QC): 4 Assessment/Plan Assessment and Plan Assess & Plan/Chief Complaint Assessment: Right hip fracture Alcoholism s/p active withdrawal Smoker AF CAD CABG hx Post op anemia from acute blood loss requiring transfusion on 1 unit of blood 09/30/21 Constipation Oxygen dependent 2 L Plan: Monitor closely [place] SUKUMAR soon O2 PT OT with rest breaks 09/30/2021: Transfuse Monitor pain Monitor O2 10/01/2021: Enema Pain med transition to PO 10/02/2021: Pain control Monitor closely 10/03/2021: Monitor hgb Pain control 10/04/2021: Monitor closely 10/05/2021: Monitor BP Fall risk 10/06/2021: Improved status 10/07/2021: Improved status 10/08/2021: Pain control 10/09/2021: Continue bowel regimen 10/10/2021: Supportive care 10/11/2021: Patient doing much better Discharge planning (1) Coronary artery disease without angina pectoris Assessment & Plan: He is not having any angina. He reportedly had a coronary stent around August 2021. He is on clopidogrel and beta-subhash. He is not on aspirin since he takes apixaban for atrial fibrillation. Unclear why he is not on statin medication. I have added a lipid panel to previous labs. (2) Paroxysmal atrial fibrillation Assessment & Plan: He has a reported history of paroxysmal atrial fibrillation. His electrocardiogram from admission shows sinus rhythm. He is on beta-subhash for rate control and apixaban for stroke prophylaxis. There is no indication for telemetry monitoring at this point in time. (3) Primary hypertension Assessment & Plan: Blood pressure has been reasonably controlled with the current medication. (4) Mixed hyperlipidemia Assessment & Plan: He has a history of hyperlipidemia but is not currently on a statin medication. I have added a lipid panel to previous labs. (5) Acute on chronic respiratory failure with hypoxemia Assessment & Plan: Most likely due to his severe underlying chronic obstructive pulmonary disease. He should continue with oxygen. ALEXANDRA JUDGE DO Oct 11, 2021 04:15
[2021-10-11 05:43] LABS: BASOPHILS # (AUTO) 0.1 10^3/uL (0.0-0.1); BASOPHILS % (AUTO) 1 % (0-10); EOSINOPHILS # (AUTO) 0.3 10^3/uL (0.0-0.3); EOSINOPHILS % (AUTO) 5 % (0-10); HEMATOCRIT 28 % (40-54); HEMOGLOBIN 9.2 g/dL (13.3-17.7); LYMPHOCYTES # (AUTO) 1.1 10^3/uL (1.0-4.0); LYMPHOCYTES % (AUTO) 18 % (12-44); MEAN CORPUSCULAR HEMOGLOBIN 33 pg (25-34); MEAN CORPUSCULAR HGB CONC 33 g/dL (32-36); MEAN CORPUSCULAR VOLUME 103 fL (80-99); MEAN PLATELET VOLUME 8.4 fL (9.0-12.2); MONOCYTES # (AUTO) 0.8 10^3/uL (0.0-1.0); MONOCYTES % (AUTO) 13 % (0-12); NEUTROPHILS % (AUTO) 63 % (42-75); PLATELET COUNT 507 10^3/uL (130-400); WHITE BLOOD COUNT 6.3 10^3/uL (4.3-11.0)
[2021-10-11 06:00] LABS: ALBUMIN 3.1 GM/DL (3.2-4.5)
[2021-10-11 06:01] LABS: CALCIUM 8.4 MG/DL (8.5-10.1)
[2021-10-11 06:02] LABS: TOTAL PROTEIN 5.9 GM/DL (6.4-8.2)
[2021-10-11 06:04] LABS: BILIRUBIN,TOTAL 0.7 MG/DL (0.1-1.0)
[2021-10-11 06:06] LABS: CREATININE SERUM 0.66 MG/DL (0.60-1.30)
[2021-10-11 07:16] VITALS: BP 136/68
[2021-10-11] MEDS: amLODIPine 5 MG (NORVASC) TAB PO SCH (07:43)
[2021-10-11] MEDS: meTOprolol TARTRATE 25 MG (LOPRESSOR) TABLET PO SCH ×2 (07:43→21:13)
[2021-10-11] MEDS: morphine ER 15 MG (MS CONTIN) TAB PO SCH ×2 (07:43→21:13)
[2021-10-11] MEDS: LORazepam 0.5 MG (ATIVAN) TABLET PO PRN (07:43)
[2021-10-11] MEDS: APIXABAN 5 MG (ELIQUIS) TABLET PO SCH ×2 (07:43→21:13)
[2021-10-11] MEDS: FOLIC ACID 1 MG TAB PO SCH (07:43)
[2021-10-11] MEDS: DOCUSATE SODIUM 100 MG (COLACE) CAP PO SCH ×2 (07:43→21:13)
[2021-10-11] MEDS: SENNA W/DOCUSATE (SENOKOT S) TABLET PO SCH ×2 (07:43→21:13)
[2021-10-11] MEDS: CLOPIDOGREL 75 MG (PLAVIX) TABLET PO SCH (07:43)
[2021-10-11] MEDS: guaiFENesin (MUCINEX) 600 MG TAB PO SCH ×2 (07:43→21:13)
[2021-10-11] MEDS: polyethylene glycoL POWDER 17 GM (MIRALAX) PACK PO SCH ×2 (07:43→19:34)
--- NOTE | 2021-10-11 08:34 | Occupational Ther Daily Note ---
OT Current Status-Daily Note Subjective Pt reports pain is 7/10 in R hip. He is unable to recall time of last pain meds and will repeatedly ask for pain meds or a breathing treatment. Pt confused this date. He tells this therapist that he needs to start going back to worship and that [place] far away, [place] of [facility] ([place]). When asked where [place] is he says "[place] With further discussion, pt reports that he is in [place]. Re-orientation needed. Mental Status/Objective Patient Orientation: Person, Confused, Situation Attachments: IV, Oxygen (2L) ADL-Treatment Therapy Code Descriptions/Definitions Functional [place] Measure: 0=Not Assessed/NA 4=Minimal Assistance 1=Total Assistance 5=Supervision or Setup 2=Maximal Assistance 6=Modified [place] 3=Moderate Assistance 7=Complete IndependenceSCALE: Activities may be completed with or without assistive devices. 7-Uiwurgzafx-kceqqpd completes the activity by him/herself with no assistance from a helper. 5-Set-up or Clean-up Assistance-helper sets up or cleans up; patient completes activity. [place] assists only prior to or following the activity. 4-Supervision or Touching Assistance-helper provides verbal cues and/or touching/steadying and/or contact guard assistance as patient completes activity. Assistance may be provided throughout the activity or intermittently. 3-Partial/Moderate Assistance-helper does LESS THAN HALF the effort. [place] lifts, holds or supports trunk or limbs, but provides less than half the effort. 2-Substantial/Maximal Assistance-helper does MORE THAN HALF the effort. [place] lifts or holds trunk or limbs and provides more than half the effort. 3-Yisnpgouh-oiivyu does ALL the effort. Patient does none of the effort to complete the activity. Or, the assistance of 2 or more helpers is required for the patient to complete the activity. If activity was not attempted, code reason: 7-Patient Refused. 9-Not Applicable-not attempted and the patient did not perform the activity before the current illness, exacerbation or injury. 10-Not Attempted due to Environmental Limitations-(lack of equipment, weather restraints, etc.). 88-Not Attempted due to Medical Conditions or Safety Concerns. Shower/Bathe Self (QC): 4 Upper Body Dressing (QC): 5 Lower Body Dressing (QC): 4 On/Off Footwear: 4 Toileting Hygiene (QC): 4 Toilet Transfer (QC): 4 Supine>sit: Mod I for extra time, no cues or physical assistance needed. Pt reports needing advanced notice (to prepare mentally) on when he will take a shower. Discussion on completing one tomorrow. Sponge bath performed seated at EOB. LHS utilized to wash LB. Close supervision for safety with balance as he stood to wash tarik area/buttocks. No unsteadiness exhibited however, pt is observed to put less weight bearing through RLE this date. He reports pain increases with weight bearing. No cue needed to initiate use of calender worker helper for LB dressing this date. Again, supervision for safety as he stood to manage clothing up to waist. Dependent to don zaida hose. Pt will initiate several lengthy rest breaks during adls secondary to c/o SOA. Longer breaks required for recovery this date. Other Treatment Pt participated in UE exercises with 2# hand held weight. Focus on improving strength and endurance needed for functional activities. Pt able to complete all movements through full range. He reports fatigue quicker in LUE but still able to complete all reps in set. Min cues for improved breathing techniques during exercises. 1x12 all planes. Education OT Patient Education: Correct positioning, Energy conservation, Exercise program, Modified ADL techniques, Progress toward Goal/Update tx plan, Purpose of tx/functional activities, Safety issues, Transfer techniques Teaching Recipient: Patient Teaching Methods: Demonstration, Discussion Response to Teaching: Verbalize Understanding, Return Demonstration, Reinforcement Needed OT Short Term Goals Short Term Goals Time Frame: Oct 14, 2021 Eatin Oral hygiene: 5 Toileting hygiene: 2 Shower/bathe self: 2 Upper body dressin Lower body dressin Putting on/taking off footwear: 2 OT Curam Developer Goals Curam Developer Goals Time Frame: Oct 29, 2021 Eating (QC): 6 Oral Hygiene (QC): 6 Toileting Hygiene (QC): 4 Shower/Bathe Self (QC): 4 Upper Body Dressing (QC): 4 Lower Body Dressing (QC): 4 On/Off Footwear (QC): 4 1=Demonstrate adherence to instructed precautions during ADL tasks. 2=Patient will verbalize/demonstrate understanding of assistive devices/modifications for ADL. 3=Patient will improve strength/tolerance for activity to enable patient to per form ADL's. OT Education/Plan Problem List/Assessment Assessment: Decreased Activ Tolerance, Decreased Safety Aware, Decreased UE Strength, Impaired Cognition, Impaired Funct Balance, Impaired I ADL's, Impaired Self-Care Skills Discharge Recommendations Plan/Recommendations: Continue POC Treatment Plan/Plan of Care Treatment,Training & Education: Yes Patient would benefit from OT for education, treatment and training to promote independence in ADL's, mobility, safety and/or upper extremity function for ADL's. Plan of Care: ADL Retraining, Caregiver Training, Functional Mobility, Group Exercise/Act as Ind, UE Funct Exercise/Act, W/C Management Training Treatment Duration: Oct 29, 2021 Frequency: Modified Program (IRF) (24/09) Estimated Hrs Per Day: 1.5 hours per day (75-90 min/day ) Agreement: Yes Rehab Potential: Poor Time/GCodes Start Time: 07:45 Stop Time: 09:00 Total Time Billed (hr/min): 75 Billed Treatment Time 1 visit ADL x3 (45 min) EX x2 (30 min) Kiley Pena OT Oct 11, 2021 08:34
--- NOTE | 2021-10-11 09:40 | Speech Therapy Daily Note ---
Speech Daily Progress Note Subjective Date Seen by Provider: Oct 11, 2021 Time Seen by Provider: 09:00 The patient was seated upright in his recliner, awake and alert upon entrance to his room by the clinician. The patient greeted the clinician appropriately and was agreeable to participation in the cognitive linguistic treatment session. The patient does continue to request or make comments regarding his pain medication and breathing treatments. Per chart review, the patient is not due for his pain medication at this time. Objective The patient completed the SLUMS for comparison to admission data (09/29). On this date, the patient displayed a result of +18/30 correlating to a result of "dementia" per SLUMS protocol. Upon admission, the patient displayed a result of +12/30. While the patient has displayed improvement of six points, the patient continues to remain in the category of "dementia," displaying moderate cognitive deficits (most notably in the areas of memory). With category cues, the patient was able to recall three of five single words. The patient continues to required maximum redirection to topic throughout the treatment session, stating he is "getting his life right" and is "D, O, N, E, done with alcohol." Assessment Assessment Current Status: Fair Progress Treatment Plan Continue Plan of Care Speech Short Term Goals Short Term Goals Short Term Goals 1. The patient will demonstrated 75% accuracy with memory exercises with mild clinician verbal and visual cueing. Time Frame-STG: One Week. Speech Snf Goals Cider Maker Goals 1. The patient will improve his cognitive linguistic skills for safe discharge to the least restrictive environment. Time Frame: Two Weeks. Speech-Plan Treatment Plan Speech Therapy Treatment Plan: Continue Plan of Care Treatment Duration: Oct 13, 2021 Frequency: 4 times per week (Four to five times per week.) Estimated Hrs Per Day: .5 hour per day Rehab Potential: Poor Safety Risks/Education Teaching Recipient: Patient Teaching Methods: Demonstration, Discussion Response to Teaching: Unable to Comprehend Education Topics Provided: Internal Memory Strategies Time Speech Therapy Time In: 09:00 Speech Therapy Time Out: 09:30 Total Billed Time: 30 Billed Treatment Time José Manuel MAVIS JEFFERS Oct 11, 2021 09:40
[2021-10-11] MEDS: morphine IMMEDIATE RELEASE 15 MG TABLET PO PRN ×3 (10:03→18:57)
--- NOTE | 2021-10-11 12:08 | Physical Therapy Daily Note ---
PT Daily Note-Current Subjective Pt sitting in recliner upon arrival. Pt agrees to PT. Pain Numeric Pain Scale: 6 Location: Right, Incisional Location Body Site: Hip Pain Description: Ache Mental Status Patient Orientation: Person, Place, Time Attachments: Oxygen (2L) Transfers SCALE: Activities may be completed with or without assistive devices. 0-Xqbtxdjvxi-nxcncpl completes the activity by him/herself with no assistance from a helper. 5-Set-up or Clean-up Assistance-helper sets up or cleans up; patient completes activity. [place] assists only prior to or following the activity. 4-Supervision or Touching Assistance-helper provides verbal cues and/or touching/steadying and/or contact guard assistance as patient completes activity. Assistance may be provided throughout the activity or intermittently. 3-Partial/Moderate Assistance-helper does LESS THAN HALF the effort. [place] lifts, holds or supports trunk or limbs, but provides less than half the effort. 2-Substantial/Maximal Assistance-helper does MORE THAN HALF the effort. [place] lifts or holds trunk or limbs and provides more than half the effort. 9-Ihpidsbig-egxvat does ALL the effort. Patient does none of the effort to complete the activity. Or, the assistance of 2 or more helpers is required for the patient to complete the activity. If activity was not attempted, code reason: 7-Patient Refused. 9-Not Applicable-not attempted and the patient did not perform the activity before the current illness, exacerbation or injury. 10-Not Attempted due to Environmental Limitations-(lack of equipment, weather restraints, etc.). 88-Not Attempted due to Medical Conditions or Safety Concerns. Sit to Stand (QC): 4 Toilet Transfer (QC): 4 Weight Bearing Right Lower Extremity: Right Weight Bearing/Tolerated Left Lower Extremity: Left Full Weight Bearing Gait Training Does the Patient Walk?: Yes Distance: 150' Walk 10 feet (QC): 5 Walk 50 ft with 2 Turns(QC): 4 Walk 150 ft (QC): 4 Gait Persons Needed: 1 Gait Assistive Device: FWW Stair Training Stair Training: Handrails/: 2 handrails #of Steps: 2 1 Step (curb) (QC): 4 Stairs: Pattern: Step to Exercises Supine Ex: Ankle pumps, Quad Set, Glut sets, Heel Slides, Hip abd/add Supine Reps: 15 Treatments [id number]: TF to standing and uses BR. Pt amb. in hallway with multiple RB. Pt completes 2 steps w/instruction for sequencing & problem solving. Pt returns to room to rest in recliner with B LE reclined. All needs met, call light in hand. [id number]: Pt completes Supine EX in bed due to reported pain in R hip. Nurse aware and gives pain med. Pt resting w/all needs met, call light in hand. Assessment Current Status: Fair Progress Pt remains hyperfocused on when pain med. & breathing tx is next available. Redirection needed often. PT [facility] Goals Pharmaceutical Laboratory Technician Goals PT Pharmaceutical Laboratory Technician Goals Time Frame: Oct 22, 2021 Roll Left & Right (QC): 4 Sit to Lying (QC): 4 Lying-Sitting on Side/Bed(QC): 4 Sit to Stand (QC): 4 Chair/Umn-ze-Sdjyy Xfer(QC): 4 Toilet Transfer (QC): 4 Car Transfer (QC): 4 Does the Patient Walk: Yes Walk 10 feet (QC): 4 Walk 50ft with 2 Turns (QC): 4 Walk 150 ft (QC): 3 Walking 10ft on Uneven Surface: 4 1 Step (curb) (QC): 3 4 Steps (QC): 3 12 Steps (QC): 3 Picking up an Object (QC): 4 Does the Pt use WC or Scooter?: No Wheel 50 feet with 2 turns (QC: 9 Wheel 150 feet: 9 PT Plan Problem List Problem List: Activity Tolerance, Safety Treatment/Plan Treatment Plan: Continue Plan of Care Treatment Plan: Bed Mobility, Education, Functional Activity Yoanna, Functional Strength, Group Therapy, Gait, Safety, Therapeutic Exercise, Transfers Treatment Duration: Nov 05, 2021 Frequency: At least 5 of 7 days/Wk (IRF) Estimated Hrs Per Day: 1.5 hours per day Patient and/or Family Agrees t: Yes Safety Risks/Education Patient Education: Gait Training, Steps, Correct Positioning, Safety Issues Teaching Recipient: Patient Teaching Methods: Discussion Response to Teaching: Verbalize Understanding Time/GCodes Time In: 1000 Time Out: 1100 Total Billed Treatment Time: 60 Total Billed Treatment [id number]: 1, GT x2 (30m) & FA x2 (30m) [id number]: 1, EX (15m) JOSE DU PTA Oct 11, 2021 12:08
[2021-10-11 20:00] VITALS: BP 122/77
[2021-10-12] MEDS: RT-ALBUTEROL/IPRATROPIUM 3 ML (DUONEB) VIAL INH SCH ×6 (02:56→21:56)
[2021-10-12] MEDS: morphine IMMEDIATE RELEASE 15 MG TABLET PO PRN ×2 (07:22→12:31)
[2021-10-12 07:33] VITALS: BP 155/82
[2021-10-12] MEDS: FOLIC ACID 1 MG TAB PO SCH (08:31)
[2021-10-12] MEDS: DOCUSATE SODIUM 100 MG (COLACE) CAP PO SCH ×2 (08:31→20:17)
[2021-10-12] MEDS: meTOprolol TARTRATE 25 MG (LOPRESSOR) TABLET PO SCH ×2 (08:31→20:17)
[2021-10-12] MEDS: CLOPIDOGREL 75 MG (PLAVIX) TABLET PO SCH (08:31)
[2021-10-12] MEDS: guaiFENesin (MUCINEX) 600 MG TAB PO SCH ×2 (08:31→20:17)
[2021-10-12] MEDS: morphine ER 15 MG (MS CONTIN) TAB PO SCH ×2 (08:31→20:17)
[2021-10-12] MEDS: amLODIPine 5 MG (NORVASC) TAB PO SCH (08:31)
[2021-10-12] MEDS: APIXABAN 5 MG (ELIQUIS) TABLET PO SCH ×2 (08:31→20:17)
[2021-10-12] MEDS: SENNA W/DOCUSATE (SENOKOT S) TABLET PO SCH ×2 (08:31→20:17)
[2021-10-12] MEDS: polyethylene glycoL POWDER 17 GM (MIRALAX) PACK PO SCH ×2 (08:31→19:52)
--- NOTE | 2021-10-12 08:58 | Speech Therapy Daily Note ---
Speech Daily Progress Note Subjective Date Seen by Provider: Oct 12, 2021 Time Seen by Provider: 08:30 The patient was seated upright in his bed, awake and alert upon entrance to his room by the clinician. The patient greeted the clinician appropriately and was agreeable to participation in the cognitive linguistic treatment session. Objective The patient completed recall of three to four elements in a recently read aloud paragraph. The patient displayed 20% accuracy, independently. With repetition of the information, the patient increased accuracy to 100%. The clinician discussed the importance of the internal memory strategy, demonstrating to the patient his increased accuracy when repetition was provided. The patient independently completed the strategy by reading a bible verse to the clinician. The patient initially read the verse and closed his bible. The patient went to repeat the verse aloud, however, was unable. Independently, the patient opened his bible and repeated the verse two times to aid in recall. Assessment Assessment Current Status: Fair Progress Treatment Plan Continue Plan of Care Speech Short Term Goals Short Term Goals Short Term Goals 1. The patient will demonstrated 75% accuracy with memory exercises with mild clinician verbal and visual cueing. Time Frame-STG: One Week. Speech Prison Goals Prison Goals 1. The patient will improve his cognitive linguistic skills for safe discharge to the least restrictive environment. Time Frame: Two Weeks. Speech-Plan Treatment Plan Speech Therapy Treatment Plan: Continue Plan of Care Treatment Duration: Oct 13, 2021 Frequency: 4 times per week (Four to five times per week.) Estimated Hrs Per Day: .5 hour per day Rehab Potential: Poor Safety Risks/Education Teaching Recipient: Patient Teaching Methods: Discussion Response to Teaching: Return Demonstration Education Topics Provided: Internal Memory Strategies Time Speech Therapy Time In: 08:30 Speech Therapy Time Out: 09:00 Total Billed Time: 30 Billed Treatment Time 1ROWENA ELIZ[facility] ST Oct 12, 2021 08:58
[2021-10-12] MEDS ORDERED: ARTIFICAL TEARS 0.4 ML UNIT DOSE (REFRESH PLUS) OU PRN (10:15)
--- NOTE | 2021-10-12 10:37 | Occupational Ther Daily Note ---
OT Current Status-Daily Note Subjective Pt complaining of needing a breathing treatment throughout entire session. OT notified RN. Requires significant encouragement to participate in adls, despite being "ok" with doing a shower when therapist reminded him of it at 0730. Co-treat with PT for part of treatment ([id number]) secondary to increased anxi ety, poor activity tolerance, high oxygen needs, and need of 2 skilled clinicians to progress indep and safety with adls and functional mobility. Appearance Pt left sitting in recliner with physical therapy present at OT departure. Mental Status/Objective Patient Orientation: Person, Confused Attachments: Oxygen (4L) ADL-Treatment Therapy Code Descriptions/Definitions Functional [place] Measure: 0=Not Assessed/NA 4=Minimal Assistance 1=Total Assistance 5=Supervision or Setup 2=Maximal Assistance 6=Modified [place] 3=Moderate Assistance 7=Complete IndependenceSCALE: Activities may be completed with or without assistive devices. 0-Symesnfqrt-pklbqxi completes the activity by him/herself with no assistance from a helper. 5-Set-up or Clean-up Assistance-helper sets up or cleans up; patient completes activity. [place] assists only prior to or following the activity. 4-Supervision or Touching Assistance-helper provides verbal cues and/or t ouching/steadying and/or contact guard assistance as patient completes activity. Assistance may be provided throughout the activity or intermittently. 3-Partial/Moderate Assistance-helper does LESS THAN HALF the effort. [place] lifts, holds or supports trunk or limbs, but provides less than half the effort. 2-Substantial/Maximal Assistance-helper does MORE THAN HALF the effort. [place] lifts or holds trunk or limbs and provides more than half the effort. 9-Vpuvytqmb-bbyjcc does ALL the effort. Patient does none of the effort to complete the activity. Or, the assistance of 2 or more helpers is required for the patient to complete the activity. If activity was not attempted, code reason: 7-Patient Refused. 9-Not Applicable-not attempted and the patient did not perform the activity before the current illness, exacerbation or injury. 10-Not Attempted due to Environmental Limitations-(lack of equipment, weather restraints, etc.). 88-Not Attempted due to Medical Conditions or Safety Concerns. Eating (QC): 6 Shower/Bathe Self (QC): 4 Upper Body Dressing (QC): 4 Lower Body Dressing (QC): 4 On/Off Footwear: 4 (Dep for zaida hose, SBA for shoes) Toileting Hygiene (QC): 4 Toilet Transfer (QC): 4 Shower performed; 100% completed in sitting (on commode). Hip dressing covered by OT prior to task. C/D/I post activity. Pt verbalizing significant pain and difficulty breathing this date. Requires extensive encouragement to participate in adls. Oxygen remains >95%. Reminder to use LHS when washing LB as pt impulsively bends at waist and then c/o increased pain in hip. He was able to wash buttocks while leaning side to side and anteriorly. Clothing donned at w/c level. No cue needed to initiate use of needle straightener for LB dressing this date. Supervision for safety as he stood to manage clothing up to waist. Dependent to don zaida hose. Pt will initiate several very lengthy rest breaks during adls secondary to c/o SOA. Longer breaks required for recovery this date. Other Treatment PT/OT goal to complete consecutive sit<>stands to work on endurance, breathing techniques, activity tolerance, and strengthening needed for functional tasks. Pt able to stand with SBA but only able to complete 1 sit<>stand before initiating a rest break. Pt refuses to stand again until he catches his breath. Each recovery time requires at least 5 minutes. Pt encouraged to push through but refuses. Education OT Patient Education: Correct positioning, Energy conservation, Modified ADL techniques, Progress toward Goal/Update tx plan, Purpose of tx/functional activities, Reviewed precautions, Rehab process, Safety issues, Transfer techniques, Use of adapted equipment, W/C management Teaching Recipient: Patient Teaching Methods: Discussion Response to Teaching: Verbalize Understanding, Return Demonstration, Reinforcement Needed OT Short Term Goals Short Term Goals Time Frame: Oct 14, 2021 Eatin Oral hygiene: 5 Toileting hygiene: 2 Shower/bathe self: 2 Upper body dressin Lower body dressin Putting on/taking off footwear: 2 OT Apiarist Goals Shelter Goals Time Frame: Oct 29, 2021 Eating (QC): 6 Oral Hygiene (QC): 6 Toileting Hygiene (QC): 4 Shower/Bathe Self (QC): 4 Upper Body Dressing (QC): 4 Lower Body Dressing (QC): 4 On/Off Footwear (QC): 4 1=Demonstrate adherence to instructed precautions during ADL tasks. 2=Patient will verbalize/demonstrate understanding of assistive devices/modifications for ADL. 3=Patient will improve strength/tolerance for activity to enable patient to perform ADL's. OT Education/Plan Problem List/Assessment Assessment: Decreased Activ Tolerance, Decreased Safety Aware, Decreased UE Strength, Impaired Cognition, Impaired Funct Balance, Impaired I ADL's, Impaired Self-Care Skills Discharge Recommendations Plan/Recommendations: Continue POC Therapy Discharge Recommendati: Post Acute OT Comment If patient returns home, he will require assist and/or 03/10 supervision with management of meds. Pt often is forgetful on when pain meds were given and is likely to abuse medication. Pt may be safer to discharge to a skilled facility for pain/medication management and to further increase safety with adls and transfers. Treatment Plan/Plan of Care Treatment,Training & Education: Yes Patient would benefit from OT for education, treatment and training to promote independence in ADL's, mobility, safety and/or upper extremity function for ADL's. Plan of Care: ADL Retraining, Caregiver Training, Functional Mobility, Group Exercise/Act as Ind, UE Funct Exercise/Act, W/C Management Training Treatment Duration: Oct 29, 2021 Frequency: Modified Program (IRF) (24/09) Estimated Hrs Per Day: 1.5 hours per day (75-90 min/day ) Agreement: Yes Rehab Potential: Poor Time/GCodes Start Time: 09:30 Stop Time: 10:45 Total Time Billed (hr/min): 75 Billed Treatment Time 1 visit ADL x4 (55 min) FA (20 min) Kiley Pena OT Oct 12, 2021 10:37
--- NOTE | 2021-10-12 11:13 | Progress Note ---
MARKOS LINARES 10/12/21 1113: Progress Note HPI: Luis Armando Fairbanks is a 70yo M with past medical history significant for CAD, CABG, HTN, mixed HLD, COPD, and known alcoholic with recent h/o new AF who presented to the ER following a fall while intoxicated and was found to have a right hip fracture which has been repaired by Dr Johns. He was admitted to the ICU where he stayed for 4 days. Alcohol withdrawal protocol was maintained and pain controlled. He has anemia due to acute blood loss that is being monitored. He has been receiving electrolyte and vitamin supplementation. He is POD#17 and medically stable and continues to work with PT/OT. Pt expresses mild pain in Rt LE and concerns of independence upon discharge. PMH: CAD CABG HTN mixed HLD GERD Esophageal Varicies Alcohol abuse Paroxysmal A fibb. COPD Xeropthalmia PSH: Closed Rt Hip fx repair All: no known drug allergies Meds: Carboxymethylcellulose Sodium 1 drop/eye PRN Morphine Sulfate 30mg tab PO Q4H PRN Mucinex tablet 600mg PO BID Folic Acid: 1mg PO daily Plavix 75mg PO daily Metoprolol 25mg BID PO Docusate sodium 100mg BID Senna 1 tab BID Albuterol/Ipratropium 3 mL RTQ4HR FH: Father: NC Brother: CAD Mother : Gout SH: , Retired, former smoker, chronic alcoholism (15-20yrs) ROS: Negative for chest pain, N/V, diarrhea, or lightheadedness Positive for weakness, malaise, SOB, and mild constipation Vitals: T 36.8, BP 152/82, P 70, PO2 99% on 2L nasal O2 PE: General: Pt appeared in mild distress with SOB upon conversation and anxious about discharge Cardiac: HRRR upon auscultation, no murmurs, normal S1 and S2 Pulm: Prolonged expiratory wheezes B/L, cough present upon deep inhalation MSK: moderate pain along lateral side of Rt LE upon palpation, 1+ edema in rt calf GI: poor appetite in morning, mild constipation Labs: CBC (10/11/2021): Hb 9.2, Plts 507 CMP: BUN 6, Glucose 112 A/P: 1) Right Hip Fracture * POD#17 s/p intramedullary nailing * Continue pain control * Continue daily compression stockings * PT/OT 2) Alcohol Abuse * Continue to monitor electrolytes * Continue folic acid supplementation * Continue to monitor for signs of withdrawal 3) Anemia * Continue to monitor Hgb * Obtain folic acid level 4) Acute exacerbation of COPD * Continue nasal 2L O2 * Start Albuterol/Ipratropium inhaler * Oral steroids if SOB continues to worsen 5)Xeropthalmia * Continue eye drops B/L PRN * Continue to monitor for any worsening vision changes 6)Anxiety * Reassess with OT/PT on current state of independence * Reassure at-home plan addressing mobility and pain medications for discharge on 10/14/2021 HAFSA JUDGE DO 10/12/212050: Supervisory-Addendum Brief Verification & Attestation Participated in pt care: history, MDM, physical Personally performed: exam, history, MDM, supervision of care Care discussed with: Medical Student Procedures: n/a Results interpretation: Verified all documentation Verification and Attestation of Medical Student E/M Service A medical student performed and documented this service in my presence. I reviewed and verified all information documented by the medical student and made modifications to such information, when appropriate. I personally performed the physical exam and medical decision making. Hafsa Judge, Oct 12, 2021,20:51 MARKOS LINARES Oct 12, 2021 11:13 HAFSA JUDGE DO Oct 12, 2021 20:51
--- NOTE | 2021-10-12 11:55 | Physical Therapy Daily Note ---
PT Daily Note-Current Subjective Pt sitting in [facility] after just finishing shower upon arrival. Co-treat with OT for part of treatment ([id number]) secondary to increased anxiety, poor activity tolerance, high oxygen needs, and need of 2 skilled clinicians to progress indep and safety with adls and functional mobility. Pt complaining of needing a breathing treatment throughout entire session. Pain Numeric Pain Scale: 4 Location: Right Location Body Site: Hip Pain Description: Ache Comment: Reports pain w/movement Mental Status Patient Orientation: Person, Confused, Place Attachments: Oxygen Transfers SCALE: Activities may be completed with or without assistive devices. 6-Wstcfnibzn-rfgvtte completes the activity by him/herself with no assistance from a helper. 5-Set-up or Clean-up Assistance-helper sets up or cleans up; patient completes activity. [place] assists only prior to or following the activity. 4-Supervision or Touching Assistance-helper provides verbal cues and/or touching/steadying and/or contact guard assistance as patient completes activity. Assistance may be provided throughout the activity or intermittently. 3-Partial/Moderate Assistance-helper does LESS THAN HALF the effort. [place] lifts, holds or supports trunk or limbs, but provides less than half the effort. 2-Substantial/Maximal Assistance-helper does MORE THAN HALF the effort. [place] lifts or holds trunk or limbs and provides more than half the effort. 9-Phfcjqlse-jycsjp does ALL the effort. Patient does none of the effort to complete the activity. Or, the assistance of 2 or more helpers is required for the patient to complete the activity. If activity was not attempted, code reason: 7-Patient Refused. 9-Not Applicable-not attempted and the patient did not perform the activity before the current illness, exacerbation or injury. 10-Not Attempted due to Environmental Limitations-(lack of equipment, weather restraints, etc.). 88-Not Attempted due to Medical Conditions or Safety Concerns. Sit to Stand (QC): 4 Weight Bearing Right Lower Extremity: Right Weight Bearing/Tolerated Left Lower Extremity: Left Full Weight Bearing Gait Training Does the Patient Walk?: Yes Distance: 5' Gait Persons Needed: 1 Gait Assistive Device: FWW Exercises Seated Therapy Exercises: Sit to stand Seated Reps: 1 Treatments PT/OT goal to complete consecutive sit<>stands to work on endurance, breathing techniques, activity tolerance, and strengthening needed for functional tasks. Pt able to stand with SBA but only able to complete 1 sit<>stand before initiating a rest break. Pt refuses to stand again until he catches his breath. Each recovery time requires at least 5 minutes. Pt encouraged to push through but refuses. OT departs and PT works with pt on Seated Ex. Pt resting in recliner at end of tx with all needs met, call light in hand. Assessment Current Status: Fair Progress Longer breaks and more frequent need required for recovery this date. PT Casing Inspector Goals Casing Inspector Goals PT Casing Inspector Goals Time Frame: Oct 22, 2021 Roll Left & Right (QC): 4 Sit to Lying (QC): 4 Lying-Sitting on Side/Bed(QC): 4 Sit to Stand (QC): 4 Chair/Rvv-ml-Lkcfr Xfer(QC): 4 Toilet Transfer (QC): 4 Car Transfer (QC): 4 Does the Patient Walk: Yes Walk 10 feet (QC): 4 Walk 50ft with 2 Turns (QC): 4 Walk 150 ft (QC): 3 Walking 10ft on Uneven Surface: 4 1 Step (curb) (QC): 3 4 Steps (QC): 3 12 Steps (QC): 3 Picking up an Object (QC): 4 Does the Pt use WC or Scooter?: No Wheel 50 feet with 2 turns (QC: 9 Wheel 150 feet: 9 PT Plan Problem List Problem List: Activity Tolerance Treatment/Plan Treatment Plan: Continue Plan of Care Treatment Plan: Bed Mobility, Education, Functional Activity Yoanna, Functional Strength, Group Therapy, Gait, Safety, Therapeutic Exercise, Transfers Treatment Duration: Nov 05, 2021 Frequency: At least 5 of 7 days/Wk (IRF) Estimated Hrs Per Day: 1.5 hours per day Patient and/or Family Agrees t: Yes Time/GCodes Time In: 1000 Time Out: 1100 Total Billed Treatment Time: 60 Total Billed Treatment Co-treat w/OT for 45m ([id number]) 1, FA x2 (35m) & EX x2 (25m) JOSE DU S[employer]SEL [employer] Oct 12, 2021 11:55
--- NOTE | 2021-10-12 15:31 | Physical Therapy Daily Note ---
PT Daily Note-Current Subjective Pt sitting up in bed asleep upon arrival. Pt had jsut received breathing tx as SANDSTONE INSPECTOR REPAIRER enters room & had pain med 2 hrs previous to tx. Pt remains confused about how long before these can be given again. Pain Numeric Pain Scale: 3 Location: Right Location Body Site: Hip Pain Description: Ache Mental Status Patient Orientation: Person, Confused Attachments: Oxygen Transfers SCALE: Activities may be completed with or without assistive devices. 0-Etymdvkdzb-cevvmej completes the activity by him/herself with no assistance from a helper. 5-Set-up or Clean-up Assistance-helper sets up or cleans up; patient completes a ctivity. [place] assists only prior to or following the activity. 4-Supervision or Touching Assistance-helper provides verbal cues and/or touching/steadying and/or contact guard assistance as patient completes activity. Assistance may be provided throughout the activity or intermittently. 3-Partial/Moderate Assistance-helper does LESS THAN HALF the effort. [place] lifts, holds or supports trunk or limbs, but provides less than half the effort. 2-Substantial/Maximal Assistance-helper does MORE THAN HALF the effort. [place] lifts or holds trunk or limbs and provides more than half the effort. 7-Qdsfgjjnl-dzdtwj does ALL the effort. Patient does none of the effort to complete the activity. Or, the assistance of 2 or more helpers is required for the patient to complete the activity. If activity was not attempted, code reason: 7-Patient Refused. 9-Not Applicable-not attempted and the patient did not perform the activity before the current illness, exacerbation or injury. 10-Not Attempted due to Environmental Limitations-(lack of equipment, weather restraints, etc.). 88-Not Attempted due to Medical Conditions or Safety Concerns. Weight Bearing Right Lower Extremity: Right Weight Bearing/Tolerated Left Lower Extremity: Left Full Weight Bearing Treatments Pt again asks when pain med can be given and will he go home with medicine upon d/c in a couple days. Pt concerned with weaning off pain med so he won't be addicted to medicine. Pt resting at end of tx. All needs met, call light in hand. Assessment Current Status: Fair Progress Pt is hyperfocused on pain medicine. PT Long-Term Goals Long-Term Goals PT Long-Term Goals Time Frame: Oct 22, 2021 Roll Left & Right (QC): 4 Sit to Lying (QC): 4 Lying-Sitting on Side/Bed(QC): 4 Sit to Stand (QC): 4 Chair/Vwn-tu-Lisqx Xfer(QC): 4 Toilet Transfer (QC): 4 Car Transfer (QC): 4 Does the Patient Walk: Yes Walk 10 feet (QC): 4 Walk 50ft with 2 Turns (QC): 4 Walk 150 ft (QC): 3 Walking 10ft on Uneven Surface: 4 1 Step (curb) (QC): 3 4 Steps (QC): 3 12 Steps (QC): 3 Picking up an Object (QC): 4 Does the Pt use WC or Scooter?: No Wheel 50 feet with 2 turns (QC: 9 Wheel 150 feet: 9 PT Plan Treatment/Plan Treatment Plan: Continue Plan of Care Treatment Plan: Bed Mobility, Education, Functional Activity Yoanna, Functional Strength, Group Therapy, Gait, Safety, Therapeutic Exercise, Transfers Treatment Duration: Nov 05, 2021 Frequency: At least 5 of 7 days/Wk (IRF) Estimated Hrs Per Day: 1.5 hours per day Patient and/or Family Agrees t: Yes Time/GCodes Time In: 1415 Time Out: 1430 Total Billed Treatment Time: 15 Total Billed Treatment 1, FA (15m) JOSE DU SANDSTONE INSPECTOR REPAIRER Oct 12, 2021 15:31
[2021-10-12 20:00] VITALS: BP 123/77
[2021-10-12] MEDS: LORazepam 0.5 MG (ATIVAN) TABLET PO PRN (20:17)
--- NOTE | 2021-10-12 20:36 | PM&R Progress Note ---
Subjective HPI/CC On Admission Date Seen by Provider: Oct 12, 2021 Time Seen by Provider: 10:00 Subjective/Events-last exam 10/12/2021: Doing well Pain improved O2 at 2L/min Hesitant about DC 10/11/2021: Patient doing a lot better Pain is controlled Supportive care continues 2 L of oxygen maintain as his home level 10/10/2021: Doing well Minimal pain medication now Using incentive spirometer No falls 10/09/2021: Patient doing well No pain is reported other than his usual Doing well with incentive spirometer 10/08/2021: Patient doing well No concerns at this point Sleeping well at night 10/07/2021: Doing much better Constantly complaining of pain which is out of proportion to his injury now a week out of surgery Maintained on oxygen 10/06/2021: Doing better 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 Pain improved Less pain meds taken overall 10/05/2021: Doing better every day Lungs clear BM regimen successful Monitor closely 10/04/2021: Pt is doing well Hemoglobin is 9.0 Drainage from the incision is less Sodium level is 130 10/03/2021: Doing much better Lungs remain clear O2 is at 3L/min at home Labs due tomorrow Pain improved 10/02/2021: Doing better Pain is an issue Checked meds and labs 10/01/2021: Pt requiring pain medication changes Overall having no significant other issues Morphine extended release and immediate release and discontinue Oxycodone and Morphine IV Soap suds enema will be given since he hasn't had a BM for 6 days 09/30/2021: Patient settling in well Pain is improved Hypoxia noted Hgb 7.8 and dyspnea noted and cardiac dysfunction noted so will transfuse O2 maintained BM need to move Nebs ordered Review of Systems General: Fatigue, Malaise Objective Exam Vital Signs Vital Signs Date Time Temp Pulse Resp B/P (MAP) Pulse Ox O2 Delivery O2 Flow Rate FiO2 10/12/21 18:32 97 Nasal Cannula 2.00 10/12/21 07:33 36.8 70 18 155/82 (106) 10/10/21 07:08 32 Capillary Refill : General Appearance: No Apparent Distress, WD/WN, Anxious, Chronically ill HEENT: PERRL/EOMI, Normal ENT Inspection, Pharynx Normal Neck: Full Range of Motion, Normal Inspection, Non Tender, Supple, Carotid Bruit Respiratory: Chest Non Tender, Lungs Clear, No Accessory Muscle Use, No Respiratory Distress, Decreased Breath Sounds Cardiovascular: No Edema, No Gallop, No JVD, No Murmur, Normal Peripheral Pulses, Irregularly Irregular, Tachycardia Gastrointestinal: Normal Bowel Sounds, No Organomegaly, No Pulsatile Mass, Non Tender, Soft Back: Normal Inspection, No CVA Tenderness, No Vertebral Tenderness Extremity: Normal Capillary Refill, Normal Inspection, Normal Range of Motion, Non Tender, No Calf Tenderness, No Pedal Edema Neurologic/Psychiatric: Alert, No Motor/Sensory Deficits, Normal Mood/Affect, Abnormal Gait, Disoriented, Motor Weakness Skin: Normal Color, Warm/Dry Lymphatic: No Adenopathy Results/Procedures Lab Patient resulted labs reviewed. FIM Transfers Therapy Code Descriptions/Definitions Functional [place] Measure: 0=Not Assessed/NA 4=Minimal Assistance 1=Total Assistance 5=Supervision or Setup 2=Maximal Assistance 6=Modified [place] 3=Moderate Assistance 7=Complete IndependenceSCALE: Activities may be completed with or without assistive devices. 3-Llnvkbbplm-zttjgte completes the activity by him/herself with no assistance from a helper. 5-Set-up or Clean-up Assistance-helper sets up or cleans up; patient completes activity. [place] assists only prior to or following the activity. 4-Supervision or Touching Assistance-helper provides verbal cues and/or touching/steadying and/or contact guard assistance as patient completes activity. Assistance may be provided throughout the activity or intermittently. 3-Partial/Moderate Assistance-helper does LESS THAN HALF the effort. [place] lifts, holds or supports trunk or limbs, but provides less than half the effort. 2-Substantial/Maximal Assistance-helper does MORE THAN HALF the effort. [place] lifts or holds trunk or limbs and provides more than half the effort. 8-[place]pjckfcnz-[place] does ALL the effort. Patient does none of the effort to complete the activity. Or, the assistance of 2 or more helpers is required for the patient to complete the activity. If activity was not attempted, code reason: 7-Patient Refused. 9-Not Applicable-not attempted and the patient did not perform the activity before the current illness, exacerbation or injury. 10-Not Attempted due to Environmental Limitations-(lack of equipment, weather restraints, etc.). 88-Not Attempted due to Medical Conditions or Safety Concerns. Roll Left to Right (QC): 4 Sit to Lying (QC): 3 Sit to Stand (QC): 4 Chair/Qkb-yj-Zgnro Xfer(QC): 4 Car Transfer (QC): 2 Gait Training Does the Patient Walk?: Yes Distance: 5' Walk 10 feet (QC): 5 Walk 50 ft with 2 Turns(QC): 4 Walk 150 ft (QC): 4 Walking 10ft/uneven surface-QC: 88 Gait Persons Needed: 1 Gait Assistive Device: FWW Wheelchair Training Does the Pt Use a Wheelchair?: Yes Wheel 50 ft with 2 turns (QC): 4 Wheel 150 ft (QC): 4 Type of Wheelchair: Manual Stair Training Stair Training: Handrails/: 2 handrails #of Steps: 2 1 Step (curb) (QC): 4 4 Steps (QC): 88 12 Steps (QC): 88 Stairs: Pattern: Step to Balance Picking up an Object (QC): 88 ADL-Treatment Eating (QC): 6 Oral Hygiene (QC): 6 Shower/Bathe Self (QC): 4 Upper Body Dressing (QC): 4 Lower Body Dressing (QC): 4 On/Off Footwear (QC): 4 (Dep for zaida hose, SBA for shoes) Toileting Hygiene (QC): 4 Toilet Transfer (QC): 4 Assessment/Plan Assessment and Plan Assess & Plan/Chief Complaint Assessment: Right hip fracture Alcoholism s/p active withdrawal Smoker AF CAD CABG hx Post op anemia from acute blood loss requiring transfusion on 1 unit of blood 09/30/21 Constipation Oxygen dependent 2 L Plan: Monitor closely Louis PATINO soon O2 PT OT with rest breaks 09/30/2021: Transfuse Monitor pain Monitor O2 10/01/2021: Enema Pain med transition to PO 10/02/2021: Pain control Monitor closely 10/03/2021: Monitor hgb Pain control 10/04/2021: Monitor closely 10/05/2021: Monitor BP Fall risk 10/06/2021: Improved status 10/07/2021: Improved status 10/08/2021: Pain control 10/09/2021: Continue bowel regimen 10/10/2021: Supportive care 10/11/2021: Patient doing much better Discharge planning 10/12/2021: DC planned (1) Coronary artery disease without angina pectoris Assessment & Plan: He is not having any angina. He reportedly had a coronary stent around August 2021. He is on clopidogrel and beta-subhash. He is not on aspirin since he takes apixaban for atrial fibrillation. Unclear why he is not on statin medication. I have added a lipid panel to previous labs. (2) Paroxysmal atrial fibrillation Assessment & Plan: He has a reported history of paroxysmal atrial fibrillation. His electrocardiogram from admission shows sinus rhythm. He is on beta-subhash for rate control and apixaban for stroke prophylaxis. There is no indication for telemetry monitoring at this point in time. (3) Primary hypertension Assessment & Plan: Blood pressure has been reasonably controlled with the current medication. (4) Mixed hyperlipidemia Assessment & Plan: He has a history of hyperlipidemia but is not currently on a statin medication. I have added a lipid panel to previous labs. (5) Acute on chronic respiratory failure with hypoxemia Assessment & Plan: Most likely due to his severe underlying chronic obstructive pulmonary disease. He should continue with oxygen. ALEXANDRA JUDGE DO Oct 12, 2021 20:36
[2021-10-13] MEDS: RT-ALBUTEROL/IPRATROPIUM 3 ML (DUONEB) VIAL INH SCH ×6 (02:58→21:27)
[2021-10-13] MEDS: morphine IMMEDIATE RELEASE 15 MG TABLET PO PRN ×4 (03:07→22:02)
[2021-10-13] MEDS ORDERED: AMLO-250 PO (05:57)
[2021-10-13] MEDS ORDERED: MULT-1137 PO (05:57)
[2021-10-13] MEDS ORDERED: MORP-68 PO (05:57)
[2021-10-13] MEDS ORDERED: MORP15TA PO (05:57)
[2021-10-13] MEDS ORDERED: SENN1TAB76 PO (05:57)
--- NOTE | 2021-10-13 05:59 | D/C HH Face to Face Order ---
D/C Face to Face Orders Reconcile Patient Problems Problems Reviewed?: Yes Instructions for Patient [facility], Patient Instructions/FollowUp: PCP 1 week Physician to follow Patient: [place] Discharge Diet for Home: No Restrictions Patient Problems: Hip fracture COPD Patient Data-Allergies,Ht & Wt Patient Allergies: Coded Allergies: No Known Drug Allergies (Unverified , 12/12/17) Height (Feet): 5 Height (Inches): 11.00 Weight (Pounds): 176 Weight (Ounces): 1.6 Home Health Need/Face to Face Date of Face to Face: Oct 13, 2021 Clinical Findings: Generalized weakness and fatigue, Instability, Muscle weakness, Pain with ambulation, Unsteady gait I have seen Pt yyps-st-insh: Yes Discharged To: Home Diagnosis/Conditions: Hip fx Patient is Homebound due to: [place] fall risk due to instabilty, Muscle weakne ss, Pain w/ambulation Homebound Status Due to the above stated illness, injury or surgical procedure (medical condition or diagnosis) and associated clinical findings, the patient is homebound because of his/her inability to leave home except with aid of a supportive device and/or person AND leaving the home requires a considerable and taxing effort or is medically contraindicated. Pt req the following assistanc: [facility] Nursing Orders Home Health Services Order: Nursing Services, Deputy Chief Executive-Evaluate & Treat, Physical Therapy-Evaluate & Treat Certify Stmt I certify that this patient is under my care and that I, a nurse practitioner or a physician; a refinery operator assistant working with me, had a face to face encounter that - meets the physician face to face encounter requirements with this patient as dated. ALEXANDRA JUDGE DO Oct 13, 2021 05:59
--- NOTE | 2021-10-13 06:05 | PM&R Progress Note ---
Subjective HPI/CC On Admission Date Seen by Provider: Oct 13, 2021 Time Seen by Provider: 09:00 Subjective/Events-last exam 10/13/2021: Doing well DC tomorrow Overall terminal clerk is poor but he is doing well and chronically ill senior care 10/12/2021: Doing well Pain improved O2 at 2L/min Hesitant about DC 10/11/2021: Patient doing a lot better Pain is controlled Supportive care continues 2 L of oxygen maintain as his home level 10/10/2021: Doing well Minimal pain medication now Using incentive spirometer No falls 10/09/2021: Patient doing well No pain is reported other than his usual Doing well with incentive spirometer 10/08/2021: Patient doing well No concerns at this point Sleeping well at night 10/07/2021: Doing much better Constantly complaining of pain which is out of proportion to his injury now a week out of surgery Maintained on oxygen 10/06/2021: Doing better 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 Pain improved Less pain meds taken overall 10/05/2021: Doing better every day Lungs clear BM regimen successful Monitor closely 10/04/2021: Pt is doing well Hemoglobin is 9.0 Drainage from the incision is less Sodium level is 130 10/03/2021: Doing much better Lungs remain clear O2 is at 3L/min at home Labs due tomorrow Pain improved 10/02/2021: Doing better Pain is an issue Checked meds and labs 10/01/2021: Pt requiring pain medication changes Overall having no significant other issues Morphine extended release and immediate release and discontinue Oxycodone and Morphine IV Soap suds enema will be given since he hasn't had a BM for 6 days 09/30/2021: Patient settling in well Pain is improved Hypoxia noted Hgb 7.8 and dyspnea noted and cardiac dysfunction noted so will transfuse O2 maintained BM need to move Nebs ordered Review of Systems General: Fatigue, Malaise Pulmonary: Dyspnea, Cough Musculoskeletal: leg pain Objective Exam Vital Signs Vital Signs Date Time Temp Pulse Resp B/P (MAP) Pulse Ox O2 Delivery O2 Flow Rate FiO2 10/13/21 15:01 Nasal Cannula 2.00 10/13/21 10:22 99 10/13/21 07:38 36.6 83 22 150/76 (100) 10/10/21 07:08 32 Capillary Refill : General Appearance: No Apparent Distress, WD/WN, Anxious, Chronically ill HEENT: PERRL/EOMI, Normal ENT Inspection, Pharynx Normal Neck: Full Range of Motion, Normal Inspection, Non Tender, Supple, Carotid Bruit Respiratory: Chest Non Tender, Lungs Clear, No Accessory Muscle Use, No Respiratory Distress, Decreased Breath Sounds Cardiovascular: No Edema, No Gallop, No JVD, No Murmur, Normal Peripheral Pulses, Irregularly Irregular, Tachycardia Gastrointestinal: Normal Bowel Sounds, No Organomegaly, No Pulsatile Mass, Non Tender, Soft Back: Normal Inspection, No CVA Tenderness, No Vertebral Tenderness Extremity: Normal Capillary Refill, Normal Inspection, Normal Range of Motion, Non Tender, No Calf Tenderness, No Pedal Edema Neurologic/Psychiatric: Alert, No Motor/Sensory Deficits, Normal Mood/Affect, Abnormal Gait, Disoriented, Motor Weakness Skin: Normal Color, Warm/Dry Lymphatic: No Adenopathy Results/Procedures Lab Patient resulted labs reviewed. FIM Transfers Therapy Code Descriptions/Definitions Functional [place] Measure: 0=Not Assessed/NA 4=Minimal Assistance 1=Total Assistance 5=Supervision or Setup 2=Maximal Assistance 6=Modified [place] 3=Moderate Assistance 7=Complete IndependenceSCALE: Activities may be completed with or without assistive devices. 6-Zkfhscgfex-zsvurwq completes the activity by him/herself with no assistance from a helper. 5-Set-up or Clean-up Assistance-helper sets up or cleans up; patient completes activity. [place] assists only prior to or following the activity. 4-Supervision or Touching Assistance-helper provides verbal cues and/or touching/steadying and/or contact guard assistance as patient completes activity. Assistance may be provided throughout the activity or intermittently. 3-Partial/Moderate Assistance-helper does LESS THAN HALF the effort. [place] lifts, holds or supports trunk or limbs, but provides less than half the effort. 2-Substantial/Maximal Assistance-helper does MORE THAN HALF the effort. [place] lifts or holds trunk or limbs and provides more than half the effort. 4-Deqbgpwcj-hgdofy does ALL the effort. Patient does none of the effort to complete the activity. Or, the assistance of 2 or more helpers is required for the patient to complete the activity. If activity was not attempted, code reason: 7-Patient Refused. 9-Not Applicable-not attempted and the patient did not perform the activity before the current illness, exacerbation or injury. 10-Not Attempted due to Environmental Limitations-(lack of equipment, weather restraints, etc.). 88-Not Attempted due to Medical Conditions or Safety Concerns. Roll Left to Right (QC): 4 Sit to Lying (QC): 3 Sit to Stand (QC): 4 Chair/Law-rf-[place] Xfer(QC): 4 Car Transfer (QC): 2 Gait Training Does the Patient Walk?: Yes Distance: 5' Walk 10 feet (QC): 5 Walk 50 ft with 2 Turns(QC): 4 Walk 150 ft (QC): 4 Walking 10ft/uneven surface-QC: 88 Gait Persons Needed: 1 Gait Assistive Device: FWW Wheelchair Training Does the Pt Use a Wheelchair?: Yes Wheel 50 ft with 2 turns (QC): 4 Wheel 150 ft (QC): 4 Type of Wheelchair: Manual Stair Training Stair Training: Handrails/: 2 handrails #of Steps: 2 1 Step (curb) (QC): 4 4 Steps (QC): 88 12 Steps (QC): 88 Stairs: Pattern: Step to Balance Picking up an Object (QC): 88 ADL-Treatment Eating (QC): 6 Oral Hygiene (QC): 6 Shower/Bathe Self (QC): 4 Upper Body Dressing (QC): 4 Lower Body Dressing (QC): 4 On/Off Footwear (QC): 4 (Dep for zaida hose, SBA for shoes) Toileting Hygiene (QC): 4 Toilet Transfer (QC): 4 Assessment/Plan Assessment and Plan Assess & Plan/Chief Complaint Assessment: Right hip fracture Alcoholism s/p active withdrawal Smoker AF CAD CABG hx Post op anemia from acute blood loss requiring transfusion on 1 unit of blood 09/30/21 Constipation Oxygen dependent 2 L Plan: Monitor closely Louis PATINO soon O2 PT OT with rest breaks 09/30/2021: Transfuse Monitor pain Monitor O2 10/01/2021: Enema Pain med transition to PO 10/02/2021: Pain control Monitor closely 10/03/2021: Monitor hgb Pain control 10/04/2021: Monitor closely 10/05/2021: Monitor BP Fall risk 10/06/2021: Improved status 10/07/2021: Improved status 10/08/2021: Pain control 10/09/2021: Continue bowel regimen 10/10/2021: Supportive care 10/11/2021: Patient doing much better Discharge planning 10/12/2021: DC planned 10/13/2021: Pain controlled Monitor closely (1) Coronary artery disease without angina pectoris Assessment & Plan: He is not having any angina. He reportedly had a coronary stent around August 2021. He is on clopidogrel and beta-subhash. He is not on aspirin since he takes apixaban for atrial fibrillation. Unclear why he is not on statin medication. I have added a lipid panel to previous labs. (2) Paroxysmal atrial fibrillation Assessment & Plan: He has a reported history of paroxysmal atrial fibrillation. His electrocardiogram from admission shows sinus rhythm. He is on beta-subhash for rate control and apixaban for stroke prophylaxis. There is no indication for telemetry monitoring at this point in time. (3) Primary hypertension Assessment & Plan: Blood pressure has been reasonably controlled with the current medication. (4) Mixed hyperlipidemia Assessment & Plan: He has a history of hyperlipidemia but is not currently on a statin medication. I have added a lipid panel to previous labs. (5) Acute on chronic respiratory failure with hypoxemia Assessment & Plan: Most likely due to his severe underlying chronic obstructive pulmonary disease. He should continue with oxygen. ALEXANDRA JUDGE DO Oct 13, 2021 06:05
[2021-10-13 07:38] VITALS: BP 150/76
[2021-10-13] MEDS: DOCUSATE SODIUM 100 MG (COLACE) CAP PO SCH ×2 (08:32→20:10)
[2021-10-13] MEDS: amLODIPine 5 MG (NORVASC) TAB PO SCH (08:32)
[2021-10-13] MEDS: FOLIC ACID 1 MG TAB PO SCH (08:32)
[2021-10-13] MEDS: polyethylene glycoL POWDER 17 GM (MIRALAX) PACK PO SCH ×2 (08:33→19:17)
[2021-10-13] MEDS: CLOPIDOGREL 75 MG (PLAVIX) TABLET PO SCH (08:33)
[2021-10-13] MEDS: APIXABAN 5 MG (ELIQUIS) TABLET PO SCH ×2 (08:33→20:10)
[2021-10-13] MEDS: morphine ER 15 MG (MS CONTIN) TAB PO SCH ×2 (08:33→20:10)
[2021-10-13] MEDS: guaiFENesin (MUCINEX) 600 MG TAB PO SCH ×2 (08:33→20:10)
[2021-10-13] MEDS: SENNA W/DOCUSATE (SENOKOT S) TABLET PO SCH ×2 (08:33→20:10)
[2021-10-13] MEDS: meTOprolol TARTRATE 25 MG (LOPRESSOR) TABLET PO SCH ×2 (08:33→20:10)
--- NOTE | 2021-10-13 09:15 | Speech Therapy Daily Note ---
Speech Daily Progress Note Subjective Date Seen by Provider: Oct 13, 2021 Time Seen by Provider: 08:30 The patient was seated upright in bed, awake and alert upon entrance to his room. The patient greeted the clinician appropriately and was agreeable to participation in the cognitive linguistic treatment session. Objective Upon entrance to the room, the patient stated he was "disoriented" when he woke, reporting he was unaware of his surroundings. As the clinician and patient have frequently worked on external memory and orientation strategies, the clinician reviewed the patient's in-room white board. Initially, the patient stated the month was "April," however, self-corrected stating, "Oh, it's too hot to be April. It's September, no wait, October." Orientation information was discussed from the white board. The clinician additionally discussed the importance of a home calendar or appointment reminders with frequent, daily review. Expression of Ideas/Wants: (3) Understanding Verbal Content: (3) Brief Interview-Mental Status: Yes Repetition of Three Words: Three (3) Temporal Orientation: Year: Correct (3) Temporal Orientation: Month: Accurate within 5 days(2) Temporal Orientation: Day: Correct (1) Recall : Wear to say "Sock": Yes (2) Recall : Color: Yes (2) Recall : Bed: Yes (2) Memory/Recall Ability: That he or she is in a hsp/hsp unit, the current season Assessment Assessment Current Status: Fair Progress Treatment Plan Continue Plan of Care Speech Short Term Goals Short Term Goals Short Term Goals 1. The patient will demonstrated 75% accuracy with memory exercises with mild clinician verbal and visual cueing. Time Frame-STG: One Week. Speech Retirement Goals Animal Care Attendant Goals 1. The patient will improve his cognitive linguistic skills for safe discharge to the least restrictive environment. Time Frame: Two Weeks. Speech-Plan Treatment Plan Speech Therapy Treatment Plan: Discontinue ST Treatment Duration: Oct 13, 2021 Frequency: 4 times per week (Four to five times per week.) Estimated Hrs Per Day: .5 hour per day Rehab Potential: Poor Safety Risks/Education Teaching Recipient: Patient Teaching Methods: Discussion Response to Teaching: Reinforcement Needed Education Topics Provided: Orientation Strategies Time Speech Therapy Time In: 08:30 Speech Therapy Time Out: 09:00 Total Billed Time: 30 Billed Treatment Time 1ROWENA ELIZABETH ST Oct 13, 2021 09:15
--- NOTE | 2021-10-13 09:16 | Therapy Team Discharge Summary ---
Therapy Discharge Summary Discharge Recommendations Date of Discharge Physical Therapy Roll Left to Right (QC): 4 Sit to Lying (QC): 3 Lying to Sitting/Side of Bed(Q: 4 Sit to Stand (QC): 4 Chair/Sbi-en-Mefwk Xfer(QC): 4 Toilet Transfer (QC): 4 Car Transfer (QC): 2 Does the Patient Walk: Yes Mode of Locomotion: Walk Anticipated Mode of Locomotion: Walk Walk 10 feet (QC): 5 Walk 50 ft with 2 Turns(QC): 4 Walk 150 ft (QC): 4 Walking 10ft on uneven surface: 88 Distance: 6 feet Gait Assistive Device: FWW Does the Pt Use a Wheelchair: Yes Wheel 50 ft with 2 turns (QC): 4 Wheel 150 ft (QC): 4 Type of Wheelchair: Manual #of Steps: 2 1 Step (curb) (QC): 4 4 Steps (QC): 88 12 Steps (QC): 88 Balance Sitting Static: Fair Balance Sitting Dynamic: Fair Balance-Standing Static: Poor Picking up an Object (QC): 88 Occupational Therapy Decreased Activ Tolerance, Decreased Safety Aware, Decreased UE Strength, Impaired Cognition, Impaired Funct Balance, Impaired I ADL's, Impaired Self-Care Skills Eating (QC): 6 Oral Hygiene (QC): 6 Shower/Bathe Self (QC): 4 Upper Body Dressing (QC): 4 Lower Body Dressing (QC): 4 On/Off Footwear (QC): 4 (Dep for zaida hose, SBA for shoes) Toileting Hygiene (QC): 4 Speech-Language Pathology Expression of Ideas/Wants: (3) Understanding Verbal Content: (3) Brief Interview-Mental Status: Yes Repetition of Three Words: Three (3) Temporal Orientation: Year: Correct (3) Temporal Orientation: Month: Accurate within 5 days(2) Temporal Orientation: Day: Correct (1) Recall : Wear to say "Sock": Yes (2) Recall : Color: Yes (2) Recall : Bed: Yes (2) Memory/Recall Ability: That he or she is in a hsp/hsp unit, the current season PT Fdc Goals Fdc Goals PT Fdc Goals Time Frame: Oct 22, 2021 Roll Left to Right (QC): 4 Sit to Lying (QC): 4 Lying-Sitting on Side/Bed(QC): 4 Sit to Stand (QC): 4 Chair/Oyx-fa-Qrgnd Xfer(QC): 4 Car Transfer (QC): 4 Does the Patient Walk: Yes Walk 10 feet (QC): 4 Walk 10ft-Uneven Surface(QC): 4 Walk 50ft with 2 Turns (QC): 4 Walk 150 ft (QC): 3 Does the Pt use WC or Scooter?: No Wheel 50 feet with 2 turns (QC: 9 1 Step (curb) (QC): 3 4 Steps (QC): 3 12 Steps (QC): 3 Picking up an Object (QC): 4 OT Fdc Goals Fdc Goals Time Frame: Oct 29, 2021 Eating (QC): 6 Oral Hygiene (QC): 6 Shower/Bathe Self (QC): 4 Upper Body Dressing (QC): 4 Lower Body Dressing (QC): 4 On/Off Footwear (QC): 4 Toileting Hygiene (QC): 4 Toilet/Commode Transfer (QC): 4 1=Demonstrate adherence to instructed precautions during ADL tasks. 2=Patient will verbalize/demonstrate understanding of assistive devices/modifications for ADL. 3=Patient will improve strength/tolerance for activity to enable patient to perform ADL's. Speech Booster Plant Operator Goals Fdc Goals 1. The patient will improve his cognitive linguistic skills for safe discharge to the least restrictive environment. While the patient has displayed mild cognitive improvement, intermittent periods of confusion and disorientation rem ain. The clinician recommends home supervision for increase safety which will be possible per patient's spouse. Time Frame: Two Weeks. MAVIS LOPEZ Oct 13, 2021 09:16
--- NOTE | 2021-10-13 09:49 | Occupational Ther Daily Note ---
OT Current Status-Daily Note Subjective Pt reports pain as 8/10 in R hip. RN informed. Pt consistently asks for pain meds and breathing treatments throughout treatment despite just receiving one. Appearance Pt left sitting in chair, all needs within reach, respiratory therapy in room. Mental Status/Objective Patient Orientation: Person, Confused, Place Attachments: Oxygen (2L) ADL-Treatment Therapy Code Descriptions/Definitions Functional [place] Measure: 0=Not Assessed/NA 4=Minimal Assistance 1=Total Assistance 5=Supervision or Setup 2=Maximal Assistance 6=Modified [place] 3=Moderate Assistance 7=Complete IndependenceSCALE: Activities may be completed with or without assistive devices. 2-Vvndpfpbdw-yrjicpv completes the activity by him/herself with no assistance from a helper. 5-Set-up or Clean-up Assistance-helper sets up or cleans up; patient completes activity. [place] assists only prior to or following the activity. 4-Supervision or Touching Assistance-helper provides verbal cues and/or touching/steadying and/or contact guard assistance as patient completes activity. Assistance may be provided throughout the activity or intermittently. 3-Partial/Moderate Assistance-helper does LESS THAN HALF the effort. [place] lifts, holds or supports trunk or limbs, but provides less than half the effort. 2-Substantial/Maximal Assistance-helper does MORE THAN HALF the effort. [place] lifts or holds trunk or limbs and provides more than half the effort. 0-Sfryotivn-ehaqhd does ALL the effort. Patient does none of the effort to complete the activity. Or, the assistance of 2 or more helpers is required for the patient to complete the activity. If activity was not attempted, code reason: 7-Patient Refused. 9-Not Applicable-not attempted and the patient did not perform the activity b efore the current illness, exacerbation or injury. 10-Not Attempted due to Environmental Limitations-(lack of equipment, weather restraints, etc.). 88-Not Attempted due to Medical Conditions or Safety Concerns. Eating (QC): 6 Oral Hygiene (QC): 6 Lower Body Dressing (QC): 4 On/Off Footwear: 3 (Assist to slide R shoe on this date secondary to pain and difficult lifting foot off floor) Toileting Hygiene (QC): 4 Toilet Transfer (QC): 4 Pt Requests to use toilet at therapy arrival. Slight urine incontinence noted in brief. New brief donned. Extra time needed this date to thread RLE into LB clothing (with recreational therapist) secondary to pain and difficulty lifting foot high enough off the floor. Cues to use UE's to assist. He stood to pull clothing up to his waist with close supervision. Min a needed to slide R foot into shoe, again due to inability to lift foot high enough off the floor. With each day, pt's rest breaks continue to get longer. Pt refuses to do anything further until he gets "some air." Cues for breathing techniques and posture to aid in adequate breathing. He sat to complete oral care, again with significant time as pt will initiate breaks, even when sitting. Other Treatment Pt participated in UE exercises with 2# hand held weight. Focus on improving strength and endurance needed for functional activities. Pt able to complete all movements through full range. He often initiates a rest break after each single UE exercise. Mod cues for improved breathing techniques during exercises. Pt appears to breath easier (less audible/labored breathing) when sitting with good back support. Several reminders to rest trunk onto back of chair. 1x12 all planes. Education OT Patient Education: Correct positioning, Disease process, Energy conservation, Exercise program, Modified ADL techniques, Progress toward Goal/Update tx plan, Purpose of tx/functional activities, Rehab process, Safety issues, Use of adapted equipment Teaching Recipient: Patient Teaching Methods: Demonstration, Discussion Response to Teaching: Verbalize Understanding, Return Demonstration, Reinforcement Needed OT Short Term Goals Short Term Goals Time Frame: Oct 14, 2021 Eatin Oral hygiene: 5 Toileting hygiene: 2 Shower/bathe self: 2 Upper body dressin Lower body dressin Putting on/taking off footwear: 2 OT [facility] Goals [facility] [employer] Goals Time Frame: Oct 29, 2021 Eating (QC): 6 (met) Oral Hygiene (QC): 6 (met) Toileting Hygiene (QC): 4 (met) Shower/Bathe Self (QC): 4 (met) Upper Body Dressing (QC): 4 (met) Lower Body Dressing (QC): 4 (met) On/Off Footwear (QC): 4 (not met, min a) 1=Demonstrate adherence to instructed precautions during ADL tasks. 2=Patient will verbalize/demonstrate understanding of assistive devices/modifications for ADL. 3=Patient will improve strength/tolerance for activity to enable patient to perform ADL's. OT Education/Plan Problem List/Assessment Assessment: Decreased Activ Tolerance, Decreased Safety Aware, Decreased UE Strength, Impaired Cognition, Impaired Funct Balance, Impaired I ADL's, Impaired Self-Care Skills Discharge Recommendations Plan/Recommendations: Continue POC Therapy Discharge Recommendati: Post Acute OT Treatment Plan/Plan of Care Treatment,Training & Education: Yes Patient would benefit from OT for education, treatment and training to promote independence in ADL's, mobility, safety and/or upper extremity function for ADL's. Plan of Care: ADL Retraining, Caregiver Training, Functional Mobility, Group Exercise/Act as Ind, UE Funct Exercise/Act, W/C Management Training Treatment Duration: Oct 29, 2021 Frequency: Modified Program (IRF) (24/09) Estimated Hrs Per Day: 1.5 hours per day (75-90 min/day ) Agreement: Yes Rehab Potential: Poor Time/GCodes Start Time: 09:15 Stop Time: 10:30 Total Time Billed (hr/min): 75 Billed Treatment Time 1 visit ADL x3 (40 min) EX x2 (35 min) Kiley Pena OT Oct 13, 2021 09:49
--- NOTE | 2021-10-13 12:15 | Physical Therapy Daily Note ---
PT Daily Note-Current Subjective Pt sitting in recliner upon arrival. Pt reluctantly agrees to PT and continues to ask for breathing tx & pain medicine even though pt is told its too early for both. Pain medicine was given 1 1/2 hrs before session. Pain Numeric Pain Scale: 8 Location: Right Location Body Site: Hip Pain Description: Ache Mental Status Patient Orientation: Person, Confused Attachments: Oxygen (2L) Transfers SCALE: Activities may be completed with or without assistive devices. 3-Vlrodkuzrz-wriskgj completes the activity by him/herself with no assistance from a helper. 5-Set-up or Clean-up Assistance-helper sets up or cleans up; patient completes activity. [place] assists only prior to or following the activity. 4-Supervision or Touching Assistance-helper provides verbal cues and/or touching/steadying and/or contact guard assistance as patient completes activity. Assistance may be provided throughout the activity or intermittently. 3-Partial/Moderate Assistance-helper does LESS THAN HALF the effort. [place] lifts, holds or supports trunk or limbs, but provides less than half the effort. 2-Substantial/Maximal Assistance-helper does MORE THAN HALF the effort. [place] lifts or holds trunk or limbs and provides more than half the effort. 2-Apyvifbgy-lnftcs does ALL the effort. Patient does none of the effort to complete the activity. Or, the assistance of 2 or more helpers is required for the patient to complete the activity. If activity was not attempted, code reason: 7-Patient Refused. 9-Not Applicable-not attempted and the patient did not perform the activity before the current illness, exacerbation or injury. 10-Not Attempted due to Environmental Limitations-(lack of equipment, weather restraints, etc.). 88-Not Attempted due to Medical Conditions or Safety Concerns. Roll Left & Right (QC): 5 Sit to Lying (QC): 4 Lying to Sitting/Side of Bed(Q: 5 Sit to Stand (QC): 5 Chair/Hex-tv-Mnqiv Xfer(QC): 5 Toilet Transfer (QC): 4 Car Transfer (QC): 4 Weight Bearing Right Lower Extremity: Right Weight Bearing/Tolerated Left Lower Extremity: Left Full Weight Bearing Gait Training Does the Patient Walk?: Yes Distance: 150' Walk 10 feet (QC): 5 Walk 50 ft with 2 Turns(QC): 5 Walk 150 ft (QC): 5 Walking 10ft/uneven surface-QC: 4 Gait Persons Needed: 1 Gait Assistive Device: FWW Pt grunts in an air hungry way throughout walk. VC for Pursed Lip Breathing that pt isn't able to accomplish. Stair Training Stair Training: Handrails/: 2 handrails #of Steps: 4 1 Step (curb) (QC): 4 4 Steps (QC): 4 12 Steps (QC): 7 Stairs: Pattern: Step to Pt refuses to complete more than 4 steps due to perceived fatigue. Balance Picking up an Object (QC): 88 Special Test Comments Pt is unsafe due to balance when bending over so not attempted. Treatments Pt completes QC scoring items listed above. Pt takes frequent RB as pt reports pain and breathing affect tx. Pt returns to room to rest in recliner at end of tx. All needs met, call light in hand. Assessment Current Status: Poor Progress Pt self limits due to pain and perceived fatigue and continually asks for pain medicine & breathing tx even if these were just received. PT Billing Adjudicator Goals Senior Living Goals PT Senior Living Goals Time Frame: Oct 22, 2021 Roll Left & Right (QC): 4 Sit to Lying (QC): 4 Lying-Sitting on Side/Bed(QC): 4 Sit to Stand (QC): 4 Chair/Odf-ge-Npgxx Xfer(QC): 4 Toilet Transfer (QC): 4 Car Transfer (QC): 4 Does the Patient Walk: Yes Walk 10 feet (QC): 4 Walk 50ft with 2 Turns (QC): 4 Walk 150 ft (QC): 3 Walking 10ft on Uneven Surface: 4 1 Step (curb) (QC): 3 4 Steps (QC): 3 12 Steps (QC): 3 Picking up an Object (QC): 4 Does the Pt use WC or Scooter?: No Wheel 50 feet with 2 turns (QC: 9 Wheel 150 feet: 9 PT Plan Problem List Problem List: Activity Tolerance, Functional Strength, Safety Treatment/Plan Treatment Plan: Continue Plan of Care Treatment Plan: Bed Mobility, Education, Functional Activity Yoanna, Functional Strength, Group Therapy, Gait, Safety, Therapeutic Exercise, Transfers Treatment Duration: Nov 05, 2021 Frequency: At least 5 of 7 days/Wk (IRF) Estimated Hrs Per Day: 1.5 hours per day Patient and/or Family Agrees t: Yes Safety Risks/Education Patient Education: Steps, Correct Positioning, Safety Issues Teaching Recipient: Patient Teaching Methods: Discussion Response to Teaching: Reinforcement Needed Time/GCodes Time In: 1100 Time Out: 1200 Total Billed Treatment Time: 60 Total Billed Treatment [id number]: 1, GT (20m) & FA x3 (40m) [id number]: 1, FA (15m) JOSE DU INTERNAL MEDICINE SPECIALIST Oct 13, 2021 12:15
[2021-10-13 19:49] VITALS: BP 114/73
[2021-10-13] MEDS: LORazepam 0.5 MG (ATIVAN) TABLET PO PRN (22:02)
[2021-10-14] MEDS: RT-ALBUTEROL/IPRATROPIUM 3 ML (DUONEB) VIAL INH SCH ×3 (01:50→10:14)
--- NOTE | 2021-10-14 05:46 | Discharge Summary ---
Diagnosis/Chief Complaint Date of Admission Sep 29, 2021 at 11:30 Date of Discharge Discharge Date: Oct 14, 2021 Discharge Diagnosis Assessment: Right hip fracture Alcoholism s/p active withdrawal Smoker AF CAD CABG hx Post op anemia from acute blood loss requiring transfusion on 1 unit of blood 09/30/21 Constipation Oxygen dependent 2 L Plan: Monitor closely [place] DC soon O2 PT OT with rest breaks 09/30/2021: Transfuse Monitor pain Monitor O2 10/01/2021: Enema Pain med transition to PO 10/02/2021: Pain control Monitor closely 10/03/2021: Monitor hgb Pain control 10/04/2021: Monitor closely 10/05/2021: Monitor BP Fall risk 10/06/2021: Improved status 10/07/2021: Improved status 10/08/2021: Pain control 10/09/2021: Continue bowel regimen 10/10/2021: Supportive care 10/11/2021: Patient doing much better Discharge planning 10/12/2021: DC planned 10/13/2021: Pain controlled Monitor closely (1) Coronary artery disease without angina pectoris Assessment & Plan: He is not having any angina. He reportedly had a coronary stent around August 2021. He is on clopidogrel and beta-subhash. He is not on aspirin since he takes apixaban for atrial fibrillation. Unclear why he is not on statin medication. I have added a lipid panel to previous labs. (2) Paroxysmal atrial fibrillation Assessment & Plan: He has a reported history of paroxysmal atrial fibrillation. His electrocardiogram from admission shows sinus rhythm. He is on beta-subhash for rate control and apixaban for stroke prophylaxis. There is no indication for telemetry monitoring at this point in time. (3) Primary hypertension Assessment & Plan: Blood pressure has been reasonably controlled with the current medication. (4) Mixed hyperlipidemia Assessment & Plan: He has a history of hyperlipidemia but is not currently on a statin medication. I have added a lipid panel to previous labs. (5) Acute on chronic respiratory failure with hypoxemia Assessment & Plan: Most likely due to his severe underlying chronic obstructive pulmonary disease. He should continue with oxygen. Discharge Summary Discharge Physical Examination Allergies: Coded Allergies: No Known Drug Allergies (Unverified , 12/12/17) Vitals & I&Os Vital Signs Date Time Temp Pulse Resp B/P (MAP) Pulse Ox O2 Delivery O2 Flow Rate FiO2 10/14/21 11:10 37.0 84 22 111/61 100 Nasal Cannula 2.00 10/10/21 07:08 32 General Appearance: Alert, Oriented X3, Cooperative, Other (chronically ill) Respiratory: Clear to Auscultation Cardiovascular: Regular Rate Psych/Mental Status: Mental Status NL Hospital Course Lengthy course after admitted from ICU due to hip fracture and AF RVR and ETOH withdrawal. Severe COPD O2 dependent on 2L/min at home required close monitoring with Nebs and O2 along with multiple doses of pain meds in order to maintain good pain control. Labs remained stable. Chronic etohism placed him at risk for additional issues but he was DC in improved condition Labs (last 24 hrs) Laboratory Tests 09/30/21 05:17: Iron Level 31L, Total Iron Binding Capacity 167L, Unsaturated Iron Binding Capacity 136, Transferrin % Saturation 19, Ferritin 561.3H, Vitamin B12 Level 591 09/30/21 05:55: White Blood Count 7.9, Red Blood Count 2.25L, Hemoglobin 7.8L, Hematocrit 23L, Mean Corpuscular Volume 103H, Mean Corpuscular Hemoglobin 35H, Mean Corpuscular Hemoglobin Concent 34, Red Cell Distribution Width 15.7H, Platelet Count 185, Mean Platelet Volume 9.4, Immature Granulocyte % (Auto) 1, Neutrophils (%) (Auto) 55, Lymphocytes (%) (Auto) 17, Monocytes (%) (Auto) 22H, Eosinophils (%) (Auto) 4, Basophils (%) (Auto) 1, Neutrophils # (Auto) 4.3, Lymphocytes # (Auto) 1.3, Monocytes # (Auto) 1.8H, Eosinophils # (Auto) 0.3, Basophils # (Auto) 0.0, Immature Granulocyte # (Auto) 0.1, Sodium Level 130L, Potassium Level 3.7, Chloride Level 96L, Carbon Dioxide Level 24, Anion Gap 10, Blood Urea Nitrogen 6L, Creatinine 0.59L, Estimat Glomerular Filtration Rate 104, BUN/Creatinine Ratio 10, Glucose Level 94, Calcium Level 8.3L, Corrected Calcium 9.2, Total Bilirubin 1.3H, Aspartate Amino Transf (AST/SGOT) 21, Alanine Aminotransferase (ALT/SGPT) 15, Alkaline Phosphatase 50, B-Type Natriuretic Peptide 397.8H, Total Protein 5.3L, Albumin 2.9L, Triglycerides Level 66, Cholesterol Level 128, LDL Cholesterol Direct 64, VLDL Cholesterol 13, HDL Cholesterol 52, Procalcitonin 0.04 10/01/21 12:50: White Blood Count 9.0, Red Blood Count 2.88L, Hemoglobin 9.8#L, Hematocrit 29L, Mean Corpuscular Volume 100H, Mean Corpuscular Hemoglobin 34, Mean Corpuscular Hemoglobin Concent 34, Red Cell Distribution Width 17.2H, Platelet Count 229, Mean Platelet Volume 8.9L, Immature Granulocyte % (Auto) 2, Neutrophils (%) (Auto) 59, Lymphocytes (%) (Auto) 16, Monocytes (%) (Auto) 19H, Eosinophils (%) (Auto) 4, Basophils (%) (Auto) 0, Neutrophils # (Auto) 5.3, Lymphocytes # (Auto) 1.4, Monocytes # (Auto) 1.7H, Eosinophils # (Auto) 0.3, Basophils # (Auto) 0.0, Immature Granulocyte # (Auto) 0.2H, Sodium Level 133L, Potassium Level 3.7, Chloride Level 92L, Carbon Dioxide Level 26, Anion Gap 15H, Blood Urea Nitrogen 6L, Creatinine 0.70, Estimat Glomerular Filtration Rate 99, BUN/Creatinine Ratio 9, Glucose Level 121H, Calcium Level 9.0, Corrected Calcium 9.6, Total Bilirubin 1.6H, Aspartate Amino Transf (AST/SGOT) 22, Alanine Aminotransferase (ALT/SGPT) 18, Alkaline Phosphatase 56, Total Protein 6.4, Albumin 3.3, Neutrophils % (Manual) 64, Lymphocytes % (Manual) 19, Monocytes % (Manual) 16, Eosinophils % (Manual) 1, Basophils % (Manual) 0, Polychromasia SLIGHT, Basophilic Stippling SLIGHT, Anisocytosis SLIGHT, Macrocytosis SLIGHT 10/04/21 05:35: White Blood Count 7.3, Red Blood Count 2.69L, Hemoglobin 9.0L, Hematocrit 28L, Mean Corpuscular Volume 103H, Mean Corpuscular Hemoglobin 34, Mean Corpuscular Hemoglobin Concent 32, Red Cell Distribution Width 16.1H, Platelet Count 349, Mean Platelet Volume 9.0, Immature Granulocyte % (Auto) 2, Neutrophils (%) (Auto) 59, Lymphocytes (%) (Auto) 19, Monocytes (%) (Auto) 16H, Eosinophils (%) (Auto) 3, Basophils (%) (Auto) 1, Neutrophils # (Auto) 4.3, Lymphocytes # (Auto) 1.3, Monocytes # (Auto) 1.2H, Eosinophils # (Auto) 0.2, Basophils # (Auto) 0.1, Immature Granulocyte # (Auto) 0.2H, Sodium Level 130L, Potassium Level 3.8, Chloride Level 93L, Carbon Dioxide Level 27, Anion Gap 10, Blood Urea Nitrogen 9, Creatinine 0.68, Estimat Glomerular Filtration Rate 100, BUN/Creatinine Ratio 13, Glucose Level 104, Calcium Level 9.1, Corrected Calcium 9.7, Total Bilirubin 1.3H, Aspartate Amino Transf (AST/SGOT) 20, Alanine Aminotransferase (ALT/SGPT) 13, Alkaline Phosphatase 61, Total Protein 6.2L, Albumin 3.2 10/07/21 06:25: White Blood Count 10.8, Red Blood Count 2.67L, Hemoglobin 9.0L, Hematocrit 28L, Mean Corpuscular Volume 105H, Mean Corpuscular Hemoglobin 34, Mean Corpuscular Hemoglobin Concent 32, Red Cell Distribution Width 15.4H, Platelet Count 417H, Mean Platelet Volume 8.6L, Immature Granulocyte % (Auto) 1, Neutrophils (%) (Auto) 73, Lymphocytes (%) (Auto) 13, Monocytes (%) (Auto) 10, Eosinophils (%) (Auto) 2, Basophils (%) (Auto) 1, Neutrophils # (Auto) 7.9H, Lymphocytes # (Auto) 1.4, Monocytes # (Auto) 1.1H, Eosinophils # (Auto) 0.2, Basophils # (Auto) 0.1, Immature Granulocyte # (Auto) 0.1, Sodium Level 131L, Potassium Level 3.9, Chloride Level 97L, Carbon Dioxide Level 25, Anion Gap 9, Blood Urea Nitrogen 7, Creatinine 0.68, Estimat Glomerular Filtration Rate 100, BUN/Creatin ine Ratio 10, Glucose Level 99, Calcium Level 8.9, Corrected Calcium 9.6, Total Bilirubin 1.3H, Aspartate Amino Transf (AST/SGOT) 19, Alanine Aminotransferase (ALT/SGPT) 14, Alkaline Phosphatase 78, Total Protein 6.0L, Albumin 3.1L 10/11/21 05:24: White Blood Count 6.3, Red Blood Count 2.76L, Hemoglobin 9.2L, Hematocrit 28L, Mean Corpuscular Volume 103H, Mean Corpuscular Hemoglobin 33, Mean Corpuscular Hemoglobin Concent 33, Red Cell Distribution Width 14.9H, Platelet Count 507H, Mean Platelet Volume 8.4L, Immature Granulocyte % (Auto) 0, Neutrophils (%) (Auto) 63, Lymphocytes (%) (Auto) 18, Monocytes (%) (Auto) 13H, Eosinophils (%) (Auto) 5, Basophils (%) (Auto) 1, Neutrophils # (Auto) 4.0, Lymphocytes # (Auto) 1.1, Monocytes # (Auto) 0.8, Eosinophils # (Auto) 0.3, Basophils # (Auto) 0.1, Immature Granulocyte # (Auto) 0.0, Sodium Level 134L, Potassium Level 4.0, Chloride Level 100, Carbon Dioxide Level 25, Anion Gap 9, Blood Urea Nitrogen 6L , Creatinine 0.66, Estimat Glomerular Filtration Rate 101, BUN/Creatinine Ratio 9, Glucose Level 112H, Calcium Level 8.4L, Corrected Calcium 9.1, Total Bilirubin 0.7, Aspartate Amino Transf (AST/SGOT) 10, Alanine Aminotransferase (ALT/SGPT) 11, Alkaline Phosphatase 95, Total Protein 5.9L, Albumin 3.1L Pending Labs Laboratory Tests 09/30/21 05:17: Iron Level 31, Total Iron Binding Capacity 167, Unsaturated Iron Binding Capacity 136, Transferrin % Saturation 19, Ferritin 561.3, Vitamin B12 Level 591 09/30/21 05:55: White Blood Count 7.9, Red Blood Count 2.25, Hemoglobin 7.8, Hematocrit 23, Mean Corpuscular Volume 103, Mean Corpuscular Hemoglobin 35, Mean Corpuscular Hemoglobin Concent 34, Red Cell Distribution Width 15.7, Platelet Count 185, Mean Platelet Volume 9.4, Immature Granulocyte % (Auto) 1, Neutrophils (%) (Auto) 55, Lymphocytes (%) (Auto) 17, Monocytes (%) (Auto) 22, Eosinophils (%) (Auto) 4, Basophils (%) (Auto) 1, Neutrophils # (Auto) 4.3, Lymphocytes # (Auto) 1.3, Monocytes # (Auto) 1.8, Eosinophils # (Auto) 0.3, Basophils # (Auto) 0.0, Immature Granulocyte # (Auto) 0.1, Sodium Level 130, Potassium Level 3.7, Chloride Level 96, Carbon Dioxide Level 24, Anion Gap 10, Blood Urea Nitrogen 6, Creatinine 0.59, Estimat Glomerular Filtration Rate 104, BUN/Creatinine Ratio 10, Glucose Level 94, Calcium Level 8.3, Corrected Calcium 9.2, Total Bilirubin 1.3, Aspartate Amino Transf (AST/SGOT) 21, Alanine Aminotransferase (ALT/SGPT) 15, Alkaline Phosphatase 50, B-Type Natriuretic Peptide 397.8, Total Protein 5.3, Albumin 2.9, Triglycerides Level 66, Cholesterol Level 128, LDL Cholesterol Direct 64, VLDL Cholesterol 13, HDL Cholesterol 52, Procalcitonin 0.04 10/01/21 12:50: White Blood Count 9.0, Red Blood Count 2.88, Hemoglobin 9.8, Hematocrit 29, Mean Corpuscular Volume 100, Mean Corpuscular Hemoglobin 34, Mean Corpuscular Hemoglobin Concent 34, Red Cell Distribution Width 17.2, Platelet Count 229, Mean Platelet Volume 8.9, Immature Granulocyte % (Auto) 2, Neutrophils (%) (Auto) 59, Lymphocytes (%) (Auto) 16, Monocytes (%) (Auto) 19, Eosinophils (%) (Auto) 4, Basophils (%) (Auto) 0, Neutrophils # (Auto) 5.3, Lymphocytes # (Auto) 1.4, Monocytes # (Auto) 1.7, Eosinophils # (Auto) 0.3, Basophils # (Auto) 0.0, Immature Granulocyte # (Auto) 0.2, Sodium Level 133, Potassium Level 3.7, Chloride Level 92, Carbon Dioxide Level 26, Anion Gap 15, Blood Urea Nitrogen 6, Creatinine 0.70, Estimat Glomerular Filtration Rate 99, BUN/Creatinine Ratio 9, Glucose Level 121, Calcium Level 9.0, Corrected Calcium 9.6, Total Bilirubin 1.6, Aspartate Amino Transf (AST/SGOT) 22, Alanine Aminotransferase (ALT/SGPT) 18, Alkaline Phosphatase 56, Total Protein 6.4, Albumin 3.3, Neutrophils % (Manual) 64, Lymphocytes % (Manual) 19, Monocytes % (Manual) 16, Eosinophils % (Manual) 1, Basophils % (Manual) 0, Polychromasia SLIGHT, Basophilic Stippling SLIGHT, Anisocytosis SLIGHT, Macrocytosis SLIGHT 10/04/21 05:35: White Blood Count 7.3, Red Blood Count 2.69, Hemoglobin 9.0, Hematocrit 28, Mean Corpuscular Volume 103, Mean Corpuscular Hemoglobin 34, Mean Corpuscular Hemoglobin Concent 32, Red Cell Distribution Width 16.1, Platelet Count 349, Mean Platelet Volume 9.0, Immature Granulocyte % (Auto) 2, Neutrophils (%) (Auto) 59, Lymphocytes (%) (Auto) 19, Monocytes (%) (Auto) 16, Eosinophils (%) (Auto) 3, Basophils (%) (Auto) 1, Neutrophils # (Auto) 4.3, Lymphocytes # (Auto) 1.3, Monocytes # (Auto) 1.2, Eosinophils # (Auto) 0.2, Basophils # (Auto) 0.1, Immature Granulocyte # (Auto) 0.2, Sodium Level 130, Potassium Level 3.8, Chloride Level 93, Carbon Dioxide Level 27, Anion Gap 10, Blood Urea Nitrogen 9, Creatinine 0.68, Estimat Glomerular Filtration Rate 100, BUN/Creatinine Ratio 13, Glucose Level 104, Calcium Level 9.1, Corrected Calcium 9.7, Total Bilirubin 1.3, Aspartate Amino Transf (AST/SGOT) 20, Alanine Aminotransferase (ALT/SGPT) 13, Alkaline Phosphatase 61, Total Protein 6.2, Albumin 3.2 10/07/21 06:25: White Blood Count 10.8, Red Blood Count 2.67, Hemoglobin 9.0, Hematocrit 28, Mean Corpuscular Volume 105, Mean Corpuscular Hemoglobin 34, Mean Corpuscular Hemoglobin Concent 32, Red Cell Distribution Width 15.4, Platelet Count 417, Mean Platelet Volume 8.6, Immature Granulocyte % (Auto) 1, Neutrophils (%) (Auto) 73, Lymphocytes (%) (Auto) 13, Monocytes (%) (Auto) 10, Eosinophils (%) (Auto) 2, Basophils (%) (Auto) 1, Neutrophils # (Auto) 7.9, Lymphocytes # (Auto) 1.4, Monocytes # (Auto) 1.1, Eosinophils # (Auto) 0.2, Basophils # (Auto) 0.1, Immature Granulocyte # (Auto) 0.1, Sodium Level 131, Potassium Level 3.9, Chloride Level 97, Carbon Dioxide Level 25, Anion Gap 9, Blood Urea Nitrogen 7, Creatinine 0.68, Estimat Glomerular Filtration Rate 100, BUN/Creatinine Ratio 10, Glucose Level 99, Calcium Level 8.9, Corrected Calcium 9.6, Total Bilirubin 1.3, Aspartate Amino Transf (AST/SGOT) 19, Alanine Aminotransferase (ALT/SGPT) 14, Alkaline Phosphatase 78, Total Protein 6.0, Albumin 3.1 10/11/21 05:24: White Blood Count 6.3, Red Blood Count 2.76, Hemoglobin 9.2, Hematocrit 28, Mean Corpuscular Volume 103, Mean Corpuscular Hemoglobin 33, Mean Corpuscular Hemoglobin Concent 33, Red Cell Distribution Width 14.9, Platelet Count 507, Mean Platelet Volume 8.4, Immature Granulocyte % (Auto) 0, Neutrophils (%) (Auto) 63, Lymphocytes (%) (Auto) 18, Monocytes (%) (Auto) 13, Eosinophils (%) (Auto) 5, Basophils (%) (Auto) 1, Neutrophils # (Auto) 4.0, Lymphocytes # (Auto) 1.1, Monocytes # (Auto) 0.8, Eosinophils # (Auto) 0.3, Basophils # (Auto) 0.1, Immature Granulocyte # (Auto) 0.0, Sodium Level 134, Potassium Level 4.0, Chloride Level 100, Carbon Dioxide Level 25, Anion Gap 9, Blood Urea Nitrogen 6, Creatinine 0.66, Estimat Glomerular Filtration Rate 101, BUN/Creatinine Ratio 9, Glucose Level 112, Calcium Level 8.4, Corrected Calcium 9.1, Total Bilirubin 0.7, Aspartate Amino Transf (AST/SGOT) 10, Alanine Aminotransferase (ALT/SGPT) 11, Alkaline Phosphatase 95, Total Protein 5.9, Albumin 3.1 Discharge Home Medications: Active Scripts Active Stool Softener-Laxative Tablet (Sennosides/Docusate Sodium) 8.6 Mg-50 Mg Tablet 1 Ea PO BID Morphine Sulfate IR Tablet (Morphine Sulfate) 15 Mg Tablet 30 Mg PO Q4H PRN Morphine Sulfate ER (Morphine Sulfate) 15 Mg Tablet.er 15 Mg PO Q12HR Amlodipine Besylate 5 Mg Tablet 5 Mg PO DAILY Tab-A-Andrei Multivit with Iron (Multivitamin/Iron/Folic Acid) 18 Mg Iron-400 Mcg Tablet 1 Ea PO DAILY@0700 Melatonin 3 Mg Tablet 3 Mg PO HS PRN Reported Gabapentin 400 Mg Capsule 400 Mg PO TID LAST FILLED 02-23-2021 #270/90 DAY SUPPLY Metoprolol Tartrate 25 Mg Tablet 25 Mg PO BID Clopidogrel (Clopidogrel Bisulfate) 75 Mg Tablet 75 Mg PO DAILY Eliquis (Apixaban) 5 Mg Tablet 5 Mg PO BID Albuterol Sulfate 2.5 Mg/0.5 Ml Vial.neb 2.5 Mg INH Q6H PRN Proair Hfa (Albuterol Sulfate) 1 Puff Puff 2 Puff IH Q4H PRN Instructions to patient/family Please see electronic discharge instructions given to patient. Diagnosis/Problems Diagnosis/Problems (1) Closed right hip fracture Status: Acute (2) CAD (coronary artery disease) Status: Chronic (3) HLD (hyperlipidemia) Status: Chronic (4) Acute and chronic respiratory failure with hypoxia Status: Acute (5) Alcohol intoxication in active alcoholic Status: Acute (6) HTN (hypertension) Status: Chronic (7) Anemia due to acute blood loss Status: Acute (8) Alcoholism Status: Acute ALEXANDRA JUDGE DO Oct 14, 2021 05:46
[2021-10-14] MEDS: morphine IMMEDIATE RELEASE 15 MG TABLET PO PRN ×2 (05:53→10:31)
[2021-10-14 07:51] VITALS: BP 111/61
[2021-10-14] MEDS: APIXABAN 5 MG (ELIQUIS) TABLET PO SCH (08:36)
[2021-10-14] MEDS: FOLIC ACID 1 MG TAB PO SCH (08:36)
[2021-10-14] MEDS: CLOPIDOGREL 75 MG (PLAVIX) TABLET PO SCH (08:36)
[2021-10-14] MEDS: guaiFENesin (MUCINEX) 600 MG TAB PO SCH (08:36)
[2021-10-14] MEDS: amLODIPine 5 MG (NORVASC) TAB PO SCH (08:36)
[2021-10-14] MEDS: meTOprolol TARTRATE 25 MG (LOPRESSOR) TABLET PO SCH (08:37)
[2021-10-14] MEDS: morphine ER 15 MG (MS CONTIN) TAB PO SCH (08:37)
[2021-10-14] MEDS: DOCUSATE SODIUM 100 MG (COLACE) CAP PO SCH (09:42)
[2021-10-14] MEDS: SENNA W/DOCUSATE (SENOKOT S) TABLET PO SCH (09:42)
[2021-10-14] MEDS: polyethylene glycoL POWDER 17 GM (MIRALAX) PACK PO SCH (09:42)
[2021-10-14 11:10] VITALS: BP 111/61
--- NOTE | 2021-10-14 12:01 | Therapy Team Discharge Summary ---
Therapy Discharge Summary Discharge Recommendations Date of Discharge Physical Therapy Patient came to rehab post right femur fx. Upon evaluation patient performed rolling and supine <-> sit with max assist, sit <-> stand and transfers with max assist, car transfer max assist, and ambulated 6' with a rolling walker. Patient has been performing bed mobility and transfer training, balance and endurance training, functional strengthening, stair training, gait training, and education. Patient has made fair progress and has met all of his correction goals except for picking up an object from the floor and going up and down 12 steps. Now, patient performs rolling and supine to sit with setup, sit to supine SBA, sit <-> stand and transfers with setup, car transfer with CGA/SBA, ambulates 150' with a rolling walker with setup (including 50' with at least 2 turns of 90 degrees but needs CGA/SBA for 10' over an uneven surface), and can go up and down 4 steps using 2 handrails with CGA/SBA. Patient is being discharged from this facility today and will be discharged from PT at this time. Roll Left to Right (QC): 5 Sit to Lying (QC): 4 Lying to Sitting/Side of Bed(Q: 5 Sit to Stand (QC): 5 Chair/Csq-ny-Xskcn Xfer(QC): 5 Toilet Transfer (QC): 4 Car Transfer (QC): 4 Does the Patient Walk: Yes Mode of Locomotion: Walk Anticipated Mode of Locomotion: Walk Walk 10 feet (QC): 5 Walk 50 ft with 2 Turns(QC): 5 Walk 150 ft (QC): 5 Walking 10ft on uneven surface: 4 Distance: 6 feet Gait Assistive Device: FWW Does the Pt Use a Wheelchair: Yes Wheel 50 ft with 2 turns (QC): 4 Wheel 150 ft (QC): 4 Type of Wheelchair: Manual #of Steps: 4 1 Step (curb) (QC): 4 4 Steps (QC): 4 12 Steps (QC): 7 Balance Sitting Static: Fair Balance Sitting Dynamic: Fair Balance-Standing Static: Poor Picking up an Object (QC): 88 Occupational Therapy Decreased Activ Tolerance, Decreased Safety Aware, Decreased UE Strength, Impaired Cognition, Impaired Funct Balance, Impaired I ADL's, Impaired Self-Care Skills Eating (QC): 6 Oral Hygiene (QC): 6 Shower/Bathe Self (QC): 4 Lower Body Dressing (QC): 4 On/Off Footwear (QC): 3 (Assist to slide R shoe on this date secondary to pain and difficult lifting foot off floor) Toileting Hygiene (QC): 4 PT Keyboard Teacher Goals Keyboard Teacher Goals PT Keyboard Teacher Goals Time Frame: Oct 22, 2021 Roll Left to Right (QC): 4 Sit to Lying (QC): 4 Lying-Sitting on Side/Bed(QC): 4 Sit to Stand (QC): 4 Chair/Pox-gt-Dqhxf Xfer(QC): 4 Car Transfer (QC): 4 Does the Patient Walk: Yes Walk 10 feet (QC): 4 Walk 10ft-Uneven Surface(QC): 4 Walk 50ft with 2 Turns (QC): 4 Walk 150 ft (QC): 3 Does the Pt use WC or Scooter?: No Wheel 50 feet with 2 turns (QC: 9 1 Step (curb) (QC): 3 4 Steps (QC): 3 12 Steps (QC): 3 Picking up an Object (QC): 4 OT Half-Way Goals Keyboard Teacher Goals Time Frame: Oct 29, 2021 Eating (QC): 6 (met) Oral Hygiene (QC): 6 (met) Shower/Bathe Self (QC): 4 (met) Upper Body Dressing (QC): 4 (met) Lower Body Dressing (QC): 4 (met) On/Off Footwear (QC): 4 (not met, min a) Toileting Hygiene (QC): 4 (met) Toilet/Commode Transfer (QC): 4 1=Demonstrate adherence to instructed precautions during ADL tasks. 2=Patient will verbalize/demonstrate understanding of assistive devices/modifications for ADL. 3=Patient will improve strength/tolerance for activity to enable patient to perform ADL's. Speech Keyboard Teacher Goals Keyboard Teacher Goals 1. The patient will improve his cognitive linguistic skills for safe discharge to the least restrictive environment. While the patient has displayed mild cognitive improvement, intermittent periods of confusion and disorientation remain. The clinician recommends home supervision for increase safety which will be possible per patient's spouse. Time Frame: Two Weeks. KEN TOLENTINO PT Oct 14, 2021 12:01
--- NOTE | 2021-10-14 14:02 | Therapy Team Discharge Summary ---
Therapy Discharge Summary Discharge Recommendations Date of Discharge Oct 14, 2021 at 11:10 Therapy D/C Recommendations: [facility] Physical Therapy Roll Left to Right (QC): 5 Sit to Lying (QC): 4 Lying to Sitting/Side of Bed(Q: 5 Sit to Stand (QC): 5 Chair/Wyk-ra-Rrcyw Xfer(QC): 5 Toilet Transfer (QC): 4 Car Transfer (QC): 4 Does the Patient Walk: Yes Mode of Locomotion: Walk Anticipated Mode of Locomotion: Walk Walk 10 feet (QC): 5 Walk 50 ft with 2 Turns(QC): 5 Walk 150 ft (QC): 5 Walking 10ft on uneven surface: 4 Distance: 6 feet Gait Assistive Device: FWW Does the Pt Use a Wheelchair: Yes Wheel 50 ft with 2 turns (QC): 4 Wheel 150 ft (QC): 4 Type of Wheelchair: Manual #of Steps: 4 1 Step (curb) (QC): 4 4 Steps (QC): 4 12 Steps (QC): 7 Balance Sitting Static: Fair Balance Sitting Dynamic: Fair Balance-Standing Static: Poor Picking up an Object (QC): 88 Occupational Therapy Pt admitted to ARU with R femur fracture. At time of evaluation he was dependent for toileting, footwear, bathing and lower body dressing, CGA for upper body dressing, and SBA for eating. During his rehab stay, OT focused on balance, energy conservation strategies, breathing techniques, AE, strengthening, endurance, memory, attention, and safety in order to improve performance and independence in adls and functional transfers. Pt made fair progress and met all but one of his LTG. Pt declined in score with footwear secondary to increased pain. See below for current levels of assist. Pt has now discharged from this facility and will be discharged from OT at this time. Decreased Activ Tolerance, Decreased Safety Aware, Decreased UE Strength, Impaired Cognition, Impaired Funct Balance, Impaired I ADL's, Impaired Self-Care Skills Eating (QC): 6 Oral Hygiene (QC): 6 Shower/Bathe Self (QC): 4 Lower Body Dressing (QC): 4 On/Off Footwear (QC): 3 (Assist to slide R shoe on this date secondary to pain and difficult lifting foot off floor) Toileting Hygiene (QC): 4 PT Laser Printing Operator Goals Laser Printing Operator Goals PT Laser Printing Operator Goals Time Frame: Oct 22, 2021 Roll Left to Right (QC): 4 Sit to Lying (QC): 4 Lying-Sitting on Side/Bed(QC): 4 Sit to Stand (QC): 4 Chair/Bmb-rs-Sujda Xfer(QC): 4 Car Transfer (QC): 4 Does the Patient Walk: Yes Walk 10 feet (QC): 4 Walk 10ft-Uneven Surface(QC): 4 Walk 50ft with 2 Turns (QC): 4 Walk 150 ft (QC): 3 Does the Pt use WC or Scooter?: No Wheel 50 feet with 2 turns (QC: 9 1 Step (curb) (QC): 3 4 Steps (QC): 3 12 Steps (QC): 3 Picking up an Object (QC): 4 OT Laser Printing Operator Goals Laser Printing Operator Goals Time Frame: Oct 29, 2021 Eating (QC): 6 (met) Oral Hygiene (QC): 6 (met) Shower/Bathe Self (QC): 4 (met) Upper Body Dressing (QC): 4 (met) Lower Body Dressing (QC): 4 (met) On/Off Footwear (QC): 4 (not met, min a) Toileting Hygiene (QC): 4 (met) Toilet/Commode Transfer (QC): 4 (met) 1=Demonstrate adherence to instructed precautions during ADL tasks. 2=Patient will verbalize/demonstrate understanding of assistive devices/modifications for ADL. 3=Patient will improve strength/tolerance for activity to enable patient to perform ADL's. Speech Halfway Goals Laser Printing Operator Goals 1. The patient will improve his cognitive linguistic skills for safe discharge to the least restrictive environment. While the patient has displayed mild cognitive improvement, intermittent periods of confusion and disorientation remain. The clinician recommends home supervision for increase safety which will be possible per patient's spouse. Time Frame: Two Weeks. Kiley Pena OT Oct 14, 2021 14:02
== END 2021-10-14 11:10 | disposition home health service (06) | DRG 559 ==
PROVIDERS: ADMIT Internal Medicine; ATTEND Internal Medicine
DX: S72.001D Fracture of unspecified part of neck of right femur, subsequent encounter for closed fracture with routine healing (principal); J96.21 Acute and chronic respiratory failure with hypoxia; D62 Acute posthemorrhagic anemia; F10.20 Alcohol dependence, uncomplicated; I48.0 Paroxysmal atrial fibrillation; E78.2 Mixed hyperlipidemia; K59.00 Constipation, unspecified; J43.9 Emphysema, unspecified; H16.203 Unspecified keratoconjunctivitis, bilateral; I25.10 Atherosclerotic heart disease of native coronary artery without angina pectoris; I10 Essential (primary) hypertension; K21.9 Gastro-esophageal reflux disease without esophagitis; F41.9 Anxiety disorder, unspecified; F32.A Depression, unspecified; I25.2 Old myocardial infarction; Z95.1 Presence of aortocoronary bypass graft; Z99.81 Dependence on supplemental oxygen; Z87.891 Personal history of nicotine dependence; Z79.01 Long term (current) use of anticoagulants; Z79.899 Other long term (current) drug therapy
CPT/HCPCS: 36415; 71045; 80053; 80061; 82607; 82728; 83540; 83550; 83880; 84145; 85007; 85025; 85027; 86920; 94640; 94664; 94760

== ENCOUNTER → 2021-10-19 | Outpatient (CLI) | payer MEDICARE ==
[~2021-10-19] MED LIST changes: +AMLO-250 PO; +MELA3TAB39 PO; +MORP-68 PO; +MORP15TA PO; +MULT-1137 PO; +SENN1TAB76 PO
== END ==
LOC: ORTHO 08:43
PROVIDERS: ATTEND Orthopaedic Surgery
DX: Z47.89 Encounter for other orthopedic aftercare (principal); Z98.890 Other specified postprocedural states

== ENCOUNTER 2021-11-05 11:40 | Emergency (ER) | payer MEDICARE ==
[~2021-11-05] VITALS: Ht 180.3 cm; Wt 81.5 kg
[2021-11-05] MEDS ORDERED: fentaNYL INJ 100 MCG/2 ML AMP IVP ONE (12:45)
--- NOTE | 2021-11-05 13:24 | Diagnostic Imaging Report ---
Indication: Right hip pain and pelvic pain. Time of Exam: 12:42 PM AP view of the pelvis, 2 views of the right hip are obtained. An intramedullary carlo and compression screw transfixes the inner trochanteric right hip fracture. Alignment is normal. Fracture line does remain partly visible. Left hip appears intact and shows normal alignment. Rami are intact. IMPRESSION: ORIF of the right hip fracture. The fracture remains partly visible. Overall alignment is anatomic. No new abnormality is detected. Dictated by: Dictated on workstation # [id number]
--- NOTE | 2021-11-05 13:27 | ED Hip Pain/Injury ---
General Chief Complaint: Hip/Pelvic Problems Stated Complaint: R HIP PAIN, FELL Nursing Triage Note: fell at home on monday on the same right hip which was fractured and pinned last month. patient is doing PT at home and today was unable to tolerate the activity d/t pain . Source: patient Exam Limitations: no limitations (DYLAN CANADA APRN) History of Present Illness Date Seen by Provider: Nov 05, 2021 Time Seen by Provider: 13:26 Initial Comments To ER with right hip pain. He had a recent right hip fracture treated with pinning he fell 3 days ago and has had pain since then that has increased. He is been taking some leftover hydrocodone with some relief. Remains ambulatory with a walker (DYLAN CANADA APRN) Allergies and Home Medications Allergies Coded Allergies: No Known Drug Allergies (Unverified , 12/12/17) Patient Home Medication List Home Medication List Reviewed: Yes (DYLAN CANADA APRN) Albuterol Sulfate (Proair Hfa) 1 Puff Puff, 2 PUFF IH Q4H PRN for SHORTNESS OF BREATH, (Reported) Entered as Reported by: SUJATA COBOS on 09/07/21 1504 Albuterol Sulfate (Albuterol Sulfate) 2.5 Mg/0.5 Ml Vial.neb, 2.5 MG INH Q6H PRN for SHORTNESS OF BREATH, (Reported) Entered as Reported by: SUJATA COBOS on 09/07/21 1504 Amlodipine Besylate (Amlodipine Besylate) 5 Mg Tablet, 5 MG PO DAILY Prescribed by: ALEXANDRA JUDGE on 10/13/21 0557 Apixaban (Eliquis) 5 Mg Tablet, 5 MG PO BID, (Reported) Entered as Reported by: SUJATA COBOS on 09/27/21 1027 Clopidogrel Bisulfate (Clopidogrel) 75 Mg Tablet, 75 MG PO DAILY, (Reported) Entered as Reported by: SUJATA COBOS on 09/27/21 1027 Gabapentin (Gabapentin) 400 Mg Capsule, 400 MG PO TID, (Reported) Entered as Reported by: SUJATA COBOS on 09/27/21 1027 Hydrocodone/Acetaminophen (Hydrocodone-Acetamin 5-325 mg) 5 Mg-325 Mg Tablet, 1 TAB PO Q4H PRN for PAIN-MODERATE (5-7) Prescribed by: DYLAN CANADA on 11/05/21 1357 Melatonin (Melatonin) 3 Mg Tablet, 3 MG PO HS PRN for SLEEP Prescribed by: ANAIS HDZ on 09/29/21 1025 Metoprolol Tartrate (Metoprolol Tartrate) 25 Mg Tablet, 25 MG PO BID, (Reported) Entered as Reported by: SUJATA COBOS on 09/27/21 1027 Morphine Sulfate (Morphine Sulfate ER) 15 Mg Tablet.er, 15 MG PO Q12HR Prescribed by: ALEXANDRA JUDGE on 10/13/21 0558 Morphine Sulfate (Morphine Sulfate IR Tablet) 15 Mg Tablet, 30 MG PO Q4H PRN for PAIN-SEVERE (8-10) Prescribed by: ALEXANDRA JUDGE on 10/13/21 0558 Multivitamin/Iron/Folic Acid (Tab-A-Andrei Multivit with Iron) 18 Mg Iron-400 Mcg Tablet, 1 EA PO DAILY@0700 Prescribed by: ALEXANDRA JUDGE on 10/13/21 0557 Sennosides/Docusate Sodium (Stool Softener-Laxative Tablet) 8.6 Mg-50 Mg Tablet, 1 EA PO BID Prescribed by: ALEXANDRA JUDGE on 10/13/21 0557 Review of Systems Constitutional: see HPI EENTM: see HPI Respiratory: no symptoms reported Cardiovascular: no symptoms reported Genitourinary: no symptoms reported Musculoskeletal: see HPI Skin: no symptoms reported Psychiatric/Neurological: No Symptoms Reported (DYLAN CANADA APRN) Past Nnzjbdl-Xdfylf-Tgtldz Hx Patient Social History Tobacco Use?: No Use of E-Cig and/or Vaping dev: No Substance use?: No Alcohol Use?: Yes Alcohol type: Beer, Hard Liquor Alcohol Frequency: Daily Pt feels they are or have been: No (DYLAN CANADA APRN) Immunizations Up To Date Tetanus Booster (TDap): Unknown First/Initial COVID19 Vaccinat: ONE DOSE Second COVID19 Vaccination Joseph: TWO SHOTS (DYLAN CANADA APRN) Seasonal Allergies Seasonal Allergies: No (DYLAN CANADA APRN) Past Medical History Surgery/Hospitalization HX: 09/25 RIGHT HIP NAILING Surgeries: Yes (CABG,PANCREAS SURGERY,VASECTOMY, STENTS) Abdominal, Cardiac, CABG, Coronary Stent, Vasectomy Respiratory: Yes COPD, Emphysema Currently Using CPAP: No Currently Using BIPAP: No Cardiac: Yes Atrial Fibrillation, Coronary Artery Disease, Heart Attack, High Cholesterol, Hypertension Neurological: No Reproductive Disorders: No Genitourinary: No Gastrointestinal: Yes Gastroesophageal Reflux, Esophageal Varices, Irritable Bowel Musculoskeletal: Yes (CHRONIC NECK AND BACK PAIN ) Degenerate Disk Disease, Chronic Back Pain, Fractures Endocrine: No HEENT: Yes Loss of Vision: Denies Hearing Impairment: Denies Cancer: No Psychosocial: Yes Anxiety, Depression Integumentary: No Blood Disorders: No (DYLAN CANADA APRN) Family Medical History No Pertinent Family Hx (DYLAN CANADA APRN) Physical Exam Vital Signs Vital Signs - First Documented 11/05/21 11/05/21 12:20 14:05 Temp 36.0 Pulse 62 Resp 20 B/P (MAP) 104/45 Pulse Ox 99 O2 Delivery Nasal Cannula O2 Flow Rate 4.00 (DIPESH MARCANO MD) Vital Signs Capillary Refill : Less Than 3 Seconds (DYLAN CANADA APRN) Height, Weight, BMI Height: 5'11.00" Weight: 176lbs. 1.6oz. [id number]; 25.00 BMI Method: General Appearance: No Apparent Distress, WD/WN, Chronically ill Respiratory: No Accessory Muscle Use, No Respiratory Distress Gastrointestinal: Non Tender, Soft Extremity: Normal Capillary Refill, Normal Inspection Neurologic/Psychiatric: Alert, Oriented x3 Skin: Other (incisions over the lateral aspect of the right hip are clean dry and intact) (DYLAN CANADA APRN) Progress/Results/Core Measures Results/Orders My Orders Orders - DIPESH MARCANO MD Pelvis With Right Hip 2-3views (11/05/21 11:43) (DIPESH MARCANO MD) Medications Given in ED Current Medications Medications Dose Ordered Sig/Talon Route Start Time Stop Time Status Last Admin Dose Admin Fentanyl Citrate 50 mcg ONCE ONCE IVP 11/05/21 12:45 11/05/21 12:46 DC 11/05/21 13:02 50 MCG (DIPESH MARCANO MD) Vital Signs/I&O 11/05/21 11/05/21 12:20 14:05 Temp 36.0 Pulse 62 83 Resp 20 18 B/P (MAP) 104/45 Pulse Ox 99 98 O2 Delivery Nasal Cannula Nasal Cannula O2 Flow Rate 4.00 4.00 4.00 (DIPESH MARCANO MD) Departure Impression Primary Impression: Right hip pain Disposition: 01 HOME, SELF-CARE Condition: Stable Departure-Patient Inst. Decision time for Depature: 13:36 (DYLAN CANADA APRN) Referrals: TIERRA KWONG MD (PCP/Family) Primary Care Physician Patient Instructions: Hip Pain Add. Discharge Instructions: . Pain medication as directed. Follow-up with your doctor next week. All discharge instructions reviewed with patient and/or family. Voiced understanding. Scripts Hydrocodone/Acetaminophen (Hydrocodone-Acetamin 5-325 mg) 5 Mg-325 Mg Tablet 1 TAB PO Q4H PRN for PAIN-MODERATE (5-7), #20 TAB Prov: DYLAN CANADA APRN 11/05/21 ATTENDING PHYSICIAN NOTE: I was physically present as attending physician in the emergency department during the care of this patient, but I was not directly involved in the decision making or delivery of care for this patient. (DIPESH MARCANO MD) DYLAN CANADA APRN Nov 05, 2021 13:26 DIPESH MARCANO MD Nov 05, 2021 20:41
[2021-11-05] MEDS ORDERED: ACHD5005 PO (13:57)
[2021-11-05 14:05] VITALS: BP 104/45
== END 2021-11-05 14:04 | disposition home or self-care (01) ==
LOC: EDUNIT# 11:40 → ER 11:41
DX: M25.551 Pain in right hip (principal); Z87.81 Personal history of (healed) traumatic fracture

== ENCOUNTER 2021-11-19 21:27 | Emergency (ER) | payer MEDICARE ==
[~2021-11-19] VITALS: Ht 180 cm; Wt 86.0 kg
--- NOTE | 2021-11-19 21:58 | ED Respiratory ---
General Chief Complaint: Respiratory Problems Stated Complaint: SOB Nursing Triage Note: Pt presents via EMS with c/o labored breathing. Pt states he has had 6-8 beers tonight and developed a sharp pain to L upper chest and shortness of breath. Pt supposed to be on home O2 at all times and EMS reports he was not wearing it. Pt also states he is pain free upon arrival. History of Present Illness Date Seen by Provider: Nov 19, 2021 Time Seen by Provider: 21:42 Initial Comments 71-year-old male with PMH of alcohol addiction/ CAD with cardiac bypass in 1970/HTN/A. fib/COPD, is here with complaints of shortness of breath which has been chronic but progressively started worsening today. Patient had 3 beers prior to coming to the ER. Patient states that he becomes more short of breath when walking. Patient admits to drinking every single day and also admits to being addicted to alcohol. Denies fever, chest pain, cough, palpitations, abdominal pain, nausea and vomiting, diarrhea, dizziness. Allergies and Home Medications Allergies Coded Allergies: No Known Drug Allergies (Unverified , 12/12/17) Patient Home Medication List Home Medication List Reviewed: Yes Albuterol Sulfate (Proair Hfa) 1 Puff Puff, 2 PUFF IH Q4H PRN for SHORTNESS OF BREATH, (Reported) Entered as Reported by: SUJATA COBOS on 09/07/21 1504 Albuterol Sulfate (Albuterol Sulfate) 2.5 Mg/0.5 Ml Vial.neb, 2.5 MG INH Q6H PRN for SHORTNESS OF BREATH, (Reported) Entered as Reported by: SUJATA COBOS on 09/07/21 1504 Amlodipine Besylate (Amlodipine Besylate) 5 Mg Tablet, 5 MG PO DAILY Prescribed by: ALEXANDRA JUDGE on 10/13/21 0557 Apixaban (Eliquis) 5 Mg Tablet, 5 MG PO BID, (Reported) Entered as Reported by: SUJATA COBOS on 09/27/21 1027 Clopidogrel Bisulfate (Clopidogrel) 75 Mg Tablet, 75 MG PO DAILY, (Reported) Entered as Reported by: SUJATA COBOS on 09/27/21 1027 Gabapentin (Gabapentin) 400 Mg Capsule, 400 MG PO TID, (Reported) Entered as Reported by: SUJATA COBOS on 09/27/21 1027 Hydrocodone/Acetaminophen (Hydrocodone-Acetamin 5-325 mg) 5 Mg-325 Mg Tablet, 1 TAB PO Q4H PRN for PAIN-MODERATE (5-7) Prescribed by: DYLAN CANADA on 11/05/21 1357 Melatonin (Melatonin) 3 Mg Tablet, 3 MG PO HS PRN for SLEEP Prescribed by: ANAIS HDZ on 09/29/21 1025 Metoprolol Tartrate (Metoprolol Tartrate) 25 Mg Tablet, 25 MG PO BID, (Reported) Entered as Reported by: SUJATA COBOS on 09/27/21 1027 Morphine Sulfate (Morphine Sulfate ER) 15 Mg Tablet.er, 15 MG PO Q12HR Prescribed by: ALEXANDRA JUDGE on 10/13/21 0558 Morphine Sulfate (Morphine Sulfate IR Tablet) 15 Mg Tablet, 30 MG PO Q4H PRN for PAIN-SEVERE (8-10) Prescribed by: ALEXANDRA JUDGE on 10/13/21 0558 Multivitamin/Iron/Folic Acid (Tab-A-Andrei Multivit with Iron) 18 Mg Iron-400 Mcg Tablet, 1 EA PO DAILY@0700 Prescribed by: ALEXANDRA JUDGE on 10/13/21 0557 Sennosides/Docusate Sodium (Stool Softener-Laxative Tablet) 8.6 Mg-50 Mg Tablet, 1 EA PO BID Prescribed by: ALEXANDRA JUDGE on 10/13/21 0557 Review of Systems Review of Systems Constitutional: no symptoms reported EENTM: no symptoms reported Respiratory: short of breath Cardiovascular: no symptoms reported Gastrointestinal: no symptoms reported Genitourinary: no symptoms reported Musculoskeletal: no symptoms reported Skin: no symptoms reported Psychiatric/Neurological: Other (alcoholic) Hematologic/Lymphatic: No Symptoms Reported Immunological/Allergic: no symptoms reported Past Uytskzr-Hbmevi-Hkiigl Hx Immunizations Up To Date Tetanus Booster (TDap): Unknown First/Initial COVID19 Vaccinat: ONE DOSE Second COVID19 Vaccination Joseph: TWO SHOTS Seasonal Allergies Seasonal Allergies: No Past Medical History Surgery/Hospitalization HX: 09/25 RIGHT HIP NAILING Surgeries: Yes (CABG,PANCREAS SURGERY,VASECTOMY, STENTS) Abdominal, Cardiac, CABG, Coronary Stent, Vasectomy Respiratory: Yes COPD, Emphysema Currently Using CPAP: No Currently Using BIPAP: No Cardiac: Yes Atrial Fibrillation, Coronary Artery Disease, Heart Attack, High Cholesterol, Hypertension Neurological: No Reproductive Disorders: No Genitourinary: No Gastrointestinal: Yes Gastroesophageal Reflux, Esophageal Varices, Irritable Bowel Musculoskeletal: Yes (CHRONIC NECK AND BACK PAIN ) Degenerate Disk Disease, Chronic Back Pain, Fractures Endocrine: No HEENT: Yes Loss of Vision: Denies Hearing Impairment: Denies Cancer: No Psychosocial: Yes Anxiety, Depression Integumentary: No Blood Disorders: No Family Medical History No Pertinent Family Hx Physical Exam Vital Signs - First Documented 11/19/21 21:30 Temp 35.6 Pulse 107 Resp 20 B/P (MAP) 133/102 (112) Pulse Ox 100 O2 Delivery Nasal Cannula O2 Flow Rate 4.00 Capillary Refill : Less Than 3 Seconds Height: 5'11.00" Weight: 176lbs. 1.6oz. 79.584724ey; 26.00 BMI Method: General Appearance: WD/WN, no apparent distress HEENT: PERRL/EOMI, normal ENT inspection Neck: non-tender, full range of motion, supple Respiratory: chest non-tender, no respiratory distress, no accessory muscle use, rhonchi Cardiovascular: regular rate, rhythm, no edema Gastrointestinal: normal bowel sounds, non tender, soft Neurologic/Psychiatric: alert, normal mood/affect, oriented x 3, other (agitation, pt states he needs another drink) Progress/Results/Core Measures Suspected Sepsis SIRS Temperature: Pulse: 107 Respiratory Rate: 20 Laboratory Tests 11/19/21 22:00: White Blood Count 6.2 Blood Pressure 133 /102 Mean: 112 Laboratory Tests 11/19/21 22:00: Creatinine 0.62, INR Comment 1.0, Platelet Count 295, Total Bilirubin 0.6 Results/Orders Lab Results Laboratory Tests Test 11/19/21 22:00 11/19/21 22:25 11/19/21 23:17 Range/Units White Blood Count 6.2 4.3-11.0 10^3/uL Red Blood Count 3.15 L 4.30-5.52 10^6/uL Hemoglobin 10.4 L 13.3-17.7 g/dL Hematocrit 30 L 40-54 % Mean Corpuscular Volume 96 80-99 fL Mean Corpuscular Hemoglobin 33 25-34 pg Mean Corpuscular Hemoglobin Concent 35 32-36 g/dL Red Cell Distribution Width 17.5 H 10.0-14.5 % Platelet Count 295 130-400 10^3/uL Mean Platelet Volume 8.6 L 9.0-12.2 fL Immature Granulocyte % (Auto) 1 % Neutrophils (%) (Auto) 54 42-75 % Lymphocytes (%) (Auto) 27 12-44 % Monocytes (%) (Auto) 17 H 0-12 % Eosinophils (%) (Auto) 1 0-10 % Basophils (%) (Auto) 1 0-10 % Neutrophils # (Auto) 3.4 1.8-7.8 10^3/uL Lymphocytes # (Auto) 1.6 1.0-4.0 10^3/uL Monocytes # (Auto) 1.0 0.0-1.0 10^3/uL Eosinophils # (Auto) 0.1 0.0-0.3 10^3/uL Basophils # (Auto) 0.1 0.0-0.1 10^3/uL Immature Granulocyte # (Auto) 0.0 0.0-0.1 10^3/uL Prothrombin Time 13.1 12.2-14.7 SEC INR Comment 1.0 0.8-1.4 Activated Partial Thromboplast Time 30 24-35 SEC D-Dimer 2.95 H 0.00-0.49 UG/ML Sodium Level 128 L 135-145 MMOL/L Potassium Level 3.7 3.6-5.0 MMOL/L Chloride Level 88 L 98-107 MMOL/L Carbon Dioxide Level 26 21-32 MMOL/L Anion Gap 14 5-14 MMOL/L Blood Urea Nitrogen 4 L 7-18 MG/DL Creatinine 0.62 0.60-1.30 MG/DL Estimat Glomerular Filtration Rate 102 BUN/Creatinine Ratio 6 Glucose Level 91 70-105 MG/DL Calcium Level 8.8 8.5-10.1 MG/DL Corrected Calcium 8.9 8.5-10.1 MG/DL Total Bilirubin 0.6 0.1-1.0 MG/DL Aspartate Amino Transf (AST/SGOT) 74 H 5-34 U/L Alanine Aminotransferase (ALT/SGPT) 38 0-55 U/L Alkaline Phosphatase 141 H 40-136 U/L Troponin I < 0.028 <0.028 NG/ML B-Type Natriuretic Peptide 42.4 <100.0 PG/ML Total Protein 7.1 6.4-8.2 GM/DL Albumin 3.9 3.2-4.5 GM/DL Influenza Type A (RT-PCR) Not Detected Not Detecte Influenza Type B (RT-PCR) Not Detected Not Detecte SARS-CoV-2 RNA (RT-PCR) Not Detected Not Detecte Urine Color YELLOW Urine Clarity CLEAR Urine pH 6.0 5-9 Urine Specific Bowman <=1.005 1.016-1.022 Urine Protein NEGATIVE NEGATIVE Urine Glucose (UA) NEGATIVE NEGATIVE Urine Ketones NEGATIVE NEGATIVE Urine Nitrite NEGATIVE NEGATIVE Urine Bilirubin NEGATIVE NEGATIVE Urine Urobilinogen 0.2 < = 1.0 MG/DL Urine Leukocyte Esterase NEGATIVE NEGATIVE Urine RBC (Auto) 1+ H NEGATIVE Urine RBC 2-5 H /HPF Urine WBC NONE /HPF Urine Crystals NONE /LPF Urine Bacteria TRACE /HPF Urine Casts NONE /LPF Urine Mucus NEGATIVE /LPF Urine Culture Indicated NO My Orders Orders - MANA LEYVA MD Ekg-Prn For Chest Pain Or Rhyt (11/19/21 21:46) Chest 1 View, Ap/Pa Only (11/19/21 21:58) Bnp Cleo (11/19/21 21:59) Cbc With Automated Diff (11/19/21 21:59) Comprehensive Metabolic Panel (11/19/21 21:59) Fibrin Degradation Products (11/19/21 21:59) Protime With Inr (11/19/21 21:59) Partial Thromboplastin Time (11/19/21 21:59) Ua Culture If Indicated (11/19/21 21:59) Troponin I Hanson (11/19/21 21:59) Ekg Tracing (11/19/21 22:04) Methylprednisolone Sod Succ (Solu-Medrol (11/19/21 22:01) Covid 19 Inhouse Test (11/19/21 22:01) Influenza A And B By Pcr (11/19/21 22:01) Thiamine Injection (Vitamin B-1 Injectio (11/20/21 09:00) Lorazepam Injection (Ativan Injection) (11/19/21 23:18) Albuterol/Ipra Inhalation Soln (Duoneb I (11/19/21 23:30) Svn Small Volume Nebulizer (11/19/21 23:22) Alcohol Xfigvnwkrw-Rjcm-Rt Abdiel Q1H (11/19/21 23:25) Albuterol/Ipra Inhalation Soln (Duoneb I (11/19/21 23:47) Ct Angio Chest W (11/20/21 00:01) Albuterol/Ipra Inhalation Soln (Duoneb I (11/20/21 00:15) Svn Small Volume Nebulizer (11/20/21 00:11) Iohexol Injection (Omnipaque 350 Mg/Ml 1 (11/20/21 01:45) Received Contrast (Hold Metformin- Contr (11/20/21 01:45) Ns (Ivpb) (Sodium Chloride 0.9% Ivpb Bag (11/20/21 01:45) Medications Given in ED Current Medications Medications Dose Ordered Sig/Talon Route Start Time Stop Time Status Last Admin Dose Admin Albuterol/ Ipratropium 3 ml ONCE ONCE INH 11/19/21 23:30 11/19/21 23:57 DC 11/20/21 00:00 3 ML Albuterol/ Ipratropium 3 ml STK-MED ONCE .ROUTE 11/19/21 23:47 11/19/21 23:57 DC 11/20/21 00:50 3 ML Iohexol 100 ml ONCE ONCE IV 11/20/21 01:45 11/20/21 01:48 DC 11/20/21 01:44 74 ML Sodium Chloride 100 ml ONCE ONCE IV 11/20/21 01:45 11/20/21 01:48 DC 11/20/21 01:44 80 ML Vital Signs/I&O 11/19/21 11/19/21 11/20/21 11/20/21 21:30 22:30 00:00 00:51 Temp 35.6 Pulse 107 Resp 20 B/P (MAP) 133/102 (112) Pulse Ox 100 100 100 O2 Delivery Nasal Cannula Nasal Cannula Nasal Cannula Nasal Cannula O2 Flow Rate 4.00 3.00 1.00 Capillary Refill : Less Than 3 Seconds Blood Pressure Mean: 112 Progress Note : Progress Note 1. ACUTE COPD EXACERBATION: - CXR: unremarkable - CTA CHEST: negative for PE - D-dimer: 2.95 - COVID Test/ Rapid Flu Test: negative - CBC: WBC normal - Duo Neb STAT x2 with significant improvement - Solumedrol 125mg iv STAT - Prescription for prednisone for 5 days - Follow up with PCP in the next 3 to 7 days -The patient was seen in the ED, and treated appropriately to presentation at a specific point in time. Patient is informed that there is a possibility that disease and illness can evolve and change in acuity rapidly or slowly after patient is discharged from the ER. Precautionary advice given to the patient for immediate return to ER if symptoms worsen or do not resolve, and to seek emergency care sooner rather than later. Pt also advised on the importance of PCP follow up and compliance with management and follow up plan with PCP and/or specialist, as this is part of the management plan. Pt verbally expressed understanding. 2. HYPONATREMIA: - s. Na is 128 - NS IVF - Due to alcoholism 3. ALCOHOL ADDICTION/ WITHDRAWAL: - Drinks everyday - CIWA - Ativan watch - Thiamine and Folic acid iv - Advised alcohol cessation Diagnostic Imaging Diagonstic Imaging: Xray Plain Films/CT/US/NM/MRI: chest Comments [facility]. [place], [place] NAME: JUAN MANUEL MARTIN Gosia [facility] REC#: [id number] PT STATUS: REG ER : 1950 PHYSICIAN: MANA LEYVA MD ADMIT DATE: 11/19/21/ER Draft Date of Exam:11/19/21 CHEST 1 VIEW, AP/PA ONLY INDICATION: Dyspnea. EXAMINATION: Single AP view of the chest was obtained. COMPARISON: Study of 09/30/2021. Background emphysema and prominent interstitial markings have not significantly changed. There is no consolidation, pneumothorax or pleural fluid. Surgical findings are again noted in the mediastinum with old right clavicle fracture. IMPRESSION: Stable chronic findings without acute abnormality detected. Dictated on workstation # [id number] Dict: 11/19/212224 Trans: 11/19/212226 [facility] [id number] Interpreted by: VALERIANO SHI MD Electronically signed by: Departure Impression Primary Impression: Acute exacerbation of chronic obstructive pulmonary disease (COPD) Additional Impressions: Alcohol addiction Qualified Codes: F10.20 - Alcohol dependence, uncomplicated Hyponatremia Disposition: HOME, SELF-CARE Condition: Improved Departure-Patient Inst. Referrals: TIERRA KWONG MD (PCP/Family) Primary Care Physician Patient Instructions: Chronic Obstructive Pulmonary Disease (COPD), Including Emphysema, Alcohol Use Disorder ED, COPD Exacerbation, Adult ED Add. Discharge Instructions: - Prescription for prednisone for 5 days - Follow up with PCP in the next 3 to 7 days - Use Albuterol as instructed by PCP for SOB - Return to ER if symptomss worsen - Alcohol cessation and rehab advised All discharge instructions reviewed with patient and/or family. Voiced understanding. Scripts Prednisone (Prednisone) 20 Mg Tab 40 MG PO DAILY for 5 Days, #5 TAB Prov: MANA LEYVA MD 11/20/21 MANA LEYVA MD Nov 19, 2021 21:57
[2021-11-19] MEDS ORDERED: methylPREDNISolone 125 MG (Solu-MEDROL) VIAL IV STA (22:01)
--- NOTE | 2021-11-19 22:28 | Diagnostic Imaging Report ---
INDICATION: Dyspnea. EXAMINATION: Single AP view of the chest was obtained. COMPARISON: Study of 09/30/2021. Background emphysema and prominent interstitial markings have not significantly changed. There is no consolidation, pneumothorax or pleural fluid. Surgical findings are again noted in the mediastinum with old right clavicle fracture. IMPRESSION: Stable chronic findings without acute abnormality detected. Dictated by: Dictated on workstation # [id number]
[2021-11-19 22:36] LABS: BASOPHILS # (AUTO) 0.1 10^3/uL (0.0-0.1); BASOPHILS % (AUTO) 1 % (0-10); EOSINOPHILS # (AUTO) 0.1 10^3/uL (0.0-0.3); EOSINOPHILS % (AUTO) 1 % (0-10); HEMATOCRIT 30 % (40-54); HEMOGLOBIN 10.4 g/dL (13.3-17.7); LYMPHOCYTES # (AUTO) 1.6 10^3/uL (1.0-4.0); LYMPHOCYTES % (AUTO) 27 % (12-44); MEAN CORPUSCULAR HEMOGLOBIN 33 pg (25-34); MEAN CORPUSCULAR HGB CONC 35 g/dL (32-36); MEAN CORPUSCULAR VOLUME 96 fL (80-99); MEAN PLATELET VOLUME 8.6 fL (9.0-12.2); MONOCYTES % (AUTO) 17 % (0-12); NEUTROPHILS # (AUTO) 3.4 10^3/uL (1.8-7.8); NEUTROPHILS % (AUTO) 54 % (42-75); PLATELET COUNT 295 10^3/uL (130-400); WHITE BLOOD COUNT 6.2 10^3/uL (4.3-11.0)
[2021-11-19 22:51] LABS: ALBUMIN 3.9 GM/DL (3.2-4.5); CHLORIDE 88 MMOL/L (98-107); POTASSIUM 3.7 MMOL/L (3.6-5.0); SODIUM 128 MMOL/L (135-145)
[2021-11-19 22:52] LABS: CALCIUM 8.8 MG/DL (8.5-10.1)
[2021-11-19 22:53] LABS: GLUCOSE 91 MG/DL (70-105); TOTAL PROTEIN 7.1 GM/DL (6.4-8.2)
[2021-11-19 22:54] LABS: CARBON DIOXIDE 26 MMOL/L (21-32)
[2021-11-19 22:55] LABS: BILIRUBIN,TOTAL 0.6 MG/DL (0.1-1.0)
[2021-11-19 22:57] LABS: ALKALINE PHOSPHATASE 141 U/L (40-136); CREATININE SERUM 0.62 MG/DL (0.60-1.30); GFR ESTIMATED 102
[2021-11-19 22:58] LABS: BUN/CREATININE RATIO 6
[2021-11-19 22:59] LABS: FIBRIN DEGRADATION PRODUCTS 2.95 UG/ML (0.00-0.49); PROTHROMBIN TIME PATIENT 13.1 SEC (12.2-14.7)
[2021-11-19 23:00] LABS: ALANINE AMINOTRANSFERASE 38 U/L (0-55)
[2021-11-19] MEDS ORDERED: LORazepam INJ 2 MG/ML (ATIVAN) VIAL IVP STA (23:18)
[2021-11-19 23:24] LABS: BILIRUBIN,URINE NEGATIVE (NEGATIVE); CLARITY,URINE CLEAR; COLOR,URINE YELLOW; GLUCOSE, URINE (UA) NEGATIVE (NEGATIVE); KETONES,URINE NEGATIVE (NEGATIVE); LEUKOCYTE ESTERASE ,URINE NEGATIVE (NEGATIVE); NITRITE,URINE NEGATIVE (NEGATIVE); PROTEIN,URINE NEGATIVE (NEGATIVE)
[2021-11-19 23:30] LABS: BACTERIA,URINE TRACE /HPF
[2021-11-19] MEDS ORDERED: RT-ALBUTEROL/IPRATROPIUM 3 ML (DUONEB) VIAL INH ONE (23:30)
[2021-11-19] MEDS ORDERED: RT-ALBUTEROL/IPRATROPIUM 3 ML (DUONEB) VIAL ONE (23:47)
[2021-11-20] MEDS ORDERED: RT-ALBUTEROL/IPRATROPIUM 3 ML (DUONEB) VIAL INH ONE (00:15)
[2021-11-20] MEDS ORDERED: NS 100 ML (IVPB) BAG IV ONE (01:45)
[2021-11-20] MEDS ORDERED: HOLD METFORMIN - RECEIVED CONTRAST 20 ML VIAL IV SCH (01:45)
[2021-11-20] MEDS ORDERED: IOHEXOL 350 MG/ML 100 ML (OMNIPAQUE 350) VIAL IV ONE (01:45)
[2021-11-20] MEDS ORDERED: PRD20T PO (02:27)
[2021-11-20 04:45] VITALS: BP 121/82
--- NOTE | 2021-11-20 08:06 | Diagnostic Imaging Report ---
Indication: Chest pain and shortness of breath. Comparison is made with prior exam of 09/24/2021 Technique: Multiple contiguous axial images were obtained through the chest after uneventful bolus administration of intravenous contrast. Sagittal, coronal and MIP reconstructions were performed. FINDINGS: There is some centrilobular emphysema. There are no discrete pulmonary nodules, masses or infiltrates. No pleural or pericardial fluid. There is no pneumothorax. No pathologically enlarged adenopathy in the chest. Heart size is normal. The thoracic aorta is normal caliber without evidence of dissection. There are no filling defects within the pulmonary arteries to suggest pulmonary embolism. There are some coronary artery calcifications. There has been a previous median sternotomy. The visualized intra-abdominal structures are unremarkable. IMPRESSION: No evidence of aortic aneurysm, dissection or pulmonary embolism. Centrilobular emphysema. Coronary artery calcification. Dictated by: Dictated on workstation # [id number]
[2021-11-20] MEDS ORDERED: THIAMINE INJECTION 100 MG, FOLIC ACID INJECTION 1 MG in NS (IVPB) 50 ML IV SCH (09:00)
== END 2021-11-20 04:51 | disposition home or self-care (01) ==
LOC: EDUNIT# 21:27 → ER 21:52
DX: J44.1 Chronic obstructive pulmonary disease with (acute) exacerbation (principal); F10.20 Alcohol dependence, uncomplicated; E87.1 Hypo-osmolality and hyponatremia; Z20.822 Contact with and (suspected) exposure to COVID-19
CPT/HCPCS: 36415; 71045; 71275; 80053; 81000; 83880; 84484; 85025; 85379; 85610; 85730; 87636; 93005; 94640

== ENCOUNTER 2022-04-11 12:42 | Emergency (ER) | payer MEDICARE ==
[~2022-04-11 12:42] MED LIST changes: +ALBU8.5H6 IH; +PRD20T PO; -RT-ALBUINH IH
[2022-04-11 13:15] LABS: BASOPHILS # (AUTO) 0.1 10^3/uL (0.0-0.1); BASOPHILS % (AUTO) 1 % (0-10); EOSINOPHILS # (AUTO) 0.1 10^3/uL (0.0-0.3); EOSINOPHILS % (AUTO) 1 % (0-10); HEMATOCRIT 36 % (40-54); HEMOGLOBIN 12.5 g/dL (13.3-17.7); LYMPHOCYTES # (AUTO) 0.8 10^3/uL (1.0-4.0); LYMPHOCYTES % (AUTO) 10 % (12-44); MEAN CORPUSCULAR HEMOGLOBIN 36 pg (25-34); MEAN CORPUSCULAR HGB CONC 35 g/dL (32-36); MEAN CORPUSCULAR VOLUME 106 fL (80-99); MEAN PLATELET VOLUME 9.4 fL (9.0-12.2); MONOCYTES # (AUTO) 0.6 10^3/uL (0.0-1.0); MONOCYTES % (AUTO) 7 % (0-12); NEUTROPHILS # (AUTO) 6.5 10^3/uL (1.8-7.8); NEUTROPHILS % (AUTO) 80 % (42-75); PLATELET COUNT 225 10^3/uL (130-400); WHITE BLOOD COUNT 8.1 10^3/uL (4.3-11.0)
[2022-04-11 13:24] LABS: INR 0.9 (0.8-1.4); PROTHROMBIN TIME PATIENT 12.3 SEC (12.2-14.7)
[2022-04-11 13:28] LABS: BILIRUBIN,TOTAL 0.7 MG/DL (0.1-1.0); CALCIUM 9.6 MG/DL (8.5-10.1); CREATININE SERUM 0.65 MG/DL (0.60-1.30); POTASSIUM 4.2 MMOL/L (3.6-5.0); TOTAL PROTEIN 7.1 GM/DL (6.4-8.2)
--- NOTE | 2022-04-11 14:03 | Diagnostic Imaging Report ---
INDICATION: Chest pain. EXAMINATION: Portable chest at 1:56 PM. FINDINGS: There are postop changes from CABG surgery. The heart size and pulmonary vascularity are normal. The lungs are clear. There are no effusions or pneumothoraces. IMPRESSION: No acute abnormalities in the chest. Dictated by: Dictated on workstation # [id number]
--- NOTE | 2022-04-11 14:28 | ED Chest Pain ---
General Chief Complaint: Respiratory Problems Stated Complaint: CHEST PAINS Nursing Triage Note: PT TO [facility] WITH C/O WHEEZING ON ARRIVAL, SOB AND CP SINCE 11 THIS AM. PT REPORTED TAKING NITRO X5 AT HOME AND AN UNKNOWN AMOUNT OF ASA TODAY. DUONEB GIVEN EN ROUTE BY EMS Source: patient, EMS Exam Limitations: no limitations (Patient is a poor historian) History of Present Illness Date Seen by Provider: Apr 11, 2022 Time Seen by Provider: 12:50 Allergies and Home Medications Allergies Coded Allergies: No Known Drug Allergies (Unverified , 12/12/17) Patient Home Medication List Albuterol Sulfate (Ventolin Hfa) 1 Puff Puff, 2 PUFF IH Q4H PRN for SHORTNESS OF BREATH, (Reported) Entered as Reported by: SUJATA COBOS on 09/07/21 1504 Albuterol Sulfate (Albuterol Sulfate) 2.5 Mg/0.5 Ml Vial.neb, 2.5 MG INH Q6H PRN for SHORTNESS OF BREATH, (Reported) Entered as Reported by: SUJATA COBOS on 09/07/21 1504 Amlodipine Besylate (Amlodipine Besylate) 5 Mg Tablet, 5 MG PO DAILY Prescribed by: ALEXANDRA JUDGE on 10/13/21 0557 Apixaban (Eliquis) 5 Mg Tablet, 5 MG PO BID, (Reported) Entered as Reported by: SUJATA COBOS on 09/27/21 1027 Clopidogrel Bisulfate (Clopidogrel) 75 Mg Tablet, 75 MG PO DAILY, (Reported) Entered as Reported by: SUJATA COBOS on 09/27/21 1027 Gabapentin (Gabapentin) 400 Mg Capsule, 400 MG PO TID, (Reported) Entered as Reported by: SUJATA COBOS on 09/27/21 1027 Hydrocodone/Acetaminophen (Hydrocodone-Acetamin 5-325 mg) 5 Mg-325 Mg Tablet, 1 TAB PO Q4H PRN for PAIN-MODERATE (5-7) Prescribed by: DYLAN CANADA on 11/05/21 1357 Melatonin (Melatonin) 3 Mg Tablet, 3 MG PO HS PRN for SLEEP Prescribed by: ANAIS HDZ on 09/29/21 1025 Metoprolol Tartrate (Metoprolol Tartrate) 25 Mg Tablet, 25 MG PO BID, (Reported) Entered as Reported by: SUJATA COBOS on 09/27/21 1027 Morphine Sulfate (Morphine Sulfate ER) 15 Mg Tablet.er, 15 MG PO Q12HR Prescribed by: ALEXANDRA JUDGE on 10/13/21 0558 Morphine Sulfate (Morphine Sulfate IR Tablet) 15 Mg Tablet, 30 MG PO Q4H PRN for PAIN-SEVERE (8-10) Prescribed by: ALEXANDRA JUDGE on 10/13/21 0558 Multivitamin/Iron/Folic Acid (Tab-A-Andrei Multivit with Iron) 18 Mg Iron-400 Mcg Tablet, 1 EA PO DAILY@0700 Prescribed by: ALEXANDRA JUDGE on 10/13/21 05 Prednisone (Prednisone) 20 Mg Tab, 40 MG PO DAILY Prescribed by: MANA LEYVA MD on 11/20/21 0227 Sennosides/Docusate Sodium (Stool Softener-Laxative Tablet) 8.6 Mg-50 Mg Tablet, 1 EA PO BID Prescribed by: ALEXANDRA JUDGE on 10/13/21 05 Past Ekueird-Ukszjr-Tvqxfk Hx Patient Social History Tobacco Use?: No Use of E-Cig and/or Vaping dev: No Substance use?: No Alcohol Use?: Yes Alcohol Frequency: Daily Pt feels they are or have been: No Immunizations Up To Date Tetanus Booster (TDap): Unknown Influenza Vaccine Up-to-Date: No; Not Current First/Initial COVID19 Vaccinat: ONE DOSE Second COVID19 Vaccination Joseph: TWO SHOTS Third COVID19 Vaccination Date: ONE DOSE Seasonal Allergies Seasonal Allergies: No Past Medical History Surgery/Hospitalization HX: 09/25 RIGHT HIP NAILING HTN, HLD, EMPHYSEMA CABG, STENTS Surgeries: Yes (CABG,PANCREAS SURGERY,VASECTOMY, STENTS) Abdominal, Cardiac, CABG, Coronary Stent, Vasectomy Respiratory: Yes COPD, Emphysema Currently Using CPAP: No Currently Using BIPAP: No Cardiac: Yes Atrial Fibrillation, Coronary Artery Disease, Heart Attack, High Cholesterol, Hypertension Neurological: No Reproductive Disorders: No Genitourinary: No Gastrointestinal: Yes Gastroesophageal Reflux, Esophageal Varices, Irritable Bowel Musculoskeletal: Yes (CHRONIC NECK AND BACK PAIN ) Degenerate Disk Disease, Chronic Back Pain, Fractures Endocrine: No HEENT: Yes Loss of Vision: Denies Hearing Impairment: Denies Cancer: No Psychosocial: Yes Anxiety, Depression Integumentary: No Blood Disorders: No Family Medical History No Pertinent Family Hx Physical Exam Vital Signs Vital Signs - First Documented 04/11/22 12:45 Temp 36.4 Pulse 80 Resp 22 B/P (MAP) 119/74 (89) Pulse Ox 99 O2 Delivery Nasal Cannula O2 Flow Rate 2.00 Capillary Refill : Height, Weight, BMI Height: 5'11.00" Weight: 176lbs. 1.6oz. 79.974556eu; 26.00 BMI Method: Progress/Results/Core Measures Results/Orders Lab Results Laboratory Tests Test 04/11/22 12:55 04/11/22 13:29 04/11/22 15:02 Range/Units White Blood Count 8.1 4.3-11.0 10^3/uL Red Blood Count 3.43 L 4.30-5.52 10^6/uL Hemoglobin 12.5 L 13.3-17.7 g/dL Hematocrit 36 L 40-54 % Mean Corpuscular Volume 106 H 80-99 fL Mean Corpuscular Hemoglobin 36 H 25-34 pg Mean Corpuscular Hemoglobin Concent 35 32-36 g/dL Red Cell Distribution Width 13.7 10.0-14.5 % Platelet Count 225 130-400 10^3/uL Mean Platelet Volume 9.4 9.0-12.2 fL Immature Granulocyte % (Auto) 1 % Neutrophils (%) (Auto) 80 H 42-75 % Lymphocytes (%) (Auto) 10 L 12-44 % Monocytes (%) (Auto) 7 0-12 % Eosinophils (%) (Auto) 1 0-10 % Basophils (%) (Auto) 1 0-10 % Neutrophils # (Auto) 6.5 1.8-7.8 10^3/uL Lymphocytes # (Auto) 0.8 L 1.0-4.0 10^3/uL Monocytes # (Auto) 0.6 0.0-1.0 10^3/uL Eosinophils # (Auto) 0.1 0.0-0.3 10^3/uL Basophils # (Auto) 0.1 0.0-0.1 10^3/uL Immature Granulocyte # (Auto) 0.0 0.0-0.1 10^3/uL Prothrombin Time 12.3 12.2-14.7 SEC INR Comment 0.9 0.8-1.4 Activated Partial Thromboplast Time 25 24-35 SEC Sodium Level 136 135-145 MMOL/L Potassium Level 4.2 3.6-5.0 MMOL/L Chloride Level 96 L 98-107 MMOL/L Carbon Dioxide Level 24 21-32 MMOL/L Anion Gap 16 H 5-14 MMOL/L Blood Urea Nitrogen 6 L 7-18 MG/DL Creatinine 0.65 0.60-1.30 MG/DL Estimat Glomerular Filtration Rate 101 BUN/Creatinine Ratio 9 Glucose Level 134 H 70-105 MG/DL Calcium Level 9.6 8.5-10.1 MG/DL Corrected Calcium 9.6 8.5-10.1 MG/DL Magnesium Level 2.0 1.6-2.4 MG/DL Total Bilirubin 0.7 0.1-1.0 MG/DL Aspartate Amino Transf (AST/SGOT) 36 H 5-34 U/L Alanine Aminotransferase (ALT/SGPT) 23 0-55 U/L Alkaline Phosphatase 80 40-136 U/L Myoglobin 47.4 10.0-92.0 NG/ML Troponin I < 0.028 < 0.028 <0.028 NG/ML Total Protein 7.1 6.4-8.2 GM/DL Albumin 4.0 3.2-4.5 GM/DL Influenza Type A (RT-PCR) Not Detected Not Detecte Influenza Type B (RT-PCR) Not Detected Not Detecte SARS-CoV-2 RNA (RT-PCR) Not Detected Not Detecte My Orders Orders - DIPESH MARCANO MD Cbc With Automated Diff (04/11/22 13:09) Magnesium (04/11/22 13:09) Chest 1 View, Ap/Pa Only (04/11/22 13:09) Ekg Tracing (04/11/22 13:09) Comprehensive Metabolic Panel (04/11/22 13:09) Myoglobin Serum (04/11/22 13:09) Protime With Inr (04/11/22 13:09) Partial Thromboplastin Time (04/11/22 13:09) O2 (04/11/22 13:09) Monitor-Rhythm Ecg Trace Only (04/11/22 13:09) Lipid Panel (04/12/22 06:00) Ed Iv/Invasive Line Start (04/11/22 13:09) Troponin I Meigs (04/11/22 13:09) Covid 19 Inhouse Test (04/11/22 13:23) Influenza A And B By Pcr (04/11/22 13:23) Troponin I Cleo (04/11/22 15:00) Lorazepam Tablet (Ativan Tablet) (04/11/22 16:25) Pantoprazole Tablet (Protonix Tablet) (04/11/22 16:30) Alcohol (04/11/22 16:27) Vital Signs/I&O 04/11/22 04/11/22 12:45 13:00 Temp 36.4 Pulse 80 Resp 22 B/P (MAP) 119/74 (89) Pulse Ox 99 O2 Delivery Nasal Cannula Nasal Cannula O2 Flow Rate 2.00 2.00 Blood Pressure Mean: 89 Initial ECG Impression Date: Apr 11, 2022 Initial ECG Impression Time: 12:49 Initial ECG Rate: 79 Initial ECG Rhythm: Normal Sinus Comment Sinus rhythm with no ST elevation or depression. No significant abnormal intervals or axis deviation. Diagnostic Imaging Diagonstic Imaging: Xray Plain Films/CT/US/NM/MRI: chest Comments NAME: JUAN MANUEL MARTIN [facility] REC#: [id number] PT STATUS: REG ER : 1950 PHYSICIAN: DIPESH MARCANO MD ADMIT DATE: 04/11/22/ER Draft Date of Exam:04/11/22 CHEST 1 VIEW, AP/PA ONLY INDICATION: Chest pain. EXAMINATION: Portable chest at 1:56 PM. FINDINGS: There are postop changes from CABG surgery. The heart size and pulmonary vascularity are normal. The lungs are clear. There are no effusions or pneumothoraces. IMPRESSION: No acute abnormalities in the chest. Dictated on workstation # [id number] Dict: 04/11/22 1359 Trans: 04/11/22 1403 [id number] Interpreted by: AMRIK MANCUSO MD Departure Impression Primary Impression: Chest pain Qualified Codes: R07.9 - Chest pain, unspecified Additional Impressions: Acute exacerbation of chronic obstructive pulmonary disease (COPD) HTN (hypertension) Qualified Codes: I10 - Essential (primary) hypertension Alcohol dependence Qualified Codes: F10.239 - Alcohol dependence with withdrawal, unspecified Disposition: HOME, SELF-CARE Condition: Improved Departure-Patient Inst. Decision time for Depature: 16:28 Referrals: TOM YORK MD, BENJAMEN H MD (PCP/Family) Primary Care Physician Patient Instructions: Alcohol Withdrawal, Chest Pain Add. Discharge Instructions: Continue to take aspirin daily and follow-up with Dr. York as soon as possible. Please call tomorrow morning for an appointment time. Start Protonix (pantoprazole). This is an antacid medication that will help protect your stomach. Your chest pain may be related to irritation of your stomach and esophagus, and Protonix can help improve that. Work toward quitting alcohol. Gradually taper off of your alcohol consumption in a controlled fashion. Avoid stopping alcohol abruptly as this may cause life-threatening withdrawal and seizures. Return to the emergency room if you have worsening symptoms or recurrent episodes of chest pain. You may use your albuterol nebulizer up to what dose every 4 hours as needed for shortness of air or wheezing. If you find yourself needing more frequent doses, please return to care for further evaluation. All discharge instructions reviewed with patient and/or family. Voiced understanding. Scripts Pantoprazole Sodium (Protonix) 40 Mg Tablet. 40 MG PO DAILY, #30 TAB Prov: DIPESH MARCANO MD 04/11/22 Copy Copies To 1: TOM YORK MD Copies To 2: [facility]/DIPESH DUMONT MD Apr 11, 2022 14:28
[2022-04-11] MEDS ORDERED: LORazepam 0.5 MG (ATIVAN) TABLET PO STA (16:25)
[2022-04-11] MEDS ORDERED: PANTOPRAZOLE 40 MG (PROTONIX) TAB PO ONE (16:30)
[2022-04-11] MEDS ORDERED: PANT40TA2 PO (16:30)
[2022-04-11 16:40] VITALS: BP 119/99
== END 2022-04-11 16:42 | disposition home or self-care (01) ==
LOC: EDUNIT# 12:42 → ER 12:43
DX: J44.1 Chronic obstructive pulmonary disease with (acute) exacerbation (principal); I10 Essential (primary) hypertension; F10.20 Alcohol dependence, uncomplicated; Y90.0 Blood alcohol level of less than 20 mg/100 ml; Z20.822 Contact with and (suspected) exposure to COVID-19
CPT/HCPCS: 71045; 80053; 83735; 83874; 84484; 85025; 85610; 85730; 87636; 93005; 93041; 99284; G0480; 36415; 80320

== ENCOUNTER 2022-06-19 06:10 | Inpatient (IN) | payer MEDICARE ==
[~2022-06-19] VITALS: Ht 180 cm; Wt 70.1 kg
[2022-06-19] VITALS (7 sets, daily range): BP systolic 123–169; BP diastolic 73–90
[~2022-06-19 06:10] MED LIST changes: +PANT40TA2 PO; +SENN-271 PO; -SENN1TAB76 PO
[2022-06-19] MEDS ORDERED: methylPREDNISolone 125 MG (Solu-MEDROL) VIAL IV STA (06:17)
[2022-06-19] MEDS ORDERED: RT-ALBUTEROL/IPRATROPIUM 3 ML (DUONEB) VIAL INH ONE (06:30)
[2022-06-19] MEDS ORDERED: CEFEPIME INJECTION 1,000 MG in NS (IVPB) 50 ML IV ONE (06:30)
[2022-06-19 06:33] LABS: BASOPHILS # (AUTO) 0.1 10^3/uL (0.0-0.1); BASOPHILS % (AUTO) 1 % (0-10); EOSINOPHILS # (AUTO) 0.1 10^3/uL (0.0-0.3); EOSINOPHILS % (AUTO) 2 % (0-10); HEMATOCRIT 35 % (40-54); HEMOGLOBIN 12.3 g/dL (13.3-17.7); LYMPHOCYTES # (AUTO) 0.6 10^3/uL (1.0-4.0); LYMPHOCYTES % (AUTO) 12 % (12-44); MEAN CORPUSCULAR HEMOGLOBIN 36 pg (25-34); MEAN CORPUSCULAR HGB CONC 35 g/dL (32-36); MEAN CORPUSCULAR VOLUME 103 fL (80-99); MONOCYTES # (AUTO) 0.6 10^3/uL (0.0-1.0); MONOCYTES % (AUTO) 12 % (0-12); NEUTROPHILS % (AUTO) 73 % (42-75); PLATELET COUNT 232 10^3/uL (130-400); WHITE BLOOD COUNT 5.4 10^3/uL (4.3-11.0)
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
[2022-06-19 06:35] LABS: ALBUMIN 4.2 GM/DL (3.2-4.5); CHLORIDE 68 MMOL/L (98-107)
[2022-06-19 06:36] LABS: AMYLASE 25 U/L (25-125); CALCIUM 9.3 MG/DL (8.5-10.1)
[2022-06-19 06:37] LABS: GLUCOSE 115 MG/DL (70-105); TOTAL PROTEIN 7.1 GM/DL (6.4-8.2)
[2022-06-19 06:38] LABS: CARBON DIOXIDE 37 MMOL/L (21-32); INR 0.8 (0.8-1.4)
[2022-06-19 06:39] LABS: BILIRUBIN,TOTAL 0.7 MG/DL (0.1-1.0)
[2022-06-19 06:41] LABS: ALKALINE PHOSPHATASE 112 U/L (40-136); CREATININE SERUM 0.57 MG/DL (0.60-1.30); GFR ESTIMATED 105; SODIUM 120 MMOL/L (135-145)
[2022-06-19 06:42] LABS: BUN/CREATININE RATIO 7
[2022-06-19 06:44] LABS: ALANINE AMINOTRANSFERASE 19 U/L (0-55); MAGNESIUM 1.8 MG/DL (1.6-2.4)
[2022-06-19 06:45] LABS: CREATINE KINASE 76 U/L (30-200); LIPASE 12 U/L (8-78)
[2022-06-19] MEDS ORDERED: NS IV 1000 ML 1,000 ML IV SCH ×2 (06:45→10:45)
[2022-06-19] MEDS ORDERED: LIDOCAINE UROJET 2% GEL 10 ML PKG TOP ONE (06:45)
[2022-06-19 06:52] LABS: ABG BASE EXCESS 18.7 MMOL/L (-2.5-2.5); ABG OXYGEN SATURATION 100 % (94-100); ABG PO2 158 MMHG (79-93)
[2022-06-19 06:53] LABS: ALLENS TEST YES-POS; INSPIRED O2 4; PATIENT TEMP 35.4; VENTILATOR NO
[2022-06-19 06:54] LABS: ABG PCO2 91 MMHG (35-45); ABG PH 7.31 (7.37-7.43)
--- NOTE | 2022-06-19 06:55 | Diagnostic Imaging Report ---
INDICATION: Dyspnea. Comparison 04/11/2022 FINDINGS: Air trapping and COPD chronic. Sternal wires midline. No effusion or pneumothorax. Old deformity to the right clavicle chronic. No focal consolidation. IMPRESSION: No significant change from prior. Dictated by: Dictated on workstation # [id number]
[2022-06-19 06:58] LABS: BILIRUBIN,URINE NEGATIVE (NEGATIVE); CLARITY,URINE CLEAR; COLOR,URINE YELLOW; GLUCOSE, URINE (UA) NEGATIVE (NEGATIVE); KETONES,URINE TRACE (NEGATIVE); LEUKOCYTE ESTERASE ,URINE NEGATIVE (NEGATIVE); NITRITE,URINE NEGATIVE (NEGATIVE); PH,URINE 7.5 (5-9); PROTEIN,URINE NEGATIVE (NEGATIVE)
[2022-06-19 07:09] LABS: CREATINE KINASE MB 7.7 NG/ML (<6.6)
[2022-06-19] MEDS ORDERED: LORazepam INJ 2 MG/ML (ATIVAN) VIAL IVP ONE (07:15)
[2022-06-19 07:17] LABS: BACTERIA,URINE NEGATIVE /HPF
[2022-06-19 07:18] LABS: AMPHETAMINE SCREEN, URINE NEGATIVE (NEGATIVE); BARBITURATE SCREEN URINE NEGATIVE (NEGATIVE); BENZODIAZEPINES SCREEN URINE NEGATIVE (NEGATIVE); CANNABINOID SCREEN, URINE NEGATIVE (NEGATIVE); COCAINE SCREEN URINE NEGATIVE (NEGATIVE); METHADONE STAT NEGATIVE (NEGATIVE); OPIATE SCREEN URINE NEGATIVE (NEGATIVE); OXYCODONE STAT NEGATIVE (NEGATIVE); PROPOXYPHENE STAT NEGATIVE (NEGATIVE); TRICYCLIC ANTIDEPRESSANTS SCRE NEGATIVE (NEGATIVE)
[2022-06-19 07:26] LABS: ERYTHROCYTE SEDIMENTATION RATE 7 MM/HR (0-30)
--- NOTE | 2022-06-19 07:48 | History & Physical-Hospitalist ---
History of Present Illness HPI/Chief Complaint CC: Severe alcohol withdrawal with hyponatremia and CO2 narcosis HPI: This is a 71yoWM clinic patient of [facility] who has a h/o alcoholism and respiratory failure who presented to the ER via EMS due to found down at home. His alcohol level was 0 and he is a heavy user of alcohol. Patient was noted to have CO2 narcosis requiring biPAP and multipl doctors witnessed the conversation of DNR/DNI per . ABG repeat appears worse and patient has a very poor prognosis. Treating for AECOPD and PNA. Source: family, RN/MD, old records Exam Limitations: clinical condition Date Seen 06/19/22 Time Seen by a Provider: 10:00 Attending Physician Gayle Orr MD PCP Admitting Physician: Attending Physician: Referring Physician Date of Admission Home Medications & Allergies Home Medications Reviewed patient Home Medication Reconciliation performed by pharmacy medication reconciliations nuclear fuel enrichment technician and/or nursing. Patients Allergies have been reviewed. Allergies Allergies Coded Allergies No Known Drug Allergies (Jxgacaldck07/2/18) Past Nbdeylm-Dswbii-Hrwkzh Hx Patient Social History Marrital Status: Employed/Student: retired Smoking Status: Current Everyday Smoker Substance use?: No Alcohol Use?: Yes Pt feels they are or have been: No Immunizations Up To Date First/Initial COVID19 Vaccinat: x2 Second COVID19 Vaccination Joseph: TWO SHOTS Tetanus Booster (TDap): Unknown Date of Pneumonia Vaccine: Aug 15, 2016 Seasonal Allergies Seasonal Allergies: No Current Status Advance Directives: No Communicates: Verbally Primary Language: Tajik Preferred Spoken Language: Tajik Is interpretation needed?: No Implanted or Applied Medical D: Orthopedic hardware Past Medical History Surgeries: Abdominal, Cardiac, CABG, Coronary Stent, Orthopedic, Pancreatic, Vasectomy COPD, Emphysema Currently Using CPAP: No Currently Using BIPAP: No Atrial Fibrillation, Coronary Artery Disease, Heart Attack, High Cholesterol, Hypertension Gastroesophageal Reflux, Esophageal Varices, Irritable Bowel Degenerate Disk Disease, Chronic Back Pain, Fractures Loss of Vision: Denies Hearing Impairment: Denies Anxiety, Depression Blood Disorders: No Family Medical History No Pertinent Family Hx Review of Systems Constitutional: see HPI Physical Exam Physical Exam Vital Signs Vital Signs - First Documented 06/19/22 10:57 FiO2 100 Capillary Refill : Less Than 3 Seconds Height, Weight, BMI Height: 5'11.00" Weight: 176lbs. 1.6oz. [id number]; 24.00 BMI Method: General Appearance: Chronically ill, Other (semi-comatose on biPAP) Respiratory: Accessory Muscle Use, Decreased Breath Sounds Cardiovascular: Irregularly Irregular, Tachycardia Neurologic/Psychiatric: Disoriented Results Results/Procedures Labs Laboratory Tests 06/19/22 06:15 06/19/22 11:40 Patient resulted labs reviewed. Assessment/Plan Admission Diagnosis Assessment: Acute hypercapneic hypoxic respiratory failure CO2 narcosis requiring biPAP Hyponatremia AECOPD Alcohol withdrawal AF CAD Sepsis PNA Plan: Alcohol withdrawal Precedex IV abx O2 IV steroids DNR DNI Fluid restriction Admission Status: Inpatient Order (span 2 midnights) Reason for Inpatient Admission: resp failure ALEXANDRA JUDGE DO Jun 19, 2022 07:48
[2022-06-19] MEDS ORDERED: ENOXAPARIN 80 MG/0.8 ML (LOVENOX) SYR SC ONE (08:00)
[2022-06-19] MEDS ORDERED: CATHETER FLUSH 10 ML SYR IV PRN (08:15)
[2022-06-19] MEDS ORDERED: IOHEXOL 350 MG/ML 100 ML (OMNIPAQUE 350) VIAL IV ONE (08:15)
[2022-06-19] MEDS ORDERED: NS 100 ML (IVPB) BAG IV ONE (08:15)
--- NOTE | 2022-06-19 08:48 | Diagnostic Imaging Report ---
PROCEDURE: CT thoracic and lumbar spine without contrast. TECHNIQUE: Multiple contiguous axial images were obtained through the thoracic and lumbar spine without the use of intravenous contrast. Sagittal and coronal reformations were then performed. All CT scans use one or more of the following dose optimizing techniques: automated exposure control, MA and/or KvP adjustment based on a patient size and exam type, or iterative reconstruction. INDICATION: Back pain. FINDINGS: The alignment of the thoracic spine is grossly normal. There is a questionable mild compression fracture involving superior endplate of T4. The remaining thoracic vertebral body heights are well maintained. No other fracture or traumatic subluxation. There is no bony encroachment upon spinal canal. There are diffuse degenerative changes. The lungs are essentially clear. No pleural or pericardial fluid. The alignment of the lumbar spine is normal. There is a vacuum disc at L1-L2 and L3-L4. No fractures are identified. There is no significant bony encroachment upon spinal canal. There is some lower lumbar hypertrophic degenerative facet disease. IMPRESSION: Mild age-indeterminate compression fracture involving superior endplate of T4. If there is clinical concern that this is may be acute, further evaluation with MRI should be considered. Otherwise moderate diffuse thoracolumbar spondylosis as described. Dictated by: Dictated on workstation # [id number]
--- NOTE | 2022-06-19 09:01 | Diagnostic Imaging Report ---
INDICATION: Trauma Altered mental status, worsened shortness of breath. CTA chest, abdomen and pelvis Thin axial sections through the chest, abdomen and pelvis are obtained following intravenous contrast bolus. Multiplanar MIP images were reconstructed and reviewed. All CT scans use one or more of the following dose optimizing techniques: automated exposure control, MA and/or KvP adjustment based on patient size and exam type or iterative reconstruction. CT angiogram chest: The atherosclerotic aorta is patent and nonaneurysmal and nonacute. There are coronary atherosclerotic vascular calcifications. There is no pulmonary arterial filling defect or PE. There is no pneumothorax. No findings of pneumonia or aspiration. There is slight juxta fissural and dependent subsegmental atelectasis. Lungs otherwise clear. No mass or adenopathy. No chest wall hematoma. No displaced fracture deformity. Abdomen/pelvis: There is no bowel, biliary or urinary tract obstruction. No intra or retroperitoneal hemorrhage. No ascites, abscess, hematoma or other acute fluid collection. There is no free air. The urinary bladder catheterized. There is noninflamed sigmoid diverticulosis. There were no features of appendicitis. No acute hepatobiliary abnormality. Spleen, adrenals and pancreas nonacute. No free air. No focal inflammatory process. There is extensive aortoiliac and mesenteric atherosclerotic vascular calcifications. No findings of acute end organ ischemia. IMPRESSION: No acute-appearing abnormality at CT angiogram evaluation of the chest and postcontrast enhanced abdominal pelvic CT. Dictated by: Dictated on workstation # [id number]
--- NOTE | 2022-06-19 09:08 | Diagnostic Imaging Report ---
PROCEDURE: CT head, face, and cervical spine without contrast. TECHNIQUE: Multiple contiguous axial images were obtained through the head, neck, and facial bones without the use of intravenous contrast. Sagittal and coronal reformations through the cervical spine and facial bones were also performed. Auto Exposure Controls were utilized during the CT exam to meet ALARA standards for radiation dose reduction. INDICATION: Two days of altered mental status. Head: There is no hemorrhage, hydrocephalus, cerebral edema, mass, mass effect nor evidence for elevated pressures. Some mild chronic atrophy and white matter small vessel disease stable from previous studies. An old left thalamic lacunar infarct chronic. Intracranial vascular calcifications chronic. No pneumocephalus. No hemo-sinus. Facial bones: Old nasal bone deformities chronic. There is no hemo-sinus, no acute facial fracture. Orbits nonacute. There is no mastoid effusion and middle ear cavities clear. Cervical spine: There is an old appearing T4 superior end plate concavity without retropulsion. This appears chronic. The cervical statures themselves stable and normal. The alignment is anatomic. No paravertebral hemorrhage. No facet dislocation. Degenerative changes to the discs, endplates and facets chronic. THere is carotid vascular calcifications chronic. There is an old healed right clavicular deformity. IMPRESSION: CT HEAD: Chronic senescent changes with no hemorrhage or acute intracranial pathology. CT FACIAL BONES: Old nasal bone fractures with no hemo-sinus or acute facial fracture. CT CERVICAL SPINE: Old T3 superior endplate compression. No cervical spinal fracture or traumatic malalignment. No acute-appearing abnormality. Dictated by: Dictated on workstation # [id number]
[2022-06-19 09:24] LABS: ABG BASE EXCESS 15.4 MMOL/L (-2.5-2.5); ABG OXYGEN SATURATION 101 % (94-100); ABG PO2 368 MMHG (79-93)
--- NOTE | 2022-06-19 09:26 | Consultation-Cardiology ---
HPI-Cardiology Cardiology Consultation Date of Consultation 06/19/22 Date of Admission Time Seen by Provider: 09:20 Indication: Acute respiratory failure HPI 71-year-old gentleman with history of coronary artery disease, CABG, alcoholism, he has stopped drinking for the past few days. His noticed that he was having increasing tremor and he was having increasing shortness of breath. Came into the emergency room, was having significant tremor and was in respiratory failure. He was placed on BiPAP and given Ativan. On my evaluation he was sleeping, history was obtained by interviewing his , she has a limited knowledge of his history. Home Medications & Allergies Allergies: Coded Allergies: No Known Drug Allergies (Unverified , 12/12/17) Home Medication List Reviewed: Yes DBU-Ankleh-Rpkuct Hx Patient Social History Marital Status: Employed/Student: retired Drug of Choice: denies Type Used: Cigarettes 2nd Hand Smoke Exposure: No Recent Hopitalizations: No Have you traveled recently?: No Alcohol Use?: Yes Immunizations Up To Date Tetanus Booster (TDap): Unknown Date of Pneumonia Vaccine: Aug 15, 2016 Past Medical History Discussed below Family Medical History Significant Family History: No Pertinent Family Hx Review of Systems-General Review of Systems Constitutional: see HPI, other (Patient is in respiratory failure, sedated, unable to provide review of system) Respiratory: see HPI Musculoskeletal: see HPI Psychiatric/Neurological: See HPI Reviewed Test Results Reviewed Test Results Lab Laboratory Tests Test 06/19/22 06:15 06/19/22 06:35 06/19/22 06:42 06/19/22 06:49 Range/Units White Blood Count 5.4 4.3-11.0 10^3/uL Red Blood Count 3.42 L 4.30-5.52 10^6/uL Hemoglobin 12.3 L 13.3-17.7 g/dL Hematocrit 35 L 40-54 % Mean Corpuscular Volume 103 H 80-99 fL Mean Corpuscular Hemoglobin 36 H 25-34 pg Mean Corpuscular Hemoglobin Concent 35 32-36 g/dL Red Cell Distribution Width 11.2 10.0-14.5 % Platelet Count 232 130-400 10^3/uL Mean Platelet Volume 9.0 9.0-12.2 fL Immature Granulocyte % (Auto) 0 % Neutrophils (%) (Auto) 73 42-75 % Lymphocytes (%) (Auto) 12 12-44 % Monocytes (%) (Auto) 12 0-12 % Eosinophils (%) (Auto) 2 0-10 % Basophils (%) (Auto) 1 0-10 % Neutrophils # (Auto) 4.0 1.8-7.8 10^3/uL Lymphocytes # (Auto) 0.6 L 1.0-4.0 10^3/uL Monocytes # (Auto) 0.6 0.0-1.0 10^3/uL Eosinophils # (Auto) 0.1 0.0-0.3 10^3/uL Basophils # (Auto) 0.1 0.0-0.1 10^3/uL Immature Granulocyte # (Auto) 0.0 0.0-0.1 10^3/uL Erythrocyte Sedimentation Rate 7 0-30 MM/HR Prothrombin Time 12.0 L 12.2-14.7 SEC INR Comment 0.8 0.8-1.4 Activated Partial Thromboplast Time 27 24-35 SEC Sodium Level 120 *L 135-145 MMOL/L Potassium Level 4.0 3.6-5.0 MMOL/L Chloride Level 68 L 98-107 MMOL/L Carbon Dioxide Level 37 H 21-32 MMOL/L Anion Gap 15 H 5-14 MMOL/L Blood Urea Nitrogen 4 L 7-18 MG/DL Creatinine 0.57 L 0.60-1.30 MG/DL Estimat Glomerular Filtration Rate 105 BUN/Creatinine Ratio 7 Glucose Level 115 H 70-105 MG/DL Lactic Acid Level 1.54 0.50-2.00 MMOL/L Calcium Level 9.3 8.5-10.1 MG/DL Corrected Calcium 9.1 8.5-10.1 MG/DL Magnesium Level 1.8 1.6-2.4 MG/DL Total Bilirubin 0.7 0.1-1.0 MG/DL Aspartate Amino Transf (AST/SGOT) 29 5-34 U/L Alanine Aminotransferase (ALT/SGPT) 19 0-55 U/L Alkaline Phosphatase 112 40-136 U/L Total Creatine Kinase 76 30-200 U/L Creatine Kinase MB 7.7 *H <6.6 NG/ML Myoglobin 90.2 10.0-92.0 NG/ML Troponin I < 0.028 <0.028 NG/ML C-Reactive Protein High Sensitivity 0.15 0.00-0.50 MG/DL B-Type Natriuretic Peptide 177.9 H <100.0 PG/ML Total Protein 7.1 6.4-8.2 GM/DL Albumin 4.2 3.2-4.5 GM/DL Amylase Level 25 25-125 U/L Lipase 12 8-78 U/L Acetaminophen Level < 10 L 10-30 UG/ML Serum Alcohol < 10 <10 MG/DL Influenza Type A (RT-PCR) Not Detected Not Detecte Influenza Type B (RT-PCR) Not Detected Not Detecte SARS-CoV-2 RNA (RT-PCR) Not Detected Not Detecte Blood Gas Puncture Site R RAD Blood Gas Patient Temperature 35.4 Arterial Blood pH 7.31 *L 7.37-7.43 Arterial Blood Partial Pressure CO2 91 *H 35-45 MMHG Arterial Blood Partial Pressure O2 158 H 79-93 MMHG Arterial Blood HCO3 46 *H 23-27 MMOL/L Arterial Blood Total CO2 49.0 *H 21.0-31.0 MMOL/L Arterial Blood Oxygen Saturation 100 94-100 % Arterial Blood Base Excess 18.7 H -2.5-2.5 MMOL/L Daryl Test YES-POS Blood Gas Ventilator Setting NO Blood Gas Inspired Oxygen 4 Urine Color YELLOW Urine Clarity CLEAR Urine pH 7.5 5-9 Urine Specific [place] 1.010 L 1.016-1.022 Urine Protein NEGATIVE NEGATIVE Urine Glucose (UA) NEGATIVE NEGATIVE Urine Ketones TRACE H NEGATIVE Urine Nitrite NEGATIVE NEGATIVE Urine Bilirubin NEGATIVE NEGATIVE Urine Urobilinogen 1.0 < = 1.0 MG/DL Urine Leukocyte Esterase NEGATIVE NEGATIVE Urine RBC (Auto) TRACE-I H NEGATIVE Urine RBC NONE /HPF Urine WBC NONE /HPF Urine Crystals NONE /LPF Urine Bacteria NEGATIVE /HPF Urine Casts NONE /LPF Urine Mucus NEGATIVE /LPF Urine Culture Indicated NO Urine Opiates Screen NEGATIVE NEGATIVE Urine Oxycodone Screen NEGATIVE NEGATIVE Urine Methadone Screen NEGATIVE NEGATIVE Urine Propoxyphene Screen NEGATIVE NEGATIVE Urine Barbiturates Screen NEGATIVE NEGATIVE Ur Tricyclic Antidepressants Screen NEGATIVE NEGATIVE Urine Phencyclidine Screen NEGATIVE NEGATIVE Urine Amphetamines Screen NEGATIVE NEGATIVE Urine Methamphetamines Screen NEGATIVE NEGATIVE Urine Benzodiazepines Screen NEGATIVE NEGATIVE Urine Cocaine Screen NEGATIVE NEGATIVE Urine Cannabinoids Screen NEGATIVE NEGATIVE Physical Exam Physical Exam Vital Signs Vital Signs - First Documented Capillary Refill : Less Than 3 Seconds Height, Weight, BMI Height: 5'11.00" Weight: 176lbs. 1.6oz. 79.938831kc; 24.00 BMI Method: General Appearance: WD/WN, Chronically ill, Moderate Distress, Other (Sedated) HEENT: PERRL/EOMI, Other (PT HAS OLD LEFT PERIORBITAL HEMATOMA, HE ALSO HAS MULTIPLE OLD BRUISES TO FOREHEAD AND FRONTAL SCALP AREA. ) Neck: Non Tender Respiratory: Chest Non Tender, Crackles, Decreased Breath Sounds, Wheezing, Other (ON BIPAP, INCREASED AERATION, NON-LABORED BREATHING) Cardiovascular: Regular Rate, Rhythm, Systolic Murmur Gastrointestinal: Non Tender, Soft Extremity: No Pedal Edema, Slow Capillary Refill Neurologic/Psychiatric: Alert, No Motor/Sensory Deficits, staff attorney II-XII Norm as Tested Skin: Normal Color, Warm/Dry A/P-Cardiology Admission Diagnosis Acute respiratory failure Alcohol withdrawal Coronary artery disease Paroxysmal atrial fibrillation Assessment/Plan Acute respiratory failure, acute exacerbation of COPD Maintained on BiPAP and sedated Alcohol withdrawal, possible DT, Started on withdrawal protocol. Admit to ICU Coronary artery disease, History of coronary stent in 2001, history of CABG, cardiac enzymes are normal, EKG showing sinus rhythm No recent cardiac work-up, planning to evaluate 2D echo Paroxysmal atrial fibrillation by history. Has been maintained on apixaban and metoprolol as an outpatient. Continue to monitor heart rate and resume anticoagulation with Lovenox for now Hypertension, controlled, monitor blood pressure Hyperlipidemia, monitor lipids Hyponatremia, probably secondary to alcoholism, monitor sodium level Acute on chronic metabolic alkalosis, respiratory acidosis. TOM BULL MD Jun 19, 2022 09:26
[2022-06-19 09:27] LABS: ABG PCO2 101 MMHG (35-45); ABG PH 7.25 (7.37-7.43)
[2022-06-19 09:28] LABS: ABG TCO2 46.7 MMOL/L (21.0-31.0); ALLENS TEST YES-POS; INSPIRED O2 100; PATIENT TEMP 35.4; VENTILATOR NO
[2022-06-19] MEDS ORDERED: ANTACID SUSP 30 ML UDC (MYLANTA) PO PRN ×2 (10:45)
[2022-06-19] MEDS ORDERED: ONDANSETRON 4 MG (ZOFRAN) ORAL DISSOLVE TAB PO PRN (10:45)
[2022-06-19] MEDS ORDERED: ONDANSETRON 4 MG (ZOFRAN) ORAL DISSOLVE TAB SL PRN (10:45)
[2022-06-19] MEDS ORDERED: polyethylene glycoL POWDER 17 GM (MIRALAX) PACK PO PRN (10:45)
[2022-06-19] MEDS ORDERED: CALCIUM CARBONATE 500 MG (TUMS) TAB.CHEW PO PRN (10:45)
[2022-06-19] MEDS ORDERED: NS IV 500 ML 500 ML IV PRN (10:45)
[2022-06-19] MEDS ORDERED: SENNA W/DOCUSATE (SENOKOT S) TABLET PO PRN (10:45)
[2022-06-19] MEDS ORDERED: 1/2 NS IV SOLUTION 1,000 ML IV PRN (10:45)
[2022-06-19] MEDS ORDERED: LACTULOSE SYRUP 10GM/15ML (ENULOSE) 30ML UDC PO PRN (10:45)
[2022-06-19] MEDS ORDERED: BISACODYL 10 MG SUPP (DULCOLAX) PR PRN (10:45)
[2022-06-19] MEDS ORDERED: diphenhydrAMINE 25 MG TAB (BENADRYL) PO PRN (10:45)
[2022-06-19] MEDS ORDERED: LORazepam INJ 2 MG/ML (ATIVAN) VIAL IM/IV PRN (10:45)
[2022-06-19] MEDS ORDERED: DexMEDEtomidine 250 ML DRIP 250 ML IV SCH (10:45)
[2022-06-19] MEDS ORDERED: HYDROmorphone 2 MG/ML VIAL (DILAUDID) IV PRN (10:45)
[2022-06-19] MEDS ORDERED: ONDANSETRON 4 MG/2 ML (SDV) Z0FRAN IV PRN (10:45)
[2022-06-19] MEDS ORDERED: MILK OF MAGNESIA 400 MG/5 ML 30 ML UDC PO PRN (10:45)
[2022-06-19] MEDS ORDERED: D5 1/2 NS 1000 ML IV SOLUTION 1,000 ML IV PRN (10:45)
[2022-06-19] MEDS ORDERED: diphenhydrAMINE 50 MG/ML INJ (BENADRYL) IVP PRN (10:45)
[2022-06-19] MEDS ORDERED: RT-ALBUTEROL/IPRATROPIUM 3 ML (DUONEB) VIAL ONE (11:03)
--- NOTE | 2022-06-19 11:04 | Tele-ICU Consult ---
History of Present Illness History of Present Illness Date Seen by Provider: Jun 19, 2022 Time Seen by Provider: 10:58 Reason for Visit: Acute respiratory failure History of Present Illness 71 yo M brought to ED from home for SOB, lethargy, initial ABG 7.31/91/158 on 4 lpm NC, then placed on BiPAP 7./101/368, Has COPD, not on inhalers at home, Na 120-to be started on normal saline @ 90 mL/h HCO3 37, CTA did not show pulm emb, CXR shows mild hyperinflation Serology for RSV, flu and Covid are negative Hb 7.7, BNP 177 No CP says pt drinking heavily at home, last drink was 24 hours ago, Hx of CABG, Hx of a fib but now in sinus, Allergies and Home Medications Allergies Coded Allergies: No Known Drug Allergies (Unverified , 12/12/17) Home Medications Albuterol Sulfate 1 Puff Puff, 2 PUFF IH Q4H PRN for SHORTNESS OF BREATH, (Reported) Albuterol Sulfate 2.5 Mg/0.5 Ml Vial.neb, 2.5 MG INH Q6H PRN for SHORTNESS OF BREATH, (Reported) Amlodipine Besylate 5 Mg Tablet, 5 MG PO DAILY Prescribed by: ALEXANDRA JUDGE on 10/13/21 0557 Apixaban 5 Mg Tablet, 5 MG PO BID, (Reported) Clopidogrel Bisulfate 75 Mg Tablet, 75 MG PO DAILY, (Reported) Gabapentin 400 Mg Capsule, 400 MG PO TID, (Reported) LAST FILLED 02-23-2021 #270/90 DAY SUPPLY Hydrocodone/Acetaminophen 5 Mg-325 Mg Tablet, 1 TAB PO Q4H PRN for PAIN-MODERATE (5-7) Prescribed by: DYLAN CANADA on 11/05/21 1357 Melatonin 3 Mg Tablet, 3 MG PO HS PRN for SLEEP Prescribed by: ANAIS HDZ on 09/29/21 1025 Metoprolol Tartrate 25 Mg Tablet, 25 MG PO BID, (Reported) Morphine Sulfate 15 Mg Tablet.er, 15 MG PO Q12HR Prescribed by: ALEXANDRA JUDGE on 10/13/21 0558 Morphine Sulfate 15 Mg Tablet, 30 MG PO Q4H PRN for PAIN-SEVERE (8-10) Prescribed by: ALEXANDRA JUDGE on 10/13/21 0558 Multivitamin/Iron/Folic Acid 18 Mg Iron-400 Mcg Tablet, 1 EA PO DAILY@0700 Prescribed by: ALEXANDRA JUDGE on 10/13/21 0557 Pantoprazole Sodium 40 Mg Tablet.dr, 40 MG PO DAILY Prescribed by: DIPESH SLAUGHTER on 04/11/22 1630 Prednisone 20 Mg Tab, 40 MG PO DAILY Prescribed by: MANA LEYVA MD on 11/20/21 0227 Sennosides/Docusate Sodium 8.6 Mg-50 Mg Tablet, 1 EA PO BID Prescribed by: ALEXANDRA JUDGE on 10/13/21 0557 Past Medical/Social/Family Hx Patient Social History Marrital Status: Employed/Student: retired Substance use?: No Alcohol Use?: Yes Pt stated abuse/neglect: No Immunizations Up To Date First/Initial COVID19 Vaccinat: x2 Second COVID19 Vaccination Joseph: TWO SHOTS Tetanus Booster (TDap): Unknown TB Skin Test: None Date of Pneumonia Vaccine: Aug 15, 2016 Current Status Advance Directives: No Communicates: Verbally Primary Language: [place]se Preferred Spoken Language: [place]orese Is interpretation needed?: No Implanted or Applied Medical D: Orthopedic hardware Review of Systems Constitutional: see HPI EENTM: see HPI Respiratory: see HPI Cardiovascular: see HPI Gastrointestinal: see HPI Genitourinary: see HPI Musculoskeletal: see HPI Skin: see HPI Psychiatric/Neurological: See HPI Focused Exam Lactate Level 06/19/22 06:15: Lactic Acid Level 1.54 Height, Weight, BMI Height: 5'11.00" Weight: 176lbs. 1.6oz. 79.628100tq; 24.00 BMI Method: Time of Focused Exam: 07:30 Exam Exam Patient acknowledged, consented, and participated in this virtual visit which was conducted using real time audio/video Vital Signs Date Time Temp Pulse Resp B/P (MAP) Pulse Ox O2 Delivery O2 Flow Rate FiO2 06/19/22 09:13 85 20 100 100.00 06/19/22 07:30 85 21 100 100.00 06/19/22 06:49 98 06/19/22 06:10 100 Nasal Cannula 4.00 06/19/22 06:10 35.4 94 20 151/127 (135) 100 Nasal Cannula 4.00 I & O 06/19/22 07:00 Intake Total 50 ml Balance 50 ml Height & Weight Height: 5'11.00" Weight: 176lbs. 1.6oz. 79.902171pp; 24.00 BMI Method: General Appearance: WD/WN, Chronically ill, Moderate Distress, Other (Sedated) HEENT: PERRL/EOMI, Other (PT HAS OLD LEFT PERIORBITAL HEMATOMA, HE ALSO HAS MULTIPLE OLD BRUISES TO FOREHEAD AND FRONTAL SCALP AREA. ) Neck: Non Tender Respiratory: Chest Non Tender, Crackles, Decreased Breath Sounds, Wheezing, Other (ON BIPAP, INCREASED AERATION, NON-LABORED BREATHING) Cardiovascular: Regular Rate, Rhythm, Systolic Murmur Capillary Refill: Less Than 3 Seconds Gastrointestinal: normal bowel sounds, non tender Extremity: No Pedal Edema, Slow Capillary Refill Neurologic/Psychiatric: Alert, No Motor/Sensory Deficits, center medical specialist II-XII Norm as Tested, Other (lethargic, wakes up and goes back to sleep) Skin: Normal Color, Warm/Dry Results Lab Laboratory Tests 06/19/22 06:15 Assessment/Plan Assessment/Plan says pt is DNR/DNI but will verify, Hypercarbic resp failure, will continue BiPAP 18/6 @ FiO2 55% Has been drinking at home On CIWA protocol but will hold sedation due to marked CO2 retention. Na 120-beer potomania?, will get urine lytes, continue normal saline and repeat BMP and ABG Critical Care: Critically Ill Patient Time spent with patient (mins): 30 NATACHA MOODY MD Jun 19, 2022 11:04
[2022-06-19] MEDS: RT-ALBUTEROL/IPRATROPIUM 3 ML (DUONEB) VIAL INH PRN (11:16)
[2022-06-19 12:03] LABS: CALCIUM 9.1 MG/DL (8.5-10.1)
[2022-06-19 12:08] LABS: CREATININE SERUM 0.58 MG/DL (0.60-1.30)
[2022-06-19 12:30] LABS: ABG OXYGEN SATURATION 53 % (94-100)
[2022-06-19] MEDS: LORazepam INJ 2 MG/ML (ATIVAN) VIAL IV PRN ×3 (12:31→20:30)
[2022-06-19] MEDS: ENOXAPARIN 40 MG/0.4 ML (LOVENOX) SYR SC SCH (12:31)
[2022-06-19 12:32] LABS: ABG PH 7.28 (7.37-7.43)
[2022-06-19 12:33] LABS: ABG PCO2 96 MMHG (35-45); ABG PO2 31 MMHG (79-93); ABG TCO2 47.6 MMOL/L (21.0-31.0)
[2022-06-19] MEDS: methylPREDNISolone 40 MG/ML (Solu-MEDROL) VIAL IV SCH ×2 (12:33→18:52)
[2022-06-19 12:36] LABS: INSPIRED O2 55; VENTILATOR NO
[2022-06-19] MEDS: NS IV 1000 ML 1,000 ML IV SCH (14:08)
[2022-06-19] MEDS: RT-ALBUTEROL/IPRATROPIUM 3 ML (DUONEB) VIAL INH SCH ×3 (15:22→22:45)
[2022-06-19] MEDS: CEFEPIME INJECTION 1,000 MG in NS (IVPB) 50 ML IV SCH ×2 (16:24→22:16)
[2022-06-19 16:45] LABS: POTASSIUM 4.9 MMOL/L (3.6-5.0)
[2022-06-19 16:46] LABS: CALCIUM 9.1 MG/DL (8.5-10.1)
[2022-06-19 16:51] LABS: CREATININE SERUM 0.6 MG/DL (0.60-1.30)
[2022-06-19] MEDS: MAGNESIUM OXIDE (MAG-OX)400 MG TAB PO SCH (20:09)
[2022-06-19] MEDS: SENNOSIDES 8.6 MG (SENOKOT) TAB PO SCH (20:09)
[2022-06-19] MEDS: DOCUSATE SODIUM 100 MG (COLACE) CAP PO SCH (20:09)
[2022-06-19 20:46] LABS: CALCIUM 9.6 MG/DL (8.5-10.1); CREATININE SERUM 0.69 MG/DL (0.60-1.30); POTASSIUM 4.5 MMOL/L (3.6-5.0)
[2022-06-19] MEDS ORDERED: CEFEPIME INJECTION 1,000 MG in NS (IVPB) 50 ML IV SCH (21:00)
[2022-06-19] MEDS: RT-BUDESONIDE NEBS 0.5 MG/2ML (PULMICORT) AMP INH SCH (22:45)
[2022-06-20] MEDS: methylPREDNISolone 40 MG/ML (Solu-MEDROL) VIAL IV SCH ×5 (00:17→23:50)
[2022-06-20 00:43] LABS: POTASSIUM 4.1 MMOL/L (3.6-5.0)
[2022-06-20 00:44] LABS: CALCIUM 9.1 MG/DL (8.5-10.1)
[2022-06-20 00:48] LABS: CREATININE SERUM 0.64 MG/DL (0.60-1.30)
[2022-06-20] MEDS: LORazepam INJ 2 MG/ML (ATIVAN) VIAL IV PRN ×5 (02:12→23:49)
[2022-06-20] MEDS: NS IV 1000 ML 1,000 ML IV SCH ×2 (02:13→16:55)
[2022-06-20] MEDS: RT-ALBUTEROL/IPRATROPIUM 3 ML (DUONEB) VIAL INH SCH ×6 (02:50→21:40)
[2022-06-20 02:51] VITALS: BP 155/111
[2022-06-20 03:57] LABS: BASOPHILS % (AUTO) 0 % (0-10); EOSINOPHILS % (AUTO) 0 % (0-10); HEMATOCRIT 28 % (40-54); HEMOGLOBIN 10.1 g/dL (13.3-17.7); LYMPHOCYTES # (AUTO) 0.2 10^3/uL (1.0-4.0); LYMPHOCYTES % (AUTO) 3 % (12-44); MEAN CORPUSCULAR HEMOGLOBIN 35 pg (25-34); MEAN CORPUSCULAR HGB CONC 36 g/dL (32-36); MEAN CORPUSCULAR VOLUME 100 fL (80-99); MEAN PLATELET VOLUME 9.3 fL (9.0-12.2); MONOCYTES # (AUTO) 0.3 10^3/uL (0.0-1.0); MONOCYTES % (AUTO) 6 % (0-12); NEUTROPHILS # (AUTO) 4.4 10^3/uL (1.8-7.8); NEUTROPHILS % (AUTO) 90 % (42-75); PLATELET COUNT 200 10^3/uL (130-400); WHITE BLOOD COUNT 4.9 10^3/uL (4.3-11.0)
[2022-06-20 04:15] LABS: ALBUMIN 3.2 GM/DL (3.2-4.5); POTASSIUM 3.9 MMOL/L (3.6-5.0)
[2022-06-20 04:16] LABS: CALCIUM 8.9 MG/DL (8.5-10.1)
[2022-06-20 04:17] LABS: TOTAL PROTEIN 5.5 GM/DL (6.4-8.2)
[2022-06-20 04:19] LABS: BILIRUBIN,TOTAL 0.8 MG/DL (0.1-1.0)
[2022-06-20 04:20] LABS: PHOSPHORUS 1.6 MG/DL (2.3-4.7)
[2022-06-20 04:21] LABS: CREATININE SERUM 0.64 MG/DL (0.60-1.30)
[2022-06-20 04:23] LABS: MAGNESIUM 1.8 MG/DL (1.6-2.4)
[2022-06-20] MEDS: CEFEPIME INJECTION 1,000 MG in NS (IVPB) 50 ML IV SCH ×4 (04:26→21:06)
[2022-06-20 04:51] LABS: BAND NEUTROPHILS 1 %; LYMPHOCYTES % (MANUAL) 6 %; MONOCYTES % (MANUAL) 2 %; NEUTROPHILS % (MANUAL) 91 %; RBC MORPH NORMAL
[2022-06-20] MEDS: POTASSIUM CL 10MEQ/50ML IVPB 50 ML IV SCH ×3 (04:53→06:23)
[2022-06-20] MEDS: MAGNESIUM 1 GM/100 ML IVPB 100 ML IV SCH ×3 (04:53→07:39)
[2022-06-20] MEDS: KCL 20 MEQ TAB (K-DUR) PO SCH (04:53)
[2022-06-20 06:02] LABS: ABG OXYGEN SATURATION 100 % (94-100); ABG PCO2 63 MMHG (35-45); ABG PO2 119 MMHG (79-93)
[2022-06-20 06:03] LABS: ALLENS TEST YES-POS; INSPIRED O2 25%; VENTILATOR NO
[2022-06-20 06:04] LABS: PATIENT TEMP 37
[2022-06-20 06:05] LABS: ABG PH 7.66 (7.37-7.43); ABG TCO2 74.6 MMOL/L (21.0-31.0)
[2022-06-20] MEDS: MULTIVIT W/MINERALS TAB (THERAGRAN M) PO SCH (06:23)
[2022-06-20] MEDS: THIAMINE 100 MG (VITAMIN B-1) TAB PO SCH (06:23)
[2022-06-20] MEDS: RT-BUDESONIDE NEBS 0.5 MG/2ML (PULMICORT) AMP INH SCH ×2 (07:04→21:40)
[2022-06-20 07:05] VITALS: BP 176/105
[2022-06-20 08:29] LABS: POTASSIUM 3.8 MMOL/L (3.6-5.0)
[2022-06-20 08:30] LABS: CALCIUM 8.9 MG/DL (8.5-10.1)
[2022-06-20 08:34] LABS: CREATININE SERUM 0.62 MG/DL (0.60-1.30)
[2022-06-20] MEDS: SENNOSIDES 8.6 MG (SENOKOT) TAB PO SCH ×2 (09:00→20:49)
[2022-06-20] MEDS: FOLIC ACID 1 MG TAB PO SCH (09:00)
[2022-06-20] MEDS: MAGNESIUM OXIDE (MAG-OX)400 MG TAB PO SCH ×2 (09:00→20:49)
[2022-06-20] MEDS: DOCUSATE SODIUM 100 MG (COLACE) CAP PO SCH ×2 (09:00→20:49)
[2022-06-20] MEDS ORDERED: THIAMINE 100 MG/ML 2 ML (VITAMIN B-1) VIAL IV ONE (09:15)
--- NOTE | 2022-06-20 10:00 | Tele-ICU Progress Note ---
Subjective Date Seen by a Provider: Jun 20, 2022 Time Seen by a Provider: 09:01 Subjective/Events-last exam (Tele-ICU Physician , Progress Note ) Service provided via interactive audio and video telecommunications E-CARE system to a patient admitted to ICU bed in [facility]. 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 -= cont nebs and steroids AECOPD - SM 80 q6h - cont - nebs + pulmicort Acute mental status change - wean off precedex and reassess - CTH neg 06/19/22 Hyponatremia 120 06/19 - on NS 75 last 12 h - Na stable - CPM GPC clusters 03/13 06/19 - cefepime 06/19 --> h/o PAF - on sinus now - 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 Discussed with RN to reach out if any questions or concerns Case and care daily discussed on multidisciplinary rounds ( RN, PharmD, Medical Professionals , Respiratory Therapy, electronics utility worker ) A total of 32 minutes of critical care time was devoted to this patient today, required to treat and/or prevent further deterioration of critical care condition ( as above ) . I am remotely monitoring this patient from another state. I am unable to do the bedside exam, and history/physical and pertinent information is taken from other notes in the computer and bedside staff. Sepsis Event Evaluation Height, Weight, BMI Height: 5'11.00" Weight: 176lbs. 1.6oz. 79.896829qe; 21.94 BMI Method: Focused Exam Lactate Level 06/19/22 06:15: Lactic Acid Level 1.54 Time of Focused Exam: 07:30 Exam Exam Patient acknowledged, consented, and participated in this virtual visit which was conducted using real time audio/video Vital Signs Date Time Temp Pulse Resp B/P (MAP) Pulse Ox O2 Delivery O2 Flow Rate FiO2 06/20/22 08:00 79 19 171/93 (119) 91 NIV Bilevel 25.00 06/20/22 07:25 36.3 06/20/22 07:05 77 20 98 25.00 06/20/22 07:00 78 26 178/105 (129) NIV Bilevel 25.00 06/20/22 06:57 77 06/20/22 06:23 85 153/86 06/20/22 06:00 87 31 153/86 (108) NIV Bilevel 25.00 06/20/22 05:00 92 15 150/90 (110) 93 NIV Bilevel 25.00 06/20/22 04:32 111 160/103 06/20/22 04:00 37.0 06/20/22 04:00 95 NIV Bilevel 25.00 06/20/22 04:00 101 25 160/103 (122) 98 NIV Bilevel 25.00 06/20/22 03:00 95 28 149/111 (124) 91 NIV Bilevel 25.00 06/20/22 02:51 97 22 98 25.00 06/20/22 02:00 108 28 155/111 (126) 99 NIV Bilevel 25.00 06/20/22 01:00 103 40 158/108 (125) 99 NIV Bilevel 25.00 06/20/22 00:42 101 06/20/22 00:00 37.0 06/20/22 00:00 102 23 157/106 (123) 99 NIV Bilevel 25.00 06/19/22 23:59 96 NIV Bilevel 25.00 06/19/22 23:00 107 15 133/90 (104) 99 NIV Bilevel 25.00 06/19/22 22:45 101 24 99 25.00 06/19/22 22:00 101 22 145/90 (108) 99 NIV Bilevel 25.00 06/19/22 21:00 105 28 111/84 (93) 96 NIV Bilevel 25.00 06/19/22 20:00 95 NIV Bilevel 25.00 06/19/22 20:00 120 32 125/83 (97) 100 NIV Bilevel 25.00 06/19/22 20:00 36.1 06/19/22 19:00 117 22 118/87 (97) 100 NIV Bilevel 25.00 06/19/22 19:00 118 06/19/22 18:43 116 24 100 25.00 06/19/22 18:00 102 23 133/73 (95) 100 NIV Bilevel 25.00 06/19/22 17:00 97 10 134/75 (102) 99 NIV Bilevel 25.00 06/19/22 16:28 100 NIV Bilevel 25.00 06/19/22 16:00 101 21 112/77 (83) 100 NIV Bilevel 45.00 06/19/22 15:57 98 NIV Bilevel 30.00 06/19/22 15:55 36.4 06/19/22 15:23 96 21 100 30.00 06/19/22 15:00 89 15 123/76 (88) 100 NIV Bilevel 45.00 06/19/22 14:41 100 NIV Bilevel 45.00 06/19/22 14:00 91 28 145/85 (109) 100 NIV Bilevel 75.00 06/19/22 13:00 82 8 128/67 (93) 100 NIV Bilevel 75.00 06/19/22 13:00 86 06/19/22 12:00 86 10 141/72 (91) 100 NIV Bilevel 75.00 06/19/22 11:20 100 NIV Bilevel 75.00 06/19/22 11:11 85 22 100 55.00 06/19/22 10:58 87 06/19/22 10:57 35.4 78 100 100 06/19/22 10:55 100 NIV Bilevel 75.00 06/19/22 10:45 36.2 92 17 164/112 (129) 100 NIV Bilevel 100.00 06/19/22 10:21 78 16 169/90 93 NIV Bilevel I & O 06/20/22 07:00 Intake Total 2100 ml Output Total 2450 ml Balance -350 ml Height & Weight Height: 5'11.00" Weight: 176lbs. 1.6oz. 79.047905de; 21.94 BMI Method: General Appearance: WD/WN, Chronically ill, Other HEENT: PERRL/EOMI, Other Neck: Non Tender Respiratory: Other Cardiovascular: Irregularly Irregular Capillary Refill: Greater Than 3 Seconds Gastrointestinal: normal bowel sounds, non tender Extremity: No Pedal Edema, Slow Capillary Refill Neurologic/Psychiatric: Alert, No Motor/Sensory Deficits, freight separator II-XII Norm as Tested Skin: Normal Color, Warm/Dry Results Lab Laboratory Tests 06/19/22 06:15 06/19/22 11:40 06/19/22 16:20 06/19/22 19:41 06/20/22 00:11 06/20/22 03:48 06/20/22 08:09 Assessment/Plan Assessment/Plan 1 ROSE SU MD Jun 20, 2022 10:00
[2022-06-20 10:33] VITALS: BP 182/103
--- NOTE | 2022-06-20 12:04 | Progress Note ---
Subjective Subjective/Events-last exam Patient on bipap this AM and sedated on precedex. Patient was combative ON and precedex was restarted Review of Systems Unable to access due to sedation Focused Exam Lactate Level 06/19/22 06:15: Lactic Acid Level 1.54 Time of Focused Exam: 07:30 Objective Exam Last Set of Vital Signs Vital Signs Date Time Temp Pulse Resp B/P (MAP) Pulse Ox O2 Delivery O2 Flow Rate FiO2 06/20/22 11:45 36.1 06/20/22 11:00 73 24 167/92 (117) 97 NIV Bilevel 25.00 06/19/22 10:57 100 Capillary Refill : Greater Than 3 Seconds I&O Intake and Output 06/20/22 00:00 Intake Total 1100 ml Output Total 2000 ml Balance -900 ml Intake Oral 0 ml IV Total 1100 ml Output Urine Total 2000 ml Daily Weight Change No General: Other (breathing on bipap comfortably) Lungs: Other (diffuse wheezing present in all lung mclaughlin) Heart: Regular Rate, No Murmurs Abdomen: Soft Extremities: Other (2+ pitting edema BLE) Results/Procedures Lab Laboratory Tests 06/19/22 12:19: Blood Gas Puncture Site LEFT BRACHIAL, Blood Gas Patient Temperature 36.0, Arterial Blood pH 7.28*L, Arterial Blood Partial Pressure CO2 96*H, Arterial Blood Partial Pressure O2 31*L, Arterial Blood HCO3 45*H, Arterial Blood Total CO2 47.6*H, Arterial Blood Oxygen Saturation 53L, Arterial Blood Base Excess 17.0H, Daryl Test NA, Blood Gas Ventilator Setting NO, Blood Gas Inspired Oxygen 55 06/19/22 16:20: Sodium Level 127L, Potassium Level 4.9, Chloride Level 77L, Carbon Dioxide Level 34H, Anion Gap 16H, Blood Urea Nitrogen 5L, Creatinine 0.60, Estimat Glomerular Filtration Rate 103, BUN/Creatinine Ratio 8, Glucose Level 141H, Calcium Level 9.1 06/19/22 19:41: Sodium Level 126L, Potassium Level 4.5, Chloride Level 78L, Carbon Dioxide Level 33H, Anion Gap 15H, Blood Urea Nitrogen 6L, Creatinine 0.69, Estimat Glomerular Filtration Rate 99, BUN/Creatinine Ratio 9, Glucose Level 163H, Calcium Level 9.6 06/20/22 00:11: Sodium Level 126L, Potassium Level 4.1, Chloride Level 81L, Carbon Dioxide Level 34H, Anion Gap 11, Blood Urea Nitrogen 7, Creatinine 0.64, Estimat Glomerular Filtration Rate 101, BUN/Creatinine Ratio 11, Glucose Level 182H, Calcium Level 9.1 06/20/22 03:48: White Blood Count 4.9, Red Blood Count 2.85L, Hemoglobin 10.1L, Hematocrit 28L, Mean Corpuscular Volume 100H, Mean Corpuscular Hemoglobin 35H, Mean Corpuscular Hemoglobin Concent 36, Red Cell Distribution Width 11.4, Platelet Count 200, Mean Platelet Volume 9.3, Immature Granulocyte % (Auto) 0, Neutrophils (%) (Auto) 90H, Lymphocytes (%) (Auto) 3L, Monocytes (%) (Auto) 6, Eosinophils (%) (Auto) 0, Basophils (%) (Auto) 0, Neutrophils # (Auto) 4.4, Lymphocytes # (Auto) 0.2L, Monocytes # (Auto) 0.3, Eosinophils # (Auto) 0.0, Basophils # (Auto) 0.0, Immature Granulocyte # (Auto) 0.0, Neutrophils % (Manual) 91, Lymphocytes % (Manual) 6, Monocytes % (Manual) 2, Band Neutrophils 1, Blood Morphology Comment NORMAL, Sodium Level 127L, Potassium Level 3.9, Chloride Level 83L, Carbon Dioxide Level 32, Anion Gap 12, Blood Urea Nitrogen 8, Creatinine 0.64, Estimat Glomerular Filtration Rate 101, BUN/Creatinine Ratio 13, Glucose Level 191H, Calcium Level 8.9, Corrected Calcium 9.5, Phosphorus Level 1.6L, Magnesium Level 1.8, Total Bilirubin 0.8, Aspartate Amino Transf (AST/SGOT) 17, Alanine Aminotransferase (ALT/SGPT) 14, Alkaline Phosphatase 79, Total Protein 5.5L, Albumin 3.2 06/20/22 05:55: Blood Gas Puncture Site R RAD, Blood Gas Patient Temperature 37, Arterial Blood pH 7.66*H, Arterial Blood Partial Pressure CO2 63H, Arterial Blood Partial Pressure O2 119H, Arterial Blood HCO3 73*H, Arterial Blood Total CO2 74.6*H, Arterial Blood Oxygen Saturation 100, Arterial Blood Base Excess , Daryl Test YES-POS, Blood Gas Ventilator Setting NO, Blood Gas Inspired Oxygen 25% 06/20/22 08:09: Sodium Level 127L, Potassium Level 3.8, Chloride Level 85L, Carbon Dioxide Level 35H, Anion Gap 7, Blood Urea Nitrogen 8, Creatinine 0.62, Estimat Glomerular Filtration Rate 102, BUN/Creatinine Ratio 13, Glucose Level 221H, Calcium Level 8.9 06/20/22 11:29: Glucometer 202H Microbiology 06/19/22 MRSA Screen - Final, Complete MRSA not isolated 06/19/22 Blood Culture - Preliminary, Resulted Gram Positive Cocci in Cluster Assessment/Plan Assessment/Plan (1) Acute on chronic respiratory failure with hypoxia and hypercapnia Status: Acute Assessment & Plan: 06/20: On bipap, ABG pH 7.6, improved CO2, will titrate sedation and see if patient can be taken off bipap, continue PPX antibiotics and IV steroids at this time (2) Acute exacerbation of chronic obstructive pulmonary disease (COPD) Status: Acute (3) Alcohol withdrawal Status: Acute Assessment & Plan: 06/20: Requiring precedex due to agitation, CIWS protocol, ativan PRN, Thiamine/FA given Qualifiers: Qualified Codes: F10.931 - Alcohol use, unspecified with withdrawal delirium (4) Atrial fibrillation Status: Acute Assessment & Plan: 06/20: Cardiology consulted, appreciate recommendations, patient rate controlled, Lovenox for PPX due to NPO status Qualifiers: Qualified Codes: I48.0 - Paroxysmal atrial fibrillation (5) Hyponatremia Status: Acute Assessment & Plan: 06/20: Stable, fluid restriction (6) Coronary artery disease without angina pectoris Status: Chronic Qualifiers: Qualified Codes: I25.10 - Atherosclerotic heart disease of [place] coronary artery without angina pectoris ANAIS HDZ MD Jun 20, 2022 12:04
[2022-06-20] MEDS: ENOXAPARIN 40 MG/0.4 ML (LOVENOX) SYR SC SCH (12:07)
[2022-06-20] MEDS: meTOprolol 5 MG/5 ML (LOPRESSOR) VIAL IV SCH ×3 (12:07→23:50)
[2022-06-20] MEDS: inSUlin ASPART (NovoLOG) 1 UNIT/0.01 ML (CHARGE PER UNIT) SC SCH ×3 (12:07→20:49)
[2022-06-20 15:49] LABS: ABG BASE EXCESS 15.4 MMOL/L (-2.5-2.5); ABG OXYGEN SATURATION 95 % (94-100); ABG PCO2 49 MMHG (35-45); ABG PH 7.52 (7.37-7.43); ABG PO2 57 MMHG (79-93)
[2022-06-20 16:06] LABS: ABG TCO2 41.5 MMOL/L (21.0-31.0); ALLENS TEST YES-POS; INSPIRED O2 RA; PATIENT TEMP 36.1; VENTILATOR NO
[2022-06-20 18:17] LABS: POTASSIUM 3.4 MMOL/L (3.6-5.0)
[2022-06-20 18:18] LABS: CALCIUM 8.5 MG/DL (8.5-10.1)
[2022-06-20 18:23] LABS: CREATININE SERUM 0.56 MG/DL (0.60-1.30)
[2022-06-21] MEDS: RT-ALBUTEROL/IPRATROPIUM 3 ML (DUONEB) VIAL INH SCH ×5 (02:19→22:34)
[2022-06-21] MEDS: CEFEPIME INJECTION 1,000 MG in NS (IVPB) 50 ML IV SCH ×4 (03:15→22:51)
[2022-06-21] MEDS: LORazepam INJ 2 MG/ML (ATIVAN) VIAL IV PRN ×2 (03:16→11:08)
[2022-06-21 04:19] LABS: BASOPHILS % (AUTO) 0 % (0-10); EOSINOPHILS % (AUTO) 0 % (0-10); HEMATOCRIT 28 % (40-54); HEMOGLOBIN 9.9 g/dL (13.3-17.7); LYMPHOCYTES # (AUTO) 0.2 10^3/uL (1.0-4.0); LYMPHOCYTES % (AUTO) 2 % (12-44); MEAN CORPUSCULAR HEMOGLOBIN 36 pg (25-34); MEAN CORPUSCULAR HGB CONC 35 g/dL (32-36); MEAN CORPUSCULAR VOLUME 103 fL (80-99); MEAN PLATELET VOLUME 9.4 fL (9.0-12.2); MONOCYTES # (AUTO) 0.6 10^3/uL (0.0-1.0); MONOCYTES % (AUTO) 5 % (0-12); NEUTROPHILS # (AUTO) 11.7 10^3/uL (1.8-7.8); NEUTROPHILS % (AUTO) 93 % (42-75); PLATELET COUNT 198 10^3/uL (130-400); WHITE BLOOD COUNT 12.7 10^3/uL (4.3-11.0)
[2022-06-21 04:44] LABS: ALBUMIN 3.2 GM/DL (3.2-4.5); BILIRUBIN,TOTAL 0.6 MG/DL (0.1-1.0); CALCIUM 8.3 MG/DL (8.5-10.1); CREATININE SERUM 0.57 MG/DL (0.60-1.30); MAGNESIUM 1.9 MG/DL (1.6-2.4); PHOSPHORUS 2.8 MG/DL (2.3-4.7); POTASSIUM 3.3 MMOL/L (3.6-5.0); TOTAL PROTEIN 5.4 GM/DL (6.4-8.2)
[2022-06-21] MEDS: MAGNESIUM 1 GM/100 ML IVPB 100 ML IV SCH ×3 (05:12→06:55)
[2022-06-21] MEDS: inSUlin ASPART (NovoLOG) 1 UNIT/0.01 ML (CHARGE PER UNIT) SC SCH ×4 (05:13→21:25)
[2022-06-21] MEDS: POTASSIUM CL 10MEQ/50ML IVPB 50 ML IV SCH (05:15)
[2022-06-21] MEDS: KCL 20 MEQ TAB (K-DUR) PO SCH (05:16)
[2022-06-21] MEDS: meTOprolol 5 MG/5 ML (LOPRESSOR) VIAL IV SCH ×3 (05:36→17:59)
[2022-06-21] MEDS: THIAMINE 100 MG (VITAMIN B-1) TAB PO SCH (05:37)
[2022-06-21] MEDS: methylPREDNISolone 40 MG/ML (Solu-MEDROL) VIAL IV SCH (05:37)
[2022-06-21] MEDS: MULTIVIT W/MINERALS TAB (THERAGRAN M) PO SCH (05:37)
[2022-06-21] MEDS: NS IV 1000 ML 1,000 ML IV SCH ×2 (05:38→16:09)
[2022-06-21] MEDS ORDERED: KCL 20 MEQ TAB (K-DUR) PO ONE ×2 (06:00→08:00)
[2022-06-21] MEDS: RT-BUDESONIDE NEBS 0.5 MG/2ML (PULMICORT) AMP INH SCH ×2 (07:10→22:34)
--- NOTE | 2022-06-21 07:34 | Diagnostic Imaging Report ---
INDICATION: Pneumonia Frontal chest obtained at 4:15 a.m. and compared to 06/19/2022. There is poststernotomy change. The heart is normal in size. There is chronic central vascular congestion. There is some mild left basilar infiltrate versus atelectasis. There is no pneumothorax or pleural fluid. IMPRESSION: COPD changes and central vascular congestion with poststernotomy change. Mild infiltrate or atelectasis in left base. Dictated by: Dictated on workstation # [id number]
[2022-06-21] MEDS: SENNOSIDES 8.6 MG (SENOKOT) TAB PO SCH ×2 (08:53→20:00)
[2022-06-21] MEDS: FOLIC ACID 1 MG TAB PO SCH (08:54)
[2022-06-21] MEDS: MAGNESIUM OXIDE (MAG-OX)400 MG TAB PO SCH ×2 (08:54→20:00)
[2022-06-21] MEDS: DOCUSATE SODIUM 100 MG (COLACE) CAP PO SCH ×2 (08:54→20:00)
[2022-06-21 09:11] LABS: ABG BASE EXCESS 14.7 MMOL/L (-2.5-2.5); ABG OXYGEN SATURATION 84 % (94-100); ABG PCO2 55 MMHG (35-45); ABG PH 7.47 (7.37-7.43); ABG PO2 44 MMHG (79-93)
[2022-06-21 09:15] LABS: ABG TCO2 41.4 MMOL/L (21.0-31.0)
[2022-06-21 09:16] LABS: ALLENS TEST YES-POS; INSPIRED O2 100; PATIENT TEMP 36.3; VENTILATOR NO
--- NOTE | 2022-06-21 10:37 | Tele-ICU Progress Note ---
Subjective Date Seen by a Provider: Jun 21, 2022 Time Seen by a Provider: 10:30 Subjective/Events-last exam (Tele-ICU Physician , Progress Note ) Service provided via interactive audio and video telecommunications E-CARE system to a patient admitted to ICU bed in [facility]. Patient is seen today due to persistent need of ICU care Available chart/ vitals / labs / Images reviewed Video assessment done using teleICU camera, rest of exam as per RN He is a 71-year-old male with past medical history of COPD, alcohol abuse, coronary artery bypass surgery apparently stopped drinking few days prior to this admission and his noticed that him to have increasing tremors and confusion. He was brought to the emergency room and found to have hypercarbic respiratory failure withCOPDexacerbation, hyponatremia, as well as a atrial fibrillation with rapid ventricular rate. He is initially treated with BiPAP ventilation, steroids and bronchodilators as well as IV antibiotics. Slowly he is hypercarbia and hyponatremia improved. He is a still disoriented and his thinks he may be close to his baseline at home. He has a electrolyte abnormalities which are being replaced 3. Impression 1. Acute and chronic hypercarbic respiratory failure due to COPD exacerbation 2. COPD exacerbation 3. Bacteremia most likely a contamination with Staphylococcus coagulase- negative organisms. 4. Alcohol abuse disorder with withdrawal syndrome slowly improving 5. Hyponatremia most likely also due to alcohol abuse which is moderately improved 6. Atrial fibrillation with rapid ventricular rate, automation qtp tester following the patient. Recommendations 1. We will continue IV antibiotics, steroids and nebulizer treatment and wean as tolerated 2. Oxygenation with nasal cannula and as needed BiPAP ventilation 3. DVT prophylaxis and ulcer prophylaxis 4. Continue to monitor his serum sodium level 5. CIWA protocol. 6. Hyper glycemia most likely due to steroids to be managed by primary care physician with insulin sliding scale. Coordination of care with primary care physician and bedside consultants. I am remotely monitoring this patient from Tele icu station in [place]. I am unable to do the bedside exam, and history/physical and pertinent information is taken from other notes in the computer and bedside staff. Certain portions of this document may have been dictated utilizing voice recognition technology such as [employer]. Inherent to this technology, typographical and grammatical errors may exist. As much as I am diligent to identify and correct to these mistakes, some errors may remain in the document. Critical care time devoted to this patient today is 25 minutes approximately Sepsis Event Evaluation Height, Weight, BMI Height: 5'11.00" Weight: 176lbs. 1.6oz. 79.076751jn; 21.01 BMI Method: Focused Exam Lactate Level 06/19/22 06:15: Lactic Acid Level 1.54 Time of Focused Exam: 07:30 Exam Exam Patient acknowledged, consented, and participated in this virtual visit which was conducted using real time audio/video Vital Signs Date Time Temp Pulse Resp B/P (MAP) Pulse Ox O2 Delivery O2 Flow Rate FiO2 06/21/22 10:00 77 19 146/79 (101) 99 Nasal Cannula 2.00 06/21/22 09:00 88 23 156/85 (108) 99 Nasal Cannula 2.00 06/21/22 08:00 97 36 163/102 (122) 95 Nasal Cannula 2.00 06/21/22 07:22 92 06/21/22 07:10 98 Nasal Cannula 1.00 06/21/22 07:00 92 24 161/89 (113) 99 Nasal Cannula 2.00 06/21/22 06:00 95 22 96 Nasal Cannula 2.00 06/21/22 05:00 96 25 156/89 (111) 99 Nasal Cannula 2.00 06/21/22 04:00 92 25 170/94 (119) 97 Nasal Cannula 2.00 06/21/22 04:00 96 Nasal Cannula 2.00 06/21/22 03:36 36.9 06/21/22 03:00 99 28 157/88 (111) 97 Nasal Cannula 2.00 06/21/22 02:19 97 Nasal Cannula 2.00 06/21/22 02:00 90 28 156/91 (112) 99 Nasal Cannula 2.00 06/21/22 01:00 93 22 157/120 (132) 99 Nasal Cannula 2.00 06/21/22 01:00 95 06/21/22 00:00 95 26 160/94 (116) 99 Nasal Cannula 2.00 06/21/22 00:00 36.7 06/20/22 23:59 95 Nasal Cannula 2.00 06/20/22 23:00 103 25 159/78 (105) 98 Nasal Cannula 2.00 06/20/22 22:00 103 22 146/93 (110) 98 Nasal Cannula 2.00 06/20/22 21:40 98 Nasal Cannula 2.00 06/20/22 21:00 93 20 156/83 (107) Nasal Cannula 2.00 06/20/22 20:00 93 18 165/97 (119) Nasal Cannula 2.00 06/20/22 20:00 94 Nasal Cannula 2.00 06/20/22 19:33 36.8 06/20/22 19:00 92 06/20/22 19:00 90 18 143/79 (100) 99 Nasal Cannula 2.00 06/20/22 18:37 98 Nasal Cannula 2.00 06/20/22 18:00 82 14 154/98 (116) Nasal Cannula 2.00 06/20/22 17:00 84 20 141/76 (97) 94 Nasal Cannula 2.00 06/20/22 16:11 36.1 06/20/22 16:00 90 22 171/116 (134) 91 Nasal Cannula 2.00 06/20/22 16:00 94 Nasal Cannula 2.00 06/20/22 15:00 90 25 162/86 (111) 90 Nasal Cannula 2.00 06/20/22 14:45 99 Nasal Cannula 2.00 06/20/22 14:11 97 Nasal Cannula 2.00 06/20/22 14:00 84 27 155/102 (119) 98 Nasal Cannula 4.00 06/20/22 13:15 76 16 138/122 (127) 99 Nasal Cannula 4.00 06/20/22 13:00 78 25 147/133 (138) 99 Nasal Cannula 4.00 06/20/22 12:31 77 06/20/22 12:00 77 28 154/80 (104) 97 Nasal Cannula 4.00 06/20/22 12:00 Nasal Cannula 4.00 06/20/22 12:00 100 Nasal Cannula 4.00 06/20/22 11:45 36.1 06/20/22 11:00 73 24 167/92 (117) 97 NIV Bilevel 25.00 06/20/22 10:33 80 21 97 25.00 I & O 06/21/22 06:59 Intake Total 1125 ml Output Total 2975 ml Balance -1850 ml Height & Weight Height: 5'11.00" Weight: 176lbs. 1.6oz. 79.751673tn; 21.01 BMI Method: General Appearance: WD/WN, Chronically ill, Other HEENT: PERRL/EOMI, Other Neck: Non Tender Respiratory: Other Cardiovascular: Irregularly Irregular Capillary Refill: Greater Than 3 Seconds Gastrointestinal: normal bowel sounds, non tender Extremity: No Pedal Edema, Slow Capillary Refill Neurologic/Psychiatric: Alert, No Motor/Sensory Deficits, parts control clerk II-XII Norm as Tested Skin: Normal Color, Warm/Dry Results Lab Laboratory Tests 06/19/22 11:40 06/19/22 16:20 06/19/22 19:41 06/20/22 00:11 06/20/22 03:48 06/20/22 08:09 06/20/22 17:45 06/21/22 03:51 Assessment/Plan Assessment/Plan as above Critical Care: Critically Ill Patient Time spent with patient (mins): 25 BLANK ROBERTSON MD Jun 21, 2022 10:37
[2022-06-21] MEDS: ENOXAPARIN 40 MG/0.4 ML (LOVENOX) SYR SC SCH (11:08)
[2022-06-21] MEDS ORDERED: ASPI-1238 PO (12:09)
[2022-06-21] MEDS ORDERED: ACET-2267 PO (12:09)
[2022-06-21 16:54] VITALS: BP 167/87
--- NOTE | 2022-06-21 17:16 | Progress Note ---
Subjective Subjective/Events-last exam Patient awake this AM. States that he has some back pain. Tolerating PO diet. Has not been out of bed. Review of Systems General: Fatigue, Malaise Pulmonary: No Dyspnea; Cough Cardiovascular: No: Chest Pain, Palpitations, Edema Gastrointestinal: No: Nausea, Vomiting, Abdominal Pain, Diarrhea, Constipation Musculoskeletal: back pain Neurological: Weakness, Incoordination Focused Exam Lactate Level 06/19/22 06:15: Lactic Acid Level 1.54 Time of Focused Exam: 07:30 Objective Exam Last Set of Vital Signs Vital Signs Date Time Temp Pulse Resp B/P (MAP) Pulse Ox O2 Delivery O2 Flow Rate FiO2 06/21/22 16:54 37.1 87 18 167/87 (113) 96 Nasal Cannula 2.00 06/19/22 10:57 100 Capillary Refill : Greater Than 3 Seconds I&O Intake and Output 06/21/22 00:00 Intake Total 1725 ml Output Total 2575 ml Balance -850 ml Intake Oral 325 ml IV Total 1400 ml Output Urine Total 2575 ml General: Alert, Oriented X3, No Acute Distress Lungs: Normal Air Movement, Other (End exp wheezing, normal work of breathing at rest) Heart: Regular Rate, No Murmurs Abdomen: Normal Bowel Sounds, Soft, No Tenderness Neuro: Normal Speech, Cranial Nerves 3-12 NL Results/Procedures Lab Laboratory Tests 06/20/22 17:45: Sodium Level 130L, Potassium Level 3.4L, Chloride Level 88L, Carbon Dioxide Level 33H, Anion Gap 9, Blood Urea Nitrogen 7, Creatinine 0.56L, Estimat Glomerular Filtration Rate 105, BUN/Creatinine Ratio 13, Glucose Level 137H, Calcium Level 8.5 06/20/22 20:43: Glucometer 148H 06/21/22 03:51: Sodium Level 130L, Potassium Level 3.3L, Chloride Level 88L, Carbon Dioxide Level 32, Anion Gap 10, Blood Urea Nitrogen 7, Creatinine 0.57L, Estimat Glomerular Filtration Rate 105, BUN/Creatinine Ratio 12, Glucose Level 129H, Calcium Level 8.3L, White Blood Count 12.7H, Red Blood Count 2.72L, Hemoglobin 9.9L, Hematocrit 28L, Mean Corpuscular Volume 103H, Mean Corpuscular Hemoglobin 36H, Mean Corpuscular Hemoglobin Concent 35, Red Cell Distribution Width 12.4, Platelet Count 198, Mean Platelet Volume 9.4, Immature Granulocyte % (Auto) 1, Neutrophils (%) (Auto) 93H, Lymphocytes (%) (Auto) 2L, Monocytes (%) (Auto) 5, Eosinophils (%) (Auto) 0, Basophils (%) (Auto) 0, Neutrophils # (Auto) 11.7H, Lymphocytes # (Auto) 0.2L, Monocytes # (Auto) 0.6, Eosinophils # (Auto) 0.0, Basophils # (Auto) 0.0, Immature Granulocyte # (Auto) 0.1, Corrected Calcium 8.9, Phosphorus Level 2.8, Magnesium Level 1.9, Total Bilirubin 0.6, Aspartate Amino Transf (AST/SGOT) 18, Alanine Aminotransferase (ALT/SGPT) 14, Alkaline Phosphatase 71, Total Protein 5.4L, Albumin 3.2 06/21/22 09:07: Blood Gas Puncture Site LEFT WRIST, Blood Gas Patient Temperature 36.3, Arterial Blood pH 7.47H, Arterial Blood Partial Pressure CO2 55H, Arterial Blood Partial Pressure O2 44L, Arterial Blood HCO3 40H, Arterial Blood Total CO2 41.4*H, Arterial Blood Oxygen Saturation 84L, Arterial Blood Base Excess 14.7H, Daryl Test YES-POS, Blood Gas Ventilator Setting NO, Blood Gas Inspired Oxygen 100 06/21/22 11:27: Glucometer 167H 06/21/22 15:54: Glucometer 139H Microbiology 06/19/22 MRSA Screen - Final, Complete MRSA not isolated 06/19/22 Urine Culture - Final, Complete NO GROWTH 06/19/22 Blood Culture - Preliminary, Resulted No growth Assessment/Plan Assessment/Plan (1) Acute on chronic respiratory failure with hypoxia and hypercapnia Status: Acute Assessment & Plan: 06/20: On bipap, ABG pH 7.6, improved CO2, will titrate sedation and see if patient can be taken off bipap, continue PPX antibiotics and IV steroids at this time 06/21: Doing well on NC, encouraged IS and out of bed, will order PT (2) Acute exacerbation of chronic obstructive pulmonary disease (COPD) Status: Acute (3) Alcohol withdrawal Status: Acute Assessment & Plan: 06/20: Requiring precedex due to agitation, CIWS protocol, ativan PRN, Thiamine/FA given 06/21: given PO ativan over IV Qualifiers: Qualified Codes: F10.931 - Alcohol use, unspecified with withdrawal delirium (4) Atrial fibrillation Status: Acute Assessment & Plan: 06/20: Cardiology consulted, appreciate recommendations, patient rate controlled, Lovenox for PPX due to NPO status Qualifiers: Qualified Codes: I48.0 - Paroxysmal atrial fibrillation (5) Hyponatremia Status: Acute Assessment & Plan: 06/20: Stable, fluid restriction 06/21: Improving (6) Coronary artery disease without angina pectoris Status: Chronic Qualifiers: Qualified Codes: I25.10 - Atherosclerotic heart disease of [place] coronary artery without angina pectoris (7) Macrocytic anemia Status: Chronic Assessment & Plan: 06/21: Continue thiamine and FA, no signs of acute bleeding at this time (8) Physical debility Status: Acute Assessment & Plan: 06/21: PT ordered, patient will likely need NH placement ANAIS HDZ MD Jun 21, 2022 17:16
[2022-06-21] MEDS: LORazepam 1 MG (ATIVAN) TAB PO PRN ×3 (18:03→22:52)
[2022-06-21 19:27] VITALS: BP 117/70
[2022-06-21] MEDS: MELATONIN 3 MG TABLET PO PRN (20:00)
[2022-06-21 23:25] VITALS: BP 154/81
[2022-06-22] VITALS (14 sets, daily range): BP systolic 85–146; BP diastolic 61–88
[2022-06-22] MEDS: meTOprolol 5 MG/5 ML (LOPRESSOR) VIAL IV SCH ×5 (00:46→23:38)
[2022-06-22] MEDS: NS IV 1000 ML 1,000 ML IV SCH (01:26)
[2022-06-22] MEDS: RT-ALBUTEROL/IPRATROPIUM 3 ML (DUONEB) VIAL INH SCH ×6 (02:27→22:04)
[2022-06-22] MEDS: CEFEPIME INJECTION 1,000 MG in NS (IVPB) 50 ML IV SCH ×4 (04:47→21:46)
[2022-06-22 05:01] LABS: BASOPHILS % (AUTO) 0 % (0-10); EOSINOPHILS % (AUTO) 0 % (0-10); HEMATOCRIT 30 % (40-54); HEMOGLOBIN 10.2 g/dL (13.3-17.7); LYMPHOCYTES # (AUTO) 0.8 10^3/uL (1.0-4.0); LYMPHOCYTES % (AUTO) 7 % (12-44); MEAN CORPUSCULAR HEMOGLOBIN 37 pg (25-34); MEAN CORPUSCULAR HGB CONC 35 g/dL (32-36); MEAN CORPUSCULAR VOLUME 107 fL (80-99); MEAN PLATELET VOLUME 9.3 fL (9.0-12.2); MONOCYTES # (AUTO) 1.2 10^3/uL (0.0-1.0); MONOCYTES % (AUTO) 11 % (0-12); NEUTROPHILS # (AUTO) 9.1 10^3/uL (1.8-7.8); NEUTROPHILS % (AUTO) 81 % (42-75); PLATELET COUNT 195 10^3/uL (130-400); WHITE BLOOD COUNT 11.2 10^3/uL (4.3-11.0)
[2022-06-22 05:21] LABS: ALBUMIN 3.1 GM/DL (3.2-4.5); BILIRUBIN,TOTAL 0.5 MG/DL (0.1-1.0); CALCIUM 8.7 MG/DL (8.5-10.1); CREATININE SERUM 0.6 MG/DL (0.60-1.30); POTASSIUM 3.8 MMOL/L (3.6-5.0); TOTAL PROTEIN 5.1 GM/DL (6.4-8.2)
[2022-06-22] MEDS: predniSONE 20 MG TAB PO SCH (06:14)
[2022-06-22] MEDS: MULTIVIT W/MINERALS TAB (THERAGRAN M) PO SCH (06:14)
[2022-06-22] MEDS: inSUlin ASPART (NovoLOG) 1 UNIT/0.01 ML (CHARGE PER UNIT) SC SCH ×4 (06:14→20:45)
[2022-06-22] MEDS: THIAMINE 100 MG (VITAMIN B-1) TAB PO SCH (06:14)
[2022-06-22] MEDS: RT-BUDESONIDE NEBS 0.5 MG/2ML (PULMICORT) AMP INH SCH ×2 (06:52→22:04)
[2022-06-22] MEDS: DOCUSATE SODIUM 100 MG (COLACE) CAP PO SCH ×2 (08:46→20:45)
[2022-06-22] MEDS: FOLIC ACID 1 MG TAB PO SCH (08:46)
[2022-06-22] MEDS: MAGNESIUM OXIDE (MAG-OX)400 MG TAB PO SCH (08:46)
[2022-06-22] MEDS: SENNOSIDES 8.6 MG (SENOKOT) TAB PO SCH ×2 (08:47→20:45)
[2022-06-22] MEDS: ENOXAPARIN 40 MG/0.4 ML (LOVENOX) SYR SC SCH (11:00)
--- NOTE | 2022-06-22 12:01 | Physical Therapy Evaluation ---
PT Evaluation-General Medical Diagnosis Admission Date Jun 19, 2022 at 10:33 Medical Diagnosis: Acute hypercapneic hypoxic respiratory failure Onset Date: Jun 19, 2022 Therapy Diagnosis Therapy Diagnosis: Gait deficit, strength deficit Height/Weight Height (Feet): 5 Height (Inches): 11.00 Weight (Pounds): 176 Weight (Ounces): 1.6 Precautions Precautions/Isolations: Fall Prevention, Standard Precautions Weight Bear Status Right Lower Extremity: Right Full Weight Bearing Left Lower Extremity: Left Full Weight Bearing Referral Physician: Dr. Wilson Reason for Referral: Evaluation/Treatment Medical History Pertinent Medical History: Atrial Fib, Alcoholism, CABG, CAD, COPD, GERD, HTN, IA Reviewed History: Yes Social History Home: Single Level Current Living Status: Spouse Entry Into Home: Stairs With Railing PT Steps Into Home: 5 Prior Prior Level of Function SCALE: Activities may be completed with or without assistive devices. 6-Facpgoknxx-lcjtpud completes the activity by him/herself with no assistance from a helper. 5-Set-up or Clean-up Assistance-helper sets up or cleans up; patient completes activity. [place] assists only prior to or following the activity. 4-Supervision or Touching Assistance-helper provides verbal cues and/or touching/steadying and/or contact guard assistance as patient completes activity. Assistance may be provided throughout the activity or intermittently. 3-Partial/Moderate Assistance-helper does LESS THAN HALF the effort. [place] lifts, holds or supports trunk or limbs, but provides less than half the effort. 2-Substantial/Maximal Assistance-helper does MORE THAN HALF the effort. [place] lifts or holds trunk or limbs and provides more than half the effort. 4-Ocidpglkf-jodkvi does ALL the effort. Patient does none of the effort to complete the activity. Or, the assistance of 2 or more helpers is required for the patient to complete the activity. If activity was not attempted, code reason: 7-Patient Refused. 9-Not Applicable-not attempted and the patient did not perform the activity before the current illness, exacerbation or injury. 10-Not Attempted due to Environmental Limitations-(lack of equipment, weather restraints, etc.). 88-Not Attempted due to Medical Conditions or Safety Concerns. Bed Mobility: 6 Transfers (B,C,W/C): 6 Gait: 6 Stairs: 6 Indoor Mobility (Ambulation): Independent Stairs: Independent Prior Devices Use: Walker PT Evaluation-Current Subjective Patient very difficult to arouse, confused initially upon waking up and throughout most of the treatment. Patient rates pain at 5/10 currently in his abdomen. Objective Patient Orientation: Person Attachments: Oxygen, Myers Catheter, IV ROM/Strength ROM Lower Extremities WFLs BLEs all planes Strength Lower Extremities 3/5 BLEs all planes Sensory Vision: Wears Glasses Hearing: Impaired Sensation Right Lower Extremit: Impaired Sensation Left Lower Extremity: Impaired Transfers Roll Left to Right (QC): 3 Sit to Lying (QC): 3 Lying to Sitting/Side of Bed(Q: 3 Sit to Stand (QC): 3 Chair/Chz-vg-Ueqce Xfer(QC): 3 Gait Does the Patient Walk?: Yes Mode of Locomotion: Walk Anticipated Mode of Locomotion: Walk Walk 10 feet (QC): 3 Distance: 5 feet Gait Assistive Device: FWW Balance Sitting Static: Fair Sitting Dynamic: Fair Standing Static: Poor Standing Dynamic: Poor Assessment/Needs Patient requires mod to max A for all bed mobility and transfers. Patient ambulates 5 feet with FWW, with mod A and verbal cues to the chair. Patient in chair post treatment with all needs met, nursing notfied, call light in reach. Patient will benefit from skilled physical therapy intervention to improve the above listed deficits. Rehab Potential: Fair Equipment Needs FWW PT Usp Goals Usp Goals PT Financial Services Technician Goals Time Frame: Jul 09, 2022 Roll Left & Right (QC): 6 Sit to Lying (QC): 6 Lying-Sitting on Side/Bed(QC): 6 Sit to Stand (QC): 6 Chair/Dvm-ez-Vpahx Xfer(QC): 6 Toilet Transfer (QC): 6 Does the Patient Walk: Yes Walk 10 feet (QC): 6 Walk 50ft with 2 Turns (QC): 6 Walk 150 ft (QC): 4 1 Step (curb) (QC): 3 4 Steps (QC): 3 PT Plan Problem List Problem List: Activity Tolerance, Functional Strength, Safety, Balance, Gait, Transfer, Bed Mobility, ROM Treatment/Plan Treatment Plan: Continue Plan of Care Treatment Plan: Bed Mobility, Education, Functional Activity Yoanna, Functional Strength, Group Therapy, Gait, Safety, Therapeutic Exercise, Transfers Treatment Duration: Jul 10, 2022 Frequency: 6 times per week Estimated Hrs Per Day: .25 hour per day Patient and/or Family Agrees t: Yes Safety Risks/Education Patient Education: Gait Training, Transfer Techniques Teaching Recipient: Patient Teaching Methods: Demonstration, Discussion Response to Teaching: Reinforcement Needed Time Time In: 1020 Time Out: 1040 DATE: Jun 22, 2022 Total Billed Treatment Time: 20 Total Billed Treatment Visit, EUNICE LUO PT Jun 22, 2022 12:01
--- NOTE | 2022-06-22 14:58 | Progress Note ---
Subjective Subjective/Events-last exam Patient up sitting in chair. States that he is feeling better but still very weak. Tolerating PO diet. Review of Systems General: Fatigue Pulmonary: Dyspnea, Cough Cardiovascular: Edema; No: Chest Pain, Palpitations Gastrointestinal: No: Nausea, Vomiting, Abdominal Pain Neurological: Weakness, Incoordination, Confusion Focused Exam Time of Focused Exam: 07:30 Objective Exam Last Set of Vital Signs Vital Signs Date Time Temp Pulse Resp B/P (MAP) Pulse Ox O2 Delivery O2 Flow Rate FiO2 06/22/22 13:11 76 06/22/22 11:05 36.4 18 117/61 (79) 96 Nasal Cannula 2.00 06/22/22 08:34 28 Capillary Refill : Greater Than 3 Seconds I&O Intake and Output 06/21/22 23:59 Intake Total 2110 ml Output Total 1850 ml Balance 260 ml Intake Oral 1860 ml IV Total 250 ml Output Urine Total 1850 ml General: Alert, No Acute Distress Lungs: Normal Air Movement, Other (Diffuse wheezing, normal work of breathing at baseline) Heart: Regular Rate, No Murmurs Abdomen: Normal Bowel Sounds, Soft, No Tenderness, No Masses Extremities: Other (2+ pitting edema bilaterally) Neuro: Normal Speech Results/Procedures Lab Laboratory Tests 06/21/22 15:54: Glucometer 139H 06/21/22 21:23: Glucometer 132H 06/22/22 04:33: White Blood Count 11.2H, Red Blood Count 2.78L, Hemoglobin 10.2L, Hematocrit 30L , Mean Corpuscular Volume 107H, Mean Corpuscular Hemoglobin 37H, Mean Corpuscular Hemoglobin Concent 35, Red Cell Distribution Width 12.6, Platelet Count 195, Mean Platelet Volume 9.3, Immature Granulocyte % (Auto) 1, Neutrophils (%) (Auto) 81H, Lymphocytes (%) (Auto) 7L, Monocytes (%) (Auto) 11, Eosinophils (%) (Auto) 0, Basophils (%) (Auto) 0, Neutrophils # (Auto) 9.1H, Lymphocytes # (Auto) 0.8L, Monocytes # (Auto) 1.2H, Eosinophils # (Auto) 0.0, Basophils # (Auto) 0.0, Immature Granulocyte # (Auto) 0.1, Sodium Level 133L, Potassium Level 3.8, Chloride Level 95L, Carbon Dioxide Level 28, Anion Gap 10, Blood Urea Nitrogen 9, Creatinine 0.60, Estimat Glomerular Filtration Rate 103, BUN/Creatinine Ratio 15, Glucose Level 100, Calcium Level 8.7, Corrected Calcium 9.4, Total Bilirubin 0.5, Aspartate Amino Transf (AST/SGOT) 18, Alanine Aminotransferase (ALT/SGPT) 16, Alkaline Phosphatase 70, Total Protein 5.1L, Albumin 3.1L 06/22/22 05:09: Glucometer 105 06/22/22 11:26: Glucometer 174H Microbiology 06/19/22 MRSA Screen - Final, Complete MRSA not isolated 06/19/22 Urine Culture - Final, Complete NO GROWTH 06/19/22 Blood Culture - Preliminary, Resulted No growth Assessment/Plan Assessment/Plan (1) Acute on chronic respiratory failure with hypoxia and hypercapnia Status: Acute Assessment & Plan: 06/20: On bipap, ABG pH 7.6, improved CO2, will titrate sedation and see if patient can be taken off bipap, continue PPX antibiotics and IV steroids at this time 06/21: Doing well on NC, encouraged IS and out of bed, will order PT 06/22: Much improved (2) Acute exacerbation of chronic obstructive pulmonary disease (COPD) Status: Acute (3) Alcohol withdrawal Status: Acute Assessment & Plan: 06/20: Requiring precedex due to agitation, CIWS protocol, ativan PRN, Thiamine/FA given 06/21: given PO ativan over IV 06/22: Decreased need for ativan Qualifiers: Qualified Codes: F10.931 - Alcohol use, unspecified with withdrawal delirium (4) Atrial fibrillation Status: Acute Assessment & Plan: 06/20: Cardiology consulted, appreciate recommendations, patient rate controlled, Lovenox for PPX due to NPO status 06/22: Restart OAC Qualifiers: Qualified Codes: I48.0 - Paroxysmal atrial fibrillation (5) Hyponatremia Status: Acute Assessment & Plan: 06/20: Stable, fluid restriction 06/21: Improving (6) Coronary artery disease without angina pectoris Status: Chronic Qualifiers: Qualified Codes: I25.10 - Atherosclerotic heart disease of [place] coronary artery without angina pectoris (7) Macrocytic anemia Status: Chronic Assessment & Plan: 06/21: Continue thiamine and FA, no signs of acute bleeding at this time (8) Physical debility Status: Acute Assessment & Plan: 06/21: PT ordered, patient will likely need NH placement 06/22: Discussed SNF placement with patient and he reluctantly agreed, SW notified ANAIS HDZ MD Jun 22, 2022 14:58
[2022-06-22] MEDS ORDERED: meTOprolol 5 MG/5 ML (LOPRESSOR) VIAL ONE (18:14)
[2022-06-22] MEDS ORDERED: meTOprolol 5 MG/5 ML (LOPRESSOR) VIAL IV NR (18:15)
[2022-06-22] MEDS: ACETAMINOPHEN 325 MG TABLET PO PRN (21:55)
[2022-06-22] MEDS: dilTIAZem DRIP PRE-MIX 125 ML IV SCH (22:01)
[2022-06-23] MEDS: MELATONIN 3 MG TABLET PO PRN (02:01)
[2022-06-23] MEDS: RT-ALBUTEROL/IPRATROPIUM 3 ML (DUONEB) VIAL INH SCH ×6 (02:51→21:31)
[2022-06-23] MEDS: CEFEPIME INJECTION 1,000 MG in NS (IVPB) 50 ML IV SCH ×4 (03:49→21:29)
[2022-06-23 04:45] LABS: BASOPHILS % (AUTO) 0 % (0-10); EOSINOPHILS # (AUTO) 0.3 10^3/uL (0.0-0.3); EOSINOPHILS % (AUTO) 3 % (0-10); HEMATOCRIT 29 % (40-54); HEMOGLOBIN 9.8 g/dL (13.3-17.7); LYMPHOCYTES # (AUTO) 1.1 10^3/uL (1.0-4.0); LYMPHOCYTES % (AUTO) 11 % (12-44); MEAN CORPUSCULAR HEMOGLOBIN 36 pg (25-34); MEAN CORPUSCULAR HGB CONC 33 g/dL (32-36); MEAN CORPUSCULAR VOLUME 107 fL (80-99); MEAN PLATELET VOLUME 9.4 fL (9.0-12.2); MONOCYTES # (AUTO) 1.1 10^3/uL (0.0-1.0); MONOCYTES % (AUTO) 10 % (0-12); NEUTROPHILS # (AUTO) 7.7 10^3/uL (1.8-7.8); NEUTROPHILS % (AUTO) 76 % (42-75); PLATELET COUNT 190 10^3/uL (130-400); WHITE BLOOD COUNT 10.2 10^3/uL (4.3-11.0)
[2022-06-23 05:08] LABS: ALBUMIN 2.8 GM/DL (3.2-4.5); BILIRUBIN,TOTAL 0.4 MG/DL (0.1-1.0); CALCIUM 8.5 MG/DL (8.5-10.1); CREATININE SERUM 0.63 MG/DL (0.60-1.30); TOTAL PROTEIN 4.8 GM/DL (6.4-8.2)
[2022-06-23] MEDS: inSUlin ASPART (NovoLOG) 1 UNIT/0.01 ML (CHARGE PER UNIT) SC SCH ×4 (05:30→20:03)
[2022-06-23] MEDS: meTOprolol 5 MG/5 ML (LOPRESSOR) VIAL IV SCH ×4 (05:33→23:40)
[2022-06-23] MEDS: MULTIVIT W/MINERALS TAB (THERAGRAN M) PO SCH (06:22)
[2022-06-23] MEDS: predniSONE 20 MG TAB PO SCH (06:22)
--- NOTE | 2022-06-23 07:36 | Physical Therapy Progress Note ---
Therapy Progress Note Patient transferred to ICU. PT will require new orders. KALLIE TOMLINSON PT Jun 23, 2022 07:36
[2022-06-23] MEDS: FOLIC ACID 1 MG TAB PO SCH (09:15)
[2022-06-23] MEDS: SENNOSIDES 8.6 MG (SENOKOT) TAB PO SCH ×2 (09:15→20:03)
[2022-06-23] MEDS: DOCUSATE SODIUM 100 MG (COLACE) CAP PO SCH ×2 (09:15→20:03)
--- NOTE | 2022-06-23 09:57 | Physician Query Clarification ---
Physician Query-General Query to Physician: Clinical Validation Clarification Dr Aarti Hdz PNA/Pneumonia has been documented in the medical record. After study, has PNA/Pneumonia been ruled out? If it has been ruled out, please document PNA/Pneumonia ruled out" in the progress notes and/or discharge summary. Yes/Agreed, PNA/Pneumonia ruled out/is not clinically valid Not agreed, PNA/Pneumonia has not been ruled out/is clinically valid* *Please document the clinical evidence supportive of this diagnosis (even if now resolved) in the Progress Notes and Discharge Summary Other, with explanation of the clinical findings Clinically undetermined, no explanation for the clinical findings Additional information: "h/o alcoholism and respiratory failure who presented to the ER via EMS due to found down at home", Admission C Xry: "No effusion or pneumothorax...No focal consolidation". Non productive cough, Admission VS/LABS: HR 94, RR 20, BP 151/127, SpO2 100% sat on 4 L, T 35.4, WBC 5.4, , lactic acid 1.54 Treatment in ER: NS 1L, dexamethasone, methylprednisolone IV, cefepime IV, then Cefepime IV Q 12 hours continued to present In responding to this query, please exercise your independent professional judgment. The purpose of this communication is to more accurately reflect the complexity of your patients condition. The fact that a question is asked does not imply that any particular answer is desired or expected. Thank you for your timely response to this clarification. Maria T Soto MSN, RN Clinical Tree Trimmer Helper [email or web address] PHYSICIAN RESPONSE: Based on the clinical findings in the record, please respond to the query above on this document as an addendum. Physician Response: Physician Response Patient still admitted, please send to Dr Key If you have questions please contact: Skein Winder: Ext: Thank you for your time and cooperation. Clinical Tree Trimmer Helper/Skein Winder This is a permanent part of the medical record MARIA T SOTO Jun 23, 2022 09:57 ANAIS HDZ MD Jun 27, 2022 19:55
--- NOTE | 2022-06-23 09:57 | Physician Query Clarification ---
Physician Query-General Query to Physician: Clinical Validation Clarification Dr Aarti Wilson Sepsis has been documented in the medical record. After study, has Sepsis been ruled out? If it has been ruled out, please document Sepsis ruled out" in the progress notes and/or discharge summary. Yes/Agreed, Sepsis out/is not clinically valid Not agreed, Sepsis has not been ruled out/is clinically valid* *Please document the clinical evidence supportive of this diagnosis (even if now resolved) in the Progress Notes and Discharge Summary Other, with explanation of the clinical findings Clinically undetermined, no explanation for the clinical findings Additional information: "h/o alcoholism and respiratory failure who presented to the ER via EMS due to found down at home", Documentation of PNA DX, Admission VS/LABS: HR 94, RR 20, BP 151/127, SpO2 100% sat on 4 L, T 35.4, WBC 5.4, , lactic acid 1.54 Treatment in ER: NS 1L, dexamethasone, methylprednisolone IV, cefepime IV, then Cefepime IV Q 12 hours continued to present In responding to this query, please exercise your independent professional judgment. The purpose of this communication is to more accurately reflect the complexity of your patients condition. The fact that a question is asked does not imply that any particular answer is desired or expected. Thank you for your timely response to this clarification. Maria T Alicea MSN, RN Clinical Publishing Systems Analyst [email or web address] PHYSICIAN RESPONSE: Based on the clinical findings in the record, please respond to the query above on this document as an addendum. Physician Response: Physician Response Patient was not septic when I saw the patient If you have questions please contact: C D Reactor Operator: Ext: Thank you for your time and cooperation. Clinical Publishing Systems Analyst/C D Reactor Operator This is a permanent part of the medical rec ord MARIA T ALICEA Jun 23, 2022 09:57 ANAIS WILSON MD Jun 27, 2022 19:57
[2022-06-23] MEDS: RT-BUDESONIDE NEBS 0.5 MG/2ML (PULMICORT) AMP INH SCH ×2 (10:17→21:31)
[2022-06-23] MEDS: ENOXAPARIN 40 MG/0.4 ML (LOVENOX) SYR SC SCH (11:29)
[2022-06-23] MEDS: ACETAMINOPHEN 325 MG TABLET PO PRN (11:29)
--- NOTE | 2022-06-23 11:32 | Tele-ICU Progress Note ---
Subjective Date Seen by a Provider: Jun 23, 2022 Time Seen by a Provider: 11:31 Subjective/Events-last exam (Tele-ICU Physician , Progress Note ) Service provided via interactive audio and video telecommunications E-CARE system to a patient admitted to ICU bed in [facility]. Patient is seen today due to persistent need of ICU care Available chart/ vitals / labs / Images reviewed Video assessment done using teleICU camera, rest of exam as per RN He is a 71-year-old male with past medical history of COPD, alcohol abuse, coronary artery bypass surgery apparently stopped drinking few days prior to this admission and his noticed that him to have increasing tremors and confusion. He was brought to the emergency room and found to have hypercarbic respiratory failure withCOPDexacerbation, hyponatremia, as well as a atrial fibrillation with rapid ventricular rate. He is initially treated with BiPAP ventilation, steroids and bronchodilators as well as IV antibiotics. Slowly he is hypercarbia and hyponatremia improved. He is a still disoriented and his thinks he may be close to his baseline at home. He has a electrolyte abnormalities which are being replaced 06/23/22. he is transferred from floor to icu b/o Afib with rvr requiring cardiazem drip. now hr is controlled but in afib. he is also receiving iv metoprolol Impression 1. Acute and chronic hypercarbic respiratory failure due to COPD exacerbation improved significantly 2. COPD exacerbation 3. Bacteremia most likely a contamination with Staphylococcus coagulase- negative organisms. 4. Alcohol abuse disorder with withdrawal syndrome slowly improving 5. Hyponatremia most likely also due to alcohol abuse which is moderately improved 6. Atrial fibrillation with rapid ventricular rate, counter clerk tractor parts following the patient. Recommendations 1. We will continue IV antibiotics, steroids and nebulizer treatment and wean as tolerated 2. Oxygenation with nasal cannula and as needed BiPAP ventilation 3. DVT prophylaxis and ulcer prophylaxis 4. Continue to monitor his serum sodium level 5. CIWA protocol. 6. Hyper glycemia most likely due to steroids to be managed by primary care physician with insulin sliding scale. Coordination of care with primary care physician and bedside consultants. I am remotely monitoring this patient from Tele icu station in [place]. I am unable to do the bedside exam, and history/physical and pertinent information is taken from other notes in the computer and bedside staff. Certain portions of this document may have been dictated utilizing voice recog nition technology such as Bit[employer]oster. Inherent to this technology, typographical and grammatical errors may exist. As much as I am diligent to identify and correct to these mistakes, some errors may remain in the document. Critical care time devoted to this patient today is 25 minutes approximately Sepsis Event Evaluation Height, Weight, BMI Height: 5'11.00" Weight: 176lbs. 1.6oz. [id number]; 21.20 BMI Method: Focused Exam Time of Focused Exam: 07:30 Exam Exam Patient acknowledged, consented, and participated in this virtual visit which was conducted using real time audio/video Vital Signs Date Time Temp Pulse Resp B/P (MAP) Pulse Ox O2 Delivery O2 Flow Rate FiO2 06/23/22 10:17 96 Nasal Cannula 2.00 06/23/22 10:00 90 35 102/79 (87) 98 Nasal Cannula 2.00 06/23/22 09:00 93 24 108/89 (95) 96 Nasal Cannula 2.00 06/23/22 08:00 98 25 88/64 (72) 96 Nasal Cannula 2.00 06/23/22 07:00 87 23 113/72 (86) 98 Nasal Cannula 2.00 06/23/22 07:00 96 22 113/72 (86) 100 06/23/22 07:00 87 06/23/22 06:56 96 Nasal Cannula 2.00 06/23/22 06:00 82 18 116/96 (103) 96 Nasal Cannula 2.00 06/23/22 05:00 89 20 112/68 (83) 96 06/23/22 04:20 Nasal Cannula 2.00 06/23/22 04:00 36.1 100 22 103/73 (83) 96 Nasal Cannula 2.00 06/23/22 03:00 82 24 84/64 (71) 98 06/23/22 02:51 94 Nasal Cannula 4.00 06/23/22 02:45 77 06/23/22 02:30 93 96/74 (81) 06/23/22 02:00 108 24 100/59 (73) 95 06/23/22 01:30 101 24 118/82 (94) 98 06/23/22 01:00 87 20 110/63 (79) 98 06/23/22 01:00 102 06/23/22 00:30 111 22 118/73 (88) 99 06/23/22 00:00 36.4 100 20 98/73 (81) 99 Nasal Cannula 2.00 06/22/22 23:55 Nasal Cannula 2.00 06/22/22 23:30 120 20 108/76 (87) 98 06/22/22 23:00 102 20 103/74 (84) 99 Nasal Cannula 2.00 06/22/22 23:00 100 20 103/74 (84) 98 Nasal Cannula 2.00 06/22/22 22:45 137 22 105/74 (84) 99 06/22/22 22:30 107 24 97/57 (70) 99 Nasal Cannula 2.00 06/22/22 22:23 100 06/22/22 22:15 106 22 107/64 (78) 94 06/22/22 22:05 92 Nasal Cannula 4.00 06/22/22 22:01 163 118/74 06/22/22 22:00 146 22 118/74 (89) 100 06/22/22 21:30 160 24 89/67 (74) 100 06/22/22 21:00 135 22 95/80 (85) 100 06/22/22 20:45 154 15 85/80 (82) 100 Nasal Cannula 2.00 06/22/22 20:30 174 24 108/69 (82) 100 06/22/22 20:15 146 23 92/74 (80) 100 Nasal Cannula 2.00 06/22/22 20:00 36.1 133 28 92/74 (80) 100 06/22/22 19:45 133 24 112/76 (88) 100 06/22/22 19:45 133 24 112/76 (88) 100 Nasal Cannula 2.00 06/22/22 19:36 98 Nasal Cannula 4.00 06/22/22 19:30 120 28 85/65 (72) 100 06/22/22 19:30 120 29 85/65 (72) 100 Nasal Cannula 2.00 06/22/22 19:30 Nasal Cannula 4.00 06/22/22 19:27 134 06/22/22 19:15 147 26 109/74 (86) 100 Nasal Cannula 2.00 06/22/22 19:15 147 28 109/74 (86) 100 Nasal Cannula 3.00 06/22/22 19:00 36.1 06/22/22 19:00 119 26 105/76 (86) 100 Nasal Cannula 2.00 06/22/22 18:01 167 06/22/22 17:53 152 06/22/22 15:27 98 Nasal Cannula 3.00 06/22/22 15:24 36.6 82 18 135/77 (96) 98 Nasal Cannula 3.00 06/22/22 13:11 76 I & O 06/23/22 07:00 Intake Total 2300 ml Output Total 1275 ml Balance 1025 ml Height & Weight Height: 5'11.00" Weight: 176lbs. 1.6oz. 79.832548ub; 21.20 BMI Method: General Appearance: WD/WN, Chronically ill, Other HEENT: PERRL/EOMI, Other Neck: Non Tender Respiratory: Other Cardiovascular: Irregularly Irregular Capillary Refill: Greater Than 3 Seconds Gastrointestinal: normal bowel sounds, non tender Extremity: No Pedal Edema, Slow Capillary Refill Neurologic/Psychiatric: Alert, No Motor/Sensory Deficits, food counter worker II-XII Norm as Tested Skin: Normal Color, Warm/Dry Results Lab Laboratory Tests 06/22/22 04:33 06/23/22 04:26 Assessment/Plan Assessment/Plan As above Critical Care: Critically Ill Patient Time spent with patient (mins): 25 BLANK ROBERTSON MD Jun 23, 2022 11:32
[2022-06-23] MEDS: RT-ALBUTEROL/IPRATROPIUM 3 ML (DUONEB) VIAL INH PRN (11:59)
--- NOTE | 2022-06-23 16:17 | Progress Note ---
Subjective Subjective/Events-last exam Patient feeling better this AM. Tolerating PO diet. ON had to be transferred back up to ICU due to afib with RVR Review of Systems General: Fatigue, Malaise Pulmonary: Dyspnea Cardiovascular: Palpitations; No: Chest Pain Gastrointestinal: No: Nausea, Vomiting, Abdominal Pain, Diarrhea, Constipation Neurological: Weakness, Incoordination Focused Exam Time of Focused Exam: 07:30 Objective Exam Last Set of Vital Signs Vital Signs Date Time Temp Pulse Resp B/P (MAP) Pulse Ox O2 Delivery O2 Flow Rate FiO2 06/23/22 15:00 96 23 118/100 (106) 90 Nasal Cannula 2.00 06/23/22 12:00 36.5 06/22/22 08:34 28 Capillary Refill : Greater Than 3 Seconds I&O Intake and Output 06/23/22 00:00 Intake Total 3150 ml Output Total 1150 ml Balance 2000 ml Intake Oral 1200 ml IV Total 1950 ml Output Urine Total 1150 ml # Voids 1 # Bowel Movements 1 General: Alert, Oriented X3, No Acute Distress Lungs: Clear to Auscultation, Normal Air Movement Heart: No Murmurs, Other (Irregularly irregular rate) Abdomen: Normal Bowel Sounds, Soft, No Tenderness, No Masses Extremities: No Tenderness/Swelling Neuro: Normal Speech Results/Procedures Lab Laboratory Tests 06/22/22 20:41: Glucometer 164H 06/23/22 04:26: White Blood Count 10.2, Red Blood Count 2.73L, Hemoglobin 9.8L, Hematocrit 29L, Mean Corpuscular Volume 107H, Mean Corpuscular Hemoglobin 36H, Mean Corpuscular Hemoglobin Concent 33, Red Cell Distribution Width 12.5, Platelet Count 190, Mean Platelet Volume 9.4, Immature Granulocyte % (Auto) 1, Neutrophils (%) (Auto) 76H, Lymphocytes (%) (Auto) 11L, Monocytes (%) (Auto) 10, Eosinophils (%) (Auto) 3, Basophils (%) (Auto) 0, Neutrophils # (Auto) 7.7, Lymphocytes # (Auto) 1.1, Monocytes # (Auto) 1.1H, Eosinophils # (Auto) 0.3, Basophils # (Auto) 0.0, Immature Granulocyte # (Auto) 0.1, Sodium Level 132L, Potassium Level 4.0, Chloride Level 91L, Carbon Dioxide Level 34H, Anion Gap 7, Blood Urea Nitrogen 12, Creatinine 0.63, Estimat Glomerular Filtration Rate 102, BUN/Creatinine Ratio 19, Glucose Level 100, Calcium Level 8.5, Corrected Calcium 9.5, Total Bilirubin 0.4, Aspartate Amino Transf (AST/SGOT) 15, Alanine Aminotransferase (ALT/SGPT) 15, Alkaline Phosphatase 66, Total Protein 4.8L, Albumin 2.8L 06/23/22 05:28: Glucometer 114H 06/23/22 11:21: Glucometer 160H 06/23/22 16:08: Glucometer 168H Microbiology 06/19/22 MRSA Screen - Final, Complete MRSA not isolated 06/19/22 Urine Culture - Final, Complete NO GROWTH 06/19/22 Blood Culture - Preliminary, Resulted No growth Assessment/Plan Assessment/Plan (1) Acute on chronic respiratory failure with hypoxia and hypercapnia Status: Acute Assessment & Plan: 06/20: On bipap, ABG pH 7.6, improved CO2, will titrate sedation and see if patient can be taken off bipap, continue PPX antibiotics and IV steroids at this time 06/21: Doing well on NC, encouraged IS and out of bed, will order PT 06/22: Much improved 06/23: Stable on 2LPM, will need oxygen at d/c (2) Acute exacerbation of chronic obstructive pulmonary disease (COPD) Status: Acute (3) Atrial fibrillation Status: Acute Assessment & Plan: 06/20: Cardiology consulted, appreciate recommendations, patient rate controlled, Lovenox for PPX due to NPO status 06/22: Restart OAC 06/23: RVR ON, transferred back to ICU, rate controlled this AM on cardizem drip Qualifiers: Qualified Codes: I48.0 - Paroxysmal atrial fibrillation (4) Alcohol withdrawal Status: Acute Assessment & Plan: 06/20: Requiring precedex due to agitation, CIWS protocol, ativan PRN, Thiamine/FA given 06/21: given PO ativan over IV 06/22: Decreased need for ativan Qualifiers: Qualified Codes: F10.931 - Alcohol use, unspecified with withdrawal delirium (5) Hyponatremia Status: Acute Assessment & Plan: 06/20: Stable, fluid restriction 06/21: Improving (6) Coronary artery disease without angina pectoris Status: Chronic Qualifiers: Qualified Codes: I25.10 - Atherosclerotic heart disease of [place] coronary artery without angina pectoris (7) Macrocytic anemia Status: Chronic Assessment & Plan: 06/21: Continue thiamine and FA, no signs of acute bleeding at this time (8) Physical debility Status: Acute Assessment & Plan: 06/21: PT ordered, patient will likely need NH placement 06/22: Discussed SNF placement with patient and he reluctantly agreed, SW notified ANAIS HDZ MD Jun 23, 2022 16:17
[2022-06-23] MEDS: LORazepam 1 MG (ATIVAN) TAB PO PRN ×3 (17:00→21:00)
[2022-06-23] MEDS: dilTIAZem DRIP PRE-MIX 125 ML IV SCH (17:01)
[2022-06-24] MEDS: RT-ALBUTEROL/IPRATROPIUM 3 ML (DUONEB) VIAL INH SCH ×6 (02:29→22:04)
[2022-06-24] MEDS: CEFEPIME INJECTION 1,000 MG in NS (IVPB) 50 ML IV SCH (03:33)
[2022-06-24 05:12] LABS: BASOPHILS % (AUTO) 0 % (0-10); EOSINOPHILS # (AUTO) 0.3 10^3/uL (0.0-0.3); EOSINOPHILS % (AUTO) 4 % (0-10); HEMATOCRIT 28 % (40-54); HEMOGLOBIN 9.5 g/dL (13.3-17.7); LYMPHOCYTES # (AUTO) 1.1 10^3/uL (1.0-4.0); LYMPHOCYTES % (AUTO) 13 % (12-44); MEAN CORPUSCULAR HEMOGLOBIN 36 pg (25-34); MEAN CORPUSCULAR HGB CONC 34 g/dL (32-36); MEAN CORPUSCULAR VOLUME 105 fL (80-99); MEAN PLATELET VOLUME 9.5 fL (9.0-12.2); MONOCYTES # (AUTO) 1.1 10^3/uL (0.0-1.0); MONOCYTES % (AUTO) 14 % (0-12); NEUTROPHILS # (AUTO) 5.9 10^3/uL (1.8-7.8); NEUTROPHILS % (AUTO) 69 % (42-75); PLATELET COUNT 178 10^3/uL (130-400); WHITE BLOOD COUNT 8.4 10^3/uL (4.3-11.0)
[2022-06-24 05:38] LABS: ALBUMIN 2.9 GM/DL (3.2-4.5); BILIRUBIN,TOTAL 0.4 MG/DL (0.1-1.0); CALCIUM 8.5 MG/DL (8.5-10.1); CREATININE SERUM 0.58 MG/DL (0.60-1.30); POTASSIUM 4.1 MMOL/L (3.6-5.0); TOTAL PROTEIN 4.8 GM/DL (6.4-8.2)
[2022-06-24] MEDS: meTOprolol 5 MG/5 ML (LOPRESSOR) VIAL IV SCH (06:10)
[2022-06-24] MEDS: MULTIVIT W/MINERALS TAB (THERAGRAN M) PO SCH (06:23)
[2022-06-24] MEDS: predniSONE 20 MG TAB PO SCH (06:23)
[2022-06-24] MEDS: inSUlin ASPART (NovoLOG) 1 UNIT/0.01 ML (CHARGE PER UNIT) SC SCH ×4 (06:26→20:47)
[2022-06-24] MEDS: RT-BUDESONIDE NEBS 0.5 MG/2ML (PULMICORT) AMP INH SCH ×2 (06:59→20:24)
--- NOTE | 2022-06-24 07:10 | Physical Therapy Progress Note ---
Therapy Progress Note Due to ICU transfer, PT will require new orders to resume therapy. KALLIE TOMLINSON PT Jun 24, 2022 07:10
[2022-06-24] MEDS: SENNOSIDES 8.6 MG (SENOKOT) TAB PO SCH ×2 (08:14→20:49)
[2022-06-24] MEDS: FOLIC ACID 1 MG TAB PO SCH (08:14)
[2022-06-24] MEDS: DOCUSATE SODIUM 100 MG (COLACE) CAP PO SCH ×2 (08:14→20:49)
[2022-06-24] MEDS: ACETAMINOPHEN 325 MG TABLET PO PRN ×2 (08:20→20:54)
[2022-06-24] MEDS: LORazepam 1 MG (ATIVAN) TAB PO PRN ×2 (08:20→12:53)
--- NOTE | 2022-06-24 10:23 | Cardiology Progress Note ---
Subjective Date Seen by Provider: Jun 24, 2022 Time Seen by Provider: 10:19 Subjective/Events-last exam Patient was seen at bedside, laying down comfortably, lethargic. No new complaint. Review of Systems General: No Chills, No Night Sweats; Fatigue, Malaise; No Appetite, No Other HEENT: No Head Aches, No Visual Changes, No Eye Pain, No Ear Pain, No Dysphasia, No Sinus Congestion, No Post Nasal Drip, No Sore Throat, No Other Pulmonary: No Dyspnea, No Cough, No Pleuritic Chest Pain, No Other Cardiovascular: No: Chest Pain, Palpitations, Orthopnea, Paroxysmal Noc. Dyspnea, Edema, Lt Headedness, Other Focused Exam Time of Focused Exam: 07:30 Objective-Cardiology Exam Last Set of Vital Signs Vital Signs 06/22/22 06/24/22 06/24/22 08:34 08:00 09:00 Pulse 98 Resp 27 B/P (MAP) 90/71 (77) Pulse Ox 90 O2 Delivery Nasal Cannula O2 Flow Rate 2.00 FiO2 28 I&O Intake and Output 06/24/22 00:00 Intake Total 1475 ml Output Total 1885 ml Balance -410 ml Intake Oral 1150 ml IV Total 325 ml Output Urine Total 1885 ml General: Alert, Oriented X3, Cooperative, No Acute Distress HEENT: Atraumatic, PERRLA Neck: Supple, No JVD Lungs: Clear to Auscultation, Normal Air Movement Heart: Normal S1, Normal S2, No Murmurs, Other (Irregularly irregular rate) Abdomen: Normal Bowel Sounds, Soft, No Tenderness, No Masses Extremities: No Clubbing, No Cyanosis, No Tenderness/Swelling Skin: No Rashes Neuro: Normal Speech Psych/Mental Status: Mental Status NL, Mood NL Results Lab Laboratory Tests 06/24/22 04:33 A/P-Cardiology Admission Diagnosis Acute respiratory failure Alcohol withdrawal Coronary artery disease Paroxysmal atrial fibrillation Assessment/Plan Paroxysmal atrial fibrillation with rapid ventricular response History of paroxysmal atrial fibrillation, has been maintained on metoprolol and apixaban as an outpatient Still borderline tachycardic Hypotensive Unable to tolerate aggressive Cardizem I will switch him to oral Cardizem and Eliquis to reduce the risk of stroke Planning to do LESTER and electrical cardioversion in the morning. Status post acute respiratory failure, acute exacerbation of COPD Better at this time. Alcohol withdrawal, possible DT, Managed by primary care team Coronary artery disease, History of coronary stent in 2001, history of CABG, cardiac enzymes are normal, EKG showing sinus rhythm 2D echo done in September 2021 with ejection fraction 55 to 60%. Hypertension, controlled, monitor blood pressure Hyperlipidemia, monitor lipids Hyponatremia, probably secondary to alcoholism, monitor sodium level Acute on chronic metabolic alkalosis, respiratory acidosis. TOM BULL MD Jun 24, 2022 10:23
[2022-06-24] MEDS: APIXABAN 5 MG (ELIQUIS) TABLET PO SCH ×2 (11:21→20:49)
--- NOTE | 2022-06-24 11:22 | Progress Note ---
Subjective Subjective/Events-last exam Doing well today. Seems motivated to get up with PT but has not yet. Tolerating PO diet. Review of Systems General: Fatigue Pulmonary: No Dyspnea; Cough Cardiovascular: Edema; No: Chest Pain, Palpitations Neurological: Weakness, Incoordination Focused Exam Time of Focused Exam: 07:30 Objective Exam Last Set of Vital Signs Vital Signs Date Time Temp Pulse Resp B/P (MAP) Pulse Ox O2 Delivery O2 Flow Rate FiO2 06/24/22 10:45 96 Nasal Cannula 2.50 06/24/22 09:00 98 27 90/71 (77) 06/24/22 08:00 36.5 06/22/22 08:34 28 Capillary Refill : Greater Than 3 Seconds I&O Intake and Output 06/24/22 00:00 Intake Total 1475 ml Output Total 1885 ml Balance -410 ml Intake Oral 1150 ml IV Total 325 ml Output Urine Total 1885 ml General: Alert, Oriented X3, No Acute Distress Lungs: Clear to Auscultation, Normal Air Movement Heart: Regular Rate, No Murmurs Extremities: Other (1+ pitting edema bilaterally) Results/Procedures Lab Laboratory Tests 06/23/22 11:21: Glucometer 160H 06/23/22 16:08: Glucometer 168H 06/23/22 20:00: Glucometer 151H 06/24/22 04:33: White Blood Count 8.4, Red Blood Count 2.67L, Hemoglobin 9.5L, Hematocrit 28L, Mean Corpuscular Volume 105H, Mean Corpuscular Hemoglobin 36H, Mean Corpuscular Hemoglobin Concent 34, Red Cell Distribution Width 12.2, Platelet Count 178, Mean Platelet Volume 9.5, Immature Granulocyte % (Auto) 1, Neutrophils (%) (Auto) 69, Lymphocytes (%) (Auto) 13, Monocytes (%) (Auto) 14H, Eosinophils (%) (Auto) 4, Basophils (%) (Auto) 0, Neutrophils # (Auto) 5.9, Lymphocytes # (Auto) 1.1, Monocytes # (Auto) 1.1H, Eosinophils # (Auto) 0.3, Basophils # (Auto) 0.0, Immature Granulocyte # (Auto) 0.1, Sodium Level 130L, Potassium Level 4.1, Chloride Level 91L, Carbon Dioxide Level 32, Anion Gap 7, Blood Urea Nitrogen 9, Creatinine 0.58L, Estimat Glomerular Filtration Rate 104, BUN/Creatinine Ratio 16, Glucose Level 104, Calcium Level 8.5, Corrected Calcium 9.4, Total Bilirubin 0.4, Aspartate Amino Transf (AST/SGOT) 12, Alanine Aminotransferase (ALT/SGPT) 14, Alkaline Phosphatase 62, Total Protein 4.8L, Albumin 2.9L 06/24/22 06:06: Glucometer 110 06/24/22 11:06: Glucometer 189H Microbiology 06/19/22 MRSA Screen - Final, Complete MRSA not isolated 06/19/22 Urine Culture - Final, Complete NO GROWTH 06/19/22 Blood Culture - Preliminary, Resulted No growth Assessment/Plan Assessment/Plan (1) Acute on chronic respiratory failure with hypoxia and hypercapnia Status: Acute Assessment & Plan: 06/20: On bipap, ABG pH 7.6, improved CO2, will titrate sedation and see if patient can be taken off bipap, continue PPX antibiotics and IV steroids at this time 06/21: Doing well on NC, encouraged IS and out of bed, will order PT 06/22: Much improved 06/23: Stable on 2LPM, will need oxygen at d/c (2) Acute exacerbation of chronic obstructive pulmonary disease (COPD) Status: Acute (3) Atrial fibrillation Status: Acute Assessment & Plan: 06/20: Cardiology consulted, appreciate recommendations, patient rate controlled, Lovenox for PPX due to NPO status 06/22: Restart OAC 06/23: RVR ON, transferred back to ICU, rate controlled this AM on cardizem drip 06/24: Spoke with Dr York, will adjust rate control meds, hopeful transfer out of ICU later today Qualifiers: Qualified Codes: I48.0 - Paroxysmal atrial fibrillation (4) Alcohol withdrawal Status: Acute Assessment & Plan: 06/20: Requiring precedex due to agitation, CIWS protocol, ativan PRN, Thiamine/FA given 06/21: given PO ativan over IV 06/22: Decreased need for ativan Qualifiers: Qualified Codes: F10.931 - Alcohol use, unspecified with withdrawal delirium (5) Hyponatremia Status: Acute Assessment & Plan: 06/20: Stable, fluid restriction 06/21: Improving (6) Coronary artery disease without angina pectoris Status: Chronic Qualifiers: Qualified Codes: I25.10 - Atherosclerotic heart disease of [place] coronary artery without angina pectoris (7) Macrocytic anemia Status: Chronic Assessment & Plan: 06/21: Continue thiamine and FA, no signs of acute bleeding at this time 06/24: Normal iron panel (8) Physical debility Status: Acute Assessment & Plan: 06/21: PT ordered, patient will likely need NH placement 06/22: Discussed SNF placement with patient and he reluctantly agreed, SW notified 06/24: SNF at discharge, states patient is unable to return home at this time ANAIS HDZ MD Jun 24, 2022 11:22
--- NOTE | 2022-06-24 13:46 | Tele-ICU Progress Note ---
Subjective Date Seen by a Provider: Jun 24, 2022 Subjective/Events-last exam (Tele-ICU Physician, Progress Note) Service provided via interactive audio and video telecommunications E-CARE system to a patient admitted to ICU bed in [facility]. Available chart/ vitals / labs / Images reviewed Video assessment done using teleICU camera, rest of exam as per RN Discussed with RN HPI: 71 y/o M with PMHx of COPD, alcohol abuse, coronary artery bypass surgery who presented to ED tremors and confusion. He was brought to the emergency room and found to have hypercarbic respiratory failure with COPD exacerbation, hyponatremia, as well as a atrial fibrillation with rapid ventricular rate. He is initially treated with BiPAP ventilation, steroids and bronchodilators as well as IV antibiotics. His hypercapnia has resolved and his mental status is now improving. No major events overnight. Given persistent Afib with RVR cardiology planning for LESTER + cardioversion tomorrow. Review of Systems General: No Chills, No Night Sweats, No Fatigue, No Malaise, No Appetite, No Other HEENT: No Head Aches, No Visual Changes, No Eye Pain, No Ear Pain, No Dysphasia, No Sinus Congestion, No Post Nasal Drip, No Sore Throat, No Other Pulmonary: No Dyspnea, No Cough, No Pleuritic Chest Pain, No Other Gastrointestinal: No: Nausea, Vomiting, Abdominal Pain, Diarrhea, Constipation, Melena, Hematochezia, Other Genitourinary: No Dysuria, No Frequency, No Incontinence, No Hematuria, No Retention, No Other Musculoskeletal: No: other, neck pain, shoulder pain, arm pain, back pain, hand pain, leg pain, foot pain Sepsis Event Evaluation Height, Weight, BMI Height: 5'11.00" Weight: 176lbs. 1.6oz. 79.144698uy; 21.20 BMI Method: Focused Exam Time of Focused Exam: 07:30 Exam Exam Patient acknowledged, consented, and participated in this virtual visit which was conducted using real time audio/video Vital Signs Date Time Temp Pulse Resp B/P (MAP) Pulse Ox O2 Delivery O2 Flow Rate FiO2 06/24/22 13:00 108 20 85/67 (73) 100 Nasal Cannula 2.00 06/24/22 12:42 116 06/24/22 12:00 106 12 112/85 (94) 100 Nasal Cannula 2.00 06/24/22 11:23 36.7 06/24/22 11:00 88 23 108/71 (83) 100 Nasal Cannula 2.00 06/24/22 10:45 96 Nasal Cannula 2.50 06/24/22 10:00 91 22 116/95 (102) 98 Nasal Cannula 2.00 06/24/22 09:00 98 27 90/71 (77) Nasal Cannula 2.00 06/24/22 08:00 36.5 06/24/22 08:00 Nasal Cannula 2.00 06/24/22 08:00 78 20 94/69 (77) 90 Nasal Cannula 2.00 06/24/22 07:00 91 06/24/22 07:00 70 21 114/68 (83) 96 Nasal Cannula 2.00 06/24/22 06:59 97 Nasal Cannula 2.00 06/24/22 06:03 94 22 118/84 (95) 97 Nasal Cannula 2.00 06/24/22 05:00 100 22 100/73 (82) 94 06/24/22 04:05 Nasal Cannula 2.00 06/24/22 04:00 36.8 112 24 114/73 (87) 98 Nasal Cannula 2.00 06/24/22 03:00 91 26 96/74 (81) 95 06/24/22 02:33 97 Nasal Cannula 2.00 06/24/22 02:00 89 24 120/88 (99) 99 06/24/22 01:00 103 06/24/22 01:00 87 18 112/72 (85) 94 Nasal Cannula 2.00 06/24/22 00:05 Nasal Cannula 2.00 06/24/22 00:00 36.3 86 26 108/71 (83) 99 06/23/22 23:00 75 22 111/71 (84) 98 Nasal Cannula 2.00 06/23/22 22:00 76 20 107/76 (86) 100 06/23/22 21:31 99 Nasal Cannula 2.00 06/23/22 21:00 92 20 116/77 (90) 91 06/23/22 20:00 80 28 83/70 (74) 97 06/23/22 19:30 36.8 06/23/22 19:15 Nasal Cannula 2.00 06/23/22 19:00 88 24 106/70 (82) 98 Nasal Cannula 2.00 06/23/22 19:00 92 06/23/22 18:50 99 Nasal Cannula 2.00 06/23/22 18:00 98 13 126/88 (101) 98 Nasal Cannula 2.00 06/23/22 17:01 95 110/72 06/23/22 17:00 128 20 110/72 (85) 99 Nasal Cannula 2.00 06/23/22 16:00 100 24 109/64 (79) 97 Nasal Cannula 2.00 06/23/22 16:00 Nasal Cannula 2.00 06/23/22 16:00 36.4 06/23/22 15:00 96 23 118/100 (106) 90 Nasal Cannula 2.00 06/23/22 14:32 96 Nasal Cannula 2.00 06/23/22 14:00 89 23 114/77 (89) 98 Nasal Cannula 2.00 I & O 06/24/22 07:00 Intake Total 1275 ml Output Total 1860 ml Balance -585 ml Height & Weight Height: 5'11.00" Weight: 176lbs. 1.6oz. 79.800800pb; 21.20 BMI Method: General Appearance: WD/WN, Chronically ill, Other HEENT: PERRL/EOMI, Other Neck: Non Tender Respiratory: Other Cardiovascular: Irregularly Irregular Capillary Refill: Greater Than 3 Seconds Gastrointestinal: normal bowel sounds, non tender Extremity: No Pedal Edema, Slow Capillary Refill Neurologic/Psychiatric: Alert, No Motor/Sensory Deficits, detail drafter II-XII Norm as Tested Skin: Normal Color, Warm/Dry Results Lab Laboratory Tests 06/23/22 04:26 06/24/22 04:33 Assessment/Plan Assessment/Plan Neuro: Baseline NTD CV: Afib with RVR, cardioversion tomorrow. Cardiology following Resp: Acute and chronic hypercarbic respiratory failure due to COPD exacerbation: Improved. Cont BIPAP at night. Wean oxygen as tolerated Renal: Hyponatremia: Stable Cont IVF ID: Bactermia: Awaiting cultures. Cont antibiotics FEN: General, npo after midnight. Plans in collaboration with bedside consultants and IM MDs. Discussed with RN to reach out if any questions or concerns. Case and care daily discussed on multidisciplinary rounds ( RN, PharmD, Refrigeration Installer, Respiratory Therapy, cash office worker ) I am remotely monitoring this patient from another state. I am unable to do the bedside exam, and history/physical and pertinent information is taken from other notes in the computer and bedside staff. A total of 31 minutes of critical care time was devoted to this patient today, required to treat and/or prevent further deterioration of critical care condition (as above). SANAM BLACKWOOD MD Jun 24, 2022 13:46
[2022-06-24] MEDS: LORazepam INJ 2 MG/ML (ATIVAN) VIAL IV PRN (17:12)
[2022-06-24] MEDS ORDERED: meTOprolol 5 MG/5 ML (LOPRESSOR) VIAL ONE (17:41)
[2022-06-24] MEDS ORDERED: meTOprolol 5 MG/5 ML (LOPRESSOR) VIAL IV ONE (17:45)
[2022-06-25] MEDS: RT-ALBUTEROL/IPRATROPIUM 3 ML (DUONEB) VIAL INH SCH ×6 (01:56→22:32)
[2022-06-25] MEDS: inSUlin ASPART (NovoLOG) 1 UNIT/0.01 ML (CHARGE PER UNIT) SC SCH ×4 (05:33→21:03)
[2022-06-25 05:42] LABS: BASOPHILS % (AUTO) 0 % (0-10); EOSINOPHILS # (AUTO) 0.2 10^3/uL (0.0-0.3); EOSINOPHILS % (AUTO) 2 % (0-10); HEMATOCRIT 29 % (40-54); HEMOGLOBIN 9.5 g/dL (13.3-17.7); LYMPHOCYTES # (AUTO) 0.9 10^3/uL (1.0-4.0); LYMPHOCYTES % (AUTO) 9 % (12-44); MEAN CORPUSCULAR HEMOGLOBIN 35 pg (25-34); MEAN CORPUSCULAR HGB CONC 33 g/dL (32-36); MEAN CORPUSCULAR VOLUME 106 fL (80-99); MEAN PLATELET VOLUME 9.8 fL (9.0-12.2); MONOCYTES # (AUTO) 1.4 10^3/uL (0.0-1.0); MONOCYTES % (AUTO) 13 % (0-12); NEUTROPHILS # (AUTO) 7.9 10^3/uL (1.8-7.8); NEUTROPHILS % (AUTO) 76 % (42-75); PLATELET COUNT 198 10^3/uL (130-400); WHITE BLOOD COUNT 10.5 10^3/uL (4.3-11.0)
[2022-06-25 06:06] LABS: ALBUMIN 2.9 GM/DL (3.2-4.5); BILIRUBIN,TOTAL 0.3 MG/DL (0.1-1.0); CALCIUM 8.5 MG/DL (8.5-10.1); CREATININE SERUM 0.58 MG/DL (0.60-1.30); POTASSIUM 4.4 MMOL/L (3.6-5.0); TOTAL PROTEIN 4.9 GM/DL (6.4-8.2)
[2022-06-25] MEDS: RT-BUDESONIDE NEBS 0.5 MG/2ML (PULMICORT) AMP INH SCH ×2 (06:55→22:33)
[2022-06-25] MEDS ORDERED: NS IV 500 ML 500 ML ONE (07:28)
[2022-06-25] MEDS ORDERED: LIDOCAINE 2% VISCOUS 15 ML UDC ONE (07:29)
[2022-06-25] MEDS ORDERED: NS IV 500 ML 500 ML IV ONE (07:45)
[2022-06-25] MEDS ORDERED: LIDOCAINE 2% VISCOUS 15 ML UDC PO ONE (07:45)
[2022-06-25 08:15] VITALS: BP 126/84
--- NOTE | 2022-06-25 08:38 | Cardiology Progress Note ---
Subjective Date Seen by Provider: Jun 25, 2022 Time Seen by Provider: 08:37 Subjective/Events-last exam Patient is laying down in bed. No new complain. Still tachycardic Focused Exam Time of Focused Exam: 07:30 Objective-Cardiology Exam Last Set of Vital Signs Vital Signs 06/25/22 06/25/22 06/25/22 07:00 07:05 08:15 Temp 36.5 Pulse 103 Resp 20 B/P (MAP) 126/84 (98) Pulse Ox 98 O2 Delivery Nasal Cannula O2 Flow Rate 2.00 FiO2 28 I&O Intake and Output 06/25/22 00:00 Intake Total 800 ml Output Total 1740 ml Balance -940 ml Intake Oral 750 ml IV Total 50 ml Output Urine Total 1740 ml General: Alert, Oriented X3, No Acute Distress HEENT: Atraumatic, PERRLA Neck: Supple, No JVD Lungs: Clear to Auscultation, Normal Air Movement Heart: Normal S1, Normal S2, No Murmurs, Other (Atrial fibrillation) Abdomen: Normal Bowel Sounds, Soft, No Tenderness, No Masses Extremities: Other (1+ pitting edema bilaterally) Skin: No Rashes Neuro: Normal Speech Psych/Mental Status: Mental Status NL, Mood NL Results Lab Laboratory Tests 06/25/22 03:48 A/P-Cardiology Admission Diagnosis Acute respiratory failure Alcohol withdrawal Coronary artery disease Paroxysmal atrial fibrillation Assessment/Plan Paroxysmal atrial fibrillation with rapid ventricular response History of paroxysmal atrial fibrillation, has been maintained on metoprolol and apixaban as an outpatient Still borderline tachycardic Hypotensive Unable to tolerate aggressive Cardizem Using oral Cardizem and IV Lopressor as needed I am planning to proceed with LESTER and electrical cardioversion today. Status post acute respiratory failure, acute exacerbation of COPD Better at this time. Alcohol withdrawal, possible DT, Managed by primary care team Coronary artery disease, History of coronary stent in 2001, history of CABG, cardiac enzymes are normal, EKG showing sinus rhythm 2D echo done in September 2021 with ejection fraction 55 to 60%. Hypertension, controlled, monitor blood pressure Hyperlipidemia, monitor lipids Hyponatremia, probably secondary to alcoholism, monitor sodium level Acute on chronic metabolic alkalosis, respiratory acidosis. TOM BULL MD Jun 25, 2022 08:38
--- NOTE | 2022-06-25 08:38 | Cardiac Procedure Note-CS/ASA ---
Pre-Procedure Note Pre-Op Procedure Note Date of Available H&P: Jun 25, 2022 Date H&P Reviewed: Jun 25, 2022 Time H&P Reviewed: 08:38 History & Physical: H&P Reviewed, Patient Examed, No changes noted Pre-Operative Diagnosis: Atrial fibrillation Moderate Sedation PreProcedure Time 08:38 ASA Score 3 Airway Lungs Heart ASA score ASA 1: a normal healthy patient ASA 2: a patient with a mild systemic disease (mid diabetes, controlled hypertension, obesity ASA 3: a patient with a severe systemic disease that limits activity (angina, COPD, prior Myocardial infarction) ASA 4: a patient with an incapacitating disease that is a constant threat to life (CHF, renal failure) ASA 5: a moribund patient not expected to survive 24 hrs. (ruptured aneurysm) ASA 6: a declared brain- patient whose organs are being harvested. For emergent operations, add the letter E after the classification Mallampati Classification Grade 3 Sedation Plan Analgesia, Amnesia, Plan communicated to team members, Discussed options with patient/fam, Discussed risks with patient/fam The patient is an appropriate candidate to undergo the planned procedure, sedation, and anesthesia. The patient immediately re-assessed prior to indication. TOM BULL MD Jun 25, 2022 08:38
[2022-06-25] MEDS ORDERED: proPOfol 200 MG/20 ML (DIPRIVAN) VIAL IV ONE (08:55)
--- NOTE | 2022-06-25 09:08 | Cardioversion ---
Cardioversion PROCEDURE PHYSICIAN: Tom York DATE OF PROCEDURE: 06/25/22 DIRECT EXTERNAL ELECTRICAL CARDIOVERSION: Indications: Atrial Fibrillation with rapid ventricular rate Preoperative diagnoses: Atrial Fibrillation with rapid ventricular rate Postoperative diagnosis: Sinus rhythm, Successful Electrical Cardioversion History: 71-year-old gentleman with paroxysmal atrial fibrillation and rapid ventricular response, hypotensive. LESTER was done showing no clot or thrombus Electrical cardioversion was advised Anesthesia: By Anesthesia services Complications: None Specimen: None Contrast: 0 Flouroscopy: none Procedure Details: The patient was brought the rn lab after informed consent was taken, all the risks and complications were explained including the risk of stroke. Electrical cardioversion was carried out with anesthesia support with propofol. 120 J then 200 joules of synchronized shock was delivered through external patches which promptly restored sinus rhythm. The patient tolerated the procedure well. Conclusions: Successful electrical cardioversion terminating atrial fibrillation Final Diagnosis: Atrial fibrillation Hypotension TOM YORK MD Jun 25, 2022 09:08
--- NOTE | 2022-06-25 09:14 | Physical Therapy Progress Note ---
Therapy Progress Note Due to ICU transfer, PT will require new orders to resume therapy. EUNICE TEE PT Jun 25, 2022 09:14
[2022-06-25] MEDS ORDERED: proPOfol 500 MG/50 ML (DIPRIVAN) VIAL IV ONE (09:15)
[2022-06-25] MEDS ORDERED: AMIODARONE INJECTION 450 MG in NORMAL SALINE 250 ML IV SCH (09:15)
[2022-06-25] MEDS ORDERED: AMIODARONE FOR BOLUS 150 MG in NS (IVPB) 100 ML IV ONE ×4 (09:15)
--- NOTE | 2022-06-25 09:22 | Anesthesia-General Post-Op ---
MAC Patient Condition Mental Status/LOC: Same as Preop Cardiovascular: Satisfactory Nausea/Vomiting: Absent Respiratory: Satisfactory Pain: Controlled Complications: Absent Post Op Complications Complications None Follow Up Care/Instructions Patient Instructions None needed. Anesthesiology Discharge Order Discharge Order Patient is doing well, no complaints, stable vital signs, no apparent adverse anesthesia problems. No complications reported per nursing. MICHELINE ALICEA CRNA Jun 25, 2022 09:22
--- NOTE | 2022-06-25 09:28 | Tele-ICU Progress Note ---
Progress Note video rounds completed PI: 71 y/o M with PMHx of COPD, alcohol abuse, coronary artery bypass surgery who presented to ED tremors and confusion. He was brought to the emergency room and found to have hypercarbic respiratory failure with COPD exacerbation, hyponatremia, as well as a atrial fibrillation with rapid ventricular rate. He is initially treated with BiPAP ventilation, steroids and bronchodilators as well as IV antibiotics. His hypercapnia has resolved and his mental status is now improving. afib is corrected wth cardioversion Cardiology following IMP: ETOH abuse A fib: resolved Hyperarbic resp failure: improved PLAN: continue with current therapeutic plans Time spent in evaluation: 20 minutes Focused Exam Height, Weight, BMI Height: 5'11.00" Weight: 176lbs. 1.6oz. [id number]; 21.20 BMI Method: Time of Focused Exam: 07:30 Labs Laboratory Tests 06/25/22 03:48 Results Results/Procedures Labs Laboratory Tests 06/24/22 04:33 06/25/22 03:48 Patient resulted labs reviewed. Results Labs Labs Laboratory Tests 06/24/22 11:06: Glucometer 189H 06/24/22 17:07: Glucometer 206H 06/24/22 20:41: Glucometer 145H 06/25/22 03:48: White Blood Count 10.5, Red Blood Count 2.68L, Hemoglobin 9.5L, Hematocrit 29L, Mean Corpuscular Volume 106H, Mean Corpuscular Hemoglobin 35H, Mean Corpuscular Hemoglobin Concent 33, Red Cell Distribution Width 12.5, Platelet Count 198, Mean Platelet Volume 9.8, Immature Granulocyte % (Auto) 1, Neutrophils (%) (Auto) 76H, Lymphocytes (%) (Auto) 9L, Monocytes (%) (Auto) 13H, Eosinophils (%) (Auto) 2, Basophils (%) (Auto) 0, Neutrophils # (Auto) 7.9H, Lymphocytes # (Auto) 0.9L, Monocytes # (Auto) 1.4H, Eosinophils # (Auto) 0.2, Basophils # (A uto) 0.0, Immature Granulocyte # (Auto) 0.1, Sodium Level 133L, Potassium Level 4.4, Chloride Level 92L, Carbon Dioxide Level 34H, Anion Gap 7, Blood Urea Nitrogen 11, Creatinine 0.58L, Estimat Glomerular Filtration Rate 104, BUN/Creatinine Ratio 19, Glucose Level 108H, Calcium Level 8.5, Corrected Calcium 9.4, Total Bilirubin 0.3, Aspartate Amino Transf (AST/SGOT) 11, Alanine Aminotransferase (ALT/SGPT) 14, Alkaline Phosphatase 69, Total Protein 4.9L, Albumin 2.9L 06/25/22 05:32: Glucometer 99 Microbiology 06/19/22 MRSA Screen - Final, Complete MRSA not isolated 06/19/22 Urine Culture - Final, Complete NO GROWTH 06/19/22 Blood Culture - Final, Complete No growth NATACHA ZAVALA MD Jun 25, 2022 09:28
[2022-06-25] MEDS: AMIODARONE INJECTION 450 MG in NORMAL SALINE 250 ML IV SCH ×2 (09:33→17:09)
[2022-06-25] MEDS: FOLIC ACID 1 MG TAB PO SCH (09:39)
[2022-06-25] MEDS: APIXABAN 5 MG (ELIQUIS) TABLET PO SCH ×2 (09:39→20:46)
[2022-06-25] MEDS: SENNOSIDES 8.6 MG (SENOKOT) TAB PO SCH ×2 (09:39→20:46)
[2022-06-25] MEDS: DOCUSATE SODIUM 100 MG (COLACE) CAP PO SCH ×2 (09:39→20:46)
[2022-06-25] MEDS: MULTIVIT W/MINERALS TAB (THERAGRAN M) PO SCH (09:42)
[2022-06-25] MEDS: predniSONE 20 MG TAB PO SCH (09:42)
--- NOTE | 2022-06-25 09:42 | Progress Note - Hospitalist ---
Subjective HPI/CC On Admission Date Seen by Provider: Jun 25, 2022 Time Seen by Provider: 08:00 CC: Severe alcohol withdrawal with hyponatremia and CO2 narcosis HPI: This is a 71yoWM clinic patient of [facility] who has a h/o alcoholism and respiratory failure who presented to the ER via EMS due to found down at home. His alcohol level was 0 and he is a heavy user of alcohol. Patient was noted to have CO2 narcosis requiring biPAP and multipl doctors witnessed the conversation of DNR/DNI per . ABG repeat appears worse and patient has a very poor prognosis. Treating for AECOPD and PNA. Subjective/Events-last exam Patient denies shortness of breath or chest pain at rest he does note he still feels quite fatigued and he has not yet been out of bed. Tacks were at bedside getting him prepared for LESTER with cardioversion to follow provided there is no evidence for intracardiac thrombus formation. He denies any other complaints. Focused Exam Time of Focused Exam: 07:30 Objective Exam Vital Signs Vital Signs Date Time Temp Pulse Resp B/P (MAP) Pulse Ox O2 Delivery O2 Flow Rate FiO2 06/25/22 08:15 36.5 103 98 28 06/25/22 07:05 Nasal Cannula 2.00 06/25/22 07:00 20 126/84 (98) Capillary Refill : Greater Than 3 Seconds General Appearance: No Apparent Distress, Chronically ill Respiratory: No Accessory Muscle Use, No Respiratory Distress, Other (Diminished breath sounds posteriorly without wheezes rales or rhonchi chest clear anteriorly) Cardiovascular: No Gallop, No Murmur, Irregularly Irregular ( rate 100-120 at rest atrial fibrillation on monitor) Gastrointestinal: Normal Bowel Sounds, No Organomegaly, No Pulsatile Mass, Non Tender, Soft Extremity: No Pedal Edema Results/Procedures Lab Laboratory Tests 06/25/22 03:48 Patient resulted labs reviewed. Assessment/Plan Assessment and Plan Assess & Plan/Chief Complaint (1) Acute on chronic respiratory failure with hypoxia and hypercapnia Status: Acute Assessment & Plan: 06/20: On bipap, ABG pH 7.6, improved CO2, will titrate sedation and see if patient can be taken off bipap, continue PPX antibiotics and IV steroids at this time 06/21: Doing well on NC, encouraged IS and out of bed, will order PT 06/22: Much improved 06/23: Stable on 2LPM, will need oxygen at d/c 06/25: Respiratory failure improving despite medication rate control still suboptimal being scheduled for LESTER this morning with possible cardioversion to follow defer to cardiology. Following this when sedation abates advise getting up to sit in chair if possible. (2) Acute exacerbation of chronic obstructive pulmonary disease (COPD) Status: Acute (3) Atrial fibrillation Status: Acute Assessment & Plan: 06/20: Cardiology consulted, appreciate recommendations, patient rate controlled, Lovenox for PPX due to NPO status 06/22: Restart OAC 06/23: RVR ON, transferred back to ICU, rate controlled this AM on cardizem drip 06/24: Spoke with Dr York, will adjust rate control meds, hopeful transfer out of ICU later today Qualifiers: Qualified Codes: I48.0 - Paroxysmal atrial fibrillation (4) Alcohol withdrawal Status: Acute Assessment & Plan: 06/20: Requiring precedex due to agitation, CIWS protocol, ativan PRN, Thiamine/FA given 06/21: given PO ativan over IV 06/22: Decreased need for ativan Qualifiers: Qualified Codes: F10.931 - Alcohol use, unspecified with withdrawal delirium (5) Hyponatremia Status: Acute Assessment & Plan: 06/20: Stable, fluid restriction 06/21: Improving (6) Coronary artery disease without angina pectoris Status: Chronic Qualifiers: Qualified Codes: I25.10 - Atherosclerotic heart disease of [place] coronary artery without angina pectoris (7) Macrocytic anemia Status: Chronic Assessment & Plan: 06/21: Continue thiamine and FA, no signs of acute bleeding at this time 06/24: Normal iron panel (8) Physical debility Status: Acute Assessment & Plan: 06/21: PT ordered, patient will likely need NH placement 06/22: Discussed SNF placement with patient and he reluctantly agreed, SW notified 06/24: SNF at discharge, states patient is unable to return home at this time Critical Care Critically Ill Patient ALEXANDRA HUI MD Jun 25, 2022 09:42
[2022-06-25] MEDS: RT-ALBUTEROL/IPRATROPIUM 3 ML (DUONEB) VIAL INH PRN (12:57)
[2022-06-25] MEDS: LORazepam 1 MG (ATIVAN) TAB PO PRN (13:51)
[2022-06-25] MEDS: LORazepam INJ 2 MG/ML (ATIVAN) VIAL IV PRN ×3 (15:37→21:03)
[2022-06-26] MEDS: RT-ALBUTEROL/IPRATROPIUM 3 ML (DUONEB) VIAL INH SCH ×6 (02:09→22:13)
[2022-06-26] MEDS: LORazepam INJ 2 MG/ML (ATIVAN) VIAL IV PRN ×6 (03:31→11:16)
[2022-06-26 04:58] LABS: BASOPHILS % (AUTO) 0 % (0-10); EOSINOPHILS # (AUTO) 0.2 10^3/uL (0.0-0.3); EOSINOPHILS % (AUTO) 2 % (0-10); HEMATOCRIT 29 % (40-54); HEMOGLOBIN 9.6 g/dL (13.3-17.7); LYMPHOCYTES # (AUTO) 0.7 10^3/uL (1.0-4.0); LYMPHOCYTES % (AUTO) 8 % (12-44); MEAN CORPUSCULAR HEMOGLOBIN 36 pg (25-34); MEAN CORPUSCULAR HGB CONC 33 g/dL (32-36); MEAN CORPUSCULAR VOLUME 108 fL (80-99); MEAN PLATELET VOLUME 9.8 fL (9.0-12.2); MONOCYTES # (AUTO) 1.3 10^3/uL (0.0-1.0); MONOCYTES % (AUTO) 15 % (0-12); NEUTROPHILS # (AUTO) 6.5 10^3/uL (1.8-7.8); NEUTROPHILS % (AUTO) 74 % (42-75); PLATELET COUNT 202 10^3/uL (130-400); WHITE BLOOD COUNT 8.8 10^3/uL (4.3-11.0)
[2022-06-26 05:24] LABS: POTASSIUM 4.1 MMOL/L (3.6-5.0)
[2022-06-26 05:25] LABS: CALCIUM 8.5 MG/DL (8.5-10.1)
[2022-06-26 05:28] LABS: BILIRUBIN,TOTAL 0.3 MG/DL (0.1-1.0)
[2022-06-26 05:29] LABS: PHOSPHORUS 4.3 MG/DL (2.3-4.7)
[2022-06-26 05:30] LABS: CREATININE SERUM 0.59 MG/DL (0.60-1.30)
[2022-06-26 05:32] LABS: MAGNESIUM 2.2 MG/DL (1.6-2.4)
[2022-06-26] MEDS: inSUlin ASPART (NovoLOG) 1 UNIT/0.01 ML (CHARGE PER UNIT) SC SCH ×4 (05:37→20:07)
[2022-06-26] MEDS ORDERED: NS IV 500 ML 500 ML ONE (07:39)
[2022-06-26 08:06] VITALS: BP 182/103
[2022-06-26] MEDS: RT-BUDESONIDE NEBS 0.5 MG/2ML (PULMICORT) AMP INH SCH ×2 (08:19→22:13)
[2022-06-26] MEDS ORDERED: FUROSEMIDE 40 MG/4 ML INJ (LASIX) IVP ONE (08:30)
[2022-06-26] MEDS ORDERED: FUROSEMIDE 40 MG/4 ML INJ (LASIX) ONE (08:31)
[2022-06-26] MEDS ORDERED: proPOfol 200 MG/20 ML (DIPRIVAN) VIAL IV ONE (08:31)
--- NOTE | 2022-06-26 08:32 | Cardiology Progress Note ---
Subjective Date Seen by Provider: Jun 26, 2022 Time Seen by Provider: 08:30 Subjective/Events-last exam Patient was seen at bedside, lethargic On BiPAP. No chest pain Review of Systems General: No Chills, No Night Sweats; Fatigue, Malaise; No Appetite, No Other HEENT: No Head Aches, No Visual Changes, No Eye Pain, No Ear Pain, No Dysphasia, No Sinus Congestion, No Post Nasal Drip, No Sore Throat, No Other Pulmonary: Dyspnea; No Cough, No Pleuritic Chest Pain, No Other Cardiovascular: No: Chest Pain, Palpitations, Orthopnea, Paroxysmal Noc. Dyspnea, Edema, Lt Headedness, Other Focused Exam Time of Focused Exam: 07:30 Objective-Cardiology Exam Last Set of Vital Signs Vital Signs 06/25/22 06/26/22 06/26/22 06/26/22 08:15 06:00 08:01 08:06 Pulse 98 Resp 30 B/P (MAP) 119/82 (94) Pulse Ox 100 O2 Delivery NIV Bilevel O2 Flow Rate 25.00 FiO2 28 I&O Intake and Output 06/26/22 00:00 Intake Total 980 ml Output Total 2587 ml Balance -1607 ml Intake Oral 980 ml Output Urine Total 2587 ml General: Alert, Oriented X3, Moderate Distress HEENT: Atraumatic, PERRLA Neck: Supple, No JVD Lungs: Clear to Auscultation, Normal Air Movement Heart: Normal S1, Normal S2, No Murmurs, Other (Atrial fibrillation) Abdomen: Normal Bowel Sounds, Soft, No Tenderness, No Masses Extremities: Other (1+ pitting edema bilaterally) Skin: No Rashes Neuro: Normal Speech Psych/Mental Status: Mental Status NL, Mood NL Results Lab Laboratory Tests 06/26/22 04:12 A/P-Cardiology Admission Diagnosis Acute respiratory failure Alcohol withdrawal Coronary artery disease Paroxysmal atrial fibrillation Assessment/Plan Paroxysmal atrial fibrillation with rapid ventricular response History of paroxysmal atrial fibrillation, has been maintained on metoprolol and apixaban as an outpatient Borderline hypotensive Underwent LESTER with electrical cardioversion on June 25, 2022 Started on amiodarone bolus and a drip Return to atrial fibrillation yesterday afternoon, I am planning to repeat cardioversion today. Status post acute respiratory failure, acute exacerbation of COPD Currently on BiPAP, will evaluate chest x-ray and give 40 mg IV Lasix. Alcohol withdrawal, possible DT, Managed by primary care team Coronary artery disease, History of coronary stent in 2001, history of CABG, cardiac enzymes are normal, EKG showing sinus rhythm 2D echo done in September 2021 with ejection fraction 55 to 60%. Hypertension, controlled, monitor blood pressure Hyperlipidemia, monitor lipids Hyponatremia, probably secondary to alcoholism, monitor sodium level Acute on chronic metabolic alkalosis, respiratory acidosis. TOM BULL MD Jun 26, 2022 08:31
--- NOTE | 2022-06-26 08:48 | Cardioversion ---
Cardioversion PROCEDURE PHYSICIAN: Tom York DATE OF PROCEDURE: 06/26/22 DIRECT EXTERNAL ELECTRICAL CARDIOVERSION: Indications: Atrial Fibrillation with rapid ventricular rate Preoperative diagnoses: Atrial Fibrillation with rapid ventricular rate Postoperative diagnosis: Sinus rhythm, Successful Electrical Cardioversion History: 71-year-old gentleman with paroxysmal atrial fibrillation underwent LESTER and electrical cardioversion on June 26, 2022, started on amiodarone bolus and a drip Went back to atrial fibrillation yesterday afternoon I continued with the amiodarone drip and arrange for another attempt cardioversion today. Anesthesia: By Anesthesia services Complications: None Specimen: None Contrast: 0 Flouroscopy: none Procedure Details: The patient was brought the chemical lab technician after informed consent was taken, all the risks and complications were explained including the risk of stroke. Electrical cardioversion was carried out with anesthesia support with propofol. 200 joules of synchronized shock was delivered through external patches which promptly restored sinus rhythm. The patient tolerated the procedure well. Conclusions: Successful electrical cardioversion terminating atrial fibrillation TOM YORK MD Jun 26, 2022 08:48
--- NOTE | 2022-06-26 08:56 | Anesthesia-General Post-Op ---
MAC Patient Condition Mental Status/LOC: Same as Preop Cardiovascular: Satisfactory Nausea/Vomiting: Absent Respiratory: Satisfactory Pain: Controlled Complications: Absent Post Op Complications Complications None Follow Up Care/Instructions Patient Instructions None needed. Anesthesiology Discharge Order Discharge Order Patient is doing well, no complaints, stable vital signs, no apparent adverse anesthesia problems. No complications reported per nursing. STEVEN FREITAS CRNA Jun 26, 2022 08:56
[2022-06-26] MEDS: DOCUSATE SODIUM 100 MG (COLACE) CAP PO SCH ×2 (09:00→19:53)
[2022-06-26] MEDS: SENNOSIDES 8.6 MG (SENOKOT) TAB PO SCH ×2 (09:00→19:54)
--- NOTE | 2022-06-26 09:04 | Diagnostic Imaging Report ---
INDICATION: Dyspnea. TECHNIQUE: Single view chest 8:32 AM. CORRELATION STUDY: 06/21/2022 FINDINGS: Sternotomy and coronary artery rings markers. Heart size, mediastinum and vasculature are generally stable. Opacity in the right lung base, likely edema versus infiltrate, along with bilateral pleural effusions, adversely changed. Old healed right clavicle fracture. IMPRESSION: 1. Bilateral pleural effusions, right greater than left, along with atelectasis, infiltrate or edema at the right lung base. Adversely changed from prior. Dictated by: Dictated on workstation # [id number]
--- NOTE | 2022-06-26 09:13 | Progress Note - Hospitalist ---
Subjective HPI/CC On Admission Date Seen by Provider: Jun 26, 2022 Time Seen by Provider: 07:30 CC: Severe alcohol withdrawal with hyponatremia and CO2 narcosis HPI: This is a 71yoWM clinic patient of [facility] who has a h/o alcoholism and respiratory failure who presented to the ER via EMS due to found down at home. His alcohol level was 0 and he is a heavy user of alcohol. Patient was noted to have CO2 narcosis requiring biPAP and multipl doctors witnessed the conversation of DNR/DNI per . ABG repeat appears worse and patient has a very poor prognosis. Treating for AECOPD and PNA. Subjective/Events-last exam Patient is more confused today requiring BiPAP last night. Yesterday he was successfully cardioverted and remained in sinus rhythm for several hours with controlled ventricular response. He then went back in atrial fibrillation with rapid ventricular response and it was after that that he had more issues with confusion and weakness but no chest pain. He was on BiPAP and being sedated for cardioversion per Dr. York and did not appear to be in acute distress. Focused Exam Time of Focused Exam: 07:30 Objective Exam Vital Signs Vital Signs Date Time Temp Pulse Resp B/P (MAP) Pulse Ox O2 Delivery O2 Flow Rate FiO2 06/26/22 08:06 98 30 100 25.00 06/26/22 08:01 NIV Bilevel 06/26/22 08:00 121/82 (95) 06/26/22 00:00 36.7 06/25/22 08:15 28 Capillary Refill : Greater Than 3 Seconds General Appearance: No Apparent Distress, Chronically ill Respiratory: No Accessory Muscle Use, No Respiratory Distress, Wheezing (Mild expiratory in nature without rales or rhonchi. Diminished breath sounds posteriorly.) Cardiovascular: No Gallop, Irregularly Irregular Results/Procedures Lab Laboratory Tests 06/26/22 04:12 Patient resulted labs reviewed. Assessment/Plan Assessment and Plan Assess & Plan/Chief Complaint (1) Acute on chronic respiratory failure with hypoxia and hypercapnia Status: Acute Assessment & Plan: 06/20: On bipap, ABG pH 7.6, improved CO2, will titrate sedation and see if patient can be taken off bipap, continue PPX antibiotics and IV steroids at this time 06/21: Doing well on NC, encouraged IS and out of bed, will order PT 06/22: Much improved 06/23: Stable on 2LPM, will need oxygen at d/c 06/25: Respiratory failure improving despite medication rate control still suboptimal being scheduled for LESTER this morning with possible cardioversion to follow defer to cardiology. Following this when sedation abates advise getting up to sit in chair if possible. 06/26: Not doing as well from a respiratory standpoint likely aggravated by atrial fibrillation with rapid ventricular response in an individual with preserved systolic function and evidence for severe diastolic dysfunction. After receiving 24 hours of IV amiodarone patient is being cardioverted again. With likely severe COPD and history of hypercapnic respiratory failure acute on chronic prognosis remains quite poor patient has also underlying severe deconditioning. (2) Acute exacerbation of chronic obstructive pulmonary disease (COPD) Status: Acute (3) Atrial fibrillation Status: Acute Assessment & Plan: 06/20: Cardiology consulted, appreciate recommendations, patient rate controlled, Lovenox for PPX due to NPO status 06/22: Restart OAC 06/23: RVR ON, transferred back to ICU, rate controlled this AM on cardizem drip 06/24: Spoke with Dr York, will adjust rate control meds, hopeful transfer out of ICU later today Qualifiers: Qualified Codes: I48.0 - Paroxysmal atrial fibrillation (4) Alcohol withdrawal Status: Acute Assessment & Plan: 06/20: Requiring precedex due to agitation, CIWS protocol, ativan PRN, Thiamine/FA given 06/21: given PO ativan over IV 06/22: Decreased need for ativan Qualifiers: Qualified Codes: F10.931 - Alcohol use, unspecified with withdrawal delirium (5) Hyponatremia Status: Acute Assessment & Plan: 06/20: Stable, fluid restriction 06/21: Improving (6) Coronary artery disease without angina pectoris Status: Chronic Qualifiers: Qualified Codes: I25.10 - Atherosclerotic heart disease of [place] coronary artery without angina pectoris (7) Macrocytic anemia Status: Chronic Assessment & Plan: 06/21: Continue thiamine and FA, no signs of acute bleeding at this time 06/24: Normal iron panel (8) Physical debility Status: Acute Assessment & Plan: 06/21: PT ordered, patient will likely need NH placement 06/22: Discussed SNF placement with patient and he reluctantly agreed, SW notified 06/24: SNF at discharge, states patient is unable to return home at this time Critical Care Critically Ill Patient ALEXANDRA HUI MD Jun 26, 2022 09:13
[2022-06-26] MEDS: predniSONE 20 MG TAB PO SCH (09:39)
[2022-06-26] MEDS: APIXABAN 5 MG (ELIQUIS) TABLET PO SCH ×2 (09:39→20:08)
[2022-06-26] MEDS: FOLIC ACID 1 MG TAB PO SCH (09:39)
[2022-06-26] MEDS: MULTIVIT W/MINERALS TAB (THERAGRAN M) PO SCH (09:39)
[2022-06-26] MEDS: AMIODARONE 200 MG (CORDARONE) TAB PO SCH ×2 (09:40→20:08)
--- NOTE | 2022-06-26 09:48 | Tele-ICU Progress Note ---
Subjective Date Seen by a Provider: Jun 26, 2022 Time Seen by a Provider: 09:48 Subjective/Events-last exam Tele-ICU Physician , Progress Note ) Service provided via interactive audio and video telecommunications [employer] s derek to a patient admitted to ICU bed in [facility]. Patient is seen today due to persistent need of ICU care Available chart/ vitals / labs / Images reviewed Video assessment done using teleICU camera, rest of exam as per RN He is a 71-year-old male with past medical history of COPD, alcohol abuse, coronary artery bypass surgery apparently stopped drinking few days prior to this admission and his noticed that him to have increasing tremors and confusion. He was brought to the emergency room and found to have hypercarbic respiratory failure withCOPDexacerbation, hyponatremia, as well as a atrial fibrillation with rapid ventricular rate. He is initially treated with BiPAP ventilation, steroids and bronchodilators as well as IV antibiotics. Slowly he is hypercarbia and hyponatremia improved. He is a still disoriented and his thinks he may be close to his baseline at home. He has a electrolyte abnormalities which are being replaced 06/23/22. he is transferred from floor to icu b/o Afib with rvr requiring cardiazem drip. now hr is controlled but in afib. he is also receiving iv metoprolol 06/26/22 He was apparently cardioverted yesterday and converted to sinus rhythm but later he flipped back to atrial fibrillation. Last night he was confused or disoriented requiring BiPAP ventilation. Today he is in atrial fibrillation and he is going to be cardioverted again. Currently on Cardizem drip. Impression 1. Acute and chronic hypercarbic respiratory failure due to COPD exacerbation improved significantly but now requiring bipap 2. COPD exacerbation imroved 3. Bacteremia most likely a contamination with Staphylococcus coagulase- negative organisms. 4. Alcohol abuse disorder with withdrawal syndrome slowly improving 5. Hyponatremia most likely also due to alcohol abuse which is moderately improved 6. Atrial fibrillation with rapid ventricular rate, densitometrist following the patient. scheduled for coardioversion Recommendations 1. We will continue IV antibiotics, steroids and nebulizer treatment and wean as tolerated 2. Oxygenation with as needed BiPAP ventilation 3. DVT prophylaxis and ulcer prophylaxis 4. Continue to monitor his serum sodium level 5. CIWA protocol. 6. Hyper glycemia most likely due to steroids to be managed by primary care physician with insulin sliding scale. Coordination of care with primary care physician and bedside consultants. I am remotely monitoring this patient from Tele icu station in [place]. I am unable to do the bedside exam, and history/physical and pertinent information is taken from other notes in the computer and bedside staff. Certain portions of this document may have been dictated utilizing voice recognition technology such as [employer]. Inherent to this technology, typographical and grammatical errors may exist. As much as I am diligent to identify and correct to these mistakes, some errors may remain in the document. Critical care time devoted to this patient today is minutes approximately Sepsis Event Evaluation Height, Weight, BMI Height: 5'11.00" Weight: 176lbs. 1.6oz. [id number]; 22.19 BMI Method: Focused Exam Time of Focused Exam: 07:30 Exam Exam Patient acknowledged, consented, and participated in this virtual visit which was conducted using real time audio/video Vital Signs Date Time Temp Pulse Resp B/P (MAP) Pulse Ox O2 Delivery O2 Flow Rate FiO2 06/26/22 09:00 71 17 134/93 (107) 100 NIV Bilevel 25.00 06/26/22 08:06 98 30 100 25.00 06/26/22 08:01 NIV Bilevel 25.00 06/26/22 08:00 77 24 121/82 (95) 96 Nasal Cannula 2.00 06/26/22 07:00 102 113/77 (89) 97 Nasal Cannula 2.00 06/26/22 07:00 103 06/26/22 06:00 93 35 119/82 (94) 99 Nasal Cannula 2.00 06/26/22 05:00 89 25 119/84 (96) 100 Nasal Cannula 2.00 06/26/22 04:00 98 23 112/87 (95) 96 Nasal Cannula 2.00 06/26/22 03:52 Nasal Cannula 2.00 06/26/22 03:00 108 29 113/84 (94) 100 Nasal Cannula 2.00 06/26/22 02:09 98 Nasal Cannula 2.00 06/26/22 02:00 115 29 142/92 (109) 97 Nasal Cannula 2.00 06/26/22 01:00 109 29 134/89 (104) 100 Nasal Cannula 2.00 06/26/22 01:00 109 06/26/22 00:00 36.7 06/26/22 00:00 100 29 118/88 (98) 100 Nasal Cannula 2.00 06/26/22 00:00 Nasal Cannula 2.00 06/25/22 23:00 106 22 106/70 (82) 95 Nasal Cannula 2.00 06/25/22 22:33 100 Nasal Cannula 2.00 06/25/22 22:33 Nasal Cannula 2.00 06/25/22 22:00 93 25 112/73 (86) 100 Nasal Cannula 2.00 06/25/22 21:00 118 37 115/78 (90) 100 Nasal Cannula 2.00 06/25/22 20:00 131 23 117/82 (94) 92 Nasal Cannula 2.00 06/25/22 20:00 Nasal Cannula 2.00 06/25/22 20:00 37.1 06/25/22 19:08 100 Nasal Cannula 2.00 06/25/22 19:00 128 06/25/22 19:00 128 23 159/130 (140) 100 Nasal Cannula 2.00 06/25/22 18:00 115 21 110/77 (88) 93 Nasal Cannula 2.00 06/25/22 17:00 112 28 113/69 (84) 100 Nasal Cannula 2.00 06/25/22 16:09 36.4 06/25/22 16:08 Nasal Cannula 2.00 06/25/22 16:00 126 34 105/78 (87) 96 Nasal Cannula 2.00 06/25/22 15:00 129 25 116/79 (91) 100 Nasal Cannula 2.00 06/25/22 14:55 96 Nasal Cannula 2.00 06/25/22 14:00 108 24 105/83 (90) 100 Nasal Cannula 2.00 06/25/22 13:41 100 Nasal Cannula 2.00 06/25/22 13:23 25.00 06/25/22 13:00 104 22 117/75 (89) 100 Nasal Cannula 2.00 06/25/22 12:57 100 Nasal Cannula 2.00 06/25/22 12:38 108 06/25/22 12:00 135 21 115/94 (101) 94 Nasal Cannula 2.00 06/25/22 12:00 Nasal Cannula 2.00 06/25/22 12:00 36.6 06/25/22 11:02 138 34 117/48 (71) 98 Nasal Cannula 2.00 06/25/22 10:36 98 Nasal Cannula 2.00 06/25/22 10:00 82 24 105/73 (84) 100 Nasal Cannula 2.00 06/25/22 09:56 82 I & O 06/26/22 07:00 Intake Total 990 ml Output Total 2827 ml Balance -1837 ml Height & Weight Height: 5'11.00" Weight: 176lbs. 1.6oz. 79.859897uv; 22.19 BMI Method: General Appearance: No Apparent Distress, Chronically ill HEENT: PERRL/EOMI, Other Neck: Non Tender Respiratory: No Accessory Muscle Use, No Respiratory Distress, Wheezing (Mild expiratory in nature without rales or rhonchi. Diminished breath sounds posteriorly.) Cardiovascular: No Gallop, Irregularly Irregular Capillary Refill: Greater Than 3 Seconds Gastrointestinal: normal bowel sounds, non tender Extremity: No Pedal Edema Neurologic/Psychiatric: Alert, No Motor/Sensory Deficits, oil pipe inspector II-XII Norm as Tested Skin: Normal Color, Warm/Dry Results Lab Laboratory Tests 06/25/22 03:48 06/26/22 04:12 Assessment/Plan Assessment/Plan as above Critical Care: Critically Ill Patient Time spent with patient (mins): 25 BLANK ROBERTSON MD Jun 26, 2022 09:48
[2022-06-26] MEDS ORDERED: AMIODARONE FOR BOLUS 150 MG in NS (IVPB) 100 ML IV ONE (12:45)
[2022-06-27] MEDS: RT-ALBUTEROL/IPRATROPIUM 3 ML (DUONEB) VIAL INH PRN (00:48)
[2022-06-27] MEDS: RT-ALBUTEROL/IPRATROPIUM 3 ML (DUONEB) VIAL INH SCH ×5 (03:15→22:21)
[2022-06-27 05:10] LABS: BASOPHILS % (AUTO) 0 % (0-10); EOSINOPHILS % (AUTO) 0 % (0-10); HEMATOCRIT 29 % (40-54); HEMOGLOBIN 9.7 g/dL (13.3-17.7); LYMPHOCYTES # (AUTO) 0.5 10^3/uL (1.0-4.0); LYMPHOCYTES % (AUTO) 5 % (12-44); MEAN CORPUSCULAR HEMOGLOBIN 36 pg (25-34); MEAN CORPUSCULAR HGB CONC 34 g/dL (32-36); MEAN CORPUSCULAR VOLUME 106 fL (80-99); MEAN PLATELET VOLUME 9.6 fL (9.0-12.2); MONOCYTES # (AUTO) 1.5 10^3/uL (0.0-1.0); MONOCYTES % (AUTO) 15 % (0-12); NEUTROPHILS % (AUTO) 79 % (42-75); PLATELET COUNT 213 10^3/uL (130-400); WHITE BLOOD COUNT 10.1 10^3/uL (4.3-11.0)
[2022-06-27 05:30] LABS: BILIRUBIN,TOTAL 0.4 MG/DL (0.1-1.0); CALCIUM 8.6 MG/DL (8.5-10.1); CREATININE SERUM 0.6 MG/DL (0.60-1.30); POTASSIUM 3.8 MMOL/L (3.6-5.0); TOTAL PROTEIN 5.2 GM/DL (6.4-8.2)
[2022-06-27] MEDS: inSUlin ASPART (NovoLOG) 1 UNIT/0.01 ML (CHARGE PER UNIT) SC SCH ×4 (05:35→19:43)
[2022-06-27] MEDS: MULTIVIT W/MINERALS TAB (THERAGRAN M) PO SCH (05:36)
[2022-06-27 05:41] LABS: LYMPHOCYTES % (MANUAL) 5 %; MONOCYTES % (MANUAL) 15 %; NEUTROPHILS % (MANUAL) 78 %
[2022-06-27] MEDS: KCL 20 MEQ TAB (K-DUR) PO SCH (05:41)
[2022-06-27] MEDS: MAGNESIUM 1 GM/100 ML IVPB 100 ML IV SCH (05:41)
[2022-06-27 05:42] LABS: EOSINOPHILS % (MANUAL) 2 %; HYPOCHROMASIA SLIGHT
[2022-06-27] MEDS: POTASSIUM CL 10MEQ/50ML IVPB 50 ML IV SCH ×3 (05:42→06:42)
[2022-06-27] MEDS ORDERED: POTASSIUM CL 10MEQ/50ML IVPB 100 ML IV ONE (05:44)
[2022-06-27] MEDS ORDERED: NS IV 500 ML 500 ML IV PRN (05:45)
[2022-06-27 05:59] LABS: PHOSPHORUS 4.1 MG/DL (2.3-4.7)
[2022-06-27 06:01] LABS: MAGNESIUM 2.1 MG/DL (1.6-2.4)
[2022-06-27] MEDS ORDERED: FUROSEMIDE 40 MG/4 ML INJ (LASIX) IVP NR (07:00)
[2022-06-27] MEDS ORDERED: proPOfol 200 MG/20 ML (DIPRIVAN) VIAL IV ONE (08:17)
--- NOTE | 2022-06-27 08:17 | Cardiology Progress Note ---
Subjective Date Seen by Provider: Jun 27, 2022 Time Seen by Provider: 08:15 Subjective/Events-last exam Patient was seen at bedside, laying down comfortably Breathing better and feeling better Went back to atrial fibrillation yesterday afternoon. Review of Systems General: No Chills, No Night Sweats; Fatigue; No Malaise, No Appetite, No Other HEENT: No Head Aches, No Visual Changes, No Eye Pain, No Ear Pain, No Dysphasia, No Sinus Congestion, No Post Nasal Drip, No Sore Throat, No Other Pulmonary: Dyspnea; No Cough, No Pleuritic Chest Pain, No Other Cardiovascular: No: Chest Pain, Palpitations, Orthopnea, Paroxysmal Noc. Dyspnea, Edema, Lt Headedness, Other Focused Exam Time of Focused Exam: 07:30 Objective-Cardiology Exam Last Set of Vital Signs Vital Signs 06/26/22 06/27/22 06/27/22 06/27/22 08:00 03:00 07:00 07:01 Temp 36.5 Pulse 100 Resp 26 B/P (MAP) 114/85 (95) Pulse Ox 100 O2 Delivery Nasal Cannula O2 Flow Rate 2.00 FiO2 25 I&O Intake and Output 06/27/22 00:00 Intake Total 740 ml Output Total 5185 ml Balance -4445 ml Intake Oral 740 ml Output Urine Total 5185 ml # Bowel Movements 4 General: Alert, Oriented X3, Moderate Distress HEENT: Atraumatic, PERRLA Neck: Supple, No JVD Lungs: Clear to Auscultation, Normal Air Movement Heart: Normal S1, Normal S2, No Murmurs, Other (Atrial fibrillation) Abdomen: Normal Bowel Sounds, Soft, No Tenderness, No Masses Extremities: Other (1+ pitting edema bilaterally) Skin: No Rashes Neuro: Normal Speech Psych/Mental Status: Mental Status NL, Mood NL Results Lab Laboratory Tests 06/27/22 04:22 A/P-Cardiology Admission Diagnosis Acute respiratory failure Alcohol withdrawal Coronary artery disease Paroxysmal atrial fibrillation Assessment/Plan Paroxysmal atrial fibrillation with rapid ventricular response History of paroxysmal atrial fibrillation, has been maintained on metoprolol and apixaban as an outpatient Borderline hypotensive Underwent LESTER with electrical cardioversion on June 25, 2022 Started on amiodarone bolus and a drip Return to atrial fibrillation on June 25 afternoon Another cardioversion was done on June 26, 2002 and he was started on oral amiodarone He returned back to atrial fibrillation on June 26 afternoon I gave him a second bolus of amiodarone and continue with the oral amiodarone 400 twice daily I will try another cardioversion and if it failed we will consider accepting atrial fibrillation as permanent Increase Cardizem and he is currently on Cardizem CD180 daily Status post acute respiratory failure, acute exacerbation of COPD Breathing better, good urine output response, I will give another dose 40 mg IV Lasix Alcohol withdrawal, stable at this point Managed by medical team Coronary artery disease, History of coronary stent in 2001, history of CABG, cardiac enzymes are normal, EKG showing sinus rhythm 2D echo done in September 2021 with ejection fraction 55 to 60%. Hypertension, controlled, monitor blood pressure Hyperlipidemia, monitor lipids Hyponatremia, probably secondary to alcoholism, monitor sodium level Acute on chronic metabolic alkalosis, respiratory acidosis. TOM BULL MD Jun 27, 2022 08:17
--- NOTE | 2022-06-27 08:24 | Cardioversion ---
Cardioversion PROCEDURE PHYSICIAN: Tom York DATE OF PROCEDURE: 06/27/22 DIRECT EXTERNAL ELECTRICAL CARDIOVERSION: Indications: Atrial Fibrillation with rapid ventricular rate Preoperative diagnoses: Atrial Fibrillation with rapid ventricular rate Postoperative diagnosis: Atrial fibrillation with rapid ventricular response History: Patient has been in atrial fibrillation, failed cardioversion Loaded with amiodarone and had a cardioversion, had another cardioversion and went back to atrial fibrillation Had additional loading dose of amiodarone and attempt was made today Anesthesia: By Anesthesia services Complications: None Specimen: None Contrast: 0 Flouroscopy: none Procedure Details: The patient was brought the laboratory chemist after informed consent was taken, all the risks and complications were explained including the risk of stroke. Electrical cardioversion was carried out with anesthesia support with propofol. To attempt a cardioversion with 120 joules of synchronized shock was delivered through external patches which promptly restored sinus rhythm. Patient did not maintain sinus rhythm, return to atrial fibrillation second attempt was done also patient returned to sinus rhythm but was unable to maintain it and converted back within few seconds to atrial fibrillation Conclusions: 2 attempted cardioversion, patient converted to sinus rhythm but failed to maintain it returned to atrial fibrillation TOM YORK MD Jun 27, 2022 08:24
--- NOTE | 2022-06-27 08:54 | Anesthesia-General Post-Op ---
MAC Patient Condition Mental Status/LOC: Same as Preop Cardiovascular: Satisfactory Nausea/Vomiting: Absent Respiratory: Satisfactory Pain: Controlled Complications: Absent Post Op Complications Complications None Follow Up Care/Instructions Patient Instructions None needed. Anesthesiology Discharge Order Discharge Order Patient is doing well, no complaints, stable vital signs, no apparent adverse anesthesia problems. No complications reported per nursing. RAYA ERVIN CRNA Jun 27, 2022 08:54
[2022-06-27] MEDS: APIXABAN 5 MG (ELIQUIS) TABLET PO SCH ×2 (09:29→19:43)
[2022-06-27] MEDS: FOLIC ACID 1 MG TAB PO SCH (09:29)
[2022-06-27] MEDS: AMIODARONE 200 MG (CORDARONE) TAB PO SCH ×2 (09:29→19:44)
[2022-06-27] MEDS: DOCUSATE SODIUM 100 MG (COLACE) CAP PO SCH ×2 (09:33→19:26)
[2022-06-27] MEDS: SENNOSIDES 8.6 MG (SENOKOT) TAB PO SCH ×2 (09:35→19:26)
[2022-06-27] MEDS: ONDANSETRON 4 MG/2 ML (SDV) Z0FRAN IV PRN (10:15)
--- NOTE | 2022-06-27 10:29 | Tele-ICU Progress Note ---
Subjective Date Seen by a Provider: Jun 27, 2022 Time Seen by a Provider: 10:29 Subjective/Events-last exam (Tele-ICU Physician , Progress Note ) Service provided via interactive audio and video telecommunications E-CARE system to a patient admitted to ICU bed in [facility]. Patient is seen today due to persistent need of ICU care Available chart/ vitals / labs / Images reviewed Video assessment done using teleICU camera, rest of exam as per RN Discussed with RN Events overnight : Afebrile hemodynamically stable Respiratory - 2l I/O = neg 4 L Drips: Pressors- no Hospital course: , initial ABG 7.31/91/158 on 4 lpm NC, then placed on BiPAP 7.25/101/368, 06/21- transfered to tele floor 06/22 - back to ICU with afib RVR 4/15 - s/p CV - sinus 2 h - back to afib /16 - s/p CV -sinus 2 h - back to afib /17- s/p CV x2 -back to a fib A/P Acute resp failure , hypercarbic 9 CTA neg for pe or pna 06/19/22 - on BIPAP 18/6 25 % TV 700 rr 20 MV 15 L - on precedex , 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 h/o PAF - sinus on admission -06/22 - back to ICU with afib RVR 4/15 - s/p CV - sinus 2 h - back to afib /16 - s/p CV -sinus 2 h - back to afib 17- s/p CV x2 -back to a fib - on po meds ( amio - AC with eliquis AECOPD - SM -> prednisone -> finished 40 on 06/26 - nebs + pulmicort Acute mental status change - AAO x1 as pewr RN - ? baseline dementia vs ICU delirium - will recheck ABG - CTH neg 06/19/22 Hyponatremia 120 06/19 - resolved - CPM GPC clusters 03/13 06/19 - cefepime 06/19 --> complited Possible fall on admission - CT spine neg on admission COPD baseline - 4 L o2 drinking heavily at home - thiamine - Civa monitor Hyperglycemia - presumed due to steroids - resolved -ISS Lines : periph , (Central Line Necessity Reviewed) Myers: + OG: Nutrition: po Analgesia: Anxiety/ delirium VTE Prophylaxis: eliquis Stress Ulcer Prophylaxis: ppi Plans in collaboration with bedside consultants and IM MDs. Discussed with RN to reach out if any questions or concerns Case and care daily discussed on multidisciplinary rounds ( RN, PharmD, Bun Icer , Respiratory Therapy, ice cream vault worker ) A total of 20 minutes of critical care time was devoted to this patient today, required to treat and/or prevent further deterioration of critical care condition ( as above ) . I am remotely monitoring this patient from another state. I am unable to do the bedside exam, and history/physical and pertinent information is taken from other notes in the computer and bedside staff. Sepsis Event Evaluation Height, Weight, BMI Height: 5'11.00" Weight: 176lbs. 1.6oz. 79.670723yq; 20.70 BMI Method: Focused Exam Time of Focused Exam: 07:30 Exam Exam Patient acknowledged, consented, and participated in this virtual visit which was conducted using real time audio/video Vital Signs Date Time Temp Pulse Resp B/P (MAP) Pulse Ox O2 Delivery O2 Flow Rate FiO2 06/27/22 08:45 100 21 121/86 (98) 98 Nasal Cannula 2.00 06/27/22 08:30 102 22 96/68 (77) 98 Nasal Cannula 2.00 06/27/22 08:15 113 24 99/60 (73) 100 Nasal Cannula 2.00 06/27/22 08:00 100 Nasal Cannula 2.00 06/27/22 08:00 36.7 06/27/22 08:00 111 37 124/101 (109) 100 Nasal Cannula 2.00 06/27/22 07:01 100 06/27/22 07:00 105 26 114/85 (95) 100 Nasal Cannula 2.00 06/27/22 06:00 128 27 118/92 (101) 100 Nasal Cannula 2.00 06/27/22 05:00 104 25 127/87 (100) 100 Nasal Cannula 2.00 06/27/22 04:00 98 25 126/94 (105) 97 Nasal Cannula 2.00 06/27/22 03:32 100 Nasal Cannula 2.00 06/27/22 03:05 100 Nasal Cannula 2.00 06/27/22 03:00 36.5 96 24 117/77 (90) 98 Nasal Cannula 2.00 06/27/22 01:00 110 06/27/22 00:48 100 Nasal Cannula 2.00 06/26/22 23:15 100 Nasal Cannula 2.00 06/26/22 23:00 36.3 103 26 121/73 (89) 100 Nasal Cannula 2.00 06/26/22 22:14 100 Nasal Cannula 2.00 06/26/22 21:00 112 24 99/65 (76) 100 Nasal Cannula 2.00 06/26/22 20:00 111 32 125/89 (101) 100 Nasal Cannula 2.00 06/26/22 19:35 98 Nasal Cannula 2.00 06/26/22 19:00 95 06/26/22 19:00 36.7 101 21 112/73 (86) 98 Nasal Cannula 2.00 06/26/22 18:53 100 Nasal Cannula 2.00 06/26/22 18:00 102 29 118/72 (87) 100 Nasal Cannula 2.00 06/26/22 17:00 101 27 118/70 (86) 100 Nasal Cannula 2.00 06/26/22 16:10 Nasal Cannula 2.00 06/26/22 16:08 36.4 06/26/22 16:00 110 35 101/73 (82) 100 Nasal Cannula 2.00 06/26/22 15:11 100 Nasal Cannula 2.00 06/26/22 15:00 85 25 123/89 (100) 100 Nasal Cannula 2.00 06/26/22 14:00 75 35 113/82 (92) 100 Nasal Cannula 2.00 06/26/22 13:41 125 103/66 06/26/22 13:00 125 26 103/66 (78) 99 Nasal Cannula 2.00 06/26/22 12:34 101 06/26/22 12:00 Nasal Cannula 2.00 06/26/22 12:00 93 110/80 (90) 97 Nasal Cannula 2.00 06/26/22 12:00 36.2 06/26/22 11:23 Nasal Cannula 2.00 06/26/22 11:00 89 110/89 (96) 96 Nasal Cannula 2.00 06/26/22 10:54 Nasal Cannula 2.00 I & O 06/27/22 07:00 Intake Total 990 ml Output Total 4665 ml Balance -3675 ml Height & Weight Height: 5'11.00" Weight: 176lbs. 1.6oz. 79.984534ca; 20.70 BMI Method: General Appearance: No Apparent Distress, Chronically ill HEENT: PERRL/EOMI, Other Neck: Non Tender Respiratory: No Accessory Muscle Use, No Respiratory Distress, Wheezing (Mild expiratory in nature without rales or rhonchi. Diminished breath sounds posteriorly.) Cardiovascular: No Gallop, Irregularly Irregular Capillary Refill: Less Than 3 Seconds Gastrointestinal: normal bowel sounds, non tender Extremity: No Pedal Edema Neurologic/Psychiatric: Alert, No Motor/Sensory Deficits, chief engineer research II-XII Norm as Tested Skin: Normal Color, Warm/Dry Results Lab Laboratory Tests 06/26/22 04:12 06/27/22 04:22 Assessment/Plan Assessment/Plan 1 ROSE SU MD Jun 27, 2022 10:29
[2022-06-27] MEDS: RT-BUDESONIDE NEBS 0.5 MG/2ML (PULMICORT) AMP INH SCH ×2 (10:33→22:21)
[2022-06-27 11:12] LABS: ABG BASE EXCESS 18.1 MMOL/L (-2.5-2.5); ABG OXYGEN SATURATION 98 % (94-100); ABG PCO2 64 MMHG (35-45); ABG PH 7.45 (7.37-7.43); ABG PO2 78 MMHG (79-93)
[2022-06-27 11:21] LABS: ABG TCO2 45.7 MMOL/L (21.0-31.0)
[2022-06-27 11:22] LABS: ALLENS TEST YES-POS; INSPIRED O2 1 L; PATIENT TEMP 36.2; VENTILATOR NO
--- NOTE | 2022-06-27 13:04 | Progress Note - Hospitalist ---
JENNIFER HUITRON 06/27/22 1304: Subjective HPI/CC On Admission Date Seen by Provider: Jun 27, 2022 Time Seen by Provider: 09:00 CC: Severe alcohol withdrawal with hyponatremia and CO2 narcosis HPI: This is a 71yoWM clinic patient of [facility] who has a h/o alcoholism and respiratory failure who presented to the ER via EMS due to found down at home. His alcohol level was 0 and he is a heavy user of alcohol. Patient was noted to have CO2 narcosis requiring biPAP and multipl doctors witnessed the conversation of DNR/DNI per . ABG repeat appears worse and patient has a very poor prognosis. Treating for AECOPD and PNA. Subjective/Events-last exam This patient was awake lying in bed with BiPAP 16/6 25% when seen this morning. He has primarily been on nasal cannula since 06/20 looking in his chart, but his nurse reports he was on the BiPAP some yesterday afternoon as well. He continues to be in atrial fibirillation with mild RVR despite repeat cardioversion attempt this morning. This was the 3rd cardioversion attempt since 06/25. He continues to be on amiodarone 400mg PO BID and Eliquis 5mg PO BID. Cardiology had already been in and seen the patient this morning and planned to initiate cardizem 180mg PO QD. This patient denies LH, CP, palpitations, abd pain, N/V. He does have some SOB. Review of Systems General: No Chills HEENT: No Head Aches, No Visual Changes Pulmonary: Dyspnea, Cough Cardiovascular: No: Chest Pain, Palpitations Gastrointestinal: No: Nausea, Vomiting, Abdominal Pain Genitourinary: Other (Myers in place) Neurological: No: Weakness, Numbness Focused Exam Time of Focused Exam: 07:30 Objective Exam Vital Signs Vital Signs Date Time Temp Pulse Resp B/P (MAP) Pulse Ox O2 Delivery O2 Flow Rate FiO2 06/27/22 11:00 99 27 111/83 (92) 100 Nasal Cannula 1.00 06/27/22 08:00 36.7 06/26/22 08:00 25 Capillary Refill : Less Than 3 Seconds General Appearance: No Apparent Distress, WD/WN HEENT: PERRL/EOMI Respiratory: Chest Non Tender, No Accessory Muscle Use, No Respiratory Distress, Other (Diminished breath sounds bilaterally) Cardiovascular: Irregularly Irregular, Tachycardia Gastrointestinal: Normal Bowel Sounds, Non Tender, Soft Extremity: Normal Capillary Refill, Non Tender, No Calf Tenderness, No Pedal Edema Neurologic/Psychiatric: Alert, No Motor/Sensory Deficits Skin: Normal Color, Warm/Dry Lymphatic: No Adenopathy Results/Procedures Lab Laboratory Tests 06/27/22 04:22 Patient resulted labs reviewed. Radiology NAME: JUAN MANUEL MARTIN [facility] REC#: [id number] PT STATUS: ADM IN : 1950 PHYSICIAN: TOM BULL MD ADMIT DATE: 06/19/22/ICU Signed Date of Exam:06/26/22 CHEST 1 VIEW, AP/PA ONLY INDICATION: Dyspnea. TECHNIQUE: Single view chest 8:32 AM. CORRELATION STUDY: 06/21/2022 FINDINGS: Sternotomy and coronary artery rings markers. Heart size, mediastinum and vasculature are generally stable. Opacity in the right lung base, likely edema versus infiltrate, along with bilateral pleural effusions, adversely changed. Old healed right clavicle fracture. IMPRESSION: 1. Bilateral pleural effusions, right greater than left, along with atelectasis, infiltrate or edema at the right lung base. Adversely changed from prior. Dictated by: Dictated on workstation # [id number] Dict: 06/26/2254 Trans: 06/26/22930 [facility] [id number] Interpreted by: KAR LOPEZ DO Electronically signed by: KAR LOPEZ DO 06/26/22 0931 Assessment/Plan Assessment and Plan Assess & Plan/Chief Complaint Acute on Chronic RF w/ hypoxia and hypercapnia -CXR 06/26 revealed bilateral pleural effusions, right greater then left, and atelectasis vs. infiltrate vs. edema @ right lung base. This was worse than CXR on 06/21 despite receiving a 7 day regimen of Cefepime. -Will continue nebulizer treatments and Lasix 40mg IV QD at this time and hold off on abx. Treat underlying afib. -Ween oxygen as able. Acute COPD Exacerbation -Duoneb breathing treatments. Consider steroids. Afib w/ RVR -Continues to be in Afib despite 3 cardioversion attempts. - Amiodarone 400mg PO BID and Eliquis 5mg PO BID. Cardizem 180mg PO BID initiated by cardiology today. -Management per cardiology CAD w/ history of CABG Alcohol Withdrawal -CIWA protocol. Condition appears stable at this time. Hyponatremia -IVF and monitor DM type 2 -Insulin sliding scale Debility -PT/OT as able DVT proph: SCD's Diet: as tolerated Critical Care Critically Ill Patient ALEXANDRA JUDGE DO 06/28/22 0457: JENNIFER HUITRON Jun 27, 2022 13:04 ALEXANDRA JUDGE DO Jun 28, 2022 04:57
[2022-06-28] MEDS: RT-ALBUTEROL/IPRATROPIUM 3 ML (DUONEB) VIAL INH SCH ×6 (01:56→21:58)
[2022-06-28 04:57] LABS: BASOPHILS % (AUTO) 0 % (0-10); EOSINOPHILS # (AUTO) 0.3 10^3/uL (0.0-0.3); EOSINOPHILS % (AUTO) 4 % (0-10); HEMATOCRIT 30 % (40-54); HEMOGLOBIN 9.9 g/dL (13.3-17.7); LYMPHOCYTES % (AUTO) 13 % (12-44); MEAN CORPUSCULAR HEMOGLOBIN 36 pg (25-34); MEAN CORPUSCULAR HGB CONC 33 g/dL (32-36); MEAN CORPUSCULAR VOLUME 107 fL (80-99); MEAN PLATELET VOLUME 9.5 fL (9.0-12.2); MONOCYTES # (AUTO) 1.1 10^3/uL (0.0-1.0); MONOCYTES % (AUTO) 15 % (0-12); NEUTROPHILS % (AUTO) 67 % (42-75); PLATELET COUNT 244 10^3/uL (130-400); WHITE BLOOD COUNT 7.5 10^3/uL (4.3-11.0)
[2022-06-28] MEDS: POTASSIUM CL 10MEQ/50ML IVPB 50 ML IV SCH (06:16)
[2022-06-28] MEDS: KCL 20 MEQ TAB (K-DUR) PO SCH (06:16)
[2022-06-28] MEDS: MAGNESIUM 1 GM/100 ML IVPB 100 ML IV SCH (06:16)
[2022-06-28] MEDS: inSUlin ASPART (NovoLOG) 1 UNIT/0.01 ML (CHARGE PER UNIT) SC SCH ×4 (06:21→21:09)
[2022-06-28] MEDS: MULTIVIT W/MINERALS TAB (THERAGRAN M) PO SCH (06:21)
[2022-06-28 07:05] LABS: ALBUMIN 2.9 GM/DL (3.2-4.5); BILIRUBIN,TOTAL 0.3 MG/DL (0.1-1.0); CALCIUM 8.7 MG/DL (8.5-10.1); CREATININE SERUM 0.7 MG/DL (0.60-1.30); PHOSPHORUS 4.5 MG/DL (2.3-4.7); POTASSIUM 3.6 MMOL/L (3.6-5.0); TOTAL PROTEIN 5.1 GM/DL (6.4-8.2)
--- NOTE | 2022-06-28 07:58 | Cardiology Progress Note ---
Subjective Date Seen by Provider: Jun 28, 2022 Time Seen by Provider: 07:57 Subjective/Events-last exam Patient was seen at bedside, laying down comfortably, feeling better Review of Systems General: No Chills, No Night Sweats; Fatigue; No Malaise, No Appetite, No Other HEENT: No Head Aches, No Visual Changes, No Eye Pain, No Ear Pain, No Dysphasia, No Sinus Congestion, No Post Nasal Drip, No Sore Throat, No Other Pulmonary: Dyspnea; No Cough, No Pleuritic Chest Pain, No Other Cardiovascular: No: Chest Pain, Palpitations, Orthopnea, Paroxysmal Noc. Dyspnea, Edema, Lt Headedness, Other Focused Exam Time of Focused Exam: 07:30 Objective-Cardiology Exam Last Set of Vital Signs Vital Signs 06/26/22 06/28/22 08:00 06:00 Pulse 85 Resp 25 B/P (MAP) 111/72 (85) Pulse Ox 100 O2 Delivery Nasal Cannula O2 Flow Rate 2.00 FiO2 25 I&O Intake and Output 06/27/22 23:59 Intake Total 915 ml Output Total 3155 ml Balance -2240 ml Intake Oral 865 ml IV Total 50 ml Tube Feeding 0 ml Output Urine Total 3155 ml # Bowel Movements 8 General: Alert, Oriented X3, Moderate Distress HEENT: Atraumatic, PERRLA Neck: Supple, No JVD Lungs: Clear to Auscultation, Normal Air Movement Heart: Normal S1, Normal S2, No Murmurs, Other (Atrial fibrillation) Abdomen: Normal Bowel Sounds, Soft, No Tenderness, No Masses Extremities: Other (1+ pitting edema bilaterally) Skin: No Rashes Neuro: Normal Speech Psych/Mental Status: Mental Status NL, Mood NL Results Lab Laboratory Tests 06/28/22 04:17 A/P-Cardiology Admission Diagnosis Acute respiratory failure Alcohol withdrawal Coronary artery disease Paroxysmal atrial fibrillation Assessment/Plan Paroxysmal atrial fibrillation with rapid ventricular response History of paroxysmal atrial fibrillation, has been maintained on metoprolol and apixaban as an outpatient Borderline hypotensive Underwent LESTER with electrical cardioversion on June 25, 2022 Had multiple cardioversions after loading with amiodarone without success in maintaining sinus rhythm We will continue with amiodarone and Cardizem CD 180 and monitor tolerance and response. Status post acute respiratory failure, acute exacerbation of COPD Breathing better, good urine output response, continue to monitor Alcohol withdrawal, stable at this point Managed by medical team Coronary artery disease, History of coronary stent in 2001, history of CABG, cardiac enzymes are normal, EKG showing sinus rhythm 2D echo done in September 2021 with ejection fraction 55 to 60%. Hypertension, controlled, monitor blood pressure Hyperlipidemia, monitor lipids Hyponatremia, probably secondary to alcoholism, monitor sodium level Acute on chronic metabolic alkalosis, respiratory acidosis. TOM BULL MD Jun 28, 2022 07:58
[2022-06-28] MEDS ORDERED: KCL 20 MEQ TAB (K-DUR) PO NR (08:00)
[2022-06-28] MEDS: RT-BUDESONIDE NEBS 0.5 MG/2ML (PULMICORT) AMP INH SCH ×2 (08:01→21:58)
[2022-06-28] MEDS: AMIODARONE 200 MG (CORDARONE) TAB PO SCH ×2 (09:21→20:44)
[2022-06-28] MEDS: FOLIC ACID 1 MG TAB PO SCH (09:22)
[2022-06-28] MEDS: APIXABAN 5 MG (ELIQUIS) TABLET PO SCH ×2 (09:22→20:44)
[2022-06-28] MEDS: DOCUSATE SODIUM 100 MG (COLACE) CAP PO SCH ×2 (09:22→20:44)
[2022-06-28] MEDS: SENNOSIDES 8.6 MG (SENOKOT) TAB PO SCH ×2 (09:22→20:44)
--- NOTE | 2022-06-28 09:28 | Physician Query Clarification ---
Physician Query-General Query to Physician: Clinical Validation Clarification Dr Dr. Nuzhat Judge (Per Aarti Wilson I was directed to send this to Dr. Judge) PNA/Pneumonia has been documented in the medical record. After study, has PNA/Pneumonia been ruled out? If it has been ruled out, please document PNA/Pneumonia ruled out" in the progress notes and/or discharge summary. Yes/Agreed, PNA/Pneumonia ruled out/is not clinically valid Not agreed, PNA/Pneumonia has not been ruled out/is clinically valid* *Please document the clinical evidence supportive of this diagnosis (even if now resolved) in the Progress Notes and Discharge Summary Other, with explanation of the clinical findings Clinically undetermined, no explanation for the clinical findings Additional information: "h/o alcoholism and respiratory failure who presented to the ER via EMS due to found down at home", Admission C Xry: "No effusion or pneumothorax...No focal consolidation". Non productive cough, Admission VS/LABS: HR 94, RR 20, BP 151/127, SpO2 100% sat on 4 L, T 35.4, WBC 5.4, , lactic acid 1.54 Treatment in ER: NS 1L, dexamethasone, methylprednisolone IV, cefepime IV, then Cefepime IV Q 12 hours continued to present In responding to this query, please exercise your independent professional judgment. The purpose of this communication is to more accurately reflect the complexity of your patients condition. The fact that a question is asked does not imply that any particular answer is desired or expected. Thank you for your timely response to this clarification. Maria T Soto MSN, RN Clinical Machine Washer [email or web address] PHYSICIAN RESPONSE: Based on the clinical findings in the record, please respond to the query above on this document as an addendum. Physician Response: Physician Response ruled out If you have questions please contact: Wave Soldering Machine Operator: Ext: Thank you for your time and cooperation. Clinical Machine Washer/Wave Soldering Machine Operator This is a permanent part of the medical record MARIA T SOTO Jun 28, 2022 09:28 ALEXANDRA JUDGE DO Jun 28, 2022 10:05
--- NOTE | 2022-06-28 10:56 | Progress Note - Hospitalist ---
"JENNIFER HUITRON 06/28/22 1056: Subjective HPI/CC On Admission Date Seen by Provider: Jun 28, 2022 Time Seen by Provider: 08:40 CC: Severe alcohol withdrawal with hyponatremia and CO2 narcosis HPI: This is a 71yoWM clinic patient of [facility] who has a h/o alcoholism and respiratory failure who presented to the ER via EMS due to found down at home. His alcohol level was 0 and he is a heavy user of alcohol. Patient was noted to have CO2 narcosis requiring biPAP and multipl doctors witnessed the conversation of DNR/DNI per . ABG repeat appears worse and patient has a very poor prognosis. Treating for AECOPD and PNA. Subjective/Events-last exam Patient was sitting up in bed when seen this morning. He is oriented to self and place but not time. He was on 1 L O2 with O2 saturation of 95%. This is an improvement from yesterday. ABG yesterday afternoon revealed 7.45 | 64 | 78. He continues to be in atrial fibrilation but appears to be rate controlled as of this time. He has good urine output and reports good appetite. He reports continued SOB and cough, but denies LH, CP, palpitations, abd pain, N/V/D. Review of Systems General: No Chills HEENT: No Head Aches, No Visual Changes Pulmonary: Dyspnea, Cough Cardiovascular: No: Chest Pain, Palpitations Gastrointestinal: No: Nausea, Vomiting, Abdominal Pain Genitourinary: No Dysuria, No Hematuria Neurological: No: Weakness, Numbness Focused Exam Time of Focused Exam: 07:30 Objective Exam Vital Signs Vital Signs Date Time Temp Pulse Resp B/P (MAP) Pulse Ox O2 Delivery O2 Flow Rate FiO2 06/28/22 10:00 85 25 104/69 (81) 93 Nasal Cannula 1.00 06/28/22 08:06 36.3 06/26/22 08:00 25 Capillary Refill : Less Than 3 Seconds General Appearance: No Apparent Distress, WD/WN HEENT: Pharynx Normal, Moist Mucous Membranes Respiratory: Chest Non Tender, No Accessory Muscle Use, No Respiratory Distress, Rhonci (mild), Wheezing Cardiovascular: No Murmur, Normal Peripheral Pulses, Irregularly Irregular Gastrointestinal: Normal Bowel Sounds, Non Tender Extremity: Normal Capillary Refill, Normal Inspection, Non Tender, No Calf Tenderness Neurologic/Psychiatric: Alert, No Motor/Sensory Deficits, Other (Oriented to self and place, not time) Skin: Normal Color, Warm/Dry Lymphatic: No Adenopathy Results/Procedures Lab Laboratory Tests 06/28/22 04:17 Patient resulted labs reviewed. Assessment/Plan Assessment and Plan Assess & Plan/Chief Complaint Acute on Chronic RF w/ hypoxia and hypercapnia -CXR 06/26 revealed bilateral pleural effusions, right greater then left, and atelectasis vs. infiltrate vs. edema @ right lung base. This was worse than CXR on 06/21 despite receiving a 7 day regimen of Cefepime. -Will continue nebulizer treatments and Lasix 40mg IV QD at this time and hold off on abx. Treat underlying afib. -06/27 ABG 7.45|64|78. -Condition appears to be improving. Tolerating 1-2L 02 at this time. Reports being on 2L O2 at home at baseline. Still significant wheezing on exam. Will move from ICU status to 4th floor. Acute COPD Exacerbation -Duoneb breathing treatments. Consider steroids. Afib w/ RVR -Continues to be in Afib despite 3 cardioversion attempts. -Amiodarone 400mg PO BID, Cardizem 180mg PO BID, and Eliquis 5mg PO BID. -Management per cardiology CAD w/ history of CABG Alcohol Withdrawal -CIWA protocol. Condition appears stable at this time. Hyponatremia -IVF and monitor DM type 2 -Insulin sliding scale Debility -PT/OT as able DVT proph: SCD's Diet: as tolerated HAFSA JUDGE DO 06/29/22 0457: Supervisory-Addendum Brief Verification & Attestation Participated in pt care: history, MDM, physical Personally performed: exam, history, MDM, supervision of care Care discussed with: Medical Student Procedures: n/a Results interpretation: Verified all documentation Verification and Attestation of Medical Student E/M Service A medical student performed and documented this service in my presence. I reviewed and verified all information documented by the medical student and made modifications to such information, when appropriate. I personally performed the physical exam and medical decision making. Hafsa Judge Jun 29, 2022,04:57 JENNIFER HUITRON Jun 28, 2022 10:56 HAFSA JUDGE DO Jun 29, 2022 04:57"
--- NOTE | 2022-06-28 12:07 | Tele-ICU Progress Note ---
Subjective Date Seen by a Provider: Jun 28, 2022 Subjective/Events-last exam (Tele-ICU Physician , Progress Note ) Service provided via interactive audio and video telecommunications E-CARE system to a patient admitted to ICU bed in [facility]. Patient is seen today due to persistent need of ICU care Available chart/ vitals / labs / Images reviewed Video assessment done using teleICU camera, rest of exam as per RN Discussed with Tony Subjective: Respiratory significantly improved. Off Bipap. Remains in Afib however rate controlled. No c/o, no c/p or SOB. A/P Neuro: Stable, back to baseline mental status Resp: Acute resp failure: Improved. ABG with resolution of hypercapnia. Off Bipap. Currently tolerating 2L NC. Cont to wean. Ok to space duonebs to Q6 and transition back to MDI CV: Afib rate controlled. Now on PO meds. AC with eliquis -s/p LESTER with cardioversion 06/25/22 GI: No issues Renal: No issues. Hyponatremia resolved. Endo: DM-cont SSI PPx: SCD Plans in collaboration with bedside consultants and IM MDs. Discussed with RN to reach out if any questions or concerns Case and care daily discussed on multidisciplinary rounds (RN, PharmD, Supervisor Scrap Preparation, Respiratory Therapy, match up worker) A total of 25 minutes of critical care time was devoted to this patient today, required to treat and/or prevent further deterioration of critical care condition (as above). I am remotely monitoring this patient from another state. I am unable to do the bedside exam, and history/physical and pertinent information is taken from other notes in the computer and bedside staff. Sepsis Event Evaluation Height, Weight, BMI Height: 5'11.00" Weight: 176lbs. 1.6oz. 79.300466vf; 20.37 BMI Method: Focused Exam Time of Focused Exam: 07:30 Exam Exam Patient acknowledged, consented, and participated in this virtual visit which was conducted using real time audio/video Vital Signs Date Time Temp Pulse Resp B/P (MAP) Pulse Ox O2 Delivery O2 Flow Rate FiO2 06/28/22 11:27 36.1 06/28/22 10:00 85 25 104/69 (81) 93 Nasal Cannula 1.00 06/28/22 09:00 98 25 95/57 (70) 94 Nasal Cannula 1.00 06/28/22 08:06 36.3 06/28/22 08:05 Nasal Cannula 1.00 06/28/22 08:01 100 Nasal Cannula 2.00 06/28/22 08:01 100 Nasal Cannula 2.00 06/28/22 08:00 92 Nasal Cannula 1.00 06/28/22 08:00 96 22 113/59 (77) 100 Nasal Cannula 2.00 06/28/22 07:00 98 24 120/78 (92) 99 Nasal Cannula 2.00 06/28/22 07:00 98 06/28/22 06:00 85 25 111/72 (85) 100 Nasal Cannula 2.00 06/28/22 05:00 97 20 99/72 (81) 100 Nasal Cannula 2.00 06/28/22 04:00 36.3 103 16 105/71 (82) 100 Nasal Cannula 2.00 06/28/22 04:00 100 Nasal Cannula 2.00 06/28/22 03:00 100 36 128/83 (98) 100 Nasal Cannula 2.00 06/28/22 02:00 99 30 112/91 (98) 92 Nasal Cannula 2.00 06/28/22 01:56 100 Nasal Cannula 2.00 06/28/22 01:04 98 06/28/22 01:00 93 28 126/92 (103) 97 Nasal Cannula 2.00 06/28/22 00:00 101 27 102/83 (89) 91 Nasal Cannula 2.00 06/27/22 23:25 36.8 Nasal Cannula 2.00 06/27/22 23:00 109 30 104/75 (85) 99 Nasal Cannula 2.00 06/27/22 23:00 100 Nasal Cannula 2.00 06/27/22 22:22 Nasal Cannula 2.00 06/27/22 22:21 100 Nasal Cannula 2.00 06/27/22 22:00 106 32 112/95 (101) 97 Nasal Cannula 0.50 06/27/22 21:00 116 27 113/74 (87) 97 Nasal Cannula 0.50 06/27/22 20:00 99 27 107/66 (80) 96 Nasal Cannula 0.50 06/27/22 19:15 99 Nasal Cannula 0.50 06/27/22 19:08 101 06/27/22 19:01 100 Room Air 06/27/22 19:00 36.6 95 29 119/96 (104) 99 Nasal Cannula 0.50 06/27/22 18:26 Nasal Cannula 0.50 06/27/22 18:00 99 30 129/63 (85) 92 Nasal Cannula 1.00 06/27/22 17:00 93 28 117/67 (84) 97 Nasal Cannula 1.00 06/27/22 16:00 97 Nasal Cannula 0.50 06/27/22 16:00 101 27 132/89 (103) 91 Nasal Cannula 1.00 06/27/22 16:00 36.4 06/27/22 15:30 100 Room Air 06/27/22 15:00 102 20 131/88 (102) 100 Nasal Cannula 1.00 06/27/22 14:00 85 25 112/79 (90) 100 Nasal Cannula 1.00 06/27/22 13:00 117 06/27/22 13:00 117 24 121/90 (100) 99 Nasal Cannula 1.00 I & O 06/28/22 07:00 Intake Total 750 ml Output Total 3300 ml Balance -2550 ml Height & Weight Height: 5'11.00" Weight: 176lbs. 1.6oz. 79.678076py; 20.37 BMI Method: General Appearance: No Apparent Distress, WD/WN HEENT: Pharynx Normal, Moist Mucous Membranes Neck: Non Tender Respiratory: Chest Non Tender, No Accessory Muscle Use, No Respiratory Distress, Rhonci (mild), Wheezing Cardiovascular: No Murmur, Normal Peripheral Pulses, Irregularly Irregular Capillary Refill: Less Than 3 Seconds Gastrointestinal: normal bowel sounds, non tender Extremity: Normal Capillary Refill, Normal Inspection, Non Tender, No Calf Tenderness Neurologic/Psychiatric: Alert, No Motor/Sensory Deficits, Other (Oriented to self and place, not time) Skin: Normal Color, Warm/Dry Lymphatic: No Adenopathy Results Lab Laboratory Tests 06/27/22 04:22 06/28/22 04:17 Assessment/Plan Assessment/Plan . SANAM BLACKWOOD MD Jun 28, 2022 12:07
--- NOTE | 2022-06-28 13:47 | Physical Therapy Evaluation ---
PT Evaluation-General Medical Diagnosis Admission Date Jun 19, 2022 at 10:33 Medical Diagnosis: Acute hypercapneic hypoxic respiratory failure Onset Date: Jun 19, 2022 Therapy Diagnosis Therapy Diagnosis: Gait deficit, strength deficit Height/Weight Height (Feet): 5 Height (Inches): 11.00 Weight (Pounds): 176 Weight (Ounces): 1.6 Precautions Precautions/Isolations: Fall Prevention, Standard Precautions Weight Bear Status Right Lower Extremity: Right Full Weight Bearing Left Lower Extremity: Left Full Weight Bearing Referral Physician: Dr. Key Reason for Referral: Evaluation/Treatment Medical History Pertinent Medical History: Atrial Fib, Alcoholism, CABG, CAD, COPD, GERD, HTN, [place] Reviewed History: Yes Social History Home: Single Level Current Living Status: Spouse Entry Into Home: Stairs With Railing PT Steps Into Home: 5 Prior Prior Level of Function SCALE: Activities may be completed with or without assistive devices. 2-Oydoznynjg-ukotnkx completes the activity by him/herself with no assistance from a helper. 5-Set-up or Clean-up Assistance-helper sets up or cleans up; patient completes activity. [place] assists only prior to or following the activity. 4-Supervision or Touching Assistance-helper provides verbal cues and/or touching/steadying and/or contact guard assistance as patient completes activity. Assistance may be provided throughout the activity or intermittently. 3-Partial/Moderate Assistance-helper does LESS THAN HALF the effort. [place] lifts, holds or supports trunk or limbs, but provides less than half the effort. 2-Substantial/Maximal Assistance-helper does MORE THAN HALF the effort. [place] lifts or holds trunk or limbs and provides more than half the effort. 2-Dujmilmuh-whaiiq does ALL the effort. Patient does none of the effort to complete the activity. Or, the assistance of 2 or more helpers is required for the patient to complete the activity. If activity was not attempted, code reason: 7-Patient Refused. 9-Not Applicable-not attempted and the patient did not perform the activity before the current illness, exacerbation or injury. 10-Not Attempted due to Environmental Limitations-(lack of equipment, weather restraints, etc.). 88-Not Attempted due to Medical Conditions or Safety Concerns. Bed Mobility: 6 Transfers (B,C,W/C): 6 Gait: 6 Stairs: 6 Indoor Mobility (Ambulation): Independent Stairs: Independent Prior Devices Use: Walker PT Evaluation-Current Subjective Patient lying in bed upon PT arrival, agreeable to treatment but he is very fearful due to his breathing. Patient rates pain at 0/10. Objective Patient Orientation: Person, Place, Time, Situation Attachments: Oxygen, Myers Catheter, IV ROM/Strength ROM Lower Extremities WFLs BLEs all planes Strength Lower Extremities 3+/5 BLEs all planes; sats declined significantly with MMT Sensory Vision: Wears Glasses Hearing: Impaired Sensation Right Lower Extremit: Impaired Sensation Left Lower Extremity: Impaired Transfers Roll Left to Right (QC): 3 Sit to Lying (QC): 3 Lying to Sitting/Side of Bed(Q: 3 Sit to Stand (QC): 3 Gait Does the Patient Walk?: No and Walking Goal IS indicated Mode of Locomotion: Walk Anticipated Mode of Locomotion: Walk Balance Sitting Static: Fair Sitting Dynamic: Fair Standing Static: Poor Standing Dynamic: Poor Assessment/Needs Patient fearful of his breathing and sats dropping. He performs all bed mobility and transfers with mod A. Patient sats declined to 81% on 8 L via nasal cannula. Patient switched to mask by nurse and new O2 monitor applied. O2 sats increased to 100%. However during mobility, with sit to stand sats declined to 94%. Patient in bed post treatment with all needs met, nursing notified, and call light in hand. Rehab Potential: Fair PT [place] Goals [place] Goals PT Prison Goals Time Frame: Jul 09, 2022 Roll Left & Right (QC): 6 Sit to Lying (QC): 6 Lying-Sitting on Side/Bed(QC): 6 Sit to Stand (QC): 6 Chair/Ijy-dv-Luhnm Xfer(QC): 6 Toilet Transfer (QC): 6 Does the Patient Walk: Yes Walk 10 feet (QC): 6 Walk 50ft with 2 Turns (QC): 6 Walk 150 ft (QC): 4 1 Step (curb) (QC): 3 4 Steps (QC): 3 PT Plan Problem List Problem List: Activity Tolerance, Functional Strength, Safety, Balance, Gait, Transfer, Bed Mobility, ROM Treatment/Plan Treatment Plan: Continue Plan of Care Treatment Plan: Bed Mobility, Education, Functional Activity Yoanna, Functional Strength, Group Therapy, Gait, Safety, Therapeutic Exercise, Transfers Treatment Duration: Jul 10, 2022 Frequency: 6 times per week Estimated Hrs Per Day: .25 hour per day Patient and/or Family Agrees t: Yes Safety Risks/Education Patient Education: Transfer Techniques Teaching Recipient: Patient Teaching Methods: Demonstration, Discussion Response to Teaching: Verbalize Understanding, Return Demonstration Time Time In: 1320 Time Out: 1350 DATE: Jun 28, 2022 Total Billed Treatment Time: 30 Total Billed Treatment Visit, BROCK WONG JOHN A PT Jun 28, 2022 13:47
[2022-06-28] MEDS: ONDANSETRON 4 MG/2 ML (SDV) Z0FRAN IV PRN (14:49)
--- NOTE | 2022-06-28 15:29 | Occupational Therapy Eval ---
"OT Evaluation-General/PLF Medical Diagnosis Admission Date Jun 19, 2022 at 10:33 Medical Diagnosis: Acute hypercapneic hypoxic respiratory failure Onset Date: Jun 19, 2022 Therapy Diagnosis Therapy Diagnosis: weakness Height/Weight Height (Feet): 5 Height (Inches): 11.00 Weight (Pounds): 176 Weight (Ounces): 1.6 Precautions Precautions/Isolations: Fall Prevention, Standard Precautions Weight Bear Status Weight Bearing Restriction: Full Weight Bearing Referral Physician: Dr. Key Referral Reason: Evaluation/Treatment Medical History Pertinent Medical History: Atrial Fib, Alcoholism, CABG, CAD, COPD, GERD, HTN, [place] Current History This is a 71yoWM clinic patient of [facility] who has a h/o alcoholism and respiratory failure who presented to the ER via EMS due to found down at home. His alcohol level was 0 and he is a heavy user of alcohol. Patient was noted to have CO2 narcosis requiring biPAP and multipl doctors witnessed the conversation of DNR/DNI per . ABG repeat appears worse and patient has a very poor prognosis. Treating for AECOPD and PNA. He is oriented to self and place but not time. He was on 1 L O2 with O2 saturation of 95%. This is an improvement from yesterday. ABG yesterday afternoon revealed 7.45 | 64 | 78. He continues to be in atrial fibrillation but appears to be rate controlled as of this time. He has good urine output and reports good appetite. He reports continued SOB and cough, but denies LH, CP, palpitations, abd pain, N/V/D. Patient reports several falls and intoxication episodes where twin brother is required to assist in recovery from floor. 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 OT educated patient on setting of Inpatient rehab is for physical, occupational and speech. Social History Home: Single Level Current Living Status: Spouse Entry Into Home: Stairs With Railing Steps Into Home: 5 ADL-Prior Level of Function SCALE: Activities may be completed with or without assistive devices. 8-Jrkgmnfnan-rgfdfmn completes the activity by him/herself with no assistance from a helper. 5-Set-up or Clean-up Assistance-helper sets up or cleans up; patient completes activity. [place] assists only prior to or following the activity. 4-Supervision or Touching Assistance-helper provides verbal cues and/or touching/steadying and/or contact guard assistance as patient completes activity. Assistance may be provided throughout the activity or intermittently. 3-Partial/Moderate Assistance-helper does LESS THAN HALF the effort. [place] lifts, holds or supports trunk or limbs, but provides less than half the effort. 2-Substantial/Maximal Assistance-helper does MORE THAN HALF the effort. [place] lifts or holds trunk or limbs and provides more than half the effort. 1-Ubqzivnnd-zrmqvq does ALL the effort. Patient does none of the effort to complete the activity. Or, the assistance of 2 or more helpers is required for the patient to complete the activity. If activity was not attempted, code reason: 7-Patient Refused. 9-Not Applicable-not attempted and the patient did not perform the activity before the current illness, exacerbation or injury. 10-Not Attempted due to Environmental Limitations-(lack of equipment, weather restraints, etc.). 88-Not Attempted due to Medical Conditions or Safety Concerns. Self Care: Needed Some Help Functional Cognition: Needed Some Help OT Current Status Subjective Agreeable to OT, feels SOA however 02 between 95-100% w/ 1-2 liters Pain Comment: facial bruising Mental Status/Objective Patient Orientation: Person, Place, Time, Situation Attachments: Myers Catheter, IV, Oxygen, SCD's, Telemetry Current Dentures/Partials: Yes Upper Extremity ROM BUE ROM WFLS Upper Extremity Strength 4/5 BUE grossly ADL-Treatment Eating (QC): 5 Oral Hygiene (QC): 4 Shower/Bathe Self (QC): 88 Upper Body Dressing (QC): 3 Lower Body Dressing (QC): 3 On/Off Footwear (QC): 3 (LOB sitting EOB) Toileting Hygiene (QC): 3 Education OT Patient Education: Correct positioning, Modified ADL techniques, Progress toward Goal/Update tx plan, Purpose of tx/functional activities, Reviewed precautions, Rehab process, Safety issues, Transfer techniques Teaching Recipient: Patient Teaching Methods: Demonstration, Discussion Response to Teaching: Reinforcement Needed OT Fpc Goals Railcar Switcher Goals Eating (QC): 6 Oral Hygiene (QC): 6 Toileting Hygiene (QC): 5 Shower/Bathe Self (QC): 5 Upper Body Dressing (QC): 5 Lower Body Dressing (QC): 5 On/Off Footwear (QC): 6 1=Demonstrate adherence to instructed precautions during ADL tasks. 2=Patient will verbalize/demonstrate understanding of assistive monica christine/modifications for ADL. 3=Patient will improve strength/tolerance for activity to enable patient to perform ADL's. OT Education/Plan Problem List/Assessment Assessment: Decreased Activ Tolerance, Decreased Safety Aware, Impaired Coordination, Impaired Funct Balance, Impaired Self-Care Skills Discharge Recommendations Plan/Recommendations: Continue POC Treatment Plan/Plan of Care Treatment,Training & Education: Yes Patient would benefit from OT for education, treatment and training to promote independence in ADL's, mobility, safety and/or upper extremity function for ADL's. Plan of Care: ADL Retraining, Functional Mobility, Group Exercise/Act as Ind, UE Funct Exercise/Act Treatment Duration: Jul 02, 2022 Frequency: 3 times per week (3-5 times per week) Rehab Potential: Fair Time Start Time: 15:15 Stop Time: 15:37 DATE: Jun 28, 2022 Total Time Billed (hr/min): 22 Billed Treatment Time EVM 17 min ASHLYN MADISON OT Jun 28, 2022 15:29"
[2022-06-28] MEDS: RT-ALBUTEROL/IPRATROPIUM 3 ML (DUONEB) VIAL INH PRN (16:25)
[2022-06-28 16:30] VITALS: BP 126/84
[2022-06-28] MEDS: ACETAMINOPHEN 325 MG TABLET PO PRN (18:32)
[2022-06-29] MEDS: RT-ALBUTEROL/IPRATROPIUM 3 ML (DUONEB) VIAL INH SCH ×3 (02:39→10:18)
[2022-06-29 05:06] LABS: BASOPHILS % (AUTO) 0 % (0-10); EOSINOPHILS # (AUTO) 0.3 10^3/uL (0.0-0.3); EOSINOPHILS % (AUTO) 4 % (0-10); HEMATOCRIT 31 % (40-54); HEMOGLOBIN 10.1 g/dL (13.3-17.7); LYMPHOCYTES # (AUTO) 0.8 10^3/uL (1.0-4.0); LYMPHOCYTES % (AUTO) 11 % (12-44); MEAN CORPUSCULAR HEMOGLOBIN 36 pg (25-34); MEAN CORPUSCULAR HGB CONC 33 g/dL (32-36); MEAN CORPUSCULAR VOLUME 109 fL (80-99); MEAN PLATELET VOLUME 9.1 fL (9.0-12.2); MONOCYTES # (AUTO) 0.8 10^3/uL (0.0-1.0); MONOCYTES % (AUTO) 11 % (0-12); NEUTROPHILS # (AUTO) 5.5 10^3/uL (1.8-7.8); NEUTROPHILS % (AUTO) 73 % (42-75); PLATELET COUNT 236 10^3/uL (130-400); WHITE BLOOD COUNT 7.5 10^3/uL (4.3-11.0)
[2022-06-29 05:21] LABS: BILIRUBIN,TOTAL 0.4 MG/DL (0.1-1.0); CALCIUM 8.5 MG/DL (8.5-10.1); CREATININE SERUM 0.61 MG/DL (0.60-1.30); MAGNESIUM 1.9 MG/DL (1.6-2.4); TOTAL PROTEIN 5.3 GM/DL (6.4-8.2)
[2022-06-29] MEDS: inSUlin ASPART (NovoLOG) 1 UNIT/0.01 ML (CHARGE PER UNIT) SC SCH ×2 (05:36→11:02)
[2022-06-29] MEDS: MULTIVIT W/MINERALS TAB (THERAGRAN M) PO SCH (06:40)
[2022-06-29] MEDS: RT-BUDESONIDE NEBS 0.5 MG/2ML (PULMICORT) AMP INH SCH (06:58)
[2022-06-29] MEDS: FOLIC ACID 1 MG TAB PO SCH (08:48)
[2022-06-29] MEDS: APIXABAN 5 MG (ELIQUIS) TABLET PO SCH (08:48)
[2022-06-29] MEDS: DOCUSATE SODIUM 100 MG (COLACE) CAP PO SCH (08:48)
[2022-06-29] MEDS: AMIODARONE 200 MG (CORDARONE) TAB PO SCH (08:48)
[2022-06-29] MEDS: SENNOSIDES 8.6 MG (SENOKOT) TAB PO SCH (08:48)
--- NOTE | 2022-06-29 09:47 | Cardiology Progress Note ---
Subjective Date Seen by Provider: Jun 29, 2022 Time Seen by Provider: 09:46 Subjective/Events-last exam Patient was seen at bedside, laying down comfortably, appeared to be converted to sinus rhythm Review of Systems General: No Chills, No Night Sweats; Fatigue, Malaise; No Appetite, No Other HEENT: No Head Aches, No Visual Changes, No Eye Pain, No Ear Pain, No Dysp hasia, No Sinus Congestion, No Post Nasal Drip, No Sore Throat, No Other Pulmonary: No Dyspnea, No Cough, No Pleuritic Chest Pain, No Other Cardiovascular: No: Chest Pain, Palpitations, Orthopnea, Paroxysmal Noc. Dyspnea, Edema, Lt Headedness, Other Focused Exam Time of Focused Exam: 07:30 Objective-Cardiology Exam Last Set of Vital Signs Vital Signs 06/28/22 06/29/22 16:30 09:00 Pulse 79 Resp 32 B/P (MAP) 103/43 (63) Pulse Ox 100 O2 Delivery Nasal Cannula O2 Flow Rate 3.00 FiO2 28 I&O Intake and Output 06/29/22 00:00 Intake Total 1075 ml Output Total 1525 ml Balance -450 ml Intake Oral 1075 ml Output Urine Total 1525 ml # Bowel Movements 1 General: Alert, Oriented X3, Moderate Distress HEENT: Atraumatic, PERRLA Neck: Supple, No JVD Lungs: Clear to Auscultation, Normal Air Movement Heart: Regular Rate, Normal S1, Normal S2, No Murmurs Abdomen: Normal Bowel Sounds, Soft, No Tenderness, No Masses Extremities: Other (1+ pitting edema bilaterally) Skin: No Rashes Neuro: Normal Speech Psych/Mental Status: Mental Status NL, Mood NL Results Lab Laboratory Tests 06/29/22 04:39 A/P-Cardiology Admission Diagnosis Acute respiratory failure Alcohol withdrawal Coronary artery disease Paroxysmal atrial fibrillation Assessment/Plan Paroxysmal atrial fibrillation with rapid ventricular response History of paroxysmal atrial fibrillation, has been maintained on metoprolol and apixaban as an outpatient Borderline hypotensive Underwent LESTER with electrical cardioversion on June 25, 2022 Had multiple cardioversions after loading with amiodarone without success in maintaining sinus rhythm Appears to be in and out of atrial fibrillation, on June 29, 2022 he seems to be in sinus rhythm. We will continue with amiodarone and Cardizem CD 180 and monitor tolerance and response. Status post acute respiratory failure, acute exacerbation of COPD Breathing better, good urine output response, continue to monitor Alcohol withdrawal, stable at this point Managed by medical team Coronary artery disease, History of coronary stent in 2001, history of CABG, cardiac enzymes are normal, EKG showing sinus rhythm 2D echo done in September 2021 with ejection fraction 55 to 60%. Hypertension, controlled, monitor blood pressure Hyperlipidemia, monitor lipids Hyponatremia, probably secondary to alcoholism, monitor sodium level Acute on chronic metabolic alkalosis, respiratory acidosis. TOM BULL MD Jun 29, 2022 09:47
[2022-06-29] MEDS ORDERED: DILT180C85 PO (11:17)
[2022-06-29] MEDS ORDERED: IPRA3AMP31 INH (11:17)
[2022-06-29] MEDS ORDERED: APIX5TAB PO (11:17)
[2022-06-29] MEDS ORDERED: MULT-1137 PO (11:17)
[2022-06-29] MEDS ORDERED: AMIO200T65 PO (11:17)
--- NOTE | 2022-06-29 11:17 | Discharge Summary ---
"Diagnosis/Chief Complaint Date of Admission Jun 19, 2022 at 10:33 Date of Discharge Discharge Date: Jun 29, 2022 Discharge Diagnosis Acute on Chronic RF w/ hypoxia and hypercapnia -CXR 06/26 revealed bilateral pleural effusions, right greater then left, and atelectasis vs. infiltrate vs. edema @ right lung base. This was worse than CXR on 06/21 despite receiving a 7 day regimen of Cefepime. -Will continue nebulizer treatments and Lasix 40mg IV QD at this time and hold off on abx. Treat underlying afib. -06/27 ABG 7.45|64|78. -Condition appears to be improving. Tolerating 1-2L 02 at this time. Reports being on 2L O2 at home at baseline. Still significant wheezing on exam. Will move from ICU status to 4th floor. Acute COPD Exacerbation -Duoneb breathing treatments. Consider steroids. Afib w/ RVR -Continues to be in Afib despite 3 cardioversion attempts. -Amiodarone 400mg PO BID, Cardizem 180mg PO BID, and Eliquis 5mg PO BID. -Management per cardiology CAD w/ history of CABG Alcohol Withdrawal -CIWA protocol. Condition appears stable at this time. Hyponatremia -IVF and monitor DM type 2 -Insulin sliding scale Debility -PT/OT as able Discharge Summary Discharge Physical Examination Allergies: Coded Allergies: No Known Drug Allergies (Unverified , 12/12/17) Vitals & I&Os Vital Signs Date Time Temp Pulse Resp B/P (MAP) Pulse Ox O2 Delivery O2 Flow Rate FiO2 06/29/22 12:00 100 Nasal Cannula 1.00 06/29/22 11:57 36.5 06/29/22 11:00 77 22 144/88 (106) 06/28/22 16:30 28 General Appearance: Alert, Oriented X3 (subtle poor recall), Cooperative Cardiovascular: Regular Rate Hospital Course Was the Problem List Reviewed?: Yes Hospital Course This patient is a 71 year old male who was admitted to [facility] from 06/19/22-06/29/22 for acute on chronic Respiratory with hypercapnia and hypoxia. ABG on admission was 7.28|96|31. CXR findings indicated Acute COPD exacerbation Vs. Pneumonia and he was treated for both with Nebulizer breathing treatments, steroids, and IV abx. He received a 7 day cefepime regimen during his stay. His condition improved and by the day of discharge he was breathing well on 2L O2 which was his baseline at home prior to admission. During his stay it was deemed that his clinical picture was more consistent with an acute COPD exacerbation versus pneumonia. His stay was complicated by New onset Afib w/ RVR. He failed spontaneous conversion with IV Cardizem drip. and failed electric cardioversion on 3 seperate attempts (06/25, 06/26, 06/27). By the time of discharge he was rate controlled and new cardiac medications initiated by cardiology included amiodarone 400mg PO BID, diltiazem 180mg PO BID, and Eliquis 5mg PO BID. This patient is a heavy drinker and was treated appropriately with Thiamine and folic acid and was on CIWA protocol. He did experience some withdrawal symptoms early on in his stay, but by time of discharge he was not. He does still frequently mention alcohol and his desire to have a beer. We recommend that he take this opportunity to quit. He was seen by PT/OT during his stay and his care was performed in unison with the Tele-ICU team. He is being discharged from the medical floor with plans to go to IRU to help recover from deconditioning associated with his stay. [facility] Labs (last 24 hrs) Laboratory Tests 06/19/22 06:15: White Blood Count 5.4, Red Blood Count 3.42L, Hemoglobin 12.3L, Hematocrit 35L, Mean Corpuscular Volume 103H, Mean Corpuscular Hemoglobin 36H, Mean Corpuscular Hemoglobin Concent 35, Red Cell Distribution Width 11.2, Platelet Count 232, Mean Platelet Volume 9.0, Immature Granulocyte % (Auto) 0, Neutrophils (%) (Auto) 73, Lymphocytes (%) (Auto) 12, Monocytes (%) (Auto) 12, Eosinophils (%) (Auto) 2, Basophils (%) (Auto) 1, Neutrophils # (Auto) 4.0, Lymphocytes # (Auto) 0.6L, Monocytes # (Auto) 0.6, Eosinophils # (Auto) 0.1, Basophils # (Auto) 0.1, Immature Granulocyte # (Auto) 0.0, Erythrocyte Sedimentation Rate 7, Prothrombin Time 12.0L, INR Comment 0.8, Activated Partial Thromboplast Time 27, Sodium Level 120*L, Potassium Level 4.0, Chloride Level 68L, Carbon Dioxide Level 37H, Anion Gap 15H, Blood Urea Nitrogen 4L, Creatinine 0.57L, Estimat Glomerular Filtration Rate 105, BUN/Creatinine Ratio 7, Glucose Level 115H, Lactic Acid Level 1.54, Calcium Level 9.3, Corrected Calcium 9.1, Magnesium Level 1.8, Total Bilirubin 0.7, Aspartate Amino Transf (AST/SGOT) 29, Alanine Aminotransferase (ALT/SGPT) 19, Alkaline Phosphatase 112, Total Creatine Kinase 76, Creatine Kinase MB 7.7*H, Myoglobin 90.2, Troponin I < 0.028, C-Reactive Protein High Sensitivity 0.15, B-Type Natriuretic Peptide 177.9H, Total Protein 7.1, Albumin 4.2, Amylase Level 25, Lipase 12, Acetaminophen Level < 10L, Serum Alcohol < 10, HIV (1&2) Ag and Ab Screen Referral Non-Reactive 06/19/22 06:35: Influenza Type A (RT-PCR) Not Detected, Influenza Type B (RT-PCR) Not Detected, SARS-CoV-2 RNA (RT-PCR) Not Detected 06/19/22 06:42: Blood Gas Puncture Site R RAD, Blood Gas Patient Temperature 35.4, Arterial Bloo d pH 7.31*L, Arterial Blood Partial Pressure CO2 91*H, Arterial Blood Partial Pressure O2 158H, Arterial Blood HCO3 46*H, Arterial Blood Total CO2 49.0*H, Arterial Blood Oxygen Saturation 100, Arterial Blood Base Excess 18.7H, Daryl Test YES-POS, Blood Gas Ventilator Setting NO, Blood Gas Inspired Oxygen 4 06/19/22 06:49: Urine Color YELLOW, Urine Clarity CLEAR, Urine pH 7.5, Urine Specific [place] 1.010L, Urine Protein NEGATIVE, Urine Glucose (UA) NEGATIVE, Urine Ketones TRACEH, Urine Nitrite NEGATIVE, Urine Bilirubin NEGATIVE, Urine Urobilinogen 1.0, Urine Leukocyte Esterase NEGATIVE, Urine RBC (Auto) TRACE-IH, Urine RBC NONE, Urine WBC NONE, Urine Crystals NONE, Urine Bacteria NEGATIVE, Urine Casts NONE, Urine Mucus NEGATIVE, Urine Culture Indicated NO, Urine Opiates Screen NEGATIVE, Urine Oxycodone Screen NEGATIVE, Urine Methadone Screen NEGATIVE, Urine Propoxyphene Screen NEGATIVE, Urine Barbiturates Screen NEGATIVE, Ur Tricyclic Antidepressants Screen NEGATIVE, Urine Phencyclidine Screen NEGATIVE, Urine Amphetamines Screen NEGATIVE, Urine Methamphetamines Screen NEGATIVE, Urine Benzodiazepines Screen NEGATIVE, Urine Cocaine Screen NEGATIVE, Urine Cannabinoids Screen NEGATIVE 06/19/22 09:18: Blood Gas Puncture Site RIGHT RADIAL, Blood Gas Patient Temperature 35.4, Arterial Blood pH 7.25*L, Arterial Blood Partial Pressure CO2 101*H, Arterial Blood Partial Pressure O2 368H, Arterial Blood HCO3 43*H, Arterial Blood Total CO2 46.7*H, Arterial Blood Oxygen Saturation 101H, Arterial Blood Base Excess 15.4H, Daryl Test YES-POS, Blood Gas Ventilator Setting NO, Blood Gas Inspired Oxygen 100 06/19/22 10:33: Lab Scanned Report Referred Lab Report 06/19/22 11:40: Sodium Level 124*L, Potassium Level 4.0, Chloride Level 75L, Carbon Dioxide Level 37H, Anion Gap 12, Blood Urea Nitrogen 4L, Creatinine 0.58L, Estimat Glomerular Filtration Rate 104, BUN/Creatinine Ratio 7, Glucose Level 116H, Calcium Level 9.1 06/19/22 12:19: Blood Gas Puncture Site LEFT BRACHIAL, Blood Gas Patient Temperature 36.0, Arterial Blood pH 7.28*L, Arterial Blood Partial Pressure CO2 96*H, Arterial Blood Partial Pressure O2 31*L, Arterial Blood HCO3 45*H, Arterial Blood Total CO2 47.6*H, Arterial Blood Oxygen Saturation 53L, Arterial Blood Base Excess 17.0H, Daryl Test NA, Blood Gas Ventilator Setting NO, Blood Gas Inspired Oxygen 55 06/19/22 16:20: Sodium Level 127L, Potassium Level 4.9, Chloride Level 77L, Carbon Dioxide Level 34H, Anion Gap 16H, Blood Urea Nitrogen 5L, Creatinine 0.60, Estimat Glomerular Filtration Rate 103, BUN/Creatinine Ratio 8, Glucose Level 141H, Calcium Level 9.1 06/19/22 19:41: Sodium Level 126L, Potassium Level 4.5, Chloride Level 78L, Carbon Dioxide Level 33H, Anion Gap 15H, Blood Urea Nitrogen 6L, Creatinine 0.69, Estimat Glomerular Filtration Rate 99, BUN/Creatinine Ratio 9, Glucose Level 163H, Calcium Level 9.6 06/20/22 00:11: Sodium Level 126L, Potassium Level 4.1, Chloride Level 81L, Carbon Dioxide Level 34H, Anion Gap 11, Blood Urea Nitrogen 7, Creatinine 0.64, Estimat Glomerular Filtration Rate 101, BUN/Creatinine Ratio 11, Glucose Level 182H, Calcium Level 9.1 06/20/22 03:48: Sodium Level 127L, Potassium Level 3.9, Chloride Level 83L, Carbon Dioxide Level 32, Anion Gap 12, Blood Urea Nitrogen 8, Creatinine 0.64, Estimat Glomerular Filtration Rate 101, BUN/Creatinine Ratio 13, Glucose Level 191H, Calcium Level 8.9, White Blood Count 4.9, Red Blood Count 2.85L, Hemoglobin 10.1L, Hematocrit 28L, Mean Corpuscular Volume 100H, Mean Corpuscular Hemoglobin 35H, Mean Corpuscular Hemoglobin Concent 36, Red Cell Distribution Width 11.4, Platelet Count 200, Mean Platelet Volume 9.3, Immature Granulocyte % (Auto) 0, Tasha trophils (%) (Auto) 90H, Lymphocytes (%) (Auto) 3L, Monocytes (%) (Auto) 6, Eosinophils (%) (Auto) 0, Basophils (%) (Auto) 0, Neutrophils # (Auto) 4.4, Lymphocytes # (Auto) 0.2L, Monocytes # (Auto) 0.3, Eosinophils # (Auto) 0.0, Basophils # (Auto) 0.0, Immature Granulocyte # (Auto) 0.0, Neutrophils % (Manual) 91, Lymphocytes % (Manual) 6, Monocytes % (Manual) 2, Band Neutrophils 1, Blood Morphology Comment NORMAL, Corrected Calcium 9.5, Phosphorus Level 1.6L , Magnesium Level 1.8, Total Bilirubin 0.8, Aspartate Amino Transf (AST/SGOT) 17, Alanine Aminotransferase (ALT/SGPT) 14, Alkaline Phosphatase 79, Total Protein 5.5L, Albumin 3.2 06/20/22 05:55: Blood Gas Puncture Site R RAD, Blood Gas Patient Temperature 37, Arterial Blood pH 7.66*H, Arterial Blood Partial Pressure CO2 63H, Arterial Blood Partial Pressure O2 119H, Arterial Blood HCO3 73*H, Arterial Blood Total CO2 74.6*H, Arterial Blood Oxygen Saturation 100, Arterial Blood Base Excess , Daryl Test YES-POS, Blood Gas Ventilator Setting NO, Blood Gas Inspired Oxygen 25% 06/20/22 08:09: Sodium Level 127L, Potassium Level 3.8, Chloride Level 85L, Carbon Dioxide Level 35H, Anion Gap 7, Blood Urea Nitrogen 8, Creatinine 0.62, Estimat Glomerular Filtration Rate 102, BUN/Creatinine Ratio 13, Glucose Level 221H, Calcium Level 8.9 06/20/22 11:29: Glucometer 202H 06/20/22 15:25: Blood Gas Puncture Site RIGHT RADIAL, Blood Gas Patient Temperature 36.1, Arterial Blood pH 7.52H, Arterial Blood Partial Pressure CO2 49H, Arterial Blood Partial Pressure O2 57L, Arterial Blood HCO3 40H, Arterial Blood Total CO2 41.5*H, Arterial Blood Oxygen Saturation 95, Arterial Blood Base Excess 15.4H, Daryl Test YES-POS, Blood Gas Ventilator Setting NO, Blood Gas Inspired Oxygen RA 06/20/22 17:45: Sodium Level 130L, Potassium Level 3.4L, Chloride Level 88L, Carbon Dioxide Level 33H, Anion Gap 9, Blood Urea Nitrogen 7, Creatinine 0.56L, Estimat Glomerular Filtration Rate 105, BUN/Creatinine Ratio 13, Glucose Level 137H, Calcium Level 8.5 06/20/22 20:43: Glucometer 148H 06/21/22 03:51: Sodium Level 130L, Potassium Level 3.3L, Chloride Level 88L, Carbon Dioxide Level 32, Anion Gap 10, Blood Urea Nitrogen 7, Creatinine 0.57L, Estimat Glomerular Filtration Rate 105, BUN/Creatinine Ratio 12, Glucose Level 129H, Calcium Level 8.3L, White Blood Count 12.7H, Red Blood Count 2.72L, Hemoglobin 9.9L, Hematocrit 28L, Mean Corpuscular Volume 103H, Mean Corpuscular Hemoglobin 36H, Mean Corpuscular Hemoglobin Concent 35, Red Cell Distribution Width 12.4, Platelet Count 198, Mean Platelet Volume 9.4, Immature Granulocyte % (Auto) 1, Neutrophils (%) (Auto) 93H, Lymphocytes (%) (Auto) 2L, Monocytes (%) (Auto) 5, Eosinophils (%) (Auto) 0, Basophils (%) (Auto) 0, Neutrophils # (Auto) 11.7H, Lymphocytes # (Auto) 0.2L, Monocytes # (Auto) 0.6, Eosinophils # (Auto) 0.0, Basophils # (Auto) 0.0, Immature Granulocyte # (Auto) 0.1, Corrected Calcium 8.9, Phosphorus Level 2.8, Magnesium Level 1.9, Total Bilirubin 0.6, Aspartate Amino Transf (AST/SGOT) 18, Alanine Aminotransferase (ALT/SGPT) 14, Alkaline Del sphatase 71, Total Protein 5.4L, Albumin 3.2 06/21/22 09:07: Blood Gas Puncture Site LEFT WRIST, Blood Gas Patient Temperature 36.3, Arterial Blood pH 7.47H, Arterial Blood Partial Pressure CO2 55H, Arterial Blood Partial Pressure O2 44L, Arterial Blood HCO3 40H, Arterial Blood Total CO2 41.4*H, Arterial Blood Oxygen Saturation 84L, Arterial Blood Base Excess 14.7H, Daryl Test YES-POS, Blood Gas Ventilator Setting NO, Blood Gas Inspired Oxygen 100 06/21/22 11:27: Glucometer 167H 06/21/22 15:54: Glucometer 139H 06/21/22 21:23: Glucometer 132H 06/22/22 04:33: White Blood Count 11.2H, Red Blood Count 2.78L, Hemoglobin 10.2L, Hematocrit 30L , Mean Corpuscular Volume 107H, Mean Corpuscular Hemoglobin 37H, Mean Corpuscular Hemoglobin Concent 35, Red Cell Distribution Width 12.6, Platelet Count 195, Mean Platelet Volume 9.3, Immature Granulocyte % (Auto) 1, Neutrophils (%) (Auto) 81H, Lymphocytes (%) (Auto) 7L, Monocytes (%) (Auto) 11, Eosinophils (%) (Auto) 0, Basophils (%) (Auto) 0, Neutrophils # (Auto) 9.1H, Lym phocytes # (Auto) 0.8L, Monocytes # (Auto) 1.2H, Eosinophils # (Auto) 0.0, Basophils # (Auto) 0.0, Immature Granulocyte # (Auto) 0.1, Sodium Level 133L, Potassium Level 3.8, Chloride Level 95L, Carbon Dioxide Level 28, Anion Gap 10, Blood Urea Nitrogen 9, Creatinine 0.60, Estimat Glomerular Filtration Rate 103, BUN/Creatinine Ratio 15, Glucose Level 100, Calcium Level 8.7, Corrected Calcium 9.4, Iron Level 71, Total Iron Binding Capacity 215L, Unsaturated Iron Binding Capacity 144, Transferrin % Saturation 33, Ferritin 245.2, Total Bilirubin 0.5, Aspartate Amino Transf (AST/SGOT) 18, Alanine Aminotransferase (ALT/SGPT) 16, Alkaline Phosphatase 70, Total Protein 5.1L, Albumin 3.1L 06/22/22 05:09: Glucometer 105 06/22/22 11:26: Glucometer 174H 06/22/22 15:27: Glucometer 166H 06/22/22 20:41: Glucometer 164H 06/23/22 04:26: White Blood Count 10.2, Red Blood Count 2.73L, Hemoglobin 9.8L, Hematocrit 29L, Mean Corpuscular Volume 107H, Mean Corpuscular Hemoglobin 36H, Mean Corpuscular Hemoglobin Concent 33, Red Cell Distribution Width 12.5, Platelet Count 190, Mean Platelet Volume 9.4, Immature Granulocyte % (Auto) 1, Neutrophils (%) (Auto) 76H, Lymphocytes (%) (Auto) 11L, Monocytes (%) (Auto) 10, Eosinophils (%) (Auto) 3, Basophils (%) (Auto) 0, Neutrophils # (Auto) 7.7, Lymphocytes # (Auto) 1.1, Monocytes # (Auto) 1.1H, Eosinophils # (Auto) 0.3, Basophils # (Auto) 0.0, Immature Granulocyte # (Auto) 0.1, Sodium Level 132L, Potassium Level 4.0, Chloride Level 91L, Carbon Dioxide Level 34H, Anion Gap 7, Blood Urea Nitrogen 12, Creatinine 0.63, Estimat Glomerular Filtration Rate 102, BUN/Creatinine Ratio 19, Glucose Level 100, Calcium Level 8.5, Corrected Calcium 9.5, Total Bilirubin 0.4, Aspartate Amino Transf (AST/SGOT) 15, Alanine Aminotransferase (ALT/SGPT) 15, Alkaline Phosphatase 66, Total Protein 4.8L, Albumin 2.8L 06/23/22 05:28: Glucometer 114H 06/23/22 11:21: Glucometer 160H 06/23/22 16:08: Glucometer 168H 06/23/22 20:00: Glucometer 151H 06/24/22 04:33: White Blood Count 8.4, Red Blood Count 2.67L, Hemoglobin 9.5L, Hematocrit 28L, Mean Corpuscular Volume 105H, Mean Corpuscular Hemoglobin 36H, Mean Corpuscular Hemoglobin Concent 34, Red Cell Distribution Width 12.2, Platelet Count 178, Mean Platelet Volume 9.5, Immature Granulocyte % (Auto) 1, Neutrophils (%) (Auto) 69, Lymphocytes (%) (Auto) 13, Monocytes (%) (Auto) 14H, Eosinophils (%) (Auto) 4, Basophils (%) (Auto) 0, Neutrophils # (Auto) 5.9, Lymphocytes # (Auto) 1.1, Monocytes # (Auto) 1.1H, Eosinophils # (Auto) 0.3, Basophils # (Auto) 0.0, Immature Granulocyte # (Auto) 0.1, Sodium Level 130L, Potassium Level 4.1, Chloride Level 91L, Carbon Dioxide Level 32, Anion Gap 7, Blood Urea Nitrogen 9, Creatinine 0.58L, Estimat Glomerular Filtration Rate 104, BUN/Creatinine Ratio 16, Glucose Level 104, Calcium Level 8.5, Corrected Calcium 9.4, Total Bilirubin 0.4, Aspartate Amino Transf (AST/SGOT) 12, Alanine Aminotransferase (ALT/SGPT) 14, Alkaline Phosphatase 62, Total Protein 4.8L, Albumin 2.9L 06/24/22 06:06: Glucometer 110 06/24/22 11:06: Glucometer 189H 06/24/22 17:07: Glucometer 206H 06/24/22 20:41: Glucometer 145H 06/25/22 03:48: White Blood Count 10.5, Red Blood Count 2.68L, Hemoglobin 9.5L, Hematocrit 29L, Mean Corpuscular Volume 106H, Mean Corpuscular Hemoglobin 35H, Mean Corpuscular Hemoglobin Concent 33, Red Cell Distribution Width 12.5, Platelet Count 198, Mean Platelet Volume 9.8, Immature Granulocyte % (Auto) 1, Neutrophils (%) (Auto) 76H, Lymphocytes (%) (Auto) 9L, Monocytes (%) (Auto) 13H, Eosinophils (%) (Auto) 2, Basophils (%) (Auto) 0, Neutrophils # (Auto) 7.9H, Lymphocytes # (Auto) 0.9L, Monocytes # (Auto) 1.4H, Eosinophils # (Auto) 0.2, Basophils # (A uto) 0.0, Immature Granulocyte # (Auto) 0.1, Sodium Level 133L, Potassium Level 4.4, Chloride Level 92L, Carbon Dioxide Level 34H, Anion Gap 7, Blood Urea Nitrogen 11, Creatinine 0.58L, Estimat Glomerular Filtration Rate 104, BUN/Creatinine Ratio 19, Glucose Level 108H, Calcium Level 8.5, Corrected Calcium 9.4, Total Bilirubin 0.3, Aspartate Amino Transf (AST/SGOT) 11, Alanine Aminotransferase (ALT/SGPT) 14, Alkaline Phosphatase 69, Total Protein 4.9L, Albumin 2.9L 06/25/22 05:32: Glucometer 99 06/25/22 12:32: Glucometer 133H 06/25/22 15:41: Glucometer 161H 06/25/22 20:43: Glucometer 159H 06/26/22 04:12: White Blood Count 8.8, Red Blood Count 2.66L, Hemoglobin 9.6L, Hematocrit 29L, Mean Corpuscular Volume 108H, Mean Corpuscular Hemoglobin 36H, Mean Corpuscular Hemoglobin Concent 33, Red Cell Distribution Width 13.2, Platelet Count 202, Mean Platelet Volume 9.8, Immature Granulocyte % (Auto) 1, Neutrophils (%) (Auto) 74, Lymphocytes (%) (Auto) 8L, Monocytes (%) (Auto) 15H, Eosinophils (%) (Auto) 2, Basophils (%) (Auto) 0, Neutrophils # (Auto) 6.5, Lymphocytes # (Auto) 0.7L, Monocytes # (Auto) 1.3H, Eosinophils # (Auto) 0.2, Basophils # (Auto) 0.0, Immature Granulocyte # (Auto) 0.1, Sodium Level 134L, Potassium Level 4.1, Chloride Level 92L, Carbon Dioxide Level 33H, Anion Gap 9, Blood Urea Nitrogen 8, Creatinine 0.59L, Estimat Glomerular Filtration Rate 104, BUN/Creatinine Ratio 14, Glucose Level 102, Calcium Level 8.5, Corrected Calcium 9.3, Phosphorus Level 4.3, Magnesium Level 2.2, Total Bilirubin 0.3, Aspartate Amino Transf (AST/SGOT) 11, Alanine Aminotransferase (ALT/SGPT) 12, Alkaline Phosphatase 63, Total Protein 5.0L, Albumin 3.0L 06/26/22 11:20: Glucometer 111H 06/26/22 16:58: Glucometer 130H 06/26/22 20:06: Glucometer 124H 06/27/22 04:22: White Blood Count 10.1, Red Blood Count 2.72L, Hemoglobin 9.7L, Hematocrit 29L, Mean Corpuscular Volume 106H, Mean Corpuscular Hemoglobin 36H, Mean Corpuscular Hemoglobin Concent 34, Red Cell Distribution Width 12.8, Platelet Count 213, Mean Platelet Volume 9.6, Immature Granulocyte % (Auto) 1, Neutrophils (%) (Auto) 79H, Lymphocytes (%) (Auto) 5L, Monocytes (%) (Auto) 15H, Eosinophils (%) (Auto) 0, Basophils (%) (Auto) 0, Neutrophils # (Auto) 8.0H, Lymphocytes # (Auto) 0.5L, Monocytes # (Auto) 1.5H, Eosinophils # (Auto) 0.0, Basophils # (Auto) 0.0, Immature Granulocyte # (Auto) 0.1, Neutrophils % (Manual) 78, Lymphocytes % (Manual) 5, Monocytes % (Manual) 15, Eosinophils % (Manual) 2, Hypochromasia SLIGHT, Macrocytosis SLIGHT, Sodium Level 133L, Potassium Level 3.8, Chloride Level 89L, Carbon Dioxide Level 35H, Anion Gap 9, Blood Urea Nitrogen 9, Creatinine 0.60, Estimat Glomerular Filtration Rate 103, BUN/Creatinine Ratio 15, Glucose Level 106H, Calcium Level 8.6, Corrected Calcium 9.4, Phosphorus Level 4.1, Magnesium Level 2.1, Total Bilirubin 0.4, Aspartate Amino Transf (AST/SGOT) 11, Alanine Aminotransferase (ALT/SGPT) 10, Alkaline Phosphatase 61, Total Protein 5.2L, Albumin 3.0L 06/27/22 11:05: Blood Gas Puncture Site L RAD, Blood Gas Patient Temperature 36.2, Arterial Blood pH 7.45H, Arterial Blood Partial Pressure CO2 64H, Arterial Blood Partial Pressure O2 78L, Arterial Blood HCO3 44*H, Arterial Blood Total CO2 45.7*H, Arterial Blood Oxygen Saturation 98, Arterial Blood Base Excess 18.1H, Daryl Test YES-POS, Blood Gas Ventilator Setting NO, Blood Gas Inspired Oxygen 1 L 06/27/22 11:28: Glucometer 117H 06/27/22 16:55: Glucometer 134H 06/27/22 19:43: Glucometer 147H 06/28/22 04:17: White Blood Count 7.5, Red Blood Count 2.76L, Hemoglobin 9.9L, Hematocrit 30L, Mean Corpuscular Volume 107H, Mean Corpuscular Hemoglobin 36H, Mean Corpuscular Hemoglobin Concent 33, Red Cell Distribution Width 12.9, Platelet Count 244, Mean Platelet Volume 9.5, Immature Granulocyte % (Auto) 1, Neutrophils (%) (Auto) 67, Lymphocytes (%) (Auto) 13, Monocytes (%) (Auto) 15H, Eosinophils (%) (Auto) 4, Basophils (%) (Auto) 0, Neutrophils # (Auto) 5.0, Lymphocytes # (Auto) 1.0, Monocytes # (Auto) 1.1H, Eosinophils # (Auto) 0.3, Basophils # (Auto) 0.0, Immature Granulocyte # (Auto) 0.1, Sodium Level 135, Potassium Level 3.6, Chloride Level 88L, Carbon Dioxide Level 37H, Anion Gap 10, Blood Urea Nitrogen 12, Creatinine 0.70, Estimat Glomerular Filtration Rate 99, BUN/Creatinine Ratio 17, Glucose Level 100, Calcium Level 8.7, Corrected Calcium 9.6, Phosphorus Level 4.5, Magnesium Level 2.0, Total Bilirubin 0.3, Aspartate Amino Transf (AST/SGOT) 11, Alanine Aminotransferase (ALT/SGPT) 11, Alkaline Phosphatase 74, Total Protein 5.1L, Albumin 2.9L 06/28/22 06:20: Glucometer 108 06/28/22 11:17: Glucometer 118H 06/28/22 15:53: Glucometer 126H 06/28/22 20:49: Glucometer 119H 06/29/22 04:39: White Blood Count 7.5, Red Blood Count 2.84L, Hemoglobin 10.1L, Hematocrit 31L, Mean Corpuscular Volume 109H, Mean Corpuscular Hemoglobin 36H, Mean Corpuscular Hemoglobin Concent 33, Red Cell Distribution Width 12.5, Platelet Count 236, Mean Platelet Volume 9.1, Immature Granulocyte % (Auto) 1, Neutrophils (%) (Auto) 73, Lymphocytes (%) (Auto) 11L, Monocytes (%) (Auto) 11, Eosinophils (%) (Auto) 4, Basophils (%) (Auto) 0, Neutrophils # (Auto) 5.5, Lymphocytes # (Auto) 0.8L, Monocytes # (Auto) 0.8, Eosinophils # (Auto) 0.3, Basophils # (Auto) 0.0, Immature Granulocyte # (Auto) 0.0, Sodium Level 135, Potassium Level 4.0, Chloride Level 92L, Carbon Dioxide Level 34H, Anion Gap 9, Blood Urea Nitrogen 13, Creatinine 0.61, Estimat Glomerular Filtration Rate 103, BUN/Creatinine Ratio 21, Glucose Level 107H, Calcium Level 8.5, Corrected Calcium 9.3, Magnesium Level 1.9, Total Bilirubin 0.4, Aspartate Amino Transf (AST/SGOT) 10, Alanine Aminotransferase (ALT/SGPT) 11, Alkaline Phosphatase 62, Total Protein 5.3L, Albumin 3.0L 06/29/22 10:34: Glucometer 157H Microbiology 06/19/22 MRSA Screen - Final, Complete MRSA not isolated 06/19/22 Urine Culture - Final, Complete NO GROWTH 06/19/22 Blood Culture - Final, Complete No growth Pending Labs Microbiology Date/Time Source Procedure Growth Status 06/19/22 11:05 Nasal MRSA Screen - Final MRSA not isolated Complete 06/19/22 06:49 Urine U Cath,Nos Urine Culture - Final NO GROWTH Complete 06/19/22 06:30 Peripheral Left Forearm Blood Culture - Final No growth Complete 06/19/22 06:15 Peripheral Rt Ac Blood Culture - Final Staph, Coag Neg ([employer]) Complete Laboratory Tests 06/19/22 06:15: White Blood Count 5.4, Red Blood Count 3.42, Hemoglobin 12.3, Hematocrit 35, Mean Corpuscular Volume 103, Mean Corpuscular Hemoglobin 36, Mean Corpuscular Hemoglobin Concent 35, Red Cell Distribution Width 11.2, Platelet Count 232, Mean Platelet Volume 9.0, Immature Granulocyte % (Auto) 0, Neutrophils (%) (Auto) 73, Lymphocytes (%) (Auto) 12, Monocytes (%) (Auto) 12, Eosinophils (%) (Auto) 2, Basophils (%) (Auto) 1, Neutrophils # (Auto) 4.0, Lymphocytes # (Auto) 0.6, Monocytes # (Auto) 0.6, Eosinophils # (Auto) 0.1, Basophils # (Auto) 0.1, Immature Granulocyte # (Auto) 0.0, Erythrocyte Sedimentation Rate 7, Prothrombin Time 12.0, INR Comment 0.8, Activated Partial Thromboplast Time 27, Sodium Level 120, Potassium Level 4.0, Chloride Level 68, Carbon Dioxide Level 37, Anion Gap 15, Blood Urea Nitrogen 4, Creatinine 0.57, Estimat Glomerular Filtration Rate 105, BUN/Creatinine Ratio 7, Glucose Level 115, Lactic Acid Level 1.54, Calcium Level 9.3, Corrected Calcium 9.1, Magnesium Level 1.8, Total Bilirubin 0.7, Aspartate Amino Transf (AST/SGOT) 29, Alanine Aminotransferase (ALT/SGPT) 19, Alkaline Phosphatase 112, Total Creatine Kinase 76, Creatine Kinase MB 7.7, Myoglobin 90.2, Troponin I < 0.028, C-Reactive Protein High Sensitivity 0.15, B- Type Natriuretic Peptide 177.9, Total Protein 7.1, Albumin 4.2, Amylase Level 25, Lipase 12, Acetaminophen Level < 10, Serum Alcohol < 10, HIV (1&2) Ag and Ab Screen Referral Non-Reactive 06/19/22 06:35: Influenza Type A (RT-PCR) Not Detected, Influenza Type B (RT-PCR) Not Detected, SARS-CoV-2 RNA (RT-PCR) Not Detected 06/19/22 06:42: Blood Gas Puncture Site R RAD, Blood Gas Patient Temperature 35.4, Arterial Blood pH 7.31, Arterial Blood Partial Pressure CO2 91, Arterial Blood Partial Pressure O2 158, Arterial Blood HCO3 46, Arterial Blood Total CO2 49.0, Arterial Blood Oxygen Saturation 100, Arterial Blood Base Excess 18.7, Daryl Test YES- POS, Blood Gas Ventilator Setting NO, Blood Gas Inspired Oxygen 4 06/19/22 06:49: Urine Color YELLOW, Urine Clarity CLEAR, Urine pH 7.5, Urine Specific Constable 1.010, Urine Protein NEGATIVE, Urine Glucose (UA) NEGATIVE, Urine Ketones TRACE, Urine Nitrite NEGATIVE, Urine Bilirubin NEGATIVE, Urine Urobilinogen 1.0, Urine Leukocyte Esterase NEGATIVE, Urine RBC (Auto) TRACE-I, Urine RBC NONE, Urine WBC NONE, Urine Crystals NONE, Urine Bacteria NEGATIVE, Urine Casts NONE, Urine Mucus NEGATIVE, Urine Culture Indicated NO, Urine Opiates Screen NEGATIVE, Urine Oxycodone Screen NEGATIVE, Urine Methadone Screen NEGATIVE, Urine Propoxyphene Screen NEGATIVE, Urine Barbiturates Screen NEGATIVE, Ur Tricyclic Antidepressants Screen NEGATIVE, Urine Phencyclidine Screen NEGATIVE, Urine Amphetamines Screen NEGATIVE, Urine Methamphetamines Screen NEGATIVE, Urine Benzodiazepines Screen NEGATIVE, Urine Cocaine Screen NEGATIVE, Urine Cannabinoids Screen NEGATIVE 06/19/22 09:18: Blood Gas Puncture Site RIGHT RADIAL, Blood Gas Patient Temperature 35.4, Arterial Blood pH 7.25, Arterial Blood Partial Pressure CO2 101, Arterial Blood Partial Pressure O2 368, Arterial Blood HCO3 43, Arterial Blood Total CO2 46.7, Arterial Blood Oxygen Saturation 101, Arterial Blood Base Excess 15.4, Daryl Test YES-POS, Blood Gas Ventilator Setting NO, Blood Gas Inspired Oxygen 100 06/19/22 10:33: Lab Scanned Report Referred Lab Report 06/19/22 11:40: Sodium Level 124, Potassium Level 4.0, Chloride Level 75, Carbon Dioxide Level 37, Anion Gap 12, Blood Urea Nitrogen 4, Creatinine 0.58, Estimat Glomerular Filtration Rate 104, BUN/Creatinine Ratio 7, Glucose Level 116, Calcium Level 9.1 06/19/22 12:19: Blood Gas Puncture Site LEFT BRACHIAL, Blood Gas Patient Temperature 36.0, Arterial Blood pH 7.28, Arterial Blood Partial Pressure CO2 96, Arterial Blood Partial Pressure O2 31, Arterial Blood HCO3 45, Arterial Blood Total CO2 47.6, Arterial Blood Oxygen Saturation 53, Arterial Blood Base Excess 17.0, Daryl Test NA, Blood Gas Ventilator Setting NO, Blood Gas Inspired Oxygen 55 06/19/22 16:20: Sodium Level 127, Potassium Level 4.9, Chloride Level 77, Carbon Dioxide Level 34, Anion Gap 16, Blood Urea Nitrogen 5, Creatinine 0.60, Estimat Glomerular Filtration Rate 103, BUN/Creatinine Ratio 8, Glucose Level 141, Calcium Level 9.1 06/19/22 19:41: Sodium Level 126, Potassium Level 4.5, Chloride Level 78, Carbon Dioxide Level 33, Anion Gap 15, Blood Urea Nitrogen 6, Creatinine 0.69, Estimat Glomerular Filtration Rate 99, BUN/Creatinine Ratio 9, Glucose Level 163, Calcium Level 9.6 06/20/22 00:11: Sodium Level 126, Potassium Level 4.1, Chloride Level 81, Carbon Dioxide Level 34, Anion Gap 11, Blood Urea Nitrogen 7, Creatinine 0.64, Estimat Glomerular Filtration Rate 101, BUN/Creatinine Ratio 11, Glucose Level 182, Calcium Level 9.1 06/20/22 03:48: Sodium Level 127, Potassium Level 3.9, Chloride Level 83, Carbon Dioxide Level 32, Anion Gap 12, Blood Urea Nitrogen 8, Creatinine 0.64, Estimat Glomerular Filtration Rate 101, BUN/Creatinine Ratio 13, Glucose Level 191, Calcium Level 8.9, White Blood Count 4.9, Red Blood Count 2.85, Hemoglobin 10.1, Hematocrit 28, Mean Corpuscular Volume 100, Mean Corpuscular Hemoglobin 35, Mean Corpuscular Hemoglobin Concent 36, Red Cell Distribution Width 11.4, Platelet Count 200, Mean Platelet Volume 9.3, Immature Granulocyte % (Auto) 0, Neutrophils (%) (Auto) 90, Lymphocytes (%) (Auto) 3, Monocytes (%) (Auto) 6, Eosinophils (%) (Auto) 0, Basophils (%) (Auto) 0, Neutrophils # (Auto) 4.4, Lymphocytes # (Auto) 0.2, Monocytes # (Auto) 0.3, Eosinophils # (Auto) 0.0, Basophils # (Auto) 0.0, Immature Granulocyte # (Auto) 0.0, Neutrophils % (Manual) 91, Lymphocytes % (Manual) 6, Monocytes % (Manual) 2, Band Neutrophils 1, Blood Morphology Comment NORMAL, Corrected Calcium 9.5, Phosphorus Level 1.6, Magnesium Level 1.8, Total Bilirubin 0.8, Aspartate Amino Transf (AST/SGOT) 17, Alanine Aminotransferase (ALT/SGPT) 14, Alkaline Phosphatase 79, Total Protein 5.5, Albumin 3.2 06/20/22 05:55: Blood Gas Puncture Site R RAD, Blood Gas Patient Temperature 37, Arterial Blood pH 7.66, Arterial Blood Partial Pressure CO2 63, Arterial Blood Partial Pressure O2 119, Arterial Blood HCO3 73, Arterial Blood Total CO2 74.6, Arterial Blood Oxygen Saturation 100, Arterial Blood Base Excess , Daryl Test YES-POS, Blood Gas Ventilator Setting NO, Blood Gas Inspired Oxygen 25% 06/20/22 08:09: Sodium Level 127, Potassium Level 3.8, Chloride Level 85, Carbon Dioxide Level 3 5, Anion Gap 7, Blood Urea Nitrogen 8, Creatinine 0.62, Estimat Glomerular Filtration Rate 102, BUN/Creatinine Ratio 13, Glucose Level 221, Calcium Level 8.9 06/20/22 11:29: Glucometer 202 06/20/22 15:25: Blood Gas Puncture Site RIGHT RADIAL, Blood Gas Patient Temperature 36.1, Arterial Blood pH 7.52, Arterial Blood Partial Pressure CO2 49, Arterial Blood Partial Pressure O2 57, Arterial Blood HCO3 40, Arterial Blood Total CO2 41.5, Arterial Blood Oxygen Saturation 95, Arterial Blood Base Excess 15.4, Daryl Test YES-POS, Blood Gas Ventilator Setting NO, Blood Gas Inspired Oxygen RA 06/20/22 17:45: Sodium Level 130, Potassium Level 3.4, Chloride Level 88, Carbon Dioxide Level 33, Anion Gap 9, Blood Urea Nitrogen 7, Creatinine 0.56, Estimat Glomerular Filtration Rate 105, BUN/Creatinine Ratio 13, Glucose Level 137, Calcium Level 8.5 06/20/22 20:43: Glucometer 148 06/21/22 03:51: Sodium Level 130, Potassium Level 3.3, Chloride Level 88, Carbon Dioxide Level 32, Anion Gap 10, Blood Urea Nitrogen 7, Creatinine 0.57, Estimat Glomerular Ambrocio tration Rate 105, BUN/Creatinine Ratio 12, Glucose Level 129, Calcium Level 8.3, White Blood Count 12.7, Red Blood Count 2.72, Hemoglobin 9.9, Hematocrit 28, Mean Corpuscular Volume 103, Mean Corpuscular Hemoglobin 36, Mean Corpuscular Hemoglobin Concent 35, Red Cell Distribution Width 12.4, Platelet Count 198, Mean Platelet Volume 9.4, Immature Granulocyte % (Auto) 1, Neutrophils (%) (Auto) 93, Lymphocytes (%) (Auto) 2, Monocytes (%) (Auto) 5, Eosinophils (%) (Auto) 0, Basophils (%) (Auto) 0, Neutrophils # (Auto) 11.7, Lymphocytes # (Auto) 0.2, Monocytes # (Auto) 0.6, Eosinophils # (Auto) 0.0, Basophils # (Auto) 0.0, Immature Granulocyte # (Auto) 0.1, Corrected Calcium 8.9, Phosphorus Level 2.8, Magnesium Level 1.9, Total Bilirubin 0.6, Aspartate Amino Transf (AST/SGOT) 18, Alanine Aminotransferase (ALT/SGPT) 14, Alkaline Phosphatase 71, Total Protein 5.4, Albumin 3.2 06/21/22 09:07: Blood Gas Puncture Site LEFT WRIST, Blood Gas Patient Temperature 36.3, Arterial Blood pH 7.47, Arterial Blood Partial Pressure CO2 55, Arterial Blood Partial Pressure O2 44, Arterial Blood HCO3 40, Arterial Blood Total CO2 41.4, Arterial Blood Oxygen Saturation 84, Arterial Blood Base Excess 14.7, Daryl Test YES-POS, Blood Gas Ventilator Setting NO, Blood Gas Inspired Oxygen 100 06/21/22 11:27: Glucometer 167 06/21/22 15:54: Glucometer 139 06/21/22 21:23: Glucometer 132 06/22/22 04:33: White Blood Count 11.2, Red Blood Count 2.78, Hemoglobin 10.2, Hematocrit 30, Mean Corpuscular Volume 107, Mean Corpuscular Hemoglobin 37, Mean Corpuscular Hemoglobin Concent 35, Red Cell Distribution Width 12.6, Platelet Count 195, Mean Platelet Volume 9.3, Immature Granulocyte % (Auto) 1, Neutrophils (%) (Auto) 81, Lymphocytes (%) (Auto) 7, Monocytes (%) (Auto) 11, Eosinophils (%) (Auto) 0, Basophils (%) (Auto) 0, Neutrophils # (Auto) 9.1, Lymphocytes # (Auto) 0.8, Monocytes # (Auto) 1.2, Eosinophils # (Auto) 0.0, Basophils # (Auto) 0.0, Immature Granulocyte # (Auto) 0.1, Sodium Level 133, Potassium Level 3.8, Chloride Level 95, Carbon Dioxide Level 28, Anion Gap 10, Blood Urea Nitrogen 9, Creatinine 0.60, Estimat Glomerular Filtration Rate 103, BUN/Creatinine Ratio 15, Glucose Level 100, Calcium Level 8.7, Corrected Calcium 9.4, Iron Level 71, Total Iron Binding Capacity 215, Unsaturated Iron Binding Capacity 144, Transferrin % Saturation 33, Ferritin 245.2, Total Bilirubin 0.5, Aspartate Amino Transf (AST/SGOT) 18, Alanine Aminotransferase (ALT/SGPT) 16, Alkaline Phosphatase 70, Total Protein 5.1, Albumin 3.1 06/22/22 05:09: Glucometer 105 06/22/22 11:26: Glucometer 174 06/22/22 15:27: Glucometer 166 06/22/22 20:41: Glucometer 164 06/23/22 04:26: White Blood Count 10.2, Red Blood Count 2.73, Hemoglobin 9.8, Hematocrit 29, Nikki n Corpuscular Volume 107, Mean Corpuscular Hemoglobin 36, Mean Corpuscular Hemoglobin Concent 33, Red Cell Distribution Width 12.5, Platelet Count 190, Mean Platelet Volume 9.4, Immature Granulocyte % (Auto) 1, Neutrophils (%) (Auto) 76, Lymphocytes (%) (Auto) 11, Monocytes (%) (Auto) 10, Eosinophils (%) (Auto) 3, Basophils (%) (Auto) 0, Neutrophils # (Auto) 7.7, Lymphocytes # (Auto) 1.1, Monocytes # (Auto) 1.1, Eosinophils # (Auto) 0.3, Basophils # (Auto) 0.0, Immature Granulocyte # (Auto) 0.1, Sodium Level 132, Potassium Level 4.0, Chloride Level 91, Carbon Dioxide Level 34, Anion Gap 7, Blood Urea Nitrogen 12, Creatinine 0.63, Estimat Glomerular Filtration Rate 102, BUN/Creatinine Ratio 19, Glucose Level 100, Calcium Level 8.5, Corrected Calcium 9.5, Total Bilirubin 0.4, Aspartate Amino Transf (AST/SGOT) 15, Alanine Aminotransferase (ALT/SGPT) 15, Alkaline Phosphatase 66, Total Protein 4.8, Albumin 2.8 06/23/22 05:28: Glucometer 114 06/23/22 11:21: Glucometer 160 06/23/22 16:08: Glucometer 168 06/23/22 20:00: Glucometer 151 06/24/22 04:33: White Blood Count 8.4, Red Blood Count 2.67, Hemoglobin 9.5, Hematocrit 28, Mean Corpuscular Volume 105, Mean Corpuscular Hemoglobin 36, Mean Corpuscular Hemoglobin Concent 34, Red Cell Distribution Width 12.2, Platelet Count 178, Mean Platelet Volume 9.5, Immature Granulocyte % (Auto) 1, Neutrophils (%) (Auto) 69, Lymphocytes (%) (Auto) 13, Monocytes (%) (Auto) 14, Eosinophils (%) (Auto) 4, Basophils (%) (Auto) 0, Neutrophils # (Auto) 5.9, Lymphocytes # (Auto) 1.1, Monocytes # (Auto) 1.1, Eosinophils # (Auto) 0.3, Basophils # (Auto) 0.0, Immature Granulocyte # (Auto) 0.1, Sodium Level 130, Potassium Level 4.1, Chloride Level 91, Carbon Dioxide Level 32, Anion Gap 7, Blood Urea Nitrogen 9, Creatinine 0.58, Estimat Glomerular Filtration Rate 104, BUN/Creatinine Ratio 16, Glucose Level 104, Calcium Level 8.5, Corrected Calcium 9.4, Total Bilirubin 0.4, Aspartate Amino Transf (AST/SGOT) 12, Alanine Aminotransferase (ALT/SGPT) 14, Alkaline Phosphatase 62, Total Protein 4.8, Albumin 2.9 06/24/22 06:06: Glucometer 110 06/24/22 11:06: Glucometer 189 06/24/22 17:07: Glucometer 206 06/24/22 20:41: Glucometer 145 06/25/22 03:48: White Blood Count 10.5, Red Blood Count 2.68, Hemoglobin 9.5, Hematocrit 29, Mean Corpuscular Volume 106, Mean Corpuscular Hemoglobin 35, Mean Corpuscular Hemoglobin Concent 33, Red Cell Distribution Width 12.5, Platelet Count 198, Mean Platelet Volume 9.8, Immature Granulocyte % (Auto) 1, Neutrophils (%) (Auto) 76, Lymphocytes (%) (Auto) 9, Monocytes (%) (Auto) 13, Eosinophils (%) (Auto) 2, Basophils (%) (Auto) 0, Neutrophils # (Auto) 7.9, Lymphocytes # (Auto) 0.9, Monocytes # (Auto) 1.4, Eosinophils # (Auto) 0.2, Basophils # (Auto) 0.0, I mmature Granulocyte # (Auto) 0.1, Sodium Level 133, Potassium Level 4.4, Chloride Level 92, Carbon Dioxide Level 34, Anion Gap 7, Blood Urea Nitrogen 11, Creatinine 0.58, Estimat Glomerular Filtration Rate 104, BUN/Creatinine Ratio 19, Glucose Level 108, Calcium Level 8.5, Corrected Calcium 9.4, Total Bilirubin 0.3, Aspartate Amino Transf (AST/SGOT) 11, Alanine Aminotransferase (ALT/SGPT) 14, Alkaline Phosphatase 69, Total Protein 4.9, Albumin 2.9 06/25/22 05:32: Glucometer 99 06/25/22 12:32: Glucometer 133 06/25/22 15:41: Glucometer 161 06/25/22 20:43: Glucometer 159 06/26/22 04:12: White Blood Count 8.8, Red Blood Count 2.66, Hemoglobin 9.6, Hematocrit 29, Mean Corpuscular Volume 108, Mean Corpuscular Hemoglobin 36, Mean Corpuscular Hemoglobin Concent 33, Red Cell Distribution Width 13.2, Platelet Count 202, Mean Platelet Volume 9.8, Immature Granulocyte % (Auto) 1, Neutrophils (%) (Auto) 74, Lymphocytes (%) (Auto) 8, Monocytes (%) (Auto) 15, Eosinophils (%) (Auto) 2, Basophils (%) (Auto) 0, Neutrophils # (Auto) 6.5, Lymphocytes # (Auto) 0.7, Monocytes # (Auto) 1.3, Eosinophils # (Auto) 0.2, Basophils # (Auto) 0.0, Immature Granulocyte # (Auto) 0.1, Sodium Level 134, Potassium Level 4.1, Chloride Level 92, Carbon Dioxide Level 33, Anion Gap 9, Blood Urea Nitrogen 8, Creatinine 0.59, Estimat Glomerular Filtration Rate 104, BUN/Creatinine Ratio 14, Glucose Level 102, Calcium Level 8.5, Corrected Calcium 9.3, Phosphorus Level 4.3, Magnesium Level 2.2, Total Bilirubin 0.3, Aspartate Amino Transf (AST/SGOT) 11, Alanine Aminotransferase (ALT/SGPT) 12, Alkaline Phosphatase 63, Total Protein 5.0, Albumin 3.0 06/26/22 11:20: Glucometer 111 06/26/22 16:58: Glucometer 130 06/26/22 20:06: Glucometer 124 06/27/22 04:22: White Blood Count 10.1, Red Blood Count 2.72, Hemoglobin 9.7, Hematocrit 29, Mean Corpuscular Volume 106, Mean Corpuscular Hemoglobin 36, Mean Corpuscular Hemoglobin Concent 34, Red Cell Distribution Width 12.8, Platelet Count 213, Mean Platelet Volume 9.6, Immature Granulocyte % (Auto) 1, Neutrophils (%) (Auto) 79, Lymphocytes (%) (Auto) 5, Monocytes (%) (Auto) 15, Eosinophils (%) (Auto) 0, Basophils (%) (Auto) 0, Neutrophils # (Auto) 8.0, Lymphocytes # (Auto) 0.5, Monocytes # (Auto) 1.5, Eosinophils # (Auto) 0.0, Basophils # (Auto) 0.0, Immature Granulocyte # (Auto) 0.1, Neutrophils % (Manual) 78, Lymphocytes % (Manual) 5, Monocytes % (Manual) 15, Eosinophils % (Manual) 2, Hypochromasia SLIGHT, Macrocytosis SLIGHT, Sodium Level 133, Potassium Level 3.8, Chloride Level 89, Carbon Dioxide Level 35, Anion Gap 9, Blood Urea Nitrogen 9, Creatinine 0.60, Estimat Glomerular Filtration Rate 103, BUN/Creatinine Ratio 15, Glucose Level 106, Calcium Level 8.6, Corrected Calcium 9.4, Phosphorus Level 4.1, Magnesium Level 2.1, Total Bilirubin 0.4, Aspartate Amino Transf (AST/SGOT) 11, Alanine Aminotransferase (ALT/SGPT) 10, Alkaline Phosphatase 61, Total Protein 5.2, Albumin 3.0 06/27/22 11:05: Blood Gas Puncture Site L RAD, Blood Gas Patient Temperature 36.2, Arterial Blood pH 7.45, Arterial Blood Partial Pressure CO2 64, Arterial Blood Partial Pressure O2 78, Arterial Blood HCO3 44, Arterial Blood Total CO2 45.7, Arterial Blood Oxygen Saturation 98, Arterial Blood Base Excess 18.1, Daryl Test YES-POS, Blood Gas Ventilator Setting NO, Blood Gas Inspired Oxygen 1 L 06/27/22 11:28: Glucometer 117 06/27/22 16:55: Glucometer 134 06/27/22 19:43: Glucometer 147 06/28/22 04:17: White Blood Count 7.5, Red Blood Count 2.76, Hemoglobin 9.9, Hematocrit 30, Mean Corpuscular Volume 107, Mean Corpuscular Hemoglobin 36, Mean Corpuscular Hemoglobin Concent 33, Red Cell Distribution Width 12.9, Platelet Count 244, Mean Platelet Volume 9.5, Immature Granulocyte % (Auto) 1, Neutrophils (%) (Auto) 67, Lymphocytes (%) (Auto) 13, Monocytes (%) (Auto) 15, Eosinophils (%) (Auto) 4, Basophils (%) (Auto) 0, Neutrophils # (Auto) 5.0, Lymphocytes # (Auto) 1.0, Monocytes # (Auto) 1.1, Eosinophils # (Auto) 0.3, Basophils # (Auto) 0.0, Immature Granulocyte # (Auto) 0.1, Sodium Level 135, Potassium Level 3.6, Chloride Level 88, Carbon Dioxide Level 37, Anion Gap 10, Blood Urea Nitrogen 12, Creatinine 0.70, Estimat Glomerular Filtration Rate 99, BUN/Creatinine Ratio 17, Glucose Level 100, Calcium Level 8.7, Corrected Calcium 9.6, Phosphorus Level 4.5, Magnesium Level 2.0, Total Bilirubin 0.3, Aspartate Amino Transf (AST/SGOT) 11, Alanine Aminotransferase (ALT/SGPT) 11, Alkaline Phosphatase 74, Total Protein 5.1, Albumin 2.9 06/28/22 06:20: Glucometer 108 06/28/22 11:17: Glucometer 118 06/28/22 15:53: Glucometer 126 06/28/22 20:49: Glucometer 119 06/29/22 04:39: White Blood Count 7.5, Red Blood Count 2.84, Hemoglobin 10.1, Hematocrit 31, Mean Corpuscular Volume 109, Mean Corpuscular Hemoglobin 36, Mean Corpuscular Hemoglobin Concent 33, Red Cell Distribution Width 12.5, Platelet Count 236, Mean Platelet Volume 9.1, Immature Granulocyte % (Auto) 1, Neutrophils (%) (Auto) 73, Lymphocytes (%) (Auto) 11, Monocytes (%) (Auto) 11, Eosinophils (%) (Auto) 4, Basophils (%) (Auto) 0, Neutrophils # (Auto) 5.5, Lymphocytes # (Auto) 0.8, Monocytes # (Auto) 0.8, Eosinophils # (Auto) 0.3, Basophils # (Auto) 0.0, Immature Granulocyte # (Auto) 0.0, Sodium Level 135, Potassium Level 4.0, Chloride Level 92, Carbon Dioxide Level 34, Anion Gap 9, Blood Urea Nitrogen 13, Creatinine 0.61, Estimat Glomerular Filtration Rate 103, BUN/Creatinine Ratio 21, Glucose Level 107, Calcium Level 8.5, Corrected Calcium 9.3, Magnesium Level 1.9, Total Bilirubin 0.4, Aspartate Amino Transf (AST/SGOT) 10, Alanine Aminotransferase (ALT/SGPT) 11, Alkaline Phosphatase 62, Total Protein 5.3, Albumin 3.0 06/29/22 10:34: Glucometer 157 Discharge Home Medications: Active Scripts Active Tab-A-Andrei Multivit with Iron (Multivitamin/Iron/Folic Acid) 18 Mg Iron-400 Mcg Tablet 1 Ea PO DAILY@0700 30 Days Diltiazem 24Hr ER (Diltiazem HCl) 180 Mg Cap.er.24h 180 Mg PO DAILY 7 Days Amiodarone HCl 200 Mg Tablet 400 Mg PO BID 7 Days Eliquis (Apixaban) 5 Mg Tablet 5 Mg PO BID 365 Days Iprat-Albut 0.5-3(2.5) mg/3 ml (Ipratropium/Albuterol Sulfate) 0.5 Mg-3 Mg (2.5 Mg Base)/3 Ml Ampul.neb 3 Ml INH [id number] 7 Days Reported Tylenol Extra Strength (Acetaminophen) 500 Mg Tablet 1,000 Mg PO Q8H PRN Aspirin EC (Aspirin) 81 Mg Tablet. 81 Mg PO DAILY Instructions to patient/family Please see electronic discharge instructions given to patient. ALEXANDRA JUDGE DO Jun 29, 2022 11:17"
--- NOTE | 2022-06-29 14:52 | Progress Note ---
"Progress Note Hospital Course This patient is a 71 year old male who was admitted to [facility] from 06/19/22-06/29/22 for acute on chronic Respiratory with hypercapnia and hypoxia. ABG on admission was 7.28|96|31. CXR findings indicated Acute COPD exacerbation Vs. Pneumonia and he was treated for both with Nebulizer breathing treatments, s teroids, and IV abx. He received a 7 day cefepime regimen during his stay. His condition improved and by the day of discharge he was breathing well on 2L O2 which was his baseline at home prior to admission. During his stay it was deemed that his clinical picture was more consistent with an acute COPD exacerbation versus pneumonia. His stay was complicated by New onset Afib w/ RVR. He failed spontaneous conversion with IV Cardizem drip. and failed electric cardioversion on 3 seperate attempts (06/25, 06/26, 06/27). By the time of discharge he was rate controlled and new cardiac medications initiated by cardiology included amiodarone 400mg PO BID, diltiazem 180mg PO BID, and Eliquis 5mg PO BID. This patient is a heavy drinker and was treated appropriately with Thiamine and folic acid and was on CIWA protocol. He did experience some withdrawal symptoms early on in his stay, but by time of discharge he was not. He does still frequently mention alcohol and his desire to have a beer. We recommend that he take this op portunity to quit. He was seen by PT/OT during his stay and his care was performed in unison with the Tele-ICU team. He is being discharged from the medical floor with plans to go to IRU to help recover from deconditioning associated with his stay. JENNIFER HUITRON Jun 29, 2022 14:52"
== END 2022-06-29 12:03 | DRG 189 ==
LOC: EDUNIT# 06:10 → ER 06:12 → ICU 10:33 → 4TH 06-21 15:38 → ICU 06-22 18:57
PROVIDERS: ADMIT Internal Medicine; ATTEND Internal Medicine
PROC: 5A09457 Assistance with Respiratory Ventilation, 24-96 Consecutive Hours, Continuous Positive Airway Pressure (ICD-10-PCS; principal; 2022-06-19)
PROC: 5A2204Z Restoration of Cardiac Rhythm, Single (ICD-10-PCS; 2022-06-25)
PROC: 5A2204Z Restoration of Cardiac Rhythm, Single (ICD-10-PCS; 2022-06-26)
PROC: 5A2204Z Restoration of Cardiac Rhythm, Single (ICD-10-PCS; 2022-06-27)
DX: J96.21 Acute and chronic respiratory failure with hypoxia (principal); F10.239 Alcohol dependence with withdrawal, unspecified; E87.1 Hypo-osmolality and hyponatremia; E87.4 Mixed disorder of acid-base balance; J96.22 Acute and chronic respiratory failure with hypercapnia; Z66 Do not resuscitate; I25.10 Atherosclerotic heart disease of native coronary artery without angina pectoris; Z95.1 Presence of aortocoronary bypass graft; R53.81 Other malaise; I48.0 Paroxysmal atrial fibrillation; E11.65 Type 2 diabetes mellitus with hyperglycemia; D50.9 Iron deficiency anemia, unspecified; I10 Essential (primary) hypertension; Z20.822 Contact with and (suspected) exposure to COVID-19; F17.210 Nicotine dependence, cigarettes, uncomplicated; J43.9 Emphysema, unspecified; Z95.5 Presence of coronary angioplasty implant and graft; K21.9 Gastro-esophageal reflux disease without esophagitis; G89.29 Other chronic pain; M54.9 Dorsalgia, unspecified; I25.2 Old myocardial infarction; E78.00 Pure hypercholesterolemia, unspecified; F41.9 Anxiety disorder, unspecified; F32.A Depression, unspecified
CPT/HCPCS: 36415; 36600; 51702; 70450; 70486; 71045; 71275; 72125; 72128; 72131; 74177; 80048; 80053; 80306; 80320; 80329; 81000; 82150; 82550; 82553; 82728; 82805; 82947; 83540; 83550; 83605; 83690; 83735; 83874; 83880; 84100; 84484; 85007; 85025; 85027; 85610; 85652; 85730; 86141; 87040; 87081; 87088; 87389; 87636; 93005; 93041; 94640; 94660; 94760; 96361; 96365; 96375

== ENCOUNTER 2022-06-29 10:51 | Inpatient (IN) | payer MEDICARE ==
[~2022-06-29] VITALS: Ht 180 cm; Wt 71.8 kg
[~2022-06-29 10:51] MED LIST changes: +ACET-2267 PO
[2022-06-29] MEDS ORDERED: MULT-1137 PO (11:17)
[2022-06-29] MEDS ORDERED: AMIO200T65 PO (11:17)
[2022-06-29] MEDS ORDERED: DILT180C85 PO (11:17)
[2022-06-29] MEDS ORDERED: APIX5TAB PO (11:17)
[2022-06-29] MEDS ORDERED: IPRA3AMP31 INH (11:17)
[2022-06-29] MEDS ORDERED: BISACODYL 10 MG SUPP (DULCOLAX) PR PRN ×2 (11:45→12:45)
[2022-06-29] MEDS ORDERED: CALCIUM CARBONATE 500 MG (TUMS) TAB.CHEW PO PRN ×2 (11:45→12:45)
[2022-06-29] MEDS ORDERED: LOPERAMIDE 2 MG (IMODIUM) TABLET PO PRN (11:45)
[2022-06-29] MEDS ORDERED: ACETAMINOPHEN 325 MG TABLET PO PRN ×2 (11:45→12:45)
[2022-06-29] MEDS ORDERED: diphenhydrAMINE 25 MG TAB (BENADRYL) PO PRN ×2 (11:45→12:45)
[2022-06-29] MEDS ORDERED: LACTULOSE SYRUP 10GM/15ML (ENULOSE) 30ML UDC PO PRN ×2 (11:45→12:45)
[2022-06-29] MEDS ORDERED: DOCUSATE SODIUM 100 MG (COLACE) CAP PO PRN (11:45)
[2022-06-29] MEDS ORDERED: ONDANSETRON 4 MG (ZOFRAN) ORAL DISSOLVE TAB PO PRN (11:45)
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
--- NOTE | 2022-06-29 12:30 | Occupational Therapy Eval ---
OT Evaluation-General/PLF Medical Diagnosis Admission Date Medical Diagnosis: Acute on chronic resp failure with hypoxia Onset Date: Jun 19, 2022 Therapy Diagnosis Therapy Diagnosis: decreased ADL status, weakness Height/Weight Height (Feet): 5 Height (Inches): 11.00 Weight (Pounds): 176 Weight (Ounces): 1.6 Referral Physician: Yesi Mayorga Reason: Evaluation/Treatment Medical History Pertinent Medical History: Atrial Fib, Alcoholism, CABG, CAD, COPD, GERD, HTN, [place] Additional Medical History alcoholism, COPD, afiv, CAD, HTN, GERD, DDD, fxs, anxiety/depression Current History 06/19/22 ED via EMS after being found down at home. Found to have CO2 narcosis requiring admission to hospital. Pt had Afib with RVR while at hospital, s/p 3 cardioversion. Social History Home: Single Level Current Living Status: Spouse Entry Into Home: Stairs With Railing Steps Into Home: 5 ADL-Prior Level of Function SCALE: Activities may be completed with or without assistive devices. 6-Gvxwcmnkfx-njmusqi completes the activity by him/herself with no assistance from a helper. 5-Set-up or Clean-up Assistance-helper sets up or cleans up; patient completes activity. Gentry assists only prior to or following the activity. 4-Supervision or Touching Assistance-helper provides verbal cues and/or touching/steadying and/or contact guard assistance as patient completes activity. Assistance may be provided throughout the activity or intermittently. 3-Partial/Moderate Assistance-helper does LESS THAN HALF the effort. Gentry lifts, holds or supports trunk or limbs, but provides less than half the effort. 2-Substantial/Maximal Assistance-helper does MORE THAN HALF the effort. Gentry lifts or holds trunk or limbs and provides more than half the effort. 9-Hitadelun-qduxtz does ALL the effort. Patient does none of the effort to complete the activity. Or, the assistance of 2 or more helpers is required for the patient to complete the activity. If activity was not attempted, code reason: 7-Patient Refused. 9-Not Applicable-not attempted and the patient did not perform the activity before the current illness, exacerbation or injury. 10-Not Attempted due to Environmental Limitations-(lack of equipment, weather restraints, etc.). 88-Not Attempted due to Medical Conditions or Safety Concerns. ADL PLOF Comments Pt reports IND with ADLs and functional mobility at PLOF, no AD. He occasionally used the cane when he felt weaker or had knee pain. Pt has a tub/shower with SC. Pt sleeps in a regular bed at home or a recliner. O2 2-3L NC at home continuou sly. completes I/ADLs Self Care: Independent Functional Cognition: Independent DME/Equipment: Shower Hose Er Manager, Tub/Shower DME/Equipment Comments owns cane, w/c and walkers Drive Self: No OT Current Status Subjective Pt reports SOB with eating, O2 saturations 97-100% on 3L, OT encouraged pt to take slow deep breaths in through his nose and out through his mouth. Pt feels like he got himself worked up. Pain Numeric Pain Scale: 6 Location: Posterior Location Body Site: Neck Mental Status/Objective Patient Orientation: Person, Confused Attachments: Oxygen Current Glasses/Contacts: No Hearing Aids: No Dentures/Partials: Yes Hand Dominance: Right Upper Extremity ROM WFL Upper Extremity Coordination WFL Upper Extremity Strength grossly 3+/5 BUEs ADL-Treatment Eating (QC): 6 Oral Hygiene (QC): 4 Shower/Bathe Self (QC): 88 (not attempted due to decreased O2 saturation with activity and pt c/o SOB/air hunger) Upper Body Dressing (QC): 5 Lower Body Dressing (QC): 4 On/Off Footwear (QC): 88 (Not attempted due to decrease in O2 saturation with activity, pt c/o SOB and air hunger) Toileting Hygiene (QC): 3 (assist with posterior hygiene, pt able to manage pants up.) Other Treatments OT evaluation complete. Pt's lunch arrived, pt able to eat independently. During meal, pt c/o SOB, O2 saturation at 97-100%. Pt educated on pursed lip breathing, pt stated he felt better after ~30 seconds and feels like he worked himself up. PT evaluation complete. OT/PT cotreat due to skill of 2 clinicians required which a rehabilitation specialist could not perform in order to coordinate UE/LEs, decrease fall risk, and due to pt's limitations in strength, activity tolerance, mobility, transfers, and O2 saturations. OT focused on UE placement, cues for sequencing and safety and ADLs, PT focused on LE placement, gross overall movement, transfers and mobility. Pt transferred supine to sit EOB, O2 saturation at 85%. Pt donned brief, then stood and transferred to recliner, O2 saturation dropped into low 80%'s. Pt required extensive rest breaks due to feeling SOB and to recover O2 saturation back into 90%'s. CATALAN present to take over OT tx, CATALAN and PT present, all needs met. Education OT Patient Education: Correct positioning, Energy conservation, Modified ADL techniques, Progress toward Goal/Update tx plan, Purpose of tx/functional activities, Rehab process Teaching Recipient: Patient Teaching Methods: Discussion Response to Teaching: Verbalize Understanding BIMS CAM BIMS Expression of Ideas and Wants: Without Difficulty Understanding Verbal Content: Understands Brief Interview/Mental Status: Yes IRF DIONICIO BIMS: IRF DIONICIO BIMS Response (Comments) Value Repitition of Three Words Three 3 Recalls Socks Yes, After Cueing (Wear) 1 Recalls Blue Yes, After Cueing (Color) 1 Recalls Bed No, Could Not Recall 0 Year Missed by 2 to 5 Years 1 Month Missed by 6 Days/1 Month 1 Day Correct 1 Total [address] Mental [address] No CAM Mental Status Change/Baseline: 1 Inattention: 1 Disorganized thinkin Altered level of consciousness: 0 OT Short Term Goals Short Term Goals Time Frame: July 22, 2022 Oral hygiene: 5 Toileting hygiene: 4 Shower/bathe self: 4 Lower body dressin Putting on/taking off footwear: 4 OT [facility] Goals Research Coordinator Goals Time Frame: July 29, 2022 Eating (QC): 6 Oral Hygiene (QC): 6 Toileting Hygiene (QC): 6 Shower/Bathe Self (QC): 6 Upper Body Dressing (QC): 6 Lower Body Dressing (QC): 6 On/Off Footwear (QC): 6 Additional Goals: 1-Demonstrate ADL Tasks, 2-Verbalize Understanding, 3- ImproveStrength/Yoanna 1=Demonstrate adherence to instructed precautions during ADL tasks. 2=Patient will verbalize/demonstrate understanding of assistive devices/modifications for ADL. 3=Patient will improve strength/tolerance for activity to enable patient to perform ADL's. OT Education/Plan Problem List/Assessment Assessment: Decreased Activ Tolerance, Decreased Safety Aware, Decreased UE Strength, Impaired Funct Balance, Impaired I ADL's, Impaired Self-Care Skills Discharge Recommendations Plan/Recommendations: Continue POC Equpiment Recommendations-D/C: Extended Bath Bench Treatment Plan/Plan of Care Patient would benefit from OT for education, treatment and training to promote independence in ADL's, mobility, safety and/or upper extremity function for ADL's. Plan of Care: ADL Retraining, Functional Mobility, Group Exercise/Act as Ind, UE Funct Exercise/Act Treatment Duration: July 29, 2022 Frequency: Modified Program (IRF) (24/09) Estimated Hrs Per Day: 1.5 hours per day Agreement: Yes Rehab Potential: Fair Time Start Time: 12:10 (8095-7922 OT evaluation/tx. ) Stop Time: 13:15 (4877-7957 cotreat) DATE: Jun 29, 2022 Total Time Billed (hr/min): 55 Billed Treatment Time 1352-1067 OT eval/tx, 3438-8444 PT eval (not billed), 9730-0214 Cotreat 1, EVM (15'), ADL 3 (40') AMMY NATHAN OT Jun 29, 2022 12:30
--- OUTSIDE RECORDS SUMMARY | 2022-06-29 12:30 | XMS REPORT ---
Author Author [facility] Address Unknown Phone Unavailable Care Team Providers Care Motion Study Engineer Name Role Phone TIERRA KWONG Unavailable PROBLEMS Type Condition ICD9-CM Code [id number] Code Onset Dates Condition S tatus W/U Status Risk SNOMED Code Notes Problem Other emphysema J43.8 confirmed 8743 3001 Problem Essential (primary) hypertension I10 conf irmed [id number] Problem Other chronic pain G89.29 confirmed 8 9918019 Problem History of [place] (myocardial infarction) I25.2 confirmed [id number] Problem Coronary artery disease invo lving [place] coronary artery of [place] heart without angina pectoris I25.10 confirmed 244066 000 Problem Coronary artery disease of n ative artery of [place] heart with stable angina pectoris I25.118 confirmed 335913030 Problem Current moderate episode of major depressive disorder without prior episode F32.1 confirmed 65356950 Problem Acute and chronic respiratory failure with hypoxia J96.21 confirmed [id number] Problem Panlobular emphysema J43.1 confirmed 2527414 Problem Alcohol dependence with intoxication, unspecified F10.229 confirmed Problem COPD exacerbation J44.1 confirmed 19 6663558 Problem Reactive depression F32.9 confirmed 64176244 Problem Alcohol dependence with withdrawal F10.239 c onfirmed 770233088 Problem Emphysema J43.9 confirmed 75355000 Problem Athscl heart disease of [place] coronary artery w/o ang pct rs I25.10 confirmed [id number] ALLERGIES Allergen (clinical drug ingredient) Drug/Non Drug Allergy do cumented on EMR Reaction Allergy Type Onset Date Status Motrin Unknown Drug Allergy Active ENCOUNTERS from 1950 to 2022-05-12 Encounter Location Date Provider [facility] [address] [id number] [facility] [place] [address] May, TIERRA KWONG Other chronic pain G89.29 IMMUNIZATIONS Vaccine Route Administration Date Status 1st Dose HRSA MODERNA, COVID-19, 0.5mL IM Intramuscular May Administered tdap (history) Unknown Dec 12, 2017 Administered SOCIAL HISTORY Sex Assigned At : Social History Observation Description Sex Assigned At Unknown Alcohol Screen (Audit-C) Question Answer Notes Did you have a drink containing alcohol in the past year? No Points 0 Interpretation Negative PHQ2 Question Answer Notes In the last 2 weeks, how often have you had little interest or pleasure in doing things? Not at all In the last 2 weeks, how often have you been feeling down, depressed, or hopeless? Several days Total PHQ2 Score 1 Tobacco use other than smoking: Question Answer Notes Are you an other tobacco user? No REASON FOR REFERRAL No Information VITAL SIGNS No information MEDICATIONS Medication SIG (Take, Route, Frequency, Duration) Notes Start Da te End Date Status dilTIAZem HCl ER 120 MG 1 capsule Orally Once a day for 90 days started by [facility] Aug, Active Nitroglycerin 0.4 MG take one tab with chest pain . may take another at 5minutes. Sublingual 5 times per day for 30 days Active Albuterol Sulfate (2.5 MG/3ML) 0.083% 3 mL as needed b y inhalation route every 6 hrs for 30 days Active Metoprolol Tartrate 25 MG 1 tablet with food Orally Twice a day for 90 days started by [facility] Aug, Active Symbicort 160-4.5 MCG/ACT 2 puffs Inhalation Twice a day for 30 days Nov, Active Isosorbide Mononitrate ER 30 MG 1 tablet in the morning Oral ly Once a day started by [facility] Aug, Active Oxygen 2L as directed inhale as directed Active DuoNeb 0.5-2.5 (3) mg/3ml 3 ml as needed Inhalation every 6 hrs for 90 days Active FLUoxetine HCl 20 MG 1 capsule Orally Once a day for 30 day(s) Dec, Active Nebulizer - as directed Active Acetaminophen 325 MG 1 tablet as needed Orally every 4 hrs for 30 day s Active Gabapentin 300 MG 1 capsule Orally Once a day for 30 day(s) Nov, Active Apixaban 5 mg as directed Orally twice a day for 90 days started by [facility] Active Mucinex OTC Active Albuterol Sulfate HFA 108 (90 Base) MCG/ACT 1 puff as needed Inhalation every 4 hrs for 30 days Apr, Active oxyCODONE-Acetaminophen 5-325 MG 1 tablet as needed Or ally every 6 hrs for 10 days Feb, Active Plavix 75 MG 1 tablet Orally Once a day for 90 days started by [facility] Aug, Active amLODIPine Besylate 10 MG 1 tablet Orally Once a day for 30 day( s) Nov, Active PROCEDURES No Information RESULTS No Results REASON FOR VISIT No Information MEDICAL (GENERAL) HISTORY Type Description Date Medical History CAD Medical History COPD Medical History HTN Medical History irregular heart rhythm Medical History depression Surgical History laparotomy Surgical History right ankle Surgical History carpal tunnel release Surgical History CABG Surgical History PTCA Surgical History right hip fx with repair by Dr Johns Hospitalization History surgeries Hospitalization History mi/stents 08/2019 Hospitalization History pneumonia 05/31 Hospitalization History bowel obstruction 06/2020 Hospitalization History COPD 08/19/2020 Hospitalization History [facility]-chest pain, NSTEMI, new onset afib with rvr, left elbow cellulitis 09/06-09/08/2021 Hospitalization History [facility]_right hip fx with repair , anemia due to acute blood loss, alcohol abuse 09/29-10/14/2021 Goals Section No Information Health Concerns No Information MEDICAL EQUIPMENT No Information MENTAL STATUS No Information FUNCTIONAL STATUS No Information ASSESSMENTS Encounter Date Diagnosis Assessment Notes Treatment Notes Treatm ent Clinical Notes May, Other chronic pain (ICD-10 - G89.29) PLAN OF TREATMENT Medication Medication Name Sig Start Date Stop Date Albuterol Sulfate HFA 108 (90 Base) MCG/ACT 1 puff as needed Inhalation every 4 hrs for 30 days Apr, oxyCODONE-Acetaminophen 5-325 MG 1 tablet as needed Or ally every 6 hrs for 10 days Feb, Albuterol Sulfate (2.5 MG/3ML) 0.083% 3 mL as needed b y inhalation route every 6 hrs for 30 days Symbicort 160-4.5 MCG/ACT 2 puffs Inhalation Twice a day for 30 days Nov, Next Appt Details Provider Name:STORMY CLAY, 2022-05-2 7 10:40:00 AM, [address] [facility], [id number], [place], [address], Insurance Providers Payer Name Payer Address Payer Phone Insured Name Patient Relati onship to Insured Coverage Start Date Coverage End Date Subscriber Number Group Nu mber NGS MEDICARE Part A [facility] [address] [facility] [id number] Luis Armando Montes Self - patient is the insured [id number] MEDICATIONS ADMINISTERED Medication Instructions Date of Administration Dosage Rocephin Sep, 1 g
--- OUTSIDE RECORDS SUMMARY | 2022-06-29 12:30 | XMS REPORT ---
Author Author [facility] Address Unknown Phone Unavailable Care Team Providers Care Procurement Clerk Name Role Phone TIERRA KWONG Unavailable PROBLEMS Type Condition ICD9-CM Code [id number] Code Onset Dates Condition S tatus W/U Status Risk SNOMED Code Notes Problem Other emphysema J43.8 confirmed 8743 3001 Problem Essential (primary) hypertension I10 conf irmed [id number] Problem Other chronic pain G89.29 confirmed 8 6450787 Problem History of [place] (myocardial infarction) I25.2 confirmed 171306056 Problem Coronary artery disease invo lving [place] coronary artery of [place] heart without angina pectoris I25.10 confirmed 205849 000 Problem Coronary artery disease of n ative artery of [place] heart with stable angina pectoris I25.118 confirmed 925638576 Problem Current moderate episode of major depressive disorder without prior episode F32.1 confirmed 95411528 Problem Acute and chronic respiratory failure with hypoxia J96.21 confirmed [id number] Problem Panlobular emphysema J43.1 confirmed 3080149 Problem Alcohol dependence with intoxication, unspecified F10.229 confirmed Problem COPD exacerbation J44.1 confirmed 19 9850687 Problem Reactive depression F32.9 confirmed 51060971 Problem Alcohol dependence with withdrawal F10.239 c onfirmed 581550994 Problem Emphysema J43.9 confirmed 74643898 Problem Athscl heart disease of [place] coronary artery w/o ang pct rs I25.10 confirmed [id number] ALLERGIES Allergen (clinical drug ingredient) Drug/Non Drug Allergy do cumented on EMR Reaction Allergy Type Onset Date Status Motrin Unknown Drug Allergy Active ENCOUNTERS from 1950 to 2022-05-13 Encounter Location Date Provider Diagnosis [facility] [address] [facility] [id number] [place] [address] May, TIERRA KWONG COPD exacerbation J44.1 IMMUNIZATIONS Vaccine Route Administration Date Status tdap (history) Unknown Dec 12, 2017 Administered 1st Dose HRSA MODERNA, COVID-19, 0.5mL IM Intramuscular May Administered SOCIAL HISTORY Sex Assigned At : [...] REASON FOR REFERRAL No Information VITAL SIGNS Height 71 in May, Height-cm 180.34 cm May, Weight 170.0 lbs May, Weight-kg 77.11 kg May, Temperature 97.2 degrees Fahrenheit May, Heart Rate 78 bpm May, Respiratory Rate 22 bpm May, BMI 23.71 kg/m2 May, Blood pressure systolic 118 mmHg May, Blood pressure diastolic 76 mmHg May, MEDICATIONS Medication SIG (Take, Route, Frequency, Duration) Notes Start Da te End Date Status dilTIAZem HCl ER 120 MG 1 capsule Orally Once a day for 90 days started by [facility] Aug, Active Nitroglycerin 0.4 MG take [...] a day for 90 days started by [facility] Aug, Active Symbicort 160-4.5 MCG/ACT 2 puffs Inhalation Twice a day for 30 days Nov, Active Isosorbide Mononitrate ER 30 MG 1 tablet in the morning Oral ly Once a day started by [facility] Aug, Active Oxygen 2L as directed [...] a day for 90 days started by [facility] Active Mucinex OTC Active Albuterol Sulfate HFA 108 (90 Base) MCG/ACT 1 puff as needed Inhalation every 4 hrs for 30 days Apr, Active oxyCODONE-Acetaminophen 5-325 MG 1 tablet as needed Or ally every 6 hrs for 10 days Feb, Active Plavix 75 MG 1 tablet Orally Once a day for 90 days started by [facility] Aug, Active amLODIPine Besylate 10 MG 1 tablet Orally Once a day for 30 day( s) Nov, Active PROCEDURES No Information RESULTS No Results REASON FOR VISIT congestion /cough x 1 month pt states he was in [facility] for [facility] at the beginning of the month/belkis hernández MEDICAL (GENERAL) HISTORY Type Description Date Medical [...] Treatment Notes Treatm ent Clinical Notes May, COPD exacerbation (ICD-10 - J44.1) will treat with 2 week taper of prednisone. will give doxy. mucinex as well. follow upif no improvement. continue oxygen. PLAN OF TREATMENT Medication Medication Name Sig Start Date Stop Date Albuterol Sulfate HFA 108 (90 Base) MCG/ACT 1 puff as needed Inhalation every 4 hrs for 30 days 13 Apr, 2022 oxyCODONE-Acetaminophen 5-325 MG 1 tablet as needed Or ally every 6 hrs for 10 days Feb, Albuterol Sulfate (2.5 MG/3ML) 0.083% 3 mL as needed b y inhalation route every 6 hrs for 30 days Symbicort 160-4.5 MCG/ACT 2 puffs Inhalation Twice a day for 30 days Nov, Treatment Notes Assessment Notes Clinical Notes COPD exacerbation will treat with 2 week taper of prednisone. will give doxy. mucinex as well. follow upif no improvement. continue oxygen. Next Appt Details if not better Reason: Provider Name:SOTRMY CLAY, 2022-05- 7 10:40:00 AM, [address] [facility], [id number], [place], [address], Insurance Providers Payer Name Payer Address Payer Phone Insured Name Patient Relati onship to Insured Coverage Start Date Coverage End Date Subscriber Number Group Nu mber NGS MEDICARE Part A [facility] [address] [facility] [phone] Luis Armando Montes Self - patient is the insured [id number] MEDICATIONS ADMINISTERED Medication Instructions Date of Administration Dosage Rocephin Sep, 1 g
--- OUTSIDE RECORDS SUMMARY | 2022-06-29 12:30 | XMS REPORT ---
Author Author [facility] Address Unknown Phone Unavailable Care Team Providers Care Special Population Paraprofessional Name Role Phone TIERRA KWONG Unavailable PROBLEMS Type Condition ICD9-CM Code [id number] Code Onset Dates Condition S tatus W/U Status Risk SNOMED Code Notes Problem Essential (primary) hypertension I10 conf irmed [id number] Problem History of [place] (myocardial infarction) I25.2 confirmed 738953477 Problem Alcohol dependence with withdrawal F10.239 c onfirmed 552593626 Problem Acute and chronic respiratory failure with hypoxia J96.21 confirmed [id number] Problem Other chronic pain G89.29 confirmed 8 6854625 Problem Panlobular emphysema J43.1 confirmed 8848933 Problem Coronary artery disease invo lving [place] coronary artery of [place] heart without angina pectoris I25.10 confirmed 963555 000 Problem Reactive depression F32.9 confirmed 93516853 ALLERGIES Allergen (clinical drug ingredient) Drug/Non Drug Allergy do cumented on EMR Reaction Allergy Type Onset Date Status Motrin Unknown Drug Allergy Active ENCOUNTERS from 1950 to 2022-06-10 Encounter Location Date Provider Diagnosis [facility] [address] [facility] [id number] [place] [address] Jun, TIERRA KWONG IMMUNIZATIONS Vaccine Route Administration Date Status tdap [...] a day for 90 days started by [facility] Aug, Active Nitroglycerin 0.4 MG [...] a day for 90 days started by [facility] Aug, Active Symbicort 160-4.5 MCG/ACT 2 puffs Inhalation Twice a day for 30 days Nov, Active Isosorbide Mononitrate ER 30 MG 1 tablet in the morning Oral ly Once a day started by [facility] Aug, Active Oxygen 2L as [...] a day for 90 days started by [facility] Active Mucinex OTC Active Albuterol Sulfate HFA 108 (90 Base) MCG/ACT 1 puff as needed Inhalation every 4 hrs for 30 days Apr, Active oxyCODONE-Acetaminophen 5-325 MG 1 tablet as needed Or ally every 6 hrs for 10 days Feb, Active Plavix 75 MG 1 tablet Orally Once a day for 90 days started by [facility] Aug, Active amLODIPine Besylate 10 MG 1 tablet Orally Once a day for 30 day( s) Nov, Active PROCEDURES No Information RESULTS No Results REASON FOR VISIT TCM Call MEDICAL (GENERAL) HISTORY Type Description Date Medical [...] 06/2020 Hospitalization History COPD 08/19/2020 Hospitalization History [facility]-chest pain, NSTEMI, new onset afib with rvr, left elbow cellulitis 09/06-09/08/2021 Hospitalization History [facility]_right hip fx with repair , anemia due to acute blood loss, alcohol abuse 09/29-10/14/2021 Goals Section No Information Health Concerns No Information MEDICAL EQUIPMENT No Information MENTAL STATUS No Information FUNCTIONAL STATUS No Information ASSESSMENTS No Information PLAN OF TREATMENT Medication Medication Name Sig [...] Nov, Next Appt Details Provider Name:STORMY CLAY, 2022-08-11 5 11:00:00 AM, [address] [facility], [id number], [place], [address], Insurance Providers Payer Name Payer Address Payer Phone Insured Name Patient Relati onship to Insured Coverage Start Date Coverage End Date Subscriber Number Group Nu mber NGS MEDICARE Part A [facility] [address] [facility] [phone] Luis Armando Montes Self - patient is the insured [id number] MEDICATIONS ADMINISTERED Medication Instructions Date of Administration Dosage Rocephin Sep, 1 g
--- OUTSIDE RECORDS SUMMARY | 2022-06-29 12:30 | XMS REPORT ---
Author Author [facility] Address Unknown Phone Unavailable Care Team Providers Care Open Source Developer Name Role Phone TIERRA KWONG Unavailable PROBLEMS Type Condition ICD9-CM Code [id number] Code Onset Dates Condition S tatus W/U Status Risk SNOMED Code Notes Problem Essential (primary) hypertension I10 conf irmed [id number] Problem History of [place] (myocardial infarction) I25.2 confirmed 107758966 Problem Alcohol dependence with withdrawal F10.239 c onfirmed 520320156 Problem Acute and chronic respiratory failure with hypoxia J96.21 confirmed 48253663425194410 Problem Other chronic pain G89.29 confirmed 8 2553211 Problem Panlobular emphysema J43.1 confirmed 3818414 Problem Coronary artery disease invo lving [place] coronary artery of [place] heart without angina pectoris I25.10 confirmed 394328 000 Problem Reactive depression F32.9 confirmed 76008580 ALLERGIES Allergen (clinical drug ingredient) Drug/Non Drug Allergy do cumented on EMR Reaction Allergy Type Onset Date Status Motrin Unknown Drug Allergy Active ENCOUNTERS from 1950 to 2022-06-16 Encounter Location Date Provider Diagnosis [facility] [address] [id number] [place] [address] Jun, TIERRA KWONG Other chronic pain G89.29 IMMUNIZATIONS [...] a day for 90 days started by [facility] Aug, Active Nitroglycerin 0.4 MG take one tab with chest pain . may take another at 5minutes. Sublingual 5 times per day for 30 days Active Albuterol Sulfate (2.5 MG/3ML) 0.083% 3 mL as needed b y inhalation route every 6 hrs for 30 days Active Metoprolol Tartrate 25 MG 1 tablet with food Orally Twice a day for 90 days started by [facility] Aug, Active Symbicort 160-4.5 MCG/ACT 2 puffs Inhalation Twice a day for 30 days Nov, Active Isosorbide Mononitrate ER 30 MG 1 tablet in the morning Oral ly Once a day started by [facility] Aug, Active Oxygen 2L as directed inhale [...] a day for 90 days started by [facility] Active Mucinex OTC Active Albuterol Sulfate HFA 108 (90 Base) MCG/ACT 1 puff as needed Inhalation every 4 hrs for 30 days Apr, Active oxyCODONE-Acetaminophen 5-325 MG 1 tablet as needed Or ally every 6 hrs for 10 days 12 Dec, 2022 Active Plavix 75 MG 1 tablet Orally Once a day for 90 days started by [facility] Aug, Active amLODIPine Besylate 10 MG 1 tablet Orally Once a day for 30 day( s) Nov, Active PROCEDURES No Information RESULTS No Results REASON FOR VISIT Controlled Med Refill MEDICAL (GENERAL) HISTORY Type Description Date Medical [...] 06/2020 Hospitalization History COPD 08/19/2020 Hospitalization History [facility]-chest pain, NSTEMI, new onset afib with rvr, left elbow cellulitis 09/06-09/08/2021 Hospitalization History [facility]_right hip fx with repair , anemia due to acute blood loss, alcohol abuse 09/29-10/14/2021 Goals Section No Information Health Concerns No Information MEDICAL EQUIPMENT No Information MENTAL STATUS No Information FUNCTIONAL STATUS No Information ASSESSMENTS Encounter Date Diagnosis Assessment Notes Treatment Notes Treatm ent Clinical Notes Jun, Other chronic pain (ICD-10 - G89.29) PLAN [...] CLAY, 2022-08-11 5 11:00:00 AM, [address] [facility], [id number], [place], [address], Insurance Providers Payer Name Payer Address Payer Phone Insured Name Patient Relati onship to Insured Coverage Start Date Coverage End Date Subscriber Number Group Nu mber NGS MEDICARE Part A [address] [facility] [phone] Luis Armando Montes Self - patient is the insured [id number] MEDICATIONS ADMINISTERED Medication Instructions Date of Administration Dosage Rocephivinod Sep, 1 g
--- OUTSIDE RECORDS SUMMARY | 2022-06-29 12:30 | XMS REPORT ---
Author Author [facility] Address Unknown Phone Unavailable Care Team Providers Care Budget Examiner Name Role Phone TIERRA KWONG Unavailable PROBLEMS Type Condition ICD9-CM Code [id number] Code Onset Dates Condition S tatus W/U Status Risk SNOMED Code Notes Problem Essential (primary) hypertension I10 conf irmed [id number] Problem History of [place] (myocardial infarction) I25.2 confirmed 576992553 Problem Alcohol dependence with withdrawal F10.239 c onfirmed 601374060 Problem Acute and chronic respiratory failure with hypoxia J96.21 confirmed 64100074354187662 Problem Other chronic pain G89.29 confirmed 8 3959878 Problem Panlobular emphysema J43.1 confirmed 9072967 Problem Coronary artery disease invo lving [place] coronary artery of [place] heart without angina pectoris I25.10 confirmed 245069 000 Problem Reactive depression F32.9 confirmed 23401166 ALLERGIES Allergen (clinical drug ingredient) Drug/Non Drug Allergy do cumented on EMR Reaction Allergy Type Onset Date Status Motrin Unknown Drug Allergy Active ENCOUNTERS from 1950 to 2022-06-26 Encounter Location Date Provider Diagnosis [facility] [address] [id number] [place] [address] Jun, TIERRA KWONG History of small bowel obstr uction Z87.19 ; Hospital discharge follow-up Z09 and Panlobular emphysema J43.1 IMMUNIZATIONS Vaccine Route Administration Date Status tdap [...] No Information VITAL SIGNS Height 71 in Jun, Height-cm 180.34 cm Jun, Weight 168.9 lbs Jun, Weight-kg 76.61 kg Jun, Heart Rate 87 bpm Jun, Respiratory Rate 24 bpm Jun, Oximetry 100 % Jun, BMI 23.55 kg/m2 Jun, Blood pressure systolic 130 mmHg Jun, Blood pressure diastolic 76 mmHg Jun, MEDICATIONS Medication SIG (Take, Route, Frequency, Duration) Notes Start Da te End Date Status dilTIAZem HCl ER 120 MG 1 capsule Orally Once a day for 90 days started by [facility] Aug, Active Nitroglycerin 0.4 MG [...] a day for 90 days started by [facility] Aug, Active Symbicort 160-4.5 MCG/ACT 2 puffs Inhalation Twice a day for 30 days Nov, Active Isosorbide Mononitrate ER 30 MG 1 tablet in the morning Oral ly Once a day started by [facility] Aug, Active Oxygen 2L as [...] Orally Once a day for 30 day(s) 14 Nov, 2021 Active Apixaban 5 mg as directed Orally [...] a day for 90 days started by [facility] Aug, Active amLODIPine Besylate 10 MG 1 tablet Orally Once a day for 30 day( s) Nov, Active PROCEDURES No Information RESULTS No Results REASON FOR VISIT Hospital f/u-TCM visit-Cecilia Clark-06/26-06/30/20-partial small bowel obstructi on-records received-[place]. Roomed by Ela Gold MA MEDICAL (GENERAL) HISTORY Type Description Date Medical [...] Treatment Notes Treatm ent Clinical Notes Jun, History of small bowel obstruction (ICD-10 - Z87 .19) resolved. no pain. will have patient follow up with surgeon. Jun, Hospital discharge follow-up (ICD-10 - Z09) notes reviewed. Jun, Panlobular emphysema (ICD-10 - J43.1) will refill meds for copd. contiue o2. PLAN OF TREATMENT Medication Medication Name Sig [...] Nov, Treatment Notes Assessment Notes Clinical Notes History of small bowel obstruction resolved. no pain. will have patient follow up with surgeon. Hospital discharge follow-up notes reviewed. Panlobular emphysema will refill meds for copd. c ontiue o2. Next Appt Details 3 Months Reason:copd Provider Name:STORMY CLAY, 2022-06-1 5 11:00:00 AM, [address] [facility], [id number], [place], [address], Follow Up:3 Monthscopd Insurance Providers Payer Name Payer Address Payer Phone Insured Name Patient Relati onship to Insured Coverage Start Date Coverage End Date Subscriber Number Group Nu mber NGS MEDICARE Part A [facility] [address] [facility] [id number] Luis Armando Montes Self - patient is the insured [id number] MEDICATIONS ADMINISTERED Medication Instructions Date of Administration Dosage Rocephivinod Sep, 1 g
--- OUTSIDE RECORDS SUMMARY | 2022-06-29 12:31 | XMS REPORT ---
Author Author [facility] Address Unknown Phone Unavailable Care Team Providers Care Branch Controller Name Role Phone TIERRA KWONG Unavailable PROBLEMS Type Condition ICD9-CM Code [id number] Code Onset Dates Condition S tatus W/U Status Risk SNOMED Code Notes Problem Other emphysema J43.8 confirmed 8743 3001 Problem Essential (primary) hypertension I10 conf irmed 42070482 Problem Other chronic pain G89.29 confirmed 8 3279269 Problem History of [place] (myocardial infarction) I25.2 confirmed 289926361 Problem Coronary artery disease invo lving [place] coronary artery of [place] heart without angina pectoris I25.10 confirmed 232325 000 Problem Coronary artery disease of [place] artery of [place] heart with stable angina pectoris I25.118 confirmed 882283152 Problem Current moderate episode of major depressive disorder without prior episode F32.1 confirmed 81029447 Problem Acute and chronic respiratory failure with hypoxia J96.21 confirmed 51213774309906838 Problem Panlobular emphysema J43.1 confirmed 3874561 Problem Alcohol dependence with intoxication, unspecified F10.229 confirmed Problem COPD exacerbation J44.1 confirmed 19 6293501 Problem Reactive depression F32.9 confirmed 93819266 Problem Alcohol dependence with withdrawal F10.239 c onfirmed 369243695 Problem Emphysema J43.9 confirmed 67840660 Problem Athscl heart disease of [place] coronary artery w/o ang pct rs I25.10 confirmed 733384740158262 ALLERGIES Allergen (clinical drug ingredient) Drug/Non Drug Allergy do cumented on EMR Reaction Allergy Type Onset Date Status Motrin Unknown Drug Allergy Active ENCOUNTERS from 1950 to 2022-05-05 Encounter Location Date Provider Diagnosis [facility] [address] [id number] [facility] [place] [address] May, TIERRA ELENITA IMMUNIZATIONS Vaccine Route Administration Date Status 1st Dose HRSA DIANNE, COVID-19, 0.5mL IM Intramuscular May Administered tdap [...] a day for 90 days started by [facility] Aug, Active Nitroglycerin 0.4 MG take one tab with chest pain . may take another at 5minutes. Sublingual 5 times per day for 30 days Active Albuterol Sulfate (2.5 MG/3ML) 0.083% 3 mL as needed b y inhalation route every 6 hrs for 30 days Active Metoprolol Tartrate 25 MG 1 tablet with food Orally Twice a day for 90 days started by [facility] Aug, Active Symbicort 160-4.5 MCG/ACT 2 puffs Inhalation Twice a day for 30 days Nov, Active Isosorbide Mononitrate ER 30 MG 1 tablet in the morning Oral ly Once a day started by [facility] Aug, Active Oxygen 2L as directed inhale [...] a day for 90 days started by [facility] Aug, Active amLODIPine Besylate 10 MG 1 tablet Orally Once a day for 30 day( s) Nov, Active PROCEDURES No Information RESULTS No Results REASON FOR VISIT Requests return call MEDICAL (GENERAL) HISTORY Type Description Date Medical [...] Nov, Next Appt Details Provider Name:STORMY CLAY, 2022-03-2 7 10:40:00 AM, [address] [facility], [id number], [place], [address], Insurance Providers Payer Name Payer Address Payer Phone Insured Name Patient Relati onship to Insured Coverage Start Date Coverage End Date Subscriber Number Group Nu mber NGS MEDICARE Part A [facility] [address] [facility] [phone] Luis Armando Montes Self - patient is the insured [id number] MEDICATIONS ADMINISTERED Medication Instructions Date of Administration Dosage Rocephin Sep, 1 g
--- OUTSIDE RECORDS SUMMARY | 2022-06-29 12:31 | XMS REPORT ---
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 Name Role Phone TIERRA KWONG Unavailable PROBLEMS Type Condition ICD9-CM Code INC96-IE Code Onset Dates Condition S tatus W/U Status Risk SNOMED Code Notes Problem Other emphysema J43.8 confirmed 8743 3001 Problem Essential (primary) hypertension I10 conf irmed [id number] Problem Other chronic pain G89.29 confirmed 8 [id number] Problem History of MA (myocardial infarction) I25.2 confirmed [id number] Problem Coronary artery disease invo lving comanche coronary artery of comanche heart without angina pectoris I25.10 confirmed 465534 [id number] Problem 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.118 confirmed [id number] Problem Current moderate episode of major depressive disorder without prior episode F32.1 confirmed 57885108 Problem Acute and chronic respiratory failure with hypoxia J96.21 confirmed [id number] Problem Panlobular emphysema J43.1 confirmed 7780571 Problem Alcohol dependence with intoxication, unspecified F10.229 confirmed Problem COPD exacerbation J44.1 confirmed 19 4753218 Problem Reactive depression F32.9 confirmed 31207584 Problem Alcohol dependence with withdrawal F10.239 c onfirmed 118431830 Problem Emphysema J43.9 confirmed 05934697 Problem Athscl heart disease of comanche coronary artery w/o ang pct rs I25.10 confirmed [id number] ALLERGIES Allergen (clinical drug ingredient) Drug/Non Drug Allergy do cumented on EMR Reaction Allergy Type Onset Date Status Motrin Unknown Drug Allergy Active ENCOUNTERS from 1950 to 2022-05-12 Encounter Location Date Provider Diagnosis [facility] [address] [facility] [address] [id number] [facility] [place] [address] May, TIERRA KWONG Other chronic pain G89.29 IMMUNIZATIONS Vaccine Route Administration Date Status tdap [...] a day for 90 days started by [facility] Aug, Active Nitroglycerin 0.4 MG take [...] a day for 90 days started by [facility] Aug, Active Symbicort 160-4.5 MCG/ACT 2 puffs Inhalation Twice a day for 30 days Nov, Active Isosorbide Mononitrate ER 30 MG 1 tablet in the morning Oral ly Once a day started by [facility] Aug, Active Oxygen 2L as directed [...] a day for 90 days started by [facility] Aug, Active amLODIPine Besylate 10 MG [...] CLAY, 2022-05-2 7 10:40:00 AM, [address] [facility], [id number], [place], [address], Insurance Providers Payer Name Payer Address Payer Phone Insured Name Patient Relati onship to Insured Coverage Start Date Coverage End Date Subscriber Number Group Nu mber NGS MEDICARE Part A [facility] [address] [facility] [id number] Luis Armando Montes Self - patient is the insured [id number] MEDICATIONS ADMINISTERED Medication Instructions Date of Administration Dosage Rocephin Sep, 1 g
[2022-06-29] MEDS ORDERED: LORazepam INJ 2 MG/ML (ATIVAN) VIAL IM/IV PRN (12:45)
[2022-06-29] MEDS ORDERED: polyethylene glycoL POWDER 17 GM (MIRALAX) PACK PO PRN (12:45)
[2022-06-29] MEDS ORDERED: diphenhydrAMINE 50 MG/ML INJ (BENADRYL) IVP PRN (12:45)
[2022-06-29] MEDS ORDERED: ANTACID SUSP 30 ML UDC (MYLANTA) PO PRN (12:45)
[2022-06-29] MEDS ORDERED: SENNA W/DOCUSATE (SENOKOT S) TABLET PO PRN (12:45)
[2022-06-29] MEDS ORDERED: MILK OF MAGNESIA 400 MG/5 ML 30 ML UDC PO PRN (12:45)
[2022-06-29] MEDS ORDERED: ONDANSETRON 4 MG/2 ML (SDV) Z0FRAN IV PRN (12:45)
[2022-06-29] MEDS ORDERED: MELATONIN 3 MG TABLET PO PRN (12:45)
[2022-06-29] MEDS ORDERED: HYDROmorphone 2 MG/ML VIAL (DILAUDID) IV PRN (12:45)
[2022-06-29 13:00] VITALS: BP 144/88
[2022-06-29] MEDS: ALPRAZolam 0.25 MG (XANAX) TAB PO PRN (13:39)
--- NOTE | 2022-06-29 14:16 | Occupational Ther Daily Note ---
OT Current Status-Daily Note Subjective Took over care from OTR/L. Co-treat with PT [phone]), skills of 2 clinicians required to decrease fall risk, increase activity tolerance for daily functional activities, decrease pain to increase overall mobility. PT focusing on transfers, w/c mobility and ambulation while OT focusing on functional mobility and ADLs. See PT notes for O2 levels throughout therapy session. Mental Status/Objective Patient Orientation: Person, Place, Time, Situation Attachments: IV ADL-Treatment Pt very anxious about breathing and needing an albuterol treatment, pt had received treatment just before coming to ARU and nrsg reported that he will be due for another treatment at 1400. Pt took increased time to complete all tasks due to SOA/air hunger. Pt would ask to hold off on completing any movement or task until he 'caught his breath'. Compassionate encouragement give to pt to make him feel at ease with attempting tasks. CGA to min A for ambulation and sit <--> stands. Min A for bed mobility. Pt requires assistance to cleanse buttocks while supporting self using FWW. After session, pt sitting up in bed in chair position. Call light/phone in reach. All needs met in room. Therapy Code Descriptions/Definitions Functional [place] Measure: 0=Not Assessed/NA 4=Minimal Assistance 1=Total Assistance 5=Supervision or Setup 2=Maximal Assistance 6=Modified [place] 3=Moderate Assistance 7=Complete IndependenceSCALE: Activities may be completed with or without assistive devices. 0-Peyoualved-tyfcqfo completes the activity by him/herself with no assistance from a helper. 5-Set-up or Clean-up Assistance-helper sets up or cleans up; patient completes activity. [place] assists only prior to or following the activity. 4-Supervision or Touching Assistance-helper provides verbal cues and/or touching/steadying and/or contact guard assistance as patient completes activity. Assistance may be provided throughout the activity or intermittently. 3-Partial/Moderate Assistance-helper does LESS THAN HALF the effort. [place] lifts, holds or supports trunk or limbs, but provides less than half the effort. 2-Substantial/Maximal Assistance-helper does MORE THAN HALF the effort. [place] lifts or holds trunk or limbs and provides more than half the effort. 9-Gjrjazfse-iqjnpp does ALL the effort. Patient does none of the effort to complete the activity. Or, the assistance of 2 or more helpers is required for the patient to complete the activity. If activity was not attempted, code reason: 7-Patient Refused. 9-Not Applicable-not attempted and the patient did not perform the activity before the current illness, exacerbation or injury. 10-Not Attempted due to Environmental Limitations-(lack of equipment, weather restraints, etc.). 88-Not Attempted due to Medical Conditions or Safety Concerns. OT Short Term Goals Short Term Goals Time Frame: July 22, 2022 Oral hygiene: 5 Toileting hygiene: 4 Shower/bathe self: 4 Lower body dressin Putting on/taking off footwear: 4 OT Residential Goals Residential Goals Time Frame: July 29, 2022 Acute change in mental status: 1 Inattention: 1 Disorganized thinkin Altered level of consciousness: 0 Eating (QC): 6 Oral Hygiene (QC): 6 Toileting Hygiene (QC): 6 Shower/Bathe Self (QC): 6 Upper Body Dressing (QC): 6 Lower Body Dressing (QC): 6 On/Off Footwear (QC): 6 Additional Goals: 1-Demonstrate ADL Tasks, 2-Verbalize Understanding, 3- ImproveStrength/Yoanna 1=Demonstrate adherence to instructed precautions during ADL tasks. 2=Patient will verbalize/demonstrate understanding of assistive devices/modifications for ADL. 3=Patient will improve strength/tolerance for activity to enable patient to perform ADL's. OT Education/Plan Problem List/Assessment Assessment: Decreased Activ Tolerance, Decreased Safety Aware, Impaired Self- Care Skills Discharge Recommendations Plan/Recommendations: Continue POC Treatment Plan/Plan of Care Patient would benefit from OT for education, treatment and training to promote independence in ADL's, mobility, safety and/or upper extremity function for ADL's. Plan of Care: ADL Retraining, Functional Mobility, Group Exercise/Act as Ind, UE Funct Exercise/Act Treatment Duration: July 29, 2022 Frequency: Modified Program (IRF) (24/09) Estimated Hrs Per Day: 1.5 hours per day Agreement: Yes Rehab Potential: Fair Time Start Time: 13:15 Stop Time: 13:45 DATE: Jun 29, 2022 Total Time Billed (hr/min): 30 Billed Treatment Time 1 visit-FA 2 (30 min) ATTILA VÁSQUEZ Jun 29, 2022 14:16
[2022-06-29] MEDS: RT-ALBUTEROL/IPRATROPIUM 3 ML (DUONEB) VIAL INH SCH ×3 (14:57→22:28)
--- NOTE | 2022-06-29 15:09 | Physical Therapy Evaluation ---
PT Evaluation-General Medical Diagnosis Admission Date Jun 29, 2022 at 12:10 Medical Diagnosis: Acute on chronic resp failure with hypoxia Onset Date: Jun 19, 2022 Therapy Diagnosis Therapy Diagnosis: activity tolerance deficits, decreased functional mobility/gait Height/Weight Height (Feet): 5 Height (Inches): 11.00 Weight (Pounds): 176 Weight (Ounces): 1.6 Precautions Precautions/Isolations: Fall Prevention, Standard Precautions, Pressure Ulcer O2 precautions. Weight Bear Status Full Weight Bearing Full Weight Bearing Referral Physician: Yesi Reason for Referral: Evaluation/Treatment Medical History Pertinent Medical History: Atrial Fib, Alcoholism, CABG, CAD, COPD, GERD, HTN, [place] Additional Medical History Emphysema per patient - he wears 3L O2 continuously at home. Reviewed History: Yes Social History Home: Single Level Current Living Status: Spouse Entry Into Home: Stairs With Railing PT Steps Into Home: 5 Prior Prior Level of Function SCALE: Activities may be completed with or without assistive devices. 2-Ouysslhlus-ujlbbcu completes the activity by him/herself with no assistance from a helper. 5-Set-up or Clean-up Assistance-helper sets up or cleans up; patient completes activity. [place] assists only prior to or following the activity. 4-Supervision or Touching Assistance-helper provides verbal cues and/or touching/steadying and/or contact guard assistance as patient completes activity. Assistance may be provided throughout the activity or intermittently. 3-Partial/Moderate Assistance-helper does LESS THAN HALF the effort. [place] lifts, holds or supports trunk or limbs, but provides less than half the effort. 2-Substantial/Maximal Assistance-helper does MORE THAN HALF the effort. [place] lifts or holds trunk or limbs and provides more than half the effort. 8-Rmipjcwpy-wbiwzu does ALL the effort. Patient does none of the effort to complete the activity. Or, the assistance of 2 or more helpers is required for the patient to complete the activity. If activity was not attempted, code reason: 7-Patient Refused. 9-Not Applicable-not attempted and the patient did not perform the activity before the current illness, exacerbation or injury. 10-Not Attempted due to Environmental Limitations-(lack of equipment, weather restraints, etc.). 88-Not Attempted due to Medical Conditions or Safety Concerns. Bed Mobility: 9 (Sleeps in a recliner due to respiratory issues) Transfers (B,C,W/C): 6 Gait: 6 (prn cane use) Stairs: 6 (with railing) Wheelchair Mobility: 9 Indoor Mobility (Ambulation): Independent Stairs: Independent Prior Devices Use: Other-see list below (intermittent cane use. Also has a walker and a w/c available at home. ) PT Evaluation-Current Subjective Patient anxious with air hunger. Repeatedly stated he needed oxygen - would remind patient that he was wearing O2 per n/c at 3L. Pain Comment: some chronic neck/upper chest pain - worse with cough Section J - Health Conditions 1. Rarely or not at all 2. Occasionally 3. Frequently 4. Almost constantly 8. Unable to answer Pain Effect on Sleep: 1 Pain Interference with Therapy: 1 Pain Interference w/Day-to-Day: 1 Pt/Family Goals To return to prior residence Objective Patient Orientation: Person, Place Attachments: Oxygen ROM/Strength ROM Lower Extremities WFL for upright mobility. Strength Lower Extremities MMT of knee extension 4+/5 (B). Ankles 4+/5 (B). Hip flexors 3/5 (B). Sensory Vision: Functional Hearing: Functional Hand Dominance: Right Sensation Right Lower Extremit: Intact Sensation Left Lower Extremity: Intact Transfers Roll Left & Right (QC): 5 Sit to Lying (QC): 4 Lying to Sitting/Side of Bed(Q: 4 Sit to Stand (QC): 3 (min (A) to FWW) Chair/Bga-wx-Pnvxl Xfer(QC): 3 (min (A) with FWW) Toilet Transfer (QC): 88 Car Transfer (QC): 88 Air hunger limits evaluation tasks. Desats with transfers/gait in room -- O2 sats dropped to 86% sitting in recliner with O2 at 3L. Had patient lean forward with elbows on knees and practice pursed-lip breathing with sats improving to 94-96% once breathing slowed and anxiety lessened. Some impulsivity noted with transfers - safety awareness deficit. Recommend chair alarm and bed alarm. Gait Does the Patient Walk?: Yes Mode of Locomotion: Walk Anticipated Mode of Locomotion: Walk Walk 10 feet (QC): 3 (min (A) with portable O2. O2 sats dropped to 84% during gait of 15' in room wiht 3L O2. Rebounded to 92% sitting in recliner, leaning forward with elbows on knees.) Walk 50 ft with 2 Turns(QC): 88 (due to air hunger, desat, activity tolerance deficits.) Walk 150 ft (QC): 88 (due to air hunger, desat, activity tolerance deficits.) Walking 10ft/uneven surface-QC: 88 (due to air hunger, desat, activity tolerance deficits.) Distance: 15' in room Gait Assistive Device: FWW Wheelchair Training Does the Pt Use a Wheelchair?: No Wheel 50 ft with 2 turns (QC): 9 Wheel 150 ft (QC): 9 Stairs 1 Step (curb) (QC): 88 (due to air hunger, desat, activity tolerance deficits.) 4 Steps (QC): 88 (due to air hunger, desat, activity tolerance deficits.) 12 Steps (QC): 88 (due to air hunger, desat, activity tolerance deficits.) Balance Sitting Static: Good Sitting Dynamic: Good Standing Static: Fair Standing Dynamic: Fair Picking up an Object (QC): 88 (due to air hunger, anxiety, desat, activity tolerance deficits.) Treatment Education on pursed-lip breathing to control episodes of SOB and while performing functional upright activities to prevent de-saturation. Assessment/Needs 71 year old male admitted 06/19/21 to hospital with hypoxic respiratory failure. Has significant endurance deficits with hx of emphysema and 3L continuous O2 use at home prior to admission. Required skilled ARU treatment in order to safely regain function prior to return home. Recommend 24/09 treatment plan due to severity of endurance deficits and inability to tolerate 3 hours of therapy at this time. May also benefit from co-treatments due to acuity, requiring 2 skilled therapists to safely address multiple functional issues. Rehab Potential: Fair Post Rehab Potential-Barriers: emphysema pre-morbid Equipment Needs FWW, continue home O2 PT Mcc Goals Fish Frog Or Oyster Farmer Goals PT Fish Frog Or Oyster Farmer Goals Time Frame: Jun 22, 2022 Roll Left to Right (QC): 6 Sit to Lying (QC): 6 Lying-Sitting on Side/Bed(QC): 6 Sit to Stand (QC): 6 (to FWW) Chair/Utj-nk-Qiqly Xfer(QC): 6 (with FWW) Toilet/Commode Transfer (QC): 6 (with FWW) Car Transfer (QC): 5 Does the Patient Walk: Yes Walk 10 feet (QC): 5 (FWW, O2 assist as needed) Walk 10ft-Uneven Surface(QC): 5 (with FWW, O2 assist as needed) Walk 50ft with 2 Turns (QC): 5 (with FWW, O2 assist as needed) Walk 150 ft (QC): 4 (due to severity of endurance deficits, with FWW, O2 assist as needed) Does the Pt use WC or Scooter?: No Wheel 50 feet with 2 turns (QC: 9 Wheel 150 feet: 9 1 Step (curb) (QC): 5 (with FWW with O2 assist as needed) 4 Steps (QC): 5 (with O2 assist and (B) rails) 12 Steps (QC): 9 Picking up an Object (QC): 6 (with walker and 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 and 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 supervisor) PT Plan Problem List Problem List: Activity Tolerance, Functional Strength, Balance, Gait, Transfer, Bed Mobility Treatment/Plan Treatment Plan: Continue Plan of Care Treatment Plan: Bed Mobility, Education, Functional Activity Yoanna, Functional Strength, Group Therapy, Gait, Safety, Therapeutic Exercise, Transfers Treatment Duration: July 20, 2022 Frequency: Modified Program (IRF) Estimated Hrs Per Day: Other (24/09 program, starting with 75 minutes per day, increasing as tolerated to 150 minutes per day) Patient and/or Family Agrees t: Yes Safety Risks/Education Safety Risk Comments: Fall risk, O2 precautions, impulsivity noted on eval Teaching Recipient: Patient Teaching Methods: Demonstration, Discussion Response to Teaching: Reinforcement Needed Pursed-lip breathing to control SOB Discharge Recommendations Therapy Discharge Recommendati: Home & Family, Post Acute PT Barriers to Progress Severe air hunger/emphysema/endurance deficits Time Time In: 1250 (1300 co-treat) Time Out: 1300 (1345 co-treat) DATE: Jun 29, 2022 Total Billed Treatment Time: 55 Total Billed Treatment 12:50-1pm = 10' eval 1pm - 1:45 pm = co-treat, 1 Gt, 2 FA = 45' Stephanie Wagner PT Jun 29, 2022 15:09
--- NOTE | 2022-06-29 15:20 | Physical Therapy Daily Note ---
PT Daily Note-Current Pain Section J - Health Conditions 1. Rarely or not at all 2. Occasionally 3. Frequently 4. Almost constantly 8. Unable to answer Pain Effect on Sleep: 2 Pain Interference with Therapy: 2 Pain Interference w/Day-to-Day: 3 Mental Status Patient Orientation: Person Transfers SCALE: Activities may be completed with or without assistive devices. 2-Mdzybxgrhc-jdffpss completes the activity by him/herself with no assistance from a helper. 5-Set-up or Clean-up Assistance-helper sets up or cleans up; patient completes activity. [place] assists only prior to or following the activity. 4-Supervision or Touching Assistance-helper provides verbal cues and/or touching/steadying and/or contact guard assistance as patient completes activity. Assistance may be provided throughout the activity or intermittently. 3-Partial/Moderate Assistance-helper does LESS THAN HALF the effort. [place] lifts, holds or supports trunk or limbs, but provides less than half the effort. 2-Substantial/Maximal Assistance-helper does MORE THAN HALF the effort. [place] lifts or holds trunk or limbs and provides more than half the effort. 8-Ruzitztzc-hvphyl does ALL the effort. Patient does none of the effort to complete the activity. Or, the assistance of 2 or more helpers is required for the patient to complete the activity. If activity was not attempted, code reason: 7-Patient Refused. 9-Not Applicable-not attempted and the patient did not perform the activity before the current illness, exacerbation or injury. 10-Not Attempted due to Environmental Limitations-(lack of equipment, weather restraints, etc.). 88-Not Attempted due to Medical Conditions or Safety Concerns. Treatments pt preformed sit to stand transfers and 3 steps ambulation to bed and bed transfer into bed. pt then preformed pursed lip breathing for energy conservat ion. PT Mcc Goals Lens Polisher Hand Goals PT Lens Polisher Hand Goals Time Frame: July 20, 2022 Roll Left & Right (QC): 6 Sit to Lying (QC): 6 Lying-Sitting on Side/Bed(QC): 6 Sit to Stand (QC): 6 Chair/Jft-ou-Vfsvo Xfer(QC): 6 Toilet Transfer (QC): 6 Car Transfer (QC): 5 Does the Patient Walk: Yes Walk 10 feet (QC): 5 (with O2 assist as needed) Walk 50ft with 2 Turns (QC): 5 (with O2 assist as needed and FWW) Walk 150 ft (QC): 4 (with FWW and O2 assist, CGA due to severity of endurance deficit) Walking 10ft on Uneven Surface: 5 (with FWW and O2 assist) 1 Step (curb) (QC): 5 4 Steps (QC): 5 12 Steps (QC): 9 Picking up an Object (QC): 6 (FWW and 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 programmer) Does the Pt use WC or Scooter?: No Wheel 50 feet with 2 turns (QC: 9 Wheel 150 feet: 9 PT Plan Problem List Problem List: Activity Tolerance, Functional Strength, Safety, Balance, Gait, Transfer, Bed Mobility Treatment/Plan Treatment Plan: Continue Plan of Care Treatment Duration: July 20, 2022 Frequency: Modified Program (IRF) Estimated Hrs Per Day: Other (24/09 program) Safety Risks/Education Safety Risk Comments: O2 precautions, fall risk Time Time In: 0302 Time Out: 0212 DATE: Jun 29, 2022 Total Billed Treatment Time: 10 Total Billed Treatment 1 Fa 10 mins Ebony Barrett EMERGENCY VETERINARY ASSISTANT Jun 29, 2022 15:20
[2022-06-29] MEDS: inSUlin ASPART (NovoLOG) 1 UNIT/0.01 ML (CHARGE PER UNIT) SC SCH ×2 (15:55→20:32)
[2022-06-29 20:00] VITALS: BP 136/79
[2022-06-29] MEDS: APIXABAN 5 MG (ELIQUIS) TABLET PO SCH (20:37)
[2022-06-29] MEDS: AMIODARONE 200 MG (CORDARONE) TAB PO SCH (20:37)
[2022-06-29] MEDS: SENNOSIDES 8.6 MG (SENOKOT) TAB PO SCH (21:00)
[2022-06-29] MEDS: DOCUSATE SODIUM 100 MG (COLACE) CAP PO SCH (21:00)
[2022-06-29] MEDS ORDERED: SENNA W/DOCUSATE (SENOKOT S) TABLET PO SCH (21:00)
[2022-06-29] MEDS: polyethylene glycoL POWDER 17 GM (MIRALAX) PACK PO SCH (21:00)
[2022-06-29] MEDS ORDERED: DOCUSATE SODIUM 100 MG (COLACE) CAP PO SCH (21:00)
[2022-06-29] MEDS: RT-BUDESONIDE NEBS 0.5 MG/2ML (PULMICORT) AMP INH SCH (22:28)
[2022-06-30] MEDS: RT-ALBUTEROL/IPRATROPIUM 3 ML (DUONEB) VIAL INH SCH ×6 (02:15→21:22)
[2022-06-30 05:51] LABS: BASOPHILS % (AUTO) 0 % (0-10); EOSINOPHILS # (AUTO) 0.3 10^3/uL (0.0-0.3); EOSINOPHILS % (AUTO) 3 % (0-10); HEMATOCRIT 30 % (40-54); LYMPHOCYTES # (AUTO) 0.8 10^3/uL (1.0-4.0); LYMPHOCYTES % (AUTO) 7 % (12-44); MEAN CORPUSCULAR HEMOGLOBIN 36 pg (25-34); MEAN CORPUSCULAR HGB CONC 34 g/dL (32-36); MEAN CORPUSCULAR VOLUME 107 fL (80-99); MONOCYTES # (AUTO) 0.8 10^3/uL (0.0-1.0); MONOCYTES % (AUTO) 8 % (0-12); NEUTROPHILS # (AUTO) 8.6 10^3/uL (1.8-7.8); NEUTROPHILS % (AUTO) 81 % (42-75); PLATELET COUNT 233 10^3/uL (130-400); WHITE BLOOD COUNT 10.6 10^3/uL (4.3-11.0)
[2022-06-30] MEDS: inSUlin ASPART (NovoLOG) 1 UNIT/0.01 ML (CHARGE PER UNIT) SC SCH ×4 (05:59→20:27)
[2022-06-30 06:00] LABS: ALBUMIN 2.9 GM/DL (3.2-4.5); POTASSIUM 3.9 MMOL/L (3.6-5.0)
[2022-06-30 06:02] LABS: CALCIUM 8.3 MG/DL (8.5-10.1)
[2022-06-30 06:03] LABS: TOTAL PROTEIN 5.1 GM/DL (6.4-8.2)
[2022-06-30 06:05] LABS: BILIRUBIN,TOTAL 0.4 MG/DL (0.1-1.0)
[2022-06-30 06:06] LABS: CREATININE SERUM 0.6 MG/DL (0.60-1.30)
--- NOTE | 2022-06-30 06:13 | PM&R Progress Note ---
Subjective HPI/CC On Admission Date Seen by Provider: Jun 30, 2022 Time Seen by Provider: 08:30 Subjective/Events-last exam 06/30/2022: Doing well Confusion is noted with poor recall Participation is good No falls Labs reviewed Review of Systems General: Fatigue, Malaise Pulmonary: Dyspnea Neurological: Weakness, Confusion Objective Exam Vital Signs Vital Signs Date Time Temp Pulse Resp B/P (MAP) Pulse Ox O2 Delivery O2 Flow Rate FiO2 06/30/22 21:23 93 Nasal Cannula 3.00 06/30/22 19:45 36.6 70 20 129/85 (100) 06/30/22 02:16 28 Capillary Refill : General Appearance: No Apparent Distress, WD/WN, Chronically ill HEENT: PERRL/EOMI, Normal ENT Inspection, Pharynx Normal Neck: Full Range of Motion, Normal Inspection, Non Tender, Supple, Carotid Bruit Respiratory: Chest Non Tender, Lungs Clear, No Accessory Muscle Use, No Respiratory Distress, Decreased Breath Sounds Cardiovascular: No Edema, No Gallop, No JVD, No Murmur, Normal Peripheral Pulses, Irregularly Irregular Gastrointestinal: Normal Bowel Sounds, No Organomegaly, No Pulsatile Mass, Non Tender, Soft Back: Normal Inspection, No CVA Tenderness, No Vertebral Tenderness Extremity: Normal Capillary Refill, Normal Inspection, Normal Range of Motion, Non Tender, No Calf Tenderness, No Pedal Edema Neurologic/Psychiatric: Alert, Oriented x3, Normal Mood/Affect, digital ad trafficker II-XII Norm as Tested, Abnormal Gait, Depressed Affect, Motor Weakness (generalized 3/5) Skin: Normal Color, Warm/Dry Lymphatic: No Adenopathy Results/Procedures Lab Laboratory Tests 06/30/22 05:22 Patient resulted labs reviewed. FIM Transfers Therapy Code Descriptions/Definitions Functional [place] Measure: 0=Not Assessed/NA 4=Minimal Assistance 1=Total Assistance 5=Supervision or Setup 2=Maximal Assistance 6=Modified [place] 3=Moderate Assistance 7=Complete IndependenceSCALE: Activities may be completed with or without assistive devices. 2-Ukdghskuib-rdbvokd completes the activity by him/herself with no assistance from a helper. 5-Set-up or Clean-up Assistance-helper sets up or cleans up; patient completes activity. [place] assists only prior to or following the activity. 4-Supervision or Touching Assistance-helper provides verbal cues and/or touching/steadying and/or contact guard assistance as patient completes activity. Assistance may be provided throughout the activity or intermittently. 3-Partial/Moderate Assistance-helper does LESS THAN HALF the effort. [place] li fts, holds or supports trunk or limbs, but provides less than half the effort. 2-Substantial/Maximal Assistance-helper does MORE THAN HALF the effort. [place] lifts or holds trunk or limbs and provides more than half the effort. 5-Bifmtvrub-mztoct does ALL the effort. Patient does none of the effort to complete the activity. Or, the assistance of 2 or more helpers is required for the patient to complete the activity. If activity was not attempted, code reason: 7-Patient Refused. 9-Not Applicable-not attempted and the patient did not perform the activity before the current illness, exacerbation or injury. 10-Not Attempted due to Environmental Limitations-(lack of equipment, weather restraints, etc.). 88-Not Attempted due to Medical Conditions or Safety Concerns. Roll Left to Right (QC): 5 Sit to Lying (QC): 4 Sit to Stand (QC): 3 (min (A) to FWW) Chair/Wis-od-Lngxu Xfer(QC): 3 (min (A) with FWW) Car Transfer (QC): 88 Gait Training Does the Patient Walk?: Yes Walk 10 feet (QC): 3 (min (A) with portable O2. O2 sats dropped to 84% during gait of 15' in room wiht 3L O2. Rebounded to 92% sitting in recliner, leaning forward with elbows on knees.) Walk 50 ft with 2 Turns(QC): 88 (due to air hunger, desat, activity tolerance deficits.) Walk 150 ft (QC): 88 (due to air hunger, desat, activity tolerance deficits.) Walking 10ft/uneven surface-QC: 88 (due to air hunger, desat, activity tolerance deficits.) Gait Assistive Device: FWW Wheelchair Training Does the Pt Use a Wheelchair?: No Wheel 50 ft with 2 turns (QC): 9 Wheel 150 ft (QC): 9 Stair Training 1 Step (curb) (QC): 88 (due to air hunger, desat, activity tolerance deficits.) 4 Steps (QC): 88 (due to air hunger, desat, activity tolerance deficits.) 12 Steps (QC): 88 (due to air hunger, desat, activity tolerance deficits.) Balance Picking up an Object (QC): 88 (due to air hunger, anxiety, desat, activity tolerance deficits.) ADL-Treatment Eating (QC): 6 Oral Hygiene (QC): 4 Shower/Bathe Self (QC): 88 (not attempted due to decreased O2 saturation with activity and pt c/o SOB/air hunger) Upper Body Dressing (QC): 5 Lower Body Dressing (QC): 4 On/Off Footwear (QC): 88 (Not attempted due to decrease in O2 saturation with activity, pt c/o SOB and air hunger) Toileting Hygiene (QC): 3 (assist with posterior hygiene, pt able to manage pants up.) Assessment/Plan Assessment and Plan Assess & Plan/Chief Complaint Assessment: COPD myopathy Acute on Chronic RF w/ hypoxia and hypercapnia Acute COPD Exacerbation Afib w/ RVR CAD w/ history of CABG Alcohol Withdrawal Hyponatremia DM type 2 Debility Smoker Confusion/poor recall Plan: Monitor closely Pain control O2 Nebs Aggressive PT OT 06/30/2022: Monitor closely Fall risk (1) Myopathy (2) Acute on chronic respiratory failure with hypoxia and hypercapnia Status: Acute (3) Acute exacerbation of chronic obstructive pulmonary disease (COPD) Status: Acute (4) Atrial fibrillation with RVR (5) Coronary artery disease without angina pectoris Status: Chronic (6) Alcoholism Status: Acute (7) Primary hypertension (8) CAD (coronary artery disease) Status: Chronic (9) Mixed hyperlipidemia (10) Anemia due to acute blood loss Status: Acute (11) HLD (hyperlipidemia) Status: Chronic (12) Alcohol intoxication in active alcoholic Status: Acute (13) Heavy smoker ALEXANDRA JUDGE DO Jun 30, 2022 06:13
--- NOTE | 2022-06-30 06:13 | Individualized Plan of Care ---
Individualized Plan of Care Rehab Nursing IPOC Order Admission Date Jun 29, 2022 at 12:10 Current Orders Orders Admission Order(Inpt,Obs,Sdc) (06/29/22 11:43) Vital Signs: Per Unit Policy ( 08,16,00 (06/29/22 11:43) Pedro Duron (06/29/22 11:43) Sequential Compression Device (06/29/22 11:43) Head Of Insight-Inpt Rehab Con (06/29/22 11:43) Rehab Nursing Orders-Ipoc (06/29/22 11:43) Physical Therapy Rehab Orders (06/29/22 11:43) Occupational Therapy Rehab Ord (06/29/22 11:43) Speech Therapy Rehab Orders (06/29/22 11:43) Cbc With Automated Diff (06/30/22 06:00) Comprehensive Metabolic Panel (06/30/22 06:00) Precautions (Aru) (06/29/22 11:43) Weekly Weight WEEK (06/29/22 11:43) Rehab-Intensity Of Therapy (06/29/22 11:43) Initiate Admission Nursing Pro .admission (06/29/22 11:43) Alprazolam Tablet (Xanax Tablet) (06/29/22 11:45) Calcium Carbonate Chew Tablet (Antacid C (06/29/22 11:45) Diphenhydramine Tablet (Benadryl Tablet) (06/29/22 11:45) Docusate Sodium Capsule (Colace Capsule) (06/29/22 21:00) Docusate Sodium Capsule (Colace Capsule) (06/29/22 11:45) Bisacodyl Suppository (Dulcolax Supposit (06/29/22 11:45) Lactulose Oral Solution (Enulose Oral So (06/29/22 11:45) Na Phos/Na Biphos Enema (Fleet Enema Hong (06/29/22 11:45) Guaifenesin/Codeine Syrup (Robitussin Ac (06/29/22 11:45) Loperamide Tablet (Imodium Tablet) (06/29/22 11:45) Melatonin Tablet (Melatonin Tablet) (06/29/22 11:45) Polyethylene Glycol Powder Pkt (Miralax (06/29/22 21:00) Ondansetron Oral Dissolve Tab (Zofran (06/29/22 11:45) Senna S Tablet (Senokot S Tablet) (06/29/22 21:00) Acetaminophen Tablet/Caplet (Tylenol T (06/29/22 11:45) Initiate Admission Nursing Pro .admission (06/29/22 11:43) Admission Arrival Bed Request (06/29/22 12:11) Code/Resuscitation (06/29/22 12:45) Accucheck Achs ACHS (06/29/22 12:45) Catheter(Urinary) Discontinue (06/29/22 12:45) Pedro Hose (06/29/22 12:45) General/Regular (06/29/22 Lunch) Albuterol/Ipra Inhalation Soln (Duoneb I (06/29/22 14:00) Diphenhydramine Injection (Benadryl Inje (06/29/22 12:45) Diphenhydramine Tablet (Benadryl Tablet) (06/29/22 12:45) Budesonide Inhalation Solution (Pulmicor (06/29/22 21:00) Docusate Sodium Capsule (Colace Capsule) (06/29/22 21:00) Bisacodyl Suppository (Dulcolax Supposit (06/29/22 12:45) Lactulose Oral Solution (Enulose Oral So (06/29/22 12:45) Folic Acid Tablet (Folic Acid Tablet) (06/30/22 09:00) Hydromorphone Injection (Dilaudid Inject (06/29/22 12:45) Lorazepam Injection (Ativan Injection) (06/29/22 12:45) Antacid Suspension (Mylanta Suspension (06/29/22 12:45) Melatonin Tablet (Melatonin Tablet) (06/29/22 12:45) Magnesium Hydroxide Oral Susp (Mom Oral (06/29/22 12:45) Polyethylene Glycol Powder Pkt (Miralax (06/29/22 12:45) Therapeutic Multivitamin Tab (Vitamins, (06/30/22 07:00) Insulin Aspart (Novolog) (Novolog (Charg (06/29/22 16:00) Sennosides Tablet (Senokot Tablet) (06/29/22 21:00) Senna S Tablet (Senokot S Tablet) (06/29/22 12:45) Sodium Chloride Flush (Catheter Flush Sy (06/29/22 12:45) Calcium Carbonate Chew Tablet (Antacid C (06/29/22 12:45) Acetaminophen Tablet/Caplet (Tylenol T (06/29/22 12:45) Ondansetron Injection (Zofran Injectio (06/29/22 12:45) Ondansetron Oral Dissolve Tab (Zofran (06/29/22 12:45) Diltiazem Cd 24 Hr Capsule (Cardizem Cd (06/30/22 09:00) Oxycodone Immediate Rel Tablet (Oxyir Ta (06/29/22 12:45) Mat Initiate Protocol (06/29/22 12:45) Svn Small Volume Nebulizer (06/29/22 12:45) Svn Small Volume Nebulizer (06/29/22 12:45) Amiodarone Tablet (Cordarone Tablet) (06/29/22 21:00) Apixaban Tablet (Eliquis Tablet) (06/29/22 21:00) Lorazepam Tablet (Ativan Tablet) (06/29/22 12:45) Patient Visit (06/29/22 ) Pt Eval Moderate Complexity (06/29/22 ) Gait Training, Ea 15 Min (06/29/22 ) Functional Activities, Ea 15 (06/29/22 ) Code/Resuscitation (06/29/22 18:22) Manual Differential (06/30/22 05:22) Functional Activities, Ea 15 (06/29/22 ) Patient Visit (06/30/22 ) Speech Sound Lang Comp (06/30/22 ) Treat. Speech/Lang/Voice (06/30/22 ) Patient Visit (06/30/22 ) Gait Training, Ea 15 Min (06/30/22 ) Wheelchair Mgmt/Propulsn 15min (06/30/22 ) Exercise Therap, Ea 15 Min (06/30/22 ) Functional Activities, Ea 15 (06/30/22 ) Rehab Nursing Orders: Ongoing Assess. of Cognitive Status, Ongoing Assess. of Function Status, Bladder Management, Bladder Scan, Bladder Training, Bowel Management, Bowel Training, Disease Management & Educaiton, DVT Prophylaxis, Fall Prevention, Fluid/Electrolyte/Nutrition Mgmt, Infection Prevention, Medicat ion Management & Education, Management of Risks & Complications, Management of Skin Intergrity, Nutrition Management, Pain Management, Patient/Family Support, Safety Management, Wound Management Intensity of Therapy to be met Patient to be seen: Min.3h per day/5 of 7d PT IPOC Problem List: Activity Tolerance, Functional Strength, Safety, Balance, Gait, Transfer, Bed Mobility Treatment Plan: Continue Plan of Care Bed Mobility, Education, Functional Activity Yoanna, Functional Strength, Group Therapy, Gait, Safety, Therapeutic Exercise, Transfers Treatment Duration: July 20, 2022 Frequency: Modified Program (IRF) Estimated Hrs Per Day: Other (24/09 program) OT IPOC Problems: Decreased Activ Tolerance, Decreased Safety Aware, Impaired Self-Care Skills OT Treatment, Training and Edu: Yes Plan of Care: ADL Retraining, Functional Mobility, Group Exercise/Act as Ind, UE Funct Exercise/Act Treatment Duration: July 29, 2022 Frequency: Modified Program (IRF) (24/09) Estimated Hrs Per Day: 1.[address] IPOC Speech Therapy Treatment Plan: Continue Plan of Care Treatment Duration: Jun 30, 2022 Frequency: Modified Program (IRF) Estimated Hrs Per Day: Other Head Of Insight/Case Mgmt Head Of Insight/Case Managemen: Discharge Planning Dietitian/Trauma Manager Dietitian/Trauma Manager to monitor nutritional status and make changes and/or recommendations as needed and work with speech pathology on dietary upgrades as the occur. Physician IPOC Medical Issues being managed closely and that require the 24 hour availability of a physician: Recent acute on chronic respiratory failure and alcohol withdrawal along with new onset AF RVR will require close monitoring from physician 03/10 due to high risk for decompensation Medical Issues: Bowel/Bladder Function, DVT Prophylaxis, Falls Precautions, Fl uid/Electrolyte/Nutrition Balance, Infection Protection, Pain Management, Wound Care Brief Synthesis of Preadmission Screen, Post-Admission Evaluation, and Therapy Evaluations: PT OT will focus on regaining function with use of AD in order to increase sta zainab of ambulation along with increasing ADL's Medical Prognosis: Fair Anticipated Length of Stay: 10 days ALEXANDRA JUDGE DO Jun 30, 2022 06:13
[2022-06-30 06:18] LABS: EOSINOPHILS % (MANUAL) 4 %; LYMPHOCYTES % (MANUAL) 8 %; MONOCYTES % (MANUAL) 7 %; NEUTROPHILS % (MANUAL) 81 %; PLATELET ESTIMATE ADEQUATE
[2022-06-30 06:19] LABS: HYPOCHROMASIA SLIGHT
[2022-06-30] MEDS: MULTIVIT W/MINERALS TAB (THERAGRAN M) PO SCH (06:24)
[2022-06-30] MEDS: RT-BUDESONIDE NEBS 0.5 MG/2ML (PULMICORT) AMP INH SCH ×2 (06:50→21:22)
--- NOTE | 2022-06-30 07:21 | Occupational Ther Daily Note ---
OT Current Status-Daily Note Subjective Pt alert, lying in bed. Pt agrees to therapy. Pt c/o that albuterol treatment wasn't completed before breakfast came, CATALAN explained that he had asked for treatment and that it was just finishing up. Mental Status/Objective Patient Orientation: Person, Place, Time, Situation Attachments: IV, Oxygen (3L) ADL-Treatment Breakfast delivered, pt declines sitting up in chair. With cues, pt able to pull self up in bed using bed rails to pull and B LE to push. Pt then completed own set up of meal and uses regular utensils to eat. After session, pt lying in bed with call light/phone in reach. Therapy Code Descriptions/Definitions Functional [place] Measure: 0=Not Assessed/NA 4=Minimal Assistance 1=Total Assistance 5=Supervision or Setup 2=Maximal Assistance 6=Modified [place] 3=Moderate Assistance 7=Complete IndependenceSCALE: Activities may be completed with or without assistive devices. 2-Rnvrcixdyi-pgumypc completes the activity by him/herself with no assistance from a helper. 5-Set-up or Clean-up Assistance-helper sets up or cleans up; patient completes activity. [place] assists only prior to or following the activity. 4-Supervision or Touching Assistance-helper provides verbal cues and/or touching/steadying and/or contact guard assistance as patient completes activity. Assistance may be provided throughout the activity or intermittently. 3-Partial/Moderate Assistance-helper does LESS THAN HALF the effort. [place] lifts, holds or supports trunk or limbs, but provides less than half the effort. 2-Substantial/Maximal Assistance-helper does MORE THAN HALF the effort. [place] lifts or holds trunk or limbs and provides more than half the effort. 5-Psofgyfcb-imvpib does ALL the effort. Patient does none of the effort to complete the activity. Or, the assistance of 2 or more helpers is required for the patient to complete the activity. If activity was not attempted, code reason: 7-Patient Refused. 9-Not Applicable-not attempted and the patient did not perform the activity before the current illness, exacerbation or injury. 10-Not Attempted due to Environmental Limitations-(lack of equipment, weather restraints, etc.). 88-Not Attempted due to Medical Conditions or Safety Concerns. Eating (QC): 6 OT Short Term Goals Short Term Goals Time Frame: July 22, 2022 Oral hygiene: 5 Toileting hygiene: 4 Shower/bathe self: 4 Lower body dressin Putting on/taking off footwear: 4 OT Half-Way Goals Home Attendant Goals Time Frame: July 29, 2022 Acute change in mental status: 1 Inattention: 1 Disorganized thinkin Altered level of consciousness: 0 Eating (QC): 6 Oral Hygiene (QC): 6 Toileting Hygiene (QC): 6 Shower/Bathe Self (QC): 6 Upper Body Dressing (QC): 6 Lower Body Dressing (QC): 6 On/Off Footwear (QC): 6 Additional Goals: 1-Demonstrate ADL Tasks, 2-Verbalize Understanding, 3-ImproveStrength/Yoanna 1=Demonstrate adherence to instructed precautions during ADL tasks. 2=Patient will verbalize/demonstrate understanding of assistive devices/modifications for ADL. 3=Patient will improve strength/tolerance for activity to enable patient to per form ADL's. OT Education/Plan Problem List/Assessment Assessment: Decreased Activ Tolerance, Impaired Bed Mobility Discharge Recommendations Plan/Recommendations: Continue POC Treatment Plan/Plan of Care Patient would benefit from OT for education, treatment and training to promote independence in ADL's, mobility, safety and/or upper extremity function for ADL's. Plan of Care: ADL Retraining, Functional Mobility, Group Exercise/Act as Ind, UE Funct Exercise/Act Treatment Duration: July 29, 2022 Frequency: Modified Program (IRF) (24/09) Estimated Hrs Per Day: 1.5 hours per day Agreement: Yes Rehab Potential: Fair Time Start Time: 07:00 Stop Time: 07:20 DATE: Jun 30, 2022 Total Time Billed (hr/min): 20 Billed Treatment Time 1 visit-ADL 1 (20 min) ATTILA VÁSQUEZ Jun 30, 2022 07:21
[2022-06-30 07:33] VITALS: BP 120/67
[2022-06-30] MEDS: APIXABAN 5 MG (ELIQUIS) TABLET PO SCH ×2 (07:44→20:26)
[2022-06-30] MEDS: AMIODARONE 200 MG (CORDARONE) TAB PO SCH ×2 (07:45→20:26)
[2022-06-30] MEDS: FOLIC ACID 1 MG TAB PO SCH (07:45)
[2022-06-30] MEDS: DOCUSATE SODIUM 100 MG (COLACE) CAP PO SCH ×2 (07:47→20:26)
[2022-06-30] MEDS: SENNOSIDES 8.6 MG (SENOKOT) TAB PO SCH ×2 (07:47→20:27)
[2022-06-30] MEDS: polyethylene glycoL POWDER 17 GM (MIRALAX) PACK PO SCH ×2 (07:47→20:27)
--- NOTE | 2022-06-30 09:20 | Physical Therapy Daily Note ---
PT Daily Note-Current Subjective States that his (R) hip is sore this morning - states maybe it is due to laying in bed. Nursing has given pain medication this a.m. States repeatedly that he needs a breathing treatment. States he has not had one since coming to the ARU. RT provided a breathing treatment at ~7am this morning. Asks if he is in [facility] - educated that we are in [address] in [place]. Asks if his has visited - this therapist does not know if she visited last night or not. States several times that he was "tricked" to coming to the hospital. States he didn't know that he was coming to the ARU for therapy. Educated on ARU's plan for patient to regain strength and independence so that he can return home safely. Pain Section J - Health Conditions 1. Rarely or not at all 2. Occasionally 3. Frequently 4. Almost constantly 8. Unable to answer Pain Effect on Sleep: 1 Pain Interference with Therapy: 1 Pain Interference w/Day-to-Day: 1 Appearance In semi-blake position in bed with O2 at 3L when PT entered room. O2 sats at rest 92%. Mental Status Patient Orientation: Person Speech scheduled to screen today for cognition. Transfers SCALE: Activities may be completed with or without assistive devices. 2-Fvnrcbwson-hslbtgi completes the activity by him/herself with no assistance f rom a helper. 5-Set-up or Clean-up Assistance-helper sets up or cleans up; patient completes activity. [place] assists only prior to or following the activity. 4-Supervision or Touching Assistance-helper provides verbal cues and/or touching/steadying and/or contact guard assistance as patient completes activity. Assistance may be provided throughout the activity or intermittently. 3-Partial/Moderate Assistance-helper does LESS THAN HALF the effort. [place] lifts, holds or supports trunk or limbs, but provides less than half the effort. 2-Substantial/Maximal Assistance-helper does MORE THAN HALF the effort. [place] lifts or holds trunk or limbs and provides more than half the effort. 9-Gijiewaqt-gugpfx does ALL the effort. Patient does none of the effort to complete the activity. Or, the assistance of 2 or more helpers is required for the patient to complete the activity. If activity was not attempted, code reason: 7-Patient Refused. 9-Not Applicable-not attempted and the patient did not perform the activity before the current illness, exacerbation or injury. 10-Not Attempted due to Environmental Limitations-(lack of equipment, weather restraints, etc.). 88-Not Attempted due to Medical Conditions or Safety Concerns. Roll Left & Right (QC): 6 (with bed rail) Sit to Lying (QC): 6 (with bed rail) Lying to Sitting/Side of Bed(Q: 6 (with bed rail) Sit to Stand (QC): 4 (CGA-SBA to FWW) Chair/Cmh-pi-Bavil Xfer(QC): 4 (CGA-SBA with FWW for bed>w/c and w/c>bed) O2 at 3L, but after transfer activities, O2 sats decreased to 84-86% even with extensive cues for pursed-lip breathing (PLB). Increased O2 to 4L for ~ 5 minutes with sats improving to 92-95% in sitting position in w/c with PLB practice, prn cues. O2 reduced to 3L and sats remained 92-95% in w/c. Weight Bearing Full Weight Bearing Full Weight Bearing Gait Training Distance: 62;. Desat to 89% at 32' dawna, then desat to 85% at 62' dawna. Walk 10 feet (QC): 3 (min (A) with FWW, portable O2 and w/c f/u) Had patient sit at 62' dawna and cued to lean forward with elbows on knees for PLB. Sats remained in mid 80's on 3L. Increased O2 to 4L and sats rebounds to 90% /p 3' rest with PLB. O2 reduced to 3L and patient continued to O2 sats in low 90's. Wheelchair Training Patient propelled w/c (I) using (B) LE's 62' without rest. O2 sats 84-86% on 3L /p this activity. Increased O2 to 4L with sats increasing to 91% after 3 minute rest with PLB. Patient then propelled w/c (I) into room to bedside using (B) LE's. Patient able to lock w/c breaks with cues. Exercises (B) LE exercise in sitting in w/c with 3L O2: -toes lifts with alt calf press x 15 -ankle pumps x 15 with sustained LAQ -(R) LAQ x 10 -(L) LAQ x 10 *All performed while oracticing PLB. Treatments Patient donned pants without therapist assist nor cues -- patient able to place pants over feet in sitting, pull pants up over feet (I). Then patient stood to FWW with SBA-CGA and pulled pants up with both hands without any external support without LOB. PT Gis Database Administrator Goals Alf Goals PT Gis Database Administrator Goals Time Frame: July 20, 2022 Roll Left & Right (QC): 6 Sit to Lying (QC): 6 Lying-Sitting on Side/Bed(QC): 6 Sit to Stand (QC): 6 Chair/Zon-le-Bpfzx Xfer(QC): 6 Toilet Transfer (QC): 6 Car Transfer (QC): 5 Does the Patient Walk: Yes Walk 10 feet (QC): 5 (with O2 assist as needed) Walk 50ft with 2 Turns (QC): 5 (with O2 assist as needed and FWW) Walk 150 ft (QC): 4 (with FWW and O2 assist, CGA due to severity of endurance deficit) Walking 10ft on Uneven Surface: 5 (with FWW and O2 assist) 1 Step (curb) (QC): 5 4 Steps (QC): 5 12 Steps (QC): 9 Picking up an Object (QC): 6 (FWW and health and safety consultant) Does the Pt use WC or Scooter?: No Wheel 50 feet with 2 turns (QC: 9 Wheel 150 feet: 9 PT Plan Problem List Problem List: Activity Tolerance, Functional Strength, Safety, Balance, Gait, Transfer, Bed Mobility Treatment/Plan Treatment Plan: Continue Plan of Care Treatment Plan: Bed Mobility, Education, Functional Activity Yoanna, Functional Strength, Group Therapy, Gait, Safety, Therapeutic Exercise, Transfers Treatment Duration: July 20, 2022 Frequency: Modified Program (IRF) Estimated Hrs Per Day: Other (24/09 program) Patient and/or Family Agrees t: Yes Safety Risks/Education Safety Risk Comments: O2 precautions - ed. on energy conservation (including walker use) and PLB Teaching Recipient: Patient Teaching Methods: Demonstration, Discussion Response to Teaching: Reinforcement Needed Also educated to not get out of bed without assist of staff. Bed alarm activated at end of session. Discharge Recommendations Plan Recommend O2 at 4L for activity and 3L for rest - notified nursing to discuss with doctor. Equpiment Recommendations-D/C: Front Wheeled Walker (for energy conservation.) Time Time In: 800 Time Out: 900 DATE: Jun 30, 2022 Total Billed Treatment Time: 60 Total Billed Treatment 60': FA:22, Ex: 10, GT 15, W/C 13 Stephanie Wagner PT Jun 30, 2022 09:20
--- NOTE | 2022-06-30 09:53 | ST Cognitive Linguistic Eval ---
Speech Evaluation-General Medical Diagnosis Acute on Chronic Resp Failure with Hypoxia Onset Date: Jun 19, 2022 Therapy Diagnosis Therapy Diagnosis: Chronic Cognitive Impairment Precautions Precautions: Fall, Pressure Ulcer Precautions/Isolations: Fall Prevention, Standard Precautions, Pressure Ulcer Referral Referring Physician: Dr. Hafsa Key Reason for Referral: Evaluation/Treatment Medical History Pertinent Medical History: Atrial Fib, Alcoholism, CABG, CAD, COPD, GERD, HTN, NM Reviewed History: Yes Social History Current Living Status: Spouse Speech PLF-Current Status Prior Level of Function The patient reported he is functioning at prior cognitive, speech, and language baseline. The patient stated "I can't ever concentrate" and "probably so" is correlation to prior memory deficits. The patient stated, "Danelle take charge, she takes care of everything. She takes my social security check and deposits it, she goes and gets the food." The patient stated Danelle does not and will not provide ADL care, declaring "She told me when I can't take care of myself, I'm gone, I go to the home." Subjective The patient was lying in his bed, awake and alert, upon entrance to his room by the clinician. The patient greeted the clinician appropriately and was agreeable to participation in the cognitive linguistic evaluation following initial hesitation. The patient had multiple questions for the clinician regarding the current acute rehabilitation program. The patient displayed mild agitation stating, "Nobody told me that. Who agreed to this?" The clinician calmly re-directed the patient and provided continued education regarding the rehabilitation program and requirements. The patient reported, "I'm coming here to get clean. No I didn't know what was going on." The clinician continued to provide compassionate l istening and encouragement for continued participation. The patient remained cooperative with all tasks provided stating, "I just feel so enlightened after our talk." Language Eval: Auditory Comprehends Simple Yes/No Ques: Functional Indent/Objects Multiple [place]: Functional Follows 1-Step Commands: Functional Follows General Conversations: Mild (Verbal re-direction was provided by the clinician for attention to topic.) Language Eval: Verbal Language Completes Spontaneous Greeting: Functional Produces Auto, Serial Info: Functional Imitates Simple Words/Phrases: Functional Word Finding: Mild Requests Basic Needs: Functional States Basic Personal Info: Functional Language Evaluation: Writing Writes to Simple Dictation: Functional Cognitive Patient Orientation The patient was independently oriented to self, location, month, day of the week, and year. Objective Cognitive Domain Attention: Moderate Memory: Moderate Problem Solving: Moderate Executive Functions: Moderate Composite Severity Rating: Moderate Clock Drawing Severity Rating: WNL Objective Formal/Standardized Tests [facility] Mental Status Exam (UMS) Results The patient demonstrated a result of +17/30 on the SLUMS which correlates to a score of "dementia" per protocol. Oral Motor/Speech Production While reduced articulation is present, it appears secondary to effort rather than a true dysarthria. Apraxia of speech is not present. Impression The patient displayed baseline cognitive deficits consistent with his most recent acute rehabilitation stay throughout September and October of 2021. On this date, the patient displayed a result of +17/30 on the SLUMS. Following an approximate two week stay with speech pathology services provided throughout September and October of 2021, the patient displayed a result of +18/30 on the SLUMS while not demonstrating improvement or progression towards cognitive goals. The patient appears to be at baseline cognitive function (per self-report and in correlation to prior cognitive results from previous hospitalizations) and is not deemed an appropriate candidate for skilled speech pathology services at this time. The pursed lip breathing which is being practiced by the therapy team remains appropriate for increased respiratory support, as limited gains will be displayed with structured breathing exercises due to underlying, past medical history of respiratory impairments (COPD, emphysema, current everyday smoker). Speech-Plan Treatment Plan Speech Therapy Treatment Plan: Discontinue ST Treatment Duration: Jun 11, 2022 Frequency: 1 time per week Estimated Hrs Per Day: .25 hour per day (20 minutes.) Rehab Potential: Poor (In correlation to Speech Pathology Rehab Potential.) Barriers to Learning: Baseline Cognition and Behavior Safety Risks/Education Safety Risk Comments: The patient is impulsive at baseline. Bed and chair alarms are recommended. Teaching Recipient: Patient Teaching Methods: Discussion Response to Teaching: Reinforcement Needed Education Topics Provided: Results, Recommendations, Plan of Care Time Speech Therapy Time In: 09:00 Speech Therapy Time Out: 09:20 DATE: Jun 30, 2022 Total Billed Time: 20 Billed Treatment Time 1, ROWENA WELLS [facility] ST Jun 30, 2022 09:53
[2022-06-30] MEDS: ONDANSETRON 4 MG (ZOFRAN) ORAL DISSOLVE TAB PO PRN (10:00)
--- NOTE | 2022-06-30 11:55 | Occupational Ther Daily Note ---
OT Current Status-Daily Note Subjective Pt alert, lying in bed. Pt requires encouragement to participate in skilled therapy. Pt has moments of confusion on place thinking this is a detox rehab. Pt voices that he wants to quit drinking, but knows it is hard to do. CATALAN provides therapeutic listening and encouragement. Mental Status/Objective Patient Orientation: Person, Place, Time, Situation ADL-Treatment Set up for UBD. Independent sitting at sink to complete oral care and grooming. Pt declines shower, states that he will do it tomorrow or when he is stronger. Pt takes increased time to complete all tasks due to anxiety over SOA/air hunger. Monitored pt's O2 levels throughout session, maintained 89% and above with O2 at 4L with activity. Pt propelled w/c to/from therapy gym/room indepen dently. Pt completed 8 min of arm bike without resistance with recovery break at 6 min and 2 min countdown to increase pt's activity tolerance and maintaining O2 levels above 90% at 4 L O2. Pt independent with bed mobility and SBA for stand pivot transfer. After session, pt lying in bed with call light/phone in reach. Safety measures in place. All needs met. Therapy Code Descriptions/Definitions Functional [place] Measure: 0=Not Assessed/NA 4=Minimal Assistance 1=Total Assistance 5=Supervision or Setup 2=Maximal Assistance 6=Modified [place] 3=Moderate Assistance 7=Complete IndependenceSCALE: Activities may be completed with or without assistive devices. 1-Eanzeuddnh-dfecjju completes the activity by him/herself with no assistance from a helper. 5-Set-up or Clean-up Assistance-helper sets up or cleans up; patient completes activity. [place] assists only prior to or following the activity. 4-Supervision or Touching Assistance-helper provides verbal cues and/or touching/steadying and/or contact guard assistance as patient completes activity. Assistance may be provided throughout the activity or intermittently. 3-Partial/Moderate Assistance-helper does LESS THAN HALF the effort. [place] lifts, holds or supports trunk or limbs, but provides less than half the effort. 2-Substantial/Maximal Assistance-helper does MORE THAN HALF the effort. [place] lifts or holds trunk or limbs and provides more than half the effort. 3-Shaedtvdx-lcyxiu does ALL the effort. Patient does none of the effort to complete the activity. Or, the assistance of 2 or more helpers is required for the patient to complete the activity. If activity was not attempted, code reason: 7-Patient Refused. 9-Not Applicable-not attempted and the patient did not perform the activity before the current illness, exacerbation or injury. 10-Not Attempted due to Environmental Limitations-(lack of equipment, weather restraints, etc.). 88-Not Attempted due to Medical Conditions or Safety Concerns. Oral Hygiene (QC): 6 Shower/Bathe Self (QC): 7 Upper Body Dressing (QC): 5 OT Short Term Goals Short Term Goals Time Frame: July 22, 2022 Oral hygiene: 5 Toileting hygiene: 4 Shower/bathe self: 4 Lower body dressin Putting on/taking off footwear: 4 OT Chain Maker Machine Goals Usp Goals Time Frame: July 29, 2022 Acute change in mental status: 1 Inattention: 1 Disorganized thinkin Altered level of consciousness: 0 Eating (QC): 6 Oral Hygiene (QC): 6 Toileting Hygiene (QC): 6 Shower/Bathe Self (QC): 6 Upper Body Dressing (QC): 6 Lower Body Dressing (QC): 6 On/Off Footwear (QC): 6 Additional Goals: 1-Demonstrate ADL Tasks, 2-Verbalize Understanding, 3- ImproveStrength/Yoanna 1=Demonstrate adherence to instructed precautions during ADL tasks. 2=Patient will verbalize/demonstrate understanding of assistive dev ices/modifications for ADL. 3=Patient will improve strength/tolerance for activity to enable patient to perform ADL's. OT Education/Plan Problem List/Assessment Assessment: Decreased Activ Tolerance Discharge Recommendations Plan/Recommendations: Continue POC Treatment Plan/Plan of Care Patient would benefit from OT for education, treatment and training to promote independence in ADL's, mobility, safety and/or upper extremity function for ADL's. Plan of Care: ADL Retraining, Functional Mobility, Group Exercise/Act as Ind, UE Funct Exercise/Act Treatment Duration: July 29, 2022 Frequency: Modified Program (IRF) (24/09) Estimated Hrs Per Day: 1.5 hours per day Agreement: Yes Rehab Potential: Poor (In correlation to Speech Pathology Rehab Potential.) Time Start Time: 10:00 Stop Time: 11:00 DATE: Jun 30, 2022 Total Time Billed (hr/min): 60 Billed Treatment Time 1 visit-ADL 2 (30 min) EX 1 (10 min) FA 1 (20 min) ATTILA VÁSQUEZ Jun 30, 2022 11:55
[2022-06-30] MEDS: guaiFENesin/CODEINE (ROBITUSSIN AC) 10ML UDC PO PRN (18:11)
[2022-06-30 19:45] VITALS: BP 129/85
[2022-06-30] MEDS: ALPRAZolam 0.25 MG (XANAX) TAB PO PRN (20:26)
[2022-07-01] MEDS: RT-ALBUTEROL/IPRATROPIUM 3 ML (DUONEB) VIAL INH SCH ×6 (03:20→22:25)
[2022-07-01] MEDS: inSUlin ASPART (NovoLOG) 1 UNIT/0.01 ML (CHARGE PER UNIT) SC SCH ×2 (06:00→11:10)
[2022-07-01] MEDS: RT-BUDESONIDE NEBS 0.5 MG/2ML (PULMICORT) AMP INH SCH ×2 (06:33→22:25)
[2022-07-01] MEDS: MULTIVIT W/MINERALS TAB (THERAGRAN M) PO SCH (06:55)
--- NOTE | 2022-07-01 06:57 | Occupational Ther Daily Note ---
OT Current Status-Daily Note Subjective Pt alert, up in chair. Pt requires therapeutic listening this am due to anxiety about , that he won't have a home and doesn't know what he can do for himself. Mental Status/Objective Patient Orientation: Person, Place, Time ADL-Treatment Pt independent with eating. Per nrsg, pt increased confusion at night and life assurance representative. Independent with bed mobility. SBA for safety with transfer. After therapy, pt sitting up in recliner with call light/phone in reach. Safety measures in place. All needs met. Therapy Code Descriptions/Definitions Functional [place] Measure: 0=Not Assessed/NA 4=Minimal Assistance 1=Total Assistance 5=Supervision or Setup 2=Maximal Assistance 6=Modified [place] 3=Moderate Assistance 7=Complete IndependenceSCALE: Activities may be completed with or without assistive devices. 8-Efzvgvbvxh-eyclnkn completes the activity by him/herself with no assistance from a helper. 5-Set-up or Clean-up Assistance-helper sets up or cleans up; patient completes activity. [place] assists only prior to or following the activity. 4-Supervision or Touching Assistance-helper provides verbal cues and/or touching/steadying and/or contact guard assistance as patient completes activity. Assistance may be provided throughout the activity or intermittently. 3-Partial/Moderate Assistance-helper does LESS THAN HALF the effort. [place] lifts, holds or supports trunk or limbs, but provides less than half the effort. 2-Substantial/Maximal Assistance-helper does MORE THAN HALF the effort. [place] lifts or holds trunk or limbs and provides more than half the effort. 5-Uykgjmklj-jlnefd does ALL the effort. Patient does none of the effort to complete the activity. Or, the assistance of 2 or more helpers is required for the patient to complete the activity. If activity was not attempted, code reason: 7-Patient Refused. 9-Not Applicable-not attempted and the patient did not perform the activity befo re the current illness, exacerbation or injury. 10-Not Attempted due to Environmental Limitations-(lack of equipment, weather re straints, etc.). 88-Not Attempted due to Medical Conditions or Safety Concerns. Eating (QC): 6 OT Short Term Goals Short Term Goals Time Frame: July 22, 2022 Oral hygiene: 5 Toileting hygiene: 4 Shower/bathe self: 4 Lower body dressin Putting on/taking off footwear: 4 OT Cardiovascular Technologist Goals Shelter Goals Time Frame: July 29, 2022 Acute change in mental status: 1 Inattention: 1 Disorganized thinkin Altered level of consciousness: 0 Eating (QC): 6 Oral Hygiene (QC): 6 Toileting Hygiene (QC): 6 Shower/Bathe Self (QC): 6 Upper Body Dressing (QC): 6 Lower Body Dressing (QC): 6 On/Off Footwear (QC): 6 Additional Goals: 1-Demonstrate ADL Tasks, 2-Verbalize Understanding, 3- ImproveStrength/Yoanna 1=Demonstrate adherence to instructed precautions during ADL tasks. 2=Patient will verbalize/demonstrate understanding of assistive devices/modifications for ADL. 3=Patient will improve strength/tolerance for activity to enable patient to perform ADL's. OT Education/Plan Problem List/Assessment Assessment: Decreased Activ Tolerance, Decreased Safety Aware, Impaired Cognition, Impaired Self-Care Skills Discharge Recommendations Plan/Recommendations: Continue POC Treatment Plan/Plan of Care Patient would benefit from OT for education, treatment and training to promote independence in ADL's, mobility, safety and/or upper extremity function for ADL's. Plan of Care: ADL Retraining, Functional Mobility, Group Exercise/Act as Ind, U E Funct Exercise/Act Treatment Duration: July 29, 2022 Frequency: Modified Program (IRF) (24/09) Estimated Hrs Per Day: 1.5 hours per day Agreement: Yes Rehab Potential: Poor (In correlation to Speech Pathology Rehab Potential.) Time Start Time: 06:45 Stop Time: 07:00 DATE: Jul 01, 2022 Total Time Billed (hr/min): 15 Billed Treatment Time 1 visit-FA 1 (15 min) ATTILA VÁSQUEZ Jul 01, 2022 06:57
[2022-07-01 07:16] VITALS: BP 125/73
[2022-07-01] MEDS: APIXABAN 5 MG (ELIQUIS) TABLET PO SCH ×2 (07:51→21:55)
[2022-07-01] MEDS: FOLIC ACID 1 MG TAB PO SCH (07:51)
[2022-07-01] MEDS: SENNOSIDES 8.6 MG (SENOKOT) TAB PO SCH ×2 (07:51→21:55)
[2022-07-01] MEDS: AMIODARONE 200 MG (CORDARONE) TAB PO SCH ×2 (07:51→21:55)
[2022-07-01] MEDS: DOCUSATE SODIUM 100 MG (COLACE) CAP PO SCH ×2 (07:51→21:54)
[2022-07-01] MEDS: polyethylene glycoL POWDER 17 GM (MIRALAX) PACK PO SCH ×2 (07:58→21:55)
--- NOTE | 2022-07-01 09:24 | Physical Therapy Daily Note ---
PT Daily Note-Current Subjective Patient agreeable to work with PT this morning. Much less anxious. Only mentioned needing a breathing treatment x 1 this am. Pain Section J - Health Conditions 1. Rarely or not at all 2. Occasionally 3. Frequently 4. Almost constantly 8. Unable to answer Pain Effect on Sleep: 1 Pain Interference with Therapy: 1 Pain Interference w/Day-to-Day: 1 Appearance Patient up in recliner when therapist entered room. O2 at 3L, O2 sats 93-95% at rest. Transfers SCALE: Activities may be completed with or without assistive devices. 7-Ovyuujehej-pebmwnh completes the activity by him/herself with no assistance from a helper. 5-Set-up or Clean-up Assistance-helper sets up or cleans up; patient completes activity. [place] assists only prior to or following the activity. 4-Supervision or Touching Assistance-helper provides verbal cues and/or touching/steadying and/or contact guard assistance as patient completes activity. Assistance may be provided throughout the activity or intermittently. 3-Partial/Moderate Assistance-helper does LESS THAN HALF the effort. [place] lifts, holds or supports trunk or limbs, but provides less than half the effort. 2-Substantial/Maximal Assistance-helper does MORE THAN HALF the effort. [place] lifts or holds trunk or limbs and provides more than half the effort. 7-Hlhddmplo-lnrwmv does ALL the effort. Patient does none of the effort to complete the activity. Or, the assistance of 2 or more helpers is required for the patient to complete the activity. If activity was not attempted, code reason: 7-Patient Refused. 9-Not Applicable-not attempted and the patient did not perform the activity before the current illness, exacerbation or injury. 10-Not Attempted due to Environmental Limitations-(lack of equipment, weather restraints, etc.). 88-Not Attempted due to Medical Conditions or Safety Concerns. Sit to Stand (QC): 5 (from recliner, from Nustep and from chair. Appropriate hand placement without cues.) Chair/Ofm-is-Xtxfd Xfer(QC): 4 (CGA-SBA with FWW use and O2 assist) Toilet Transfer (QC): 4 (Able to stand to empty bladder with grab bar assist as needed. Able to manage clothing (I).) O2 at 4L for upright activity. Weight Bearing Full Weight Bearing Full Weight Bearing Gait Training Distance: Patient ambulated 75' x 2 with RW and O2 at 4L per portable tank, CGA. Walk 10 feet (QC): 4 (CGA with FWW, O2 assist) Walk 50 ft with 2 Turns(QC): 4 (CGA with FWW and O2 assist, cues to PLB) Gait Assistive Device: FWW Following gait, O2 sats were 84-86%. Had patient sit leaning forward with elbows on knees to pursed-lip breath (PLB). Sats increased to 92% after 2 minute rest. Exercises NuStep Minutes: 3 (with 4 L O2 and cues to PLB. After 1 minute, sats were 91%. At 3 minute orozco sats were 82-84%. Had patient stop and seat swung to side so patient could lean forward with elbows on knees and PLB - sats improved to 92% after ~ 1 minutes. ) Treatments Folowing Nustep, patient ambulated 15' in gym to chair and perform stand pivot transfer with FWW CGA-SBA. Practiced pursed lip breathing x 2 minutes and sats were 93-95% on 4L. Perform DF/calf presses alternating in sitting x 20 reps. Patient ambulated to room to empty bladder, and then to recliner without rest. Sats 85% when tested in recliner on 4L. Had patient PLB and sats increased to 93% /p 2 minutes on 4L. O2 reduced to 3L. (B) LE exercise completed in sitting: Ham curls with RTB x 10 Hip abduction with RTB x 10 Isometric pillow adduction squeeze x 10 O2 sats rechecked at 93-95% at rest in recliner with O2 on 3L. Call light and phone within reach of patient, chair alarm on when therapist ex ited room. Assessment Patient with less air hunger and improved gait distance this date. Requires continuous cues to PLB when upright. O2 used at 4L with upright activity with patient continuing to desaturate, but able to recover into 90's with PLB in sitting following upright activity. PT Senior Living Goals Photographic Double Goals PT Senior Living Goals Time Frame: July 20, 2022 Roll Left & Right (QC): 6 Sit to Lying (QC): 6 Lying-Sitting on Side/Bed(QC): 6 Sit to Stand (QC): 6 Chair/Ybx-uk-Rofod Xfer(QC): 6 Toilet Transfer (QC): 6 Car Transfer (QC): 5 Does the Patient Walk: Yes Walk 10 feet (QC): 5 (with O2 assist as needed) Walk 50ft with 2 Turns (QC): 5 (with O2 assist as needed and FWW) Walk 150 ft (QC): 4 (with FWW and O2 assist, CGA due to severity of endurance deficit) Walking 10ft on Uneven Surface: 5 (with FWW and O2 assist) 1 Step (curb) (QC): 5 4 Steps (QC): 5 12 Steps (QC): 9 Picking up an Object (QC): 6 (FWW and induction brazer) Does the Pt use WC or Scooter?: No Wheel 50 feet with 2 turns (QC: 9 Wheel 150 feet: 9 PT Plan Problem List Problem List: Activity Tolerance, Functional Strength, Safety, Gait, Transfer Treatment/Plan Treatment Plan: Continue Plan of Care Treatment Plan: Bed Mobility, Education, Functional Activity Yoanna, Functional Strength, Group Therapy, Gait, Safety, Therapeutic Exercise, Transfers Treatment Duration: July 20, 2022 Frequency: Modified Program (IRF) Estimated Hrs Per Day: Other (24/09 program) Patient and/or Family Agrees t: Yes Safety Risks/Education Safety Risk Comments: O2. Do not get up /s assistance. Reinforced call light use. Discharge Recommendations Plan Will need supervision of once he returns home. Equpiment Recommendations-D/C: Front Wheeled Walker, Oxygen Time Time In: 800 Time Out: 900 DATE: Jul 01, 2022 Total Billed Treatment Time: 60 Total Billed Treatment Exercise: 25', FA: 20', Gt: 15' Stephanie Wagner PT Jul 01, 2022 09:24
[2022-07-01] MEDS: ALPRAZolam 0.25 MG (XANAX) TAB PO PRN ×2 (10:41→17:46)
--- NOTE | 2022-07-01 11:26 | Occupational Ther Daily Note ---
OT Current Status-Daily Note Subjective Pt alert, sitting in recliner. Pt agrees to therapy after encouragement. Therapeutic listening and compassionate encouragement throughout session due to pt's anxiety. Pt c/o pain 1x during session, pt reminded that he had medication already this am. Pt unable to remember place, situation even with reorien tation. Pt requested albuterol treatment, nrsg administered. Pt asked multiple times for a beer and smoke. Mental Status/Objective Patient Orientation: Person, Confused Attachments: IV, Oxygen (3L at rest 4L with activity) ADL-Treatment Pt required max encouragement to complete shower. Pt needed multiple recovery breaks to get ready to complete shower due to anxiety. Sitting on shower bench 100% of the time using grabbars and hand held shower, pt completes shower with supervision for safety and reminders to for correct breathing technique. UBD and footwear set up. LBD, pt threaded feet into pants then hiked over hips with SBA for safety. Pt on 4L O2 during activity with multiple recovery breaks and cues for correct breathing techniques staying at 91% and above. Therapy Code Descriptions/Definitions Functional [place] Measure: 0=Not Assessed/NA 4=Minimal Assistance 1=Total Assistance 5=Supervision or Setup 2=Maximal Assistance 6=Modified [place] 3=Moderate Assistance 7=Complete IndependenceSCALE: Activities may be completed with or without assistive devices. 2-Ikhpljgusf-lmcuvmj completes the activity by him/herself with no assistance from a helper. 5-Set-up or Clean-up Assistance-helper sets up or cleans up; patient completes activity. [place] assists only prior to or following the activity. 4-Supervision or Touching Assistance-helper provides verbal cues and/or touching/steadying and/or contact guard assistance as patient completes activi ty. Assistance may be provided throughout the activity or intermittently. 3-Partial/Moderate Assistance-helper does LESS THAN HALF the effort. [place] lifts, holds or supports trunk or limbs, but provides less than half the effort. 2-Substantial/Maximal Assistance-helper does MORE THAN HALF the effort. [place] lifts or holds trunk or limbs and provides more than half the effort. 4-Wxbwlkxxf-kknrvz does ALL the effort. Patient does none of the effort to complete the activity. Or, the assistance of 2 or more helpers is required for the patient to complete the activity. If activity was not attempted, code reason: 7-Patient Refused. 9-Not Applicable-not attempted and the patient did not perform the activity before the current illness, exacerbation or injury. 10-Not Attempted due to Environmental Limitations-(lack of equipment, weather restraints, etc.). 88-Not Attempted due to Medical Conditions or Safety Concerns. Shower/Bathe Self (QC): 4 Upper Body Dressing (QC): 5 Lower Body Dressing (QC): 4 On/Off Footwear: 5 Toileting Hygiene (QC): 4 (SBA for safety while pt urination while standing at sink.) Toilet Transfer (QC): 4 (Using grabbars) Other Treatment Pt given medium heavy resistance therapy sponge to work on strengthening and as assist to decrease anxiety. Pt able to complete 20 marble mason squeezes with each hand without difficulty. Pt at 88-90% O2 levels at rest on 3L of O2. After therapy, pt sitting in recliner with call light/phone in reach. Safety measures in place. and arjyqr-xs-sxt in room. All needs met in room. OT Short Term Goals Short Term Goals Time Frame: July 22, 2022 Oral hygiene: 5 Toileting hygiene: 4 Shower/bathe self: 4 Lower body dressin Putting on/taking off footwear: 4 OT Correction Goals Sound Effects Supervisor Goals Time Frame: July 29, 2022 Acute change in mental status: 1 Inattention: 1 Disorganized thinkin Altered level of consciousness: 0 Eating (QC): 6 Oral Hygiene (QC): 6 Toileting Hygiene (QC): 6 Shower/Bathe Self (QC): 6 Upper Body Dressing (QC): 6 Lower Body Dressing (QC): 6 On/Off Footwear (QC): 6 Additional Goals: 1-Demonstrate ADL Tasks, 2-Verbalize Understanding, 3- ImproveStrength/Yoanna 1=Demonstrate adherence to instructed precautions during ADL tasks. 2=Patient will verbalize/demonstrate understanding of assistive devices/modifications for ADL. 3=Patient will improve strength/tolerance for activity to enable patient to perform ADL's. OT Education/Plan Problem List/Assessment Assessment: Decreased Activ Tolerance, Decreased Safety Aware, Impaired Cognition, Impaired Self-Care Skills Discharge Recommendations Plan/Recommendations: Continue POC Treatment Plan/Plan of Care Patient would benefit from OT for education, treatment and training to promote independence in ADL's, mobility, safety and/or upper extremity function for ADL's. Plan of Care: ADL Retraining, Functional Mobility, Group Exercise/Act as Ind, UE Funct Exercise/Act Treatment Duration: July 29, 2022 Frequency: Modified Program (IRF) (24/09) Estimated Hrs Per Day: 1.5 hours per day Agreement: Yes Rehab Potential: Poor (In correlation to Speech Pathology Rehab Potential.) Time Start Time: 09:40 Stop Time: 11:11 DATE: Jul 01, 2022 Total Time Billed (hr/min): 91 Billed Treatment Time 1 visit-ADL 5 (80 min) EX 1 (11 min) ATTILA VÁSQUEZ Jul 01, 2022 11:26
--- NOTE | 2022-07-01 12:23 | PM&R Progress Note ---
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 06/30/2022: Doing well Confusion is noted with poor recall Participation is good No falls Labs reviewed Review of Systems General: Fatigue, Malaise Pulmonary: Dyspnea, Cough Neurological: Confusion Objective Exam Vital Signs Vital Signs Date Time Temp Pulse Resp B/P (MAP) Pulse Ox O2 Delivery O2 Flow Rate FiO2 07/01/22 14:50 94 Nasal Cannula 3.00 07/01/22 07:16 36.0 62 18 125/73 (90) 07/01/22 07:00 32 Capillary Refill : General Appearance: No Apparent Distress, WD/WN, Chronically ill HEENT: PERRL/EOMI, Normal ENT Inspection, Pharynx Normal Neck: Full Range of Motion, Normal Inspection, Non Tender, Supple, Carotid Bruit Respiratory: Chest Non Tender, No Accessory Muscle Use, No Respiratory Distress, Crackles, Decreased Breath Sounds Cardiovascular: No Edema, No Gallop, No JVD, No Murmur, Normal Peripheral Pulses, Irregularly Irregular Gastrointestinal: Normal Bowel Sounds, No Organomegaly, No Pulsatile Mass, Non Tender, Soft Back: Normal Inspection, No CVA Tenderness, No Vertebral Tenderness Extremity: Normal Capillary Refill, Normal Inspection, Normal Range of Motion, Non Tender, No Calf Tenderness, No Pedal Edema Neurologic/Psychiatric: Alert, Oriented x3, Normal Mood/Affect, surgery center administrator II-XII Norm as Tested, Abnormal Gait, Depressed Affect, Motor Weakness (generalized 3/5) Skin: Normal Color, Warm/Dry Lymphatic: No Adenopathy Results/Procedures Lab Patient resulted labs reviewed. FIM Transfers Therapy Code Descriptions/Definitions Functional [place] Measure: 0=Not Assessed/NA 4=Minimal Assistance 1=Total Assistance 5=Supervision or Setup 2=Maximal Assistance 6=Modified [place] 3=Moderate Assistance 7=Complete IndependenceSCALE: Activities may be completed with or without assistive devices. 9-Xqkbnpopeg-zkiittv completes the activity by him/herself with no assistance from a helper. 5-Set-up or Clean-up Assistance-helper sets up or cleans up; patient completes activity. [place] assists only prior to or following the activity. 4-Supervision or Touching Assistance-helper provides verbal cues and/or touching/steadying and/or contact guard assistance as patient completes activity. Assistance may be provided throughout the activity or intermittently. 3-Partial/Moderate Assistance-helper does LESS THAN HALF the effort. [place] lifts, holds or supports trunk or limbs, but provides less than half the effort. 2-Substantial/Maximal Assistance-helper does MORE THAN HALF the effort. [place] lifts or holds trunk or limbs and provides more than half the effort. 3-Spoirwwpo-povcpw does ALL the effort. Patient does none of the effort to complete the activity. Or, the assistance of 2 or more helpers is required for the patient to complete the activity. If activity was not attempted, code reason: 7-Patient Refused. 9-Not Applicable-not attempted and the patient did not perform the activity before the current illness, exacerbation or injury. 10-Not Attempted due to Environmental Limitations-(lack of equipment, weather restraints, etc.). 88-Not Attempted due to Medical Conditions or Safety Concerns. Roll Left to Right (QC): 6 (with bed rail) Sit to Lying (QC): 6 (with bed rail) Sit to Stand (QC): 5 (from recliner, from [place] and from chair. Appropriate hand placement without cues.) Chair/Drh-sk-Xjofn Xfer(QC): 4 (CGA-SBA with FWW use and O2 assist) Car Transfer (QC): 88 Gait Training Does the Patient Walk?: Yes Distance: Patient ambulated 75' x 2 with RW and O2 at 4L per portable tank, CGA. Walk 10 feet (QC): 4 (CGA with FWW, O2 assist) Walk 50 ft with 2 Turns(QC): 4 (CGA with FWW and O2 assist, cues to PLB) Walk 150 ft (QC): 88 (due to air hunger, desat, activity tolerance deficits.) Walking 10ft/uneven surface-QC: 88 (due to air hunger, desat, activity tolerance deficits.) Gait Assistive Device: FWW Wheelchair Training Does the Pt Use a Wheelchair?: No Wheel 50 ft with 2 turns (QC): 9 Wheel 150 ft (QC): 9 Stair Training 1 Step (curb) (QC): 88 (due to air hunger, desat, activity tolerance deficits.) 4 Steps (QC): 88 (due to air hunger, desat, activity tolerance deficits.) 12 Steps (QC): 88 (due to air hunger, desat, activity tolerance deficits.) Balance Picking up an Object (QC): 88 (due to air hunger, anxiety, desat, activity tolerance deficits.) ADL-Treatment Eating (QC): 6 Oral Hygiene (QC): 6 Shower/Bathe Self (QC): 4 Upper Body Dressing (QC): 5 Lower Body Dressing (QC): 4 On/Off Footwear (QC): 5 Toileting Hygiene (QC): 4 (SBA for safety while pt urination while standing at sink.) Toilet Transfer (QC): 4 (Using grabbars) Assessment/Plan Assessment and Plan Assess & Plan/Chief Complaint Assessment: COPD myopathy Acute on Chronic RF w/ hypoxia and hypercapnia Acute COPD Exacerbation Afib w/ RVR CAD w/ history of CABG Alcohol Withdrawal Hyponatremia DM type 2 Debility Smoker Confusion/poor recall Plan: Monitor closely Pain control O2 Nebs Aggressive PT OT 06/30/2022: Monitor closely Fall risk 07/01/2022: Monitor lungs closely (1) Myopathy (2) Acute on chronic respiratory failure with hypoxia and hypercapnia Status: Acute (3) Acute exacerbation of chronic obstructive pulmonary disease (COPD) Status: Acute (4) Atrial fibrillation with RVR (5) Coronary artery disease without angina pectoris Status: Chronic (6) Alcoholism Status: Acute (7) Primary hypertension (8) CAD (coronary artery disease) Status: Chronic (9) Mixed hyperlipidemia (10) Anemia due to acute blood loss Status: Acute (11) HLD (hyperlipidemia) Status: Chronic (12) Alcohol intoxication in active alcoholic Status: Acute (13) Heavy smoker ALEXANDRA JUDGE DO Jul 01, 2022 12:23
[2022-07-01] MEDS ORDERED: RT-ALBUTEROL SULF 2.5 MG/3 ML PRE-MIX VIAL ONE (12:25)
[2022-07-01] MEDS: guaiFENesin/CODEINE (ROBITUSSIN AC) 10ML UDC PO PRN (12:41)
[2022-07-01] MEDS: CATHETER FLUSH 10 ML SYR IV PRN ×2 (12:41→21:56)
[2022-07-01] MEDS: LORazepam 1 MG (ATIVAN) TAB PO PRN (12:53)
--- NOTE | 2022-07-01 13:51 | Occupational Ther Daily Note ---
OT Current Status-Daily Note Subjective Pt alert, sitting in recliner. Pt agrees to therapy. No c/o pain. Pt continues to need therapeutic listening due to increase anxiety which increases mouth breathing that decreases O2 levels. Compassionate encouragement and cues for correct breathing technique which decrease anxiety that pt is able to maint ain O2 levels. Mental Status/Objective Patient Orientation: Person, Confused Attachments: IV ADL-Treatment Pt independent with eating. Pt is setup for urinal use to urinate in sitting. Pt ambulates to [facility] area with O2 at 4L maintaining 91% and above then when O2 decreased to 3L for resting pt tended to stay at 88% to 90%. Pt then completed fine motor tasks to increase pinch/coding director strength for daily functional tasks. Sitting at table to complete fine motor tasks, pt needed minimal recovery breaks though did require encouragement and direction for correct breathing techniques. After session, PT took over care of pt. All needs met in room. Therapy Code Descriptions/Definitions Functional [place] Measure: 0=Not Assessed/NA 4=Minimal Assistance 1=Total Assistance 5=Supervision or Setup 2=Maximal Assistance 6=Modified [place] 3=Moderate Assistance 7=Complete IndependenceSCALE: Activities may be completed with or without assistive devices. 3-Sbwuhaosrd-ffdhopk completes the activity by him/herself with no assistance from a helper. 5-Set-up or Clean-up Assistance-helper sets up or cleans up; patient completes activity. [place] assists only prior to or following the activity. 4-Supervision or Touching Assistance-helper provides verbal cues and/or touching/steadying and/or contact guard assistance as patient completes activity. Assistance may be provided throughout the activity or intermittently. 3-Partial/Moderate Assistance-helper does LESS THAN HALF the effort. [place] lifts, holds or supports trunk or limbs, but provides less than half the effort. 2-Substantial/Maximal Assistance-helper does MORE THAN HALF the effort. [place] lifts or holds trunk or limbs and provides more than half the effort. 5-Eihnhghex-vrxyst does ALL the effort. Patient does none of the effort to complete the activity. Or, the assistance of 2 or more helpers is required for the patient to complete the activity. If activity was not attempted, code reason: 7-Patient Refused. 9-Not Applicable-not attempted and the patient did not perform the activity before the current illness, exacerbation or injury. 10-Not Attempted due to Environmental Limitations-(lack of equipment, weather restraints, etc.). 88-Not Attempted due to Medical Conditions or Safety Concerns. Eating (QC): 6 OT Short Term Goals Short Term Goals Time Frame: July 22, 2022 Oral hygiene: 5 Toileting hygiene: 4 Shower/bathe self: 4 Lower body dressin Putting on/taking off footwear: 4 OT Checkout Supervisor Goals Senior Care Goals Time Frame: July 29, 2022 Acute change in mental status: 1 Inattention: 1 Disorganized thinkin Altered level of consciousness: 0 Eating (QC): 6 Oral Hygiene (QC): 6 Toileting Hygiene (QC): 6 Shower/Bathe Self (QC): 6 Upper Body Dressing (QC): 6 Lower Body Dressing (QC): 6 On/Off Footwear (QC): 6 Additional Goals: 1-Demonstrate ADL Tasks, 2-Verbalize Understanding, 3-ImproveStrength/Yoanna 1=Demonstrate adherence to instructed precautions during ADL tasks. 2=Patient will verbalize/demonstrate understanding of assistive devices/modifications for ADL. 3=Patient will improve strength/tolerance for activity to enable patient to perform ADL's. OT Education/Plan Problem List/Assessment Assessment: Decreased Activ Tolerance, Decreased Safety Aware, Impaired Self- Care Skills Discharge Recommendations Plan/Recommendations: Continue POC Treatment Plan/Plan of Care Patient would benefit from OT for education, treatment and training to promote independence in ADL's, mobility, safety and/or upper extremity function for ADL's. Plan of Care: ADL Retraining, Functional Mobility, Group Exercise/Act as Ind, UE Funct Exercise/Act Treatment Duration: July 29, 2022 Frequency: Modified Program (IRF) (24/09) Estimated Hrs Per Day: 1.5 hours per day Agreement: Yes Rehab Potential: Poor (In correlation to Speech Pathology Rehab Potential.) Time Start Time: 12:45 Stop Time: 13:30 DATE: Jul 01, 2022 Total Time Billed (hr/min): 45 Billed Treatment Time 1 visit-ADL 1 (20 min) FA 1 (10 min) EX 1 (15 min) ATTILA VÁSQUEZ Jul 01, 2022 13:51
--- NOTE | 2022-07-01 14:18 | Physical Therapy Daily Note ---
PT Daily Note-Current Subjective Pt found seated in chair upon entry. Agreed to PT. Reports that he is very tired and does not think he can walk very far. No reports of pain. Pain Section J - Health Conditions 1. Rarely or not at all 2. Occasionally 3. Frequently 4. Almost constantly 8. Unable to answer Pain Effect on Sleep: 1 Pain Interference with Therapy: 1 Pain Interference w/Day-to-Day: 1 Mental Status Patient Orientation: Person, Place Attachments: Oxygen 4L /c activity, 3L at rest Transfers SCALE: Activities may be completed with or without assistive devices. 9-Bqceluhtgf-mbittim completes the activity by him/herself with no assistance from a helper. 5-Set-up or Clean-up Assistance-helper sets up or cleans up; patient completes activity. [place] assists only prior to or following the activity. 4-Supervision or Touching Assistance-helper provides verbal cues and/or touching/steadying and/or contact guard assistance as patient completes activity. Assistance may be provided throughout the activity or intermittently. 3-Partial/Moderate Assistance-helper does LESS THAN HALF the effort. [place] lifts, holds or supports trunk or limbs, but provides less than half the effort. 2-Substantial/Maximal Assistance-helper does MORE THAN HALF the effort. [place] lifts or holds trunk or limbs and provides more than half the effort. 1-Aqeisennr-gdjkjh does ALL the effort. Patient does none of the effort to complete the activity. Or, the assistance of 2 or more helpers is required for the patient to complete the activity. If activity was not attempted, code reason: 7-Patient Refused. 9-Not Applicable-not attempted and the patient did not perform the activity before the current illness, exacerbation or injury. 10-Not Attempted due to Environmental Limitations-(lack of equipment, weather restraints, etc.). 88-Not Attempted due to Medical Conditions or Safety Concerns. Sit to Stand (QC): 5 Pt set up assist for correct placement of FWW before completing sit to stand transfer. Weight Bearing Full Weight Bearing Full Weight Bearing Gait Training Does the Patient Walk?: Yes Distance: 20 Walk 10 feet (QC): 4 Gait Persons Needed: 1 Gait Assistive Device: FWW Pt displays limited endurance /c gait training this visit. Ambulates 20 feet using FWW /c CGA for safety due to endurance and strength deficits. Displays steady gait speed and no loss of balance /c ambulation. Exercises Seated exercises: LAQs x 10 Hip add /c ball x 10 Supine exercises: SLRs x 10 Quad sets x 10 Heel slides x 10 Assessment Current Status: Fair Progress Pt displays limited endurance /c treatment today. Demonstrates good muscle s trength /c therapeutic exercises. Ambulated 20 feet /c use of FWW and CGA for safety. No loss of balance displayed /c ambulation. Continue to progress pt as tolerated per POC to improve strength, endurance, and functional ability. PT Shelter Goals Shelter Goals PT Shelter Goals Time Frame: July 20, 2022 Roll Left & Right (QC): 6 Sit to Lying (QC): 6 Lying-Sitting on Side/Bed(QC): 6 Sit to Stand (QC): 6 Chair/Fgg-nt-Mnirv Xfer(QC): 6 Toilet Transfer (QC): 6 Car Transfer (QC): 5 Does the Patient Walk: Yes Walk 10 feet (QC): 5 (with O2 assist as needed) Walk 50ft with 2 Turns (QC): 5 (with O2 assist as needed and FWW) Walk 150 ft (QC): 4 (with FWW and O2 assist, CGA due to severity of endurance deficit) Walking 10ft on Uneven Surface: 5 (with FWW and O2 assist) 1 Step (curb) (QC): 5 4 Steps (QC): 5 12 Steps (QC): 9 Picking up an Object (QC): 6 (FWW and pet sitting) Does the Pt use WC or Scooter?: No Wheel 50 feet with 2 turns (QC: 9 Wheel 150 feet: 9 PT Plan Treatment/Plan Treatment Plan: Continue Plan of Care Treatment Plan: Bed Mobility, Education, Functional Activity Yoanna, Functional Strength, Group Therapy, Gait, Safety, Therapeutic Exercise, Transfers Treatment Duration: July 20, 2022 Frequency: Modified Program (IRF) Estimated Hrs Per Day: Other (24/09 program) Patient and/or Family Agrees t: Yes Time Time In: 1330 Time Out: 1400 DATE: Jul 01, 2022 Total Billed Treatment Time: 30 Total Billed Treatment 1 visit GT x 1 EX x 1 MAJOR,CASSIE SOAPING DEPARTMENT SUPERVISOR Jul 01, 2022 14:18
[2022-07-01] MEDS: ONDANSETRON 4 MG (ZOFRAN) ORAL DISSOLVE TAB PO PRN (17:49)
[2022-07-01 20:00] VITALS: BP 120/88
[2022-07-01] MEDS: MELATONIN 3 MG TABLET PO PRN (21:54)
[2022-07-01 22:45] VITALS: BP 120/88
[2022-07-02] MEDS: RT-ALBUTEROL/IPRATROPIUM 3 ML (DUONEB) VIAL INH SCH ×4 (03:28→19:48)
--- NOTE | 2022-07-02 06:09 | PM&R Progress Note ---
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 06/30/2022: Doing well Confusion is noted with poor recall Participation is good No falls Labs reviewed Review of Systems General: Fatigue, Malaise Objective Exam Vital Signs Vital Signs Date Time Temp Pulse Resp B/P (MAP) Pulse Ox O2 Delivery O2 Flow Rate FiO2 07/02/22 14:48 98 Nasal Cannula 4.00 07/02/22 12:31 72 20 133/78 (96) 07/02/22 07:13 36.4 07/01/22 07:00 32 Capillary Refill : General Appearance: No Apparent Distress, WD/WN, Chronically ill HEENT: PERRL/EOMI, Normal ENT Inspection, Pharynx Normal Neck: Full Range of Motion, Normal Inspection, Non Tender, Supple, Carotid Bruit Respiratory: Chest Non Tender, No Accessory Muscle Use, No Respiratory Distress, Crackles, Decreased Breath Sounds Cardiovascular: No Edema, No Gallop, No JVD, No Murmur, Normal Peripheral Pulses, Irregularly Irregular Gastrointestinal: Normal Bowel Sounds, No Organomegaly, No Pulsatile Mass, Non Tender, Soft Back: Normal Inspection, No CVA Tenderness, No Vertebral Tenderness Extremity: Normal Capillary Refill, Normal Inspection, Normal Range of Motion, Non Tender, No Calf Tenderness, No Pedal Edema Neurologic/Psychiatric: Alert, Oriented x3, Normal Mood/Affect, 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 FIM Transfers Therapy Code Descriptions/Definitions Functional [place] Measure: 0=Not Assessed/NA 4=Minimal Assistance 1=Total Assistance 5=Supervision or Setup 2=Maximal Assistance 6=Modified [place] 3=Moderate Assistance 7=Complete IndependenceSCALE: Activities may be completed with or without assistive devices. 9-Hxkfxnthig-upqtxos completes the activity by him/herself with no assistance from a helper. 5-Set-up or Clean-up Assistance-helper sets up or cleans up; patient completes activity. [place] assists only prior to or following the activity. 4-Supervision or Touching Assistance-helper provides verbal cues and/or touching/steadying and/or contact guard assistance as patient completes activity. Assistance may be provided throughout the activity or intermittently. 3-Partial/Moderate Assistance-helper does LESS THAN HALF the effort. [place] lifts, holds or supports trunk or limbs, but provides less than half the effort. 2-Substantial/Maximal Assistance-helper does MORE THAN HALF the effort. [place] lifts or holds trunk or limbs and provides more than half the effort. 0-Tkuypcsvc-gzkwbw does ALL the effort. Patient does none of the effort to complete the activity. Or, the assistance of 2 or more helpers is required for the patient to complete the activity. If activity was not attempted, code reason: 7-Patient Refused. 9-Not Applicable-not attempted and the patient did not perform the activity before the current illness, exacerbation or injury. 10-Not Attempted due to Environmental Limitations-(lack of equipment, weather restraints, etc.). 88-Not Attempted due to Medical Conditions or Safety Concerns. Roll Left to Right (QC): 6 (with bed rail) Sit to Lying (QC): 6 (with bed rail) Sit to Stand (QC): 5 Chair/Ldp-zz-Opxfb Xfer(QC): 4 (CGA-SBA with FWW use and O2 assist) Car Transfer (QC): 88 Gait Training Does the Patient Walk?: Yes Distance: 20 Walk 10 feet (QC): 4 Walk 50 ft with 2 Turns(QC): 4 (CGA with FWW and O2 assist, cues to PLB) Walk 150 ft (QC): 88 (due to air hunger, desat, activity tolerance deficits.) Walking 10ft/uneven surface-QC: 88 (due to air hunger, desat, activity tolerance deficits.) Gait Persons Needed: 1 Gait Assistive Device: FWW Wheelchair Training Does the Pt Use a Wheelchair?: No Wheel 50 ft with 2 turns (QC): 9 Wheel 150 ft (QC): 9 Stair Training 1 Step (curb) (QC): 88 (due to air hunger, desat, activity tolerance deficits.) 4 Steps (QC): 88 (due to air hunger, desat, activity tolerance deficits.) 12 Steps (QC): 88 (due to air hunger, desat, activity tolerance deficits.) Balance Picking up an Object (QC): 88 (due to air hunger, anxiety, desat, activity tolerance deficits.) ADL-Treatment Eating (QC): 6 Oral Hygiene (QC): 6 Shower/Bathe Self (QC): 4 Upper Body Dressing (QC): 5 Lower Body Dressing (QC): 4 On/Off Footwear (QC): 5 Toileting Hygiene (QC): 4 (SBA for safety while pt urination while standing at sink.) Toilet Transfer (QC): 4 (Using grabbars) Assessment/Plan Assessment and Plan Assess & Plan/Chief Complaint Assessment: COPD myopathy Acute on Chronic RF w/ hypoxia and hypercapnia Acute COPD Exacerbation Afib w/ RVR CAD w/ history of CABG Alcohol Withdrawal Hyponatremia DM type 2 Debility Smoker Confusion/poor recall Plan: Monitor closely Pain control O2 Nebs Aggressive PT OT 06/30/2022: Monitor closely Fall risk 07/01/2022: Monitor lungs closely 07/02/2022: Monitor lungs (1) Myopathy (2) Acute on chronic respiratory failure with hypoxia and hypercapnia Status: Acute (3) Acute exacerbation of chronic obstructive pulmonary disease (COPD) Status: Acute (4) Atrial fibrillation with RVR (5) Coronary artery disease without angina pectoris Status: Chronic (6) Alcoholism Status: Acute (7) Primary hypertension (8) CAD (coronary artery disease) Status: Chronic (9) Mixed hyperlipidemia (10) Anemia due to acute blood loss Status: Acute (11) HLD (hyperlipidemia) Status: Chronic (12) Alcohol intoxication in active alcoholic Status: Acute (13) Heavy smoker ALEXANDRA JUDGE DO Jul 02, 2022 06:09
[2022-07-02] MEDS: MULTIVIT W/MINERALS TAB (THERAGRAN M) PO SCH (06:45)
[2022-07-02] MEDS: RT-ALBUTEROL/IPRATROPIUM 3 ML (DUONEB) VIAL INH PRN (07:09)
[2022-07-02 07:13] VITALS: BP 159/89
[2022-07-02] MEDS: RT-BUDESONIDE NEBS 0.5 MG/2ML (PULMICORT) AMP INH SCH ×2 (07:38→19:48)
[2022-07-02] MEDS: SENNOSIDES 8.6 MG (SENOKOT) TAB PO SCH ×2 (08:20→20:25)
[2022-07-02] MEDS: DOCUSATE SODIUM 100 MG (COLACE) CAP PO SCH ×2 (08:20→20:25)
[2022-07-02] MEDS: AMIODARONE 200 MG (CORDARONE) TAB PO SCH ×2 (08:20→20:24)
[2022-07-02] MEDS: FOLIC ACID 1 MG TAB PO SCH (08:20)
[2022-07-02] MEDS: APIXABAN 5 MG (ELIQUIS) TABLET PO SCH ×2 (08:20→20:24)
[2022-07-02] MEDS: polyethylene glycoL POWDER 17 GM (MIRALAX) PACK PO SCH ×2 (08:21→20:25)
[2022-07-02] MEDS: ALPRAZolam 0.25 MG (XANAX) TAB PO PRN ×2 (12:15→20:24)
[2022-07-02 12:31] VITALS: BP 133/78
[2022-07-02] MEDS: LORazepam 1 MG (ATIVAN) TAB PO PRN (13:34)
[2022-07-02] MEDS: MELATONIN 3 MG TABLET PO PRN (20:24)
[2022-07-02] MEDS: CATHETER FLUSH 10 ML SYR IV PRN (20:25)
[2022-07-02 20:31] VITALS: BP 134/80
[2022-07-03] MEDS: RT-ALBUTEROL/IPRATROPIUM 3 ML (DUONEB) VIAL INH SCH ×4 (01:59→21:02)
--- NOTE | 2022-07-03 06:23 | PM&R Progress Note ---
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 06/30/2022: Doing well Confusion is noted with poor recall Participation is good No falls Labs reviewed Review of Systems General: Fatigue, Malaise Neurological: Weakness Objective Exam Vital Signs Vital Signs Date Time Temp Pulse Resp B/P (MAP) Pulse Ox O2 Delivery O2 Flow Rate FiO2 07/03/22 13:15 Nasal Cannula 3.00 07/03/22 07:19 99 07/03/22 07:15 36.4 65 18 111/64 (80) 07/01/22 07:00 32 Capillary Refill : General Appearance: No Apparent Distress, WD/WN, Chronically ill HEENT: PERRL/EOMI, Normal ENT Inspection, Pharynx Normal Neck: Full Range of Motion, Normal Inspection, Non Tender, Supple, Carotid Bruit Respiratory: Chest Non Tender, No Accessory Muscle Use, No Respiratory Distress, Crackles, Decreased Breath Sounds Cardiovascular: No Edema, No Gallop, No JVD, No Murmur, Normal Peripheral Pulses, Irregularly Irregular Gastrointestinal: Normal Bowel Sounds, No Organomegaly, No Pulsatile Mass, Non Tender, Soft Back: Normal Inspection, No CVA Tenderness, No Vertebral Tenderness Extremity: Normal Capillary Refill, Normal Inspection, Normal Range of Motion, Non Tender, No Calf Tenderness, No Pedal Edema Neurologic/Psychiatric: Alert, Oriented x3, Normal 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 FIM Transfers Therapy Code Descriptions/Definitions Functional [place] Measure: 0=Not Assessed/NA 4=Minimal Assistance 1=Total Assistance 5=Supervision or Setup 2=Maximal Assistance 6=Modified [place] 3=Moderate Assistance 7=Complete IndependenceSCALE: Activities may be completed with or without assistive devices. 0-Lgvowahxpl-tdrbggr completes the activity by him/herself with no assistance from a helper. 5-Set-up or Clean-up Assistance-helper sets up or cleans up; patient completes activity. [place] assists only prior to or following the activity. 4-Supervision or Touching Assistance-helper provides verbal cues and/or touching/steadying and/or contact guard assistance as patient completes activity. Assistance may be provided throughout the activity or intermittently. 3-Partial/Moderate Assistance-helper does LESS THAN HALF the effort. [place] lifts, holds or supports trunk or limbs, but provides less than half the effort. 2-Substantial/Maximal Assistance-helper does MORE THAN HALF the effort. [place] lifts or holds trunk or limbs and provides more than half the effort. 4-Bgnzdxbjc-qilgte does ALL the effort. Patient does none of the effort to complete the activity. Or, the assistance of 2 or more helpers is required for the patient to complete the activity. If activity was not attempted, code reason: 7-Patient Refused. 9-Not Applicable-not attempted and the patient did not perform the activity before the current illness, exacerbation or injury. 10-Not Attempted due to Environmental Limitations-(lack of equipment, weather restraints, etc.). 88-Not Attempted due to Medical Conditions or Safety Concerns. Roll Left to Right (QC): 6 (with bed rail) Sit to Lying (QC): 6 (with bed rail) Sit to Stand (QC): 5 Chair/Njs-db-Hafxk Xfer(QC): 4 (CGA-SBA with FWW use and O2 assist) Car Transfer (QC): 88 Gait Training Does the Patient Walk?: Yes Distance: 20 Walk 10 feet (QC): 4 Walk 50 ft with 2 Turns(QC): 4 (CGA with FWW and O2 assist, cues to PLB) Walk 150 ft (QC): 88 (due to air hunger, desat, activity tolerance deficits.) Walking 10ft/uneven surface-QC: 88 (due to air hunger, desat, activity tolerance deficits.) Gait Persons Needed: 1 Gait Assistive Device: FWW Wheelchair Training Does the Pt Use a Wheelchair?: No Wheel 50 ft with 2 turns (QC): 9 Wheel 150 ft (QC): 9 Stair Training 1 Step (curb) (QC): 88 (due to air hunger, desat, activity tolerance deficits.) 4 Steps (QC): 88 (due to air hunger, desat, activity tolerance deficits.) 12 Steps (QC): 88 (due to air hunger, desat, activity tolerance deficits.) Balance Picking up an Object (QC): 88 (due to air hunger, anxiety, desat, activity tolerance deficits.) ADL-Treatment Eating (QC): 6 Oral Hygiene (QC): 6 Shower/Bathe Self (QC): 4 Upper Body Dressing (QC): 5 Lower Body Dressing (QC): 4 On/Off Footwear (QC): 5 Toileting Hygiene (QC): 4 (SBA for safety while pt urination while standing at sink.) Toilet Transfer (QC): 4 (Using grabbars) Assessment/Plan Assessment and Plan Assess & Plan/Chief Complaint Assessment: COPD myopathy Acute on Chronic RF w/ hypoxia and hypercapnia Acute COPD Exacerbation Afib w/ RVR CAD w/ history of CABG Alcohol Withdrawal Hyponatremia DM type 2 Debility Smoker Confusion/poor recall Plan: Monitor closely Pain control O2 Nebs Aggressive PT OT 06/30/2022: Monitor closely Fall risk 07/01/2022: Monitor lungs closely 07/02/2022: Monitor lungs 07/03/2022: High risk for NH placement (1) Myopathy (2) Acute on chronic respiratory failure with hypoxia and hypercapnia Status: Acute (3) Acute exacerbation of chronic obstructive pulmonary disease (COPD) Status: Acute (4) Atrial fibrillation with RVR (5) Coronary artery disease without angina pectoris Status: Chronic (6) Alcoholism Status: Acute (7) Primary hypertension (8) CAD (coronary artery disease) Status: Chronic (9) Mixed hyperlipidemia (10) Anemia due to acute blood loss Status: Acute (11) HLD (hyperlipidemia) Status: Chronic (12) Alcohol intoxication in active alcoholic Status: Acute (13) Heavy smoker ALEXANDRA JUDGE DO Jul 03, 2022 06:23
[2022-07-03] MEDS: MULTIVIT W/MINERALS TAB (THERAGRAN M) PO SCH (06:31)
[2022-07-03 07:15] VITALS: BP 111/64
[2022-07-03] MEDS: RT-BUDESONIDE NEBS 0.5 MG/2ML (PULMICORT) AMP INH SCH ×2 (07:18→21:02)
[2022-07-03] MEDS: AMIODARONE 200 MG (CORDARONE) TAB PO SCH ×2 (08:53→21:34)
[2022-07-03] MEDS: APIXABAN 5 MG (ELIQUIS) TABLET PO SCH ×2 (08:53→21:35)
[2022-07-03] MEDS: DOCUSATE SODIUM 100 MG (COLACE) CAP PO SCH ×2 (08:53→21:35)
[2022-07-03] MEDS: FOLIC ACID 1 MG TAB PO SCH (08:53)
[2022-07-03] MEDS: SENNOSIDES 8.6 MG (SENOKOT) TAB PO SCH ×2 (08:56→21:35)
[2022-07-03] MEDS: polyethylene glycoL POWDER 17 GM (MIRALAX) PACK PO SCH ×2 (08:56→21:35)
[2022-07-03] MEDS: LORazepam 1 MG (ATIVAN) TAB PO PRN ×2 (09:07→21:34)
[2022-07-03 19:51] VITALS: BP 136/79
[2022-07-04] MEDS: RT-ALBUTEROL/IPRATROPIUM 3 ML (DUONEB) VIAL INH SCH ×4 (02:02→18:00)
--- NOTE | 2022-07-04 05:02 | PM&R Progress Note ---
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 06/30/2022: Doing well Confusion is noted with poor recall Participation is good No falls Labs reviewed Review of Systems General: Fatigue, Malaise Pulmonary: Dyspnea, Cough Gastrointestinal: Nausea Objective Exam Vital Signs Vital Signs Date Time Temp Pulse Resp B/P (MAP) Pulse Ox O2 Delivery O2 Flow Rate FiO2 07/04/22 10:56 98 Nasal Cannula 3.00 07/04/22 09:25 36.0 63 07/04/22 07:33 22 146/84 (104) 07/01/22 07:00 32 Capillary Refill : General Appearance: No Apparent Distress, WD/WN, Chronically ill HEENT: PERRL/EOMI, Normal ENT Inspection, Pharynx Normal Neck: Full Range of Motion, Normal Inspection, Non Tender, Supple, Carotid Bruit Respiratory: Chest Non Tender, No Accessory Muscle Use, No Respiratory Distress, Crackles, Decreased Breath Sounds Cardiovascular: No Edema, No Gallop, No JVD, No Murmur, Normal Peripheral Pulses, Irregularly Irregular Gastrointestinal: Normal Bowel Sounds, No Organomegaly, No Pulsatile Mass, Non Tender, Soft Back: Normal Inspection, No CVA Tenderness, No Vertebral Tenderness Extremity: Normal Capillary Refill, Normal Inspection, Normal Range of Motion, Non Tender, No Calf Tenderness, No Pedal Edema Neurologic/Psychiatric: Alert, Oriented x3, Normal 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 FIM Transfers Therapy Code Descriptions/Definitions Functional [place] Measure: 0=Not Assessed/NA 4=Minimal Assistance 1=Total Assistance 5=Supervision or Setup 2=Maximal Assistance 6=Modified [place] 3=Moderate Assistance 7=Complete IndependenceSCALE: Activities may be completed with or without assistive devices. 0-Fvzaxhitzh-dbjapwi completes the activity by him/herself with no assistance from a helper. 5-Set-up or Clean-up Assistance-helper sets up or cleans up; patient completes activity. [place] assists only prior to or following the activity. 4-Supervision or Touching Assistance-helper provides verbal cues and/or touching/steadying and/or contact guard assistance as patient completes activity. Assistance may be provided throughout the activity or intermittently. 3-Partial/Moderate Assistance-helper does LESS THAN HALF the effort. [place] lifts, holds or supports trunk or limbs, but provides less than half the effort. 2-Substantial/Maximal Assistance-helper does MORE THAN HALF the effort. [place] lifts or holds trunk or limbs and provides more than half the effort. 1-Amnyxtsdu-ahiqbo does ALL the effort. Patient does none of the effort to complete the activity. Or, the assistance of 2 or more helpers is required for the patient to complete the activity. If activity was not attempted, code reason: 7-Patient Refused. 9-Not Applicable-not attempted and the patient did not perform the activity before the current illness, exacerbation or injury. 10-Not Attempted due to Environmental Limitations-(lack of equipment, weather restraints, etc.). 88-Not Attempted due to Medical Conditions or Safety Concerns. Roll Left to Right (QC): 6 (with bed rail) Sit to Lying (QC): 6 (with bed rail) Sit to Stand (QC): 5 Chair/Hno-zz-Sikbu Xfer(QC): 4 (CGA-SBA with FWW use and O2 assist) Car Transfer (QC): 88 Gait Training Does the Patient Walk?: Yes Distance: 20 Walk 10 feet (QC): 4 Walk 50 ft with 2 Turns(QC): 4 (CGA with FWW and O2 assist, cues to PLB) Walk 150 ft (QC): 88 (due to air hunger, desat, activity tolerance deficits.) Walking 10ft/uneven surface-QC: 88 (due to air hunger, desat, activity tolerance deficits.) Gait Persons Needed: 1 Gait Assistive Device: FWW Wheelchair Training Does the Pt Use a Wheelchair?: No Wheel 50 ft with 2 turns (QC): 9 Wheel 150 ft (QC): 9 Stair Training 1 Step (curb) (QC): 88 (due to air hunger, desat, activity tolerance deficits.) 4 Steps (QC): 88 (due to air hunger, desat, activity tolerance deficits.) 12 Steps (QC): 88 (due to air hunger, desat, activity tolerance deficits.) Balance Picking up an Object (QC): 88 (due to air hunger, anxiety, desat, activity tolerance deficits.) ADL-Treatment Eating (QC): 6 Oral Hygiene (QC): 6 Shower/Bathe Self (QC): 4 Upper Body Dressing (QC): 5 Lower Body Dressing (QC): 4 On/Off Footwear (QC): 5 Toileting Hygiene (QC): 4 (SBA for safety while pt urination while standing at sink.) Toilet Transfer (QC): 4 (Using grabbars) Assessment/Plan Assessment and Plan Assess & Plan/Chief Complaint Assessment: COPD myopathy Acute on Chronic RF w/ hypoxia and hypercapnia Acute COPD Exacerbation Afib w/ RVR CAD w/ history of CABG Alcohol Withdrawal Hyponatremia DM type 2 Debility Smoker Confusion/poor recall Plan: Monitor closely Pain control O2 Nebs Aggressive PT OT 06/30/2022: Monitor closely Fall risk 07/01/2022: Monitor lungs closely 07/02/2022: Monitor lungs 07/03/2022: High risk for NH placement 07/04/2022: Continue slow recovery (1) Myopathy (2) Acute on chronic respiratory failure with hypoxia and hypercapnia Status: Acute (3) Acute exacerbation of chronic obstructive pulmonary disease (COPD) Status: Acute (4) Atrial fibrillation with RVR (5) Coronary artery disease without angina pectoris Status: Chronic (6) Alcoholism Status: Acute (7) Primary hypertension (8) CAD (coronary artery disease) Status: Chronic (9) Mixed hyperlipidemia (10) Anemia due to acute blood loss Status: Acute (11) HLD (hyperlipidemia) Status: Chronic (12) Alcohol intoxication in active alcoholic Status: Acute (13) Heavy smoker ALEXANDRA JUDGE DO Jul 04, 2022 05:02
[2022-07-04 05:24] LABS: BASOPHILS % (AUTO) 1 % (0-10); EOSINOPHILS # (AUTO) 0.2 10^3/uL (0.0-0.3); EOSINOPHILS % (AUTO) 5 % (0-10); HEMATOCRIT 30 % (40-54); HEMOGLOBIN 9.9 g/dL (13.3-17.7); LYMPHOCYTES # (AUTO) 0.9 10^3/uL (1.0-4.0); LYMPHOCYTES % (AUTO) 21 % (12-44); MEAN CORPUSCULAR HEMOGLOBIN 36 pg (25-34); MEAN CORPUSCULAR HGB CONC 34 g/dL (32-36); MEAN CORPUSCULAR VOLUME 106 fL (80-99); MEAN PLATELET VOLUME 8.9 fL (9.0-12.2); MONOCYTES # (AUTO) 0.7 10^3/uL (0.0-1.0); MONOCYTES % (AUTO) 16 % (0-12); NEUTROPHILS # (AUTO) 2.5 10^3/uL (1.8-7.8); NEUTROPHILS % (AUTO) 58 % (42-75); PLATELET COUNT 238 10^3/uL (130-400); WHITE BLOOD COUNT 4.3 10^3/uL (4.3-11.0)
[2022-07-04 05:37] LABS: POTASSIUM 4.3 MMOL/L (3.6-5.0)
[2022-07-04 05:38] LABS: CALCIUM 8.7 MG/DL (8.5-10.1)
[2022-07-04 05:40] LABS: TOTAL PROTEIN 5.5 GM/DL (6.4-8.2)
[2022-07-04 05:41] LABS: BILIRUBIN,TOTAL 0.3 MG/DL (0.1-1.0)
[2022-07-04 05:43] LABS: CREATININE SERUM 0.63 MG/DL (0.60-1.30)
[2022-07-04] MEDS: MULTIVIT W/MINERALS TAB (THERAGRAN M) PO SCH (06:30)
[2022-07-04] MEDS: RT-BUDESONIDE NEBS 0.5 MG/2ML (PULMICORT) AMP INH SCH ×2 (07:21→21:14)
[2022-07-04 07:33] VITALS: BP 146/84
--- NOTE | 2022-07-04 07:41 | Occupational Ther Daily Note ---
OT Current Status-Daily Note Subjective Pt alert, sitting in recliner. Pt agrees to therapy. No c/o pain at this time. Mental Status/Objective Patient Orientation: Person, Place, Time, Situation ADL-Treatment Set up to use urinal in chair. Independent with eating. Pt takes increased time to complete all tasks due to anxiety and slow movements. After therapy, pt left in care of PT. All needs met in room. Therapy Code Descriptions/Definitions Functional [place] Measure: 0=Not Assessed/NA 4=Minimal Assistance 1=Total Assistance 5=Supervision or Setup 2=Maximal Assistance 6=Modified [place] 3=Moderate Assistance 7=Complete IndependenceSCALE: Activities may be completed with or without assistive devices. 5-Lsybzmxmzh-kryyrwf completes the activity by him/herself with no assistance from a helper. 5-Set-up or Clean-up Assistance-helper sets up or cleans up; patient completes activity. [place] assists only prior to or following the activity. 4-Supervision or Touching Assistance-helper provides verbal cues and/or touching/steadying and/or contact guard assistance as patient completes activity. Assistance may be provided throughout the activity or intermittently. 3-Partial/Moderate Assistance-helper does LESS THAN HALF the effort. [place] lifts, holds or supports trunk or limbs, but provides less than half the effort. 2-Substantial/Maximal Assistance-helper does MORE THAN HALF the effort. [place] lifts or holds trunk or limbs and provides more than half the effort. 4-Ozbmdddie-zfufoq does ALL the effort. Patient does none of the effort to complete the activity. Or, the assistance of 2 or more helpers is required for the patient to complete the activity. If activity was not attempted, code reason: 7-Patient Refused. 9-Not Applicable-not attempted and the patient did not perform the activity before the current illness, exacerbation or injury. 10-Not Attempted due to Environmental Limitations-(lack of equipment, weather restraints, etc.). 88-Not Attempted due to Medical Conditions or Safety Concerns. Eating (QC): 6 Toileting Hygiene (QC): 5 OT Short Term Goals Short Term Goals Time Frame: July 22, 2022 Oral hygiene: 5 Toileting hygiene: 4 Shower/bathe self: 4 Lower body dressin Putting on/taking off footwear: 4 OT Drop Wire Stringer Goals Drop Wire Stringer Goals Time Frame: July 29, 2022 Acute change in mental status: 1 Inattention: 1 Disorganized thinkin Altered level of consciousness: 0 Eating (QC): 6 Oral Hygiene (QC): 6 Toileting Hygiene (QC): 6 Shower/Bathe Self (QC): 6 Upper Body Dressing (QC): 6 Lower Body Dressing (QC): 6 On/Off Footwear (QC): 6 Additional Goals: 1-Demonstrate ADL Tasks, 2-Verbalize Understanding, 3- ImproveStrength/[place] 1=Demonstrate adherence to instructed precautions during ADL tasks. 2=Patient will verbalize/demonstrate understanding of assistive devices/modifications for ADL. 3=Patient will improve strength/tolerance for activity to enable patient to perform ADL's. OT Education/Plan Problem List/Assessment Assessment: Decreased Activ Tolerance, Impaired Self-Care Skills Discharge Recommendations Plan/Recommendations: Continue POC Treatment Plan/Plan of Care Patient would benefit from OT for education, treatment and training to promote independence in ADL's, mobility, safety and/or upper extremity function for ADL's. Plan of Care: ADL Retraining, Functional Mobility, Group Exercise/Act as Ind, UE Funct Exercise/Act Treatment Duration: July 29, 2022 Frequency: Modified Program (IRF) (24/09) Estimated Hrs Per Day: 1.5 hours per day Agreement: Yes Rehab Potential: Poor (In correlation to Speech Pathology Rehab Potential.) Time Start Time: 07:30 Stop Time: 08:00 DATE: Jul 04, 2022 Total Time Billed (hr/min): 30 Billed Treatment Time 1 visit-ADL 2 (30 min) ATTILA VÁSQUEZ Jul 04, 2022 07:41
[2022-07-04] MEDS: AMIODARONE 200 MG (CORDARONE) TAB PO SCH ×2 (08:28→19:57)
[2022-07-04] MEDS: APIXABAN 5 MG (ELIQUIS) TABLET PO SCH ×2 (08:29→19:57)
[2022-07-04] MEDS: FOLIC ACID 1 MG TAB PO SCH (08:29)
--- NOTE | 2022-07-04 09:05 | Physical Therapy Daily Note ---
PT Daily Note-Current Subjective Pt found seated in recliner upon entry. Agreed to PT. Reports R hip soreness/stiffness. Pt states that he has not noticed pain until today. Does not rate. Reports he feels short of breath throughout visit. At end of visit, pt states he is very nauseated and requests to lay in bed. Pt requests medication for nausea. Nurse notified. Pain Section J - Health Conditions 1. Rarely or not at all 2. Occasionally 3. Frequently 4. Almost constantly 8. Unable to answer Pain Effect on Sleep: 1 Pain Interference with Therapy: 1 Pain Interference w/Day-to-Day: 1 Mental Status Patient Orientation: Person, Place Attachments: Oxygen 4L Transfers SCALE: Activities may be completed with or without assistive devices. 3-Fspyqtupak-ybqsbpi completes the activity by him/herself with no assistance from a helper. 5-Set-up or Clean-up Assistance-helper sets up or cleans up; patient completes activity. [place] assists only prior to or following the activity. 4-Supervision or Touching Assistance-helper provides verbal cues and/or touching/steadying and/or contact guard assistance as patient completes activity. Assistance may be provided throughout the activity or intermittently. 3-Partial/Moderate Assistance-helper does LESS THAN HALF the effort. [place] lifts, holds or supports trunk or limbs, but provides less than half the effort. 2-Substantial/Maximal Assistance-helper does MORE THAN HALF the effort. [place] lifts or holds trunk or limbs and provides more than half the effort. 7-Cbdirgsyd-ldpeoq does ALL the effort. Patient does none of the effort to complete the activity. Or, the assistance of 2 or more helpers is required for the patient to complete the activity. If activity was not attempted, code reason: 7-Patient Refused. 9-Not Applicable-not attempted and the patient did not perform the activity before the current illness, exacerbation or injury. 10-Not Attempted due to Environmental Limitations-(lack of equipment, weather restraints, etc.). 88-Not Attempted due to Medical Conditions or Safety Concerns. Sit to Lying (QC): 6 Sit to Stand (QC): 6 Toilet Transfer (QC): 4 Pt independent /c sit to stand and sit to lying transfers. SBA /c toilet transfers for safety due to balance deficits. Toilet transfer complete x 2. Weight Bearing Full Weight Bearing Full Weight Bearing Gait Training Does the Patient Walk?: Yes Distance: 30, 75, 50, 50 Walk 10 feet (QC): 4 Walk 50 ft with 2 Turns(QC): 4 Gait Persons Needed: 1 Gait Assistive Device: FWW Pt able to ambulate up to 75 feet before requiring a seated rest break. Uses FWW to complete. Pt SBA /c gait training. Displays slight unsteadiness while completing turns and required CGA for safety. Demonstrates slow gait pattern /c short step lengths. Treatments Seated exercises: Hip add /c ball x 15 Hip abd /c RTB x 15 Hamstring curls /c RTB x 15 B Heel/toe raises pushing on AirX x 15 Marching /c RTB x 15 B O2 saturations Seated pre-treatment: 91% post-gait 30 feet seated: 95-98% post-gait 50 feet seated: 99% post-treatment seated on edge of bed: 100% Assessment Current Status: Fair Progress Pt displays shortness of breath throughout visit. O2 saturations monitored throughout visit and did not drop below 91% at any point. O2 saturation at 100% post-treatment. Pt displays good muscle strength and endurance /c therapeutic exercises. Able to ambulate up to 75 feet /c use of FWW. Required SBA and assistance /c O2 tank during gait training. Pt reported nausea near end of visit and requests to lay down in bed. Continue to progress pt as tolerated per POC to improve functional strength and ability. PT Prison Goals Prison Goals PT Associate Vice President Goals Time Frame: July 20, 2022 Roll Left & Right (QC): 6 Sit to Lying (QC): 6 Lying-Sitting on Side/Bed(QC): 6 Sit to Stand (QC): 6 Chair/Kmk-id-Fxdgq Xfer(QC): 6 Toilet Transfer (QC): 6 Car Transfer (QC): 5 Does the Patient Walk: Yes Walk 10 feet (QC): 5 (with O2 assist as needed) Walk 50ft with 2 Turns (QC): 5 (with O2 assist as needed and FWW) Walk 150 ft (QC): 4 (with FWW and O2 assist, CGA due to severity of endurance deficit) Walking 10ft on Uneven Surface: 5 (with FWW and O2 assist) 1 Step (curb) (QC): 5 4 Steps (QC): 5 12 Steps (QC): 9 Picking up an Object (QC): 6 (FWW and manager deli) Does the Pt use WC or Scooter?: No Wheel 50 feet with 2 turns (QC: 9 Wheel 150 feet: 9 PT Plan Treatment/Plan Treatment Plan: Continue Plan of Care Treatment Plan: Bed Mobility, Education, Functional Activity Yoanna, Functional Strength, Group Therapy, Gait, Safety, Therapeutic Exercise, Transfers Treatment Duration: July 20, 2022 Frequency: Modified Program (IRF) Estimated Hrs Per Day: Other (24/09 program) Patient and/or Family Agrees t: Yes Time Time In: 0800 Time Out: 929 DATE: Jul 04, 2022 Total Billed Treatment Time: 90 Total Billed Treatment 1 visit FA x 2 EX x 2 GT x 2 CASSIE ARMSTRONG PTA Jul 04, 2022 09:05
[2022-07-04 09:25] VITALS: BP 146/84
[2022-07-04] MEDS: ONDANSETRON 4 MG (ZOFRAN) ORAL DISSOLVE TAB PO PRN (09:34)
[2022-07-04] MEDS ORDERED: HYDROCORTISONE 25 MG SUPPOSITORY (ANUSOL HC) PR PRN (09:45)
--- NOTE | 2022-07-04 10:25 | Occupational Ther Daily Note ---
OT Current Status-Daily Note Subjective Pt alert, lying in bed. Nrsg has brought pain meds prior to breakfast and nausea meds just prior to OT session. Pt requires encouragement to participate in OT session. No c/o pain at this time. Pt does c/o that he needs to catch his O2, reminders to breathe through nose. Mental Status/Objective Patient Orientation: Person, Confused ADL-Treatment Cues for correct breathing technique needed throughout session. Pt takes increased time to completed each task due to slow movements, education for correct breathing technique and recovery breaks. Pt declines shower, agrees to sponge bath. Pt completes sponge bath sitting at sink with supervision for safety. Supervision for toilet transfer, independent with toileting. Independent for oral care sitting at sink. Set up for UBD and footwear. LBD with SBA for safety. Independent with bed mobility. After session, pt lying in bed with call light/phone in reach. Safety measures in place. All needs met. Therapy Code Descriptions/Definitions Functional [place] Measure: 0=Not Assessed/NA 4=Minimal Assistance 1=Total Assistance 5=Supervision or Setup 2=Maximal Assistance 6=Modified [place] 3=Moderate Assistance 7=Complete IndependenceSCALE: Activities may be completed with or without assistive devices. 1-Vezlrhrthu-nnhjbmp completes the activity by him/herself with no assistance from a helper. 5-Set-up or Clean-up Assistance-helper sets up or cleans up; patient completes activity. [place] assists only prior to or following the activity. 4-Supervision or Touching Assistance-helper provides verbal cues and/or touching/steadying and/or contact guard assistance as patient completes activity. Assistance may be provided throughout the activity or intermittently. 3-Partial/Moderate Assistance-helper does LESS THAN HALF the effort. [place] lifts, holds or supports trunk or limbs, but provides less than half the effort. 2-Substantial/Maximal Assistance-helper does MORE THAN HALF the effort. [place] lifts or holds trunk or limbs and provides more than half the effort. 3-Tahmhwmjs-bnlgvn does ALL the effort. Patient does none of the effort to complete the activity. Or, the assistance of 2 or more helpers is required for the patient to complete the activity. If activity was not attempted, code reason: 7-Patient Refused. 9-Not Applicable-not attempted and the patient did not perform the activity before the current illness, exacerbation or injury. 10-Not Attempted due to Environmental Limitations-(lack of equipment, weather restraints, etc.). 88-Not Attempted due to Medical Conditions or Safety Concerns. Oral Hygiene (QC): 6 Shower/Bathe Self (QC): 4 Upper Body Dressing (QC): 5 Lower Body Dressing (QC): 4 On/Off Footwear: 5 Toileting Hygiene (QC): 6 Toilet Transfer (QC): 4 Pt maintained 99%-100% on 4L for activity and 99%-100% on 3L. OT Short Term Goals Short Term Goals Time Frame: July 22, 2022 Oral hygiene: 5 Toileting hygiene: 4 Shower/bathe self: 4 Lower body dressin Putting on/taking off footwear: 4 OT Reacher Goals Reacher Goals Time Frame: July 29, 2022 Acute change in mental status: 1 Inattention: 1 Disorganized thinkin Altered level of consciousness: 0 Eating (QC): 6 Oral Hygiene (QC): 6 Toileting Hygiene (QC): 6 Shower/Bathe Self (QC): 6 Upper Body Dressing (QC): 6 Lower Body Dressing (QC): 6 On/Off Footwear (QC): 6 Additional Goals: 1-Demonstrate ADL Tasks, 2-Verbalize Understanding, 3- ImproveStrength/Yoanna 1=Demonstrate adherence to instructed precautions during ADL tasks. 2=Patient will verbalize/demonstrate understanding of assistive devices/modifications for ADL. 3=Patient will improve strength/tolerance for activity to enable patient to perform ADL's. OT Education/Plan Problem List/Assessment Assessment: Decreased Activ Tolerance, Decreased Safety Aware, Impaired Self- Care Skills Discharge Recommendations Plan/Recommendations: Continue POC Treatment Plan/Plan of Care Patient would benefit from OT for education, treatment and training to promote independence in ADL's, mobility, safety and/or upper extremity function for ADL's. Plan of Care: ADL Retraining, Functional Mobility, Group Exercise/Act as Ind, UE Funct Exercise/Act Treatment Duration: July 29, 2022 Frequency: Modified Program (IRF) (24/09) Estimated Hrs Per Day: 1.5 hours per day Agreement: Yes Rehab Potential: Poor (In correlation to Speech Pathology Rehab Potential.) Time Start Time: 10:00 Stop Time: 11:00 DATE: Jul 04, 2022 Total Time Billed (hr/min): 60 Billed Treatment Time 1 visit-ADL 4 (60 min) ATTILA VÁSQUEZ Jul 04, 2022 10:25
[2022-07-04] MEDS: RT-ALBUTEROL/IPRATROPIUM 3 ML (DUONEB) VIAL INH PRN ×2 (10:56→21:14)
[2022-07-04] MEDS: DOCUSATE SODIUM 100 MG (COLACE) CAP PO SCH ×2 (11:29→19:57)
[2022-07-04] MEDS: SENNOSIDES 8.6 MG (SENOKOT) TAB PO SCH ×2 (11:30→20:00)
[2022-07-04] MEDS: polyethylene glycoL POWDER 17 GM (MIRALAX) PACK PO SCH ×2 (11:30→20:00)
[2022-07-04] MEDS: MELATONIN 3 MG TABLET PO PRN (19:56)
[2022-07-04 20:00] VITALS: BP 113/72
[2022-07-05] MEDS: RT-ALBUTEROL/IPRATROPIUM 3 ML (DUONEB) VIAL INH SCH ×5 (02:35→22:03)
--- NOTE | 2022-07-05 05:11 | PM&R Progress Note ---
Subjective HPI/CC On Admission Date Seen by Provider: Jul 05, 2022 Time Seen by Provider: 08:30 Subjective/Events-last exam 07/05/2022: No major issues Doing better No pain Nausea improved 07/04/2022: No major issues Feels like he is making no progress Alcoholism and 55 years of smoking has caused med issues that will require slow recovery No pain Nausea at times Labs ok 07/03/2022: Lungs remain complicated but stable No pain reported Confusion noted but sporadic O2 maintained Nebs ordered 07/02/2022: Doing well Confusion is sporadic Nebs ordered Very end stage on multiple organ systems 07/01/2022: Doing well Confusion is labile Working with therapy 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 06/30/2022: Doing well Confusion is noted with poor recall Participation is good No falls Labs reviewed Review of Systems General: Fatigue, Malaise Pulmonary: Dyspnea, Cough Objective Exam Vital Signs Vital Signs Date Time Temp Pulse Resp B/P (MAP) Pulse Ox O2 Delivery O2 Flow Rate FiO2 07/06/22 01:57 98 Nasal Cannula 3.00 07/05/22 20:15 36.3 63 22 129/74 (92) 07/01/22 07:00 32 Capillary Refill : General Appearance: No Apparent Distress, WD/WN, Chronically ill HEENT: PERRL/EOMI, Normal ENT Inspection, Pharynx Normal Neck: Full Range of Motion, Normal Inspection, Non Tender, Supple, Carotid Bruit Respiratory: Chest Non Tender, No Accessory Muscle Use, No Respiratory Distress, Crackles, Decreased Breath Sounds Cardiovascular: No Edema, No Gallop, No JVD, No Murmur, Normal Peripheral Pulses, Irregularly Irregular Gastrointestinal: Normal Bowel Sounds, No Organomegaly, No Pulsatile Mass, Non Tender, Soft Back: Normal Inspection, No CVA Tenderness, No Vertebral Tenderness Extremity: Normal Capillary Refill, Normal Inspection, Normal Range of Motion, Non Tender, No Calf Tenderness, No Pedal Edema Neurologic/Psychiatric: Alert, Oriented x3, Normal Mood/Affect, dock hand II-XII Norm as Tested, Abnormal Gait, Depressed Affect, Motor Weakness (generalized 3/5) Skin: Normal Color, Warm/Dry Lymphatic: No Adenopathy Results/Procedures Lab Patient resulted labs reviewed. FIM Transfers Therapy Code Descriptions/Definitions Functional [place] Measure: 0=Not Assessed/NA 4=Minimal Assistance 1=Total Assistance 5=Supervision or Setup 2=Maximal Assistance 6=Modified [place] 3=Moderate Assistance 7=Complete IndependenceSCALE: Activities may be completed with or without assistive devices. 7-Osljbjtnnm-wmsbgnr completes the activity by him/herself with no assistance from a helper. 5-Set-up or Clean-up Assistance-helper sets up or cleans up; patient completes activity. [place] assists only prior to or following the activity. 4-Supervision or Touching Assistance-helper provides verbal cues and/or touc mariel/steadying and/or contact guard assistance as patient completes activity. Assistance may be provided throughout the activity or intermittently. 3-Partial/Moderate Assistance-helper does LESS THAN HALF the effort. [place] lifts, holds or supports trunk or limbs, but provides less than half the effort. 2-Substantial/Maximal Assistance-helper does MORE THAN HALF the effort. [place] lifts or holds trunk or limbs and provides more than half the effort. 8-Awisdngmq-vuttre does ALL the effort. Patient does none of the effort to complete the activity. Or, the assistance of 2 or more helpers is required for the patient to complete the activity. If activity was not attempted, code reason: 7-Patient Refused. 9-Not Applicable-not attempted and the patient did not perform the activity before the current illness, exacerbation or injury. 10-Not Attempted due to Environmental Limitations-(lack of equipment, weather restraints, etc.). 88-Not Attempted due to Medical Conditions or Safety Concerns. Roll Left to Right (QC): 6 (with bed rail) Sit to Lying (QC): 6 Sit to Stand (QC): 6 Chair/Udy-la-Xhzjd Xfer(QC): 4 (CGA-SBA with FWW use and O2 assist) Car Transfer (QC): 88 Gait Training Does the Patient Walk?: Yes Distance: 30, 75, 50, 50 Walk 10 feet (QC): 4 Walk 50 ft with 2 Turns(QC): 4 Walk 150 ft (QC): 88 (due to air hunger, desat, activity tolerance deficits.) Walking 10ft/uneven surface-QC: 88 (due to air hunger, desat, activity tolerance deficits.) Gait Persons Needed: 1 Gait Assistive Device: FWW Wheelchair Training Does the Pt Use a Wheelchair?: No Wheel 50 ft with 2 turns (QC): 9 Wheel 150 ft (QC): 9 Stair Training 1 Step (curb) (QC): 88 (due to air hunger, desat, activity tolerance deficits.) 4 Steps (QC): 88 (due to air hunger, desat, activity tolerance deficits.) 12 Steps (QC): 88 (due to air hunger, desat, activity tolerance deficits.) Balance Picking up an Object (QC): 88 (due to air hunger, anxiety, desat, activity tolerance deficits.) ADL-Treatment Eating (QC): 6 Oral Hygiene (QC): 6 Shower/Bathe Self (QC): 4 Upper Body Dressing (QC): 5 Lower Body Dressing (QC): 4 On/Off Footwear (QC): 5 Toileting Hygiene (QC): 6 Toilet Transfer (QC): 4 Assessment/Plan Assessment and Plan Assess & Plan/Chief Complaint Assessment: COPD myopathy Acute on Chronic RF w/ hypoxia and hypercapnia Acute COPD Exacerbation Afib w/ RVR CAD w/ history of CABG Alcohol Withdrawal Hyponatremia DM type 2 Debility Smoker Confusion/poor recall Plan: Monitor closely Pain control O2 Nebs Aggressive PT OT 06/30/2022: Monitor closely Fall risk 07/01/2022: Monitor lungs closely 07/02/2022: Monitor lungs 07/03/2022: High risk for NH placement 07/04/2022: Continue slow recovery 07/05/2022: Monitor lungs (1) Myopathy (2) Acute on chronic respiratory failure with hypoxia and hypercapnia Status: Acute (3) Acute exacerbation of chronic obstructive pulmonary disease (COPD) Status: Acute (4) Atrial fibrillation with RVR (5) Coronary artery disease without angina pectoris Status: Chronic (6) Alcoholism Status: Acute (7) Primary hypertension (8) CAD (coronary artery disease) Status: Chronic (9) Mixed hyperlipidemia (10) Anemia due to acute blood loss Status: Acute (11) HLD (hyperlipidemia) Status: Chronic (12) Alcohol intoxication in active alcoholic Status: Acute (13) Heavy smoker ALEXANDRA JUDGE DO Jul 05, 2022 05:11
[2022-07-05] MEDS: MULTIVIT W/MINERALS TAB (THERAGRAN M) PO SCH (06:32)
[2022-07-05] MEDS: RT-BUDESONIDE NEBS 0.5 MG/2ML (PULMICORT) AMP INH SCH ×2 (06:57→22:03)
[2022-07-05 07:17] VITALS: BP 136/74
--- NOTE | 2022-07-05 07:44 | Occupational Ther Daily Note ---
OT Current Status-Daily Note Subjective Pt alert, lying in bed. Pt requesting breathing treatment prior to breakfast. Pt agreeable to therapy. No c/o pain at this time. Mental Status/Objective Patient Orientation: Person, Confused ADL-Treatment Respiratory in room for breathing treatment. After breathing treatment breakfast in room. Pt independent with setting up breakfast and using regular utensils to eat. Pt then requested to use toilet x2 for BM. SBA for toilet transfer. Independent for toileting after small BM. Pt requires multiple recovery breaks to 'catch air', reminders for correct breathing technique. After session, pt sitting in recliner with call light/phone in reach. All needs met in room. Safety measures in place. Therapy Code Descriptions/Definitions Functional [place] Measure: 0=Not Assessed/NA 4=Minimal Assistance 1=Total Assistance 5=Supervision or Setup 2=Maximal Assistance 6=Modified [place] 3=Moderate Assistance 7=Complete IndependenceSCALE: Activities may be completed with or without assistive devices. 7-Dhkwgzpqkp-pmmizyv completes the activity by him/herself with no assistance from a helper. 5-Set-up or Clean-up Assistance-helper sets up or cleans up; patient completes activity. [place] assists only prior to or following the activity. 4-Supervision or Touching Assistance-helper provides verbal cues and/or touching/steadying and/or contact guard assistance as patient completes activity. Assistance may be provided throughout the activity or intermittently. 3-Partial/Moderate Assistance-helper does LESS THAN HALF the effort. [place] lifts, holds or supports trunk or limbs, but provides less than half the effort. 2-Substantial/Maximal Assistance-helper does MORE THAN HALF the effort. [place] lifts or holds trunk or limbs and provides more than half the effort. 6-Xrzrekcem-cvbrcl does ALL the effort. Patient does none of the effort to complete the activity. Or, the assistance of 2 or more helpers is required for the patient to complete the activity. If activity was not attempted, code reason: 7-Patient Refused. 9-Not Applicable-not attempted and the patient did not perform the activity before the current illness, exacerbation or injury. 10-Not Attempted due to Environmental Limitations-(lack of equipment, weather restraints, etc.). 88-Not Attempted due to Medical Conditions or Safety Concerns. Eating (QC): 6 Toileting Hygiene (QC): 6 Toilet Transfer (QC): 4 Pt c/o not having BM, reported to nrsg that pt wanted suppository. Pt unable to remember if he has had BM. Pt also having difficulty remembering when he had a breathing treatment. OT Short Term Goals Short Term Goals Time Frame: July 22, 2022 Oral hygiene: 5 Toileting hygiene: 4 Shower/bathe self: 4 Lower body dressin Putting on/taking off footwear: 4 OT Ops Analyst Goals [facility] Goals Time Frame: July 29, 2022 Acute change in mental status: 1 Inattention: 1 Disorganized thinkin Altered level of consciousness: 0 Eating (QC): 6 Oral Hygiene (QC): 6 Toileting Hygiene (QC): 6 Shower/Bathe Self (QC): 6 Upper Body Dressing (QC): 6 Lower Body Dressing (QC): 6 On/Off Footwear (QC): 6 Additional Goals: 1-Demonstrate ADL Tasks, 2-Verbalize Understanding, 3- ImproveStrength/Yoanna 1=Demonstrate adherence to instructed precautions during ADL tasks. 2=Patient will verbalize/demonstrate understanding of assistive devices/modifications for ADL. 3=Patient will improve strength/tolerance for activity to enable patient to perform ADL's. OT Education/Plan Problem List/Assessment Assessment: Decreased Activ Tolerance, Impaired Cognition, Impaired Self-Care Skills Discharge Recommendations Plan/Recommendations: Continue POC Treatment Plan/Plan of Care Patient would benefit from OT for education, treatment and training to promote independence in ADL's, mobility, safety and/or upper extremity function for ADL's. Plan of Care: ADL Retraining, Functional Mobility, Group Exercise/Act as Ind, UE Funct Exercise/Act Treatment Duration: July 29, 2022 Frequency: Modified Program (IRF) (24/09) Estimated Hrs Per Day: 1.5 hours per day Agreement: Yes Rehab Potential: Poor (In correlation to Speech Pathology Rehab Potential.) Time Start Time: 07:15 Stop Time: 08:00 DATE: Jul 05, 2022 Total Time Billed (hr/min): 45 Billed Treatment Time 1 visit-ADL 3 (45 min) ATTILA VÁSQUEZ Jul 05, 2022 07:44
[2022-07-05] MEDS: FOLIC ACID 1 MG TAB PO SCH (08:37)
[2022-07-05] MEDS: AMIODARONE 200 MG (CORDARONE) TAB PO SCH ×2 (08:37→21:27)
[2022-07-05] MEDS: polyethylene glycoL POWDER 17 GM (MIRALAX) PACK PO SCH ×3 (08:38→21:30)
[2022-07-05] MEDS: DOCUSATE SODIUM 100 MG (COLACE) CAP PO SCH ×3 (08:38→21:28)
[2022-07-05] MEDS: SENNOSIDES 8.6 MG (SENOKOT) TAB PO SCH ×3 (08:38→21:27)
[2022-07-05] MEDS: APIXABAN 5 MG (ELIQUIS) TABLET PO SCH ×2 (08:38→21:27)
[2022-07-05] MEDS: FLEET ENEMA ADULT 1 EA BTL PR PRN (09:14)
[2022-07-05] MEDS: RT-ALBUTEROL/IPRATROPIUM 3 ML (DUONEB) VIAL INH PRN (10:11)
[2022-07-05] MEDS: ALPRAZolam 0.25 MG (XANAX) TAB PO PRN ×2 (10:17→15:51)
--- NOTE | 2022-07-05 10:36 | Physical Therapy Daily Note ---
PT Daily Note-Current Subjective pt on toilet upon entering. pt willing for therapy. pt complaining about constipation and has the feeling he needs to have a BM but can not. pt stated he could not seem to catch his breath this morning. Pain Section J - Health Conditions 1. Rarely or not at all 2. Occasionally 3. Frequently 4. Almost constantly 8. Unable to answer Pain Effect on Sleep: 1 Pain Interference with Therapy: 1 Pain Interference w/Day-to-Day: 1 Transfers SCALE: Activities may be completed with or without assistive devices. 4-Wonsvmygjl-egkxcgl completes the activity by him/herself with no assistance from a helper. 5-Set-up or Clean-up Assistance-helper sets up or cleans up; patient completes activity. [place] assists only prior to or following the activity. 4-Supervision or Touching Assistance-helper provides verbal cues and/or touching/steadying and/or contact guard assistance as patient completes activity. Assistance may be provided throughout the activity or intermittently. 3-Partial/Moderate Assistance-helper does LESS THAN HALF the effort. [place] lifts, holds or supports trunk or limbs, but provides less than half the effort. 2-Substantial/Maximal Assistance-helper does MORE THAN HALF the effort. [place] lifts or holds trunk or limbs and provides more than half the effort. 8-Jekmtdszh-kqympa does ALL the effort. Patient does none of the effort to complete the activity. Or, the assistance of 2 or more helpers is required for the patient to complete the activity. If activity was not attempted, code reason: 7-Patient Refused. 9-Not Applicable-not attempted and the patient did not perform the activity before the current illness, exacerbation or injury. 10-Not Attempted due to Environmental Limitations-(lack of equipment, weather restraints, etc.). 88-Not Attempted due to Medical Conditions or Safety Concerns. Roll Left & Right (QC): 6 Sit to Lying (QC): 6 Lying to Sitting/Side of Bed(Q: 6 Chair/Zbi-ht-Qtjxy Xfer(QC): 6 Weight Bearing Full Weight Bearing Full Weight Bearing Gait Training Walk 10 feet (QC): 6 Walk 50 ft with 2 Turns(QC): 6 Gait Persons Needed: 1 Gait Assistive Device: Walker Standard Exercises Seated Therapy Exercises: Sit to stand, Long arc quads, Shoulder Abd, Hamstring Curls, Glut set Standing: Marching Treatments PT is able to preform sitting ther-ex in all planes of motion with BLE for 4 sets of 20 each with rest in between each EX. pt is able to preform 12 sit to stand from toilet and recliner independently. pt is able to ambulate 40 ft x 6 with rest in between with RW and independence pt is on and off the toilet during therapy session. pt disregards safety edu with O2 cord after multiple VC for safety this day pt O2 seted before activity was 94, after ambulation was 98, after ther-ex was 97 and seated in recliner at end of therapy was 98. Assessment Current Status: Fair Progress PT Correction Goals Correction Goals PT Manager Of Training And Development Goals Time Frame: July 20, 2022 Roll Left & Right (QC): 6 Sit to Lying (QC): 6 Lying-Sitting on Side/Bed(QC): 6 Sit to Stand (QC): 6 Chair/Pua-wq-Mkzzo Xfer(QC): 6 Toilet Transfer (QC): 6 Car Transfer (QC): 5 Does the Patient Walk: Yes Walk 10 feet (QC): 5 (with O2 assist as needed) Walk 50ft with 2 Turns (QC): 5 (with O2 assist as needed and FWW) Walk 150 ft (QC): 4 (with FWW and O2 assist, CGA due to severity of endurance deficit) Walking 10ft on Uneven Surface: 5 (with FWW and O2 assist) 1 Step (curb) (QC): 5 4 Steps (QC): 5 12 Steps (QC): 9 Picking up an Object (QC): 6 (FWW and magnetic observer) Does the Pt use WC or Scooter?: No Wheel 50 feet with 2 turns (QC: 9 Wheel 150 feet: 9 PT Plan Problem List Problem List: Safety Treatment/Plan Treatment Plan: Continue Plan of Care Treatment Plan: Bed Mobility, Education, Functional Activity Yoanna, Functional Strength, Group Therapy, Gait, Safety, Therapeutic Exercise, Transfers Treatment Duration: July 20, 2022 Frequency: Modified Program (IRF) Estimated Hrs Per Day: Other (24/09 program) Patient and/or Family Agrees t: Yes Time Time In: 0800 Time Out: 0930 DATE: Jul 05, 2022 Total Billed Treatment Time: 90 Total Billed Treatment 1, FA x 4 Gt x 1 EX x 1 Ebony Barrett PIECE DYER Jul 05, 2022 10:36
--- NOTE | 2022-07-05 11:00 | Occupational Ther Daily Note ---
OT Current Status-Daily Note Subjective Pt alert, sitting in recliner. Pt adamantly voiced that he is going home today, that he was talked into coming here and he can leave at any time. Reported to nrsg and clinical coordinator. Max encouragement for pt to participate in skilled therapy, therapeutic listening required to decrease anxiety and agit ation of pt. Mental Status/Objective Patient Orientation: Person, Confused ADL-Treatment Pt voices that he thinks that he is in detox program and that he is fine and has projects that he needs to do at home. CATALAN continues to reorient pt to place and situation, pt will make affirmative comments though when next person comes i nto room pt will tell/ask same situation/questions. SBA for ambulation using FWW due to safety concerns of manipulation of O2 tubing and being a tripping hazard. Pt independent with toileting. Attempted to have pt complete B UE exercises, but pt politely ignored this. CATALAN offered to have pt walk to table outside of room to drink coffee. After session, pt sitting at table in ARU commons area. Nrsg and ARU staff aware of pt's position. All needs met. Therapy Code Descriptions/Definitions Functional [place] Measure: 0=Not Assessed/NA 4=Minimal Assistance 1=Total Assistance 5=Supervision or Setup 2=Maximal Assistance 6=Modified [place] 3=Moderate Assistance 7=Complete IndependenceSCALE: Activities may be completed with or without assistive devices. 1-Yclciamwsq-hzuqeyw completes the activity by him/herself with no assistance from a helper. 5-Set-up or Clean-up Assistance-helper sets up or cleans up; patient completes activity. [place] assists only prior to or following the activity. 4-Supervision or Touching Assistance-helper provides verbal cues and/or touching/steadying and/or contact guard assistance as patient completes activity. Assistance may be provided throughout the activity or intermittently. 3-Partial/Moderate Assistance-helper does LESS THAN HALF the effort. [place] lifts, holds or supports trunk or limbs, but provides less than half the effort. 2-Substantial/Maximal Assistance-helper does MORE THAN HALF the effort. [place] lifts or holds trunk or limbs and provides more than half the effort. 2-Mhgipqzrk-gtbpsc does ALL the effort. Patient does none of the effort to complete the activity. Or, the assistance of 2 or more helpers is required for the patient to complete the activity. If activity was not attempted, code reason: 7-Patient Refused. 9-Not Applicable-not attempted and the patient did not perform the activity before the current illness, exacerbation or injury. 10-Not Attempted due to Environmental Limitations-(lack of equipment, weather restraints, etc.). 88-Not Attempted due to Medical Conditions or Safety Concerns. Toileting Hygiene (QC): 6 Toilet Transfer (QC): 4 (Safety concerns due to O2 tubing) BIMS CAM BIMS Expression of Ideas and Wants: Without Difficulty Understanding Verbal Content: Understands Brief Interview/Mental Status: Yes IRF DIONICIO BIMS: IRF DIONICIO BIMS Response (Comments) Value Repitition of Three Words Two 2 Recalls Socks Yes, After Cueing (Wear) 1 Recalls Blue Yes, No Cue Required 2 Recalls Bed Yes, No Cue Required 2 Month Missed by 6 Days/1 Month 1 Day Correct 1 Total 9 Should Staff Asses. Mental St.: Yes CAM Mental Status Change/Baseline: 0 Inattention: 2 Disorganized thinkin Altered level of consciousness: 0 OT Short Term Goals Short Term Goals Time Frame: July 22, 2022 Oral hygiene: 5 Toileting hygiene: 4 Shower/bathe self: 4 Lower body dressin Putting on/taking off footwear: 4 OT Head Of Partner Development Goals Group Home Goals Time Frame: July 29, 2022 Acute change in mental status: 1 Inattention: 1 Disorganized thinkin Altered level of consciousness: 0 Eating (QC): 6 (met) Oral Hygiene (QC): 6 (met) Toileting Hygiene (QC): 6 (met) Shower/Bathe Self (QC): 6 (not met) Upper Body Dressing (QC): 6 (not met) Lower Body Dressing (QC): 6 (not met) On/Off Footwear (QC): 6 (not met) Additional Goals: 1-Demonstrate ADL Tasks, 2-Verbalize Understanding, 3- ImproveStrength/Yoanna 1=Demonstrate adherence to instructed precautions during ADL tasks. 2=Patient will verbalize/demonstrate understanding of assistive devices/modifications for ADL. 3=Patient will improve strength/tolerance for activity to enable patient to perform ADL's. OT Education/Plan Problem List/Assessment Assessment: Decreased Activ Tolerance, Decreased Safety Aware, Impaired Cognition Discharge Recommendations Plan/Recommendations: Continue POC Treatment Plan/Plan of Care Patient would benefit from OT for education, treatment and training to promote independence in ADL's, mobility, safety and/or upper extremity function for ADL's. Plan of Care: ADL Retraining, Functional Mobility, Group Exercise/Act as Ind, UE Funct Exercise/Act Treatment Duration: July 29, 2022 Frequency: Modified Program (IRF) (24/09) Estimated Hrs Per Day: 1.5 hours per day Agreement: Yes Rehab Potential: Poor (In correlation to Speech Pathology Rehab Potential.) Time Start Time: 10:05 Stop Time: 10:50 DATE: Jul 05, 2022 Total Time Billed (hr/min): 45 Billed Treatment Time 1 visit-ADL 1 (20 min) FA 2 (25 min) ATTILA VÁSQUEZ Jul 05, 2022 11:00
[2022-07-05 20:15] VITALS: BP 129/74
[2022-07-05] MEDS: MELATONIN 3 MG TABLET PO PRN (21:27)
[2022-07-06] MEDS: RT-ALBUTEROL/IPRATROPIUM 3 ML (DUONEB) VIAL INH SCH ×6 (01:55→23:00)
[2022-07-06] MEDS: ALPRAZolam 0.25 MG (XANAX) TAB PO PRN ×3 (05:18→21:18)
[2022-07-06] MEDS: MULTIVIT W/MINERALS TAB (THERAGRAN M) PO SCH (05:18)
--- NOTE | 2022-07-06 05:59 | PM&R Progress Note ---
Subjective HPI/CC On Admission Date Seen by Provider: Jul 06, 2022 Time Seen by Provider: 12:00 Subjective/Events-last exam 07/06/2022: Doing well Tried to build confidence will undergo family training Lungs good today 07/05/2022: No major issues Doing better No pain Nausea improved 07/04/2022: No major issues Feels like he is making no progress Alcoholism and 55 years of smoking has caused med issues that will require slow recovery No pain Nausea at times Labs ok 07/03/2022: Lungs remain complicated but stable No pain reported Confusion noted but sporadic O2 maintained Nebs ordered 07/02/2022: Doing well Confusion is sporadic Nebs ordered Very end stage on multiple organ systems 07/01/2022: Doing well Confusion is labile Working with therapy 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 06/30/2022: Doing well Confusion is noted with poor recall Participation is good No falls Labs reviewed Review of Systems General: Fatigue, Malaise Objective Exam Vital Signs Vital Signs Date Time Temp Pulse Resp B/P (MAP) Pulse Ox O2 Delivery O2 Flow Rate FiO2 07/06/22 23:05 98 Nasal Cannula 3.00 07/06/22 21:05 36.5 67 22 142/78 (99) 07/01/22 07:00 32 Capillary Refill : General Appearance: No Apparent Distress, WD/WN, Chronically ill HEENT: PERRL/EOMI, Normal ENT Inspection, Pharynx Normal Neck: Full Range of Motion, Normal Inspection, Non Tender, Supple, Carotid Bruit Respiratory: Chest Non Tender, No Accessory Muscle Use, No Respiratory Distress, Crackles, Decreased Breath Sounds Cardiovascular: No Edema, No Gallop, No JVD, No Murmur, Normal Peripheral Pulses, Irregularly Irregular Gastrointestinal: Normal Bowel Sounds, No Organomegaly, No Pulsatile Mass, Non Tender, Soft Back: Normal Inspection, No CVA Tenderness, No Vertebral Tenderness Extremity: Normal Capillary Refill, Normal Inspection, Normal Range of Motion, Non Tender, No Calf Tenderness, No Pedal Edema Neurologic/Psychiatric: Alert, Oriented x3, Normal Mood/Affect, surgical instrument maker II-XII Norm as Tested, Abnormal Gait, Depressed Affect, Motor Weakness (generalized 3/5) Skin: Normal Color, Warm/Dry Lymphatic: No Adenopathy Results/Procedures Lab Patient resulted labs reviewed. FIM Transfers Therapy Code Descriptions/Definitions Functional [place] Measure: 0=Not Assessed/NA 4=Minimal Assistance 1=Total Assistance 5=Supervision or Setup 2=Maximal Assistance 6=Modified [place] 3=Moderate Assistance 7=Complete IndependenceSCALE: Activities may be completed with or without assistive devices. 9-Vdfbrkgmnl-ineevnp completes the activity by him/herself with no assistance from a helper. 5-Set-up or Clean-up Assistance-helper sets up or cleans up; patient completes activity. [place] assists only prior to or following the activity. 4-Supervision or Touching Assistance-helper provides verbal cues and/or touching/steadying and/or contact guard assistance as patient completes activit y. Assistance may be provided throughout the activity or intermittently. 3-Partial/Moderate Assistance-helper does LESS THAN HALF the effort. [place] lifts, holds or supports trunk or limbs, but provides less than half the effort. 2-Substantial/Maximal Assistance-helper does MORE THAN HALF the effort. [place] lifts or holds trunk or limbs and provides more than half the effort. 9-Rkwlucisq-xsfgpz does ALL the effort. Patient does none of the effort to complete the activity. Or, the assistance of 2 or more helpers is required for the patient to complete the activity. If activity was not attempted, code reason: 7-Patient Refused. 9-Not Applicable-not attempted and the patient did not perform the activity before the current illness, exacerbation or injury. 10-Not Attempted due to Environmental Limitations-(lack of equipment, weather restraints, etc.). 88-Not Attempted due to Medical Conditions or Safety Concerns. Roll Left to Right (QC): 6 Sit to Lying (QC): 6 Sit to Stand (QC): 6 Chair/Xmu-mt-Vkypq Xfer(QC): 6 Car Transfer (QC): 88 Gait Training Does the Patient Walk?: Yes Distance: 30, 75, 50, 50 Walk 10 feet (QC): 6 Walk 50 ft with 2 Turns(QC): 6 Walk 150 ft (QC): 88 (due to air hunger, desat, activity tolerance deficits.) Walking 10ft/uneven surface-QC: 88 (due to air hunger, desat, activity tolerance deficits.) Gait Persons Needed: 1 Gait Assistive Device: Walker Standard Wheelchair Training Does the Pt Use a Wheelchair?: No Wheel 50 ft with 2 turns (QC): 9 Wheel 150 ft (QC): 9 Stair Training 1 Step (curb) (QC): 88 (due to air hunger, desat, activity tolerance deficits.) 4 Steps (QC): 88 (due to air hunger, desat, activity tolerance deficits.) 12 Steps (QC): 88 (due to air hunger, desat, activity tolerance deficits.) Balance Picking up an Object (QC): 88 (due to air hunger, anxiety, desat, activity tolerance deficits.) ADL-Treatment Eating (QC): 6 Oral Hygiene (QC): 6 Shower/Bathe Self (QC): 4 Upper Body Dressing (QC): 5 Lower Body Dressing (QC): 4 On/Off Footwear (QC): 5 Toileting Hygiene (QC): 6 Toilet Transfer (QC): 4 (Safety concerns due to O2 tubing) Assessment/Plan Assessment and Plan Assess & Plan/Chief Complaint Assessment: COPD myopathy Acute on Chronic RF w/ hypoxia and hypercapnia Acute COPD Exacerbation Afib w/ RVR CAD w/ history of CABG Alcohol Withdrawal Hyponatremia DM type 2 Debility Smoker Confusion/poor recall Plan: Monitor closely Pain control O2 Nebs Aggressive PT OT 06/30/2022: Monitor closely Fall risk 07/01/2022: Monitor lungs closely 07/02/2022: Monitor lungs 07/03/2022: High risk for NH placement 07/04/2022: Continue slow recovery 07/05/2022: Monitor lungs 07/06/2022: Monitor closely (1) Myopathy (2) Acute on chronic respiratory failure with hypoxia and hypercapnia Status: Acute (3) Acute exacerbation of chronic obstructive pulmonary disease (COPD) Status: Acute (4) Atrial fibrillation with RVR (5) Coronary artery disease without angina pectoris Status: Chronic (6) Alcoholism Status: Acute (7) Primary hypertension (8) CAD (coronary artery disease) Status: Chronic (9) Mixed hyperlipidemia (10) Anemia due to acute blood loss Status: Acute (11) HLD (hyperlipidemia) Status: Chronic (12) Alcohol intoxication in active alcoholic Status: Acute (13) Heavy smoker ALEXANDRA JUDGE DO Jul 06, 2022 05:59
[2022-07-06 07:10] VITALS: BP 134/72
--- NOTE | 2022-07-06 07:55 | Occupational Ther Daily Note ---
OT Current Status-Daily Note Subjective Pt in bed eating breakfast. Pt required frequent redirection to his current situation. Pt believes he is being held in the hospital against his will. He believes his is cheating on him at the bars. He feels "stuck" here. Pt required max encouragement and coaxing in order to participate in OT tx. Pt required slightly less redirection after phone call with his , but still requires max encouragement to participate in tx Mental Status/Objective Attachments: Oxygen (3-4L) ADL-Treatment Therapy Code Descriptions/Definitions Functional [place] Measure: 0=Not Assessed/NA 4=Minimal Assistance 1=Total Assistance 5=Supervision or Setup 2=Maximal Assistance 6=Modified [place] 3=Moderate Assistance 7=Complete IndependenceSCALE: Activities may be completed with or without assistive devices. 4-Jmigejtmrz-ljshxls completes the activity by him/herself with no assistance from a helper. 5-Set-up or Clean-up Assistance-helper sets up or cleans up; patient completes activity. [place] assists only prior to or following the activity. 4-Supervision or Touching Assistance-helper provides verbal cues and/or touching/steadying and/or contact guard assistance as patient completes activity. Assistance may be provided throughout the activity or intermittently. 3-Partial/Moderate Assistance-helper does LESS THAN HALF the effort. [place] lifts, holds or supports trunk or limbs, but provides less than half the effort. 2-Substantial/Maximal Assistance-helper does MORE THAN HALF the effort. [place] lifts or holds trunk or limbs and provides more than half the effort. 2-Jkfasnczo-vwqudp does ALL the effort. Patient does none of the effort to complete the activity. Or, the assistance of 2 or more helpers is required for the patient to complete the activity. If activity was not attempted, code reason: 7-Patient Refused. 9-Not Applicable-not attempted and the patient did not perform the activity before the current illness, exacerbation or injury. 10-Not Attempted due to Environmental Limitations-(lack of equipment, weather restraints, etc.). 88-Not Attempted due to Medical Conditions or Safety Concerns. Eating (QC): 6 Oral Hygiene (QC): 6 (seated at sink) Shower/Bathe Self (QC): 4 (Supervision) Upper Body Dressing (QC): 5 Lower Body Dressing (QC): 4 (Supervision) On/Off Footwear: 5 Toileting Hygiene (QC): 6 Toilet Transfer (QC): 4 (Supervision) Other Treatment Pt in bed eating breakfast, agreeable to OT tx with max encouragement and coaxing. Pt adamantly declined any ADLs, with max encouragement. Pt agreeable to sitting in ARU common area to drink coffee. Pt transferred supine to sit EOB, IND, then used FWW to transfer to table in common area, SBA (OT managed O2 tank). Pt insisted that his was out cheating on him and that he is being held at hospital against his will. OT attempted to redirect pt, but pt required redirection every couple of minutes. Pt requested medications for anxiety, OT and RN informed pt he had already had xanax this AM and is not due for another yet, pt unable to recall this information after a couple minutes. Pt refused all offered therapeutic activities and exercises, even with coaxing. Pt agreeable to complete ADLs at this time with encouragement. Pt used FWW to transfer into bathroom. Pt completed toileting, sponge bath, dressing and grooming tasks, VCs required for pursed lip breathing due to reports of air hunger throughout task, frequent rest breaks required. Pt then used FWW to transfer to recliner. Post tx, pt in recliner, call light in reach and all needs met. Chair alarm activated. Education OT Patient Education: Correct positioning, Energy conservation, Modified ADL techniques, Progress toward Goal/Update tx plan, Purpose of tx/functional activities, Rehab process Teaching Recipient: Patient Teaching Methods: Discussion Response to Teaching: Verbalize Understanding BIMS CAM BIMS Expression of Ideas and Wants: Without Difficulty Understanding Verbal Content: Understands Brief Interview/Mental Status: Yes IRF DIONICIO BIMS: IRF DIONICIO BIMS Response (Comments) Value Repitition of Three Words Three 3 Recalls Socks Yes, No Cue Required 2 Recalls Blue Yes, After Cueing (Color) 1 Recalls Bed Yes, After Cueing 1 Year Correct 3 Month Accurate Within 5 Days 2 Day Correct 1 Total 13 Should Staff Asses. Mental St.: No CAM Mental Status Change/Baseline: 0 Inattention: 1 Disorganized thinkin Altered level of consciousness: 0 OT Short Term Goals Short Term Goals Time Frame: July 22, 2022 Oral hygiene: 5 Toileting hygiene: 4 Shower/bathe self: 4 Lower body dressin Putting on/taking off footwear: 4 OT Assisted Goals Professor Of Public Administration Goals Time Frame: July 29, 2022 Acute change in mental status: 0 Inattention: 2 Disorganized thinkin Altered level of consciousness: 0 Eating (QC): 6 (met) Oral Hygiene (QC): 6 (met) Toileting Hygiene (QC): 6 (met) Shower/Bathe Self (QC): 6 (not met) Upper Body Dressing (QC): 6 (not met) Lower Body Dressing (QC): 6 (not met) On/Off Footwear (QC): 6 (not met) Additional Goals: 1-Demonstrate ADL Tasks, 2-Verbalize Understanding, 3- ImproveStrength/Yoanna 1=Demonstrate adherence to instructed precautions during ADL tasks. 2=Patient will verbalize/demonstrate understanding of assistive devices/modifications for ADL. 3=Patient will improve strength/tolerance for activity to enable patient to perform ADL's. OT Education/Plan Problem List/Assessment Assessment: Decreased Activ Tolerance, Decreased Safety Aware, Decreased UE Strength, Impaired Funct Balance, Impaired I ADL's, Impaired Self-Care Skills Discharge Recommendations Plan/Recommendations: Continue POC Treatment Plan/Plan of Care Patient would benefit from OT for education, treatment and training to promote independence in ADL's, mobility, safety and/or upper extremity function for ADL's. Plan of Care: ADL Retraining, Functional Mobility, Group Exercise/Act as Ind, UE Funct Exercise/Act Treatment Duration: July 29, 2022 Frequency: Modified Program (IRF) (24/09) Estimated Hrs Per Day: 1.5 hours per day Agreement: Yes Rehab Potential: Poor (In correlation to Speech Pathology Rehab Potential.) Time Start Time: 07:30 Stop Time: 09:00 DATE: Jul 06, 2022 Total Time Billed (hr/min): 90 Billed Treatment Time 1, ADL 6 (90') AMMY NATHAN OT Jul 06, 2022 07:55
[2022-07-06] MEDS: APIXABAN 5 MG (ELIQUIS) TABLET PO SCH ×2 (07:58→21:12)
[2022-07-06] MEDS: DOCUSATE SODIUM 100 MG (COLACE) CAP PO SCH ×2 (07:58→21:12)
[2022-07-06] MEDS: FOLIC ACID 1 MG TAB PO SCH (07:58)
[2022-07-06] MEDS: SENNOSIDES 8.6 MG (SENOKOT) TAB PO SCH ×2 (07:59→21:13)
[2022-07-06] MEDS: AMIODARONE 200 MG (CORDARONE) TAB PO SCH ×2 (08:00→21:12)
[2022-07-06] MEDS: polyethylene glycoL POWDER 17 GM (MIRALAX) PACK PO SCH ×2 (08:00→21:19)
[2022-07-06] MEDS: RT-BUDESONIDE NEBS 0.5 MG/2ML (PULMICORT) AMP INH SCH ×2 (10:21→23:00)
--- NOTE | 2022-07-06 10:25 | Physical Therapy Daily Note ---
PT Daily Note-Current Subjective Pt found seated in recliner upon entry. Agreed to PT. Reports he is having some pain in his upper back. Pt states that he has had that pain for quite awhile. Does not rate. Pain Section J - Health Conditions 1. Rarely or not at all 2. Occasionally 3. Frequently 4. Almost constantly 8. Unable to answer Pain Effect on Sleep: 1 Pain Interference with Therapy: 1 Pain Interference w/Day-to-Day: 1 Mental Status Patient Orientation: Person, Place Transfers SCALE: Activities may be completed with or without assistive devices. 4-Nvrlernvzh-gwclcnl completes the activity by him/herself with no assistance from a helper. 5-Set-up or Clean-up Assistance-helper sets up or cleans up; patient completes activity. [place] assists only prior to or following the activity. 4-Supervision or Touching Assistance-helper provides verbal cues and/or touching/steadying and/or contact guard assistance as patient completes activity. Assistance may be provided throughout the activity or intermittently. 3-Partial/Moderate Assistance-helper does LESS THAN HALF the effort. [place] lifts, holds or supports trunk or limbs, but provides less than half the effort. 2-Substantial/Maximal Assistance-helper does MORE THAN HALF the effort. [place] lifts or holds trunk or limbs and provides more than half the effort. 1-Uiwcvfbey-vhdzgr does ALL the effort. Patient does none of the effort to complete the activity. Or, the assistance of 2 or more helpers is required for the patient to complete the activity. If activity was not attempted, code reason: 7-Patient Refused. 9-Not Applicable-not attempted and the patient did not perform the activity before the current illness, exacerbation or injury. 10-Not Attempted due to Environmental Limitations-(lack of equipment, weather restraints, etc.). 88-Not Attempted due to Medical Conditions or Safety Concerns. Sit to Stand (QC): 6 Pt independent /c sit to stand transfers using B armrests. Weight Bearing Full Weight Bearing Full Weight Bearing Gait Training Does the Patient Walk?: Yes Distance: 75, 150, 50 Walk 10 feet (QC): 6 Walk 50 ft with 2 Turns(QC): 6 Walk 150 ft (QC): 6 Gait Persons Needed: 1 Gait Assistive Device: FWW Pt independent /c ambulation and uses FWW. Displays slight loss of balance while completing turns but is able to self-correct without steadying assistance from helper. Displays slow gait pattern /c short step lengths. Able to ambulate up to 150 feet before requiring a seated rest break. Treatments Seated exercises: Marching /c RTB x 20 Hip abd /c RTB x 20 Hamstring curls /c RTB x 20 Hip add /c ball x 20 Heel/toe raises x 20 O2 saturations Pre-treatment: 95% Ambulation after 75 feet: 97-98% Ambulation after 150 feet: 99% Assessment Current Status: Good Progress Pt displays improved tolerance to gait training this visit. Continues to display signs of shortness of breath and fatigue throughout treatment. Demonstrates good muscle endurance /c therapeutic exercises. Ambulates up to 150 feet /c use of FWW before requiring a seated rest break. O2 saturation did not drop below 95%. Continue to progress pt as tolerated per POC to improve strength, endurance, and functional ability. PT Bed Laster Goals Long-Term Goals PT Long-Term Goals Time Frame: July 20, 2022 Roll Left & Right (QC): 6 Sit to Lying (QC): 6 Lying-Sitting on Side/Bed(QC): 6 Sit to Stand (QC): 6 Chair/Fqa-be-Vamsd Xfer(QC): 6 Toilet Transfer (QC): 6 Car Transfer (QC): 5 Does the Patient Walk: Yes Walk 10 feet (QC): 5 (with O2 assist as needed) Walk 50ft with 2 Turns (QC): 5 (with O2 assist as needed and FWW) Walk 150 ft (QC): 4 (with FWW and O2 assist, CGA due to severity of endurance deficit) Walking 10ft on Uneven Surface: 5 (with FWW and O2 assist) 1 Step (curb) (QC): 5 4 Steps (QC): 5 12 Steps (QC): 9 Picking up an Object (QC): 6 (FWW and service station equipment mechanic) Does the Pt use WC or Scooter?: No Wheel 50 feet with 2 turns (QC: 9 Wheel 150 feet: 9 PT Plan Treatment/Plan Treatment Plan: Continue Plan of Care Treatment Plan: Bed Mobility, Education, Functional Activity Yoanna, Functional Strength, Group Therapy, Gait, Safety, Therapeutic Exercise, Transfers Treatment Duration: July 20, 2022 Frequency: Modified Program (IRF) Estimated Hrs Per Day: Other (24/09 program) Patient and/or Family Agrees t: Yes Time Time In: 0900 Time Out: 1030 DATE: Jul 06, 2022 Total Billed Treatment Time: 90 Total Billed Treatment 1 visit GT x 2 EX x 4 CASSIE ARMSTRONG PTA Jul 06, 2022 10:25
[2022-07-06 20:10] VITALS: BP 107/70
[2022-07-06 21:05] VITALS: BP 142/78
[2022-07-06] MEDS: MELATONIN 3 MG TABLET PO PRN (21:13)
[2022-07-07] MEDS: RT-ALBUTEROL/IPRATROPIUM 3 ML (DUONEB) VIAL INH SCH ×6 (04:19→20:54)
[2022-07-07] MEDS: RT-BUDESONIDE NEBS 0.5 MG/2ML (PULMICORT) AMP INH SCH ×2 (06:34→20:55)
[2022-07-07] MEDS: MULTIVIT W/MINERALS TAB (THERAGRAN M) PO SCH (06:35)
[2022-07-07 07:36] VITALS: BP 153/73
[2022-07-07] MEDS: polyethylene glycoL POWDER 17 GM (MIRALAX) PACK PO SCH ×2 (07:39→21:07)
[2022-07-07] MEDS: FOLIC ACID 1 MG TAB PO SCH (07:42)
[2022-07-07] MEDS: AMIODARONE 200 MG (CORDARONE) TAB PO SCH ×2 (07:42→21:07)
[2022-07-07] MEDS: APIXABAN 5 MG (ELIQUIS) TABLET PO SCH ×2 (07:42→21:07)
[2022-07-07] MEDS: DOCUSATE SODIUM 100 MG (COLACE) CAP PO SCH ×2 (07:42→21:07)
[2022-07-07] MEDS: SENNOSIDES 8.6 MG (SENOKOT) TAB PO SCH ×2 (07:42→21:07)
--- NOTE | 2022-07-07 08:24 | Occupational Ther Daily Note ---
OT Current Status-Daily Note Subjective Pt alert, lying in bed. Pt is anxious this am, nrsg brought meds. No c/o pain at this time. Pt stated that he thought that his was cheating on him, that he does not know how he got here and that he is in a detox hospital. CATALAN attempted to reoriented pt. Mental Status/Objective Patient Orientation: Person, Confused ADL-Treatment Pt declines to get OOB this morning before breakfast. Pt independent with eating. Pt taking increased time to complete all tasks due to anxiety and slow movements. After session, pt lying in bed with call light/phone in reach. All needs met in room. Therapy Code Descriptions/Definitions Functional [place] Measure: 0=Not Assessed/NA 4=Minimal Assistance 1=Total Assistance 5=Supervision or Setup 2=Maximal Assistance 6=Modified [place] 3=Moderate Assistance 7=Complete IndependenceSCALE: Activities may be completed with or without assistive devices. 2-Mjapfmcxjv-shyfncz completes the activity by him/herself with no assistance from a helper. 5-Set-up or Clean-up Assistance-helper sets up or cleans up; patient completes activity. [place] assists only prior to or following the activity. 4-Supervision or Touching Assistance-helper provides verbal cues and/or touching/steadying and/or contact guard assistance as patient completes activity. Assistance may be provided throughout the activity or intermittently. 3-Partial/Moderate Assistance-helper does LESS THAN HALF the effort. [place] lifts, holds or supports trunk or limbs, but provides less than half the effort. 2-Substantial/Maximal Assistance-helper does MORE THAN HALF the effort. [place] lifts or holds trunk or limbs and provides more than half the effort. 9-Urzrwvfkx-vhpxjc does ALL the effort. Patient does none of the effort to complete the activity. Or, the assistance of 2 or more helpers is required for the patient to complete the activity. If activity was not attempted, code reason: 7-Patient Refused. 9-Not Applicable-not attempted and the patient did not perform the activity before the current illness, exacerbation or injury. 10-Not Attempted due to Environmental Limitations-(lack of equipment, weather restraints, etc.). 88-Not Attempted due to Medical Conditions or Safety Concerns. Eating (QC): 6 OT Short Term Goals Short Term Goals Time Frame: July 22, 2022 Oral hygiene: 5 Toileting hygiene: 4 Shower/bathe self: 4 Lower body dressin Putting on/taking off footwear: 4 OT Engine Research Engineer Goals Long-Term Goals Time Frame: July 29, 2022 Acute change in mental status: 0 Inattention: 1 Disorganized thinkin Altered level of consciousness: 0 Eating (QC): 6 (met) Oral Hygiene (QC): 6 (met) Toileting Hygiene (QC): 6 (met) Shower/Bathe Self (QC): 6 (not met) Upper Body Dressing (QC): 6 (not met) Lower Body Dressing (QC): 6 (not met) On/Off Footwear (QC): 6 (not met) Additional Goals: 1-Demonstrate ADL Tasks, 2-Verbalize Understanding, 3- ImproveStrength/Yoanna 1=Demonstrate adherence to instructed precautions during ADL tasks. 2=Patient will verbalize/demonstrate understanding of assistive devices/modifications for ADL. 3=Patient will improve strength/tolerance for activity to enable patient to perform ADL's. OT Education/Plan Problem List/Assessment Assessment: Decreased Safety Aware, Impaired Cognition, Impaired Self-Care Skills Discharge Recommendations Plan/Recommendations: Continue POC Treatment Plan/Plan of Care Patient would benefit from OT for education, treatment and training to promote independence in ADL's, mobility, safety and/or upper extremity function for ADL's. Plan of Care: ADL Retraining, Functional Mobility, Group Exercise/Act as Ind, UE Funct Exercise/Act Treatment Duration: July 29, 2022 Frequency: Modified Program (IRF) (24/09) Estimated Hrs Per Day: 1.5 hours per day Agreement: Yes Rehab Potential: Poor (In correlation to Speech Pathology Rehab Potential.) Time Start Time: 07:30 Stop Time: 08:00 DATE: Jul 07, 2022 Total Time Billed (hr/min): 30 Billed Treatment Time 1 visit-ADL 2 (30 min) ATTILA VÁSQUEZ Jul 07, 2022 08:24
--- NOTE | 2022-07-07 10:31 | Occupational Ther Daily Note ---
OT Current Status-Daily Note Subjective Pt sleeping in bed, difficult to wake. Pt took increased time to fully wake. Pt reluctantly agrees to therapy. No c/o pain. OT/PT co-treat [id number], skills of 2 clinicians required to educate spouse on pt's mobility and functional skill progress. PT focusing on mobility while OT focusing on functional mobility and breathing techniques. Mental Status/Objective Patient Orientation: Person, Place, Time, Situation Attachments: Oxygen (3L at rest 4L with activity) ADL-Treatment Therapy Code Descriptions/Definitions Functional [place] Measure: 0=Not Assessed/NA 4=Minimal Assistance 1=Total Assistance 5=Supervision or Setup 2=Maximal Assistance 6=Modified [place] 3=Moderate Assistance 7=Complete IndependenceSCALE: Activities may be completed with or without assistive devices. 9-Mufhckxorg-imbmozi completes the activity by him/herself with no assistance from a helper. 5-Set-up or Clean-up Assistance-helper sets up or cleans up; patient completes activity. [place] assists only prior to or following the activity. 4-Supervision or Touching Assistance-helper provides verbal cues and/or touching/steadying and/or contact guard assistance as patient completes activity. Assistance may be provided throughout the activity or intermittently. 3-Partial/Moderate Assistance-helper does LESS THAN HALF the effort. [place] lifts, holds or supports trunk or limbs, but provides less than half the effort. 2-Substantial/Maximal Assistance-helper does MORE THAN HALF the effort. [place] lifts or holds trunk or limbs and provides more than half the effort. 6-Mwbgtjsae-ybtfds does ALL the effort. Patient does none of the effort to complete the activity. Or, the assistance of 2 or more helpers is required for the patient to complete the activity. If activity was not attempted, code reason: 7-Patient Refused. 9-Not Applicable-not attempted and the patient did not perform the activity before the current illness, exacerbation or injury. 10-Not Attempted due to Environmental Limitations-(lack of equipment, weather restraints, etc.). 88-Not Attempted due to Medical Conditions or Safety Concerns. Other Treatment Pt stood at toilet to urinate independently, SBA for safety with ambulation using FWW. Pt then ambulate to [facility] to participate in activity with other pt's. Pt able to verbalize what to do during activity, discussed and had conversations with other pt's though declined to complete activity by self. PT began co-treat after activity for family education with spouse. Pt started off co-treat with O2 at 99%-100%. Pt ambulated using FWW from [facility] to therapy gym maintaining O2 levels above 90%. Pt completed a standing/mobility task with SBA for safety, no LOB. Pt's O2 levels at 78% at end of task while sitting, with correct breathing technique pt returned to 90's using 4L O2 within 30 seconds. Pt left in care of PT. All needs met. OT Short Term Goals Short Term Goals Time Frame: July 22, 2022 Oral hygiene: 5 Toileting hygiene: 4 Shower/bathe self: 4 Lower body dressin Putting on/taking off footwear: 4 OT Jail Goals Faucet Polisher Goals Time Frame: July 29, 2022 Acute change in mental status: 0 Inattention: 1 Disorganized thinkin Altered level of consciousness: 0 Eating (QC): 6 (met) Oral Hygiene (QC): 6 (met) Toileting Hygiene (QC): 6 (met) Shower/Bathe Self (QC): 6 (not met) Upper Body Dressing (QC): 6 (not met) Lower Body Dressing (QC): 6 (not met) On/Off Footwear (QC): 6 (not met) Additional Goals: 1-Demonstrate ADL Tasks, 2-Verbalize Understanding, 3- ImproveStrength/Yoanna 1=Demonstrate adherence to instructed precautions during ADL tasks. 2=Patient will verbalize/demonstrate understanding of assistive devices/modifications for ADL. 3=Patient will improve strength/tolerance for activity to enable patient to perform ADL's. OT Education/Plan Problem List/Assessment Assessment: Decreased Activ Tolerance, Impaired Cognition Discharge Recommendations Plan/Recommendations: Continue POC Treatment Plan/Plan of Care Patient would benefit from OT for education, treatment and training to promote independence in ADL's, mobility, safety and/or upper extremity function for ADL's. Plan of Care: ADL Retraining, Functional Mobility, Group Exercise/Act as Ind, UE Funct Exercise/Act Treatment Duration: July 29, 2022 Frequency: Modified Program (IRF) (24/09) Estimated Hrs Per Day: 1.5 hours per day Agreement: Yes Rehab Potential: Poor (In correlation to Speech Pathology Rehab Potential.) Time Start Time: 09:00 Stop Time: 10:00 DATE: Jul 07, 2022 Total Time Billed (hr/min): 60 Billed Treatment Time 1 visit-ADL 1 (15 min) FA 3 (45 min) cotreat with PT [id number], individual 090 0-0930 ATTILA VÁSQUEZ Jul 07, 2022 10:31
--- NOTE | 2022-07-07 10:59 | Physical Therapy Daily Note ---
PT Daily Note-Current Subjective Pt found seated in chair /c OT present. Agreed to PT. PT/OT co-treatment for safety and skilled intervention. Pt reports that he thinks he gets a little dizzy when he breathes in too deeply. No report of pain. Pain Section J - Health Conditions 1. Rarely or not at all 2. Occasionally 3. Frequently 4. Almost constantly 8. Unable to answer Pain Effect on Sleep: 1 Pain Interference with Therapy: 1 Pain Interference w/Day-to-Day: 1 Mental Status Patient Orientation: Person, Place Attachments: Oxygen 4L /c activity. 3L at rest. Transfers SCALE: Activities may be completed with or without assistive devices. 4-Dkmdlxklai-wfrrwzf completes the activity by him/herself with no assistance from a helper. 5-Set-up or Clean-up Assistance-helper sets up or cleans up; patient completes activity. [place] assists only prior to or following the activity. 4-Supervision or Touching Assistance-helper provides verbal cues and/or touching/steadying and/or contact guard assistance as patient completes activity. Assistance may be provided throughout the activity or intermittently. 3-Partial/Moderate Assistance-helper does LESS THAN HALF the effort. [place] lift s, holds or supports trunk or limbs, but provides less than half the effort. 2-Substantial/Maximal Assistance-helper does MORE THAN HALF the effort. [place] lifts or holds trunk or limbs and provides more than half the effort. 0-Alhagtqfe-xczjfr does ALL the effort. Patient does none of the effort to complete the activity. Or, the assistance of 2 or more helpers is required for the patient to complete the activity. If activity was not attempted, code reason: 7-Patient Refused. 9-Not Applicable-not attempted and the patient did not perform the activity before the current illness, exacerbation or injury. 10-Not Attempted due to Environmental Limitations-(lack of equipment, weather restraints, etc.). 88-Not Attempted due to Medical Conditions or Safety Concerns. Sit to Stand (QC): 6 Toilet Transfer (QC): 6 Pt independent /c sit to stand transfers /c use of two armrests. Independent /c toilet transfer. Weight Bearing Full Weight Bearing Full Weight Bearing Gait Training Does the Patient Walk?: Yes Distance: 40, 100, 80, 30, 50, 30 Walk 10 feet (QC): 6 Walk 50 ft with 2 Turns(QC): 6 Gait Persons Needed: 1 Gait Assistive Device: FWW Pt independent /c ambulation and use of a FWW. No loss of balance displayed throughout. Displays steady gait cycle and good step lengths. Demonstrates limited endurance /c ambulation and required seated rest breaks. Able to ambulate up to 100 feet this visit. Exercises Standing exercises: UE beanbag toss activity led by OT while standing without use of an assistive device. (CGA) Side stepping at // x 4 trips Heel/toe raises x 15 Step taps x 15 B O2 saturations: Pre-treatment: 97% Post-ambulation 40 feet: 96% Post-standing activity: 78% 30 seconds of rest: 91% 1 minute of rest: 98% Assessment Current Status: Fair Progress Pt continues to require frequent verbal cues for deep breathing during treatment. Displays limited tolerance to therapeutic exercises and ambulation. Ambulates up to 100 feet /c use of FWW before requiring a seated rest break. O2 saturation drops to 78% /c standing activity but improves to 98% after one minute of rest. Continue to progress pt as tolerated per POC to improve strength , endurance, and functional ability. PT Prison Goals Prison Goals PT Cnc Machine Programmer Goals Time Frame: July 20, 2022 Roll Left & Right (QC): 6 Sit to Lying (QC): 6 Lying-Sitting on Side/Bed(QC): 6 Sit to Stand (QC): 6 Chair/Tfh-ra-Jcqvx Xfer(QC): 6 Toilet Transfer (QC): 6 Car Transfer (QC): 5 Does the Patient Walk: Yes Walk 10 feet (QC): 5 (with O2 assist as needed) Walk 50ft with 2 Turns (QC): 5 (with O2 assist as needed and FWW) Walk 150 ft (QC): 4 (with FWW and O2 assist, CGA due to severity of endurance deficit) Walking 10ft on Uneven Surface: 5 (with FWW and O2 assist) 1 Step (curb) (QC): 5 4 Steps (QC): 5 12 Steps (QC): 9 Picking up an Object (QC): 6 (FWW and managed services consultant) Does the Pt use WC or Scooter?: No Wheel 50 feet with 2 turns (QC: 9 Wheel 150 feet: 9 PT Plan Treatment/Plan Treatment Plan: Continue Plan of Care Treatment Plan: Bed Mobility, Education, Functional Activity Yoanna, Functional Strength, Group Therapy, Gait, Safety, Therapeutic Exercise, Transfers Treatment Duration: July 20, 2022 Frequency: Modified Program (IRF) Estimated Hrs Per Day: Other (24/09 program) Patient and/or Family Agrees t: Yes Time Time In: 929 Time Out: 1100 DATE: Jul 07, 2022 Total Billed Treatment Time: 90 Total Billed Treatment 1 visit GT x 3 EX x 2 FA x 1 Co-treatment time: Individual treatment time: 3880-4634 Total treatment time: 0197-9050 CASSIE ARMSTRONG VISITOR SERVICES ASSISTANT Jul 07, 2022 10:59
--- NOTE | 2022-07-07 12:38 | PM&R Progress Note ---
Subjective HPI/CC On Admission Date Seen by Provider: Jul 07, 2022 Time Seen by Provider: 11:45 Subjective/Events-last exam 07/07/2022: Doing well concerned about his cognition Outpatient f/u for cognitive deficit will be set up Lungs clear 07/06/2022: Doing well Tried to build confidence will undergo family training Lungs good today 07/05/2022: No major issues Doing better No pain Nausea improved 07/04/2022: No major issues Feels like he is making no progress Alcoholism and 55 years of smoking has caused med issues that will require slow recovery No pain Nausea at times Labs ok 07/03/2022: Lungs remain complicated but stable No pain reported Confusion noted but sporadic O2 maintained Nebs ordered 07/02/2022: Doing well Confusion is sporadic Nebs ordered Very end stage on multiple organ systems 07/01/2022: Doing well Confusion is labile Working with therapy 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 06/30/2022: Doing well Confusion is noted with poor recall Participation is good No falls Labs reviewed Review of Systems General: Fatigue, Malaise Objective Exam Vital Signs Vital Signs Date Time Temp Pulse Resp B/P (MAP) Pulse Ox O2 Delivery O2 Flow Rate FiO2 07/08/22 01:51 Nasal Cannula 3.00 07/07/22 21:00 98 07/07/22 19:45 36.4 61 20 129/84 (99) Capillary Refill : General Appearance: No Apparent Distress, WD/WN, Chronically ill HEENT: PERRL/EOMI, Normal ENT Inspection, Pharynx Normal Neck: Full Range of Motion, Normal Inspection, Non Tender, Supple, Carotid Bruit Respiratory: Chest Non Tender, No Accessory Muscle Use, No Respiratory Distress, Crackles, Decreased Breath Sounds Cardiovascular: No Edema, No Gallop, No JVD, No Murmur, Normal Peripheral Pulses, Irregularly Irregular Gastrointestinal: Normal Bowel Sounds, No Organomegaly, No Pulsatile Mass, Non Tender, Soft Back: Normal Inspection, No CVA Tenderness, No Vertebral Tenderness Extremity: Normal Capillary Refill, Normal Inspection, Normal Range of Motion, Non Tender, No Calf Tenderness, No Pedal Edema Neurologic/Psychiatric: Alert, Oriented x3, Normal Mood/Affect, 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 FIM Transfers Therapy Code Descriptions/Definitions Functional [place] Measure: 0=Not Assessed/NA 4=Minimal Assistance 1=Total Assistance 5=Supervision or Setup 2=Maximal Assistance 6=Modified [place] 3=Moderate Assistance 7=Complete IndependenceSCALE: Activities may be completed with or without assistive devices. 5-Ccvgvwdlei-psulkhp completes the activity by him/herself with no assistance from a helper. 5-Set-up or Clean-up Assistance-helper sets up or cleans up; patient completes activity. [place] assists only prior to or following the activity. 4-Supervision or Touching Assistance-helper provides verbal cues and/or touching/steadying and/or contact guard assistance as patient completes activity. Assistance may be provided throughout the activity or intermittently. 3-Partial/Moderate Assistance-helper does LESS THAN HALF the effort. [place] lifts, holds or supports trunk or limbs, but provides less than half the effort. 2-Substantial/Maximal Assistance-helper does MORE THAN HALF the effort. [place] lifts or holds trunk or limbs and provides more than half the effort. 3-Lrmvbvbjj-qknqbz does ALL the effort. Patient does none of the effort to complete the activity. Or, the assistance of 2 or more helpers is required for the patient to complete the activity. If activity was not attempted, code reason: 7-Patient Refused. 9-Not Applicable-not attempted and the patient did not perform the activity before the current illness, exacerbation or injury. 10-Not Attempted due to Environmental Limitations-(lack of equipment, weather restraints, etc.). 88-Not Attempted due to Medical Conditions or Safety Concerns. Roll Left to Right (QC): 6 Sit to Lying (QC): 6 Sit to Stand (QC): 6 Chair/Cwc-op-Pyjyp Xfer(QC): 6 Car Transfer (QC): 88 Gait Training Does the Patient Walk?: Yes Distance: 40, 100, 80, 30, 50, 30 Walk 10 feet (QC): 6 Walk 50 ft with 2 Turns(QC): 6 Walk 150 ft (QC): 6 Walking 10ft/uneven surface-QC: 88 (due to air hunger, desat, activity tolerance deficits.) Gait Persons Needed: 1 Gait Assistive Device: FWW Wheelchair Training Does the Pt Use a Wheelchair?: No Wheel 50 ft with 2 turns (QC): 9 Wheel 150 ft (QC): 9 Stair Training 1 Step (curb) (QC): 88 (due to air hunger, desat, activity tolerance deficits.) 4 Steps (QC): 88 (due to air hunger, desat, activity tolerance deficits.) 12 Steps (QC): 88 (due to air hunger, desat, activity tolerance deficits.) Balance Picking up an Object (QC): 88 (due to air hunger, anxiety, desat, activity tolerance deficits.) ADL-Treatment Eating (QC): 6 Oral Hygiene (QC): 6 (seated at sink) Shower/Bathe Self (QC): 4 (Supervision) Upper Body Dressing (QC): 5 Lower Body Dressing (QC): 4 (Supervision) On/Off Footwear (QC): 5 Toileting Hygiene (QC): 6 Toilet Transfer (QC): 4 (Supervision) Assessment/Plan Assessment and Plan Assess & Plan/Chief Complaint Assessment: COPD myopathy Acute on Chronic RF w/ hypoxia and hypercapnia Acute COPD Exacerbation Afib w/ RVR CAD w/ history of CABG Alcohol Withdrawal Hyponatremia DM type 2 Debility Smoker Confusion/poor recall Plan: Monitor closely Pain control O2 Nebs Aggressive PT OT 06/30/2022: Monitor closely Fall risk 07/01/2022: Monitor lungs closely 07/02/2022: Monitor lungs 07/03/2022: High risk for NH placement 07/04/2022: Continue slow recovery 07/05/2022: Monitor lungs 07/06/2022: Monitor closely 07/07/2022: Improved (1) Myopathy (2) Acute on chronic respiratory failure with hypoxia and hypercapnia Status: Acute (3) Acute exacerbation of chronic obstructive pulmonary disease (COPD) Status: Acute (4) Atrial fibrillation with RVR (5) Coronary artery disease without angina pectoris Status: Chronic (6) Alcoholism Status: Acute (7) Primary hypertension (8) CAD (coronary artery disease) Status: Chronic (9) Mixed hyperlipidemia (10) Anemia due to acute blood loss Status: Acute (11) HLD (hyperlipidemia) Status: Chronic (12) Alcohol intoxication in active alcoholic Status: Acute (13) Heavy smoker ALEXANDRA JUDGE DO Jul 07, 2022 12:38
[2022-07-07] MEDS: ALPRAZolam 0.25 MG (XANAX) TAB PO PRN (17:04)
[2022-07-07] MEDS ORDERED: RT-ALBUTEROL SULF 2.5 MG/3 ML PRE-MIX VIAL INH PRN (17:15)
[2022-07-07 19:45] VITALS: BP 129/84
[2022-07-07] MEDS: MELATONIN 3 MG TABLET PO PRN (21:06)
[2022-07-07] MEDS: LORazepam 1 MG (ATIVAN) TAB PO PRN (21:16)
[2022-07-08] MEDS: RT-ALBUTEROL/IPRATROPIUM 3 ML (DUONEB) VIAL INH SCH ×6 (01:51→23:40)
--- NOTE | 2022-07-08 05:24 | PM&R Progress Note ---
Subjective HPI/CC On Admission Date Seen by Provider: Jul 08, 2022 Time Seen by Provider: 11:45 Subjective/Events-last exam 07/08/2022: Doing very well Ready for DC tomorrow No issues 07/07/2022: Doing well concerned about his cognition Outpatient f/u for cognitive deficit will be set up Lungs clear 07/06/2022: Doing well Tried to build confidence will undergo family training Lungs good today 07/05/2022: No major issues Doing better No pain Nausea improved 07/04/2022: No major issues Feels like he is making no progress Alcoholism and 55 years of smoking has caused med issues that will require slow recovery No pain Nausea at times Labs ok 07/03/2022: Lungs remain complicated but stable No pain reported Confusion noted but sporadic O2 maintained Nebs ordered 07/02/2022: Doing well Confusion is sporadic Nebs ordered Very end stage on multiple organ systems 07/01/2022: Doing well Confusion is labile Working with therapy 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 06/30/2022: Doing well Confusion is noted with poor recall Participation is good No falls Labs reviewed Review of Systems General: Fatigue, Malaise Pulmonary: Dyspnea, Cough Objective Exam Vital Signs Vital Signs Date Time Temp Pulse Resp B/P (MAP) Pulse Ox O2 Delivery O2 Flow Rate FiO2 07/09/22 05:21 98 Nasal Cannula 3.00 07/08/22 19:36 36.1 68 20 110/63 (79) Capillary Refill : General Appearance: No Apparent Distress, WD/WN, Chronically ill HEENT: PERRL/EOMI, Normal ENT Inspection, Pharynx Normal Neck: Full Range of Motion, Normal Inspection, Non Tender, Supple, Carotid Bruit Respiratory: Chest Non Tender, No Accessory Muscle Use, No Respiratory Distress, Crackles, Decreased Breath Sounds Cardiovascular: No Edema, No Gallop, No JVD, No Murmur, Normal Peripheral Pulses, Irregularly Irregular Gastrointestinal: Normal Bowel Sounds, No Organomegaly, No Pulsatile Mass, Non Tender, Soft Back: Normal Inspection, No CVA Tenderness, No Vertebral Tenderness Extremity: Normal Capillary Refill, Normal Inspection, Normal Range of Motion, Non Tender, No Calf Tenderness, No Pedal Edema Neurologic/Psychiatric: Alert, Oriented x3, Normal Mood/Affect, manager lvn II-XII Norm as Tested, Abnormal Gait, Depressed Affect, Motor Weakness (generalized 3/5) Skin: Normal Color, Warm/Dry Lymphatic: No Adenopathy Results/Procedures Lab Patient resulted labs reviewed. FIM Transfers Therapy Code Descriptions/Definitions Functional [place] Measure: 0=Not Assessed/NA 4=Minimal Assistance 1=Total Assistance 5=Supervision or Setup 2=Maximal Assistance 6=Modified [place] 3=Moderate Assistance 7=Complete IndependenceSCALE: Activities may be completed with or without assistive devices. 5-Ohnjltkwzr-imzigsx completes the activity by him/herself with no assistance from a helper. 5-Set-up or Clean-up Assistance-helper sets up or cleans up; patient completes activity. [place] assists only prior to or following the activity. 4-Supervision or Touching Assistance-helper provides verbal cues and/or t ouching/steadying and/or contact guard assistance as patient completes activity. Assistance may be provided throughout the activity or intermittently. 3-Partial/Moderate Assistance-helper does LESS THAN HALF the effort. [place] lifts, holds or supports trunk or limbs, but provides less than half the effort. 2-Substantial/Maximal Assistance-helper does MORE THAN HALF the effort. [place] lifts or holds trunk or limbs and provides more than half the effort. 9-Rudwiyxjz-nxbwuo does ALL the effort. Patient does none of the effort to complete the activity. Or, the assistance of 2 or more helpers is required for the patient to complete the activity. If activity was not attempted, code reason: 7-Patient Refused. 9-Not Applicable-not attempted and the patient did not perform the activity before the current illness, exacerbation or injury. 10-Not Attempted due to Environmental Limitations-(lack of equipment, weather restraints, etc.). 88-Not Attempted due to Medical Conditions or Safety Concerns. Roll Left to Right (QC): 6 Sit to Lying (QC): 6 Sit to Stand (QC): 6 Chair/Mwb-gd-[place] Xfer(QC): 6 Car Transfer (QC): 88 Gait Training Does the Patient Walk?: Yes Distance: 40, 100, 80, 30, 50, 30 Walk 10 feet (QC): 6 Walk 50 ft with 2 Turns(QC): 6 Walk 150 ft (QC): 6 Walking 10ft/uneven surface-QC: 88 (due to air hunger, desat, activity tolerance deficits.) Gait Persons Needed: 1 Gait Assistive Device: FWW Wheelchair Training Does the Pt Use a Wheelchair?: No Wheel 50 ft with 2 turns (QC): 9 Wheel 150 ft (QC): 9 Stair Training 1 Step (curb) (QC): 88 (due to air hunger, desat, activity tolerance deficits.) 4 Steps (QC): 88 (due to air hunger, desat, activity tolerance deficits.) 12 Steps (QC): 88 (due to air hunger, desat, activity tolerance deficits.) Balance Picking up an Object (QC): 88 (due to air hunger, anxiety, desat, activity tolerance deficits.) ADL-Treatment Eating (QC): 6 Oral Hygiene (QC): 6 (seated at sink) Shower/Bathe Self (QC): 4 (Supervision) Upper Body Dressing (QC): 5 Lower Body Dressing (QC): 4 (Supervision) On/Off Footwear (QC): 5 Toileting Hygiene (QC): 6 Toilet Transfer (QC): 4 (Supervision) Assessment/Plan Assessment and Plan Assess & Plan/Chief Complaint Assessment: COPD myopathy Acute on Chronic RF w/ hypoxia and hypercapnia Acute COPD Exacerbation Afib w/ RVR CAD w/ history of CABG Alcohol Withdrawal Hyponatremia DM type 2 Debility Smoker Confusion/poor recall Plan: Monitor closely Pain control O2 Nebs Aggressive PT OT 06/30/2022: Monitor closely Fall risk 07/01/2022: Monitor lungs closely 07/02/2022: Monitor lungs 07/03/2022: High risk for NH placement 07/04/2022: Continue slow recovery 07/05/2022: Monitor lungs 07/06/2022: Monitor closely 07/07/2022: Improved 07/08/2022: DC tomorrow (1) Myopathy (2) Acute on chronic respiratory failure with hypoxia and hypercapnia Status: Acute (3) Acute exacerbation of chronic obstructive pulmonary disease (COPD) Status: Acute (4) Atrial fibrillation with RVR (5) Coronary artery disease without angina pectoris Status: Chronic (6) Alcoholism Status: Acute (7) Primary hypertension (8) CAD (coronary artery disease) Status: Chronic (9) Mixed hyperlipidemia (10) Anemia due to acute blood loss Status: Acute (11) HLD (hyperlipidemia) Status: Chronic (12) Alcohol intoxication in active alcoholic Status: Acute (13) Heavy smoker ALEXANDRA JUDGE DO Jul 08, 2022 05:24
[2022-07-08] MEDS: MULTIVIT W/MINERALS TAB (THERAGRAN M) PO SCH (06:17)
[2022-07-08] MEDS: ALPRAZolam 0.25 MG (XANAX) TAB PO PRN ×2 (06:18→14:01)
[2022-07-08] MEDS: RT-BUDESONIDE NEBS 0.5 MG/2ML (PULMICORT) AMP INH SCH ×2 (07:01→23:40)
[2022-07-08] MEDS: polyethylene glycoL POWDER 17 GM (MIRALAX) PACK PO SCH ×2 (07:26→20:17)
[2022-07-08 07:28] VITALS: BP 129/80
[2022-07-08] MEDS: AMIODARONE 200 MG (CORDARONE) TAB PO SCH ×2 (07:31→20:17)
[2022-07-08] MEDS: SENNOSIDES 8.6 MG (SENOKOT) TAB PO SCH ×2 (07:31→20:17)
[2022-07-08] MEDS: FOLIC ACID 1 MG TAB PO SCH (07:32)
[2022-07-08] MEDS: DOCUSATE SODIUM 100 MG (COLACE) CAP PO SCH ×2 (07:32→20:17)
[2022-07-08] MEDS: APIXABAN 5 MG (ELIQUIS) TABLET PO SCH ×2 (07:32→20:17)
--- NOTE | 2022-07-08 10:36 | Occupational Ther Daily Note ---
OT Current Status-Daily Note Subjective Pt alert, lying in bed. Pt reluctantly participate in skilled therapy. No c/o pain. Pt states that he is going home tomorrow then after a few minutes asks when he can go home. Pt continues to need reoriented to place and situation. Mental Status/Objective Patient Orientation: Person, Place, Time, Situation Attachments: Oxygen (3L rest 4L with activity) ADL-Treatment Pt agrees to sponge bath, declines shower stating he will get sick if he does a shower. Pt sat at sink to complete shower, cues needed to remain on task and what comes next. Pt able to complete all tasks physically by self. Pt independent with toileting, supervision for safety during transfer due to monitoring O2 tubing. Set up for UBD and footwear. Set up for LBD. Independent for oral care and eating. After session, pt lying in bed with call light/phone in reach. Safety measures in place. Therapy Code Descriptions/Definitions Functional [place] Measure: 0=Not Assessed/NA 4=Minimal Assistance 1=Total Assistance 5=Supervision or Setup 2=Maximal Assistance 6=Modified [place] 3=Moderate Assistance 7=Complete IndependenceSCALE: Activities may be completed with or without assistive devices. 6-Rehuvkhuuh-hpkjebs completes the activity by him/herself with no assistance from a helper. 5-Set-up or Clean-up Assistance-helper sets up or cleans up; patient completes activity. [place] assists only prior to or following the activity. 4-Supervision or Touching Assistance-helper provides verbal cues and/or touching/steadying and/or contact guard assistance as patient completes activity. Assistance may be provided throughout the activity or intermittently. 3-Partial/Moderate Assistance-helper does LESS THAN HALF the effort. [place] lifts, holds or supports trunk or limbs, but provides less than half the effort. 2-Substantial/Maximal Assistance-helper does MORE THAN HALF the effort. [place] lifts or holds trunk or limbs and provides more than half the effort. 9-Zwtqmkudu-tgkira does ALL the effort. Patient does none of the effort to complete the activity. Or, the assistance of 2 or more helpers is required for the patient to complete the activity. If activity was not attempted, code reason: 7-Patient Refused. 9-Not Applicable-not attempted and the patient did not perform the activity bef ore the current illness, exacerbation or injury. 10-Not Attempted due to Environmental Limitations-(lack of equipment, weather r estraints, etc.). 88-Not Attempted due to Medical Conditions or Safety Concerns. Eating (QC): 6 Oral Hygiene (QC): 6 Shower/Bathe Self (QC): 4 Upper Body Dressing (QC): 5 Lower Body Dressing (QC): 5 On/Off Footwear: 5 Toileting Hygiene (QC): 6 Toilet Transfer (QC): 4 Pt takes increased time to complete all tasks due to air hunger/recovery breaks. Other Treatment Pt able to ambulate using FWW, assist only if O2 tank is needed for increased distances. Pt is aware of O2 tubing, at times moves out of the way when ambulating then other times pt will step over tubing. BIMS CAM BIMS Expression of Ideas and Wants: Without Difficulty Understanding Verbal Content: Understands Brief Interview/Mental Status: Yes IRF DIONICIO BIMS: IRF DIONICIO BIMS Response (Comments) Value Repitition of Three Words Three 3 Recalls Socks Yes, After Cueing (Wear) 1 Recalls Blue Yes, No Cue Required 2 Recalls Bed Yes, No Cue Required 2 Year Correct 3 Month Missed by 6 Days/1 Month 1 Day Correct 1 Total 13 Patient Normally Able to Recal: Current Session Should Staff Asses. Mental St.: Yes CAM Mental Status Change/Baseline: 0 Inattention: 1 Disorganized thinkin Altered level of consciousness: 0 OT Short Term Goals Short Term Goals Time Frame: July 22, 2022 Oral hygiene: 5 Toileting hygiene: 4 Shower/bathe self: 4 Lower body dressin Putting on/taking off footwear: 4 OT Supervisor [employer] Goals Supervisor [employer] Goals Time Frame: July 29, 2022 Acute change in mental status: 0 Inattention: 1 Disorganized thinkin Altered level of consciousness: 0 Eating (QC): 6 (met) Oral Hygiene (QC): 6 (met) Toileting Hygiene (QC): 6 (met) Shower/Bathe Self (QC): 6 (not met) Upper Body Dressing (QC): 6 (not met) Lower Body Dressing (QC): 6 (not met) On/Off Footwear (QC): 6 (not met) Additional Goals: 1-Demonstrate ADL Tasks, 2-Verbalize Understanding, 3- ImproveStrength/Yoanna 1=Demonstrate adherence to instructed precautions during ADL tasks. 2=Patient will verbalize/demonstrate understanding of assistive devices /modifications for ADL. 3=Patient will improve strength/tolerance for activity to enable patient to perform ADL's. OT Education/Plan Problem List/Assessment Assessment: Decreased Activ Tolerance, Decreased Safety Aware, Impaired Cognition, Impaired Self-Care Skills Discharge Recommendations Plan/Recommendations: Continue POC Treatment Plan/Plan of Care Patient would benefit from OT for education, treatment and training to promote independence in ADL's, mobility, safety and/or upper extremity function for ADL's. Plan of Care: ADL Retraining, Functional Mobility, Group Exercise/Act as Ind, UE Funct Exercise/Act Treatment Duration: July 29, 2022 Frequency: Modified Program (IRF) (24/09) Estimated Hrs Per Day: 1.5 hours per day Agreement: Yes Rehab Potential: Poor (In correlation to Speech Pathology Rehab Potential.) Time Start Time: 08:55 Stop Time: 10:45 DATE: Jul 08, 2022 Total Time Billed (hr/min): 110 Billed Treatment Time 1 visit-ADL 6 (90 min) FA 1 (20 min) ATTILA VÁSQUEZ Jul 08, 2022 10:36
--- NOTE | 2022-07-08 11:37 | Physical Therapy Daily Note ---
PT Daily Note-Current Subjective Pt found laying in bed upon entry. Agreed to PT. Pt reports that he thinks his breathing has been a little better since he has got here. States that he feels a little bit constipated and requests medication from nurse. Pain Section J - Health Conditions 1. Rarely or not at all 2. Occasionally 3. Frequently 4. Almost constantly 8. Unable to answer Pain Effect on Sleep: 1 Pain Interference with Therapy: 1 Pain Interference w/Day-to-Day: 1 Mental Status Patient Orientation: Person, Confused, Place Transfers SCALE: Activities may be completed with or without assistive devices. 1-Psbjgvqfgs-dofjxsq completes the activity by him/herself with no assistance from a helper. 5-Set-up or Clean-up Assistance-helper sets up or cleans up; patient completes activity. [place] assists only prior to or following the activity. 4-Supervision or Touching Assistance-helper provides verbal cues and/or touching/steadying and/or contact guard assistance as patient completes activity. Assistance may be provided throughout the activity or intermittently. 3-Partial/Moderate Assistance-helper does LESS THAN HALF the effort. [place] lifts, holds or supports trunk or limbs, but provides less than half the effort. 2-Substantial/Maximal Assistance-helper does MORE THAN HALF the effort. [place] lifts or holds trunk or limbs and provides more than half the effort. 5-Bdmgutrjo-qcssdg does ALL the effort. Patient does none of the effort to complete the activity. Or, the assistance of 2 or more helpers is required for the patient to complete the activity. If activity was not attempted, code reason: 7-Patient Refused. 9-Not Applicable-not attempted and the patient did not perform the activity before the current illness, exacerbation or injury. 10-Not Attempted due to Environmental Limitations-(lack of equipment, weather restraints, etc.). 88-Not Attempted due to Medical Conditions or Safety Concerns. Roll Left & Right (QC): 6 Sit to Lying (QC): 6 Lying to Sitting/Side of Bed(Q: 6 Sit to Stand (QC): 6 Chair/Pkq-gd-Tapwu Xfer(QC): 6 Toilet Transfer (QC): 6 Car Transfer (QC): 6 Pt independent /c all completed transfers. No loss of balance displayed throughout. No verbal cues required. Weight Bearing Full Weight Bearing Full Weight Bearing Gait Training Does the Patient Walk?: Yes Distance: 150, 100, 50 Walk 10 feet (QC): 6 Walk 50 ft with 2 Turns(QC): 6 Walk 150 ft (QC): 6 Walking 10ft/uneven surface-QC: 6 Gait Persons Needed: 1 Gait Assistive Device: FWW Pt independent /c ambulation using FWW. Able to ambulate up to 150 feet before requiring a seated rest break. O2 saturation at 94% after 150 feet of ambulation then kash to 97% after 30 seconds. Demonstrates steady gait speed /c good step lengths. No loss of balance displayed throughout. Wheelchair Training Does the Pt Use a Wheelchair?: No Stair Training Stair Training: Handrails/: 2 handrails #of Steps: 4 1 Step (curb) (QC): 6 4 Steps (QC): 6 12 Steps (QC): 88 Stairs: Pattern: Step to Pt independent /c stair training. Completes steps using 2 handrails and a step to pattern. Reported fatigue after completion of 4 steps. No loss of balance displayed. Balance Picking up an Object (QC): 6 Special Test Comments Pt picks up object off of floor independently /c use of grabber. Places one hand on FWW to complete. Assessment Current Status: Good Progress Pt displayed good tolerance to gait and functional training. Able to ambulate up to 150 /c use of FWW independently. Pt completes transfers, stairs, and bed mobility independently. Pt reports fatigue at end of visit and requests to lay down in bed. Continue to progress pt as tolerated per POC to improve strength, endurance, and functional ability. PT Women'S Health Care Nurse Practitioner Goals Women'S Health Care Nurse Practitioner Goals PT Women'S Health Care Nurse Practitioner Goals Time Frame: July 20, 2022 Roll Left & Right (QC): 6 Sit to Lying (QC): 6 Lying-Sitting on Side/Bed(QC): 6 Sit to Stand (QC): 6 Chair/Gta-ri-Jwctf Xfer(QC): 6 Toilet Transfer (QC): 6 Car Transfer (QC): 5 Does the Patient Walk: Yes Walk 10 feet (QC): 5 (with O2 assist as needed) Walk 50ft with 2 Turns (QC): 5 (with O2 assist as needed and FWW) Walk 150 ft (QC): 4 (with FWW and O2 assist, CGA due to severity of endurance deficit) Walking 10ft on Uneven Surface: 5 (with FWW and O2 assist) 1 Step (curb) (QC): 5 4 Steps (QC): 5 12 Steps (QC): 9 Picking up an Object (QC): 6 (FWW and medication specialist) Does the Pt use WC or Scooter?: No Wheel 50 feet with 2 turns (QC: 9 Wheel 150 feet: 9 PT Plan Treatment/Plan Treatment Plan: Continue Plan of Care Treatment Plan: Bed Mobility, Education, Functional Activity Yoanna, Functional Strength, Group Therapy, Gait, Safety, Therapeutic Exercise, Transfers Treatment Duration: July 20, 2022 Frequency: Modified Program (IRF) Estimated Hrs Per Day: Other (24/09 program) Patient and/or Family Agrees t: Yes Time Time In: 1100 Time Out: 1210 DATE: Jul 08, 2022 Total Billed Treatment Time: 70 Total Billed Treatment 1 visit GT x 2 FA x 3 CASSIE ARMSTRONG PTA Jul 08, 2022 11:37
[2022-07-08] MEDS: FLEET ENEMA ADULT 1 EA BTL PR PRN (11:50)
[2022-07-08] MEDS: LORazepam 1 MG (ATIVAN) TAB PO PRN ×2 (13:23→17:41)
[2022-07-08] MEDS: guaiFENesin/CODEINE (ROBITUSSIN AC) 10ML UDC PO PRN (14:11)
[2022-07-08 14:23] VITALS: BP 132/69
[2022-07-08] MEDS ORDERED: NITROGLYCERIN 0.4 MG SL TABS BTL 25'S SL PRN (15:15)
[2022-07-08 19:36] VITALS: BP 110/63
[2022-07-08] MEDS: MELATONIN 3 MG TABLET PO PRN (20:17)
[2022-07-09] MEDS: RT-ALBUTEROL/IPRATROPIUM 3 ML (DUONEB) VIAL INH SCH ×3 (02:28→09:43)
[2022-07-09] MEDS: MULTIVIT W/MINERALS TAB (THERAGRAN M) PO SCH (05:16)
[2022-07-09] MEDS: ALPRAZolam 0.25 MG (XANAX) TAB PO PRN (05:16)
[2022-07-09] MEDS ORDERED: NITR0.4T42 SL (06:41)
[2022-07-09] MEDS ORDERED: SENN-271 PO (06:41)
[2022-07-09] MEDS ORDERED: ALPR.25T PO (06:41)
[2022-07-09] MEDS ORDERED: AMIO200T65 PO (06:41)
[2022-07-09] MEDS ORDERED: MULT-1137 PO (06:41)
[2022-07-09] MEDS ORDERED: APIX5TAB PO (06:41)
[2022-07-09] MEDS ORDERED: BUDE0.5A INH (06:41)
[2022-07-09] MEDS ORDERED: FOLI1TAB33 PO (06:41)
[2022-07-09] MEDS ORDERED: DILT180C85 PO (06:41)
[2022-07-09] MEDS ORDERED: IPRA3AMP31 INH (06:41)
[2022-07-09] MEDS ORDERED: ASPI-1238 PO (06:41)
--- NOTE | 2022-07-09 06:42 | D/C HH Face to Face Order ---
D/C Face to Face Orders Reconcile Patient Problems Problems Reviewed?: Yes Instructions for Patient Via [facility], Patient Instructions/FollowUp: COPD Physician to follow Patient: [facility] Discharge Diet for Home: No Restrictions Patient Problems: AF COPD Patient Data-Allergies,Ht & Wt Patient Allergies: Coded Allergies: No Known Drug Allergies (Unverified , 12/12/17) Height (Feet): 5 Height (Inches): 11.00 Weight (Pounds): 176 Weight (Ounces): 1.6 Home Health Need/Face to Face Date of Face to Face: Jul 09, 2022 Clinical Findings: Generalized weakness and fatigue, Instability, Muscle weakness I have seen Pt [id number]: Yes Discharged To: Home Diagnosis/Conditions: COPD Patient is Homebound due to: CognItive deficits, Muscle weakness, Shortness of breath/distress Homebound Status Due to the above stated illness, injury or surgical procedure (medical condition or diagnosis) and associated clinical findings, the patient is homebound because of his/her inability to leave home except with aid of a supportive device and/or person AND leaving the home requires a considerable and taxing effort or is medically contraindicated. Pt req the following assistanc: Walker Home Health Nursing Orders Home Health Services Order: Nursing Services, Dirt Supervisor-Evaluate & Treat, Physical Therapy-Evaluate & Treat Certify Stmt I certify that this patient is under my care and that I, a nurse practitioner or a physician; a contract assistant working with me, had a face to face encounter that - meets the physician face to face encounter requirements with this patient as dated. ALEXANDRA JUDGE DO Jul 09, 2022 06:42
--- NOTE | 2022-07-09 06:42 | Discharge Summary ---
Diagnosis/Chief Complaint Date of Admission Jun 29, 2022 at 12:10 Date of Discharge Discharge Date: Jul 09, 2022 Discharge Diagnosis Assessment: COPD myopathy Acute on Chronic RF w/ hypoxia and hypercapnia Acute COPD Exacerbation Afib w/ RVR CAD w/ history of CABG Alcohol Withdrawal Hyponatremia DM type 2 Debility Smoker Confusion/poor recall Plan: Monitor closely Pain control O2 Nebs Aggressive PT OT 06/30/2022: Monitor closely Fall risk 07/01/2022: Monitor lungs closely 07/02/2022: Monitor lungs 07/03/2022: High risk for NH placement 07/04/2022: Continue slow recovery 07/05/2022: Monitor lungs 07/06/2022: Monitor closely 07/07/2022: Improved 07/08/2022: DC tomorrow (1) Myopathy (2) Acute on chronic respiratory failure with hypoxia and hypercapnia Status: Acute (3) Acute exacerbation of chronic obstructive pulmonary disease (COPD) Status: Acute (4) Atrial fibrillation with RVR (5) Coronary artery disease without angina pectoris Status: Chronic (6) Alcoholism Status: Acute (7) Primary hypertension (8) CAD (coronary artery disease) Status: Chronic (9) Mixed hyperlipidemia (10) Anemia due to acute blood loss Status: Acute (11) HLD (hyperlipidemia) Status: Chronic (12) Alcohol intoxication in active alcoholic Status: Acute (13) Heavy smoker Discharge Summary Discharge Physical Examination Allergies: Coded Allergies: No Known Drug Allergies (Unverified , 12/12/17) Vitals & I&Os Vital Signs Date Time Temp Pulse Resp B/P (MAP) Pulse Ox O2 Delivery O2 Flow Rate FiO2 07/09/22 10:25 36.6 71 20 150/69 98 Nasal Cannula 3.00 General Appearance: Alert, Oriented X3, Cooperative Respiratory: Clear to Auscultation Cardiovascular: Regular Rate Hospital Course Uneventful hospital course after he was moved from ICU to ARU following a long hosp course following acute on chronic resp failure and alcohol withdrawal. He had a slow recovery but was maintained on vitamin supp along with OAC and cardiac meds for new onset AF. O2 maintained fpc was adjusted and patient had episodes of confusion but will have close outpatient f/u to eval treatment. Overall he did well and remained stable but end stage COPD and alcoholism precludes poor prognosis overall. Labs (last 24 hrs) Laboratory Tests 06/29/22 15:33: Glucometer 139H 06/29/22 20:26: Glucometer 93 06/30/22 05:22: White Blood Count 10.6, Red Blood Count 2.75L, Hemoglobin 10.0L, Hematocrit 30L, Mean Corpuscular Volume 107H, Mean Corpuscular Hemoglobin 36H, Mean Corpuscular Hemoglobin Concent 34, Red Cell Distribution Width 12.7, Platelet Count 233, Mean Platelet Volume 9.0, Immature Granulocyte % (Auto) 1, Neutrophils (%) (Auto) 81H, Lymphocytes (%) (Auto) 7L, Monocytes (%) (Auto) 8, Eosinophils (%) (Auto) 3, Basophils (%) (Auto) 0, Neutrophils # (Auto) 8.6H, Lymphocytes # (Auto) 0.8L, Monocytes # (Auto) 0.8, Eosinophils # (Auto) 0.3, Basophils # (Auto) 0.0, Immature Granulocyte # (Auto) 0.1, Neutrophils % (Manual) 81, Lymphocytes % (Manual) 8, Monocytes % (Manual) 7, Eosinophils % (Manual) 4, Platelet Estimate ADEQUATE, Hypochromasia SLIGHT, Macrocytosis MODERATE, Sodium Level 133L, Potassium Level 3.9, Chloride Level 92L, Carbon Dioxide Level 32, Anion Gap 9, Blood Urea Nitrogen 6L, Creatinine 0.60, Estimat Glomerular Filtration Rate 103, BUN/Creatinine Ratio 10, Glucose Level 99, Calcium Level 8.3L, Corrected Calcium 9.2, Total Bilirubin 0.4, Aspartate Amino Transf (AST/SGOT) 11, Alanine Aminotransferase (ALT/SGPT) 13, Alkaline Phosphatase 59, Total Protein 5.1L, Albumin 2.9L 06/30/22 05:52: Glucometer 102 06/30/22 10:53: Glucometer 111H 06/30/22 15:09: Glucometer 95 06/30/22 20:24: Glucometer 112H 07/01/22 05:45: Glucometer 103 07/01/22 10:49: Glucometer 115H 07/04/22 05:05: White Blood Count 4.3, Red Blood Count 2.79L, Hemoglobin 9.9L, Hematocrit 30L, Mean Corpuscular Volume 106H, Mean Corpuscular Hemoglobin 36H, Mean Corpuscular Hemoglobin Concent 34, Red Cell Distribution Width 12.1, Platelet Count 238, Mean Platelet Volume 8.9L, Immature Granulocyte % (Auto) 1, Neutrophils (%) (Auto) 58, Lymphocytes (%) (Auto) 21, Monocytes (%) (Auto) 16H, Eosinophils (%) (Auto) 5, Basophils (%) (Auto) 1, Neutrophils # (Auto) 2.5, Lymphocytes # (Auto) 0.9L, Monocytes # (Auto) 0.7, Eosinophils # (Auto) 0.2, Basophils # (Auto) 0.0, Immature Granulocyte # (Auto) 0.0, Sodium Level 133L, Potassium Level 4.3, Chloride Level 96L, Carbon Dioxide Level 29, Anion Gap 8, Blood Urea Nitrogen 5L , Creatinine 0.63, Estimat Glomerular Filtration Rate 102, BUN/Creatinine Ratio 8, Glucose Level 94, Calcium Level 8.7, Corrected Calcium 9.5, Total Bilirubin 0.3, Aspartate Amino Transf (AST/SGOT) 12, Alanine Aminotransferase (ALT/SGPT) 10, Alkaline Phosphatase 65, Total Protein 5.5L, Albumin 3.0L Pending Labs Laboratory Tests 06/29/22 15:33: Glucometer 139 06/29/22 20:26: Glucometer 93 06/30/22 05:22: White Blood Count 10.6, Red Blood Count 2.75, Hemoglobin 10.0, Hematocrit 30, Mean Corpuscular Volume 107, Mean Corpuscular Hemoglobin 36, Mean Corpuscular Hemoglobin Concent 34, Red Cell Distribution Width 12.7, Platelet Count 233, Mean Platelet Volume 9.0, Immature Granulocyte % (Auto) 1, Neutrophils (%) (Auto) 81, Lymphocytes (%) (Auto) 7, Monocytes (%) (Auto) 8, Eosinophils (%) (Auto) 3, Basophils (%) (Auto) 0, Neutrophils # (Auto) 8.6, Lymphocytes # (Auto) 0.8, Monocytes # (Auto) 0.8, Eosinophils # (Auto) 0.3, Basophils # (Auto) 0.0, Immature Granulocyte # (Auto) 0.1, Neutrophils % (Manual) 81, Lymphocytes % (Manual) 8, Monocytes % (Manual) 7, Eosinophils % (Manual) 4, Platelet Estimate ADEQUATE, Hypochromasia SLIGHT, Macrocytosis MODERATE, Sodium Level 133, Potassium Level 3.9, Chloride Level 92, Carbon Dioxide Level 32, Anion Gap 9, Blood Urea Nitrogen 6, Creatinine 0.60, Estimat Glomerular Filtration Rate 103, BUN/Creatinine Ratio 10, Glucose Level 99, Calcium Level 8.3, Corrected Calcium 9.2, Total Bilirubin 0.4, Aspartate Amino Transf (AST/SGOT) 11, Alanine Aminotransferase (ALT/SGPT) 13, Alkaline Phosphatase 59, Total Protein 5.1, Albumin 2.9 06/30/22 05:52: Glucometer 102 06/30/22 10:53: Glucometer 111 06/30/22 15:09: Glucometer 95 06/30/22 20:24: Glucometer 112 07/01/22 05:45: Glucometer 103 07/01/22 10:49: Glucometer 115 07/04/22 05:05: White Blood Count 4.3, Red Blood Count 2.79, Hemoglobin 9.9, Hematocrit 30, Mean Corpuscular Volume 106, Mean Corpuscular Hemoglobin 36, Mean Corpuscular Hemoglobin Concent 34, Red Cell Distribution Width 12.1, Platelet Count 238, Mean Platelet Volume 8.9, Immature Granulocyte % (Auto) 1, Neutrophils (%) (Auto) 58, Lymphocytes (%) (Auto) 21, Monocytes (%) (Auto) 16, Eosinophils (%) (Auto) 5, Basophils (%) (Auto) 1, Neutrophils # (Auto) 2.5, Lymphocytes # (Auto) 0.9, Monocytes # (Auto) 0.7, Eosinophils # (Auto) 0.2, Basophils # (Auto) 0.0, Immature Granulocyte # (Auto) 0.0, Sodium Level 133, Potassium Level 4.3, Chloride Level 96, Carbon Dioxide Level 29, Anion Gap 8, Blood Urea Nitrogen 5, Creatinine 0.63, Estimat Glomerular Filtration Rate 102, BUN/Creatinine Ratio 8, Glucose Level 94, Calcium Level 8.7, Corrected Calcium 9.5, Total Bilirubin 0.3, Aspartate Amino Transf (AST/SGOT) 12, Alanine Aminotransferase (ALT/SGPT) 10, Alkaline Phosphatase 65, Total Protein 5.5, Albumin 3.0 Discharge Home Medications: Active Scripts Active Tab-A-Andrei Multivit with Iron (Multivitamin/Iron/Folic Acid) 18 Mg Iron-400 Mcg Tablet 1 Ea PO DAILY@0700 Folic Acid 1 Mg Tablet 1 Mg PO DAILY Stool Softener-Laxative Tablet (Sennosides/Docusate Sodium) 8.6 Mg-50 Mg Tablet 2 Ea PO BID PRN Budesonide 0.5 Mg/2 Ml Ampul.neb 0.5 Mg INH RTBID Xanax Tablet (Alprazolam) 0.25 Mg Tab 0.25 Mg PO Q8H PRN Diltiazem 24Hr ER (Diltiazem HCl) 180 Mg Cap.er.24h 180 Mg PO DAILY Nitroglycerin 0.4 Mg Tab.subl 0 Mg SL NEEDED PRN every 5 min prn chest pain Amiodarone HCl 200 Mg Tablet 400 Mg PO BID Eliquis (Apixaban) 5 Mg Tablet 5 Mg PO BID Iprat-Albut 0.5-3(2.5) mg/3 ml (Ipratropium/Albuterol Sulfate) 0.5 Mg-3 Mg (2.5 Mg Base)/3 Ml Ampul.neb 3 Ml INH RTQ4HR Aspirin EC (Aspirin) 81 Mg Tablet.dr 81 Mg PO DAILY Reported Tylenol Extra Strength (Acetaminophen) 500 Mg Tablet 1,000 Mg PO Q8H PRN Instructions to patient/family Please see electronic discharge instructions given to patient. Diagnosis/Problems Diagnosis/Problems (1) Myopathy (2) Acute on chronic respiratory failure with hypoxia and hypercapnia Status: Acute (3) Acute exacerbation of chronic obstructive pulmonary disease (COPD) Status: Acute (4) Atrial fibrillation with RVR (5) Coronary artery disease without angina pectoris Status: Chronic (6) Alcoholism Status: Acute (7) Primary hypertension (8) CAD (coronary artery disease) Status: Chronic (9) Mixed hyperlipidemia (10) Anemia due to acute blood loss Status: Acute (11) HLD (hyperlipidemia) Status: Chronic (12) Alcohol intoxication in active alcoholic Status: Acute (13) Heavy smoker ALEXANDRA JUDGE DO Jul 09, 2022 06:42
[2022-07-09 07:04] VITALS: BP 150/69
[2022-07-09] MEDS: APIXABAN 5 MG (ELIQUIS) TABLET PO SCH (08:27)
[2022-07-09] MEDS: DOCUSATE SODIUM 100 MG (COLACE) CAP PO SCH (08:27)
[2022-07-09] MEDS: FOLIC ACID 1 MG TAB PO SCH (08:27)
[2022-07-09] MEDS: SENNOSIDES 8.6 MG (SENOKOT) TAB PO SCH (08:27)
[2022-07-09] MEDS: polyethylene glycoL POWDER 17 GM (MIRALAX) PACK PO SCH (08:27)
[2022-07-09] MEDS: AMIODARONE 200 MG (CORDARONE) TAB PO SCH (08:27)
[2022-07-09] MEDS: RT-BUDESONIDE NEBS 0.5 MG/2ML (PULMICORT) AMP INH SCH (09:50)
[2022-07-09 10:25] VITALS: BP 150/69
--- NOTE | 2022-07-11 09:26 | Therapy Team Discharge Summary ---
Therapy Discharge Summary Discharge Recommendations Date of Discharge Jul 09, 2022 at 10:25 Therapy D/C Recommendations: Home w/ Family Support, Other, See Comments (Home Health PT followed by Outpatient PT and/or Cardiac Rehab when MD allows.) Physical Therapy Patient admitted to ARU 06/29/22 continued rehab need following acute respiratory failure/hypoxia. At the time of D/C on 07/09/22, patient was (I) with all bed mobility. Was (I) was all functional transfers with a FWW with no cues required. He was lore to ambulate up to 150' with a FWW (I) with portable O2 at 4L. No LOB was demonstrated with gait. Patient did not require a w/c for mobility the time of D/C. He was able to ascend/descend a curb with FWW (I) and was able to negotiate 4 steps (I) with (B) handrails. Patient was able to use a risk reduction counselor to pick an item up off the floor (I). Portable O2 used for all activities at 4L and patient did require rest breaks and frequent cues for cbegxn-hah-ytigcnpsy. Roll Left to Right (QC): 6 Sit to Lying (QC): 6 Lying to Sitting/Side of Bed(Q: 6 Sit to Stand (QC): 6 Chair/Ohs-bj-Mqkaf Xfer(QC): 6 Toilet Transfer (QC): 6 Car Transfer (QC): 6 Does the Patient Walk: Yes Mode of Locomotion: Walk Anticipated Mode of Locomotion: Walk Walk 10 feet (QC): 6 Walk 50 ft with 2 Turns(QC): 6 Walk 150 ft (QC): 6 Walking 10ft on uneven surface: 6 Distance: up to 150' Gait Assistive Device: FWW Does the Pt Use a Wheelchair: No Wheel 50 ft with 2 turns (QC): 9 Wheel 150 ft (QC): 9 #of Steps: 4 1 Step (curb) (QC): 6 4 Steps (QC): 6 12 Steps (QC): 88 Balance Sitting Static: Good Balance Sitting Dynamic: Good Balance-Standing Static: Fair Picking up an Object (QC): 6 Occupational Therapy Decreased Activ Tolerance, Decreased Safety Aware, Impaired Cognition, Impaired Self-Care Skills Eating (QC): 6 Oral Hygiene (QC): 6 Shower/Bathe Self (QC): 4 Upper Body Dressing (QC): 5 Lower Body Dressing (QC): 5 On/Off Footwear (QC): 5 Toileting Hygiene (QC): 6 PT Lithographing Machine Operator Goals Lithographing Machine Operator Goals PT Lithographing Machine Operator Goals Time Frame: July 20, 2022 Roll Left to Right (QC): 6 Sit to Lying (QC): 6 Lying-Sitting on Side/Bed(QC): 6 Sit to Stand (QC): 6 Chair/Xkr-hn-Mbmsl Xfer(QC): 6 Toilet/Commode Transfer (QC): 6 Car Transfer (QC): 5 Does the Patient Walk: Yes Walk 10 feet (QC): 5 (with O2 assist as needed) Walk 10ft-Uneven Surface(QC): 5 (with FWW and O2 assist) Walk 50ft with 2 Turns (QC): 5 (with O2 assist as needed and FWW) Walk 150 ft (QC): 4 (with FWW and O2 assist, CGA due to severity of endurance deficit) Does the Pt use WC or Scooter?: No Wheel 50 feet with 2 turns (QC: 9 Wheel 150 feet: 9 1 Step (curb) (QC): 5 4 Steps (QC): 5 12 Steps (QC): 9 Picking up an Object (QC): 6 (FWW and risk reduction counselor) OT Chcf Goals Chcf Goals Time Frame: July 29, 2022 Acute change in mental status: 0 Inattention: 1 Disorganized thinkin Altered level of consciousness: 0 Eating (QC): 6 (met) Oral Hygiene (QC): 6 (met) Toileting Hygiene (QC): 6 (met) Shower/Bathe Self (QC): 6 (not met) Upper Body Dressing (QC): 6 (not met) Lower Body Dressing (QC): 6 (not met) On/Off Footwear (QC): 6 (not met) Additional Goals: 1-Demonstrate ADL Tasks, 2-Verbalize Understanding, 3- ImproveStrength/Yoanna 1=Demonstrate adherence to instructed precautions during ADL tasks. 2=Patient will verbalize/demonstrate understanding of assistive devices/modifications for ADL. 3=Patient will improve strength/tolerance for activity to enable patient to perform ADL's. Stephanie Wagner PT July 11, 2022 09:26
--- NOTE | 2022-07-11 09:31 | Therapy Team Discharge Summary ---
Therapy Discharge Summary Discharge Recommendations Date of Discharge Jul 09, 2022 at 10:25 Physical Therapy Roll Left to Right (QC): 6 Sit to Lying (QC): 6 Lying to Sitting/Side of Bed(Q: 6 Sit to Stand (QC): 6 Chair/Xxw-jw-Wiqmk Xfer(QC): 6 Toilet Transfer (QC): 5 Car Transfer (QC): 6 Does the Patient Walk: Yes Mode of Locomotion: Walk Anticipated Mode of Locomotion: Walk Walk 10 feet (QC): 6 Walk 50 ft with 2 Turns(QC): 6 Walk 150 ft (QC): 6 Walking 10ft on uneven surface: 6 Distance: 15' in room Gait Assistive Device: FWW Does the Pt Use a Wheelchair: No Wheel 50 ft with 2 turns (QC): 9 Wheel 150 ft (QC): 9 #of Steps: 4 1 Step (curb) (QC): 6 4 Steps (QC): 6 12 Steps (QC): 88 Balance Sitting Static: Good Balance Sitting Dynamic: Good Balance-Standing Static: Fair Picking up an Object (QC): 6 Occupational Therapy Pt admitted to ARU with acute on chronic resp failure with hypoxia. At [facility], pt was independent with ADLS and functional mobility, no AD. Upon initial evaluation, pt was independent with eating, required SBA-CGA with oral care, LE dressing and showering, set up UE dressing and footwear, and min-mod A with toileting. OT tx focused on increasing BUE Strength and activity tolerance, and increasing safety and independence with ADLs and functional mobility. Pt made progress towards goals, attaining LTGs for eating, oral care and toileting. Pt discharged home with spouse, d/c from OT. Decreased Activ Tolerance, Decreased Safety Aware, Impaired Cognition, Impaired Self-Care Skills Eating (QC): 6 Oral Hygiene (QC): 6 Shower/Bathe Self (QC): 4 Upper Body Dressing (QC): 5 Lower Body Dressing (QC): 5 On/Off Footwear (QC): 5 Toileting Hygiene (QC): 6 PT Usp Goals Competency Evaluated Nurse Aide Goals PT Usp Goals Time Frame: July 20, 2022 Roll Left to Right (QC): 6 Sit to Lying (QC): 6 Lying-Sitting on Side/Bed(QC): 6 Sit to Stand (QC): 6 Chair/Mfr-sg-Oqsvx Xfer(QC): 6 Toilet/Commode Transfer (QC): 6 Car Transfer (QC): 5 Does the Patient Walk: Yes Walk 10 feet (QC): 5 (with O2 assist as needed) Walk 10ft-Uneven Surface(QC): 5 (with FWW and O2 assist) Walk 50ft with 2 Turns (QC): 5 (with O2 assist as needed and FWW) Walk 150 ft (QC): 4 (with FWW and O2 assist, CGA due to severity of endurance deficit) Does the Pt use WC or Scooter?: No Wheel 50 feet with 2 turns (QC: 9 Wheel 150 feet: 9 1 Step (curb) (QC): 5 4 Steps (QC): 5 12 Steps (QC): 9 Picking up an Object (QC): 6 (FWW and trial management associate) OT Usp Goals Competency Evaluated Nurse Aide Goals Time Frame: July 29, 2022 Acute change in mental status: 0 Inattention: 1 Disorganized thinkin Altered level of consciousness: 0 Eating (QC): 6 (met) Oral Hygiene (QC): 6 (met) Toileting Hygiene (QC): 6 (met) Shower/Bathe Self (QC): 6 (not met) Upper Body Dressing (QC): 6 (not met) Lower Body Dressing (QC): 6 (not met) On/Off Footwear (QC): 6 (not met) Additional Goals: 1-Demonstrate ADL Tasks, 2-Verbalize Understanding, 3- ImproveStrength/Yoanna 1=Demonstrate adherence to instructed precautions during ADL tasks. 2=Patient will verbalize/demonstrate understanding of assistive devices/modifications for ADL. 3=Patient will improve strength/tolerance for activity to enable patient to perform ADL's. AMMY NATHAN OT July 11, 2022 09:30
== END 2022-07-09 10:25 | disposition home health service (06) | DRG 92 ==
PROVIDERS: ADMIT Internal Medicine; ATTEND Internal Medicine
DX: G72.89 Other specified myopathies (principal); D62 Acute posthemorrhagic anemia; G93.40 Encephalopathy, unspecified; J44.1 Chronic obstructive pulmonary disease with (acute) exacerbation; F10.20 Alcohol dependence, uncomplicated; Z66 Do not resuscitate; I48.91 Unspecified atrial fibrillation; I10 Essential (primary) hypertension; F41.9 Anxiety disorder, unspecified; F32.A Depression, unspecified; I25.10 Atherosclerotic heart disease of native coronary artery without angina pectoris; E78.2 Mixed hyperlipidemia; E87.6 Hypokalemia; E11.9 Type 2 diabetes mellitus without complications; F17.210 Nicotine dependence, cigarettes, uncomplicated; Z95.5 Presence of coronary angioplasty implant and graft; Z95.1 Presence of aortocoronary bypass graft; Z79.01 Long term (current) use of anticoagulants; Z79.899 Other long term (current) drug therapy; Z79.82 Long term (current) use of aspirin
CPT/HCPCS: 36415; 80053; 82947; 85007; 85025; 85027; 93005; 94640; 94760; 94761

== ENCOUNTER 2022-09-26 16:19 | Emergency (ER) | payer MEDICARE ==
[~2022-09-26 16:19] MED LIST changes: +ALPR.25T PO; +AMIO200T65 PO; +BUDE0.5A INH; +DILT180C85 PO; +FOLI1TAB33 PO; +IPRA3AMP31 INH; +NITR0.4T42 SL
[2022-09-26] MEDS ORDERED: NS IV 1000 ML 1,000 ML IV STA ×2 (16:24→17:35)
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
[2022-09-26 16:37] LABS: LYMPHOCYTES % (AUTO) 18 % (12-44); MEAN CORPUSCULAR VOLUME 102 fL (80-99)
[2022-09-26 16:39] LABS: BASOPHILS # (AUTO) 0.1 10^3/uL (0.0-0.1); BASOPHILS % (AUTO) 1 % (0-10); EOSINOPHILS # (AUTO) 0.1 10^3/uL (0.0-0.3); EOSINOPHILS % (AUTO) 2 % (0-10); HEMATOCRIT 32 % (40-54); HEMOGLOBIN 10.9 g/dL (13.3-17.7); LYMPHOCYTES # (AUTO) 1.4 10^3/uL (1.0-4.0); MEAN CORPUSCULAR HEMOGLOBIN 34 pg (25-34); MEAN CORPUSCULAR HGB CONC 34 g/dL (32-36); MEAN PLATELET VOLUME 8.6 fL (9.0-12.2); MONOCYTES # (AUTO) 0.9 10^3/uL (0.0-1.0); MONOCYTES % (AUTO) 12 % (0-12); NEUTROPHILS # (AUTO) 5.1 10^3/uL (1.8-7.8); NEUTROPHILS % (AUTO) 67 % (42-75); PLATELET COUNT 165 10^3/uL (130-400); WHITE BLOOD COUNT 7.6 10^3/uL (4.3-11.0)
[2022-09-26 16:48] LABS: ALBUMIN 3.7 GM/DL (3.2-4.5); POTASSIUM 3.8 MMOL/L (3.6-5.0)
[2022-09-26 16:50] LABS: TOTAL PROTEIN 6.9 GM/DL (6.4-8.2)
[2022-09-26 16:52] LABS: BILIRUBIN,TOTAL 0.8 MG/DL (0.1-1.0)
[2022-09-26 16:54] LABS: CREATININE SERUM 0.62 MG/DL (0.60-1.30)
--- NOTE | 2022-09-26 17:05 | Diagnostic Imaging Report ---
PROCEDURE: CT head and CT cervical spine without contrast. TECHNIQUE: Multiple contiguous axial images were obtained through the brain and cervical spine without the use of intravenous contrast. Sagittal and coronal reformations through the cervical spine were then performed. Auto Exposure Controls were utilized during the CT exam to meet ALARA standards for radiation dose reduction. INDICATION: Headache and neck pain after fall. COMPARISON: CT of the head and cervical spine on 06/19/2022. FINDINGS: The bishop-white matter differentiation is preserved. The ventricles and cortical sulci are normal. There are chronic lacunar infarct within the left basal ganglia and left thalamus. No intracranial mass or fluid collection. No midline shift or mass effect. The paranasal sinuses and mastoids are clear. The globes and orbits are normal. The skull is intact. The cervical spine demonstrates mild multilevel facet arthritis. Mild to moderate multilevel disc height loss and disc desiccation. No acute fractures Included views of the neck demonstrates bilateral carotid atherosclerosis. Mlfk-fv-iacwsasy multilevel spinal canal and neural foraminal stenosis. Included views of the lung apices demonstrates emphysema. IMPRESSION: No acute intracranial hemorrhage. No large vascular territory escalera-white loss. No intracranial mass, midline shift, or hydrocephalus. No acute fracture or dislocation of the cervical spine. Dictated by: Dictated on workstation # [id number]
--- NOTE | 2022-09-26 17:09 | Diagnostic Imaging Report ---
INDICATION: 2 days post fall, left-sided rib pain. TECHNIQUE: 3 views left ribs 4:56 PM. CORRELATION STUDY: None FINDINGS: There are displaced left lower lateral rib 8th, 9th, 10th rib fractures. May be associated prior older fracture deformities in these areas as well. Minimal adjacent pleural thickening. No definitive pneumothorax. There also appears to be likely some chronic eroded appearance about the left 1st and potentially 2nd ribs. Minimal atelectasis at the left lung base. IMPRESSION: 1. Positive for displaced left lower lateral ribs 8th, 9th and 10 fractures. There appears to be previous older adjacent healed fracture deformities in these areas as well. Dictated by: Dictated on workstation # [id number]
[2022-09-26] MEDS ORDERED: ONDANSETRON 4 MG/2 ML (SDV) Z0FRAN IVP ONE ×2 (17:30→18:00)
[2022-09-26] MEDS ORDERED: KETOROLAC 30 MG/ML VIAL IVP ONE (17:30)
[2022-09-26] MEDS ORDERED: morphine INJ 10 MG/ML 1ML (SYR OR VIAL) IVP ONE (17:30)
[2022-09-26] MEDS ORDERED: RT-ALBUTEROL/IPRATROPIUM 3 ML (DUONEB) VIAL INH ONE (18:15)
[2022-09-26 18:31] VITALS: BP 171/94
[2022-09-27] MEDS ORDERED: ACHD5005 PO (02:55)
== END 2022-09-26 18:31 | disposition home or self-care (01) ==
LOC: EDUNIT# 16:19 → ER 16:20
DX: S22.42XA Multiple fractures of ribs, left side, initial encounter for closed fracture (principal); J44.9 Chronic obstructive pulmonary disease, unspecified; F17.210 Nicotine dependence, cigarettes, uncomplicated; Z99.81 Dependence on supplemental oxygen; W01.198A Fall on same level from slipping, tripping and stumbling with subsequent striking against other object, initial encounter; Y93.01 Activity, walking, marching and hiking; Y92.000 Kitchen of unspecified non-institutional (private) residence as the place of occurrence of the external cause
CPT/HCPCS: 70450; 71100; 72125; 80053; 85025; 94640; 94664 ×2; G0480; 36415; 80320

== ENCOUNTER 2022-09-27 01:51 | Emergency (ER) | payer MEDICARE ==
[2022-09-27] MEDS ORDERED: morphine INJ 10 MG/ML 1ML (SYR OR VIAL) IM STA (02:06)
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
[2022-09-27] MEDS ORDERED: ONDANSETRON 4 MG (ZOFRAN) ORAL DISSOLVE TAB PO ONE (02:15)
[2022-09-27] MEDS ORDERED: HYDROcodone/APAP 5 MG/325 MG (LORTAB) TAB PO ONE (02:15)
[2022-09-27] MEDS ORDERED: ACHD5005 PO (02:55)
[2022-09-27] MEDS ORDERED: ANTACID SUSP 30 ML UDC (MYLANTA) PO ONE (03:00)
[2022-09-27 03:10] VITALS: BP 148/72
--- NOTE | 2022-09-27 06:59 | Diagnostic Imaging Report ---
HISTORY: Left rib pain, shortness of breath COMPARISON: 06/26/2022 TECHNIQUE: Frontal view the chest FINDINGS: Lung volumes are large. There is chronic scarring in the left lung base. Sternotomy wires and post-CABG changes are seen. No pneumothorax or pleural effusion is seen. The cardiac silhouette is stable in size. There appear to be fractures of the left 7th through 9th ribs laterally. IMPRESSION: 1. Left-sided rib fractures. Left basilar scarring/atelectasis. Dictated by: Dictated on workstation # [id number]
== END 2022-09-27 03:23 | disposition home or self-care (01) ==
LOC: EDUNIT# 01:51 → ER 01:53
DX: R07.81 Pleurodynia (principal); J43.9 Emphysema, unspecified; F17.210 Nicotine dependence, cigarettes, uncomplicated; Z99.81 Dependence on supplemental oxygen; Z95.5 Presence of coronary angioplasty implant and graft
CPT/HCPCS: 71045

== ENCOUNTER 2023-02-18 01:43 | Emergency (ER) | payer MEDICARE ==
[~2023-02-18 01:43] MED LIST changes: -GABA-490 PO; +GABA-491 PO
[2023-02-18] MEDS ORDERED: Tetanus/Diphtheria/Pertussis (Acell) ADULT Vaccine 0.5 ML IM ONE (02:00)
[2023-02-18] MEDS ORDERED: LACTATED RINGERS 1,000 ML 1,000 ML IV ONE (02:00)
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
[2023-02-18 02:13] LABS: BASOPHILS # (AUTO) 0.1 10^3/uL (0.0-0.1); BASOPHILS % (AUTO) 1 % (0-10); EOSINOPHILS # (AUTO) 0.7 10^3/uL (0.0-0.3); EOSINOPHILS % (AUTO) 10 % (0-10); HEMATOCRIT 36 % (40-54); HEMOGLOBIN 12.5 g/dL (13.3-17.7); LYMPHOCYTES # (AUTO) 1.9 10^3/uL (1.0-4.0); LYMPHOCYTES % (AUTO) 26 % (12-44); MEAN CORPUSCULAR HEMOGLOBIN 35 pg (25-34); MEAN CORPUSCULAR HGB CONC 35 g/dL (32-36); MEAN CORPUSCULAR VOLUME 101 fL (80-99); MEAN PLATELET VOLUME 8.6 fL (9.0-12.2); MONOCYTES # (AUTO) 0.8 10^3/uL (0.0-1.0); MONOCYTES % (AUTO) 12 % (0-12); NEUTROPHILS # (AUTO) 3.7 10^3/uL (1.8-7.8); NEUTROPHILS % (AUTO) 51 % (42-75); PLATELET COUNT 258 10^3/uL (130-400); WHITE BLOOD COUNT 7.2 10^3/uL (4.3-11.0)
[2023-02-18 02:32] LABS: INR 0.9 (0.8-1.4); PROTHROMBIN TIME PATIENT 12.3 SEC (12.2-14.7)
[2023-02-18 02:33] LABS: ALBUMIN 3.7 GM/DL (3.2-4.5); POTASSIUM 3.7 MMOL/L (3.6-5.0)
[2023-02-18 02:34] LABS: CALCIUM 8.8 MG/DL (8.5-10.1)
[2023-02-18 02:36] LABS: TOTAL PROTEIN 7.1 GM/DL (6.4-8.2)
[2023-02-18 02:37] LABS: BILIRUBIN,TOTAL 0.7 MG/DL (0.1-1.0)
[2023-02-18 02:39] LABS: CREATININE SERUM 0.58 MG/DL (0.60-1.30)
[2023-02-18] MEDS ORDERED: NS IV 1000 ML 1,000 ML IV SCH (03:00)
[2023-02-18] MEDS ORDERED: CATHETER FLUSH 10 ML SYR IV PRN (03:30)
[2023-02-18] MEDS ORDERED: HOLD METFORMIN - RECEIVED CONTRAST 20 ML VIAL IV SCH (03:30)
[2023-02-18] MEDS ORDERED: IOHEXOL 350 MG/ML 100 ML (OMNIPAQUE 350) VIAL IV ONE (03:30)
[2023-02-18] MEDS ORDERED: NS 100 ML (IVPB) BAG IV ONE (03:30)
[2023-02-18 05:47] LABS: CLARITY,URINE CLEAR; COLOR,URINE YELLOW; PROTEIN,URINE NEGATIVE (NEGATIVE)
[2023-02-18 05:48] LABS: BACTERIA,URINE NEGATIVE /HPF; BILIRUBIN,URINE NEGATIVE (NEGATIVE); GLUCOSE, URINE (UA) NEGATIVE (NEGATIVE); KETONES,URINE NEGATIVE (NEGATIVE); LEUKOCYTE ESTERASE ,URINE NEGATIVE (NEGATIVE); NITRITE,URINE NEGATIVE (NEGATIVE)
[2023-02-18 05:50] LABS: AMPHETAMINE SCREEN, URINE NEGATIVE (NEGATIVE); BARBITURATE SCREEN URINE NEGATIVE (NEGATIVE); CANNABINOID SCREEN, URINE NEGATIVE (NEGATIVE); COCAINE SCREEN URINE NEGATIVE (NEGATIVE); METHADONE STAT NEGATIVE (NEGATIVE); OPIATE SCREEN URINE NEGATIVE (NEGATIVE); OXYCODONE STAT NEGATIVE (NEGATIVE); TRICYCLIC ANTIDEPRESSANTS SCRE NEGATIVE (NEGATIVE)
[2023-02-18 06:06] VITALS: BP 129/58
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
== END 2023-02-18 06:24 | disposition home or self-care (01) ==
LOC: EDUNIT# 01:43 → ER 01:45
DX: S09.90XA Unspecified injury of head, initial encounter (principal); S51.812A Laceration without foreign body of left forearm, initial encounter; S51.811A Laceration without foreign body of right forearm, initial encounter; S41.112A Laceration without foreign body of left upper arm, initial encounter; S41.111A Laceration without foreign body of right upper arm, initial encounter; S61.412A Laceration without foreign body of left hand, initial encounter; S61.411A Laceration without foreign body of right hand, initial encounter; S40.212A Abrasion of left shoulder, initial encounter; S80.212A Abrasion, left knee, initial encounter; S00.91XA Abrasion of unspecified part of head, initial encounter; F10.129 Alcohol abuse with intoxication, unspecified; J90 Pleural effusion, not elsewhere classified; E87.1 Hypo-osmolality and hyponatremia; F17.210 Nicotine dependence, cigarettes, uncomplicated; Z23 Encounter for immunization; Y90.8 Blood alcohol level of 240 mg/100 ml or more; W19.XXXA Unspecified fall, initial encounter
CPT/HCPCS: 70450; 70486; 71045; 71260; 72125; 72128; 72131; 72170; 73060; 73090; 73552; 73562; 73590; 74177; 80053; 80306; 81000; 85025; 85610; 85730; 99284; A6223; G0480; 36415; 80320; 90715